=== PATIENT | male | born 1940 | race Caucasian/White ===

== ENCOUNTER 2017-06-02 14:25 | Emergency (ER) | payer MEDICARE, OTHER, SELFPAY ==
[2017-06-02 14:26] VITALS: BP 142/83; PULSE 65; RESP 16; TEMP 36.4; BMI 25.7
--- NOTE | 2017-06-02 15:11 | ED.RN ---
PT HAS RX FROM PCP FOR FLEXERIL 10MG AND IS TAKING ONE NOW FOR SPASMS.
--- NOTE | 2017-06-02 15:35 | ED.VISSUMM ---
- ER Visit Summary Date of Service: 06/02/17 Chief Complaint: Left lower back pain History of Present Illness: The patient is a 76 M no prior back surgery. Patient has had a prior AAA repair with endograft stent. He states that he is a [employer] is been working about 10 hours a day for last several weeks sitting up in a chair going over. Over the last several days he has developed left lower back pain at times radiates down his left leg. It is much worse with movement the left leg. He denies any weakness or numbness. He denies any fall or trauma. He denies any fever. He is on no blood thinners. He was seen at the [facility] urgent care today they put him on a muscle relaxant and discharged him. Denies any bowel or bladder incontinence. Physical Examination: Older male sitting upright in a hallway wheelchair. Vital signs are stable. He is afebrile. H EENT exam unremarkable neck nontender. Lungs clear to auscultation bilaterally. Heart regular rhythm no murmur. Abdomen soft nontender nondistended no giving or masses no pulsatile masses. He has absolutely no abdominal pain or complain of any abdominal pain. Extremities he is moving all 4. His increasing lower back pain on the left with movement of his left leg. Dorsi plantar flexion intact. No cauda equina. No saddle anesthesia. Upper extremities are neurovascular intact with 5 out of 5 motor strength. Clinically the patient has pain on palpation his left SI joint area. His thoracic and lumbar spine are nontender. There is no ecchymosis or bruising. No redness or warmth. Is a positive straight leg raise on the left. Dorsi and plantar flexion is intact in both lower extremities. Test Results: None Emergency Department Course and Treatment: Patient will be treated with I am morphine p.o. Zofran. Reassess. Clinically this does appear to be musculoskeletal. He is absolutely no abdominal pain or any abdominal tenderness do not think this is any do with his AAA. Repeat exam after IM morphine and Dilaudid he is feeling much better. He still has reproducible pain. His lower extremities remained neurovascularly intact there are no signs of cauda equina. He will be discharged to home on prednisone 40 mg a day for 1 week. [place] for pain. Ice to the area. Treatment Plan: Discharge to home with [place] for pain. Disposition: Discharged Impression: Acute left lower back pain secondary to acute sciatica This note was generated with [employer] dictation software. It may contain incorrect words, spelling, and punctuation that were not noted in review of the chart prior to signing ED Disposition - Plan for ED Patient: Chief Complaint: Back Referrals: Jared Cavazos MD [Primary Care Provider] -
[2017-06-02] MEDS: Ondansetron ODT 4 MG Tablet PO (15:43)
[2017-06-02] MEDS: morphine 10 MG/ML Syringe IM (15:43)
[2017-06-02] MEDS: HYDROmorphone 1 MG/ML Syringe IM (17:03)
--- NOTE | 2017-06-02 18:59 | ED.DEP ---
ED Disposition - Plan for ED Patient: Disposition: Home or Assisted Living Chief Complaint: Back Instructions: ED Sciatica Prescriptions: Hydrocodone Bitart/Apap 5-325 [[place] 5/325] 1 - 2 tab PO Q4H PRN PRN #30 tab PRN Reason: Pain Prednisone [Deltasone] 40 mg PO DAILY 7 Days tab Referrals: Jared Cavazos MD [Primary Care Provider] - 3-5 Days if not improving Additional Instructions: Ice to left back 5 times a day for 20-30 minutes each time. Prednisone 40 mg a day for the next 7 days that will decrease the inflammation. [place] for pain. 1-2 every 4-6 hours for pain as needed. Drink plenty of fluids and fruits, vegetables and fiber to prevent constipation. This should progressively improve over the next 3-5 days. If it is not getting better or getting worse follow-up your primary care physician or return to the ER if any bowel or bladder incontinence, unable to urinate or leg weakness.
--- NOTE | 2017-06-02 19:02 | DCINST.ED_ITS ---
ED Disposition - Plan for ED Patient: Disposition: Home or Assisted Living Chief Complaint: Back Instructions: ED Sciatica Prescriptions: Hydrocodone Bitart/Apap 5-325 [[place] 5/325] 1 - 2 tab PO Q4H PRN PRN #30 tab PRN Reason: Pain Prednisone [Deltasone] 40 mg PO DAILY 7 Days tab Referrals: Jared Cavazos MD [Primary Care Provider] - 3-5 Days if not improving Additional Instructions: Ice to left back 5 times a day for 20-30 minutes each time. Prednisone 40 mg a day for the next 7 days that will decrease the inflammation. [place] for pain. 1-2 every 4-6 hours for pain as needed. Drink plenty of fluids and fruits, vegetables and fiber to prevent constipation. This should progressively improve over the next 3-5 days. If it is not getting better or getting worse follow-up your primary care physician or return to the ER if any bowel or bladder incontinence, unable to urinate or leg weakness.
[2017-06-02] MEDS: predniSONE 20 MG Tablet 40 MG PO (19:15)
[2017-06-02 19:16] VITALS: BP 126/83; PULSE 93; RESP 16; O2SAT 95
== END 2017-06-02 19:22 | disposition home or self-care (01) ==
PROVIDERS: Emergency Provider Emergency Medicine; Family Provider Family Medicine; PCP Family Medicine
DX: M54.42 Lumbago with sciatica, left side (principal); I71.4 Abdominal aortic aneurysm, without rupture; Z95.828 Presence of other vascular implants and grafts; Z90.49 Acquired absence of other specified parts of digestive tract; Z79.82 Long term (current) use of aspirin; Z79.899 Other long term (current) drug therapy
CPT/HCPCS: 96372; 99283

== ENCOUNTER → 2017-08-28 09:44 | Outpatient (CLI) | payer MEDICARE, OTHER, SELFPAY ==
--- NOTE | 2017-08-28 09:56 | RAD_ITS ---
STUDY: X-RAY - LEFT SHOULDER REASON FOR EXAM: Male, 76 years old. Pain TECHNIQUE: 4 view(s) of the shoulder. COMPARISON: None. FINDINGS: Normal glenohumeral articulation. Normal acromioclavicular joint. Normal acromion. Normal humeral head and visualized proximal humerus. The soft tissue structures are unremarkable. Calcified granulomata are present at the left upper lobe of the lung. RAD/Shoulder min 2 Views IMPRESSION: Intact left shoulder Evidence of chronic granulomatous disease at the left upper lobe of the lung. Electronically Signed: Daniel Encarnacion MD at 10:41 EDT Tel , Service support ,
--- NOTE | 2017-08-28 09:56 | RAD_ITS ---
STUDY: X-RAY - RIGHT SHOULDER REASON FOR EXAM: Male, 76 years old. Pain TECHNIQUE: 4 view(s) of the shoulder. COMPARISON: None. FINDINGS: There are mild degenerative changes at the acromioclavicular joint. There is no fracture or dislocation. There is no osseous destruction. RAD/Shoulder min 2 Views IMPRESSION: Mild degenerative changes of the acromioclavicular joint Electronically Signed: Daniel Encarnacion MD at 10:39 EDT Tel , Service support ,
--- NOTE | 2017-08-28 09:56 | RAD_ITS ---
STUDY: X-RAY - PELVIS AND BILATERAL HIPS REASON FOR EXAM: Male, 76 years old. Pain TECHNIQUE: Radiological exam, hip, bilateral, with pelvis when performed; 2 views COMPARISON: None. FINDINGS: There is mild degenerative spurring at both hips. There is no fracture. There is no osseous distraction. There is no osteonecrosis. The joint spaces are well-maintained. The SI joints are intact. Surgical clips project at the groin, bilaterally. Arterial calcification. Aortoiliac endovascular stent graft. RAD/Hips B/L min 2 views w/ Pelvis IMPRESSION: Mild degenerative spurring at both hips Electronically Signed: Daniel Encarnacion MD at 10:38 EDT Tel , Service support ,
== END ==
PROVIDERS: Family Provider Family Medicine; PCP Family Medicine; Visit Provider Anesthesiology Pain Medicine
DX: M25.511 Pain in right shoulder (principal); M25.512 Pain in left shoulder; M25.551 Pain in right hip; M25.552 Pain in left hip; R10.30 Lower abdominal pain, unspecified; Z85.72 Personal history of non-Hodgkin lymphomas
CPT/HCPCS: 73030; 73521

== ENCOUNTER → 2017-09-09 10:44 | Outpatient (CLI) | payer MEDICARE, OTHER, SELFPAY ==
[2017-09-09 11:19] LABS: Absolute Lymphocyte Count 1.17 X10^3/ul (0.83-4.51); Absolute Neutrophil Count 5.3 X10^3/uL (2.0-7.7); Basophil# 0.02 X10^3/uL; Basophil% 0.3 % (0-1); Eosinophil# 0.14 X10^3/uL; Eosinophils% 1.8 % (0-5); Hematocrit 38.6 % (40-54); Lymphocyte # 1.17 X10^3/ul (4.0); Mean Corp Hgb Conc 33.7 g/gl (32-36); Mean Corpuscular Hgb 31.9 pg (27.0-32.0); Mean Corpuscular Volume 94.6 fL (80-94); Mean Platelet Vol. 9.9 fl (6.2-12.0); Monocyte# 1.13 X10^3/uL; Monocyte% 14.5 % (0-10); Neutrophil # 5.31 X10^3/uL (2.7-7.7); Neutrophil % 67.9 % (47-70); Platelet Count 191 K/mm3 (150-450); RBC Distribution Width CV 13.4 % (11.6-14.6); RBC Distribution Width SD 44.7 fl (35.1-43.9); Red Blood Count 4.08 M/mm3 (4.6-6.2); White Blood Count 7.8 K/mm3 (4.4-11.0)
[2017-09-09 11:20] LABS: POSITIVE COUNT NO; POSITIVE DIFFERENTIAL NO; POSITIVE MORPHOLOGY NO
[2017-09-09 11:42] LABS: ALB/GLOB Ratio 0.8 RATIO (0.9-2.4); AST(SGOT) 18 U/L (15-37); Alanine Aminotransfer ALT/SGPT 20 U/L (16-61); Albumin, Serum 3.4 g/dL (3.2-5.0); Alkaline Phosphatase 102 U/L (45-117); Anion Gap 5 (5-15); BUN 21 mg/dL (7-18); BUN/Creat Ratio 17.6 RATIO (10-20); Calcium,Total 8.9 mg/dL (8.5-10.1); Chloride 105 mmol/L (98-107); Creatinine, Serum 1.19 mg/dL (0.70-1.30); EST Glomerular Filtration Rate 63 mL/min (>60); Est Glom Filt Rate - Afr Amer 76 mL/min (>60); Glucose 71 mg/dL (74-106); LDH 147 U/L (87-241); Protein, Total 7.4 g/dL (6.4-8.2); Sodium Level 139 mmol/L (136-145)
[2017-09-11 03:07] LABS: Albumin 3.4 g/dL (2.9-4.4); Alpha-1-Globulins 0.3 g/dL (0.0-0.4); Alpha-2-Globulins 0.7 g/dL (0.4-1.0); Gamma Globulin 1.2 g/dL (0.4-1.8); Immunoglobulin A 139 mg/dL (61-437); Immunoglobulin G 606 mg/dL (700-1600); Immunoglobulin M 640 mg/dL (15-143); PROEL- TOTAL PROTEIN 6.6 g/dL (6.0-8.5)
[2017-09-11 09:24] LABS: Viscosity, Serum 1.7 rel.saline (1.6-1.9)
== END ==
PROVIDERS: Family Provider Family Medicine; PCP Family Medicine
DX: C88.0 Waldenstrom macroglobulinemia (principal)
CPT/HCPCS: 36415; 80053; 82784; 83615; 84165; 85025; 85810; 86334

== ENCOUNTER → 2017-09-25 09:28 | Outpatient (CLI) | payer MEDICARE, OTHER, SELFPAY ==
[2017-09-25 10:50] LABS: Hematocrit 40.6 % (40-54); Hemoglobin 13.9 g/dl (13.0-16.5); Mean Corp Hgb Conc 34.2 g/gl (32-36); Mean Corpuscular Hgb 32.4 pg (27.0-32.0); Mean Corpuscular Volume 94.6 fL (80-94); Mean Platelet Vol. 10.3 fl (6.2-12.0); Platelet Count 154 K/mm3 (150-450); RBC Distribution Width CV 13.8 % (11.6-14.6); RBC Distribution Width SD 45.9 fl (35.1-43.9); Red Blood Count 4.29 M/mm3 (4.6-6.2); Scan Indicated on CBC? Y/N NO; White Blood Count 7.1 K/mm3 (4.4-11.0)
[2017-09-25 11:05] LABS: BUN 23 mg/dL (7-18); Creatinine, Serum 1.15 mg/dL (0.70-1.30); Glucose 90 mg/dL (74-106)
[2017-09-25 11:06] LABS: Anion Gap 5 (5-15); Calcium,Total 8.7 mg/dL (8.5-10.1); Chloride 104 mmol/L (98-107); EST Glomerular Filtration Rate 66 mL/min (>60); Est Glom Filt Rate - Afr Amer 79 mL/min (>60); Sodium Level 140 mmol/L (136-145)
== END ==
PROVIDERS: Family Provider Family Medicine; PCP Family Medicine; Visit Provider Physician Assistant
DX: Z01.810 Encounter for preprocedural cardiovascular examination (principal); Z01.818 Encounter for other preprocedural examination
CPT/HCPCS: 36415; 80048; 85027; 93005

== ENCOUNTER → 2017-12-17 08:10 | Outpatient (CLI) | payer MEDICARE, OTHER, SELFPAY ==
[2017-12-17 09:26] LABS: Absolute Lymphocyte Count 0.95 X10^3/ul (0.83-4.51); Absolute Neutrophil Count 4.4 X10^3/uL (2.0-7.7); Basophil# 0.01 X10^3/uL; Basophil% 0.2 % (0-1); Eosinophil# 0.11 X10^3/uL; Eosinophils% 1.8 % (0-5); Hematocrit 37.6 % (40-54); Hemoglobin 12.7 g/dl (13.0-16.5); Lymphocyte # 0.95 X10^3/ul (4.0); Lymphocyte % 15.7 % (19-41); Mean Corp Hgb Conc 33.8 g/gl (32-36); Mean Corpuscular Hgb 31.9 pg (27.0-32.0); Mean Corpuscular Volume 94.5 fL (80-94); Mean Platelet Vol. 10.4 fl (6.2-12.0); Monocyte# 0.61 X10^3/uL; Neutrophil # 4.37 X10^3/uL (2.7-7.7); Platelet Count 185 K/mm3 (150-450); RBC Distribution Width CV 13.1 % (11.6-14.6); RBC Distribution Width SD 43.9 fl (35.1-43.9); Red Blood Count 3.98 M/mm3 (4.6-6.2); White Blood Count 6.1 K/mm3 (4.4-11.0)
[2017-12-17 09:28] LABS: POSITIVE COUNT NO; POSITIVE DIFFERENTIAL NO; POSITIVE MORPHOLOGY NO
[2017-12-17 09:51] LABS: ALB/GLOB Ratio 0.9 RATIO (0.9-2.4); AST(SGOT) 16 U/L (15-37); Alanine Aminotransfer ALT/SGPT 20 U/L (16-61); Albumin, Serum 3.2 g/dL (3.2-5.0); Alkaline Phosphatase 101 U/L (45-117); Anion Gap 8 (5-15); BUN 24 mg/dL (7-18); BUN/Creat Ratio 22.4 RATIO (10-20); Calcium,Total 8.5 mg/dL (8.5-10.1); Chloride 108 mmol/L (98-107); Creatinine, Serum 1.07 mg/dL (0.70-1.30); EST Glomerular Filtration Rate 71 mL/min (>60); Est Glom Filt Rate - Afr Amer 86 mL/min (>60); Globulin 3.5 g/dL (2.2-4.2); Glucose 95 mg/dL (74-106); LDH 194 U/L (87-241); Potassium 3.9 mmol/L (3.5-5.1); Protein, Total 6.7 g/dL (6.4-8.2); Sodium Level 143 mmol/L (136-145)
[2017-12-28 06:07] LABS: Albumin 3.4 g/dL (2.9-4.4); Alpha-1-Globulins 0.2 g/dL (0.0-0.4); Alpha-2-Globulins 0.6 g/dL (0.4-1.0); Immunoglobulin A 127 mg/dL (61-437); Immunoglobulin G 660 mg/dL (700-1600); Immunoglobulin M 582 mg/dL (15-143); PROEL- TOTAL PROTEIN 6.2 g/dL (6.0-8.5)
[2017-12-28 09:34] LABS: Viscosity, Serum 1.6 rel.saline (1.6-1.9)
== END ==
PROVIDERS: Family Provider Family Medicine; PCP Family Medicine
DX: C88.0 Waldenstrom macroglobulinemia (principal)
CPT/HCPCS: 36415; 80053; 82784; 83615; 84165; 85025; 85810; 86334

== ENCOUNTER → 2018-01-29 08:46 | Outpatient (CLI) | payer MEDICARE, OTHER, SELFPAY ==
--- NOTE | 2018-01-29 08:50 | MRI_ITS ---
STUDY: MRI LEFT SHOULDER REASON FOR EXAM: Male, 77 years old. Left shoulder pain. TECHNIQUE: Standardized fat and water weighted pulse sequences were obtained in all 3 orthogonal planes. COMPARISON: X-ray August 28, 2017 FINDINGS: Tendinosis of the supraspinatus with thickening and partial bursal surface fraying and tear, series 4 images through . There is infraspinatus tendinosis with tendon thickening, but without a demonstrated tendon tear. Normal subscapularis tendon. Normal teres minor tendon. Normal supraspinatus muscle. Normal infraspinatus muscle. Normal subscapularis muscle. Normal teres minor muscle. There is a small volume joint effusion of the glenohumeral joint. Normal humeral head and visualized proximal humerus. Normal biceps labral complex. Normal intracapsular long biceps tendon. Normal labrum. Normal capsulo- ligamentous complex. Normal rotator interval. 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 There is a Type II morphology (curved) acromion, with a neutral orientation. There is minimal fluid distention of the subacromial bursa, consistent with mild subacromial-subdeltoid bursitis. Normal visualized coracohumeral and coracoacromial ligaments. Normal quadrilateral space. Normal axillary space. Normal deltoid muscle. Normal trapezius muscle. MRI/Upper Ext Joint Only(Routine) IMPRESSION: Tendinosis with partial tear of the distal supraspinatus. No full-thickness rotator cuff tear. Acromioclavicular spurring with impingement. Subacromial subdeltoid bursitis. Electronically Signed: Carlos Jean MD at 12:14 EST , Service support ,
--- OUTSIDE RECORDS SUMMARY | 2018-05-04 08:58 | XMS RPT_ITS ---
:1940 Author Organization OHIP Support Name Relationship Address Phone RAMSES MONCADA Unavailable [address] + [place] [address] LONG COOK SAMSA Unavailable [address] + [place] [address] WELLS, JATINDER Unavailable Unavailable + [place] [address] ANTWAN, RAMSES Unavailable [address] + [place] [address] LONG COOK SAMSA Unavailable [address] + [place] [address] WELLS, JATINDER Unavailable Unavailable + [place] [address] ANTWAN, RAMSES Unavailable [address] + [place] [address] LONG COOK SAMSA Unavailable [address] + [place] [address] WELLS, JATINDER Unavailable . + UNKNOWN, U ANTWAN, RAMSES Unavailable [address] + [place] [address] LONG COOK SAMSA Unavailable [address] + [place] [address] WELLS, JATINDER Unavailable . + UNKNOWN, U ANTWAN, RAMSES Unavailable [address] + [place] [address] EDU CHRISTIANO Unavailable Unavailable Unavailable ANTWAN, RAMSES Unavailable [address] + [place] [address] LONG COOK SAMSA Unavailable [address] + [place] [address] WELLS, JATINDER Unavailable . + UNKNOWN, U ANTWAN, RAMSES Unavailable [address] + [place] [address] LONG COOK SAMSA Unavailable [address] + [place] [address] JATINDER SORENSEN Unavailable . + UNKNOWN, U ANTWAN, RAMSES Unavailable [address] + [place] [address] LONG COOK SAMSA Unavailable [address] + [place] [address] ANTWAN, RAMSES Unavailable [address] + [place] [address] LONG COOK SAMSA Unavailable [address] + [place] [address] ANTWAN, RAMSES Unavailable [address] + [place] [address] LONG COOK SAMSA Unavailable [address] + [place] [address] ANTWAN, RAMSES Unavailable [address] [phone] [place] [address] LONG COOK SAMSA Unavailable [address] + [place] [address] ANTWAN, RAMSES Unavailable [address] [phone] [place] [address] LONG COOK SAMSA Unavailable [address] + [place] [address] ANTWAN, RAMSES Unavailable [address] + [place] [address] EDU, CHRISTIANO Unavailable Unavailable Unavailable ANTWAN, RAMSES Unavailable [address] + [place] [address] EDU CHRISTIANO Unavailable Unavailable Unavailable Care Team Providers Name Role Phone Kaden Ortiz Attending Unavailable Jared Robertson Referring Unavailable ADA DAVIS Attending Unavailable Jared Robertson Primary Care Unavailable Chemo Juarez Attending Unavailable Jared Robertson Referring Unavailable Jared Robertson Primary Care Unavailable Jared Robertson Primary Care Unavailable Jared Rojas Attending Unavailable Jared Peñaloza Attending Unavailable Jared Peñaloza Referring Unavailable Jared Robertson Primary Care Unavailable ADA DAVIS Attending Unavailable Jared Robertson Primary Care Unavailable ADA DAVIS Referring Unavailable Chay Pink Attending Unavailable Jared Robertson Referring Unavailable Shadi Cesar Attending Unavailable Shadi Cesar Referring Unavailable Jared Robertson Primary Care Unavailable Jaxson Kenyon Attending Unavailable Shadi Cesar Referring Unavailable ADA DAVIS Attending Unavailable Marcelo, Jared Primary Care Unavailable ADA DAVIS Referring Unavailable Prebish, Karla MERCHANDISE PRESENTATION MANAGER-C Attending Unavailable Prebish, Karla MERCHANDISE PRESENTATION MANAGER-C Referring Unavailable Marcelo, Jared Primary Care Unavailable SUZETTE JIN Attending Unavailable SUZETTE JIN Referring Unavailable MARCELO, JARED A Primary Care Unavailable SZUETTE JIN Attending Unavailable SUZETTE JIN Referring Unavailable FAST, ARMIN A Primary Care Unavailable SUZETTE JIN Attending Unavailable FAST, ARMIN A Referring Unavailable FAST, ARMIN A Primary Care Unavailable MALIKA ROBERTSONREY A Attending Unavailable MARCELO, JARED A Referring Unavailable ALBA AQUINO ([facility]) Attending Unavailable MARCELO, JARED A Referring Unavailable MARCELO, JARED A Referring Unavailable JARED ROBERTSON A Attending Unavailable MARCELO JARED A Referring Unavailable HARRISON ROJAS Attending Unavailable Marcelo, Jared A Referring Unavailable Marcelo, Jared A Primary Care Unavailable HARRISON ROJAS Attending Unavailable Marcelo, Ajred A Referring Unavailable Marcelo, Jared A Primary Care Unavailable HARRISON ROJAS Attending Unavailable MARCELO JARED A Referring Unavailable PROBLEMS PROBLEMS DATE TYPE CONDITION / CODE ATTENDING STATUS SOURCE Active Disorder of arteries NA Active [facility] 8 and arterioles, Clinic Main unspecified / [facility] I77.9(ICD-10) Repository Active Other senior care [facility] 7 (current) drug therapy Clinic Main / Z79.899(ICD-10) [facility] Repository Active Gastro-esophageal NA [facility] 7 reflux disease without Clinic Main esophagitis / [place] K21.9(ICD-10) Repository Active 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, unspecified Clinic Main site / C83.00(ICD-10) [facility] Repository Active Disorder of prostate, NA [facility] 6 unspecified / Clinic Main N42.9(ICD-10) [facility] Rep[facility] Active Thrombocytopenia, NA Active [facility] 6 unspecified / Clinic Main D69.6(ICD-10) [facility] Repository Active Anemia, unspecified / NA Active [place] [address] D64.9(ICD-10) [facility] Main [facility] Repository Active Atherosclerotic heart NA Active [facility] 6 disease of shinnecock [facility] Main coronary artery [facility] without angina Repository pectoris / I25.10(ICD-10) Active Coronary NA Active [facility] 6 atherosclerosis due to [facility] Main lipid rich plaque / [place] I25.83(ICD-10) Repository Active Mixed hyperlipidemia / NA Active [facility] 6 E78.2(ICD-10) [facility] Main [facility] Repository Unknown Z01.810 - Encounter KostasJaxson dunn Active [facility] 8 for preprocedural [facility] examination / Repository Z01.810(ICD-10) Unknown 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 - [place]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 / [facility] C88.0(ICD-10) Hospital Repository Active Unknown / UNK(Unknown) HARRISON ROJAS Active [facility] 8 [facility] Repository Admitting Unknown / UNK(Unknown) HARRISON ROJAS Active [place] [address] diagnosis [facility] Repository Unknown M54.32 - [facility] side / [facility] M54.32(ICD-10) Hospital Repository Admitting GiovannitrSUZETTE Saavedra Active [place] [address] diagnosis macroglobulinemia [facility] ([facility]) / C88.0(ICD-10) [facility] Repository PROCEDURES PROCEDURES No Procedure Records FoundRESULTS RESULTS UPPER EXT JOINT Observed: 01/29/2018 Status: F Source: [place] ONLY(ROUTINE) 8:51 AM [facility] REPOSITORY [facility] Imaging Services [address] [place] [address] Upper Ext Joint Only(Routine) MR#: [id number] Acct: [id number] Name: CHRISTIANO SORENSEN Rep #: [id number] : 1940 M 77 From: Carlos Jean MD PCP: Jared Robertson MD Status: REG CLI Study: Upper Ext Joint Only(Routine) Date of Exam: 01/29/18 Exam# [id number] Ordering Dr: Karla Oneil MERCHANDISE PRESENTATION MANAGER-Jadon STUDY: MRI LEFT SHOULDER REASON FOR EXAM: Male, 77 years old. Left shoulder pain. TECHNIQUE: Standardized fat and water weighted pulse sequences were obtained in all 3 orthogonal planes. COMPARISON: X-ray August 28, 2017 FINDINGS: Tendinosis of the supraspinatus with thickening and partial bursal surface fraying and tear, series 4 images through . There is infraspinatus tendinosis with tendon thickening, but without a demonstrated tendon tear. Normal subscapularis tendon. Normal teres minor tendon. Normal supraspinatus muscle. Normal infraspinatus muscle. Normal subscapularis muscle. Normal teres minor muscle. There is a small volume joint effusion of the glenohumeral joint. Normal humeral head and visualized proximal humerus. Normal biceps labral complex. Normal intracapsular long biceps tendon. Normal labrum. Normal capsulo- ligamentous complex. Normal rotator interval. 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 There is a Type II morphology (curved) acromion, with a neutral orientation. There is minimal fluid distention of the subacromial bursa, consistent with mild subacromial-subdeltoid bursitis. Normal visualized coracohumeral and coracoacromial ligaments. Normal quadrilateral space. Normal axillary space. Normal deltoid muscle. Normal trapezius muscle. MRI/Upper Ext Joint Only(Routine) IMPRESSION: Tendinosis with partial tear of the distal supraspinatus. No full-thickness rotator cuff tear. Acromioclavicular spurring with impingement. Subacromial subdeltoid bursitis. Electronically Signed: Carlos Jean MD at 12:14 EST , Service support , CC: Jared Robertson MD; Karla ROSALES [facility] Fisheries Management Biologist: Signed CBC W/DIFF, AUTOMATED Collected: 12/17/2017 Status: F Source: [place] 8:30 AM [facility] REPOSITORY Order Comment: FOR CRITICALS CALL [phone] TYPE CODE TESTS RESULT OUT OF RANGE REFERENCE UNITS LAB L100.1000 4.4-11.0 K/mm3 Normal WBC 6.1 LAB L100.1200 4.6-6.2 M/mm3 Low RBC 3.98 LAB L100.1300 13.0-16.5 g/dl Low HGB 12.7 LAB L100.1400 40-54 % Low HCT 37.6 LAB L100.1500 80-94 fL High MCV 94.5 LAB L100.1600 27.0-32.0 pg Normal MCH 31.9 LAB L100.1700 32-36 g/gl Normal MCHC 33.8 LAB L100.1810 11.6-14.6 % Normal RDW CV 13.1 LAB L100.1820 35.1-43.9 fl Normal RDW SD 43.9 LAB L100.1900 150-450 K/mm3 Normal PLT 185 LAB L100.2000 6.2-12.0 fl Normal MPV 10.4 LAB L100.2100 47-70 % High NEUT% 72.0 LAB L100.2200 19-41 % Low LY% 15.7 LAB L100.2300 0-10 % Normal MONO% 10.0 LAB L100.2400 0-5 % Normal EO% 1.8 LAB L100.2500 0-1 % Normal BASO% 0.2 LAB L100.2550 0.0-0.9 % Normal IM GRAN % 0.300 Result Comment: IG% - Immature Granulocytes (promyelocytes, myelocytes and metamyelocytes) > 1% indicates that a LEFT SHIFT is Present. LAB L100.2620 2.0-7.7 X10 3/uL Normal Absolute Neut 4.4 LAB L100.2720 0.83-4.51 X10 3/ul Normal Absolute Lymph 0.95 Performed By: #### L100.0100 #### [facility] [place], [address] COMPREHENSIVE METABOLIC Collected: 12/17/2017 Status: F Source: [place] PROFIL 8:30 AM [facility] REPOSITORY Order Comment: FOR CRITICALS CALL [id number] Serial Specimen #1, #2 or #3? 1 TYPE CODE TESTS RESULT OUT OF RANGE REFERENCE UNITS LAB L501.0100 74-106 mg/dL Normal GLU 95 Result Comment: Slight Lipemia, Result may be falsely increased. Please note revised GLUCOSE reference range effective 2017. LAB L501.1000 7-18 mg/dL High BUN 24 Result Comment: Slight Lipemia, Result may be falsely increased. LAB L501.1100 0.70-1.30 mg/dL CREAT,SERUM Normal 1.07 Result Comment: Slight Lipemia, Result may be falsely increased. The validity of the calculated GFR AND GFRAA in patients over 70 years has not been determined. Clinical correlation is essential. LAB L501.1110 >60 mL/min Normal EST GFR 71 Result Comment: Non- GFR Calc LAB L501.1115 >60 mL/min Normal EST GFR - AA 86 Result Comment: GFR Calc LAB L501.1300 10-20 RATIO High BUN/CRE 22.4 LAB L501.1500 6.4-8.2 g/dL T Normal PROT 6.7 Result Comment: Slight Lipemia, Result may be falsely increased. LAB L501.1800 3.2-5.0 g/dL Normal ALB 3.2 LAB L501.1950 2.2-4.2 g/dL Normal GLOB 3.5 LAB L501.2000 0.9-2.4 RATIO Normal A/G 0.9 LAB L501.2200 8.5-10.1 mg/dL Normal CA 8.5 Result Comment: Slight Lipemia, Result may be falsely increased. LAB L501.4100 15-37 U/L Normal AST 16 Result Comment: Slight Lipemia, Result may be falsely increased. LAB L501.4305 45-117 U/L Normal ALK P 101 LAB L501.4405 16-61 U/L Normal ALT 20 Result Comment: Slight Lipemia, Result may be falsely increased. LAB L501.4600 0.20-1.00 mg/dL Normal T BILI 0.60 Result Comment: Slight Lipemia, Result may be falsely increased. LAB L501.5300 136-145 mmol/L Normal NA 143 LAB L501.5600 3.5-5.1 mmol/L Normal K 3.9 Result Comment: Slight Lipemia, Result may be falsely increased. LAB L501.5900 98-107 mmol/L High CL 108 LAB L501.6100 21.0-32.0 mmol/L Normal CO2 27.0 Result Comment: Slight Lipemia, Result may be falsely increased. LAB L501.6200 5-15 Normal GAP 8 Performed By: #### L500.4050, L504.2610 #### [facility] [address] [place], [address] LDH Collected: 12/17/2017 Status: F Source: [place] 8:30 AM [facility] REPOSITORY Order Comment: FOR CRITICALS CALL [phone] Serial Specimen #1, #2 or #3? 1 TYPE CODE TESTS RESULT OUT OF RANGE REFERENCE UNITS LAB L504.2610 87-241 U/L Normal LDH 194 Result Comment: Slight Lipemia, Result may be falsely increased. Performed By: #### L500.4050, L504.2610 #### [facility] [address] [place], [place], [address] YASIR + PROTEIN ELECT, Collected: 12/17/2017 Status: F Source: [place] SERUM 8:30 AM [facility] REPOSITORY Order Comment: Is Patient Fasting? N TYPE CODE TESTS RESULT OUT OF RANGE REFERENCE UNITS LAB L3100.3500 6.0-8.5 g/dL Normal PROTEIN,TOTAL 6.2 LAB L3200.6985 850-3814 mg/dL Low IMMUNO G 660 LAB L3200.1400 61-437 mg/dL Normal IMMUNO A 127 LAB L3200.1500 15-143 mg/dL High IMMUNOGL M 582 LAB L3200.1510 2.9-4.4 g/dL Normal ALBUMIN 3.4 LAB L3200.1520 0.0-0.4 g/dL Normal BVUYP-1-JRWR 0.2 LAB L3200.1530 0.4-1.0 g/dL Normal OTFLH-7-SPTB 0.6 LAB L3200.1540 0.7-1.3 g/dL Normal BETA GLOBULIN 0.9 LAB L3200.1550 0.4-1.8 g/dL Normal GAMMA GLOBULIN 1.0 LAB L3200.1560 Not Observed g/dL High M-SPIKE 0.6 LAB L3200.1570 2.2-3.9 g/dL Normal GLOBULIN, 2.8 TOTAL LAB L3200.1580 0.7-1.7 Normal A/G RATIO 1.3 LAB L3200.1590 . Normal YASIR RESULT,S Comment Result Comment: Immunofixation shows IgM monoclonal protein with kappa light chain specificity. LAB L3200.1594 . Normal NOTE: Comment Result Comment: Protein electrophoresis scan will follow via computer, mail, or mailroom supervisor delivery. Performed By: #### L3100.3425, L3410.1700 #### [facility] (refer to report for specific site) refer to report for address and phone number VISCOSITY, SERUM Collected: 12/17/2017 Status: F Source: [place] 8:30 AM [facility] REPOSITORY Order Comment: Is Patient Fasting? N TYPE CODE TESTS RESULT OUT OF RANGE REFERENCE UNITS LAB L3410.1700 1.6-1.9 rel.saline Normal 1.6 VISCOSITY,S4 861 Result Comment: Values above 2.7 may indicate paraproteinemia is present. This test was developed and its performance characteristics determined by [facility]. It has not been cleared or approved by the Food and Drug Administration. Performed at: [address] [id number] [place] Cutter: Juni Mac PhD, Phone: [phone] Performed at: [facility] [id number] [place] C[place]: Kennedi Vargas MD, Phone: [phone] Performed By: #### L3100.3425, L3410.1700 #### [facility] (refer to report for specific site) refer to report for address and phone number PROGRESS Observed: 11/18/2017 Status: COMPLETED Source: [place] 9:40 AM [facility] [place] REPOSITORY HNO ID: [id number] Author: Jared Robertson Service: (none) Author Type: Physician Type: Progress Notes Filed: 11/18/2017 9:36 PM Note Text: Medicare Yearly Visit Medical B eligibilty date 11/15/2005 Date of last exam na PAST MEDICAL HISTORY Diagnosis Date - AAA (abdominal aortic aneurysm) (HCC) - Abdominal pain, left upper quadrant - Allergic rhinitis, cause unspecified - Benign neoplasm of colon - Bronchitis, not specified as acute or chronic - Cardiac dysrhythmia, unspecified - Coronary atherosclerosis of unspecified type of vessel, shinnecock or graft - Degeneration of lumbar or lumbosacral intervertebral disc - Diaphragmatic hernia without mention of obstruction or gangrene - Enlargement of lymph nodes - Esophageal reflux - Hx of carotid stenosis - Impotence of organic origin - Irritable bowel syndrome - Lumbago - Other and unspecified hyperlipidemia - Other dyspnea and respiratory abnormality - Other malaise and fatigue - past medical history skin cancer forehead--unsure which kind - Psoriasis - Subclavian artery stenosis, right (HCC) 06/17/2017 US 06/16/2017 50-99% - Thrombocytopenia, unspecified (HCC) - Unspecified constipation PAST SURGICAL HISTORY Procedure Laterality Date - 2D ECHO (EXEP) 01/30/14 EF=60%, LVH, no valve abnormalities - COLONOSCOPY 09/21/2014 Dr. Bright, polyp, repeat 3 yrs - COLONOSCOPY W/BX 11/22/07 - ENDOSCOPY UPPER-EGD/M24 - LAP CHOLECYSTECT/CHOLANGIOGRAPHY 04-12-09 - PAST SURGICAL HISTORY OF 11/2014 AAA repair - PAST SURGICAL HISTORY OF 2015 both eyes cataract removal. - PAST SURGICAL HISTORY OF 10/13/2017 right shoulder surgery per [facility] - REPAIR UMBILICAL RENÉE,5+Y/O,REDUC 04-12-09 - STRESS TEST 02/27/2014 WNL Patient has no known allergies. Medications reviewed: Yes FAMILY HISTORY Problem Relation Age of Onset - Multiple Sclerosis Brother living - Colon Cancer Father 74 of metastatic brain CA - Diabetes Father - other (schiophrenia) Sister doing ok since e;ectroshock - Alzheimer's Disease Mother SOCIAL HISTORY: Social History Marital status: Single Spouse name: Years of education: Number of children: Social History Main Topics Smoking status: Former Smoker Packs/day: 1.00 Years: 8.00 Quit date: 02/15/1974 Smokeless tobacco: Never Used Comment: NO EXPOSURE TO 2ND HAND SMOKE Alcohol use: Yes Comment: occasionally Drug use: No Sexual activity: Yes Partners with: Female Christiano denies regular aerobic exercise. He watches his diet for sodium, low fat and low cholesterol most of the time. List of current specialists seen: Dr. Olga Dr, Dr Rojas [place] [facility] Live Planning discussed including patients advanced directive wishes: Yes I am willing to follow Christiano's advanced directives. Depression screen He in the past two weeks admits to having felt down due to the right shoulder pain Functional Ability/Safety Screen 1. Was the patient's timed Up and Go test unsteady or longer than 30 seconds? No 2. Does the patient need help with the phone, transportation, shopping,preparing meals, housework, laundry, medications or managing money? No 3. Does your home have rugs in the hallway(Y), lack of grab bars in the bathroom(Y), lack of handrails on the stairs or have poor lighting? No Hearing Evaluation: normal PHYSICAL EXAM BP 108/68 (BP Site: Right Arm, BP Position: Sitting, BP Cuff Size: Regular Adult) Pulse 76 Temp 36.6 ?C (97.9 ?F) (Tympanic) Resp 16 Ht 183 cm (6' 0.05) Wt 80.3 kg (177 lb) BMI 23.97 kg/m? Alert and oriented X 3: YES Body mass index is 23.97 kg/m?. See below ASSESSMENT/PLAN: 76 year old male The following prevention plan was discussed during the office visit and provided to the patient: See below Jared Robertson MD Chief Complaint Patient presents with: Physical: 6 month HPI Christiano Sorensen is a 76 year old male who presents here today for extensive exam. Patient with Hx of AAA s/p repair, subclavian artery stenosis and carotid artery disease recently seen Dr. Rojas for f/u and no concerns or changes. GERD, Hyperlipidemia, MLL as well as those reviewed and addressed below. Was seen by MERCHANDISE PRESENTATION MANAGER in the past few months for low back pain. Saw [facility] and was told he has disease but nothing at this time that was surgical. Was having right shoulder pain and had a MRI and felt to have a rotator cuff tear. Had surgery but once in no tears so joint space was cleaned up. Just got out of the sling and was just placed on gabapentin for pain and sleep and tramadol for pain. Now having left shoulder pain. 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 Past medical history, appointments, medications, allergies reviewed. Previous Medical History PAST MEDICAL HISTORY Diagnosis Date - AAA (abdominal aortic aneurysm) (HCC) - Abdominal pain, left upper quadrant - Allergic rhinitis, cause unspecified - Benign neoplasm of colon - Bronchitis, not specified as acute or chronic - Cardiac dysrhythmia, unspecified - Coronary atherosclerosis of unspecified type of vessel, shinnecock or graft - Degeneration of lumbar or lumbosacral intervertebral disc - Diaphragmatic hernia without mention of obstruction or gangrene - Enlargement of lymph nodes - Esophageal reflux - Hx of carotid stenosis - Impotence of organic origin - Irritable bowel syndrome - Lumbago - Other and unspecified hyperlipidemia - Other dyspnea and respiratory abnormality - Other malaise and fatigue - past medical history skin cancer forehead--unsure which kind - Psoriasis - Subclavian artery stenosis, right (HCC) 06/17/2017 US 06/16/2017 50-99% - Thrombocytopenia, unspecified (HCC) - Unspecified constipation Previous Surgical History PAST SURGICAL HISTORY Procedure Laterality Date - 2D ECHO (EXEP) 01/30/14 EF=60%, LVH, no valve abnormalities - COLONOSCOPY 09/21/2014 Dr. Bright, polyp, repeat 3 yrs - COLONOSCOPY W/BX 11/22/07 - ENDOSCOPY UPPER-EGD/M24 - LAP CHOLECYSTECT/CHOLANGIOGRAPHY 04-12-09 - PAST SURGICAL HISTORY OF 11/2014 AAA repair - PAST SURGICAL HISTORY OF 2015 both eyes cataract removal. - PAST SURGICAL HISTORY OF 10/13/2017 right shoulder surgery per [facility] - REPAIR UMBILICAL RENÉE,5+Y/O,REDUC 04-12-09 - STRESS TEST 02/27/2014 WNL Family History FAMILY HISTORY Problem Relation Age of Onset - Multiple Sclerosis Brother living - Colon Cancer Father 74 of metastatic brain CA - Diabetes Father - other (schiophrenia) Sister doing ok since e;ectroshock - Alzheimer's Disease Mother Patient Allergies ALLERGIES No Known Allergies Current Medications Current Outpatient Prescriptions on File Prior to Visit: metroNIDAZOLE 1 % gel Apply 1 application to affected area once daily. Location: face tamsulosin ER (FLOMAX) 0.4 mg cp24 Take 1 capsule by mouth once daily. gabapentin (NEURONTIN) 300 mg capsule Take 1 capsule by mouth twice daily as needed. cetirizine (ZYRTEC) 10 mg tablet Take 1 tablet by mouth once daily. MEDICATION, NON-DATABASE Takes med for digestive problems but pt doesn't remember name rosuvastatin (CRESTOR) 20 mg tablet Take 20 mg by mouth once daily. aspirin(ASPIR-81 81 MG TAB) One tabs every morning esomeprazole (NEXIUM) 20 mg capsule Take 1 capsule by mouth twice daily before meals. Per Gastro (Patient not taking: Reported on 11/18/2017 ) No current facility-administered medications on file prior to visit. Social History Social History Marital status: Single Spouse name: Years of education: Number of children: Social History Main Topics Smoking status: Former Smoker Packs/day: 1.00 Years: 8.00 Quit date: 02/15/1974 Smokeless tobacco: Never Used Comment: NO EXPOSURE TO 2ND HAND SMOKE Alcohol use: Yes Comment: occasionally Drug use: No Sexual activity: Yes Partners with: Female Review of Symptoms REVIEW OF SYSTEMS GENERAL: No malaise or fevers. No night sweats. Has loss 20 lbs in the last 4-5 months (potential side affect from the oxycodone he was on) Has stabilized in the past weak or two. HEENT: Negative for frequent or significant headaches, significant change in vision, significant vision problems, significant ear problems or hearing loss, nasal discharge, or nose bleeds, sore throat, difficulty swallowing, mouth lesions, hoarseness NECK: Negative for lumps, goiter, pain and significant neck swelling. occasional pain on the left side of neck RESPIRATORY: Negative for cough, hemoptysis, wheezing, COPD, dyspnea or shortness of breath CARDIOVASCULAR: Negative for chest pain, leg swelling, hypertension, CHF or palpitations GI: No vomiting, No heartburn or reflux symptoms as long as he takes his pepcid. Has breakthrough GERD on occasion. Diarrhea has been same and takes metamucil : No history of dysuria or blood. Has a slow stream and not taking the flomax daily. MUSCULOSKELETAL: see HPI SKIN: Negative for lesions, rash, and itching PSYCH: see medicare section. Not sleeping well HEMATOLOGY/LYMPHOLOGY: Negative for prolonged bleeding, bruising easily or swollen nodes ENDOCRINE: Negative for cold or heat intolerance, polyuria, polydipsia and goiter NEURO: No history of frequent headaches, syncope, paralysis, seizures. Has a tremor in the left hand with witting and has been slightly worse. EXAM: BP 108/68 (BP Site: Right Arm, BP Position: Sitting, BP Cuff Size: Regular Adult) Pulse 76 Temp 36.6 ?C (97.9 ?F) (Tympanic) Resp 16 Ht 183 cm (6' 0.05) Wt 80.3 kg (177 lb) BMI 23.97 kg/m? General Appearance: Well appearing, alert, in no acute distress, well-hydrated, well nourished.. Skin: Skin color, texture, turgor normal, no suspicious rashes or lesions. Head: Normocephalic, no masses, lesions, tenderness or abnormalities. Eyes: Anicteric sclera. Pupils are equally round and reactive to light. Extraocular movements are intact. . Ears: External ears normal, canals clear. Nose/Sinuses: Nares normal, septum midline, mucosa normal, no drainage or sinus tenderness. Oropharynx: Lips, mucosa, and tongue normal, teeth and gums normal, oropharynx normal. Neck: Supple, no adenopathy; thyroid symmetric, normal size, no bruits. Lungs: Lungs clear to auscultation. No wheezing, rhonchi, rales. Heart: RRR without murmur, gallop, or rubs. No ectopy. Abdomen: Normal abdominal exam, Abdomen soft, non-tender. Bowel sounds normal. No masses, organomegaly. Extremities: No deformities, edema, skin discoloration. Musculoskeletal: Muscular strength intact, No joint swelling, deformity Has decreased ROM in the left shoulder with pain on abduction and forward flexion Peripheral Pulses: Normal. Neurologic: Gait normal. Reflexes normal and symmetric. Sensation to light touch and crainal nerves 2-12 intact.. Genitalia: Normal, Penis normal. No urethral discharge. Scrotum normal to palpation. No hernia. Foreskin retractable. Rectal: Deferred exam per patient request. Health Maintenance List INFLUENZA(1) due on 10/16/2017 STATIN MED ADHERENCE due on 12/16/2017 ANNUAL PCP TEAM CHRONIC DISEASE VISIT due on 06/08/2018 LDL CHOLESTEROL due on 11/15/2018 COLORECTAL CANCER SCREENING,SEE MODIFIER due on 09/22/2019 DTAP,TDAP,TD(2 - Td) due on 10/31/2020 DIABETES SCREEN due on 11/15/2020 LIPID SCREEN due on 11/15/2022 ADULT PREVNAR-13 Completed PNEUMOVAX AGE 65 AND OVER WITH 5YR LOOKBACK Completed Data reviewed Component Latest Ref Rng AND Units 11/07/2016 11/26/2016 09/09/2017 11/15/2017 WBC 3.70 - 11.00 k/uL 7.8 8.12 RBC 4.20 - 6.00 m/uL 4.08 4.32 Hemoglobin 13.0 - 17.0 g/dL 13.8 Hematocrit 39.0 - 51.0 % 41.6 MCV 80.0 - 100.0 fL 94.6 96.3 MCH 26.0 - 34.0 pG 31.9 31.9 MCHC 30.5 - 36.0 g/dL 33.7 33.2 RDW-CV 11.5 - 15.0 % 13.2 Platelet Count 150 - 400 k/uL 231 MPV 9.0 - 12.7 fL 9.9 10.2 Neut% % 74.9 Abs Neut (ANC) 1.45 - 7.50 k/uL 6.07 Lymph% % 14.5 Abs Lymph 1.00 - 4.00 k/uL 1.18 Grimes% % 7.6 Abs Grimes <0.87 k/uL 0.62 Eosin% % 2.6 Abs Eosin <0.46 k/uL 0.21 Baso% % 0.4 Abs Baso <0.11 k/uL 0.03 Nucleated Reds 0 /100 WBC 0.0 Absolute nRBC <0.01 k/uL <0.01 Diff Type Auto Diff Protein, Total 6.3 - 8.0 g/dL 6.8 Albumin 3.9 - 4.9 g/dL 3.4 4.2 Calcium 8.5 - 10.2 mg/dL 9.7 Bilirubin, Total 0.2 - 1.3 mg/dL 0.8 Alkaline Phosphatase 38 - 113 U/L 92 AST 14 - 40 U/L 18 16 Glucose 74 - 99 mg/dL 71 (A) 109 (H) BUN 9 - 24 mg/dL 21 (A) 18 Creatinine 0.73 - 1.22 mg/dL 1.19 1.02 Sodium 136 - 144 mmol/L 139 Potassium 3.7 - 5.1 mmol/L 4.0 Chloride 97 - 105 mmol/L 105 100 CO2 22 - 30 mmol/L 29.0 28 Anion Gap 9 - 18 mmol/L 11 ALT 10 - 54 U/L 11 eGFR- >60 eGFR-All Other Races . >60 NA 136 - 145 mmol/L 139 K 3.5 - 5.1 mmol/L 4.0 GFR mL/MIN 63 GFR AFR AMER mL/MIN 76 Total Protein 6.4 - 8.2 gm/dL 7.4 Calcium 8.5 - 10.1 mg/dL 8.9 Bili Total 0.2 - 1 mg/dL 0.70 ALT (SGPT) 12 - 78 U/L 20 Alk Phos Total 45 - 117 U/L 102 HGB 14 - 16.5 g/dL 13.0 (A) HCT 39 - 55 % 38.6 (A) Platelet 140 - 440 K/uL 191 NEUT % 40 - 74 % 67.9 LYMPH % 20 - 30 % 15.0 (A) MONO % 2 - 8 % 14.5 (A) EOS % 1 - 3 % 1.8 BASO % 0 - 1.5 % 0.3 NEUT ABS 1.9 - 8 K/uL 5.3 LYMPH ABS 1.2 - 4 K/uL 1.17 (A) Color Yellow Yellow Clarity Clear Clear Glucose, Urine Negative mg/dL Negative Bilirubin, Urine Negative Negative Ketones, Urine Negative Negative Specific [place], Ur 1.005 - 1.030 1.018 Hemoglobin/Blood,Ur Negative Negative pH, Urine 4.5 - 8.0 5.0 Protein, Urine Negative mg/dL Negative Urobilinogen Normal Normal Nitrites Negative Negative Leukest Negative Negative Comments SEE COMMENT Urine Petey Comment SEE COMMENT WBC, Urine 0 - 5 /HPF 0-5 RBC, Urine 0 - 3 /HPF 0-3 Triglyceride <150 mg/dL 94 94 Cholesterol, Total <200 mg/dL 128 179 HDL Cholesterol >39 mg/dL 45 (L) 53 VLDL Cholesterol <30 mg/dL 19 19 LDL Cholesterol <100 mg/dL 64 107 (H) Fasting Time hrs 12 12 TC:HDL Ratio <5.10 2.84 3.38 LDL:HDL Ratio <2.54 1.42 2.02 Non HDL Cholesterol <130 mg/dL 83 (L) 126 PSA 0.00 - 2.59 ng/mL 0.31 0.62 Magnesium 1.7 - 2.3 mg/dL 2.0 2.1 A/P ASSESSMENT/PLAN: 1. Medicare annual wellness visit, subsequent - ICD9: V70.0, ICD10: Z00.00 (primary diagnosis) - Recommended regular aerobic exercise. - Follow up for annual exam in one year. - Patient will be getting flu vaccine in early Nov. Asked to let me know. 2. Mixed hyperlipidemia - ICD9: 272.2, ICD10: E78.2 - good control - Encouraged following a low fat, low cholesterol diet. - Discussed the benefits of regular aerobic exercise and weight loss. - Encouraged following a low carbohydrate, healthy oil intake diet. - Continue current therapy. 3. 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 - ICD9: 414.3, ICD10: I25.10, I25.83 - clinically stable no changes. 4. GERD without esophagitis - ICD9: 530.81, ICD10: K21.9 - Continue treatment with Pepcid 20 mg BID 5. Chronic bronchitis, unspecified chronic bronchitis type (HCC) - ICD9: 491.9, ICD10: J42 - Clinically stable no changes. 6. Abdominal aortic aneurysm (AAA) without rupture (HCC) - ICD9: 441.4, ICD10: I71.4 - Stable cont f/u with vascular 7. Bilateral carotid artery disease, unspecified type (HCC) - ICD9: 447.9, ICD10: I77.9 - As per #6 8. Subclavian artery stenosis, right (HCC) - ICD9: 447.1, ICD10: I77.1 - as per #6 9. Thrombocytopenia (HCC) - ICD9: 287.5, ICD10: D69.6 - Stable cont f/u with oncology 10. 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 Waldenstrom's macroglobulinemia (HCC) - ICD9: 273.3, ICD10: C88.0 - per #9 12. Irritable bowel syndrome without diarrhea - ICD9: 564.1, ICD10: K58.9 - No new issues. Cont metamucil 13. Primary insomnia - ICD9: 307.42, ICD10: F51.01 Will try - ZOLPIDEM 5 MG TABLET 14. Benign non-nodular prostatic hyperplasia without lower urinary tract symptoms - ICD9: 600.90, ICD10: N40.0 - Advised to take the flomax daily. - TAMSULOSIN 0.4 MG CAPSULE 15. Erectile dysfunction, unspecified erectile dysfunction type - ICD9: 607.84, ICD10: N52.9 - Cont cialis as needed. 16. Acute pain of both shoulders - ICD9: 719.41, ICD10: M25.511, M25.512 - Cont f/u with Ortho, Dr. Adame. Signed Prescriptions Disp Refills tamsulosin ER (FLOMAX) 0.4 mg cap 90 capsule 1 Sig: Take 1 capsule by mouth once daily. JEFF: No zolpidem (AMBIEN) 5 mg tablet 30 tablet 2 Sig: Take 1 tablet by mouth at bedtime as needed for up to 90 days. LISA Class: C-IV F/u 6 months routine check FLP, A1c BMP prior Jared Robertson MD CNOV Observed: 11/18/2017 Status: COMPLETED Source: [place] 8:20 AM [facility] REPOSITORY Office Visit (FAMPWS) CHRISTIANO SORENSEN ([id number]) 1940 M Date Time Provider Department 11/18/17 8:20 AM [facility] During your visit today, we recorded the following information about you: Temperature Pulse Respiration Blood pressure 97.9 degrees 76/minute 16/minute 108/68 Weight Height 80.3 kg 1.83 m Jared Robertson MD 11/18/2017 9:36 PM Signed Medicare Yearly Visit Medical B eligibilty date 11/15/2005 Date of last exam na PAST MEDICAL HISTORY Diagnosis Date - AAA (abdominal aortic aneurysm) (HCC) - Abdominal pain, left upper quadrant - Allergic rhinitis, cause unspecified - Benign neoplasm of colon - Bronchitis, not specified as acute or chronic - Cardiac dysrhythmia, unspecified - Coronary atherosclerosis of unspecified type of vessel, shinnecock or graft - Degeneration of lumbar or lumbosacral intervertebral disc - Diaphragmatic hernia without mention of obstruction or gangrene - Enlargement of lymph nodes - Esophageal reflux - Hx of carotid stenosis - Impotence of organic origin - Irritable bowel syndrome - Lumbago - Other and unspecified hyperlipidemia - Other dyspnea and respiratory abnormality - Other malaise and fatigue - past medical history skin cancer forehead--unsure which kind - Psoriasis - Subclavian artery stenosis, right (HCC) 06/17/2017 US 06/16/2017 50-99% - Thrombocytopenia, unspecified (HCC) - Unspecified constipation PAST SURGICAL HISTORY Procedure Laterality Date - 2D ECHO (EXEP) 01/30/14 EF=60%, LVH, no valve abnormalities - COLONOSCOPY 09/21/2014 Dr. Bright, polyp, repeat 3 yrs - COLONOSCOPY W/BX 11/22/07 - ENDOSCOPY UPPER-EGD/M24 - LAP CHOLECYSTECT/CHOLANGIOGRAPHY 04-12-09 - PAST SURGICAL HISTORY OF 11/2014 AAA repair - PAST SURGICAL HISTORY OF 2015 both eyes cataract removal. - PAST SURGICAL HISTORY OF 10/13/2017 right shoulder surgery per [facility] - REPAIR UMBILICAL RENÉE,5+Y/O,REDUC 04-12-09 - STRESS TEST 02/27/2014 WNL Patient has no known allergies. Medications reviewed: Yes FAMILY HISTORY Problem Relation Age of Onset - Multiple Sclerosis Brother living - Colon Cancer Father 74 of metastatic brain CA - Diabetes Father - other (schiophrenia) Sister doing ok since e;ectroshock - Alzheimer's Disease Mother SOCIAL HISTORY: Social History Marital status: Single Spouse name: Years of education: Number of children: Social History Main Topics Smoking status: Former Smoker Packs/day: 1.00 Years: 8.00 Quit date: 02/15/1974 Smokeless tobacco: Never Used Comment: NO EXPOSURE TO 2ND HAND SMOKE Alcohol use: Yes Comment: occasionally Drug use: No Sexual activity: Yes Partners with: Female Christiano denies regular aerobic exercise. He watches his diet for sodium, low fat and low cholesterol most of the time. List of current specialists seen: Dr. Olga Dr, Dr Bob, Ashish End of Live Planning discussed including patients advanced directive wishes: Yes I am willing to follow Christiano's advanced directives. Depression screen He in the past two weeks admits to having felt down due to the right shoulder pain Functional Ability/Safety Screen 1. Was the patient's timed Up and Go test unsteady or longer than 30 seconds? No 2. Does the patient need help with the phone, transportation, shopping,preparing meals, housework, laundry, medications or managing money? No 3. Does your home have rugs in the hallway(Y), lack of grab bars in the bathroom(Y), lack of handrails on the stairs or have poor lighting? No Hearing Evaluation: normal PHYSICAL EXAM BP 108/68 (BP Site: Right Arm, BP Position: Sitting, BP Cuff Size: Regular Adult) Pulse 76 Temp 36.6 ?C (97.9 ?F) (Tympanic) Resp 16 Ht 183 cm (6' 0.05) Wt 80.3 kg (177 lb) BMI 23.97 kg/m? Alert and oriented X 3: YES Body mass index is 23.97 kg/m?. See below ASSESSMENT/PLAN: 76 year old male The following prevention plan was discussed during the office visit and provided to the patient: See below Jared Robertson MD Chief Complaint Patient presents with: Physical: 6 month HPI Christiano Sorensen is a 76 year old male who presents here today for extensive exam. Patient with Hx of AAA s/p repair, subclavian artery stenosis and carotid artery disease recently seen Dr. Rojas for f/u and no concerns or changes. GERD, Hyperlipidemia, MLL as well as those reviewed and addressed below. Was seen by [facility] in the past few months for low back pain. Saw Maxine alvarado and was told he has disease but nothing at this time that was surgical. Was having right shoulder pain and had a MRI and felt to have a rotator cuff tear. Had surgery but once in no tears so joint space was cleaned up. Just got out of the sling and was just placed on gabapentin for pain and sleep and tramadol for pain. Now having left shoulder pain. 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 Past medical history, appointments, medications, allergies reviewed. Previous Medical History PAST MEDICAL HISTORY Diagnosis Date - AAA (abdominal aortic aneurysm) (HCC) - Abdominal pain, left upper quadrant - Allergic rhinitis, cause unspecified - Benign neoplasm of colon - Bronchitis, not specified as acute or chronic - Cardiac dysrhythmia, unspecified - Coronary atherosclerosis of unspecified type of vessel, shinnecock or graft - Degeneration of lumbar or lumbosacral intervertebral disc - Diaphragmatic hernia without mention of obstruction or gangrene - Enlargement of lymph nodes - Esophageal reflux - Hx of carotid stenosis - Impotence of organic origin - Irritable bowel syndrome - Lumbago - Other and unspecified hyperlipidemia - Other dyspnea and respiratory abnormality - Other malaise and fatigue - past medical history skin cancer forehead--unsure which kind - Psoriasis - Subclavian artery stenosis, right (HCC) 06/17/2017 US 06/16/2017 50-99% - Thrombocytopenia, unspecified (HCC) - Unspecified constipation Previous Surgical History PAST SURGICAL HISTORY Procedure Laterality Date - 2D ECHO (EXEP) 01/30/14 EF=60%, LVH, no valve abnormalities - COLONOSCOPY 09/21/2014 Dr. Bright, polyp, repeat 3 yrs - COLONOSCOPY W/BX 11/22/07 - ENDOSCOPY UPPER-EGD/M24 - LAP CHOLECYSTECT/CHOLANGIOGRAPHY 04-12-09 - PAST SURGICAL HISTORY OF 11/2014 AAA repair - PAST SURGICAL HISTORY OF 2015 both eyes cataract removal. - PAST SURGICAL HISTORY OF 10/13/2017 right shoulder surgery per [facility] - REPAIR UMBILICAL RENÉE,5+Y/O,REDUC 04-12-09 - STRESS TEST 02/27/2014 WNL Family History FAMILY HISTORY Problem Relation Age of Onset - Multiple Sclerosis Brother living - Colon Cancer Father 74 of metastatic brain CA - Diabetes Father - other (schiophrenia) Sister doing ok since e;ectroshock - Alzheimer's Disease Mother Patient Allergies ALLERGIES No Known Allergies Current Medications Current Outpatient Prescriptions on File Prior to Visit: metroNIDAZOLE 1 % gel Apply 1 application to affected area once daily. Location: face tamsulosin ER (FLOMAX) 0.4 mg cp24 Take 1 capsule by mouth once daily. gabapentin (NEURONTIN) 300 mg capsule Take 1 capsule by mouth twice daily as needed. cetirizine (ZYRTEC) 10 mg tablet Take 1 tablet by mouth once daily. MEDICATION, NON-DATABASE Takes med for digestive problems but pt doesn't remember name rosuvastatin (CRESTOR) 20 mg tablet Take 20 mg by mouth once daily. aspirin(ASPIR-81 81 MG TAB) One tabs every morning esomeprazole (NEXIUM) 20 mg capsule Take 1 capsule by mouth twice daily before meals. Per Gastro (Patient not taking: Reported on 11/18/2017 ) No current facility-administered medications on file prior to visit. Social History Social History Marital status: Single Spouse name: Years of education: Number of children: Social History Main Topics Smoking status: Former Smoker Packs/day: 1.00 Years: 8.00 Quit date: 02/15/1974 Smokeless tobacco: Never Used Comment: NO EXPOSURE TO 2ND HAND SMOKE Alcohol use: Yes Comment: occasionally Drug use: No Sexual activity: Yes Partners with: Female Review of Symptoms REVIEW OF SYSTEMS GENERAL: No malaise or fevers. No night sweats. Has loss 20 lbs in the last 4-5 months (potential side affect from the oxycodone he was on) Has stabilized in the past weak or two. HEENT: Negative for frequent or significant headaches, significant change in vision, significant vision problems, significant ear problems or hearing loss, nasal discharge, or nose bleeds, sore throat, difficulty swallowing, mouth lesions, hoarseness NECK: Negative for lumps, goiter, pain and significant neck swelling. occasional pain on the left side of neck RESPIRATORY: Negative for cough, hemoptysis, wheezing, COPD, dyspnea or shortness of breath CARDIOVASCULAR: Negative for chest pain, leg swelling, hypertension, CHF or palpitations GI: No vomiting, No heartburn or reflux symptoms as long as he takes his pepcid. Has breakthrough GERD on occasion. Diarrhea has been same and takes metamucil : No history of dysuria or blood. Has a slow stream and not taking the flomax daily. MUSCULOSKELETAL: see HPI SKIN: Negative for lesions, rash, and itching PSYCH: see medicare section. Not sleeping well HEMATOLOGY/LYMPHOLOGY: Negative for prolonged bleeding, bruising easily or swollen nodes ENDOCRINE: Negative for cold or heat intolerance, polyuria, polydipsia and goiter NEURO: No history of frequent headaches, syncope, paralysis, seizures. Has a tremor in the left hand with witting and has been slightly worse. EXAM: BP 108/68 (BP Site: Right Arm, BP Position: Sitting, BP Cuff Size: Regular Adult) Pulse 76 Temp 36.6 ?C (97.9 ?F) (Tympanic) Resp 16 Ht 183 cm (6' 0.05) Wt 80.3 kg (177 lb) BMI 23.97 kg/m? General Appearance: Well appearing, alert, in no acute distress, well-hydrated, well nourished.. Skin: Skin color, texture, turgor normal, no suspicious rashes or lesions. Head: Normocephalic, no masses, lesions, tenderness or abnormalities. Eyes: Anicteric sclera. Pupils are equally round and reactive to light. Extraocular movements are intact. . Ears: External ears normal, canals clear. Nose/Sinuses: Nares normal, septum midline, mucosa normal, no drainage or sinus tenderness. Oropharynx: Lips, mucosa, and tongue normal, teeth and gums normal, oropharynx normal. Neck: Supple, no adenopathy; thyroid symmetric, normal size, no bruits. Lungs: Lungs clear to auscultation. No wheezing, rhonchi, rales. Heart: RRR without murmur, gallop, or rubs. No ectopy. Abdomen: Normal abdominal exam, Abdomen soft, non-tender. Bowel sounds normal. No masses, organomegaly. Extremities: No deformities, edema, skin discoloration. Musculoskeletal: Muscular strength intact, No joint swelling, deformity Has decreased ROM in the left shoulder with pain on abduction and forward flexion Peripheral Pulses: Normal. Neurologic: Gait normal. Reflexes normal and symmetric. Sensation to light touch and crainal nerves 2-12 intact.. Genitalia: Normal, Penis normal. No urethral discharge. Scrotum normal to palpation. No hernia. Foreskin retractable. Rectal: Deferred exam per patient request. Health Maintenance List INFLUENZA(1) due on 10/16/2017 STATIN MED ADHERENCE due on 12/16/2017 ANNUAL PCP TEAM CHRONIC DISEASE VISIT due on 06/08/2018 LDL CHOLESTEROL due on 11/15/2018 COLORECTAL CANCER SCREENING,SEE MODIFIER due on 09/22/2019 DTAP,TDAP,TD(2 - Td) due on 10/31/2020 DIABETES SCREEN due on 11/15/2020 LIPID SCREEN due on 11/15/2022 ADULT PREVNAR-13 Completed PNEUMOVAX AGE 65 AND OVER WITH 5YR LOOKBACK Completed Data reviewed Component Latest Ref Rng AND Units 11/07/2016 11/26/2016 09/09/2017 11/15/2017 WBC 3.70 - 11.00 k/uL 7.8 8.12 RBC 4.20 - 6.00 m/uL 4.08 4.32 Hemoglobin 13.0 - 17.0 g/dL 13.8 Hematocrit 39.0 - 51.0 % 41.6 MCV 80.0 - 100.0 fL 94.6 96.3 MCH 26.0 - 34.0 pG 31.9 31.9 MCHC 30.5 - 36.0 g/dL 33.7 33.2 RDW-CV 11.5 - 15.0 % 13.2 Platelet Count 150 - 400 k/uL 231 MPV 9.0 - 12.7 fL 9.9 10.2 Neut% % 74.9 Abs Neut (ANC) 1.45 - 7.50 k/uL 6.07 Lymph% % 14.5 Abs Lymph 1.00 - 4.00 k/uL 1.18 Grimes% % 7.6 Abs [place] <0.87 k/uL 0.62 Eosin% % 2.6 Abs Eosin <0.46 k/uL 0.21 Baso% % 0.4 Abs Baso <0.11 k/uL 0.03 Nucleated Reds 0 /100 WBC 0.0 Absolute nRBC <0.01 k/uL <0.01 Diff Type Auto Diff Protein, Total 6.3 - 8.0 g/dL 6.8 Albumin 3.9 - 4.9 g/dL 3.4 4.2 Calcium 8.5 - 10.2 mg/dL 9.7 Bilirubin, Total 0.2 - 1.3 mg/dL 0.8 Alkaline Phosphatase 38 - 113 U/L 92 AST 14 - 40 U/L 18 16 Glucose 74 - 99 mg/dL 71 (A) 109 (H) BUN 9 - 24 mg/dL 21 (A) 18 Creatinine 0.73 - 1.22 mg/dL 1.19 1.02 Sodium 136 - 144 mmol/L 139 Potassium 3.7 - 5.1 mmol/L 4.0 Chloride 97 - 105 mmol/L 105 100 CO2 22 - 30 mmol/L 29.0 28 Anion Gap 9 - 18 mmol/L 11 ALT 10 - 54 U/L 11 eGFR- >60 eGFR-All Other Races . >60 NA 136 - 145 mmol/L 139 K 3.5 - 5.1 mmol/L 4.0 GFR mL/MIN 63 GFR AFR AMER mL/MIN 76 Total Protein 6.4 - 8.2 gm/dL 7.4 Calcium 8.5 - 10.1 mg/dL 8.9 Bili Total 0.2 - 1 mg/dL 0.70 ALT (SGPT) 12 - 78 U/L 20 Alk Phos Total 45 - 117 U/L 102 HGB 14 - 16.5 g/dL 13.0 (A) HCT 39 - 55 % 38.6 (A) Platelet 140 - 440 K/uL 191 NEUT % 40 - 74 % 67.9 LYMPH % 20 - 30 % 15.0 (A) MONO % 2 - 8 % 14.5 (A) EOS % 1 - 3 % 1.8 BASO % 0 - 1.5 % 0.3 NEUT ABS 1.9 - 8 K/uL 5.3 LYMPH ABS 1.2 - 4 K/uL 1.17 (A) Color Yellow Yellow Clarity Clear Clear Glucose, Urine Negative mg/dL Negative Bilirubin, Urine Negative Negative Ketones, Urine Negative Negative Specific [place], Ur 1.005 - 1.030 1.018 Hemoglobin/Blood,Ur Negative Negative pH, Urine 4.5 - 8.0 5.0 Protein, Urine Negative mg/dL Negative Urobilinogen Normal Normal Nitrites Negative Negative Leukest Negative Negative Comments SEE COMMENT Urine Petey Comment SEE COMMENT WBC, Urine 0 - 5 /HPF 0-5 RBC, Urine 0 - 3 /HPF 0-3 Triglyceride <150 mg/dL 94 94 Cholesterol, Total <200 mg/dL 128 179 HDL Cholesterol >39 mg/dL 45 (L) 53 VLDL Cholesterol <30 mg/dL 19 19 LDL Cholesterol <100 mg/dL 64 107 (H) Fasting Time hrs 12 12 TC:HDL Ratio <5.10 2.84 3.38 LDL:HDL Ratio <2.54 1.42 2.02 Non HDL Cholesterol <130 mg/dL 83 (L) 126 PSA 0.00 - 2.59 ng/mL 0.31 0.62 Magnesium 1.7 - 2.3 mg/dL 2.0 2.1 A/P ASSESSMENT/PLAN: 1. Medicare annual wellness visit, subsequent - ICD9: V70.0, ICD10: Z00.00 (primary diagnosis) - Recommended regular aerobic exercise. - Follow up for annual exam in one year. - Patient will be getting flu vaccine in early Dec. Asked to let me know. 2. Mixed hyperlipidemia - ICD9: 272.2, ICD10: E78.2 - good control - Encouraged following a low fat, low cholesterol diet. - Discussed the benefits of regular aerobic exercise and weight loss. - Encouraged following a low carbohydrate, healthy oil intake diet. - Continue current therapy. 3. 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 - ICD9: 414.3, ICD10: I25.10, I25.83 - clinically stable no changes. 4. GERD without esophagitis - ICD9: 530.81, ICD10: K21.9 - Continue treatment with Pepcid 20 mg BID 5. Chronic bronchitis, unspecified chronic bronchitis type (HCC) - ICD9: 491.9, ICD10: J42 - Clinically stable no changes. 6. Abdominal aortic aneurysm (AAA) without rupture (HCC) - ICD9: 441.4, ICD10: I71.4 - Stable cont f/u with vascular 7. Bilateral carotid artery disease, unspecified type (HCC) - ICD9: 447.9, ICD10: I77.9 - As per #6 8. Subclavian artery stenosis, right (HCC) - ICD9: 447.1, ICD10: I77.1 - as per #6 9. Thrombocytopenia (HCC) - ICD9: 287.5, ICD10: D69.6 - Stable cont f/u with oncology 10. 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 Waldenstrom's macroglobulinemia (HCC) - ICD9: 273.3, ICD10: C88.0 - per #9 12. Irritable bowel syndrome without diarrhea - ICD9: 564.1, ICD10: K58.9 - No new issues. Cont metamucil 13. Primary insomnia - ICD9: 307.42, ICD10: F51.01 Will try - ZOLPIDEM 5 MG TABLET 14. Benign non-nodular prostatic hyperplasia without lower urinary tract symptoms - ICD9: 600.90, ICD10: N40.0 - Advised to take the flomax daily. - TAMSULOSIN 0.4 MG CAPSULE 15. Erectile dysfunction, unspecified erectile dysfunction type - ICD9: 607.84, ICD10: N52.9 - Cont cialis as needed. 16. Acute pain of both shoulders - ICD9: 719.41, ICD10: M25.511, M25.512 - Cont f/u with OrthoDr. Adame. Signed Prescriptions Disp Refills tamsulosin ER (FLOMAX) 0.4 mg cap 90 capsule 1 Sig: Take 1 capsule by mouth once daily. JEFF: No zolpidem (AMBIEN) 5 mg tablet 30 tablet 2 Sig: Take 1 tablet by mouth at bedtime as needed for up to 90 days. LISA Class: C-IV F/u 6 months routine check FLP, A1c BMP prior MD Jared Lund MD 11/18/2017 10:32 AM Signed Please let me know when you get your flu vaccine. Please get fasting labs on or after 05/06/2018 prior to next visit. Referring Provider: JARED ROBERTSON [[id number]] Allergies As of Date: 11/18/2017 Noted Allergy Reaction ELAVIL (AMITRIPTYLINE HCL) 11/18/2017 14 - Other: See Comments Comments: Tired and depressed feeling Date Reviewed: 11/18/2017 Reviewed by: Jared Robertson - Fully Assessed Reason for Visit: Physical [83] Cmt: 6 month Primary Visit Diagnosis:Medicare annual wellness visit, subsequent [Z00.00] Other Visit Diagnoses:Mixed hyperlipidemia [E78.2] 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 [I25.10, I25.83] GERD without esophagitis [K21.9] Chronic bronchitis, unspecified chronic bronchitis type (HCC) [J42] Abdominal aortic aneurysm (AAA) without rupture (HCC) [I71.4] Bilateral carotid artery disease, unspecified type (HCC) [I77.9] Subclavian artery stenosis, right (HCC) [I77.1] Thrombocytopenia (HCC) [D69.6] Malignant lymphoplasmacytic lymphoma (HCC) [C83.00] Waldenstrom's macroglobulinemia (HCC) [C88.0] Irritable bowel syndrome without diarrhea [K58.9] Primary insomnia [F51.01] Benign non-nodular prostatic hyperplasia without lower urinary tract symptoms [N40.0] Erectile dysfunction, unspecified erectile dysfunction type [N52.9] Acute pain of both shoulders [M25.511, M25.512] Elevated fasting blood sugar [R73.01] Order(s):tamsulosin ER (FLOMAX) 0.4 mg capTake 1 capsule by mouth once daily.Disp: 90 capsuleRfl: 1 zolpidem (AMBIEN) 5 mg tabletTake 1 tablet by mouth at bedtime as needed for up to 90 days.Disp: 30 tabletRfl: 2 HGB A1C [[id number]] Order #: [id number] FUTURE LIPID PANEL, NONFASTING [SQLIPNF] Order #: [id number] FUTURE BASIC METABOLIC PNL [SQBMP] Order #: [id number] FUTURE Prescriptions as of 11/18/2017 Sig: FAMOTIDINE 40 MG TABLET TRAMADOL 50 MG TABLET TAMSULOSIN 0.4 MG CAPSULE Take 1 capsule by mouth once * METRONIDAZOLE 1 % TOPICAL GEL Apply 1 application to affect* GABAPENTIN 300 MG CAPSULE Take 1 capsule by mouth twice* CETIRIZINE 10 MG TABLET Take 1 tablet by mouth once d* MEDICATION, NON-DATABASE Takes med for digestive probl* ROSUVASTATIN 20 MG TABLET Take 20 mg by mouth once maxine* * ASPIR-81 81 MG TABLET,DELAYED* One tabs every morning ZOLPIDEM 5 MG TABLET Take 1 tablet by mouth at bed* Medication notes this encounter AMITRIPTYLINE 10 MG TABLET >> Jared Robertson MD 11/18/2017 10:03 AM tired and depressed feeling ESOMEPRAZOLE MAGNESIUM 20 MG CAPSULE,DELAYED RELEASE >> Jared Robertson MD 11/18/2017 10:01 AM changed to [email or web address] Problem List As Of Date 11/18/2017 Noted Resolved Chronic bronchitis (HCC) [J42] INVALID FOR* Priority: A AAA (abdominal aortic aneurysm) (HCC) [I71.4] INVALID FOR* Priority: A More... 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 Bilateral carotid artery disease (HCC) [I77.9] INVALID FOR* Priority: A More... Chronic low back pain without sciatica [M54.5, *INVALID FOR* Priority: M Allergic rhinitis due to pollen [J30.1] INVALID FOR* Priority: B Erectile dysfunction [N52.9] INVALID FOR* Priority: C IBS (irritable bowel syndrome) [K58.9] INVALID FOR* Priority: B Waldenstrom's macroglobulinemia (HCC) [C88.0] INVALID FOR* Priority: A Family history of dementia [Z81.8] INVALID FOR* Priority: F Primary insomnia [F51.01] INVALID FOR* Priority: B DDD (degenerative disc disease), lumbar [M51.36]INVALID FOR* Priority: M Psoriasis [L40.9] INVALID FOR* Priority: D History of colon polyps [Z86.010] INVALID FOR* Priority: C Mixed hyperlipidemia [E78.2] INVALID FOR* Priority: A 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 Well adult exam [Z00.00] INVALID FOR* Priority: E More... Chronic pain syndrome [G89.4] INVALID FOR* Priority: M More... Disorder of prostate [N42.9] INVALID FOR* Benign non-nodular prostatic hyperplasia withou*INVALID FOR* Priority: C Rosacea [L71.9] INVALID FOR* Priority: D Current use of proton pump inhibitor [Z79.899] INVALID FOR* Subclavian artery stenosis, right (HCC) [I77.1] INVALID FOR* Priority: A More... Elevated fasting blood sugar [R73.01] INVALID FOR* Priority: A Other instructions from your clinician: Please let me know when you get your flu vaccine. Please get fasting labs on or after 05/06/2018 prior to next visit. Prescriptions ordered this encounter Disp Refills Start End TAMSULOSIN 0.4 MG CAPSULE 90 c* 1 11/18/2017 Route: ORAL Sig: Take 1 capsule by mouth once daily. ZOLPIDEM 5 MG TABLET 30 t* 2 11/18/2017 02/16/2018 Class: Print RX Route: ORAL Sig: Take 1 tablet by mouth at bedtime as needed for up to 90 days. Medications Discontinued During This Encounter cyclobenzaprine (FLEXERIL) 10 mg tab* 9 ta* 0 06/02/2017 11/18/2017 Route: ORAL Sig: Take 1 tablet by mouth three times daily as needed for Muscle Spasm. Patient not taking: Reported on 11/18/2017 Disc: Course of therapy completed predniSONE (DELTASONE) 20 mg tablet 06/03/2017 11/18/2017 Class: Historical Med Route: ORAL Sig: Take 1 tablet by mouth twice daily. Disc: Course of therapy completed HYDROcodone-acetaminophen (NORCO) 5-* 0 06/03/2017 11/18/2017 Class: Historical Med Route: ORAL Sig: Take 1-2 tablets by mouth every 4 hours as needed. Disc: Course of therapy completed Tadalafil (CIALIS) 10 mg tablet 5 ta* 5 10/23/2015 11/18/2017 Route: ORAL Sig: Take 1 tablet by mouth as needed. Patient not taking: Reported on 11/18/2017 Disc: Discontinued by Patient esomeprazole (NEXIUM) 20 mg capsule 11/11/2016 11/18/2017 Class: Med Update Route: ORAL Sig: Take 1 capsule by mouth twice daily before meals. Per Gastro Patient not taking: Reported on 11/18/2017 Disc: Changing Therapy/Dosage Form amitriptyline (ELAVIL) 10 mg tablet 10/25/2017 11/18/2017 Class: Historical Med Sig: Disc: Adverse Reaction tamsulosin ER (FLOMAX) 0.4 mg cp24 90 c* 3 11/11/2016 11/18/2017 Route: ORAL Sig: Take 1 capsule by mouth once daily. Disc: Reason for discontinue is not on file. Disposition: Return in about 6 months (around 05/19/2018) for routine. Follow-up and Disposition History Recorded Encounter Status:Closed by JARED ROBERTSON on 11/18/17 URINALYSIS WITH Collected: 11/15/2017 Status: F Source: [facility] 8:10 AM [facility] REPOSITORY TYPE CODE TESTS RESULT OUT OF REFERENCE UNITS RANGE LAB UCOL Yellow Color Yellow LAB [facility] Clear Clarity Clear LAB UGLUC Negative mg/dL Glucose, Urine Negative LAB UBIL Negative Bilirubin, Urine Negative LAB UKET Negative Ketones, Urine Negative LAB USPG 1.005-1.030 Specific [place], Ur 1.018 LAB UHGB Negative Hemoglobin/Blood, Negative Ur LAB UPH 4.5-8.0 pH 5.0 LAB UPROT Negative mg/dL Protein, Urine Negative LAB UUROB Normal Urobilinogen Normal LAB UNITR Negative Nitrites Negative LAB ULKEST Negative Leukest Negative LAB UCOM Comments SEE COMMENT Result Comment: N/A LAB UMCOM Urine SEE Petey Comment COMMENT Result Comment: N/A LAB UWBC 0-5 /HPF WBC 0-5 LAB URBC 0-3 /HPF RBC 0-3 Performed By: #### UAWMIC #### [facility] [address] [place], [place] [address] COMP METABOLIC PANEL Collected: 11/15/2017 Status: F Source: [place] 8:09 AM [facility] REPOSITORY TYPE CODE TESTS RESULT OUT OF REFERENCE UNITS RANGE LAB TP 6.3-8.0 g/dL Protein, Total 6.8 LAB ALB 3.9-4.9 g/dL Albumin 4.2 LAB CA 8.5-10.2 mg/dL Calcium, Total 9.7 LAB TBIL 0.2-1.3 mg/dL Bilirubin, Total 0.8 LAB ALKP 38-113 U/L Alkaline Phosphatase 92 LAB AST 14-40 U/L AST 16 LAB GLU 74-99 mg/dL Glucose High 109 Result Comment: The [place] Diabetes Association (ADA) provides guidance for cutoff values for fasting glucose and random glucose. The ADA defines fasting as no caloric intake for at least 8 hours. Fas ting plasma glucose results between 100 to 125 mg/dL indicate increased risk for diabetes (prediabetes). Fasting plasma glucose results greater than or equal to 126 mg/dL meet the criteria for diagnosis of diabetes. In the absence of unequivocal hyperglycemia, results should be confirmed by repeat testing. In a patient with classic symptoms of hyperglycemia or hyperglycemic crisis, random plasma glucose results greater than or equal to 200 mg/dL meet the criteria for diagnosis of diabetes. Reference: Standards of Medical Care in Diabetes 2016, [place] Diabetes Association. Diabetes Care. 2016.39(Suppl 1). LAB BUN 9-24 mg/dL BUN 18 LAB CRET 0.73-1.22 mg/dL Creatinine 1.02 LAB NA 136-144 mmol/L Sodium 139 LAB K 3.7-5.1 mmol/L Potassium 4.0 LAB CL 97-105 mmol/L Chloride 100 LAB CO2 22-30 mmol/L CO2 28 LAB AGAP 9-18 mmol/L Anion Gap 11 LAB ALT 10-54 U/L ALT 11 LAB GFRAA eGFR- Amer. >60 LAB GFRNAA . eGFR-All Other Races >60 Result Comment: eGFR (Estimated GFR) Units of measure: mL/min/1.73 meters squared eGFR is derived from the reexpressed MDRD Study equation using the following parameters: serum creatinine, age, gender and race. The creatinine assay has been calibrated to be traceable to IDMS. An eGFR <60 mL/min/1.73m2 for >3 months is consistent with chronic kidney disease. Refer to KDOQI guidelines for clinical interpretation. In patients with unstable renal function, e.g. those with acute kidney injury, the eGFR may not accurately reflect actual GFR. Performed By: #### CMP, LIPB, MG1, PSA, CBCDIF #### [facility] [address] [place], [place] [address] LIPID PANEL, BASIC Collected: 11/15/2017 Status: F Source: [place] 8:09 AM [facility] REPOSITORY TYPE CODE TESTS RESULT OUT OF REFERENCE UNITS RANGE LAB CHOL <200 mg/dL Cholesterol 179 Result Comment: <200 mg/dL, Desirable 200-239 mg/dL, Borderline high >239 mg/dL, High LAB TRIGLY <150 mg/dL Triglyceride 94 Result Comment: <150 mg/dL, Normal 150-199 mg/dL, Borderline high 200-499 mg/dL, High >499 mg/dL, Very high LAB HDL >39 mg/dL HDL-Cholesterol 53 Result Comment: 40-59 mg/dL, Acceptable >59 mg/dL, High: Negative risk factor for coronary heart disease <40 mg/dL, Low: Positive risk factor for coronary heart disease LAB LDL <100 mg/dL LDL-Cholesterol High 107 Result Comment: <100 mg/dL, Optimal 100-129 mg/dL, Near optimal/above optimal 130-159 mg/dL, Borderline high 160-189 mg/dL, High >189 mg/dL, Very high Secondary prevention optimal LDL Cholesterol levels are recommended to be < 70 mg/dL LAB NONHDL <130 mg/dL Non HDL Cholesterol 126 Result Comment: <130 mg/dL, Optimal 130-159 mg/dL, Near optimal/above optimal 160-189 mg/dL, Borderline high 190-219 mg/dL, High >219 mg/dL, Very high Secondary prevention optimal non HDL Cholesterol levels are recommended to be < 100 mg/dL LAB FT hrs Fasting Time 12 LAB VLDL <30 mg/dL VLDL Cholesterol 19 LAB TCHDL <5.10 TC:HDL Ratio 3.38 LAB LDLHDL <2.54 LDL:HDL Ratio 2.02 Result Comment: Reference: 1. National Cholesterol Education Program ATP III Guideline At-A-Glance Quick Desk Reference: National Heart, Lung, and Blood Taylor. National Institutes of Health. 2001: NIH Publication No. 01-3305. 2. An International Atherosclerosis Society position paper: global recommendations for the management of dyslipidemia: executive summary, Atherosclerosis. 2014: 232(2):410-413. Performed By: #### CMP, LIPB, MG1, PSA, CBCDIF #### [facility] [address] [place], [place] [address] MAGNESIUM Collected: 11/15/2017 Status: F Source: [place] 8:09 AM [facility] REPOSITORY TYPE CODE TESTS RESULT OUT OF REFERENCE UNITS RANGE LAB MG 1.7-2.3 mg/dL Magnesium 2.1 Performed By: #### CMP, LIPB, MG1, PSA, CBCDIF #### [facility] [address] [place], [place] [address] PSA, DIAGNOSTIC Collected: 11/15/2017 Status: F Source: [place] 8:09 AM [facility] REPOSITORY TYPE CODE TESTS RESULT OUT OF REFERENCE UNITS RANGE LAB PSA 0.00-2.59 ng/mL PSA, Diagnostic 0.62 Result Comment: Total PSA test methodology used is the Electrochemiluminescence Immunoassay. Performed By: #### CMP, LIPB, MG1, PSA, CBCDIF #### [place] [id number] [place], [place] [address] CBC AND DIFFERENTIAL Collected: 11/15/2017 Status: F Source: [place] 8:09 AM [facility] REPOSITORY TYPE CODE TESTS RESULT OUT OF REFERENCE UNITS RANGE LAB WBC 3.70-11.00 k/uL WBC 8.12 LAB RBC 4.20-6.00 m/uL RBC 4.32 LAB HGB 13.0-17.0 g/dL Hemoglobin 13.8 LAB HCT 39.0-51.0 % Hematocrit 41.6 LAB MCV 80.0-100.0 fL MCV 96.3 LAB MCH 26.0-34.0 pG MCH 31.9 LAB MCHC 30.5-36.0 g/dL MCHC 33.2 LAB RDWCV 11.5-15.0 % RDW-CV 13.2 LAB PLTCT 150-400 k/uL Platelet Count 231 LAB MPV 9.0-12.7 fL MPV 10.2 LAB ANEUT % Neut% 74.9 LAB AANEUT 1.45-7.50 k/uL Abs Neut 6.07 LAB ALYMP % Lymph% 14.5 LAB AALYMP 1.00-4.00 k/uL Abs Lymph 1.18 LAB AMONO % Grimes% 7.6 LAB AAMONO <0.87 k/uL Abs Grimes 0.62 LAB AEOS % Eosin% 2.6 LAB AAEOS <0.46 k/uL Abs Eosin 0.21 LAB ABASO % Baso% 0.4 LAB AABASO <0.11 k/uL Abs Baso 0.03 LAB AUNRBC 0 /100 WBC NRBCs 0.0 LAB ABNRBC <0.01 k/uL Absolute nRBC <0.01 LAB DTYP DTYPE Auto Diff Performed By: #### CMP, LIPB, MG1, PSA, CBCDIF #### [facility] [place] [facility] [address] [place], [place] [address] 12 LEAD ELECTROCARDIOGRAM Observed: 09/27/2017 Status: F Source: [place] 1:45 PM [facility] REPOSITORY [facility] Cardiovascular Services [address] [place] [address] 12 Lead EKG 09/25/17 0949 MR#: [id number] Acct: [id number] Name: CHRISTIANO SORENSEN Rep #: [id number] : 1940 76 From: Jaxson Kenyon MD Attending Dr: Shadi Ballard Status: REG CLI Ordering Dr: Shadi Cesar PA-C Date: 09/25/17 Location: LAB Sex: M C Admitted: Test Reason : PREOP Blood Pressure : / mmHG Vent. Rate : 060 BPM Atrial Rate : 060 BPM P-R Int : 200 ms QRS Dur : 096 ms QT Int : 424 ms P-R-T Axes : 075 008 021 degrees QTc Int : 424 ms Normal sinus rhythm Normal ECG Confirmed by JAXSON KENYON MD ([id number]), editor producer GAYLE BAUER ([id number]) on 09/27/2017 1:45:29 PM Referred By: Shadi Cesar Confirmed By:JAXSON KENYON MD 09/27/17 1345 Date Jaxson Kenyon MD CC: Jared Robertson MD; Shadi STEPHENS Signed CBC-COMPLETE BLOOD CNT Collected: 09/25/2017 Status: F Source: [place] NO DIFF 9:34 AM [facility] REPOSITORY TYPE CODE TESTS RESULT OUT OF RANGE REFERENCE UNITS LAB L100.1000 4.4-11.0 K/mm3 Normal WBC 7.1 LAB L100.1200 4.6-6.2 M/mm3 Low RBC 4.29 LAB L100.1300 13.0-16.5 g/dl Normal HGB 13.9 LAB L100.1400 40-54 % Normal HCT 40.6 LAB L100.1500 80-94 fL High MCV 94.6 LAB L100.1600 27.0-32.0 pg High MCH 32.4 LAB L100.1700 32-36 g/gl Normal MCHC 34.2 LAB L100.1810 11.6-14.6 % Normal RDW CV 13.8 LAB L100.1820 35.1-43.9 fl High RDW SD 45.9 LAB L100.1900 150-450 K/mm3 Normal PLT 154 LAB L100.2000 6.2-12.0 fl Normal MPV 10.3 Performed By: #### L100.0500 #### [facility] [address] [place], [place], [address] BASIC METABOLIC Collected: 09/25/2017 Status: F Source: [place] PROFILE (BMP) 9:34 AM [facility] REPOSITORY TYPE CODE TESTS RESULT OUT OF RANGE REFERENCE UNITS LAB L501.0100 74-106 mg/dL Normal GLU 90 Result Comment: Slight Lipemia, Result may be falsely increased. Please note revised GLUCOSE reference range effective 2017. LAB L501.1000 7-18 mg/dL High BUN 23 Result Comment: Slight Lipemia, Result may be falsely increased. LAB L501.1100 0.70-1.30 mg/dL CREAT,SERUM Normal 1.15 Result Comment: Slight Lipemia, Result may be falsely increased. The validity of the calculated GFR AND GFRAA in patients over 70 years has not been determined. Clinical correlation is essential. LAB L501.1110 >60 mL/min Normal EST GFR 66 Result Comment: Non- GFR Calc LAB L501.1115 >60 mL/min Normal EST GFR - AA 79 Result Comment: GFR Calc LAB L501.1300 10-20 RATIO Normal BUN/CRE 20.0 LAB L501.2200 8.5-10.1 mg/dL CA Normal 8.7 Result Comment: Slight Lipemia, Result may be falsely increased. LAB L501.5300 136-145 mmol/L Normal NA 140 LAB L501.5600 3.5-5.1 mmol/L Normal K 4.0 Result Comment: Slight Lipemia, Result may be falsely increased. LAB L501.5900 98-107 mmol/L Normal CL 104 LAB L501.6100 21.0-32.0 mmol/L Normal CO2 31.0 Result Comment: Slight Lipemia, Result may be falsely increased. LAB L501.6200 5-15 Normal GAP 5 Performed By: #### L500.2500 #### [facility] [address] [place], [address] CBC WITH DIFF FABIEN Collected: 09/16/2017 Status: X Source: [facility] 1:39 PM [facility] REPOSITORY TYPE CODE TESTS RESULT OUT OF REFERENCE UNITS RANGE LAB CBCDFJ CBC WITH This DIFF FABIEN result has been cancelled. Performed By: #### CBCDFJ, QMPROP #### [facility] (DEFAULT) [address] [address] QUANT MONOCLONAL PROTEIN Collected: Status: X Source: [facility] IMMUNOFIXATION,SERUM 09/16/2017 1:39 PM [facility] REPOSITORY TYPE CODE TESTS RESULT OUT OF REFERENCE UNITS RANGE LAB QMPROP Quant Monoclonal This Protein result has Immunofixation,s been irving cancelled. Performed By: #### CBCDFJ, QMPROP #### [facility] (DEFAULT) [address] [address] CBC W/DIFF, AUTOMATED Collected: 09/09/2017 Status: F Source: [place] 10:51 AM [facility] REPOSITORY Order Comment: CALL CRITICALS RESULTS TO [phone] TYPE CODE TESTS RESULT OUT OF RANGE REFERENCE UNITS LAB L100.1000 4.4-11.0 K/mm3 Normal WBC 7.8 LAB L100.1200 4.6-6.2 M/mm3 Low RBC 4.08 LAB L100.1300 13.0-16.5 g/dl Normal HGB 13.0 LAB L100.1400 40-54 % Low HCT 38.6 LAB L100.1500 80-94 fL High MCV 94.6 LAB L100.1600 27.0-32.0 pg Normal MCH 31.9 LAB L100.1700 32-36 g/gl Normal MCHC 33.7 LAB L100.1810 11.6-14.6 % Normal RDW CV 13.4 LAB L100.1820 35.1-43.9 fl High RDW SD 44.7 LAB L100.1900 150-450 K/mm3 Normal PLT 191 LAB L100.2000 6.2-12.0 fl Normal MPV 9.9 LAB L100.2100 47-70 % Normal NEUT% 67.9 LAB L100.2200 19-41 % Low LY% 15.0 LAB L100.2300 0-10 % High MONO% 14.5 LAB L100.2400 0-5 % Normal EO% 1.8 LAB L100.2500 0-1 % Normal BASO% 0.3 LAB L100.2550 0.0-0.9 % Normal IM GRAN % 0.500 Result Comment: IG% - Immature Granulocytes (promyelocytes, myelocytes and metamyelocytes) > 1% indicates that a LEFT SHIFT is Present. LAB L100.2620 2.0-7.7 X10 3/uL Normal Absolute Neut 5.3 LAB L100.2720 0.83-4.51 X10 3/ul Normal Absolute Lymph 1.17 Performed By: #### L100.0100 #### [facility] [address] [place], [place], [address] COMPREHENSIVE METABOLIC Collected: 09/09/2017 Status: F Source: [facility] 10:51 AM [facility] REPOSITORY Order Comment: CALL CRITICALS RESULTS TO [phone] Serial Specimen #1, #2 or #3? 1 TYPE CODE TESTS RESULT OUT OF RANGE REFERENCE UNITS LAB L501.0100 74-106 mg/dL Low GLU 71 Result Comment: Slight Lipemia, Result may be falsely increased. Please note revised GLUCOSE reference range effective 2017. LAB L501.1000 7-18 mg/dL High BUN 21 Result Comment: Slight Lipemia, Result may be falsely increased. LAB L501.1100 0.70-1.30 mg/dL CREAT,SERUM Normal 1.19 Result Comment: Slight Lipemia, Result may be falsely increased. The validity of the calculated GFR AND GFRAA in patients over 70 years has not been determined. Clinical correlation is essential. LAB L501.1110 >60 mL/min Normal EST GFR 63 Result Comment: Non- GFR Calc LAB L501.1115 >60 mL/min Normal EST GFR - AA 76 Result Comment: GFR Calc LAB L501.1300 10-20 RATIO Normal BUN/CRE 17.6 LAB L501.1500 6.4-8.2 g/dL T Normal PROT 7.4 Result Comment: Slight Lipemia, Result may be falsely increased. LAB L501.1800 3.2-5.0 g/dL Normal ALB 3.4 LAB L501.1950 2.2-4.2 g/dL Normal GLOB 4.0 LAB L501.2000 0.9-2.4 RATIO Low A/G 0.8 LAB L501.2200 8.5-10.1 mg/dL Normal CA 8.9 Result Comment: Slight Lipemia, Result may be falsely increased. LAB L501.4100 15-37 U/L Normal AST 18 Result Comment: Slight Lipemia, Result may be falsely increased. LAB L501.4305 45-117 U/L Normal ALK P 102 LAB L501.4405 16-61 U/L Normal ALT 20 Result Comment: Slight Lipemia, Result may be falsely increased. LAB L501.4600 0.20-1.00 mg/dL Normal T BILI 0.70 Result Comment: Slight Lipemia, Result may be falsely increased. LAB L501.5300 136-145 mmol/L Normal NA 139 LAB L501.5600 3.5-5.1 mmol/L Normal K 4.0 Result Comment: Slight Lipemia, Result may be falsely increased. LAB L501.5900 98-107 mmol/L Normal CL 105 LAB L501.6100 21.0-32.0 mmol/L Normal CO2 29.0 Result Comment: Slight Lipemia, Result may be falsely increased. LAB L501.6200 5-15 Normal GAP 5 Performed By: #### L500.4050, L504.2610 #### [facility] [address] [place], [address] LDH Collected: 09/09/2017 Status: F Source: [place] 10:51 AM [facility] REPOSITORY Order Comment: CALL CRITICALS RESULTS TO [phone] Serial Specimen #1, #2 or #3? 1 TYPE CODE TESTS RESULT OUT OF RANGE REFERENCE UNITS LAB L504.2610 87-241 U/L Normal LDH 147 Result Comment: Slight Lipemia, Result may be falsely increased. Performed By: #### L500.4050, L504.2610 #### [facility] [address] [place], [address] YASIR + PROTEIN ELECT, Collected: 09/09/2017 Status: F Source: [place] 10:51 AM [facility] REPOSITORY Order Comment: CALL CRITICALS RESULTS TO [phone] Is Patient Fasting? Y TYPE CODE TESTS RESULT OUT OF RANGE REFERENCE UNITS LAB L3100.3500 6.0-8.5 g/dL Normal PROTEIN,TOTAL 6.6 LAB L3200.1587 490-5073 mg/dL Low IMMUNO G 606 LAB L3200.1400 61-437 mg/dL Normal IMMUNO A 139 LAB L3200.1500 15-143 mg/dL High IMMUNOGL M 640 LAB L3200.1510 2.9-4.4 g/dL Normal ALBUMIN 3.4 LAB L3200.1520 0.0-0.4 g/dL Normal XXRZX-2-RGZL 0.3 LAB L3200.1530 0.4-1.0 g/dL Normal RCAGC-1-HHZX 0.7 LAB L3200.1540 0.7-1.3 g/dL Normal BETA GLOBULIN 1.0 LAB L3200.1550 0.4-1.8 g/dL Normal GAMMA GLOBULIN 1.2 LAB L3200.1560 Not Observed g/dL High M-SPIKE 0.8 LAB L3200.1570 2.2-3.9 g/dL Normal GLOBULIN, 3.2 TOTAL LAB L3200.1580 0.7-1.7 Normal A/G RATIO 1.1 LAB L3200.1590 . Normal YASIR RESULT,S Comment Result Comment: Immunofixation shows IgM monoclonal protein with kappa light chain specificity. LAB L3200.1594 . Normal NOTE: Comment Result Comment: Protein electrophoresis scan will follow via computer, mail, or mailroom supervisor delivery. Performed By: #### L3100.3425, L3410.1700 #### [facility] (refer to report for specific site) refer to report for address and phone number VISCOSITY, SERUM Collected: 09/09/2017 Status: F Source: [place] 10:51 AM [facility] REPOSITORY Order Comment: CALL CRITICALS RESULTS TO [phone] Is Patient Fasting? Y TYPE CODE TESTS RESULT OUT OF RANGE REFERENCE UNITS LAB L3410.1700 1.6-1.9 rel.saline Normal 1.7 VISCOSITY,S4 861 Result Comment: Values above 2.7 may indicate paraproteinemia is present. This test was developed and its performance characteristics determined by [employer]. It has not been cleared or approved by the Food and Drug Administration. Performed at: [facility] [address] [id number] [employer]: Juni Mac PhD, Phone: [phone] Performed at: [facility] [address] [id number] [employer]: Donell Murry MD, Phone: [phone] Performed By: #### L3100.3425, L3410.1700 #### [facility] (refer to report for specific site) refer to report for address and phone number HIPS B/L MIN 2 Observed: 08/28/2017 Status: F Source: [place] VIEWS W/ PELVIS 9:57 AM [facility] REPOSITORY [facility] Imaging Services [address] [place] [address] Hips B/L min 2 views w/ Pelvis MR#: [id number] Acct: [id number] Name: CHRISTIANO SORENSEN Rep #: [id number] : 1940 M 76 From: Daniel Encarnacion MD PCP: Jared Robertson MD Status: REG CLI Study: Hips B/L min 2 views w/ Pelvis Date of Exam: 08/28/17 Exam# [id number] Ordering Dr: Jared Peñaloza MD STUDY: X-RAY - PELVIS AND BILATERAL HIPS REASON FOR EXAM: Male, 76 years old. Pain TECHNIQUE: Radiological exam, hip, bilateral, with pelvis when performed; 2 views COMPARISON: None. FINDINGS: There is mild degenerative spurring at both hips. There is no fracture. There is no osseous distraction. There is no osteonecrosis. The joint spaces are well-maintained. The SI joints are intact. Surgical clips project at the groin, bilaterally. Arterial calcification. Aortoiliac endovascular stent graft. RAD/Hips B/L min 2 views w/ Pelvis IMPRESSION: Mild degenerative spurring at both hips Electronically Signed: Daniel Encarnacion MD at 10:38 EDT Tel , Service support , CC: Jared Robertson MD; Jared Peñaloza [employer] Biologist: Signed SHOULDER MIN 2 VIEWS Observed: 08/28/2017 Status: F Source: [place] 9:57 AM [facility] REPOSITORY [facility] Imaging Services [address] [place] [id number] Shoulder min 2 Views MR#: [id number] Acct: [id number] Name: CHRISTIANO SORENSEN Rep #: [id number] : 1940 76 From: Daniel Encarnacion MD PCP: Jared Robertson MD Status: REG CLI Study: Shoulder min 2 Views Date of Exam: 08/28/17 Exam# [id number] Ordering Dr: Jared Peñaloza MD STUDY: X-RAY - RIGHT SHOULDER REASON FOR EXAM: Male, 76 years old. Pain TECHNIQUE: 4 view(s) of the shoulder. COMPARISON: None. FINDINGS: There are mild degenerative changes at the acromioclavicular joint. There is no fracture or dislocation. There is no osseous destruction. RAD/Shoulder min 2 Views IMPRESSION: Mild degenerative changes of the acromioclavicular joint Electronically Signed: Daniel Encarnacion MD at 10:39 EDT Tel , Service support , CC: Jared Robertson MD; Jared Peñaloza [employer]heries Management Biologist: Signed SHOULDER MIN 2 VIEWS Observed: 08/28/2017 Status: F Source: [place] 9:57 AM [facility] REPOSITORY [facility] Imaging Services [address] [place], [place] [address] [address] Shoulder min 2 Views MR#: [id number] Acct: [id number] Name: CHRISTIANO SORENSEN Rep #: [id number] : 1940 M 76 From: Daniel Encarnacion MD PCP: Jared Robertson MD Status: REG CLI Study: Shoulder min 2 Views Date of Exam: 08/28/17 Exam# [id number] Ordering Dr: Jared Peñaloza MD STUDY: X-RAY - LEFT SHOULDER REASON FOR EXAM: Male, 76 years old. Pain TECHNIQUE: 4 view(s) of the shoulder. COMPARISON: None. FINDINGS: Normal glenohumeral articulation. Normal acromioclavicular joint. Normal acromion. Normal humeral head and visualized proximal humerus. The soft tissue structures are unremarkable. Calcified granulomata are present at the left upper lobe of the lung. RAD/Shoulder min 2 Views IMPRESSION: Intact left shoulder Evidence of chronic granulomatous disease at the left upper lobe of the lung. Electronically Signed: Daniel Encarnacion MD at 10:41 EDT Tel , Service support , CC: Jared Robertson MD; Jared Peñaloza [employer] Management Biologist: Signed PROGRESS Observed: 07/31/2017 Status: COMPLETED Source: [place] 8:56 AM [facility] OTHER [facility] REPOSITORY O ID: [id number] Author: Harrison Borja Bob Service: (none) Author Type: Physician Type: Progress Notes Filed: 07/31/2017 9:02 AM Note Text: This patient is referred back today for an abnormal carotid duplex examination. The patient was under the impression that the reason he was referred his that his carotid arteries were significantly blocked in the 50-99% range. He has had no carotid symptomatology is had no TIA or strokelike symptomatology. He has been having some problems with issues with his back and this is been his most significant complaint recently. I have followed this patient in the past for his abdominal aortic aneurysm. The most recent check on that was last December and that was a good checkup with no evidence of any problems with his endovascular repair. I discuss with the patient any type of symptoms that he has and he states that he really has not been having any symptoms that would relate to stroke or TIA symptoms. Now I review his carotid duplex examination and the report I have states that he only has 20-39% bilateral internal carotid artery stenosis on the current study. It does however note that they are concerned about some potential turbulence in the left subclavian and there is noted a 50-99% stenosis on the right. I specifically asked the patient if he has any type of symptomatology in the arms. He states that sometimes his left arm does get a little more tired than his right but that he does not really notice that significantly. He also states that he occasionally gets some lightheadedness that does not really sound like any type of presyncope or severe vertigo that might be related to vertebrobasilar symptomatology. On examination today the patient does have strong bilateral radial artery pulses that are equal in nature. The hands are pink and warm and there is no evidence of decreased perfusion or any type of embolic events to the hands or fingers. The patient shows no evidence of any type of issues with the upper extremities other than those stated above. I going to a lengthy discussion of subclavian artery stenosis with the patient. I tell him that this is usually something that when even of the severe level is not symptomatic we do not tend to treat. At this point I discussed with him the signs and symptoms of upper extremity ischemia and as well vertebrobasilar symptomatology. I confirm that he really has had none of these symptoms. At this point I tell him that while we know there is probably a subclavian artery stenosis based on the most recent ultrasound that this is not looking to be something that needs to be treated at this time as he is asymptomatic. He discusses further imaging and I tell him that further imaging would not be indicated unless we're actually planning on doing some form of intervention because regardless of how severe the stenosis is we would probably treat only if symptomatic which she is not. I tell the patient we will follow-up on his aneurysm in December as we have planned and make plans to follow-up on his carotid/subclavian artery disease. He is on aspirin and a statin agent and at this point in time I think that is adequate therapy for both his aortic aneurysm and his upper extremity vascular disease. Patient seems satisfied with our follow-up plan and will see him in December in the [place] office.I spent 25 minutes in the visit, with more than 50% of the total [id number] time of the visit in counseling / coordination of care. CUBA Observed: 07/30/2017 Status: COMPLETED Source: [place] 10:30 AM [facility] OTHER [place] REPOSITORY Office Visit ([facility]) CHRISTIANO SORENSEN ([id number]) 1940 M Date Time Provider Department 07/30/17 10:30 AM HARRISON ROJAS During your visit today, we recorded the following information about you: Pulse Respiration Blood pressure Weight 68/minute 16/minute 118/66 85.3 kg Height 1.854 m Harrison Rojas MD 07/31/2017 9:02 AM Signed This patient is referred back today for an abnormal carotid duplex examination. The patient was under the impression that the reason he was referred his that his carotid arteries were significantly blocked in the 50- 99% range. He has had no carotid symptomatology is had no TIA or strokelike symptomatology. He has been having some problems with issues with his back and this is been his most significant complaint recently. I have followed this patient in the past for his abdominal aortic aneurysm. The most recent check on that was last December and that was a good checkup with no evidence of any problems with his endovascular repair. I discuss with the patient any type of symptoms that he has and he states that he really has not been having any symptoms that would relate to stroke or TIA symptoms. Now I review his carotid duplex examination and the report I have states that he only has 20-39% bilateral internal carotid artery stenosis on the current study. It does however note that they are concerned about some potential turbulence in the left subclavian and there is noted a 50-99% stenosis on the right. I specifically asked the patient if he has any type of symptomatology in the arms. He states that sometimes his left arm does get a little more tired than his right but that he does not really notice that significantly. He also states that he occasionally gets some lightheadedness that does not really sound like any type of presyncope or severe vertigo that might be related to vertebrobasilar symptomatology. On examination today the patient does have strong bilateral radial artery pulses that are equal in nature. The hands are pink and warm and there is no evidence of decreased perfusion or any type of embolic events to the hands or fingers. The patient shows no evidence of any type of issues with the upper extremities other than those stated above. I going to a lengthy discussion of subclavian artery stenosis with the patient. I tell him that this is usually something that when even of the severe level is not symptomatic we do not tend to treat. At this point I discussed with him the signs and symptoms of upper extremity ischemia and as well vertebrobasilar symptomatology. I confirm that he really has had none of these symptoms. At this point I tell him that while we know there is probably a subclavian artery stenosis based on the most recent ultrasound that this is not looking to be something that needs to be treated at this time as he is asymptomatic. He discusses further imaging and I tell him that further imaging would not be indicated unless we're actually planning on doing some form of intervention because regardless of how severe the stenosis is we would probably treat only if symptomatic which she is not. I tell the patient we will follow-up on his aneurysm in December as we have planned and make plans to follow-up on his carotid/subclavian artery disease. He is on aspirin and a statin agent and at this point in time I think that is adequate therapy for both his aortic aneurysm and his upper extremity vascular disease. Patient seems satisfied with our follow-up plan and will see him in December in the [place] office.I spent 25 minutes in the visit, with more than 50% of the total [id number] time of the visit in counseling / coordination of care. Referring Provider: JARED ROBERTSON [[id number]] Allergies As of Date: 07/30/2017 (No Known Allergies) Date Reviewed: 07/30/2017 Reviewed by: Adilia Gannon LPN - Fully Assessed Reason for Visit: Stenosis [1326] Cmt: Christiano is rfd back by Dr. Robertson for carotid AND Rt subclavian artery stenosis. Carotid us done 06/16/17 Aneurysm [496] Reason For Visit History Recorded Primary Visit Diagnosis:Subclavian artery stenosis, right (HCC) [I77.1] Other Visit Diagnosis:AAA (abdominal aortic aneurysm) without rupture ([facility]) [I71.4] Prescriptions as of 07/30/2017 Sig: HYDROCODONE 5 MG-ACETAMINOPHE* Take 1-2 tablets by mouth kimi* PREDNISONE 20 MG TABLET Take 1 tablet by mouth twice * CYCLOBENZAPRINE 10 MG TABLET Take 1 tablet by mouth three * METRONIDAZOLE 1 % TOPICAL GEL Apply 1 application to affect* TAMSULOSIN 0.4 MG CAPSULE Take 1 capsule by mouth once * TADALAFIL 10 MG TABLET Take 1 tablet by mouth as nee* GABAPENTIN 300 MG CAPSULE Take 1 capsule by mouth twice* CETIRIZINE 10 MG TABLET Take 1 tablet by mouth once d* MEDICATION, NON-DATABASE Takes med for digestive probl* ROSUVASTATIN 20 MG TABLET Take 20 mg by mouth once maxine* * ASPIR-81 81 MG TABLET,DELAYED* One tabs every morning ESOMEPRAZOLE MAGNESIUM 20 MG * Take 1 capsule by mouth twice* Problem List As Of Date 07/30/2017 Noted Resolved Chronic bronchitis (HCC) [J42] INVALID FOR* Priority: A AAA (abdominal aortic aneurysm) (HCC) [I71.4] INVALID FOR* Priority: A More... 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 Bilateral carotid artery disease (HCC) [I77.9] INVALID FOR* Priority: A More... Chronic low back pain without sciatica [M54.5, *INVALID FOR* Priority: M Allergic rhinitis due to pollen [J30.1] INVALID FOR* Priority: B Erectile dysfunction [N52.9] INVALID FOR* Priority: C IBS (irritable bowel syndrome) [K58.9] INVALID FOR* Priority: B Waldenstrom's macroglobulinemia (HCC) [C88.0] INVALID FOR* Priority: A Family history of dementia [Z81.8] INVALID FOR* Priority: F Primary insomnia [F51.01] INVALID FOR* Priority: B DDD (degenerative disc disease), lumbar [M51.36]INVALID FOR* Priority: M Psoriasis [L40.9] INVALID FOR* Priority: D History of colon polyps [Z86.010] INVALID FOR* Priority: C Mixed hyperlipidemia [E78.2] INVALID FOR* Priority: A 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 Well adult exam [Z00.00] INVALID FOR* Priority: E More... Chronic pain syndrome [G89.4] INVALID FOR* Priority: M More... Disorder of prostate [N42.9] INVALID FOR* Benign non-nodular prostatic hyperplasia withou*INVALID FOR* Priority: C Rosacea [L71.9] INVALID FOR* Priority: D Current use of proton pump inhibitor [Z79.899] INVALID FOR* Subclavian artery stenosis, right (HCC) [I77.1] INVALID FOR* Priority: A More... Letter Text Encounter Status:Closed by HARRISON ROJAS MD on 07/31/17 PROGRESS Observed: 06/08/2017 Status: COMPLETED Source: [place] 1:47 PM [facility] REPOSITORY HNO ID: [id number] Author: Alba Aquino Service: (none) Author Type: Nurse Practitioner Type: Progress Notes Filed: 06/08/2017 2:35 PM Note Text: 06/08/2017 Patient presents with: ER F/U: lower back pain x 2 weeks SUBJECTIVE: This is a 76 year old that is here today for follow up back pain. Pt was seen in [facility] 06/02/17 for left lower back pain. He had the pain for several days and it would occasionally radiate down his left leg. Made worse with movement of the left leg. Denied weakness or numbness. 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 He had been seen at the prior and given muscle relaxant. On exam, pain with movement of left leg, tenderness to left SI joint. He was treated with IM morphine and PO Zofran and it improved. He was discharged home with prednisone 40mg daily for 1 week and [place]. He states that the pain is improving. He is still on the prednisone and has a few [place] left. He has also tried ice, heat, OTC ibuprofen and icy hot patches. He is not sure what if anything is helping. He states that he is now able to walk and take stairs when before all he could do was lay flat to avoid the pain. Certain movements continue to make the pain worse. When it is at its worse, he describes it as a sharp pain 9/10 and at rest an ache 2/10. The sharp pains are getting to be less often. Pain is mostly the left lower back. Denies numbness or tingling, saddle anesthesia, loss of bowel or bladder. PAST MEDICAL HISTORY Diagnosis Date - AAA (abdominal aortic aneurysm) (HCC) - Abdominal pain, left upper quadrant - Allergic rhinitis, cause unspecified - Benign neoplasm of colon - Bronchitis, not specified as acute or chronic - Cardiac dysrhythmia, unspecified - Coronary atherosclerosis of unspecified type of vessel, shinnecock or graft - Degeneration of lumbar or lumbosacral intervertebral disc - Diaphragmatic hernia without mention of obstruction or gangrene - Enlargement of lymph nodes - Esophageal reflux - Impotence of organic origin - Irritable bowel syndrome - Lumbago - Other and unspecified hyperlipidemia - Other dyspnea and respiratory abnormality - Other malaise and fatigue - past medical history skin cancer forehead--unsure which kind - Psoriasis - Thrombocytopenia, unspecified (HCC) - Unspecified constipation ALLERGIES Review of patient's allergies indicates no known allergies. MEDICATIONS Current Outpatient Prescriptions: HYDROcodone-acetaminophen (NORCO) 5-325 mg per tablet Take 1-2 tablets by mouth every 4 hours as needed. predniSONE (DELTASONE) 20 mg tablet Take 1 tablet by mouth twice daily. cyclobenzaprine (FLEXERIL) 10 mg tablet Take 1 tablet by mouth three times daily as needed for Muscle Spasm. esomeprazole (NEXIUM) 20 mg capsule Take 1 capsule by mouth twice daily before meals. Per Gastro metroNIDAZOLE 1 % gel Apply 1 application to affected area once daily. Location: face tamsulosin ER (FLOMAX) 0.4 mg cp24 Take 1 capsule by mouth once daily. Tadalafil (CIALIS) 10 mg tablet Take 1 tablet by mouth as needed. gabapentin (NEURONTIN) 300 mg capsule Take 1 capsule by mouth twice daily as needed. cetirizine (ZYRTEC) 10 mg tablet Take 1 tablet by mouth once daily. MEDICATION, NON-DATABASE Takes med for digestive problems but pt doesn't remember name rosuvastatin (CRESTOR) 20 mg tablet Take 20 mg by mouth once daily. aspirin(ASPIR-81 81 MG TAB) One tabs every morning methylPREDNISolone (MEDROL, PRIYA,) 4 mg Dose-Pack Follow dosing instructions, take with food. No current facility-administered medications for this visit. Medications and allergies reviewed by this provider. SOCIAL HISTORY Social History Marital status: Single Spouse name: Years of education: Number of children: Social History Main Topics Smoking status: Former Smoker Packs/day: 1.00 Years: 8.00 Quit date: 02/15/1974 Smokeless status: Never Used Comment: NO EXPOSURE TO 2ND HAND SMOKE Alcohol use: Yes Comment: occasionally Drug use: No Sexual activity: Yes Partners with: Female REVIEW OF SYSTEMS see HPI OBJECTIVE: BP 118/64 (BP Site: Left Arm, BP Position: Sitting, BP Cuff Size: Regular Adult) Pulse 72 Temp 36.7 ?C (98.1 ?F) (Left Tympanic) Resp 16 Wt 89.4 kg (197 lb 1.9 oz) SpO2 98% BMI 26.37 kg/m2. Vital signs reviewed by this provider. PHYSICAL EXAMINATION: General appearance: Well appearing, alert, in no acute distress, well-hydrated, well nourished. Back: mild pain to palpation in the LS spine midline. Good flexion, no extension demonstrated due to pain, pain with left lateral bend, none with right lateral bend, no pain with rotation. Lungs: Lungs clear to auscultation. No wheezing, rhonchi, rales Heart: RRR without murmur, gallop, or rubs. No ectopy Extremities: No deformities, edema, skin discoloration, clubbing or cyanosis. Good capillary refill. , Pulses: 2+ ASSESSMENT/PLAN: 1. Acute midline low back pain without sciatica - ICD9: 724.2, ICD10: M54.5 - Ice for localized tenderness - Warm moist heat for 20 min three times a day - PT consult - continue on flexeril, prednisone, and norco as needed. After prednisone, ok to try NSAID if needed - CONSULT TO PHYSICAL THERAPY Alba Aquino APRN.CNP CNOV Observed: 06/08/2017 Status: COMPLETED Source: [place] 1:40 PM [facility] REPOSITORY [facility] CHRISTIANO SORENSEN ([id number]) 1940 M Date Time Provider Department 06/08/17 1:40 PM [facility] AQUINO [facility] During your visit today, we recorded the following information about you: Temperature Pulse Respiration Blood pressure 98.1 degrees 72/minute 16/minute 118/64 Weight 89.4 kg Alba Aquino APRN.CNP 06/08/2017 2:35 PM Signed 06/08/2017 Patient presents with: ER F/U: lower back pain x 2 weeks SUBJECTIVE: This is a 76 year old that is here today for follow up back pain. Pt was seen in [facility] 06/02/17 for left lower back pain. He had the pain for several days and it would occasionally radiate down his left leg. Made worse with movement of the left leg. Denied weakness or numbness. 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 He had been seen at the prior and given muscle relaxant. On exam, pain with movement of left leg, tenderness to left SI joint. He was treated with IM morphine and PO Zofran and it improved. He was discharged home with prednisone 40mg daily for 1 week and [place]. He states that the pain is improving. He is still on the prednisone and has a few [place] left. He has also tried ice, heat, OTC ibuprofen and icy hot patches. He is not sure what if anything is helping. He states that he is now able to walk and take stairs when before all he could do was lay flat to avoid the pain. Certain movements continue to make the pain worse. When it is at its worse, he describes it as a sharp pain 9/10 and at rest an ache 2/10. The sharp pains are getting to be less often. Pain is mostly the left lower back. Denies numbness or tingling, saddle anesthesia, loss of bowel or bladder. PAST MEDICAL HISTORY Diagnosis Date - AAA (abdominal aortic aneurysm) ([facility]) - Abdominal pain, left upper quadrant - Allergic rhinitis, cause unspecified - Benign neoplasm of colon - Bronchitis, not specified as acute or chronic - Cardiac dysrhythmia, unspecified - Coronary atherosclerosis of unspecified type of vessel, shinnecock or graft - Degeneration of lumbar or lumbosacral intervertebral disc - Diaphragmatic hernia without mention of obstruction or gangrene - Enlargement of lymph nodes - Esophageal reflux - Impotence of organic origin - Irritable bowel syndrome - Lumbago - Other and unspecified hyperlipidemia - Other dyspnea and respiratory abnormality - Other malaise and fatigue - past medical history skin cancer forehead--unsure which kind - Psoriasis - Thrombocytopenia, unspecified (HCC) - Unspecified constipation ALLERGIES Review of patient's allergies indicates no known allergies. MEDICATIONS Current Outpatient Prescriptions: HYDROcodone-acetaminophen (NORCO) 5-325 mg per tablet Take 1-2 tablets by mouth every 4 hours as needed. predniSONE (DELTASONE) 20 mg tablet Take 1 tablet by mouth twice daily. cyclobenzaprine (FLEXERIL) 10 mg tablet Take 1 tablet by mouth three times daily as needed for Muscle Spasm. esomeprazole (NEXIUM) 20 mg capsule Take 1 capsule by mouth twice daily before meals. Per Gastro metroNIDAZOLE 1 % gel Apply 1 application to affected area once daily. Location: face tamsulosin ER (FLOMAX) 0.4 mg cp24 Take 1 capsule by mouth once daily. Tadalafil (CIALIS) 10 mg tablet Take 1 tablet by mouth as needed. gabapentin (NEURONTIN) 300 mg capsule Take 1 capsule by mouth twice daily as needed. cetirizine (ZYRTEC) 10 mg tablet Take 1 tablet by mouth once daily. MEDICATION, NON-DATABASE Takes med for digestive problems but pt doesn't remember name rosuvastatin (CRESTOR) 20 mg tablet Take 20 mg by mouth once daily. aspirin(ASPIR-81 81 MG TAB) One tabs every morning methylPREDNISolone (MEDROL, PRIYA,) 4 mg Dose-Pack Follow dosing instructions, take with food. No current facility-administered medications for this visit. Medications and allergies reviewed by this provider. SOCIAL HISTORY Social History Marital status: Single Spouse name: Years of education: Number of children: Social History Main Topics Smoking status: Former Smoker Packs/day: 1.00 Years: 8.00 Quit date: 02/15/1974 Smokeless status: Never Used Comment: NO EXPOSURE TO 2ND HAND SMOKE Alcohol use: Yes Comment: occasionally Drug use: No Sexual activity: Yes Partners with: Female REVIEW OF SYSTEMS see HPI OBJECTIVE: BP 118/64 (BP Site: Left Arm, BP Position: Sitting, BP Cuff Size: Regular Adult) Pulse 72 Temp 36.7 ?C (98.1 ?F) (Left Tympanic) Resp 16 Wt 89.4 kg (197 lb 1.9 oz) SpO2 98% BMI 26.37 kg/m2. Vital signs reviewed by this provider. PHYSICAL EXAMINATION: General appearance: Well appearing, alert, in no acute distress, well-hydrated, well nourished. Back: mild pain to palpation in the LS spine midline. Good flexion, no extension demonstrated due to pain, pain with left lateral bend, none with right lateral bend, no pain with rotation. Lungs: Lungs clear to auscultation. No wheezing, rhonchi, rales Heart: RRR without murmur, gallop, or rubs. No ectopy Extremities: No deformities, edema, skin discoloration, clubbing or cyanosis. Good capillary refill. , Pulses: 2+ ASSESSMENT/PLAN: 1. Acute midline low back pain without sciatica - ICD9: 724.2, ICD10: M54.5 - Ice for localized tenderness - Warm moist heat for 20 min three times a day - PT consult - continue on flexeril, prednisone, and norco as needed. After prednisone, ok to try NSAID if needed - CONSULT TO PHYSICAL THERAPY Alba Aquino APRN.MAGNET MAKER Referring Provider: SELF [[id number]] Allergies As of Date: 06/08/2017 (No Known Allergies) Date Reviewed: 06/08/2017 Reviewed by: Sam Stallings Ma - Fully Assessed Reason for Visit: ER F/U [41] Cmt: lower back pain x 2 weeks Primary Visit Diagnosis:Acute midline low back pain without sciatica [M54.5] Order(s):CONSULT TO PHYSICAL THERAPY [9032] Order #: [id number]: 1 Prescriptions as of 06/08/2017 Sig: HYDROCODONE 5 MG-ACETAMINOPHE* Take 1-2 tablets by mouth kimi* PREDNISONE 20 MG TABLET Take 1 tablet by mouth twice * CYCLOBENZAPRINE 10 MG TABLET Take 1 tablet by mouth three * ESOMEPRAZOLE MAGNESIUM 20 MG * Take 1 capsule by mouth twice* METRONIDAZOLE 1 % TOPICAL GEL Apply 1 application to affect* TAMSULOSIN 0.4 MG CAPSULE Take 1 capsule by mouth once * TADALAFIL 10 MG TABLET Take 1 tablet by mouth as nee* GABAPENTIN 300 MG CAPSULE Take 1 capsule by mouth twice* CETIRIZINE 10 MG TABLET Take 1 tablet by mouth once d* MEDICATION, NON-DATABASE Takes med for digestive probl* ROSUVASTATIN 20 MG TABLET Take 20 mg by mouth once maxine* * ASPIR-81 81 MG TABLET,DELAYED* One tabs every morning Medication notes this encounter METHYLPREDNISOLONE 4 MG TABLETS IN A DOSE PACK >> Sam Stallings Ma 06/08/2017 1:33 PM >> SAM STALLINGS MA Jun 08, 2017 1:33 PM Therapy complete. Problem List As Of Date 06/08/2017 Noted Resolved Chronic bronchitis (HCC) [J42] INVALID FOR* Priority: A AAA (abdominal aortic aneurysm) (HCC) [I71.4] INVALID FOR* Priority: A More... 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 Bilateral carotid artery disease (HCC) [I77.9] INVALID FOR* Priority: A More... Chronic low back pain without sciatica [M54.5, *INVALID FOR* Priority: M Allergic rhinitis due to pollen [J30.1] INVALID FOR* Priority: B Erectile dysfunction [N52.9] INVALID FOR* Priority: C IBS (irritable bowel syndrome) [K58.9] INVALID FOR* Priority: B Waldenstrom's macroglobulinemia (HCC) [C88.0] INVALID FOR* Priority: A Family history of dementia [Z81.8] INVALID FOR* Priority: F Primary insomnia [F51.01] INVALID FOR* Priority: B DDD (degenerative disc disease), lumbar [M51.36]INVALID FOR* Priority: M Psoriasis [L40.9] INVALID FOR* Priority: D History of colon polyps [Z86.010] INVALID FOR* Priority: C Mixed hyperlipidemia [E78.2] INVALID FOR* Priority: A 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 Well adult exam [Z00.00] INVALID FOR* Priority: E More... Chronic pain syndrome [G89.4] INVALID FOR* Priority: M More... Disorder of prostate [N42.9] INVALID FOR* Benign non-nodular prostatic hyperplasia withou*INVALID FOR* Priority: C Rosacea [L71.9] INVALID FOR* Priority: D Current use of proton pump inhibitor [Z79.899] INVALID FOR* Medications Discontinued During This Encounter methylPREDNISolone (MEDROL, PRIYA,) 4 * 1 Pa* 0 06/02/2017 06/08/2017 Sig: Follow dosing instructions, take with food. Disc: Reason for discontinue is not on file. Disposition: Return if symptoms worsen or fail to improve. Follow-up and Disposition History Recorded Encounter Status:Closed by ALBA AQUINO on 06/08/17 EMERGENCY DEPARTMENT Observed: 06/03/2017 Status: F Source: [place] SUMMARY 12:14 AM [facility] REPOSITORY [facility] Medical Records Department [address] [place] [address] [place] [address] Emergency Department Summary 06/02/17 1535 MR#: [id number] Acct: [id number] Name: CHRISTIANO SORENSEN Rep #: [id number] : 1940 76 From: Jared Rojas MD PCP: Jared Robertson MD Status: DEP ER - ER Visit Summary Date of Service: 06/02/17 Chief Complaint: Left lower back pain History of Present Illness: The patient is a 76 M no prior back surgery. Patient has had a prior AAA repair with endograft stent. He states that he is a C[employer] is been working about 10 hours a day for last several weeks sitting up in a chair going over. Over the last several days he has developed left lower back pain at times radiates down his left leg. It is much worse with movement the left leg. He denies any weakness or numbness. He denies any fall or trauma. He denies any fever. He is on no blood thinners. He was seen at the [facility] urgent care today they put him on a muscle relaxant and discharged him. Denies any bowel or bladder incontinence. Physical Examination: Older male sitting upright in a hallway wheelchair. Vital signs are stable. He is afebrile. H EENT exam unremarkable neck nontender. Lungs clear to auscultation bilaterally. Heart regular rhythm no murmur. Abdomen soft nontender nondistended no giving or masses no pulsatile masses. He has absolutely no abdominal pain or complain of any abdominal pain. Extremities he is moving all 4. His increasing lower back pain on the left with movement of his left leg. Dorsi plantar flexion intact. No cauda equina. No saddle anesthesia. Upper extremities are neurovascular intact with 5 out of 5 motor strength. Clinically the patient has pain on palpation his left SI joint area. His thoracic and lumbar spine are nontender. There is no ecchymosis or bruising. No redness or warmth. Is a positive straight leg raise on the left. Dorsi and plantar flexion is intact in both lower extremities. Test Results: None Emergency Department Course and Treatment: Patient will be treated with I am morphine p.o. Zofran. Reassess. Clinically this does appear to be musculoskeletal. He is absolutely no abdominal pain or any abdominal tenderness do not think this is any do with his AAA. Repeat exam after IM morphine and Dilaudid he is feeling much better. He still has reproducible pain. His lower extremities remained neurovascularly intact there are no signs of cauda equina. He will be discharged to home on prednisone 40 mg a day for 1 week. Livingston for pain. Ice to the area. Treatment Plan: Discharge to home with Livingston for pain. Disposition: Discharged Impression: Acute left lower back pain secondary to acute sciatica This note was generated with [employer]wn[employer] dictation software. It may contain incorrect words, spelling, and punctuation that were not noted in review of the chart prior to signing ED Disposition - Plan for ED Patient: Chief Complaint: Back Referrals: Jared Robertson MD [Primary Care Provider] - What to do if you have Problems For any increased pain, shortness of breath, bleeding, nausea or vomiting, chest pain, or any unexpected problems, contact your Primary Care Provider. Call [facility] ([phone]) or report to the closest Emergency Room. Call 911 if necessary. 06/03/17 0014 <Electronically signed by Jared Rojas MD> Date Jared Rojas MD Cosigner Signature (If Indicated): Date CC: Jared Robertson MD DISCHARGE INSTRUCTION Observed: 06/03/2017 Status: F Source: [place] 12:14 AM [facility] REPOSITORY [facility] Medical Records Department [address] [place] [id number] Discharge Instruction 06/02/17 1859 MR#: [id number] Acct: [id number] Name: CHRISTIANO SORENSEN Rep #: [id number] : 1940 76 From: Jared Rojas MD PCP: Jared Robertson MD Status: DEP ER ED Disposition - Plan for ED Patient: Disposition: Home or Assisted Living Chief Complaint: Back Instructions: ED Sciatica Prescriptions: Hydrocodone Bitart/Apap 5-325 [Livingston 5/325] 1 - 2 tab PO Q4H PRN PRN #30 tab PRN Reason: Pain Prednisone [Deltasone] 40 mg PO DAILY 7 Days tab Referrals: Jared Robertson MD [Primary Care Provider] - 3-5 Days if not improving Additional Instructions: Ice to left back 5 times a day for 20-30 minutes each time. Prednisone 40 mg a day for the next 7 days that will decrease the inflammation. Livingston for pain. 1-2 every 4-6 hours for pain as needed. Drink plenty of fluids and fruits, vegetables and fiber to prevent constipation. This should progressively improve over the next 3-5 days. If it is not getting better or getting worse follow-up your primary care physician or return to the ER if any bowel or bladder incontinence, unable to urinate or leg weakness. What to do if you have Problems For any increased pain, shortness of breath, bleeding, nausea or vomiting, chest pain, or any unexpected problems, contact your Primary Care Provider. Call [facility] ([phone]) or report to the closest Emergency Room. Call 911 if necessary. 06/03/17 0014 <Electronically signed by Jared Rojas MD> Date Jared Rojas MD Cosigner Signature (If Indicated): Date CC: Jared Robertson MD PROGRESS Observed: 06/02/2017 Status: COMPLETED Source: [place] 1:31 PM [facility] [place] REPOSITORY [facility] ID: [id number] Author: Bina (Gasket Notcher) [facility] Service: (none) Author Type: Nurse Practitioner Type: Progress Notes Filed: 06/02/2017 2:08 PM Note Text: Subjective HPI Christiano Sorensen is a 76 year old male who presents with left lower back pain for the past 2 months, seems worse in the last week. He describes it as a shooting, stabbing type of pain and is worse when he tries to walk. He rates the pain an 8/10 when it is sharp. He took a percocet last night which helped him sleep. He did see a chiropractor for this pain but it did not help. He has had this type of back pain in the past and it was helped by a muscle relaxant. He does have a history of an abdominal aneurysm, he had this re-evaluated in June and it was stable and had decreased in size. He denies generalized back pain or abdominal pain. Review of Systems Constitutional: Negative. Negative for fever. Gastrointestinal: Negative. Negative for abdominal pain, diarrhea, nausea and vomiting. Genitourinary: Negative. Negative for dysuria, flank pain, frequency, hematuria and urgency. Musculoskeletal: Positive for back pain. BP 140/78 Pulse (!) 56 Temp 36 ?C (96.8 ?F) (Left Tympanic) Resp 14 Wt 88.9 kg (196 lb) BMI 26.22 kg/m2 PAST MEDICAL HISTORY Diagnosis Date - AAA (abdominal aortic aneurysm) (HCC) - Abdominal pain, left upper quadrant - Allergic rhinitis, cause unspecified - Benign neoplasm of colon - Bronchitis, not specified as acute or chronic - Cardiac dysrhythmia, unspecified - Coronary atherosclerosis of unspecified type of vessel, shinnecock or graft - Degeneration of lumbar or lumbosacral intervertebral disc - Diaphragmatic hernia without mention of obstruction or gangrene - Enlargement of lymph nodes - Esophageal reflux - Impotence of organic origin - Irritable bowel syndrome - Lumbago - Other and unspecified hyperlipidemia - Other dyspnea and respiratory abnormality - Other malaise and fatigue - past medical history skin cancer forehead--unsure which kind - Psoriasis - Thrombocytopenia, unspecified (HCC) - Unspecified constipation PAST SURGICAL HISTORY Procedure Laterality Date - 2D ECHO (EXEP) 01/30/14 EF=60%, LVH, no valve abnormalities - COLONOSCOPY 09/21/2014 Dr. Bright, polyp, repeat 3 yrs - COLONOSCOPY W/BX 11/22/07 - ENDOSCOPY UPPER-EGD/M24 - LAP CHOLECYSTECT/CHOLANGIOGRAPHY 04-12-09 - PAST SURGICAL HISTORY OF 11/2014 AAA repair - PAST SURGICAL HISTORY OF 2016 both eyes cataract removal. - REPAIR UMBILICAL RENÉE,5+Y/O,REDUC 04-12-09 - STRESS TEST 02/27/2014 WNL ALLERGIES Review of patient's allergies indicates no known allergies. MEDICATIONS esomeprazole (NEXIUM) 20 mg capsule Take 1 capsule by mouth twice daily before meals. Per Gastro metroNIDAZOLE 1 % gel Apply 1 application to affected area once daily. Location: face tamsulosin ER (FLOMAX) 0.4 mg cp24 Take 1 capsule by mouth once daily. Tadalafil (CIALIS) 10 mg tablet Take 1 tablet by mouth as needed. gabapentin (NEURONTIN) 300 mg capsule Take 1 capsule by mouth twice daily as needed. cetirizine (ZYRTEC) 10 mg tablet Take 1 tablet by mouth once daily. MEDICATION, NON-DATABASE Takes med for digestive problems but pt doesn't remember name rosuvastatin (CRESTOR) 20 mg tablet Take 20 mg by mouth once daily. aspirin(ASPIR-81 81 MG TAB) One tabs every morning FAMILY HISTORY Problem Relation Age of Onset - Multiple Sclerosis Brother living - Colon Cancer Father 74 of metastatic brain CA - schiophrenia [Other] [OTHER] Sister doing ok since e;ectroshock - Alzheimer's Disease Mother - Diabetes Father Social History Substance Use Topics - Smoking status: Former Smoker Packs/day: 1.00 Years: 8.00 Quit date: 02/15/1974 - Smokeless tobacco: Never Used Comment: NO EXPOSURE TO 2ND HAND SMOKE - Alcohol use Yes Comment: occasionally Objective Physical Exam Constitutional: He is well-developed, well-nourished, and in no distress. Musculoskeletal: Lumbar back: He exhibits decreased range of motion, tenderness and spasm. He exhibits no bony tenderness, no swelling and no deformity. Back: + left lumbar pain with straight leg raise Neurological: He is alert. He has normal sensation and normal strength. He displays no weakness. Gait (guarded gait) abnormal. Coordination normal. Reflex Scores: Patellar reflexes are 1+ on the right side and 1+ on the left side. Skin: Skin is warm and dry. No erythema. Nursing note and vitals reviewed. ASSESSMENT/PLAN: 1. Low back pain radiating to left lower extremity - ICD9: 724.2, ICD10: M54.5 Sciatica - Ice for localized tenderness - Medrol dose pack - Muscle relaxant- see orders - CYCLOBENZAPRINE 10 MG TABLET - METHYLPREDNISOLONE 4 MG TABLETS IN A DOSE PACK -Advised patient to seek care in ER if he develops abdominal pain or generalized back pain or nausea. He verbalized understanding. - Follow-up with your PCP in 3-5 days if symptoms have not improved or sooner if symptoms worsen - Discussed red flags and need for immediate medical evaluation if any occur. - Discussed supportive care treatment with fluids, rest and analgesia. - Discussed expected course of illness Bina Ireland APRN.CNP CNOV Observed: 06/02/2017 Status: COMPLETED Source: [place] 1:30 PM [facility] REPOSITORY Office Visit ([facility]) CHRISTIANO SORENSEN ([id number]) 1940 M Date Time Provider Department 06/02/17 1:30 PM BINA IRELAND ([place]) WS During your visit today, we recorded the following information about you: Temperature Pulse Respiration Blood pressure 96.8 degrees 56/minute 14/minute 140/78 Weight 88.9 kg Bina Ireland APRN.CNP 06/02/2017 2:08 PM Signed Subjective HPI Christiano Sorensen is a 76 year old male who presents with left lower back pain for the past 2 months, seems worse in the last week. He describes it as a shooting, stabbing type of pain and is worse when he tries to walk. He rates the pain an 8/10 when it is sharp. He took a percocet last night which helped him sleep. He did see a chiropractor for this pain but it did not help. He has had this type of back pain in the past and it was helped by a muscle relaxant. He does have a history of an abdominal aneurysm, he had this re-evaluated in June and it was stable and had decreased in size. He denies generalized back pain or abdominal pain. Review of Systems Constitutional: Negative. Negative for fever. Gastrointestinal: Negative. Negative for abdominal pain, diarrhea, nausea and vomiting. Genitourinary: Negative. Negative for dysuria, flank pain, frequency, hematuria and urgency. Musculoskeletal: Positive for back pain. BP 140/78 Pulse (!) 56 Temp 36 ?C (96.8 ?F) (Left Tympanic) Resp 14 Wt 88.9 kg (196 lb) BMI 26.22 kg/m2 PAST MEDICAL HISTORY Diagnosis Date - AAA (abdominal aortic aneurysm) (HCC) - Abdominal pain, left upper quadrant - Allergic rhinitis, cause unspecified - Benign neoplasm of colon - Bronchitis, not specified as acute or chronic - Cardiac dysrhythmia, unspecified - Coronary atherosclerosis of unspecified type of vessel, shinnecock or graft - Degeneration of lumbar or lumbosacral intervertebral disc - Diaphragmatic hernia without mention of obstruction or gangrene - Enlargement of lymph nodes - Esophageal reflux - Impotence of organic origin - Irritable bowel syndrome - Lumbago - Other and unspecified hyperlipidemia - Other dyspnea and respiratory abnormality - Other malaise and fatigue - past medical history skin cancer forehead--unsure which kind - Psoriasis - Thrombocytopenia, unspecified (HCC) - Unspecified constipation PAST SURGICAL HISTORY Procedure Laterality Date - 2D ECHO (EXEP) 01/30/14 EF=60%, LVH, no valve abnormalities - COLONOSCOPY 09/21/2014 Dr. Bright, polyp, repeat 3 yrs - COLONOSCOPY W/BX 11/22/07 - ENDOSCOPY UPPER-EGD/M24 - LAP CHOLECYSTECT/CHOLANGIOGRAPHY 04-12-09 - PAST SURGICAL HISTORY OF 11/2014 AAA repair - PAST SURGICAL HISTORY OF 2015 both eyes cataract removal. - REPAIR UMBILICAL RENÉE,5+Y/O,REDUC 04-12-09 - STRESS TEST 02/27/2014 WNL ALLERGIES Review of patient's allergies indicates no known allergies. MEDICATIONS esomeprazole (NEXIUM) 20 mg capsule Take 1 capsule by mouth twice daily before meals. Per Gastro metroNIDAZOLE 1 % gel Apply 1 application to affected area once daily. Location: face tamsulosin ER (FLOMAX) 0.4 mg cp24 Take 1 capsule by mouth once daily. Tadalafil (CIALIS) 10 mg tablet Take 1 tablet by mouth as needed. gabapentin (NEURONTIN) 300 mg capsule Take 1 capsule by mouth twice daily as needed. cetirizine (ZYRTEC) 10 mg tablet Take 1 tablet by mouth once daily. MEDICATION, NON-DATABASE Takes med for digestive problems but pt doesn't remember name rosuvastatin (CRESTOR) 20 mg tablet Take 20 mg by mouth once daily. aspirin(ASPIR-81 81 MG TAB) One tabs every morning FAMILY HISTORY Problem Relation Age of Onset - Multiple Sclerosis Brother living - Colon Cancer Father 74 of metastatic brain CA - schiophrenia [Other] [OTHER] Sister doing ok since e;ectroshock - Alzheimer's Disease Mother - Diabetes Father Social History Substance Use Topics - Smoking status: Former Smoker Packs/day: 1.00 Years: 8.00 Quit date: 02/15/1974 - Smokeless tobacco: Never Used Comment: NO EXPOSURE TO 2ND HAND SMOKE - Alcohol use Yes Comment: occasionally Objective Physical Exam Constitutional: He is well-developed, well-nourished, and in no distress. Musculoskeletal: Lumbar back: He exhibits decreased range of motion, tenderness and spasm. He exhibits no bony tenderness, no swelling and no deformity. Back: + left lumbar pain with straight leg raise Neurological: He is alert. He has normal sensation and normal strength. He displays no weakness. Gait (guarded gait) abnormal. Coordination normal. Reflex Scores: Patellar reflexes are 1+ on the right side and 1+ on the left side. Skin: Skin is warm and dry. No erythema. Nursing note and vitals reviewed. ASSESSMENT/PLAN: 1. Low back pain radiating to left lower extremity - ICD9: 724.2, ICD10: M54.5 Sciatica - Ice for localized tenderness - Medrol dose pack - Muscle relaxant- see orders - CYCLOBENZAPRINE 10 MG TABLET - METHYLPREDNISOLONE 4 MG TABLETS IN A DOSE PACK -Advised patient to seek care in ER if he develops abdominal pain or generalized back pain or nausea. He verbalized understanding. - Follow-up with your PCP in 3-5 days if symptoms have not improved or sooner if symptoms worsen - Discussed red flags and need for immediate medical evaluation if any occur. - Discussed supportive care treatment with fluids, rest and analgesia. - Discussed expected course of illness CHRISTINA Grover APRN.CNP 06/02/2017 1:46 PM Signed Take medications as prescribed. If not improving in 3-5 days, or you have worsening symptoms, see your primary care provider for recheck. EMERGENCY DEPARTMENT LOW BACK PAIN GENERAL INFORMATION: Low back pain is located in the small of the back. The pain may be related to sprained muscles or ligaments, to muscle spasms, or to herniation of a spinal disc. There are many possible causes of back pain, but the most common causes are gradual wear and tear, physical and emotional stress, and weak or tense muscles from lack of proper exercise. The pain can develop quickly or overnight and may be caused by unusual exertion such as moving furniture or heavy lifting. Low back pain can be severe, and sometimes you may be unable to move without pain. INSTRUCTIONS: 1. During the first 24 hours, apply ice packs to your back for 10-20 minutes 3 to 4 times a day. Put the ice in a plastic bag and place a towel between the bag of ice and your skin. After 24 hours, apply heat to your back with a heating pad set on low or a warm water bottle for 30 minutes every 3 to 4 hours. A gentle massage and warm showers may also be helpful. 2. Stay in bed for 1 to 2 days. Then begin normal activities as you can tolerate without causing pain. 3. Bend at the hips and knees; never bend from the waist only. Lift with your legs, not your back. 4. Sleep on a firm mattress or put a ? to 1 inch piece of plywood between the mattress and box springs. Do not use a waterbed because it does not support your back correctly. Sleep with a pillow under your knees or sleep on your side with your knees bent. 5. Wear low-heeled shoes. 6. If you are overweight, losing weight will help prevent another attack. 7. Begin a program of back exercises to prevent future episodes of pain. Walking, swimming, and bicycling are good exercise. Avoid exercises that put stress on the back, such as rowing and jogging. CONTACT YOUR DOCTOR OR RETURN TO THE ED IF: 1. You have shooting pains into your buttocks, groin, or legs. 2. You have difficulty urinating or lose control of bowel or bladder function. 3. You have numbness or weakness in your legs or feet. Referring Provider: SELF [[id number]] Allergies As of Date: 06/02/2017 (No Known Allergies) Date Reviewed: 06/02/2017 Reviewed by: Bina ([facility]) Beka - Fully Assessed Reason for Visit: Back Pain [12] Primary Visit Diagnosis:Low back pain radiating to left lower extremity [M54.5] Order(s):cyclobenzaprine (FLEXERIL) 10 mg tabletTake 1 tablet by mouth three times daily as needed for Muscle Spasm.Disp: 9 tabletRfl: 0 methylPREDNISolone (MEDROL, PRIYA,) 4 mg Dose-PackFollow dosing instructions, take with food.Disp: 1 PackageRfl: 0 Prescriptions as of 06/02/2017 Sig: CYCLOBENZAPRINE 10 MG TABLET Take 1 tablet by mouth three * METHYLPREDNISOLONE 4 MG TABLE* Follow dosing instructions, t* ESOMEPRAZOLE MAGNESIUM 20 MG * Take 1 capsule by mouth twice* METRONIDAZOLE 1 % TOPICAL GEL Apply 1 application to affect* TAMSULOSIN 0.4 MG CAPSULE Take 1 capsule by mouth once * TADALAFIL 10 MG TABLET Take 1 tablet by mouth as nee* GABAPENTIN 300 MG CAPSULE Take 1 capsule by mouth twice* CETIRIZINE 10 MG TABLET Take 1 tablet by mouth once d* MEDICATION, NON-DATABASE Takes med for digestive probl* ROSUVASTATIN 20 MG TABLET Take 20 mg by mouth once maxine* * ASPIR-81 81 MG TABLET,DELAYED* One tabs every morning Problem List As Of Date 06/02/2017 Noted Resolved Chronic bronchitis (HCC) [J42] INVALID FOR* Priority: A AAA (abdominal aortic aneurysm) (HCC) [I71.4] INVALID FOR* Priority: A More... 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 Bilateral carotid artery disease (HCC) [I77.9] INVALID FOR* Priority: A More... Chronic low back pain without sciatica [M54.5, *INVALID FOR* Priority: M Allergic rhinitis due to pollen [J30.1] INVALID FOR* Priority: B Erectile dysfunction [N52.9] INVALID FOR* Priority: C IBS (irritable bowel syndrome) [K58.9] INVALID FOR* Priority: B Waldenstrom's macroglobulinemia (HCC) [C88.0] INVALID FOR* Priority: A Family history of dementia [Z81.8] INVALID FOR* Priority: F Primary insomnia [F51.01] INVALID FOR* Priority: B DDD (degenerative disc disease), lumbar [M51.36]INVALID FOR* Priority: M Psoriasis [L40.9] INVALID FOR* Priority: D History of colon polyps [Z86.010] INVALID FOR* Priority: C Mixed hyperlipidemia [E78.2] INVALID FOR* Priority: A 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 Well adult exam [Z00.00] INVALID FOR* Priority: E More... Chronic pain syndrome [G89.4] INVALID FOR* Priority: M More... Disorder of prostate [N42.9] INVALID FOR* Benign non-nodular prostatic hyperplasia withou*INVALID FOR* Priority: C Rosacea [L71.9] INVALID FOR* Priority: D Current use of proton pump inhibitor [Z79.899] INVALID FOR* Other instructions from your clinician: Take medications as prescribed. If not improving in 3- 5 days, or you have worsening symptoms, see your primary care provider for recheck. EMERGENCY DEPARTMENT LOW BACK PAIN GENERAL INFORMATION: Low back pain is located in the small of the back. The pain may be related to sprained muscles or ligaments, to muscle spasms, or to herniation of a spinal disc. There are many possible causes of back pain, but the most common causes are gradual wear and tear, physical and emotional stress, and weak or tense muscles from lack of proper exercise. The pain can develop quickly or overnight and may be caused by unusual exertion such as moving furniture or heavy lifting. Low back pain can be severe, and sometimes you may be unable to move without pain. INSTRUCTIONS: 1. During the first 24 hours, apply ice packs to your back for 10-20 minutes 3 to 4 times a day. Put the ice in a plastic bag and place a towel between the bag of ice and your skin. After 24 hours, apply heat to your back with a heating pad set on low or a warm water bottle for 30 minutes every 3 to 4 hours. A gentle massage and warm showers may also be helpful. 2. Stay in bed for 1 to 2 days. Then begin normal activities as you can tolerate without causing pain. 3. Bend at the hips and knees; never bend from the waist only. Lift with your legs, not your back. 4. Sleep on a firm mattress or put a ? to 1 inch piece of plywood between the mattress and box springs. Do not use a waterbed because it does not support your back correctly. Sleep with a pillow under your knees or sleep on your side with your knees bent. 5. Wear low-heeled shoes. 6. If you are overweight, losing weight will help prevent another attack. 7. Begin a program of back exercises to prevent future episodes of pain. Walking, swimming, and bicycling are good exercise. Avoid exercises that put stress on the back, such as rowing and jogging. CONTACT YOUR DOCTOR OR RETURN TO THE ED IF: 1. You have shooting pains into your buttocks, groin, or legs. 2. You have difficulty urinating or lose control of bowel or bladder function. 3. You have numbness or weakness in your legs or feet. Prescriptions ordered this encounter Disp Refills Start End CYCLOBENZAPRINE 10 MG TABLET 9 ta* 0 06/02/2017 Route: ORAL Sig: Take 1 tablet by mouth three times daily as needed for Muscle Spasm. METHYLPREDNISOLONE 4 MG TABLETS IN A* 1 Pa* 0 06/02/2017 06/08/2017 Sig: Follow dosing instructions, take with food. Encounter Status:Closed by BINA IRELAND on 06/02/17 PROGRESS Observed: 05/12/2017 Status: COMPLETED Source: [place] 8:09 AM [facility] [place] REPOSITORY O ID: [id number] Author: Jared Robertson Service: (none) Author Type: Physician Type: Progress Notes Filed: 05/12/2017 9:49 AM Note Text: Chief Complaint Patient presents with: Recheck: 6 months HPI Christiano Sorensen is a 76 year old male who presents here today for Chronic Medical Conditions.. Patient with hx as reviewed and documented below. Last saw oncology at [facility] back in March. Was told he had a slight bump in what he thinks was his M protein and monitoring. Past medical history, appointments, medications, allergies reviewed. Previous Medical History PAST MEDICAL HISTORY Diagnosis Date - AAA (abdominal aortic aneurysm) (HCC) - Abdominal pain, left upper quadrant - Allergic rhinitis, cause unspecified - Benign neoplasm of colon - Bronchitis, not specified as acute or chronic - Cardiac dysrhythmia, unspecified - Coronary atherosclerosis of unspecified type of vessel, shinnecock or graft - Degeneration of lumbar or lumbosacral intervertebral disc - Diaphragmatic hernia without mention of obstruction or gangrene - Enlargement of lymph nodes - Esophageal reflux - Impotence of organic origin - Irritable bowel syndrome - Lumbago - Other and unspecified hyperlipidemia - Other dyspnea and respiratory abnormality - Other malaise and fatigue - past medical history skin cancer forehead--unsure which kind - Psoriasis - Thrombocytopenia, unspecified (HCC) - Unspecified constipation Previous Surgical History PAST SURGICAL HISTORY Procedure Laterality Date - 2D ECHO (EXEP) 01/30/14 EF=60%, LVH, no valve abnormalities - COLONOSCOPY 09/21/2014 Dr. Bright, polyp, repeat 3 yrs - COLONOSCOPY W/BX 11/22/07 - ENDOSCOPY UPPER-EGD/M24 - LAP CHOLECYSTECT/CHOLANGIOGRAPHY 04-12-09 - PAST SURGICAL HISTORY OF 11/2014 AAA repair - PAST SURGICAL HISTORY OF 2015 both eyes cataract removal. - REPAIR UMBILICAL RENÉE,5+Y/O,REDUC 04-12-09 - STRESS TEST 02/27/2014 WNL Family History FAMILY HISTORY Problem Relation Age of Onset - Multiple Sclerosis Brother living - Colon Cancer Father 74 of metastatic brain CA - schiophrenia [Other] [OTHER] Sister doing ok since e;ectroshock - Alzheimer's Disease Mother - Diabetes Father Patient Allergies ALLERGIES No Known Allergies Current Medications Current Outpatient Prescriptions on File Prior to Visit: esomeprazole (NEXIUM) 20 mg capsule Take 1 capsule by mouth twice daily before meals. Per Gastro metroNIDAZOLE 1 % gel Apply 1 application to affected area once daily. Location: face tamsulosin ER (FLOMAX) 0.4 mg cp24 Take 1 capsule by mouth once daily. Tadalafil (CIALIS) 10 mg tablet Take 1 tablet by mouth as needed. gabapentin (NEURONTIN) 300 mg capsule Take 1 capsule by mouth twice daily as needed. cetirizine (ZYRTEC) 10 mg tablet Take 1 tablet by mouth once daily. MEDICATION, NON-DATABASE Takes med for digestive problems but pt doesn't remember name rosuvastatin (CRESTOR) 20 mg tablet Take 20 mg by mouth once daily. aspirin(ASPIR-81 81 MG TAB) One tabs every morning No current facility-administered medications on file prior to visit. Social History Social History Marital status: Single Spouse name: Years of education: Number of children: Social History Main Topics Smoking status: Former Smoker Packs/day: 1.00 Years: 8.00 Quit date: 02/15/1974 Smokeless status: Never Used Comment: NO EXPOSURE TO 2ND HAND SMOKE Alcohol use: Yes Comment: occasionally Drug use: No Sexual activity: Yes Partners with: Female Review of Symptoms REVIEW OF SYSTEMS GENERAL: No weight loss, malaise or fevers or night sweats. HEENT: has had some post nasal drainage the past few weeks and irritated throat. Better with claritin. Not a issue in the last few days. NECK: Negative for lumps, goiter, pain and significant neck swelling RESPIRATORY: Negative for cough, hemoptysis, wheezing, COPD, dyspnea or shortness of breath CARDIOVASCULAR: Negative for chest pain, leg swelling, hypertension, CHF or changes in his typical palpitations. GI: No nausea, vomiting, or diarrhea and No heartburn or reflux symptoms NEURO: No history of headaches, syncope, paralysis, seizures or tremors EXAM: BP 122/64 (BP Site: Left Arm, BP Position: Sitting, BP Cuff Size: Large Adult) Pulse 80 Resp 16 Wt 88.9 kg (196 lb) BMI 26.22 kg/m2 General Appearance: Well appearing, alert, in no acute distress, well-hydrated, well nourished.. Neck: Supple, no adenopathy; thyroid symmetric, normal size, no bruits. Lungs: Lungs clear to auscultation. No wheezing, rhonchi, rales. Heart: RRR without murmur, gallop, or rubs. No ectopy. Abdomen: Normal abdominal exam, Abdomen soft, non-tender. Bowel sounds normal. No masses, organomegaly. Extremities: No deformities, edema. Musculoskeletal: Negative. Peripheral Pulses: Normal. Health Maintenance List COLORECTAL CANCER SCREENING,SEE MODIFIER due on 09/22/2019 DIABETES SCREEN due on 12/31/2019 TETANUS due on 10/31/2020 LIPID SCREEN due on 11/07/2021 PROSTATE CANCER SCREENING DISCUSSION Completed ADULT PREVNAR-13 Completed INFLUENZA Completed PNEUMOVAX AGE 65 AND OVER WITH 5YR LOOKBACK Completed Data reviewed Component Latest Ref Rng AND Units 11/07/2016 11/26/2016 Protein, Total 6.3 - 8.0 g/dL 6.8 Albumin 3.9 - 4.9 g/dL 3.9 Calcium 8.5 - 10.2 mg/dL 6.5 (L) Bilirubin, Total 0.2 - 1.3 mg/dL 1.2 Alkaline Phosphatase 36 - 108 U/L 77 AST 14 - 40 U/L 21 Glucose 74 - 99 mg/dL 90 BUN 9 - 24 mg/dL 22 Creatinine 0.73 - 1.22 mg/dL 1.13 Sodium 136 - 144 mmol/L 140 Potassium 3.7 - 5.1 mmol/L 4.1 Chloride 97 - 105 mmol/L 102 CO2 22 - 30 mmol/L 29 Anion Gap 9 - 18 mmol/L 9 ALT 10 - 54 U/L 17 eGFR- >60 eGFR-All Other Races . >60 Triglyceride 30 - 149 mg/dL 94 Cholesterol, Total 100 - 199 mg/dL 128 HDL Cholesterol >45 mg/dL 45 (L) VLDL Cholesterol 6 - 40 mg/dL 19 LDL Cholesterol 60 - 129 mg/dL 64 Fasting Time hrs 12 TC:HDL Ratio 1.00 - 5.00 2.84 LDL:HDL Ratio 0.50 - 3.55 1.42 Non HDL Cholesterol 90 - 159 mg/dL 83 (L) Magnesium 1.7 - 2.3 mg/dL 2.0 Component Latest Ref Rng AND Units 11/26/2016 Ionized Calcium 1.08 - 1.30 mmol/L 1.27 Normalized CAlcium 1.08 - 1.30 mmol/L 1.23 Calcium 8.5 - 10.2 mg/dL 9.1 A/P ASSESSMENT/PLAN: 1. Mixed hyperlipidemia - ICD9: 272.2, ICD10: E78.2 (primary diagnosis) - good control - Continue current dose of rosuvastatin (Crestor) 20 mg. - Encouraged following a low fat, low cholesterol diet. - Discussed the benefits of regular aerobic exercise and weight loss. - Encouraged following a low carbohydrate, healthy oil intake diet. 2. Bilateral carotid artery disease (HCC) - ICD9: 447.9, ICD10: I77.9 - Will check bilateral US 3. 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 - ICD9: 414.3, ICD10: I25.10, I25.83 - Clinically stable no changes. 4. Waldenstrom's macroglobulinemia (HCC) - ICD9: 273.3, ICD10: C88.0 - Will get copy of last [facility] oncology office note. 5. GERD without esophagitis - ICD9: 530.81, ICD10: K21.9 - Continue treatment with Nexium 20 mg QD 6. Anemia, unspecified type - ICD9: 285.9, ICD10: D64.9 - Cont with oncology 7. 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 Abdominal aortic aneurysm (AAA) without rupture (HCC) - ICD9: 441.4, ICD10: I71.4 - cont f/u with vascular. 10. Chronic bronchitis, unspecified chronic bronchitis type (HCC) - ICD9: 491.9, ICD10: J42 - clinically stable no changes 11. Other disorders of arteries, arterioles and capillaries in diseases classified elsewhere (HCC) - ICD9: 443.81, ICD10: I79.8 Check - US CAROTID ARTERIES DIO VAS LAB F/u 6 months WAE check CMP, FLP, UA, Mg, PSA and CBC prior. Time with patient face to face was 25 min Jared Robertson MD CNOV Observed: 05/12/2017 Status: COMPLETED Source: [place] 8:00 AM [facility] REPOSITORY Office Visit (FAMPWS) CHRISTIANO SORENSEN ([id number]) 1940 M Date Time Provider Department 05/12/17 8:00 AM [facility] During your visit today, we recorded the following information about you: Pulse Respiration Blood pressure Weight 80/minute 16/minute 122/64 88.9 kg Jared Robertson MD 05/12/2017 9:49 AM Signed Chief Complaint Patient presents with: Recheck: 6 months HPI Christiano Sorensen is a 76 year old male who presents here today for Chronic Medical Conditions.. Patient with hx as reviewed and documented below. Last saw oncology at [facility] back in March. Was told he had a slight bump in what he thinks was his M protein and monitoring. Past medical history, appointments, medications, allergies reviewed. Previous Medical History PAST MEDICAL HISTORY Diagnosis Date - AAA (abdominal aortic aneurysm) (HCC) - Abdominal pain, left upper quadrant - Allergic rhinitis, cause unspecified - Benign neoplasm of colon - Bronchitis, not specified as acute or chronic - Cardiac dysrhythmia, unspecified - Coronary atherosclerosis of unspecified type of vessel, shinnecock or graft - Degeneration of lumbar or lumbosacral intervertebral disc - Diaphragmatic hernia without mention of obstruction or gangrene - Enlargement of lymph nodes - Esophageal reflux - Impotence of organic origin - Irritable bowel syndrome - Lumbago - Other and unspecified hyperlipidemia - Other dyspnea and respiratory abnormality - Other malaise and fatigue - past medical history skin cancer forehead--unsure which kind - Psoriasis - Thrombocytopenia, unspecified (HCC) - Unspecified constipation Previous Surgical History PAST SURGICAL HISTORY Procedure Laterality Date - 2D ECHO (EXEP) 01/30/14 EF=60%, LVH, no valve abnormalities - COLONOSCOPY 09/21/2014 Dr. Bright, polyp, repeat 3 yrs - COLONOSCOPY W/BX 11/22/07 - ENDOSCOPY UPPER-EGD/M24 - LAP CHOLECYSTECT/CHOLANGIOGRAPHY 04-12-09 - PAST SURGICAL HISTORY OF 11/2014 AAA repair - PAST SURGICAL HISTORY OF 2015 both eyes cataract removal. - REPAIR UMBILICAL RENÉE,5+Y/O,REDUC 04-12-09 - STRESS TEST 02/27/2014 WNL Family History FAMILY HISTORY Problem Relation Age of Onset - Multiple Sclerosis Brother living - Colon Cancer Father 74 of metastatic brain CA - schiophrenia [Other] [OTHER] Sister doing ok since e;ectroshock - Alzheimer's Disease Mother - Diabetes Father Patient Allergies ALLERGIES No Known Allergies Current Medications Current Outpatient Prescriptions on File Prior to Visit: esomeprazole (NEXIUM) 20 mg capsule Take 1 capsule by mouth twice daily before meals. Per Gastro metroNIDAZOLE 1 % gel Apply 1 application to affected area once daily. Location: face tamsulosin ER (FLOMAX) 0.4 mg cp24 Take 1 capsule by mouth once daily. Tadalafil (CIALIS) 10 mg tablet Take 1 tablet by mouth as needed. gabapentin (NEURONTIN) 300 mg capsule Take 1 capsule by mouth twice daily as needed. cetirizine (ZYRTEC) 10 mg tablet Take 1 tablet by mouth once daily. MEDICATION, NON-DATABASE Takes med for digestive problems but pt doesn't remember name rosuvastatin (CRESTOR) 20 mg tablet Take 20 mg by mouth once daily. aspirin(ASPIR-81 81 MG TAB) One tabs every morning No current facility-administered medications on file prior to visit. Social History Social History Marital status: Single Spouse name: Years of education: Number of children: Social History Main Topics Smoking status: Former Smoker Packs/day: 1.00 Years: 8.00 Quit date: 02/15/1974 Smokeless status: Never Used Comment: NO EXPOSURE TO 2ND HAND SMOKE Alcohol use: Yes Comment: occasionally Drug use: No Sexual activity: Yes Partners with: Female Review of Symptoms REVIEW OF SYSTEMS GENERAL: No weight loss, malaise or fevers or night sweats. HEENT: has had some post nasal drainage the past few weeks and irritated throat. Better with claritin. Not a issue in the last few days. NECK: Negative for lumps, goiter, pain and significant neck swelling RESPIRATORY: Negative for cough, hemoptysis, wheezing, COPD, dyspnea or shortness of breath CARDIOVASCULAR: Negative for chest pain, leg swelling, hypertension, CHF or changes in his typical palpitations. GI: No nausea, vomiting, or diarrhea and No heartburn or reflux symptoms NEURO: No history of headaches, syncope, paralysis, seizures or tremors EXAM: BP 122/64 (BP Site: Left Arm, BP Position: Sitting, BP Cuff Size: Large Adult) Pulse 80 Resp 16 Wt 88.9 kg (196 lb) BMI 26.22 kg/m2 General Appearance: Well appearing, alert, in no acute distress, well-hydrated, well nourished.. Neck: Supple, no adenopathy; thyroid symmetric, normal size, no bruits. Lungs: Lungs clear to auscultation. No wheezing, rhonchi, rales. Heart: RRR without murmur, gallop, or rubs. No ectopy. Abdomen: Normal abdominal exam, Abdomen soft, non-tender. Bowel sounds normal. No masses, organomegaly. Extremities: No deformities, edema. Musculoskeletal: Negative. Peripheral Pulses: Normal. Health Maintenance List COLORECTAL CANCER SCREENING,SEE MODIFIER due on 09/22/2019 DIABETES SCREEN due on 12/31/2019 TETANUS due on 10/31/2020 LIPID SCREEN due on 11/07/2021 PROSTATE CANCER SCREENING DISCUSSION Completed ADULT PREVNAR-13 Completed INFLUENZA Completed PNEUMOVAX AGE 65 AND OVER WITH 5YR LOOKBACK Completed Data reviewed Component Latest Ref Rng ANDamp; Units 11/07/2016 11/26/2016 Protein, Total 6.3 - 8.0 g/dL 6.8 Albumin 3.9 - 4.9 g/dL 3.9 Calcium 8.5 - 10.2 mg/dL 6.5 (L) Bilirubin, Total 0.2 - 1.3 mg/dL 1.2 Alkaline Phosphatase 36 - 108 U/L 77 AST 14 - 40 U/L 21 Glucose 74 - 99 mg/dL 90 BUN 9 - 24 mg/dL 22 Creatinine 0.73 - 1.22 mg/dL 1.13 Sodium 136 - 144 mmol/L 140 Potassium 3.7 - 5.1 mmol/L 4.1 Chloride 97 - 105 mmol/L 102 CO2 22 - 30 mmol/L 29 Anion Gap 9 - 18 mmol/L 9 ALT 10 - 54 U/L 17 eGFR- ANDgt;60 eGFR-All Other Races . ANDgt;60 Triglyceride 30 - 149 mg/dL 94 Cholesterol, Total 100 - 199 mg/dL 128 HDL Cholesterol ANDgt;45 mg/dL 45 (L) VLDL Cholesterol 6 - 40 mg/dL 19 LDL Cholesterol 60 - 129 mg/dL 64 Fasting Time hrs 12 TC:HDL Ratio 1.00 - 5.00 2.84 LDL:HDL Ratio 0.50 - 3.55 1.42 Non HDL Cholesterol 90 - 159 mg/dL 83 (L) Magnesium 1.7 - 2.3 mg/dL 2.0 Component Latest Ref Rng ANDamp; Units 11/26/2016 Ionized Calcium 1.08 - 1.30 mmol/L 1.27 Normalized CAlcium 1.08 - 1.30 mmol/L 1.23 Calcium 8.5 - 10.2 mg/dL 9.1 A/P ASSESSMENT/PLAN: 1. Mixed hyperlipidemia - ICD9: 272.2, ICD10: E78.2 (primary diagnosis) - good control - Continue current dose of rosuvastatin (Crestor) 20 mg. - Encouraged following a low fat, low cholesterol diet. - Discussed the benefits of regular aerobic exercise and weight loss. - Encouraged following a low carbohydrate, healthy oil intake diet. 2. Bilateral carotid artery disease (HCC) - ICD9: 447.9, ICD10: I77.9 - Will check bilateral US 3. 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 - ICD9: 414.3, ICD10: I25.10, I25.83 - Clinically stable no changes. 4. Waldenstrom's macroglobulinemia (HCC) - ICD9: 273.3, ICD10: C88.0 - Will get copy of last [facility] oncology office note. 5. GERD without esophagitis - ICD9: 530.81, ICD10: K21.9 - Continue treatment with Nexium 20 mg QD 6. Anemia, unspecified type - ICD9: 285.9, ICD10: D64.9 - Cont with oncology 7. 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 Abdominal aortic aneurysm (AAA) without rupture (HCC) - ICD9: 441.4, ICD10: I71.4 - cont f/u with vascular. 10. Chronic bronchitis, unspecified chronic bronchitis type (HCC) - ICD9: 491.9, ICD10: J42 - clinically stable no changes 11. Other disorders of arteries, arterioles and capillaries in diseases classified elsewhere (HCC) - ICD9: 443.81, ICD10: I79.8 Check - US CAROTID ARTERIES DIO VAS LAB F/u 6 months WAE check CMP, FLP, UA, Mg, PSA and CBC prior. Time with patient face to face was 25 min MD Jared Lund MD 05/12/2017 8:31 AM Signed Please get fasting labs and urine on or after 11/05/2017 prior to next visit. Referring Provider: JARED ROBERTSON [[id number]] Allergies As of Date: 05/12/2017 (No Known Allergies) Date Reviewed: 05/12/2017 Reviewed by: Jared Robertson - Fully Assessed Reason for Visit: Recheck [92] Cmt: 6 months Primary Visit Diagnosis:Mixed hyperlipidemia [E78.2] Other Visit Diagnoses:Bilateral carotid artery disease (HCC) [I77.9] 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 [I25.10, I25.83] Waldenstrom's macroglobulinemia (HCC) [C88.0] GERD without esophagitis [K21.9] Anemia, unspecified type [D64.9] Thrombocytopenia (HCC) [D69.6] Malignant lymphoplasmacytic lymphoma (HCC) [C83.00] Abdominal aortic aneurysm (AAA) without rupture (HCC) [I71.4] Chronic bronchitis, unspecified chronic bronchitis type (HCC) [J42] Other disorders of arteries, arterioles and capillaries in diseases classified elsewhere (HCC) [I79.8] Current use of proton pump inhibitor [Z79.899] Disorder of prostate [N42.9] Order(s):US CAROTID ARTERIES DIO VAS LAB [[id number]] Order #: [id number] FUTURE COMP METABOLIC PANEL [SQCMP] Order #: [id number] FUTURE LIPID PANEL BASIC [SQLIPB] Order #: [id number] FUTURE PSA/PROSTSPECAG DIAG [SQPSA] Order #: [id number] FUTURE URINALYSIS WITH MICROSCOPIC [SQUAWMIC] Order #: [id number] FUTURE MAGNESIUM BLD [SQMG1] Order #: [id number] FUTURE CBC + DIFF [SQCBCDIF] Order #: [id number] FUTURE Prescriptions as of 05/12/2017 Sig: ESOMEPRAZOLE MAGNESIUM 20 MG * Take 1 capsule by mouth twice* METRONIDAZOLE 1 % TOPICAL GEL Apply 1 application to affect* TAMSULOSIN 0.4 MG CAPSULE Take 1 capsule by mouth once * TADALAFIL 10 MG TABLET Take 1 tablet by mouth as nee* GABAPENTIN 300 MG CAPSULE Take 1 capsule by mouth twice* CETIRIZINE 10 MG TABLET Take 1 tablet by mouth once d* MEDICATION, NON-DATABASE Takes med for digestive probl* ROSUVASTATIN 20 MG TABLET Take 20 mg by mouth once maxine* * ASPIR-81 81 MG TABLET,DELAYED* One tabs every morning Problem List As Of Date 05/12/2017 Noted Resolved Chronic bronchitis (HCC) [J42] INVALID FOR* Priority: A AAA (abdominal aortic aneurysm) (HCC) [I71.4] INVALID FOR* Priority: A More... 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 Bilateral carotid artery disease (HCC) [I77.9] INVALID FOR* Priority: A More... Chronic low back pain without sciatica [M54.5, *INVALID FOR* Priority: M Allergic rhinitis due to pollen [J30.1] INVALID FOR* Priority: B Erectile dysfunction [N52.9] INVALID FOR* Priority: C IBS (irritable bowel syndrome) [K58.9] INVALID FOR* Priority: B Waldenstrom's macroglobulinemia (HCC) [C88.0] INVALID FOR* Priority: A Family history of dementia [Z81.8] INVALID FOR* Priority: F Primary insomnia [F51.01] INVALID FOR* Priority: B DDD (degenerative disc disease), lumbar [M51.36]INVALID FOR* Priority: M Psoriasis [L40.9] INVALID FOR* Priority: D History of colon polyps [Z86.010] INVALID FOR* Priority: C Mixed hyperlipidemia [E78.2] INVALID FOR* Priority: A 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 Well adult exam [Z00.00] INVALID FOR* Priority: E More... Chronic pain syndrome [G89.4] INVALID FOR* Priority: M More... Disorder of prostate [N42.9] INVALID FOR* Benign non-nodular prostatic hyperplasia withou*INVALID FOR* Priority: C Rosacea [L71.9] INVALID FOR* Priority: D Current use of proton pump inhibitor [Z79.899] INVALID FOR* Other instructions from your clinician: Please get fasting labs and urine on or after 11/05/2017 prior to next visit. Disposition: Return in about 6 months (around 11/12/2017) for complete PE. Follow-up and Disposition History Recorded Encounter Status:Closed by JARED ROBERTSON on 05/12/17 CNCO Observed: 05/12/2017 Status: COMPLETED Source: [place] 12:00 AM [facility] REPOSITORY Letter Text . [facility] AUTHORIZATION FOR THE RELEASE OF MEDICAL INFORMATION FROM OTHER HEALTHCARE FACILITIES [facility] [address] [address] Name: Christiano Sorensen Date of : 1940 [address] [place] [address] (home) [phone] (work) Reason for Disclosure: Continuity of Care. Release Information From: Name of Provider/Facility: Street: City: State: Zip: Fax: Phone: Release Information To: Office Receiving: Jared Robertson MD PLEASE FAX TO: [phone] I hereby authorize to release the health information indicated below that is contained in my patient records to the Recipient named above. I understand and acknowledge that this may include treatment for physical and mental illness, alcohol/drug abuse and or HIV/AIDS test results or diagnosis. This authorization does not include permission to release outpatient Psychotherapy Notes* as defined below. The release of Psychotherapy Notes requires a separate authorization. REPORTS REQUESTED: This consent is subject to revocation at any time except to the extent the action has been taken thereon. This authorization and consent will in one year from the date of authorization written below. Your health care (or payment for care) will not be affected by whether or not you sign this authorization. Once your health care information is released, re-disclosure of your health care information by the Recipient my no longer be protected by law. Signature of Patient/Legal Guardian Printed Name Date Signed: ____/ / Relationship if not Patient If other than patient?s signature, a copy of the legal papers verifying authority (e.g. Power of Lead Embedded Software Engineer or Certificate) MUST accompany the authorization when presented. Exception: parent if signing for patient under age 18. *Psychotherapy Notes defined as notes that document private, joint, group or family counseling sessions that are from the rest of a patient?s medical record. CARDIOLOGY VISIT Observed: 05/11/2017 Status: F Source: [place] REPORT 5:01 PM [facility] REPOSITORY [facility] [address] [place] [address]. [address] [place] [address] OFFICE VISIT Date of Service: 05/11/17 MR#: [id number] Acct: [id number] Name: CHRISTIANO SORENSEN Rep #: [id number] : 1940 Provider: ROSMERY Juarez Age/Sex: 76/M Location: [facility] Status: Signed HPI HPI Details: CHRISTIANO SORENSEN, is a 76 M who presents to the office today for a cardiovascular outpatient follow-up. He has a history of abdominal aortic aneurysm status post repair, palpitations, PACs/supraventricular tachyarrhythmia, sinus bradycardia, and hyperlipidemia. Pt. denies chest, arm, jaw, or neck discomfort. 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 Outside of tax season, he walks 4 times a week. Pt. denies symptoms of CHF, lightheadedness, dizziness, near syncope, or syncopal episodes. Pt. denies edema or claudication issues. Pt. denies orthopnea, PND, fever, chills, blood in urine, blood in stool, myalgia, or unexplainable fatigue. Pt. continues to have palpitations that he notices at night and seem to last 1-2 minutes. This is unchanged for five years. This occurs a couple times a week. Intake Vital Signs05/11/17 Height 6 ft 05/11/17 Weight: 195 lb 05/11/17 Body Mass Index (BMI) 26.4 05/11/17 Blood Pressure 120/70 05/11/17 Blood Pressure Location Lt brachial Intake Visit Reasons: 1 Y FU Cable Strander Required: No Accompanied by: None Is patient in pain?: Yes (low back discomfort) Pain scale (1-10): 5 Allergies No Known Allergies Allergy (Verified 05/11/17 13:04) Medications Rosuvastatin Calcium [Crestor] 20 mg PO DAILY 02/08/13 [History Confirmed 05/10/17] Aspirin [Aspirin, Baby] 81 mg PO DAILY@0800 02/21/16 [History Confirmed 05/10/17] famotidine 40 mg tablet 40 mg PO BID tab 05/11/17 [History Confirmed 05/11/17] tadalafil 20 mg tablet 20 mg PO QDAY tab 05/11/17 [History Confirmed 05/11/17] tamsulosin 0.4 mg capsule 0.4 mg PO QDAY 05/11/17 [History Confirmed 05/11/17] Ejection fraction %: 60 to 64 PFSH Medical History Hyperlipidemia (Chronic) AAA (abdominal aortic aneurysm) without rupture (Chronic) Palpitations (Chronic) Sinus bradycardia (Chronic) Chest pain (Acute) Fatigue (Acute) Shortness of breath (Acute) Surgical History History of cholecystectomy (Resolved) aorto bi-common iliac stent graft (Resolved 11/2014) Family History Father Colon cancer Mother Alzheimers disease Brother Multiple sclerosis Social History Smoking Status: Former smoker how long ago did patient quit smokin alcohol intake: current alcohol intake frequency: a few times a week Alcohol type: wine, hard liquor substance use type: does not use caffeine: Yes Type: coffee what type of physical activity do you participate in: none seatbelt use: always do you feel safe at home: Yes ROS Const Const: Negative for fatigue, weakness, body ache, fever(s) or chills ENT ENT: Negative for dizziness Cardio Chest Pain: No Palpitations: Yes Edema: None Muscle aches with walking: None Resp Respiratory: Negative for SOB with activity, SOB at rest, SOB orthopnea\SOB lying down or paroxysmal nocturnal dyspnea GI GI: Negative nausea, black,tarry stools, bright, red blood in stools or vomiting blood/hematemesis : Negative for hematuria or frequent nighttime urination/ nocturia Musc Musc: Negative for muscle aches/ myalgia Neuro Neuro: Negative for weakness, dizziness, lightheadedness, near syncope, syncope or orthostatic symptoms Endo Endo: Negative for fatigue Cardiology Exam Const Appearance: cooperative, healthy appearing, comfortable and no acute distress Orientation: alert, awake and oriented x3 Head Head: normal to inspection Mouth: oral mucosae normal Neck Neck: no JVD and normal visual inspection Carotids: normal carotid upstroke Chest Chest inspection: normal inspection of the chest and normal respiratory effort Auscultation: Bilateral: Clear to Auscultation Cardio Rate: regular rate Rhythm: regular rhythm Heart sounds: S1 normal and S2 normal; negative rub or gallop GI GI: normal to inspection Neuro General: alert, awake, oriented x3 and CN's II-XI intact bilaterally Skin Skin: no rashes or lesions noted Extremities Pulses: Normal: Right Posterior Tibial Pulse, Left Posterior Tibial Pulse, Right Radial Pulse, Left Radial Pulse Lower Extremity Edema: None: Bilateral Psych Psychological: normal affect Supplemental Info CTA of chest in December 2014 showed normal thoracic aorta and no demonstrated aortic dissection. There were also noted to be calcification of coronary arteries. CT scan of abdomen and pelvis from February 2016 showed postsurgical abdominal aortic aneurysm repair with intraluminal stent maximum diameter measured 3.8 cm and previously was noted to be 4.82 cm Nuclear stress test from February 2014 was negative for stress- induced myocardial ischemia and previous myocardial injury/infarction. Ejection fraction reported at 63%. Echocardiogram from January 2014 showed an estimated ejection fraction of 60%, mild concentric LVH, apical false tendon noted, trivial mitral valve insufficiency, trivial bicuspid valve insufficiency, mild focal aortic valve thickening, trivial pulmonic valve insufficiency, and calcified aortic root. Heart catheterization from March 2009 showed left main that was normal, LAD that was normal, RCA with mild nonobstructive stenosis in a dominant vessel, and LCx is normal and the nondominant vessel. Event monitor from February 2014 showed sinus rhythm with intermittent first-degree AV block with rates from 55-78 bpm. No ectopic complexes were noted. Patient symptom of chest pain correlated with sinus rhythm. Assessment AND Plan 1. Palpitations R00.2 Plan CONNIE Cedillo Patient's event monitor from February 2014 showed sinus rhythm with intermittent first-degree AV block with rates from 55-78 bpm. No ectopic complexes were noted. Patient symptom of chest pain correlated with sinus rhythm. Patient's palpitations are unchanged. We will continue to monitor this. We will continue to keep loop recorder option available if needed. 2. AAA (abdominal aortic aneurysm) without rupture I71.4 Plan - CONNIE Cadena Patient has had a follow-up CT scan with Dr. Rojas for this. He has not received results which he assumes means that everything looked good. A copy of the CT scan results will be requested for continuity of care. Patient's blood pressure and heart rate are well-controlled. We will continue to monitor this. 3. Sinus bradycardia R00.1 CONNIE Herndon Patient's heart rate is well controlled. Patient is not on any rate limiting medications. We will continue to monitor this. 4. Pure hypercholesterolemia E78.00; E78.0 Plan CONNIE Cedillo Patient will continue with current cholesterol-lowering medication. Plan Detail Additional Comments - CONNIE Cadena Discussed the above patient with Dr. Kenyon in Dr. Ortiz's absence, he agrees with the plan of care. Thank you for allowing us to participate in the patients plan of care, if you have any questions please do not hesitate to call. This note was generated using a voice recognition system and there may be incorrect words, spelling or punctuation that were not noted when reviewing the office note prior to saving. Follow Up 12 Months (PFM) Coding Level of Care Code Off vis,est,level 3 Diagnoses Palpitations R00.2 AAA (abdominal aortic aneurysm) without rupture I71.4 Sinus bradycardia R00.1 Pure hypercholesterolemia E78.00; E78.0 Hyperlipidemia type: pure hypercholesterolemia Coding Level of Care Code Off vis,est,level 3 Diagnoses Palpitations R00.2 AAA (abdominal aortic aneurysm) without rupture I71.4 Sinus bradycardia R00.1 Pure hypercholesterolemia E78.00; E78.0 Hyperlipidemia type: pure hypercholesterolemia 05/11/17 1552 <Electronically signed by Chemo Montejo Ann MERCHANDISE PRESENTATION MANAGER-C> Date Chemo Montejo Ann MERCHANDISE PRESENTATION MANAGER-C 05/11/17 1701<Electronically signed by Jaxson Kenyon MD> Cosigner Signature: Date (if applicable) Jaxson Kenyon MD CC: Jared Robertson MD CBC WITH DIFF FABIEN Collected: 03/12/2017 Status: F Source: [facility] 11:11 AM [facility] REPOSITORY TYPE CODE TESTS RESULT OUT OF REFERENCE UNITS RANGE LAB WBC 4.23-9.07 K/uL WBC Count 6.33 LAB RBC 4.63-6.08 M/uL RBC Count 4.27 Low LAB HGB 13.7-17.5 g/dL Hemoglobin 13.8 LAB HCT 40.1-51.0 % Hematocrit 39.5 Low LAB MCV 79.0-92.2 fL Mean Cell 92.5 High Volume LAB MCH 25.7-32.2 pg Mean Cell 32.3 High Hgb LAB MCHC 32.3-36.5 g/dL Mean Cell 34.9 Hgb Conc LAB RDW 11.6-14.4 % RBC 12.7 Distribution LAB PLT 163-337 K/uL Platelet 152 Low Count LAB MPV 9.4-12.4 fL Mean 10.0 Platelet Volume LAB NRBC 0.0-0.2 /100 WBC NUCLEATED 0.0 RBC LAB DTYPE Electronic DIFFERENTIAL TYPE Differential LAB IGRE % IMMATURE 0.3 GRANS % LAB SEGS % NEUTROPHIL 62.7 SEGMENTED LAB LYM % LYMPHOCYTE 22.3 % LAB MON % MONOCYTE % 10.7 LAB EOS % EOSINOPHIL 3.5 % LAB BASO % BASOPHIL % 0.5 LAB IGABS 0.00-0.03 K/uL IMMATURE 0.02 GRANS ABSOLUTE LAB SBANS 1.78-5.38 K/uL SEGS + 3.97 Bands,Absolute LAB ALYM 1.32-3.57 K/uL Abs Lymph 1.41 LAB AMONO 0.30-0.82 K/uL Abs Grimes 0.68 LAB AEOS 0.04-0.54 K/uL Abs Eos 0.22 LAB ABASO 0.01-0.08 K/uL Abs Baso 0.03 Performed By: #### CBCDFJ #### [facility] [address] [place] [address] #### YSVIS #### Reference lab information reported with result #### QMPROP #### [facility] [address] [place] [address] [place] [address] [address] [place], [place] [address] METABOLIC PANEL - CHRI Collected: 03/12/2017 Status: F Source: [facility] 11:11 [facility] REPOSITORY TYPE CODE TESTS RESULT OUT OF REFERENCE UNITS RANGE LAB NA 133-143 mmol/L Sodium 138 LAB K 3.5-5.0 mmol/L Potassium 4.3 LAB CL 98-108 mmol/L Chloride 104 LAB BUN 7-22 mg/dL BUN High 28 LAB CREA 0.70-1.30 mg/dL Creatinine 1.17 LAB GLUC 70-99 mg/dL Glucose 95 LAB CA 8.6-10.5 mg/dL Calcium 9.5 LAB ALP 32-126 U/L Alkaline Phosphatase 82 LAB AST 14-40 U/L AST 18 LAB TP 6.4-8.3 g/dL Total Protein 6.8 LAB ALB 3.5-5.0 g/dL Albumin 4.1 LAB BILT <1.5 mg/dL Bilirubin Total 1.1 LAB CO2 22-30 mmol/L Carbon Dioxide 30 LAB GAP 7-17 mmol/L Anion Gap 8 LAB ALT 10-52 U/L ALT 14 LAB GFR >60 mL/min/1.7 3sqM Est GFR,non >60 LAB GFRA >60 mL/min/1.7 3sqM Est GFR, >60 LAB OSMC 278-305 mOsm/kg Osmolality (Calc) 295 Performed By: #### CBCDFJ #### [facility] [address] [place] [address] #### YSVIS #### Reference lab information reported with result #### QMPROP #### [facility] [address] [place] [address] [facility] [address] [place] [address] LD - CHRI Collected: 03/12/2017 Status: F Source: [facility] 11:11 AM [facility] REPOSITORY TYPE CODE TESTS RESULT OUT OF RANGE REFERENCE UNITS LAB LD 100-190 U/L LD Total 153 Performed By: #### CBCDFJ #### [facility] [address] [place] [address] #### YSVIS #### Reference lab information reported with result #### QMPROP #### [facility] [address] [place], [place] [id number] [facility] [address] [place] [address] VISCOSITY, SERUM Collected: 03/12/2017 Status: F Source: [facility] 11:11 AM [facility] REPOSITORY TYPE CODE TESTS RESULT OUT OF RANGE REFERENCE UNITS LAB SVIS 1.5-1.9 rel to H2O 1.6 *SERUM*VISCO SITY Result Comment: (NOTE) Units = Relative to Water Test Performed by [facility] [place], [facility], [address] [place] [address] Agustín Mejia M.D., Ph.D., Director of Laboratories , [facility] [id number] Test sent to [facility] Lab Performed By: #### CBCDFJ #### [facility] [address] [place] [address] #### YSVIS #### Reference lab information reported with result #### QMPROP #### [facility] [address] [place] [address] [facility] [address] [place] [address] QUANT MONOCLONAL PROTEIN Collected: Status: F Source: [facility] IMMUNOFIXATION,SERUM 03/12/2017 11:11 AM [facility] REPOSITORY TYPE CODE TESTS RESULT OUT OF REFERENCE UNITS RANGE LAB IGG 600-1560 mg/dL IgG 710 LAB IGA 90-410 mg/dL IgA 158 LAB IGM 30-360 mg/dL IgM 769 High LAB TPE 6.4-8.3 g/dL Total Protein 6.8 LAB ALBNC 3.5-5.0 g/dL ALBUMIN 4.0 LAB ALPH1C 0.2-0.4 g/dL ALPHA 1 0.3 LAB ALPH2C 0.5-1.0 g/dL ALPHA 2 0.6 LAB BETAC 0.5-1.1 g/dL BETA 0.8 LAB GAMC 0.6-1.5 g/dL Gamma 1.1 LAB ISPE SPE There is INTERPRETATION a zone of restriction in the gamma region with a normal remaining polyclonal immunoglobulins. This pattern suggests monoclonal or oligoclonal proteins that may occur in chronic inflammatory diseases (e.g., of liver), or may be idiopathic, or may represent a monoclonal gammopathy. Suggest: Result Comment: a) Quant Monoclonal Protein Immunofixation,serum which also includes the quantitative immunoglobulins. b) Quant Monoclonal Protein Immunofixation,24 hr urine LAB RB4 REVIEWED BY: Ketan Medina M.D. LAB MPRO 0 mg/dL *SERUM *MONOCLONAL 401.2 High *PROTEIN LAB SIMFX SERUM IMMUNOFIXATION IgM kappa monoclonal protein is present. LAB INTBI INTERPRETATION BY: Ketan Medina M.D. Performed By: #### CBCDFJ #### [facility] [address] [place] [address] #### YSVIS #### Reference lab information reported with result #### QMPROP #### [facility] [address] [place] [address] [address] [place] [address] ALLERGIES ALLERGIES DATE TYPE / CODE NAME / CODE REACTION SEVERITY SOURCE 05/11/2017 Drug No Known Unknown [facility] Allergy/416 Allergies/W97598 [facility] 952048(SNOM 0388(RXNORM) Repository ED CT) /[id number] NO KNOWN [facility] 6(SNOMED ALLERGIES Health [facility]) Repository Drug NO KNOWN [facility] Class/16177 ALLERGIES [facility] 1003(SNOMED Repository CT) ENCOUNTERS ENCOUNTERS ADMIT/DISCHARGE ACCOUNT NUMBER ADMITTING ENCOUNTER LOCATION SOURCE CLASS 01/29/2018 [id number] [facility] ding:MRI Repository 12/17/2017 [id number] [facility] ding:LAB.FUT Repository URE 11/18/2017/11/20/19 [id number] Ambulatory [address] Repository 11/15/2017/11/16/19 [id number] Ambulatory [address] Repository 09/25/2017 [id number] Ambulatory [facility] ding:LAB Repository 09/25/2017 [id number] Ambulatory BMSBuilding: Maxine [facility] Repository 09/16/2017 [id number] Ambulatory Building:CT5 [facility] Repository 09/14/2017 [id number] Ambulatory BMSBuilding: Mobile BMS.[facility] Repository 09/09/2017 [id number] Ambulatory [facility] ding:LAB.FUT Repository URE 08/28/2017 [id number] Ambulatory [facility] ding:MTRAD Repository 07/30/2017/07/31/19 [id number] Ambulatory [address] Repository 07/30/2017/07/31/19 [id number] Ambulatory [address] MEDICAL Repository CENTERBuildi ng:AGWM 07/02/2017 [id number] Ambulatory [facility] MEDICAL Repository CENTERBuildi ng:AGWM 06/16/2017 [id number] Ambulatory [facility] Repository 06/08/2017/06/10/19 [id number] Ambulatory [address] Repository 06/02/2017/06/03/19 [id number] Emergency [address] ding:ED Repository 06/02/2017/06/03/19 [id number] Ambulatory [address] Repository 05/12/2017/05/14/19 [id number] Ambulatory [address] Repository 05/11/2017/05/12/19 [id number] Ambulatory BMSBuilding: Mobile 18 BMS.[facility] Repository 04/26/2017 [id number] Ambulatory BMSBuilding: Maxine BMS.[facility] Repository 04/01/2017 [id number] Ambulatory [facility] ding:LAB.FUT Repository URE 03/18/2017 [id number] Ambulatory Building:CT5 [facility] Repository 03/12/2017 [id number] Ambulatory Building:CT5 [facility] Repository PAYERS PAYERS ENCOUNTER GUARANTOR PAYER SUBSCRIBER SOURCE 01/29/2018 CHRISTIANO ZHOU Primary CHRISTIANO WAHLB: Maxine ALAN Insurance:MEDICARE [id number] [facility] [place] PART A BPolicy Number: Hospital [id number]: (238) [id number] Repository [phone] () Date:2018-01-20 01/29/2018 Secondary CHRISTIANO SORENSENDOB: Maxine Insurance:AARPPolicy [id number] Community Number: [facility] [id number] Repository Date:3435-65-81MQ [address], [place] [address]YN: 01/29/2018 Tertiary NOT GIVENUNK [place] Insurance:SELF PAY Community INS[facility]ANCEPolicy Hospital Number: Effective Repository Date:2018-01-20 12/17/2017 CHRISTIANO ZHOU Primary CHRISTIANO SORENSENDOB: Mobile ALAN Insurance:MEDICARE [id number] [facility] [place] PART A BPolicy Number: Hospital [id number]: 330 [id number] Repository [phone] () Date:2017-12-16 12/17/2017 Secondary CHRISTIANO SORENSENDOB: Max[place] Insurance:AARPPolicy [id number] Community Number: [facility] [id number] Repository Date:0889-86-74ZF [address], [place] [address]DD: 12/17/2017 Tertiary NOT GIVENUNK [place] Insurance:SELF PAY Community [facility] Hospital Number: Effective Repository Date:2017-12-16 09/25/2017 CHRISTIANO CARRENO1 Primary CHRISTIANO SORENSENDOB: Mobile ALAN Insurance:MEDICARE [id number] [facility] [place] PART A BPolicy Number: Hospital [id number]: 330 [id number] Repository [phone] () Date:2017-09-25 09/25/2017 Secondary CHRISTIANO SORENSENDOB: Max[place] Insurance:AARPPolicy [id number] Community Number: [facility] [id number] Repository Date:8949-34-85NT [address], [place] [address]VS: 09/25/2017 Tertiary NOT GIVENUNK [place] Insurance:SELF PAY [facility]: Effective Repository Date:2017-09-25 09/25/2017 CHRISTIANO SORENSEN401 Primary CHRISTIANO Kinjal SORENSENDOB: [place] ALAN Insurance:MEDICARE [id number] [place] PART A BPolicy Number: [facility] 60876Wxp: 330 [id number] Repository [phone] () Date:2017-09-25 09/25/2017 Secondary CHRISTIANO W EDUDOB: [place] Insurance:AARPPolicy [id number] Community Number: [facility] [id number] Repository Date:2451-63-23FO [address], [place] [address]PL: 09/25/2017 Tertiary NOT GIVENUNK [place] Insurance:SELF PAY [facility] Number: Effective Repository Date:2017-09-25 09/16/2017 CHRISTIANO SORENSENDOB: Primary CHRISTIANO SORENSENDOB: [place] [id number] Insurance:MEDICARE A [id number] [facility] AND BPolicy Number: [place], [place] [id number] [facility] [address]Boh: (330) Date:4267-87-31Cfki 36[address]Spf: (330) Repository [phone] () Name:CARE [phone] () 09/16/2017 Secondary CHRISTIANO SORENSENDOB: [place] Insurance:AARPPolicy [id number] Effie Number: JACI Crum [facility] [id number] [facility] Date:Plan Name:[facility] 99383Pzl: (330) Repository CARE [phone] () 09/14/2017 CHRISTIANO Kinjal SORENSENPHJTE314 Primary CHRISTIANO W EDUDOB: [place] ALAN Insurance:MEDICARE [id number] [facility] PART A BPolicy Number: Hospital [id number]: 330 [id number] Repository [phone] () Date:2017-09-06 09/14/2017 Secondary CHRISTIANO SORENSENDOB: [place] Insurance:AARPPolicy [id number] Community Number: Hospital [id number] Repository Date:6035-34-74HA [facility] [address], [place] [address]TH: 09/14/2017 Tertiary NOT GIVENUNK [place] Insurance:SELF PAY [facility]: Effective Repository Date:2017-09-06 09/09/2017 CHRISTIANO CARRENO1 Primary CHRISTIANO WAHLB: [place] ALAN Insurance:MEDICARE [id number] [facility] PART A BPolicy Number: Hospital [address]Eaw: 330 [id number] Repository [phone] () Date:2017-09-08 09/09/2017 Secondary CHRISTIANO WAHLB: [place] Insurance:AARPPolicy [id number] Community Number: Hospital [id number] Repository Date:2805-73-58SP [address], [place] [address]NS: 09/09/2017 Tertiary NOT GIVENUNK [place] Insurance:SELF PAY Community [facility] Number: Effective Repository Date:2017-09-08 08/28/2017 CHRISTIANO CARRENO1 Primary CHRISTIANO WAHLB: [place] ALAN Insurance:MEDICARE [id number] [place] PART A BPolicy Number: Hospital [id number]: 330 [id number] Repository [phone] () Date:2017-08-28 08/28/2017 Secondary CHRISTIANO W EDUDOB: [place] Insurance:AARPPolicy [id number] Community Number: Hospital [id number] Repository Date:5841-07-48FE [facility] [place], [place] [address]BK: 08/28/2017 Tertiary NOT GIVENUNK [place] Insurance:SELF PAY Community [facility] Number: Effective Repository Date:2017-08-28 07/30/2017 CHRISTIANO W Primary CHRISTIANO W EDUDOB: [facility] WELLSDOB: Insurance:MEDICARE A [id number] Health System AND BPolicy Number: Repository [id number] [place] Date: [address]Cwi: () 07/30/2017 Secondary CHRISTIANO W WELLSDOB: [facility] Insurance:[facility] [id number] Health System SUPPLEMENTPolicy Repository Number: [id number] Date: 07/02/2017 CHRISTIANO W Primary CHRISTIANO W WELLSDOB: [facility] WELLSDOB: Insurance:MEDICARE A [id number] [facility] AND BPolicy Number: Repository [place] [id number] [place], [place] Date: [address]Oeg: () 07/02/2017 Secondary CHRISTIANO W EDUDOB: [facility] Insurance:[employer] [id number] Health System SUPPLEMENTPolicy Repository Number: [id number] Date: 06/02/2017 CHRISTIANO CARRENO1 Primary CHRISTIANO SORENSENDOB: [place] ALAN Insurance:MEDICARE [id number] [place] PART A BPolicy Number: Hospital [id number]: [id number] Repository [phone] Date:2017-06-02 0-2 (HP) 06/02/2017 Secondary CHRISTIANO W EDUDOB: [place] Insurance:AARPPolicy [id number] [facility] Number: Hospital [id number] Repository Date:2029-92-90TM [address]XKGKF, [place] [address]NV: 06/02/2017 Tertiary NOT GIVENUNK [place] Insurance:SELF PAY Community [facility] Hospital Number: Effective Repository Date:2017-06-02 05/11/2017 CHRISTIANO W [id number] Primary CHRISTIANO W EDUDOB: [place] ALAN Insurance:MEDICARE [id number] [place] PART A BPolicy Number: Hospital [address]Gkq: [id number] Repository [phone] Date:2017-03-20 0-2 (HP) 05/11/2017 Secondary CHRISTIANO Kinjal SORENSENDOB: [place] Insurance:AARPPolicy [id number] Community Number: Hospital [id number] Repository Date:7264-20-46LY [address]QJAZVF, [place] [address]VK: 05/11/2017 Tertiary NOT GIVENUNK [place] Insurance:SELF PAY Community [facility] Number: Effective Repository Date:2017-05-11 04/26/2017 Christiano Zhou Primary Christiano SorensenDOB: Maxine Alan Insurance:MEDICARE [id number] [place] PART A BPolicy Number: Hospital [address]Aso: 330 [id number] Repository [phone] () Date:2017-01-27 04/26/2017 Secondary Christiano SorensenDOB: [place] Insurance:AARPPolicy [id number] Community Number: Hospital [id number] Repository Date:2226-79-12OZ [address]UB, [place] [address]AE: 04/26/2017 Tertiary NOT GIVENUNK [place] Insurance:SELF PAY Community [facility] Hospital Number: Effective Repository Date:2017-01-27 04/01/2017 Christiano Sorensen401 Primary Christiano SorensenDOB: [place] Insurance:MEDICARE [id number] [place] PART A BPolicy Number: Hospital [address]Fgx: 330 [id number] Repository [id number] (HP) Date:2017-04-01 04/01/2017 Secondary Christiano EduDOB: Maxine Insurance:AARPPolicy [id number] Community Number: Hospital [id number] Repository Date:[id number] [facility] [place], [place] [address]SM: 04/01/2017 Tertiary NOT GIVENUNK Maxine Insurance:SELF PAY Community INSURANCEPolicy Hospital Number: Effective Repository Date:2017-04-01 03/18/2017 CHRISTIANO WELLSDOB: Primary CHRISTIANO WELLSDOB: [place] Insurance:MEDICARE A [id number] Effie ALAN AND BPolicy Number: [place], [place] [id number] [facility], [place] Center [address]Kxo: (330) Date:[id number] [id number]: (330) Repository [phone] () Name:CARE [phone] () 03/18/2017 Secondary CHRISTIANO WELLSDOB: [facility] Insurance:[facility] [id number] Effie Number: [facility] [id number] [place], [place] Center Date:Plan Name:MANAGED [id number]: (330) Repository CARE [phone] () 03/12/2017 CHRISTIANO WELLSDOB: Primary CHRISTIANO WELLSDOB: [facility] Insurance:MEDICARE A [id number] Effie ALAN AND BPolicy Number: [place], [place] [id number] [address]Wdz: (330) Date:[id number] [id number]: (330) Repository [phone] () Name:CARE [phone] () 03/12/2017 Secondary CHRISTIANO EDUDOB: [facility] Insurance:[facility] [id number] Effie Number: [facility] [id number] [place], [place] Center Date:Plan Name:MANAGED [id number]: (330) Repository CARE [id number] ()
== END ==
PROVIDERS: Family Provider Family Medicine; PCP Family Medicine; Referring Provider Nurse Practitioner Family; Visit Provider Nurse Practitioner Family
DX: M25.512 Pain in left shoulder (principal)
CPT/HCPCS: 73221

== ENCOUNTER → 2020-09-02 06:09 | Outpatient (CLI) | payer MEDICARE, OTHER, SELFPAY ==
[2020-08-16 14:31] VITALS: BMI 24.3
--- NOTE | 2020-09-02 09:08 | STRESSREP_ITS ---
Stress Test Report Date: 09-02-2020 Procedure: Exercise tolerance test/imaging study Indications: Palpitations; bradycardia; status post AAA repair Consent: Per the patient Procedure: The patient exercised on a Shane protocol for 8 minutes and 15 seconds completing Stage II and 2 minutes and 15 seconds of Stage III achieving a peak heart rate of 142 bpm (100% predicted maximal heart rate) with a peak blood pressure 160/70 mmHg and a peak MET capacity of 9 METs. The baseline ECG demonstrated sinus bradycardia. The peak exercise ECG demonstrated beat to beat nonspecific ST segment variability with approximately 0.5 to 1.[address] diffuse [address] segment depression with subsequent resolution to baseline in recovery. There was an isolated ventricular couplet during exercise. The functional capacity was considered good. There was no complaint of chest discomfort during exercise or recovery. The examination was discontinued secondary to dyspnea; fatigue. Impression: 1. Technically adequate (percent predicted maximal heart rate greater than 85%) exercise tolerance test 2. Peak exercise ECG with beat to beat nonspecific ST segment variability with approximately 0.5 to 1.[address] segment depression with subsequent resolution to baseline in recovery 3. There was an isolated ventricular couplet during exercise 4. Nuclear images pending Myocardial perfusion imaging study: Technique: The patient was injected with 11.3 mCi of technetium 99m Cardiolite and subsequently rest SPECT Cardiolite nuclear imaging was obtained in the horizontal long, vertical long, and short axis views. The patient exercised on a Shane protocol for 8 minutes and 15 seconds completing Stage II and 2 minutes and 15 seconds of Stage III achieving a peak heart rate of 142 bpm (100% predicted maximal heart rate) with a peak blood pressure 160/70 mmHg and a peak MET capacity of 9 METs. The patient was injected with 36.0 mCi of technetium 99m Cardiolite and subsequently stress SPECT Cardiolite nuclear imaging was obtained in the horizontal long, vertical long, and short axis views. A gated Cardiolite study at peak stress was obtained. Interpretation: Rest and stress SPECT Cardiolite nuclear imaging status post realignment, normalization, and attenuation correction, demonstrates the appearance of relative uniform tracer uptake and myocardial perfusion appearing within normal limits. There are no myocardial perfusion deficits noted on the resting or stress polar map images. There is end systolic thickening and brightening. The gated Cardiolite study demonstrates myocardial thickening and inward wall motion. The reported LVEF is 75%. Impression: 1. Rest and stress SPECT Cardiolite nuclear imaging demonstrate relative uniform tracer uptake and myocardial perfusion appearing within normal limits. 2. The gated Cardiolite study reports an LVEF of 75%. This note was generated with Web International Englishation software. It may contain incorrect words, spelling, and punctuation that were not noted in checking the note before signing.
== END ==
PROVIDERS: PCP Family Medicine; Referring Provider Internal Medicine Cardiovascular Disease; Visit Provider Internal Medicine Cardiovascular Disease
DX: R14.2 Eructation (principal); R00.1 Bradycardia, unspecified; R00.2 Palpitations; E78.5 Hyperlipidemia, unspecified; R07.9 Chest pain, unspecified; R06.02 Shortness of breath
CPT/HCPCS: 78452; 93017; A9500; A4216

== ENCOUNTER 2021-08-04 21:07 | Observation (INO) | payer MEDICARE, OTHER, SELFPAY ==
[2021-08-04 21:08] VITALS: BP 160/77; PULSE 56; RESP 16; TEMP 36.4; O2SAT 97; BMI 24.7
--- NOTE | 2021-08-04 21:20 | CT_ITS ---
STUDY: CT LUMBAR SPINE WITHOUT CONTRAST REASON FOR EXAM: Male, 80 years old. Pain RADIATION DOSAGE (If Supplied By Facility): CTDIvol = ( 14.02 ) mGy, DLP = ( 428.38 ) mGycm TECHNIQUE: The patient was scanned in a multi detector CT scanner. High resolution transaxial imaging was performed. Nonenhanced study performed. Sagittal and coronal images were reconstructed. Individualized dose optimization techniques were used for this CT. COMPARISON: Abdominal pelvic CT of 02/21/2016. FINDINGS: Normal lumbar lordosis. There is no substantial scoliosis. No acute fracture or spondylolisthesis. T11/12: Moderately severe degenerative narrowing. Large marginal osteophytes. T12/L1: Large bridging osteophytes. The disc space is partially fused. L1-2: Large bridging osteophytes. Disc space is preserved. L2-3: Disc space is preserved. Large marginal osteophytes. Interval development of a Schmorl''s node within the superior aspect of the L3 superior endplate. Mild-moderate broad-based annular bulging at this level. L3-4: Mild disc space narrowing with large marginal osteophytes. Interval development of Schmorl''s nodes within the endplates. Mild-moderate broad-based annular bulging. Asymmetric narrowing of the right neural foramen due to posterior lateral osteophytes. L4-5: Mild-moderate disc space narrowing with large marginal osteophytes. Mild broad-based annular bulging. Annular bulging and osteophytes mildly narrow the inferior neural foramina at this level. L5-S1: Moderately severe disc space narrowing with marginal osteophytes and vacuum disc phenomenon. Broad-based annular bulging and surrounding posterior osteophytes. Moderate narrowing of the inferior neural foramina bilaterally due to annular bulging and posterior-lateral osteophytes. Lumbar facet arthritis is present. No pars defects. SI joints are fused anteriorly. Aortobiiliac intraluminal stent again noted. No para-aortic adenopathy or stranding. Psoas muscles are symmetric. No paraspinal edema. Visualized kidneys show no renal calculi. Adrenal glands are unremarkable. 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 No compression fracture or spondylolisthesis. Aortobiiliac intraluminal stent again noted. Electronically Signed: Graeme Lara MD at 22:26 EDT ,
--- NOTE | 2021-08-04 21:30 | ED.VIS.BACK ---
HPI History of Present Illness Chief Complaint: Back Narrative Narrative: 80-year-old male presents via EMS with intractable back pain. He states he was lifting boxes Wednesday and Wednesday, 3 to 4 days ago. He took it easy on Wednesday, yesterday and went to work this morning. He complains of right-sided back pain near his hip that radiates towards the midline. It is worse with movement. He states at home it took him half an hour to take 10 steps because his pain was worse with walking and movement. He denies loss of bowel or bladder. He did put a Salonpas on his back, but is having more pain that is worse with walking. It is usually dull and achy but can become sharp and stabbing with movement of his right leg. He states he lowered himself to the kitchen floor because he was unable to get up because of the pain. He did not fall or hit his head. He had taken ibuprofen and Tylenol at home without relief of his symptoms. He presents because of the increasing low back pain. No loss of bowel or bladder, no radiation down his leg. No saddle anesthesia. [facility] Medical History AAA (abdominal aortic aneurysm) without rupture Basal cell carcinoma (BCC) in situ of skin Chest pain Fatigue Hyperlipidemia Lymphoma Palpitations Pure hypercholesterolemia Shortness of breath Sinus bradycardia Home Medications aspirin 81 mg chewable tablet 81 mg PO DAILY@0800 02/21/16 [History Last Taken Unknown] esomeprazole magnesium 40 mg capsule,delayed release 40 mg PO DAILY 06/02/17 [History Last Taken Unknown] lactulose 10 gram/15 mL oral solution 30 ml PO DAILY 07/25/18 [History Last Taken Unknown] albuterol sulfate 90 mcg/actuation aerosol inhaler (Ventolin HFA) 2 puff inhalation Q4H PRN shortness of breath 09/30/18 [History Last Taken Unknown] rosuvastatin 20 mg tablet 20 mg PO DAILY #90 tabs 06/18/20 [Rx Last Taken Unknown] Allergy/AdvReac Type Severity Reaction Status Date / Time No Known Allergies Allergy Verified 08/16/20 14:34 Family History Father Colon cancer Mother Alzheimers disease Brother Multiple sclerosis Surgical History aorto bi-common iliac stent graft (~11/2014) History of cholecystectomy Social History Smoking Status: Former smoker how long ago did patient quit smokin alcohol intake: current alcohol intake frequency: a few times a week Alcohol type: wine and hard liquor substance use type: does not use caffeine: Yes Type: coffee what type of physical activity do you participate in: none seatbelt use: always do you feel safe at home: Yes ROS ROS ED ROS Narrative Constitutional: No fever, no chills. HEENT: No sore throat. No neck pain. No loss of vision. No rhinorrhea. Cardiovascular: No chest pain. No palpitations. No pedal edema. Respiratory: No cough, no shortness of breath. Abdominal: No abdominal pain. No nausea. No vomiting. Genitourinary: No dysuria. No hematuria. Musculoskeletal: No myalgias. No arthralgias. Right paraspinal low back pain. Nonradiating, nonradicular. Neurologic: No headaches. No dizziness. No lightheadedness. Skin: No rash. No change in color. Psychiatric: No depression. No anxiety. EXAM Physical Exam Narrative Exam Narrative: Afebrile. Vital signs noted. HEENT: Normocephalic. Atraumatic. PERRL, EOMI. Neck soft and supple. No point tenderness or step off. Cardiovascular: Regular rate and rhythm. No murmurs, rubs, or gallops appreciated. Respiratory: No tachypnea. Lungs clear to auscultation bilaterally. Gastrointestinal: Abdomen soft, nontender, with normoactive bowel sounds. No rebound or guarding. Neurological: Awake. Alert. Nonfocal, nonlateralizing. Neurovascular intact bilateral lower extremities. EHL intact bilaterally. DTRs equal and symmetric. Skin: No rash. Normal color. No pallor. Musculoskeletal: No pedal edema. Range of motion of right leg limited secondary to pain. Palpable dorsalis pedis pulses bilaterally. Positive muscle spasms right paraspinal musculature. No vertebral point tenderness or bony step-off. No midline tenderness. Const Vital Signs: 08/04/21 21:08 Temperature 97.6 F L Temperature Source Oral Pulse Rate 56 L Respiratory Rate 16 Blood Pressure 160/77 H Blood Pressure Mean 104 Pulse Ox 97 Oxygen Delivery Method Room Air MDM MDM MDM Narrative Medical decision making narrative: I do feel that the patient is having more right paraspinal muscle strain in his lumbosacral area along with spasming. He is already taken an NSAID and Tylenol. He was administered morphine 4 mg intravenously and Valium 2.5 mg orally. I will obtain imaging of his low back. He does have past medical history of arthritis in his back so I will obtain a CT given his additional history of what he calls lymphoma which they are monitoring. CT of the lumbar spine shows no evidence of pathological fracture. There is multilevel degenerative disc disease with facet arthritis. After Valium and morphine, patient states that he was able to put his leg down and straighten it out, but when he went to move, he began having sharp pain. His significant other states that she is unable to take care of him at home. I will discuss the patient with the hospitalist for observation for intractable back pain and inability to ambulate. Patient discussed with Dr. Becerra. Disposition is assigned to observation. He is in stable condition. 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 No compression fracture or spondylolisthesis. Aortobiiliac intraluminal stent again noted. Electronically Signed: Graeme Lara MD at 22:26 EDT , Discharge Plan Dx/Rx/DC Orders Clinical Impression: Lumbosacral strain, Intractable low back pain, Unable to ambulate Disposition Disposition: Acute Care Hospital [facility]
[2021-08-04] MEDS: diazePAM 5 MG Tablet 2.5 MG PO (21:33)
[2021-08-04] MEDS: Morphine 4 MG/ML Syringe IV (21:34)
--- NOTE | 2021-08-04 23:10 | PCM.HP.STD ---
HPI - General General Date of Admission: 08/04/21 Date of Service: 08/04/21 Chief Complaint: Intractable back pain HPI Narrative ADARSH SORENSEN, is a 80 M who presents to the emergency room with chief complaint of severe back pain lower. The pain was 10/10 at home and he was unable to get up and walk on his own. Onset of symptoms began approximately a week ago when he was lifting several boxes and has progressively gotten worse to the point today it became most severe. He was transported by squad to the hospital CT of the lumbar spine was performed and showed moderate degenerative disc disease appropriate for patient's age. Patient was given morphine and responded accordingly. I was asked to admit the patient overnight for observation for intractable back pain. The patient denies any chest pain, shortness of breath, fever or chills and/or coughing. COUNTS INCLUDE 234 BEDS AT THE [facility] Medical History AAA (abdominal aortic aneurysm) without rupture Basal cell carcinoma (BCC) in situ of skin Chest pain Fatigue Hyperlipidemia Lymphoma Palpitations Pure hypercholesterolemia Shortness of breath Sinus bradycardia Home Medications aspirin 81 mg chewable tablet 81 mg PO DAILY@0800 02/21/16 [History Last Taken Unknown] esomeprazole magnesium 40 mg capsule,delayed release 40 mg PO DAILY 06/02/17 [History Last Taken Unknown] lactulose 10 gram/15 mL oral solution 30 ml PO DAILY 07/25/18 [History Last Taken Unknown] albuterol sulfate 90 mcg/actuation aerosol inhaler (Ventolin HFA) 2 puff inhalation Q4H PRN shortness of breath 09/30/18 [History Last Taken Unknown] rosuvastatin 20 mg tablet 20 mg PO DAILY #90 tabs 06/18/20 [Rx Last Taken Unknown] Allergy/AdvReac Type Severity Reaction Status Date / Time No Known Allergies Allergy Verified 08/16/20 14:34 Family History Father Colon cancer Mother Alzheimers disease Brother Multiple sclerosis Surgical History aorto bi-common iliac stent graft (~11/2014) History of cholecystectomy Social History Smoking Status: Former smoker how long ago did patient quit smokin alcohol intake: current alcohol intake frequency: a few times a week Alcohol type: wine and hard liquor substance use type: does not use caffeine: Yes Type: coffee what type of physical activity do you participate in: none seatbelt use: always do you feel safe at home: Yes ROS Constitutional Constitutional: Denies chills or fever(s) Eyes Eyes: Denies blurry vision ENT HEENT: Denies headache(s) Cardiovascular Cardiovascular: Denies chest pain Respiratory/Chest Respiratory/Chest: Denies cough Gastrointestinal Gastrointestinal: Denies abdominal pain Genitourinary Genitourinary: Denies dysuria Musculoskeletal Musculoskeletal: Reports back pain Integumentary Integumentary: Denies dry skin Neurologic Neurologic: Reports abnormal gait Psychiatric Psychiatric: Denies anxiety Vital Signs Vital Signs Vital Signs: 08/04/21 21:08 Temperature 97.6 F L Temperature Source Oral Pulse Rate 56 L Respiratory Rate 16 Blood Pressure 160/77 H Blood Pressure Mean 104 Pulse Ox 97 Oxygen Delivery Method Room Air Weight Weight: 188 lb 1.6 oz Body Mass Index (BMI) 24.7 Physical Exam Const oriented x3 General Appearance: cooperative HEENT normocephalic and head/scalp atraumatic Eyes PERRL Neck no lymphadenopathy Resp normal air movement and clear to auscultation bilaterally Cardio regular rate, S1 normal heart sound and S2 normal heart sound GI normal to inspection, nondistended, normoactive bowel sounds Extremity Extremity Narrative: lower lumbar tender negative straight leg raise bilat Skin General Skin Exam: no breakdown Neuro CN's II-XII intact bilaterally Psych thought process normal Appearance: appropriate Results Lab / Micro Data Attestation: I reviewed the patient's lab results. 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 No compression fracture or spondylolisthesis. Aortobiiliac intraluminal stent again noted. Electronically Signed: Graeme Lara MD at 22:26 EDT , Assessment & Plan Assessment/Plan (1) Intractable low back pain: (2) Unable to ambulate: PLAN: Plan 1 intractable low back pain?admit patient to general medical floor for observation?morphine 4 mg IV every 2 hours as needed pain, add cyclobenzaprine 10 mg p.o. 3 times daily as needed and prednisone 40 mg p.o. daily for total 5-day therapy 2. DVT prophylaxis?low molecular weight heparin Charges/Coding Visit Charges OBSV E&M: 13047 Initial observation care L2
[2021-08-04 23:55] VITALS: BP 150/64; PULSE 58; RESP 17; TEMP 36.9; O2SAT 99
[2021-08-05 00:02] VITALS: BMI 24.5
[2021-08-05] MEDS: cycloBENZAPRine HCl 10 MG Tablet PO ×2 (00:43→09:44)
[2021-08-05 00:50] VITALS: BP 142/73; PULSE 60; RESP 16; TEMP 36.6; O2SAT 98
[2021-08-05] MEDS: oxyCODONE 5 MG Tablet 10 MG PO ×2 (05:14→13:22)
[2021-08-05] MEDS: Ibuprofen 400 MG Tablet PO ×2 (05:14→13:22)
[2021-08-05 05:20] VITALS: BP 126/90; PULSE 50; RESP 18; TEMP 36.5; O2SAT 99
[2021-08-05] MEDS: Pantoprazole Sodium 40 MG Tablet PO (09:40)
[2021-08-05] MEDS: predniSONE 20 MG Tablet 40 MG PO (09:41)
[2021-08-05] MEDS: Aspirin 81 MG TAB.CHEW PO (09:41)
[2021-08-05 10:04] VITALS: BP 122/64; PULSE 50; RESP 18; TEMP 36.7; O2SAT 99
--- NOTE | 2021-08-05 11:00 | DCINST_ITS ---
Discharge Instructions Diet Discharge Diet: No restrictions Activity Discharge Activity: - (no lifting above 10 lbs for one week) Follow Up Care Test Results: Test results from this visit will be discussed in further detail at your follow- up appointment, if applicable. Discharge Plan Admission Admit Date/Time: 08/04/21 23:20 Primary Reason for Your Visit: sacro-iliac pain/inflammation Attending Provider: Kevin Chang Primary Care Provider: Jared Cavazos Consulting Providers: Kaden Becerra Instructions Additional Instructions / Restrictions: Ice or heat to right lower back area as needed for comfort, do not take Ibuprofen or Alleve while on Prednisone Discharge Orders/Prescriptions Prescriptions: New prednisone 20 mg Tablet 40 mg PO DAILY Qty: 13 0RF Rx Instructions: 40 mg daily for 3 days, then 30 mg daily for 3 days, then 20 mg daily for three days, then stop hydrocodone-acetaminophen 5-325 mg tablet 1 tab PO Q6H PRN (Reason: pain) 7 Days Qty: 30 0RF Rx Instructions: 1-2 tabs every 6 hours as needed for pain Continued aspirin 81 MG tablet,chewable 81 mg PO DAILY@0800 esomeprazole magnesium 40 MG capsule,delayed release(DR/EC) 40 mg PO DAILY Label Comments: albuterol sulfate [Ventolin HFA] 90 mcg/actuation HFA aerosol inhaler 2 puff INHALATION Q4H PRN (Reason: shortness of breath) rosuvastatin 20 mg tablet 20 mg PO DAILY Qty: 90 3RF Referrals / Follow Up: Jared Cavazos MD [Primary Care Provider] - Within 2 Weeks Disposition Disposition (needs filled in before D/C Order can be placed): Home, Self Care
--- NOTE | 2021-08-05 11:17 | DS.PCM_ITS ---
Providers Date of Admission: 08/04/21 Date of Discharge: 08/05/21 Primary Care Physician: Dr. Jared Cavazos MD Reason For Visit: INTRACTABLE LOW BACK PAIN Diagnosis Discharge Diagnosis (1) Intractable low back pain: Status: Acute Code(s): M54.59 - Other low back pain (2) Unable to ambulate: Status: Acute Code(s): R26.2 - Difficulty in walking, not elsewhere classified Plan: 1. Intractable low back pain due to lumbosacral strain #2 hyperlipidemia #3 GERD Medications at Discharge Home Medications aspirin 81 mg chewable tablet 81 mg PO DAILY@0800 HEART 02/21/16 esomeprazole magnesium 40 mg capsule,delayed release 40 mg PO DAILY GERD 06/02/17 albuterol sulfate 90 mcg/actuation aerosol inhaler (Ventolin HFA) 2 puff inhalation Q4H PRN shortness of breath 09/30/18 rosuvastatin 20 mg tablet 20 mg PO DAILY #90 tabs 06/18/20 hydrocodone-acetaminophen 5-325mg 5mg-325mg 1 tab PO Q6H PRN pain 7 days #30 tabs 08/05/21 prednisone 20 mg tablet 40 mg PO DAILY #13 tabs 08/05/21 Hospital Course Operations None Procedures None Summary of Care Provided Minutes Spent on Discharge: 30 Hospital Course: This 80-year-old white male was seen in the emergency room at [facility] with chief complaint of intractable low back pain. Patient denies any lower extremity weakness. Patient has been lifting boxes a few days prior. Patient was given IV morphine and Valium orally in the emergency room, this had minimal effect on his low back pain, patient had a CT of the lumbar spine which showed no evidence of pathological fracture but there was multilevel degenerative disc disease and arthritis present and the patient was not able to ambulate so [facility] Patient was seen by physical therapy, patient's ambulatory status improved during his hospitalization. On 08/05/2021, patient was seen and examined: On examination he appeared in good health and spirits. Vital signs as documented. Skin warm and dry and without overt rashes. Neck without JVD, neck was supple, trachea midline, thyroid was normal. Lungs clear bilaterally, normal air movement was noted. Heart exam notable for regular rhythm, normal sounds and absence of murmurs, rubs or gallops. Abdomen unremarkable and without evidence of organomegaly, masses, or abdominal aortic enlargement. Bowel sounds are present, abdomen is not distended. Extremities nonedematous, no cyanosis was noted, no clubbing was noted. Neuro: Cranial nerves II through XII are grossly intact, no focal motor deficits were noted, sensation to light touch and pinprick intact, motor exam 5/5 throughout. Psych: Patient is alert and oriented x3, he does not appear anxious or depressed, he does not appear agitated. Patient appears stable for discharge home on 08/05/2021. 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 No compression fracture or spondylolisthesis. Aortobiiliac intraluminal stent again noted. Electronically Signed: Graeme Lara MD at 22:26 EDT , D/C Instructions Discharge Diet: No restrictions Meaningful Use Info Meaningful Use Diagnoses (Choose all that apply): None applicable Discharge Plan Admission Admit Date/Time: 08/04/21 23:20 Primary Reason for Your Visit: sacro-iliac pain/inflammation Attending Provider: Kevin Chang Primary Care Provider: Jared Cavazos Consulting Providers: Kaden Becerra Instructions Additional Instructions / Restrictions: Ice or heat to right lower back area as needed for comfort, do not take Ibuprofen or Alleve while on Prednisone Discharge Orders/Prescriptions Prescriptions: New prednisone 20 mg Tablet 40 mg PO DAILY Qty: 13 0RF Rx Instructions: 40 mg daily for 3 days, then 30 mg daily for 3 days, then 20 mg daily for three days, then stop hydrocodone-acetaminophen 5-325 mg tablet 1 tab PO Q6H PRN (Reason: pain) 7 Days Qty: 30 0RF Rx Instructions: 1-2 tabs every 6 hours as needed for pain Continued aspirin 81 MG tablet,chewable 81 mg PO DAILY@0800 esomeprazole magnesium 40 MG capsule,delayed release(DR/EC) 40 mg PO DAILY Label Comments: albuterol sulfate [Ventolin HFA] 90 mcg/actuation HFA aerosol inhaler 2 puff INHALATION Q4H PRN (Reason: shortness of breath) rosuvastatin 20 mg tablet 20 mg PO DAILY Qty: 90 3RF Referrals / Follow Up: Jared Cavazos MD [Primary Care Provider] - Within 2 Weeks Disposition Disposition (needs filled in before D/C Order can be placed): Home, Self Care Charges/Coding Visit Charges OBSV E&M: 34118 Observation care discharge
--- NOTE | 2021-08-05 11:58 | CASEMGMT ---
CASH NAVA Assessment: Face to Face with pt for initial transition planning/care coordination assessment. CASH NAVA introduced self and role at [facility], pt voices understanding and consents to assessment. Pt is A/O x4 and answers all questions appropriately at this time. Pt sitting up in chair in no distress. Care providers, pharmacy, and demographics verified/updated. Admitting Dx: intractable low back pain PCP:Macy Specialists:[place], cardio; GI in [place] Preferred Pharmacy: [facility] Retail Insurance: [facility], AARP Prescription Benefit: yes LW/HPOA: Pt denies having a LW/DPOA and denies need for info regarding AD. LNOK: Lorna Serrato, sig other Living Arrangements: Pt lives in a two story house with 1 step to enter without a rail. Pt reports he is I in ADL's and denies concerns at home. He lives on the main level of the home. Transportation: Pt drives self and denies concerns with transportation. DME/HHC/SNF: Pt has no DME in the home, states he uses a makeshift walking stick if needed. Pt has grab bars in the bathroom and a walk in shower. Pt denies hx of HHC or SNF stays. Pt states no concerns with going home at time of dc. He denies needs for any AD. Pt reports he walks at [facility] often and he still works. He does not feel he would need any homegoing services such as HHC or outpt therapy. Pt states no further concerns/needs. CM to follow. Advised pt to ask CM if any further question/concerns/needs arise, voices understanding. Pt Goal: Home Plan: Home
[2021-08-05 13:00] VITALS: BP 128/73; PULSE 52; RESP 18; TEMP 36.6; O2SAT 96
== END 2021-08-05 13:55 | disposition home or self-care (01) ==
LOC: ED 22:39 → MS3 23:26
PROVIDERS: Admitting Provider Family Medicine; Emergency Provider Emergency Medicine; PCP Family Medicine; Visit Provider Internal Medicine
DX: M47.819 Spondylosis without myelopathy or radiculopathy, site unspecified (principal); R26.2 Difficulty in walking, not elsewhere classified; M51.36 Other intervertebral disc degeneration, lumbar region; E78.5 Hyperlipidemia, unspecified; Z87.891 Personal history of nicotine dependence; Z79.82 Long term (current) use of aspirin; Z79.899 Other long term (current) drug therapy; S39.012A Strain of muscle, fascia and tendon of lower back, initial encounter; X50.0XXA Overexertion from strenuous movement or load, initial encounter; Y93.89 Activity, other specified; Y99.9 Unspecified external cause status; Y92.9 Unspecified place or not applicable; K21.9 Gastro-esophageal reflux disease without esophagitis
CPT/HCPCS: 72131; 96374; 97162; 99218; 99285; G0378

== ENCOUNTER 2021-11-25 05:21 | Day surgery (SDC) | payer MEDICARE, OTHER, SELFPAY ==
[2021-11-25] VITALS (7 sets, daily range): BP systolic 107–140; BP diastolic 54–69; PULSE 59–64; RESP 14–18; TEMP 36.6–36.7; O2SAT 97–98; BMI 24.5
--- NOTE | 2021-11-25 | GASB_PTH ---
PATIENT: ADARSH SORENSEN LOC: EN U#:[id number] AGE/SX: 81/M ROOM: RE11/25/[address]: Dr. Danny Mathew DO : 1940 BED: DIS: 11/25/2021 SPEC #: [id number] RECD: 11/25/21 13:34 STATUS: KENDRICK ACOSTA #: [id number] DENNIS: 11/25/21 00:[address]: Danny Mathew DEPT: SURGICAL PATHOLOGY RECD BY: John Silva ENTERED: 11/25/21 13:35 SP TYPE: Gastric Bx BRITTNEY DR: Dr. Jared Cavazos MD Tissues: A - Gastric mucous membrane B - Esophageal mucous membrane C - Sigmoid colon biopsy Procedures: Special Stain Group II Surgery Specimen Level IV Alcian Blue/PAS (control) HEADER OPERATION: Colonoscopy, EGD with dilation (MAC) PRE-OP DIAGNOSIS: Intermittent diarrhea and dysphagia TISSUE SUBMITTED: A ? Gastric antrum biopsy, B ? Distal esophagus biopsy, C ? Sigmoid colon biopsy MICROSCOPIC DIAGNOSIS A. Gastric antrum, biopsy: Chronic gastritis. See comment. B. Distal esophagus, biopsy: Gastroesophageal junctional mucosa with mild chronic inflammation. Focal changes of reflux. No evidence of goblet cell metaplasia. See comment. C. Sigmoid colon, biopsy: No pathologic change. AM:jared 11/26/2021 COMMENT A. The results of immunohistochemistry for Helicobacter pylori will be reported separately ([id number]). B. Alcian blue/PAS stain with matched control supports the above diagnosis. MICROSCOPIC DESCRIPTION Slides are reviewed. GROSS DESCRIPTION A - Received in fixative is one container labeled with the patient's name and designated gastric antrum biopsy. The specimen consists of two irregular fragments of light valerio soft tissue that in aggregate measure 0.6 x 0.3 x 0.1 cm. The specimen is totally submitted in one cassette. B - Received in fixative is one container labeled with the patient's name and designated distal esophagus biopsy. The specimen consists of two irregular fragments of light valerio soft tissue that in aggregate measure 0.6 x 0.3 x 0.1 cm. The specimen is totally submitted in one cassette. C - Received in fixative is one container labeled with the patient's name and designated sigmoid colon biopsy. The specimen consists of multiple irregular fragments of light valerio soft tissue that in aggregate measure 1.5 x 0.5 x 0.1 cm. The specimen is totally submitted in one cassette. / SJ:rg 11/25/2021 TC:3 CPT: 82710 x3, 22797
[2021-11-25] MEDS: Lactated Ringers 1,000 ML 15 ML IV (06:01)
--- NOTE | 2021-11-25 06:30 | IMM_PTH ---
PATIENT: ADARSH SORENSEN LOC: EN U#:[id number] AGE/SX: 81/M ROOM: RE11/25/[address]: Dr. Danny Mathew DO : 1940 BED: DIS: 11/25/2021 SPEC #: [id number] RECD: 11/25/21 14:19 STATUS: KENDRICK RERaoul #: [id number] DENNIS: 11/25/21 06:[address]: Danny Mathew DEPT: IMMUNOHISTOCHEMISTRY RECD BY: Pebbles Arnold ENTERED: 11/25/21 14:20 SP TYPE: IMMUNO OTHR DR: Dr. Jared Cavazos MD Tissues: A - Stomach, NOS Procedures: H Pylori (initial) PHYSICIAN & INSTITUTION [place] [address] SPECIMEN INFORMATION: Tissue Source: A ? Gastric antrum Clinical Info: Intermittent diarrhea and dysphagia Specimen Number: [id number] CPT code: 61153 METHODOLOGY: Deparaffinized sections of prefer/formalin-fixed tissue or PAP/DQ stained slides are incubated with monoclonal/polyclonal antibodies/oligonucleotide probes. Localization is made via biotin free immunoperoxidase method. Appropriate controls are performed and reacted as expected. Results on target cell population are indicated in the following table: RESULTS: ANTIBODY / CLONE RESULT Block A H Pylori (polyclonal) negative These tests were developed and their performance characteristics determined by [facility]. They may not have been cleared or approved by the U.S. Food and Drug Administration. The FDA has determined that such clearance or approval is not necessary. The above immunohistochemical/dualISH markers are ordered and reviewed by the Pathologist. INTERPRETATION: A. Gastric antrum, biopsy: Negative for Helicobacter pylori organisms. AM:jared 11/26/2021
--- NOTE | 2021-11-25 06:35 | HP.PCM_ITS ---
History and Physical Date of Admission: 11/25/21 0 M who presents to the office today for Initial consult. Christiano established with this clinic 10.29.21 as a self-referral. Previously saw Dr. Blackwood (?) [facility] gastro[facility]. Reflux is a difficulty with nausea and feeling ?like it?s coming up my throat?. Occurs daily prior to breakfast. Notes that fried foods and dairy are triggers. Left sided abdominal pain with gaseous noises. Diarrhea/constipation is also a difficulty. Diarrhea has become more frequent typically occurring in the morning and will then have up to five days of no BM; this is exacerbated with changes of environment. Colonic stricture ?at the end of the colon?. Previous prepleater performed a cut to enlarge the opening about five years ago. FH colon cancer, father age 78. Remote history of EGD with hiatal hernia and ?gastric issues?. Colonoscopy approximately 3 years prior with polypectomy. ROS Const Constitutional: No anorexia, fatigue, fever(s), weight change or sleep problems Eyes Eyes: No change in vision ENT ENT: No abnormal hearing, difficulty swallowing, mouth lesions, tongue swelling or throat swelling Resp Respiratory: No cough or shortness of breath Cardio Cardiology: No chest pain at rest, chest pain with exertion, shortness of breath or dyspnea on exertion Gastro GI: No difficulty swallowing Genitourinary Male: No difficulty urinating or burning urination Musc Musculoskeletal: No joint pain, joint swelling, muscle weakness or decreased muscle mass Skin Skin: No hair loss in leg, yellowing of the eye, itchy eyes, rash, skin ulcer or skin swelling Neuro Neurology: No abnormal hearing, abnormal movements, confusion, unsteady gait/balance or memory loss Psych Psychiatric: No anxiety, No confusion and No memory loss Endo Endocrine: No fatigue or weight change Aller/Imm Allergy/Immunologic: No itchy eyes, throat swelling or tongue swelling Juma/Lymp Hematologic/Lymphatic: No easy bleeding, easy bruising or enlarged lymph nodes Exam Const General: cooperative and comfortable Nutritional Appearance: average body habitus and well nourished [facility] Head: normal to inspection Ears: hearing grossly normal bilaterally Nose: external nose normal Face and sinus: normal facial exam Mouth: oral mucosae normal Throat: posterior oropharynx normal Eyes General: appearance normal, both eyes and all related structures Neck Neck: normal visual inspection Chest Chest palpation & inspection: normal inspection of the chest and normal palpation of entire chest wall Resp Effort & Inspection: normal respiratory effort Auscultation: Bilateral: Clear to Auscultation Cardio Palpation: normal PMI Rate: regular rate Rhythm: regular rhythm GI Inspection: normal to inspection Auscultation: normal bowel sounds Percussion: normal to percussion Palpation: no hepatosplenomegaly Skin General: no rashes or lesions noted Neuro General: patient alert Extrem General: normal to inspection Psych Affect: normal affect Quality Reporting Tobacco Screening ([facility] 138) Smoking Status: Former smoker Assessment and Plan Assessment and Plan (1) Colonic stricture: ?Status:?Chronic ?Plan: He has a colonic stricture from unknown cause.? He will need to undergo colonoscopy for evaluation of his lower GI tract due to the fact that he is having more pencillike stools and intermittent diarrhea.? He was explained alternatives, risk, benefits including outstanding bleeding, infection, sepsis, perforation, need for emergent .? He will have an ASA of 3. 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 She will undergo stool testing of biochemical testing to see if he has a true disease or underlying bowel syndrome. (3) GERD (gastroesophageal reflux disease): ?Status:?Chronic ?Plan: We will evaluate his upper GI tract for Pisano's esophagus along with peptic ulcer disease.? He will continue current medicines that he is on along with recommendations in his diet.? He was okay with that plan. ? ? ? Medications: New sod sulf-pot chloride-mag sulf 1.479-0.188- 0.225 gram (Sutab)I Take 12 tabs two days prior to colonoscopy with 16ounces of water, then drink an additional 24 ounces of water. Take the second 12 tabs one day prior to colonoscopy in the same manner. 24 tabs 0RF ? ? I have re-examined the patient. There are no clinical changes since date of exam.
--- NOTE | 2021-11-25 07:17 | OP.EGD_ITS ---
Patient Name: Christiano Campbell Procedure Date: 11/25/2021 6:10 AM Date of : 1940 Age: 81 Procedure: Upper GI endoscopy Indications: Functional Dyspepsia, Dysphagia, Suspected esophageal reflux Providers: Danny Mathew DO Medicines: Monitored Anesthesia Care Patient Profile: This is an 81 year old male. Refer to note in patient chart for documentation of history and physical. Patient has symptoms of dysphagia with both liquids and solids and chronic heartburn. Complications: No immediate complications. Procedure: Pre-Anesthesia Assessment: - Prior to the procedure, a History and Physical was performed, and patient medications and allergies were reviewed. The risks and benefits of the procedure and the sedation options and risks were discussed with the patient. All questions were answered and informed consent was obtained. Patient identification and proposed procedure were verified by the physician in the pre-procedure area. Mental Status Examination: alert and oriented. Airway Examination: normal oropharyngeal airway and neck mobility. Respiratory Examination: clear to auscultation. CV Examination: normal. Prophylactic Antibiotics: The patient does not require prophylactic antibiotics. Prior Anticoagulants: The patient has taken no previous anticoagulant or antiplatelet agents. ASA Grade Assessment: II - A patient with mild systemic disease. After reviewing the risks and benefits, the patient was deemed in satisfactory condition to undergo the procedure. The anesthesia plan was to use monitored anesthesia care (MAC). Immediately prior to administration of medications, the patient was re-assessed for adequacy to receive sedatives. The heart rate, respiratory rate, oxygen saturations, blood pressure, adequacy of pulmonary ventilation, and response to care were monitored throughout the procedure. The physical status of the patient was re-assessed after the procedure. After obtaining informed consent, the endoscope was passed under direct vision. Throughout the procedure, the patient's blood pressure, pulse, and oxygen saturations were monitored continuously. The colonoscope was introduced through the mouth, and advanced to the second part of duodenum. The upper GI endoscopy was accomplished without difficulty. The patient tolerated the procedure well. Scope In: 6:41:22 AM Scope Out: 6:50:00 AM Total Procedure Duration Time 0 hours 8 minutes 38 seconds Findings: One benign-appearing, intrinsic stenosis was found 21 to 22 cm from the incisors. This stenosis was moderately severe and measured 3 cm (in length). The stenosis was traversed. A guidewire was placed and the scope was withdrawn. Dilation was performed with a Savary dilator with no resistance at 57 Fr. The dilation site was examined following endoscope reinsertion and showed complete resolution of luminal narrowing. Estimated blood loss was minimal. The Z-line was irregular and was found 40 cm from the incisors. Biopsies were taken with a cold forceps for histology. Verification of patient identification for the specimen was done. Estimated blood loss was minimal. A large hiatal hernia was present. Patchy mildly erythematous mucosa without bleeding was found in the gastric antrum. Biopsies were taken with a cold forceps for histology. Verification of patient identification for the specimen was done. Estimated blood loss was minimal. No gross lesions were noted in the second portion of the duodenum. Impression: - Benign-appearing esophageal stenosis. Dilated. - Z-line irregular, 40 cm from the incisors. Biopsied. - Large hiatal hernia. - Erythematous mucosa in the antrum. Biopsied. - No gross lesions in the second portion of the duodenum. Recommendation: - Discharge patient to home. - Resume previous diet. - Continue present medications. - Await pathology results. Procedure Code(s): --- Professional --- 93289, Esophagogastroduodenoscopy, flexible, transoral; with insertion of guide wire followed by passage of dilator(s) through esophagus over guide wire 62550, 59,51, Esophagogastroduodenoscopy, flexible, transoral; with biopsy, single or multiple CPT copyright 2017 [employer]. All rights reserved. The codes documented in this report are preliminary and upon share holder review may be revised to meet current compliance requirements. Danny Mathew DO 11/25/2021 7:16:44 AM This report has been signed electronically. Number of Addenda: 0 Note Initiated On: 11/25/2021 6:10 AM
--- NOTE | 2021-11-25 07:18 | OP.CCLET_ITS ---
11/25/2021 Jared Cavazos MD Re : Upper GI endoscopy procedure for Christiano Campbell Dear Dr. Cavazos This procedure was performed on Thursday, November 25, 2021. My impressions and recommendations are as follows: Impressions : - Benign-appearing esophageal stenosis. Dilated. - Z-line irregular, 40 cm from the incisors. Biopsied. - Large hiatal hernia. - Erythematous mucosa in the antrum. Biopsied. - No gross lesions in the second portion of the duodenum. Recommendations : - Discharge patient to home. - Resume previous diet. - Continue present medications. - Await pathology results. My findings are described in the full procedure note, which is enclosed. If I can be of further assistance, please feel free to contact me at . Sincerely, Danny Mathew, 11/25/2021 7:16:44 AM This report has been signed electronically.
--- NOTE | 2021-11-25 07:22 | OP.COLON_ITS ---
Patient Name: Christiano Campbell Procedure Date: 11/25/2021 6:50 AM Date of : 1940 Age: 81 Procedure: Colonoscopy Indications: Abdominal pain in the left lower quadrant, Periumbilical abdominal pain, Clinically significant diarrhea of unexplained origin Providers: Danny Mathew DO Medicines: Monitored Anesthesia Care Patient Profile: This is an 81 year old male. Refer to note in patient chart for documentation of history and physical. Patient has symptoms of dysphagia with both liquids and solids and chronic heartburn. Last Colonoscopy: several years ago. Complications: No immediate complications. Procedure: Pre-Anesthesia Assessment: - Prior to the procedure, a History and Physical was performed, and patient medications and allergies were reviewed. The risks and benefits of the procedure and the sedation options and risks were discussed with the patient. All questions were answered and informed consent was obtained. Patient identification and proposed procedure were verified by the physician in the pre-procedure area. Mental Status Examination: alert and oriented. Airway Examination: normal oropharyngeal airway and neck mobility. Respiratory Examination: clear to auscultation. CV Examination: normal. Prophylactic Antibiotics: The patient does not require prophylactic antibiotics. Prior Anticoagulants: The patient has taken no previous anticoagulant or antiplatelet agents. ASA Grade Assessment: II - A patient with mild systemic disease. After reviewing the risks and benefits, the patient was deemed in satisfactory condition to undergo the procedure. The anesthesia plan was to use monitored anesthesia care (MAC). Immediately prior to administration of medications, the patient was re-assessed for adequacy to receive sedatives. The heart rate, respiratory rate, oxygen saturations, blood pressure, adequacy of pulmonary ventilation, and response to care were monitored throughout the procedure. The physical status of the patient was re-assessed after the procedure. After I obtained informed consent, the scope was passed under direct vision. Throughout the procedure, the patient's blood pressure, pulse, and oxygen saturations were monitored continuously. The colonoscope was introduced through the anus and advanced to the terminal ileum. The colonoscopy was performed without difficulty. The patient tolerated the procedure well. The quality of the bowel preparation was poor. Scope In: 6:53:19 AM Scope Withdrawal Time 0 hours 10 minutes 49 seconds Scope Out: 7:08:39 AM Total Procedure Duration Time 0 hours 15 minutes 20 seconds Findings: The perianal exam findings include anal canal stenosis. The colon (entire examined portion) was significantly redundant. An area of mildly congested mucosa was found in the sigmoid colon. Biopsies were taken with a cold forceps for histology. Verification of patient identification for the specimen was done. Estimated blood loss was minimal. Semi-liquid stool was found in the rectum, in the sigmoid colon, in the transverse colon, at the hepatic flexure and in the cecum. The terminal ileum appeared normal. Impression: - Preparation of the colon was poor. - Anal canal stenosis found on perianal exam. - Redundant colon. - Congested mucosa in the sigmoid colon. Biopsied. - Stool in the rectum, in the sigmoid colon, in the transverse colon, at the hepatic flexure and in the cecum. - The examined portion of the ileum was normal. Recommendation: - Discharge patient to home. - Resume previous diet. - Continue present medications. - Await pathology results. - Repeat colonoscopy in 6 months because the bowel preparation was poor. Procedure Code(s): --- Professional --- 92724, Colonoscopy, flexible; with biopsy, single or multiple CPT copyright 2017 [employer]. All rights reserved. The codes documented in this report are preliminary and upon concrete inspector review may be revised to meet current compliance requirements. Danny Mathew DO 11/25/2021 7:21:32 AM This report has been signed electronically. Number of Addenda: 0 Note Initiated On: 11/25/2021 6:50 AM
--- NOTE | 2021-11-25 07:23 | OP.CCLET_ITS ---
11/25/2021 Jared Cavazos MD Re : Colonoscopy procedure for Christiano Campbell Dear Dr. Cavazos This procedure was performed on Thursday, November 25, 2021. My impressions and recommendations are as follows: Impressions : - Preparation of the colon was poor. - Anal canal stenosis found on perianal exam. - Redundant colon. - Congested mucosa in the sigmoid colon. Biopsied. - Stool in the rectum, in the sigmoid colon, in the transverse colon, at the hepatic flexure and in the cecum. - The examined portion of the ileum was normal. Recommendations : - Discharge patient to home. - Resume previous diet. - Continue present medications. - Await pathology results. - Repeat colonoscopy in 6 months because the bowel preparation was poor. My findings are described in the full procedure note, which is enclosed. If I can be of further assistance, please feel free to contact me at . Sincerely, Danny Mathew, 11/25/2021 7:21:32 AM This report has been signed electronically.
== END 2021-11-25 08:03 | disposition home or self-care (01) ==
LOC: EN 05:21 → AC 05:22
PROVIDERS: PCP Family Medicine; Referring Provider Family Medicine; Visit Provider Internal Medicine Gastroenterology
PROC: 0DJD8ZZ Inspection of Lower Intestinal Tract, Via Natural or Artificial Opening Endoscopic (ICD-10-PCS; CPT 45378; principal; 2021-11-25 06:25)
DX: K21.00 Gastro-esophageal reflux disease with esophagitis, without bleeding (principal); K22.2 Esophageal obstruction; K63.89 Other specified diseases of intestine; Q43.8 Other specified congenital malformations of intestine; K44.9 Diaphragmatic hernia without obstruction or gangrene; K29.50 Unspecified chronic gastritis without bleeding; K62.4 Stenosis of anus and rectum; N39.490 Overflow incontinence; Z87.891 Personal history of nicotine dependence; Z80.0 Family history of malignant neoplasm of digestive organs; M19.90 Unspecified osteoarthritis, unspecified site; E78.00 Pure hypercholesterolemia, unspecified; M10.9 Gout, unspecified; Z79.899 Other long term (current) drug therapy
CPT/HCPCS: 45380; 43239; 43248; 88305; 88313; 88342; J7120; C1769; J2405

== ENCOUNTER 2022-01-19 08:06 | Outpatient (CLI) | payer MEDICARE, OTHER, SELFPAY ==
--- NOTE | 2022-01-19 08:15 | RAD_ITS ---
STUDY: AIR CONTRAST UPPER GI SERIES and esophagram. REASON FOR EXAM: Male, 81 years old. K44.9 - Diaphragmatic hernia without obstruction or gangrene FLUOROSCOPY TIME (if supplied): (48 seconds) minutes/seconds. TECHNIQUE: SINGLE CONTRAST AND AIR CONTRAST FLUOROSCOPIC IMAGES. 22 images were obtained. COMPARISON: None. FINDINGS: The cervical esophagus demonstrates normal motility without aspiration. There is no stricture or extrinsic mass effect. No intraluminal polypoid mass is identified. The thoracic esophagus distends well without stricture or mucosal fold thickening. No mucosal ulcerations are identified. There is no extrinsic mass effect. There are no diverticula. Small sliding hiatal hernia with gastroesophageal reflux. The patient ingest a 12 mm tablet of barium without any difficulty. The stomach distends well without mucosal fold thickening or mucosal ulceration. There is no intraluminal mass. The duodenal bulb is freely distensible without deformity or ulceration. The duodenal sweep is normal in position and caliber. Endoluminal stent grafting of the infrarenal abdominal aorta is visualized. Elevation of the right hemidiaphragm. RAD/Upper GI w/BA Swallow IMPRESSION: Small sliding hiatal hernia with gastroesophageal reflux. Electronically Signed: Pacheco Brooks MD at 12:36 EST ,
== END 2022-01-19 23:59 | disposition home or self-care (01) ==
LOC: RAD 08:07
PROVIDERS: PCP Family Medicine; Referring Provider Surgery; Visit Provider Surgery
DX: K44.9 Diaphragmatic hernia without obstruction or gangrene (principal); K21.00 Gastro-esophageal reflux disease with esophagitis, without bleeding; R93.89 Abnormal findings on diagnostic imaging of other specified body structures
CPT/HCPCS: 74246

== ENCOUNTER 2022-01-22 12:18 | Day surgery (SDC) | payer MEDICARE, OTHER, SELFPAY ==
[2022-01-22 12:53] VITALS: BP 146/91; PULSE 74; RESP 18; TEMP 36.2
[2022-01-22] MEDS: Lidocaine Jelly 2% 20 ML Syringe (URO-JET) 1 APPLIC (12:55)
== END 2022-01-22 23:59 | disposition home or self-care (01) ==
LOC: EN 12:20
PROVIDERS: PCP Family Medicine; Referring Provider Family Medicine; Visit Provider Surgery
PROC: F00ZJWZ Instrumental Swallowing and Oral Function Assessment using Swallowing Equipment (ICD-10-PCS; CPT 43235; principal; 2022-01-22 12:25)
DX: K21.9 Gastro-esophageal reflux disease without esophagitis (principal)
CPT/HCPCS: 91010

== ENCOUNTER 2022-03-23 05:55 | Day surgery (SDC) | payer MEDICARE, OTHER, SELFPAY ==
[2022-03-11 08:30] LABS: Hematocrit 40.4 % (40-54); Hemoglobin 13.8 g/dL (13.0-16.5); Mean Corp Hgb Conc 34.2 g/dL (32-36); Mean Corpuscular Hgb 32.6 pg (27.0-32.0); Mean Corpuscular Volume 95.5 fL (80-94); Mean Platelet Vol. 10.1 fl (6.2-12.0); Platelet Count 151 K/mm3 (150-450); RBC Distribution Width CV 12.7 % (11.6-14.6); RBC Distribution Width SD 44.7 fl (35.1-43.9); Red Blood Count 4.23 M/mm3 (4.6-6.2); White Blood Count 4.5 K/mm3 (4.4-11.0)
[2022-03-11 08:58] LABS: Anion Gap 6 (5-15); BUN 24 mg/dL (7-18); BUN/Creat Ratio 18.3 RATIO (10-20); Chloride 105 mmol/L (98-107); Creatinine, Serum 1.31 mg/dL (0.70-1.30); EST Glomerular Filtration Rate 56 mL/min (>60); Est Glom Filt Rate - Afr Amer 68 mL/min (>60); Glucose 120 mg/dL (74-106); Potassium 3.7 mmol/L (3.5-5.1); Sodium Level 141 mmol/L (136-145)
[2022-03-23] VITALS (9 sets, daily range): BP systolic 122–157; BP diastolic 62–71; PULSE 56–75; RESP 14–18; TEMP 36.3–36.9; O2SAT 90–100; BMI 23.6
[2022-03-23] MEDS: Lactated Ringers 1,000 ML 15 ML IV ×2 (06:15→08:30)
--- NOTE | 2022-03-23 06:38 | HP.PCM_ITS ---
History and Physical Date of Admission: 03/23/22 Chief Complaint: discuss results and surgery/update H&P Is patient in pain?: No Allergies No Known Allergies Allergy (Verified 02/19/22 14:34) Medications aspirin 81 mg chewable tablet 81 mg PO DAILY@0800 HEART 02/21/16 [History Confirmed 01/15/22] rosuvastatin 20 mg tablet 20 mg PO DAILY #90 tabs 06/18/20 [Rx Confirmed 01/15/22] omeprazole 20 mg capsule,delayed release 40 mg PO DAILY GERD 01/15/22 [History] PFSH Medical History? AAA (abdominal aortic aneurysm) without rupture Anemia Arthritis Back pain Basal cell carcinoma (BCC) in situ of skin Blood disorder Cancer Cardiology follow-up encounter Chest pain Fatigue Former smoker Gout High cholesterol History of echocardiogram History of hiatal hernia History of IBS History of stress test Hyperlipidemia Intractable low back pain Leg cramps Lumbosacral strain Lymphoma Palpitations Pure hypercholesterolemia Shortness of breath Sinus bradycardia Unable to ambulate Wears glasses Surgical History? aorto bi-common iliac stent graft (~11/2014) History of AAA (abdominal aortic aneurysm) repair History of cardiac catheterization History of cholecystectomy History of colonoscopy (~11/2021) History of esophagogastroduodenoscopy (EGD) (~11/2021) Family History? Father Colon cancerMother?? Alzheimers diseaseBrother Multiple sclerosis Social History? Smoking Status:? Former smoker how long ago did patient quit smoking:? 1973 alcohol intake:? current alcohol intake frequency: a few times a week Alcohol type: wine and hard liquor substance use type:? does not use caffeine:? Yes Type: coffee what type of physical activity do you participate in:? none seatbelt use:? always do you feel safe at home:? Yes HPI HPI HPI: 81-year-old female with a very long-term history of hiatal hernia and reflux disease.? 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 I started him on sucralfate a gram twice daily at his most recent visit was January 15, 2022.? I had remotely assisted him with a laparoscopic cholecystectomy and discussed with him hernia repair at that setting as well.? He is too uncomfortable at night and cannot raise the head of his bed so he simply does not eat after 6 PM nightly.? I obtained a barium swallow on him on January 19, 2022 showing a small sliding out of hernia with reflux disease.? There is evidence of a previous endoluminal stent graft in the infrarenal abdominal aorta.? There is chronic elevation of the right hemidiaphragm.? He had esophageal manometry on January 22, 2022 10 swallows were analyzed there was felt to be normal swallow pressures and normal LES relaxation with good bolus food clearance.? A normal study.? The summary of his referral from Dr. Danny Mathew and CONNIE Perez is as follows Discussion today the patient continues to have reflux problems.? He claims that it affects the type of foods he eats he does not eat fried food.? Tight effects the time that he eats.? He specifically complains that if he lies supine that he will feel a water brash dysphagia for reflux all the way up to his mouth.? As noted below he is otherwise enjoying a very high quality of life 81-year-old gentleman is being referred by CONNIE Perez for surgical consultation regarding possible hiatal hernia repair.? A written copy of my surgical consult and recommendations will return to her. It is of note that August 2020 he had a cardiac stress test per Dr. Kaden Ortiz 1.? Rest and stress SPECT Cardiolite nuclear imaging demonstrate relative uniform tracer uptake and myocardial perfusion appearing within normal limits. 2.? The gated Cardiolite study reports an LVEF of 75%. I report the patient's colon prep was poor and he is rescheduled in the future to have a repeat attempt at colonoscopy as well as gastroenterology intervention regarding anal stenosis. Her synopsis is as follows ADARSH SORENSEN, is a 81 M who presents to the office today for discussion of EGD and colonoscopy findings.? Testing was indicated for chronic nausea, chronic acid reflux, hiatal hernia, alternating diarrhea and constipation.? On EGD he was found to have a large hiatal hernia, esophageal stenosis which Dr. Mathew dilated; negative H. pylori, negative Pisano's.? Dr. Mathew recommended he consider fundoplication for the large hiatal hernia.? On colonoscopy, he has anal stenosis, redundant colon, the prep was poor, no pathologic change on biopsy in the sigmoid colon.? Dr. Mathew recommends dilation of the anal stenosis.? Approximately 5 years ago his previous diesel mechanic helper performed an anal cut which helped with lower GI symptoms for about 6 months.? He also recommends repeating colonoscopy in 6 months because the bowel prep was poor.? Patient tried Sutab prep but still had difficulty with the amount of fluid required. He has chronic acid reflux and regurgitation, this often feels like nausea, no vomiting.? Swallowing is better since the endoscopy.? He can only eat very small meals, has to stop eating hours before he reclines, cannot tolerate fried foods.? He is interested in considering surgery for the large hiatal hernia.? Bowels never feel like they are fully evacuated, but he has frequent watery stools. Has tried stool softener but made constipation worse. Drinks prune juice every morning to help with BM. Too much fiber increases constipation. Lots of gas and belching, and some bloating. FH colon cancer, father age 78. 11/25/21 EGD and Colonoscopy Impression: ? - Benign-appearing esophageal stenosis. Dilated. ? - Z-line irregular, 40 cm from the incisors. ? Biopsied. ? - Large hiatal hernia. ? - Erythematous mucosa in the antrum. Biopsied. ? - No gross lesions in the second portion of the ? duodenum. Impression: ? - Preparation of the colon was poor. ? - Anal canal stenosis found on perianal exam. ? - Redundant colon. ? - Congested mucosa in the sigmoid colon. ? Biopsied. ? - Stool in the rectum, in the sigmoid colon, in ? the transverse colon, at the hepatic flexure ? and in the cecum. ? - The examined portion of the ileum was normal. MICROSCOPIC DIAGNOSIS A.? Gastric antrum, biopsy: ?Chronic gastritis. ?See comment. Negative H pylori B.? Distal esophagus, biopsy: ?Gastroesophageal junctional mucosa with mild chronic inflammation. ?Focal changes of reflux. ?No evidence of goblet cell metaplasia. ?See comment. C.? Sigmoid colon, biopsy: ?No pathologic change Referring Dr. Delgado Friend's upper endoscopy note of November 25, 2021 suggest that the patient had a intrinsic stenosis approximately 21 to 22 cm from the incisors moderately severe 3 cm in length.? Dilatation was performed with a savory dilator to 57 Sami.? There appeared to be complete resolution of the luminal narrowing.? The Z-line was irregular and found at 40 cm from the incisors.? Large hiatal hernia was present. January 19, 2022 STUDY:? AIR CONTRAST UPPER GI SERIES and esophagram. REASON FOR EXAM:? Male, 81 years old.? K44.9 - Diaphragmatic hernia without obstruction or gangrene FLUOROSCOPY TIME (if supplied): (48 seconds) minutes/seconds. TECHNIQUE:? SINGLE CONTRAST AND AIR CONTRAST FLUOROSCOPIC IMAGES.? 22 images were obtained. COMPARISON:? None. FINDINGS: The cervical esophagus demonstrates normal motility without aspiration. There is no stricture or extrinsic mass effect.? No intraluminal polypoid mass is identified. The thoracic esophagus distends well without stricture or mucosal fold thickening.? No mucosal ulcerations are identified.? There is no extrinsic mass effect.? There are no diverticula. Small sliding hiatal hernia with gastroesophageal reflux.? The patient ingest a 12 mm tablet of barium without any difficulty. The stomach distends well without mucosal fold thickening or mucosal ulceration.? There is no intraluminal mass.? The duodenal bulb is freely distensible without deformity or ulceration.? The duodenal sweep is normal in position and caliber. Endoluminal stent grafting of the infrarenal abdominal aorta is visualized. Elevation of the right hemidiaphragm. RAD/Upper GI w/BA Swallow IMPRESSION: Small sliding hiatal hernia with gastroesophageal reflux. ? Electronically Signed: Pacheco Brooks MD at 12:36 EST , ROS General General: No weight change, appetite, fatigue, colon cancer or breast cancer HEENT HEENT: Yes eye surgery; No difficulty swallowing, eye injury, swollen glands or hoarseness Endo Endocrine: No thyroid disease, diabetes mellitus, thyroid cancer, Hair loss, heat intolerance or cold intolerance Skin Skin: No rash or changing moles Breast Breast: No left breast lump, right breast lump, nipple discharge, breast pain, abnormal mammogram, abnormal US or breast enlargement Musc Musculoskeletal: Yes rheumatoid arthritis; No back problems, arthritis, gout or joint pain Cardio Cardiovascular: Yes heart stent; No murmur, pacemaker, heart disease, atrial fibrillation, high blood pressure, heart attack, palpitations, shortness of breat with exertion or chest pain Additional Details: Aortic stent Psych Psychiatric: No depression, anxiety or hearing voices Resp Respiratory: No shortness of breath, Yes sleep apnea, No cough, No COPD, No asthma, No emphysema and No wheezing Gastro Gastrointestinal: Yes nausea or vomiting and Yes blood in stool Juma Hematologic: No blood thinners, Yes blood disorders, No bleeding, No anemia and No blood clots Additional Details: lymphoma Exam Const General: cooperative, healthy appearing, comfortable and no acute distress [facility] Head: normal to inspection Eyes General: appearance normal, both eyes and all related structures Neck Neck: normal visual inspection Chest Chest palpation & inspection: normal inspection of the chest Resp Effort & Inspection: normal respiratory effort Auscultation: clear to auscultation bilaterally Cardio Rate: regular rate Rhythm: regular rhythm GI Palpation: soft and no hepatosplenomegaly Auscultation: normal bowel sounds Skin General: no rashes or lesions noted Neuro General: patient alert, patient awake and patient oriented x3 Extrem General: no calf tenderness Psych Appearance: grossly normal Assessment and Plan Assessment and Plan (1) Hiatal hernia with gastroesophageal reflux disease and esophagitis: ?Status:?Acute (2) GERD (gastroesophageal reflux disease): ?Status:?Chronic (3) AAA (abdominal aortic aneurysm) without rupture: ?Status:?Chronic ?Plan: The patient has had a stent graft repair of abdominal aortic aneurysm and by clinical report that is stable.? He has gastroesophageal reflux disease and a hiatal hernia with esophagitis.? I have described to him the technique of laparoscopic repair of his hiatal hernia with a surgical reflux procedure.? Although his manometry is completely normal I would propose for him a laparoscopic toupet procedure.? We have extensively discussed technique benefit risk complication alternatives.? No guarantees of success were offered.? Because of his extremely high quality lifestyle I do believe that he would be a candidate. He has had an opportunity to ask and have questions answered.? Patient states that he has not had any food gets stuck since his procedure with Dr. Mathew. The patient does believe that his reflux symptoms however have continued to escalate with feeling more heartburn and waterbrash. The patient h as chronic constipation. He states that he is currently constipated. He states he took some prune juice last night without effect. He has MiraLAX at home which worked for him for his colonoscopy but he has not taken any. He denies any chest pain or shortness of breath. The remainder of his presentation is unchanged. Copy: Dr. Jared Rich M.D., F.A.C.S I have examined the patient and the H&P has been reviewed. There are no clinical changes since date of exam.
--- NOTE | 2022-03-23 06:41 | DCINST_ITS ---
Discharge Instructions Procedure General Surgery Diet Discharge Diet: - (Dietary instructions as provided with information from the office.) Activity Discharge Activity: May Not Drive (for 3-5 days or while taking narcotic pain medicine.) May shower in (days): 1 Lifting Restrictions: 10 pounds Dressing / Incision Call your doctor if your incision/area has: Continuous Slow Oozing, Sudden Increased Bleeding, Increased Pain/ Swelling, Increased Redness and Foul Smelling Discharge Call your doctor if you observe: Fever of 101 or Higher Suture Line Care: Avoid Pulling/Pushing and Avoid Pinching/Bending Additional Dressing/Incision Instructions:: Change or remove dressing in 4 days. Leave steri-strips in place for 1 week. Follow Up Care Please Follow Up With: Sean Rich MD When: Call [phone] to make an appointment to be seen in about 10 days. Test Results: Test results from this visit will be discussed in further detail at your follow- up appointment, if applicable. Discharge Plan Admission Attending Provider: Sean Rich Primary Care Provider: Jared Cavazos Discharge Orders/Prescriptions Prescriptions: No Action omeprazole 20 mg capsule,delayed release(DR/EC) 40 mg PO DAILY aspirin 81 MG tablet,chewable 81 mg PO DAILY@0800 rosuvastatin 20 mg tablet 20 mg PO DAILY Qty: 90 3RF Other Ambulatory Orders: 12 Lead EKG (Routine) Timeframe: [id number] Location: None Selected Ordered By: Dr. Sean Rich Referrals / Follow Up: Jared Cavazos MD [Primary Care Provider] - Disposition Disposition (needs filled in before D/C Order can be placed): Home, Self Care
[2022-03-23] MEDS: Cefazolin 2 GM in 0.9% Normal Saline 100 ML IV (08:05)
[2022-03-23] MEDS: Bupivacaine 0.5% PF 10 ML VIAL (08:19)
[2022-03-23] MEDS: Lubricating Jelly 60 GM Tube 30 GM (08:59)
--- NOTE | 2022-03-23 10:44 | OP.PCM_ITS ---
Report of Operation Date of Procedure: 03/23/22 Pre-Operative Diagnosis: Intractable gastroesophageal reflux disease with esoph ageal stricture and a hiatal hernia Post-Operative Diagnosis: Same Surgery/Procedure Performed:: Laparoscopic toupet procedure Intraoperative esophagogastroduodenoscopy Description of Surgical Findings:: Timeout informed consent was obtained. 81-year-old gentleman was taken to the operating placed on table underwent general tracheal ovation esthesia Ancef 2 g were given intravenously he was placed in the low lithotomy position with careful buttock roll padding and support legs and arms were padded. The abdomen sterilely prepped draped Ioban draping was used as well 0.5% Marcaine was used as a local anesthetic. Throughout the procedure a total of 30 cc was used. Skin sites were. A size superior of the umbilicus slightly end of the right paramedial area 5 mm Visiport technology was used to gain access to the abdomen. Clean access was achieved. The abdomen was insufflated with CO2 to a pressure of 10 mmHg pressure. 10 mm trocar was inserted in the left epigastric. Midline area and then 2 more 5 mm trocars on the left subcostal area and additional 5 mm site was placed in the epigastric area a Babita blade was inserted and used to elevate the left lobe of the liver and secured. The epiphrenic ligament identified tissue overlying was transected with harmonic scalpel care was taken to observe the anterior vagus nerve which was protected the right kristine identified first tissue was carefully transected with the harmonic scalpel blunt dissection was used as well then I transected the short gastrics. There was some very slight oozing at the spleen which was treated with fibular with good results. The stomach was really quite densely adherent to the left upper quadrant to the splenic attachments and this dissection was very careful and tedious then completely mobilized the stomach was available to identify the left crura dissected the stomach off of this got into the mediastinum with some sharp and blunt dissection then looked back to the right side did some further dissection was able to get form the retroesophageal space keeping the posterior vagus nerve with the esophagus placed half inch [place] drain this I used to elevate the esophagus now within the mediastinum over the lower 4 to 6 cm was able to dissect circumferentially free and completely mobilized the distal e sophagus. The crura were completely identified the esophagus nicely mobilized I used pledgeted 0 Ethibond sutures and approximated the diaphragmatic hand hiatus. Placed a 45 Croatian bougie felt that I had good approximation. Then took the fundus of the stomach wrapped it around posteriorly I secured the posterior portion that wrap to the diaphragmatic repair then performed a toupet procedure using a 2-0 Ethibond suture securing the esophagus to the epiphrenic ligament to the wrap portion of the stomach and then in a running fashion approximated the stomach to the esophagus. That was over a length of about 2- 1/2 to 3 cm. I mirrored the process with the fundus and stomach on the left gauging tension posteriorly and again secured the fundus to the epiphrenic ligament to the esophagus. That was then run to the stomach and fundic wrap and esophagus for length of 3 cm. Having achieved that I felt that hemostasis was nicely intact. Irrigated fluid in the abdomen I then performed a esop hagogastroduodenoscopy. This demonstrated that the EG junction was closed but easily transgress simple inspected the duodenum retroflexed inspected the wrap which appeared to be nicely intact excess fluid nurse aspirated free it is of note that there was no intra-abdominal air leak during that process. I then inspected the wrap felt that it was intact took the 10 mm trocar close that incision with a 0 Vicryl grainee needle simple suture. I used the Marcaine and did a modified left subcostal nerve block under direct laparoscopic visualization. Then I am inclined to procedure allow the abdomen deflated CO2 through an antiviral valve. Trocars removed. Skin sites were closed with interrupted 4-0 Monocryl subdermal stitches. Steri-Strips Telfa OpSite dressings applied. Sponge and instrument and needle counts were reported to the surgeon to be correct. Specimens none. Drains none. Blood loss 10 cc. The patient was taken to the recovery room in satisfied condition without complication Surgeon: Sean Rich Type of Anesthesia: General Anesthesiologist: Cristela Smith
--- NOTE | 2022-03-23 10:59 | OP.EGD_ITS ---
Patient Name: Christiano Campbell Procedure Date: 03/23/2022 9:22 AM Date of : 1940 Age: 81 Procedure: Upper GI endoscopy Indications: Intraoperative evaluation of fundoplication formation during anatomic reconstruction foregut surgery Providers: Sean Rich MD Medicines: See the Anesthesia note for documentation of the administered medications Complications: No immediate complications. Procedure: Pre-Anesthesia Assessment: - Prior to the procedure, a History and Physical was performed, and patient medications and allergies were reviewed. The patient's tolerance of previous anesthesia was also reviewed. The risks and benefits of the procedure and the sedation options and risks were discussed with the patient. All questions were answered, and informed consent was obtained. Prior Anticoagulants: The patient has taken no previous anticoagulant or antiplatelet agents. ASA Grade Assessment: II - A patient with mild systemic disease. After reviewing the risks and benefits, the patient was deemed in satisfactory condition to undergo the procedure. After obtaining informed consent, the endoscope was passed under direct vision. Throughout the procedure, the patient's blood pressure, pulse, and oxygen saturations were monitored continuously. The Endoscope was introduced through the mouth, and advanced to the second part of duodenum. The gastroscope was introduced through the mouth, and advanced to the second part of duodenum. The upper GI endoscopy was accomplished without difficulty. The patient tolerated the procedure well. Scope In: 10:16:09 AM Scope Out: 10:20:13 AM Total Procedure Duration Time 0 hours 4 minutes 4 seconds Findings: The examined esophagus was normal. Evidence of a Toupet fundoplication was found in the gastric fundus. The wrap appeared intact. The examined duodenum was normal. Impression: - Normal esophagus. - A Toupet fundoplication was found. The wrap appears intact. - Normal examined duodenum. - No specimens collected. Recommendation: - Discharge patient to home. - Clear liquid diet. - Continue present medications. - Return to my office in 10 days. Procedure Code(s): --- Professional --- 08132, Esophagogastroduodenoscopy, flexible, transoral; diagnostic, including collection of specimen(s) by brushing or washing, when performed (separate procedure) Diagnosis Code(s): --- Professional --- Z98.890, Other specified postprocedural states CPT copyright 2017 [employer]. All rights reserved. The codes documented in this report are preliminary and upon county home demonstrator review may be revised to meet current compliance requirements. Sean Rich MD 03/23/2022 10:58:38 AM This report has been signed electronically. Number of Addenda: 0 Note Initiated On: 03/23/2022 9:22 AM
[2022-03-23] MEDS: Ketorolac 15 MG/ML Vial IV (11:37)
[2022-03-23] MEDS: Acetaminophen 325 MG Tablet 650 MG PO (14:34)
--- NOTE | 2022-03-23 15:44 | SUR.PHASEII ---
1516: Patient cleared and ready for discharge, awaiting script from [facility] Retail pharmacy.
== END 2022-03-23 15:46 | disposition home or self-care (01) ==
LOC: SDC 05:56 → AC 05:56 → ACINP 12:10
PROVIDERS: PCP Family Medicine; Referring Provider Surgery; Visit Provider Surgery
PROC: (CPT 43325; principal; 2022-03-23 07:40)
DX: K44.9 Diaphragmatic hernia without obstruction or gangrene (principal); I71.40 Abdominal aortic aneurysm, without rupture, unspecified; I73.9 Peripheral vascular disease, unspecified; K21.00 Gastro-esophageal reflux disease with esophagitis, without bleeding; Z95.828 Presence of other vascular implants and grafts; R14.0 Abdominal distension (gaseous); K59.09 Other constipation; Q43.8 Other specified congenital malformations of intestine; Z87.891 Personal history of nicotine dependence; Z80.0 Family history of malignant neoplasm of digestive organs; R11.0 Nausea; K22.2 Esophageal obstruction; Z98.890 Other specified postprocedural states; E78.00 Pure hypercholesterolemia, unspecified
CPT/HCPCS: 43235; 43281; 00790; 36415; 80048; 85027; 93005; J7120; J2405

== ENCOUNTER 2022-06-05 05:28 | Day surgery (SDC) | payer MEDICARE, OTHER, SELFPAY ==
[2022-06-05] VITALS (7 sets, daily range): BP systolic 95–127; BP diastolic 53–71; PULSE 51–75; RESP 14–18; TEMP 36.3–36.6; O2SAT 97–98; BMI 23.4
[2022-06-05] MEDS: Lactated Ringers 1,000 ML 15 ML IV (05:54)
--- NOTE | 2022-06-05 06:34 | HP.PCM_ITS ---
History and Physical Date of Admission: 06/05/22 81 M who presents to the office today for discussion of EGD and colonoscopy findings.? Testing was indicated for chronic nausea, chronic acid reflux, hiatal hernia, alternating diarrhea and constipation.? On EGD he was found to have a large hiatal hernia, esophageal stenosis which Dr. Mathew dilated; negative H. pylori, negative Pisano's.? Dr. Mathew recommended he consider fundoplication for the large hiatal hernia.? On colonoscopy, he has anal stenosis, redundant colon, the prep was poor, no pathologic change on biopsy in the sigmoid colon.? Dr. Mahtew recommends dilation of the anal stenosis.? Approximately 5 years ago his previous primary care provider performed an anal cut which helped with lower GI symptoms for about 6 months.? He also recommends repeating colonoscopy in 6 months because the bowel prep was poor.? Patient tried Sutab prep but still had difficulty with the amount of fluid required. He has chronic acid reflux and regurgitation, this often feels like nausea, no vomiting.? Swallowing is better since the endoscopy.? He can only eat very small meals, has to stop eating hours before he reclines, cannot tolerate fried foods.? He is interested in considering surgery for the large hiatal hernia.? Bowels never feel like they are fully evacuated, but he has frequent watery stools. Has tried stool softener but made constipation worse. Drinks prune juice every morning to help with BM. Too much fiber increases constipation. Lots of gas and belching, and some bloating. FH colon cancer, father age 78. 11/25/21 EGD and Colonoscopy Impression: ? - Benign-appearing esophageal stenosis. Dilated. ? - Z-line irregular, 40 cm from the incisors. ? Biopsied. ? - Large hiatal hernia. ? - Erythematous mucosa in the antrum. Biopsied. ? - No gross lesions in the second portion of the ? duodenum. Impression: ? - Preparation of the colon was poor. ? - Anal canal stenosis found on perianal exam. ? - Redundant colon. ? - Congested mucosa in the sigmoid colon. ? Biopsied. ? - Stool in the rectum, in the sigmoid colon, in ? the transverse colon, at the hepatic flexure ? and in the cecum. ? - The examined portion of the ileum was normal. MICROSCOPIC DIAGNOSIS A.? Gastric antrum, biopsy: ?Chronic gastritis. ?See comment. Negative H pylori B.? Distal esophagus, biopsy: ?Gastroesophageal junctional mucosa with mild chronic inflammation. ?Focal changes of reflux. ?No evidence of goblet cell metaplasia. ?See comment. C.? Sigmoid colon, biopsy: ?No pathologic change ROS Const Constitutional: No fatigue, fever(s), frequent falls, headache(s) or weight childress ge ENT ENT: No headache(s) or difficulty swallowing Cardio Cardiology: No leg pain with exertion Gastro GI: Positive for abdominal pain, bloating, change in bowel habits, constipation, diarrhea and heartburn; No difficulty swallowing, Vomiting blood/hematemesis, Blood in stool, nausea/dyspepsia or vomiting Musc Musculoskeletal: Positive for stiffness and Arthritis; No abnormal gait, joint pain, back pain, joint swelling, muscle cramps, muscle weakness, numbness, tingling, sciatica, leg pain at night or leg pain with exertion Skin Skin: Positive for lesions; No dry skin, itchy eyes or rash Neuro Neurology: No abnormal gait, dizziness, frequent falls, headache(s), numbness, tingling, tremor(s), Increased tone in limbs, paralysis or seizures Psych Psychiatric: No anxiety, No depression, No paranoia, No Behavioral Problems, No Compulsive Behavior, No hyperactivity, No inattentiveness, No obsessions/compulsions, No Temper Tantrums and No suicidal ideation Endo Endocrine: No fatigue or weight change Aller/Imm Allergy/Immunologic: No itchy eyes Juma/Lymp Hematologic/Lymphatic: Positive for easy bruising; No easy bleeding Exam Const General: cooperative and healthy appearing Nutritional Appearance: average body habitus Orientation: alert, awake and oriented x3 Other: Appears younger than his age Quality Reporting Tobacco Screening ([facility] 138) Smoking Status: Former smoker Assessment and Plan Assessment and Plan (1) Hiatal hernia with gastroesophageal reflux disease and esophagitis: ?Status:?Acute ?Plan: We discussed EGD and colonoscopy findings Continue omeprazole Refer to Gen Surg for eval for fundoplication for large hiatal hernia with significant daily symptoms that impact his QOL (2) Anal stenosis: ?Status:?Acute ?Plan: Schedule repeat colonoscopy and dilation of anal stenosis ? ? ? Orders: Orders Colonoscopy 03/27/22 K62.4 - Stenosis of anus and re ctum ? Referrals General Surgery ? K21.00 - Gastro-esophageal reflux disease with esophagitis, without bleeding, K44.9 - Diaphragmatic hernia without obstruction or gangrene ? Medications: New omeprazole 20 mg? PO DAILY PRN 90 caps 3RF GERD ? ? Discontinued sod sulf-pot chloride-mag sulf 1.479-0.188- 0.225 gram (Sutab) ?? Discontinued Reason:? Pt no longer taking ?Take 12 tabs two days prior to col onoscopy with 16ounces of water, then drink an additional 24 ounces of water. Take the second 12 tabs one day prior to colonoscopy in the same manner. 24 tabs 0RF ? ? hydrocodone-acetaminophen 5-325 mg ?? 1-2 tabs every 6 hours as needed for pain ?? Discontinued Reason:? Pt no longer taking 1 TAB? PO Q6H 7 days PRN 30 tabs 0RF pain S39.012A - Strain of muscle, fascia and tendon of lower back, initial encounter ? I have examined the patient and the H&P has been reviewed. There are no clinical changes since date of exam.
--- NOTE | 2022-06-05 07:09 | OP.COLON_ITS ---
Patient Name: Christiano Campbell Procedure Date: 06/05/2022 6:06 AM Date of : 1940 Age: 81 Procedure: Colonoscopy Indications: Hematochezia, Chronic diarrhea, Rectal pain Providers: Danny Mathew DO Referring MD: Danny Mathew DO Medicines: Monitored Anesthesia Care Patient Profile: This is an 81 year old male. Refer to note in patient chart for documentation of history and physical. Last Colonoscopy: 1 year ago. Complications: No immediate complications. Procedure: Pre-Anesthesia Assessment: - Prior to the procedure, a History and Physical was performed, and patient medications and allergies were reviewed. The patient is competent. The risks and benefits of the procedure and the sedation options and risks were discussed with the patient. All questions were answered and informed consent was obtained. Patient identification and proposed procedure were verified by the physician in the pre-procedure area. Mental Status Examination: alert and oriented. Airway Examination: normal oropharyngeal airway and neck mobility. Respiratory Examination: clear to auscultation. CV Examination: normal. Prophylactic Antibiotics: The patient does not require prophylactic antibiotics. Prior Anticoagulants: The patient has taken no previous anticoagulant or antiplatelet agents. ASA Grade Assessment: III - A patient with severe systemic disease. After reviewing the risks and benefits, the patient was deemed in satisfactory condition to undergo the procedure. The anesthesia plan was to use monitored anesthesia care (MAC). Immediately prior to administration of medications, the patient was re-assessed for adequacy to receive sedatives. The heart rate, respiratory rate, oxygen saturations, blood pressure, adequacy of pulmonary ventilation, and response to care were monitored throughout the procedure. The physical status of the patient was re-assessed after the procedure. After I obtained informed consent, the scope was passed under direct vision. Throughout the procedure, the patient's blood pressure, pulse, and oxygen saturations were monitored continuously. The colonoscope was introduced through the anus and advanced to the cecum, identified by appendiceal orifice and ileocecal valve. The colonoscopy was performed without difficulty. The patient tolerated the procedure well. The quality of the bowel preparation was adequate. Scope In: 6:39:41 AM Scope Withdrawal Time 0 hours 13 minutes 35 seconds Scope Out: 6:57:19 AM Total Procedure Duration Time 0 hours 17 minutes 38 seconds Findings: The digital rectal exam findings include anal stricture. Pertinent negatives include no anal lesion or abnormality was detected. The colon (entire examined portion) appeared normal. A benign-appearing, intrinsic severe stenosis measuring 2 cm (in length) x 4 mm (inner diameter) was found at the anus and was traversed. A guidewire was placed and the scope was withdrawn. Dilation was performed with a Savary dilator with no resistance at 51 Fr. The dilation site was examined following endoscope reinsertion and showed moderate improvement in luminal narrowing. Estimated blood loss was minimal. Impression: - Anal stricture found on digital rectal exam. - The entire examined colon is normal. - Stricture at the anus. Dilated. - No specimens collected. Recommendation: - Discharge patient to home. - Resume previous diet. - Continue present medications. - Repeat colonoscopy. Procedure Code(s): --- Professional --- 50879, Colonoscopy, flexible; diagnostic, including collection of specimen(s) by brushing or washing, when performed (separate procedure) 98922, Unlisted procedure, anus CPT copyright 2017 [employer]. All rights reserved. The codes documented in this report are preliminary and upon cuff turner review may be revised to meet current compliance requirements. Danny Mathew DO 06/05/2022 7:08:16 AM This report has been signed electronically. Number of Addenda: 0 Note Initiated On: 06/05/2022 6:06 AM
--- NOTE | 2022-06-05 07:09 | OP.CCLET_ITS ---
06/05/2022 Jared Cavazos MD Re : Colonoscopy procedure for Christiano Campbell Dear Dr. Cavazos This procedure was performed on Sunday, June 05, 2022. My impressions and recommendations are as follows: Impressions : - Anal stricture found on digital rectal exam. - The entire examined colon is normal. - Stricture at the anus. Dilated. - No specimens collected. Recommendations : - Discharge patient to home. - Resume previous diet. - Continue present medications. - Repeat colonoscopy. My findings are described in the full procedure note, which is enclosed. If I can be of further assistance, please feel free to contact me at . Sincerely, Danny Mathew, 06/05/2022 7:08:16 AM This report has been signed electronically.
== END 2022-06-05 07:52 | disposition home or self-care (01) ==
LOC: EN 05:28 → AC 05:30
PROVIDERS: PCP Family Medicine; Referring Provider Internal Medicine Gastroenterology; Visit Provider Internal Medicine Gastroenterology
PROC: 0DJD8ZZ Inspection of Lower Intestinal Tract, Via Natural or Artificial Opening Endoscopic (ICD-10-PCS; CPT 45378; principal; 2022-06-05 06:25)
DX: K52.9 Noninfective gastroenteritis and colitis, unspecified (principal); Z87.891 Personal history of nicotine dependence; K62.4 Stenosis of anus and rectum; K44.9 Diaphragmatic hernia without obstruction or gangrene; K21.00 Gastro-esophageal reflux disease with esophagitis, without bleeding
CPT/HCPCS: 45378; J7120; C1769; J2405

== ENCOUNTER 2022-08-31 11:47 | Observation (INO) | payer MEDICARE, OTHER, SELFPAY ==
[2022-08-31] VITALS (7 sets, daily range): BP systolic 126–158; BP diastolic 69–82; PULSE 48–58; RESP 14–18; TEMP 36.1–36.7; O2SAT 96–100; BMI 24.2; BMI 23.8
--- NOTE | 2022-08-31 12:08 | CT_ITS ---
INDICATION: Neuro deficit, acute, stroke suspected STUDY: CT BRAIN WITHOUT CONTRAST REASON FOR EXAM: Male, 81 years old. Neuro deficit, acute, stroke suspected RADIATION DOSAGE (If Supplied By Facility): CTDIvol = ( ) mGy, DLP = ( ) mGycm TECHNIQUE: Transaxial CT imaging of the brain was performed without administration of intravenous contrast material. COMPARISON: Noncontrast CT brain July 08, 2015 FINDINGS: Normal soft tissue structures. Normal calvarium. There are calcifications of the bilateral cavernous carotid artery segments. There is mild cerebral atrophy with widening of the extra-axial spaces and ventricular dilatation. There are areas of decreased attenuation within the white matter tracts of the supratentorial brain, consistent with microvascular disease changes. Normal basal ganglia and thalami. Normal brainstem. There is borderline cerebellar atrophy. There is no intracranial hemorrhage. There are no findings of an acute ischemic infarction. Normal visualized paranasal sinuses. CT/STROKE Brain/Head without Cont IMPRESSION: Chronic involutional changes of the brain, as noted. There are no acute findings. N.B. : The above Results were Read Back by Mikey Milton MD to Israel Rojas MD, and understanding confirmed on 08/31/2022 12:57:58 (ET). Electronically Signed: Mikey Milton MD at 12:59 EDT Reading Location ID and State: [id number] / Unknown , Service support ,
--- NOTE | 2022-08-31 12:09 | CT_ITS ---
INDICATION: Neuro deficit, acute, stroke suspected EXAMINATION: CT BRAIN WITH CONTRAST TECHNIQUE: Noncontrast axial images were obtained of the brain. Subsequently, routine carotid CT angiogram protocol was performed without and with IV contrast. In addition, images were obtained of the [place]. NASCET criteria using the distal ICAs for comparison were used for evaluation of stenoses. 3D reconstructions were reviewed. A radiation dose optimization technique was used for this scan. IV Contrast dosage and agent: 100 ML ISOVUE 370 COMPARISON: Noncontrast CT brain July 08, 2015 FINDINGS: --CT BRAIN: BRAIN PARENCHYMA: No intra- or extra-axial hemorrhage. No evidence of acute infarct. No intracranial mass or mass effect. There is stable mild, age-appropriate atrophy. There is preservation of the steele/white matter interface. Borderline cerebellar atrophy. CSF SPACES: Appropriate for age. No hydrocephalus. Basal cisterns are patent. CALVARIUM, SKULL BASE, PARANASAL SINUSES AND MASTOID AIR CELLS: Clear. No discrete lytic or blastic abnormalities. ASPECTS Score for Acute Strokes: 10 --CTA NECK: AORTIC ARCH AND BRANCHES: Normal anatomy, patent. RIGHT CCA: At its takeoff, and in the first few centimeters of the vessel, the right common carotid artery is notably tortuous with 2 sites of kinking producing 80+% narrowing at each site (series 605 image 127, series 606 image 115). It is uncertain if these are overtly flow limiting, however. No other occlusion, significant stenosis or dissection. RIGHT ICA: Mild, eccentric posteromedial calcific plaquing of the vessel takeoff without significant stenosis. No dissection. LEFT CCA: No occlusion, significant stenosis or dissection. LEFT ICA: Mild calcific plaquing at the vessel takeoff without significant stenosis. No dissection. RIGHT VERTEBRAL ARTERY: No occlusion, significant stenosis or dissection. LEFT VERTEBRAL ARTERY: No occlusion, significant stenosis or dissection. NECK: The soft tissues are unremarkable. There are multilevel. --CTA HEAD: --Anterior circulation: ICAs: Moderate atherosclerotic calcific plaquing in the cavernous segments. No significant stenosis at the intracranial/visualized segments. ACAs: No significant stenosis at the visualized segments. ACOM: Present. MCAs: No significant stenosis at the visualized segments. --Posterior circulation: PCOMs: Very small caliber, but patent on the right. 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 BASILAR ARTERY: No significant stenosis. VERTEBRAL ARTERIES: No significant stenosis at the intradural/visualized segments. No evidence of intracranial aneurysm or vascular malformation. CT/STROKE CTA Head AND Neck W/Con IMPRESSION: 1. Prominent kinking at the takeoff and first few centimeters of the right common carotid artery. This is of uncertain hemodynamic significance and highly unlikely to account for any acute symptoms. 2. Mild calcific atherosclerotic plaquing at the takeoffs of the bilateral internal carotid arteries without significant stenosis. 3. Additional atherosclerotic plaquing without significant stenosis noted in the cavernous segments of the bilateral internal carotid arteries. 4. No other occlusive lesion seen in the anterior circulation. 5. 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 The posterior circulation is otherwise widely patent. N.B. : The above Results were Read Back by Mikey Milton MD to Israel Rojas MD, and understanding confirmed on 08/31/2022 13:06:45 (ET). Electronically Signed: Mikey Milton MD at 13:13 EDT Reading Location ID and State: [id number] / Unknown , Service support ,
--- NOTE | 2022-08-31 12:10 | EDS_ITS ---
HPI History of Present Illness Chief Complaint: Dizziness Detail of Chief Complaint: Off balance and difficulty walking since Wednesday. Informant: patient Onset/Context/Timing Onset: Yesterday Context: - (Awoke with the symptoms. Was fine Wednesday night prior to going to bed.) Timing: Continuous Quality and Location: Positive for Difficulty with Ambulation; Negative for R ight Facial Droop, Left Facial Droop, Right Face Paresthesia, Left Face Parasthesia, Right Arm Parasthesia, Left Arm Parasthesia, Right Leg Parasthesia, Left Leg Parasthesia, Left Arm Weakness, Right Leg Weakness, Left Leg Weakness, Slurred Speech, Expressive Aphasia or Receptive Aphasia Onset: Wednesday after waking up. Current Severity: Mild Maximum Severity: Mild Associated Symptoms Associated Symptoms: Negative for Headache, Nausea, Vomiting or Chest Pain Narrative Narrative: 81 year old male history of anemia prior AAA repair, lymphoma and known carotid stenosis around 50% diagnosed several years ago. States he been feeling fine. On Wednesday he went to a graduation green party. When he woke up Wednesday he said he was feeling fine he went to get out of bed stumbled and fell. He said since that time he is having trouble walking. Says he is off balance. He denies any headache. He denies any room spinning or vertigo symptoms. No prior history of vertigo. No prior history of stroke or mini stroke. He denies any recent illness. Denies any trouble speaking, change in his vision or weakness to his upper or lower extremities. Prior similar symptoms: No Recent Illness/Hospitalization: No [facility] Medical History AAA (abdominal aortic aneurysm) without rupture Anemia Arthritis Back pain Basal cell carcinoma (BCC) in situ of skin Blood disorder Cancer Cardiology follow-up encounter Difficulty swallowing Fatigue Former smoker Gout High cholesterol History of echocardiogram History of hiatal hernia History of IBS History of stress test Hyperlipidemia Intractable low back pain Leg cramps Lumbosacral strain Lymphoma Palpitations Pure hypercholesterolemia Shortness of breath Sinus bradycardia Wears glasses Home Medications aspirin 81 mg chewable tablet 81 mg PO PRN PRN Headache 02/21/16 [History Last Taken 03/18/22] rosuvastatin 20 mg tablet 20 mg PO DAILY #90 tabs 06/18/20 [Rx Last Taken 03/20/22] omeprazole 20 mg capsule,delayed release 40 mg PO PRN PRN Indigestion 01/15/22 [History Last Taken 03/20/22] doxycycline hyclate 100 mg capsule 100 mg PO BID #14 caps 06/16/22 [Rx Last Taken Unknown] Allergy/AdvReac Type Severity Reaction Status Date / Time No Known Allergies Allergy Verified 08/31/22 11:48 Family History Father Colon cancer Mother Alzheimers disease Brother Multiple sclerosis Surgical History aorto bi-common iliac stent graft (~11/2014) History of AAA (abdominal aortic aneurysm) repair History of cardiac catheterization History of cholecystectomy History of colonoscopy (~11/2021) History of esophagogastroduodenoscopy (EGD) (~11/2021) Status post laparoscopic Luis fundoplication Social History Smoking Status: Former smoker how long ago did patient quit smokin alcohol intake: current alcohol intake frequency: a few times a week Alcohol type: wine and hard liquor substance use type: does not use caffeine: Yes Type: coffee what type of physical activity do you participate in: none seatbelt use: always do you feel safe at home: Yes ROS ROS ED ROS Narrative Denies recent illness. Review of Systems ROS Unobtainable: Denies due to encephalopathy Constitutional Constitutional ED: Denies chills or fever(s) Eyes Eyes: Denies blurry vision ENT ENT ED: Denies ear pain Cardiovascular Cardiovascular: Denies chest pain Respiratory/Chest Respiratory/Chest: Denies cough or dyspnea Gastrointestinal Gastrointestinal: Denies abdominal pain Genitourinary Genitourinary ED: Denies dysuria or hematuria Musculoskeletal Musculoskeletal: Denies arthralgias or back pain Integumentary Denies abscess Neurologic Neurologic: Denies headache(s), paresthesias or weakness Psychiatric Psychiatric: Denies anxiety Endocrine Endocrinology: Denies polydipsia Hematologic/Lymphatic Hematologic/Lymphatic: Denies easy bleeding or easy bruising Allergic/Immunologic Allergic/Immunologic ED: Denies mouth swelling or urticaria EXAM Physical Exam Narrative Exam Narrative: 81-year-old male no acute distress. Sitting upright in bed. Vital signs stable afebrile. He is bradycardic. However his blood pressure is 140/69. No one else present in the room. H EENT exam normal. Pupils round reactive light. Extra motions intact. Normal speech. No facial droop. Neck nontender. Lungs are clear. Heart regular rhythm. Rate in the 50s. Bradycardic. No murmur. Chest wall nontender. Back nontender. Abdomen soft nontender. No peritoneal signs. Moving all 4 extremities. 5 out of 5 call taker strength bilaterally. Dorsi plantarflexion intact. Neurologically he is awake and alert. Answering questions following commands. While sitting in bed he has no neurological findings. He is awake. He is alert. He is answering questions. He has normal speech. Extraocular motions are intact. No facial droop. Normal call taker strength both hands equal and symmetrical. Normal dorsi plantarflexion. Normal fingertip to nose. Normal [id number]. Negative Hallpike. Const Vital Signs: 08/31/22 11:48 08/31/22 11:57 08/31/22 12:12 Temperature 98.1 F Temperature Source Temporal Pulse Rate 55 L Respiratory Rate 14 Respiratory Effort Normal Non-Labored Respiratory Pattern Normal Blood Pressure 140/69 H Blood Pressure Mean 92 Pulse Ox 98 Oxygen Delivery Method Room Air Room Air 08/31/22 12:51 Temperature Temperature Source Pulse Rate 52 L Respiratory Rate 16 Respiratory Effort Respiratory Pattern Blood Pressure 138/82 H Blood Pressure Mean 100 Pulse Ox 97 Oxygen Delivery Method Room Air Positive well nourished and well developed; Negative for obese, cachectic, contractures or unkempt Constitutional Narrative: Ear exams are unremarkable. TMs are normal. No wax. Canals are normal. General Appearance ED: well developed and NAD; Negative for unkempt, cachectic o r contractures Nutritional Appearance: Negative for cachectic or obese HEENT Reports TM's clear and moist mucous membranes; Denies dry mucous membranes Negative for atraumatic or trauma Nose: Negative for other Tympanic Membrane ED: Yes TM's clear Mouth ED: No dry mucous membranes Mouth: No dry mucous membranes Eyes PERRL and EOMs intact bilaterally General Eye ED: Negative for pale conjunctiva or scleral icterus Neck no lymphadenopathy, supple and no JVD General: Negative for tenderness Thyroid: Negative for other Chest Wall inspection of chest normal and palpation of chest normal Chest: Negative for other Resp normal respiratory effort and clear to auscultation bilaterally Effort and Inspection: Negative for retractions Auscultation: Negative for rales, rhonchi or wheezes Cardio no murmurs Rate: bradycardia; Negative for regular rate Rhythm: regular rhythm GI normal to inspection, nondistended, normoactive bowel sounds, soft to palpation, non-tender, non-distended and no masses Inspection: Negative for abdominal distention Auscultation: normoactive bowel sounds Palpation: Negative for tender or guarding Bladder / Kidney Exam: No other Back/Spine no CVA tenderness General Back: Negative for CVA tenderness Cervical Spine: Negative for cervical spine tenderness Thoracic Spine / Upper Back: Negative for thoracic spinal tenderness Lumbar Spine / Lower Back: Negative for lumbar spinal tenderness Extremity normal to inspection General Extremety ED: Negative for deformity, edema or tenderness General Extremity: Negative for deformity or edema Neuro oriented x3, CN's II-XII intact bilaterally and no sensory deficits noted Sensorium / Orientation: alert, oriented to person, oriented to place and oriented to time; Negative for orientation impaired, confused, lethargic or stuporous Motor Exam: strength 5/5 throughout Psych mental status grossly normal Appearance: Negative for unkempt Attitude: No agitated Mood & Affect: Negative for depressed, anxious or tearful Attention / Concentration: Negative for other Skin no wounds General Skin Exam: Negative for jaundice Lesions: no lesions Rashes: no rashes Trauma: Negative for abrasion or laceration NIHSS NIHSS Initial: 1a Level of Consciousness: 0 1b LOC Questions (Score 2 if aphasic/stupor): 0 1c LOC Commands (Only score 1st attempt): 0 2 Best Gaze (If aphasic, use reflexive mvmts.): 0 3 Visual: 0 4 Facial Palsy: 0 5 Motor Arm Right (UN = amputation/fusion): 0 5 Motor Arm Left: 0 6 Motor Leg Right: 0 6 Motor Leg Left: 0 7 Limb ataxia (Only + if out of proportion): 0 8 Sensory (Aphasia/stupor=0 or 1, coma=2): 0 9 Best Language: 0 10 Dysarthria (mute, coma=2, intubated=UN): 0 11 Extinction and Inattention (only scored if +): 0 Total Score: 0 MDM MDM MDM Narrative Medical decision making narrative: 81-year-old male was fine on Saturday woke up on Wednesday and had difficulty walking with loss of balance. My concern is a possible stroke. His NIH Embeda is normal. 0. We have not attempted a walking yet. Be placed through the stroke protocol. I will get a CTA of his head neck. He does not meet criteria due to the timing for tPA. Repeat exam at 1:56 PM patient doing well. His exam is unchanged I did get him up to walk him and he also walked to the bathroom he definitely has an abnormal gait. He has to really concentrate on walking he walks slow and deliberately and times falls off to the left. He is able to ambulate however. I will speak to the hospitalist about admission and further testing for possible stroke. I suspect this patient will need an MRI. I discussed all this with the patient is comfortable with the plan. History & Record Review Discussion w/independent historian: Patient Additional record(s) reviewed:: Prior inpatient record, Prior outpatient record, Prior ED visit and Prior labs Lab Data Attestation: I reviewed the patient's lab results. Lab results narrative: CBC is unremarkable. White count of 5.6. H&H 14 and 41. Platelets of 150. PT/INR of 12 and 1. Electrolytes unremarkable gap of 3. Normal BUN and creatinine. Glucose 102. Troponin 5. CAT scan and CTA of the head neck showed chronic changes no acute process. No acute bleed or stroke. Discussed with the radiologist. Labs: Laboratory Results - last 24 hr 08/31/22 12:00 WBC 5.6 RBC 4.30 L Hgb 14.2 Hct 41.5 MCV 96.5 H MCH 33.0 H MCHC 34.2 RDW Std Deviation 44.3 H RDW Coeff of Alvarez 12.5 Plt Count 150 MPV 10.1 Immature Gran % (Auto) 0.500 Neut % (Auto) 65.0 Lymph % (Auto) 21.0 [place] % (Auto) 9.8 Eos % (Auto) 3.2 Baso % (Auto) 0.5 Absolute Neuts (auto) 3.7 Absolute Lymphs (auto) 1.18 Nucleated RBC % 0 PT 12.8 INR 1.0 APTT 29.2 Sodium 136 Potassium 3.9 Chloride 104 Carbon Dioxide 29.0 Anion Gap 3 L BUN 14 Creatinine 1.17 Estim Creat Clear Calc 54.35 Est GFR (MDRD) Af Amer 77 Est GFR (MDRD) Non-Af 64 BUN/Creatinine Ratio 12.0 Glucose 102 Calcium 9.1 Troponin I High Sens 5 Radiography Diagnostic Testing: Clinical Impression(s) from Imaging Studies Brain CT 08/31/22 12:08 IMPRESSION: Chronic involutional changes of the brain, as noted. There are no acute findings. N.B. : The above Results were Read Back by Mikey Milton MD to Israel Rojas MD, and understanding confirmed on 08/31/2022 12:57:58 (ET). Electronically Signed: Mikey Milton MD at 12:59 EDT Reading Location ID and State: [id number] / Unknown , Service support , ADDENDUM: 08/31/22 1306 IMPRESSION: Chronic involutional changes of the brain, as noted. There are no acute findings. N.B. : The above Results were Read Back by Mikey Milton MD to Israel Rojas MD, and understanding confirmed on 08/31/2022 12:57:58 (ET). Electronically Signed: Mikey Milton MD at 12:59 EDT Reading Location ID and State: [id number] / Unknown , Service support , Head/Neck CTA 08/31/22 12:09 IMPRESSION: 1. Prominent kinking at the takeoff and first few centimeters of the right common carotid artery. This is of uncertain hemodynamic significance and highly unlikely to account for any acute symptoms. 2. Mild calcific atherosclerotic plaquing at the takeoffs of the bilateral internal carotid arteries without significant stenosis. 3. Additional atherosclerotic plaquing without significant stenosis noted in the cavernous segments of the bilateral internal carotid arteries. 4. No other occlusive lesion seen in the anterior circulation. 5. 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 The posterior circulation is otherwise widely patent. N.B. : The above Results were Read Back by Mikey Milton MD to Israel Rojas MD, and understanding confirmed on 08/31/2022 13:06:45 (ET). Electronically Signed: Mikey Milton MD at 13:13 EDT Reading Location ID and State: [id number] / Unknown , Service support , ADDENDUM: 08/31/22 1319 IMPRESSION: 1. Prominent kinking at the takeoff and first few centimeters of the right common carotid artery. This is of uncertain hemodynamic significance and highly unlikely to account for any acute symptoms. 2. Mild calcific atherosclerotic plaquing at the takeoffs of the bilateral internal carotid arteries without significant stenosis. 3. Additional atherosclerotic plaquing without significant stenosis noted in the cavernous segments of the bilateral internal carotid arteries. 4. No other occlusive lesion seen in the anterior circulation. 5. 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 The posterior circulation is otherwise widely patent. N.B. : The above Results were Read Back by Mikey Milton MD to Israel Rojas MD, and understanding confirmed on 08/31/2022 13:06:45 (ET). Electronically Signed: Mikey Milton MD at 13:13 EDT Reading Location ID and State: [id number] / Unknown , Service support , Rhythm Strip Rhythm Strip: Sinus bradycardia Rate: 53 Ectopy: None EKG Initial EKG: Attestation: I personally reviewed and interpreted this EKG as follows: Interpretation: Sinus Rhythm and Sinus Bradycardia Comments: Sinus bradycardia rate of 53 no acute signs of CO, ischemia or dysrhythmia otherwise. Discharge Plan Triage Chief Complaint: Dizziness ED Provider: Israel Rojas Dx/Rx/DC Orders Clinical Impression: Ataxia, History of carotid stenosis Prescriptions: No Action omeprazole 20 mg capsule,delayed release(DR/EC) 40 mg PO PRN PRN (Reason: Indigestion) doxycycline hyclate 100 mg capsule 100 mg PO BID Qty: 14 0RF aspirin 81 MG tablet,chewable 81 mg PO PRN PRN (Reason: Headache) rosuvastatin 20 mg tablet 20 mg PO DAILY Qty: 90 3RF Primary Care Provider: Jared Cavazos Referrals: Jared Cavazos MD [Primary Care Provider] - Disposition Disposition: Acute Care Hospital [facility]
--- NOTE | 2022-08-31 12:19 | ED.RN ---
Per ED NIHSS discontinued
[2022-08-31 12:22] LABS: Absolute Lymphocyte Count 1.18 X10^3/uL (0.83-4.51); Absolute Neutrophil Count 3.7 X10^3/uL (2.0-7.7); Basophil# 0.03 X10^3/uL; Basophil% 0.5 % (0-1); Eosinophil# 0.18 X10^3/uL; Eosinophils% 3.2 % (0-5); Hematocrit 41.5 % (40-54); Hemoglobin 14.2 g/dL (13.0-16.5); Lymphocyte # 1.18 X10^3/ul (0.83-4.51); Mean Corp Hgb Conc 34.2 g/dL (32-36); Mean Corpuscular Volume 96.5 fL (80-94); Mean Platelet Vol. 10.1 fl (6.2-12.0); Monocyte# 0.55 X10^3/uL; Monocyte% 9.8 % (0-10); NRBC Flagged by Analyzer 0 % (0-5); Neutrophil # 3.66 X10^3/uL (2.7-7.7); Platelet Count 150 K/mm3 (150-450); RBC Distribution Width CV 12.5 % (11.6-14.6); RBC Distribution Width SD 44.3 fl (35.1-43.9); White Blood Count 5.6 K/mm3 (4.4-11.0)
[2022-08-31 12:28] LABS: Prothrombin Time (Protime)PT. 12.8 SECONDS (11.7-14.9)
[2022-08-31 12:29] LABS: Partial Thromboplast Time 29.2 Seconds (24.1-36.2)
[2022-08-31 12:42] LABS: Anion Gap 3 (5-15); BUN 14 mg/dL (7-18); Calcium,Total 9.1 mg/dL (8.5-10.1); Chloride 104 mmol/L (98-107); Creatinine, Serum 1.17 mg/dL (0.70-1.30); EST Glomerular Filtration Rate 64 mL/min (>60); Est Glom Filt Rate - Afr Amer 77 mL/min (>60); Estimated Creatinine Clearance 54.35 ml/min; Glucose 102 mg/dL (74-106); Potassium 3.9 mmol/L (3.5-5.1); Sodium Level 136 mmol/L (136-145); Troponin-I HS 5 pg/mL (3.0-78.0)
--- NOTE | 2022-08-31 14:43 | HP.PCM.HOS_ITS ---
HPI - General General Date of Admission: 08/31/22 Date of Service: 08/31/22 Chief Complaint: lightheadedness HPI Narrative ADARSH SORENSEN, is a 81 M who presents with feeling of lightheadedness. Symptoms began on the . He went to graduation constitution party on the and thought that he might be dehydrated so was drinking plenty of fluids. Throughout the day yesterday, patient had initially fallen forward because he was lightheaded but was wobbling when he would walk. Patient has never experienced anything like this before. He denies any sensation of the room spinning. He has never had anything like this before. Patient presented to the emergency room and underwent a work-up. CTA showed kinking takeoff of the right common carotid ar bryan. But no other acute process. [facility] Medical History AAA (abdominal aortic aneurysm) without rupture Anemia Arthritis Back pain Basal cell carcinoma (BCC) in situ of skin Blood disorder Cancer Cardiology follow-up encounter Difficulty swallowing Fatigue Former smoker Gout High cholesterol History of echocardiogram History of hiatal hernia History of IBS History of stress test Hyperlipidemia Intractable low back pain Leg cramps Lumbosacral strain Lymphoma Palpitations Pure hypercholesterolemia Shortness of breath Sinus bradycardia Wears glasses Home Medications aspirin 81 mg chewable tablet 81 mg PO DAILY HEART HEALTH 02/21/16 [History Last Taken 03/18/22] omeprazole 20 mg capsule,delayed release 40 mg PO DAILY ACID REFLUX 01/15/22 [History Last Taken 08/30/22] peg [id number] 1 %-0.2 %-0.2 % eye drops (Dry Eye Relief) 1 drp EACH EYE DAILY DRY EYE RELIEF 08/31/22 [History Last Taken 08/30/22] rosuvastatin 20 mg tablet 20 mg PO QHS CHOLESTEROL 08/31/22 [History Last Taken 08/29/22] Allergy/AdvReac Type Severity Reaction Status Date / Time No Known Allergies Allergy Verified 08/31/22 11:48 Family History Father Colon cancer Mother Alzheimers disease Brother Multiple sclerosis Surgical History aorto bi-common iliac stent graft (~11/2014) History of AAA (abdominal aortic aneurysm) repair History of cardiac catheterization History of cholecystectomy History of colonoscopy (~11/2021) History of esophagogastroduodenoscopy (EGD) (~11/2021) Status post laparoscopic Luis fundoplication Social History Smoking Status: Former smoker how long ago did patient quit smokin alcohol intake: current alcohol intake frequency: a few times a week Alcohol type: wine and hard liquor substance use type: does not use caffeine: Yes Type: coffee what type of physical activity do you participate in: none seatbelt use: always do you feel safe at home: Yes Vital Signs Vital Signs Vital Signs: 08/31/22 11:48 08/31/22 11:57 08/31/22 12:12 Temperature 36.7 C Temperature Source Temporal Pulse Rate 55 L Respiratory Rate 14 Respiratory Effort Normal Non-Labored Respiratory Pattern Normal Blood Pressure 140/69 H Blood Pressure Mean 92 Pulse Ox 98 Oxygen Delivery Method Room Air Room Air 08/31/22 12:51 08/31/22 14:20 Temperature 36.6 C Temperature Source Temporal Pulse Rate 52 L 58 L Respiratory Rate 16 17 Respiratory Effort Respiratory Pattern Blood Pressure 138/82 H 154/71 H Blood Pressure Mean 100 98 Pulse Ox 97 96 Oxygen Delivery Method Room Air Room Air Weight Weight: 80.9 kg Body Mass Index (BMI) 24.2 Physical Exam Const alert, oriented x3 and no apparent distress HEENT normocephalic and head/scalp atraumatic Eyes EOMs intact bilaterally Eyes Narrative: No nystagmus appreciated. Neck no lymphadenopathy Neck Narrative: No thyromegaly Resp normal respiratory effort, no retractions, no use of accessory muscles and clear to auscultation bilaterally Cardio regular rate, regular rhythm, S1 normal heart sound and S2 normal heart sound GI normal to inspection, nondistended, normoactive bowel sounds, soft to palpation, non-tender, non-distended and hepatosplenomegaly Extremity normal to inspection and full ROM Skin Skin Narrative: No rashes or sores Neuro oriented x3, CN's II-XII intact bilaterally, moves all extremities and no focal motor deficits Neuro Narrative: Lakeisha-Hallpike performed and is negative bilaterally. Sensorium / Orientation: awake and alert Coordination / Balance: [id number] test normal and [id number] test normal Speech: speech normal Psych affect normal Results Lab / Micro Data Attestation: I reviewed the patient's lab results. 08/31/22 12:00 08/31/22 12:00 Labs: Laboratory Results - last 24 hr 08/31/22 12:00: WBC 5.6, RBC 4.30 L, Hgb 14.2, Hct 41.5, MCV 96.5 H, MCH 33.0 H, MCHC 34.2, RDW Std Deviation 44.3 H, RDW Coeff of Alvarez 12.5, Plt Count 150, MPV 10.1, Immature Gran % (Auto) 0.500, Neut % (Auto) 65.0, Lymph % (Auto) 21.0, [place] % (Auto) 9.8, Eos % (Auto) 3.2, Baso % (Auto) 0.5, Absolute Neuts (auto) 3.7, Absolute Lymphs (auto) 1.18, Nucleated RBC % 0, PT 12.8, INR 1.0, APTT 29.2, Sodium 136, Potassium 3.9, Chloride 104, Carbon Dioxide 29.0, Anion Gap 3 L, BUN 14, Creatinine 1.17, Estim Creat Clear Calc 54.35, Est GFR (MDRD) Af Amer 77, Est GFR (MDRD) Non-Af 64, BUN/Creatinine Ratio 12.0, Glucose 102, Calcium 9.1, Troponin I High Sens 5 Rhythm Strip Rhythm Strip: Sinus bradycardia Rate: 53 Ectopy: None EKG Initial EKG: Attestation: I personally reviewed and interpreted this EKG as follows: EKG Rhythm Intrepretation: Sinus Bradycardia Radiology Impression Brain CT 08/31/22 12:08 IMPRESSION: Chronic involutional changes of the brain, as noted. There are no acute findings. N.B. : The above Results were Read Back by Mikey Milton MD to Israel Rojas MD, and understanding confirmed on 08/31/2022 12:57:58 (ET). Electronically Signed: Mikey Milton MD at 12:59 EDT Reading Location ID and State: [id number] / Unknown , Service support , ADDENDUM: 08/31/22 1306 IMPRESSION: Chronic involutional changes of the brain, as noted. There are no acute findings. N.B. : The above Results were Read Back by Mikey Milton MD to Israel Rojas MD, and understanding confirmed on 08/31/2022 12:57:58 (ET). Electronically Signed: Mikey Milton MD at 12:59 EDT Reading Location ID and State: [id number] / Unknown , Service support , Head/Neck CTA 08/31/22 12:09 IMPRESSION: 1. Prominent kinking at the takeoff and first few centimeters of the right common carotid artery. This is of uncertain hemodynamic significance and highly unlikely to account for any acute symptoms. 2. Mild calcific atherosclerotic plaquing at the takeoffs of the bilateral internal carotid arteries without significant stenosis. 3. Additional atherosclerotic plaquing without significant stenosis noted in the cavernous segments of the bilateral internal carotid arteries. 4. No other occlusive lesion seen in the anterior circulation. 5. 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 The posterior circulation is otherwise widely patent. N.B. : The above Results were Read Back by Mikey Milton MD to Israel Rojas MD, and understanding confirmed on 08/31/2022 13:06:45 (ET). Electronically Signed: Mikey Milton MD at 13:13 EDT Reading Location ID and State: [id number] / Unknown , Service support , ADDENDUM: 08/31/22 1319 IMPRESSION: 1. Prominent kinking at the takeoff and first few centimeters of the right common carotid artery. This is of uncertain hemodynamic significance and highly unlikely to account for any acute symptoms. 2. Mild calcific atherosclerotic plaquing at the takeoffs of the bilateral internal carotid arteries without significant stenosis. 3. Additional atherosclerotic plaquing without significant stenosis noted in the cavernous segments of the bilateral internal carotid arteries. 4. No other occlusive lesion seen in the anterior circulation. 5. 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 The posterior circulation is otherwise widely patent. N.B. : The above Results were Read Back by Mikey Milton MD to Israel Rojas MD, and understanding confirmed on 08/31/2022 13:06:45 (ET). Electronically Signed: Mikey Milton MD at 13:13 EDT Reading Location ID and State: [id number] / Unknown , Service support , Assessment & Plan Assessment/Plan (1) Ataxia: PLAN: Patient with unsteadiness when he walks. Evaluation for benign paroxysmal positional vertigo was negative with negative lateral gaze for nystagmus and a negative Lakeisha-Hallpike bilaterally. Orthostatic vitals have been ordered. Concern is for possible stroke. Patient undergo stroke work-up with an MRI of the brain, 2D echocardiogram, therapy evaluation. (2) History of carotid stenosis: PLAN: Noted kinking of the right common carotid on CTA. We will check duplex. PLAN: Plan Chronic condition * Abdominal aortic aneurysm * Anemia: Stable * Lymphoma: In remission. * Hyperlipidemia: Continue statin VTE prophylaxis: Low risk given current observation status. Charges/Coding Visit Charges Inpatient E&M: 59846 Init Hosp L3
--- NOTE | 2022-08-31 16:06 | CDU_ITS ---
Reason For Study: Right carotid kinking on CT Rt. Velocities/BP Lt. Velocities/BP Origin Right CCA 170.4/22.5 cm/s. Prox CCA 8.6/15.7 cm/sec. Prox CCA 112/13.3 cm/sec. Mid CCA 93.8/19.0 cm/sec. Mid CCA 98.6/16.3 cm/sec. Dist CCA 92.7/14.6 cm/sec. Dist CCA 64.2/10.2 cm/sec. Prox ICA 74.0/12.4 cm/sec. Prox ICA 58.6/11.3 cm/sec. Mid ICA 88.3/23.4 cm/sec. Mid ICA 67.4/17.9 cm/sec. Dist ICA 92.7/27.8 cm/sec. Dist ICA 101.4/25.6 cm/sec. Lt. ICA/CCA = 1.0. Rt. ICA/CCA = 1.0. Prox ECA 85.0/8.0 cm/sec. Prox ECA 77.7/6.5 cm/sec. Lt. Vert. 50.9/11.3 cm/sec. Rt. Vert. 42.1/11.3 cm/sec. Right Extracranial There is intimal thickening but no significant atherosclerotic plaque noted in the right common carotid artery. There is heterogeneous, irregular atherosclerotic plaque noted in the right internal carotid artery. There is intimal thickening but no significant atherosclerotic plaque noted in the right external carotid artery. Antegrade flow is noted in the right vertebral artery. Left Extracranial There is intimal thickening but no significant atherosclerotic plaque noted in the left common carotid artery. There is heterogeneous, irregular atherosclerotic plaque noted in the left internal carotid artery. There is intimal thickening but no significant atherosclerotic plaque noted in the left external carotid artery. Antegrade flow is noted in the left vertebral artery. Procedure Carotid Duplex 18632. This is a Carotid Duplex examination using B-mode, color flow and specral Doppler. The exam was diagnostic. Exam performed portable in patient room. VL/Carotid Duplex Ultrasound Interpretation Summary Mild (<50%) stenosis right extracranial internal carotid. Tortuous right common carotid artery. Mild (<50%) stenosis left extracranial internal carotid. Patent and antegrade vertebrals bilaterally. Ordering Physician: Audi Esqueda Performed By: Azar Mcbride RVT
--- NOTE | 2022-08-31 16:06 | ECHOCS_ITS ---
Reason For Study: TIA/CVA Procedure This was a 2D Doppler, Color Flow transthoracic echocardiogram. The study was technically difficult. Contrast injection was performed. Exam performed portable in patient room. Left Ventricle Normal size and thickness. The left ventricular ejection fraction is 65 %. Normal diastology for age. Right Ventricle Normal right ventricle. Atria The left and right atria are normal. Bubble contrast study is negative for PFO/ASD. Mitral Valve Trivial mitral valve insufficiency. Tricuspid Valve Normal tricuspid valve. Aortic Valve Normal aortic valve. Pulmonic Valve The pulmonic valve is not well visualized. Great Vessels Normal sized aortic root. Pericardium/Pleural No pericardial effusion. Medication Diluted definity 2ml given slow IV push to enhance endocardial definition. Performed a rapid injection of agitated mix of 9 cc saline and 1cc air to assess for atrial septal defect. MMode/2D Measurements & Calculations LVIDd: 4.5 cm IVSd: 0.79 cm Ao root diam: 3.3 cm LVIDs: 3.0 cm LVPWd: 0.99 cm LA dimension: 2.7 cm FS: 33.5 % LAV(MOD-bp): 43.0 ml LVAd ap4: 36.9 cm2 SV(MOD-sp4): 85.0 ml LAV(MOD-bp) Indexed: 21.3 ml/m2 LVLd ap4: 8.7 cm LAV(MOD-sp2): 45.0 ml EDV(MOD-sp4): 131.3 ml LAV(MOD-sp4): 34.0 ml EDV(sp4-el): 133.0 ml LVAs ap4: 19.9 cm2 LVLs ap4: 7.3 cm ESV(MOD-sp4): 46.3 ml ESV(sp4-el): 46.5 ml EF(MOD-sp4): 64.7 % EF(sp4-el): 65.0 % SV(sp4-el): 86.4 ml LA A4 area: 16.7 cm2 RA A4 area: 11.1 cm2 TAPSE: 1.4 cm Time Measurements MV dec time: 0.28 sec Doppler Measurements & Calculations MV E max pnueet: 73.7 cm/sec Lat Peak E' Puneet: 9.7 cm/sec Med Peak E' Puneet: 8.3 cm/sec MV A max pnueet: 95.7 cm/sec E/E' lat: 7.6 E/E' med: 8.9 MV E/A: 0.77 MV V2 max: 104.1 cm/sec MV P1/2t max upneet: 96.9 cm/sec Ao V2 max: 138.2 cm/sec MV max P.3 mmHg MV P1/2t: 101.4 msec Ao max P.7 mmHg MV V2 mean: 50.9 cm/sec Ao V2 mean: 89.7 cm/sec MV mean P.3 mmHg MV dec slope: 280.0 cm/sec2 Ao mean P.8 mmHg MV V2 VTI: 42.0 cm MVA(P1/2t): 2.2 cm2 Ao V2 VTI: 33.2 cm AV (velocity ratio): 0.80 LV V1 max: 104.5 cm/sec PA V2 max: 88.8 cm/sec TR max puneet: 183.5 cm/sec LV V1 max P.4 mmHg TR max P.5 mmHg LV V1 mean P.4 mmHg LV V1 mean: 71.6 cm/sec LV V1 VTI: 26.5 cm ECHO/Echo Complete W/ Contrast Interpretation Summary The left ventricular ejection fraction is 65 %. Ordering Physician: Audi Esqueda Performed By: Ke Plunkett RCS
[2022-08-31 16:12] LABS: Troponin-I HS 7 pg/mL (3.0-78.0)
[2022-08-31] MEDS: Atorvastatin Calcium 40 MG Tablet PO (22:17)
[2022-09-01 01:08] VITALS: BMI 24.2
[2022-09-01 02:00] VITALS: BP 148/80; PULSE 52; RESP 16; TEMP 36.1; O2SAT 97
[2022-09-01 06:00] VITALS: BP 137/81; PULSE 51; RESP 16; TEMP 36.1; O2SAT 94
[2022-09-01 07:14] LABS: Cholesterol 133 mg/dL (200); High Density Lipoprotein 55 mg/dL; Triglycerides 61 mg/dL; Very Low Density Lipoprotein 12 mg/dL (5-40)
--- NOTE | 2022-09-01 08:15 | PN.HOSP_ITS ---
Reason for Visit Reason for Visit: Diagnoses Ataxia, unspecified (08/31/22) Personal history of other diseases of the circulatory system (08/31/22) Subjective Subjective Still feels unsteady. Objective Data Objective Data Vital Signs: Vital Signs Temp Pulse Resp BP Pulse Ox O2 Del Method 36.1 C L 51 L 16 137/81 H 94 Room Air 09/01/22 06:00 09/01/22 06:00 09/01/22 06:00 09/01/22 06:00 09/01/22 06:00 09/01/22 06:00 Oxygen Delivery Method Room Air Weight: 79.9 kg Body Mass Index (BMI) 24.2 Intake & Output: Intake and Output for Last 24 Hours 08/30/22 08/31/22 09/01/22 23:59 23:59 23:59 Intake Total 1360 / 1360 Balance 1360 / 1360 Lab / Micro Data 08/31/22 12:00 08/31/22 12:00 Labs: Laboratory Results - last 24 hr 08/31/22 12:00: WBC 5.6, RBC 4.30 L, Hgb 14.2, Hct 41.5, MCV 96.5 H, MCH 33.0 H, MCHC 34.2, RDW Std Deviation 44.3 H, RDW Coeff of Alvarez 12.5, Plt Count 150, MPV 10.1, Immature Gran % (Auto) 0.500, Neut % (Auto) 65.0, Lymph % (Auto) 21.0, [place] % (Auto) 9.8, Eos % (Auto) 3.2, Baso % (Auto) 0.5, Absolute Neuts (auto) 3.7, Absolute Lymphs (auto) 1.18, Nucleated RBC % 0, PT 12.8, INR 1.0, APTT 29.2, Sodium 136, Potassium 3.9, Chloride 104, Carbon Dioxide 29.0, Anion Gap 3 L, BUN 14, Creatinine 1.17, Estim Creat Clear Calc 54.35, Est GFR (MDRD) Af Amer 77, Est GFR (MDRD) Non-Af 64, BUN/Creatinine Ratio 12.0, Glucose 102, Calcium 9 .1, Troponin I High Sens 5 08/31/22 15:24: Troponin I High Sens 7 09/01/22 06:19: Triglycerides 61, Cholesterol 133, LDL Cholesterol 66, VLDL Cholesterol 12, HDL Cholesterol 55 Radiography Diagnostic Testing: Radiology Impression Brain CT 08/31/22 12:08 IMPRESSION: Chronic involutional changes of the brain, as noted. There are no acute findings. N.B. : The above Results were Read Back by Mikey Milton MD to Israel Rojas MD, and understanding confirmed on 08/31/2022 12:57:58 (ET). Electronically Signed: Mikey Milton MD at 12:59 EDT Reading Location ID and State: [id number] / Unknown , Service support , ADDENDUM: 08/31/22 1306 IMPRESSION: Chronic involutional changes of the brain, as noted. There are no acute findings. N.B. : The above Results were Read Back by Mikey Milton MD to Israel Rojas MD, and understanding confirmed on 08/31/2022 12:57:58 (ET). Electronically Signed: Mikey Milton MD at 12:59 EDT Reading Location ID and State: [id number] / Unknown , Service support , Head/Neck CTA 08/31/22 12:09 IMPRESSION: 1. Prominent kinking at the takeoff and first few centimeters of the right common carotid artery. This is of uncertain hemodynamic significance and highly unlikely to account for any acute symptoms. 2. Mild calcific atherosclerotic plaquing at the takeoffs of the bilateral internal carotid arteries without significant stenosis. 3. Additional atherosclerotic plaquing without significant stenosis noted in the cavernous segments of the bilateral internal carotid arteries. 4. No other occlusive lesion seen in the anterior circulation. 5. 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 The posterior circulation is otherwise widely patent. N.B. : The above Results were Read Back by Mikey Milton MD to Israel Rojas MD, and understanding confirmed on 08/31/2022 13:06:45 (ET). Electronically Signed: Mikey Milton MD at 13:13 EDT Reading Location ID and State: [id number] / Unknown , Service support , ADDENDUM: 08/31/22 1319 IMPRESSION: 1. Prominent kinking at the takeoff and first few centimeters of the right common carotid artery. This is of uncertain hemodynamic significance and highly unlikely to account for any acute symptoms. 2. Mild calcific atherosclerotic plaquing at the takeoffs of the bilateral internal carotid arteries without significant stenosis. 3. Additional atherosclerotic plaquing without significant stenosis noted in the cavernous segments of the bilateral internal carotid arteries. 4. No other occlusive lesion seen in the anterior circulation. 5. 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 The posterior circulation is otherwise widely patent. N.B. : The above Results were Read Back by Mikey Milton MD to Israel Rojas MD, and understanding confirmed on 08/31/2022 13:06:45 (ET). Electronically Signed: Mikey Milton MD at 13:13 EDT Reading Location ID and State: [id number] / Unknown , Service support , Rhythm Strip Rhythm Strip: Sinus bradycardia Rate: 53 Ectopy: None Physical Exam Const alert and no apparent distress HEENT head/scalp atraumatic Eyes Eyes Narrative: no nystagmus Resp normal respiratory effort, no retractions, no use of accessory muscles and clear to auscultation bilaterally Cardio regular rate, regular rhythm, S1 normal heart sound and S2 normal heart sound GI normal to inspection, nondistended, normoactive bowel sounds, soft to palpation, non-tender and non-distended Extremity normal to inspection Assessment & Plan Assessment/Plan (1) Ataxia: PLAN: Patient with unsteadiness when he walks. Evaluation for benign paroxysmal positional vertigo was negative with negative lateral gaze for nystagmus and a negative Lakeisha-Hallpike bilaterally. Orthostatic vitals have been ordered. MRI brain negative for acute CVA. Echo shows an EF 65% (2) History of carotid stenosis: PLAN: Noted kinking of the right common carotid on CTA. We will check duplex. Carotid duplex shows less than 50% bilaterally with tortuous right common carotid artery. (3) Bradycardia: PLAN: HR in 40s-50s, which what he has at home. Sinus lenin. Pt states that he very active at baseline and work out 4-5 x week. PLAN: Plan Chronic condition * Abdominal aortic aneurysm * Anemia: Stable * Lymphoma: In remission. * Hyperlipidemia: Continue statin VTE prophylaxis: Low risk given current observation status. Charges/Coding Visit Charges Inpatient E&M: 20492 Subs Hosp L2
[2022-09-01 09:00] VITALS: BP 142/72; PULSE 56; RESP 16; TEMP 36.4; O2SAT 96
--- NOTE | 2022-09-01 09:00 | MRI_ITS ---
HISTORY: dizziness, unsteady gait. TECHNIQUE: Multiplanar and multisequence MR images of the brain were obtained without contrast. 285 images. COMPARISON: CT prior day. FINDINGS: BRAIN PARENCHYMA: Mild periventricular white matter changes. No abnormal focus of restricted diffusion. No acute intracranial hemorrhage identified. CSF SPACES: Mild generalized volume loss. No significant midline shift or other mass effect.No extra-axial fluid collection. VASCULAR SYSTEM: Major intracranial flow voids are maintained. Tortuous cavernous carotid arteries with diminutive appearance of the pituitary gland. PARANASAL SINUSES AND MASTOID AIR CELLS: No significant air fluid levels. ORBITS: Bilateral lens resections. MRI/Brain without Contrast IMPRESSION: No evidence for acute infarct. Mild chronic involutional and white matter changes. Electronically Signed: Shagufta Flro MD at 11:12 EDT ,
[2022-09-01 09:12] VITALS: O2SAT 96
[2022-09-01] MEDS: Aspirin 81 MG TAB.CHEW PO (12:14)
[2022-09-01] MEDS: Pantoprazole Sodium 40 MG Tablet PO (12:14)
--- NOTE | 2022-09-01 14:38 | DCINST_ITS ---
Discharge Instructions Diet Discharge Diet: No restrictions Dressing / Incision Call your doctor if you observe: - (worsening dizziness. ) Follow Up Care Test Results: Test results from this visit will be discussed in further detail at your follow- up appointment, if applicable. Discharge Plan Admission Admit Date/Time: 08/31/22 14:37 Primary Reason for Your Visit: dizziness. Attending Provider: Audi Esqueda Primary Care Provider: Jared Cavazos Instructions Additional Instructions / Restrictions: Your work up for unsteadiness was normal. MRI did not show any stroke nor mass. This may be due to vertigo, possibly inner ear. You can take meclizine (Antivert) as needed. Also, you can follow up with physical therapy for vestibular rehab. Discharge Orders/Prescriptions Prescriptions: New meclizine 12.5 mg tablet 12.5 mg PO TID PRN (Reason: dizziness) Qty: 20 0RF Continued omeprazole 20 mg capsule,delayed release(DR/EC) 40 mg PO DAILY aspirin 81 MG tablet,chewable 81 mg PO DAILY Patient Comments: PT STATES THAT THEY TAKE THIS ON AND OFF Dry Eye Relief 1-0.2-0.2 % drops 1 drp EACH EYE DAILY Patient Comments: PT USES AN OTC DRY EYE RELIEF EVERY DAY rosuvastatin 20 mg tablet 20 mg PO QHS Other Ambulatory Orders: Physical Therapy Evaluation (Routine) Location: None Selected Ordered By: Dr. Audi Esqueda Referrals / Follow Up: Jared Cavazos MD [Primary Care Provider] - Within 2 Weeks Disposition Disposition (needs filled in before D/C Order can be placed): Home, Self Care
--- NOTE | 2022-09-01 14:43 | DS.PCM_ITS ---
Providers Date of Admission: 08/31/22 Primary Care Physician: Dr. Jared Cavazos MD Reason For Visit: DIZZINESS Diagnosis Discharge Diagnosis (1) Ataxia: Status: Acute Code(s): R27.0 - Ataxia, unspecified Plan: Patient with unsteadiness when he walks. Evaluation for benign paroxysmal positional vertigo was negative with negative lateral gaze for nystagmus and a negative Palacios-Hallpike bilaterally. Orthostatic vitals have been ordered. MRI brain negative for acute CVA. Echo shows an EF 65% (2) History of carotid stenosis: Status: Acute Code(s): Z86.79 - Personal history of other diseases of the circulatory system Plan: Noted kinking of the right common carotid on CTA. We will check duplex. Carotid duplex shows less than 50% bilaterally with tortuous right common carotid artery. (3) Bradycardia: Status: Acute Code(s): R00.1 - Bradycardia, unspecified Plan: HR in 40s-50s, which what he has at home. Sinus lenin. Pt states that he very active at baseline and work out 4-5 x week. Plan Chronic condition * Abdominal aortic aneurysm * Anemia: Stable * Lymphoma: In remission. * Hyperlipidemia: Continue statin VTE prophylaxis: Low risk given current observation status. Medications at Discharge Home Medications aspirin 81 mg chewable tablet 81 mg PO DAILY HEART HEALTH 02/21/16 omeprazole 20 mg capsule,delayed release 40 mg PO DAILY ACID REFLUX 01/15/22 peg [id number] 1 %-0.2 %-0.2 % eye drops (Dry Eye Relief) 1 drp EACH EYE DAILY DRY EYE RELIEF 08/31/22 rosuvastatin 20 mg tablet 20 mg PO QHS CHOLESTEROL 08/31/22 meclizine 12.5 mg tablet 12.5 mg PO TID PRN dizziness #20 tabs 09/01/22 Hospital Course Operations None Procedures 2-D Echocardiogram Summary of Care Provided Minutes Spent on Discharge: 32 Hospital Course: Patient presents with unsteadiness. Patient underwent a work-up for stroke that was negative with a normal MRI. Echo was also negative. Patient had a CT angiogram of his neck that showed a concern of a kink in his right carotid. Duplex showed a tortuous right carotid artery. That is mostly did not affect regards to his dizziness. Patient feels better today but that got him up and walked him and he did feel a bit unsteady when he first walked but then was able to regain his poison gait. Unclear the etiology of this. This could be an inner ear vertigo though his Lakeisha-Hallpike was negative previously and had no lateral nystagmus. Recommended taking meclizine as needed and to follow-up with physical therapy for vestibular rehab. Weight / BMI Weight Weight: 79.9 kg Body Mass Index (BMI) 24.2 ABG / Lab / Microbiology Data 08/31/22 12:00 08/31/22 12:00 Laboratory: Laboratory Results - last 24 hr 08/31/22 15:24: Troponin I High Sens 7 09/01/22 06:19: Triglycerides 61, Cholesterol 133, LDL Cholesterol 66, VLDL Cholesterol 12, HDL Cholesterol 55 Radiography Diagnostic Testing: Radiology Impression Carotid Duplex 08/31/22 16:06 Interpretation Summary Mild (<50%) stenosis right extracranial internal carotid. Tortuous right common carotid artery. Mild (<50%) stenosis left extracranial internal carotid. Patent and antegrade vertebrals bilaterally. Ordering Physician: Audi Esqueda Performed By: Azar Mcbride RVT Echocardiogram 08/31/22 16:06 Interpretation Summary The left ventricular ejection fraction is 65 %. Ordering Physician: Audi Esqueda Performed By: Ke Plunkett RCS Brain MRI 09/01/22 09:00 IMPRESSION: No evidence for acute infarct. Mild chronic involutional and white matter changes. Electronically Signed: Shagufta Flor MD at 11:12 EDT , D/C Instructions Discharge Diet: No restrictions Call your doctor if you observe: - (worsening dizziness. ) Meaningful Use Info Meaningful Use Diagnoses (Choose all that apply): None applicable Discharge Plan Admission Admit Date/Time: 08/31/22 14:37 Primary Reason for Your Visit: dizziness. Attending Provider: Audi Esqueda Primary Care Provider: Jared Cavazos Instructions Additional Instructions / Restrictions: Your work up for unsteadiness was normal. MRI did not show any stroke nor mass. This may be due to vertigo, possibly inner ear. You can take meclizine (Antivert) as needed. Also, you can follow up with physical therapy for vest ibular rehab. Discharge Orders/Prescriptions Prescriptions: New meclizine 12.5 mg tablet 12.5 mg PO TID PRN (Reason: dizziness) Qty: 20 0RF Continued omeprazole 20 mg capsule,delayed release(DR/EC) 40 mg PO DAILY aspirin 81 MG tablet,chewable 81 mg PO DAILY Patient Comments: PT STATES THAT THEY TAKE THIS ON AND OFF Dry Eye Relief 1-0.2-0.2 % drops 1 drp EACH EYE DAILY Patient Comments: PT USES AN OTC DRY EYE RELIEF EVERY DAY rosuvastatin 20 mg tablet 20 mg PO QHS Other Ambulatory Orders: Physical Therapy Evaluation (Routine) Location: None Selected Ordered By: Dr. Audi Esqueda Referrals / Follow Up: Jared Cavazos MD [Primary Care Provider] - Within 2 Weeks Disposition Disposition (needs filled in before D/C Order can be placed): Home, Self Care Charges/Coding Visit Charges Inpatient E&M: 56791 Disch Hosp >30min
[2022-09-01 14:50] VITALS: BMI 24.2
[2022-09-01 14:56] VITALS: BP 102/66; PULSE 63; RESP 16; TEMP 36.6; O2SAT 100
--- NOTE | 2022-09-01 16:55 | PHA.DC_ITS ---
Pharmacy [facility] Pharmacy Service has performed discharge medication reconciliation and counseling for this patient. 1. MECLIZINE 12.5MG PO TID PRN DIZZINESS The patient's discharge medication list was reviewed for discrepancies and discrepancies were resolved. The patient was counseled on the following discharge medications and changes in medications for homegoing were reviewed. The Reason for Use, instructions for use, and potential side effects were reviewed for all new medications. The patient's questions regarding all of their medications were answered. The patient was able to verbally demonstrate an understanding of their discharge medications. Patient counseled by pharmacy specialistHeri. Medications at Discharge Home Medications aspirin 81 mg chewable tablet 81 mg PO DAILY HEART HEALTH 02/21/16 omeprazole 20 mg capsule,delayed release 40 mg PO DAILY ACID REFLUX 01/15/22 peg [id number] 1 %-0.2 %-0.2 % eye drops (Dry Eye Relief) 1 drp EACH EYE DAILY DRY EYE RELIEF 08/31/22 rosuvastatin 20 mg tablet 20 mg PO QHS CHOLESTEROL 08/31/22 meclizine 12.5 mg tablet 12.5 mg PO TID PRN dizziness #20 tabs 09/01/22
== END 2022-09-01 14:43 | disposition home or self-care (01) ==
LOC: ED 14:00 → PCU 14:14
PROVIDERS: Emergency Provider Emergency Medicine; PCP Family Medicine
DX: R42 Dizziness and giddiness (principal); C85.90 Non-Hodgkin lymphoma, unspecified, unspecified site; I77.1 Stricture of artery; Z87.891 Personal history of nicotine dependence; Q28.3 Other malformations of cerebral vessels; E78.00 Pure hypercholesterolemia, unspecified; Z79.82 Long term (current) use of aspirin; Z79.899 Other long term (current) drug therapy; R27.0 Ataxia, unspecified; R00.1 Bradycardia, unspecified; I34.0 Nonrheumatic mitral (valve) insufficiency; I65.23 Occlusion and stenosis of bilateral carotid arteries
CPT/HCPCS: 36415; 70450; 70496; 70498; 70551; 80048; 80061; 84484; 85025; 85610; 85730; 93005; 93306; 93880; 94762; 96360; 96361; 97162; 97166; 99221; 99285; J7040; Q9957; Q9967; A4216; C8929; G0378

== ENCOUNTER → 2023-03-12 | Outpatient (CLI) | payer MEDICARE, OTHER, SELFPAY ==
--- NOTE | 2023-03-12 07:53 | AAVD_ITS ---
Reason For Study: HX AO Endograft Aorta Measurements Aorta Doppler Measurements Proximal aorta measures1.86 x 1.80cm. in cross- Peak systolic flow velocities within the proximal sectional axis. aorta measure 108.6 cm/sec. Proximal aorta measures1.79cm. in longitudinal Rt Limb prox = PSV 97.7 cm/s axis. Lt Limb prox = PSV 124.9 cm/s Aortic Endograft noted at mid. Residual sac = 3.62cm x 3.45cm Rt Limb dist = PSV 90.4 cm/s Prox graft Lt Limb dist = PSV 63.2/ cm/s. Rt Limb = 1.24cm x 1.23cm in trans / 1.20cm in long Lt Limb = 1.22cm x 1.30cm in tans / 1.23cm in long Dist AO residual sac = 2.78cm x 2.59cm Dist Graft Rt Limb = 1.26cm x 1.22cm in trans / 1.25cm in long Lt Limb = 1.20cm x 1.22cm in tans / 1.22cm in long. Left Iliac Artery Left iliac artery measures 1.23 x 1.30 cm. in the cross-sectional axis. Left iliac artery measures 1.27 cm. in the longitudinal axis. Peak systolic velocity in the left iliac artery measures 51.0 cm/sec. Right Iliac Artery Right iliac artery measures 1.34 x 1.29 cm. in the cross-sectional axis. Right iliac artery measures 1.36 cm. in the longitudinal axis. Peak systolic velocity in the right iliac artery measures 76.5 cm/sec. Procedure Aorta IVC Iliac vasculature or bypass grafts [id number]. The exam was diagnostic. Exam performed in department. 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 Right iliac limb with normal velocities and no evidence of stenosis Left iliac limb with normal velocities and no evidence of stenosis No flow visualized in the aneurysm sac. Ordering Physician: Audi Tadeo Referring Physician: Audi Tadeo Performed By: Jaquan Mcmahon, RVT
--- OUTSIDE RECORDS SUMMARY | 2023-03-12 08:02 | XMS RPT_ITS | CCD ---
Author Name Unknown Address [address] [facility] [address] [place] [address] Organization [facility] Care Team Providers Care Preforming Machine Operator Name Role Phone HARRISON ROJAS Unavailable Unavailable Jared Robertson Unavailable Unavailable Jared Robertson Unavailable Unavailable HARRISON ROJAS Unavailable Unavailable Jared Robertson Unavailable Unavailable Jared Robertson Unavailable Unavailable HARRISON ROJAS Unavailable Unavailable Jared Robertson Unavailable Unavailable Jared Robertson MD Primary Care Provider Jared Robertson MD Primary Care Provider Kaden Ortiz F Unavailable Jared Robertson MD Primary Care Provider Kaden Ortiz Unavailable Jared Robertson MD Primary Care Provider Kaden Ortiz F Unavailable Jared Robertson MD Primary Care Provider Jared Robertson MD Primary Care Provider Kaden Ortiz F Unavailable Kaden Ortiz MD Unavailable [phone] Jared Robertson MD Primary Care Provider [phone] JARED ROBERTSON Primary Care Unavailable JARED ROBERTSON Referring Unavailable SUZETTE AGUILAR Attending Unavailable JARED ROBERTSON Primary Care Unavailable JARED ROBERTSON Referring Unavailable SUZETTE AGUILAR Attending Unavailable JARED ROBERTSON Referring Unavailable SUZETTE AGUILAR Attending Unavailable JARED ROBERTSON Primary Care Unavailable CARMELLA COPELAND Referring Unavailable MARCELO, JARED A Primary Care Unavailable GARCIA, TANISHA Referring Unavailable MARCELO, JARED A Primary Care Unavailable MARCELO, JARED A Primary Care Unavailable MARCELO, JARED A Attending Unavailable MIMI SOLIS Attending Unavailable CARMELLA COPELAND Referring Unavailable MARCELO, JARED A Primary Care Unavailable KORINA AGUILAR Attending Unavailable MARCELO, JARED A Primary Care Unavailable MARCELO, JARED A Primary Care Unavailable GARCIA, TANISHA Attending Unavailable MARCELO, JARED A Primary Care Unavailable GARCIA, TANISHA Referring Unavailable MARCELO, JARED A Primary Care Unavailable MARCELO, JARED A Primary Care Unavailable GARCIA, TANISHA Referring Unavailable LINO CERVANTES Attending Unavailable GARCIA, TANISHA Referring Unavailable LINO CERVANTES Attending Unavailable MARCELO, JARED A Primary Care Unavailable GARCIA, TANISHA Referring Unavailable LINO CERVANTES Attending Unavailable MARCELO, JARED A Primary Care Unavailable GARCIA, TANISHA Referring Unavailable LINO CERVANTES Attending Unavailable MARCELO, JARED A Primary Care Unavailable GARCIA, TANISHA Referring Unavailable LINO CERVANTES Attending Unavailable MARCELO, JARED A Primary Care Unavailable GARCIA, TANISHA Referring Unavailable LINO CERVANTES Attending Unavailable MARCELO, JARED A Primary Care Unavailable MARCELO, JARED A Primary Care Unavailable MARCELO, JARED A Referring Unavailable CARMELLA COPELAND Attending Unavailable MARCELO, JARED A Primary Care Unavailable MARCELO, JARED A Referring Unavailable Allergies Allergy Classification Reported Allergen(s) Allergy Type Date of Onset Reaction(s) Facility (4 sources) Not Able To Determine Propensity to adverse reactions 3 [facility] (20 sources) Amitriptyline; Translations: [AMITRIPTYLINE HCL] Drug Allergy 8 Other: See Comments [facility] Work Phone: Medications Current Medications Medication Drug Class(es) Dates Sig (Normalized) Sig (Original) benzonatate 100 mg oral capsule (2 sources) Non-narcotic Antitussive Start: 09-18-2021 End: 10-06-2021 take 1 capsule by mouth every eight hours as needed benzonatate (TESSALON PERLE) 100 mg capsule Take 1 capsule by mouth three times daily as needed for up to 10 days. 30 capsule 0 09/26/2021 10/06/2021 Active Completed/Discontinued Medications Medication Drug Class(es) Dates Sig (Normalized) Sig (Original) [id number] actuat albuterol 0.09 mg/actuat metered dose inhaler (20 sources) beta2-Adrenergic Agonist Start: 10-12-2020 End: 09-26-2021 take 2 puff(s) by inhalation every six hours as needed albuterol HFA (PROAIR HFA) 90 mcg/actuation inhaler Inhale 2 Puffs as instructed every 6 hours as needed. 1 Each 1 09/26/2021 Active Problems Active Problems Problem Classification Problem Date Documented Da te Episodic/Chronic Aortic; peripheral; and visceral artery aneurysms (20 sources) Abdominal aortic aneurysm; Translations: [Abdominal aortic aneurysm, without rupture] Onset: 9 06-07-2018 Chronic Chronic obstructive pulmonary disease and bronchiectasis (20 sources) Chronic bronchitis; Translations: [Unspecified chronic bronchitis] Onset: 6 11-11-2016 Chronic Coagulation and hemorrhagic disorders (20 sources) Platelet count below reference range; Translations: [Thrombocytopenia, unspecified] Onset: 6 10-07-2015 Chronic Coronary atherosclerosis and other heart disease (20 sources) Lipid-rich atherosclerosis of coronary artery; Translations: [Atherosclerotic heart disease of three affiliated coronary artery without angina pectoris] Onset: 6 06-07-2018 Chronic Deficiency and other anemia (20 sources) Anemia; Translations: [Anemia, unspecified] Onset: 6 10-07-2015 Episodic Disorders of lipid metabolism (20 sources) Mixed hyperlipidemia; Translations: [Mixed hyperlipidemia] Onset: 6 10-07-2015 Chronic Esophageal disorders (20 sources) Gastroesophageal reflux disease without esophagitis; Translations: [Gastro-esophageal reflux disease without esophagitis] Onset: 6 11-11-2016 Chronic Hyperplasia of prostate (20 sources) Benign prostatic hyperplasia; Translations: [Benign prostatic hyperplasia without lower urinary tract symptoms] Onset: 6 10-23-2015 Chronic Immunizations and screening for infectious disease (1 source) Needs influenza immunization; Translations: [Encounter for immunization] 01-09-2023 Episodic Miscellaneous mental health disorders (20 sources) Primary insomnia; Translations: [Primary insomnia] Onset: 6 10-07-2015 Chronic Neoplasms of unspecified nature or uncertain behavior (2 sources) Monoclonal gammopathy (clinical); Translations: [Monoclonal gammopathy] Onset: 3 10-05-2022 Chronic Non-Hodgkin`s lymphoma (20 sources) Waldenstrom macroglobulinemia; Translations: [Waldenstrom macroglobulinemia] Onset: 3 Chronic Occlusion or stenosis of precerebral arteries (20 sources) Bilateral stenosis of carotid arteries; Translations: [Occlusion and stenosis of bilateral carotid arteries] Onset: 6 12-19-2018 Chronic Other circulatory disease (20 sources) Stenosis of right subclavian artery; Translations: [Stricture of artery] Onset: 8 07-31-2017 Chronic Other circulatory disease (1 source) Stricture of artery; Translations: [Subclavian artery stenosis, right (HCC)] Onset: 3 Chronic Other gastrointestinal disorders (20 sources) Irritable bowel syndrome; Translations: [Irritable bowel syndrome without diarrhea] Onset: 6 08-09-2019 Chronic Other inflammatory condition of skin (20 sources) Psoriasis; Translations: [Psoriasis, unspecified] Onset: 6 10-07-2015 Chronic Other inflammatory condition of skin (20 sources) Rosacea; Translations: [Rosacea, unspecified] Onset: 7 11-11-2016 Chronic Other inflammatory condition of skin (1 source) Rosacea, unspecified; Translations: [Rosacea] Onset: 7 Chronic Other male genital disorders (20 sources) Male erectile dysfunction, unspecified; Translations: [Impotence of organic origin] Onset: 6 10-07-2015 Chronic Other nervous system disorders (20 sources) Chronic pain syndrome; Translations: [Chronic pain syndrome] Onset: 6 02-11-2021 Chronic Other nervous system disorders (11 sources) Unsteady when standing; Translations: [Unsteadiness on feet] Onset: 3 10-27-2022 Episodic Other nervous system disorders (1 source) Abnormal gait; Translations: [Unsteadiness on feet] 01-09-2023 Episodic Other nervous system disorders (2 sources) Unsteadiness on feet; Translations: [Unsteady gait] Onset: 3 Episodic Other nutritional; endocrine; and metabolic disorders (20 sources) Gilbert's syndrome; 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] Onset: 6 10-23-2015 Chronic Other upper respiratory disease (20 sources) Allergic rhinitis due to pollen; Translations: [Allergic rhinitis due to pollen] Onset: 6 10-07-2015 Chronic Residual codes; unclassified (1 source) Family history of cancer of colon; Translations: [Family history of malignant neoplasm of digestive organs] Episodic Spondylosis; intervertebral disc disorders; other back problems (20 sources) Degeneration of lumbar intervertebral disc; Translations: [Other intervertebral disc degeneration, lumbar region] Onset: 6 10-07-2015 Chronic Sprains and strains (2 sources) Lumbar sprain; Translations: [Sprain of ligaments of lumbar spine, subsequent encounter] Episodic Unclassified (1 source) Unknown / UNK(Unknown) Onset: 8 Unclassified (1 source) Abdominal aortic aneurysm (AAA) without rupture, unspecified part (HCC); Translations: [Abdominal aortic aneurysm (AAA) without rupture, unspecified part (HCC)] Onset: 3 Past or Other Problems Problem Classification Problem Date Documented Da te Episodic/Chronic Abdominal hernia (20 sources) Hiatal hernia; Translations: [Diaphragmatic hernia without obstruction or gangrene] Onset: 03-08-2020 03-08-2020 Episodic Abdominal pain (4 sources) Abdominal pain; Translations: [Unspecified abdominal pain] Onset: 06-13-2013 06-13-2013 Episodic Administrative/social admission (20 sources) Advance directive discussed with patient; Translations: [Other specified counseling] Onset: 04-06-2022 Episodic Cardiac dysrhythmias (20 sources) Palpitations; Translations: [Palpitations] Onset: 06-07-2018 06-07-2018 Episodic Conditions associated with dizziness or vertigo (2 sources) Lightheadedness; Translations: [Dizziness and giddiness] Onset: 10-27-2022 10-27-2022 Episodic Deficiency and other anemia (4 sources) Anemia, unspecified; Translations: [Anemia, unspecified] Onset: 10-08-2015 Episodic Diabetes mellitus without complication (20 sources) Hyperglycemia; Translations: [Impaired fasting glucose] Onset: 11-18-2017 11-18-2017 Episodic Malaise and fatigue (4 sources) Fatigue; Translations: [Other fatigue] Onset: 03-07-2013 03-07-2013 Episodic Nausea and vomiting (20 sources) Vomiting; Translations: [Vomiting, unspecified] Onset: 09-12-2020 09-12-2020 Episodic Other aftercare (20 sources) Patient encounter status; Translations: [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] Onset: 09-06-2020 09-06-2020 Episodic Other aftercare (1 source) Other senior care (current) drug therapy; Translations: [Medication management] Onset: 09-06-2020 Episodic Other and unspecified benign neoplasm (20 sources) History of polyp of colon; Translations: [Personal history of colonic polyps] Onset: 10-07-2015 08-09-2019 Episodic Other and unspecified benign neoplasm (20 sources) Adrenal adenoma; Translations: [Benign neoplasm of unspecified adrenal gland] Onset: 10-23-2015 02-11-2021 Episodic Other diseases of kidney and ureters (20 sources) Renal impairment; Translations: [Disorder of kidney and ureter, unspecified] Onset: 03-08-2020 03-08-2020 Episodic Other gastrointestinal disorders (20 sources) Burping; Translations: [Eructation] Onset: 09-12-2020 09-12-2020 Episodic Other infections; including parasitic (19 sources) Personal history of other infectious and parasitic diseases; Translations: [History of COVID-19] Onset: 09-09-2021 04-06-2022 Episodic Other male genital disorders (20 sources) Disorder of prostate; Translations: [Disorder of prostate, unspecified] Onset: 10-23-2015 10-23-2015 Episodic Other male genital disorders (1 source) Disorder of prostate, unspecified; Translations: [Disorder of prostate] Onset: 10-23-2015 Episodic Other nervous system disorders (20 sources) Impairment of balance; Translations: [Other abnormalities of gait and mobility] Onset: 04-01-2021 Episodic Residual codes; unclassified (20 sources) Family history of dementia; Translations: [Family history of other mental and behavioral disorders] Onset: 08-22-2016 08-22-2016 Episodic Spondylosis; intervertebral disc disorders; other back problems (20 sources) Chronic low back pain; Translations: [Chronic low back pain without sciatica, unspecified back pain laterality] Onset: 10-07-2015 Episodic Unclassified (1 source) Stenosis Onset: 07-30-2017 Unclassified (1 source) Onset: 08-01-2021 08-01-2021 Viral infection (7 sources) Disease caused by 2019-nCoV; Translations: [COVID-19] Onset: 09-09-2021 Episodic Results Test Name Value Interpretation Reference Range Facil ity Vital Signs Date Time Vital Sign Value Performing Clinician Facility 01-21-2023 11:36-0500 Body height 182.9 cm Suzette Aguilar MD Work Phone: [facility] 01-21-2023 11:36-0500 Body mass index (BMI) [Ratio] 24.02 kg/m2 Suzette Aguilar MD Work Phone: [facility] 01-21-2023 11:36-0500 Body temperature 97.3 [degF] Suzette Aguilar MD Work Phone: [facility] 01-21-2023 11:36-0500 Body weight 80.33 kg Suzette Aguilar MD Work Phone: [facility] 01-21-2023 11:36-0500 Diastolic blood pressure 70 mm[Hg] Suzette Aguilar MD Work Phone: [facility] 01-21-2023 11:36-0500 Heart rate 46 /min Suzette Aguilar MD Work Phone: [facility] 01-21-2023 11:36-0500 Respiratory rate 16 /min Suzette Aguilar MD Work Phone: [facility] 01-21-2023 11:36-0500 SaO2% (BldA) [Mass fraction] 98 % Suzette Aguilar MD Work Phone: [facility] 01-21-2023 11:36-0500 Systolic blood pressure 148 mm[Hg] Suzette Aguilar MD Work Phone: [facility] 01-09-2023 10:52-0500 Body weight 80.6 kg Carmella Copeland MD Work Phone: [facility] 01-09-2023 10:52-0500 Diastolic blood pressure 60 mm[Hg] Carmella Copeland MD Work Phone: [facility] 01-09-2023 10:52-0500 Heart rate 62 /min Carmella Copeland MD Work Phone: [facility] 01-09-2023 10:52-0500 Respiratory rate 16 /min Carmella Copeland MD Work Phone: [facility] 01-09-2023 10:52-0500 SaO2% (BldA) [Mass fraction] 97 % Carmella Copeland MD Work Phone: [facility] 01-09-2023 10:52-0500 Systolic blood pressure 120 mm[Hg] Carmella Copeland MD Work Phone: [facility] 10-27-2022 13:25-0400 Body temperature 97.39 [degF] Tanisha Garcia PA-C Work Phone: [facility] 10-27-2022 13:25-0400 Body weight 80.29 kg Tanisha Garcia PA-C Work Phone: [facility] 10-27-2022 13:25-0400 Diastolic blood pressure 66 mm[Hg] Tanisha Garcia PA-C Work Phone: [facility] 10-27-2022 13:25-0400 Heart rate 57 /min Tanisha Garcia PA-C Work Phone: [facility] 10-27-2022 13:25-0400 Respiratory rate 16 /min Tanisha Garcia PA-C Work Phone: [facility] 10-27-2022 13:25-0400 SaO2% (BldA) [Mass fraction] 98 % Tanisha Garcia PA-C Work Phone: [facility] 10-27-2022 13:25-0400 Systolic blood pressure 100 mm[Hg] Tanisha Garcia PA-C Work Phone: [facility] 10-05-2022 15:12-0400 Body weight 79.83 kg Korina Aguilar FINISH PRODUCTION MANAGER.FACILITY MAINTENANCE TECHNICIAN Work Phone: [facility] 10-05-2022 15:12-0400 Diastolic blood pressure 82 mm[Hg] Korina Aguilar FINISH PRODUCTION MANAGER.FACILITY MAINTENANCE TECHNICIAN Work Phone: [facility] 10-05-2022 15:12-0400 Heart rate 58 /min Korina Nicola FINISH PRODUCTION MANAGER.FACILITY MAINTENANCE TECHNICIAN Work Phone: [facility] 10-05-2022 15:12-0400 Respiratory rate 16 /min Korina Aguilar FINISH PRODUCTION MANAGER.FACILITY MAINTENANCE TECHNICIAN Work Phone: [facility] 10-05-2022 15:12-0400 Systolic blood pressure 134 mm[Hg] Korina Aguilar FINISH PRODUCTION MANAGER.FACILITY MAINTENANCE TECHNICIAN Work Phone: [facility] 08-31-2022 11:02-0400 Body temperature 97 [degF] Sabi Athy PA-C Work Phone: [facility] 08-31-2022 11:02-0400 Body weight 81.01 kg Sabi Athy PA-C Work Phone: [facility] 08-31-2022 11:02-0400 Diastolic blood pressure 80 mm[Hg] Sabi Athy PA-C Work Phone: [facility] 08-31-2022 11:02-0400 Heart rate 60 /min Sabi Athy PA-C Work Phone: [facility] 08-31-2022 11:02-0400 Respiratory rate 20 /min Sabi Athy PA-C Work Phone: [facility] 08-31-2022 11:02-0400 SaO2% (BldA) [Mass fraction] 100 % Sabi Athy PA-C Work Phone: [facility] 08-31-2022 11:02-0400 Systolic blood pressure 160 mm[Hg] Sabi To PA-C Work Phone: [facility] 04-06-2022 14:52-0500 Body height 181.6 cm Jared Robertson MD Work Phone: [facility] 04-06-2022 14:52-0500 Body weight 80.74 kg Jared Robertson MD Work Phone: [facility] 04-06-2022 14:52-0500 Diastolic blood pressure 74 mm[Hg] Jared Robertson MD Work Phone: [facility] 04-06-2022 14:52-0500 Heart rate 50 /min Jared Robertson MD Work Phone: [facility] 04-06-2022 14:52-0500 Respiratory rate 16 /min Jared Robertson MD Work Phone: [facility] 04-06-2022 14:52-0500 Systolic blood pressure 118 mm[Hg] Jared Robertson MD Work Phone: [facility] 01-30-2022 10:22-0500 Body height 185.4 cm Suzette Aguilar MD Work Phone: [facility] 01-30-2022 10:22-0500 Body mass index (BMI) [Ratio] 24.26 kg/m2 Suzette Aguilar MD Work Phone: [facility] 01-30-2022 10:22-0500 Body temperature 97.59 [degF] Suzette Aguilar MD Work Phone: [facility] 01-30-2022 10:22-0500 Body weight 83.42 kg Suzette Aguilar MD Work Phone: [facility] 01-30-2022 10:22-0500 Diastolic blood pressure 75 mm[Hg] Suzette Aguilar MD Work Phone: [facility] 01-30-2022 10:22-0500 Heart rate 60 /min Suzette Aguilar MD Work Phone: [facility] 01-30-2022 10:22-0500 Respiratory rate 18 /min Suzette Aguilar MD Work Phone: [facility] 01-30-2022 10:22-0500 SaO2% (BldA) [Mass fraction] 96 % Suzette Aguilar MD Work Phone: [facility] 01-30-2022 10:22-0500 Systolic blood pressure 144 mm[Hg] Suzette Aguilar MD Work Phone: [facility] 12-09-2021 08:17-0400 Body weight 83.46 kg Tata Porter DO Work Phone: [facility] 12-09-2021 08:17-0400 Diastolic blood pressure 65 mm[Hg] Tata Porter DO Work Phone: [facility] 12-09-2021 08:17-0400 Heart rate 52 /min Tata Porter DO Work Phone: [facility] 12-09-2021 08:17-0400 SaO2% (BldA) [Mass fraction] 99 % Tata Porter DO Work Phone: [facility] 12-09-2021 08:17-0400 Systolic blood pressure 111 mm[Hg] Tata Porter DO Work Phone: [facility] 09-26-2021 13:36-0400 Body temperature 98.4 [degF] Tanisha Garcia PA-C Work Phone: [facility] 09-26-2021 13:36-0400 Body weight 81.19 kg Tanisha Garcia PA-C Work Phone: [facility] 09-26-2021 13:36-0400 Diastolic blood pressure 60 mm[Hg] Tanisha Garcia PA-C Work Phone: [facility] 09-26-2021 13:36-0400 Heart rate 60 /min Tanisha Jose PA-C Work Phone: [facility] 09-26-2021 13:36-0400 Respiratory rate 18 /min Tanisha Garcia PA-C Work Phone: [facility] 09-26-2021 13:36-0400 Systolic blood pressure 100 mm[Hg] Tanishasakina Garcia PA-C Work Phone: [facility] 08-11-2021 14:41-0400 Body weight 82.56 kg NA Archer PA-C Work Phone: [facility] 08-11-2021 14:41-0400 Diastolic blood pressure 68 mm[Hg] NA Archer PA-C Work Phone: [facility] 08-11-2021 14:41-0400 Heart rate 65 /min NA Archer PA-C Work Phone: [facility] 08-11-2021 14:41-0400 Respiratory rate 16 /min NA Archer PA-C Work Phone: [facility] 08-11-2021 14:41-0400 SaO2% (BldA) [Mass fraction] 98 % NA Archer PA-C Work Phone: [facility] 08-11-2021 14:41-0400 Systolic blood pressure 126 mm[Hg] NA Archer PA-C Work Phone: [facility] 08-01-2021 09:15-0400 Body height 185.4 cm Victor Mi Retana PA-C Work Phone: [facility] 08-01-2021 09:15-0400 Body mass index (BMI) [Ratio] 24.39 kg/m2 Gai Retana PA-C Work Phone: [facility] 08-01-2021 09:15-0400 Body temperature 97.39 [degF] Esdras Retana PA-C Work Phone: [facility] 08-01-2021 09:15-0400 Body weight 83.87 kg Victor Mi Retana PA-C Work Phone: [facility] 08-01-2021 09:15-0400 Diastolic blood pressure 63 mm[Hg] Gai Retana PA-C Work Phone: [facility] 08-01-2021 09:15-0400 Heart rate 52 /min Gai Retana PA-C Work Phone: [facility] 08-01-2021 09:15-0400 Respiratory rate 16 /min Gai Retana PA-C Work Phone: [facility] 08-01-2021 09:15-0400 SaO2% (BldA) [Mass fraction] 97 % Gai Retana PA-C Work Phone: [facility] 08-01-2021 09:15-0400 Systolic blood pressure 136 mm[Hg] Gai Retana PA-C Work Phone: [facility] 09-12-2020 13:36-0400 Body mass index (BMI) [Ratio] 24.12 kg/m2 Suzette Aguilar MD Work Phone: [facility] 09-12-2020 13:36-0400 Body temperature 97.81 [degF] Suzette Aguilar MD Work Phone: [facility] 09-12-2020 13:36-0400 Body weight 82.92 kg Suzette Aguilar MD Work Phone: [facility] 09-12-2020 13:36-0400 Diastolic blood pressure 65 mm[Hg] Suzette Aguilar MD Work Phone: [facility] 09-12-2020 13:36-0400 Heart rate 50 /min Suzette Aguilar MD Work Phone: [facility] 09-12-2020 13:36-0400 Respiratory rate 14 /min Suzette Aguilar MD Work Phone: [facility] 09-12-2020 13:36-0400 SaO2% (BldA) [Mass fraction] 98 % Suzette Aguilar MD Work Phone: [facility] 09-12-2020 13:36-0400 Systolic blood pressure 143 mm[Hg] Suzette Aguilar MD Work Phone: [facility] Encounters Encounter Date Encounter Type Care Provider Facility Start: 02-16-2023 End: 02-16-2023 ambulatory MIMI SOLIS Facility:[facility] Start: 02-09-2023 End: 02-09-2023 ambulatory CARMELLA COPELAND Facility:[facility] Start: 01-21-2023 ambulatory JARED ROBERTSON [facility] ty:[facility] Start: 01-21-2023 End: 01-21-2023 Office outpatient visit 15 minutes Suzette Aguilar MD Work Phone: Division of Hematology & Oncology at [facility] Procedures Date Procedure Procedure Detail Performing Clinician Start: 01-21-2023 CBC AND ELECTRONIC DIFF Esdras Mays Retana PAC Work Phone: Start: 01-21-2023 Complete blood count with white cell differential, automated Esdras Mays Retana PAC Work Phone: Start: 01-21-2023 Comprehensive metabo lic panel Esdras Retana PAC Work Phone: Start: 01-21-2023 SPE SERUM TOTAL PROTEIN Esdras Retana PAC Work Phone: Start: 01-09-2023 INFLUENZA VACCINE, P RSV FREE, AGE 65+ YR, HIGH DOSE, QUADRIVALENT (FLUZONE HIGH-DOSE) Carmella Copeland MD Work Phone: Start: 01-30-2022 CBC AND ELECTRONIC DIFF Angela L Uscio FINISH PRODUCTION MANAGER-FACILITY MAINTENANCE TECHNICIAN Work Phone: Start: 01-30-2022 Complete blood count with white cell differential, automated Angela L Uscio FINISH PRODUCTION MANAGER-FACILITY MAINTENANCE TECHNICIAN Work Phone: Start: 01-30-2022 Comprehensive metabo lic panel Angela L Uscio FINISH PRODUCTION MANAGER-FACILITY MAINTENANCE TECHNICIAN Work Phone: Start: 01-30-2022 SPE SERUM TOTAL PROTEIN Angela L Uscio FINISH PRODUCTION MANAGER-FACILITY MAINTENANCE TECHNICIAN Work Phone: Start: 08-01-2021 CBC AND ELECTRONIC DIFF Angela L Uscio FINISH PRODUCTION MANAGER-FACILITY MAINTENANCE TECHNICIAN Work Phone: Start: 08-01-2021 Complete blood count with white cell differential, automated Angela L Uscio FINISH PRODUCTION MANAGER-FACILITY MAINTENANCE TECHNICIAN Work Phone: Start: 08-01-2021 Comprehensive metabo lic panel Angela L Uscio FINISH PRODUCTION MANAGER-FACILITY MAINTENANCE TECHNICIAN Work Phone: Start: 08-01-2021 SPE SERUM TOTAL PROTEIN Angela L Uscio FINISH PRODUCTION MANAGER-FACILITY MAINTENANCE TECHNICIAN Work Phone: Start: 09-12-2020 CBC AND ELECTRONIC DIFF Angela L Uscio FINISH PRODUCTION MANAGER-FACILITY MAINTENANCE TECHNICIAN Work Phone: Start: 09-12-2020 Complete blood count with white cell differential, automated Angela L Uscio FINISH PRODUCTION MANAGER-FACILITY MAINTENANCE TECHNICIAN Work Phone: Start: 09-12-2020 Comprehensive metabo lic panel Angela L Uscio FINISH PRODUCTION MANAGER-FACILITY MAINTENANCE TECHNICIAN Work Phone: Start: 09-12-2020 SPE SERUM TOTAL PROTEIN Angela L Uscio FINISH PRODUCTION MANAGER-FACILITY MAINTENANCE TECHNICIAN Work Phone: Start: 02-03-2013 Wilmer guerra MD Work Phone: Plan of Treatment Date Care Activity Detail Author Start: 10-27-2025 Diabetes Screening Diabetes Screening [facility] Start: 10-03-2025 DIABETES SCREEN DIABETES SCREEN [facility] Start: 10-03-2025 Diabetes Screening Diabetes Screening [facility] Start: 04-06-2025 DIABETES SCREEN DIABETES SCREEN [facility] Start: 09-23-2024 DIABETES SCREEN DIABETES SCREEN [facility] Start: 03-18-2024 DIABETES SCREEN DIABETES SCREEN [facility] Start: 10-04-2023 Hepatitis B surface antibody level LDL CHOLESTEROL [facility] Start: 07-29-2023 End: 01-22-2024 BETA 2 MICROGLOBULIN SERUM BETA 2 MICROGLOBULIN SERUM Lab Routine [place] macroglobulinemia Expected: 07/29/2023 (Approximate), Expires: 01/22/2024 [facility] Immunizations Immunization Date Immunization Notes Care Provider Tee pierre 01-09-2023 influenza (HD-IIV4) vaccine, age 65+ yr, high dose, quadrivalent, PF (FLUZONE HIGH-DOSE) Carmella Copeland MD Work Phone: [facility] 06-29-2022 zoster vaccine recombinant Sabi To PA-C Work Phone: [facility] 04-18-2022 zoster vaccine recombinant Jared Robertson MD Work Phone: [facility] 12-16-2021 influenza, high dose seasonal, preservative-free Jared Robertson MD Work Phone: [facility] 12-16-2021 influenza virus vacc ine, unspecified formulation Jared Robertson MD Work Phone: [facility] 03-29-2021 pneumococcal polysaccharide vaccine, 23 valent Raymundo Hsu PT Work Phone: [facility] 11-30-2020 influenza, high dose seasonal, preservative-free NA Gianni ORTEGA Work Phone: [facility] 11-30-2020 influenza, high-dose , quadrivalent vaccine (FLUZONE HIGH DOSE QUADRIVALENT) Raymundo Hsu PT Work Phone: [facility] 11-30-2020 influenza virus vacc ine, unspecified formulation Suzette Aguilar MD Work Phone: [facility] 12-17-2019 influenza, high dose seasonal, preservative-free Raymundo Hsu PT Work Phone: [facility] 11-25-2018 influenza, high dose seasonal, preservative-free Raymundo Hsu PT Work Phone: [facility] 01-22-2018 Seasonal trivalent influenza vaccine, adjuvanted, preservative free Raymundo Hsu PT Work Phone: [facility] 12-13-2016 influenza nasal, unspecified formulation NA Gianni STEPHENS-C Work Phone: [facility] 12-13-2016 influenza, high dose seasonal, preservative-free Raymundo Hsu PT Work Phone: [facility] 01-26-2016 influenza, injectabl e, quadrivalent, contains preservative Raymundo Hsu PT Work Phone: [facility] 10-23-2015 pneumococcal conjuga te vaccine, 13 valent Raymundo Hsu PT Work Phone: [facility] Work Phone: 11-23-2014 influenza, high dose seasonal, preservative-free Raymundo Hsu PT Work Phone: [facility] 11-23-2014 pneumococcal conjuga te vaccine, 13 valent Raymundo Hsu PT Work Phone: [facility] 11-30-2012 influenza nasal, unspecified formulation Raymundo Hsu PT Work Phone: [facility] 11-30-2012 influenza virus vacc ine, unspecified formulation Suzette Aguilar MD Work Phone: [facility] 04-20-2012 pneumococcal polysaccharide vaccine, 23 valent Raymundo Hsu PT Work Phone: [facility] 10-31-2010 tetanus toxoid, redu rodolfo diphtheria toxoid, and acellular pertussis vaccine, adsorbed Raymundo Hsu PT Work Phone: [facility] 02-13-2009 novel influenza-H1N1 -09, preservative-free, injectable NA Gianni PA-C Work Phone: [facility] 12-19-2005 influenza virus vacc ine, unspecified formulation Raymundo Hsu PT Work Phone: [facility] Work Phone: Payers Date Payer Category Payer Private Health Insurance [id number] 2010 Unknown [id number] 2010 Unknown AARP AARP xxxxxx [id number] 2010-Present [address] [place] [address] [id number] 2010 Unknown [id number] 2005 Medicare [id number] 2005 Medicare [id number] 2005 Medicare [id number] 1940 Unknown [id number] 1940 Unknown [id number] 1940 Unknown [id number] Medicare [id number] Social History Date Type Detail Facility Start: 08-26-2012 End: 09-26-2021 Tobacco smoking status [facility] Former smoker [facility] Start: 08-26-2012 Tobacco use and exposure Former user [facility] End: 02-15-1979 History of tobacco use User of smokeless tobacco [facility] Start: 07-16-2015 End: 01-09-2023 Alcohol intake Current drinker of alcohol (finding) [facility] Start: 07-16-2015 End: 07-09-2018 Alcohol intake [facility] Start: 08-26-2012 Alcohol Comment has several drinks/w [place] [facility] Start: 1940 Sex Assigned At Not on file [facility] Start: 08-01-2021 End: 12-09-2021 Exposure to SARS-CoV-2 (event) Not sure [facility] End: 02-15-1974 History of tobacco use Current smoker [facility] Start: 02-29-2020 End: 09-09-2021 History SDOH Alcohol Frequency 4 [facility] Start: 02-29-2020 End: 09-09-2021 History SDOH Alcohol Std Drinks 1 [facility] Start: 02-29-2020 End: 09-09-2021 History SDOH Social Connections Phone 5 [facility] Start: 02-29-2020 End: 09-09-2021 History SDOH Social Connections Get Together 2 [facility] Start: 02-29-2020 History SDOH Social Connections Evangel[employer] 98 [facility] Start: 02-29-2020 End: 09-09-2021 History SDOH Social Connections Meetings 3 [facility] Start: 02-29-2020 End: 09-09-2021 History SDOH Social Connections Living 8 [facility] Start: 02-28-2020 Education 19 [facility] Start: 03-15-2012 End: 09-26-2021 Tobacco Comment NO EXPOSURE TO 2ND HAND SMOKE [facility] Start: 09-09-2021 History SDOH Physica l Activity MPS 6 [facility] End: 02-15-1974 History of tobacco use Cigarette Smoker [facility] Start: 03-15-2012 End: 09-26-2021 Tobacco use and exposure Smokeless tobacco non-user [facility] Start: 09-16-2021 End: 09-26-2021 Exposure to SARS-CoV-2 (event) Yes [facility] Start: 01-20-2022 End: 01-30-2022 Exposure to SARS-CoV-2 (event) Unable to assess [facility] Start: 07-09-2018 End: 09-09-2021 Social connection and isolation panel [facility] Attends [employer] Not on file [facility] Are you now , , , , never or living with a partner? Living with partner [facility] How many standard dr inks containing alcohol do you have on a typical day? 1 or 2 [facility] How often do you hav e 6 or more drinks on 1 occasion? Never [facility] Do you feel stress - tense, restless, nervous, or anxious, or unable to sleep at night because your mind is troubled all the time - these days [OSQ] To some extent [facility] (I/We) worried wheth er (my/our) food would run out before (I/we) got money to buy more. Never true [facility] In the past 12 month s, was there a time when you were not able to pay the mortgage or rent on time? No [facility] Gender identity Identifies as ma le gender (finding) [facility] Clinical Notes 04-18-2020 to 02-16-2023 Ligia Barrett RN - 01/21/2023 12:15 PM Ricardo Aguilar MD - 01/21/2023 12:15 PM Idania Russell APRN-FACILITY MAINTENANCE TECHNICIAN - 01/21/2023 12:15 PM ESTPatient Lino Morillo, PT - 01/05/2023 4:06 PM EST Note Date & Type Note Facility 02-16-2023 Note HNO ID: [id number] Author: Mimi Solis PA-C Service: ? Author Type: Physician Clinical Product Manager Type: Progress Notes Filed: 02/16/2023 9:42 AM Note Text: Neurology Outpatient Clinic Date: February 16, 2023 Patient Name: Christiano Sorensen Referring physician: Carmella Copeland [address] [facility] [id number] Consult requested for unsteadiness by Dr. Copeland. Recommendations will be communicated via shared medical record or US mail. Primary physician: Jared Robertson [address] [place] [address] Reason for Evaluation: unsteadiness Subjective HPI Christiano Sorensen is a 82 year old left-handed male with history of MLL, anemia, IBS, [place] syndrome, insomnia, AAA, HLD who presents for evaluation of unsteadiness. Dr. Copeland is the referring physician. Dr. Jared Robertson MD is the PCP. Chart review: Saw PCP on 01/09/23 for unsteady gait. Pt c/o balance/unsteadiness issues. Problem started acutely in Sep, he was hospitalized for one night, had workup including MRI that was unremarkable. He has been doing PT for this since Nov. Echo was WNL, Carotid US was <50% b/l and MRI normal. He had been doing better until one week ago when he again had acute worsening. He was walking into things, difficulty walking a straight line, is being extra cautious with position changes. He has been drinking more fluids to make sure he is not dehydrated, BP is ok with readings around 130/69 on . He finished his PT last week, had a balance test done by therapist who stated his balance was above average. Then last Wednesday he woke up and felt like he was back to [facility]. Patient presents for evaluation of unsteadiness that began around . Patient reports that he began experiencing some unsteadiness specifically with position change and ambulation, went to the emergency department for concerns of stroke. Was admitted but no etiology for symptoms were found, was told it was likely inner ear. Was put in vestibular therapy with some mild improvement, but never full resolution. Stopped physical therapy and symptoms worsened. Symptoms occur daily, never fully resolved and acutely worsened with standing and ambulation. Notes that he had 1 fall initially when symptoms began which prompted his visit to the emergency department, but no other falls. Does report some stumbling due to the unsteadiness since that time. No syncope, no feeling that he could pass out, no room spinning dizziness. Describes it as more of an unsteadiness and mild lightheadedness. Does have history of lymphoma, follows with oncology in [place]. Patient presented to his primary care additionally and repeat MRI with contrast was obtained again normal. Notes that he was started on a new GI medication, unsure of the name Also notes about 6 months to a year ago he began experiencing pulsations in the right ear when he lays down at night also reports that when he lays on his right side his heart rate increases from 60 to 90 bpm and occasionally gets some pain down left his arm. This has been going on for months without any known etiology. Patient also reports some paresthesias to his toes which is more of a chronic issue. No history of chemotherapy, no history of diabetes mellitus, no diet restrictions, no heavy metal exposure, no heavy alcohol use, no family history of neuropathy. Does report his father had diabetes as well as colon cancer that metastasized to his brain. Mother had history of Alzheimer's. Also reporting some muscle twitching, described as ripples in his muscles. Primarily occur at the calves daily, but today reported this in his left hand at the base of the thumb. No generalized weakness, no falls, no difficulty going up and down stairs, also reports some change in his voice, reports is little bit more quiet. Also notes new onset tremor over the last few months or so in the right and left upper extremity, worse on the right. Notes this is causing his handwriting to be illegible, no micrographia. Does report some mild change in his sense of smell, this is decreased over the years, but no anosmia. No REM sleep disorders, no gait change, no hallucinations, no family history of Parkinson's, no constipation. Does report some issues with short-term memory, states that he will forget things that he wishes to hold, but no car accidents, no getting lost, leaving stove on. Denies any history of stroke, blood clots, DVTs, heart attack. Does not drink much water, did increase his water intake after seeing primary care but this did not seem to help his symptoms. Do you have to be up to have the dizziness or can you have the dizziness when seated or lying down? More when getting up and walking. Do you feel like things are moving in when you know they are actually still? No Do you have otalgia? Now and then but no connection. Do (more content not included)... [facility] 02-09-2023 Note HNO ID: [id number] Author: Karla Herrera RT(R) Service: ? Author Type: Technologist Type: Progress Notes Filed: 02/09/2023 2:21 PM Note Text: Radiology Service Progress Note DATE OF SERVICE: February 09, 2023 TIME: 2:20 PM PATIENT IDENTITY VERIFICATION COMPLETED USING TWO (2) STANDARD IDENTIFIERS: Name and Date of confirmed by patient verbally. FALL SCREENING: Has the patient had 2 falls in the last year or 1 fall with injury or currently using an Ambulatory Assistive Device (Walker, Cane, Wheelchair, Crutches, etc.)? No PATIENT GENDER DATA: Male PATIENT RELEVANT IMPLANT DATA REVIEWED: Yes ALLERGIES: Reviewed and unchanged CONTRAST ALLERGY: NO. EXAM: MRI - CONTRAST TYPE: GROUP II PERIPHERAL IV DATA: Ambulatory: A peripheral IV was started in the Right antecubital site with a Angio cath: 22 gauge. RADIOLOGY DEPARTMENT: MR; Exam(s) Completed: Head: Routine Brain SIGNATURE: RT Billy(R) PATIENT NAME: Christiano Sorensen DATE: February 09, 2023 TIME: 2:20 PM [facility] 01-21-2023 History of Present illness Narrative Discharge instructions given with verbal understanding voiced. Encouraged to call with any questions or concerns. I have personally seen and examined Mr. Sorensen and discussed with him the plan of care. I have reviewed all of the laboratory data and available test results and discussed the case in detail with the nurse practitioner, Angela Russell. I agree with the above documented history, physical examination findings and medical decision making. Mr. Sorensen is a 82 yo patient with a history of WM with a low level IgM diagnosed in 2012 who has never required therapy. He was a prior patient of Dr. Jackson who established care in our clinic in March 2016. 1) WM Mr. Sorensen presents today for 6 month follow up. He is doing well from our standpoint. No B symptoms. He has had some balance issues, worked up for acute stroke was negative, seemed to be intermittent, brain MRI planned for end of this month. No lymphadenopathy, no splenomegaly. Labs reviewed, minimal normocytic anemia, monoclonal protein pending. He has no evidence of progressive disease today by history, exam or labs - his IgM is overall stable as is his hemoglobin. He has no indication for treatment. We have previously discussed that there are several options for treatment when required and can include BTK inhibitor +/- CD20 antibody or BR in the frontline treatment setting. 2) Balance issues Do not seem to be related to his WM. Acute stroke evaluation negative. Concern for inner ear but having brain MRI at the end of the month. Asked him to call us when this is completed. He will return in 6 months with labs and exam. I have answered all of his questions. He knows to contact us sooner if he has questions, concerns or issues. -KJM History of Present Illness: Mr. Sorensen presents for 6 month follow up of his WM. Interval History 01/21/2023: Mr Sorensen presents today for his 6 month follow up evaluation. He is accompanied by his . He is overall feeling fair. He denies fevers, night sweats, chest pain or SOB. Denies nausea, vomiting, diarrhea, constipation or new lymphadenopathy. 07/23/2022 - Mr. Sorensen presents today for follow up and evaluation. He presents with his today. He had hiatal hernia repair and colon dilation earlier in the year. He reports he has occasional dry heaving episodes and following with GI. 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 She denies fever, night sweats, weight loss, new lymphadenopathy, SOB, CP, nausea, vomiting, diarrhea, constipation, numbness/tingling, swelling, rash. Disease History: Mr. Sorensen is a 82 y.o. 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 He has been monitored on surveillance and his counts have been stable with no lymphadenopathy. He was seen by Dr. Kaden Calderon, at the [facility] which I believe is associated with [facility], as part of his workup in conjunction with seeing Dr. Calderon. He had a bone marrow biopsy on 03/04/2012 which was remarkable for several circumscribed interstitial lymphoid aggregates composed of small, round lymphocytes that were noted in the clot section. Immuno stains showed that aggregates were composed of CD3-positive T-cells predominantly and with fewer admixed [id number] B cells. These aggregates accounted for less than 5% of the overall cellularity. Immuno stains for CD138 kappa and lambda cytoplasmic immunoglobulin were done and showed that the plasma cells represented less than 5% of overall cellularity and appeared polytypic. Flow cytometry of the marrow showed a low level B cell population (0.6% of total cells) with an otherwise unremarkable phenotype aside from an elevated kappa to lambda ratio (4.4) that was suggestive of monoclonality. Specifically, regarding the 6% of total events that have CD45 and side scatter properties of lymphocytes. The lymphocytes were composed of a mixture of T cells 74% with the CD4:CD8 ratio 1.4, NK cells 6%, and B cells 20%. The B cells displayed an abnormal immunophenotype and expressed CD19, CD20, CD45, CD79b, and FMC7 with monocytic kappa surface light chain immunoglobulin and kappa to lambda ratio 4.4. The B cells were negative for CD5 and CD10 and these B cells represented approximately 0.6% of the total cells as mentioned. His cytogenetics were normal. At the time of his bone marrow biopsy on 03/04/2012, his CBC was rather unremarkable with a white blood cell count of 5.7, hemoglobin 14.4, platelets of 184,000 with 66% neutrophils, 31% lymphocytes, 2% monocytes, and rare plasmacytoid lymphocytes at 1%. He also had a CT chest, abdomen, and pelvis as part of his workup, the report of which I do not have, which the patient reports was remarkable for a small adrenal nodule, a prostate nodule, as well as a thick bladder. He does not report any splenomegaly or adenopathy or any other remarkable findings. These findings did prompt further evaluation with a PSA. His PSA was reported to me as normal and the urologist per report was not concerned about his thickened bladder finding. After this aforementioned workup, it was concluded by Dr. 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 Of note in addition to a normal CBC on 03/04/2012, he had a normal beta 2, LDH, creatinines, calcium, and albumin. Review of Systems: A full ROS was performed and negative other than reported in interval history. 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 Bronchitis past Cancer (HCC) 2012 Chest pain Diverticulosis Diverticulosis Hemorrhoids 2012 Hyperlipidemia IBS (irritable bowel syndrome) Infectious mononucleosis 1960 Lymphoma (HCC) 2012 Measles 1850 Pneumonia Whooping cough 1850 Past Surgical History: Procedure Laterality Date COLONOSCOPY 2013 EGD W/ BX N/A 02/03/2013 Laterality: N/A; Surgeon: Jared Cline MD; Location: [facility] COLONOSCOPY FOR COLORECTAL CANCER SCREENING HIGH RISK INDIVIDUAL N/A 02/03/2013 Laterality: N/A; Surgeon: Jared Cline MD; Location: [facility] CHOLECYSTECTOMY LAPAROSCOPIC 2009 Current Outpatient Medications Medication Sig aspirin 81 MG Tab take 81 mg by mouth daily. Cetirizine HCl (ZYRTEC ALLERGY PO) as needed. LACTULOSE PO Take 30 mL by mouth daily. rosuvastatin 20 MG PO TABS take 20 mg by mouth daily. Allergies Allergen Reactions Not Able To Determine Deodorant - rash and itchiness. Can only tolerated hypo-allogenic deodorant Social History Socioeconomic History Marital status: Single Number of children: 2 Occupational History Occupation: 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 His current has been with him for 10+ years but his children are from a previous relationship Family History Problem Relation Age of Onset Other - Specify Father severe allergy to shellfish, colon cancer Diabetes Father Colorectal Cancer Father 72 Neurologic Disease Mother Alzheimers Neurologic Disease Brother MS Cancer- Other Paternal Grandfather testicular cancer BP 148/70 (BP Location: Right arm, BP Position: Sitting) Pulse (!) 46 Temp 97.3 F (36.3 C) (Oral) Resp 16 Ht 1.829 m (6') Wt 80.3 kg (177 lb 1.6 oz) SpO2 98% BMI 24.02 kg/m Smoking Status Former Physical Examination: ECOG Performance Status: Performance status: Karnofsky scale 100 (ECOG grade 0) No limitations GEN: AAOx3, NAD HEAD and NECK: normocephalic, atraumatic. Oral mucosa is not inflamed and without lesions. CHEST: CTAB, no wheezes/rhonchi/rales CARDIO: RRR, no rubs/gallops ABD: soft, non-tender, no hepatosplenomegaly, no mass NEURO: grossly normal MUSCULOSKELETAL: Normal range of motion. He exhibits no edema and no tenderness. SKIN: anicteric, no rash EXTREMITIES: no edema LYMPH: no cervical, supraclavicular, axillary, or inguinal LAD PSYCHIATRIC: Mood, memory, affect and judgment normal. Lymph Node examination is as follows: Location Right cm Left cm Anterior Cervical neg neg Posterior Cervical neg neg Supraclavicular neg neg Axillary neg neg Inguinal neg neg Femoral neg neg Lab Results Component Value Date WBC 4.95 01/21/2023 HGB 13.0 (L) 01/21/2023 HCT 37.7 (L) 01/21/2023 PLATELET 144 (L) 01/21/2023 MCV 94.0 01/21/2023 Lab Results Component Value Date SODIUM 137 01/21/2023 POTASSIUM 4.1 01/21/2023 CHLORIDE 105 01/21/2023 CO2 27 01/21/2023 BUN 23 01/21/2023 CREATSERUM 1.10 01/21/2023 Lab Results Component Value Date ALT 13 01/21/2023 AST 17 01/21/2023 ALKPHOS 65 01/21/2023 BILITOTAL 1.0 01/21/2023 IgM 829 (previous 734), monoclonal protein pending Assessment/Plan: Mr. Sorensen is a 78 yo patient with a history of WM with a low level IgM diagnosed in 2012 who has never required therapy. He was a prior patient of Dr. Jackson who established care in our clinic in March 2016. 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 Sorensen presents today for 6 month follow up. Overall continued to do well from Wal[place]strom standpoint. He has no evidence of progressive disease today by history, exam or labs. IgM and monoclonal protein pending. Will follow-up on monoclonal protein but he otherwise has no indication for treatment. We have previously discussed that there are several options for treatment when required. Will RTC in 6 months.. 01/21/2023: Mr Sorensen presents today for his follow up evaluation. He is 07/23/2022 - Mr. Sorensen presents today for follow up and evaluation. He did have recent hiatal hernia repair and colon dilation and has occasional dry heaving and following with GI. On exam no lymphadenopathy nor splenomegaly. Labs reviewed and he has normocytic anemia, monoclonal protein is pending. There are no indications for treatment at this time. HE will follow up ion 6 months for evaluation. He knows to contact us sooner if he has questions, concerns or issues. documented in this encounter [facility] 01-21-2023 Instructions Ligia Barrett RN - 01/21/2023 12:15 PM EST Primary Care Team Dr. Suzette Russell CNP- Certified Nurse Practitioner Esdras Barrett RN - Primary Nurse Karlene Tamez RN-Primary Nurse Sabrina Royal Patient Care Steam Tank Operator [phone] Contact Numbers: Clinic Phone & Appointment Changes: [phone] Clinic For Medication Refills: If possible please notify us the beginning of the week for any Narcotic refills you may need if not coming in that week for an appointment. We attempt to fill them as soon as they come in but Dr. Aguilar is only in the clinic on . Please call your pharmacy to verify when to fish bait picker. Allow one week for refills, please do not let your prescription run out. We will call them in to the pharmacy of your request, using the one listed in your chart if not specified differently. You will not be contacted about the refill except for any questions or concerns. Please call your pharmacy to verify when to fish bait picker. All Paperwork: Please allow up to 2 weeks for all disability, FMLA, etc to be filled out. Please specify what your request is as to what and where we should send completed paperwork. (This is to inform us if we should send the completed papers to you or directly to your employer). Ligia or Karlene will work with Dr Aguilar to fill out this paperwork, and will only call to inform you the paperwork is completed and sent if requested. [facility] MY Chart: Please only use MYchart for non urgent needs. When sending a message to the provider, please know that these messages will be received and answered by the primary nurse practitioner. The nurse practitioner will consult your physician when needed. . Please call us with any questions or concerns that you may have. Please call if temperature is greater than 100.4 orally. Results for orders placed or performed in visit on 01/21/23 LACTATE DEHYDROGENASE Result Value Ref Range LD Total 128 100 - 190 U/L COMPREHENSIVE METABOLIC PANEL Result Value Ref Range Sodium 137 135 - 145 mmol/L Potassium 4.1 3.5 - 5.0 mmol/L Chloride 105 98 - 108 mmol/L BUN 23 7 - 25 mg/dL Creatinine 1.10 0.70 - 1.30 mg/dL Glucose 89 70 - 99 mg/dL Bilirubin Total 1.0 <1.5 mg/dL Albumin 3.9 3.5 - 5.0 g/dL Total Protein 6.5 6.4 - 8.3 g/dL AST 17 10 - 39 U/L ALP 65 32 - 126 U/L Calcium 9.1 8.6 - 10.5 mg/dL CO2 27 21 - 31 mmol/L ALT 13 10 - 52 U/L Bun/Crea Ratio 21 Osmolality (Calculated) 290 278 - 305 mOsm/kg Anion Gap 9 7 - 17 mmol/L eGFR, CKD-EPI, Male 67 >=60 mL/min/1.73m2 CBC AND ELECTRONIC DIFF Result Value Ref Range WBC Count 4.95 3.73 - 10.10 K/uL RBC Count 4.01 (L) 4.38 - 5.83 M/uL Hemoglobin 13.0 (L) 13.4 - 16.8 g/dL Hematocrit 37.7 (L) 39.6 - 48.8 % Mean Cell Volume 94.0 79.0 - 94.5 fL Mean Cell Hgb 32.4 26.1 - 33.3 pg Mean Cell Hgb Conc 34.5 31.9 - 36.5 g/dL RBC Distribution 12.7 10.9 - 14.3 % Platelet Count 144 (L) 146 - 337 K/uL Mean Platelet Volume 9.8 8.7 - 12.3 fL DIFF STATUS Electronic Differential Segs + Bands Auto 62.1 % Immature Grans % 0.2 % Lymphocyte % Auto 22.8 % Monocyte % Auto 10.3 % Eosinophil % Auto 4.0 % Basophil % Auto 0.6 % Nucleated RBC 0.0 <=0.2 /100 WBC Segs + Bands,Absolute Auto 3.07 1.57 - 6.19 K/uL Immature Grans Absolute <0.04 <=0.07 K/uL Abs Lymph Auto 1.13 0.83 - 3.57 K/uL Abs [place] Auto 0.51 0.24 - 0.93 K/uL Abs Eos Auto 0.20 0.00 - 0.48 K/uL Abs Baso Auto <0.04 0.00 - 0.09 K/uL documented in this encounter [facility] 01-09-2023 Note HNO ID: [id number] Author: Carmella Copeland MD Service: ? Author Type: Physician Type: Progress Notes Filed: 01/09/2023 11:35 AM Note Text: Chief Complaint Patient presents with: Balance: Not improving, ongoing issue HPI Christiano Sorensen is a 82 year old male who presents here today for balance. Pt of Dr. Robertson. Pt c/o balance/unsteadiness issues. Problem started acutely in Sep, he was hospitalized for one night, had workup including MRI that was unremarkable. He has been doing PT for this since Nov. Echo was WNL, Carotid US was <50% b/l and MRI normal. He had been doing better until one week ago when he again had acute worsening. He was walking into things, difficulty walking a straight line, is being extra cautious with position changes. He has been drinking more fluids to make sure he is not dehydrated, BP is ok with readings around 130/69 on . He finished his PT last week, had a balance test done by therapist who stated his balance was above average. Then last Wednesday he woke up and felt like he was back to [facility]. He was given dicyclomine to take for a month by Dr. Mathew for IBS but he stopped taking it thinking that the medication was affecting his balance. Stopping this has not helped. He can hear pulsating in his right ear at night; notes increased heart rate laying on his side, returns to normal on his back. Denies dizziness, just has difficulty walking in straight line.. Past medical history, appointments, medications, allergies reviewed. 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 Bright Benign non-nodular prostatic hyperplasia without lower urinary tract symptoms 10/23/2015 Bilateral carotid artery stenosis 10/07/[address] Rojas, US: 11/01/14 less than 50% bilaterally, no change 10/2015, no change 06/16/2017: bilaterally 20-40% Cardiac dysrhythmia, unspecified Chronic bronchitis (HCC) 10/09/2005 Chronic low back pain without sciatica 10/07/2015 Chronic pain syndrome 10/23/2015 for lymphoma pain and diverticulsis pain. On Neurontin 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 10/07/2015 Current use of proton pump inhibitor 11/11/2016 DDD (degenerative disc disease), lumbar 10/07/2015 Degeneration of lumbar or lumbosacral intervertebral disc Diaphragmatic hernia without mention of obstruction or gangrene Elevated fasting blood sugar 11/18/2017 Enlargement of lymph nodes Erectile dysfunction 10/07/2015 Family history of dementia 10/07/2015 GERD without esophagitis 10/07/[address] 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 pt to go see Dr. Francisco 05/2018 Palpitations 06/07/2018 Chronic, typically at night laying on his left side. W/U with event monitor in past was normal per cardio. past medical history skin cancer forehead--unsure which kind Primary insomnia 10/07/2015 Psoriasis Rosacea 11/11/2016 Subclavian artery stenosis, right (HCC) 06/17/2017 US 06/16/2017 50-99% Thrombocytopenia (HCC) 10/07/2015 Waldenstrom's macroglobulinemia (HCC) 10/07/2015 Previous Surgical History PAST SURGICAL HISTORY Procedure Laterality Date 2D ECHO (EXEP) 01/30/2014 EF=60%, LVH, no valve abnormalities COLONOSCOPY 09/21/2014 Dr. Bright, polyp, repeat 3 yrs COLONOSCOPY 02/17/2018 repeat 3 yrs, Dr. Bright COLONOSCOPY W/BIOPSY SINGLE/MULTIPLE 11/22/2007 ENDOSCOPY UPPER-EGD/M24 LAP, REVISION SIMA FUNDOPLASTY 03/20/[address] Layla VORA SURG CHOLECYSTECTOMY W/CHOLANGIOGRAPHY 04/12/2009 PAST SURGICAL HISTORY OF 11/2014 AAA repair PAST SURGICAL HISTORY OF 2016 both eyes cataract removal. PAST SURGICAL HISTORY OF 10/13/2017 right shoulder surgery per [facility]PR UMBILICAL HRNA 5 YRS/> REDUCIBLE 04/12/2009 STRESS TEST 02/27/2014 WNL Family History FAMILY HISTORY Problem Relation Age of Onset Multiple Sclerosis Brother living Colon Cancer Father 74 of metastatic brain CA Diabetes Father other (schiophrenia) Sister doing ok since e;ectroshock Alzheimer's Disease Mother Patient Allergies ALLERGIES Allergen Reactions Elavil [Amitriptyli* Other: See Comments Tired and depressed feeling Current Medications Current Outpatient Medications on File Prior to Visit Medication Sig fluticasone (FLONASE) 50 mcg/actuation nasal sp (more content not included)... [facility] 01-09-2023 History of Present illness Narrative Chief Complaint Patient presents with: Balance: Not improving, ongoing issue HPI Christiano Sorensen is a 82 year old male who presents here today for balance. Pt of Dr. Robertson. Pt c/o balance/unsteadiness issues. Problem started acutely in Sep, he was hospitalized for one night, had workup including MRI that was unremarkable. He has been doing PT for this since Nov. Echo was WNL, Carotid US was <50% b/l and MRI normal. He had been doing better until one week ago when he again had acute worsening. He was walking into things, difficulty walking a straight line, is being extra cautious with position changes. He has been drinking more fluids to make sure he is not dehydrated, BP is ok with readings around 130/69 on . He finished his PT last week, had a balance test done by therapist who stated his balance was above average. Then last Wednesday he woke up and felt like he was back to [facility]. He was given dicyclomine to take for a month by Dr. Mathew for IBS but he stopped taking it thinking that the medication was affecting his balance. Stopping this has not helped. He can hear pulsating in his right ear at night; notes increased heart rate laying on his side, returns to normal on his back. Denies dizziness, just has difficulty walking in straight line.. Past medical history, appointments, medications, allergies reviewed. 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 Bright Benign non-nodular prostatic hyperplasia without lower urinary tract symptoms 10/23/2015 Bilateral carotid artery stenosis 10/07/[address] Rojas, US: 11/01/14 less than 50% bilaterally, no change 10/2015, no change 06/16/2017: bilaterally 20-40% Cardiac dysrhythmia, unspecified Chronic bronchitis (HCC) 10/09/2005 Chronic low back pain without sciatica 10/07/2015 Chronic pain syndrome 10/23/2015 for lymphoma pain and diverticulsis pain. On Neurontin 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 10/07/2015 Current use of proton pump inhibitor 11/11/2016 DDD (degenerative disc disease), lumbar 10/07/2015 Degeneration of lumbar or lumbosacral intervertebral disc Diaphragmatic hernia without mention of obstruction or gangrene Elevated fasting blood sugar 11/18/2017 Enlargement of lymph nodes Erectile dysfunction 10/07/2015 Family history of dementia 10/07/2015 GERD without esophagitis 10/07/[address] 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 pt to go see Dr. Francisco 05/2018 Palpitations 06/07/2018 Chronic, typically at night laying on his left side. W/U with event monitor in past was normal per cardio. past medical history skin cancer forehead--unsure which kind Primary insomnia 10/07/2015 Psoriasis Rosacea 11/11/2016 Subclavian artery stenosis, right (HCC) 06/17/2017 US 06/16/2017 50-99% Thrombocytopenia (HCC) 10/07/2015 Waldenstrom's macroglobulinemia (HCC) 10/07/2015 Previous Surgical History PAST SURGICAL HISTORY Procedure Laterality Date 2D ECHO (EXEP) 01/30/2014 EF=60%, LVH, no valve abnormalities COLONOSCOPY 09/21/2014 Dr. Bright, polyp, repeat 3 yrs COLONOSCOPY 02/17/2018 repeat 3 yrs, Dr. Bright COLONOSCOPY W/BIOPSY SINGLE/MULTIPLE 11/22/2007 ENDOSCOPY UPPER-EGD/M24 LAP, REVISION SIMA FUNDOPLASTY 03/20/[address] Rcih LAPS SURG CHOLECYSTECTOMY W/CHOLANGIOGRAPHY 04/12/2009 PAST SURGICAL HISTORY OF 11/2014 AAA repair PAST SURGICAL HISTORY OF 2015 both eyes cataract removal. PAST SURGICAL HISTORY OF 10/13/2017 right shoulder surgery per [facility] RPR UMBILICAL HRNA 5 YRS/> REDUCIBLE 04/12/2009 STRESS TEST 02/27/2014 WNL Family History FAMILY HISTORY Problem Relation Age of Onset Multiple Sclerosis Brother living Colon Cancer Father 74 of metastatic brain CA Diabetes Father other (schiophrenia) Sister doing ok since e;ectroshock Alzheimer's Disease Mother Patient Allergies ALLERGIES Allergen Reactions Elavil [Amitriptyli* Other: See Comments Tired and depressed feeling Current Medications Current Outpatient Medications on File Prior to Visit Medication Sig fluticasone (FLONASE) 50 mcg/actuation nasal spray Use 2 Sprays in each nostril once daily. Rinse mouth after use. rosuvastatin (CRESTOR) 20 mg tablet Take 1 tablet by mouth once daily. omeprazole (PRILOSEC) 10 mg capsule Take 1 capsule by mouth once daily. metroNIDAZOLE (METROGEL) 1 % Topical Gel Apply 1 application to affected area once daily. Location: face albuterol HFA (PROAIR HFA) 90 mcg/actuation inhaler Inhale 2 Puffs as instructed every 6 hours as needed. No current facility-administered medications on file prior to visit. Social History Social History Tobacco Use Smoking status: Former Packs/day: 1.00 Years: 8.00 Additional pack years: 0.00 Total pack years: 8.00 Types: Cigarettes Quit date: 02/15/1974 Years since quittin.9 Smokeless tobacco: Never Tobacco comments: NO EXPOSURE TO 2ND HAND SMOKE Vaping Use Vaping Use: Never used Substance Use Topics Alcohol use: Yes Comment: occasionally Drug use: No EXAM: BP 120/60 Pulse 62 Resp 16 Wt 80.6 kg (177 lb 11.2 oz) SpO2 97% BMI 24.44 kg/m General Appearance: Well appearing, alert, in no acute distress, well-hydrated, well nourished.. Neck: Supple, no adenopathy; thyroid symmetric, normal size, no bruits. Lungs: Lungs clear to auscultation. No wheezing, rhonchi, rales.. Heart: RRR without murmur, gallop, or rubs. No ectopy. Health Maintenance List RSV Vaccine(1 - 1-dose 60+ series) Never done Influenza Vaccine(1) due on 10/16/2022 Covid-19 Vaccine(4 - 2022-24 season) due on 10/16/2022 DTaP,Tdap,Td Vaccine(2 - Td or Tdap) due on 04/06/2023 LDL Cholesterol due on 10/04/2023 Diabetes Screening due on 10/27/2025 Advance Directive Discussion Completed Depression Assessment Completed Shingrix Vaccine Completed Pneumococcal Vaccine: 65+ Completed HPV Vaccine Aged Out Colorectal Cancer Screening Discontinued Data reviewed None ASSESSMENT/PLAN: 1. Need for influenza vaccination - ICD9: V04.81, ICD10: Z23 (primary diagnosis) - INFLUENZA VACCINE, PRSV FREE, AGE 65+ YR, HIGH DOSE, QUADRIVALENT (FLUZONE HIGH-DOSE) 2. Unsteady gait - ICD9: 781.2, ICD10: R26.81 With acute worsening will get repeat MRI, Neuro consult - MRI BRAIN WO/W IVCON - IV CONTRAST (RADIOLOGY PROCEDURE) - CONSULT TO NEUROLOGY Follow up prn I agree with the Chief Complaint, ROS, and Past Histories independently gathered by the clinical client support associate and the remaining scribed note accurately describes my personal service to the patient. Medical Decision Making: Problems: Moderate: Acute illness with systemic symptoms Data: Unique source(s) for external note(s) reviewed: 1 Unique test(s) ordered: 2 Medical Decision Making Level: 4 - Moderate Carmella Copeland MD The documentation for this note was completed by Billie Torres Ma acting as scribe for Carmella Copeland MD. January 09, 2023 10:54 AM. Billie Torres Ma documented in this encounter [facility] 01-08-2023 Miscellaneous Notes Noted. Spoke with pt. No openings today. Pt does not want to go to ER. Advises that he was at [facility] ER 2-3 months ago and they did MRI and checked his carotid arteries and everything was normal. Pt advises he had been doing better and had PT on Th and then on Sat he relapsed with sx as described below. Pt states sx weren't/aren't as bad as when he went to ER. Advises he was told to drink more d/t could be from dehydration. States he will drink more fluids. States bp has been ok. Yesterday it was 130/69. Did speak with Dr Copeland's office and was able to schedule pt with Dr Copeland tomorrow, 01/09, at 11 am. Pt agreeable to appointment. Pt aware that if sx change, become worse or anything else out of the ordinary to go to ER. Meg Rosa LPN Received message from PHYSICAL THERAPY that patient c/o of sudden change in his unsteadiness. Walking into things, having a hard time walking in a straight line, and even was extra cautious to take his time when changing positions. Patient needs seen VIELKA or directed to ER. documented in this encounter [facility] 01-05-2023 Note HNO ID: [id number] Author: Lino Cervantes PT Service: ? Author Type: Physical Therapist Type: Progress Notes Filed: 01/06/2023 2:46 PM Note Text: Episode Visit Count: 6 Therapist That Will Accept/Oversee The Plan Of Care: Lino Cervantes PT. Start of Care Date: 11/16/22 Onset Date: 09/15/22 Plan of Care Certification Date: 12/31/22 Next Certification Due Date: 02/04/23 Patient Identified by Name and Date of : Yes REHABILITATION AND SPORTS THERAPY PHYSICAL THERAPY DISCONTINUANCE OF CARE PLAN OF CARE UPDATE: Assessment: Christiano Sorensen is discontinued from Physical Therapy services due to goal achievement., maximal benefit., and sudden change in physical function . Patient was seen for 6 visits from Start of Care Date: 11/16/22 to 01/05/2023 and treatment included: Therapeutic exercise, Neuromuscular re-education, and Self-intermediate management. Sudden change in the patients physical function over the past 5 days suggest that not appropriate for PHYSICAL THERAPY at this time and doubtful therapy will lead to change in condition in the future. Patient educated and advised to return to referring physician for second opinion about overall chief complaint and deficits in physical function. Goals for Episode of Care: UPDATED on 12/31/22. Goals for Episode of Care: created on 11/16/22 through 01/05/23 Patient will report no falls. -Progressing. [place] in home exercise program. -MET Normal gait/stair navigation and reduction of gait deviations. -Progressing Reciprocal stair negotiation. -Progressing Improve tandem balancing to 10 seconds and SL static balance to >5 sec bilaterally. -MET for tandem, progressing for SL stance. Improve score on 30 Second Chair Stand to 14 repetitions with INCREASED CONTROL to reflect decreased fall risk. -MET Improve score on 5xSTS to <12 seconds with INCREASED CONTROL to reflect decreased fall risk. -MET Improve performance on Dynamic Gait Index to >22 to reflect decreased fall Risk. -MET. Patient Goals: Improve balance and unsteadiness. SUBJECTIVE: Pt. reports on Wednesday he woke up and was stumbling around and overall off balance; reports he hasn't stabilized since then and was even bouncing off the rawls at work this afternoon. No falls overall. Patient states he has a hard time walking in a straight line, and even was extra cautious to take his time when changing positions. Pain: Pain Pain Level: 0 Post Treatment Pain Post Treatment Pain Level: 0 PROMIS Scales Higher is Better 12/31/2022 12/10/2022 12/03/2022 Phys Func - Score 38 (moderate dysfunction) - 41 (mild dysfunction) Phys Func - Percentile 12 % - 18 % Self-Eff Symptom - Score - 42 (Average) - Self-Eff Symptom - Percentile - 21 % - T-scores: mean of general population = 50. 5 points is clinically meaningfully difference Percentiles provide an indication of how the patient's score ranks in relation to the general population. Higher percentile rankings indicate better function/quality of life. 50th percentile is the average of the general population and indicates half of respondents had a worse score. OBJECTIVE MEASURES WITH LEVEL OF FUNCTION: Patient denies double vision, dizziness, dysarthria, dysphagia, drop attacks, nausea, and numbness. Gaze-Evoked Nystagmus assessment - Negative Smooth Pursuit Assessment - Negative Saccades Assessment - Negative TREATMENT: Therapeutic Exercise: 1: Sci-Fit: 6 Minutes, Level 3.0 (direct 1:1 contact AND subjective taken.) 2: *Hip ABD: 1x10, 5 holds, BTB. 3: *Hip ADD: 1x10, 5 hold. 4: *Seated LAQ: 1x10. 5: *Seated Hip Alt. Marches: 1x10, BTB. 6: *Discussed overall HEP for continued gross strengthening and active lifestyle - handout provided. Discussed safety during completion of exercises by not completing if any lightheadness/dizziness or other fall risk symptoms and always completing by a counter top. 7: *Objective Measures Collected this date* Skilled Intervention: Patient was educated in proper exercise technique and purpose for exercises. Reviewed and educated patient on additions/changes for home exercise program as above (*). Skilled judgment was used in selection of appropriate interventions. Provided written instruction for home exercise program to facilitate proper performance and compliance. Correct performance of therapeutic exercises was facilitated with verbal, visual, and tactile cuing. Self-Group Home Management: 1: *Discussed patients sudden change in condition in the past 5 days with him; discussed how decreased physical function in that acute amount of time despite continuing active lifestyle suggests something else going on and how symptoms do not seem as MSK or vestibular in nature and thus warrant being seen by referring provider for possible cardiac vs. neurologic workup. Discussed how PT will not be able to overall help with this change in condition and it se (more content not included)... [facility] 01-05-2023 History of Present illness Narrative Program_ID:[id number] Access Code: [email or web address] URL: [email or web address] Date: 01-05-2023 Prepared By: Lino Cervantes Program Notes Exercises - Supine Bridge - 1-2 x daily - 5 x weekly - 2 - 10 - Supine Active Straight Leg Raise - 1-2 x daily - 5 x weekly - 2 - 10 - Standing Hip Extension with Counter Support - 1-2 x daily - 5 x weekly - 2 - 10 - Standing Hip Abduction with Counter Support - 1-2 x daily - 5 x weekly - 2 - 10 - Standing Hip Flexion with Counter Support - 1-2 x daily - 5 x weekly - 2 - 10 - Mini Squat with Counter Support - 1-2 x daily - 5 x weekly - 2 - 10 - Heel Raises with Counter Support - 1-2 x daily - 5 x weekly - 2 - 10-20 - Standing March with Counter Support - 1-2 x daily - 5 x weekly - 2 - 10-20 - Seated Long Arc Quad - 2 x daily - 7 x weekly - 2-3 - 10 - Seated Hip Abduction with Resistance - 1-2 x daily - 5 x weekly - 2 - 10 - Seated Isometric Hip Adduction with Pelvic Floor Contraction - 1-2 x daily - 5 x weekly - 2 - 10 Episode Visit Count: 6 Therapist That Will Accept/Oversee The Plan Of Care: Lino Cervantes PT. Start of Care Date: 11/16/22 Onset Date: 09/15/22 Plan of Care Certification Date: 12/31/22 Next Certification Due Date: 02/04/23 Patient Identified by Name and Date of : Yes REHABILITATION AND SPORTS THERAPY PHYSICAL THERAPY DISCONTINUANCE OF CARE PLAN OF CARE UPDATE: Assessment: Christiano Sorensen is discontinued from Physical Therapy services due to goal achievement., maximal benefit., and sudden change in physical function . Patient was seen for 6 visits from Start of Care Date: 11/16/22 to 01/05/2023 and treatment included: Therapeutic exercise, Neuromuscular re-education, and Self-intermediate management. Sudden change in the patients physical function over the past 5 days suggest that not appropriate for PHYSICAL THERAPY at this time and doubtful therapy will lead to change in condition in the future. Patient educated and advised to return to referring physician for second opinion about overall chief complaint and deficits in physical function. Goals for Episode of Care: UPDATED on 12/31/22. Goals for Episode of Care: created on 11/16/22 through 01/05/23 Patient will report no falls. -Progressing. [place] in home exercise program. -MET Normal gait/stair navigation and reduction of gait deviations. -Progressing Reciprocal stair negotiation. -Progressing Improve tandem balancing to 10 seconds and SL static balance to >5 sec bilaterally. -MET for tandem, progressing for SL stance. Improve score on 30 Second Chair Stand to 14 repetitions with INCREASED CONTROL to reflect decreased fall risk. -MET Improve score on 5xSTS to <12 seconds with INCREASED CONTROL to reflect decreased fall risk. -MET Improve performance on Dynamic Gait Index to >22 to reflect decreased fall Risk. -MET. Patient Goals: Improve balance and unsteadiness. SUBJECTIVE: Pt. reports on Wednesday he woke up and was stumbling around and overall off balance; reports he hasn't stabilized since then and was even bouncing off the rawls at work this afternoon. No falls overall. Patient states he has a hard time walking in a straight line, and even was extra cautious to take his time when changing positions. Pain: Pain Pain Level: 0 Post Treatment Pain Post Treatment Pain Level: 0 PROMIS Scales Higher is Better 12/31/2022 12/10/2022 12/03/2022 Phys Func - Score 38 (moderate dysfunction) - 41 (mild dysfunction) Phys Func - Percentile 12 % - 18 % Self-Eff Symptom - Score - 42 (Average) - Self-Eff Symptom - Percentile - 21 % - T-scores: mean of general population = 50. 5 points is clinically meaningfully difference Percentiles provide an indication of how the patient's score ranks in relation to the general population. Higher percentile rankings indicate better function/quality of life. 50th percentile is the average of the general population and indicates half of respondents had a worse score. OBJECTIVE MEASURES WITH LEVEL OF FUNCTION: Patient denies double vision, dizziness, dysarthria, dysphagia, drop attacks, nausea, and numbness. Gaze-Evoked Nystagmus assessment - Negative Smooth Pursuit Assessment - Negative Saccades Assessment - Negative TREATMENT: Therapeutic Exercise: 1: Sci-Fit: 6 Minutes, Level 3.0 (direct 1:1 contact & subjective taken.) 2: *Hip ABD: 1x10, 5 holds, BTB. 3: *Hip ADD: 1x10, 5 hold. 4: *Seated LAQ: 1x10. 5: *Seated Hip Alt. Marches: 1x10, BTB. 6: *Discussed overall HEP for continued gross strengthening and active lifestyle - handout provided. Discussed safety during completion of exercises by not completing if any lightheadness/dizziness or other fall risk symptoms and always completing by a counter top. 7: *Objective Measures Collected this date* Skilled Intervention: Patient was educated in proper exercise technique and purpose for exercises. Reviewed and educated patient on additions/changes for home exercise program as above (*). Skilled judgment was used in selection of appropriate interventions. Provided written instruction for home exercise program to facilitate proper performance and compliance. Correct performance of therapeutic exercises was facilitated with verbal, visual, and tactile cuing. Self-Group Home Management: 1: *Discussed patients sudden change in condition in the past 5 days with him; discussed how decreased physical function in that acute amount of time despite continuing active lifestyle suggests something else going on and how symptoms do not seem as MSK or vestibular in nature and thus warrant being seen by referring provider for possible cardiac vs. neurologic workup. Discussed how PT will not be able to overall help with this change in condition and it seems in the therapists professional judgement outside of the PT scope. Advised patient to reach out to referring provider. Patient in agreeance of everything stated about as well as discharge from PT this date. Skilled Intervention: Skilled judgment in the selection of proper modification for activity of daily living/home management based on clinical presentation, deficits, and needs. Reviewed patient specific diagnosis in relation to activities of daily living/home management. Activity progression based on professional judgement. Patient education as noted. Billing Therapeutic Exercise Treatment Minutes: 25 Self-Care/Home Management Treatment Minutes: 15 Skilled Treatment Time Minutes (timed and untimed codes): 40 Total Session Time (minutes): 40 Session Start Time : 1530 Session Stop Time : 1610 Lino Cervantes PT documented in this encounter [facility] 12-31-2022 Note HNO ID: [id number] Author: Lino Cervantes PT Service: ? Author Type: Physical Therapist Type: Progress Notes Filed: 12/31/2022 5:22 PM Note Text: Episode Visit Count: 5 Therapist That Will Accept/Oversee The Plan Of Care: Lino Cervantes PT. Start of Care Date: 11/16/22 Onset Date: 09/15/22 Plan of Care Certification Date: 12/31/22 Next Certification Due Date: 02/04/23 Patient Identified by Name and Date of : Yes REHABILITATION AND SPORTS THERAPY PHYSICAL THERAPY PROGRESS REPORT PLAN OF CARE UPDATE: Assessment: Christiano Sorensen demonstrates moderate improvement in overall balance. He has progressed toward goals. Patient continues to present with impairments in balance, gait, stair navigation, independence in exercise, overall function, and functional performance testing indicates risk for falls that interfere with stair negotiation, rising from a chair, walking in the community . Current prognosis is Excellent due to: current objective clinical presentation, good overall health status, positive past response to therapy, within-session changes .He will benefit from continued skilled therapy services to meet the updated goals for this plan of care as noted below. Goals for Episode of Care: created on 12/31/22. Goals for Episode of Care: created on 11/16/22 through 01/05/23 Patient will report no falls. -Progressing. [place] in home exercise program. -MET Normal gait/stair navigation and reduction of gait deviations. -Progressing Reciprocal stair negotiation. -Progressing Improve tandem balancing to 10 seconds and SL static balance to >5 sec bilaterally. -MET for tandem, progressing for SL stance. Improve score on 30 Second Chair Stand to 14 repetitions with INCREASED CONTROL to reflect decreased fall risk. -MET Improve score on 5xSTS to <12 seconds with INCREASED CONTROL to reflect decreased fall risk. -MET Improve performance on Dynamic Gait Index to >22 to reflect decreased fall Risk. -MET. Patient Goals: Improve balance and unsteadiness. Planned Interventions, Frequency, and Duration: 1 visit (1 Visit Next Week for HEP Intervention Progression for Home Maintenance of Overall Function), 1 week Total Number of Visits Planned: 1 Patient to be seen for Therapeutic exercise (98699), Manual therapy (01694), Neuromuscular re-education (74297), Therapeutic activities (49649), Self-intermediate management (12596), Gait Training (14040), Patient/Family/Caregiver Education, Body Mechanics Training, Functional training, General Conditioning PLAN FOR NEXT VISIT: Discharge for home maintenance with higher-level strengthening exercises due to goal achievement. SUBJECTIVE: Pt. reports about the same consistent unsteady episodes; states 3-5 episodes a day. Anytime he gets up at night to walk or walks down the ayala at the office. Notes soreness with exercises still. Went to [facility] Wednesday and had trouble navigating stairs ivone. descending. Functional Limitations: stair negotiation, rising from a chair, walking in the community Pain: Pain Pain Level: 0 Post Treatment Pain Post Treatment Pain Level: 0 PROMIS Scales Higher is Better 12/31/2022 12/10/2022 12/03/2022 Phys Func - Score 38 (moderate dysfunction) - 41 (mild dysfunction) Phys Func - Percentile 12 % - 18 % Self-Eff Symptom - Score - 42 (Average) - Self-Eff Symptom - Percentile - 21 % - T-scores: mean of general population = 50. 5 points is clinically meaningfully difference Percentiles provide an indication of how the patient's score ranks in relation to the general population. Higher percentile rankings indicate better function/quality of life. 50th percentile is the average of the general population and indicates half of respondents had a worse score. OBJECTIVE MEASURES WITH LEVEL OF FUNCTION: LE Strength R LE Strength: Grossly 5/5, no asymmetrical weakness detected. L LE Strength: Grossly 5/5, no asymmetrical weakness detected. Gait Weight Bearing Status: FWB Gait: Independent Gait Device: None Functional Performance Test Results Assistive Device: None 30 Second Chair Stand Test: 14 reps 5 Times Sit to Stand Test : 10.64 sec Timed Up and Go (sec): 7.23 sec 4 Stage Balance Test Narrow base of support (sec): 60 sec (60 w/ eyes closed.) Semi-tandem base of support (sec): 60 sec Tandem base of support (sec): 15.5 sec Single leg stance - right (sec): 2.2 sec Single leg stance - left (sec): 7.4 sec Dynamic Gait Index Gait level surface : 3 - Normal- walks 20' no assist device, good speed, no imbalance, normal gait pattern Change in gait speed: 3 - Normal- able to smoothly change walking speed without loss of balance or gait deivations. Shows significant difference in walking speeds Gait and horizontal head turns: 2 - Mild impairment- performs R/L head turns smoothly with slight change in gait velocity, minor disruption to smooth gait path or us (more content not included)... [facility] 12-31-2022 History of Present illness Narrative Episode Visit Count: 5 Therapist That Will Accept/Oversee The Plan Of Care: Lino Cervantes PT. Start of Care Date: 11/16/22 Onset Date: 09/15/22 Plan of Care Certification Date: 12/31/22 Next Certification Due Date: 02/04/23 Patient Identified by Name and Date of : Yes REHABILITATION AND SPORTS THERAPY PHYSICAL THERAPY PROGRESS REPORT PLAN OF CARE UPDATE: Assessment: Christiano Sorensen demonstrates moderate improvement in overall balance. He has progressed toward goals. Patient continues to present with impairments in balance, gait, stair navigation, independence in exercise, overall function, and functional performance testing indicates risk for falls that interfere with stair negotiation, rising from a chair, walking in the community . Current prognosis is Excellent due to: current objective clinical presentation, good overall health status, positive past response to therapy, within-session changes .He will benefit from continued skilled therapy services to meet the updated goals for this plan of care as noted below. Goals for Episode of Care: created on 12/31/22. Goals for Episode of Care: created on 11/16/22 through 01/05/23 Patient will report no falls. -Progressing. [place] in home exercise program. -MET Normal gait/stair navigation and reduction of gait deviations. -Progressing Reciprocal stair negotiation. -Progressing Improve tandem balancing to 10 seconds and SL static balance to >5 sec bilaterally. -MET for tandem, progressing for SL stance. Improve score on 30 Second Chair Stand to 14 repetitions with INCREASED CONTROL to reflect decreased fall risk. -MET Improve score on 5xSTS to <12 seconds with INCREASED CONTROL to reflect decreased fall risk. -MET Improve performance on Dynamic Gait Index to >22 to reflect decreased fall Risk. -MET. Patient Goals: Improve balance and unsteadiness. Planned Interventions, Frequency, and Duration: 1 visit (1 Visit Next Week for HEP Intervention Progression for Home Maintenance of Overall Function), 1 week Total Number of Visits Planned: 1 Patient to be seen for Therapeutic exercise (85600), Manual therapy (91419), Neuromuscular re-education (32072), Therapeutic activities (50359), Self-intermediate management (14534), Gait Training (17424), Patient/Family/Caregiver Education, Body Mechanics Training, Functional training, General Conditioning PLAN FOR NEXT VISIT: Discharge for home maintenance with higher-level strengthening exercises due to goal achievement. SUBJECTIVE: Pt. reports about the same consistent unsteady episodes; states 3-5 episodes a day. Anytime he gets up at night to walk or walks down the ay[place] at the office. Notes soreness with exercises still. Went to [facility] Wednesday and had trouble navigating stairs ivone. descending. Functional Limitations: stair negotiation, rising from a chair, walking in the community Pain: Pain Pain Level: 0 Post Treatment Pain Post Treatment Pain Level: 0 PROMIS Scales Higher is Better 12/31/2022 12/10/2022 12/03/2022 Phys Func - Score 38 (moderate dysfunction) - 41 (mild dysfunction) Phys Func - Percentile 12 % - 18 % Self-Eff Symptom - Score - 42 (Average) - Self-Eff Symptom - Percentile - 21 % - T-scores: mean of general population = 50. 5 points is clinically meaningfully difference Percentiles provide an indication of how the patient's score ranks in relation to the general population. Higher percentile rankings indicate better function/quality of life. 50th percentile is the average of the general population and indicates half of respondents had a worse score. OBJECTIVE MEASURES WITH LEVEL OF FUNCTION: LE Strength R LE Strength: Grossly 5/5, no asymmetrical weakness detected. L LE Strength: Grossly 5/5, no asymmetrical weakness detected. Gait Weight Bearing Status: FWB Gait: Independent Gait Device: None Functional Performance Test Results Assistive Device: None 30 Second Chair Stand Test: 14 reps 5 Times Sit to Stand Test : 10.64 sec Timed Up and Go (sec): 7.23 sec 4 Stage Balance Test Narrow base of support (sec): 60 sec (60 w/ eyes closed.) Semi-tandem base of support (sec): 60 sec Tandem base of support (sec): 15.5 sec Single leg stance - right (sec): 2.2 sec Single leg stance - left (sec): 7.4 sec Dynamic Gait Index Gait level surface : 3 - Normal- walks 20' no assist device, good speed, no imbalance, normal gait pattern Change in gait speed: 3 - Normal- able to smoothly change walking speed without loss of balance or gait deivations. Shows significant difference in walking speeds Gait and horizontal head turns: 2 - Mild impairment- performs R/L head turns smoothly with slight change in gait velocity, minor disruption to smooth gait path or uses assistive device Gait and vertical head turns: 2 - Mild impairment- performs up/ down head turns smoothly with slight change in gait velocity, minor disruption to smooth gait path or uses assistive device Gait and pivot: 3 - Normal- pivot turn safely within 3 sec, stops quickly, no loss of balance Step over obstacle: 3 - Normal- is able to step over box without changing speed, no evidence of imbalance Step around obstacle: 3 - Normal- able to walk around cones safely without changing gait speed, no evidence of imbalance Steps: 3 - Normal- alternating feet, no rail Dynamic Gait Index Total: 22 TREATMENT: Therapeutic Exercise: 1: Sci-Fit: 6 Minutes, Level 3.0 (direct 1:1 contact & subjective taken.) 2: Xkl-[id number]: 2x10 without use of hands. 3: *Progress check and objective measures collected. 4: *Discussed current POC, overall objective findings and compared outcome measure scores collected this date vs. previous eval scores and overall normative values. Discussed his decrease in overall fall risk vs. previous findings. Discussed taking his time while changing positions for increased steadiness. 5: *Continued to advise patient in importance of completion of HEP and active lifestyle. Skilled Intervention: Patient was educated in proper exercise technique and purpose for exercises. Skilled judgment was used in selection of appropriate interventions. Correct performance of therapeutic exercises was facilitated with verbal, visual, and tactile cuing. Patient education as noted. Billing Therapeutic Exercise Treatment Minutes: 40 Skilled Treatment Time Minutes (timed and untimed codes): 40 Total Session Time (minutes): 40 Session Start Time : 1615 Session Stop Time : 1655 Lino Cervantes PT documented in this encounter [facility] 12-15-2022 Note HNO ID: [id number] Author: Lino Cervantes PT Service: ? Author Type: Physical Therapist Type: Progress Notes Filed: 12/15/2022 4:13 PM Note Text: Episode Visit Count: 4 Therapist That Will Accept/Oversee The Plan Of Care: Lino Cervantes PT. Start of Care Date: 11/16/22 Onset Date: 09/15/22 Plan of Care Certification Date: 11/17/22 Next Certification Due Date: 12/22/22 Patient Identified by Name and Date of : Yes REHABILITATION AND SPORTS THERAPY PHYSICAL THERAPY TREATMENT NOTE ASSESSMENT: Christiano Sorensen tolerated the session with fatigue and expected muscle soreness. He demonstrated challenged with airex interventions due to balance deficits. The patient will continue to benefit from ongoing skilled physical therapy to progress toward set goals. PLAN FOR NEXT VISIT: Continuation of balance intervention progressions; B LE conditioning AND strengthening as able. SUBJECTIVE: Pt. reports less unsteady episodes; reports more unsteady episodes when he is tired. Notes appropriate muscle soreness following last session. Pain: Pain Pain Level: 0 Post Treatment Pain Post Treatment Pain Level: 0 OBJECTIVE MEASURES WITH LEVEL OF FUNCTION: SBA AND CGA throughout. Patient with a couple LOB while on airex requiring PT assist to regain control. TREATMENT: Therapeutic Exercise: 1: Sci-Fit: 6 Minutes, Level 2.0 (direct 1:1 contact AND subjective taken.) 2: Dbl Leg Press: 2x12, 64#. 3: [id number]: 2x10 without use of hands. Skilled Intervention: Patient was educated in proper exercise technique and purpose for exercises. Skilled judgment was used in selection of appropriate interventions. Correct performance of therapeutic exercises was facilitated with verbal and visual cuing. Neuromuscular Re-Education: 1: Plyo Bounce Back Tosses: 3x40 , Feet Together on Airex. 2: Plyo Bounce Back Tosses: 3x25 , Feet Semi-Tandem on Airex. 3: Airex Step-Ups: 2x10 ea. leg. 4: Airex Alt. Marchinx10 ea. leg. 5: Airex Staic Standing Neutral DALE w/ pertubations: 3x30 . Skilled Intervention: Skilled judgment used to assess appropriate program for balance and coordination activity. Ensured patient safety with use of gait belt and SBA/CGA. Billing Therapeutic Exercise Treatment Minutes: 13 Neuromuscular Re-Education Treatment Minutes: 26 Skilled Treatment Time Minutes (timed and untimed codes): 39 Total Session Time (minutes): 39 Session Start Time : 1529 Session Stop Time : 1608 Lino Cervantes PT [facility] 12-10-2022 Note HNO ID: [id number] Author: Lino Cervantes PT Service: ? Author Type: Physical Therapist Type: Progress Notes Filed: 12/10/2022 5:00 PM Note Text: Episode Visit Count: 3 Therapist That Will Accept/Oversee The Plan Of Care: Lino Cervantes PT. Start of Care Date: 11/16/22 Onset Date: 09/15/22 Plan of Care Certification Date: 11/17/22 Next Certification Due Date: 12/22/22 Patient Identified by Name and Date of : Yes REHABILITATION AND SPORTS THERAPY PHYSICAL THERAPY TREATMENT NOTE ASSESSMENT: Christiano Sorensen tolerated the session with fatigue, expected muscle soreness, and no issues. He demonstrated difficulty and increase in challenge with lateral walking on airex balance beam and forward airex pad step-ups. The patient will continue to benefit from ongoing skilled physical therapy to progress toward set goals. PLAN FOR NEXT VISIT: Progressions of balance; work on [id number] then proceeding to walk and navigate objects. SUBJECTIVE: Patient reports last session was a good workout, had about 1-2 days of soreness; states non-compliance with HEP this past week. States a couple unsteady episodes during walking following getting out of a chair, but not as bad as it was . Pain: Pain Pain Level: 0 Post Treatment Pain Post Treatment Pain Level: 0 OBJECTIVE MEASURES WITH LEVEL OF FUNCTION: Single LOB during left lower extremity forward step-ups requiring therapist to assist with regaining COG and stability. SBA and CGA throughout session. TREATMENT: Therapeutic Exercise: 1: Sci-Fit: 5 Minutes, Level 2.0 (Direct 1:1 contact and subjective taken.) 2: Lateral Steps ups: 1x15 ea leg, blue box. 3: Fwd Steps ups: 2x12 ea. leg, blue+green box. 4: Lsw-mx-[id number]: 2x10 without use of hands. 5: [place] Carry: 10#db each hand: 1x200 feet 6: *Education on the importance of HEP compliance. Skilled Intervention: Patient was educated in proper exercise technique and purpose for exercises. Skilled judgment was used in selection of appropriate interventions. Correct performance of therapeutic exercises was facilitated with verbal, visual, and tactile cuing. Neuromuscular Re-Education: 1: Plyo Bounce Back Tosses: 2x30 , Feet Apart on Airex. 2: Plyo Bounce Back Tosses: 2x30 , Feet Together on Airex. 3: Airex Step-Ups: 2x10 ea. leg. 4: Airex Balance Beam Lateral Walkin Laps of [address] Skilled Intervention: Skilled judgment used to assess appropriate program for balance and coordination activity. Ensured patient safety with use of gait belt and stand-by assistance guarding. Billing Therapeutic Exercise Treatment Minutes: 24 Neuromuscular Re-Education Treatment Minutes: 16 Skilled Treatment Time Minutes (timed and untimed codes): 40 Total Session Time (minutes): 40 Session Start Time : 1615 Session Stop Time : 1655 Lino Cervantes PT [facility] 12-10-2022 History of Present illness Narrative Episode Visit Count: 3 Therapist That Will Accept/Oversee The Plan Of Care: Lino Cervantes PT. Start of Care Date: 11/16/22 Onset Date: 09/15/22 Plan of Care Certification Date: 11/17/22 Next Certification Due Date: 12/22/22 Patient Identified by Name and Date of : Yes REHABILITATION AND SPORTS THERAPY PHYSICAL THERAPY TREATMENT NOTE ASSESSMENT: Christiano Sorensen tolerated the session with fatigue, expected muscle soreness, and no issues. He demonstrated difficulty and increase in challenge with lateral walking on airex balance beam and forward airex pad step-ups. The patient will continue to benefit from ongoing skilled physical therapy to progress toward set goals. PLAN FOR NEXT VISIT: Progressions of balance; work on [id number]-ui-[id number] then proceeding to walk and navigate objects. SUBJECTIVE: Patient reports last session was a good workout, had about 1-2 days of soreness; states non-compliance with HEP this past week. States a couple unsteady episodes during walking following getting out of a chair, but not as bad as it was . Pain: Pain Pain Level: 0 Post Treatment Pain Post Treatment Pain Level: 0 OBJECTIVE MEASURES WITH LEVEL OF FUNCTION: Single LOB during left lower extremity forward step-ups requiring therapist to assist with regaining COG and stability. SBA and CGA throughout session. TREATMENT: Therapeutic Exercise: 1: Sci-Fit: 5 Minutes, Level 2.0 (Direct 1:1 contact and subjective taken.) 2: Lateral Steps ups: 1x15 ea leg, blue box. 3: Fwd Steps ups: 2x12 ea. leg, blue+green box. 4: [id number]: 2x10 without use of hands. 5: [place] Carry: 10#db each hand: 1x200 feet 6: *Education on the importance of HEP compliance. Skilled Intervention: Patient was educated in proper exercise technique and purpose for exercises. Skilled judgment was used in selection of appropriate interventions. Correct performance of therapeutic exercises was facilitated with verbal, visual, and tactile cuing. Neuromuscular Re-Education: 1: Plyo Bounce Back Tosses: 2x30 , Feet Apart on Airex. 2: Plyo Bounce Back Tosses: 2x30 , Feet Together on Airex. 3: Airex Step-Ups: 2x10 ea. leg. 4: Airex Balance Beam Lateral Walkin Laps of [address] Skilled Intervention: Skilled judgment used to assess appropriate program for balance and coordination activity. Ensured patient safety with use of gait belt and stand-by assistance guarding. Billing Therapeutic Exercise Treatment Minutes: 24 Neuromuscular Re-Education Treatment Minutes: 16 Skilled Treatment Time Minutes (timed and untimed codes): 40 Total Session Time (minutes): 40 Session Start Time : 5 Session Stop Time : 1654 Lino Cervantes PT documented in this encounter [facility] 12-03-2022 Note HNO ID: [id number] Author: Lino Cervantes PT Service: ? Author Type: Physical Therapist Type: Progress Notes Filed: 12/03/2022 6:47 PM Note Text: Episode Visit Count: 2 Therapist That Will Accept/Oversee The Plan Of Care: Lino Cervantes PT. Start of Care Date: 11/16/22 Onset Date: 09/15/22 Plan of Care Certification Date: 11/17/22 Next Certification Due Date: 12/22/22 Patient Identified by Name and Date of : Yes REHABILITATION AND SPORTS THERAPY PHYSICAL THERAPY TREATMENT NOTE ASSESSMENT: Christiano Sorensen tolerated the session with fatigue, expected muscle soreness, and no issues. He demonstrated improvements in tandem balancing. The patient will continue to benefit from ongoing skilled physical therapy to progress toward set goals. PLAN FOR NEXT VISIT: Static AND dynamic balance; uneven surface navigation; general progressions in LE strengthening. SUBJECTIVE: Patient reports pretty sore following HEP completion of 1x a day the first week following eval; patient now reports the this week he has been better states awkward/unsteady/stumble at times, but I feel like I am getting back to normal recently , less soreness with the HEP this week. Pain: Pain Pain Level: 0 Post Treatment Pain Post Treatment Pain Level: 0 OBJECTIVE MEASURES WITH LEVEL OF FUNCTION: Patient with increased difficulty with R Leg forward and lateral step-ups compared to the L, based on overall ease and stability. TREATMENT: Therapeutic Exercise: 1: Sci-Fit: 5 Minutes, Level 2.0 (Direct 1:1 contact and subjective taken.) 2: Lateral Steps ups: 2x10 ea leg, blue box. 3: Fwd Steps ups: 2x10 ea. leg, blue+green box. 4: Woh-lj-dmtcll: 2x10 without use of hands. 5: *Education on proper form to stand up with ease, without relying so much on UE support. Skilled Intervention: Patient was educated in proper exercise technique and purpose for exercises. Skilled judgment was used in selection of appropriate interventions. Correct performance of therapeutic exercises was facilitated with verbal, visual, and tactile cuing. Neuromuscular Re-Education: 1: Feet Together, EC, Ground: 4x30 2: Tandem Stance, EO, Ground: 4x20 . 3: Feet Together, EO, Airex: 4x30 Skilled Intervention: Skilled judgment used to assess appropriate program for balance and coordination activity. Ensured patient safety with use of gait belt and SBA. Billing Therapeutic Exercise Treatment Minutes: 25 Neuromuscular Re-Education Treatment Minutes: 15 Skilled Treatment Time Minutes (timed and untimed codes): 40 Total Session Time (minutes): 40 Session Start Time : 1800 Session Stop Time : 1840 Lino Cervantes PT [facility] 12-03-2022 History of Present illness Narrative Episode Visit Count: 2 Therapist That Will Accept/Oversee The Plan Of Care: Lino Cervantes PT. Start of Care Date: 11/16/22 Onset Date: 09/15/22 Plan of Care Certification Date: 11/17/22 Next Certification Due Date: 12/22/22 Patient Identified by Name and Date of : Yes REHABILITATION AND SPORTS THERAPY PHYSICAL THERAPY TREATMENT NOTE ASSESSMENT: Christiano Sorensen tolerated the session with fatigue, expected muscle soreness, and no issues. He demonstrated improvements in tandem balancing. The patient will continue to benefit from ongoing skilled physical therapy to progress toward set goals. PLAN FOR NEXT VISIT: Static & dynamic balance; uneven surface navigation; general progressions in LE strengthening. SUBJECTIVE: Patient reports pretty sore following HEP completion of 1x a day the first week following eval; patient now reports the this week he has been better states awkward/unsteady/stumble at times, but I feel like I am getting back to normal recently , less soreness with the HEP this week. Pain: Pain Pain Level: 0 Post Treatment Pain Post Treatment Pain Level: 0 OBJECTIVE MEASURES WITH LEVEL OF FUNCTION: Patient with increased difficulty with R Leg forward and lateral step-ups compared to the L, based on overall ease and stability. TREATMENT: Therapeutic Exercise: 1: Sci-Fit: 5 Minutes, Level 2.0 (Direct 1:1 contact and subjective taken.) 2: Lateral Steps ups: 2x10 ea leg, blue box. 3: Fwd Steps ups: 2x10 ea. leg, blue+green box. 4: Yot-fc-rllxfm: 2x10 without use of hands. 5: *Education on proper form to stand up with ease, without relying so much on UE support. Skilled Intervention: Patient was educated in proper exercise technique and purpose for exercises. Skilled judgment was used in selection of appropriate interventions. Correct performance of therapeutic exercises was facilitated with verbal, visual, and tactile cuing. Neuromuscular Re-Education: 1: Feet Together, EC, Ground: 4x30 2: Tandem Stance, EO, Ground: 4x20 . 3: Feet Together, EO, Airex: 4x30 Skilled Intervention: Skilled judgment used to assess appropriate program for balance and coordination activity. Ensured patient safety with use of gait belt and SBA. Billing Therapeutic Exercise Treatment Minutes: 25 Neuromuscular Re-Education Treatment Minutes: 15 Skilled Treatment Time Minutes (timed and untimed codes): 40 Total Session Time (minutes): 40 Session Start Time : 1800 Session Stop Time : 1840 Lino Cervantes PT documented in this encounter [facility] 11-16-2022 Note HNO ID: [id number] Author: Lino Cervantes PT Service: ? Author Type: Physical Therapist Type: Progress Notes Filed: 11/17/2022 7:58 AM Note Text: Episode Visit Count: 1 Therapist That Will Accept/Oversee The Plan Of Care: Lino Cervantes PT. Start of Care Date: 11/16/22 Onset Date: 09/15/22 Plan of Care Certification Date: 11/17/22 Next Certification Due Date: 12/22/22 Patient Identified by Name and Date of : Yes REHABILITATION AND SPORTS THERAPY PHYSICAL THERAPY EVALUATION PLAN OF CARE: Assessment: Christiano Sorensen presents with chief complaint of unsteadiness, balance deficits and past stumbling gait that interferes with stair negotiation, rising from a chair, walking in the community Unsteadiness first thing after getting out of bed, uneven surfaces.. He presents with impairments in balance, gait, stair navigation, independence in exercise, overall function, and functional performance testing indicates active at risk for falls. Patient did not complete the PROMIS? (Patient Reported Outcome Measures Information System). Prognosis for therapy is Excellent due to: current objective clinical presentation, positive past response to therapy, good support system/ coping skills . He will benefit from skilled therapy services to meet the goals established for this plan of care as noted below. Assessment Fall Risk : Active at risk Goals for Episode of Care: created on 11/16/22 through 12/29/22 Patient will report no falls. [place] in home exercise program. Normal gait/stair navigation and reduction of gait deviations. Reciprocal stair negotiation. Improve tandem balancing to 10 seconds and SL static balance to >5 sec bilaterally. Improve score on 30 Second Chair Stand to 14 repetitions with INCREASED CONTROL to reflect decreased fall risk. Improve score on 5xSTS to <12 seconds with INCREASED CONTROL to reflect decreased fall risk. Improve performance on Dynamic Gait Index to >22 to reflect decreased fall risk. Patient Goals: Improve balance and unsteadiness. Planned Interventions, Frequency, and Duration: Current Frequency: 1x/week Duration: 6 weeks Total Number of Visits Planned: 6 Planned Treatment Interventions: Therapeutic exercise (15988), Manual therapy (28981), Neuromuscular re-education (30285), Therapeutic activities (30153), Self-intermediate management (97773), Gait Training (34537), Patient/Family/Caregiver Education, Body Mechanics Training, Functional training, General Conditioning PLAN FOR NEXT VISIT: Address static and dynamic balance; stairs and uneven surface navigation; transitional movements into walking or step-ups. Patient demonstrates good understanding of plan of care and treatment. The above goals and plan of care were discussed and agreed upon by patient/family. SUBJECTIVE: Patient reports visit to ED back in September due to dizziness/fear of stroke. States he got out of bed, stumbled forward and walked down hallway banging against the rawls. Workup in hospital was negative. Reports had another bout of the unsteadiness about ~5 weeks ago and seeing Tanisha Garcia PA-C following. States lightheadness from time to time, however denies dizziness such as the room spinning or rocking on a boat. Patient states he is fine walking in a straight line once he gets going, however states balance issues/unsteadiness with uneven surfaces, rising from a chair and stair navigation. Notes he is very unsteady once he first gets up and needs to hold onto the bed post. Denies use of cane AND walker. Patient Goals: Improve balance and unsteadiness. Functional Limitations: stair negotiation, rising from a chair, walking in the community Functional Limitation Comments: Unsteadiness first thing after getting out of bed, uneven surfaces. 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 Recreation / Current Exercise: Walks 4x a week about a 1.5 miles. Home Environment Patient Lives With: Other: See Comment Comments: Partner Assistance Available: PRN Home Type: Multi-Level with First Floor Set-Up Entry To Home: Stairs, No Stairs Number Of Stairs Into Home: 2 Laundry: Partner Completes. Intake Information: Prescription present Falls Interview: No positive findings with falls interview Falls History # of falls in past year: 0 # of falls resulting in an injury in past year: 0 Pain: Pain Pain Level: 0 Post Treatment Pain Post Treatment Pain Level: 0 PROMIS Scales T-scores: mean of general population = 50. 5 points is clinically meaningfully difference Percentiles provide an indication of how the patient's score ranks i (more content not included)... [facility] 10-29-2022 Miscellaneous Notes Pt notified of results via statusboom. Billie Torres Ma Left message for pt to contact office. Meg Rosa LPN ----- Message from Tanisha Gacria PA-C sent at 10/28/2022 10:52 AM EDT ----- Let pt know that his labs were normal. Continue as we discussed and try the Flonase. documented in this encounter [facility] 10-27-2022 Note HNO ID: [id number] Author: Tanisha Garcia PA-C Service: ? Author Type: Physician Clinical Product Manager Type: Progress Notes Filed: 10/27/2022 2:25 PM Note Text: Chief Complaint Patient presents with: balance issues HPI Christiano Sorensen is a 81 year old male who presents here today for Above Complaints.. Patient was seen in hospital in early september due to dizziness. Workup in hospital was negative. He was given a order to schedule with Physical Therapy but patient started feeling better so never went back. Echo was wnl. Carotid US was <50% b/l and MRI normal. Patient states that he has been good until this week. Reports lightheadness more that dizziness. He feels the symptoms even when sitting in the chair. It worsens when he walks. Last 3 Encounter BP Readings: Date: BP: 10/27/2022 100/66 10/05/2022 134/82 08/31/2022 160/80 Last 3 Encounter Pulse Readings: Date: Pulse: 10/27/2022 57 10/05/2022 58 08/31/2022 60 Past medical history, appointments, medications, allergies reviewed. 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 Bright Benign non-nodular prostatic hyperplasia without lower urinary tract symptoms 10/23/2015 Bilateral carotid artery stenosis 10/07/[address] Rojas, US: 11/01/14 less than 50% bilaterally, no change 10/2015, no change 06/16/2017: bilaterally 20-40% Cardiac dysrhythmia, unspecified Chronic bronchitis (HCC) 10/09/2005 Chronic low back pain without sciatica 10/07/2015 Chronic pain syndrome 10/23/2015 for lymphoma pain and diverticulsis pain. On Neurontin 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 10/07/2015 Current use of proton pump inhibitor 11/11/2016 DDD (degenerative disc disease), lumbar 10/07/2015 Degeneration of lumbar or lumbosacral intervertebral disc Diaphragmatic hernia without mention of obstruction or gangrene Elevated fasting blood sugar 11/18/2017 Enlargement of lymph nodes Erectile dysfunction 10/07/2015 Family history of dementia 10/07/2015 GERD without esophagitis 10/07/[address] 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 pt to go see Dr. Francisco 05/2018 Palpitations 06/07/2018 Chronic, typically at night laying on his left side. W/U with event monitor in past was normal per cardio. past medical history skin cancer forehead--unsure which kind Primary insomnia 10/07/2015 Psoriasis Rosacea 11/11/2016 Subclavian artery stenosis, right (HCC) 06/17/2017 US 06/16/2017 50-99% Thrombocytopenia (HCC) 10/07/2015 Waldenstrom's macroglobulinemia (HCC) 10/07/2015 Previous Surgical History PAST SURGICAL HISTORY Procedure Laterality Date 2D ECHO (EXEP) 01/30/2014 EF=60%, LVH, no valve abnormalities COLONOSCOPY 09/21/2014 Dr. Bright, polyp, repeat 3 yrs COLONOSCOPY 02/17/2018 repeat 3 yrs, Dr. Bright COLONOSCOPY W/BIOPSY SINGLE/MULTIPLE 11/22/2007 ENDOSCOPY UPPER-EGD/M24 LAP, REVISION SIMA FUNDOPLASTY 03/20/[address] Layla VORA SURG CHOLECYSTECTOMY W/CHOLANGIOGRAPHY 04/12/2009 PAST SURGICAL HISTORY OF 11/2014 AAA repair PAST SURGICAL HISTORY OF 2015 both eyes cataract removal. PAST SURGICAL HISTORY OF 10/13/2017 right shoulder surgery per [facility] UMBILICAL HRNA 5 YRS/> REDUCIBLE 04/12/2009 STRESS TEST 02/27/2014 WNL Family History FAMILY HISTORY Problem Relation Age of Onset Multiple Sclerosis Brother living Colon Cancer Father 74 of metastatic brain CA Diabetes Father other (schiophrenia) Sister doing ok since e;ectroshock Alzheimer's Disease Mother Patient Allergies ALLERGIES Allergen Reactions Elavil [Amitriptyli* Other: See Comments Tired and depressed feeling Current Medications Current Outpatient Medications on File Prior to Visit Medication Sig rosuvastatin (CRESTOR) 20 mg tablet Take 1 tablet by mouth once daily. omeprazole (PRILOSEC) 10 mg capsule Take 1 capsule by mouth once daily. metroNIDAZOLE (METROGEL) 1 % Topical Gel Apply 1 application to affected area once daily. Location: face albuterol HFA (PROAIR HFA) 90 mcg/actuation inhaler Inhale 2 Puffs as instructed every 6 hours as needed. lactulose (DUPHALAC, CONSTULOSE) 10 g/15 mL soln Take 30 mL by mouth once daily. Per Cardio Dr. Ortiz (Patient not taking: Reported on 09/18/2021 ) MEDICATION, NON-DATABASE T (more content not included)... [facility] 10-27-2022 Miscellaneous Notes Pt notified of Tanisha's message. Meg Rosa LPN Let patient know I'm going to send in a nasal spray for him to try over the next couple weeks as well. Tanisha Garcia PA-C documented in this encounter [facility] 10-27-2022 History of Present illness Narrative Chief Complaint Patient presents with: balance issues HPI Christiano Sorensen is a 81 year old male who presents here today for Above Complaints.. Patient was seen in hospital in early september due to dizziness. Workup in hospital was negative. He was given a order to schedule with Physical Therapy but patient started feeling better so never went back. Echo was wnl. Carotid US was <50% b/l and MRI normal. Patient states that he has been good until this week. Reports lightheadness more that dizziness. He feels the symptoms even when sitting in the chair. It worsens when he walks. Last 3 Encounter BP Readings: Date: BP: 10/27/2022 100/66 10/05/2022 134/82 08/31/2022 160/80 Last 3 Encounter Pulse Readings: Date: Pulse: 10/27/2022 57 10/05/2022 58 08/31/2022 60 Past medical history, appointments, medications, allergies reviewed. 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 Bright Benign non-nodular prostatic hyperplasia without lower urinary tract symptoms 10/23/2015 Bilateral carotid artery stenosis 10/07/[address] Rojas, : 11/01/14 less than 50% bilaterally, no change 10/2015, no change 06/16/2017: bilaterally 20-40% Cardiac dysrhythmia, unspecified Chronic bronchitis (HCC) 10/09/2005 Chronic low back pain without sciatica 10/07/2015 Chronic pain syndrome 10/23/2015 for lymphoma pain and diverticulsis pain. On Neurontin 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 10/07/2015 Current use of proton pump inhibitor 11/11/2016 DDD (degenerative disc disease), lumbar 10/07/2015 Degeneration of lumbar or lumbosacral intervertebral disc Diaphragmatic hernia without mention of obstruction or gangrene Elevated fasting blood sugar 11/18/2017 Enlargement of lymph nodes Erectile dysfunction 10/07/2015 Family history of dementia 10/07/2015 GERD without esophagitis 10/07/[address] 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 pt to go see Dr. Francisco 05/2018 Palpitations 06/07/2018 Chronic, typically at night laying on his left side. W/U with event monitor in past was normal per cardio. past medical history skin cancer forehead--unsure which kind Primary insomnia 10/07/2015 Psoriasis Rosacea 11/11/2016 Subclavian artery stenosis, right (HCC) 06/17/2017 US 06/16/2017 50-99% Thrombocytopenia (HCC) 10/07/2015 Waldenstrom's macroglobulinemia (HCC) 10/07/2015 Previous Surgical History PAST SURGICAL HISTORY Procedure Laterality Date 2D ECHO (EXEP) 01/30/2014 EF=60%, LVH, no valve abnormalities COLONOSCOPY 09/21/2014 Dr. Bright, polyp, repeat 3 yrs COLONOSCOPY 02/17/2018 repeat 3 yrs, Dr. Bright COLONOSCOPY W/BIOPSY SINGLE/MULTIPLE 11/22/2007 ENDOSCOPY UPPER-EGD/M24 LAP, REVISION SIMA FUNDOPLASTY 03/20/[address] Layla VORA SURG CHOLECYSTECTOMY W/CHOLANGIOGRAPHY 04/12/2009 PAST SURGICAL HISTORY OF 11/2014 AAA repair PAST SURGICAL HISTORY OF 2015 both eyes cataract removal. PAST SURGICAL HISTORY OF 10/13/2017 right shoulder surgery per [facility] UMBILICAL HRNA 5 YRS/> REDUCIBLE 04/12/2009 STRESS TEST 02/27/2014 WNL Family History FAMILY HISTORY Problem Relation Age of Onset Multiple Sclerosis Brother living Colon Cancer Father 74 of metastatic brain CA Diabetes Father other (schiophrenia) Sister doing ok since e;ectroshock Alzheimer's Disease Mother Patient Allergies ALLERGIES Allergen Reactions Elavil [Amitriptyli* Other: See Comments Tired and depressed feeling Current Medications Current Outpatient Medications on File Prior to Visit Medication Sig rosuvastatin (CRESTOR) 20 mg tablet Take 1 tablet by mouth once daily. omeprazole (PRILOSEC) 10 mg capsule Take 1 capsule by mouth once daily. metroNIDAZOLE (METROGEL) 1 % Topical Gel Apply 1 application to affected area once daily. Location: face albuterol HFA (PROAIR HFA) 90 mcg/actuation inhaler Inhale 2 Puffs as instructed every 6 hours as needed. lactulose (DUPHALAC, CONSTULOSE) 10 g/15 mL soln Take 30 mL by mouth once daily. Per Cardio Dr. Ortiz (Patient not taking: Reported on 09/18/2021 ) MEDICATION, NON-DATABASE Takes med for digestive problems but pt doesn't remember name (Patient not taking: Reported on 06/13/2020 ) aspirin(ASPIR-81 81 MG TAB) One tabs every morning (Patient not taking: Reported on 04/06/2022) No current facility-administered medications on file prior to visit. Social History Social History Tobacco Use Smoking status: Former Packs/day: 1.00 Years: 8.00 Additional pack years: 0.00 Total pack years: 8.00 Types: Cigarettes Quit date: 02/15/1974 Years since quittin.7 Smokeless tobacco: Never Tobacco comments: NO EXPOSURE TO 2ND HAND SMOKE Vaping Use Vaping Use: Never used Substance Use Topics Alcohol use: Yes Comment: occasionally Drug use: No Review of Symptoms REVIEW OF SYSTEMS See hpi EXAM: BP 100/66 (BP Site: Left Arm, BP Position: Sitting, BP Cuff Size: Regular Adult) Pulse (!) 57 Temp 36.3 C (97.4 F) Resp 16 Wt 80.3 kg (177 lb) SpO2 98% BMI 24.34 kg/m General Appearance: Well appearing, alert, in no acute distress, well-hydrated, well nourished.. Ears: Canals clear. B/l TMs pearly montes Eyes: PERRLA Neck: Supple, no adenopathy; thyroid symmetric, normal size, no bruits. Lungs: Lungs clear to auscultation. No wheezing, rhonchi, rales.. Heart: RRR without murmur, gallop, or rubs. No ectopy. Extremities: No deformities, edema, skin discoloration, clubbing or cyanosis. Good capillary refill. . Peripheral Pulses: Normal. Neurologic: neg julián halltacoske. . Health Maintenance List Influenza Vaccine(1) due on 10/16/2022 DTaP,Tdap,Td Vaccine(2 - Td or Tdap) due on 04/06/2023 Covid-19 Vaccine(4 - Pfizer risk series) due on 04/06/2023 LDL Cholesterol due on 10/04/2023 Diabetes Screening due on 10/03/2025 Advance Directive Discussion Completed Depression Assessment Completed Shingrix Vaccine Completed Pneumococcal Vaccine: 65+ Completed HPV Vaccine Aged Out Colorectal Cancer Screening Discontinued Data reviewed Orthostatic: Supine: 121/69 P 56 Standing (1min) 126/73 P66 Standing (3min) 124/63 P60 ASSESSMENT/PLAN: 1. Lightheadedness - ICD9: 780.4, ICD10: R42 (primary diagnosis) Unclear etiology. Bp was initially low at beginning of visit but during orthos was back in 120s/60-70s. Pulse is stable in the 50-60 range. Will check labs. Patient to push fluids. Will have patient set up Physical Therapy but uncertain if symptoms are vestibular in nature. - CBC + DIFF - COMP METABOLIC PANEL 2. Unsteadiness - ICD9: 781.2, ICD10: R26.81 As above. - CONSULT TO PHYSICAL THERAPY Tanisha Garcia PA-C documented in this encounter [facility] 10-27-2022 Miscellaneous Notes Pt scheduled today with Tanisha Garcia to discuss PT order. Patient will need office visit for documentation purposes for insurance coverage. Patient calling he had balance problem back in August and had been in [facility] overnight and was going to PT at [facility] few times. Patient said he felt good and stopped the PT. Patient said he is having the balance problem again and is calling for a Physical Therapy order. He is willing to go to specialty center for PT. Pending order needs diagnosis. Please advise documented in this encounter [facility] 10-05-2022 Note HNO ID: [id number] Author: Korina Aguilar APRN.FACILITY MAINTENANCE TECHNICIAN Service: ? Author Type: Nurse Practitioner Type: Progress Notes Filed: 10/05/2022 3:37 PM Note Text: Chief Complaint No chief complaint on file. HPI Christiano Sorensen is a 81 year old male who presents here today for Above Complaints.. Patient presents for routine follow up. PMH AAA, anemia, Funez's esophagus, BPH, CAD, GERD, HLP, thrombocytopenia. Patient reports continues to have dry heaves and abd discomfort following partial wrap for hiatal hernia. Patient also reports hospitalization in August for ataxia and was diagnosed with inner ear dysfunction. Past medical history, appointments, medications, allergies reviewed. 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 Bright Benign non-nodular prostatic hyperplasia without lower urinary tract symptoms 10/23/2015 Bilateral carotid artery stenosis 10/07/[address] Rojas, : 11/01/14 less than 50% bilaterally, no change 10/2015, no change 06/16/2017: bilaterally 20-40% Cardiac dysrhythmia, unspecified Chronic bronchitis (HCC) 10/09/2005 Chronic low back pain without sciatica 10/07/2015 Chronic pain syndrome 10/23/2015 for lymphoma pain and diverticulsis pain. On Neurontin 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 10/07/2015 Current use of proton pump inhibitor 11/11/2016 DDD (degenerative disc disease), lumbar 10/07/2015 Degeneration of lumbar or lumbosacral intervertebral disc Diaphragmatic hernia without mention of obstruction or gangrene Elevated fasting blood sugar 11/18/2017 Enlargement of lymph nodes Erectile dysfunction 10/07/2015 Family history of dementia 10/07/2015 GERD without esophagitis 10/07/[address] 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 pt to go see Dr. Francisco 05/2018 Palpitations 06/07/2018 Chronic, typically at night laying on his left side. W/U with event monitor in past was normal per cardio. past medical history skin cancer forehead--unsure which kind Primary insomnia 10/07/2015 Psoriasis Rosacea 11/11/2016 Subclavian artery stenosis, right (HCC) 06/17/2017 US 06/16/2017 50-99% Thrombocytopenia (HCC) 10/07/2015 Waldenstrom's macroglobulinemia (HCC) 10/07/2015 Previous Surgical History PAST SURGICAL HISTORY Procedure Laterality Date 2D ECHO (EXEP) 01/30/2014 EF=60%, LVH, no valve abnormalities COLONOSCOPY 09/21/2014 Dr. Bright, polyp, repeat 3 yrs COLONOSCOPY 02/17/2018 repeat 3 yrs, Dr. Bright COLONOSCOPY W/BIOPSY SINGLE/MULTIPLE 11/22/2007 ENDOSCOPY UPPER-EGD/M24 LAP, REVISION SIMA FUNDOPLASTY 03/20/[address] Layla VORA SURG CHOLECYSTECTOMY W/CHOLANGIOGRAPHY 04/12/2009 PAST SURGICAL HISTORY OF 11/2014 AAA repair PAST SURGICAL HISTORY OF 2015 both eyes cataract removal. PAST SURGICAL HISTORY OF 10/13/2017 right shoulder surgery per [facility] UMBILICAL [facility] 5 YRS/> REDUCIBLE 04/12/2009 STRESS TEST 02/27/2014 WNL Family History FAMILY HISTORY Problem Relation Age of Onset Multiple Sclerosis Brother living Colon Cancer Father 74 of metastatic brain CA Diabetes Father other (schiophrenia) Sister doing ok since e;ectroshock Alzheimer's Disease Mother Patient Allergies ALLERGIES Allergen Reactions Elavil [Amitriptyli* Other: See Comments Tired and depressed feeling Current Medications Current Outpatient Medications on File Prior to Visit Medication Sig metroNIDAZOLE (METROGEL) 1 % Topical Gel Apply 1 application to affected area once daily. Location: face rosuvastatin (CRESTOR) 20 mg tablet Take 1 tablet by mouth once daily. omeprazole (PRILOSEC) 10 mg capsule Take 10 mg by mouth once daily. albuterol HFA (PROAIR HFA) 90 mcg/actuation inhaler Inhale 2 Puffs as instructed every 6 hours as needed. lactulose (DUPHALAC, CONSTULOSE) 10 g/15 mL soln Take 30 mL by mouth once daily. Per Cardio Dr. Ortiz (Patient not taking: Reported on 09/18/2021 ) MEDICATION, NON-DATABASE Takes med for digestive problems but pt doesn't remember name (Patient not taking: Reported on 06/13/2020 ) aspirin(ASPIR-81 81 MG TAB) One tabs every morning (Patient not taking: Reported on 04/06/2022) No current facility-administered medications on file prior to visit. Social History Social History Tobacco Use Smokin (more content not included)... [facility] 10-05-2022 History of Present illness Narrative Chief Complaint No chief complaint on file. HPI Christiano Sorensen is a 81 year old male who presents here today for Above Complaints.. Patient presents for routine follow up. PMH AAA, anemia, Funez's esophagus, BPH, CAD, GERD, HLP, thrombocytopenia. Patient reports continues to have dry heaves and abd discomfort following partial wrap for hiatal hernia. Patient also reports hospitalization in August for ataxia and was diagnosed with inner ear dysfunction. Past medical history, appointments, medications, allergies reviewed. 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 Bright Benign non-nodular prostatic hyperplasia without lower urinary tract symptoms 10/23/2015 Bilateral carotid artery stenosis 10/07/[address] Rojas, US: 11/01/14 less than 50% bilaterally, no change 10/2015, no change 06/16/2017: bilaterally 20-40% Cardiac dysrhythmia, unspecified Chronic bronchitis (HCC) 10/09/2005 Chronic low back pain without sciatica 10/07/2015 Chronic pain syndrome 10/23/2015 for lymphoma pain and diverticulsis pain. On Neurontin 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 10/07/2015 Current use of proton pump inhibitor 11/11/2016 DDD (degenerative disc disease), lumbar 10/07/2015 Degeneration of lumbar or lumbosacral intervertebral disc Diaphragmatic hernia without mention of obstruction or gangrene Elevated fasting blood sugar 11/18/2017 Enlargement of lymph nodes Erectile dysfunction 10/07/2015 Family history of dementia 10/07/2015 GERD without esophagitis 10/07/[address] 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 pt to go see Dr. Francisco 05/2018 Palpitations 06/07/2018 Chronic, typically at night laying on his left side. W/U with event monitor in past was normal per cardio. past medical history skin cancer forehead--unsure which kind Primary insomnia 10/07/2015 Psoriasis Rosacea 11/11/2016 Subclavian artery stenosis, right (HCC) 06/17/2017 US 06/16/2017 50-99% Thrombocytopenia (HCC) 10/07/2015 Waldenstrom's macroglobulinemia (HCC) 10/07/2015 Previous Surgical History PAST SURGICAL HISTORY Procedure Laterality Date 2D ECHO (EXEP) 01/30/2014 EF=60%, LVH, no valve abnormalities COLONOSCOPY 09/21/2014 Dr. Bright, polyp, repeat 3 yrs COLONOSCOPY 02/17/2018 repeat 3 yrs, Dr. Bright COLONOSCOPY W/BIOPSY SINGLE/MULTIPLE 11/22/2007 ENDOSCOPY UPPER-EGD/M24 LAP, REVISION SIMA FUNDOPLASTY 03/20/[address] Layla VORA SURG CHOLECYSTECTOMY W/CHOLANGIOGRAPHY 04/12/2009 PAST SURGICAL HISTORY OF 11/2014 AAA repair PAST SURGICAL HISTORY OF 2015 both eyes cataract removal. PAST SURGICAL HISTORY OF 10/13/2017 right shoulder surgery per [facility] UMBILICAL [facility] 5 YRS/> REDUCIBLE 04/12/2009 STRESS TEST 02/27/2014 WNL Family History FAMILY HISTORY Problem Relation Age of Onset Multiple Sclerosis Brother living Colon Cancer Father 74 of metastatic brain CA Diabetes Father other (schiophrenia) Sister doing ok since e;carrollroshock Alzheimer's Disease Mother Patient Allergies ALLERGIES Allergen Reactions Elavil [Amitriptyli* Other: See Comments Tired and depressed feeling Current Medications Current Outpatient Medications on File Prior to Visit Medication Sig metroNIDAZOLE (METROGEL) 1 % Topical Gel Apply 1 application to affected area once daily. Location: face rosuvastatin (CRESTOR) 20 mg tablet Take 1 tablet by mouth once daily. omeprazole (PRILOSEC) 10 mg capsule Take 10 mg by mouth once daily. albuterol HFA (PROAIR HFA) 90 mcg/actuation inhaler Inhale 2 Puffs as instructed every 6 hours as needed. lactulose (DUPHALAC, CONSTULOSE) 10 g/15 mL soln Take 30 mL by mouth once daily. Per Cardio Dr. Ortiz (Patient not taking: Reported on 09/18/2021 ) MEDICATION, NON-DATABASE Takes med for digestive problems but pt doesn't remember name (Patient not taking: Reported on 06/13/2020 ) aspirin(ASPIR-81 81 MG TAB) One tabs every morning (Patient not taking: Reported on 04/06/2022) No current facility-administered medications on file prior to visit. Social History Social History Tobacco Use Smoking status: Former Packs/day: 1.00 Years: 8.00 Additional pack years: 0.00 Total pack years: 8.00 Types: Cigarettes Quit date: 02/15/1974 Years since quittin.6 Smokeless tobacco: Never Tobacco comments: NO EXPOSURE TO 2ND HAND SMOKE Vaping Use Vaping Use: Never used Substance Use Topics Alcohol use: Yes Comment: occasionally Drug use: No Review of Symptoms REVIEW OF SYSTEMS SEE HPI EXAM: Pulse (!) 58 Resp 16 Wt 79.8 kg (176 lb) BMI 24.20 kg/m Neck: Supple, no adenopathy; thyroid symmetric, normal size, no bruits. Lungs: Lungs clear to auscultation. No wheezing, rhonchi, rales.. Heart: RRR without murmur, gallop, or rubs. No ectopy. Extremities: No deformities, edema, skin discoloration, clubbing or cyanosis. Good capillary refill. . Peripheral Pulses: Normal. Neurologic: Gait normal. Reflexes normal and symmetric. Sensation grossly intact.. Health Maintenance List DTAP,TDAP,TD(2 - Td or Tdap) due on 04/06/2023 COVID-19 VACCINE(4 - Pfizer risk series) due on 04/06/2023 INFLUENZA(1) due on 10/16/2022 LDL CHOLESTEROL due on 10/04/2023 DIABETES SCREEN due on 10/03/2025 ADVANCE DIRECTIVE DISCUSSION Completed DEPRESSION ASSESSMENT Completed SHINGRIX VACCINE Completed PNEUMOCOCCAL: 65+ Completed HPV VACCINE Aged Out COLORECTAL CANCER SCREENING Discontinued Data reviewed Component Latest Ref Rng & Units 10/03/2022 Glucose 74 - 99 mg/dL 91 BUN 9 - 24 mg/dL 23 Creatinine 0.73 - 1.22 mg/dL 1.26 (H) Sodium 136 - 144 mmol/L 139 Potassium 3.7 - 5.1 mmol/L 4.4 Chloride 97 - 105 mmol/L 103 CO2 22 - 30 mmol/L 30 Anion Gap 9 - 18 mmol/L 6 (L) Calcium 8.5 - 10.2 mg/dL 9.5 eGFR >=60 mL/min/1.73m 57 (L) Total Cholesterol, Nonfasting <200 mg/dL 169 Triglycerides, Nonfasting <150 mg/dL 78 HDL Cholesterol, Nonfasting >39 mg/dL 56 LDL Cholesterol, Nonfasting <100 mg/dL 97 Non HDL Cholesterol, Nonfasting <130 mg/dL 113 VLDL Cholesterol, Nonfasting <30 mg/dL 16 Total Chol/HDL Ratio, Nonfasting <5.10 mg/dL 3.02 LDL/HDL Ratio, Nonfasting <2.54 mg/dL 1.73 Hemoglobin A1C 4.3 - 5.6 % 4.9 Estimated Average Glucose mg/dL 94 ASSESSMENT/PLAN: 1. Rosacea - ICD9: 695.3, ICD10: L71.9 (primary diagnosis) - METRONIDAZOLE 1 % TOPICAL GEL 2. Monoclonal gammopathy - ICD9: 273.1, ICD10: D47.2 -Stable 3. Anemia - ICD9: 285.9, ICD10: D64.9 -Stable, follows with hematology 4. Waldenstrom macroglobulinemia (HCC) - ICD9: 273.3, ICD10: C88.0 -Stable, follows with hematology 5. Mixed hyperlipidemia - ICD9: 272.2, ICD10: E78.2 - Controlled - Continue current medications - Counseled on healthy diet and regular exercise - ROSUVASTATIN 20 MG TABLET 6. GERD without esophagitis - ICD9: 530.81, ICD10: K21.9 - Discussed lifestyle modifications including losing weight, limiting caffeine, no meals three hours before sleep, and head of bed elevation - OMEPRAZOLE 10 MG CAPSULE,DELAYED RELEASE 7. 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 Bilateral carotid artery stenosis - ICD9: 433.10, 433.30, ICD10: I65.23 -Stable recent imaging at hospital 9. 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 - ICD9: 414.3, ICD10: I25.10, I25.83 -Stable 10. Thrombocytopenia (HCC) - ICD9: 287.5, ICD10: D69.6 -Improved 11. Abdominal aortic aneurysm (AAA) without rupture, unspecified part (HCC) - ICD9: 441.4, ICD10: I71.40 -Stable 12. Chronic bronchitis, unspecified chronic bronchitis type (HCC) - ICD9: 491.9, ICD10: J42 -Stable 13. Hiatal hernia - ICD9: 553.3, ICD10: K44.9 -Encouraged patient to follow up with Dr. Rich as he continues to have symptoms. 14. Benign non-nodular prostatic hyperplasia without lower urinary tract symptoms - ICD9: 600.90, ICD10: N40.0 -Stable 15. DDD (degenerative disc disease), lumbar - ICD9: 722.52, ICD10: M51.36 Chronic low back pain -Stable -Walks 3-4 times a week Korina Aguilar APRN.FACILITY MAINTENANCE TECHNICIAN documented in this encounter [facility] 09-02-2022 Note HNO ID: [id number] Author: Elsa Stauffer LPN Service: ? Author Type: ? Type: Progress Notes Filed: 09/02/2022 9:30 AM Note Text: Scan on 09/01/2022 1:40 PM by Provider, External, JORDAN: CT Scan [facility] 09-02-2022 History of Present illness Narrative Scan on 09/01/2022 1:40 PM by ProviderTangela PA-C: CT Scan documented in this encounter [facility] 08-31-2022 Note HNO ID: [id number] Author: Elsa Stauffer LPN Service: ? Author Type: ? Type: Progress Notes Filed: 08/31/2022 3:23 PM Note Text: Scan on 08/31/2022 1:20 PM by ProviderTangela PA-C: CT Scan Scan on 08/31/2022 1:25 PM by Tangela Erazo PA-C: CT Scan Scan on 08/31/2022 1:36 PM by Tangela Erazo PA-C: CT Scan Scan on 08/31/2022 2:12 PM by Tangela Erazo PA-C: Consultation - Emergency Medicine [facility] 08-31-2022 History of Present illness Narrative Scan on 08/31/2022 1:20 PM by Tangela Erazo PA-C: CT Scan Scan on 08/31/2022 1:25 PM by Tangela Erazo PA-C: CT Scan Scan on 08/31/2022 1:36 PM by Tangela Erazo PA-C: CT Scan Scan on 08/31/2022 2:12 PM by Tangela Erazo PA-C: Consultation - Emergency Medicine documented in this encounter [facility] 08-31-2022 Note HNO ID: [id number] Author: Sabi To PA-C Service: ? Author Type: Physician Clinical Product Manager Type: Progress Notes Filed: 08/31/2022 11:16 AM Note Text: This note was created using Swippriter. Subjective Christiano Sorensen is a 81 year old male. HPI Presents with a chief complaint of dizziness and feeling like he is leaning to the left. This has been off and on over the past day. Denies any ear pain but wanted his ears checked to make sure he did not have an ear infection. No URI symptoms recently. Patient denies history of balance issues previously however he has a diagnosis of balance problem on his chart. Denies weakness numbness or tingling. No blurred or double vision. No chest pain or shortness of breath. Review of Systems Constitutional: Negative. HENT: Negative. Respiratory: Negative. Cardiovascular: Negative. Gastrointestinal: Negative. Genitourinary: Negative. Musculoskeletal: Negative. Neurological: Positive for dizziness. Off balance, leaning to the left All other systems reviewed and are negative. 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 Bright Benign non-nodular prostatic hyperplasia without lower urinary tract symptoms 10/23/2015 Bilateral carotid artery stenosis 10/07/[address] Rojas, : 11/01/14 less than 50% bilaterally, no change 10/2015, no change 06/16/2017: bilaterally 20-40% Cardiac dysrhythmia, unspecified Chronic bronchitis (HCC) 10/09/2005 Chronic low back pain without sciatica 10/07/2015 Chronic pain syndrome 10/23/2015 for lymphoma pain and diverticulsis pain. On Neurontin 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 10/07/2015 Current use of proton pump inhibitor 11/11/2016 DDD (degenerative disc disease), lumbar 10/07/2015 Degeneration of lumbar or lumbosacral intervertebral disc Diaphragmatic hernia without mention of obstruction or gangrene Elevated fasting blood sugar 11/18/2017 Enlargement of lymph nodes Erectile dysfunction 10/07/2015 Family history of dementia 10/07/2015 GERD without esophagitis 10/07/[address] 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 pt to go see Dr. Francisco 05/2018 Palpitations 06/07/2018 Chronic, typically at night laying on his left side. W/U with event monitor in past was normal per cardio. past medical history skin cancer forehead--unsure which kind Primary insomnia 10/07/2015 Psoriasis Rosacea 11/11/2016 Subclavian artery stenosis, right (HCC) 06/17/2017 US 06/16/2017 50-99% Thrombocytopenia (HCC) 10/07/2015 Waldenstrom's macroglobulinemia (HCC) 10/07/2015 Current Outpatient Medications Medication Sig Dispense Refill metroNIDAZOLE (METROGEL) 1 % Topical Gel Apply 1 application to affected area once daily. Location: face 60 g 1 rosuvastatin (CRESTOR) 20 mg tablet Take 1 tablet by mouth once daily. 90 tablet 1 omeprazole (PRILOSEC) 10 mg capsule Take 10 mg by mouth once daily. albuterol HFA (PROAIR HFA) 90 mcg/actuation inhaler Inhale 2 Puffs as instructed every 6 hours as needed. 1 Each 1 lactulose (DUPHALAC, CONSTULOSE) 10 g/15 mL soln Take 30 mL by mouth once daily. Per Cardio Dr. Ortiz (Patient not taking: Reported on 09/18/2021 ) MEDICATION, NON-DATABASE Takes med for digestive problems but pt doesn't remember name (Patient not taking: Reported on 06/13/2020 ) aspirin(ASPIR-81 81 MG TAB) One tabs every morning (Patient not taking: Reported on 04/06/2022) 0 No current facility-administered medications for this visit. PAST SURGICAL HISTORY Procedure Laterality Date 2D ECHO (EXEP) 01/30/2014 EF=60%, LVH, no valve abnormalities COLONOSCOPY 09/21/2014 Dr. Bright, polyp, repeat 3 yrs COLONOSCOPY 02/17/2018 repeat 3 yrs, Dr. Bright COLONOSCOPY W/BIOPSY SINGLE/MULTIPLE 11/22/2007 ENDOSCOPY UPPER-EGD/M24 LAP, REVISION SIMA FUNDOPLASTY 03/20/[address] Layla VORA SURG CHOLECYSTECTOMY W/CHOLANGIOGRAPHY 04/12/2009 PAST SURGICAL HISTORY OF 11/2014 AAA repair PAST SURGICAL HISTORY OF 2015 both eyes cataract removal. PAST SURGICAL HISTORY OF 10/13/2017 right shoulder surgery per [facility] UMBILICAL [facility] 5 YRS/> REDUCIBLE 04/12/2009 STRESS TEST 02/27/2014 WNL FAMILY HISTORY Problem Relation Age of Onset Multiple Sclerosis Brother living Colon Cancer Father 74 of metastatic brain CA Diabet (more content not included)... [facility] 08-31-2022 History of Present illness Narrative This note was created using Swippriter. Subjective Christiano Sorensen is a 81 year old male. HPI Presents with a chief complaint of dizziness and feeling like he is leaning to the left. This has been off and on over the past day. Denies any ear pain but wanted his ears checked to make sure he did not have an ear infection. No URI symptoms recently. Patient denies history of balance issues previously however he has a diagnosis of balance problem on his chart. Denies weakness numbness or tingling. No blurred or double vision. No chest pain or shortness of breath. Review of Systems Constitutional: Negative. HENT: Negative. Respiratory: Negative. Cardiovascular: Negative. Gastrointestinal: Negative. Genitourinary: Negative. Musculoskeletal: Negative. Neurological: Positive for dizziness. Off balance, leaning to the left All other systems reviewed and are negative. 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 Bright Benign non-nodular prostatic hyperplasia without lower urinary tract symptoms 10/23/2015 Bilateral carotid artery stenosis 10/07/[address] Rojas, : 11/01/14 less than 50% bilaterally, no change 10/2015, no change 06/16/2017: bilaterally 20-40% Cardiac dysrhythmia, unspecified Chronic bronchitis (HCC) 10/09/2005 Chronic low back pain without sciatica 10/07/2015 Chronic pain syndrome 10/23/2015 for lymphoma pain and diverticulsis pain. On Neurontin 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 10/07/2015 Current use of proton pump inhibitor 11/11/2016 DDD (degenerative disc disease), lumbar 10/07/2015 Degeneration of lumbar or lumbosacral intervertebral disc Diaphragmatic hernia without mention of obstruction or gangrene Elevated fasting blood sugar 11/18/2017 Enlargement of lymph nodes Erectile dysfunction 10/07/2015 Family history of dementia 10/07/2015 GERD without esophagitis 10/07/[address] 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 pt to go see Dr. Francisco 05/2018 Palpitations 06/07/2018 Chronic, typically at night laying on his left side. W/U with event monitor in past was normal per cardio. past medical history skin cancer forehead--unsure which kind Primary insomnia 10/07/2015 Psoriasis Rosacea 11/11/2016 Subclavian artery stenosis, right (HCC) 06/17/2017 US 06/16/2017 50-99% Thrombocytopenia (HCC) 10/07/2015 Waldenstrom's macroglobulinemia (HCC) 10/07/2015 Current Outpatient Medications Medication Sig Dispense Refill metroNIDAZOLE (METROGEL) 1 % Topical Gel Apply 1 application to affected area once daily. Location: face 60 g 1 rosuvastatin (CRESTOR) 20 mg tablet Take 1 tablet by mouth once daily. 90 tablet 1 omeprazole (PRILOSEC) 10 mg capsule Take 10 mg by mouth once daily. albuterol HFA (PROAIR HFA) 90 mcg/actuation inhaler Inhale 2 Puffs as instructed every 6 hours as needed. 1 Each 1 lactulose (DUPHALAC, CONSTULOSE) 10 g/15 mL soln Take 30 mL by mouth once daily. Per Cardio Dr. Ortiz (Patient not taking: Reported on 09/18/2021 ) MEDICATION, NON-DATABASE Takes med for digestive problems but pt doesn't remember name (Patient not taking: Reported on 06/13/2020 ) aspirin(ASPIR-81 81 MG TAB) One tabs every morning (Patient not taking: Reported on 04/06/2022) 0 No current facility-administered medications for this visit. PAST SURGICAL HISTORY Procedure Laterality Date 2D ECHO (EXEP) 01/30/2014 EF=60%, LVH, no valve abnormalities COLONOSCOPY 09/21/2014 Dr. Bright, polyp, repeat 3 yrs COLONOSCOPY 02/17/2018 repeat 3 yrs, Dr. Bright COLONOSCOPY W/BIOPSY SINGLE/MULTIPLE 11/22/2007 ENDOSCOPY UPPER-EGD/M24 LAP, REVISION SIMA FUNDOPLASTY 03/20/[address] Layla VORA SURG CHOLECYSTECTOMY W/CHOLANGIOGRAPHY 04/12/2009 PAST SURGICAL HISTORY OF 11/2014 AAA repair PAST SURGICAL HISTORY OF 2015 both eyes cataract removal. PAST SURGICAL HISTORY OF 10/13/2017 right shoulder surgery per [facility] UMBILICAL HRNA 5 YRS/> REDUCIBLE 04/12/2009 STRESS TEST 02/27/2014 WNL FAMILY HISTORY Problem Relation Age of Onset Multiple Sclerosis Brother living Colon Cancer Father 74 of metastatic brain CA Diabetes Father other (schiophrenia) Sister doing ok since e;ectroshock Alzheimer's Disease Mother Social History Tobacco Use Smoking status: Former Packs/day: 1.00 Years: 8.00 Total pack years: 8.00 Types: Cigarettes Quit date: 02/15/1974 Years since quittin.5 Smokeless tobacco: Never Tobacco comments: NO EXPOSURE TO 2ND HAND SMOKE Vaping Use Vaping Use: Never used Substance Use Topics Alcohol use: Yes Comment: occasionally Drug use: No Objective BP 160/80 Pulse 60 Temp 36.1 C (97 F) Resp 20 Wt 81 kg (178 lb 9.6 oz) SpO2 100% BMI 24.56 kg/m Physical Exam Vitals reviewed. Constitutional: Appearance: Normal appearance. HENT: Head: Normocephalic and atraumatic. Right Ear: Tympanic membrane, ear canal and external ear normal. Left Ear: Tympanic membrane, ear canal and external ear normal. Eyes: Extraocular Movements: Extraocular movements intact. Pupils: Pupils are equal, round, and reactive to light. Cardiovascular: Rate and Rhythm: Normal rate and regular rhythm. Heart sounds: Normal heart sounds. Pulmonary: Effort: Pulmonary effort is normal. Breath sounds: Normal breath sounds. Skin: General: Skin is warm and dry. Neurological: General: No focal deficit present. Mental Status: He is alert and oriented to person, place, and time. Cranial Nerves: No cranial nerve deficit. Assessment and Plan ASSESSMENT/PLAN: 1. Balance problem - ICD9: 781.99, ICD10: R26.89 Discussed normal ear exam here, recommended further evaluation at [facility] [facility]. Patient will go by private vehicle, declined squad. Sabi To PA-C documented in this encounter [facility] 06-18-2022 Note HNO ID: [id number] Author: Eliza Beckett MA Service: ? Author Type: Market Development Trainer Type: Progress Notes Filed: 06/21/2022 5:23 PM Note Text: Scan on 06/16/2022 4:32 PM by External Provider, JOELC: Consultation - GI Eliza Beckett MA [facility] 06-18-2022 History of Present illness Narrative Scan on 06/16/2022 4:32 PM by External Provider, JORDAN: Consultation - GI Eliza Beckett MA documented in this encounter [facility] 06-08-2022 Note HNO ID: [id number] Author: Eliza Beckett MA Service: ? Author Type: Market Development Trainer Type: Progress Notes Filed: 06/08/2022 1:56 PM Note Text: Scan on 06/05/2022 6:39 AM by External Provider: Consultation - GI Scan on 06/05/2022 7:13 AM by External Provider: Colonoscopy Scan on 06/05/2022 7:14 AM by External Provider: Colonoscopy Eliza Beckett MA [facility] 06-08-2022 History of Present illness Narrative Scan on 06/05/2022 6:39 AM by External Provider: Consultation - GI Scan on 06/05/2022 7:13 AM by External Provider: Colonoscopy Scan on 06/05/2022 7:14 AM by External Provider: Colonoscopy Eliza Beckett MA documented in this encounter [facility] 04-13-2022 Note HNO ID: [id number] Author: Eliza Beckett MA Service: ? Author Type: Market Development Trainer Type: Progress Notes Filed: 04/13/2022 8:37 PM Note Text: Scan on 04/09/2022 3:45 PM by External Provider: Consultation - General Surgery Eliza Beckett MA [facility] 04-13-2022 History of Present illness Narrative Scan on 04/09/2022 3:45 PM by External Provider: Consultation - General Surgery Eliza Beckett MA documented in this encounter [facility] 04-07-2022 Miscellaneous Notes Patient returned call and went over results, notes from Tanisha STEPHENS with understanding. Left message to call office on pt's cell phone. Attempted to call pt's cell phone & it was a fast busy. 04/07/2022 8:44 AM. Ailyn Roque LPN Let patient know that the rest of his labs are all normal. Tanisha Garcia PA-C documented in this encounter [facility] 04-06-2022 Note HNO ID: [id number] Author: Jared Robertson MD Service: ? Author Type: Physician Type: Progress Notes Filed: 04/06/2022 7:26 PM Note Text: Medicare Yearly Visit Medical B eligibilty date 11/15/2005 Date of last exam 03/29/2021 PAST MEDICAL HISTORY PAST MEDICAL HISTORY Diagnosis Date AAA (abdominal aortic aneurysm) (HCC) Abdominal pain, left upper quadrant Allergic rhinitis, cause unspecified Benign neoplasm of colon Bronchitis, not specified as acute or chronic Cardiac dysrhythmia, unspecified Coronary atherosclerosis of unspecified type of vessel, three affiliated or graft Degeneration of lumbar or lumbosacral intervertebral disc Diaphragmatic hernia without mention of obstruction or gangrene Enlargement of lymph nodes Esophageal reflux Hx of carotid stenosis Impotence of organic origin Irritable bowel syndrome Lumbago Other and unspecified hyperlipidemia Other dyspnea and respiratory abnormality Other malaise and fatigue past medical history skin cancer forehead--unsure which kind Psoriasis Subclavian artery stenosis, right (HCC) 06/17/2017 US 06/16/2017 50-99% Thrombocytopenia, unspecified (HCC) Unspecified constipation PAST SURGICAL HISTORY PAST SURGICAL HISTORY Procedure Laterality Date 2D ECHO (EXEP) 01/30/14 EF=60%, LVH, no valve abnormalities COLONOSCOPY 09/21/2014 Dr. Bright, polyp, repeat 3 yrs COLONOSCOPY W/BX 11/22/07 ENDOSCOPY UPPER-EGD/M24 LAP CHOLECYSTECT/CHOLANGIOGRAPHY 04-12-09 PAST SURGICAL HISTORY OF 11/2014 AAA repair PAST SURGICAL HISTORY OF 2015 both eyes cataract removal. PAST SURGICAL HISTORY OF 10/13/2017 right shoulder surgery per [facility] REPAIR UMBILICAL RENÉE,5+Y/O,REDUC 04-12-09 STRESS TEST 02/27/2014 WNL Patient has no known allergies. Medications reviewed: Yes FAMILY HISTORY FAMILY HISTORY Problem Relation Age of Onset Multiple Sclerosis Brother living Colon Cancer Father 74 of metastatic brain CA Diabetes Father other (schiophrenia) Sister doing ok since e;ectroshock Alzheimer's Disease Mother SOCIAL HISTORY: SOCIAL HISTORY Social History Marital status: Single Spouse name: Years of education: Number of children: Social History Main Topics Smoking status: Former Smoker Packs/day: 1.00 Years: 8.00 Quit date: 02/15/1974 Smokeless tobacco: Never Used Comment: NO EXPOSURE TO 2ND HAND SMOKE Alcohol use: Yes Comment: occasionally Drug use: No Sexual activity: Yes Partners with: Female Christiano walks 4-5 times a week for 1-2 miles. He watches his diet for sodium, low fat and low cholesterol most of the time. List of current specialists seen: Dr. Aguilar ([facility]), Torito Carbone (Vascular) Ashish Carbone (ortho) Dr. Bright (gastro) Dr. Ortiz (cardio) End of Live Planning discussed including patients advanced directive wishes: Yes I am willing to follow Christiano's advanced directives. Depression screen He in the past two weeks has not felt down or depressed. Functional Ability/Safety Screen 1. Was the patient's timed Up and Go test unsteady or longer than 30 seconds? No 2. Does the patient need help with the phone, transportation, shopping,preparing meals, housework, laundry, medications or managing money? No 3. Does your home have rugs in the hallway, lack of grab bars in the bathroom, lack of handrails on the stairs or have poor lighting? No Hearing Evaluation: normal PHYSICAL EXAM BP 118/74 (BP Site: Right Arm, BP Position: Sitting, BP Cuff Size: Regular Adult) Pulse (!) 50 Resp 16 Ht 181.6 cm (5' 11.5 ) Wt 80.7 kg (178 lb) BMI 24.48 kg/m? Alert and oriented X 3: YES Body mass index is 24.48 kg/m?. See below ASSESSMENT/PLAN: 81 year old male The following prevention plan was discussed during the office visit and provided to the patient: See below Jared Robertson MD Chief Complaint Patient presents with: Medicare Wellness Exam HPI Christiano Sorensen is a 81 year old male who presents here today for Medicare Annual Visit. Patient with Hx of AAA, Carotid artery disease, CAD, GERD, funez's, elevated fasting blood sugar, Hyperlipidemia, Waldenstrom's macroglobulinemia, Anemia, thrombocytopenia, allergic Rhinitis, insomnia, chronic bronchitis, IBS, BPH as well as those reviewed and addressed below and in ROS. Patient has been doing ok. Had a partial wrap of his esophagus for hiatal hernia. Still recovering from this. Past medical history, appointments, medications, allergies reviewed. 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 Bright Benign non-nodular prostatic hyperplasia without lower urinary tract symptoms 10/23/2015 Bilateral carotid artery stenosis 10/07/[address] Rojas, : 11/01/14 less than (more content not included)... [facility] 04-06-2022 Instructions Jared Robertson MD - 04/06/2022 3:31 PM EST Consider getting the shingrix vaccine for the prevention of shingles from a local pharmacy documented in this encounter [facility] 04-06-2022 History of Present illness Narrative Medicare Yearly Visit Medical B eligibilty date 11/15/2005 Date of last exam 03/29/2021 PAST MEDICAL HISTORY PAST MEDICAL HISTORY Diagnosis Date AAA (abdominal aortic aneurysm) (HCC) Abdominal pain, left upper quadrant Allergic rhinitis, cause unspecified Benign neoplasm of colon Bronchitis, not specified as acute or chronic Cardiac dysrhythmia, unspecified Coronary atherosclerosis of unspecified type of vessel, three affiliated or graft Degeneration of lumbar or lumbosacral intervertebral disc Diaphragmatic hernia without mention of obstruction or gangrene Enlargement of lymph nodes Esophageal reflux Hx of carotid stenosis Impotence of organic origin Irritable bowel syndrome Lumbago Other and unspecified hyperlipidemia Other dyspnea and respiratory abnormality Other malaise and fatigue past medical history skin cancer forehead--unsure which kind Psoriasis Subclavian artery stenosis, right (HCC) 06/17/2017 US 06/16/2017 50-99% Thrombocytopenia, unspecified (HCC) Unspecified constipation PAST SURGICAL HISTORY PAST SURGICAL HISTORY Procedure Laterality Date 2D ECHO (EXEP) 01/30/14 EF=60%, LVH, no valve abnormalities COLONOSCOPY 09/21/2014 Dr. Bright, polyp, repeat 3 yrs COLONOSCOPY W/BX 11/22/07 ENDOSCOPY UPPER-EGD/M24 LAP CHOLECYSTECT/CHOLANGIOGRAPHY 04-12-09 PAST SURGICAL HISTORY OF 11/2014 AAA repair PAST SURGICAL HISTORY OF 2015 both eyes cataract removal. PAST SURGICAL HISTORY OF 10/13/2017 right shoulder surgery per [facility] REPAIR UMBILICAL RENÉE,5+Y/O,REDUC 04-12-09 STRESS TEST 02/27/2014 WNL Patient has no known allergies. Medications reviewed: Yes FAMILY HISTORY FAMILY HISTORY Problem Relation Age of Onset Multiple Sclerosis Brother living Colon Cancer Father 74 of metastatic brain CA Diabetes Father other (schiophrenia) Sister doing ok since e;ectroshock Alzheimer's Disease Mother SOCIAL HISTORY: SOCIAL HISTORY Social History Marital status: Single Spouse name: Years of education: Number of children: Social History Main Topics Smoking status: Former Smoker Packs/day: 1.00 Years: 8.00 Quit date: 02/15/1974 Smokeless tobacco: Never Used Comment: NO EXPOSURE TO 2ND HAND SMOKE Alcohol use: Yes Comment: occasionally Drug use: No Sexual activity: Yes Partners with: Female Christiano walks 4-5 times a week for 1-2 miles. He watches his diet for sodium, low fat and low cholesterol most of the time. List of current specialists seen: Dr. Aguilar ([facility]), Torito Carbone (Vascular) Ashish Carbone (ortho) Dr. Bright (gastro) Dr. Ortiz (cardio) End of Live Planning discussed including patients advanced directive wishes: Yes I am willing to follow Christiano's advanced directives. Depression screen He in the past two weeks has not felt down or depressed. Functional Ability/Safety Screen 1. Was the patient's timed Up and Go test unsteady or longer than 30 seconds? No 2. Does the patient need help with the phone, transportation, shopping,preparing meals, housework, laundry, medications or managing money? No 3. Does your home have rugs in the hallway, lack of grab bars in the bathroom, lack of handrails on the stairs or have poor lighting? No Hearing Evaluation: normal PHYSICAL EXAM BP 118/74 (BP Site: Right Arm, BP Position: Sitting, BP Cuff Size: Regular Adult) Pulse (!) 50 Resp 16 Ht 181.6 cm (5' 11.5 ) Wt 80.7 kg (178 lb) BMI 24.48 kg/m Alert and oriented X 3: YES Body mass index is 24.48 kg/m . See below ASSESSMENT/PLAN: 81 year old male The following prevention plan was discussed during the office visit and provided to the patient: See below Jared Robertson MD Chief Complaint Patient presents with: Medicare Wellness Exam HPI Christiano Sorensen is a 81 year old male who presents here today for Medicare Annual Visit. Patient with Hx of AAA, Carotid artery disease, CAD, GERD, funez's, elevated fasting blood sugar, Hyperlipidemia, Waldenstrom's macroglobulinemia, Anemia, thrombocytopenia, allergic Rhinitis, insomnia, chronic bronchitis, IBS, BPH as well as those reviewed and addressed below and in ROS. Patient has been doing ok. Had a partial wrap of his esophagus for hiatal hernia. Still recovering from this. Past medical history, appointments, medications, allergies reviewed. 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 Bright Benign non-nodular prostatic hyperplasia without lower urinary tract symptoms 10/23/2015 Bilateral carotid artery stenosis 10/07/[address] Rojas, US: 11/01/14 less than 50% bilaterally, no change 10/2015, no change 06/16/2017: bilaterally 20-40% Cardiac dysrhythmia, unspecified Chronic bronchitis (HCC) 10/09/2005 Chronic low back pain without sciatica 10/07/2015 Chronic pain syndrome 10/23/2015 for lymphoma pain and diverticulsis pain. On Neurontin 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 10/07/2015 Current use of proton pump inhibitor 11/11/2016 DDD (degenerative disc disease), lumbar 10/07/2015 Degeneration of lumbar or lumbosacral intervertebral disc Diaphragmatic hernia without mention of obstruction or gangrene Elevated fasting blood sugar 11/18/2017 Enlargement of lymph nodes Erectile dysfunction 10/07/2015 Family history of dementia 10/07/2015 GERD without esophagitis 10/07/[address] 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 pt to go see Dr. Francisco 05/2018 Palpitations 06/07/2018 Chronic, typically at night laying on his left side. W/U with event monitor in past was normal per cardio. past medical history skin cancer forehead--unsure which kind Primary insomnia 10/07/2015 Psoriasis Rosacea 11/11/2016 Subclavian artery stenosis, right (HCC) 06/17/2017 US 06/16/2017 50-99% Thrombocytopenia (HCC) 10/07/2015 Waldenstrom's macroglobulinemia (HCC) 10/07/2015 Previous Surgical History PAST SURGICAL HISTORY Procedure Laterality Date 2D ECHO (EXEP) 01/30/14 EF=60%, LVH, no valve abnormalities COLONOSCOPY 09/21/2014 Dr. Bright, polyp, repeat 3 yrs COLONOSCOPY 02/17/2018 repeat 3 yrs, Dr. Bright COLONOSCOPY W/BIOPSY SINGLE/MULTIPLE 11/22/07 ENDOSCOPY UPPER-EGD/M24 LAPS SURG CHOLECYSTECTOMY W/CHOLANGIOGRAPHY 04-12-09 PAST SURGICAL HISTORY OF 11/2014 AAA repair PAST SURGICAL HISTORY OF 2015 both eyes cataract removal. PAST SURGICAL HISTORY OF 10/13/2017 right shoulder surgery per [facility] RPR UMBILICAL HRNA 5 YRS/> REDUCIBLE 04-12-09 STRESS TEST 02/27/2014 WNL Family History FAMILY HISTORY Problem Relation Age of Onset Multiple Sclerosis Brother living Colon Cancer Father 74 of metastatic brain CA Diabetes Father other (schiophrenia) Sister doing ok since e;ectroshock Alzheimer's Disease Mother Patient Allergies ALLERGIES Allergen Reactions Elavil [Amitriptyli* Other: See Comments Tired and depressed feeling Current Medications Current Outpatient Medications on File Prior to Visit Medication Sig rosuvastatin (CRESTOR) 20 mg tablet Take 1 tablet by mouth once daily. omeprazole (PRILOSEC) 10 mg capsule Take 10 mg by mouth once daily. albuterol HFA (PROAIR HFA) 90 mcg/actuation inhaler Inhale 2 Puffs as instructed every 6 hours as needed. esomeprazole (NEXIUM) 40 mg capsule Take 1 capsule by mouth twice daily before meals. Per Gastro, Dr. Bright (Patient not taking: Reported on 12/09/2021) lactulose (DUPHALAC, CONSTULOSE) 10 g/15 mL soln Take 30 mL by mouth once daily. Per Cardio Dr. Ortiz (Patient not taking: Reported on 09/18/2021 ) MEDICATION, NON-DATABASE Takes med for digestive problems but pt doesn't remember name (Patient not taking: Reported on 06/13/2020 ) aspirin(ASPIR-81 81 MG TAB) One tabs every morning (Patient not taking: Reported on 04/06/2022) No current facility-administered medications on file prior to visit. Social History Social History Tobacco Use Smoking status: Former Packs/day: 1.00 Years: 8.00 Pack years: 8.00 Types: Cigarettes Quit date: 02/15/1974 Years since quittin.1 Smokeless tobacco: Never Tobacco comments: NO EXPOSURE TO 2ND HAND SMOKE Vaping Use Vaping Use: Never used Substance Use Topics Alcohol use: Yes Comment: occasionally Drug use: No Review of Symptoms REVIEW OF SYSTEMS GENERAL: No weight loss, malaise or fevers HEENT: Negative for frequent or significant headaches, No changes in hearing or vision, no nose bleeds or other nasal problems NECK: Negative for lumps, goiter, pain and significant neck swelling RESPIRATORY: Negative for cough, hemoptysis, wheezing, COPD, dyspnea or shortness of breath CARDIOVASCULAR: Negative for chest pain, leg swelling, hypertension, CHF or palpitations GI: No nausea, vomiting, or increased diarrhea. Denies any GERD. No blood : No history of dysuria, blood. Nocturia may be 1-3 times a night MUSCULOSKELETAL: Negative for new or changes in his typical joint pain or swelling, back pain or muscle pain SKIN: Negative for lesions, rash, and itching PSYCH: Negative for sleep disturbance, mood disorder and recent psychosocial stressors HEMATOLOGY/LYMPHOLOGY: Negative for prolonged bleeding, bruising easily or swollen nodes ENDOCRINE: Negative for cold or heat intolerance, polyuria, polydipsia and goiter NEURO: No history of headaches, syncope, paralysis, seizures or tremors EXAM: BP 118/74 (BP Site: Right Arm, BP Position: Sitting, BP Cuff Size: Regular Adult) Pulse (!) 50 Resp 16 Ht 181.6 cm (5' 11.5 ) Wt 80.7 kg (178 lb) BMI 24.48 kg/m Last 5 Encounter Wt Readings: Date: Wt: 04/06/2022 80.7 kg (178 lb) 12/09/2021 83.5 kg (184 lb) 09/26/2021 81.2 kg (179 lb) 09/18/2021 81.7 kg (180 lb 3.2 oz) 08/11/2021 82.6 kg (182 lb) General Appearance: Well appearing, alert, in no acute distress, well-hydrated, well nourished.. Skin: Skin color, texture, turgor normal, no suspicious rashes or lesions. Head: Normocephalic, no masses, lesions, tenderness or abnormalities. Eyes: Anicteric sclera. Pupils are equally round and reactive to light. Extraocular movements are intact. . Ears: External ears, TM's normal, canals clear. Neck: Supple, no adenopathy; thyroid symmetric, normal size, no bruits. Lungs: Lungs clear to auscultation. No wheezing, rhonchi, rales.. Heart: RRR without murmur, gallop, or rubs. No ectopy. Abdomen: Normal abdominal exam, Abdomen soft, non-tender. Bowel sounds normal. No masses, organomegaly. Extremities: No deformities, edema, skin discoloration, Good capillary refill. . Musculoskeletal: Muscular strength intact, No joint swelling, deformity, or tenderness. Peripheral Pulses: Normal. Neurologic: Gait normal. Reflexes normal and symmetric. Sensation to light touch and crainal nerves 2-12 intact.. Genitalia: Normal, Penis normal. No urethral discharge. Scrotum normal to palpation. No hernia.. Health Maintenance List SHINGRIX VACCINE(1 of 2) Never done DTAP,TDAP,TD(2 - Td or Tdap) due on 10/31/2020 COVID-19 VACCINE(4 - Booster for Pfizer series) due on 01/05/2021 INFLUENZA(1) due on 10/16/2021 ADVANCE DIRECTIVE DISCUSSION Never done DEPRESSION ASSESSMENT Never done LDL CHOLESTEROL due on 09/23/2022 DIABETES SCREEN due on 09/23/2024 PNEUMOCOCCAL: 65+ Completed Data reviewed Component Latest Ref Rng & Units 04/06/2022 WBC 3.70 - 11.00 k/uL 5.27 RBC 4.20 - 6.00 m/uL 4.10 (L) Hemoglobin 13.0 - 17.0 g/dL 13.1 Hematocrit 39.0 - 51.0 % 38.4 (L) MCV 80.0 - 100.0 fL 93.7 MCH 26.0 - 34.0 pg 32.0 MCHC 30.5 - 36.0 g/dL 34.1 RDW-CV 11.5 - 15.0 % 12.7 Platelet Count 150 - 400 k/uL 187 MPV 9.0 - 12.7 fL 10.4 Neut% % 64.3 Abs Neut (ANC) 1.45 - 7.50 k/uL 3.39 Lymph% % 22.0 Abs Lymph 1.00 - 4.00 k/uL 1.16 [place]% % 8.5 Abs [place] <0.87 k/uL 0.45 Eosin% % 4.2 Abs Eosin <0.46 k/uL 0.22 Baso% % 0.8 Abs Baso <0.11 k/uL 0.04 Immature Gran % % 0.2 IMMATURE GRANS (ABS) <0.10 k/uL <0.03 NRBC /100 WBC 0.0 Absolute nRBC <0.01 k/uL <0.01 DTYPE Auto Color Yellow Yellow Clarity Clear Clear Glucose, Urine Trace, Negative Negative Bilirubin, Urine Negative Negative Ketones, Urine Trace, Negative Negative Specific [place], Ur 1.005 - 1.030 1.019 Hemoglobin/Blood,Ur Negative, Trace Negative pH, Urine 5.0 - 8.0 6.0 Protein, Urine Trace, Negative Negative Urobilinogen Negative Negative Nitrites Negative Negative Leukest Negative, 25 [place]/uL Negative WBC, Urine 0-5 /HPF 0-5 /HPF RBC, Urine 0-3 /HPF 0-3 /HPF Epithelial Cells /HPF Few A/P ASSESSMENT/PLAN: 1. Medicare annual wellness visit, subsequent - ICD9: V70.0, ICD10: Z00.00 (primary diagnosis) - Counseled on healthy diet and regular exercise - Follow up for annual exam in one year 2. Mixed hyperlipidemia - ICD9: 272.2, ICD10: E78.2 - to be determined upon return of lab results - Continue current medication. - Encouraged following a low fat, low cholesterol diet. - Discussed the benefits of regular aerobic exercise and weight loss. - Encouraged following a low carbohydrate, healthy oil intake diet. 3. Chronic bronchitis, unspecified chronic bronchitis type (HCC) - ICD9: 491.9, ICD10: J42 - clinically stable 4. Elevated fasting blood sugar - ICD9: 790.21, ICD10: R73.01 - await labs. 5. 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 - ICD9: 414.3, ICD10: I25.10, I25.83 - clinically doing well no changes. Cont f/u with cardio 6. GERD without esophagitis - ICD9: 530.81, ICD10: K21.9 - not needing Tx since procedure (partial wrap) 7. Abdominal aortic aneurysm (AAA) without rupture, unspecified part (HCC) - ICD9: 441.4, ICD10: I71.40 - cont management per vascular 8. Bilateral carotid artery stenosis - ICD9: 433.10, 433.30, ICD10: I65.23 - as per #7 9. Subclavian artery stenosis, right (HCC) - ICD9: 447.1, ICD10: I77.1 - as per #7 10. 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 Waldenstrom's macroglobulinemia (HCC) - ICD9: 273.3, ICD10: C88.0 - as per #10 12. Thrombocytopenia (HCC) - ICD9: 287.5, ICD10: D69.6 - as per #10 13. Anemia, unspecified type - ICD9: 285.9, ICD10: D64.9 - as per #10 14. Primary insomnia - ICD9: 307.42, ICD10: F51.01 - stable 15. Erectile dysfunction, unspecified erectile dysfunction type - ICD9: 607.84, ICD10: N52.9 - stable 16. Benign non-nodular prostatic hyperplasia without lower urinary tract symptoms - ICD9: 600.90, ICD10: N40.0 - stable 17. Advance directive discussed with patient - ICD9: V65.49, ICD10: Z71.89 - patient declined packets. F/u 6 months routine check BMP, Lipid, A1c prior I spent a total of 40 minutes on the date of the service which included preparing to see the patient, [id number] patient care, completing clinical documentation, performing a medically appropriate examination, counseling and educating the patient/family/caregiver and ordering medications, tests, or procedures. Jared Robertson MD documented in this encounter [facility] 03-25-2022 Note HNO ID: [id number] Author: Eliza Beckett MA Service: ? Author Type: Market Development Trainer Type: Progress Notes Filed: 03/25/2022 12:11 PM Note Text: Scan on 03/23/2022 11:58 AM by External Provider: EGD Scan on 03/23/2022 1:20 PM by External Provider: KAPIL [facility] 03-25-2022 History of Present illness Narrative Scan on 03/23/2022 11:58 AM by External Provider: EGD Scan on 03/23/2022 1:20 PM by External Provider: GI documented in this encounter [facility] 01-30-2022 History of Present illness Narrative History of Present Illness: Mr. Sorensen presents for 6 month follow up of his WM. Interval History 01/30/2022 Mr. Sorensen presents today for follow up and evaluation. He denies fever, night sweats, weight loss, new lymphadenopathy, SOB, CP, nausea, vomiting, diarrhea, constipation, numbness/tingling, swelling, rash. 08/01/2021 - Mr. Tello presents today for follow up and evaluation. He presents with his today. Reports fatigue, occasional muscle/joint aches and occasional balance issues. Feels burning on occasion of lips and thighs. He has had dry eyes and has recently followed up with eye provider. 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 He denies fever, night sweats, weight loss, new lymphadenopathy, SOB, CP, nausea, vomiting, diarrhea, constipation, numbness/tingling, swelling, rash. Disease History: Mr. Sorensen is a 81 y.o. 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 He has been monitored on surveillance and his counts have been stable with no lymphadenopathy. He was seen by Dr. Kaden Calderon, at the [facility] which I believe is associated with [facility], as part of his workup in conjunction with seeing Dr. Calderon. He had a bone marrow biopsy on 03/04/2012 which was remarkable for several circumscribed interstitial lymphoid aggregates composed of small, round lymphocytes that were noted in the clot section. Immuno stains showed that aggregates were composed of CD3-positive T-cells predominantly and with fewer admixed [id number] B cells. These aggregates accounted for less than 5% of the overall cellularity. Immuno stains for CD138 kappa and lambda cytoplasmic immunoglobulin were done and showed that the plasma cells represented less than 5% of overall cellularity and appeared polytypic. Flow cytometry of the marrow showed a low level B cell population (0.6% of total cells) with an otherwise unremarkable phenotype aside from an elevated kappa to lambda ratio (4.4) that was suggestive of monoclonality. Specifically, regarding the 6% of total events that have CD45 and side scatter properties of lymphocytes. The lymphocytes were composed of a mixture of T cells 74% with the CD4:CD8 ratio 1.4, NK cells 6%, and B cells 20%. The B cells displayed an abnormal immunophenotype and expressed CD19, CD20, CD45, CD79b, and FMC7 with monocytic kappa surface light chain immunoglobulin and kappa to lambda ratio 4.4. The B cells were negative for CD5 and CD10 and these B cells represented approximately 0.6% of the total cells as mentioned. His cytogenetics were normal. At the time of his bone marrow biopsy on 03/04/2012, his CBC was rather unremarkable with a white blood cell count of 5.7, hemoglobin 14.4, platelets of 184,000 with 66% neutrophils, 31% lymphocytes, 2% monocytes, and rare plasmacytoid lymphocytes at 1%. He also had a CT chest, abdomen, and pelvis as part of his workup, the report of which I do not have, which the patient reports was remarkable for a small adrenal nodule, a prostate nodule, as well as a thick bladder. He does not report any splenomegaly or adenopathy or any other remarkable findings. These findings did prompt further evaluation with a PSA. His PSA was reported to me as normal and the urologist per report was not concerned about his thickened bladder finding. After this aforementioned workup, it was concluded by Dr. 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 Of note in addition to a normal CBC on 03/04/2012, he had a normal beta 2, LDH, creatinines, calcium, and albumin. Review of Systems: A full ROS was performed and negative other than reported in interval history. 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 Bronchitis past Cancer (HCC) 2012 Chest pain Diverticulosis Diverticulosis Hemorrhoids 2012 Hyperlipidemia IBS (irritable bowel syndrome) Infectious mononucleosis 1960 Lymphoma (HCC) 2012 Measles 1850 Pneumonia Whooping cough 0 Past Surgical History: Procedure Laterality Date COLONOSCOPY 2013 EGD W/ BX N/A 02/03/2013 Laterality: N/A; Surgeon: Jared Cline MD; Location: [facility] ENDOSCOPY COLONOSCOPY FOR COLORECTAL CANCER SCREENING HIGH RISK INDIVIDUAL N/A 02/03/2013 Laterality: N/A; Surgeon: Jared Cline MD; Location: [facility] ENDOSCOPY CHOLECYSTECTOMY LAPAROSCOPIC 2010 Current Outpatient Medications Medication Sig aspirin 81 MG Tab take 81 mg by mouth daily. Cetirizine HCl (ZYRTEC ALLERGY PO) as needed. LACTULOSE PO Take 30 mL by mouth daily. rosuvastatin 20 MG PO TABS take 20 mg by mouth daily. Allergies Allergen Reactions Not Able To Determine Deodorant - rash and itchiness. 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 His current has been with him for 10+ years but his children are from a previous relationship Family History Problem Relation Age of Onset Other - Specify Father severe allergy to shellfish, colon cancer Diabetes Father Colorectal Cancer Father 72 Neurologic Disease Mother Alzheimers Neurologic Disease Brother MS Cancer- Other Paternal Grandfather testicular cancer BP 144/75 (BP Position: Sitting) Pulse 60 Temp 97.6 F (36.4 C) (Oral) Resp 18 Ht 1.854 m (6' 1 ) Wt 83.4 kg (183 lb 14.4 oz) SpO2 96% BMI 24.26 kg/m Smoking Status Former Physical Examination: General: Alert and oriented, no acute distress. HEENT: PERRL, EOMI. Conjunctiva non-injected. Heart: Regular rate and rhythm, no murmurs. Lungs: Clear to auscultation with no rhonci or wheezes. Abdomen: Soft, non-tender, non-distended. No splenomegaly. Musculoskeletal: Normal strength and range of motion. Neurologic: CN intact with no focal neurologic deficits. Skin: No rashes or lesions noted. Extremities: Normal with no edema. Lymph: I do not palpate any cervical, supraclavicular, axillary or inguinal adenopathy. Body mass index is 24.26 kg/m . ECOG Performance Status: 0 Lab Results Component Value Date WBC 5.63 01/30/2022 HGB 14.0 01/30/2022 HCT 40.3 01/30/2022 PLATELET 162 01/30/2022 MCV 94.4 01/30/2022 Lab Results Component Value Date SODIUM 137 01/30/2022 POTASSIUM 4.2 01/30/2022 CHLORIDE 105 01/30/2022 CO2 28 01/30/2022 BUN 21 01/30/2022 CREATSERUM 1.17 01/30/2022 Lab Results Component Value Date ALT 16 01/30/2022 AST 18 01/30/2022 ALKPHOS 79 01/30/2022 BILITOTAL 1.2 01/30/2022 IgM 829 (previous 734), monoclonal protein pending Assessment/Plan: Mr. Sorensen is a 78 yo patient with a history of WM with a low level IgM diagnosed in 2012 who has never required therapy. He was a prior patient of Dr. Jackson who established care in our clinic in March 2016. 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 Sorensen presents today for 6 month follow up. Overall continued to do well from [place]strom standpoint. He has no evidence of progressive disease today by history, exam or labs. IgM and monoclonal protein pending. Will follow-up on monoclonal protein but he otherwise has no indication for treatment. We have previously discussed that there are several options for treatment when required. Will RTC in 6 months. 08/01/2021 - Mr. Sorensen presents today for follow up and evaluation. He has reported fatigue, muscle/joint aches and occasional balance issues. On exam no lymphadenopathy nor splenomegaly. Labs reviewed note minimal macrocytic without anemia and WBC and Platelets normal and CMP and LDH normal. SPEP is still pending. Will follow up after remainder labs result. There is no evidence of disease progression by labs, history or exam. Plan for patient to follow up in 6 months. No indications for treatment at this time. He knows to contact us sooner if he has questions, concerns or issues. Discharge instructions given with verbal understanding voiced. Encouraged to call with any questions or concerns. I have personally seen and examined Mr. Sorensen and discussed with him the plan of care. I have reviewed all of the laboratory data and available test results and discussed the case in detail with the physician data control assistant, Esdras Retana. I agree with the above documented history, physical examination findings and medical decision making. Mr. Sorensen is a 81 yo patient with a history of WM with a low level IgM diagnosed in 2012 who has never required therapy. He was a prior patient of Dr. Jackson who established care in our clinic in March 2016. 1) WM Mr. Sorensen presents today for 6 month follow up. He is doing well from our standpoint. No B symptoms. Appetite stable. He does have a hiatal hernia and recently underwent testing for this to decide if he will require surgical intervention. Labs reviewed, monoclonal protein pending but total IgM with minimal elevation and CBC stable with hgb 14.0. He has no evidence of progressive disease today by history, exam or labs - his IgM is overall stable as is his hemoglobin. He has no indication for treatment. We have previously discussed that there are several options for treatment when required and can include single agent rituximab, BTK inhibitor with ibrutinib zanubrutinib - the phase III data with this, BR and P-ilketwl-tos with acalabrutinib and obinutuzumab, venetoclax, also being studied. He will return in 6 months with labs and exam. Okay for surgical intervention on his hiatal hernia if required. I have answered all of his questions. He knows to contact us sooner if he has questions, concerns or issues. -KJM documented in this encounter [facility] 01-30-2022 Instructions Ligia Barrett RN - 01/30/2022 11:00 AM EST Primary Care Team Dr. Suzette Russell CNP- Certified Nurse Practitioner Esdras Barrett RN - Primary Nurse Karlene Tamez RN-Primary Nurse Israel Diaz RN - Patient Care Steam Tank Operator [phone] Contact Numbers: Clinic Phone & Appointment Changes: [phone] Clinic For Medication Refills: If possible please notify us the beginning of the week for any Narcotic refills you may need if not coming in that week for an appointment. We attempt to fill them as soon as they come in but Dr. Aguilar is only in the clinic on . Please call your pharmacy to verify when to fish bait picker. Allow one week for refills, please do not let your prescription run out. We will call them in to the pharmacy of your request, using the one listed in your chart if not specified differently. You will not be contacted about the refill except for any questions or concerns. Please call your pharmacy to verify when to fish bait picker. All Paperwork: Please allow up to 2 weeks for all disability, FMLA, etc to be filled out. Please specify what your request is as to what and where we should send completed paperwork. (This is to inform us if we should send the completed papers to you or directly to your employer). Ligia or Karlene will work with Dr Aguilar to fill out this paperwork, and will only call to inform you the paperwork is completed and sent if requested. [facility] MY Chart: When sending a message to the provider, please know that these messages will be received and answered by the primary nurse practitioner. The nurse practitioner will consult your physician when needed. The medical information you will have access to within the My Chart program is only selected portions of your entire chart, such as basic laboratory results, summary medical history, visit history, and selected billing information. It will also allow you to communicate with your health care provider through email. Please understand we do not place all results from labs, tests and procedures. To provide you with the best quality care available we need to be able to discuss these results with you personally. If you are unable to obtain the results of a test that you can't find within the My Chart please feel free to call us and we will get back to you with that information. Please call us with any questions or concerns that you may have. Please call if temperature is greater than 100.4 orally. Results for orders placed or performed in visit on 01/30/22 COMPREHENSIVE METABOLIC PANEL Result Value Ref Range Sodium 137 135 - 145 mmol/L Potassium 4.2 3.5 - 5.0 mmol/L Chloride 105 98 - 108 mmol/L BUN 21 7 - 25 mg/dL Creatinine 1.17 0.70 - 1.30 mg/dL Glucose 93 70 - 99 mg/dL Bilirubin Total 1.2 <1.5 mg/dL Albumin 4.2 3.5 - 5.0 g/dL Total Protein 7.1 6.4 - 8.3 g/dL AST 18 10 - 39 U/L ALP 79 32 - 126 U/L Calcium 9.4 8.6 - 10.5 mg/dL CO2 28 21 - 31 mmol/L ALT 16 10 - 52 U/L Bun/Crea Ratio 18 Osmolality (Calculated) 290 278 - 305 mOsm/kg Anion Gap 8 7 - 17 mmol/L eGFR, CKD-EPI, Male 63 >=60 mL/min/1.73m2 LACTATE DEHYDROGENASE Result Value Ref Range LD Total 139 100 - 190 U/L CBC AND ELECTRONIC DIFF Result Value Ref Range WBC Count 5.63 3.73 - 10.10 K/uL RBC Count 4.27 (L) 4.38 - 5.83 M/uL Hemoglobin 14.0 13.4 - 16.8 g/dL Hematocrit 40.3 39.6 - 48.8 % Mean Cell Volume 94.4 79.0 - 94.5 fL Mean Cell Hgb 32.8 26.1 - 33.3 pg Mean Cell Hgb Conc 34.7 31.9 - 36.5 g/dL RBC Distribution 12.9 10.9 - 14.3 % Platelet Count 162 146 - 337 K/uL Mean Platelet Volume 9.8 8.7 - 12.3 fL DIFF STATUS Electronic Differential Segs + Bands Auto 69.2 % Immature Grans % 0.2 % Lymphocyte % Auto 19.7 % Monocyte % Auto 8.3 % Eosinophil % Auto 2.1 % Basophil % Auto 0.5 % Nucleated RBC 0.0 <=0.2 /100 WBC Segs + Bands,Absolute Auto 3.89 1.57 - 6.19 K/uL Immature Grans Absolute <0.04 <=0.07 K/uL Abs Lymph Auto 1.11 0.83 - 3.57 K/uL Abs [place] Auto 0.47 0.24 - 0.93 K/uL Abs Eos Auto 0.12 0.00 - 0.48 K/uL Abs Baso Auto <0.04 0.00 - 0.09 K/uL SPE SERUM TOTAL PROTEIN Result Value Ref Range Total Protein 6.9 6.4 - 8.3 g/dL documented in this encounter [facility] 12-09-2021 History of Present illness Narrative Images from the original note were not included. [facility] DEPARTMENT OF VASCULAR SURGERY OUTPATIENT VISIT DATE December 09, 2021 OUTPATIENT VISIT TYPE CONSULTATION SERVICE DATE: 12/09/2021 SERVICE TIME: 8:12 AM PRIMARY CARE PHYSICIAN: Jared Robertson MD REFERRING PROVIDER: Jared Robertson [facility] [id number] Consult requested for an opinion regarding the evaluation and treatment of the above. My final impression and recommendations will be communicated back to the requesting physician by way of the shared medical record or letter via [place] mail. CHIEF COMPLAINT: AAA HISTORY OF PRESENT ILLNESS: Vascular consultation at the request of Dr. Jared Robertson. A copy of this consultation note will be provided to the requesting physician by way of shared Medical record or letter to requesting physician via [place] mail. Mr. Sorensen is a 81 year old male who is seen today for AAA and carotid artery stenosis. He had undergone EVAR with Dr. Rojas years prior for asymptomatic aneurysm. He was also followed for asymptomatic carotid artery stenosis. He denies focal neurologic symptoms. He would like to establish care in [place] as Dr. Rojas retired. Denies abdominal pain or claudication. 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 Bright Benign non-nodular prostatic hyperplasia without lower urinary tract symptoms 10/23/2015 Bilateral carotid artery stenosis 10/07/[address] Rojas, : 11/01/14 less than 50% bilaterally, no change 10/2015, no change 06/16/2017: bilaterally 20-40% Cardiac dysrhythmia, unspecified Chronic bronchitis (HCC) 10/09/2005 Chronic low back pain without sciatica 10/07/2015 Chronic pain syndrome 10/23/2015 for lymphoma pain and diverticulsis pain. On Neurontin 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 10/07/2015 Current use of proton pump inhibitor 11/11/2016 DDD (degenerative disc disease), lumbar 10/07/2015 Degeneration of lumbar or lumbosacral intervertebral disc Diaphragmatic hernia without mention of obstruction or gangrene Elevated fasting blood sugar 11/18/2017 Enlargement of lymph nodes Erectile dysfunction 10/07/2015 Family history of dementia 10/07/2015 GERD without esophagitis 10/07/[address] 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 pt to go see Dr. Francisco 05/2018 Palpitations 06/07/2018 Chronic, typically at night laying on his left side. W/U with event monitor in past was normal per cardio. past medical history skin cancer forehead--unsure which kind Primary insomnia 10/07/2015 Psoriasis Rosacea 11/11/2016 Subclavian artery stenosis, right (HCC) 06/17/2017 US 06/16/2017 50-99% Thrombocytopenia (HCC) 10/07/2015 Waldenstrom's macroglobulinemia (HCC) 10/07/2015 PAST SURGICAL HISTORY Procedure Laterality Date 2D ECHO (EXEP) 01/30/14 EF=60%, LVH, no valve abnormalities COLONOSCOPY 09/21/2014 Dr. Bright, polyp, repeat 3 yrs COLONOSCOPY 02/17/2018 repeat 3 yrs, Dr. Bright COLONOSCOPY W/BIOPSY SINGLE/MULTIPLE 11/22/07 ENDOSCOPY UPPER-EGD/M24 LAPS SURG CHOLECYSTECTOMY W/CHOLANGIOGRAPHY 04-12-09 PAST SURGICAL HISTORY OF 11/2014 AAA repair PAST SURGICAL HISTORY OF 2015 both eyes cataract removal. PAST SURGICAL HISTORY OF 10/13/2017 right shoulder surgery per [facility] UMBILICAL HRNA 5 YRS/> REDUCIBLE 04-12-09 STRESS TEST 02/27/2014 WNL SOCIAL HISTORY: Social History Tobacco Use Smoking status: Former Packs/day: 1.00 Years: 8.00 Pack years: 8.00 Types: Cigarettes Quit date: 02/15/1974 Years since quittin.8 Smokeless tobacco: Never Tobacco comments: NO EXPOSURE TO 2ND HAND SMOKE Vaping Use Vaping Use: Never used Substance Use Topics Alcohol use: Yes Comment: occasionally Drug use: No FAMILY HISTORY Problem Relation Age of Onset Multiple Sclerosis Brother living Colon Cancer Father 74 of metastatic brain CA Diabetes Father other (schiophrenia) Sister doing ok since e;ectroshock Alzheimer's Disease Mother MEDICATIONS: albuterol HFA (PROAIR HFA) 90 mcg/actuation inhaler Inhale 2 Puffs as instructed every 6 hours as needed. metroNIDAZOLE 1 % gel Apply 1 application to affected area once daily. Location: face clobetasol (TEMOVATE) 0.05 % ointment Apply to affected area twice daily. esomeprazole (NEXIUM) 40 mg capsule Take 1 capsule by mouth twice daily before meals. Per Gastro, Dr. Bright (Patient taking differently: Take 40 mg by mouth once daily. Per Gastro, Dr. Bright ) lactulose (DUPHALAC, CONSTULOSE) 10 g/15 mL soln Take 30 mL by mouth once daily. Per Cardio Dr. Ortiz (Patient not taking: Reported on 09/18/2021 ) MEDICATION, NON-DATABASE Takes med for digestive problems but pt doesn't remember name (Patient not taking: Reported on 06/13/2020 ) rosuvastatin (CRESTOR) 20 mg tablet Take 20 mg by mouth once daily. aspirin(ASPIR-81 81 MG TAB) One tabs every morning ALLERGIES: ALLERGIES Allergen Reactions Elavil [Amitriptyli* Other: See Comments Tired and depressed feeling REVIEW of SYSTEM: Constitutional: No weight loss, malaise or fevers. HEENT: Negative for frequent or significant headaches Respiratory: Negative for cough, wheezing, or shortness of breath Cardiovascular: Negative for chest pain, leg swelling or palpitations Gatrointestinal: Negative for abdominal discomfort, blood in stools or black stools or change in bowel habits Musculoskeletal: Negative for joint pain or swelling, back pain or muscle pain Endocrine: Negative for cold or heat intolerance, polyuria, polydipsia and goiter Hematology/Lymphatic: Negative for prolonged bleeding, bruising easily or swollen nodes Neurologic: No history or headaches, syncope, paralysis, seizures or tremors Integumentary: Negative for lesions, rash, and itching. PHYSICAL EXAM: VITALS: There were no vitals taken for this visit. General: Alert and oriented, No acute distress Integumentary: Normal color, no rash, no lesions. HEENT: EOM, pupils equal, round and reactive., No carotid bruits Cardiovascular: Pulse regular. Lungs: No chest deformities or chest wall tenderness. Abdomen: Soft, non-tender, no rigidity. Extremities: No deformity, no edema or tenderness, no joint swelling or clubbing. Neurological: Normal cognition and motor skills. Vascular: Posterior Tibial Right: Normal - Left: Normal Diagnostic tests reviewed for today's visit: Most recent labs Most recent imaging IMPRESSION: Mr. Sorensen is a 81 year old male with symptomatic varicose veins . PLAN and RECOMMENDATIONS: Will get updated Aortic Duplex and Carotid Duplex Continue current medication Will call with results and schedule follow up pending results SIGNATURE: Tata Porter DO PATIENT NAME: Christiano Sorensen DATE: December 09, 2021 TIME: 8:12 AM documented in this encounter [facility] 09-26-2021 History of Present illness Narrative Chief Complaint No chief complaint on file. HPI Christiano Sorensen is a 80 year old male who presents here today for Chronic Medical Conditions.. Patient with hx of CAD, hyperlipidemia, AAA, GERD, ckd, lymphoma, rosacea, and those as below. Patient recently dx with COVID and then took paxlovid which did seem to help. However he started getting additional symptoms and tested positive for rebound covid on 09/18/2021 Otherwise doing well. Past medical history, appointments, medications, allergies reviewed. 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 Bright Benign non-nodular prostatic hyperplasia without lower urinary tract symptoms 10/23/2015 Bilateral carotid artery stenosis 10/07/[address] Rojas, [place]: 11/01/14 less than 50% bilaterally, no change 10/2015, no change 06/16/2017: bilaterally 20-40% Cardiac dysrhythmia, unspecified Chronic bronchitis (HCC) 10/09/2005 Chronic low back pain without sciatica 10/07/2015 Chronic pain syndrome 10/23/2015 for lymphoma pain and diverticulsis pain. On Neurontin 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 10/07/2015 Current use of proton pump inhibitor 11/11/2016 DDD (degenerative disc disease), lumbar 10/07/2015 Degeneration of lumbar or lumbosacral intervertebral disc Diaphragmatic hernia without mention of obstruction or gangrene Elevated fasting blood sugar 11/18/2017 Enlargement of lymph nodes Erectile dysfunction 10/07/2015 Family history of dementia 10/07/2015 GERD without esophagitis 10/07/[address] 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 pt to go see Dr. Francisco 05/2018 Palpitations 06/07/2018 Chronic, typically at night laying on his left side. W/U with event monitor in past was normal per cardio. past medical history skin cancer forehead--unsure which kind Primary insomnia 10/07/2015 Psoriasis Rosacea 11/11/2016 Subclavian artery stenosis, right (HCC) 06/17/2017 US 06/16/2017 50-99% Thrombocytopenia (HCC) 10/07/2015 Waldenstrom's macroglobulinemia (HCC) 10/07/2015 Previous Surgical History PAST SURGICAL HISTORY Procedure Laterality Date 2D ECHO (EXEP) 01/30/14 EF=60%, LVH, no valve abnormalities COLONOSCOPY 09/21/2014 Dr. Bright, polyp, repeat 3 yrs COLONOSCOPY 02/17/2018 repeat 3 yrs, Dr. Bright COLONOSCOPY W/BIOPSY SINGLE/MULTIPLE 11/22/07 ENDOSCOPY UPPER-EGD/M24 LAPS SURG CHOLECYSTECTOMY W/CHOLANGIOGRAPHY 04-12-09 PAST SURGICAL HISTORY OF 11/2014 AAA repair PAST SURGICAL HISTORY OF 2016 both eyes cataract removal. PAST SURGICAL HISTORY OF 10/13/2017 right shoulder surgery per [facility] UMBILICAL HRNA 5 YRS/> REDUCIBLE 04-12-09 STRESS TEST 02/27/2014 WNL Family History FAMILY HISTORY Problem Relation Age of Onset Multiple Sclerosis Brother living Colon Cancer Father 74 of metastatic brain CA Diabetes Father other (schiophrenia) Sister doing ok since e;ectroshock Alzheimer's Disease Mother Patient Allergies ALLERGIES Allergen Reactions Elavil [Amitriptyli* Other: See Comments Tired and depressed feeling Current Medications Current Outpatient Medications on File Prior to Visit Medication Sig benzonatate (TESSALON PERLE) 100 mg capsule Take 1 capsule by mouth three times daily as needed for up to 10 days. metroNIDAZOLE 1 % gel Apply 1 application to affected area once daily. Location: face clobetasol (TEMOVATE) 0.05 % ointment Apply to affected area twice daily. albuterol HFA (PROAIR HFA) 90 mcg/actuation inhaler Inhale 2 Puffs as instructed every 6 hours as needed. rosuvastatin (CRESTOR) 20 mg tablet Take 20 mg by mouth once daily. aspirin(ASPIR-81 81 MG TAB) One tabs every morning esomeprazole (NEXIUM) 40 mg capsule Take 1 capsule by mouth twice daily before meals. Per GastroDr. Bright (Patient taking differently: Take 40 mg by mouth once daily. Per Gastro, Dr. Bright ) lactulose (DUPHALAC, CONSTULOSE) 10 g/15 mL soln Take 30 mL by mouth once daily. Per Cardio Dr. Ortiz (Patient not taking: Reported on 09/18/2021 ) MEDICATION, NON-DATABASE Takes med for digestive problems but pt doesn't remember name (Patient not taking: Reported on 06/13/2020 ) No current facility-administered medications on file prior to visit. Social History Social History Tobacco Use Smoking status: Former Packs/day: 1.00 Years: 8.00 Pack years: 8.00 Types: Cigarettes Quit date: 02/15/1974 Years since quittin.6 Smokeless tobacco: Never Tobacco comments: NO EXPOSURE TO 2ND HAND SMOKE Vaping Use Vaping Use: Never used Substance Use Topics Alcohol use: Yes Comment: occasionally Drug use: No Review of Symptoms REVIEW OF SYSTEMS GENERAL: No weight loss, malaise or fevers NECK: Negative for lumps, goiter, pain and significant neck swelling RESPIRATORY: Negative for cough, hemoptysis, wheezing, COPD, dyspnea or shortness of breath CARDIOVASCULAR: Negative for chest pain, leg swelling, hypertension, CHF or palpitations NEURO: No history of headaches, syncope, paralysis, seizures or tremors EXAM: BP 100/60 (BP Site: Left Arm, BP Position: Sitting, BP Cuff Size: Regular Adult) Pulse 60 Temp 36.9 C (98.4 F) Resp 18 Wt 81.2 kg (179 lb) BMI 24.38 kg/m General Appearance: Well appearing, alert, in no acute distress, well-hydrated, well nourished.. Neck: Supple, no adenopathy; thyroid symmetric, normal size, no bruits. Lungs: Lungs clear to auscultation. No wheezing, rhonchi, rales.. Heart: RRR without murmur, gallop, or rubs. No ectopy. Extremities: No deformities, edema, skin discoloration, clubbing or cyanosis. Good capillary refill. . Peripheral Pulses: Normal. Health Maintenance List COVID-19 VACCINE(4 - Booster for Pfizer series) due on 02/02/2021 ADVANCE DIRECTIVE DISCUSSION due on 02/14/2022 DTAP,TDAP,TD(2 - Td or Tdap) due on 03/29/2022 SHINGRIX VACCINE(1 of 2) due on 03/29/2022 INFLUENZA(1) due on 10/16/2021 ANNUAL PCP TEAM CHRONIC DISEASE VISIT due on 09/18/2022 LDL CHOLESTEROL due on 09/23/2022 DIABETES SCREEN due on 09/23/2024 PNEUMOCOCCAL: 65+ Completed DEPRESSION SCREENING Discontinued Data reviewed Component Latest Ref Rng & Units 09/23/2021 Glucose 74 - 99 mg/dL 99 BUN 9 - 24 mg/dL 19 Creatinine 0.73 - 1.22 mg/dL 1.08 Sodium 136 - 144 mmol/L 139 Potassium 3.7 - 5.1 mmol/L 4.2 Chloride 97 - 105 mmol/L 103 CO2 22 - 30 mmol/L 26 Anion Gap 9 - 18 mmol/L 10 Calcium 8.5 - 10.2 mg/dL 9.4 eGFR >=60 mL/min/1.73m 69 Total Cholesterol, Nonfasting <200 mg/dL 171 Triglycerides, Nonfasting <150 mg/dL 116 HDL Cholesterol, Nonfasting >39 mg/dL 45 LDL Cholesterol, Nonfasting <100 mg/dL 103 (H) Non HDL Cholesterol, Nonfasting <130 mg/dL 126 VLDL Cholesterol, Nonfasting <30 mg/dL 23 Total Chol/HDL Ratio, Nonfasting <5.10 mg/dL 3.80 LDL/HDL Ratio, Nonfasting <2.54 mg/dL 2.29 Hemoglobin A1C 4.3 - 5.6 % 5.0 Estimated Average Glucose mg/dL 97 ASSESSMENT/PLAN: 1. Abdominal aortic aneurysm (AAA) without rupture (HCC) - ICD9: 441.4, ICD10: I71.4 (primary diagnosis) Will set up with vascular again - CONSULT TO VASCULAR MEDICINE - LIPID PANEL, NONFASTING - COMP METABOLIC PANEL - CONSULT TO VASCULAR SURGERY 2. 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 - ICD9: 414.3, ICD10: I25.10, I25.83 Patient to return to cardio - LIPID PANEL, NONFASTING 3. Subclavian artery stenosis, right (HCC) - ICD9: 447.1, ICD10: I77.1 As abvoe - CONSULT TO VASCULAR MEDICINE - CONSULT TO VASCULAR SURGERY 4. GERD without esophagitis - ICD9: 530.81, ICD10: K21.9 Cont with gastro 5. Renal insufficiency - ICD9: 593.9, ICD10: N28.9 stable 6. Elevated fasting blood sugar - ICD9: 790.21, ICD10: R73.01 - URINALYSIS, WITH MICROSCOPIC - HGB A1C 7. Bilateral carotid artery stenosis - ICD9: 433.10, 433.30, ICD10: I65.23 - CONSULT TO VASCULAR MEDICINE - CONSULT TO VASCULAR SURGERY 8. Thrombocytopenia (HCC) - ICD9: 287.5, ICD10: D69.6 s - CBC + DIFF 9. Disorder of prostate - ICD9: 602.9, ICD10: N42.9 - PSA/PROSTSPECAG DIAG 10. 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 Mixed hyperlipidemia - ICD9: 272.2, ICD10: E78.2 - suboptimal control - Continue current medication. - Encouraged following a low fat, low cholesterol diet. - Continue current therapy. - LIPID PANEL, NONFASTING 12. Medication management - ICD9: V58.69, ICD10: Z79.899 - MAGNESIUM BLD Tanisha Garcia PA-C documented in this encounter [facility] 09-18-2021 Miscellaneous Notes Agree Protocol recommends see pcp in 24 hours. Same day appt scheduled. Reason for Disposition [1] Continuous (nonstop) coughing interferes with work or school AND [2] no improvement using cough treatment per protocol Answer Assessment - Initial Assessment Questions 1. ONSET: 09-08-21. Covid positive on 09-08-21. Took paxlovid after VV 09-09. Completed on 09-13-21. Productive cough has not gone away- constant-keeps him awake. Covid test negative yesterday, and negative after taking paxlovid. 2. SEVERITY Constant. Causes sore throat. 3. SPUTUM: Clear mostly, sometimes yellow. 4. HEMOPTYSIS: No blood 5. DIFFICULTY BREATHING: No SOB. No wheeze. 6. FEVER: No 7. CARDIAC HISTORY: Aortic aneurysm with stent successful- 7 years ago. Taking crestor. 8. LUNG HISTORY: No asthma. Never had blood clot. 9. PE RISK FACTORS No blood clots. 1 week at [facility] end of August. 10. OTHER SYMPTOMS: Runny nose sometimes, sinus drainage, sore throat. 11. : N/A 12. TRAVEL: Spent a week at [facility] end of August. Protocols used: COUGH - [id number] documented in this encounter [facility] 09-09-2021 Juana Martínez APRN.FACILITY MAINTENANCE TECHNICIAN - 09/09/2021 11:28 AM EDT FACT SHEET FOR PATIENTS, PARENTS, AND CAREGIVERS EMERGENCY USE AUTHORIZATION (EUA) OF PAXLOVID FOR CORONAVIRUS DISEASE 2019 (COVID-19) You are being given this Fact Sheet because your healthcare provider believes it is necessary to provide you with PAXLOVID for the treatment of zbuu-gv-xxexenlc coronavirus disease (COVID-19) caused by the SARS-CoV-2 virus. This Fact Sheet contains information to help you understand the risks and benefits of taking the PAXLOVID you have received or may receive. The U.S. Food and Drug Administration (FDA) has issued an Emergency Use Authorization (EUA) to make PAXLOVID available during the COVID-19 pandemic (for more details about an EUA please see What is an Emergency Use Authorization? at the end of this document). PAXLOVID is not an FDA-approved medicine in the [place]. Read this Fact Sheet for information about PAXLOVID. Talk to your healthcare provider about your options or if you have any questions. It is your choice to take PAXLOVID. What is COVID-19? COVID-19 is caused by a virus called a coronavirus. You can get COVID-19 through close contact with another person who has the virus. COVID-19 illnesses have ranged from very czgi-bu-pppehf, including illness resulting in . While information so far suggests that most COVID-19 illness is mild, serious illness can happen and may cause some of your other medical conditions to become worse. Older people and people of all ages with severe, long lasting (chronic) medical conditions like heart disease, lung disease, and diabetes, for example seem to be at higher risk of being hospitalized for COVID-19. What is PAXLOVID? PAXLOVID is an investigational medicine used to treat truw-rl-sdetkbje COVID-19 in adults and children [12 years of age and older weighing at least 88 pounds (40 kg)] with positive results of direct SARS-CoV-2 viral testing, and who are at high risk for progression to severe COVID-19, including hospitalization or . PAXLOVID is investigational because it is still being studied. There is limited information about the safety and effectiveness of using PAXLOVID to treat people with esao-nt-rcgwqcbu COVID-19. The FDA has authorized the emergency use of PAXLOVID for the treatment of badr-sj-jfsldmwn COVID-19 in adults and children [12 years of age and older weighing at least 88 pounds (40 kg)] with a positive test for the virus that causes COVID-19, and who are at high risk for progression to severe COVID-19, including hospitalization or , under an EUA. 1 Revised: 02 May 2021 What should I tell my healthcare provider before I take PAXLOVID? Tell your healthcare provider if you: Have any allergies Have liver or kidney disease Are or plan to become Are a child Have any serious illnesses Tell your healthcare provider about all the medicines you take, including prescription and chpf-vdr-znbkkfl medicines, vitamins, and herbal supplements. Some medicines may interact with PAXLOVID and may cause serious side effects. Keep a list of your medicines to show your healthcare provider and pharmacist when you get a new medicine. You can ask your healthcare provider or pharmacist for a list of medicines that interact with PAXLOVID. Do not start taking a new medicine without telling your healthcare provider. Your healthcare provider can tell you if it is safe to take PAXLOVID with other medicines. Tell your healthcare provider if you are taking combined hormonal contraceptive. PAXLOVID may affect how your control pills work. Females who are able to become should use another effective alternative form of contraception or an additional barrier method of contraception. Talk to your healthcare provider if you have any questions about contraceptive methods that might be right for you. How do I take PAXLOVID? PAXLOVID consists of 2 medicines: nirmatrelvir and ritonavir. Take 2 pink tablets of nirmatrelvir with 1 white tablet of ritonavir by mouth 2 times each day (in the morning and in the evening) for 5 days. For each dose, take all 3 tablets at the same time. If you have kidney disease, talk to your healthcare provider. You may need a different dose. Swallow the tablets whole. Do not chew, break, or crush the tablets. Take PAXLOVID with or without food. Do not stop taking PAXLOVID without talking to your healthcare provider, even if you feel better. If you miss a dose of PAXLOVID within 8 hours of the time it is usually taken, take it as soon as you remember. If you miss a dose by more than 8 hours, skip the missed dose and take the next dose at your regular time. Do not take 2 doses of PAXLOVID at the same time. If you take too much PAXLOVID, call your healthcare provider or go to the nearest hospital emergency room right away. If you are taking a ritonavir-or cobicistat-containing medicine to treat hepatitis C or Human Immunodeficiency Virus (HIV), you should continue to take your medicine as prescribed by your healthcare provider. Talk to your healthcare provider if you do not feel better or if you feel worse after 5 days. Who should generally not take PAXLOVID? Do not take PAXLOVID if: You are allergic to nirmatrelvir, ritonavir, or any of the ingredients in PAXLOVID You are taking any of the following medicines: Alfuzosin Pethidine, propoxyphene Ranolazine Amiodarone, dronedarone, flecainide, propafenone, quinidine Colchicine Lurasidone, pimozide, clozapine Dihydroergotamine, ergotamine, methylergonovine Lovastatin, simvastatin Sildenafil (Revatio ) for pulmonary arterial hypertension (PAH) Triazolam, oral midazolam Apalutamide Carbamazepine, phenobarbital, phenytoin Rifampin Rema s Wort (hypericum perforatum) Taking PAXLOVID with these medicines may cause serious or life-threatening side effects or affect how PAXLOVID works. These are not the only medicines that may cause serious side effects if taken with PAXLOVID. PAXLOVID may increase or decrease the levels of multiple other medicines. It is very important to tell your healthcare provider about all of the medicines you are taking because additional laboratory tests or changes in the dose of your other medicines may be necessary while you are taking PAXLOVID. Your healthcare provider may also tell you about specific symptoms to watch out for that may indicate that you need to stop or decrease the dose of some of your other medicines. What are the important possible side effects of PAXLOVID? Possible side effects of PAXLOVID are: Allergic Reactions. Allergic reactions can happen in people taking PAXLOVID, even after only 1 dose. Stop taking PAXLOVID and call your healthcare provider right away if you get any of the following symptoms of an allergic reaction: hives trouble swallowing or breathing swelling of the mouth, lips, or face throat tightness hoarseness skin rash Liver Problems. Tell your healthcare provider right away if you have any of these signs and symptoms of liver problems: loss of appetite, yellowing of your skin and the whites of eyes (jaundice), dark-colored urine, pale colored stools and itchy skin, stomach area (abdominal) pain. Resistance to HIV Medicines. If you have untreated HIV infection, PAXLOVID may lead to some HIV medicines not working as well in the future. Other possible side effects include: altered sense of taste diarrhea high blood pressure muscle aches These are not all the possible side effects of PAXLOVID. Not many people have taken PAXLOVID. Serious and unexpected side effects may happen. PAXLOVID is still being studied, so it is possible that all of the risks are not known at this time. What other treatment choices are there? Veklury (remdesivir) is FDA-approved for the treatment of fyts-bl-kczqjxma COVID-19 in certain adults and children. Talk with your doctor to see if Veklury is appropriate for you. Like PAXLOVID, FDA may also allow for the emergency use of other medicines to treat people with COVID-19. Go to https://www.fda.gov/emergency-pre paredness-andresponse/mcm-legal-r flhotjgsw-dsj-wmgwhu-framework/em apwxowl-lae-rnzbifstjylbj for information on the emergency use of other medicines that are authorized by FDA to treat people with COVID-19. Your healthcare provider may talk with you about clinical trials for which you may be eligible. It is your choice to be treated or not to be treated with PAXLOVID. Should you decide not to receive it or for your child not to receive it, it will not change your standard medical care. What if I am or ? There is classroom technology coach treating women or mothers with PAXLOVID. For a mother and unborn baby, the benefit of taking PAXLOVID may be greater than the risk from the treatment. If you are , discuss your options and specific situation with your healthcare provider. It is recommended that you use effective barrier contraception or do not have sexual activity while taking PAXLOVID. If you are , discuss your options and specific situation with your healthcare provider. How do I report side effects with PAXLOVID? Contact your healthcare provider if you have any side effects that bother you or do not go away. Report side effects to FDA MedWatch at www.fda.gov/medwatch or call 9-178-BCP0483 or you can report side effects to [employer]. at the contact information provided below. Website Fax number Telephone number [email or web address] How should I store PAXLOVID? Store PAXLOVID tablets at room temperature, between 68?F to 77?F (20?C to 25?C). How can I learn more about COVID-19? Ask your healthcare provider. Visit https://www.cdc.gov/COVID19. Contact your local or state public health department. What is an Emergency Use Authorization (EUA)? The [place] FDA has made PAXLOVID available under an emergency access mechanism called an Emergency Use Authorization (EUA). The EUA is supported by a Block Mechanic of Health and Human Service (HHS) declaration that circumstances exist to justify the emergency use of drugs and biological products during the COVID-19 pandemic. PAXLOVID for the treatment of rweu-xb-qdjnfiip COVID-19 in adults and children [12 years of age and older weighing at least 88 pounds (40 kg)] with positive results of direct SARS-CoV-2 viral testing, and who are at high risk for progression to severe COVID-19, including hospitalization or , has not undergone the same type of review as an FDA-approved product. In issuing an EUA under the COVID-19 public health emergency, the FDA has determined, among other things, that based on the total amount of scientific evidence available including data from adequate and well-controlled clinical trials, if available, it is reasonable to believe that the product may be effective for diagnosing, treating, or preventing COVID-19, or a serious or life-threatening disease or condition caused by COVID-19; that the known and potential benefits of the product, when used to diagnose, treat, or prevent such disease or condition, outweigh the known and potential risks of such product; and that there are no adequate, approved, and available alternatives. All of these criteria must be met to allow for the product to be used in the treatment of patients during the COVID-19 pandemic. The EUA for PAXLOVID is in effect for the duration of the COVID-19 declaration justifying emergency use of this product, unless terminated or revoked (after which the products may no longer be used under the EUA). Additional Information For general questions, visit the website or call the telephone number provided below. Website Telephone number [email or web address] (4-781-I43-CPQS) You can also go to [email or web address] or call for more information. Pfizer Distributed by [employer] [place] [address] [id number] Revised: 02 May 2021 documented in this encounter [facility] 09-09-2021 History of Present illness Narrative Telemedicine Visit - Distance Health Virtual Visit Note Patient seen on [employer] video visit platform. Location of patient: [place] Jared Robertson MD History of Present Illness Christiano Sorensen is a 80 year old year old male who presents for COVID test result. Tested positive on a home rapid antigen test this morning. He has symptoms that include: nasal congestion, sore throat, fatigue started yesterday. Got worse over the night, started with cough. It is intermittent, non-productive. No fever. He is interested in oral paxlovid. He is elderly, has a history of lymphoma. He is not getting treated. 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 Bright Benign non-nodular prostatic hyperplasia without lower urinary tract symptoms 10/23/2015 Bilateral carotid artery stenosis 10/07/[address] Rojas, : 11/01/14 less than 50% bilaterally, no change 10/2015, no change 06/16/2017: bilaterally 20-40% Cardiac dysrhythmia, unspecified Chronic bronchitis (HCC) 10/09/2005 Chronic low back pain without sciatica 10/07/2015 Chronic pain syndrome 10/23/2015 for lymphoma pain and diverticulsis pain. On Neurontin 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 10/07/2015 Current use of proton pump inhibitor 11/11/2016 DDD (degenerative disc disease), lumbar 10/07/2015 Degeneration of lumbar or lumbosacral intervertebral disc Diaphragmatic hernia without mention of obstruction or gangrene Elevated fasting blood sugar 11/18/2017 Enlargement of lymph nodes Erectile dysfunction 10/07/2015 Family history of dementia 10/07/2015 GERD without esophagitis 10/07/[address] 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 pt to go see Dr. Francisco 05/2018 Palpitations 06/07/2018 Chronic, typically at night laying on his left side. W/U with event monitor in past was normal per cardio. past medical history skin cancer forehead--unsure which kind Primary insomnia 10/07/2015 Psoriasis Rosacea 11/11/2016 Subclavian artery stenosis, right (HCC) 06/17/2017 US 06/16/2017 50-99% Thrombocytopenia (HCC) 10/07/2015 Waldenstrom's macroglobulinemia (HCC) 10/07/2015 PAST SURGICAL HISTORY Procedure Laterality Date 2D ECHO (EXEP) 01/30/14 EF=60%, LVH, no valve abnormalities COLONOSCOPY 09/21/2014 Dr. Bright, polyp, repeat 3 yrs COLONOSCOPY 02/17/2018 repeat 3 yrs, Dr. Bright COLONOSCOPY W/BIOPSY SINGLE/MULTIPLE 11/22/07 ENDOSCOPY UPPER-EGD/M24 LAPS SURG CHOLECYSTECTOMY W/CHOLANGIOGRAPHY 04-12-09 PAST SURGICAL HISTORY OF 11/2014 AAA repair PAST SURGICAL HISTORY OF 2015 both eyes cataract removal. PAST SURGICAL HISTORY OF 10/13/2017 right shoulder surgery per [facility] UMBILICAL HRNA 5 YRS/> REDUCIBLE 2--10 STRESS TEST 02/27/2014 WNL FAMILY HISTORY Problem Relation Age of Onset Multiple Sclerosis Brother living Colon Cancer Father 74 of metastatic brain CA Diabetes Father other (schiophrenia) Sister doing ok since e;ectroshock Alzheimer's Disease Mother Social History Tobacco Use Smoking status: Former Smoker Packs/day: 1.00 Years: 8.00 Pack years: 8.00 Quit date: 02/15/1974 Years since quittin.5 Smokeless tobacco: Never Used Tobacco comment: NO EXPOSURE TO 2ND HAND SMOKE Vaping Use Vaping Use: Never used Substance Use Topics Alcohol use: Yes Comment: occasionally Drug use: No Current Outpatient Medications Medication Sig metroNIDAZOLE 1 % gel Apply 1 application to affected area once daily. Location: face clobetasol (TEMOVATE) 0.05 % ointment Apply to affected area twice daily. colchicine 0.6 mg tablet Take one tab by mouth 3 times a day till pain stops or script finished. albuterol HFA (PROAIR HFA) 90 mcg/actuation inhaler Inhale 2 Puffs as instructed every 6 hours as needed. esomeprazole (NEXIUM) 40 mg capsule Take 1 capsule by mouth twice daily before meals. Per Gastro, Dr. Bright famotidine (PEPCID) 40 mg tablet Take 40 mg by mouth daily at bedtime. Per gastro (Patient not taking: Reported on 10/28/2020 ) lactulose (DUPHALAC, CONSTULOSE) 10 g/15 mL soln Take 30 mL by mouth once daily. Per Cardio Dr. Ortiz albuterol HFA (VENTOLIN HFA) 90 mcg/actuation inhaler Inhale 2 Puffs as instructed every 4 hours as needed for Wheezing/Shortness of Breath. MEDICATION, NON-DATABASE Takes med for digestive problems but pt doesn't remember name (Patient not taking: Reported on 06/13/2020 ) rosuvastatin (CRESTOR) 20 mg tablet Take 20 mg by mouth once daily. aspirin(ASPIR-81 81 MG TAB) One tabs every morning No current facility-administered medications for this visit. ALLERGIES Allergen Reactions Elavil [Amitriptyli* Other: See Comments Tired and depressed feeling Video Exam (Examination performed via Video enabled technology) General appearance: Alert, oriented, pleasant, in NAD :Yes Ill appearing :No Lethargic appearing :No Respiratory distress :No ASSESSMENT/PLAN: 1. COVID - ICD9: 079.89, ICD10: U07.1 - Positive home test. Patient is high risk. Discussed options of watch and waiting, oral antivirals or MAB. Patient chose oral antivirals. GFR has been close to or greater than 60 for the most part. - NIRMATRELVIR 300 MG (150 MG X2)-RITONAVIR 100 MG TABLET,DOSE PACK(EUA) PLAN: - Red flags discussed for need for in person care - All questions answered Tunde Martínez APRN.CNP If you let us know who your primary care provider is, we will send them a notification of today's visit through our electronic medical records system. Since not all providers have access to our notifications, we strongly encourage you to share the following record of today's visit with your primary care provider at your next visit. This will help in providing you the best care. If you do not have an established Primary Care physician and would like to continue care with a [facility] Virtual Primary Care physician, please ask your provider to place a Establish Primary Care order. Use AWID to manage your care, wherever you are, 07/09, on your mobile device or computer. AWID connects you to [employer] so you can access all your health information in one place and also schedule and request virtual appointments with primary care providers. Nirmatrelvir/Ritonavir (Paxlovid) Eligibility and Patient Discussion [facility] Formulary Restriction Criteria: Adult outpatients 18 years and older with ALL of the following: [x] Patient has positive SARS-COV-2 viral test (PCR or antigen test) during current illness [x] Patient has symptoms for 5 days or less [x] Not requiring hospitalization at any time for management of COVID-19 [x] Not requiring supplemental oxygen or a change in baseline supplemental oxygen[x] Not utilized for pre-exposure or post-exposure prophylaxis for prevention of COVID-19 [x] Patient does not have severe renal impairment (eGFR < 30 mL/min) or severe hepatic impairment (Child-Baron Class C) [x] Meeting at least one of the criteria for high risk of progression to severe COVID-19: [x] Age over 65 years [x] Cancer [] Chronic kidney disease [] Chronic liver disease [] Chronic lung diseases, including cystic fibrosis [] Dementia or other neurological conditions [] Diabetes (type 1 or type 2) [] Disabilities, including Down syndrome and neurodevelopmental disorders [] Heart conditions [] HIV infection [] Immunocompromised state [] Mental health conditions [] Medical related technological dependence (tracheostomy, gastrostomy, or positive pressure ventilation (not related to COVID) [] Overweight and obesity (BMI greater or equal to 25 for adults) [] Physical inactivity [] [] Sickle cell disease or thalassemia [] Smoking, current or former [] Solid organ or blood stem cell transplant [] Stroke or cerebrovascular disease [] Substance use disorders [] Tuberculosis [] People from racial and ethnic minority groups Criteria above are met: Yes Date of Positive Test: 09/09/2021 Date of Symptom Onset: 09/08/2021 Patient received COVID vaccine: Yes Drug-Drug interactions reviewed: Yes. Drug interactions were identified and the following actions were taken Crestor will be stopped for the next 5 days. I have discussed the use of the investigational therapeutic, nirmatrelvir/ritonavir, for the treatment of mild to moderate COVID-19 and its use under Emergency Use Authorization with the patient. The patient was informed that nirmatrelvir/ritonavir is not an FDA approved drug and that it is authorized for use under this Emergency Use Authorization. The patient was also informed of the significant known benefits and potential risks of nirmatrelvir/ritonavir, and the extent to which such potential risks and benefits are unknown. The patient was informed that there is mandatory reporting of all medication errors and serious adverse events potentially related to nirmatrelvir/ritonavir treatment within 7 calendar days from the onset of the event and that events up to 28 days after completion of therapy need to be reported. The discussion included alternatives to receiving nirmatrelvir/ritonavir, including clinical trials, and potential the risks and benefits of those alternatives. The patient was provided electronically with the Fact Sheet for Patients, Parents and Caregivers . The patient was also instructed that in addition to the treatment with nirmatrelvir/ritonavir, he/she should continue to self-isolate and use infection control measures (e.g., wear mask, isolate, social distance, avoid sharing personal items, clean and disinfect high touch surfaces, and frequent handwashing) according to CDC guidelines. The patient stated understanding and gave verbal consent to proceeding with nirmatrelvir/ritonavir treatment. Tunde Martínez APRN.CNP September 09, 2021 11:29 AM documented in this encounter [facility] 08-26-2021 Miscellaneous Notes Pt is seeing Dr. Mathew at [facility]. Thank you, Mayra Prado Please call pt to schedule Gastro consult. Billie Torres Ma Called and left a voicemail for the Patient to call back and ask for a nurse to receive the providers message. Tegan Lim RN Consult placed. Patient has family HX of colon cancer, father from colon cancer. Patient is due for a colonoscopy advised to have one every 3 years d/t fam. HX & last procedure polyps were removed. (Results from last colonoscopy scanned into Epic 02/25/[address] Bright) Denies any new GI SX-just ongoing diarrhea. Patient would like to get established with gastro locally. Shannan Stallings MA We need more triage info. I have no idea why patient has made an appt with Dr. Mathew to be able to know what to order as reason for the consult. Requesting referral & pt info to be sent to Dr Mathew. Pt scheduled already for 10/29/21 but is on a wait list. Please fax to [phone]. Ailyn Roque LPN documented in this encounter [facility] 08-22-2021 History of Present illness Narrative Episode Visit Count: 11 Therapist That Will Oversee The Plan Of Care: Raymundo Hsu Start of Care Date: 04/01/21 Onset Date: 04/01/20 Plan of Care Certification Date: 08/22/21 Next Certification Due Date: 09/26/21 Patient Identified by Name and Date of : Yes REHABILITATION AND SPORTS THERAPY PHYSICAL THERAPY PROGRESS REPORT PLAN OF CARE UPDATE: Assessment: Christiano Sorensen demonstrates difficulty with active lumbar ROM and difficulty sleeping and improvements in level of independence with the HEP and better understanding of impairments and some improvement in LE functional strength. He hasprogressed toward goals. Patient continues to present with impairments in ADL's, independence in exercise, joint mobility, strength and tissue tenderness that interfere with bending;bed mobility . Current prognosis is Excellent due to: current objective clinical presentation;positive past response to therapy . Pt will benefit from continue core strengthening and mobility of the lumbar facets. He will benefit from continued skilled therapy services to meet the updated goals for this plan of care as noted below. Overall pt progress has been slowed due to recent flare-up of LBP from swinging a golf club. However, Pt is returning to baseline symptoms and improving. Goals updated 08/22/2021 Goals for Episode of Care: created on 04/01/21 through 05/27/21 Independent in home exercises. - Met so far Pt will improve lumbar ROM to minimal limitation or better in 8 weeks or less to decrease lower back pain - Not met, will continue Patient will report no falls. - Met so far Improve score on 30 Second Chair Stand to 10 repetitions to reflect decreased fall risk. - MET Improve performance on 4 Stage Balance Test to 15 seconds to partial tandem stance to reflect decreased fall risk. - MET Pt will report no longer having radicular symptoms/numbness for 1 full week to improve QOL - Progressing, will continue Pt will be able to perform tandem walking with 1 LOB for 15 feet Not measures this visit due to back pain Patient Goals: Pt wants to improve balance Planned Interventions, Frequency, and Duration: 1x/week, 4 weeks Total Number of Visits Planned: 4 Patient to be seen for Therapeutic exercise (07212);Manual therapy (30584);Self-intermediate management (41387);Patient/Family/Caregiver Education;Neuromuscular re-education (92012) PLAN FOR NEXT VISIT: Progress core strengthening Classification Low Back Pain Subgroup Classification: Spinal mobilization subgroup: recommended visits 6. Spinal Mobilization Subgroup Classification based on: ROM loss;facet like pain;endrange pain;paraspinal pain SUBJECTIVE: Patient Reason for Visit: Pt states he is feeling ok. Has an TENS unit which is helpful. Pt is hoping to continue on with the PT to assist his back. Functional Limitations: bending;bed mobility Pain: Pain Pain Location: Low Back/Lumbar Spine - Left;Low Back/Lumbar Spine - Right PROMIS Scales Higher is Better 11/11/2016 02/28/2020 02/28/2020 GH Physical - Score - - 42.3 GH Physical - Percentile 15 % 22 % 22 % GH Mental - Score - - 45.8 GH Mental - Percentile 13 % 34 % 34 % T-scores: mean of general population = 50. 5 points is clinically meaningfully difference Percentiles provide an indication of how the patient's score ranks in relation to the general population. Higher percentile rankings indicate better function/quality of life. 50th percentile is the average of the general population and indicates half of respondents had a worse score. T-scores: mean of general population = 50. 5 points is clinically meaningfully difference Percentiles provide an indication of how the patient's score ranks in relation to the general population. Higher percentile rankings indicate better function/quality of life. 50th percentile is the average of the general population and indicates half of respondents had a worse score. OBJECTIVE MEASURES WITH LEVEL OF FUNCTION: Lumbar Spine AROM Lumbar Flexion: Moderate limitation;Increased pain Lumbar Extension: Moderate limitation;Increased pain Lumbar R Side-Bend: Moderate limitation;Increased pain Lumbar L Side-Bend: Moderate limitation Lumbar R Rotation: Moderate limitation Lumbar L Rotation: Moderate limitataion LE AROM Tested?: Yes LE AROM R LE AROM: WFL L LE AROM: WFL LE Strength R LE Strength: Grossly 5/5 L LE Strength: Grossly 5/5 Gait Gait Distance (feet): 50 Gait Device: None Gait Deviations: General Deviations General Deviations/Observations: Flexed trunk posture TREATMENT: Therapeutic Exercise: 1: All objective measures atken this session 2: Seated TA with press 4# 2 x 10 3: PPT on wall x 30 4: Standing horizontal abd GTB x 15 (6/10 pain) 5: Seated horizontal abd GTB x 15 (No pain with this) Skilled Intervention: Patient was educated in proper exercise technique and purpose for exercises. Correct performance of therapeutic exercises was facilitated with verbal and visual cuing. Billing Therapeutic Exercise Treatment Minutes: 30 Total Treatment Time Minutes (timed/untimed): 30 Raymundo Hsu PT documented in this encounter [facility] 08-15-2021 History of Present illness Narrative Episode Visit Count: 10 Therapist That Will Oversee The Plan Of Care: Raymundo Hsu Start of Care Date: 04/01/21 Onset Date: 04/01/20 Plan of Care Certification Date: 07/17/21 Next Certification Due Date: 08/28/21 Patient Identified by Name and Date of : Yes REHABILITATION AND SPORTS THERAPY PHYSICAL THERAPY TREATMENT NOTE ASSESSMENT: Chirstiano Sorensen tolerated the session with fair tolerance as there is still a bit of pain with transitioning to different positions. He demonstrated improvements in ability to perform PPT in standing. The patient will continue to benefit from ongoing skilled physical therapy to progress toward set goals. PLAN FOR NEXT VISIT: POC update SUBJECTIVE: Patient Reason for Visit: Pt is still in quite a bit of pain. Did see Bimal STEPHENS recently and revieved some stretches which have been helpful. Pt looking to find a comfortable sleeping position and continue with exercises. Pain: Pain Pain Level: (Not rated) Pain Location: Low Back/Lumbar Spine - Left;Low Back/Lumbar Spine - Right OBJECTIVE MEASURES WITH LEVEL OF FUNCTION: Some quick stabbing pain observed with transfers TREATMENT: Therapeutic Exercise: 1: Basking Seal 5 x 30 sec various degrees of hip flexion 2: Standing PPT at wall 2 x 10 (Pt has difficulty at first performing this but with verbal cues pt is successful in performing this therapeutic exercise) Skilled Intervention: Patient was educated in proper exercise technique and purpose for exercises. Correct performance of therapeutic exercises was facilitated with verbal and visual cuing. Self-Group Home Management: 1: Spent ample time discussing sleeping psoitions with use of pillows that open the R lumbar facets in supine, prone, and side-lying positions to allow better quality sleep. Discussed trying to sleep in a recliner for now until the pain further subsides. Skilled Intervention: Skilled judgment in the selection of proper modification for activity of daily living/home management based on clinical presentation, deficits, and needs. Billing Therapeutic Exercise Treatment Minutes: 10 Self-Care/Home Management Treatment Minutes: 15 Total Treatment Time Minutes (timed/untimed): 25 Raymundo Hsu PT documented in this encounter [facility] 08-14-2021 Miscellaneous Notes Faxing information to Dr. Naranjo, patient aware to call and schedule Lillian Reardon Ma Already sees Dr. Naranjo. Telephone on 08/13/21 CONSULT TO PAIN MGT ThanksBimal PA-C Patient calls to let provider know that his back pain isn't getting any better since visit on 08/11. Patient is requesting a referral to pain management (Dr. Peñaloza). Order pended. Diagnosis needed. Raysa Dai RN documented in this encounter [facility] 08-11-2021 Instructions Davon Archer PA-C - 08/11/2021 3:10 PM EDT Try to avoid activities which increase pain. Position for comfort with pillows under or between legs to decrease stress on low back and hip when in bed. Sleeping conditions are very important to back health. You need to sleep on a surface that supports your hips in a neutral position. Sagging in the hip or shoulder areas will contribute to muscle irritation. Using a low footstool when sitting upright may also reduce low back pain. Try to arrange seating to allow support in the area where your back curves, especially while watching TV or playing video games. Sitting or standing with a hunched posture will cause or aggravate muscle pain in the neck and low back. Ice or moist heat or both may help with pain and stiffness. Apply for 10-15min as needed. See attached exercises. documented in this encounter [facility] 08-11-2021 History of Present illness Narrative 80 year old male with hx stable Waldenstrom's macroglobulinemia since age 18, DDD, chronic back pain, AAA repair c/o right flank/ lumbar pain Chronic back issues, in PT with Raymundo Hsu. Has been to chiropractors in the past. Rates pain 6-9/10 10 days ago aggravated probably from lifting boxes he thinks. Has some issues with balance and may have wrenched the back. Got significantly worse. Couldn't take a step or move without sharp pain. Called ambulance: picked him up off the floor. Evaluated Was released with prednisone and [place]. Can take a step without sharp pain. Went to [facility] Dr. Vazquez: told him not a candidate for surgery. Was sent Dr. Israel Naranjo whom he continues to see. 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 Bright Benign non-nodular prostatic hyperplasia without lower urinary tract symptoms 10/23/2015 Bilateral carotid artery stenosis 10/07/[address] Rojas, : 11/01/14 less than 50% bilaterally, no change 10/2015, no change 06/16/2017: bilaterally 20-40% Cardiac dysrhythmia, unspecified Chronic bronchitis (HCC) 10/09/2005 Chronic low back pain without sciatica 10/07/2015 Chronic pain syndrome 10/23/2015 for lymphoma pain and diverticulsis pain. On Neurontin 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 10/07/2015 Current use of proton pump inhibitor 11/11/2016 DDD (degenerative disc disease), lumbar 10/07/2015 Degeneration of lumbar or lumbosacral intervertebral disc Diaphragmatic hernia without mention of obstruction or gangrene Elevated fasting blood sugar 11/18/2017 Enlargement of lymph nodes Erectile dysfunction 10/07/2015 Family history of dementia 10/07/2015 GERD without esophagitis 10/07/[address] 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 pt to go see Dr. Francisco 05/2018 Palpitations 06/07/2018 Chronic, typically at night laying on his left side. W/U with event monitor in past was normal per cardio. past medical history skin cancer forehead--unsure which kind Primary insomnia 10/07/2015 Psoriasis Rosacea 11/11/2016 Subclavian artery stenosis, right (HCC) 06/17/2017 US 06/16/2017 50-99% Thrombocytopenia (HCC) 10/07/2015 Waldenstrom's macroglobulinemia (HCC) 10/07/2015 PAST SURGICAL HISTORY Procedure Laterality Date 2D ECHO (EXEP) 01/30/14 EF=60%, LVH, no valve abnormalities COLONOSCOPY 09/21/2014 Dr. Bright, polyp, repeat 3 yrs COLONOSCOPY 02/17/2018 repeat 3 yrs, Dr. Bright COLONOSCOPY W/BIOPSY SINGLE/MULTIPLE 11/22/07 ENDOSCOPY UPPER-EGD/M24 LAPS SURG CHOLECYSTECTOMY W/CHOLANGIOGRAPHY 04-12-09 PAST SURGICAL HISTORY OF 11/2014 AAA repair PAST SURGICAL HISTORY OF 2015 both eyes cataract removal. PAST SURGICAL HISTORY OF 10/13/2017 right shoulder surgery per [facility] UMBILICAL HRNA 5 YRS/> REDUCIBLE 04-12-09 STRESS TEST 02/27/2014 WNL Social History Tobacco Use Smoking status: Former Smoker Packs/day: 1.00 Years: 8.00 Pack years: 8.00 Quit date: 02/15/1974 Years since quittin.5 Smokeless tobacco: Never Used Tobacco comment: NO EXPOSURE TO 2ND HAND SMOKE Vaping Use Vaping Use: Never used Substance Use Topics Alcohol use: Yes Comment: occasionally Drug use: No ACTIVE PROBLEM LIST Chronic Bronchitis (Hcc) Aaa (Abdominal Aortic Aneurysm) (Hcc) Malignant lymphoplasmacytic lymphoma (HCC) Bilateral Carotid Artery Stenosis Chronic Low Back Pain Without Sciatica Allergic Rhinitis Due to Pollen Erectile Dysfunction Ibs (Irritable Bowel Syndrome) Waldenstrom's Macroglobulinemia (Hcc) Family History of Dementia Primary Insomnia Ddd (Degenerative Disc Disease), Lumbar Psoriasis History of Colon Polyps Mixed Hyperlipidemia Coronary Atherosclerosis Due to Lipid Rich Plaque Gerd Without Esophagitis Anemia Thrombocytopenia (Hcc) Gilbert's Syndrome Adrenal Adenoma Chronic Pain Syndrome Disorder of prostate Benign Non-Nodular Prostatic Hyperplasia Without Lower Urinary Tract Symptoms Rosacea Subclavian Artery Stenosis, Right (Hcc) Elevated Fasting Blood Sugar Palpitations Medicare Annual Wellness Visit, Subsequent Funez's Esophagus Without Dysplasia Hiatal Hernia Renal Insufficiency Medication Management Non-Intractable Vomiting Belching Balance Problem Current Outpatient Medications Medication Sig Dispense Refill esomeprazole (NEXIUM) 40 mg capsule Take 1 capsule by mouth twice daily before meals. Per Gastro, Dr. Bright 60 capsule 5 albuterol HFA (VENTOLIN HFA) 90 mcg/actuation inhaler Inhale 2 Puffs as instructed every 4 hours as needed for Wheezing/Shortness of Breath. 1 Inhaler 0 rosuvastatin (CRESTOR) 20 mg tablet Take 20 mg by mouth once daily. aspirin(ASPIR-81 81 MG TAB) One tabs every morning 0 metroNIDAZOLE 1 % gel Apply 1 application to affected area once daily. Location: face 60 g 1 clobetasol (TEMOVATE) 0.05 % ointment Apply to affected area twice daily. 45 g 0 colchicine 0.6 mg tablet Take one tab by mouth 3 times a day till pain stops or script finished. 10 tablet 1 albuterol HFA (PROAIR HFA) 90 mcg/actuation inhaler Inhale 2 Puffs as instructed every 6 hours as needed. 1 Each 0 famotidine (PEPCID) 40 mg tablet Take 40 mg by mouth daily at bedtime. Per gastro (Patient not taking: Reported on 10/28/2020 ) lactulose (DUPHALAC, CONSTULOSE) 10 g/15 mL soln Take 30 mL by mouth once daily. Per Cardio Dr. Ortiz MEDICATION, NON-DATABASE Takes med for digestive problems but pt doesn't remember name (Patient not taking: Reported on 06/13/2020 ) No current facility-administered medications for this visit. COVID-19 VACCINE(4 - Booster for Pfizer series) due on 02/09/2021 EXAM: BP 126/68 Pulse 65 Resp 16 Wt 82.6 kg (182 lb) SpO2 98% BMI 24.79 kg/m Pleasant very healthy appearing elderly man in no acute distress. Alert and oriented all spheres. Normal affect and cognition. Speech normal. No deficits to learning or comprehension. Skin warm, dry, pink to lips and nailbeds. Normal turgor. Respirations regular and unlabored. HEENT: NCAT. No scleral icterus or conjunctival injection. TM's clear. Nose and oropharynx free from injection or lesion. Oral membranes moist and pink. No cervical lymph nodes. Thyroid non-tender, no masses, or enlargement. Carotids pulses 2+/4+ without bruits. No JVD with HOB at 30 degrees. Chest is normal shape. Lungs are clear to all [place] with good air exchange through out. HRRR without murmur or gallop. No lifts, heaves, or rubs. Back midline is non-tender.Mild kyphosis Tender over muscles right flank, paralumbar.and psoas Extrem: no clubbing or cyanosis. Edema: 0- 1/4+ distal . Extremities are warm and pink with prompt capillary refill. Able to flex forward to mid calf: normal innominate function. No sag sign. SLR bilaterally to 75-80 with hamstring tightness. Mild pain and restriction bilateral hips with internal rotation. DTR's 0-1 knee jerk and Achilles bilaterally. OMT with permission: Myofascial release to tender trigger points in the right flank and paralumbar muscles, piriformis stretching and crossed hamstring stretch successful in improving pain. Patient is able to stand up from the table, bend forward with minimal discomfort. ASSESSMENT/PLAN: 1. Lumbar sprain, subsequent encounter - ICD9: V58.89, 847.2, ICD10: S33.5XXD (primary diagnosis) 2. Chronic low back pain without sciatica, unspecified back pain laterality - ICD9: 724.2, 338.29, ICD10: M54.50, G89.29 3. DDD (degenerative disc disease), lumbar - ICD9: 722.52, ICD10: M51.36 Patient is improving with physical therapy. Also tolerated and improved significantly today with OMT: Suspect patient has underlying factors with arthritis that put him at risk as well as his other chronic conditions above. Patient is not really interested in pain medications. Provided handout on piriformis and sacroiliac stretching, the [facility] PDF handout on lumbar rehab. Patient is following physical therapy. We discussed options for treatment and he will let me know if he needs anything further. Declined pain medication. Davon Archer PA-C documented in this encounter [facility] 08-08-2021 History of Present illness Narrative Episode Visit Count: 9 Therapist That Will Oversee The Plan Of Care: Raymundo Hsu Start of Care Date: 04/01/21 Onset Date: 04/01/20 Plan of Care Certification Date: 07/17/21 Next Certification Due Date: 08/28/21 Patient Identified by Name and Date of : Yes REHABILITATION AND SPORTS THERAPY PHYSICAL THERAPY TREATMENT NOTE ASSESSMENT: Christiano Sorensen tolerated the session with decreased symptoms. He demonstrated good tolerance towards manual therapy techniques. The patient will continue to benefit from ongoing skilled physical therapy to progress toward set goals. PLAN FOR NEXT VISIT: Manual techniques for opening the R lumbar facet joints SUBJECTIVE: Patient Reason for Visit: Went to the emergency room on Wednesday. Severe pain in the back and stayed overnight. They said it was SI pain. Pain: Pain Pain Level: (Not rated) Pain Location: Low Back/Lumbar Spine - Left;Low Back/Lumbar Spine - Right Post Treatment Pain Post Treatment Pain Level: Better OBJECTIVE MEASURES WITH LEVEL OF FUNCTION: TREATMENT: Manual Therapy: 1: Discussed baskign seal positioning at home with 30 sec holds 2: Firm pinpoint pressure into large TP in R Lumbar paraspinals near L5 3: STM via bowstringing along lumbar and thoracic paraspinals on the R 4: Manual stretching along R paraspinals holding 10 sec each 5: RLE traction at ankle with IR of hip and 30 deg flexion x 5 min 6: Inferior glide at R iliac crest x 20 Skilled Intervention: Manual skills to improve joint mobility, ROM, and decrease pain. Utilized anatomy knowledge of the therapist, and assessment of patient's response to intervention. Billing Manual TherapyTreatment Minutes: 32 Total Treatment Time Minutes (timed/untimed): 32 Raymundo Hsu PT documented in this encounter [facility] 08-01-2021 Instructions Esdras Retana PA-C - 08/01/2021 10:27 AM EDT Primary Care Team Dr. Suzette Russell CNP- Certified Nurse Practitioner Esdras Retana PA-C Physicians Clinical Product Manager Ligia Barrett RN - Primary Nurse Karlene Tamez RN-Primary Nurse Israel SORTO RN [facility]- Patient Care Steam Tank Operator [phone] Contact Numbers: Clinic Phone & Appointment Changes: [phone] Clinic For Medication Refills: If possible please notify us the beginning of the week for any Narcotic refills you may need if not coming in that week for an appointment. We attempt to fill them as soon as they come in but Dr. Aguilar is only in the clinic on . Please call your pharmacy to verify when to fish bait picker. Allow one week for refills, please do not let your prescription run out. We will call them in to the pharmacy of your request, using the one listed in your chart if not specified differently. You will not be contacted about the refill except for any questions or concerns. Please call your pharmacy to verify when to fish bait picker. All Paperwork: Please allow up to 2 weeks for all disability, FMLA, etc to be filled out. Please specify what your request is as to what and where we should send completed paperwork. (This is to inform us if we should send the completed papers to you or directly to your employer). Ligia, the primary nurse is the one who will normally fill this paperwork out for you, and will only call to inform you the paperwork is completed and sent if requested. [facility] MY Chart: The medical information you will have access to within the My Chart program is only selected portions of your entire chart, such as basic laboratory results, summary medical history, visit history, and selected billing information. It will also allow you to communicate with your health care provider through email. Please understand we do not place all results from labs, tests and procedures. To provide you with the best quality care available we need to be able to discuss these results with you personally. If you are unable to obtain the results of a test that you can't find within the My Chart please feel free to call us and we will get back to you with that information. [employer] messages: When sending a message to the provider, please know that these messages will be received and answered by the primary nurse practitioner. The nurse practitioner will consult your physician when needed. Please call us with any questions or concerns that you may have. Please call if temperature is greater than 100.4 orally. Results for orders placed or performed in visit on 08/01/21 LACTATE DEHYDROGENASE Result Value Ref Range LD Total 130 100 - 190 U/L COMPREHENSIVE METABOLIC PANEL Result Value Ref Range Sodium 137 135 - 145 mmol/L Potassium 4.2 3.5 - 5.0 mmol/L Chloride 106 98 - 108 mmol/L BUN 21 7 - 25 mg/dL Creatinine 1.13 0.70 - 1.30 mg/dL Glucose 87 70 - 99 mg/dL Bilirubin Total 1.0 <1.5 mg/dL Albumin 4.0 3.5 - 5.0 g/dL Total Protein 6.7 6.4 - 8.3 g/dL AST 17 10 - 39 U/L ALP 75 32 - 126 U/L Calcium 8.9 8.6 - 10.5 mg/dL CO2 27 21 - 31 mmol/L ALT 12 10 - 52 U/L Bun/Crea Ratio 19 Osmolality (Calculated) 290 278 - 305 mOsm/kg Anion Gap 8 7 - 17 mmol/L eGFR, CKD-EPI, Male 66 >=60 mL/min/1.73m2 SPE SERUM TOTAL PROTEIN Result Value Ref Range Total Protein 6.4 6.4 - 8.3 g/dL CBC AND ELECTRONIC DIFF Result Value Ref Range WBC Count 5.61 3.73 - 10.10 K/uL RBC Count 4.00 (L) 4.38 - 5.83 M/uL Hemoglobin 13.5 13.4 - 16.8 g/dL Hematocrit 38.7 (L) 39.6 - 48.8 % Mean Cell Volume 96.8 (H) 79.0 - 94.5 fL Mean Cell Hgb 33.8 (H) 26.1 - 33.3 pg Mean Cell Hgb Conc 34.9 31.9 - 36.5 g/dL RBC Distribution 12.6 10.9 - 14.3 % Platelet Count 146 146 - 337 K/uL Mean Platelet Volume 9.9 8.7 - 12.3 fL DIFF STATUS Electronic Differential Segs + Bands Auto 67.9 % Immature Grans % 0.2 % Lymphocyte % Auto 18.9 % Monocyte % Auto 10.0 % Eosinophil % Auto 2.5 % Basophil % Auto 0.5 % Nucleated RBC 0.0 <=0.2 /100 WBC Segs + Bands,Absolute Auto 3.81 1.57 - 6.19 K/uL Immature Grans Absolute <0.04 <=0.08 K/uL Abs Lymph Auto 1.06 0.83 - 3.57 K/uL Abs [place] Auto 0.56 0.24 - 0.93 K/uL Abs Eos Auto 0.14 0.00 - 0.48 K/uL Abs Baso Auto <0.04 0.00 - 0.09 K/uL documented in this encounter [facility] 08-01-2021 History of Present illness Narrative History of Present Illness: Mr. Sorensen presents for 6 month follow up of his WM. Interval History 08/01/2021 - Mr. Tello presents today for follow up and evaluation. He presents with his today. Reports fatigue, occasional muscle/joint aches and occasional balance issues. Feels burning on occasion of lips and thighs. He has had dry eyes and has recently followed up with eye provider. 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 He denies fever, night sweats, weight loss, new lymphadenopathy, SOB, CP, nausea, vomiting, diarrhea, constipation, numbness/tingling, swelling, rash. Disease History: Mr. Sorensen is a 80 y.o. 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 He has been monitored on surveillance and his counts have been stable with no lymphadenopathy. He was seen by Dr. Kaden Calderon, at the [facility] which I believe is associated with [facility], as part of his workup in conjunction with seeing Dr. Calderon. He had a bone marrow biopsy on 03/04/2012 which was remarkable for several circumscribed interstitial lymphoid aggregates composed of small, round lymphocytes that were noted in the clot section. Immuno stains showed that aggregates were composed of CD3-positive T-cells predominantly and with fewer admixed [id number] B cells. These aggregates accounted for less than 5% of the overall cellularity. Immuno stains for CD138 kappa and lambda cytoplasmic immunoglobulin were done and showed that the plasma cells represented less than 5% of overall cellularity and appeared polytypic. Flow cytometry of the marrow showed a low level B cell population (0.6% of total cells) with an otherwise unremarkable phenotype aside from an elevated kappa to lambda ratio (4.4) that was suggestive of monoclonality. Specifically, regarding the 6% of total events that have CD45 and side scatter properties of lymphocytes. The lymphocytes were composed of a mixture of T cells 74% with the CD4:CD8 ratio 1.4, NK cells 6%, and B cells 20%. The B cells displayed an abnormal immunophenotype and expressed CD19, CD20, CD45, CD79b, and FMC7 with monocytic kappa surface light chain immunoglobulin and kappa to lambda ratio 4.4. The B cells were negative for CD5 and CD10 and these B cells represented approximately 0.6% of the total cells as mentioned. His cytogenetics were normal. At the time of his bone marrow biopsy on 03/04/2012, his CBC was rather unremarkable with a white blood cell count of 5.7, hemoglobin 14.4, platelets of 184,000 with 66% neutrophils, 31% lymphocytes, 2% monocytes, and rare plasmacytoid lymphocytes at 1%. He also had a CT chest, abdomen, and pelvis as part of his workup, the report of which I do not have, which the patient reports was remarkable for a small adrenal nodule, a prostate nodule, as well as a thick bladder. He does not report any splenomegaly or adenopathy or any other remarkable findings. These findings did prompt further evaluation with a PSA. His PSA was reported to me as normal and the urologist per report was not concerned about his thickened bladder finding. After this aforementioned workup, it was concluded by Dr. 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 Of note in addition to a normal CBC on 03/04/2012, he had a normal beta 2, LDH, creatinines, calcium, and albumin. Review of Systems: A full ROS was performed and negative other than reported in interval history. 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 Bronchitis past Cancer (HCC) 2012 Chest pain Diverticulosis Diverticulosis Hemorrhoids 2012 Hyperlipidemia IBS (irritable bowel syndrome) Infectious mononucleosis 1960 Lymphoma (HCC) 2012 Measles 0 Pneumonia Whooping cough 1849 Past Surgical History: Procedure Laterality Date COLONOSCOPY 2013 EGD W/ BX N/A 02/03/2013 Laterality: N/A; Surgeon: Jared Cline MD; Location: [facility] ENDOSCOPY COLONOSCOPY FOR COLORECTAL CANCER SCREENING HIGH RISK INDIVIDUAL N/A 02/03/2013 Laterality: N/A; Surgeon: Jared Cline MD; Location: [facility] ENDOSCOPY CHOLECYSTECTOMY LAPAROSCOPIC 2009 Current Outpatient Medications Medication Sig aspirin 81 MG Tab take 81 mg by mouth daily. Cetirizine HCl (ZYRTEC ALLERGY PO) as needed. LACTULOSE PO Take 30 mL by mouth daily. rosuvastatin 20 MG PO TABS take 20 mg by mouth daily. Allergies Allergen Reactions Not Able To Determine Deodorant - rash and itchiness. Can only tolerated hypo-allogenic deodorant Social History Socioeconomic History Marital status: Single Number of children: 2 Occupational History Occupation: 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 His current has been with him for 10+ years but his children are from a previous relationship Family History Problem Relation Age of Onset Other - Specify Father severe allergy to shellfish, colon cancer Diabetes Father Colorectal Cancer Father 72 Neurologic Disease Mother Alzheimers Neurologic Disease Brother MS Cancer- Other Paternal Grandfather testicular cancer BP 136/63 (BP Position: Sitting) Pulse 52 Temp 97.4 F (36.3 C) (Oral) Resp 16 Ht 1.854 m (6' 1 ) Wt 83.9 kg (184 lb 14.4 oz) SpO2 97% BMI 24.39 kg/m Smoking Status Former Smoker Physical Examination: General: Alert and oriented, no acute distress. HEENT: PERRL, EOMI. Conjunctiva non-injected. Heart: Regular rate and rhythm, no murmurs. Lungs: Clear to auscultation with no rhonci or wheezes. Abdomen: Soft, non-tender, non-distended. No splenomegaly. Musculoskeletal: Normal strength and range of motion. Neurologic: CN intact with no focal neurologic deficits. Skin: No rashes or lesions noted. Extremities: Normal with no edema. Lymph: I do not palpate any cervical, supraclavicular, axillary or inguinal adenopathy. Body mass index is 24.39 kg/m . ECOG Performance Status: 0 Lab Results Component Value Date WBC 5.61 08/01/2021 HGB 13.5 08/01/2021 HCT 38.7 (L) 08/01/2021 PLATELET 146 08/01/2021 MCV 96.8 (H) 08/01/2021 Lab Results Component Value Date SODIUM 138 03/13/2021 POTASSIUM 4.2 03/13/2021 CHLORIDE 105 03/13/2021 CO2 28 03/13/2021 BUN 22 03/13/2021 CREATSERUM 1.18 03/13/2021 Lab Results Component Value Date ALT 13 03/13/2021 AST 18 03/13/2021 ALKPHOS 91 03/13/2021 BILITOTAL 0.8 03/13/2021 IgM 829 (previous 734), monoclonal protein pending Assessment/Plan: Mr. Sorensen is a 78 yo patient with a history of WM with a low level IgM diagnosed in 2012 who has never required therapy. He was a prior patient of Dr. Jackson who established care in our clinic in March 2016. 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 Sorensen presents today for 6 month follow up. Overall continued to do well from [place] standpoint. He has no evidence of progressive disease today by history, exam or labs. IgM and monoclonal protein pending. Will follow-up on monoclonal protein but he otherwise has no indication for treatment. We have previously discussed that there are several options for treatment when required. Will RTC in 6 months. 08/01/2021 - Mr. Sorensen presents today for follow up and evaluation. He has reported fatigue, muscle/joint aches and occasional balance issues. On exam no lymphadenopathy nor splenomegaly. Labs reviewed note minimal macrocytic without anemia and WBC and Platelets normal and CMP and LDH normal. SPEP is still pending. Will follow up after remainder labs result. There is no evidence of disease progression by labs, history or exam. Plan for patient to follow up in 6 months. No indications for treatment at this time. He knows to contact us sooner if he has questions, concerns or issues. documented in this encounter [facility] 07-17-2021 History of Present illness Narrative Episode Visit Count: 7 Therapist That Will Oversee The Plan Of Care: Raymundo Hsu Start of Care Date: 04/01/21 Onset Date: 04/01/20 Plan of Care Certification Date: 07/17/21 Next Certification Due Date: 08/28/21 Patient Identified by Name and Date of : Yes REHABILITATION AND SPORTS THERAPY PHYSICAL THERAPY PROGRESS REPORT PLAN OF CARE UPDATE: Assessment: Christiano Sorensen demonstrates difficulty with pain of the R lumbar paraspinals and rising from a chair and improvements in level of independence with the HEP and overall back pain. He hasprogressed toward goals. Patient continues to present with impairments in ADL's, independence in exercise, range of motion and strength that interfere with bending;sitting;standing . Current prognosis is Excellent due to: current objective clinical presentation;positive past response to therapy . Pt demonstrating increased pain with closing of the R lumbar facet joints. He will benefit from continued skilled therapy services to meet the updated goals for this plan of care as noted below. Goals updated 07/17/2021 Goals for Episode of Care: created on 04/01/21 through 05/27/21 Independent in home exercises. - Met so far Pt will improve lumbar ROM to minimal limitation or better in 8 weeks or less to decrease lower back pain - Not met, will continue Patient will report no falls. - Met so far Improve score on 30 Second Chair Stand to 10 repetitions to reflect decreased fall risk. - MET Improve performance on 4 Stage Balance Test to 15 seconds to partial tandem stance to reflect decreased fall risk. - MET Pt will report no longer having radicular symptoms/numbness for 1 full week to improve QOL Not met, will continue Pt will be able to perform tandem walking with 1 LOB for 15 feet Not measures this visit due to back pain Patient Goals: Pt wants to improve balance Planned Interventions, Frequency, and Duration: 1x/week, 4 weeks Total Number of Visits Planned: 4 Patient to be seen for Therapeutic exercise (19323);Manual therapy (44607);Self-intermediate management (88527);Patient/Family/Caregiver Education;Neuromuscular re-education (22661) PLAN FOR NEXT VISIT: Balance training. Opening of R L-spine facets Classification Low Back Pain Subgroup Classification: Spinal mobilization subgroup: recommended visits 6. Spinal Mobilization Subgroup Classification based on: ROM loss;facet like pain;endrange pain;paraspinal pain SUBJECTIVE: Patient Reason for Visit: Pt states he lifted some boxes and this created some back pain. Functional Limitations: bending;sitting;standing Pain: Pain Pain Level: 0 Pain Location: Low Back/Lumbar Spine - Left;Low Back/Lumbar Spine - Right Post Treatment Pain Post Treatment Pain Location: Low Back/Lumbar Spine - Left;Low Back/Lumbar Spine - Right PROMIS Scales Higher is Better 11/11/2016 02/28/2020 02/28/2020 GH Physical - Score - - 42.3 GH Physical - Percentile 15 % 22 % 22 % GH Mental - Score - - 45.8 GH Mental - Percentile 13 % 34 % 34 % T-scores: mean of general population = 50. 5 points is clinically meaningfully difference Percentiles provide an indication of how the patient's score ranks in relation to the general population. Higher percentile rankings indicate better function/quality of life. 50th percentile is the average of the general population and indicates half of respondents had a worse score. T-scores: mean of general population = 50. 5 points is clinically meaningfully difference Percentiles provide an indication of how the patient's score ranks in relation to the general population. Higher percentile rankings indicate better function/quality of life. 50th percentile is the average of the general population and indicates half of respondents had a worse score. OBJECTIVE MEASURES WITH LEVEL OF FUNCTION: Lumbar Spine AROM Lumbar Flexion: Minimal limitation Lumbar Extension: Moderate limitation Lumbar R Side-Bend: Moderate limitation;Increased pain Lumbar L Side-Bend: Moderate limitation Lumbar R Rotation: Moderate limitation Lumbar L Rotation: Moderate limitataion LE AROM R LE AROM: WNL L LE AROM: WNL LE Strength R LE Strength: Grossly 5/5 L LE Strength: Grossly 5/5 R Hip Flexion (L2): 4+/5 L Hip Flexion (L2): 4+/5 Gait Gait Distance (feet): 50 Gait Device: None General Deviations/Observations: Flexed trunk posture TREATMENT: Therapeutic Exercise: 1: all objective measures taken this session 2: SKTC x 15 reps 3: Lumbar flexion foward with ball rollouts x 10 (pain with first 3 reps) Skilled Intervention: Patient was educated in proper exercise technique and purpose for exercises. Provided written instruction for home exercise program to facilitate proper performance and compliance. Correct performance of therapeutic exercises was facilitated with verbal cuing. Manual Therapy: 1: Self massage using ball vs wall technique on R lumbar paraspinals x 10 min Skilled Intervention: Manual skills to improve joint mobility, ROM, and decrease pain. Utilized anatomy knowledge of the therapist, and assessment of patient's response to intervention. Billing Therapeutic Exercise Treatment Minutes: 22 Manual TherapyTreatment Minutes: 10 Total Treatment Time Minutes (timed/untimed): 32 Raymundo Hsu PT documented in this encounter [facility] 06-05-2021 History of Present illness Narrative Episode Visit Count: 6 Therapist That Will Oversee The Plan Of Care: Raymundo Hsu Start of Care Date: 04/01/21 Onset Date: 04/01/20 Plan of Care Certification Date: 06/05/21 Next Certification Due Date: 07/17/21 Patient Identified by Name and Date of : Yes REHABILITATION AND SPORTS THERAPY PHYSICAL THERAPY PROGRESS REPORT PLAN OF CARE UPDATE: Assessment: Christiano Sorensen demonstrates significant improvement in DL/SL/tandem stance balance, decreased frequency of LE numbness, and improved 30 sec STS score . He has met 4 goals and progressed toward goals. Patient continues to present with impairments in ADL's, balance and core stability that interfere with rising from a chair . Current prognosis is Excellent due to: current objective clinical presentation;positive past response to therapy . He will benefit from continued skilled therapy services to meet the updated goals for this plan of care as noted below. Goals updated 05/02/2021 Goals for Episode of Care: created on 04/01/21 through 05/27/21 Independent in home exercises. - Met so far Pt will improve lumbar ROM to minimal limitation or better in 8 weeks or less to decrease lower back pain - Not met, will continue Patient will report no falls. - Met so far Improve score on 30 Second Chair Stand to 10 repetitions to reflect decreased fall risk. - MET Improve performance on 4 Stage Balance Test to 15 seconds to partial tandem stance to reflect decreased fall risk. - MET Pt will report no longer having radicular symptoms/numbness for 1 full week to improve QOL Not met, will continue Pt will be able to perform tandem walking with 1 LOB for 15 feet (NEW) Patient Goals: Pt wants to improve balance Planned Interventions, Frequency, and Duration: 1x/week, 4 weeks Total Number of Visits Planned: 4 Patient to be seen for Therapeutic exercise (85185);Manual therapy (48861);Self-intermediate management (08031);Patient/Family/Caregiver Education;Neuromuscular re-education (72407) PLAN FOR NEXT VISIT: Add in paloff for core strengthening. SUBJECTIVE: Patient Reason for Visit: Pt reports that he had numbness last week when he went to get up from a chair. Pt states that the getting up from bed at night and getting out of the chair the first few steps are shaky. Pt states he feels 40% improved overall. Functional Limitations: rising from a chair Pain: Pain Pain Level: 0 Pain Location: Low Back/Lumbar Spine - Left;Low Back/Lumbar Spine - Right Post Treatment Pain Post Treatment Pain Location: Low Back/Lumbar Spine - Left;Low Back/Lumbar Spine - Right PROMIS Scales Higher is Better 11/11/2016 02/28/2020 02/28/2020 GH Physical - Score - - 42.3 GH Physical - Percentile 15 % 22 % 22 % GH Mental - Score - - 45.8 GH Mental - Percentile 13 % 34 % 34 % T-scores: mean of general population = 50. 5 points is clinically meaningfully difference Percentiles provide an indication of how the patient's score ranks in relation to the general population. Higher percentile rankings indicate better function/quality of life. 50th percentile is the average of the general population and indicates half of respondents had a worse score. T-scores: mean of general population = 50. 5 points is clinically meaningfully difference Percentiles provide an indication of how the patient's score ranks in relation to the general population. Higher percentile rankings indicate better function/quality of life. 50th percentile is the average of the general population and indicates half of respondents had a worse score. OBJECTIVE MEASURES WITH LEVEL OF FUNCTION: Lumbar Spine AROM LE AROM Tested?: Yes LE PROM Tested?: Yes LE AROM R LE AROM: WNL L LE AROM: WNL LE Strength R LE Strength: Grossly 5/5 L LE Strength: Grossly 5/5 R Hip Flexion (L2): 4+/5 L Hip Flexion (L2): 4+/5 Functional Performance Test Results 30 Second Chair Stand Test: 11 reps 4 Stage Balance Test Narrow base of support (sec): 30 sec Semi-tandem base of support (sec): 15 sec Tandem base of support (sec): 15 sec Single leg stance - right (sec): 15 sec Single leg stance - left (sec): 6 sec Rising from a chair brings on numbness into bilateral Hamstring region TREATMENT: Therapeutic Exercise: 1: All objective measures taken this session 2: STS x 10 reps 3: STS holding 4# MB x 10 reps Skilled Intervention: Patient was educated in proper exercise technique and purpose for exercises. Provided written instruction for home exercise program to facilitate proper performance and compliance. Correct performance of therapeutic exercises was facilitated with verbal and visual cuing. Neuromuscular Re-Education: 1: Standing marches x 30 2: Standing NBOS 2 x 30 sec 3: Tilt board DF/PF x 30 reps no UE support Skilled Intervention: Skilled judgment used to assess appropriate program for balance and coordination activity. Insured patient safety with use of gait belt and constant CGA Billing Therapeutic Exercise Treatment Minutes: 30 Neuromuscular Re-Education Treatment Minutes: 13 Total Treatment Time Minutes (timed/untimed): 43 Raymundo Hsu PT documented in this encounter [facility] 05-23-2021 History of Present illness Narrative Episode Visit Count: 5 Therapist That Will Oversee The Plan Of Care: Raymundo Hsu Start of Care Date: 04/01/21 Onset Date: 04/01/20 Plan of Care Certification Date: 05/02/21 Next Certification Due Date: 06/06/21 Patient Identified by Name and Date of : Yes REHABILITATION AND SPORTS THERAPY PHYSICAL THERAPY TREATMENT NOTE ASSESSMENT: Christiano Sorensen tolerated the session with no issues. He demonstrated difficulty with some LOB corrected by this PT during balance training. The patient will continue to benefit from ongoing skilled physical therapy to progress toward set goals. PLAN FOR NEXT VISIT: POC update SUBJECTIVE: Patient Reason for Visit: Pt states the legs have not bothered him for 2 weeks. Pt states his balance is not much better. Pain: Pain Pain Level: 0 Pain Location: Low Back/Lumbar Spine - Left;Low Back/Lumbar Spine - Right Post Treatment Pain Post Treatment Pain Location: Low Back/Lumbar Spine - Left;Low Back/Lumbar Spine - Right OBJECTIVE MEASURES WITH LEVEL OF FUNCTION: Audible popping hear in pt's low back during balance training. Pt reports no pain with this TREATMENT: Therapeutic Exercise: 1: Seated row VTB 2 x 15 reps 2: Seated paloff VTB variable pulls 4 x 30 sec 3: Seated trunk iso with flexion force by VTB and this PT x 20 reps Skilled Intervention: Patient was educated in proper exercise technique and purpose for exercises. Correct performance of therapeutic exercises was facilitated with verbal and visual cuing. Neuromuscular Re-Education: 1: Standing marches x 30 2: Standing 90 degree turns on command L and R 2 x 30 seconds 3: Standing NBOS on Air-ex pad 3 x 30 seconds eyes open 4: Standing tandem stance 4 x 30 sec Skilled Intervention: Skilled judgment used to assess appropriate program for balance and coordination activity. Insured patient safety with use of gait belt and CGA Billing Therapeutic Exercise Treatment Minutes: 13 Neuromuscular Re-Education Treatment Minutes: 25 Total Treatment Time Minutes (timed and untimed codes) : 38 Raymundo Hsu PT documented in this encounter [facility] 09-12-2020 History of Present illness Narrative I have personally seen and examined Mr. Sorensen and discussed with him the plan of care. I have reviewed all of the laboratory data and available test results and discussed the case in detail with the fellow physician, Dr. Lantigua. I agree with the above documented history, physical examination findings and medical decision making. Mr. Sorensen is a 79 yo patient with a history of WM with a low level IgM diagnosed in 2012 who has never required therapy. He was a prior patient of Dr. Jackson who established care in our clinic in March 2016. 1) WM Mr. Sorensen presents today for 6 month follow up. He is doing well from our standpoint. He has no evidence of progressive disease today by history, exam or labs - his IgM is overall stable as is his hemoglobin. He has no indication for treatment. We have previously discussed that there are several options for treatment when required and can include single agent rituximab, BTK inhibitor with ibrutinib zanubrutinib - the phase III data with this, BR and [id number] with acalabrutinib and obinutuzumab, venetoclax, also being studied. 2) GI symptoms Unclear of etiology but no splenomegaly or association that I can see to his WM. No neuro symptoms. He is followed by both his PCP and GI. Did say we could repeat a CT abdomen if this worsened or became more persistent, did have a CTA with a stress test in May and this noted no lymphadenopathy or splenomegaly. He has had an EGD. He will return in 6 months with labs and exam. I have answered all of his questions. He knows to contact us sooner if he has questions, concerns or issues. -KJM History of Present Illness: Mr. Sorensen presents for 6 month follow up of his WM. Interval History Mr. Sorensen presents for follow up visit. Has been doing okay since his last visit. Has continued to have significant stomach related issues. Has been regurtating and burping during meals. Has not seen GI for a while. Taking a PPI. Has been having some headaches in the last 6 months or so. Denies any visual changes. Had a stress test last week which was normal. Energy level is stable. He denies fever, night sweats, weight loss, new lymphadenopathy, SOB, CP, vomiting, constipation, numbness/tingling, swelling, bleeding, bruising, and rash. Disease History: Mr. Sorensen is a 79 y.o. 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 He has been monitored on surveillance and his counts have been stable with no lymphadenopathy. He was seen by Dr. Kaden Calderon, at the [facility] which I believe is associated with [facility], as part of his workup in conjunction with seeing Dr. Calderon. He had a bone marrow biopsy on 03/04/2012 which was remarkable for several circumscribed interstitial lymphoid aggregates composed of small, round lymphocytes that were noted in the clot section. Immuno stains showed that aggregates were composed of CD3-positive T-cells predominantly and with fewer admixed [id number] B cells. These aggregates accounted for less than 5% of the overall cellularity. Immuno stains for CD138 kappa and lambda cytoplasmic immunoglobulin were done and showed that the plasma cells represented less than 5% of overall cellularity and appeared polytypic. Flow cytometry of the marrow showed a low level B cell population (0.6% of total cells) with an otherwise unremarkable phenotype aside from an elevated kappa to lambda ratio (4.4) that was suggestive of monoclonality. Specifically, regarding the 6% of total events that have CD45 and side scatter properties of lymphocytes. The lymphocytes were composed of a mixture of T cells 74% with the CD4:CD8 ratio 1.4, NK cells 6%, and B cells 20%. The B cells displayed an abnormal immunophenotype and expressed CD19, CD20, CD45, CD79b, and FMC7 with monocytic kappa surface light chain immunoglobulin and kappa to lambda ratio 4.4. The B cells were negative for CD5 and CD10 and these B cells represented approximately 0.6% of the total cells as mentioned. His cytogenetics were normal. At the time of his bone marrow biopsy on 03/04/2012, his CBC was rather unremarkable with a white blood cell count of 5.7, hemoglobin 14.4, platelets of 184,000 with 66% neutrophils, 31% lymphocytes, 2% monocytes, and rare plasmacytoid lymphocytes at 1%. He also had a CT chest, abdomen, and pelvis as part of his workup, the report of which I do not have, which the patient reports was remarkable for a small adrenal nodule, a prostate nodule, as well as a thick bladder. He does not report any splenomegaly or adenopathy or any other remarkable findings. These findings did prompt further evaluation with a PSA. His PSA was reported to me as normal and the urologist per report was not concerned about his thickened bladder finding. After this aforementioned workup, it was concluded by Dr. 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 Of note in addition to a normal CBC on 03/04/2012, he had a normal beta 2, LDH, creatinines, calcium, and albumin. Review of Systems: A full ROS was performed and negative other than reported in interval history. 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 Bronchitis past Cancer (HCC) 2012 Chest pain Diverticulosis Diverticulosis Hemorrhoids 2012 Hyperlipidemia IBS (irritable bowel syndrome) Infectious mononucleosis 1960 Lymphoma (HCC) 2012 Measles 185 Pneumonia Whooping cough 1849 Past Surgical History: Procedure Laterality Date COLONOSCOPY 2013 EGD W/ BX N/A 02/03/2013 Laterality: N/A; Surgeon: Jared Cline MD; Location: [facility] ENDOSCOPY COLONOSCOPY FOR COLORECTAL CANCER SCREENING HIGH RISK INDIVIDUAL N/A 02/03/2013 Laterality: N/A; Surgeon: Jared Cline MD; Location: [facility] ENDOSCOPY CHOLECYSTECTOMY LAPAROSCOPIC 2009 Current Outpatient Medications Medication Sig aspirin 81 MG Tab take 81 mg by mouth daily. Cetirizine HCl (ZYRTEC ALLERGY PO) as needed. esomeprazole [address] take 20 mg by mouth 2 times daily.. LACTULOSE PO Take 30 mL by mouth daily. rosuvastatin 20 MG PO TABS take 20 mg by mouth daily. tadalafil 10 MG Tab take 10 mg by mouth as needed. zolpidem 5 MG Tab tablet Take 5 mg by mouth At bedtime as needed. Allergies Allergen Reactions Not Able To Determine Deodorant - rash and itchiness. Can only tolerated hypo-allogenic deodorant Social History Socioeconomic History Marital status: Single Spouse name: Not on file Number of children: 2 Years of education: Not on file Highest education level: Not on file Occupational History Occupation: 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 His current has been with him for 10+ years but his children are from a previous relationship Social Determinants of Health Financial Resource Strain: Difficulty of Paying Living Expenses: Food Insecurity: Worried About Running Out of Food in the Last Year: Ran Out of Food in the Last Year: Transportation Needs: Lack of Transportation (Medical): Lack of Transportation (Non-Medical): Physical Activity: Days of Exercise per Week: Minutes of Exercise per Session: Stress: Feeling of Stress : Social Connections: Frequency of Communication with Friends and Family: Frequency of Social Gatherings with Friends and Family: Attends Yarsani Services: Active Member of Clubs or Organizations: Attends Club or Organization Meetings: Marital Status: Intimate Partner Violence: Fear of Current or Ex-Partner: Emotionally Abused: Physically Abused: Sexually Abused: Family History Problem Relation Age of Onset Other - Specify Father severe allergy to shellfish, colon cancer Diabetes Father Colorectal Cancer Father 72 Neurologic Disease Mother Alzheimers Neurologic Disease Brother MS Cancer- Other Paternal Grandfather testicular cancer BP 143/65 (BP Position: Sitting) Pulse 50 Temp 97.8 F (36.6 C) (Oral) Resp 14 Wt 82.9 kg (182 lb 12.8 oz) SpO2 98% BMI 24.12 kg/m Smoking Status Former Smoker Physical Examination: General: Alert and oriented, no acute distress. HEENT: PERRL, EOMI. Conjunctiva non-injected. Heart: Regular rate and rhythm, no murmurs. Lungs: Clear to auscultation with no rhonci or wheezes. Abdomen: Soft, non-tender, non-distended. No splenomegaly. Musculoskeletal: Normal strength and range of motion. Neurologic: CN intact with no focal neurologic deficits. Skin: No rashes or lesions noted. Extremities: Normal with no edema. Lymph: I do not palpate any cervical, supraclavicular, axillary or inguinal adenopathy. Body mass index is 24.12 kg/m . ECOG Performance Status: 0 Lab Results Component Value Date WBC 5.53 09/12/2020 HGB 13.0 (L) 09/12/2020 HCT 38.3 (L) 09/12/2020 PLATELET 160 09/12/2020 MCV 94.3 09/12/2020 Lab Results Component Value Date SODIUM 137 09/12/2020 POTASSIUM 4.2 09/12/2020 CHLORIDE 105 09/12/2020 CO2 27 09/12/2020 BUN 23 (H) 09/12/2020 CREATSERUM 1.06 09/12/2020 Lab Results Component Value Date ALT 15 09/12/2020 AST 19 09/12/2020 ALKPHOS 78 09/12/2020 BILITOTAL 0.9 09/12/2020 IgM 829 (previous 734), monoclonal protein pending Assessment/Plan: Mr. Sorensen is a 78 yo patient with a history of WM with a low level IgM diagnosed in 2012 who has never required therapy. He was a prior patient of Dr. Jackson who established care in our clinic in March 2016. 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 Sorensen presents today for 6 month follow up. Overall continued to do well from Waldenstrom standpoint. He has no evidence of progressive disease today by history, exam or labs. IgM and monoclonal protein pending. Will follow-up on monoclonal protein but he otherwise has no indication for treatment. We have previously discussed that there are several options for treatment when required. Will RTC in 6 months. GI symptoms: Suspect may be related to hiatal hernia and Funez's esophagus. He has had an EGD which was stable from prior. Has not seen GI in a while, encouraged to schedule follow-up. I have answered all of his questions. He knows to contact us sooner if he has questions, concerns or issues. Patient seen and discussed with Dr. Aguilar, attending physician. Katt Lantigua MD Hematology/Oncology Fellow documented in this encounter [facility] 09-12-2020 Instructions Karlene Tamez RN - 09/12/2020 2:15 PM EDT Primary Care Team Dr. Suzette Russell CNP- Certified Nurse Practitioner Esdras Retana PA-C Physicians Assistant Ligia Barrett RN - Primary Nurse Karlene Tamez RN-Primary Nurse Israel SORTO RN [facility]- Patient Care Steam Tank Operator [phone] Contact Numbers: Clinic Phone & Appointment Changes: [phone] Clinic For Medication Refills: If possible please notify us the beginning of the week for any Narcotic refills you may need if not coming in that week for an appointment. We attempt to fill them as soon as they come in but Dr. Aguilar is only in the clinic on . Please call your pharmacy to verify when to fish bait picker. Allow one week for refills, please do not let your prescription run out. We will call them in to the pharmacy of your request, using the one listed in your chart if not specified differently. You will not be contacted about the refill except for any questions or concerns. Please call your pharmacy to verify when to fish bait picker. All Paperwork: Please allow up to 2 weeks for all disability, FMLA, etc to be filled out. Please specify what your request is as to what and where we should send completed paperwork. (This is to inform us if we should send the completed papers to you or directly to your employer). Ligia, the primary nurse is the one who will normally fill this paperwork out for you, and will only call to inform you the paperwork is completed and sent if requested. [facility] MY Chart: The medical information you will have access to within the My Chart program is only selected portions of your entire chart, such as basic laboratory results, summary medical history, visit history, and selected billing information. It will also allow you to communicate with your health care provider through email. Please understand we do not place all results from labs, tests and procedures. To provide you with the best quality care available we need to be able to discuss these results with you personally. If you are unable to obtain the results of a test that you can't find within the My Chart please feel free to call us and we will get back to you with that information. [employer] messages: When sending a message to the provider, please know that these messages will be received and answered by the primary nurse practitioner. The nurse practitioner will consult your physician when needed. Please call us with any questions or concerns that you may have. Please call if temperature is greater than 100.4 orally. Results for orders placed or performed in visit on 09/12/20 LACTATE DEHYDROGENASE Result Value Ref Range LD Total 142 100 - 190 U/L COMPREHENSIVE METABOLIC PANEL Result Value Ref Range Sodium 137 133 - 143 mmol/L Potassium 4.2 3.5 - 5.0 mmol/L Chloride 105 98 - 108 mmol/L BUN 23 (H) 7 - 22 mg/dL Creatinine 1.06 0.70 - 1.30 mg/dL Glucose 88 70 - 99 mg/dL Bilirubin Total 0.9 <1.5 mg/dL Albumin 3.8 3.5 - 5.0 g/dL Total Protein 6.7 6.4 - 8.3 g/dL AST 19 14 - 40 U/L ALP 78 32 - 126 U/L Calcium 8.9 8.6 - 10.5 mg/dL Bun/Crea Ratio 22 CO2 27 22 - 30 mmol/L ALT 15 10 - 52 U/L EST GFR,Non >=60 >=60 mL/min/1.73sqM EST GFR, >=60 >=60 mL/min/1.73sqM Osmolality (Calculated) 290 278 - 305 mOsm/kg Anion Gap 9 7 - 17 mmol/L CBC AND ELECTRONIC DIFF Result Value Ref Range WBC Count 5.53 3.73 - 10.10 K/uL RBC Count 4.06 (L) 4.38 - 5.83 M/uL Hemoglobin 13.0 (L) 13.4 - 16.8 g/dL Hematocrit 38.3 (L) 39.6 - 48.8 % Mean Cell Volume 94.3 79.0 - 94.5 fL Mean Cell Hgb 32.0 26.1 - 33.3 pg Mean Cell Hgb Conc 33.9 31.9 - 36.5 g/dL RBC Distribution 13.0 10.9 - 14.3 % Platelet Count 160 146 - 337 K/uL Mean Platelet Volume 10.2 8.7 - 12.3 fL DIFF STATUS Electronic Differential Segs + Bands Auto 66.6 % Immature Grans % 0.2 % Lymphocyte % Auto 19.2 % Monocyte % Auto 11.0 % Eosinophil % Auto 2.5 % Basophil % Auto 0.5 % Nucleated RBC 0.0 <=0.2 /100 WBC Segs + Bands,Absolute Auto 3.68 1.57 - 6.19 K/uL Immature Grans Absolute <0.04 <=0.08 K/uL Abs Lymph Auto 1.06 0.83 - 3.57 K/uL Abs [place] Auto 0.61 0.24 - 0.93 K/uL Abs Eos Auto 0.14 0.00 - 0.48 K/uL Abs Baso Auto <0.04 0.00 - 0.09 K/uL documented in this encounter [facility] 06-13-2020 Note HNO ID: [id number] Author: Harrison Rojas MD Service: ? Author Type: Physician Type: Progress Notes Filed: 06/13/2020 9:43 AM Note Text: Patient seen today in assessment evaluation of his carotid artery disease and subclavian artery stenosis and his follow-up for his abdominal aortic aneurysm repair which was done about 6 years ago. Patient is doing very well and with the exception of some complaints of the little tired from aging he is otherwise doing quite reasonably. He has no new voiced complaints at this time. He has no signs or symptoms of TIA or stroke. He has no unilateral arm weakness or numbness or tiredness. He has no dizziness or lightheadedness. He has no abdominal pain or back pain associated with his aneurysm. His ultrasound today shows a mild bilateral carotid stenosis of less than 50% and still does give evidence of the subclavian artery stenosis that we know about. Again this is asymptomatic. His CT scan shows no evidence of endoleak and shows continued regression of his aneurysm sac. I tell him at this point in time that we can therefore go ahead and plan on doing ultrasounds for follow-up of his aorta. Patient is very satisfied with this and is going to go ahead and follow-up with me in 1 year after aortic ultrasound has been performed. We will also get carotid ultrasound at that time to keep track of his carotid stenosis.Patient is on appropriate antiplatelet and statin therapy. No palpable popliteal aneurysms are noted today. Palpable dorsal pedal pulses are noted today. Patient is doing well otherwise at this point time and will follow up yearly. The patient is currently taking a statin: Yes The patient is currently taking aspirin: Yes This note was generated with [employer] dictation software. It may contain incorrect words, spelling, and punctuation and that were not noted in review of the chart prior to signing. I spent 15 minutes in the visit, with more than 50% of the total [id number] time of the visit in counseling / coordination of care. [facility] 04-18-2020 Note HNO ID: [id number] Author: Martha (Tree Inspector Albert) ALBERT Cain Service: ? Author Type: Nurse Practitioner Type: Progress Notes Filed: 04/18/2020 12:43 PM Note Text: Order placed for annual carotid US. Martha Cain APRN.ALBERT [facility] Balance problem- Primary Other symptoms involving nervous and musculoskeletal systems Chronic low back pain without sciatica, unspecified back pain laterality [facility] Diagnosis Balance problem- Primary Other symptoms involving nervous and musculoskeletal systems Chronic low back pain without sciatica, unspecified back pain laterality [facility] Diagnosis Balance problem- Primary Other symptoms involving nervous and musculoskeletal systems Chronic low back pain without sciatica, unspecified back pain laterality documented in this encounter [facility] note* Diagnosis Waldenstrom macroglobulinemia Macroglobulinemia [facility] Diagnosis Lumbar sprain, subsequent encounter- Primary Chronic low back pain without sciatica, unspecified back pain laterality DDD (degenerative disc disease), lumbar Degeneration of lumbar or lumbosacral intervertebral disc [facility] Diagnosis Lumbar sprain, subsequent encounter- Primary Chronic low back pain without sciatica, unspecified back pain laterality DDD (degenerative disc disease), lumbar Degeneration of lumbar or lumbosacral intervertebral disc [facility] Diagnosis Balance problem- Primary Other symptoms involving nervous and musculoskeletal systems Chronic low back pain without sciatica, unspecified back pain laterality [facility] Diagnosis Screening for colon cancer- Primary Special screening for malignant neoplasms, colon Family hx of colon cancer Family history of malignant neoplasm of gastrointestinal tract 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 [facility] Diagnosis COVID- Primary [facility] Diagnosis Abdominal aortic aneurysm (AAA) without rupture (HCC)- Primary 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 Subclavian artery stenosis, right (HCC) Atherosclerosis of other specified arteries GERD without esophagitis Esophageal reflux Renal insufficiency Unspecified disorder of kidney and ureter Elevated fasting blood sugar Impaired fasting glucose Bilateral carotid artery stenosis Occlusion and stenosis of carotid artery without mention of cerebral infarction Thrombocytopenia (HCC) Thrombocytopenia, unspecified Disorder of prostate Unspecified disorder of prostate 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 Mixed hyperlipidemia Medication management Encounter for long-term (current) use of other medications [facility] Diagnosis Infrarenal abdominal aortic aneurysm (AAA) without rupture- Primary Abdominal aortic aneurysm (AAA) without rupture Subclavian artery stenosis, right (HCC) Atherosclerosis of other specified arteries Bilateral carotid artery stenosis Occlusion and stenosis of carotid artery without mention of cerebral infarction [facility] Diagnosis Waldenstrom macroglobulinemia [facility]roglobulinemia [facility] Medicare annual wellness visit, subsequent- Primary Routine general medical examination at a health care facility Mixed hyperlipidemia Chronic bronchitis, unspecified chronic bronchitis type (HCC) Elevated fasting blood sugar Impaired fasting glucose 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 GERD without esophagitis Esophageal reflux Abdominal aortic aneurysm (AAA) without rupture, unspecified part (HCC) Bilateral carotid artery stenosis Occlusion and stenosis of carotid artery without mention of cerebral infarction Subclavian artery stenosis, right (HCC) Atherosclerosis of other specified arteries 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, unspecified extranodal and solid organ sites Waldenstrom's macroglobulinemia (HCC) Macroglobulinemia Thrombocytopenia (HCC) Thrombocytopenia, unspecified Anemia, unspecified type Primary insomnia Persistent disorder of initiating or maintaining sleep Erectile dysfunction, unspecified erectile dysfunction type Benign non-nodular prostatic hyperplasia without lower urinary tract symptoms Advance directive discussed with patient Other specified counseling [facility] Diagnosis Balance problem- Primary Other symptoms involving nervous and musculoskeletal systems [facility] Diagnosis Rosacea- Primary Monoclonal gammopathy Monoclonal paraproteinemia Anemia, unspecified type Waldenstrom macroglobulinemia (HCC) Macroglobulinemia Mixed hyperlipidemia GERD without esophagitis Esophageal reflux 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, unspecified extranodal and solid organ sites Bilateral carotid artery stenosis Occlusion and stenosis of carotid artery without mention of cerebral infarction 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 Thrombocytopenia (HCC) Thrombocytopenia, unspecified Abdominal aortic aneurysm (AAA) without rupture, unspecified part (HCC) Chronic bronchitis, unspecified chronic bronchitis type (HCC) Hiatal hernia Diaphragmatic hernia without mention of obstruction or gangrene Benign non-nodular prostatic hyperplasia without lower urinary tract symptoms DDD (degenerative disc disease), lumbar Degeneration of lumbar or lumbosacral intervertebral disc [facility] Diagnosis Lightheadedness- Primary Dizziness and giddiness Unsteadiness Abnormality of gait documented in this encounter [facility] [place] note* Diagnosis Unsteadiness- Primary Abnormality of gait [facility] Diagnosis Unsteadiness- Primary Abnormality of gait documented in this encounter [facility] [place] note* Diagnosis Unsteadiness- Primary Abnormality of gait documented in this encounter [facility] [place] note* Diagnosis Unsteady gait- Primary Abnormality of gait Need for influenza vaccination Need for prophylactic vaccination and inoculation against influenza documented in [facility]* Diagnosis Anemia, unspecified type- Primary Waldenstrom macroglobulinemia Macroglobulinemia [facility] Outpatient Procedure (Routine) - Authorized Specialty Diagnoses / Procedures Referred By Contac t Referred To Contact [facility] [place] Diagnoses Abdominal aortic aneurysm (AAA) without rupture Procedures US ABD AORTA COMPLETE VAS LAB DUP-SCAN AORTA IVC ILIAC VASCL/BPGS COMPLETE Tata Porter DO [address] [place] [address] [facility] [address] [address] Referral ID Status Reason Start Date Expiration Date Visits Requested Visits Authorized [id number] Authorized Auto-Generat ed Referral 2 12/09/2022 1 1 * Outpatient Procedure (Routine) - Authorized Specialty Diagnoses / Procedures Referred By Contac t Referred To [facility] [place] Diagnoses Subclavian artery stenosis, right (HCC) Bilateral carotid artery stenosis Procedures US CAROTID ARTERIES DIO VAS LAB DUPLEX SCAN EXTRACRANIAL ART COMPL BI STUDY Tata Porter DO [address] [place] [address] [facility] [address] [address] Referral ID Status Reason Start Date Expiration Date Visits Requested Visits Authorized [id number] Authorized Auto-Generat ed Referral 12/09/2022 1 1 [facility] Summary Purpose Family History No Family History Records FoundNo Family History Records FoundNo Family History Records FoundNo Family History Records FoundNo Family History Records Found Advance Directives No Advanced Directives Records FoundDocuments on File Type Date Recorded Patient Compressor Station Operator Expl anation Advance Directive(s) Documents on File Type Date Recorded Patient Compressor Station Operator Expl anation Advance Directive(s) Reason for Referral Specialty Diagnoses / Procedures Referred By Contac t Referred To Contact Diagnoses Lumbar sprain, subsequent encounter Chronic low back pain without sciatica, unspecified back pain laterality DDD (degenerative disc disease), lumbar Procedures CONSULT TO PAIN MGT OFFICE/OUTPATIENT [facility] 60-74 MINUTES Davon Archer PA-C [address] [place] [address] Referral ID Status Reason Start Date Expiration Date Visits Requested Visits Authorized [id number] Authorized PCP Requested Referral 08/14/2021 08/13/2022 1 1 Specialty Diagnoses / Procedures Referred By Contac t Referred To Contact Gastroenterology Diagnoses Screening for colon cancer Family hx of colon cancer 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 Procedures CONSULT TO GASTROENTEROLOGY OFFICE/OUTPATIENT [facility] 60-74 MINUTES Tanisha Garcia PA-C [address] [place] [address] Referral ID Status Reason Start Date Expiration Date Visits Requested Visits Authorized [id number] Authorized PCP Requested Referral 08/21/2021 08/21/2022 1 1 Specialty Diagnoses / Procedures Referred By Contac t Referred To Contact Vascular Surgery Diagnoses Abdominal aortic aneurysm (AAA) without rupture (HCC) Subclavian artery stenosis, right (HCC) Bilateral carotid artery stenosis Procedures CONSULT TO VASCULAR SURGERY OFFICE/OUTPATIENT [facility] 60-74 MINUTES Tanisha Garcia PA-C [address] [place] [address] Referral ID Status Reason Start Date Expiration Date Visits Requested Visits Authorized [id number] Authorized PCP Requested Referral 09/26/2021 09/26/2022 1 1 Specialty Diagnoses / Procedures Referred By Contac t Referred To Contact Vascular Medicine Diagnoses Abdominal aortic aneurysm (AAA) without rupture (HCC) Subclavian artery stenosis, right (HCC) Bilateral carotid artery stenosis Procedures CONSULT TO VASCULAR MEDICINE OFFICE/OUTPATIENT [facility] 60-74 MINUTES Tanisha Garcia PA-C [address] [place] [address] Referral ID Status Reason Start Date Expiration Date Visits Requested Visits Authorized [id number] Authorized PCP Requested Referral 09/26/2021 09/26/2022 1 1 Specialty Diagnoses / Procedures Referred By Contac t Referred To Contact [facility] Diagnoses Unsteadiness Procedures CONSULT TO PHYSICAL THERAPY PHYSICAL THERAPY EVALUATION [facility] COMPLEX 45 MINS Tanisha Garcia PA-C [address] [place] [address] [facility] [address] [place] [address] Referral ID Status Reason Start Date Expiration Date Visits Requested Visits Authorized [id number] Authorized PCP Requested Referral Auto-Generate d Referral 10/27/2022 10/27/2023 99 99 Specialty Diagnoses / Procedures Referred By Contac t Referred To Contact Neurology Diagnoses Unsteady gait Procedures CONSULT TO NEUROLOGY OFFICE/OUTPATIENT [facility] 60-74 MINUTES Carmella Copeland MD [address] [place] [address] Referral ID Status Reason Start Date Expiration Date Visits Requested Visits Authorized [id number] Authorized PCP Requested Referral 3 01/09/2024 1 1 Specialty Diagnoses / Procedures Referred By Contac t Referred To Contact [facility] IMAGING Diagnoses Unsteady gait Procedures MRI BRAIN WO/W IVCON MRI BRAIN BRAIN STEM W/O W/CONTRAST MATERIAL Carmella Copeland MD [address] [place] [address] [place] [address] Referral ID Status Reason Start Date Expiration Date Visits Requested Visits Authorized [id number] Authorized Auto-Generat ed Referral 3 02/08/2024 1 1 Health Concerns Infection Onset Date Last Indicated Resolved Time COVID-19 Confirmed 09/18/2021 09/18/2021 Infection Onset Date Last Indicated Resolved Time COVID-19 Confirmed 09/18/2021 09/18/2021 8:51 PM EDT Additional Source Comments (unrecognized sect ion and content) No Status Records FoundNo Status Records FoundNo Status Records FoundNo Status Records FoundNo Status Records Found INFORMATION SOURCE (unrecogn ized section and content) DATE CREATED AUTHOR AUTHOR'S ORGANIZ ATION 07/09/2018 [facility] DATE CREATED AUTHOR AUTHOR'S ORGANIZ ATION 06/15/2020 [facility] DATE CREATED AUTHOR AUTHOR'S ORGANIZ ATION 01/27/2023 [facility] DATE CREATED AUTHOR AUTHOR'S ORGANIZ ATION 02/20/2023 [facility] Reason for Visit (unrecogniz ed section and content) Specialty Diagnoses / Procedures Referred By Contac t Referred To Contact [facility] Diagnoses Unsteadiness Procedures CONSULT TO PHYSICAL THERAPY PHYSICAL THERAPY EVALUATION [facility] 45 MINS Tanisha Garcia PA-C [address] [place] [address] [facility] [address] [address] Referral ID Status Reason Start Date Expiration Date Visits Requested Visits Authorized [id number] Authorized PCP Requested Referral Auto-Generate d Referral 10/27/2022 10/27/2023 99 99 Reason Comments Physical Therapy Reason Comments PT Progress Note Specialty Diagnoses / Procedures Referred By Contac t Referred To Contact [facility] Diagnoses Chronic low back pain without sciatica, unspecified back pain laterality Balance problem Procedures CONSULT TO PHYSICAL THERAPY PHYSICAL THERAPY EVALUATION [facility] 45 MINS Jared Robertson MD [address] [place] [address] [facility] [address] [address] Referral ID Status Reason Start Date Expiration Date Visits Requested Visits Authorized [id number] Authorized PCP Requested Referral Auto-Generate d Referral 03/29/2021 03/29/2022 99 99 Reason Comments Follow-up Reason Comments Hospital Follow Up [facility] 08/04/21-08/05/21 Intractable low back pain Reason Comments Referral Request Reason Comments Referral Request Orders Appointment Reason Comments Covid Test Result Specialty Diagnoses / Procedures Referred By Mike elliott Referred To Contact Vascular Surgery Diagnoses Abdominal aortic aneurysm (AAA) without rupture Subclavian artery stenosis, right (HCC) Bilateral carotid artery stenosis Procedures CONSULT TO VASCULAR SURGERY OFFICE/OUTPATIENT [facility] 60-74 MINUTES Tanisha Garcia PA-C [address] [place] [address] Referral ID Status Reason Start Date Expiration Date V isits Requested Visits Authorized [id number] Closed PCP Requested Referral 09/26/2021 09/26/2022 1 1 Reason Comments Opened In Error Reason Comments Cough Reason Comments Results EGD Reason Comments Medicare Wellness Exam Reason Comments Results Reason Comments Consult General Surgery Reason Comments Consult Reason Comments Consult GI Reason Comments Dizziness Off balance, possibl e ear infection x 1 day Reason Comments Outside Imaging Reason Comments Orders Reason Comments balance issues Reason Comments Patient Update Reason Onset Date Comments Balance Not improving, o ngoing issue Immunizations 01/09/2023 Flu vaccination Care Teams (unrecognized sec tion and content) Preforming Machine Operator Relationship Specialty Start Date End Date Jared Robertson MD [address] [place], [place] [id number] PCP - General Family Practice 07/08/15 Kaden Ortiz [address] [address] Cardiology 07/30/17 Preforming Machine Operator Relationship Specialty Start Date End Date Jared Robertson MD [address] [place], [place] [id number] [phone] PCP - General Family Practice 07/08/15 Kaden Ortiz [address] [address] Cardiology 07/30/17 Preforming Machine Operator Relationship Specialty Start Date End Date Jared Robertson MD [address] [place] [address] PCP - General Family Practice 07/08/15 Kaden Ortiz [address] [place] [address] Cardiology 07/30/17 Preforming Machine Operator Relationship Specialty Start Date End Date Jared Robertson MD [address] [facility] [place] [address] PCP - General Family Medicine 09/16/17 Preforming Machine Operator Relationship Specialty Start Date End Date Jared Robertson MD [address] [facility] [place] [address] PCP - General Family Practice 07/08/15 Kaden Ortiz [address] [place] [address] Cardiology 07/30/17 Preforming Machine Operator Relationship Specialty Start Date End Date Jared Robertson MD [address] [facility] [place] [address] PCP - General Family Practice 07/08/15 Kaden Ortiz [address] [place] [address] Cardiology 07/30/17 Preforming Machine Operator Relationship Specialty Start Date End Date Jared Robertson MD [address] [facility] [place] [address] PCP - General Family Practice 07/08/15 Kaden Ortiz [address] [place] [address] Cardiology 07/30/17 Preforming Machine Operator Relationship Specialty Start Date End Date Jared Robertson MD [address] [place] [address] PCP - General Family Practice 07/08/15 Kaden Ortiz [address] [place] [address] Cardiology 07/30/17 Preforming Machine Operator Relationship Specialty Start Date End Date Jared Robertson MD [address] [facility] [address] PCP - General Family Practice 07/08/15 Kaden Ortiz [address] [place] [address] Cardiology 07/30/17 Preforming Machine Operator Relationship Specialty Start Date End Date Jared Robertson MD [address] [facility] [place] [address] PCP - General Family Practice 07/08/15 Kaden Ortiz [address] [place] [address] Cardiology 07/30/17 Preforming Machine Operator Relationship Specialty Start Date End Date Jared Robertson MD [address] [facility] [place] [address] PCP - General Family Medicine 07/08/15 [address]aden Ortiz [address] [place] [address] Cardiology 07/30/17 Preforming Machine Operator Relationship Specialty Start Date End Date Jared Robertson MD [address] [facility] [place] [address] PCP - General Family Medicine 07/08/15 Kaden Ortiz [address] [place] [address] Cardiology 07/30/17 Preforming Machine Operator Relationship Specialty Start Date End Date Jared Robertson MD [address] [place] [address] PCP - General Family Medicine 07/08/15 Kaden Ortiz [address] [place] [address] Cardiology 07/30/17 Preforming Machine Operator Relationship Specialty Start Date End Date Jared Robertson MD [address] [facility] [address] PCP - General Family Medicine 09/16/17 Preforming Machine Operator Relationship Specialty Start Date End Date Jared Robertson MD [address] [place] [address] PCP - General Family Medicine 07/08/15 [address]aden Ortiz [address] [place] [address] Cardiology 07/30/17 Preforming Machine Operator Relationship Specialty Start Date End Date Jared Robertson MD [address] [place] [address] PCP - General Family Medicine 07/08/15 Kaden Ortiz [address] [place] [address] Cardiology 07/30/17 Preforming Machine Operator Relationship Specialty Start Date End Date Jared Robertson MD [address] [place] [address] PCP - General Family Medicine 07/08/15 Kaden Ortiz [address] [place] [address] Cardiology 07/30/17 Preforming Machine Operator Relationship Specialty Start Date End Date Jared Robertson MD [address] [facility] [place] [address] PCP - General Family Medicine 07/08/15 [facility] Ortiz [address] [facility] [address] [address] Cardiology 07/30/17 Preforming Machine Operator Relationship Specialty Start Date End Date Jared Robertson MD [address] [place] [address] PCP - General Family Medicine 07/08/15 Kaden Ortiz [address] [address] Cardiology 07/30/17 Preforming Machine Operator Relationship Specialty Start Date End Date Jared Robertson MD [address] [place] [address] PCP - General Family Medicine 07/08/15 Kaden Ortiz [address] [address] Cardiology 07/30/17 Preforming Machine Operator Relationship Specialty Start Date End Date Jared Robertson MD [address] [place] [address] PCP - General Family Medicine 07/08/15 Kaden Ortiz [address] [address] Cardiology 07/30/17 Preforming Machine Operator Relationship Specialty Start Date End Date Jared Robertson MD [address] [place] [address] PCP - General Family Medicine 07/08/15 Kaden Ortiz [address] [place] [address] Cardiology 07/30/17 Preforming Machine Operator Relationship Specialty Start Date End Date Jared Robertson MD [address] [place] [address] PCP - General Family Medicine 07/08/15 Kaden Ortiz [address] [place] [address] Cardiology 07/30/17 Preforming Machine Operator Relationship Specialty Start Date End Date Jared Robertson MD [address] [place] [address] PCP - General Family Medicine 07/08/15 Kaden Ortiz [address] [address] Cardiology 07/30/17 Preforming Machine Operator Relationship Specialty Start Date End Date Jared Robertson MD [address] [place] [address] PCP - General Family Medicine 07/08/15 Kaden Ortiz MD [address] [address] Cardiology 07/30/17 Preforming Machine Operator Relationship Specialty Start Date End Date Jared Robertson MD [address] [place] [address] PCP - General Family Medicine 07/08/15 Kaden Ortiz MD [address] [address] Cardiology 07/30/17 Preforming Machine Operator Relationship Specialty Start Date End Date Jared Robertson MD [address] [place], [place] [address] PCP - General Family Medicine 07/08/15 Kaden Ortiz MD [address] [address] Cardiology 07/30/17 Preforming Machine Operator Relationship Specialty Start Date End Date Jared Robertson MD [address] [place] [address] PCP - General Family Medicine 09/16/17 Source Comments (unrecognize d section and content) In the event this informatio n is protected by the Federal Confidentiality of Alcohol and Drug Abuse Patient Records regulations: The Federal rules restrict any use of the information to criminally investigate or prosecute any alcohol or drug abuse patient.[facility] Healthcare[facility] the event this information is protected by the Federal Confidentiality of Alcohol and Drug Abuse Patient Records regulations: The Federal rules restrict any use of the information to criminally investigate or prosecute any alcohol or drug abuse patient.[facility] HealthcareIn the event this information is protected by the Federal Confidentiality of Alcohol and Drug Abuse Patient Records regulations: The Federal rules restrict any use of the information to criminally investigate or prosecute any alcohol or drug abuse patient.[facility] HealthcareIn the event this information is protected by the Federal Confidentiality of Alcohol and Drug Abuse Patient Records regulations: The Federal rules restrict any use of the information to criminally investigate or prosecute any alcohol or drug abuse patient.[facility] HealthcareIn the event this information is protected by the Federal Confidentiality of Alcohol and Drug Abuse Patient Records regulations: The Federal rules restrict any use of the information to criminally investigate or prosecute any alcohol or drug abuse patient.[facility] HealthcareIn the event this information is protected by the Federal Confidentiality of Alcohol and Drug Abuse Patient Records regulations: The Federal rules restrict any use of the information to criminally investigate or prosecute any alcohol or drug abuse patient.[facility] HealthcareIn the event this information is protected by the Federal Confidentiality of Alcohol and Drug Abuse Patient Records regulations: The Federal rules restrict any use of the information to criminally investigate or prosecute any alcohol or drug abuse patient.[facility] HealthcareIn the event this information is protected by the Federal Confidentiality of Alcohol and Drug Abuse Patient Records regulations: The Federal rules restrict any use of the information to criminally investigate or prosecute any alcohol or drug abuse patient.[facility] HealthcareIn the event this information is protected by the Federal Confidentiality of Alcohol and Drug Abuse Patient Records regulations: The Federal rules restrict any use of the information to criminally investigate or prosecute any alcohol or drug abuse patient.[facility] HealthcareIn the event this information is protected by the Federal Confidentiality of Alcohol and Drug Abuse Patient Records regulations: The Federal rules restrict any use of the information to criminally investigate or prosecute any alcohol or drug abuse patient.[facility] HealthcareIn the event this information is protected by the Federal Confidentiality of Alcohol and Drug Abuse Patient Records regulations: The Federal rules restrict any use of the information to criminally investigate or prosecute any alcohol or drug abuse patient.[facility] HealthcareIn the event this information is protected by the Federal Confidentiality of Alcohol and Drug Abuse Patient Records regulations: The Federal rules restrict any use of the information to criminally investigate or prosecute any alcohol or drug abuse patient.[facility] HealthcareIn the event this information is protected by the Federal Confidentiality of Alcohol and Drug Abuse Patient Records regulations: The Federal rules restrict any use of the information to criminally investigate or prosecute any alcohol or drug abuse patient.[facility] HealthcareIn the event this information is protected by the Federal Confidentiality of Alcohol and Drug Abuse Patient Records regulations: The Federal rules restrict any use of the information to criminally investigate or prosecute any alcohol or drug abuse patient.[facility] HealthcareIn the event this information is protected by the Federal Confidentiality of Alcohol and Drug Abuse Patient Records regulations: The Federal rules restrict any use of the information to criminally investigate or prosecute any alcohol or drug abuse patient.[facility] HealthcareIn the event this information is protected by the Federal Confidentiality of Alcohol and Drug Abuse Patient Records regulations: The Federal rules restrict any use of the information to criminally investigate or prosecute any alcohol or drug abuse patient.[facility] HealthcareIn the event this information is protected by the Federal Confidentiality of Alcohol and Drug Abuse Patient Records regulations: The Federal rules restrict any use of the information to criminally investigate or prosecute any alcohol or drug abuse patient.[facility] HealthcareIn the event this information is protected by the Federal Confidentiality of Alcohol and Drug Abuse Patient Records regulations: The Federal rules restrict any use of the information to criminally investigate or prosecute any alcohol or drug abuse patient.[facility] HealthcareIn the event this information is protected by the Federal Confidentiality of Alcohol and Drug Abuse Patient Records regulations: The Federal rules restrict any use of the information to criminally investigate or prosecute any alcohol or drug abuse patient.[facility] HealthcareIn the event this information is protected by the Federal Confidentiality of Alcohol and Drug Abuse Patient Records regulations: The Federal rules restrict any use of the information to criminally investigate or prosecute any alcohol or drug abuse patient.[facility] HealthcareIn the event this information is protected by the Federal Confidentiality of Alcohol and Drug Abuse Patient Records regulations: The Federal rules restrict any use of the information to criminally investigate or prosecute any alcohol or drug abuse patient.[facility] HealthcareIn the event this information is protected by the Federal Confidentiality of Alcohol and Drug Abuse Patient Records regulations: The Federal rules restrict any use of the information to criminally investigate or prosecute any alcohol or drug abuse patient.[facility] HealthcareIn the event this information is protected by the Federal Confidentiality of Alcohol and Drug Abuse Patient Records regulations: The Federal rules restrict any use of the information to criminally investigate or prosecute any alcohol or drug abuse patient.[facility] HealthcareIn the event this information is protected by the Federal Confidentiality of Alcohol and Drug Abuse Patient Records regulations: The Federal rules restrict any use of the information to criminally investigate or prosecute any alcohol or drug abuse patient.[facility] HealthcareIn the event this information is protected by the Federal Confidentiality of Alcohol and Drug Abuse Patient Records regulations: The Federal rules restrict any use of the information to criminally investigate or prosecute any alcohol or drug abuse patient.[facility] HealthcareIn the event this information is protected by the Federal Confidentiality of Alcohol and Drug Abuse Patient Records regulations: The Federal rules restrict any use of the information to criminally investigate or prosecute any alcohol or drug abuse patient.[facility] HealthcareIn the event this information is protected by the Federal Confidentiality of Alcohol and Drug Abuse Patient Records regulations: The Federal rules restrict any use of the information to criminally investigate or prosecute any alcohol or drug abuse patient.[facility] HealthcareIn the event this information is protected by the Federal Confidentiality of Alcohol and Drug Abuse Patient Records regulations: The Federal rules restrict any use of the information to criminally investigate or prosecute any alcohol or drug abuse patient.[facility] HealthcareIn the event this information is protected by the Federal Confidentiality of Alcohol and Drug Abuse Patient Records regulations: The Federal rules restrict any use of the information to criminally investigate or prosecute any alcohol or drug abuse patient.[facility] HealthcareIn the event this information is protected by the Federal Confidentiality of Alcohol and Drug Abuse Patient Records regulations: The Federal rules restrict any use of the information to criminally investigate or prosecute any alcohol or drug abuse patient.[facility] HealthcareIn the event this information is protected by the Federal Confidentiality of Alcohol and Drug Abuse Patient Records regulations: The Federal rules restrict any use of the information to criminally investigate or prosecute any alcohol or drug abuse patient.[facility] HealthcareIn the event this information is protected by the Federal Confidentiality of Alcohol and Drug Abuse Patient Records regulations: The Federal rules restrict any use of the information to criminally investigate or prosecute any alcohol or drug abuse patient.[facility] HealthcareIn the event this information is protected by the Federal Confidentiality of Alcohol and Drug Abuse Patient Records regulations: The Federal rules restrict any use of the information to criminally investigate or prosecute any alcohol or drug abuse patient.[facility] HealthcareIn the event this information is protected by the Federal Confidentiality of Alcohol and Drug Abuse Patient Records regulations: The Federal rules restrict any use of the information to criminally investigate or prosecute any alcohol or drug abuse patient.[facility] FOR RECORDS PERTAINING TO PATIENTS WHO ARE OR HAVE BEEN ENROLLED IN A CHEMICAL DEPENDENCY/SUBSTANCEABUSE PROGRAM, SOME INFORMATION MAY BE OMITTED. This clinical summary was aggregated from multiple sources. Caution should be exercised in using it in the provision of clinical care. This summary normalizes information from multiple sources, and as a consequence, information in this document may materially change the coding, format and clinical context of patient data. In addition, data may be omitted in some cases. CLINICAL DECISIONS SHOULD BE BASED ON THE PRIMARY CLINICAL RECORDS. [facility] [employer] [facility]. provides no warranty or guarantee of the accuracy or completeness of information in this document.
== END | disposition home or self-care (01) ==
PROVIDERS: PCP Family Medicine; Referring Provider Surgery Trauma Surgery; Visit Provider Surgery Trauma Surgery
DX: Z48.812 Encounter for surgical aftercare following surgery on the circulatory system (principal)
CPT/HCPCS: 93978

== ENCOUNTER 2023-06-17 05:52 | Day surgery (SDC) | payer MEDICARE, OTHER, SELFPAY ==
[2023-06-17] VITALS (7 sets, daily range): BP systolic 84–114; BP diastolic 52–71; PULSE 44–65; RESP 16; TEMP 36.1–36.4; O2SAT 97–98; BMI 24.3
[2023-06-17] MEDS: Lactated Ringers 1,000 ML 15 ML IV (06:36)
--- NOTE | 2023-06-17 07:00 | EGD_PTH ---
PATIENT: ADARSH SORENSEN LOC: EN U#:[id number] AGE/SX: 82/M ROOM: RE06/17/[address]: Dr. Danny Mathew DO : 1940 BED: DIS: 06/17/2023 SPEC #: [id number] RECD: 06/17/23 10:09 STATUS: KENDRICK ACOSTA #: [id number] DENNIS: 06/17/23 07:[address]: Danny Mathew DEPT: SURGICAL PATHOLOGY RECD BY: Isi Perrin ENTERED: 06/17/23 11:43 SP TYPE: EGD BIOPSY BRITTNEY DR: Dr. Jared Cavazos MD Tissues: A - Esophagus, NOS B - Cecum, NOS Procedures: Special Stain Group II Surgery Specimen Level IV Alcian Blue/PAS (control) HEADER OPERATION: Colonoscopy with Botox injection, biopsy, EGD PRE-OP DIAGNOSIS: Constipation, diarrhea, flatulence, anal stenosis TISSUE SUBMITTED: A- Distal esophagus biopsy, B- Cecal polyp MICROSCOPIC DIAGNOSIS A. 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 No evidence of goblet cell metaplasia. See comment. B. Cecal polyp, biopsy: Polypoid fragments of benign colonic mucosa. See comment. /mr 06/18/23 COMMENT A. Alcian blue/PAS stain with matched control supports the above diagnosis. B. Neither hyperplastic nor adenomatous change is identified. Clinical correlation is suggested. MICROSCOPIC DESCRIPTION Slides are reviewed. GROSS DESCRIPTION A. Received in fixative is one container labeled with the patient's name and designated Distal esophagus biopsy. The specimen consists of two irregular fragments of light valerio soft tissue that in aggregate measure 0.8 x 0.5 x 0.1 cm. The specimen is totally submitted in one cassette. B. Received in fixative is one container labeled with the patient's name and designated Cecal cap. The specimen consists of one irregular fragment of light valerio soft tissue that measures 0.5 x 0.3 x 0.1 cm. The specimen is totally submitted in one cassette. AM/mr 06/17/2023 TC:3 CPT:65054v8,28786
--- NOTE | 2023-06-17 07:13 | HP.PCM_ITS ---
History and Physical Date of Admission: 06/17/23 ADARSH SORENSEN, is a 82 M who presents to the office today for follow up. *BGI established 9.14.22 with daily reflux starting just prior to breakfast with noted food triggers. Left sided abdominal pain/discomfort with gaseous noises. Constipation (no BM for 5 days) alternating with loose stools typically in morning, exacerbated by changes of environment. Reports colonic stricture; previously established with [facility] who cut the area approximately 5 years prior. EGD and colonoscopy 11.25.21 EGD moderate intrinsic stenosis, Savary 57F; irregular Zline; large hiatal hernia; gastritis. No path changes. H.Pylori neg Colonoscopy poor prep; anal canal stenosis; entire colon redundant; congested mucosa. No path changes OV 11 Noted improvement of swallowing. Referred to [facility] for fundoplication evaluation. Repeat colonoscopy [facility] established .03.08 recommending additional testing prior to scheduling/recommending fundoplication surgery. After further testing it was determined he is a good candidate for fundoplication surgery. Esophageal manometry 12.03.08 WNL Upper GI Swallow .07.06 elevation of right hemidiaphragm; abdominal aorta stent grafting visualized. Laparoscopic toupet fundoplication with intraop EGD 2.08.07 without complication GI outpatient workup: Colonoscopy 4.. anal stricture/intrinsic severe stenosis, Savary 51F. No specimens OV 5.2.23 Start Metamucil for constipation. Doxycycline for ongoing flatulence. OV 10.4.23 loose stools alternating with several days of no BM and nausea with dry heaving have been an ongoing for a while. Did not start Metamucil as historically it caused constipation. Does not recall taking doxycycline, if he did it was not memorable. OV 4.17.24 pt reports that he is experiencing similar symptoms as he had at his previous visit. Pt reports that he is having constant left sided pain that feels like an ache. States that eating sometimes worsen the pain. Pt states that he has a bowel movement every 1 - 2 days, and that is has been diarrhea for a few weeks now. Pt states that he has some trouble swallowing rough or dry food and feels that his esophagus has narrowed since his hiatal hernia surgery. ROS Const Constitutional: Positive for fatigue ENT ENT: No difficulty swallowing Gastro GI: Positive for abdominal pain, bloating, change in bowel habits, constipation, diarrhea, heartburn, excessive flatus and nausea/dyspepsia; No belching, change in stool character, coffee ground emesis, cramping, difficulty swallowing, feeling full early, incontinent of stools, Vomiting blood/hematemesis, Blood in stool, loose stools, Black,tarry stools, pain with swallowing, vomiting or other Musc Musculoskeletal: Positive for back pain, muscle cramps, numbness, stiffness, tingling, Arthritis, sciatica and leg pain at night; No joint pain Skin Skin: No yellowing of the eye or itchy eyes Neuro Neurology: Positive for numbness, tingling and Increased tone in limbs Psych Psychiatric: No anxiety and No depression Endo Endocrine: Positive for fatigue Aller/Imm Allergy/Immunologic: No itchy eyes Juma/Lymp Hematologic/Lymphatic: Positive for easy bruising; No easy bleeding Exam Const General: cooperative, healthy appearing and comfortable Nutritional Appearance: average body habitus Orientation: alert, awake and oriented x3 Quality Reporting Tobacco Screening ([facility] 138) Smoking Status: Unknown if ever smoked Assessment and Plan Assessment and Plan (1) Alternating constipation and diarrhea: Status: Chronic Plan: Try Citrucel instead of Metamucil to bulk up the soft stools (2) Flatulence/gas pain/belching: Status: Chronic Plan: Treat with doxycycline 100mg x 30 days (3) Anal stenosis: Status: Chronic Plan: Patient is going to the bathroom a lot better. I think he needs Botox at this time and/ or another dilation. I have examined the patient and the H&P has been reviewed. There are no clinical changes since date of exam.
[2023-06-17] MEDS: 0.9% Normal Saline (Pres. free 10 ML Vial (07:57)
[2023-06-17] MEDS: 0.9% Saline Lock 10 ML Syringe IV (07:57)
[2023-06-17] MEDS: Botulinum Toxin A 100 Units Vial IJ (07:57)
--- NOTE | 2023-06-17 08:26 | OP.CCLET_ITS ---
06/17/2023 Jared Cavazos MD Re : Upper GI endoscopy procedure for Christiano Campbell Dear Dr. Cavazos This procedure was performed on June. My impressions and recommendations are as follows: Impressions : - Z-line irregular, 40 cm from the incisors. Biopsied. - Small hiatal hernia. - No gross lesions in the entire stomach. - No gross lesions in the duodenal bulb. Recommendations : - Discharge patient to home. - Resume previous diet. - Continue present medications. - Await pathology results. My findings are described in the full procedure note, which is enclosed. If I can be of further assistance, please feel free to contact me at . Sincerely, Danny Mathew, 06/17/2023 8:25:53 AM This report has been signed electronically.
--- NOTE | 2023-06-17 08:26 | OP.EGD_ITS ---
Patient Name: Christiano Campbell Procedure Date: 06/17/2023 7:16 AM Date of : 1940 Age: 82 Procedure: Upper GI endoscopy Indications: Heartburn Providers: Danny Mathew DO Referring MD: Jared Cavazos MD Medicines: Monitored Anesthesia Care Patient Profile: This is an 82 year old male. Refer to note in patient chart for documentation of history and physical. Patient has symptoms of chronic heartburn. Complications: No immediate complications. Procedure: Pre-Anesthesia Assessment: - Prior to the procedure, a History and Physical was performed, and patient medications and allergies were reviewed. The risks and benefits of the procedure and the sedation options and risks were discussed with the patient. All questions were answered and informed consent was obtained. Patient identification and proposed procedure were verified by the physician. Mental Status Examination: normal. Respiratory Examination: clear to auscultation. CV Examination: normal. Prophylactic Antibiotics: The patient does not require prophylactic antibiotics. Prior Anticoagulants: The patient has taken no anticoagulant or antiplatelet agents. ASA Grade Assessment: III - A patient with severe systemic disease. After reviewing the risks and benefits, the patient was deemed in satisfactory condition to undergo the procedure. The anesthesia plan was to use monitored anesthesia care (MAC). Immediately prior to administration of medications, the patient was re-assessed for adequacy to receive sedatives. The heart rate, respiratory rate, oxygen saturations, blood pressure, adequacy of pulmonary ventilation, and response to care were monitored throughout the procedure. The physical status of the patient was re-assessed after the procedure. After obtaining informed consent, the endoscope was passed under direct vision. Throughout the procedure, the patient's blood pressure, pulse, and oxygen saturations were monitored continuously. The Colonoscope was introduced through the mouth, and advanced to the second part of duodenum. The upper GI endoscopy was accomplished without difficulty. The patient tolerated the procedure well. Scope In: 7:52:53 AM Scope Out: 7:55:17 AM Total Procedure Duration Time 0 hours 2 minutes 24 seconds Findings: The Z-line was irregular and was found 40 cm from the incisors. Biopsies were taken with a cold forceps for histology. Verification of patient identification for the specimen was done. Estimated blood loss was minimal. A small hiatal hernia was present. No gross lesions were noted in the entire examined stomach. No gross lesions were noted in the duodenal bulb. Impression: - Z-line irregular, 40 cm from the incisors. Biopsied. - Small hiatal hernia. - No gross lesions in the entire stomach. - No gross lesions in the duodenal bulb. Recommendation: - Discharge patient to home. - Resume previous diet. - Continue present medications. - Await pathology results. Procedure Code(s): --- Professional --- 40099, Esophagogastroduodenoscopy, flexible, transoral; with biopsy, single or multiple CPT copyright 2021 [employer]. All rights reserved. The codes documented in this report are preliminary and upon sulfate drier machine operator review may be revised to meet current compliance requirements. Danny Mathew DO 06/17/2023 8:25:53 AM This report has been signed electronically. Number of Addenda: 0 Note Initiated On: 06/17/2023 7:16 AM
--- NOTE | 2023-06-17 08:30 | OP.CCLET_ITS ---
06/17/2023 Jared Cavazos MD Re : Colonoscopy procedure for Christiano Campbell Dear Dr. Cavazos This procedure was performed on June. My impressions and recommendations are as follows: Impressions : - Anal fissure found on perianal exam. - Non-bleeding internal hemorrhoids. Banded. - Anal fissure. Injected with botulinum toxin. - Stricture at the anus. Dilated. - Congested mucosa in the cecum. Biopsied. - The examination was otherwise normal on direct and retroflexion views. - Diverticulosis in the recto-sigmoid colon. Recommendations : - Discharge patient to home. - Resume previous diet. - Continue present medications. - Await pathology results. - Repeat colonoscopy. My findings are described in the full procedure note, which is enclosed. If I can be of further assistance, please feel free to contact me at . Sincerely, Danny Mathew, 06/17/2023 8:30:12 AM This report has been signed electronically.
--- NOTE | 2023-06-17 08:30 | OP.COLON_ITS ---
Patient Name: Christiano Campbell Procedure Date: 06/17/2023 7:55 AM Date of : 1940 Age: 82 Procedure: Colonoscopy Indications: Screening for colorectal malignant neoplasm Providers: Danny Mathew DO Referring MD: Jared Cavazos MD Medicines: Monitored Anesthesia Care Patient Profile: This is an 82 year old male. Refer to note in patient chart for documentation of history and physical. Patient has symptoms of chronic heartburn. Last Colonoscopy: date unknown. Unable to locate last colonoscopy report. Complications: No immediate complications. Procedure: Pre-Anesthesia Assessment: - Prior to the procedure, a History and Physical was performed, and patient medications and allergies were reviewed. The risks and benefits of the procedure and the sedation options and risks were discussed with the patient. All questions were answered and informed consent was obtained. Patient identification and proposed procedure were verified by the physician. Mental Status Examination: normal. Respiratory Examination: clear to auscultation. CV Examination: normal. Prophylactic Antibiotics: The patient does not require prophylactic antibiotics. Prior Anticoagulants: The patient has taken no anticoagulant or antiplatelet agents. ASA Grade Assessment: III - A patient with severe systemic disease. After reviewing the risks and benefits, the patient was deemed in satisfactory condition to undergo the procedure. The anesthesia plan was to use monitored anesthesia care (MAC). Immediately prior to administration of medications, the patient was re-assessed for adequacy to receive sedatives. The heart rate, respiratory rate, oxygen saturations, blood pressure, adequacy of pulmonary ventilation, and response to care were monitored throughout the procedure. The physical status of the patient was re-assessed after the procedure. After I obtained informed consent, the scope was passed under direct vision. Throughout the procedure, the patient's blood pressure, pulse, and oxygen saturations were monitored continuously. The adult colonoscope was introduced through the anus and advanced to the cecum, identified by appendiceal orifice and ileocecal valve. The colonoscopy was performed without difficulty. The patient tolerated the procedure well. The quality of the bowel preparation was adequate. The ileocecal valve, appendiceal orifice, and rectum were photographed. Scope In: 7:57:26 AM Scope Withdrawal Time 0 hours 18 minutes 30 seconds Scope Out: 8:19:19 AM Total Procedure Duration Time 0 hours 21 minutes 53 seconds Findings: An anal fissure was found on perianal exam. Non-bleeding internal hemorrhoids were found during retroflexion. The hemorrhoids were moderate and Grade II (internal hemorrhoids that prolapse but reduce spontaneously). The endoscope was withdrawn. A hemorrhoid was isolated with anoscopy. The ShortShot ligator was positioned over the hemorrhoid at the left lateral position. Suction was applied and one rubber band was placed over the hemorrhoid. This was checked to make certain that the muscularis was free of the band. Post-banding digital rectal exam showed band in good position. There were no complications. A 5 mm anal fissure was found in the anal canal. The internal anal sphincter was successfully injected with 100 units botulinum toxin. A benign-appearing, intrinsic moderate stenosis was found at the anus and was traversed. A guidewire was placed and the scope was withdrawn. Dilation was performed with a Savary dilator with no resistance at 51 Fr. The dilation site was examined and showed moderate improvement in luminal narrowing. An area of mildly congested mucosa was found in the cecum. Biopsies were taken with a cold forceps for histology. Verification of patient identification for the specimen was done. Estimated blood loss was minimal. The exam was otherwise without abnormality on direct and retroflexion views. Two small-mouthed diverticula were found in the recto-sigmoid colon. Impression: - Anal fissure found on perianal exam. - Non-bleeding internal hemorrhoids. Banded. - Anal fissure. Injected with botulinum toxin. - Stricture at the anus. Dilated. - Congested mucosa in the cecum. Biopsied. - The examination was otherwise normal on direct and retroflexion views. - Diverticulosis in the recto-sigmoid colon. Recommendation: - Discharge patient to home. - Resume previous diet. - Continue present medications. - Await pathology results. - Repeat colonoscopy. Procedure Code(s): --- Professional --- 84436, Chemodenervation of internal anal sphincter 13074, Colonoscopy, flexible; with biopsy, single or multiple 77651, Hemorrhoidectomy, internal, by rubber band ligation(s) 11597, Unlisted procedure, anus CPT copyright 2021 [employer]. All rights reserved. The codes documented in this report are preliminary and upon manager safe review may be revised to meet current compliance requirements. Danny Mathew DO 06/17/2023 8:30:12 AM This report has been signed electronically. Number of Addenda: 0 Note Initiated On: 06/17/2023 7:55 AM
== END 2023-06-17 09:17 | disposition home or self-care (01) ==
LOC: EN 05:52 → AC 05:53
PROVIDERS: PCP Family Medicine; Referring Provider Family Medicine; Visit Provider Internal Medicine Gastroenterology
PROC: 0DJD8ZZ Inspection of Lower Intestinal Tract, Via Natural or Artificial Opening Endoscopic (ICD-10-PCS; CPT 45378; principal; 2023-06-17 06:55)
DX: R19.7 Diarrhea, unspecified (principal); K64.1 Second degree hemorrhoids; K60.2 Anal fissure, unspecified; K57.90 Diverticulosis of intestine, part unspecified, without perforation or abscess without bleeding; K63.89 Other specified diseases of intestine; K59.00 Constipation, unspecified; R14.1 Gas pain; R14.3 Flatulence; R14.2 Eructation; K62.4 Stenosis of anus and rectum; K22.89 Other specified disease of esophagus; K29.50 Unspecified chronic gastritis without bleeding
CPT/HCPCS: 46221; 43239; 45386; 46505; 45380; 88305; 88313; J7120; A4216; J0585; J3490

== ENCOUNTER 2023-06-20 16:42 | Emergency (ER) | payer MEDICARE, OTHER, SELFPAY ==
[2023-06-20 16:42] VITALS: BP 131/72; PULSE 61; RESP 18; TEMP 36.1; O2SAT 98; BMI 24.8
--- NOTE | 2023-06-20 16:46 | EDS_ITS ---
HPI History of Present Illness HPI Narrative: Patient presents with redness and swelling to his left great toe that has been getting worse over the past 2 to 3 days. Patient states that it has gradually gotten worse. Patient denies any fevers or chills. Patient denies any trauma or injury. Patient describes his pain as sharp. Patient states it is worse with ambulation and better with rest. Patient admits to some tingling in his left great toe. Patient denies any weakness. Chief Complaint: Lower Extremity Injury Informant: patient Onset/Context/Timing Onset: Days (2-3) Context: Gradual Onset Timing: Continuous Quality of Pain: Sharp Location: Left great toe Worsened by: Ambulation Relieved by: Rest Associated Symptoms Associated Symptoms: Positive for Parasthesia; Negative for Weakness or Loss of Funtion PFSH [facility] Medical History AAA (abdominal aortic aneurysm) without rupture Anemia Arthritis Back pain Basal cell carcinoma (BCC) in situ of skin Blood disorder Cancer Cardiology follow-up encounter Difficulty swallowing Fatigue Former smoker Gout High cholesterol History of echocardiogram History of hiatal hernia History of IBS History of stress test Hyperlipidemia Intractable low back pain Leg cramps Lumbosacral strain Lymphoma Neuropathy associated with anti-MAG antibody Palpitations Pure hypercholesterolemia Shortness of breath Sinus bradycardia Wears glasses Home Medications omeprazole 20 mg capsule,delayed release 40 mg PO DAILY PRN ACID REFLUX 01/15/22 [History Last Taken 08/30/22] rosuvastatin 20 mg tablet 20 mg PO QHS CHOLESTEROL 08/31/22 [History Last Taken 08/29/22] doxycycline hyclate 100 mg capsule 100 mg PO BID #60 caps 06/02/23 [Rx Last Taken Unknown] cephalexin 500 mg capsule 500 mg PO Q6 #40 CAPSULES 06/20/23 [Rx Last Taken Unknown] Allergy/AdvReac Type Severity Reaction Status Date / Time No Known Allergies Allergy Verified 06/20/23 16:44 Family History Father Colon cancer Mother Alzheimers disease Brother Multiple sclerosis Surgical History aorto bi-common iliac stent graft (~11/2014) History of AAA (abdominal aortic aneurysm) repair History of cardiac catheterization History of cholecystectomy History of colonoscopy (~11/2021) History of esophagogastroduodenoscopy (EGD) (~11/2021) Status post laparoscopic Luis fundoplication Social History Smoking Status: Former smoker how long ago did patient quit smokin alcohol intake: current alcohol intake frequency: a few times a week Alcohol type: wine and hard liquor substance use type: does not use caffeine: Yes Type: coffee what type of physical activity do you participate in: none seatbelt use: always do you feel safe at home: Yes ROS ROS ED Constitutional Constitutional ED: Denies chills or fever(s) Eyes Eyes: Denies blurry vision or change in vision ENT ENT ED: Denies rhinorrhea or sore throat Cardiovascular Cardiovascular: Denies chest pain or palpitations Respiratory/Chest Respiratory/Chest: Denies cough or dyspnea Gastrointestinal Gastrointestinal: Denies nausea or vomiting Genitourinary Genitourinary ED: Denies dysuria or hematuria Musculoskeletal Musculoskeletal: Denies back pain or neck pain Integumentary Denies abscess or rash Neurologic Neurologic: Denies headache(s) or weakness Allergic/Immunologic Allergic/Immunologic ED: Denies mouth swelling or urticaria EXAM Physical Exam Const Vital Signs: 06/20/23 16:42 Temperature 97 F L Temperature Source Temporal Pulse Rate 61 Respiratory Rate 18 Blood Pressure 131/72 H Blood Pressure Mean 91 Pulse Ox 98 Oxygen Delivery Method Room Air Positive well nourished and well developed General Appearance ED: well developed and NAD HEENT Reports moist mucous membranes Neck full ROM and supple Extremity Extremity Narrative: There is tenderness and mild erythema over the dorsal aspect of the distal phalanx of the left great toe. There is no fluctuance. There is no evidence of any abscess. There is no deformity noted. Range of motion was slightly limited in all motions of the IP joint of the left great toe secondary to pain. Sensation was intact to light touch in all digits. Capillary refills less than 2 seconds in all digits. Pedal pulses are equal bilaterally. Neuro oriented x3, CN's II-XII intact bilaterally, moves all extremities and no sensory deficits noted Sensorium / Orientation: alert Motor Exam: strength 5/5 throughout MDM MDM MDM Narrative Medical decision making narrative: Patient was advised that this appears to be a cellulitis of his left great toe. Patient was given a prescription for Keflex. Patient was given his first dose here. Patient was instructed to keep his leg elevated. Patient was instructed to follow-up with his primary care physician in 5 to 7 days. Patient understood and was agreeable with the plan. All questions were answered. Discharge Plan Triage Chief Complaint: Lower Extremity Injury ED Provider: Audi Camp Dx/Rx/DC Orders Clinical Impression: Cellulitis of great toe of left foot Instructions: ED Cellulitis Prescriptions: New cephalexin [cephalexin] 500 mg capsule 500 mg PO Q6 Qty: 40 0RF No Action omeprazole 20 mg capsule,delayed release(DR/EC) 40 mg PO DAILY PRN (Reason: ACID REFLUX) doxycycline hyclate 100 mg capsule 100 mg PO BID Qty: 60 1RF rosuvastatin 20 mg tablet 20 mg PO QHS Primary Care Provider: Jared Cavazos Referrals: Jared Cavazos MD [Primary Care Provider] - 5-7 Days Disposition Disposition: Home, Self Care
[2023-06-20] MEDS: Cephalexin 500 MG Capsule PO (17:21)
[2023-06-20 17:22] VITALS: BP 127/63; PULSE 72; RESP 15; TEMP 36.6; O2SAT 100
== END 2023-06-20 17:23 | disposition home or self-care (01) ==
PROVIDERS: Emergency Provider Emergency Medicine; PCP Family Medicine; Visit Provider Emergency Medicine
DX: L03.116 Cellulitis of left lower limb (principal); Z87.891 Personal history of nicotine dependence; Z85.828 Personal history of other malignant neoplasm of skin; E78.00 Pure hypercholesterolemia, unspecified; Z79.899 Other long term (current) drug therapy; Z90.49 Acquired absence of other specified parts of digestive tract
CPT/HCPCS: 99282

== ENCOUNTER 2023-10-17 08:16 | Emergency (ER) | payer MEDICARE, OTHER, SELFPAY ==
[2023-10-17 08:17] VITALS: BP 116/77; PULSE 62; RESP 16; TEMP 35.9; O2SAT 97; BMI 23.1
--- NOTE | 2023-10-17 08:24 | EX.ED.DYSGE1 ---
HPI History of Present Illness Chief Complaint: Constipation Informant: patient Onset/Context/Timing Onset: Month(s) (1) Context: Gradual Onset Timing: Continuous Quality: Sharp Location: Upper abdomen Worsened by: Nothing Relieved by: Nothing Narrative Narrative: Patient presents with constipation that has been constant for the past month. Patient states he has only had about 3-4 bowel movements in the last month. Patient states his last bowel movement was 1 week ago. Patient states he tried an enema at home with no improvement. Patient states he contacted Dr. Mathew's office and the nurse there told him to come to the emergency department. Patient admits to some occasional sharp pains over his upper abdomen. Patient states he is passing flatus. Patient states nothing makes his symptoms better nothing makes them worse. PFSH [facility] Medical History AAA (abdominal aortic aneurysm) without rupture Anemia Arthritis Back pain Basal cell carcinoma (BCC) in situ of skin Blood disorder Cancer Cardiology follow-up encounter Difficulty swallowing Fatigue Former smoker Gout High cholesterol History of echocardiogram History of hiatal hernia History of IBS History of stress test Hyperlipidemia Intractable low back pain Leg cramps Lumbosacral strain Lymphoma Neuropathy associated with anti-MAG antibody Palpitations Pure hypercholesterolemia Shortness of breath Sinus bradycardia Wears glasses Home Medications ?Medication ?Instructions ?Recorded ?Last Taken ?Type omeprazole 20 mg capsule,delayed 40 mg PO DAILY PRN ACID REFLUX 01/15/22 08/30/22 History release rosuvastatin 20 mg tablet 20 mg PO QHS CHOLESTEROL 08/31/22 08/29/22 History doxycycline hyclate 100 mg capsule 100 mg PO BID #60 caps 06/02/23 Unknown Rx cephalexin 500 mg capsule 500 mg PO Q6 #40 CAPSULES 06/20/23 Unknown Rx Allergy/AdvReac Type Severity Reaction Status Date / Time No Known Allergies Allergy Verified 10/17/23 08:30 Family History Father Colon cancer Mother Alzheimers disease Brother Multiple sclerosis Surgical History aorto bi-common iliac stent graft (~11/2014) History of AAA (abdominal aortic aneurysm) repair History of cardiac catheterization History of cholecystectomy History of colonoscopy (~11/2021) History of esophagogastroduodenoscopy (EGD) (~11/2021) Status post laparoscopic Luis fundoplication Social History Smoking Status: Former smoker how long ago did patient quit smokin alcohol intake: current alcohol intake frequency: a few times a week Alcohol type: wine and hard liquor substance use type: does not use caffeine: Yes Type: coffee what type of physical activity do you participate in: none seatbelt use: always do you feel safe at home: Yes EXAM Physical Exam Const Vital Signs: 10/17/23 08:17 10/17/23 10:16 10/17/23 12:00 Temperature 96.6 F L Temperature Source Temporal Pulse Rate 62 71 82 Respiratory Rate 16 14 16 Blood Pressure 116/77 112/81 H 115/83 H Blood Pressure Mean 90 91 93 Pulse Ox 97 98 98 Oxygen Delivery Method Room Air Room Air Room Air MDM MDM MDM Narrative Medical decision making narrative: Differential diagnosis includes bowel obstruction, constipation, electrolyte abnormality, dehydration, and urinary tract infection. CT scan of the abdomen pelvis will be obtained to assess for bowel obstruction and constipation. CBC will be obtained to assess for leukocytosis and anemia. Comprehensive metabolic profile will be obtained to assess for hepatic function, renal function, and electrolyte abnormality. Urinalysis will be obtained to assess for urinary tract infection and hematuria. Lab Data Attestation: I reviewed the patient's lab results. Lab results narrative: CBC was reviewed. White blood cell count was slightly low at 4.2. There is a mild anemia with a hemoglobin of 12.9 and hematocrit 37.1. Comprehensive metabolic profile was reviewed and was within normal limits. Urinalysis was reviewed. There is no evidence of urinary tract infection or hematuria. Labs: Laboratory Results - last 24 hr 10/17/23 10/17/23 09:15 10:20 WBC 4.2 L RBC 4.05 L Hgb 12.9 L Hct 37.1 L MCV 91.6 MCH 31.9 MCHC 34.8 RDW Std Deviation 43.8 RDW Coeff of Alvarez 12.9 Plt Count 145 L MPV 10.4 Immature Gran % (Auto) 0.200 Neut % (Auto) 72.7 H Lymph % (Auto) 12.7 L Burleson % (Auto) 10.3 H Eos % (Auto) 3.4 Baso % (Auto) 0.7 Absolute Neuts (auto) 3.0 Absolute Lymphs (auto) 0.53 L Nucleated RBC % 0 Sodium 139 Potassium 4.0 Chloride 107 Carbon Dioxide 28.0 Anion Gap 4 L BUN 19 H Creatinine 1.07 Estim Creat Clear Calc 56.69 Est GFR (MDRD) Af Amer 85 Est GFR (MDRD) Non-Af 70 BUN/Creatinine Ratio 17.8 Glucose 99 Calcium 8.9 Total Bilirubin 1.20 H AST 16 ALT 17 Alkaline Phosphatase 90 Total Protein 6.4 Albumin 3.3 Globulin 3.1 Albumin/Globulin Ratio 1.1 Urine Color Yellow Urine Clarity Clear Urine pH 6.5 Ur Specific Spencer 1.015 Urine Protein Negative Urine Glucose (UA) Normal Urine Ketones Negative Urine Occult Blood Negative Urine Nitrite Negative Urine Bilirubin Negative Urine Urobilinogen 4 H Ur Leukocyte Esterase Negative Urine RBC 0 SEEN Urine WBC 0 SEEN Ur Squamous Epith Cells 0 SEEN Urine Bacteria 0 SEEN Urine Mucus 0 SEEN Radiography Diagnostic Testing: Clinical Impression(s) from Imaging Studies Abdomen/Pelvis CT 10/17/23 09:00 IMPRESSION: 1. Moderate to large amount of colorectal stool without evidence of bowel obstruction. 2. Status post aortobiiliac stent grafting. Atherosclerosis. No significant aneurysm. 3. Multiple low-attenuation foci within the spleen are nonspecific, too small to further characterize, although stable over the course of multiple years. No splenomegaly. ACR White Paper guidelines (Helnadege, et al. JACR 2013; 10(11):833-9) suggest no follow-up is necessary. 4. Prostatomegaly. Electronically Signed: Flavio Mendez DO at 10:46 EDT , CT scan of the abdomen pelvis was obtained. There is a moderate to large amount of stool throughout the colon. There is no evidence of bowel obstruction noted. There is no other acute process noted. This was interpreted by the radiologist and was also independently reviewed by myself. Treatment and Re-Evaluation :: Patient was given a soapsuds enema here. Patient had some improvement with this. Patient was instructed to use [id number] MiraLAX to help with his constipation. Patient was instructed to follow-up with his primary care physician in 3 to 5 days. Patient was instructed to return if worse in any way. Patient understood and was agreeable with the plan. All questions were answered. Discharge Plan Triage Chief Complaint: Constipation ED Provider: Audi Camp Dx/Rx/DC Orders Clinical Impression: Constipation, Abdominal pain Instructions: ED Constipation (Adult) Prescriptions: No Action omeprazole 20 mg capsule,delayed release(DR/EC) 40 mg PO DAILY PRN (Reason: ACID REFLUX) doxycycline hyclate 100 mg capsule 100 mg PO BID Qty: 60 1RF rosuvastatin 20 mg tablet 20 mg PO QHS cephalexin [cephalexin] 500 mg capsule 500 mg PO Q6 Qty: 40 0RF Primary Care Provider: Jared Cavazos Referrals: Jared Cavazos MD [Primary Care Provider] - 3-5 Days Print Language: Slovak Disposition Disposition: Home, Self Care
--- NOTE | 2023-10-17 09:00 | CT_ITS ---
EXAM: CT ABDOMEN AND PELVIS WITH INTRAVENOUS CONTRAST CLINICAL INDICATION: Abdominal pain TECHNIQUE: Helically acquired images were obtained of the abdomen and pelvis with intravenous contrast. This CT exam was performed using one or more of the following dose reduction techniques: automated exposure control, adjustment of the mA and/or kV according to patient size, and/or use of iterative reconstruction technique. CONTRAST: IV 100mL [id number] COMPARISON: CT abdomen and pelvis, 10/25/2014 and CTA abdomen and pelvis, 03/06/2015. FINDINGS: LOWER THORAX: Coronary artery calcifications and/or stents. Lung bases are clear. No cardiomegaly. No significant pericardial effusion. ABDOMEN: LIVER: No significant abnormality. Homogeneous. No focal mass. GALLBLADDER AND BILE DUCTS: Status post cholecystectomy. No intra- or extrahepatic biliary ductal dilation. PANCREAS: No significant abnormality. No focal cystic or solid mass. SPLEEN: Multiple low-attenuation foci within the spleen are nonspecific, too small to further characterize, although stable over the course of multiple years. No splenomegaly. ADRENALS: No significant abnormality. No nodules. KIDNEYS AND URETERS: Right lower pole renal cyst is present for which no follow-up is indicated. No hydronephrosis. STOMACH AND BOWEL: Moderate to large amount of colorectal stool without evidence of bowel obstruction. No focal inflammatory change. PELVIS: APPENDIX: A normal appendix is identified in the right lower quadrant. BLADDER: No significant abnormality. REPRODUCTIVE: Prostatomegaly. ABDOMEN and PELVIS: INTRAPERITONEAL SPACE: No significant abnormality. No ascites or other fluid collection. No free air. BONES/JOINTS: Degenerative changes of the axial and appendicular skeleton. No suspicious lytic or blastic abnormality. SOFT TISSUES: Bilateral fat-containing inguinal hernias. VASCULATURE: Status post aortobiiliac stent grafting. Atherosclerosis. No significant aneurysm. LYMPH NODES: No significant abnormality. No enlarged lymph nodes. CT/Abdomen/Pelvis W IV Cont ONLY IMPRESSION: 1. Moderate to large amount of colorectal stool without evidence of bowel obstruction. 2. Status post aortobiiliac stent grafting. Atherosclerosis. No significant aneurysm. 3. Multiple low-attenuation foci within the spleen are nonspecific, too small to further characterize, although stable over the course of multiple years. No splenomegaly. ACR White Paper guidelines (Ang, et al. JACR 2013; 10(11):833-9) suggest no follow-up is necessary. 4. Prostatomegaly. Electronically Signed: Flavio Mendez DO at 10:46 EDT ,
[2023-10-17 09:25] LABS: Absolute Lymphocyte Count 0.53 X10^3/uL (0.83-4.51); Basophil# 0.03 X10^3/uL; Basophil% 0.7 % (0-1); Eosinophil# 0.14 X10^3/uL; Eosinophils% 3.4 % (0-5); Hematocrit 37.1 % (40-54); Hemoglobin 12.9 g/dL (13.0-16.5); Lymphocyte # 0.53 X10^3/ul (0.83-4.51); Lymphocyte % 12.7 % (19-41); Mean Corp Hgb Conc 34.8 g/dL (32-36); Mean Corpuscular Hgb 31.9 pg (27.0-32.0); Mean Corpuscular Volume 91.6 fL (80-94); Mean Platelet Vol. 10.4 fl (6.2-12.0); Monocyte# 0.43 X10^3/uL; Monocyte% 10.3 % (0-10); NRBC Flagged by Analyzer 0 % (0-5); Neutrophil # 3.02 X10^3/uL (2.7-7.7); Neutrophil % 72.7 % (47-70); POSITIVE DIFFERENTIAL YES; Platelet Count 145 K/mm3 (150-450); RBC Distribution Width CV 12.9 % (11.6-14.6); RBC Distribution Width SD 43.8 fl (35.1-43.9); Red Blood Count 4.05 M/mm3 (4.6-6.2); White Blood Count 4.2 K/mm3 (4.4-11.0)
[2023-10-17] MEDS: 0.9% Normal Saline (1000mL) 1,000 ML 1000 ML IV (09:44)
[2023-10-17 09:48] LABS: ALB/GLOB Ratio 1.1 RATIO (0.9-2.4); AST(SGOT) 16 U/L (15-37); Alanine Aminotransfer ALT/SGPT 17 U/L (16-61); Albumin, Serum 3.3 g/dL (3.2-5.0); Alkaline Phosphatase 90 U/L (45-117); Anion Gap 4 (5-15); BUN 19 mg/dL (7-18); BUN/Creat Ratio 17.8 RATIO (10-20); Calcium,Total 8.9 mg/dL (8.5-10.1); Chloride 107 mmol/L (98-107); Creatinine, Serum 1.07 mg/dL (0.70-1.30); EST Glomerular Filtration Rate 70 mL/min (>60); Est Glom Filt Rate - Afr Amer 85 mL/min (>60); Estimated Creatinine Clearance 56.69 ml/min; Globulin 3.1 g/dL (2.2-4.2); Glucose 99 mg/dL (74-106); Protein, Total 6.4 g/dL (6.4-8.2); Sodium Level 139 mmol/L (136-145)
[2023-10-17 10:16] VITALS: BP 112/81; PULSE 71; RESP 14; O2SAT 98
[2023-10-17 10:27] LABS: Bacteria 0 SEEN /hpf (None Seen); Mucous, Urine 0 SEEN /hpf (<or=2+); Red Blood Cells-Urine 0 SEEN /hpf (0-5); Squamous Epithelial Cells - UA 0 SEEN /hpf (0-5); White Blood Cells 0 SEEN /hpf (0-5)
[2023-10-17 10:28] LABS: Color, Urine Yellow (Yellow); Glucose, Dipstick Normal (Normal); Ketone-Dipstick Negative (Negative); Leukocyte Esterase-Dipstick Negative /ul (Negative); Nitrite-Dipstick Negative (Negative); Occult Blood-Urine Negative /ul (Negative); Protein-Dipstick Negative (Negative); Specific Gravity, Urine 1.015 (1.002-1.030); Urine Bilirubin Dipstick Negative (Negative); Urine Clarity Clear (Clear); Urine Urobilinogen 4 mg/dl (Normal); Urine pH 6.5 (5.0 - 8.0)
[2023-10-17 12:00] VITALS: BP 115/83; PULSE 82; RESP 16; O2SAT 98
[2023-10-17 14:00] VITALS: BP 128/78; PULSE 64; RESP 16; O2SAT 98
== END 2023-10-17 14:36 | disposition home or self-care (01) ==
PROVIDERS: Emergency Provider Emergency Medicine; PCP Family Medicine; Visit Provider Emergency Medicine
DX: K59.00 Constipation, unspecified (principal); E78.00 Pure hypercholesterolemia, unspecified; Z87.891 Personal history of nicotine dependence; R10.10 Upper abdominal pain, unspecified; Z85.828 Personal history of other malignant neoplasm of skin; Z79.899 Other long term (current) drug therapy; Z90.49 Acquired absence of other specified parts of digestive tract
CPT/HCPCS: 74177; 80053; 81001; 85025; 99285; J7030; Q9967; A4216

== ENCOUNTER → 2024-03-22 | Outpatient (CLI) | payer MEDICARE, OTHER, SELFPAY ==
--- NOTE | 2024-03-22 07:49 | ART_ITS ---
Reason For Study: S/P EVAR Procedure A bilateral lower extremity continuous wave Doppler with analog waveform analysis and ankle brachial indexes. Left Segmental Pressures Left brachial= 114mmHg. Left posterior tibial artery = 136mmHg. Left dorsalis pedis artery = 135mmHg. Left digit = 124 mmHg. The left dorsalis pedis waveforms are triphasic. The left posterior tibial artery waveforms are triphasic. Right Segmental Pressures Right brachial= 125mmHg. Right posterior tibial artery = 114mmHg. Right dorsalis pedis artery = 148mmHg. Right digit = 112 mmHg. The right dorsalis pedis waveforms are triphasic. The right posterior tibial artery waveforms are triphasic. Indices The right ankle brachial index by the dorsalis pedis is 1.18. The right ankle brachial index by the posterior tibial artery is 0.91. The right digital-brachial index is 0.90. The left ankle brachial index by the dorsalis pedis is 1.08. The left ankle brachial index by the posterior tibial artery is 1.09. The left digital-brachial index is 0.99. VL/Ankle Brachial Index Interpretation Summary Right CHARLES 1.18, normal. TBI and Doppler/PVR waveforms of the right ankle normal at rest. Left CHARLES 1.09, normal. TBI and Doppler/PVR waveforms of the left ankle normal a t rest. Ordering Physician: Kristina Giordano Referring Physician: Jared Cavazos MD Performed By: Collette Alston RVT and Student
--- NOTE | 2024-03-22 07:49 | CDU_ITS ---
Reason For Study: Stenosis Rt. Velocities/BP Lt. Velocities/BP Prox CCA 108.8/5.0 cm/sec. Prox CCA 99.8/4.1 cm/sec. Mid CCA 112.0/11.5 cm/sec. Mid CCA 99.8/15.1 cm/sec. Dist CCA 75.1/12.4 cm/sec. Dist CCA 94.9/15.1 cm/sec. Prox ICA 67.4/11.6 cm/sec. Prox ICA 86.4/9.7 cm/sec. Mid ICA 85.1/17.6 cm/sec. Mid ICA 75.1/15.7 cm/sec. Dist ICA 86.3/26.2 cm/sec. Dist ICA 86.3/21.2 cm/sec. Rt. ICA/CCA = 0.7. Lt. ICA/CCA = 0.9. Prox ECA 119.3/2.4 cm/sec. Prox ECA 108.3/2.4 cm/sec. Rt. Vert. 44.8/14.2 cm/sec. Lt. Vert. 76.5/12.6 cm/sec. Right Extracranial There is heterogeneous, irregular atherosclerotic plaque noted in the right common carotid artery. There is heterogeneous, irregular atherosclerotic plaque noted in the right internal carotid artery. There is homogeneous, smooth atherosclerotic plaque noted in the right external carotid artery. Antegrade flow is noted in the right vertebral artery. Left Extracranial There is heterogeneous, irregular atherosclerotic plaque noted in the left common carotid artery. There is heterogeneous, irregular atherosclerotic plaque noted in the left internal carotid artery. There is heterogeneous, irregular atherosclerotic plaque noted in the left external carotid artery. Antegrade flow is noted in the left vertebral artery. Procedure Carotid Duplex 15404. This is a Carotid Duplex examination using B-mode, color flow and specral Doppler. Exam performed in department. VL/Carotid Duplex Ultrasound Interpretation Summary Mild (<50%) stenosis right extracranial internal carotid. Mild (<50%) stenosis left extracranial internal carotid. Patent and antegrade vertebrals bilaterally. Ordering Physician: Kristina Giordano Referring Physician: Kristina Giordano Performed By: Collette Alston RVT and Student
== END | disposition home or self-care (01) ==
LOC: CVS 07:46
PROVIDERS: PCP Family Medicine; Referring Provider Physician Assistant; Visit Provider Physician Assistant
DX: I65.21 Occlusion and stenosis of right carotid artery (principal); Z48.812 Encounter for surgical aftercare following surgery on the circulatory system; I73.9 Peripheral vascular disease, unspecified
CPT/HCPCS: 93880; 93922

== ENCOUNTER 2025-01-20 05:19 | Emergency (ER) | payer MEDICARE, OTHER, SELFPAY ==
[2025-01-20 05:21] VITALS: BP 148/79; PULSE 61; RESP 16; TEMP 36.7; O2SAT 98; BMI 23.8
--- NOTE | 2025-01-20 05:38 | CT_ITS ---
PROCEDURE: SPINE CERVICAL WITHOUT CONTRAS 01/20/2025 REASON FOR EXAM: FALL TECHNIQUE: Procedure Code: CTSPC Modality: CT Procedure: SPINE CERVICAL WITHOUT CONTRAS Coronal and Sagittal reconstruction series were provided. One or more dose reduction techniques were used (e.g., Automated exposure control, adjustment of the mA and/or kV according to patient size, use of iterative reconstruction technique. RADIATION DOSE SUMMARY: CTDlvol: 44.9 mGy DLP: 1148.15 mGycm COMPARISON: None FINDINGS: Reduces cervical curve suggesting muscle spasm. No definite compression fracture. No vertebral instability. Multilevel endplates osteophytes are noted. Mild C4-5, C5-6 and C6-7 facet arthropathy. No obvious soft tissue lesions. C3-4, C4-5, C5-6 and C6-7 mild posterior disc bulge/osteophyte complex with mild bilateral neural compromise. CT/Spine Cervical without Contras IMPRESSION: Reduces cervical curve suggesting muscle spasm. No definite acute findings. Multilevel disc lesions. MRI correlation on routine basis would be helpful as clinically warranted [facility]
--- NOTE | 2025-01-20 05:38 | CT_ITS ---
PROCEDURE: BRAIN/HEAD WITHOUT CONTRAST 01/20/2025 REASON FOR EXAM: FALL HEAD INJURY TECHNIQUE: Procedure Code: CTBR Modality: CT Procedure: BRAIN/HEAD WITHOUT CONTRAST Coronal and Sagittal reconstruction series were provided. One or more dose reduction techniques were used (e.g., Automated exposure control, adjustment of the mA and/or kV according to patient size, use of iterative reconstruction technique. RADIATION DOSE SUMMARY: CTDlvol: 44 mGy DLP: 1450 mGycm COMPARISON: 09/01/2022 FINDINGS: Normal size of the ventricles and extra-axial spaces for the patient's age. Normal white matter tracts of the supratentorial brain. Normal basal ganglia and thalami. Normal brainstem. Normal cerebellum. There is no demonstrated extra-axial, intraparenchymal, or intraventricular hemorrhage. There are no findings of an acute ischemic infarction. Normal calvarium. There is no demonstrated fracture. Normal soft tissue structures. Normal visualized paranasal sinuses. CT/Brain/Head without Contrast IMPRESSION: No acute intracranial abnormalities. Reading Location: [id number]
--- OUTSIDE RECORDS SUMMARY | 2025-01-20 05:40 | XMS RPT_ITS | CCD ---
Author Organization [facility] Care Team Providers 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 Name Role Phone GARCIA ROJAS Unavailable Unavailable Jared Robertson Unavailable Unavailable Jared Robertson Unavailable Unavailable GARCIA ROJAS Unavailable Unavailable Jared Robertson Unavailable Unavailable Jared Robertson Unavailable Unavailable GARCIA ROJAS Unavailable Unavailable Jared Robertson Unavailable Unavailable Jared Robertson MD Primary Care Provider Jared Robertson MD Primary Care Provider Kaden Ortiz Unavailable Dr. Jared Robertson Primary Care Provider MD Delaney Ostrander Emergency Provider Dr. Kaden Becerra Admit Provider Dr. Kaden Becerra Attending Provider Dr. Kaden Becerra Other Provider Jared Robertson MD Primary Care Provider Kaden Ortiz Unavailable Dr. Kevin Chang Attending Provider Dr. Kevin Chang Other Provider Dr. Jared Robertson Referring Provider FriendDr. Delgado Attending Provider [phone] Dr. Danny Mathew Other Provider [phone] Jared Robertson MD Primary Care Provider Kaden Ortiz Unavailable Dr. Jared Robertson Primary Care Provider Dr. Jared Robertson Referring Provider FriendDr. Delgado Attending Provider [phone] Friend, Dr. Delgado Other Provider [phone] Chana BOTELLO, OCCUPATIONAL PHYSICIAN-C Perla Mays Attending Provider [phone] [place]al[place], Dr. Maxwell Anderson Attending Provider Blake BOTELLO, OCCUPATIONAL PHYSICIAN-C Yue Referring Provider [phone] Jared Robertson MD Primary Care Provider Dr. Jared Robertson Primary Care Provider Dr. Jared Robertson Referring Provider Dr. Danny Mathew Attending Provider [phone] Dr. Inder Bolaños Attending Provider [phone] [place], Dr. Maxwell Anderson Referring Provider [place], Dr. Maxwell Anderson Other Provider Jared Robertson MD Primary Care Provider Kaden Ortiz F [facility] Dr. Jared Robertson Primary Care Provider Dr. Jared Robertson Referring Provider Dr. Jared Robertson Primary Care Provider Dr. Jared Robertson Referring Provider [place], Dr. Maxwell Anderson Attending Provider Dr. Inder Bolaños Attending Provider [place], Dr. Maxwell Anderson Referring Provider [place], Dr. Maxwell Anderson Other Provider JORDAN Pacheco Attending Provider Dr. Danny Mathew Attending Provider [phone] Dr. Danny Mathew Referring Provider [phone] Dr. Danny Mathew Other Provider [phone] Dr. Jared Robertson Primary Care Provider Dr. Jared Robertson Referring Provider Dr. Maxwell Rich Attending Provider [phone] Chana BOTELLO, OCCUPATIONAL PHYSICIAN-C Perla Mays Attending Provider Dr. Malika Rojas Emergency Provider Dr. Audi Esqueda Admit Provider Dr. Audi Esqueda Attending Provider Dr. Audi Esqueda Other Provider Dr. Audi Tadeo Attending Provider Dr. Inder Bolaños Attending Provider Angel BECKER, Kaden Dominguez Unavailable Jared Robertson MD Primary Care Provider Dr. Jared Robertson Primary Care Provider Dr. Jared Robertson Referring Provider Dr. Danny Mathew Attending Provider [phone] Dr. Audi Tadeo Attending Provider [phone] Jared Robertson Primary Care Provider Dr. Jared Robertson Referring Provider Dr. Audi Tadeo Attending Provider [phone] Audi Tadeo Referring Provider [phone] Danny Mathew Attending Provider [phone] Dr. Danny Mathew Other Provider [phone] Jared Robertson MD Primary Care Provider Jared Robertson MD Primary Care Provider Nicola GRADY.CORWIN, Korina Unavailable Tanisha Garcia PA-C Unavailable SUZETTE AGUILAR Attending Unavailable JARED ROBERTSON Referring Unavailable JARED ROBERTSON Primary Care Unavailable JARED ROBERTSON Primary Care Unavailable SUZETTE AGUILAR Attending Unavailable MACY, JARED A Referring Unavailable Audi Camp Attending Unavailable Macy, Jared Primary Care Unavailable Macy, Jared Primary Care Unavailable SchwAudi villa Attending Unavailable Giordano, Kristina Attending Unavailable Macy, Jared Referring Unavailable Macy, Jared Primary Care Unavailable Giordano, Kristina Referring Unavailable Macy, Jared Primary Care Unavailable Audi Tadeo Attending Unavailable Friend, Danny Consulting Unavailable Friend, Danny Attending Unavailable Macy, Jared Primary Care Unavailable Macy, Jared Referring Unavailable Friend, Danny Attending Unavailable Macy, Jared Primary Care Unavailable Macy, Jared Referring Unavailable Friend, Danny Attending Unavailable Macy, Jared Primary Care Unavailable Macy, Jared Referring Unavailable Giordano, Kristina Attending Unavailable Giordano, Kristina Referring Unavailable Macy, Jared Primary Care Unavailable MACY, JARED A Primary Care Unavailable MACY, JARED A Referring Unavailable MACY, JARED A Primary Care Unavailable MACY, JARED A Referring Unavailable MACY, JARED A Primary Care Unavailable MACY, JARED A Primary Care Unavailable MACY, JARED A Referring Unavailable MACY, JARED A Primary Care Unavailable MACY, JARED A Referring Unavailable Nicola GRADY.CORWIN, Korina Unavailable Tanisha Garcia PA-C Unavailable [phone] KATHERINE HERNÁNDEZ Attending Unavailable MACY, JARED A Referring Unavailable MACY, JARED A Primary Care Unavailable MAXWELL WHARTON Referring Unavailable MACY, JARED A Primary Care Unavailable MACY, JARED A Primary Care Unavailable SELF Referring Unavailable MACY, JARED A Attending Unavailable MACY, JARED A Primary Care Unavailable SOFIA BOYCE Attending Unavailable SOFIA BOYCE Referring Unavailable MACY, JARED A Primary Care Unavailable SELF Referring Unavailable MACY, JARED A Attending Unavailable MACY, JARED A Primary Care Unavailable MACY, JARED A Referring Unavailable MACY, JARED A Primary Care Unavailable MACY, JARED A Referring Unavailable MACY, JARED A Primary Care Unavailable MACY, JARED A Referring Unavailable MACY, JARED A Primary Care Unavailable MACY, JARED A Referring Unavailable MACY, JARED A Primary Care Unavailable SOFIA BOYCE Attending Unavailable MACY, JARED A Primary Care Unavailable MACY, JARED A Referring Unavailable MACY, JARED A Primary Care Unavailable JARED ROBERTSON A Primary Care Unavailable JARED ROBERTSON Attending Unavailable JARED ROBERTSON A Primary Care Unavailable MALIKA ROBERTSONREY A Referring Unavailable MAXWELL WHARTON Referring Unavailable MALIKA ROBERTSONREY A Primary Care Unavailable JARED ROBERTSON A Attending Unavailable MALIKA ROBERTSONREY A Primary Care Unavailable MACYMALIKA DAVISREY A Referring Unavailable MACY JARED A Primary Care Unavailable SOFIA BOYCE Attending Unavailable JARED ROBERTSON A Primary Care Unavailable JARED ROBERTSON A Primary Care Unavailable MAXWELL WHARTON Attending Unavailable MALIKA ROBERTSONREY A Primary Care Unavailable JARED ROBERTSON A Referring Unavailable MAXWELL WHARTON Referring Unavailable MALIKA ROBERTSONREY A Primary Care Unavailable Allergies Allergy Classification Reported Allergen(s) Allergy Type Date of Onset Reaction(s) Facility Amitriptyline (1 source) Amitriptyline Drug Allergy 8 Other: See Comments [facility] Work Phone: (6 sources) Not Able To Determine Propensity to adverse reactions 3 [facility] (20 sources) Amitriptyline; Translations: [AMITRIPTYLINE HCL] Drug Allergy 8 Other: See Comments [facility] Work Phone: Medications Current Medications Medication Drug Class(es) Dates Sig (Normalized) Sig (Original) [id number] 200 actuat albuterol 0.09 mg/actuat metered dose inhaler (20 sources) beta2-Adrenergic Agonist Start: 10-12-2020 End: 09-26-2021 take 2 puff(s) by inhalation every six hours as needed albuterol HFA (PROAIR HFA) 90 mcg/actuation inhaler Inhale 2 Puffs as instructed every 6 hours as needed. 1 Each 1 09/26/2021 Active Start: 09-30-2018 End: 01-15-2022 take 1 puff(s) by inhalation every four hours Albuterol Sulfate (Ventolin Hfa) 90 mcg/actuation HFA aerosol inhaler Discontinued 2 PUFF INHALATION Q4H September 30, 2018 12:00am January 15, 2022 3:33pm Start: 04-22-2018 End: 09-09-2021 take 2 puff(s) by inhalation every four hours as needed for wheezing albuterol HFA (VENTOLIN HFA) 90 mcg/actuation inhaler Inhale 2 Puffs as instructed every 4 hours as needed for Wheezing/Shortness of Breath. 1 Inhaler 04/22/2018 09/09/2021 Discontinued (Course of therapy completed) Comment on above: Inhale 2 Puffs as in structed every 4 hours as needed for Wheezing/Shortness of Breath. Inhale 2 Puffs as in structed every 6 hours as needed. 10 ml aminophylline 25 mg/ml injection (3 sources) Start: End: aminophylline 50-250 mg injection amoxicillin 500 mg / clavulanate 125 mg oral tablet (20 sources) Penicillin-class Antibacterial Start: End: take 1 tablet by mouth every twelve hours amoxicillin-clavulan ate potassium (AUGMENTIN) 500-125 mg per tablet Indications: Pain in left foot Take 1 tablet by mouth every 12 hours for 7 days. 14 tablet 04/12/2024 04/19/2024 Active Start: 06-24-2023 End: 08-13-2023 amoxicillin-clavulanate pota ssium (AUGMENTIN) 875-125 mg per tablet Indications: Cellulitis and abscess of toe of left foot Take 1 tablet by mouth two times a day for 7 days. FOR 7 DAYS. 14 tablet 08/06/2023 08/13/2023 benzonatate 100 mg oral capsule (2 sources) Non-narcotic Antitussive Start: 09-18-2021 End: 10-06-2021 take 1 capsule by mouth every eight hours as needed benzonatate (TESSALON PERLE) 100 mg capsule Take 1 capsule by mouth three times daily as needed for up to 10 days. 30 capsule 0 09/26/2021 10/06/2021 Active Comment on above: Take 1 capsule by [facility] three times daily as needed for up to 10 days. Cetirizine (6 sources) Histamine-1 Receptor Antagonist Cetirizine HCl (ZYRTEC ALLERGY PO) as needed. Active Cetirizine HCl ( ZYRTEC ALLERGY PO) as needed. 0 Active clobetasol propionate 0.0005 mg/mg topical ointment (15 sources) Corticosteroid Start: 03-29-2021 End: 03-29-2022 clobetasol (TEMOVATE) 0.05 % ointment Apply to affected area twice daily. 45 g 0 03/29/2021 03/29/2022 Active Comment on above: Apply to affected ar ea twice daily. doxycycline hyclate 100 mg oral capsule (20 sources) Tetracycline-class Drug Start: 06-02-2023 take 100 mg by mouth twice daily Doxycycline Hyclate Active 100 MG PO TWICE A DAY 60 June 02, 2023 12:00am Start: 11-27-2022 End: 03-01-2023 take 100 mg by mouth twice daily Doxycycline Hyclate Discontinued 100 MG PO TWICE A DAY 60 December 02, 2022 10:49am March 01, 2023 2:37pm Start: 06-16-2022 End: 08-31-2022 take 100 mg by mouth twice daily Doxycycline Hyclate Discontinued 100 MG PO TWICE A DAY June 16, 2022 12:00am August 31, 2022 2:07pm End: 02-23-2024 take 1 tablet by mouth twice daily Doxycycline Hyclate 100 mg EC tablet Take 100 mg by mouth two times a day. 02/23/2024 Discontinued (Course of therapy completed) enteric contrast (will be provided with radiology test) (1 source) Start: 09-12-2024 End: 09-13-2024 enteric contrast (will be pr ovided with radiology test) Indications: LUQ pain For CT ABD W IVCON order Administer, As Directed One Time Only, via Oral, Rectal, both Oral and Rectal, Enteric Tube, Stoma or Indwelling Catheter, Enteric Contrast as designated per enteric contrast guidelines 1 each 09/12/2024 09/13/2024 Active iv contrast (will be provide d with radiology test) (3 sources) Start: 09-12-2024 End: 09-13-2024 iv contrast (will be provide d with radiology test) Indications: LUQ pain CT ABD W -Inject, intravenously, once for 1 dose.No IV access, insert saline lock prior to the beginning of sedation, infusion, injection of imaging exam. Discontinue saline lock post exam. If Pt. has a central line or IVAD, may access for administration according to line specific nursing protocol. Once exam is complete flush line and de-access according to line specific nursing protocol in the CT contrast administration guidelines link. 1 each 09/12/2024 09/13/2024 Active Start: 01-12-2024 End: 01-13-2024 inject 1 dose intravenously once iv contrast (will be provided with radiology test) Indications: Right inguinal pain , Abdominal aortic aneurysm (AAA) without rupture, unspecified part (HCC) CTA ABD/PEL LE - No IV access, insert saline lock prior to the sedation, infusion, injection for imaging exam. Discontinue saline lock post exam. If Pt. has a central line or IVAD, may access for administration according to line specific nursing protocol. Once exam is complete flush line and de-access according to line specific nursing protocol in the CT contrast administration guidelines link. 1 Each 01/12/2024 01/13/2024 Active Start: 01-09-2023 End: 01-10-2023 inject 1 dose intravenously once iv contrast (will be provided with radiology test) Indications: Unsteady gait MRI Brain Inject, intravenously, once for 1 dose.No IV access, insert saline lock prior to beginning of sedation, infusion, injection of imaging exam.Discontinue saline lock post exam. If Pt. has a central line or IVAD, may access for administration according to line specific nursing protocol.Once exam is complete flush line and de-access according to line specific nursing protocol in the MR contrast administration guidelines link 1 Each 0 01/09/2023 01/10/2023 Active Comment on above: MRI Brain Inject, in travenously, once for 1 dose.No IV access, insert saline lock prior to beginning of sedation, infusion, injection of imaging exam.Discontinue saline lock post exam. If Pt. has a central line or IVAD, may access for administration according to line specific nursing protocol.Once exam is complete flush line and de-access according to line specific nursing protocol in the MR contrast administration guidelines link lactulose 667 mg/ml oral solution (20 sources) Osmotic Laxative Start: 01-12-2024 lactulose 10 gram/15 mL solution Take 30 ml twice a day. 3785 mL 5 01/12/2024 Active Start: 10-21-2023 End: 01-12-2024 lactulose 10 gram/15 mL solu tion Take 1-2 table spoons a day for constipation 946 mL 5 10/21/2023 01/12/2024 Discontinued Start: 08-02-2018 End: 10-27-2022 take 30 mL by mouth once lactulose (DUPHALAC, CONSTUL OSE) 10 g/15 mL soln Take 30 mL by mouth once daily. Per Cardio Dr. Ortiz 08/02/2018 10/27/2022 Discontinued Start: 07-25-2018 take 1 mL by mouth once daily Lactulose Active 30 ML PO DAILY July 25, 2018 12:00am take 30 mL by mouth once daily L ACTULOSE PO Take 30 mL by mouth daily. Active take 30 mL by mouth once daily L ACTULOSE PO Take 30 mL by mouth daily. 0 Active Comment on above: Take 30 mL by mouth once daily. Per Cardio Dr. Ortiz 5 ml metoprolol tartrate 1 mg/ml injection (3 sources) beta-Adrenergic Nicole Start: 04-14-19 End: 04-21-19 metoprolol 2.5-5 mg injection (LOPRESSOR) nirmatrelvir tablet 150 mg and ritonavir tablet 100 mg in a dose pack (PAXLOVID) (1 source) Start: 09-10-19 End: 09-15-19 nirmatrelvir tablet 150 mg and ritonavir tablet 100 mg in a dose pack (PAXLOVID) Indications: COVID Administer TWO pink nirmatrelvir 150 mg tablets and ONE white ritonavir 100 mg tablet for a total of three tablets twice daily. 30 tablet 0 09/09/2021 09/14/2021 Active Comment on above: Administer TWO pink nirmatrelvir 150 mg tablets and ONE white ritonavir 100 mg tablet for a total of three tablets twice daily. omeprazole 40 mg delayed release oral capsule (20 sources) Proton Pump Inhibitor Start: 01-12-20 take 1 capsule by mouth once daily omeprazole (PRILOSEC) 40 mg capsule Indications: GERD without esophagitis Take 1 capsule by mouth once daily. 90 capsule 1 01/12/2024 Active Start: 10-05-2022 End: 01-12-2024 take 1 capsule by mouth once daily omeprazole (PRILOSEC) 10 mg capsule Indications: GERD without esophagitis Take 1 capsule by mouth once daily. 90 capsule 1 10/05/2022 01/12/2024 Discontinued Start: 01-15-2022 take 40 mg by mouth once daily Omeprazole Active 40 MG PO DAILY January 15, 2022 3:33pm Start: 11-24-2021 End: 01-15-2022 take 20 mg by mouth once daily Omeprazole Discontinued 20 MG PO DAILY December 25, 2021 9:54am January 15, 2022 3:34pm Comment on above: Take 10 mg by mouth once daily. Take 1 capsule by [facility] once daily. ondansetron 4 mg disintegrating oral tablet (7 sources) Serotonin-3 Receptor Antagonist Start: 09-28-19 End: 10-28-19 take 1 tablet by mouth every twelve hours as needed ondansetron orally disintegrating (ZOFRAN ODT) 4 mg disintegrating tablet Take 1 tablet by mouth every 12 hours as needed for nausea/vomiting. 30 tablet 1 09/28/2023 10/28/2023 Active perflutren lipid microspheres 1.3 mL in NaCl (PF) 0.9% 10 mL injection (DEFINITY) (3 sources) Start: 04-14-19 End: 04-21-19 perflutren lipid microspheres 1.3 mL in NaCl (PF) 0.9% 10 mL injection (DEFINITY) predniSONE 20 mg oral tablet (13 sources) Start: 08-06-19 Prednisone Active 40 MG PO DAILY August 05, 2021 12:00am 40 mg daily for 3 days, then 30 mg daily for 3 days, then 20 mg daily for three days, then stop Start: 06-02-2017 End: 07-25-2018 take 40 mg by mouth once daily at mealtime Prednisone Discontinued 40 MG PO DAILY June 02, 2017 12:00am July 25, 2018 3:58pm With food regadenoson 0.4 mg injection (LEXISCAN) (3 sources) Start: 04-14-2023 End: 04-21-2023 regadenoson 0.4 mg injection (LEXISCAN) rituximab/hyaluronidase,leydi n (RITUXAN HYCELA SUBCUTANEOUS) (20 sources) rituximab/hyalur onidase,human (RITUXAN HYCELA SUBCUTANEOUS) Inject subcutaneously. Active rituximab/hyalur onidase,human (RITUXAN HYCELA SUBCUTANEOUS) Inject subcutaneously. 0 Active rosuvastatin calcium 20 mg oral tablet (20 sources) HMG-CoA Reductase Inhibitor Start: 02-08-2013 End: 01-12-2024 take 1 tablet by mouth once daily rosuvastatin (CRESTOR) 20 mg tablet Indications: Mixed hyperlipidemia Take 1 tablet by mouth once daily. 90 tablet 1 01/12/2024 Active Comment on above: Take 20 mg by mouth once daily. Take 1 tablet by gali th once daily. 125 ml sodium chloride 9 mg/ml prefilled syringe (3 sources) Start: 04-14-2023 End: 04-21-2023 sodium chloride 0.9 % (flush) 10 mL (BD POSIFLUSH) Completed/Discontinued Medications Medication Drug Class(es) Dates Sig (Normalized) Sig (Original) acetaminophen 325 mg oral tablet (3 sources) Start: 08-22-2024 End: 08-22-2024 take 1 dose by mouth once, then take 4000 mg by mouth once daily 650 mg, ORAL, ONCE, 1 dose, On Wed08/22/24 at 0800, No more than 4000 mg of acetaminophen should be given per day (FROM ALL SOURCES) Start: 03-07-2024 End: 03-07-2024 take 1 dose by mouth once, then take 4000 mg by mouth once daily 650 mg, ORAL, ONCE, 1 dose, On Wed03/07/24 at 0800, No more than 4000 mg of acetaminophen should be given per day (FROM ALL SOURCES) Start: 09-21-2023 End: 09-21-2023 acetaminophen 650 mg tab(s) (TYLENOL) acetaminophen 325 mg / HYDROcodone bitartrate 5 mg oral tablet (20 sources) Opioid Agonist Start: 03-23-2022 End: 04-02-2022 take 1 tablet by mouth every six hours as needed Hydrocodone-Acetaminophen Discontinued 1 TABLET PO EVERY 6 HOURS NEEDED 6 2 March 23, 2022 April 02, 2022 3:02pm Start: 08-05-2021 End: 12-25-2021 take 1-2 tablets by mouth every six hours as needed for pain Hydrocodone-Acetaminophen Discontinued 1 TABLET PO EVERY 6 HOURS 30 7 August 05, 2021 December 25, 2021 9:55am 1-2 tabs every 6 hours as needed for pain Start: 06-02-2017 End: 07-25-2018 take 1 tablet by mouth every four hours as needed Hydrocodone-Acetaminophen Discontinued 1 - 2 TABLET PO EVERY 4 HOURS NEEDED June 02, 2017 12:00am July 25, 2018 3:58pm amoxicillin/potassium clav (AUGMENTIN ORAL) (17 sources) End: 01-12-2024 amoxicillin/potassium clav (AUGMENTIN ORAL) Take by mouth. 01/12/2024 Discontinued (Course of therapy completed) amoxicillin/pota ssium clav (AUGMENTIN ORAL) Take by mouth. Active amoxicillin/pota ssium clav (AUGMENTIN ORAL) Take by mouth. 0 Active aspirin 81 mg chewable tablet (20 sources) Platelet Aggregation Inhibitor, Nonsteroidal Anti-inflammatory Drug Start: 02-21-2016 End: 06-15-2023 take 81 mg by mouth once daily Aspirin Discontinued 81 MG PO DAILY February 21, 2016 1:00am June 15, 2023 12:43pm Start: 02-08-2013 End: 02-10-2013 take 81 mg by mouth once daily Aspirin Discontinued 81 MG PO DAILY@0800 February 08, 2013 1:00am February 10, 2013 9:11am Start: 04-22-2009 End: 07-09-2023 aspirin(ASPIR-81 81 MG TAB) One tabs every morning 0 04/22/2009 10/27/2022 Discontinued take 1 tablet by gali th once daily aspirin 81 MG Tab take 81 mg by mouth daily. Active Comment on above: One tabs every morni ng Take 81 mg by mouth once daily. azithromycin 250 mg oral tablet (4 sources) Macrolide Antimicrobial Start: 02-22-19 End: 03-22-19 azithromycin (ZITHROMAX Z-CARIDAD) 250 mg tablet 2 tablets by mouth first day then 1 tablet the next 4 days 6 tablet 02/23/2024 03/22/2024 Discontinued (Course of therapy completed) cephalexin 500 mg oral capsule (11 sources) Cephalosporin Antibacterial Start: 06-20-19 End: 07-09-19 take 1 capsule by mouth four times daily cephALEXin (KEFLEX) 500 mg capsule Take 500 mg by mouth four times daily. 06/20/2023 06/24/2023 Discontinued (Changing Therapy/Dosage Form) Start: 06-20-2023 take 500 mg by mouth every six hours Cephalexin Active 500 MG PO EVERY 6 HOURS June 20, 2023 12:00am colchicine 0.6 mg oral tablet (11 sources) Start: 02-19-2021 End: 09-09-2021 take 1 tablet by mouth three times daily colchicine 0.6 mg tablet Indications: Toe pain, left Take one tab by mouth 3 times a day till pain stops or script finished. 10 tablet 1 02/19/2021 09/09/2021 Discontinued (Course of therapy completed) Comment on above: Take one tab by mout h 3 times a day till pain stops or script finished. diphenhydrAMINE (3 sources) Histamine-1 Receptor Antagonist Start: 08-22-2024 End: 08-22-2024 50 mg, INTRAVENOUS, ONCE, 1 dose, On Wed08/22/24 at 0800 Start: 03-07-2024 End: 03-07-2024 50 mg, INTRAVENOUS, ONCE, 1 dose, On Wed03/07/24 at 0800 Start: 09-21-2023 End: 09-21-2023 diphenhydrAMINE 50 mg inject ion (BENADRYL) esomeprazole 40 mg delayed release oral capsule (20 sources) Proton Pump Inhibitor Start: 09-06-2020 End: 04-06-2022 take 1 capsule by mouth twice daily before mealtime esomeprazole (NEXIUM) 40 mg capsule Take 1 capsule by mouth twice daily before meals. Per GastroDr. Bright 60 capsule 5 09/06/2020 04/06/2022 Discontinued (Discontinued by another Health Care Provider) Start: 06-02-2017 take 40 mg by mouth once daily Esomeprazole Magnesium Active 40 MG PO DAILY June 02, 2017 12:00am Start: 02-08-2013 End: 05-11-2017 take 40 mg by mouth once daily Esomeprazole Magnesium Discontinued 40 MG PO DAILY February 08, 2013 1:00am May 11, 2017 1:26pm esomeprazole 40 MG Cap Indications: Waldenstrom macroglobulinemia take 20 mg by mouth 2 times daily.. 0 Active Comment on above: Take 1 capsule by mo uth twice daily before meals. Per GastroDr. Bright famotidine 40 mg oral tablet (20 sources) Histamine-2 Receptor Antagonist Start: 0 End: 2 take 1 tablet by mouth once daily at bedtime famotidine (PEPCID) 40 mg tablet Take 40 mg by mouth daily at bedtime. Per gastro 01/04/2020 09/09/2021 Discontinued (Course of therapy completed) Start: 05-11-2017 End: 07-31-2019 take 1 tablet by mouth once daily Famotidine (Pepcid) 40 mg tablet Discontinued 40 MG PO DAILY July 25, 2018 3:58pm July 31, 2019 1:33pm Comment on above: Take 40 mg by mouth daily at bedtime. Per gastro fluticasone propionate 0.05 mg/actuat metered dose nasal spray (20 sources) Corticosteroid Start: 10-28-19 End: 07-09-19 take 2 spray(s) by mouth once daily fluticasone (FLONASE) 50 mcg/actuation nasal spray Use 2 Sprays in each nostril once daily. Rinse mouth after use. 1 Each 10/27/2022 07/09/2023 Discontinued (Discontinued by Patient) Comment on above: Use 2 Sprays in each nostril once daily. Rinse mouth after use. glycerin 2 mg/ml / hypromellose 2 mg/ml / polyethylene glycol 400 10 mg/ml ophthalmic solution (5 sources) Non-Standardized Chemical Allergen Start: 09-01-19 End: 06-15-19 Peg [id number] cerin (Dry Eye Relief) 1-0.2-0.2 % drops Discontinued 1 DRP EACH EYE DAILY August 31, 2022 12:00am June 15, 2023 3:27pm meclizine hydrochloride 12.5 mg oral tablet (4 sources) Antiemetic Start: 09-02-19 End: 03-01-19 take 12.5 mg by mouth three times daily Meclizine Discontinued 12.5 MG PO THREE TIMES A DAY September 01, 2022 12:00am March 01, 2023 2:38pm MEDICATION, NON-DATABASE (20 sources) End: 10-28-19 MEDICATION, NON-DATABASE Takes med for digestive problems but pt doesn't remember name 10/27/2022 Discontinued End: 10-27-2022 MEDICATION, NON-DATABASE Cole es med for digestive problems but pt doesn't remember name 0 10/27/2022 Discontinued MEDICATION, NON- DATABASE Takes med for digestive problems but pt doesn't remember name 0 Active Comment on above: Takes med for digest viviana problems but pt doesn't remember name methylPREDNISolone 125 mg injection (7 sources) Corticosteroid Start: 08-22-2024 End: 08-22-2024 100 mg, INTRAVENOUS, ONCE, 1 dose, On Wed08/22/24 at 0800 Start: 04-12-2024 End: 04-18-2024 methylPREDNISolone (MEDROL, CARIDAD,) 4 mg Dose-Pack Take as directed 21 tablet 04/12/2024 04/18/2024 Active Start: 03-07-2024 End: 03-07-2024 100 mg, INTRAVENOUS, ONCE, 1 dose, On Wed03/07/24 at 0800 Start: 09-21-2023 End: 09-21-2023 methylPREDNISolone sod succi yonathan(PF) 100 mg injection (SOLU-Medrol) Start: 08-06-2023 End: 08-12-2023 methylPREDNISolone (MEDROL, CARIDAD,) 4 mg Dose-Pack Indications: Cellulitis and abscess of toe of left foot Take as directed 21 tablet 08/06/2023 08/12/2023 Start: 08-06-2023 End: 08-12-2023 methylPREDNISolone (MEDROL, CARIDAD,) 4 mg Dose-Pack Indications: Cellulitis and abscess of toe of left foot Take as directed 21 tablet 0 08/06/2023 08/12/2023 Active metroNIDAZOLE 0.01 mg/mg topical gel (20 sources) Nitroimidazole Antimicrobial Start: 04-06-2022 End: 10-05-2023 metroNIDAZOLE (METROGEL) 1 % Topical Gel Indications: Rosacea Apply 1 application to affected area once daily. Location: face 60 g 1 10/05/2022 10/05/2023 Start: 03-29-2021 End: 03-29-2022 metroNIDAZOLE 1 % gel Apply 1 application to affected area once daily. Location: face 60 g 1 03/29/2021 03/29/2022 Active Start: 09-06-2020 End: 01-04-2021 metroNIDAZOLE 1 % gel Apply 1 application to affected area once daily. Location: face 60 g 1 09/06/2020 01/04/2021 Comment on above: Apply 1 application to affected area once daily. Location: face primidone 50 mg oral tablet (8 sources) Anti-epileptic Agent Start: End: 5 primidone (MYSOLINE) 50 mg tablet Take 1/2 a tab QHS for a week then go to taking one before bed. 90 tablet 1 08/30/2024 10/19/2024 Discontinued (Course of therapy completed) rifAXIMin 550 mg oral tablet (3 sources) Rifamycin Antibacterial Start: 3 End: 4 take 1 tablet by mouth three times daily Rifaximin (Xifaxan) 550 mg tablet Discontinued 550 MG PO THREE TIMES A DAY November 18, 2022 12:00am March 01, 2023 2:38pm riTUXimab-pvvr 1,000 mg in NaCl 0.9% 640 mL (RUXIENCE) (2 sources) Start: 5 End: 5 1,000 mg, INTRAVENOUS, ONCE, 1 dose, On Wed03/07/24 at 0800, Infuse at rate of 50mg/hr. If no hypotension, increase rate every 30 minutes by 50mg/hr to a maximum rate of 400mg/hr. exp 89903/08/24 (room temp) Refrigerate. Start: 09-21-2023 End: 09-21-2023 riTUXimab-pvvr 1,000 mg in N aCl 0.9% 640 mL (RUXIENCE) riTUXimab-pvvr 500 mg in NaC l 0.9% 325 mL (RUXIENCE) (1 source) Start: 08-22-2024 End: 08-22-2024 500 mg, INTRAVENOUS, ONCE, 1 dose, On Wed08/22/24 at 0800, Infuse at rate of 50mg/hr. If no hypotension, increase rate every 30 minutes by 50mg/hr to a maximum rate of 400mg/hr. exp 79908/23/24 (room temp) Refrigerate Sod Sulf-Pot Chloride-Mag Antunez lf (20 sources) Start: 10-30-2021 End: 12-25-2021 Sod Sulf-Pot Chloride-Mag Antunez lf (Sutab) 1.479-0.188- 0.225 gram tablet Discontinued 0 PO per package directions October 30, 2021 9:37am December 25, 2021 9:55am Take 12 tabs two days prior to colonoscopy with 16ounces of water, then drink an additional 24 ounces of water. Take the second 12 tabs one day prior to colonoscopy in the same manner. Start: 10-30-2021 End: 12-25-2021 Sod Sulf-Pot Chloride-Mag Antunez lf (Sutab) 1.479-0.188- 0.225 gram tablet Discontinued 0 PO per package directions October 30, 2021 8:37am December 25, 2021 8:55am Take 12 tabs two days prior to colonoscopy with 16ounces of water, then drink an additional 24 ounces of water. Take the second 12 tabs one day prior to colonoscopy in the same manner. Start: 10-30-2021 Sod Sulf-Pot C hloride-Mag Sulf (Sutab) 1.479-0.188- 0.225 gram tablet Active 0 PO per package directions October 30, 2021 9:37am Take 12 tabs two days prior to colonoscopy with 16ounces of water, then drink an additional 24 ounces of water. Take the second 12 tabs one day prior to colonoscopy in the same manner. Start: 10-29-2021 End: 10-30-2021 Sod Sulf-Pot Chloride-Mag Antunez lf (Sutab) 1.479-0.188- 0.225 gram tablet Discontinued 0 PO per package directions October 28, 2021 11:00pm October 30, 2021 8:37am Take 12 tabs two days prior to colonoscopy with 16ounces of water, then drink an additional 24 ounces of water. Take the second 12 tabs one day prior to colonoscopy in the same manner. Start: 10-29-2021 End: 10-30-2021 Sod Sulf-Pot Chloride-Mag Antunez lf (Sutab) 1.479-0.188- 0.225 gram tablet Discontinued 0 PO per package directions October 29, 2021 12:00am October 30, 2021 9:37am Take 12 tabs two days prior to colonoscopy with 16ounces of water, then drink an additional 24 ounces of water. Take the second 12 tabs one day prior to colonoscopy in the same manner. sucralfate 1000 mg oral tablet (20 sources) Aluminum Complex Start: 01-15-2022 End: 02-19-2022 take 1 tablet by mouth twice daily Sucralfate (Carafate) 1 gram tablet Discontinued 1 GM PO TWICE A DAY 60 January 20, 2022 10:28am February 19, 2022 3:35pm tadalafil 20 mg oral tablet (11 sources) Phosphodiesterase 5 Inhibitor Start: 03-22-2024 End: 08-30-2024 take 1 tablet by mouth once daily as needed Tadalafil (CIALIS) 20 mg tablet Take 1 tablet by mouth once daily as needed. Take 1-2 hours before sexual activity. 5 tablet 1 03/22/2024 08/30/2024 Discontinued (Discontinued by Patient) End: 09-12-2020 tadalafil 10 MG Tab Indicati ons: Waldenstrom macroglobulinemia take 10 mg by mouth as needed. 0 09/12/2020 Discontinued tamsulosin hydrochloride 0.4 mg oral capsule (12 sources) alpha-Adrenergic Nicole Start: 05-11-2017 End: 08-16-2020 take 1 capsule by mouth once daily Tamsulosin (Flomax) 0.4 mg capsule,extended release 24hr Discontinued 0.4 MG PO daily May 11, 2017 12:00am August 16, 2020 2:35pm traMADol hydrochloride 50 mg oral tablet (5 sources) Opioid Agonist Start: 06-24-2023 End: 07-01-2023 take 1 tablet by mouth every eight hours as needed for pain traMADol (ULTRAM) 50 mg tablet Indications: Pain of left great toe , Cellulitis of skin Take 1 tablet by mouth every 8 hours as needed for pain (left great toe pain) for up to 7 days. 21 tablet 0 06/24/2023 07/01/2023 traZODone hydrochloride 50 mg oral tablet (19 sources) Serotonin Reuptake Inhibitor Start: 03-22-2024 End: 10-19-2024 traZODone (DESYREL) 50 mg tablet Take 1 table by mouth 30 min prior to bed. 90 tablet 1 08/30/2024 10/19/2024 Discontinued (Course of therapy completed) zolpidem tartrate 5 mg oral tablet (13 sources) gamma-Aminobutyric Acid-ergic Agonist Start: 09-30-2018 End: 09-12-2020 take 1 tablet by mouth at bedtime Zolpidem (Ambien) 5 mg tablet Discontinued 5 MG PO AT BEDTIME September 30, 2018 12:00am July 31, 2019 1:33pm Problems Active Problems Problem Classification Problem Date Documented Da te Episodic/Chronic Abdominal pain (20 sources) Abdominal pain; Translations: [Unspecified abdominal pain] Onset: 4 06-13-2013 Episodic Acute posthemorrhagic anemia (12 sources) Acute posthemorrhagic anemia; Translations: [Acute posthemorrhagic anemia] 07-08-2015 Episodic Administrative/social admission (20 sources) Advance directive discussed with patient; Translations: [Other specified counseling] Onset: 3 Episodic Anal and rectal conditions (15 sources) Stenosis of rectum and anus; Translations: [Stenosis of anus and rectum] Episodic Aortic; peripheral; and visceral artery aneurysms (20 sources) Abdominal aortic aneurysm; Translations: [Abdominal aortic aneurysm, without rupture] Onset: 9 06-07-2018 Chronic Chronic obstructive pulmonary disease and bronchiectasis (20 sources) Chronic bronchitis; Translations: [Unspecified chronic bronchitis] Onset: 6 11-11-2016 Chronic Chronic obstructive pulmonary disease and bronchiectasis (1 source) Bronchitis; Translations: [Bronchitis, not specified as acute or chronic] 02-23-2024 Episodic Coagulation and hemorrhagic disorders (20 sources) Platelet count below reference range; Translations: [Thrombocytopenia, unspecified] Onset: 6 10-07-2015 Chronic Complications of surgical procedures or medical care (12 sources) Postoperative hemorrhage; Translations: [Post-polypectomy bleeding] 07-08-2015 Episodic Conditions associated with dizziness or vertigo (1 source) Lightheadedness; Translations: [Dizziness and giddiness] 10-27-2022 Episodic Conduction disorders (20 sources) First degree atrioventricular block; Translations: [Atrioventricular block, first degree] Onset: 4 04-14-2023 Chronic Coronary atherosclerosis and other heart disease (20 sources) Lipid-rich atherosclerosis of coronary artery; Translations: [Atherosclerotic heart disease of [place] coronary artery without angina pectoris] Onset: 6 06-07-2018 Chronic Disorders of lipid metabolism (20 sources) Mixed hyperlipidemia; Translations: [Mixed hyperlipidemia] Onset: 6 10-07-2015 Chronic Esophageal disorders (20 sources) Gastroesophageal reflux disease without esophagitis; Translations: [Gastro-esophageal reflux disease without esophagitis] Onset: 6 11-11-2016 Chronic Fluid and electrolyte disorders (1 source) Hypokalemia; Translations: [Hypokalemia] 04-14-2023 Episodic Genitourinary symptoms and ill-defined conditions (1 source) Microscopic hematuria; Translations: [Other microscopic hematuria] 04-14-2023 Episodic Headache; including migraine (1 source) Temporal headache; Translations: [Temporal headache] 03-22-2024 Episodic Headache; including migraine (1 source) Headache; including migraine; Translations: [Temporal headache] Onset: 5 Hyperplasia of prostate (20 sources) Benign prostatic hyperplasia; Translations: [Benign prostatic hyperplasia without lower urinary tract symptoms] Onset: 6 10-23-2015 Chronic Immunizations and screening for infectious disease (1 source) Needs influenza immunization; Translations: [Encounter for immunization] 01-09-2023 Episodic Infective arthritis and osteomyelitis (except that caused by tuberculosis or sexually transmitted disease) (8 sources) Acute osteomyelitis of left foot; Translations: [Acute hematogenous osteomyelitis, left ankle and foot] 07-07-2023 Chronic Intestinal obstruction without hernia (12 sources) Stricture of colon; Translations: [Other intestinal obstruction unspecified as to partial versus complete obstruction] Episodic Miscellaneous mental health disorders (20 sources) Primary insomnia; Translations: [Primary insomnia] Onset: 6 10-07-2015 Chronic Neoplasms of unspecified nature or uncertain behavior (20 sources) Monoclonal gammopathy (clinical); Translations: [Monoclonal gammopathy] Onset: 5 10-05-2022 Chronic Neoplasms of unspecified nature or uncertain behavior (1 source) Neoplastic disease; Translations: [Neoplasm of unspecified behavior of other specified sites] 06-29-2023 Episodic Non-Hodgkin`s lymphoma (20 sources) Waldenstrom macroglobulinemia; Translations: [Waldenstrom macroglobulinemia] Onset: 3 Chronic Occlusion or stenosis of precerebral arteries (20 sources) Bilateral stenosis of carotid arteries; Translations: [Occlusion and stenosis of bilateral carotid arteries] Onset: 6 12-19-2018 Chronic Open wounds of extremities (2 sources) Open wound of toe; Translations: [Unspecified open wound of unspecified toe(s) without damage to nail, initial encounter] 08-24-2023 Episodic Other aftercare (2 sources) Immunodeficiency secondary to chemotherapy ; 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)] 11-23-2023 Episodic Other circulatory disease (20 sources) Stenosis of right subclavian artery; Translations: [Stricture of artery] Onset: 8 07-31-2017 Chronic Other circulatory disease (2 sources) Stricture of artery; Translations: [Subclavian artery stenosis, right] Onset: 4 Chronic Other circulatory disease (2 sources) H/O: cardiovascular disease; Translations: [Personal history of other diseases of the circulatory system] 08-31-2022 Episodic Other circulatory disease (2 sources) Personal history of other diseases of the circulatory system; Translations: [Personal history of other diseases of circulatory system] 08-31-2022 Episodic Other connective tissue disease (2 sources) Pain in hallux; Translations: [Pain in left toe(s)] 06-24-2023 Episodic Other connective tissue disease (1 source) Pain of toe of left foot; Translations: [Pain in left toe(s)] 02-19-2021 Episodic Other connective tissue disease (3 sources) Pain in left foot; Translations: [Pain in left foot] 04-12-2024 Episodic Other connective tissue disease (1 source) Pain in left foot; Translations: [Pain in left foot] Onset: 5 Episodic Other diseases of veins and lymphatics (1 source) Venous stasis; Translations: [Other specified disorders of veins] 06-28-2023 Episodic Other ear and sense organ disorders (1 source) Tinnitus; Translations: [Other specified disorders of right ear] 04-14-2023 Episodic Other gastrointestinal disorders (20 sources) Irritable bowel syndrome; Translations: [Irritable bowel syndrome without diarrhea] Onset: 6 08-09-2019 Chronic Other gastrointestinal disorders (1 source) Irritable bowel syndrome characterized by constipation; Translations: [Irritable bowel syndrome with constipation] 01-12-2024 Chronic Other gastrointestinal disorders (1 source) Irritable bowel syndrome with constipation; Translations: [Irritable bowel syndrome with constipation] Onset: 4 Chronic Other gastrointestinal disorders (10 sources) Altered bowel function; Translations: [Other specified symptoms and signs involving the digestive system and abdomen] 10-29-2021 Episodic Other gastrointestinal disorders (7 sources) Other specified symptoms and signs involving the digestive system and abdomen; Translations: [Other symptoms involving digestive system] Episodic Other gastrointestinal disorders (5 sources) Constipation alternates with diarrhea; Translations: [Other specified symptoms and signs involving the digestive system and abdomen] 06-16-2022 Episodic Other gastrointestinal disorders (2 sources) Bloating symptom; Translations: [Abdominal distension (gaseous)] 06-16-2022 Episodic Other gastrointestinal disorders (5 sources) Abdominal distension (gaseous); Translations: [Flatulence, eructation, and gas pain] 06-16-2022 Episodic Other gastrointestinal disorders (3 sources) Abdominal bloating; Translations: [Abdominal distension (gaseous)] 11-18-2022 Episodic Other gastrointestinal disorders (1 source) Constipation; Translations: [Constipation, unspecified] 10-06-2023 Episodic Other gastrointestinal disorders (1 source) Acute constipation; Translations: [Constipation, unspecified] 10-07-2023 Episodic Other gastrointestinal disorders (2 sources) Diarrhea, unspecified; Translations: [Diarrhea, unspecified] Onset: Episodic Other gastrointestinal disorders (2 sources) Diarrhea; Translations: [Diarrhea, unspecified] 08-30-2024 Episodic Other hereditary and degenerative nervous system conditions (9 sources) Essential tremor; Translations: [Essential tremor] Onset: 5 08-30-2024 Chronic Other hereditary and degenerative nervous system conditions (1 source) Essential tremor; Translations: [Essential tremor] Onset: 5 Chronic Other inflammatory condition of skin (20 sources) Psoriasis; Translations: [Psoriasis, unspecified] Onset: 6 10-07-2015 Chronic Other inflammatory condition of skin (20 sources) Rosacea; Translations: [Rosacea, unspecified] Onset: 7 11-11-2016 Chronic Other lower respiratory disease (1 source) Cough; Translations: [Acute cough] 09-18-2021 Episodic Other lower respiratory disease (1 source) Cough; Translations: [Cough] 10-12-2020 Episodic Other male genital disorders (20 sources) Male erectile dysfunction, unspecified; Translations: [Impotence of organic origin] Onset: 6 10-07-2015 Chronic Other nervous system disorders (20 sources) Chronic pain syndrome; Translations: [Chronic pain syndrome] Onset: 6 02-11-2021 Chronic Other nervous system disorders (2 sources) Unable to walk; Translations: [Difficulty in walking, not elsewhere classified] Chronic Other nervous system disorders (2 sources) Difficulty in walking, not elsewhere classified; Translations: [Difficulty in walking] Chronic Other nervous system disorders (20 sources) Neuropathy; Translations: [Polyneuropathy, unspecified] Onset: 4 03-19-2023 Chronic Other nervous system disorders (1 source) Polyneuropathy; Translations: [Polyneuropathy, unspecified] 03-19-2023 Chronic Other nervous system disorders (5 sources) Chronic inflammatory demyelinating polyradiculoneuropathy ; Translations: [Chronic inflammatory demyelinating polyneuritis] 05-26-2023 Chronic Other nervous system disorders (1 source) Disorder of the peripheral nervous system; Translations: [Hereditary and idiopathic neuropathy, unspecified] 03-19-2023 Chronic Other nervous system disorders (1 source) Other specified polyneuropathies; 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] Onset: 4 Chronic Other nervous system disorders (1 source) Polyneuropathy in diseases classified elsewhere; Translations: [Neuropathy with IgM monoclonal gammopathy (HCC)] Onset: 5 Chronic Other nervous system disorders (1 source) Chronic inflammatory demyelinating polyneuritis; Translations: [Chronic inflammatory demyelinating polyneuropathy (HCC)] Onset: 5 Chronic Other nervous system disorders (5 sources) Ataxia; Translations: [Ataxia, unspecified] 08-31-2022 Episodic Other nervous system disorders (2 sources) Ataxia, unspecified; Translations: [Lack of coordination] 08-31-2022 Episodic Other nervous system disorders (3 sources) Abnormal gait; Translations: [Unsteadiness on feet] 01-09-2023 Episodic Other nutritional; endocrine; and metabolic disorders (20 sources) Gilbert's syndrome; 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] Onset: 6 10-23-2015 Chronic Other screening for suspected conditions (not mental disorders or infectious disease) (20 sources) Electrocardiogram abnormal; Translations: [Abnormal electrocardiogram [ECG] [EKG]] 05-10-2017 Episodic Other skin disorders (2 sources) Ingrowing nail of toe of left foot; Translations: [Ingrowing nail] 07-09-2023 Episodic Other skin disorders (2 sources) Dystrophia unguium; Translations: [Nail dystrophy] 11-16-2023 Episodic Other upper respiratory disease (20 sources) Allergic rhinitis due to pollen; Translations: [Allergic rhinitis due to pollen] Onset: 6 10-07-2015 Chronic Other upper respiratory disease (3 sources) Hoarse; Translations: [Dysphonia] 08-30-2024 Episodic Other upper respiratory disease (1 source) Voice finding; Translations: [Unspecified voice and resonance disorder] 10-20-2024 Episodic Other upper respiratory disease (2 sources) Dysphonia; Translations: [Hoarse voice quality] Onset: 5 Episodic Other upper respiratory infections (1 source) Viral upper respiratory tract infection; Translations: [Acute upper respiratory infection, unspecified] 02-20-2024 Episodic Residual codes; unclassified (1 source) Family history of cancer of colon; Translations: [Family history of malignant neoplasm of digestive organs] Episodic Residual codes; unclassified (2 sources) History of cardiovascular surgery; Translations: [Other specified postprocedural states] 03-19-2023 Episodic Screening and history of mental health and substance abuse codes (2 sources) Encounter for screening examination for other mental health and behavioral disorders; Translations: [Encounter for screening for depression] Onset: 5 Episodic Spondylosis; intervertebral disc disorders; other back problems (20 sources) Degeneration of lumbar intervertebral disc; Translations: [Other intervertebral disc degeneration, lumbar region] Onset: 6 10-07-2015 Chronic Sprains and strains (6 sources) Lumbosacral strain; Translations: [Strain of muscle, fascia and tendon of lower back, initial encounter] Episodic Unclassified (1 source) Unknown / UNK(Unknown) Onset: 8 Unclassified (1 source) 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; Translations: [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] Onset: 3 Unclassified (2 sources) Abdominal aortic aneurysm (AAA) without rupture, unspecified part (HCC); Translations: [Abdominal aortic aneurysm (AAA) without rupture, unspecified part (HCC)] Onset: 4 Unclassified (1 source) Abdominal aortic aneurysm (AAA) without rupture, unspecified part; Translations: [Abdominal aortic aneurysm (AAA) without rupture, unspecified part] Onset: 5 Unclassified (1 source) 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); 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)] Onset: 5 Unclassified (1 source) 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); 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)] Onset: 5 Past or Other Problems Problem Classification Problem Date Documented Da te Episodic/Chronic Abdominal hernia (20 sources) Hiatal hernia; Translations: [Diaphragmatic hernia without obstruction or gangrene] Onset: 1 03-08-2020 Episodic Cardiac dysrhythmias (20 sources) Palpitations; Translations: [Palpitations] Onset: 9 06-07-2018 Episodic Deficiency and other anemia (20 sources) Anemia; Translations: [Anemia, unspecified] Onset: 6 10-07-2015 Episodic Deficiency and other anemia (1 source) Anemia, unspecified; Translations: [Anemia, unspecified type] Onset: 6 Episodic Diabetes mellitus without complication (20 sources) Hyperglycemia; Translations: [Impaired fasting glucose] Onset: 8 11-18-2017 Episodic E Codes: Adverse effects of medical drugs (1 source) Adverse effect of antineoplastic and immunosuppressive drugs, initial encounter; 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)] Onset: 5 Episodic Malaise and fatigue (6 sources) Fatigue; Translations: [Other fatigue] Onset: 4 03-07-2013 Episodic Mood disorders (1 source) Mood disorders Onset: 5 03-17-2024 Nausea and vomiting (20 sources) Vomiting; Translations: [Vomiting, unspecified] Onset: 1 09-12-2020 Episodic Nonspecific chest pain (6 sources) Atypical chest pain; Translations: [Other chest pain] Onset: 4 01-12-2024 Episodic Other aftercare (20 sources) Patient encounter status; Translations: [Other fpc (current) drug therapy] Onset: 1 09-06-2020 Episodic Other aftercare (1 source) Other long term care administrator (current) drug therapy; Translations: [Medication management] Onset: 1 Episodic Other and unspecified benign neoplasm (20 sources) History of polyp of colon; Translations: [Personal history of colonic polyps] Onset: 6 08-09-2019 Episodic Other and unspecified benign neoplasm (20 sources) Adrenal adenoma; Translations: [Benign neoplasm of unspecified adrenal gland] Onset: 6 02-11-2021 Episodic Other diseases of kidney and ureters (20 sources) Renal impairment; Translations: [Disorder of kidney and ureter, unspecified] Onset: 1 03-08-2020 Episodic Other gastrointestinal disorders (20 sources) Burping; Translations: [Eructation] Onset: 1 09-12-2020 Episodic Other gastrointestinal disorders (1 source) Constipation, unspecified; Translations: [Constipation, unspecified] Onset: 4 Episodic Other infections; including parasitic (20 sources) Personal history of other infectious and parasitic diseases; Translations: [History of COVID-19] Onset: 2 04-06-2022 Episodic Other male genital disorders (20 sources) Disorder of prostate; Translations: [Disorder of prostate, unspecified] Onset: 6 10-23-2015 Episodic Other nervous system disorders (20 sources) Impairment of balance; Translations: [Other abnormalities of gait and mobility] Onset: 2 Episodic Other nervous system disorders (20 sources) Unsteady when standing; Translations: [Unsteadiness on feet] Onset: 3 10-27-2022 Episodic Residual codes; unclassified (20 sources) Family history of dementia; Translations: [Family history of other mental and behavioral disorders] Onset: 6 10-07-2015 Episodic Skin and subcutaneous tissue infections (11 sources) Cellulitis of toe; Translations: [Cellulitis of left toe] Onset: 4 06-20-2023 Episodic Spondylosis; intervertebral disc disorders; other back problems (20 sources) Chronic low back pain; Translations: [Chronic low back pain without sciatica, unspecified back pain laterality] Onset: 6 Episodic Unclassified (1 source) Stenosis Onset: 8 Unclassified (1 source) Onset: 2 08-01-2021 Unclassified (1 source) 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; Translations: [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] Onset: 5 Viral infection (7 sources) Disease caused by 2019-nCoV; Translations: [COVID-19] Onset: 2 Episodic Results Test Name Value Interpretation Reference Range Facility CNOVon 10-19-2024 CNOV Office Visit (OTFGFL ) ADARSH SORENSEN ([id number]) 1940 M Date Time Provider Department 10/19/24 10:30 AM [facility] During your visit today, we recorded the following information about you: Pulse Respiration Blood pressure Weight 60/minute 16/minute 133/78 75.8 kg Height 1.816 m Katherine Hernández DO 10/20/2024 1:56 PM Signed HPI: Adarsh Sorensen is a 83 year old male who presents to the office regarding his voice. 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 [...] 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 10/07/2015 DDD (degenerative disc disease), lumbar 10/07/2015 Degeneration of lumbar or lumbosacral intervertebral disc Diaphragmatic hernia without mention of obstruction or gangrene Elevated fasting blood sugar 11/18/2017 Enlargement of lymph nodes Erectile dysfunction 10/07/2015 Family history of dementia 10/07/2015 First degree AV block 01/12/2024 GERD without esophagitis 10/07/[address] 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 pt to go see Dr. 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 W/U with event monitor in past was normal per cardio. past medical history skin cancer forehead--unsure which kind Primary insomnia 10/07/2015 Psoriasis Rosacea 11/11/2016 Skin cancer screening 07/09/2023 Seeing [facility] Subclavian artery stenosis, right 06/17/2017 US 06/16/2017 50-99% Thrombocytopenia 10/07/2015 Waldenstrom's macroglobulinemia (HCC) 10/07/2015 Current Outpatient Medications Medication Sig Dispense Refill rosuvastatin (CRESTOR) 20 mg tablet Take 1 tablet by mouth once daily. 90 tablet 1 omeprazole (PRILOSEC) 40 mg capsule Take 1 capsule by mouth once daily. 90 capsule 1 lactulose 10 gram/15 mL solution Take 30 ml twice a day. 3785 mL 5 aspirin 81 mg chewable tablet Take 81 mg by mouth once daily. rituximab/hyaluronidase,leydi n (RITUXAN HYCELA SUBCUTANEOUS) Inject subcutaneously. albuterol HFA (PROAIR HFA) 90 mcg/actuation inhaler Inhale 2 Puffs as instructed every 6 hours as needed. 1 Each 1 No current facility-administered medications for this visit. ALLERGIES Allergen Reactions Elavil [Amitriptyli* Other: See Comments Tired and depressed feeling PAST SURGICAL HISTORY Procedure Laterality Date 2D ECHO (EXEP) 01/30/2014 EF=60%, LVH, no valve abnormalities COLONOSCOPY 09/21/2014 Dr. Bright, polyp, repeat 3 yrs COLONOSCOPY 02/17/2018 repeat 3 yrs, Dr. Bright COLONOSCOPY W/BIOPSY SINGLE/MULTIPLE 11/22/2007 ENDOSCOPY UPPER-EGD/M24 LAP, REVISION MIKA FUNDOPLASTY 03/20/[address] Layla [facility]ERSONS SURG CHOLECYSTECTOMY W/CHOLANGIOGRAPHY 04/12/2009 PAST SURGICAL HISTORY OF 11/2014 AAA repair PAST SURGICAL HISTORY OF 2015 both eyes cataract removal. PAST SURGICAL HISTORY OF 10/13/2017 right shoulder surgery per [place] [facility] UMBILICAL HRNA 5 YRS/> REDUCIBLE 04/12/2009 STRESS TEST 02/27/2014 WNL SOCIAL HISTORY[1] FAMILY HISTORY Problem Relation Age of Onset Multiple Sclerosis Brother living Colon Cancer Father 74 of metastatic brain CA Diabetes Father other (schiophrenia) Sister doing ok since e;ectroshock Alzheimer's Disease Mother Physical Exam BP 133/78 Pulse 60 Resp 16 Ht 181.6 cm (5' 11.5) Wt 75.8 kg (167 lb) BM (more content not included)... Normal [facility] CT ABDOMEN W IVCONon -31-[address]BDOMEN W IVCON * * *Final Report* * * DATE OF EXAM: Sep 14 2024 10:37AM [facility] 0533 - CT ABDOMEN W IVCON / PROCEDURE REASON: LUQ pain * * * * Physician Interpretation * * * * EXAMINATION: CT ABDOMEN WITH IV CONTRAST CLINICAL HISTORY: Left upper quadrant pain. TECHNIQUE: CT of the abdomen was performed using standard technique, scanning from just above the dome of the diaphragm to the iliac crest. MQ: CTAbdW_4 Contrast: IV: 100 ml of Omnipaque 350 Oral: 10 ml of Omni 350 10-25ml diluted with water CT Radiation dose: Integrated Dose-length product (DLP) for this visit = 305 mGy*cm. CT Dose Reduction Employed: Automated exposure control(AEC) and iterative recon COMPARISON: 01/21/2024 RESULT: Liver: The liver is of low density, when compared to the spleen, suggesting fatty infiltration of the liver. There is no obvious focal discrete hepatic mass. Biliary: The patient is status post cholecystectomy. There is biliary dilation, related to the cholecystectomy. Spleen: There are multiple subcentimeter lesions seen within the spleen which are too small to characterize. Calcified granuloma is also seen within the spleen. No splenomegaly. Pancreas: There is no obvious focal discrete pancreatic mass or ductal dilation. Adrenals:No mass. Kidneys: Mild nonspecific bilateral perinephric fat stranding. GI tract: Nonspecific wall thickening of the stomach likely relates to nondistention. Moderate stool burden. There are no dilated loops of bowel to suggest obstruction. Lymph nodes: Prominent, less than 1 cm abdominal lymph nodes are likely reactive. Mesentery/Peritoneum: No abdominal ascites. Retroperitoneum: No mass. Vasculature: There is an endovascular stent graft within the abdominal aorta. Bones/Soft Tissues: There is multilevel degenerative change seen within the lumbar spine. No destructive bone lesion. Lower thorax: There is dependent atelectasis. IMPRESSION: No acute abdominal or pelvic process is identified. The liver is of low density, when compared to the spleen, suggesting fatty infiltration of liver. Multiple subcentimeter splenic lesions are too small to characterize. Senior Controls Technician: KRISTINA Transcribe Date/Time: Sep 14 2024 3:52P Dictated by : AMNUELA CARBAJAL MD This examination was interpreted and the report reviewed and electronically signed by: MANUELA CARBAJAL MD on Sep 14 2024 9:27PM EST [id number] Normal [facility] CT Abdomen W contrast Krista 0 09-14-2024 IMPRESSION: No acute abdominal or pelvic process is identified. The liver is of low density, when compared to the spleen, suggesting fatty infiltration of liver. Multiple subcentimeter splenic lesions are too small to characterize. Senior Controls Technician: KRISTINA Transcribe Date/Time: Sep 14 2024 3:52P Dictated by : MANUELA CARBAJAL MD This examination was interpreted and the report reviewed and electronically signed by: MANUELA CARBAJAL MD on Sep 14 2024 9:27PM [facility] DIVISION OF RADIOLOGY * * *Final Report* * * DATE OF EXAM: Sep 14 2024 10:37AM [facility] - CT ABDOMEN W IVCON / PROCEDURE REASON: LUQ pain * * * * Physician Interpretation * * * * EXAMINATION: CT ABDOMEN WITH IV CONTRAST CLINICAL HISTORY: Left upper quadrant pain. TECHNIQUE: CT of the abdomen was performed using standard technique, scanning from just above the dome of the diaphragm to the iliac crest. MQ: CTAbdW_4 Contrast: IV: 100 ml of Omnipaque 350 Oral: 10 ml of Omni 350 10-25ml diluted with water CT Radiation dose: Integrated Dose-length product (DLP) for this visit = 305 mGy*cm. CT Dose Reduction Employed: Automated exposure control(AEC) and iterative recon COMPARISON: 01/21/2024 RESULT: Liver: The liver is of low density, when compared to the spleen, suggesting fatty infiltration of the liver. There is no obvious focal discrete hepatic mass. Biliary: The patient is status post cholecystectomy. There is biliary dilation, related to the cholecystectomy. Spleen: There are multiple subcentimeter lesions seen within the spleen which are too small to characterize. Calcified granuloma is also seen within the spleen. No splenomegaly. Pancreas: There is no obvious focal discrete pancreatic mass or ductal dilation. Adrenals:No mass. Kidneys: Mild nonspecific bilateral perinephric fat stranding. GI tract: Nonspecific wall thickening of the stomach likely relates to nondistention. Moderate stool burden. There are no dilated loops of bowel to suggest obstruction. Lymph nodes: Prominent, less than 1 cm abdominal lymph nodes are likely reactive. Mesentery/Peritoneum: No abdominal ascites. Retroperitoneum: No mass. Vasculature: There is an endovascular stent graft within the abdominal aorta. Bones/Soft Tissues: There is multilevel degenerative change seen within the lumbar spine. No destructive bone lesion. Lower thorax: There is dependent atelectasis. DIVISION OF RADIOLOGY Provider, Megan Camila Gray - 09/14/2024 * * *Final Report* * * DATE OF EXAM: Sep 14 2024 10:37AM [facility] 0533 - CT ABDOMEN W IVCON / PROCEDURE REASON: LUQ pain * * * * Physician Interpretation * * * * EXAMINATION: CT ABDOMEN WITH IV CONTRAST CLINICAL HISTORY: Left upper quadrant pain. TECHNIQUE: CT of the abdomen was performed using standard technique, scanning from just above the dome of the diaphragm to the iliac crest. MQ: CTAbdW_4 Contrast: IV: 100 ml of Omnipaque 350 Oral: 10 ml of Omni 350 10-25ml diluted with water CT Radiation dose: Integrated Dose-length product (DLP) for this visit = 305 mGy*cm. CT Dose Reduction Employed: Automated exposure control(AEC) and iterative recon COMPARISON: 01/21/2024 RESULT: Liver: The liver is of low density, when compared to the spleen, suggesting fatty infiltration of the liver. There is no obvious focal discrete hepatic mass. Biliary: The patient is status post cholecystectomy. There is biliary dilation, related to the cholecystectomy. Spleen: There are multiple subcentimeter lesions seen within the spleen which are too small to characterize. Calcified granuloma is also seen within the spleen. No splenomegaly. Pancreas: There is no obvious focal discrete pancreatic mass or ductal dilation. Adrenals:No mass. Kidneys: Mild nonspecific bilateral perinephric fat stranding. GI tract: Nonspecific wall thickening of the stomach likely relates to nondistention. Moderate stool burden. There are no dilated loops of bowel to suggest obstruction. Lymph nodes: Prominent, less than 1 cm abdominal lymph nodes are likely reactive. Mesentery/Peritoneum: No abdominal ascites. Retroperitoneum: No mass. Vasculature: There is an endovascular stent graft within the abdominal aorta. Bones/Soft Tissues: There is multilevel degenerative change seen within the lumbar spine. No destructive bone lesion. Lower thorax: There is dependent atelectasis. IMPRESSION IMPRESSION: No acute abdominal or pelvic process is identified. The liver is of low density, when compared to the spleen, suggesting fatty infiltration of liver. Multiple subcentimeter splenic lesions are too small to characterize. Senior Controls Technician: PSCB Transcribe Date/Time: Sep 14 2024 3:52P Dictated by : MANUELA CARBAJAL MD This examination was interpreted and the report reviewed and electronically signed by: MANUELA CARBAJAL MD on Sep 14 2024 9:27PM EST [facility] Radiology Study observation (narrative) [facility] CT Abdomen W contrast IVOrde red By: Ccf Provider on 09-14-2024 [facility] Creatinine and Glomerular fi ltration rate.predicted panel (S/P/Bld)on 09-14-2024 Creatinine [Mass/Vol] 1.15 mg/dL Normal 0.73-1.22 [facility] Comment on above: Order Comment: Speci men Type: BLOOD SPECIMENOrdering Facility: [facility] Address: [address] [place] [address] Performed By: #### 4 5066-8 ####[facility] [id number] [place] [address] [place] eGFRcr SerPlBld CKD-EPI 2020 63 mL/min/1.73m??? Normal >=60 [facility] Comment on above: Order Comment: Speci men Type: BLOOD SPECIMENOrdering Facility: [facility] Address: [address] [place] [address] Result Comment: Christelle mated Glomerular Filtration Rate (eGFR) is calculated using the 2020 CKD-EPI creatinine equation. This equation utilizes serum creatinine, sex, and age as parameters. The creatinine assay has traceable calibration to isotope dilution-mass spectrometry. Refer to KDIGO guidelines for clinical interpretation. In patients with unstable renal function, e.g. those with acute kidney injury, the eGFR may not accurately reflect actual GFR. Performed By: #### 4 5066-8 ####[facility] [id number] [place] [address] [place] US ABDOMEN COMPLETEon 2024 US ABDOMEN COMPLETE * * *Final Report* * * DATE OF EXAM: Sep 07 2024 10:23AM [facility] 1040 - US ABDOMEN COMPLETE / PROCEDURE REASON: LUQ pain * * * * Physician Interpretation * * * * EXAMINATION: COMPLETE ABDOMINAL ULTRASOUND CLINICAL HISTORY: Left upper quadrant pain TECHNIQUE: Sonography of the abdomen was performed. Images were obtained and stored in a permanent archive. MQ: UAbC_2 COMPARISON: CTA 02/10/2024 RESULT: Pancreas: Normal sonographic appearance. Portions obscured: Portions of the head, distal body and tail are suboptimally seen due to overlying bowel gas Lesions: None Liver: Portions of the right and left lobe are suboptimally seen due to overlying bowel gas Echotexture: Normal, homogeneous. Echogenicity: Normal Surface contour: Smooth Lesions: None. Biliary: No intrahepatic biliary duct dilation. CBD: 0.4 cm at the hilum. Gallbladder: Cholecystectomy Spleen: Length: 10.8 cm Lesions: None Right Kidney: -Renal length: 9.7 cm -Parenchyma: Normal parenchymal echogenicity. Normal parenchymal thickness. -Collecting system: No hydronephrosis. -Calculus: No echogenic, shadowing calculus. -Lesion: None. Left Kidney: -Renal length: 10.8 cm -Parenchyma: Normal parenchymal echogenicity. Normal parenchymal thickness. -Collecting system: No hydronephrosis. -Calculus: No echogenic, shadowing calculus. -Lesion: None. Bladder: Normal. IVC: Imaged segment is patent. Abdominal Aorta: Imaged segment is patent. Maximum Diameter: 2.7 cm. The distal abdominal aorta is ectatic Ascites: None. IMPRESSION: Examination is somewhat suboptimal due to overlying bowel gas Ectasia of the distal abdominal aorta. Otherwise normal abdominal ultrasound Senior Controls Technician: PSCB Transcribe Date/Time: Sep 08 2024 7:59A Dictated by : BASSEM FONG MD This examination was interpreted and the report reviewed and electronically signed by: BASSEM FONG MD on Sep 08 2024 8:02AM EST [id number] Normal [facility] CNOVon 08-30-2024 CNOV Office Visit (FAMPWS ) ADARSH SORENSEN ([id number]) 1940 M Date Time Provider Department 08/30/24 1:00 PM JARED ROBERTSONPWS During your visit today, we recorded the following information about you: Pulse Respiration Blood pressure Weight 60/minute 16/minute 120/64 78.3 kg Height 1.81 m Jared Robertson MD 08/30/2024 9:36 PM Addendum Adarsh Sorensen is a 83 year old male here for a Medicare wellness visit. Medicare Health Risk Assessment General Health Fair Exercise: Minutes/Day 30 min Exercise: Days/Week 5 days Alcohol: Daily Use 2-3 times a week Alcohol: Drinks/Day 1 or 2 Alcohol: 6 or more drinks Never Feel off balance Yes (due to neuropathy) Concerns: Teeth/Dentures No Concerns: Sexual function No Troubled by feelings None of the above Frequency: Eating healthy diet Nearly every day ADLs requiring help None of the above Safety precautions in home/vehicle No (no grab bars in bathroom. Does have rugs in home.) Smoke, vape, chews tobacco No Difficulty hearing No Difficulty seeing No Current Providers Specialists: I have reviewed specialist-related care of the patient in the medical record. Medical/Family history review Reviewed and updated problem list, medical/surgical/family/soci al history, medications, and allergies. Opioid use review Opioid Medications (last 90 days) No data to display Anxiety/Depression screening PHQ-2 Score: 1 (Lower risk for depression) LUCRECIA-2 Score: 2 (Lower risk for anxiety) Recommendation: no further intervention at this time. Pt does worry about his daughter. Cognitive screening Mini Cog Score: 4 Cognitive screening reviewed and No further action needed (score 3-5). Mini-Cog Patient asked to remember the following three words: Banana, [place] and Chair Visuospatial/Executive Functioning: Clock drawin/2 (Normal clock with all number in correct sequence and position, hands are correct = 2 points, inability or refusal to draw a clock = 0) Three word recall: 2/3 Total score: 4/5 (Total score = word recall score + clock draw score) Functional Observation Was the patient's Timed Up AND Go test unsteady or >= 12 seconds? No Advance Care Planning Surrogate decision maker and/or advance care plan documented Measurements BP 120/64 (BP Site: Left Arm, BP Position: Sitting, BP Cuff Size: Regular Adult) Pulse 60 Resp 16 Ht 181 cm (5' 11.25) Wt 78.3 kg (172 lb 9.6 oz) BMI 23.90 kg/m? Vision Screening: Follows with optometry/ophthalmology Assessment/Plan Medicare annual wellness visit, subsequent (Z00.00) - Counseled on healthy diet and regular exercise - Fall avoidance information provided - Personalized prevention plan provided See below. Chief Complaint Patient presents with: Medicare Wellness Exam HPI Adarsh Sorensen is a 83 year old male who presents here today for a medicare wellness and a routine follow up. Patient with Hx of AAA, Carotid artery disease, CAD, GERD, funez's, elevated fasting blood sugar, Hyperlipidemia, Waldenstrom's macroglobulinemia, Anemia, thrombocytopenia, allergic Rhinitis, insomnia, chronic bronchitis, IBS, BPH as well as those reviewed and addressed below and in ROS. Adarsh reports a persistent burning sensation in the stomach since March, which he describes as severe heartburn. This sensation is present throughout the day and occasionally wakes him at night. He has tried omeprazole and [id number]-tnoxsla Nexium, both of which provided temporary relief but are no longer effective. He denies current use of any heartburn medications. He also reports a hoarse voice, which he attributes to acid reflux, and occasional sore throats. He denies experiencing a sour or acid taste in the morning, but notes dry mouth. He denies any lumps or swelling in the neck, and denies wheezing or dyspnea. He has not needed to use his rescue inhaler and denies hemoptysis or colored mucus production. Adarsh also reports irregular bowel movements, with periods of constipation followed by episodes of watery diarrhea. He has been trying to increase his fiber intake by eating broccoli and green beans, but this has not made a difference. He denies melena or hematochezia. He reports some nausea, but not frequent, and denies emesis. He has lost 5 pounds since March. Adarsh also reports tremors in his legs and hands, which are getting worse. He describes these as muscle twitches in the legs. In the hands they are more noticeable when he is writing. He denies any changes in his tolerance to heat or cold, and denies any recent increase in thirst. He denies syncope, seizures, or tremors. He also reports occasional palpitations, with his heart rate varying from 40 to 80 bpm, but denies seeing a quality analyst/technical writer. Adarsh also reports difficulty sleeping, taking a full tablet of trazodone at night, which helps him (more content not included)... Normal [facility] CBC W Auto Differential pane l (Bld)on 08-16-2024 Basophils (Bld) [#/Vol] 10*3/uL Normal <0.11 [facility] Comment on above: Order Comment: Speci men Type: BLOOD SPECIMEN Ordering Facility: [facility] Address: [address] [place] [address] Performed By: #### 1 9123-9, #### [facility] CLIA [id number] [address] [place] [address] [place] Basophils/100 WBC (Bld) 0.4 % Normal [facility] Comment on above: Order Comment: Speci men Type: BLOOD SPECIMEN Ordering Facility: [facility] Address: [address] [place] [address] Performed By: #### 1 9123-9, #### [facility] CLIA [id number] [address] [place] [address] [place] Differential cell count method Nom (Bld) Auto Normal [facility] Comment on above: Order Comment: Speci men Type: BLOOD SPECIMEN Ordering Facility: [facility] Address: [address] [place] [address] Performed By: #### 1 239, #### [facility] CLIA [id number] [address] [place] [address] [place] Eosinophils (Bld) [#/Vol] 0.13 10*3/uL Normal <0.46 [facility] Comment on above: Order Comment: Speci men Type: BLOOD SPECIMEN Ordering Facility: [facility] Address: [address] [place] [address] Performed By: #### 1 9123-9, #### [facility] CLIA [id number] [address] [place] [address] [place] Eosinophils/100 WBC (Bld) 2.5 % Normal [facility] Comment on above: Order Comment: Speci men Type: BLOOD SPECIMEN Ordering Facility: [facility] Address: [address] [place], [place] [id number] Performed By: #### 1 9123-9, 63744-6 #### [facility] CLIA [id number] [address] [place] [address] [place] Erythrocyte distribution width (RBC) [Ratio] 12.7 % Normal 11.5-15.0 [facility] Comment on above: Order Comment: Speci men Type: BLOOD SPECIMEN Ordering Facility: [facility] Address: [address] [place] [address] Performed By: #### 1 9123-9, 33807-1 #### [facility] CLIA [id number] [address] [place] [address] [place] Hematocrit (Bld) [Volume fraction] 39.9 % Normal 39.0-51.0 [facility] Comment on above: Order Comment: Speci men Type: BLOOD SPECIMEN Ordering Facility: [facility] Address: [address] [place] [address] Performed By: #### 1 9123-9, 81732-0 #### [facility] CLIA [id number] [address] [place] [address] [place] Hemoglobin (Bld) [Mass/Vol] 14.1 g/dL Normal 13.0-17.0 [facility] Comment on above: Order Comment: Speci men Type: BLOOD SPECIMEN Ordering Facility: [facility] Address: [address] [place] [address] Performed By: #### 1 9123-9, 07564-9 #### [facility] CLIA [id number] [address] [place] [address] [place] Immature granulocytes (Bld) [#/Vol] 10*3/uL Normal <0.10 [facility] Comment on above: Order Comment: Speci men Type: BLOOD SPECIMEN Ordering Facility: [facility] Address: [address] [place] [address] Performed By: #### 1 9123-9, 28200-8 #### [facility] CLIA [id number] [address] [place] [address] [place] Immature granulocytes/100 WBC (Bld) 0.2 % Normal [facility] Comment on above: Order Comment: Speci men Type: BLOOD SPECIMEN Ordering Facility: [facility] Address: [address] [place] [address] Performed By: #### 1 23-9, 22058-1 #### [facility] CLIA [id number] [address] [place] [address] [place] Lymphocytes (Bld) [#/Vol] 0.75 10*3/uL Low 1.00-4.00 [facility] Comment on above: Order Comment: Speci men Type: BLOOD SPECIMEN Ordering Facility: [facility] Address: [address] [place] [address] Performed By: #### 1 9123-9, #### [facility] CLIA [id number] [address] [place] [address] [place] Lymphocytes/100 WBC (Bld) 14.3 % Normal [facility] Comment on above: Order Comment: Speci men Type: BLOOD SPECIMEN Ordering Facility: [facility] Address: [address] [place] [address] Performed By: #### 1 9123-9, #### [facility] CLIA [id number] [address] [place] [address] [place] MCH (RBC) [Entitic mass] 32.7 pg Normal 26.0-34.0 [facility] Comment on above: Order Comment: Speci men Type: BLOOD SPECIMEN Ordering Facility: [facility] Address: [address] [place] [address] Performed By: #### 1 9123-9, 01706-1 #### [facility] CLIA [id number] [address] [place] [address] [place] MCHC (RBC) [Mass/Vol] 35.3 g/dL Normal 30.5-36.0 [facility] Comment on above: Order Comment: Speci men Type: BLOOD SPECIMEN Ordering Facility: [facility] Address: [address] [place] [address] Performed By: #### 1 9123-9, 94176-5 #### [facility] CLIA [id number] [address] [place] [address] [place] MCV (RBC) [Entitic vol] 92.6 fL Normal 80.0-100.0 [facility] Comment on above: Order Comment: Speci men Type: BLOOD SPECIMEN Ordering Facility: [facility] Address: [address] [place] [address] Performed By: #### 1 9123-9, 22562-0 #### [facility] CLIA [id number] [address] [place] [address] [place] Monocytes (Bld) [#/Vol] 0.59 10*3/uL Normal <0.87 [facility] Comment on above: Order Comment: Speci men Type: BLOOD SPECIMEN Ordering Facility: [facility] Address: [address] [place] [address] Performed By: #### 1 9123-9, 24062-5 #### [facility] CLIA [id number] [address] [place] [address] [place] Monocytes/100 WBC (Bld) 11.3 % Normal [facility] Comment on above: Order Comment: Speci men Type: BLOOD SPECIMEN Ordering Facility: [facility] Address: [address] [place] [address] Performed By: #### 1 9123-9, 23881-2 #### [facility] CLIA [id number] [address] [place] [address] [place] Neutrophils (Bld) [#/Vol] 3.73 10*3/uL Normal 1.45-7.50 [facility] Comment on above: Order Comment: Speci men Type: BLOOD SPECIMEN Ordering Facility: [facility] Address: [address] [place] [address] Performed By: #### 1 9123-9, 29962-4 #### [facility] CLIA [id number] [address] [place] [address] [place] Neutrophils/100 WBC (Bld) 71.3 % Normal [facility] Comment on above: Order Comment: Speci men Type: BLOOD SPECIMEN Ordering Facility: [facility] Address: [address] [place] [address] Performed By: #### 1 9123-9, 17036-7 #### [facility] CLIA [id number] [address] [place] [address] [place] Nucleated RBC (Bld) [#/Vol] 10*3/uL Normal <0.01 [facility] Comment on above: Order Comment: Speci men Type: BLOOD SPECIMEN Ordering Facility: [facility] Address: [address] [place] [address] Performed By: #### 1 9123-9, 09963-2 #### [facility] CLIA [id number] [address] [place] [address] [place] Nucleated RBC/100 WBC (Bld) [Ratio] 0.0 /100 WBC Normal [facility] Comment on above: Order Comment: Speci men Type: BLOOD SPECIMEN Ordering Facility: [facility] Address: [address] [place] [address] Performed By: #### 1 9123-9, 81966-9 #### [facility] CLIA [id number] [address] [place] [address] [place] Platelet mean volume (Bld) [Entitic vol] 10.1 fL Normal 9.0-12.7 [facility] Comment on above: Order Comment: Speci men Type: BLOOD SPECIMEN Ordering Facility: [facility] Address: [address] [place] [address] Performed By: #### 1 9123-9, 59985-9 #### [facility] CLIA [id number] [address] [place] [address] [place] Platelets (Bld) [#/Vol] 151 10*3/uL Normal 150-400 [facility] Comment on above: Order Comment: Speci men Type: BLOOD SPECIMEN Ordering Facility: [facility] Address: [address] [place], [place] [address] Performed By: #### 1 9123-9, 80316-8 #### [facility] CLIA [id number] [address] [place] [address] [place] RBC (Bld) [#/Vol] 4.31 10*6/uL Normal 4.20-6.00 [facility] Comment on above: Order Comment: Speci men Type: BLOOD SPECIMEN Ordering Facility: [facility] Address: [address] [place], [place] [address] Performed By: #### 1 9123-9, 74719-4 #### [facility] CLIA [id number] [address] [place] [address] [place] WBC (Bld) [#/Vol] 5.23 10*3/uL Normal 3.70-11.00 [facility] Comment on above: Order Comment: Speci men Type: BLOOD SPECIMEN Ordering Facility: [facility] Address: [address] [place], [place] [address] Performed By: #### 1 9123-9, 79674-4 #### [facility] CLIA [id number] [address] [place] [address] [place] Comprehensive metabolic 2000 panelon 08-16-2024 Albumin [Mass/Vol] 4.3 g/dL Normal 3.9-4.9 [facility] Comment on above: Order Comment: Speci men Type: BLOOD SPECIMEN Ordering Facility: [facility] Address: [facility] [place] [address] Performed By: #### 1 9123-9, 46765-2 #### [facility] CLIA [id number] [address] [place] [address] [place] ALP [Catalytic activity/Vol] 90 U/L Normal 38-113 [facility] Comment on above: Order Comment: Speci men Type: BLOOD SPECIMEN Ordering Facility: [facility] Address: [address] [place] [address] Performed By: #### 1 23-9, 28711-1 #### [facility] CLIA [id number] [address] [place] [address] [place] ALT [Catalytic activity/Vol] 12 U/L Normal 10-54 [facility] Comment on above: Order Comment: Speci men Type: BLOOD SPECIMEN Ordering Facility: [facility] Address: [address] [place] [address] Performed By: #### 1 9123-9, 25155-9 #### [facility] CLIA [id number] [address] [place] [address] [place] Anion gap [Moles/Vol] 10 mmol/L Normal 8-15 [facility] Comment on above: Order Comment: Speci men Type: BLOOD SPECIMEN Ordering Facility: [facility] Address: [address] [place] [address] Performed By: #### 1 23-9, 37461-6 #### [facility] CLIA [id number] [address] [place] [address] [place] AST [Catalytic activity/Vol] 18 U/L Normal 14-40 [facility] Comment on above: Order Comment: Speci men Type: BLOOD SPECIMEN Ordering Facility: [facility] Address: [address] [place] [address] Performed By: #### 1 23-9, 66256-1 #### [facility] CLIA [id number] [address] [place] [address] [place] Bilirubin [Mass/Vol] 0.9 mg/dL Normal 0.2-1.3 [facility] Comment on above: Order Comment: Speci men Type: BLOOD SPECIMEN Ordering Facility: [facility] Address: [address] [place] [address] Performed By: #### 1 23-9, #### [facility] CLIA [id number] [address] [place] [address] [place] Calcium [Mass/Vol] 9.4 mg/dL Normal 8.5-10.2 [facility] Comment on above: Order Comment: Speci men Type: BLOOD SPECIMEN Ordering Facility: [facility] Address: [address] [place] [address] Performed By: #### 1 239, #### [facility] CLIA [id number] [address] [place] [address] [place] Chloride [Moles/Vol] 102 mmol/L Normal 98-107 [facility] Comment on above: Order Comment: Speci men Type: BLOOD SPECIMEN Ordering Facility: [facility] Address: [address] [place] [address] Performed By: #### 1 9123-9, 32612-8 #### [facility] CLIA [id number] [address] [place] [address] [place] CO2 [Moles/Vol] 26 mmol/L Normal 22-30 [facility] Comment on above: Order Comment: Speci men Type: BLOOD SPECIMEN Ordering Facility: [facility] Address: [address] [place] [address] Performed By: #### 1 9123-9, 86462-2 #### [facility] CLIA [id number] [address] [place] [address] [place] Creatinine [Mass/Vol] 1.18 mg/dL Normal 0.73-1.22 [facility] Comment on above: Order Comment: Kory espinosa Type: BLOOD SPECIMEN Ordering Facility: [facility] Address: [address] [place] [address] Performed By: #### 1 9123-9, 26452-2 #### [facility] CLIA [id number] [address] [place] [address] [place] Creatinine and Glomerular filtration rate.predicted panel (S/P/Bld) 61 mL/min/1.73m??? Normal >=60 [facility] Comment on above: Order Comment: Kory espinosa Type: BLOOD SPECIMEN Ordering Facility: [facility] Address: [address] [place] [address] Result Comment: Christelle mated Glomerular Filtration Rate (eGFR) is calculated using the 2020 CKD-EPI creatinine equation. This equation utilizes serum creatinine, sex, and age as parameters. The creatinine assay has traceable calibration to isotope dilution-mass spectrometry. Refer to KDIGO guidelines for clinical interpretation. In patients with unstable renal function, e.g. those with acute kidney injury, the eGFR may not accurately reflect actual GFR. Performed By: #### 1 9123-9, 03007-8 #### [facility] CLIA [id number] [address] [place] [address] [place] Glucose [Mass/Vol] 73 mg/dL Low 74-99 [facility] Comment on above: Order Comment: Kory espinosa Type: BLOOD SPECIMEN Ordering Facility: [facility] Address: [address] [place] [address] Result Comment: The [place] Diabetes Association (ADA) provides guidance for cutoff values for fasting glucose and random glucose. The ADA defines fasting as no caloric intake for at least 8 hours. Fasting plasma glucose results between 100 to 125 [...] Standards of Medical Care in Diabetes 2016, [place] Diabetes Association. Diabetes Care. 2016.39(Suppl 1). Performed By: #### 1 9123-9, #### [facility] CLIA [id number] [address] [place] [address] [place] Potassium [Moles/Vol] 4.5 mmol/L Normal 3.7-5.1 [facility] Comment on above: Order Comment: Speci men Type: BLOOD SPECIMEN Ordering Facility: [facility] Address: [address] [place] [id number] Performed By: #### 1 9123-9, #### [facility] CLIA [id number] [address] [place] [address] [place] Protein [Mass/Vol] 6.4 g/dL Normal 6.3-8.0 [facility] Comment on above: Order Comment: Speci men Type: BLOOD SPECIMEN Ordering Facility: [facility] Address: [address] [place] [id number] Performed By: #### 1 9123-9, #### [facility] CLIA [id number] [address] [place] [address] [place] Sodium [Moles/Vol] 138 mmol/L Normal 136-144 [facility] Comment on above: Order Comment: Speci men Type: BLOOD SPECIMEN Ordering Facility: [facility] Address: [address] [place] [address] Performed By: #### 1 9123-9, #### [facility] CLIA [id number] [address] [place] [address] [place] Urea nitrogen [Mass/Vol] 18 mg/dL Normal 9-24 [facility] Comment on above: Order Comment: Speci men Type: BLOOD SPECIMEN Ordering Facility: [facility] Address: [address] [id number] Performed By: #### 1 9123-9, 05132-4 #### [facility] [id number] [address] [place] [address] [place] HbA1c (Bld)on 08-16-2024 Average glucose Estimated from glycated hemoglobin (Bld) [Mass/Vol] 88 mg/dL Normal [facility] Comment on above: Order Comment: Kory espinosa Type: BLOOD SPECIMENOrdering Facility: [facility] Address: [address] [place] [address] Result Comment: eAG: (Estimated average glucose) is a calculated value from HgbA1c and is site safety representative of the average blood glucose level in the last 2-3 month period. Performed By: #### 5 5454-3 ####[facility] LABIA [id number] [address] STATES OF [facility] HbA1c (Bld) [Mass fraction] 4.7 % Normal 4.3-5.6 [facility] Comment on above: Order Comment: Kory espinosa Type: BLOOD SPECIMENOrdering Facility: [facility] Address: [address] [place] [address] Result Comment: Amer [place] Diabetes Association guidelines indicate that patients with HgbA1c in the range 5.7-6.4% are at increased risk for development of diabetes, and intervention by lifestyle modification may be beneficial. HgbA1c greater or equal to 6.5% is considered diagnostic of diabetes. Performed By: #### 5 5454-3 ####[facility] LABCLIA [id number] [place] [id number] [facility] OF [place] LIPID PANEL, NONFASTINGon Cholesterol [Mass/Vol] 160 mg/dL Normal <200 [facility] Comment on above: Order Comment: Kory espinosa Type: BLOOD SPECIMENOrdering Facility: [facility] Address: [address] [place] [address] Result Comment: <200 mg/dL, Desirable 200-239 mg/dL, Borderline high >239 mg/dL, High Performed By: #### L IP, 2131-10, 3 ####[facility] LABCLIA [id number] [place] [address] [place] HDL CHOLESTEROL, NF 56 mg/dL Normal >39 [facility] Comment on above: Order Comment: Speci men Type: BLOOD SPECIMENOrdering Facility: [facility] Address: [address] [place] [address] Result Comment: 40-5 9 mg/dL, Acceptable >59 mg/dL, High: Negative risk factor for coronary heart disease <40 mg/dL, Low: Positive risk factor for coronary heart disease Performed By: #### L IPOLGA, 2131-10, 3015-04 ####[facility] LABCLIA [id number] [address] OF [facility] LDL CHOLESTEROL CALCULATED, NF 84 mg/dL Normal <100 [facility] Comment on above: Order Comment: Briandai francisca Type: BLOOD SPECIMENOrdering Facility: [facility] Address: [address] [place] [address] Result Comment: <100 mg/dL, Optimal 100-129 mg/dL, Near optimal/above optimal 130-159 mg/dL, Borderline high 160-189 mg/dL, High >189 mg/dL, Very high Secondary prevention optimal LDL Cholesterol levels are recommended to be <70 mg/dL LDL cholesterol is calculated using the Mendoza-NIH equation. Performed By: #### L IPOLGA, 2131-10, 3015-04 ####[facility] LABCLIA [id number] [address] [place] LDL/HDL RATIO, NF 1.50 mg/dL Normal <2.54 [facility] Comment on above: Order Comment: Kory men Type: BLOOD SPECIMENOrdering Facility: [facility] Address: [address] [place] [address] Result Comment: Refe rence: 1. National Cholesterol Education Program ATP III Guideline At-A-Glance Quick Desk Reference: National Heart, Lung, and Blood [place]. National Institutes of Health. 2001: NIH Publication No. 01-3305. 2. An International Atherosclerosis Society position paper: global recommendations for the management of dyslipidemia: executive summary, Atherosclerosis. 2014: 232(2):410-413. Performed By: #### L LETA, 2131-10, 3015-04 ####[facility] LABCLIA [id number] [place] [id number] [place] NON HDL CHOL, NF 104 mg/dL Normal <130 [facility] Comment on above: Order Comment: Speci men Type: BLOOD SPECIMENOrdering Facility: [facility] Address: [address] [place] [address] Result Comment: <130 mg/dL, Optimal 130-159 mg/dL, Near optimal/above optimal 160-189 mg/dL, Borderline high 190-219 mg/dL, High >219 mg/dL, Very high Secondary prevention optimal non HDL Cholesterol levels are recommended to be <100 mg/dL Performed By: #### L LETA, 2131-10, 3015-04 ####[facility] LABCLIA [id number] [address] STATES OF [place] T CHOL/HDL RATIO NF 2.86 mg/dL Normal <5.10 [facility] Comment on above: Order Comment: Kory espinosa Type: BLOOD SPECIMENOrdering Facility: [facility] Address: [address] [place] [address] Performed By: #### L LETA, 2131-10, 3015-04 ####[facility] LABCLIA [id number] [address] STATES OF [place] TRIGLYCERIDES, NF 110 mg/dL Normal <150 [facility] Comment on above: Order Comment: Kory men Type: BLOOD SPECIMENOrdering Facility: [facility] Address: [address] [place] [address] Result Comment: <150 mg/dL, Normal 150-199 mg/dL, Borderline high 200-499 mg/dL, High >499 mg/dL, Very high Performed By: #### L LETA, 2131-10, 3016-3 ####[facility] LABCLIA [id number] [address] [address] [place] VLDL CHOLESTEROL, NF 17 mg/dL Normal <30 [facility] Comment on above: Order Comment: Speci men Type: BLOOD SPECIMENOrdering Facility: [facility] Address: [address] [place] [address] Performed By: #### L IPOLGA, 2131-10, 3 ####[facility] LABCLIA [id number] [address] [address] [place] Magnesium SerPl-mCncon 08-16 Magnesium [Mass/Vol] 2.2 mg/dL Normal 1.7-2.3 [facility] Comment on above: Order Comment: Speci men Type: BLOOD SPECIMEN Ordering Facility: [facility] Address: [address] [place] [address] Performed By: #### 1 9123-9, 45191-5 #### [facility] CLIA [id number] [address] [place] [address] [place] TSH SerPl-aCncon 08-16-2024 TSH Qn 3.230 m[IU]/L Normal 0.270-4.200 [facility] Comment on above: Order Comment: Speci men Type: BLOOD SPECIMENOrdering Facility: [facility] Address: [address] [place] [address] Performed By: #### L IPOLGA, 2131-10, 3 ####[facility] LABIA [id number] [place] [id number] [place] Urinalysis complete panel (U )on 08-16-2024 Bacteria LM.HPF (Urine sed) [#/Area] Negative Normal Negative [facility] Comment on above: Order Comment: Speci men Type: URINE SPECIMENOrdering Facility: [facility] Address: [address] [place] [address] Performed By: #### 2 4356-8 ####[facility] LABCLIA [id number] [address] [place] [address] [place] Bilirubin Ql (U) Negative Normal Negative [facility] Comment on above: Order Comment: Speci men Type: URINE SPECIMENOrdering Facility: [facility] Address: [address] [place] [address] Performed By: #### 2 4356-8 ####[facility] LABCLIA [id number] [address] [place] [address] [place] Clarity (Unsp spec) Clear Normal Clear [facility] Comment on above: Order Comment: Speci men Type: URINE SPECIMENOrdering Facility: [facility] Address: [address] [place] [address] Performed By: #### 2 4356-8 ####[facility] LABCLIA [id number] [place] [id number] [place] [facility] Color (U) Yellow Normal Yellow [facility] Comment on above: Order Comment: Speci men Type: URINE SPECIMENOrdering Facility: [facility] Address: [address] [place] [address] Performed By: #### 2 4356-8 ####[facility] LABCLIA [id number] [address] [place] [address] [place] Epithelial cells LM.HPF (Urine sed) [#/Area] None Seen Normal [facility] Comment on above: Order Comment: Speci men Type: URINE SPECIMENOrdering Facility: [facility] Address: [address] [place] [address] Performed By: #### 2 4356-8 ####[facility] LABCLIA [id number] [address], [facility] [place] Glucose Test strip (U) [Mass/Vol] Negative Normal Negative [facility] Comment on above: Order Comment: Speci men Type: URINE SPECIMENOrdering Facility: [facility] Address: [address] [place] [address] Performed By: #### 2 4356-8 ####[facility] LABCLIA [id number] [address], [place] [address] [place] Hemoglobin Ql (U) Negative Normal Negative [facility] Comment on above: Order Comment: Speci men Type: URINE SPECIMENOrdering Facility: [facility] Address: [address] [place] [address] Performed By: #### 2 4356-8 ####[facility] LABCLIA [id number] [address], [place] [address] [place] Hyaline casts (Urine sed) [#/Area] 0 /[LPF] Normal 0 /LPF [facility] Comment on above: Order Comment: Speci men Type: URINE SPECIMENOrdering Facility: [facility] Address: [address] [place] [address] Performed By: #### 2 4356-8 ####[facility] LABCLIA [id number] [place] [address] [place] Ketones Ql (U) Negative Normal Negative [facility] Comment on above: Order Comment: Speci men Type: URINE SPECIMENOrdering Facility: [facility] Address: [address] [place] [address] Performed By: #### 2 4356-8 ####[facility] LABCLIA [id number] [place] [address] [place] Leukocyte esterase Test strip Ql (U) Negative Normal Negative [facility] Comment on above: Order Comment: Speci men Type: URINE SPECIMENOrdering Facility: [facility] Address: [address] [place] [address] Performed By: #### 2 4356-8 ####[facility] LABCLIA [id number] [address], [facility]95 [place] Nitrite Ql (U) Negative Normal Negative [facility] Comment on above: Order Comment: Speci men Type: URINE SPECIMENOrdering Facility: [facility] Address: [address] [place] [address] Performed By: #### 2 4356-8 ####[facility] LABIA [id number] [place] [address] [place] pH (U) 5.5 [pH] Normal <8.5 [facility] Comment on above: Order Comment: Speci men Type: URINE SPECIMENOrdering Facility: [facility] Address: [address] [place] [address] Performed By: #### 2 4356-8 ####[facility] LABIA [id number] [place] [address] [place] Protein (U) [Mass/Vol] Negative Normal Negative [facility] Comment on above: Order Comment: Speci men Type: URINE SPECIMENOrdering Facility: [facility] Address: [address] [place] [address] Performed By: #### 2 4356-8 ####[facility] LABIA [id number] [place] [address] [place] RBC LM.HPF (Urine sed) [#/Area] 0-2 /HPF Normal 0-2 /HPF [facility] Comment on above: Order Comment: Speci men Type: URINE SPECIMENOrdering Facility: [facility] Address: [address] [place] [address] Performed By: #### 2 4356-8 ####[facility] LABIA [id number] [place] [id number] [place] Specific gravity (U) [Rel density] 1.017 Normal 1.005-1.030 [facility] Comment on above: Order Comment: Speci men Type: URINE SPECIMENOrdering Facility: [facility] Address: [address] [place] [address] Performed By: #### 2 4356-8 ####[facility] LABCLIA [id number] [place] [address] [place] Urobilinogen Ql (U) 1.0 EU/dL Normal 0.2-1.0 EU/dL [facility] Comment on above: Order Comment: Speci men Type: URINE SPECIMENOrdering Facility: [facility] Address: [address] [place] [address] Performed By: #### 2 4356-8 ####[facility] LABCLIA [id number] [place] [address] [place] WBC LM.HPF (Urine sed) [#/Area] 0-5 /HPF Normal 0-5 /HPF [facility] Comment on above: Order Comment: Speci men Type: URINE SPECIMENOrdering Facility: [facility] Address: [address] [place] [address] Performed By: #### 2 4356-8 ####[facility] LABCLIA [id number] [place] [address] [place] Vit B12 SerPl-ncon 025 Cobalamin (Vitamin B12) [Mass/Vol] 363 pg/mL Normal 232-1245 [facility] Comment on above: Order Comment: Speci men Type: BLOOD SPECIMENOrdering Facility: [facility] Address: [address] [place] [address] Performed By: #### L IPNF, 2132-9, 3016-3 ####[facility] LABCLIA [id number] [place] [address] [place] CD19 ABSOLUTE COUNTon 2024 CD3-CD19+ cells (Bld) [#/Vol] 1 cells/uL Low 75-660 [facility] Comment on above: Order Comment: Speci men Type: BLOOD SPECIMENOrdering Facility: [facility] Address: [address] [place] [address] Performed By: #### A BS19 ####[facility] LABCLIA [id number] [place] [address] [place] CD3-CD19+ cells/100 cells (Bld) 1 % Low 5-22 [facility] Comment on above: Order Comment: Kory espinosa Type: BLOOD SPECIMENOrdering Facility: [facility] Address: [address] [place] [address] Performed By: #### A BS19 ####[facility] LABCLIA [id number] [place] [address] [place] Lymphocytes/100 WBC FC (Bld) Normal [facility] Comment on above: Order Comment: Kory espinosa Type: BLOOD SPECIMENOrdering Facility: [facility] Address: [address] [place] [address] Performed By: #### A BS19 ####[facility] LABCLIA [id number] [place] [address] [place] IgG SerPl-mCncon 07-18-2024 IgG [Mass/Vol] 533 mg/dL Low 700-1600 [facility] Comment on above: Order Comment: Kory espinosa Type: BLOOD SPECIMENOrdering Facility: [facility] Address: [address] [place] [address] Performed By: #### 2 465-3 ####[facility] LABIA [id number] [place] [address] [place] MAG ANTIBODY,IGM ELISAon MAG ANTIBODY, IGM FARIDA >24885 High 0-999 [facility] Comment on above: Order Comment: Briandabrittani espinosa Type: BLOOD SPECIMENOrdering Facility: [facility] Address: [address] [place] [address] Result Comment: INTE RPRETIVE INFORMATION: MAG Antibody, IgM FARIDA An elevated IgM antibody concentration greater than 999 TU against myelin-associated glycoprotein (MAG) suggests active demyelination in peripheral neuropathy. A normal concentration (less than 999 TU) generally rules out an anti-MAG antibody-associated peripheral neuropathy. TU=Titer Units This test was developed and its performance characteristics determined by [facility]. It has not been cleared or approved by the US Food and Drug Administration. This test was performed in a CLIA certified laboratory and is intended for clinical purposes. Performed By: [facility] [address] [place] [address] Websphere Developer: Marcell Matthews MD, PhD CLIA Number: [id number] Performed By: #### M AGIGM ####[facility] LABORATORIESCLIA [id number] [place] [address] CNOVon 07-17-2024 CNOV Office Visit (NENMMN ) ADARSH SORENSEN ([id number]) 1940 M Date Time Provider Department 07/17/24 11:[address] [facility] During your visit today, we recorded the following information about you: Pulse Blood pressure Weight Height 46/minute 136/79 80.7 kg 1.829 m Maxwell Wharton DO 07/17/2024 12:36 PM Signed Follow-Up/Established Patient Visit - [facility] SERVICE DATE: July 17, 2024 SERVICE TIME: 11:00am Reason for Return Visit: This is Mr. 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 This patient was last seen on here on 08/23/23. ASSESSMENT / PLAN: This is Adarsh Sorensen, a 83 year old male with: 1. Anti-MAG demyelinating polyneuropathy 2. Mild folate deficiency 3. 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 Essential tremor L hand 5. Degenerative lumbar spine disease -Riuximab 1000mg q6mo - discussed if numbers still doing well to decrease to 500mg q6mo. -Recheck MAG, CD19, IgG levels -Discussed treatment options for ET - he doesn't feel need for trial of propranolol at this time -Monitor lumbar spine symptoms -RTC in 6 months -When available, results of the above investigations and possible further recommendations will be communicated to the patient via telephone/MyChart. Patient to call office if not contacted after expected testing turnaround time. 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 He developed unsteadiness when walking and had a fall. 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 04/06/23: Rituxan 1000mg dose 1 04/21/23: Rituxan 1000mg dose 2 09/21/23: Rituxan 1000mg dose 3 03/07/24: Rituxan 1000mg dose 4 Interval HPI: Getting a lot of tingling in the L > > R foot. Minimal pain. Also some very rare tingling/pain in the back of both thighs. Balance perhaps minimally worse but walking overall has been doing well. Bad heart burn since March. Waiting to follow-up with GI. Tolerating Rituxan well. No worsening infections he notes. Previous Data: Lab Results Component Value Date Hemoglobin A1C 4.8 01/08/2024 Vitamin B12 399 04/03/2023 MPA Result M protein is present. (A) 03/20/2023 MPA Georgiana/Lambda Ratio 3.44 (H) 02/25/2012 Interpretation (MPA) 03/20/2023 Atypical restricted bands are present in the IgM and kappa regions. Consistent with IgM kappa monoclonal gammopathy. Staff Review ([facility]) Reviewed by Dr. Jaren Hagan MD 03/20/2023 K/L Ratio, Serum 7.14 (H) 03/20/2023 Sed Rate, Westergren 26 (H) 07/02/2023 CRP <0.3 04/03/2024 Angiotensin Converting Enzyme 24 03/20/2023 CK 60 11/26/2001 TSH 3.770 05/12/2023 Asialo-GM1 Antibodies, IgG/IgM 7 03/20/2023 GM1 Antibodies, IgG/IgM 8 03/20/2023 GM2 Antibodies 8 03/20/2023 GD1a Antibodies, IgG/IgM 37 03/20/2023 GD1b Antibodies, IgG/IgM 20 03/20/2023 GQ1b Antibodies, IgG/IgM 19 03/20/2023 Lab Results Component Value Date Hepatitis B Core Ab, Total Negative 09/21/2023 Hep C Antibody IA Negative 09/21/2023 Hep B Surface Ab, Qual Negative 09/21/202303/2023 VEGF: 35 MAG Ab IgM, FARIDA: >70,000(H) Contactin, Neurofascin: Negative 06/2023 MAG Ab IgM, FARIDA: >70,000 11/2023 MAG Ab IgM: > 70,000 EMG/NCS (03/19/23): -Absent sensory responses in the upper and lower limbs, sparing the superficial radial response. -Low amplitude motor responses in the lower limb, with notably prolonged distal latencies, slowed conduction velocities, evidence of conduction block (52% at the peroneal recording EDB, 36% at the tibial recording AH) with temporal dispersion. -The median motor response is prolonged, but normal in amplitude. The ulnar motor response (recording ADM) is low amplitude and minimally prolonged. -F responses are markedly prolonged in the upper and lower limb. -Absent H reflex which may be normal given the patient's age. -Chronic motor axon loss with a distal predominance in the upper and lower limb, with sparse active denervation in medial gastrocnemius and the paraspinals. 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 Normal [facility] CNOVon 04-12-2024 CNOV Office Visit (PODIMM ) ADARSH [id number]) 1940 M Date Time Provider Department 04/12/24 3:00 PM SOFIA BOYCE During your visit today, we recorded the following information about you: Sakina Wise, RN 04/15/2024 6:10 AM Signed AMB ROOMING INTAKE FLOWSHEET DATA Pain Pain Level: 8 (5-8/10) Pain Location: Foot-Left Description: Sharp Duration Amount of Time: 5 Duration Units: Days Frequency: Continuous Intervention/Comfort measure: Relaxation, Reposition Patient presents with: Left Foot - Established Patient, Pain Patient presents for left lateral foot pain, redness, and swelling. States that it began earlier this week a day after wearing a different pair of shoes that were not very supportive. States that he has tried Tylenol and soaked it in epsom salt. FOUZIA 12/27/23 Sofia Boyce 04/15/2024 6:10 AM Signed FOLLOW UP PODIATRIC OFFICE VISIT Chief Complaint: This 83 year old who presents for evaluation of left foot. Patient states that for the past week, he has noticed his left foot become red and swollen. He states that he wore a cheap boot and since then, he developed pain, redness and swelling He has difficult time walking He is scheduled to go on a cruise tomorrow PAIN EVALUATION 04/12/2024 1508 Pain Level: 8 5-8/10 Pain Location: Foot-Left Description: Sharp Duration Amount of Time: 5 Duration Units: Days Frequency: Continuous Intervention/Comfort measure: Relaxation;Reposition Hemoglobin A1C Date Value Ref Range Status 01/08/2024 4.8 4.3 - 5.6 % Final Comment: [place] [employer] guidelines indicate that patients with HgbA1c in the range 5.7-6.4% are at increased risk for development of diabetes, and intervention by lifestyle modification may be beneficial. HgbA1c greater or equal to 6.5% is considered diagnostic of diabetes. 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 [...] 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 10/07/2015 DDD (degenerative disc disease), lumbar 10/07/2015 Degeneration of lumbar or lumbosacral intervertebral disc Diaphragmatic hernia without mention of obstruction or gangrene Elevated fasting blood sugar 11/18/2017 Enlargement of lymph nodes Erectile dysfunction 10/07/2015 Family history of dementia 10/07/2015 First degree AV block 01/12/2024 GERD without esophagitis 10/07/[address] 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 pt to go see Dr. 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 W/U with event monitor in past was normal per cardio. past medical history skin cancer forehead--unsure which kind Primary insomnia 10/07/2015 Psoriasis Rosacea 11/11/2016 Skin cancer screening 07/09/2023 Seeing [facility] Subclavian artery stenosis, right (HCC) 06/17/2017 [place] 06/16/2017 50-99% Thrombocytopenia (HCC) 10/07/2015 Waldenstrom's macroglobulinemia 10/07/2015 Current Outpatient Medications Medication Sig Tadalafil (CIALIS) 20 mg tablet Take 1 tablet by mouth once daily as needed. Take 1-2 hours before sexual activity. rosuvastatin (CRESTOR) 20 mg tablet Take 1 tablet by mouth once daily. lactulose 10 gram/15 mL solution Take 30 ml twice a day. (Patient taking differently: Take 30 ml twice a day. As needed) aspirin 81 mg chewable tablet Take 81 mg by mouth once daily. rituximab/hyaluronidase,leydi n (RITUXAN HYCELA SUBCUTANEOUS) Inject subcutaneously. albuterol HFA (more content not included)... Normal [facility] XR FOOT 3V AP/LAT/OBL LTon 0 04-12-2024 XR FOOT 3V AP/LAT/OBL LT * * *Final Report* * * DATE OF EXAM: Apr 12 2024 4:06PM [place] 5336 - XR FOOT 3V AP/LAT/OBL LT / PROCEDURE REASON: M79.672-Pain in left foot * * * * Physician Interpretation * * * * EXAMINATION / TECHNIQUE: XR FOOT 3V AP/LAT/OBL LT HISTORY: Pt states he is having pain on the lateral side of his left foot, by the 5th metatarsal. Denies any injury to his left foot Pain in left foot COMPARISON: 10/07/2023. RESULT: See impression IMPRESSION: Remote fifth metatarsal base fracture. No acute fracture or dislocation. Mild scattered interphalangeal joint osteoarthritis. No osseous erosion. Senior Controls Technician: [facility] Transcribe Date/Time: Apr 17 2024 9:39P Dictated by : MARCELL WHITTAKER MD This examination was interpreted and the report reviewed and electronically signed by: MARCELL WHITTAKER MD on Apr 17 2024 9:40PM EST [id number] [facility] CRP SerPl-mCncon 04-03-2024 CRP [Mass/Vol] mg/L Normal <0.9 [facility] Comment on above: Order Comment: Speci men Type: BLOOD SPECIMEN Ordering Facility: [facility] Address: [address] [place] [address] Performed By: #### 1 9123-9, 81382-8 #### [facility] MAXINE GUERRERO [id number] [address] [place] [address] [place] Ankle Brachial Indexon 03-22 Ankle Brachial Index [facility] [place] [address] Ankle Brachial Index 03/22/24 0804 MR#: [id number] Acct: [id number] Name: ADARSH SORENSEN Rep #: [id number] : 1940 83 From: Audi Tadeo MD Attending Dr: KAT Huizar Status: REG CLI Ordering Dr: Kristina Giordano Date: 03/22/24 Location: [facility] Sex: M C Admitted: Reason For Study: S/P EVAR Procedure A bilateral lower extremity continuous wave Doppler with analog waveform analysis and ankle brachial indexes. Left Segmental Pressures Left brachial= 114mmHg. Left posterior tibial artery = 136mmHg. Left dorsalis pedis artery = 135mmHg. Left digit = 124 mmHg. The left dorsalis pedis waveforms are triphasic. The left posterior tibial artery waveforms are triphasic. Right Segmental Pressures Right brachial= 125mmHg. Right posterior tibial artery = 114mmHg. Right dorsalis pedis artery = 148mmHg. Right digit = 112 mmHg. The right dorsalis pedis waveforms are triphasic. The right posterior tibial artery waveforms are triphasic. Indices The right ankle brachial index by the dorsalis pedis is 1.18. The right ankle brachial index by the posterior tibial artery is 0.91. The right digital-brachial index is 0.90. The left ankle brachial index by the dorsalis pedis is 1.08. The left ankle brachial index by the posterior tibial artery is 1.09. The left digital-brachial index is 0.99. VL/Ankle Brachial Index Interpretation Summary Right CHARLES 1.18, normal. TBI and Doppler/PVR waveforms of the right ankle normal at rest. Left CHARLES 1.09, normal. TBI and Doppler/PVR waveforms of the left ankle normal at rest. Ordering Physician: Kristina Giordano Referring Physician: Jared Robertson MD Performed By: Collette Alston RVT and Student 03/23/241654 Date Audi Tadeo MD CC: KAT Huizar; Dr. Jared Robertson MD Date Dictated: 03/22/24803 Date Transcribed: 03/23/241654 Senior Controls Technician: [facility]igned [facility] (FAMPWS ) ADARSH SORENSEN ([id number]) 1940 M Date Time Provider Department 03/22/24 6:40 PM [facility] During your visit today, we recorded the following information about you: Pulse Blood pressure Weight Height 55/minute 122/58 80.3 kg 1.829 m Jared Robertson MD 03/22/2024 7:53 PM Signed Chief Complaint Patient presents with: 6 Month Exam HPI Adarsh Sorensen is a 83 year old male who presents here today for Above Complaints. and Chronic Medical Conditions.. Patient with Hx of AAA, Carotid artery disease, CAD, GERD, funez's, elevated fasting blood sugar, Hyperlipidemia, Waldenstrom's macroglobulinemia, Anemia, thrombocytopenia, allergic Rhinitis, insomnia, chronic bronchitis, IBS, BPH as well as those reviewed and addressed below and in ROS. Patient has been doing well and feeling much better. Has a mild lingering cough that is improving. He plans to see Dr. Bright in June for his persistent diarrhea. He has not been sleeping well. Falls asleep ok but then wakes up and can't fall back asleep. Has been getting some twinges of pain in the left temporal area off and on. No pain with chewing. It is tax season and he has had some stress. He was at the [facility] last week for his oncology appt and his BP was 160/low 80's. On repeat it was about the same. Is going on a cruise in the near future. Past medical history, appointments, medications, allergies reviewed. 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 [...] 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 10/07/2015 DDD (degenerative disc disease), lumbar 10/07/2015 Degeneration of lumbar or lumbosacral intervertebral disc Diaphragmatic hernia without mention of obstruction or gangrene Elevated fasting blood sugar 11/18/2017 Enlargement of lymph nodes Erectile dysfunction 10/07/2015 Family history of dementia 10/07/2015 First degree AV block 01/12/2024 GERD without esophagitis 10/07/[address] 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 pt to go see Dr. 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 W/U with event monitor in past was normal per cardio. past medical history skin cancer forehead--unsure which kind Primary insomnia 10/07/2015 Psoriasis Rosacea 11/11/2016 Skin cancer screening 07/09/2023 Seeing [facility] Subclavian artery stenosis, right (HCC) 06/17/2017 [place] 06/16/2017 50-99% Thrombocytopenia (HCC) 10/07/2015 Waldenstrom's macroglobulinemia 10/07/2015 Previous Surgical History PAST SURGICAL HISTORY Procedure Laterality Date 2D ECHO (EXEP) 01/30/2014 EF=60%, LVH, no valve abnormalities COLONOSCOPY 09/21/2014 Dr. Bright, polyp, repeat 3 yrs COLONOSCOPY 02/17/2018 repeat 3 yrs, Dr. Bright COLONOSCOPY W/BIOPSY SINGLE/MULTIPLE 11/22/2007 ENDOSCOPY UPPER-EGD/M24 LAP, REVISION MIKA FUNDOPLASTY 03/20/[address] Layla VORA SURG [...] e;ectroshock Alzheimer's Disease Mother Patient Allergies ALLERGIES Luis (more content not included)... Normal [facility] Carotid Duplex Ultrasoundon 03-22-2024 Carotid Duplex Ultrasound [facility] Cardiovascular Services [address] [place] [address] Carotid Duplex Ultrasound 03/22/24 0815 MR#: [id number] Acct: [id number] Name: ADARSH SORENSEN Rep #: [id number] : 1940 83 From: Audi Tadeo MD Attending Dr: KAT Huizar Status: REG CLI Ordering Dr: Kristina Giordano Date: 03/22/24 Location: [facility] Sex: M C Admitted: Reason For Study: Stenosis Rt. Velocities/BP Lt. Velocities/BP Prox CCA 108.8/5.0 cm/sec. Prox CCA 99.8/4.1 cm/sec. Mid CCA 112.0/11.5 cm/sec. Mid CCA 99.8/15.1 cm/sec. Dist CCA 75.1/12.4 cm/sec. Dist CCA 94.9/15.1 cm/sec. Prox ICA 67.4/11.6 cm/sec. Prox ICA 86.4/9.7 cm/sec. Mid ICA 85.1/17.6 cm/sec. Mid ICA 75.1/15.7 cm/sec. Dist ICA 86.3/26.2 cm/sec. Dist ICA 86.3/21.2 cm/sec. Rt. ICA/CCA = 0.7. Lt. ICA/CCA = 0.9. Prox ECA 119.3/2.4 cm/sec. Prox ECA 108.3/2.4 cm/sec. Rt. Vert. 44.8/14.2 cm/sec. Lt. Vert. 76.5/12.6 cm/sec. Right Extracranial There is heterogeneous, irregular atherosclerotic plaque noted in the right common carotid artery. There is heterogeneous, irregular atherosclerotic plaque noted in the right internal carotid artery. There is homogeneous, smooth atherosclerotic plaque noted in the right external carotid artery. Antegrade flow is noted in the right vertebral artery. Left Extracranial There is heterogeneous, irregular atherosclerotic plaque noted in the left common carotid artery. There is heterogeneous, irregular atherosclerotic plaque noted in the left internal carotid artery. There is heterogeneous, irregular atherosclerotic plaque noted in the left external carotid artery. Antegrade flow is noted in the left vertebral artery. Procedure Carotid Duplex 57227. This is a Carotid Duplex examination using B-mode, color flow and specral Doppler. Exam performed in department. VL/Carotid Duplex Ultrasound Interpretation Summary Mild (<50%) stenosis right extracranial internal carotid. Mild (<50%) stenosis left extracranial internal carotid. Patent and antegrade vertebrals bilaterally. Ordering Physician: Kristina Giordano Referring Physician: Kristina Giordano Performed By: Collette Alston RVT and Student 03/23/241655 Date Audi Tadeo MD CC: KAT Huizar; Dr. Jared Robertson MD Date Dictated: 03/22/24814 Date Transcribed: 03/23/241655 Senior Controls Technician: Signed Normal [facility] BETA 2 MICROGLOBULIN SERUMon 03-17-2024 Beta 2 Microglobulin 2.37 mg/L High 0.80-2.34 [facility] Comment on above: Order Comment: Zak cks Performed By: #### B 2M #### [facility] (DEFAULT) [address] [place] [address] CBC AND ELECTRONIC DIFFon Basophils (Bld) [#/Vol] K/uL 0.00 - 0.09 K/uL [facility] Basophils/100 WBC (Bld) 0.4 % [facility] Differential cell count method Nom (Bld) Electronic Differential [facility] Eosinophils (Bld) [#/Vol] 0.08 10*3/uL 0.00 - 0.48 K/uL [facility] Eosinophils/100 WBC (Bld) 1.6 % [facility] Erythrocyte distribution width (RBC) [Ratio] 12.9 % 10.9 - 14.3 % [facility] Comment on above: This is an appended report. These results have been appended to a previously preliminary verified report. Hematocrit (Bld) [Volume fraction] 40.9 % 39.6 - 48.8 % [facility] Comment on above: This is an appended report. These results have been appended to a previously preliminary verified report. Hemoglobin (Bld) [Mass/Vol] 14.2 g/dL 13.4 - 16.8 g/dL [facility] Comment on above: This is an appended report. These results have been appended to a previously preliminary verified report. Immature granulocytes (Bld) [#/Vol] K/uL NINF - 0.07 K/uL [facility] Immature granulocytes/100 WBC (Bld) 0.4 % [facility] Interpretation and review of laboratory results Abnormal [facility] Lymphocytes (Bld) [#/Vol] 0.81 10*3/uL Low 0.83 - 3.57 K/uL [facility] Lymphocytes/100 WBC (Bld) 15.9 % [facility] MCH (RBC) [Entitic mass] 32.1 pg 26.1 - 33.3 pg [facility] Comment on above: This is an appended report. These results have been appended to a previously preliminary verified report. MCHC (RBC) [Mass/Vol] 34.7 g/dL 31.9 - 36.5 g/dL [facility] Comment on above: This is an appended report. These results have been appended to a previously preliminary verified report. MCV (RBC) [Entitic vol] 92.5 fL 79.0 - 94.5 fL [facility] Comment on above: This is an appended report. These results have been appended to a previously preliminary verified report. Monocytes (Bld) [#/Vol] 0.58 10*3/uL 0.24 - 0.93 K/uL [facility] Monocytes/100 WBC (Bld) 11.4 % [facility] Neutrophils (Bld) [#/Vol] 3.59 10*3/uL 1.57 - 6.19 K/uL [facility] Nucleated RBC/100 WBC (Bld) [Ratio] 0.0 % [facility] Platelet mean volume (Bld) [Entitic vol] [facility] Comment on above: Not measured Platelets (Bld) [#/Vol] 130 10*3/uL Low 146 - 337 K/uL [facility] Comment on above: This is an appended report. These results have been appended to a previously preliminary verified report. RBC (Bld) [#/Vol] 4.42 10*6/uL [facility] Comment on above: This is an appended report. These results have been appended to a previously preliminary verified report. Segmented neutrophils/100 WBC (Bld) 70.3 % [facility] WBC (Bld) [#/Vol] 5.10 10*3/uL 3.73 - 10.10 K/uL [facility] Comment on above: This is an appended report. These results have been appended to a previously preliminary verified report. [facility] Abs Baso Auto < Normal 0.00-0.09 [facility] Comment on above: Order Comment: Maddo cks Performed By: #### Y SVIS #### [facility] (DEFAULT) [address] [address] Basophils/100 WBC (Bld) 0.4 % Normal [facility] Comment on above: Order Comment: Maddo cks Performed By: #### Y SVIS #### [facility] (DEFAULT) [address] [address] DIFF STATUS Electronic Differential Normal [facility] Comment on above: Order Comment: Maddo cks Performed By: #### Y SVIS #### [facility] (DEFAULT) [address] [place] [address] Eosinophils (Bld) [#/Vol] 0.08 10*3/uL Normal 0.00-0.48 [facility] Comment on above: Order Comment: Maddo cks Performed By: #### Y SVIS #### [facility] (DEFAULT) [address] [address] Eosinophils/100 WBC (Bld) 1.6 % Normal [facility] Comment on above: Order Comment: Maddo cks Performed By: #### Y SVIS #### [facility] (DEFAULT) [address] [address] Hematocrit (Bld) [Volume fraction] 40.9 % Normal 39.6-48.8 [facility] Comment on above: Order Comment: Maddo cks Result Comment: This is an appended report. These results have been appended to a previously preliminary verified report. Performed By: #### Y SVIS #### [facility] (DEFAULT) [address] [address] Hemoglobin (Bld) [Mass/Vol] 14.2 g/dL Normal 13.4-16.8 [facility] Comment on above: Order Comment: Maddo cks Result Comment: This is an appended report. These results have been appended to a previously preliminary verified report. Performed By: #### Y SVIS #### [facility] (DEFAULT) [address] [address] Immature Grans % 0.4 % Normal [facility] Comment on above: Order Comment: Maddo cks Performed By: #### Y SVIS #### [facility] (DEFAULT) [address] [address] Immature Grans Absolute < Normal <=0.07 [facility] Comment on above: Order Comment: Maddo cks Performed By: #### Y SVIS #### [facility] (DEFAULT) [address] [address] Lymphocytes (Bld) [#/Vol] 0.81 10*3/uL Low 0.83-3.57 [facility] Comment on above: Order Comment: Maddo cks Performed By: #### Y SVIS #### [facility] (DEFAULT) [address] [address] Lymphocytes/100 WBC (Bld) 15.9 % Normal [facility] Comment on above: Order Comment: Maddo cks Performed By: #### Y SVIS #### [facility] (DEFAULT) [address] [address] MCV (RBC) [Entitic vol] 92.5 fL Normal 79.0-94.5 [facility] Comment on above: Order Comment: Maddo cks Result Comment: This is an appended report. These results have been appended to a previously preliminary verified report. Performed By: #### Y SVIS #### [facility] (DEFAULT) [address] [address] Mean Cell Hgb 32.1 pg Normal 26.1-33.3 [facility] Comment on above: Order Comment: Maddo cks Result Comment: This is an appended report. These results have been appended to a previously preliminary verified report. Performed By: #### Y SVIS #### [facility] (DEFAULT) [address] [address] Mean Cell Hgb Conc 34.7 g/dL Normal 31.9-36.5 [facility] Comment on above: Order Comment: Maddo cks Result Comment: This is an appended report. These results have been appended to a previously preliminary verified report. Performed By: #### Y SVIS #### [facility] (DEFAULT) [address] [address] Mean Platelet Volume Normal [facility] Comment on above: Order Comment: Maddo cks Result Comment: Not measured Performed By: #### Y SVIS #### [facility] (DEFAULT) [address] [address] Monocytes (Bld) [#/Vol] 0.58 10*3/uL Normal 0.24-0.93 [facility] Comment on above: Order Comment: Maddo cks Performed By: #### Y SVIS #### [facility] (DEFAULT) [address] [address] Monocytes/100 WBC (Bld) 11.4 % Normal [facility] Comment on above: Order Comment: Maddo cks Performed By: #### Y SVIS #### [facility] (DEFAULT) [address] [address] Nucleated RBC 0.0 /100 WBC Normal <=0.2 [facility] Comment on above: Order Comment: Maddo cks Performed By: #### Y SVIS #### [facility] (DEFAULT) [address] [address] Platelets (Bld) [#/Vol] 130 10*3/uL Low 146-337 [facility] Comment on above: Order Comment: Maddo cks Result Comment: This is an appended report. These results have been appended to a previously preliminary verified report. Performed By: #### Y SVIS #### [facility] (DEFAULT) [address] [address] RBC (Bld) [#/Vol] 4.42 10*6/uL Normal 4.38-5.83 [facility] Comment on above: Order Comment: Maddo cks Result Comment: This is an appended report. These results have been appended to a previously preliminary verified report. Performed By: #### Y SVIS #### [facility] (DEFAULT) [address] [address] RBC Distribution 12.9 % Normal 10.9-14.3 [facility] Comment on above: Order Comment: Maddo cks Result Comment: This is an appended report. These results have been appended to a previously preliminary verified report. Performed By: #### Y SVIS #### [facility] (DEFAULT) [address] [address] Segs + Bands Auto 70.3 % Normal [facility] Comment on above: Order Comment: Maddo cks Performed By: #### Y SVIS #### [facility] (DEFAULT) [address] [address] Segs + Bands,Absolute Auto 3.59 K/uL Normal 1.57-6.19 [facility] Comment on above: Order Comment: Maddo cks Performed By: #### Y SVIS #### [facility] (DEFAULT) [address] [place] [address] WBC (Bld) [#/Vol] 5.10 10*3/uL Normal 3.73-10.10 [facility] Comment on above: Order Comment: Zak cks Result Comment: This is an appended report. These results have been appended to a previously preliminary verified report. Performed By: #### Y SVIS #### [facility] (DEFAULT) [address] [place] [address] [facility] 03-17-2024 Albumin [Mass/Vol] 4.2 g/dL 3.5 - 5.0 g/dL [facility] ALP [Catalytic activity/Vol] 84 U/L 32 - 126 U/L [facility] ALT [Catalytic activity/Vol] 19 U/L 10 - 52 U/L [facility] Anion gap [Moles/Vol] 8 mmol/L 7 - 17 mmol/L [facility] AST [Catalytic activity/Vol] 21 U/L 10 - 39 U/L [facility] Bilirubin [Mass/Vol] 1.2 mg/dL NINF - 1.5 mg/dL [facility] Calcium [Mass/Vol] 9.1 mg/dL 8.6 - 10. 5 mg/dL [facility] Chloride [Moles/Vol] 107 mmol/L 98 - 10 8 mmol/L [facility] CO2 [Moles/Vol] 29 mmol/L 21 - 31 mmol/L [facility] Creatinine [Mass/Vol] 1.07 mg/dL 0.70 - 1.30 mg/dL [facility] eGFR, CKD-EPI, Male 69 - PINF [facility] Comment on above: Reported eGFR is bas ed on the CKD-EPI 2020 equation using creatinine, age, and sex. Glucose [Mass/Vol] 83 mg/dL 70 - 99 mg/dL [facility] Interpretation and review of laboratory results Abnormal [facility] Osmolality Calc [Osmolality] 297 [facility] Potassium [Moles/Vol] 4.3 mmol/L 3.5 - 5.0 mmol/L [facility] Protein [Mass/Vol] 6.9 g/dL 6.4 - 8.3 g/dL [facility] Sodium [Moles/Vol] 140 mmol/L 135 - 145 mmol/L [facility] Urea nitrogen [Mass/Vol] 26 mg/dL High 7 - 25 mg/dL [facility] Urea nitrogen/Creatinine [Mass ratio] 24 mg/mg [facility] Albumin [Mass/Vol] 4.2 g/dL Normal 3.5-5.0 [facility] Comment on above: Order Comment: Maddo cks Performed By: #### L DO, CMPN #### [facility] (DEFAULT) [address] [place] [address] ALP [Catalytic activity/Vol] 84 U/L Normal 32-126 [facility] Comment on above: Order Comment: Maddo cks Performed By: #### L DO, CMPN #### [facility] (DEFAULT) [address] [place] [address] ALT [Catalytic activity/Vol] 19 U/L Normal 10-52 [facility] Comment on above: Order Comment: Maddo cks Performed By: #### L DO, CMPN #### [facility] (DEFAULT) [address] [place] [address] Anion gap [Moles/Vol] 8 mmol/L Normal 7-17 [facility] Comment on above: Order Comment: Maddo cks Performed By: #### L DO, CMPN #### [facility] (DEFAULT) [address] [place] [address] AST [Catalytic activity/Vol] 21 U/L Normal 10-39 [facility] Comment on above: Order Comment: Maddo cks Performed By: #### L DO, CMPN #### [facility] (DEFAULT) [address] [place] [address] Bilirubin [Mass/Vol] 1.2 mg/dL Normal <1.5 [facility] Comment on above: Order Comment: Maddo cks Performed By: #### L DO, CMPN #### [facility] (DEFAULT) [address] [place] [address] Calcium [Mass/Vol] 9.1 mg/dL Normal 8.6-10.5 [facility] Comment on above: Order Comment: Maddo cks Performed By: #### L DO, CMPN #### [facility] (DEFAULT) [address] [place] [address] Chloride [Moles/Vol] 107 mmol/L Normal 98-108 [facility] Comment on above: Order Comment: Maddo cks Performed By: #### L DO, CMPN #### [facility] (DEFAULT) [address] [place] [address] CO2 [Moles/Vol] 29 mmol/L Normal 21-31 [facility] Comment on above: Order Comment: Maddo cks Performed By: #### L DO, CMPN #### [facility] (DEFAULT) [address] [place] [address] Creatinine [Mass/Vol] 1.07 mg/dL Normal 0.70-1.30 [facility] Comment on above: Order Comment: Maddo cks Performed By: #### L DO, CMPN #### [facility] (DEFAULT) [address] [place] [address] GFR/1.73 sq M.predicted among non-blacks MDRD (S/P/Bld) [Vol rate/Area] 69 mL/min/{1.73_m2} Normal >=60 [facility] Comment on above: Order Comment: Maddo cks Result Comment: Repo rted eGFR is based on the CKD-EPI 2020 equation using creatinine, age, and sex. Performed By: #### L DO, CMPN #### [facility] (DEFAULT) [address] [place] [address] Glucose [Mass/Vol] 83 mg/dL Normal 70-99 [facility] Comment on above: Order Comment: Maddo cks Performed By: #### L DO, CMPN #### [facility] (DEFAULT) [address] [place] [address] Osmolality [Osmolality] 297 mosm/kg Normal 278-305 [facility] Comment on above: Order Comment: Maddo cks Performed By: #### L DO, CMPN #### [facility] (DEFAULT) [address] [place] [address] Potassium [Moles/Vol] 4.3 mmol/L Normal 3.5-5.0 [facility] Comment on above: Order Comment: Maddo cks Performed By: #### L DO, CMPN #### [facility] (DEFAULT) [address] [place] [address] Protein [Mass/Vol] 6.9 g/dL Normal 6.4-8.3 [facility] Comment on above: Order Comment: Maddo cks Performed By: #### L DO, CMPN #### [facility] (DEFAULT) [address] [place] [address] Sodium [Moles/Vol] 140 mmol/L Normal 135-145 [facility] Comment on above: Order Comment: Maddo cks Performed By: #### L DO, CMPN #### [facility] (DEFAULT) [address] [place] [address] Urea nitrogen [Mass/Vol] 26 mg/dL High 7-25 [facility] Comment on above: Order Comment: Maddo cks Performed By: #### L DO, CMPN #### [facility] (DEFAULT) [address] [place] [address] Urea nitrogen/Creatinine [Mass ratio] 24 mg/mg Normal [facility] Comment on above: Order Comment: Maddo cks Performed By: #### L DO, CMPN #### [facility] (DEFAULT) [address] [place] [address] IMMUNOFIXATION SERUMon 03-17 Monoclonal 1 252.0 mg/dL High <=0.0 [facility] Comment on above: Order Comment: Maddo cks Performed By: #### P SE, PSD, SIMFXB #### [facility] (DEFAULT) [address] [place] [address] REVIEWED BY: Huy Paredes MD Normal [facility] Comment on above: Order Comment: Maddo cks Performed By: #### P SE, PSD, SIMFXB #### [facility] (DEFAULT) [address] [place] [address] Serum Immunofixation IgM kappa monoclona l protein is present. Normal [facility] Comment on above: Order Comment: Maddo cks Performed By: #### P SE, PSD, SIMFXB #### [facility] (DEFAULT) [address] [place] [address] IMMUNOGLOBULINS IGG IGA IGMo n 03-17-2024 IgA [Mass/Vol] 106 mg/dL 90 - 410 mg/dL [facility] IgG [Mass/Vol] 541 mg/dL Low 600 - 1560 mg/dL [facility] IgM [Mass/Vol] 452 mg/dL High 30 - 360 mg/dL [facility] IgA [Mass/Vol] 106 mg/dL Normal 90-410 [facility] Comment on above: Order Comment: Maddo cks Performed By: #### Y SVIS #### [facility] (DEFAULT) [address] [place] [address] IgG [Mass/Vol] 541 mg/dL Low 600-1560 [facility] Comment on above: Order Comment: Maddo cks Performed By: #### Y SVIS #### [facility] (DEFAULT) [address] [place] [address] IgM [Mass/Vol] 452 mg/dL High 30-360 [facility] Comment on above: Order Comment: Maddo cks Performed By: #### Y SVIS #### [facility] (DEFAULT) [address] [place] [address] LACTATE DEHYDROGENASEon 02-17 Interpretation and review of laboratory results Normal [facility] LDH Lactate to pyruvate reaction [Catalytic activity/Vol] 139 U/L 100 - 190 U/L [facility] LD Total 139 U/L Normal 100-190 [facility] Comment on above: Order Comment: Maddo cks Performed By: #### L DO, CMPN #### [facility] (DEFAULT) [address] [place] [address] No Panel Informationon 03-17 Interpretation and review of laboratory results Abnormal [facility] PROTEIN ELECTROPHORESISon Albumin [Mass/Vol] 3.9 g/dL Normal 3.5-5.0 [facility] Comment on above: Order Comment: Maddo cks Performed By: #### P SE, PSD, SIMFXB #### [facility] (DEFAULT) [address] [place] [address] Alpha 1 0.4 g/dL Normal 0.2-0.4 [facility] Comment on above: Order Comment: Maddo cks Performed By: #### P SE, PSD, SIMFXB #### [facility] (DEFAULT) [address] [place] [address] Alpha 2 0.6 g/dL Normal 0.5-1.0 [facility] Comment on above: Order Comment: Maddo cks Performed By: #### P SE, PSD, SIMFXB #### [facility] (DEFAULT) [address] [place] [address] Beta 0.7 g/dL Normal 0.5-1.1 [facility] Comment on above: Order Comment: Maddo cks Performed By: #### P SE, PSD, SIMFXB #### [facility] (DEFAULT) [address] [place] [address] Gamma 0.8 g/dL Normal 0.6-1.5 [facility] Comment on above: Order Comment: Maddo cks Performed By: #### P SE, PSD, SIMFXB #### [facility] (DEFAULT) [address] [place] [address] Interpretation By: Huy Paredes MD Normal [facility] Comment on above: Order Comment: Maddo cks Performed By: #### P SE, PSD, SIMFXB #### [facility] (DEFAULT) [address] [place] [address] Spe Interpretation Normal [facility] Comment on above: Order Comment: Maddo cks Result Comment: Ther e is a zone of restriction in the gamma region with a normal remaining polyclonal immunoglobulins. ?This pattern suggests monoclonal or oligoclonal proteins that may occur in chronic inflammatory diseases (e.g., of liver), or may be idiopathic, or may represent a monoclonal gammopathy. Performed By: #### P SE, PSD, SIMFXB #### [facility] (DEFAULT) [address] [place] [address] SPE SERUM TOTAL PROTEINon Protein [Mass/Vol] 6.3 g/dL Low 6.4 - 8.3 g/dL [facility] Protein [Mass/Vol] 6.3 g/dL Low 6.4-8.3 [facility] Comment on above: Order Comment: Maddo cks Performed By: #### P SE, PSD, SIMFXB #### [facility] (DEFAULT) [address] [place] [address] VISCOSITY, SERUMon 5 Viscosity, Serum 1.1 cpoise Normal <=1.5 [facility] Comment on above: Order Comment: Maddo cks Result Comment: ADDITIONAL INFORMATION This test has been modified from the obstetric assistant's instructions. Its performance characteristics were determined by [facility] in a manner consistent with CLIA requirements. This test has not been cleared or approved by the U.S. Food and Drug Administration. Test Performed by: [facility] [address] [place] [address] [employer]ifter [employer] Miller: Irasema Quach Ph.D.; CLIA# [id number] Performed By: #### Y SVIS #### [facility] ([facility]) [address] [place] [address] CNPZainab 02-25-2024 CNPN Telephone (FAMPWS) ADARSH SORENSEN ([id number]) 1940 M Date Time Provider Department 02/25/24 [facility] During your visit today, we recorded the following information about you: Leah Storey RN 02/25/2024 1:43 PM Signed Swati from Dr. Bright's office calls and states that office had received referral. Patient has been seeing Dr. Mathew and Dr. Bright advises that patient continue to be seen by Dr. Mathew for testing. CASH Krishnan Jeffrey A, MD 02/25/2024 4:34 PM Signed Please reach out to patient and let him know I need some help remembering why we referred him to Dr. Bright instead of going back to see Dr. Mathew ( I though it was do to difficulty getting in and having messages returned) Also I don't remember if Adarsh saw Dr. Bright in the past and if so did he change to Dr. Mathew just because he was closer? Sakina Lim, CASH 02/26/2024 8:47 AM Signed Pt called and is notified of providers message. Pt states he had been seeing Dr Bright for reflux and stomach issues. He states their office wasn't as responsive and he was getting good communication. He states he never got a call back after his colonoscopy, and they never called him back to schedule a follow up. Pt states he switched to Dr Mathew because he had a conversation with Dr Bright about having hiatal hernia surgery and he referred him because he said he was good, and he was closer. He states he has the same issue he did with Dr Mathew as he did with Dr Bright, they are not good at getting back to him and getting appointments set up. CASH Rascon Jeffrey A, MD 02/26/2024 2:31 PM Signed Let patient know Vincenzo Robledo's office contacted us and said that Dr Bright advised he stay with Dr. Mathew. Another option would be to see [facility] in [place]? Eliza Beckett MA 02/28/2024 8:47 AM Signed Left message for patient to contact office. SAMEER Slater Sherrie, RN 02/28/2024 9:06 AM Signed Patient returned call and given message below. Pt states it his current understanding that he has an appt with Dr. Bright on 03/10/24, as someone contacted him this past Wednesday and made an appointment for him. He is going to call their office today to clarify. CASH Garner Jeffrey A, MD 02/28/2024 2:21 PM Signed Noted. Will await f/u input. Allergies As of Date: 02/25/2024 Noted Allergy Reaction ELAVIL (AMITRIPTYLINE HCL) 11/18/2017 14 - Other: See Comments Comments: Tired and depressed feeling Date Reviewed: 02/23/2024 Reviewed by: Jared Robertson MD - Fully Assessed Reason for Visit: Orders [681] Prescriptions as of 02/28/2024 - azithromycin (ZITHROMAX Z-CARIDAD) 250 mg tablet 2 tablets by mouth first day then 1 tablet the next 4 days - rosuvastatin (CRESTOR) 20 mg tablet Take 1 tablet by mouth once daily. - omeprazole (PRILOSEC) 40 mg capsule Take 1 capsule by mouth once daily. - lactulose 10 gram/15 mL solution Take 30 ml twice a day. - aspirin 81 mg chewable tablet Take 81 mg by mouth once daily. - rituximab/hyaluronidase,leydi n (RITUXAN HYCELA SUBCUTANEOUS) Inject subcutaneously. - albuterol HFA (PROAIR HFA) 90 mcg/actuation inhaler Inhale 2 Puffs as instructed every 6 hours as needed. Meds Comments as of 04/22/2018: Holding ASA as instructed. 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 Bilateral carotid artery stenosis [I65.23] 10/07/2015 Chronic low back pain without sciatica [M54.50,*10/07/2015 Allergic rhinitis due to pollen [J30.1] 10/07/2015 Erectile dysfunction [N52.9] 10/07/2015 Irritable bowel syndrome with both constipation*10/07/2015 Waldenstrom's macroglobulinemia (HCC) [C88.00] 10/07/2015 Family history of dementia [Z81.8] 10/07/2015 Primary insomnia [F51.01] 10/07/2015 DDD (degenerative disc disease), lumbar [M51.36*10/07/2015 Psoriasis [L40.9] 10/07/2015 History of colon polyps [Z86.0100] 10/07/2015 Mixed hyperlipidemia [E78.2] 10/07/2015 GERD without esophagitis [K21.9] 10/07/2015 Anemia [D64.9] 10/07/2015 Thrombocytopenia (HCC) [D69.6] 10/07/2015 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.4] 10/23/2015 Adrenal adenoma [D35.00] 10/23/2015 Chronic pain syndrome [G89.4] 10/23/2015 Disorder of prostate [N42.9] 10/23/2015 Benign non-nodular prostatic hyperplasia withou*10/23/2015 Rosacea [L71.9] 11/11/2016 Subclavian artery stenosis, right (HCC) [I77.1] 06/17/2017 Elevated fasting blood sugar [R73.01] 11/18/2017 Palpitations [R00.2] 06/07/2018 Medicare annual wellness visit, subsequent [Z00*11/25/2018 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 Normal [facility] CNOVon 02-23-2024 CNOV Office Visit (FAMPWS ) ADARSH SORENSEN ([id number]) 1940 M Date Time Provider Department 02/23/24 2:40 PM [facility] During your visit today, we recorded the following information about you: Pulse Respiration Blood pressure Weight 58/minute 18/minute 118/82 78 kg Jared Robertson MD 02/23/2024 7:06 PM Signed Chief Complaint Patient presents with: Cough HPI Adarsh Sorensen is a 83 year old male who presents here today for follow up on Started with sore throat which has cleared up; cough/congestion/fatigue/ wheezing. No fever; No N/V/D. Was seen in told it was viral on 02/20/2024. No swab completed. Patient indicated that Dr. Blackwood never contacted them. Patient indicated that he also had stress test completed. Patient also saw Dr. Tadeo and they were to schedule US but has not heard from there office. Patient with Hx of AAA, Carotid artery disease, CAD, GERD, funez's, elevated fasting blood sugar, Hyperlipidemia, Waldenstrom's macroglobulinemia, Anemia, thrombocytopenia, allergic Rhinitis, insomnia, chronic bronchitis, IBS, BPH as well as those reviewed and addressed below and in ROS. Patient saw Neurology last visit 11/2023 [facility] with c/o fever, cough and sore throat. [place] to be viral. Patient still very congested. Has clear rhinorrhea. Cough is productive but not sure of color. No sore throat. No shortness of breath but wheezing. Slightly better today. No fevers, nausea or vomiting. Past medical history, appointments, medications, allergies reviewed. 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 [...] 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 10/07/2015 DDD (degenerative disc disease), lumbar 10/07/2015 Degeneration of lumbar or lumbosacral intervertebral disc Diaphragmatic hernia without mention of obstruction or gangrene Elevated fasting blood sugar 11/18/2017 Enlargement of lymph nodes Erectile dysfunction 10/07/2015 Family history of dementia 10/07/2015 First degree AV block 01/12/2024 GERD without esophagitis 10/07/[address] 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 pt to go see Dr. 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 W/U with event monitor in past was normal per cardio. past medical history skin cancer forehead--unsure which kind Primary insomnia 10/07/2015 Psoriasis Rosacea 11/11/2016 Skin cancer screening 07/09/2023 Seeing [facility] Subclavian artery stenosis, right (HCC) 06/17/2017 US 06/16/2017 50-99% Thrombocytopenia (HCC) 10/07/2015 Waldenstrom's macroglobulinemia 10/07/2015 Previous Surgical History PAST SURGICAL HISTORY Procedure Laterality Date 2D ECHO (EXEP) 01/30/2014 EF=60%, LVH, no valve abnormalities COLONOSCOPY 09/21/2014 Dr. Bright, polyp, repeat 3 yrs COLONOSCOPY 02/17/2018 repeat 3 yrs, Dr. Bright COLONOSCOPY W/BIOPSY SINGLE/MULTIPLE 11/22/2007 ENDOSCOPY UPPER-EGD/M24 LAP, REVISION MIKA FUNDOPLASTY 03/20/[address] Layla VORA SURG [...] Father 74 of metastatic brain CA Diabetes (more content not included)... Normal [facility] MR/BMS.BVSon 02-22-2024 MR/BMS.BVS [facility] Vascular Surgery [address] [place] [address] OFFICE VISIT Date of Service: 02/22/24 MR#: [id number] Acct: [id number] Name: ADASRH SORENSEN Rep #: [id number] 3 : 1940 Provider: KAT Huizar Age/Sex: 83/M Location: BMS.BVS Status: Signed Intake Vital Signs 10/17/23 08:17 02/22/24 14:50 Height 5 ft 11 in Weight: 172 lb BP 143/83 H Blood Pressure Location Lt brachial Position Sitting Respiration 16 Pulse 69 Pulse Source Monitor Temp 98 F Temp Source Temporal Pulse Oximetry (%) 98 Oxygen Delivery Method room air Intake Visit Reasons: AAA, B/L Carotid Artery Stenosis Chief Complaint: establish care Is patient in pain?: No Allergies No Known Allergies Allergy (Verified 02/22/24 14:52) Medications ???Medication ???Instructions ???Recorded ???Confirmed ???Type omeprazole 20 mg capsule,delayed 40 mg PO DAILY PRN ACID REFLUX 01/15/22 02/22/24 History release rosuvastatin 20 mg tablet 20 mg PO QHS CHOLESTEROL 08/31/22 02/22/24 History Have you fallen in the past year?: No PFSH Medical History Neuropathy associated with anti-MAG antibody Difficulty swallowing Wears glasses Cancer Gout Arthritis Blood disorder High cholesterol Back pain History of IBS History of hiatal hernia Leg cramps Cardiology follow-up encounter History of echocardiogram History of stress test Anemia Former smoker Intractable low back pain Lumbosacral strain Lymphoma Basal cell carcinoma (BCC) in situ of skin Pure hypercholesterolemia Shortness of breath Fatigue Hyperlipidemia AAA (abdominal aortic aneurysm) without rupture Palpitations Sinus bradycardia Surgical History Status post laparoscopic Mika fundoplication History of esophagogastroduodenoscopy (EGD) ( 11/2021) History of colonoscopy ( 11/2021) History of cardiac catheterization History of AAA (abdominal aortic aneurysm) repair History of cholecystectomy aorto bi-common iliac stent graft ( 11/2014) Family History Father Colon cancer Mother Alzheimers disease Brother Multiple sclerosis Social History Smoking Status: Former smoker how long ago did patient quit smokin alcohol intake: current alcohol intake frequency: a few times a week Alcohol type: wine and hard liquor substance use type: does not use caffeine: Yes Type: coffee what type of physical activity do you participate in: none seatbelt use: always do you feel safe at home: Yes HPI HPI HPI: ADARSH SORENSEN, is a 83 M who presents to the office today for follow-up of AAA s/p EVAR (2014) and carotid artery stenosis. He is referred by his PCP Dr. Robertson due to new pulsatile discomfort in the R groin. Dr. Robertson did order CTA Abd/Pelvis which he completed at [facility]. We have received the report but not yet received images to review. The report states stable appearance of aortoiliac stent graft without evidence of endoleak or recurrent aneurysm; the [place] sac is collapsed completely around the graft; there are multiple degrees of atherosclerotic disease including through what appears to be a previously stented R SFA. No other aneurysmal disease or other complication such as fistula was identified which would explain his R groin pulsatile discomfort. He notes that for a couple months he was experiencing a pulsatile sensation in his R groin. This was nonpalpable and there was no associated focal edema. There was no identifiable provoking or alleviating factors. This has stopped spontaneously and he has not had a recurrence of this sensation now for 3 weeks. He otherwise denies any claudication through his lower extremities. He does have nocturnal cramps bilaterally. We discussed the above CTA results. Patient states he is not aware of any R SFA stent. He states he had no vascular procedures other than his EVAR. He was previously seen by Dr. Tadeo in 02/2023 for incidentally identified R common carotid stenosis which was determined to be 80% but from acute angulation rather than atherosclerosis based on 08/2022 CTA. His last carotid duplex was 08/31/22 showing <50% stenosis bilateral ICAs. He does not have any history of known CVA/TIA. He has not been taking ASA 81mg daily. He was not specifically instructed to stop it, but heard that it may not be good to take all the time and additionally he does have a generally upset stomach so thought it may be best to stop. His stomach symptoms did not necessarily improve with discontinuation. ROS General General: No weight change, appetite, fatigue, colon cance (more content not included)... [facility] ([facility] ) ADARSH SORENSEN ([id number]) 1940 M Date Time Provider Department 02/20/24 10:30 AM KORINA AGUILAR [facility] During your visit today, we recorded the following information about you: Temperature Pulse Respiration Blood pressure 99.1 degrees 84/minute 16/minute 120/62 Weight 79.5 kg Korina Aguilar APRN.MATTRESS FINISHER 02/20/2024 10:49 AM Signed This note was created using NoteWriter. Subjective Adarsh Sorensen is a 83 year old male. Reports 3 day history of fever, cough and sore throat. Reports Tmax 98.5. Denies n/v/d, sob. Reports post nasal drainage. Objective BP 120/62 Pulse 84 Temp 37.3 ?C (99.1 ?F) Resp 16 Wt 79.5 kg (175 lb 4.3 oz) SpO2 96% BMI 23.77 kg/m? Physical Exam PHYSICAL EXAMINATION: General appearance: Well appearing, alert, in no acute distress, well-hydrated, well nourished. Nose/Sinuses: Positive findings: mucosa erythematous and swollen, purulent rhinorrhea Oropharynx: Lips, mucosa, and tongue normal, teeth and gums normal, oropharynx normal. Lungs: Lungs clear to auscultation. No wheezing, rhonchi, rales. Cough Heart: RRR without murmur, gallop, or rubs. No ectopy Assessment and Plan ASSESSMENT/PLAN: 1. Viral URI with cough - ICD9: 465.9, ICD10: J06.9 - Discussed viral etiology and rationale for treatment. - Symptomatic treatment with prn analgesia - Supportive care with fluids and rest - The patient may also use OTC decongestants prn, OTC cough and cold meds as needed, and nasal saline gtts and suction prn. - Follow up in 3-5 days if symptoms persist or sooner if worsening of symptoms Korina Aguilar APRN.MATTRESS FINISHER Allergies As of Date: 02/20/2024 Noted Allergy Reaction ELAVIL (AMITRIPTYLINE HCL) 11/18/2017 14 - Other: See Comments Comments: Tired and depressed feeling Date Reviewed: 02/20/2024 Reviewed by: Alba Kapoor MA - Fully Assessed Reason for Visit: Nasal Congestion [235] Cmt: drainage, cough, fever x 3 days Primary Visit Diagnosis:Viral URI with cough [J06.9] Prescriptions as of 02/20/2024 - rosuvastatin (CRESTOR) 20 mg tablet Take 1 tablet by mouth once daily. - omeprazole (PRILOSEC) 40 mg capsule Take 1 capsule by mouth once daily. - lactulose 10 gram/15 mL solution Take 30 ml twice a day. - aspirin 81 mg chewable tablet Take 81 mg by mouth once daily. - rituximab/hyaluronidase,leydi n (RITUXAN HYCELA SUBCUTANEOUS) Inject subcutaneously. - Doxycycline Hyclate 100 mg EC tablet Take 100 mg by mouth two times a day. - albuterol HFA (PROAIR HFA) 90 mcg/actuation inhaler Inhale 2 Puffs as instructed every 6 hours as needed. Meds Comments as of 04/22/2018: Holding ASA as instructed. 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 Bilateral carotid artery stenosis [I65.23] 10/07/2015 Chronic low back pain without sciatica [M54.50,*10/07/2015 Allergic rhinitis due to pollen [J30.1] 10/07/2015 Erectile dysfunction [N52.9] 10/07/2015 Irritable bowel syndrome with both constipation*10/07/2015 Waldenstrom's macroglobulinemia (HCC) [C88.00] 10/07/2015 Family history of dementia [Z81.8] 10/07/2015 Primary insomnia [F51.01] 10/07/2015 DDD (degenerative disc disease), lumbar [M51.36*10/07/2015 Psoriasis [L40.9] 10/07/2015 History of colon polyps [Z86.0100] 10/07/2015 Mixed hyperlipidemia [E78.2] 10/07/2015 GERD without esophagitis [K21.9] 10/07/2015 Anemia [D64.9] 10/07/2015 Thrombocytopenia (HCC) [D69.6] 10/07/2015 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2] 09/12/2020 Balance problem [R26.89] 04/01/2021 History of COVID-19 [Z86.16] 09/09/2021 Advance directive discussed with patient [Z71.8*04/06/2022 Unsteadiness [R26.81] 11/17/2022 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 HISTORY: Known abdominal aortic aneurysm, status post endovascular repair. Patient complains of throbbing pain. TECHNIQUE: High-resolution contrast-enhanced helical CT of the abdomen, pelvis and both lower extremities was performed, timed to the arterial phase. 3D maximum intensity projection images were created, reviewed and archived. Total of 120 ml of Omnipaque 350 was injected IV during the examination. The study was performed without oral contrast. The patient tolerated the injection without complications. No special maneuvers were performed Dose-Length Product (DLP): 753 mGy*cm. CT Dose Reduction Employed: Automated exposure control(AEC) and iterative recon RESULT: COMPARISON: CT angiogram of the abdomen and pelvis dated 05/31/2020. INSURANCE LICENSING SUPERVISOR: Review of remedial teacher images demonstrate no additional findings. ABDOMEN: Again noted is an intact aortobiiliac stent graft, which is widely patent with only minimal peripheral plaque in the bilateral common iliac artery limbs. The [place] aneurysm sac is collapsed around the graft without evidence of endoleak. Celiac artery demonstrates no significant focal stenosis. Superior mesenteric artery demonstrates no significant focal stenosis. Inferior mesenteric artery demonstrates no significant focal stenosis. There is a single right renal artery. Right renal artery demonstrates no significant focal stenosis. There is a single renal vein which is patent. There is a single left renal artery. Left renal artery demonstrates no significant focal stenosis. There is a single renal vein which is patent. RIGHT LEG: Right common iliac artery contains a patent limb of the stent graft. Right external iliac artery demonstrates diffuse atherosclerotic change without significant focal stenosis. Right internal iliac artery demonstrates diffuse atherosclerotic change without significant focal stenosis. Right common femoral artery demonstrates diffuse atherosclerotic change without significant focal stenosis. Right profunda femoris artery is widely patent with no significant stenosis. Right superficial femoral artery contains multiple stents with areas of mild to moderate in-stent stenosis proximally and moderate to severe distal in-stent stenosis with multiple collaterals. Right popliteal artery demonstrates diffuse atherosclerotic change without significant focal stenosis. Right anterior tibial artery demonstrates diffuse atherosclerotic change without significant focal stenosis. Dorsalis pedis is seen and normal in appearance. Right tibioperoneal trunk demonstrates diffuse atherosclerotic change without significant focal stenosis. Right posterior tibial artery demonstrates focal moderate (40-60 %) stenosis. Posterior tibial artery is normal in caliber and seen to the foot. Right peroneal artery demonstrates diffuse atherosclerotic change without significant focal stenosis. LEFT LEG: Left common iliac artery contains a patent stent graft. Left external iliac artery demonstrates diffuse atherosclerotic change without significant focal stenosis. Left internal iliac artery demonstrates diffuse atherosclerotic change without significant focal stenosis. Left common femoral artery demonstrates diffuse atherosclerotic change without significant focal stenosis. Left profunda femoris artery demonstrates diffuse atherosclerotic change without significant focal stenosis. Left superficial femoral artery demonstrates diffuse atherosclerotic change without significant focal stenosis. Left popliteal artery demonstrates diffuse atherosclerotic change without significant focal stenosis. Left anterior tibial artery demonstrates focal moderate (40-60 %) stenosis. Dorsalis pedis is seen and normal in appearance. Left tibioperoneal trunk demonstrates focal moderate (40-60 %) stenosis. Left posterior tibial artery demonstrates diffuse atherosclerotic change without significant focal stenosis. Posterior tibial artery is normal in caliber and seen to the foot. Left peroneal artery is widely patent with no significant stenosis. NONVASCULAR FINDINGS: Lower thorax: Bibasilar atelectasis without acute abnormality. Liver: Unremarkable Biliary: No bile duct dilation. The gallbladder is not identified. Correlate with history of cholecystectomy. Spleen: No mass. No splenomegaly. Pancreas: No mass or duct dilation. Adrenals: No mass. Kidneys: Mild, diffuse, bilateral renal parenchymal thinning GI tract: No dilation or wall thickening. Lymph nodes: No abdominal or pelvic lymphadenopathy. Mesentery/Peritoneum: No ascites or mass. Pelvis: No mass, ascites or fluid collection. Bones/ (more content not included)... Normal [facility] CTA Abdominal, Pelvis and Lo wer extremity vessels W contrast Krista 02-10-2024 IMPRESSION: Stable appearance of aortoiliac stent graft without evidence of endoleak or recurrent aneurysm. The [place] aneurysm sac is collapsed completely around the graft. There are multiple degrees of atherosclerotic disease including through what appears to be a previously stented RIGHT superficial femoral artery as detailed above. Three-vessel runoff to both feet. No acute abnormality. Senior Controls Technician: [facility] Transcribe Date/Time: Feb 10 2024 6:54P Dictated by : ELI YIP MD This examination was interpreted and the report reviewed and electronically signed by: ELI YIP MD on Feb 10 2024 7:13PM [facility] * * *Final Report* * * DATE OF EXAM: Feb 10 2024 3:34PM [facility] 0122 - CTA ABD/PEL/LOWER EXT W IVCON / PROCEDURE REASON: multiple diagnoses * * * * Physician Interpretation * * * * Exam: CT angiogram of the abdomen, pelvis and lower extremities. HISTORY: Known abdominal aortic aneurysm, status post endovascular repair. Patient complains of throbbing pain. TECHNIQUE: High-resolution contrast-enhanced helical CT of the abdomen, pelvis and both lower extremities was performed, timed to the arterial phase. 3D maximum intensity projection images were created, reviewed and archived. Total of 120 ml of Omnipaque 350 was injected IV during the examination. The study was performed without oral contrast. The patient tolerated the injection without complications. No special maneuvers were performed Dose-Length Product (DLP): 753 mGy*cm. CT Dose Reduction Employed: Automated exposure control(AEC) and iterative recon RESULT: COMPARISON: CT angiogram of the abdomen and pelvis dated 05/31/2020. INSURANCE LICENSING SUPERVISOR: Review of remedial teacher images demonstrate no additional findings. ABDOMEN: Again noted is an intact aortobiiliac stent graft, which is widely patent with only minimal peripheral plaque in the bilateral common iliac artery limbs. The [place] aneurysm sac is collapsed around the graft without evidence of endoleak. Celiac artery demonstrates no significant focal stenosis. Superior mesenteric artery demonstrates no significant focal stenosis. Inferior mesenteric artery demonstrates no significant focal stenosis. There is a single right renal artery. Right renal artery demonstrates no significant focal stenosis. There is a single renal vein which is patent. There is a single left renal artery. Left renal artery demonstrates no significant focal stenosis. There is a single renal vein which is patent. RIGHT LEG: Right common iliac artery contains a patent limb of the stent graft. Right external iliac artery demonstrates diffuse atherosclerotic change without significant focal stenosis. Right internal iliac artery demonstrates diffuse atherosclerotic change without significant focal stenosis. Right common femoral artery demonstrates diffuse atherosclerotic change without significant focal stenosis. Right profunda femoris artery is widely patent with no significant stenosis. Right superficial femoral artery contains multiple stents with areas of mild to moderate in-stent stenosis proximally and moderate to severe distal in-stent stenosis with multiple collaterals. Right popliteal artery demonstrates diffuse atherosclerotic change without significant focal stenosis. Right anterior tibial artery demonstrates diffuse atherosclerotic change without significant focal stenosis. Dorsalis pedis is seen and normal in appearance. Right tibioperoneal trunk demonstrates diffuse atherosclerotic change without significant focal stenosis. Right posterior tibial artery demonstrates focal moderate (40-60 %) stenosis. Posterior tibial artery is normal in caliber and seen to the foot. Right peroneal artery demonstrates diffuse atherosclerotic change without significant focal stenosis. LEFT LEG: Left common iliac artery contains a patent stent graft. Left external iliac artery demonstrates diffuse atherosclerotic change without significant focal stenosis. Left internal iliac artery demonstrates diffuse atherosclerotic change without significant focal stenosis. Left common femoral artery demonstrates diffuse atherosclerotic change without significant focal stenosis. Left profunda femoris artery demonstrates diffuse atherosclerotic change without significant focal stenosis. Left superficial femoral artery demonstrates diffuse atherosclerotic change without significant focal stenosis. Left popliteal artery demonstrates diffuse atherosclerotic change without significant focal stenosis. Left anterior tibial artery demonstrates focal moderate (40-60 %) stenosis. Dorsalis pedis is seen and normal in appearance. Left tibioperoneal trunk demonstrates focal moderate (40-60 %) stenosis. Left posterior tibial artery demonstrates diffuse atherosclerotic change without significant focal stenosis. Posterior tibial artery is normal in caliber and seen to the foot. Left peroneal artery is widely patent with no significant stenosis. NONVASCULAR FINDINGS: Lower thorax: Bibasilar atelectasis without acute abnormality. Liver: Unremarkable Biliary: No bile duct dilation. The gallbladder is not identified. Correlate with history of cholecystectomy. Spleen: No mass. No splenomegaly. Pancreas: No mass or duct dilation. Adrenals: No mass. Kidneys: Mild, diffuse, bilateral renal parenchymal thinning GI tract: No dilation or wall thickening. Lymph nodes: No abdominal or pelvic lymphadenopathy. (more content not included)... [place] [facility] Provider, [facility] - 02/10/2024 * * *Final Report* * * DATE OF EXAM: Feb 10 2024 3:34PM [facility] [place] 0122 - CTA ABD/PEL/LOWER EXT W IVCON / PROCEDURE REASON: multiple diagnoses * * * * Physician Interpretation * * * * Exam: CT angiogram of the abdomen, pelvis and lower extremities. HISTORY: Known abdominal aortic aneurysm, status post endovascular repair. Patient complains of throbbing pain. TECHNIQUE: High-resolution contrast-enhanced helical CT of the abdomen, pelvis and both lower extremities was performed, timed to the arterial phase. 3D maximum intensity projection images were created, reviewed and archived. Total of 120 ml of Omnipaque 350 was injected IV during the examination. The study was performed without oral contrast. The patient tolerated the injection without complications. No special maneuvers were performed Dose-Length Product (DLP): 753 mGy*cm. CT Dose Reduction Employed: Automated exposure control(AEC) and iterative recon RESULT: COMPARISON: CT angiogram of the abdomen and pelvis dated 05/31/2020. INSURANCE LICENSING SUPERVISOR: Review of remedial teacher images demonstrate no additional findings. ABDOMEN: Again noted is an intact aortobiiliac stent graft, which is widely patent with only minimal peripheral plaque in the bilateral common iliac artery limbs. The [place] aneurysm sac is collapsed around the graft without evidence of endoleak. Celiac artery demonstrates no significant focal stenosis. Superior mesenteric artery demonstrates no significant focal stenosis. Inferior mesenteric artery demonstrates no significant focal stenosis. There is a single right renal artery. Right renal artery demonstrates no significant focal stenosis. There is a single renal vein which is patent. There is a single left renal artery. Left renal artery demonstrates no significant focal stenosis. There is a single renal vein which is patent. RIGHT LEG: Right common iliac artery contains a patent limb of the stent graft. Right external iliac artery demonstrates diffuse atherosclerotic change without significant focal stenosis. Right internal iliac artery demonstrates diffuse atherosclerotic change without significant focal stenosis. Right common femoral artery demonstrates diffuse atherosclerotic change without significant focal stenosis. Right profunda femoris artery is widely patent with no significant stenosis. Right superficial femoral artery contains multiple stents with areas of mild to moderate in-stent stenosis proximally and moderate to severe distal in-stent stenosis with multiple collaterals. Right popliteal artery demonstrates diffuse atherosclerotic change without significant focal stenosis. Right anterior tibial artery demonstrates diffuse atherosclerotic change without significant focal stenosis. Dorsalis pedis is seen and normal in appearance. Right tibioperoneal trunk demonstrates diffuse atherosclerotic change without significant focal stenosis. Right posterior tibial artery demonstrates focal moderate (40-60 %) stenosis. Posterior tibial artery is normal in caliber and seen to the foot. Right peroneal artery demonstrates diffuse atherosclerotic change without significant focal stenosis. LEFT LEG: Left common iliac artery contains a patent stent graft. Left external iliac artery demonstrates diffuse atherosclerotic change without significant focal stenosis. Left internal iliac artery demonstrates diffuse atherosclerotic change without significant focal stenosis. Left common femoral artery demonstrates diffuse atherosclerotic change without significant focal stenosis. Left profunda femoris artery demonstrates diffuse atherosclerotic change without significant focal stenosis. Left superficial femoral artery demonstrates diffuse atherosclerotic change without significant focal stenosis. Left popliteal artery demonstrates diffuse atherosclerotic change without significant focal stenosis. Left anterior tibial artery demonstrates focal moderate (40-60 %) stenosis. Dorsalis pedis is seen and normal in appearance. Left tibioperoneal trunk demonstrates focal moderate (40-60 %) stenosis. Left posterior tibial artery demonstrates diffuse atherosclerotic change without significant focal stenosis. Posterior tibial artery is normal in caliber and seen to the foot. Left peroneal artery is widely patent with no significant stenosis. NONVASCULAR FINDINGS: Lower thorax: Bibasilar atelectasis without acute abnormality. Liver: Unremarkable Biliary: No bile duct dilation. The gallbladder is not identified. Correlate with history of cholecystectomy. Spleen: No mass. No splenomegaly. Pancreas: No mass or duct dilation. Adrenals: No mass. Kidneys: Mild, diffuse, bilateral renal parenchymal thinning GI tract: No dilation or wall thickening. Lymph nodes (more content not included)... [facility] Radiology Study observation (narrative) [facility] CTA Abdominal, Pelvis and Lo wer extremity vessels W contrast IVOrdered By: [facility] Provider on 02-10-2024 [facility] NM CARDIAC PERF STRESS/EXERC ISEon 02-10-2024 [place] CARDIAC PERF STRESS/EXERCISE * * *Final Report* * * DATE OF EXAM: Feb 10 2024 2:59PM [facility] 0004 - [place] CARDIAC PERF STRESS/EXERCISE / PROCEDURE REASON: multiple diagnoses * * * * Physician Interpretation * * * * Stress Wax Pattern Repairer Report: [facility] Date of service: 02/10/2024 1:04:43 PM Supervising physician: Nunu Baker MD PATIENT: Name: MR. ADARSH SORENSEN Age: 83 years Gender: M The supervising physician was in the department and immediately available. * * * Final * * * PATIENT: Name: MR. ADARSH SORENSEN Age: 83 years Gender: M CONCLUSIONS: 1. SPECT Perfusion Study: Normal. 2. There is no scintigraphic evidence for inducible ischemia. 3. No evidence of scarred myocardium. 4. Left ventricle is normal in size. The left ventricle systolic function is hyperdynamic. 5. Right ventricle is normal in size. The right ventricle systolic function is normal. 6. This is a low risk scan. Gated Stress IR:3D LVEF % 80 Prior Study Comparison No prior nuclear cardiology exam available for comparison. Nuclear Med Report:1-Day Gated SPECT Myocardial Perfusion with Exercise Stress: Myocardial perfusion imaging was performed at rest 30 to 60 minutes following the IV injection of the radiotracer. One minute prior to peak exercise, the patient was injected IV with the radiotracer. Gated post stress tomographic imaging was performed 10 to 20 minutes later. See administered radiotracer and doses below. [facility] Date of service: 02/10/2024 1:04:43 PM Ordering Physician: JARED ROBERTSON. Requesting Physician: Indication: CP Interpreting physician: Cat Lange MD Height: 182.88 cm BSA: 2.00 m? Weight: 78.93 kg BMI: 23.6 kg/m? CT Dose Reduction Employed: No. Exam Type: Rest Stress Radiopharm: Tc-99m Tetrofosmin Tc-99m Tetrofosmin Dosage(mCi): 13.6 35.4 Atten Correction: not performed not performed Stress Agent: Treadmill Resting Blood Press: 144/80 mmHg Image Quality The overall study imaging quality was deemed to be excellent. FINDINGS: Left Ventricle Wall Motion: 1 - All segments are normal. Stress IR:3D - Rest IR:3D - Gated Stress IR:3D - Reversibility - 1 Stress IR:3D Gated Stress IR:3D LVEF: 80 % ED Volume: 75 ml ES Volume: 15 ml TID: 0.95 Perfusion Findings Stress IR:3D - Summed Score=0 All segments demonstrate normal perfusion. Rest IR:3D - Summed Score=0 All segments demonstrate normal perfusion. Stress IR:3D Rest IR:3D Summed Score=0 Summed Score=0 LEFT VENTRICLE The left ventricle is normal in size. Left ventricular systolic function is hyperdynamic. Right Ventricle The right ventricle is normal in size. Right ventricle systolic function is normal. Stress Test Findings: There is no scintigraphic evidence for inducible ischemia. There is no evidence of scarring. * * * Final * * * Stress ECG Report: [facility] Date of service: 02/10/2024 1:04:43 PM Ordering physician: JARED ROBERTSON applications specialist: Rosemarie Iglesias Seo Consultant: Mimi Orellana Interpreting physician: Nunu Baker MD Patient name: MR. ADARSH SORENSEN Age: 83 years Gender: M Height: 182.88 cm BSA: 2.00 m? Weight: 78.93 kg BMI: 23.6 kg/m? Indication: Chest pressure / Chest tightness Stress ECG Conclusion: Conclusion: Normal Stress ECG Summary: The patient's resting heart rate was 45 bpm and blood pressure was 144/80 mmHg. The patient exercised according to the Modified Shane protocol. The estimated end-exercise MET level achieved using the FRIEND equation * * * was 6.8, which is within the 25th to 50th percentile for age and sex. The estimated end-exercise MET level achieved using the previous ACSM equation was 8.1. The test was terminated due to end of protocol and the total exercise time was 10 minutes and 0 seconds. Other symptoms during the test included SOB and leg fatigue. The maximum heart rate was 129 bpm, which is 94% of the predicted heart rate for age. Peak blood pressure was 186/72 mmHg. The double product achieved [place] [address]. Medications: Last Used ASPIRIN CRESTOR PRILOSEC ALBUTEROL INHALER Resting ECG: Sinus Bradycardia Symptoms at rest: No symptoms Exercise Protocol: Modified Shane Stress Exercise Table: +-----+ +--------+ +---+---+---+----+ ----+ Stage Speed (MPH) Grade(%) Time (min) HR SYS PEPE RPE METS +-----+ +--------+ +---+---+---+----+ ----+ 1 1.7 5.0 3.0 76 170 76 13.0 3.7 +-----+ +--------+ +---+---+---+----+ ----+ 2 1.7 10.0 6.0 93 178 74 13.0 4.2 (more content not included)... Normal [facility] Heart Perfusion W multipl e states of exerciseon 02-10-2024 * * *Final Report* * * DATE OF EXAM: Feb 10 2024 2:59PM [facility] 0004 - [place] CARDIAC PERF STRESS/EXERCISE / PROCEDURE REASON: multiple diagnoses * * * * Physician Interpretation * * * * Stress Wax Pattern Repairer Report: [facility] Date of service: 02/10/2024 1:04:43 PM Supervising physician: Nunu Baker MD PATIENT: Name: MR. ADARSH SORENSEN Age: 83 years Gender: M The supervising physician was in the department and immediately available. * * * Final * * * PATIENT: Name: MR. ADARSH SORENSEN Age: 83 years Gender: M CONCLUSIONS: 1. SPECT Perfusion Study: Normal. 2. There is no scintigraphic evidence for inducible ischemia. 3. No evidence of scarred myocardium. 4. Left ventricle is normal in size. The left ventricle systolic function is hyperdynamic. 5. Right ventricle is normal in size. The right ventricle systolic function is normal. 6. This is a low risk scan. Gated Stress IR:3D LVEF % 80 Prior Study Comparison No prior nuclear cardiology exam available for comparison. Nuclear Med Report:1-Day Gated SPECT Myocardial Perfusion with Exercise Stress: Myocardial perfusion imaging was performed at rest 30 to 60 minutes following the IV injection of the radiotracer. One minute prior to peak exercise, the patient was injected IV with the radiotracer. Gated post stress tomographic imaging was performed 10 to 20 minutes later. See administered radiotracer and doses below. [facility] Date of service: 02/10/2024 1:04:43 PM Ordering Physician: JARED ROBERTSON. Requesting Physician: Indication: CP Interpreting physician: Cat Lange MD Height: 182.88 cm BSA: 2.00 m Weight: 78.93 kg BMI: 23.6 kg/m CT Dose Reduction Employed: No. Exam Type: Rest Stress Radiopharm: Tc-99m Tetrofosmin Tc-99m Tetrofosmin Dosage(mCi): 13.6 35.4 Atten Correction: not performed not performed Stress Agent: Treadmill Resting Blood Press: 144/80 mmHg Image Quality The overall study imaging quality was deemed to be excellent. FINDINGS: Left Ventricle Wall Motion: 1 - All segments are normal. Stress IR:3D - Rest IR:3D - Gated Stress IR:3D - Reversibility - 1 Stress IR:3D Gated Stress IR:3D LVEF: 80 % ED Volume: 75 ml ES Volume: 15 ml TID: 0.95 Perfusion Findings Stress IR:3D - Summed Score=0 All segments demonstrate normal perfusion. Rest IR:3D - Summed Score=0 All segments demonstrate normal perfusion. Stress IR:3D Rest IR:3D Summed Score=0 Summed Score=0 LEFT VENTRICLE The left ventricle is normal in size. Left ventricular systolic function is hyperdynamic. Right Ventricle The right ventricle is normal in size. Right ventricle systolic function is normal. Stress Test Findings: There is no scintigraphic evidence for inducible ischemia. There is no evidence of scarring. * * * Final * * * Stress ECG Report: [facility] Date of service: 02/10/2024 1:04:43 PM Ordering physician: JARED ROBERTSON applications specialist: Rosemarie Iglesias Seo Consultant: Mimi Orellana Interpreting physician: Nunu Baker MD Patient name: MR. ADARSH SORENSEN Age: 83 years Gender: M Height: 182.88 cm BSA: 2.00 m Weight: 78.93 kg BMI: 23.6 kg/m Indication: Chest pressure / Chest tightness Stress ECG Conclusion: Conclusion: Normal Stress ECG Summary: The patient's resting heart rate was 45 bpm and blood pressure was 144/80 mmHg. The patient exercised according to the Modified Shane protocol. The estimated end-exercise MET level achieved using the FRIEND equation * * * was 6.8, which is within the 25th to 50th percentile for age and sex. The estimated end-exercise MET level achieved using the previous ACSM equation was 8.1. The test was terminated due to end of protocol and the total exercise time was 10 minutes and 0 seconds. Other symptoms during the test included SOB and leg fatigue. The maximum heart rate was 129 bpm, which is 94% of the predicted heart rate for age. Peak blood pressure was 186/72 mmHg. The double product achieved was [address]. Medications: Last Used ASPIRIN CRESTOR PRILOSEC ALBUTEROL INHALER Resting ECG: Sinus Bradycardia Symptoms at rest: No symptoms Exercise Protocol: Modified Shane Stress Exercise Table: +----- (more content not included)... [place] [facility] Provider, [facility] - 02/10/2024 * * *Final Report* * * DATE OF EXAM: Feb 10 2024 2:59PM [facility] 0004 - NM CARDIAC PERF STRESS/EXERCISE / PROCEDURE REASON: multiple diagnoses * * * * Physician Interpretation * * * * Stress Wax Pattern Repairer Report: [facility] Date of service: 02/10/2024 1:04:43 PM Supervising physician: Nunu Baker MD PATIENT: Name: MR. ADARSH SORENSEN Age: 83 years Gender: M The supervising physician was in the department and immediately available. * * * Final * * * PATIENT: Name: MR. ADARSH SORENSEN Age: 83 years Gender: M CONCLUSIONS: 1. SPECT Perfusion Study: Normal. 2. There is no scintigraphic evidence for inducible ischemia. 3. No evidence of scarred myocardium. 4. Left ventricle is normal in size. The left ventricle systolic function is hyperdynamic. 5. Right ventricle is normal in size. The right ventricle systolic function is normal. 6. This is a low risk scan. Gated Stress IR:3D LVEF % 80 Prior Study Comparison No prior nuclear cardiology exam available for comparison. Nuclear Med Report:1-Day Gated SPECT Myocardial Perfusion with Exercise Stress: Myocardial perfusion imaging was performed at rest 30 to 60 minutes following the IV injection of the radiotracer. One minute prior to peak exercise, the patient was injected IV with the radiotracer. Gated post stress tomographic imaging was performed 10 to 20 minutes later. See administered radiotracer and doses below. [facility] Date of service: 02/10/2024 1:04:43 PM Ordering Physician: JARED ROBERTSON. Requesting Physician: Indication: CP Interpreting physician: Cat Lange MD Height: 182.88 cm BSA: 2.00 m Weight: 78.93 kg BMI: 23.6 kg/m CT Dose Reduction Employed: No. Exam Type: Rest Stress Radiopharm: Tc-99m Tetrofosmin Tc-99m Tetrofosmin Dosage(mCi): 13.6 35.4 Atten Correction: not performed not performed Stress Agent: Treadmill Resting Blood Press: 144/80 mmHg Image Quality The overall study imaging quality was deemed to be excellent. FINDINGS: Left Ventricle Wall Motion: 1 - All segments are normal. Stress IR:3D - Rest IR:3D - Gated Stress IR:3D - Reversibility - 1 Stress IR:3D Gated Stress IR:3D LVEF: 80 % ED Volume: 75 ml ES Volume: 15 ml TID: 0.95 Perfusion Findings Stress IR:3D - Summed Score=0 All segments demonstrate normal perfusion. Rest IR:3D - Summed Score=0 All segments demonstrate normal perfusion. Stress IR:3D Rest IR:3D Summed Score=0 Summed Score=0 LEFT VENTRICLE The left ventricle is normal in size. Left ventricular systolic function is hyperdynamic. Right Ventricle The right ventricle is normal in size. Right ventricle systolic function is normal. Stress Test Findings: There is no scintigraphic evidence for inducible ischemia. There is no evidence of scarring. * * * Final * * * Stress ECG Report: [facility] Date of service: 02/10/2024 1:04:43 PM Ordering physician: JARED ROBERTSON applications specialist: Rosemarie Iglesias Seo Consultant: Mimi Orellana Interpreting physician: Nunu Baker MD Patient name: MR. ADARSH SORENSEN Age: 83 years Gender: M Height: 182.88 cm BSA: 2.00 m Weight: 78.93 kg BMI: 23.6 kg/m Indication: Chest pressure / Chest tightness Stress ECG Conclusion: Conclusion: Normal Stress ECG Summary: The patient's resting heart rate was 45 bpm and blood pressure was 144/80 mmHg. The patient exercised according to the Modified Shane protocol. The estimated end-exercise MET level achieved using the FRIEND equation * * * was 6.8, which is within the 25th to 50th percentile for age and sex. The estimated end-exercise MET level achieved using the previous ACSM equation was 8.1. The test was terminated due to end of protocol and the total exercise time was 10 minutes and 0 seconds. Other symptoms during the test included SOB and leg fatigue. The maximum heart rate was 129 bpm, which is 94% of the predicted heart rate for age. Peak blood pressure was 186/72 mmHg. The double product achieved was [address]79. Medications: Last Used ASPIRIN CRESTOR PRILOSEC ALBUTEROL INHALER Resting ECG: Sinus Bradycardia Symptoms at rest: No symptoms Exercise Protocol: Modified Shane Stress Exercise Table: +-----+ +--------+ +---+---+---+----+ ----+ Stage Speed (MPH) Grade(%) Time (min) HR SYS PEPE RPE METS +-----+ +--------+ +---+---+---+ (more content not included)... [facility] Radiology Study observation (narrative) [facility] NM Heart Perfusion W multipl e states of exerciseOrdered By: [facility] Provider on 02-10-2024 [facility] NURSING PROGon 02-10-2024 NURSING PROG HNO ID: [id number] Author: GLADYS PERSAUD RN Service: Radiology Author Type: Registered Nurse Type: Nursing Progress Note Filed: 02/10/2024 15:13 Note Text: Radiology Service Progress Note DATE OF SERVICE: February 10, 2024 TIME: 3:13 PM PATIENT IDENTITY VERIFICATION COMPLETED USING TWO (2) STANDARD IDENTIFIERS: Name and Date of confirmed by patient verbally and Name and Date of confirmed by identification band. FALL SCREENING: Has the patient had 2 falls in the last year or 1 fall with injury or currently using an Ambulatory Assistive Device (Walker, Cane, Wheelchair, Crutches, etc.)? No PATIENT GENDER DATA: Male ALLERGIES: Reviewed and unchanged CONTRAST ALLERGY: No EXAM: CT -CONTRAST INDUCED NEPHROPATHY RISK FACTORS: Patient age > 60 years CREATININE: Creatinine Date Value Ref Range Status 01/08/2024 1.15 0.73 - 1.22 mg/dL Final 04/03/2023 1.21 0.73 - 1.22 mg/dL Final 10/27/2022 1.20 0.73 - 1.22 mg/dL Final Estimated Glomerular Filtration Rate Date Value Ref Range Status 01/08/2024 63 >=60 mL/min/1.73m? Final Comment: Estimated Glomerular Filtration Rate (eGFR) is calculated using the 2020 CKD-EPI creatinine equation. This equation utilizes serum creatinine, sex, and age as parameters. The creatinine assay has traceable calibration to isotope dilution-mass spectrometry. Refer to KDIGO guidelines for clinical interpretation. In patients with unstable renal function, e.g. those with acute kidney injury, the eGFR may not accurately reflect actual GFR. eGFR- Date Value Ref Range Status 03/18/2021 >60 Final P.O.C.T. RESULTS: POC done: Yes, See Lab Tab February 10, 2024 TREATMENT: N/A IV SITE: Ambulatory: A peripheral IV was started in the Left antecubital site with a Angio cath: 20 gauge. IV SITE APPEARANCE: Clean,Dry and Intact SIGNATURE: Gladys Persaud RN PATIENT NAME: Adarsh Sorensen DATE: February 10, 2024 TIME: 3:13 PM [facility] 02-08-2024 [facility] Telephone ([facility]) ADARSH SORENSEN ([id number]) 1940 M Date Time Provider Department 02/08/24 MIMI ORELLANA During your visit today, we recorded the following information about you: Mimi Orellana RN 02/08/2024 12:43 PM Signed Left message regarding reminder and instructions for stress test . This included where to check in, length of test and no caffeine for 12 hours prior to test, Allergies As of Date: 02/08/2024 Noted Allergy Reaction ELAVIL (AMITRIPTYLINE HCL) 11/18/2017 14 - Other: See Comments Comments: Tired and depressed feeling Date Reviewed: 01/13/2024 Reviewed by: Jared Robertson MD - Fully Assessed Reason for Visit: Reminder Call [1985] Prescriptions as of 02/08/2024 - rosuvastatin (CRESTOR) 20 mg tablet Take 1 tablet by mouth once daily. - omeprazole (PRILOSEC) 40 mg capsule Take 1 capsule by mouth once daily. - lactulose 10 gram/15 mL solution Take 30 ml twice a day. - aspirin 81 mg chewable tablet Take 81 mg by mouth once daily. - rituximab/hyaluronidase,leydi n (RITUXAN HYCELA SUBCUTANEOUS) Inject subcutaneously. - Doxycycline Hyclate 100 mg EC tablet Take 100 mg by mouth two times a day. - albuterol HFA (PROAIR HFA) 90 mcg/actuation inhaler Inhale 2 Puffs as instructed every 6 hours as needed. Meds Comments as of 04/22/2018: Holding ASA as instructed. 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 Bilateral carotid artery stenosis [I65.23] 10/07/2015 Chronic low back pain without sciatica [M54.50,*10/07/2015 Allergic rhinitis due to pollen [J30.1] 10/07/2015 Erectile dysfunction [N52.9] 10/07/2015 Irritable bowel syndrome with both constipation*10/07/2015 Waldenstrom's macroglobulinemia (HCC) [C88.00] 10/07/2015 Family history of dementia [Z81.8] 10/07/2015 Primary insomnia [F51.01] 10/07/2015 DDD (degenerative disc disease), lumbar [M51.36*10/07/2015 Psoriasis [L40.9] 10/07/2015 History of colon polyps [Z86.0100] 10/07/2015 Mixed hyperlipidemia [E78.2] 10/07/2015 GERD without esophagitis [K21.9] 10/07/2015 Anemia [D64.9] 10/07/2015 Thrombocytopenia (HCC) [D69.6] 10/07/2015 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2] 09/12/2020 Balance problem [R26.89] 04/01/2021 History of COVID-19 [Z86.16] 09/09/2021 Advance directive discussed with patient [Z71.8*04/06/2022 Unsteadiness [R26.81] 11/17/2022 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 Skin cancer screening [Z12.83] 07/09/2023 Coronary atherosclerosis due to lipid rich plaq*10/07/2015 First degree AV block [I44.0] 01/12/2024 Encounter Status:Closed by WAIMIMI MELO on 02/08/24 [facility] 01-19-2024 [facility] Telephone (FAMPWS) ADARSH SORENSEN ([id number]) 1940 M Date Time Provider Department 01/19/24 [facility] During your visit today, we recorded the following information about you: Enrique Jorge RN 01/19/2024 3:11 PM Signed Patient calls to report that he was not able to get his stress test done today as he drank a cup of coffee this morning. Patient needs a new order to reschedule. Pended with previous information and diagnosis. CASH Joyner Jeffrey A, MD 01/19/2024 5:09 PM Signed Let patient know new stress test order placed. Eliza Beckett MA 01/19/2024 5:26 PM Signed Left detailed message for patient. Please assist to schedule Stress test. SAMEER Slater Michelle 01/20/2024 8:51 AM Signed 1st attempt LVM to schedule stress test Enrique Jorge RN 01/21/2024 8:38 AM Signed Scheduled 02/10/2024. Enrique Jorge RN Allergies As of Date: 01/19/2024 Noted Allergy Reaction ELAVIL (AMITRIPTYLINE HCL) 11/18/2017 14 - Other: See Comments Comments: Tired and depressed feeling Date Reviewed: 01/13/2024 Reviewed by: Jared Robertson MD - Fully Assessed Reason for Visit: Orders [681] Primary Visit Diagnosis:Atypical chest pain [R07.89] Other Visit Diagnosis: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 [I25.83] Order(s):NM CARDIAC PERF STRESS/EXERCISE [[id number]] Order #: [id number] FUTURE Prescriptions as of 01/21/2024 - rosuvastatin (CRESTOR) 20 mg tablet Take 1 tablet by mouth once daily. - omeprazole (PRILOSEC) 40 mg capsule Take 1 capsule by mouth once daily. - lactulose 10 gram/15 mL solution Take 30 ml twice a day. - aspirin 81 mg chewable tablet Take 81 mg by mouth once daily. - rituximab/hyaluronidase,leydi n (RITUXAN HYCELA SUBCUTANEOUS) Inject subcutaneously. - Doxycycline Hyclate 100 mg EC tablet Take 100 mg by mouth two times a day. - albuterol HFA (PROAIR HFA) 90 mcg/actuation inhaler Inhale 2 Puffs as instructed every 6 hours as needed. Meds Comments as of 04/22/2018: Holding ASA as instructed. 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 Bilateral carotid artery stenosis [I65.23] 10/07/2015 Chronic low back pain without sciatica [M54.50,*10/07/2015 Allergic rhinitis due to pollen [J30.1] 10/07/2015 Erectile dysfunction [N52.9] 10/07/2015 Irritable bowel syndrome with both constipation*10/07/2015 Waldenstrom's macroglobulinemia (HCC) [C88.00] 10/07/2015 Family history of dementia [Z81.8] 10/07/2015 Primary insomnia [F51.01] 10/07/2015 DDD (degenerative disc disease), lumbar [M51.36*10/07/2015 Psoriasis [L40.9] 10/07/2015 History of colon polyps [Z86.0100] 10/07/2015 Mixed hyperlipidemia [E78.2] 10/07/2015 GERD without esophagitis [K21.9] 10/07/2015 Anemia [D64.9] 10/07/2015 Thrombocytopenia (HCC) [D69.6] 10/07/2015 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2] 09/12/2020 Balance problem [R26.89] 04/01/2021 History of COVID-19 [Z86.16] 09/09/2021 Advance directive discussed with patient [Z71.8*04/06/2022 Unsteadiness [R26.81] 11/17/2022 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 This included where to check in, length of test and no caffeine for 12 hours prior to test. Allergies As of Date: 01/18/2024 Noted Allergy Reaction ELAVIL (AMITRIPTYLINE HCL) 11/18/2017 14 - Other: See Comments Comments: Tired and depressed feeling Date Reviewed: 01/13/2024 Reviewed by: Jared Robertson MD - Fully Assessed Reason for Visit: Reminder Call [[id number]] Prescriptions as of 01/18/2024 - rosuvastatin (CRESTOR) 20 mg tablet Take 1 tablet by mouth once daily. - omeprazole (PRILOSEC) 40 mg capsule Take 1 capsule by mouth once daily. - lactulose 10 gram/15 mL solution Take 30 ml twice a day. - aspirin 81 mg chewable tablet Take 81 mg by mouth once daily. - rituximab/hyaluronidase,leydi n (RITUXAN HYCELA SUBCUTANEOUS) Inject subcutaneously. - Doxycycline Hyclate 100 mg EC tablet Take 100 mg by mouth two times a day. - albuterol HFA (PROAIR HFA) 90 mcg/actuation inhaler Inhale 2 Puffs as instructed every 6 hours as needed. Meds Comments as of 04/22/2018: Holding ASA as instructed. 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 Bilateral carotid artery stenosis [I65.23] 10/07/2015 Chronic low back pain without sciatica [M54.50,*10/07/2015 Allergic rhinitis due to pollen [J30.1] 10/07/2015 Erectile dysfunction [N52.9] 10/07/2015 Irritable bowel syndrome with both constipation*10/07/2015 Waldenstrom's macroglobulinemia (HCC) [C88.00] 10/07/2015 Family history of dementia [Z81.8] 10/07/2015 Primary insomnia [F51.01] 10/07/2015 DDD (degenerative disc disease), lumbar [M51.36*10/07/2015 Psoriasis [L40.9] 10/07/2015 History of colon polyps [Z86.0100] 10/07/2015 Mixed hyperlipidemia [E78.2] 10/07/2015 GERD without esophagitis [K21.9] 10/07/2015 Anemia [D64.9] 10/07/2015 Thrombocytopenia (HCC) [D69.6] 10/07/2015 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2] 09/12/2020 Balance problem [R26.89] 04/01/2021 History of COVID-19 [Z86.16] 09/09/2021 Advance directive discussed with patient [Z71.8*04/06/2022 Unsteadiness [R26.81] 11/17/2022 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 Skin cancer screening [Z12.83] 07/09/2023 Coronary atherosclerosis due to lipid rich plaq*10/07/2015 First degree AV block [I44.0] 01/12/2024 Encounter Status:Closed by MIMI ORELLANA on 01/18/24 Normal [facility] Amylase SerPl-cCncon -29-2 024 Amylase [Catalytic activity/Vol] 67 U/L Normal 30-104 [facility] Comment on above: Order Comment: Speci men Type: BLOOD SPECIMENOrdering Facility: [facility] Address: [address] [place] [address] Performed By: #### 2 4325-3, 1797-09, 3 ####[facility] LABCLIA [id number] [place] [address] [place] H. pylori IgG IA Qlon 2023 H. PYLORI IGG, QUAL Negative Normal Negative [facility] Comment on above: Order Comment: Speci men Type: BLOOD SPECIMEN Ordering Facility: [facility] Address: [address] [place] [address] Result Comment: Francisco ot exclude H. pylori infection if the specimen collected 3-4 weeks after onset of symptoms. Performed By: #### 1 7859-0 #### [facility] CLIA [id number] [address] [place] [address] [place] Hepatic function 2000 panelo n 01-14-2024 Albumin [Mass/Vol] 4.1 g/dL Normal 3.9-4.9 [facility] Comment on above: Order Comment: Speci men Type: BLOOD SPECIMENOrdering Facility: [facility] Address: [address] [place] [address] Performed By: #### 2 4325-3, 1797-09, 3 ####[facility] LABCLIA [id number] [place] [address] [place] ALP [Catalytic activity/Vol] 93 U/L Normal 38-113 [facility] Comment on above: Order Comment: Speci men Type: BLOOD SPECIMENOrdering Facility: [facility] Address: [address] [place] [address] Performed By: #### 2 4325-3, 1797-09, 3 ####[facility] LABCLIA [id number] [place] [id number] [place] ALT [Catalytic activity/Vol] 15 U/L Normal 10-54 [facility] Comment on above: Order Comment: Speci men Type: BLOOD SPECIMENOrdering Facility: [facility] Address: [address] [place] [address] Performed By: #### 2 4325-3, 1797-09, 3 ####[facility] LABCLIA [id number] [address] [address] [place] AST [Catalytic activity/Vol] 22 U/L Normal 14-40 [facility] Comment on above: Order Comment: Speci men Type: BLOOD SPECIMENOrdering Facility: [facility] Address: [address] [place] [address] Performed By: #### 2 4325-3, 1797-09, 3 ####[facility] LABCLIA [id number] [place] [address] [place] Bilirubin [Mass/Vol] 0.9 mg/dL Normal 0.2-1.3 [facility] Comment on above: Order Comment: Speci men Type: BLOOD SPECIMENOrdering Facility: [facility] Address: [address] [place] [address] Performed By: #### 2 4325-3, 1797-09, 3 ####[facility] LABCLIA [id number] [place] [address] [place] Bilirubin.conjugated [Mass/Vol] 0.2 mg/dL High <0.2 [facility] Comment on above: Order Comment: Speci men Type: BLOOD SPECIMENOrdering Facility: [facility] Address: [address] [place], [place] [address] Performed By: #### 2 4325-3, 1797-09, 3 ####[facility] LABCLIA [id number] [place] [id number] [place] Protein [Mass/Vol] 6.6 g/dL Normal 6.3-8.0 [facility] Comment on above: Order Comment: Speci men Type: BLOOD SPECIMENOrdering Facility: [facility] Address: [address] [place] [address] Performed By: #### 2 4325-3, 1798, 3 ####[facility] LABCLIA [id number] [place] [id number] [place] Lipase SerPl-cCncon 01-14-20 24 Lipase [Catalytic activity/Vol] 37 U/L Normal 16-61 [facility] Comment on above: Order Comment: Speci men Type: BLOOD SPECIMENOrdering Facility: [facility] Address: [address] [place] [address] Performed By: #### 2 4325-3, 1798, 3 ####[facility] LABCLIA [id number] [place] [address] [place] CNOVon 01-12-2024 CNOV Office Visit (FAMPWS ) ADARSH SORENSEN ([id number]) 1940 M Date Time Provider Department 01/12/24 3:20 PM [facility] During your visit today, we recorded the following information about you: Pulse Respiration Blood pressure Weight 64/minute 16/minute 122/68 78.9 kg Jared Robertson MD 01/13/2024 1:07 PM Signed Chief Complaint Patient presents with: F/U 6 months HPI Adarsh Layton [place] is a 83 year old male who presents here today for stomach issues/irregular bowels/ - constant - worse after eating. Patient with Hx of hyperlipidemia, elevated blood sugar, GERD, IBS and CAD. Had a mika in the past. Every time he eats his stomach is upset. Not getting any pain. Still has the issue with constipation and the lactulose at 15-30 ml has not helped. He does not have gal bladder. chest discomfort - at night time only - aching left chest without radiation. No shortness of breath, or diaphoresis. Does have nausea but may not be related to the chest pain over the past 6 months. We ordered a stress test and was never completed back in 03/2023 due to chest pin symptoms patient is currently asymptomatic. Pulsating groin pain right side - 6 months - comes and goes. Nothing he does makes it worse. Has not noted any bulge and has not had any hernias. Does have a AAA and concerned he may have one in the groin on the right since the pain is throbbing when he has it. Past medical history, appointments, medications, allergies reviewed. 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 [...] 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 10/07/2015 DDD (degenerative disc disease), lumbar 10/07/2015 Degeneration of lumbar or lumbosacral intervertebral disc Diaphragmatic hernia without mention of obstruction or gangrene Elevated fasting blood sugar 11/18/2017 Enlargement of lymph nodes Erectile dysfunction 10/07/2015 Family history of dementia 10/07/2015 GERD without esophagitis 10/07/[address] 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 pt to go see Dr. 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 W/U with event monitor in past was normal per cardio. past medical history skin cancer forehead--unsure which kind Primary insomnia 10/07/2015 Psoriasis Rosacea 11/11/2016 Skin cancer screening 07/09/2023 Seeing [facility] Subclavian artery stenosis, right (HCC) 06/17/2017 US 06/16/2017 50-99% Thrombocytopenia (HCC) 10/07/2015 Waldenstrom's macroglobulinemia 10/07/2015 Previous Surgical History PAST SURGICAL HISTORY Procedure Laterality Date 2D ECHO (EXEP) 01/30/2014 EF=60%, LVH, no valve abnormalities COLONOSCOPY 09/21/2014 Dr. Bright, polyp, repeat 3 yrs COLONOSCOPY 02/17/2018 repeat 3 yrs, Dr. Bright COLONOSCOPY W/BIOPSY SINGLE/MULTIPLE 11/22/2007 ENDOSCOPY UPPER-EGD/M24 LAP, REVISION MIKA FUNDOPLASTY 03/20/[address] Layla VORA SURG CHOLECYSTECTOMY W/CHOLANGIOGRAPHY 04/12/2009 PAST SURGICAL HISTORY OF 11/2014 AAA repair PAST SURGICAL HISTORY OF 2015 both eyes cataract removal. PAST SURGICAL HISTORY OF 10/13/2017 right shoulder surgery per [place] [facility] UMBILICAL HRNA 5 YRS/> REDUCIBLE 04/12/2009 STRESS TEST 02/27/2014 WNL Family History FAMILY HISTORY Problem Relation Age of Onset Multiple Sclerosis Brother living Colon Cancer Father 74 of metastatic brain CA Diabetes Father other (schiophrenia) Sister doing ok since e;ectroshock Alzheimer's Disease Mother Patient Allergies ALLERGI (more content not included)... Normal [facility] [id number] 01-12-2024 ECG01 Ventricular Rate : 5 0 BPM Atrial Rate : 50 BPM P-R Interval : 236 ms QRS Duration : 100 ms Q-T Interval : 444 ms QTC Calculation(Bazett) : 404 ms Calculated P [place] : 60 degrees Calculated R [place] : 33 degrees Calculated T [place] : 41 degrees SINUS BRADYCARDIA WITH 1ST DEGREE AV BLOCK OTHERWISE NORMAL ECG Confirmed by MD ARRIAGA QARAB ([id number]) on 07/05/2024 11:53:09 AM NAME : ADARSH SORENSEN PID : [id number] : 1940 Gender : Male Race : ORD : Procedure Date : Jan 12 2024 16:08:17 Edit Date : Jul 05 2024 11:53:14 Diagnosis: SINUS BRADYCARDIA WITH 1ST DEGREE AV BLOCK OTHERWISE NORMAL ECG Confirmed by MD ARRIAGA QARAB ([id number]) on 07/05/2024 11:53:09 AM Test Reason : Location : 185 : [facility] Overread By : MD ARRIAGA QARAB Edited By : MD ARRIAGA QARAB Referred By : JARED ROBERTSON MD Acquired by : Mc SLATER [facility] Basic metabolic 2000 panelon 01-08-2024 Anion gap [Moles/Vol] 10 mmol/L Normal 8-15 [facility] Comment on above: Order Comment: Speci men Type: BLOOD SPECIMENOrdering Facility: [facility] Address: [address] [place] [address] Performed By: #### L IPNF, 29178-0 ####[facility] LABIA [id number] [place] [address] [place] Calcium [Mass/Vol] 9.2 mg/dL Normal 8.5-10.2 [facility] Comment on above: Order Comment: Speci men Type: BLOOD SPECIMENOrdering Facility: [facility] Address: [address] [place] [address] Performed By: #### L IPNF, 58368-4 ####[facility] LABCLIA [id number] [place] [address] [place] Chloride [Moles/Vol] 105 mmol/L Normal 98-107 [facility] Comment on above: Order Comment: Speci men Type: BLOOD SPECIMENOrdering Facility: [facility] Address: [address] [place] [address] Performed By: #### L IPNF, 57821-7 ####[facility] LABCLIA [id number] [place] [address] [place] CO2 [Moles/Vol] 27 mmol/L Normal 22-30 [facility] Comment on above: Order Comment: Speci men Type: BLOOD SPECIMENOrdering Facility: [facility] Address: [address] [place] [address] Performed By: #### L LETA, 74182-9 ####[facility] LABCLIA [id number] [place] [address] [place] Creatinine [Mass/Vol] 1.15 mg/dL Normal 0.73-1.22 [facility] Comment on above: Order Comment: Speci men Type: BLOOD SPECIMENOrdering Facility: [facility] Address: [address] [place] [address] Performed By: #### L LETA, 98750-6 ####[facility] LABCLIA [id number] [place] [address] [place] Creatinine and Glomerular filtration rate.predicted panel (S/P/Bld) 63 mL/min/1.73m??? Normal >=60 [facility] Comment on above: Order Comment: Speci men Type: BLOOD SPECIMENOrdering Facility: [facility] Address: [address] [place] [address] Result Comment: Christelle mated Glomerular Filtration Rate (eGFR) is calculated using the 2020 CKD-EPI creatinine equation. This equation utilizes serum creatinine, sex, and age as parameters. The creatinine assay has traceable calibration to isotope dilution-mass spectrometry. Refer to KDIGO guidelines for clinical interpretation. In patients with unstable renal function, e.g. those with acute kidney injury, the eGFR may not accurately reflect actual GFR. Performed By: #### L LETA, 42954-7 ####[facility] LABCLIA [id number] [place] [id number] [place] Glucose [Mass/Vol] 105 mg/dL High 74-99 [facility] Comment on above: Order Comment: Speci men Type: BLOOD SPECIMENOrdering Facility: [facility] Address: [address] [place] [address] Result Comment: The [place] Diabetes Association (ADA) provides guidance for cutoff values for fasting glucose and random glucose. The ADA defines fasting as no caloric intake for at least 8 hours. Fasting plasma glucose results between 100 to 125 [...] Standards of Medical Care in Diabetes 2016, [place] Diabetes Association. Diabetes Care. 2016.39(Suppl 1). Performed By: #### L LETA, 70905-3 ####[facility] LABCLIA [id number] [place] [address] [place] Potassium [Moles/Vol] 4.4 mmol/L Normal 3.7-5.1 [facility] Comment on above: Order Comment: Speci men Type: BLOOD SPECIMENOrdering Facility: [facility] Address: [address] [place] [address] Performed By: #### L IPNF, 26599-6 ####[facility] LABCLIA [id number] [place] [address] [place] Sodium [Moles/Vol] 142 mmol/L Normal 136-144 [facility] Comment on above: Order Comment: Speci men Type: BLOOD SPECIMENOrdering Facility: [facility] Address: [address] [place] [address] Performed By: #### L IPNF, 93666-8 ####[facility] LABCLIA [id number] [place] [address] [place] Urea nitrogen [Mass/Vol] 21 mg/dL Normal 9-24 [facility] Comment on above: Order Comment: Speci men Type: BLOOD SPECIMENOrdering Facility: [facility] Address: [address] [place] [address] Performed By: #### L IPNF, 90485-3 ####[facility] LABIA [id number] [place] [address] [place] HbA1c (Bld)on 01-08-2024 Average glucose Estimated from glycated hemoglobin (Bld) [Mass/Vol] 91 mg/dL Normal [facility] Comment on above: Order Comment: Speci men Type: BLOOD SPECIMENOrdering Facility: [facility] [facility] Address: [address] [place] [address] Result Comment: eAG: (Estimated average glucose) is a calculated value from HgbA1c and is site safety representative of the average blood glucose level in the last 2-3 month period. Performed By: #### 5 5454-3 ####[facility] [id number] [place] [address] [place] HbA1c (Bld) [Mass fraction] 4.8 % Normal 4.3-5.6 [facility] Comment on above: Order Comment: Briandai men Type: BLOOD SPECIMENOrdering Facility: [facility] Address: [address] [place] [address] Result Comment: [place] Diabetes Association guidelines indicate that patients with HgbA1c in the range 5.7-6.4% are at increased risk for development of diabetes, and intervention by lifestyle modification may be beneficial. HgbA1c greater or equal to 6.5% is considered diagnostic of diabetes. Performed By: #### 5 5454-3 ####[facility] LAB[facility] [id number] [place] [address] [place] LIPID PANEL, NONFASTINGon Cholesterol [Mass/Vol] 164 mg/dL Normal <200 [facility] Comment on above: Order Comment: Briandai men Type: BLOOD SPECIMENOrdering Facility: [facility] Address: [address] [place] [address] Result Comment: <200 mg/dL, Desirable 200-239 mg/dL, Borderline high >239 mg/dL, High Performed By: #### L IPNF, 04642-4 ####[facility] [id number] [address] OF [facility] HDL CHOLESTEROL, NF 60 mg/dL Normal >39 [facility] Comment on above: Order Comment: Kory francisca Type: BLOOD SPECIMENOrdering Facility: [facility] Address: [address] [place] [address] Result Comment: 40-5 9 mg/dL, Acceptable >59 mg/dL, High: Negative risk factor for coronary heart disease <40 mg/dL, Low: Positive risk factor for coronary heart disease Performed By: #### L IPNF, 44008-3 ####[facility] [id number] [address] LDL CHOLESTEROL, NF 89 mg/dL Normal <100 [facility] Comment on above: Order Comment: Kory [facility] Type: BLOOD SPECIMENOrdering Facility: [facility] Address: [address] [place] [address] Result Comment: <100 mg/dL, Optimal 100-129 mg/dL, Near optimal/above optimal 130-159 mg/dL, Borderline high 160-189 mg/dL, High >189 mg/dL, Very high Secondary prevention optimal LDL Cholesterol levels are recommended to be < 70 mg/dL Performed By: #### L IPNF, 95506-5 ####[facility]CL[facility] [id number] [address] OF [facility] LDL/HDL RATIO, NF 1.48 mg/dL Normal <2.54 [facility] Comment on above: Order Comment: Briandabrittani espinosa Type: BLOOD SPECIMENOrdering Facility: [facility] Address: [address] [place] [address] Result Comment: Pk stiles: 1. National Cholesterol Education Program ATP III Guideline At-A-Glance Quick Desk Reference: National Heart, Lung, and Blood [place]. National Institutes of Health. 2001: NIH Publication No. 01-3305. 2. An International Atherosclerosis Society position paper: global recommendations for the management of dyslipidemia: executive summary, Atherosclerosis. 2014: 232(2):410-413. Performed By: #### L IPNF, 25691-9 ####[facility] [id number] [address] STATES OF [facility] NON HDL CHOL, NF 104 mg/dL Normal <130 [facility] Comment on above: Order Comment: Kory men Type: BLOOD SPECIMENOrdering Facility: [facility] Address: [address] [place] [address] Result Comment: <130 mg/dL, Optimal 130-159 mg/dL, Near optimal/above optimal 160-189 mg/dL, Borderline high 190-219 mg/dL, High >219 mg/dL, Very high Secondary prevention optimal non HDL Cholesterol levels are recommended to be <100 mg/dL Performed By: #### L IPOLGA, 18086-7 ####[facility] [id number] [address] T CHOL/HDL RATIO NF 2.73 mg/dL Normal <5.10 [facility] Comment on above: Order Comment: Kory espinosa Type: BLOOD SPECIMENOrdering Facility: [facility] Address: [address] [place] [address] Performed By: #### L IPOLGA, 68593-5 ####[facility]CLIA [id number] [address] OF [facility] TRIGLYCERIDES, NF 74 mg/dL Normal <150 [facility] Comment on above: Order Comment: Kory espinosa Type: BLOOD SPECIMENOrdering Facility: [facility] Address: [address] [place] [address] Result Comment: <150 mg/dL, Normal 150-199 mg/dL, Borderline high 200-499 mg/dL, High >499 mg/dL, Very high Performed By: #### L IPNF, 17364-3 ####[facility] LABCLIA [id number] [address] [place] VLDL CHOLESTEROL, NF 15 mg/dL Normal <30 [facility] Comment on above: Order Comment: Speci men Type: BLOOD SPECIMENOrdering Facility: [facility] Address: [address] [place] [address] Performed By: #### L IPNF, 08306-5 ####[facility] LABCLIA [id number] [id number] OF [facility] CNOVon 12-27-2023 CNOV Office Visit (PODIWS ) ADARSH SORENSEN ([id number]) 1940 M Date Time Provider Department 12/27/23 4:00 PM SOFIA BOYCE PODIWS During your visit today, we recorded the following information about you: Marsha Kennedy LPN 12/27/2023 11:09 PM Signed AMB ROOMING INTAKE FLOWSHEET DATA Patient presents with: Left Great Toe - Established Patient, Follow Up, Ingrown Toenail YANI Leong Matthew 12/27/2023 4:14 PM Signed Your wound is essentially healed Can monitor No longer require soaking If you have any issues, please give me a call Sofia Boyce 12/27/2023 11:09 PM Signed FOLLOW UP PODIATRIC OFFICE VISIT Chief Complaint: This 83 year old who presents for follow up:left hallux toenail matrixectomy Patient presents to clinic for follow-up left hallux toenail matrixectomy Patient is doing very well Denies any redness, drainage or pain. Very happy with outcome from procedure. PAIN EVALUATION No data found in the last 1 encounters. Hemoglobin A1C Date Value Ref Range Status 04/03/2023 4.9 4.3 - 5.6 % Final Comment: [place] Diabetes Association guidelines indicate that patients with HgbA1c in the range 5.7-6.4% are at increased risk for development of diabetes, and intervention by lifestyle modification may be beneficial. HgbA1c greater or equal to 6.5% is considered diagnostic of diabetes. 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 [...] 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 10/07/2015 DDD (degenerative disc disease), lumbar 10/07/2015 Degeneration of lumbar or lumbosacral intervertebral disc Diaphragmatic hernia without mention of obstruction or gangrene Elevated fasting blood sugar 11/18/2017 Enlargement of lymph nodes Erectile dysfunction 10/07/2015 Family history of dementia 10/07/2015 GERD without esophagitis 10/07/[address] 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 pt to go see Dr. 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 W/U with event monitor in past was normal per cardio. past medical history skin cancer forehead--unsure which kind Primary insomnia 10/07/2015 Psoriasis Rosacea 11/11/2016 Skin cancer screening 07/09/2023 Seeing [facility] Subclavian artery stenosis, right (HCC) 06/17/2017 US 06/16/2017 50-99% Thrombocytopenia (HCC) 10/07/2015 Waldenstrom's macroglobulinemia 10/07/2015 Current Outpatient Medications Medication Sig aspirin 81 mg chewable tablet Take 81 mg by mouth once daily. lactulose 10 gram/15 mL solution Take 1-2 table spoons a day for constipation amoxicillin/potassium clav (AUGMENTIN ORAL) Take by mouth. (Patient not taking: Reported on 10/21/2023) rituximab/hyaluronidase,leydi n (RITUXAN HYCELA SUBCUTANEOUS) Inject subcutaneously. Doxycycline Hyclate 100 mg EC tablet Take 100 mg by mouth two times a day. (Patient not taking: Reported on 10/21/2023) rosuvastatin (CRESTOR) 20 mg tablet Take 1 tablet by mouth once daily. omeprazole (PRILOSEC) 10 mg capsule Take 1 capsule by mouth once daily. (Patient taking differently: Take 10 mg by mouth as needed.) albuterol HFA (PROAIR HFA) 90 mcg/actuation inhaler Inhale 2 Puffs as instructed every 6 hours as needed. No current facility-administered medications for this visit. ALLERGIES Allergen Reactions Elavil [Amitriptyli* Other: See Comments Tired and depressed feeling PAST SURGICAL HISTORY Procedure Laterality Date 2D ECHO (EXEP) 01/30/2014 EF=60%, LVH, no valve abnormalities COLONOSCO (more content not included)... Normal [facility] CNOVon 12-09-2023 CNOV Office Visit (PODIWS ) ADARSH SORENSEN ([id number]) 1940 M Date Time Provider Department 12/09/23 1:00 PM TESTSOFIA DE LA TORRE During your visit today, we recorded the following information about you: Sakina Wise RN 12/10/2023 11:33 AM Signed AMB ROOMING INTAKE FLOWSHEET DATA Pain Pain Level: 7 Pain Location: Toe Description: Sharp Frequency: Intermittent Patient presents with: Left Great Toe - Established Patient, Follow Up, Ingrown Toenail Patient presents for follow up left toenail pain. States that he would like a permanent removal of the nail. FOUZIA 11/16/23 Sofia Boyce 12/10/2023 11:33 AM Signed FOLLOW UP PODIATRIC OFFICE VISIT Chief Complaint: This 83 year old who presents for follow up:left hallux nail thickening Patient presents to clinic for follow-up left hallux nail thickening Complains of thick nail that at one time, led to severe infection He would like to proceed with permanent nail removal today. He has no other complaints. PAIN EVALUATION 12/09/2023 1308 Pain Level: 7 Pain Location: Toe Description: Sharp Frequency: Intermittent Hemoglobin A1C Date Value Ref Range Status 04/03/2023 4.9 4.3 - 5.6 % Final Comment: [place] Diabetes Association guidelines indicate that patients with HgbA1c in the range 5.7-6.4% are at increased risk for development of diabetes, and intervention by lifestyle modification may be beneficial. HgbA1c greater or equal to 6.5% is considered diagnostic of diabetes. 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 [...] 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 10/07/2015 DDD (degenerative disc disease), lumbar 10/07/2015 Degeneration of lumbar or lumbosacral intervertebral disc Diaphragmatic hernia without mention of obstruction or gangrene Elevated fasting blood sugar 11/18/2017 Enlargement of lymph nodes Erectile dysfunction 10/07/2015 Family history of dementia 10/07/2015 GERD without esophagitis 10/07/[address] 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 pt to go see Dr. 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 W/U with event monitor in past was normal per cardio. past medical history skin cancer forehead--unsure which kind Primary insomnia 10/07/2015 Psoriasis Rosacea 11/11/2016 Skin cancer screening 07/09/2023 Seeing [facility] Subclavian artery stenosis, right (HCC) 06/17/2017 US 06/16/2017 50-99% Thrombocytopenia (HCC) 10/07/2015 Waldenstrom's macroglobulinemia 10/07/2015 Current Outpatient Medications Medication Sig aspirin 81 mg chewable tablet Take 81 mg by mouth once daily. lactulose 10 gram/15 mL solution Take 1-2 table spoons a day for constipation rituximab/hyaluronidase,leydi n (RITUXAN HYCELA SUBCUTANEOUS) Inject subcutaneously. rosuvastatin (CRESTOR) 20 mg tablet Take 1 tablet by mouth once daily. omeprazole (PRILOSEC) 10 mg capsule Take 1 capsule by mouth once daily. (Patient taking differently: Take 10 mg by mouth as needed.) albuterol HFA (PROAIR HFA) 90 mcg/actuation inhaler Inhale 2 Puffs as instructed every 6 hours as needed. amoxicillin/potassium clav (AUGMENTIN ORAL) Take by mouth. (Patient not taking: Reported on 10/21/2023) Doxycycline Hyclate 100 mg EC tablet Take 100 mg by mouth two times a day. (Patient not taking: Reported on 10/21/2023) No current facility-administered medications for this visit. ALLERGIES Allergen Reactions Elavil [Amitriptyli* Other: See Comments Tired and depressed feeling (more content not included)... Normal [facility] Abdomen/Pelvis W IV Cont ONL Yon 10-17-2023 Abdomen/Pelvis W IV Cont ONLY [facility] Services [address] [place], [place] [id number] Abdomen/Pelvis W IV Cont ONLY MR#: [id number] Acct: [id number] Name: ADARSH SORENSEN Rep #: [id number] : 1940 M 82 From: Flavio nino DO PCP: Dr. Jared Robertson MD Status: [facility] ER Study: Abdomen/Pelvis W IV Cont ONLY Date of Exam: Exam# [id number] Ordering Dr: Audi Camp DO :[id number] EXAM: CT ABDOMEN AND PELVIS WITH INTRAVENOUS CONTRAST CLINICAL INDICATION: Abdominal pain TECHNIQUE: Helically acquired images were obtained of the abdomen and pelvis with intravenous contrast. This CT exam was performed using one or more of the following dose reduction techniques: automated exposure control, adjustment of the mA and/or kV according to patient size, and/or use of iterative reconstruction technique. CONTRAST: IV 100mL Isovue-370 COMPARISON: CT abdomen and pelvis, 10/25/2014 and CTA abdomen and pelvis, 03/06/2015. FINDINGS: LOWER THORAX: Coronary artery calcifications and/or stents. Lung bases are clear. No cardiomegaly. No significant pericardial effusion. ABDOMEN: LIVER: No significant abnormality. Homogeneous. No focal mass. GALLBLADDER AND BILE DUCTS: Status post cholecystectomy. No intra- or extrahepatic biliary ductal dilation. PANCREAS: No significant abnormality. No focal cystic or solid mass. SPLEEN: Multiple low-attenuation foci within the spleen are nonspecific, too small to further characterize, although stable over the course of multiple years. No splenomegaly. ADRENALS: No significant abnormality. No nodules. KIDNEYS AND URETERS: Right lower pole renal cyst is present for which no follow-up is indicated. No hydronephrosis. STOMACH AND BOWEL: Moderate to large amount of colorectal stool without evidence of bowel obstruction. No focal inflammatory change. PELVIS: APPENDIX: A normal appendix is identified in the right lower quadrant. BLADDER: No significant abnormality. REPRODUCTIVE: Prostatomegaly. ABDOMEN and PELVIS: INTRAPERITONEAL SPACE: No significant abnormality. No ascites or other fluid collection. No free air. BONES/JOINTS: Degenerative changes of the axial and appendicular skeleton. No suspicious lytic or blastic abnormality. SOFT TISSUES: Bilateral fat-containing inguinal hernias. VASCULATURE: Status post aortobiiliac stent grafting. Atherosclerosis. No significant aneurysm. LYMPH NODES: No significant abnormality. No enlarged lymph nodes. CT/Abdomen/Pelvis W IV Cont ONLY IMPRESSION: 1. Moderate to large amount of colorectal stool without evidence of bowel obstruction. 2. Status post aortobiiliac stent grafting. Atherosclerosis. No significant aneurysm. 3. Multiple low-attenuation foci within the spleen are nonspecific, too small to further characterize, although stable over the course of multiple years. No splenomegaly. ACR White Paper guidelines (Heller, et al. JACR 2013; 10(11):833-9) suggest no follow-up is necessary. 4. Prostatomegaly. Electronically Signed: Flavio Mendez DO at 10:46 EDT , CC: Dr. Audi Camp DO; Dr. Jared Robertson MD Senior Controls Technician: Signed Normal [facility] CBC W/Diff, Automatedon 09-0 Absolute Lymph 0.53 X10 3/uL Low 0.83-4.51 [facility] Comment on above: Performed By: #### L 100.0100, L500.4050 ####[facility] [address] [place], [place], [id number] Absolute Neut 3.0 X10 3/uL Normal 2.0-7.7 [facility] Comment on above: Performed By: #### L 100.0100, L500.4050 ####[facility] [address] [place], [address] Basophils/100 WBC (Bld) 0.7 % Normal 0-1 [facility] Comment on above: Performed By: #### L 100.0100, L500.4050 ####[facility] [address] [place], [address] Eosinophils/100 WBC (Bld) 3.4 % Normal 0-5 [facility] Comment on above: Performed By: #### L 100.0100, L500.4050 ####[facility] [address] [place], [address] Erythrocyte distribution width (RBC) [Ratio] 12.9 % Normal 11.6-14.6 [facility] Comment on above: Performed By: #### L 100.0100, L500.4050 ####[facility] [address] [place], [address] Hematocrit (Bld) [Volume fraction] 37.1 % Low 40-54 [facility] Comment on above: Performed By: #### L 100.0100, L500.4050 ####[facility] [address] [place], [address] Hemoglobin (Bld) [Mass/Vol] 12.9 g/dL Low 13.0-16.5 [facility] Comment on above: Performed By: #### L 100.0100, L500.4050 ####[facility] [address] [place], [address] IG% 0.200 Normal 0.0-0.9 [facility] Comment on above: Result Comment: IG% - Immature Granulocytes (promyelocytes, myelocytes and metamyelocytes) > 1% indicates that a LEFT SHIFT is Present. Performed By: #### L 100.0100, L500.4050 ####[facility] [address] [place], [address] Lymphocytes/100 WBC (Bld) 12.7 % Low 19-41 [facility] Comment on above: Performed By: #### L 100.0100, L500.4050 ####[facility] [address] [place], [address] MCH (RBC) [Entitic mass] 31.9 pg Normal 27.0-32.0 [facility] Comment on above: Performed By: #### L 100.0100, L500.4050 ####[facility] [address] [place], [address] MCHC (RBC) [Mass/Vol] 34.8 g/dL Normal 32-36 [facility] Comment on above: Performed By: #### L 100.0100, L500.4050 ####[facility] [address] [place], [address] MCV (RBC) [Entitic vol] 91.6 fL Normal 80-94 [facility] Comment on above: Performed By: #### L 100.0100, L500.4050 ####[facility] [address] [place], [address] Monocytes/100 WBC (Bld) 10.3 % High 0-10 [facility] Comment on above: Performed By: #### L 100.0100, L500.4050 ####[facility] [address] [place], [address] Neutrophils/100 WBC (Bld) 72.7 % High 47-70 [facility] Comment on above: Performed By: #### L 100.0100, L500.4050 ####[facility] [address] [place], [address] Nucleated RBC (Bld) [#/Vol] 0 10*3/uL Normal 0-5 [facility] Comment on above: Performed By: #### L 100.0100, L500.4050 ####[facility] [address] [place], [address] Platelet mean volume (Bld) [Entitic vol] 10.4 fL Normal 6.2-12.0 [facility] Comment on above: Performed By: #### L 100.0100, L500.4050 ####[facility] [address] [place], [address] Platelets (Bld) [#/Vol] 145 10*3/uL Low 150-450 [facility] Comment on above: Performed By: #### L 100.0100, L500.4050 ####[facility] [address] [place], [address] RBC (Bld) [#/Vol] 4.05 10*6/uL Low 4.6-6.2 [facility] Comment on above: Performed By: #### L 100.0100, L500.4050 ####[facility] [address] [place], [address] RDW SD 43.8 fl Normal 35.1-43.9 [facility] Comment on above: Performed By: #### L 100.0100, L500.4050 ####[facility] [address] [place], [address] WBC (Bld) [#/Vol] 4.2 10*3/uL Low 4.4-11.0 [facility] Comment on above: Performed By: #### L 100.0100, L500.4050 ####[facility] [address] [place], [address] Comprehensive Metabolic Prof ilon 10-17-2023 Albumin [Mass/Vol] 3.3 g/dL Normal 3.2-5.0 [facility] Comment on above: Performed By: #### L 100.0100, L500.4050 ####[facility] [address] [place], [address] Albumin/Globulin [Mass ratio] 1.1 {ratio} Normal 0.9-2.4 [facility] Comment on above: Performed By: #### L 100.0100, L500.4050 ####[facility] [address] [place], [address] ALK P 90 U/L Normal 45-117 [facility] Comment on above: Performed By: #### L 100.0100, L500.4050 ####[facility] [address] [place], [address] ALT [Catalytic activity/Vol] 17 U/L Normal 16-61 [facility] Comment on above: Result Comment: Slig ht Lipemia, Result may be falsely increased. Performed By: #### L 100.0100, L500.4050 ####[facility] [address] [place], [address] AST [Catalytic activity/Vol] 16 U/L Normal 15-37 [facility] Comment on above: Result Comment: Slig ht Lipemia, Result may be falsely increased. Performed By: #### L 100.0100, L500.4050 ####[facility] [address] [place], [address] Bilirubin [Mass/Vol] 1.20 mg/dL High 0.20-1.00 [facility] Comment on above: Result Comment: Slig ht Lipemia, Result may be falsely increased. For patients on eltrombopag therapy, use of Dimension [place] TBIL is not recommended. Performed By: #### L 100.0100, L500.4050 ####[facility] [address] [place], [address] BUN/CRE 17.8 RATIO Normal 10-20 [facility] Comment on above: Performed By: #### L 100.0100, L500.4050 ####[facility] [address] [place], [address] CA,Total 8.9 mg/dL Normal 8.5-10.1 [facility] Comment on above: Result Comment: Slig ht Lipemia, Result may be falsely increased. Performed By: #### L 100.0100, L500.4050 ####[facility] [id number] [place], [address] Chloride [Moles/Vol] 107 mmol/L Normal 98-107 [facility] Comment on above: Performed By: #### L 100.0100, L500.4050 ####[facility] [address] [place], [address] CO2 [Moles/Vol] 28.0 mmol/L Normal 21.0-32.0 [facility] Comment on above: Result Comment: Slig ht Lipemia, Result may be falsely increased. Performed By: #### L 100.0100, L500.4050 ####[facility] [address] [place], [address] Creatinine [Mass/Vol] 1.07 mg/dL Normal 0.70-1.30 [facility] Comment on above: Result Comment: Slig ht Lipemia, Result may be falsely increased. The validity of the calculated GFR GFRAA in patients over 70 years has not been determined. Clinical correlation is essential. Performed By: #### L 100.0100, L500.4050 ####[facility] [address] [place], [address] ECRCL 56.69 ml/min Normal [facility] Comment on above: Performed By: #### L 100.0100, L500.4050 ####[facility] [address] [place], [address] EST GFR - AA 85 mL/min Normal >60 [facility] Comment on above: Result Comment: Afri can Thai GFR Calc Performed By: #### L 100.0100, L500.4050 ####[facility] [address] [place], [address] GAP 4 Low 5-15 [facility] Comment on above: Performed By: #### L 100.0100, L500.4050 ####[facility] [address] [place], [address] GFR/1.73 sq M.predicted among non-blacks MDRD (S/P/Bld) [Vol rate/Area] 70 mL/min/{1.73_m2} Normal >60 [facility] Comment on above: Result Comment: Non- GFR Calc Performed By: #### L 100.0100, L500.4050 ####[facility] [address] [place], [address] Globulin (S) [Mass/Vol] 3.1 g/dL Normal 2.2-4.2 [facility] Comment on above: Performed By: #### L 100.0100, L500.4050 ####[facility] [address] [place], [address] Glucose [Mass/Vol] 99 mg/dL Normal 74-106 [facility] Comment on above: Result Comment: Slig ht Lipemia, Result may be falsely increased. Performed By: #### L 100.0100, L500.4050 ####[facility] [address] [place], [address] Potassium [Moles/Vol] 4.0 mmol/L Normal 3.5-5.1 [facility] Comment on above: Result Comment: Slig ht Lipemia, Result may be falsely increased. Performed By: #### L 100.0100, L500.4050 ####[facility] [address] [place], [address] Sodium [Moles/Vol] 139 mmol/L Normal 136-145 [facility] Comment on above: Performed By: #### L 100.0100, L500.4050 ####[facility] [address] [place], [address] T PROT 6.4 g/dL Normal 6.4-8.2 [facility] Comment on above: Result Comment: Slig ht Lipemia, Result may be falsely increased. Performed By: #### L 100.0100, L500.4050 ####[facility] [address] [place], [address] Urea nitrogen [Mass/Vol] 19 mg/dL High 7-18 [facility] Comment on above: Result Comment: Slig ht Lipemia, Result may be falsely increased. Performed By: #### L 100.0100, L500.4050 ####[facility] [address] [place], [address] Emergency Department Summary on 10-17-2023 Emergency Department Summary [facility] Medical Records Department [address] [place] [address] Emergency Department Summary 10/17/23 MR#: [id number] Acct: [id number] Name: ADARSH SORENSEN Rep #: [id number] : 1940 82 From: [place] DO PCP: Dr. Jared Robertson MD Status:DEP ER Location: ED HPI History of Present Illness Chief Complaint: Constipation Informant: patient Onset/Context/Timing Onset: Month(s) (1) Context: Gradual Onset Timing: Continuous Quality: Sharp Location: Upper abdomen Worsened by: Nothing Relieved by: Nothing Narrative Narrative: Patient presents with constipation that has been constant for the past month. Patient states he has only had about 3-4 bowel movements in the last month. Patient states his last bowel movement was 1 week ago. Patient states he tried an enema at home with no improvement. Patient states he contacted Dr. Mathew's office and the nurse there told him to come to the emergency department. Patient admits to some occasional sharp pains over his upper abdomen. Patient states he is passing flatus. Patient states nothing makes his symptoms better nothing makes them worse. [facility] Medical History AAA (abdominal aortic aneurysm) without rupture Anemia Arthritis Back pain Basal cell carcinoma (BCC) in situ of skin Blood disorder Cancer Cardiology follow-up encounter Difficulty swallowing Fatigue Former smoker Gout High cholesterol History of echocardiogram History of hiatal hernia History of IBS History of stress test Hyperlipidemia Intractable low back pain Leg cramps Lumbosacral strain Lymphoma Neuropathy associated with anti-MAG antibody Palpitations Pure hypercholesterolemia Shortness of breath Sinus bradycardia Wears glasses Home Medications ???Medication ???Instructions ???Recorded ???Last Taken ???Type omeprazole 20 mg capsule,delayed 40 mg PO DAILY PRN ACID REFLUX 01/15/22 08/30/22 History release rosuvastatin 20 mg tablet 20 mg PO QHS CHOLESTEROL 08/31/22 08/29/22 History doxycycline hyclate 100 mg capsule 100 mg PO BID #60 caps 06/02/23 Unknown Rx cephalexin 500 mg capsule 500 mg PO Q6 #40 CAPSULES 06/20/23 Unknown Rx Allergy/AdvReac Type Severity Reaction Status Date / Time No Known Allergies Allergy Verified 10/17/23 08:30 Family History Father Colon cancer Mother Alzheimers disease Brother Multiple sclerosis Surgical History aorto bi-common iliac stent graft ( 11/2014) History of AAA (abdominal aortic aneurysm) repair History of cardiac catheterization History of cholecystectomy History of colonoscopy ( 11/2021) History of esophagogastroduodenoscopy (EGD) ( 11/2021) Status post laparoscopic Mika fundoplication Social History Smoking Status: Former smoker how long ago did patient quit smokin alcohol intake: current alcohol intake frequency: a few times a week Alcohol type: wine and hard liquor substance use type: does not use caffeine: Yes Type: coffee what type of physical activity do you participate in: none seatbelt use: always do you feel safe at home: Yes EXAM Physical Exam Const Vital Signs: 10/17/23 08:17 09/01/24 10:16 10/17/23 12:00 Temperature 96.6 F L Temperature Source Temporal Pulse Rate 62 71 82 Respiratory Rate 16 14 16 Blood Pressure 116/77 112/81 H 115/83 H Blood Pressure Mean 90 91 93 Pulse Ox 97 98 98 Oxygen Delivery Method Room Air Room Air Room Air MDM MDM MDM Narrative Medical decision making narrative: Differential diagnosis includes bowel obstruction, constipation, electrolyte abnormality, dehydration, and urinary tract infection. CT scan of the abdomen pelvis will be obtained to assess for bowel obstruction and constipation. CBC will be obtained to assess for leukocytosis and anemia. Comprehensive metabolic profile will be obtained to assess for hepatic function, renal function, and electrolyte abnormality. Urinalysis will be obtained to assess for urinary tract infection and hematuria. Lab Data Attestation: I reviewed the patient's lab results. Lab results narrative: CBC was reviewed. White blood cell count was slightly low at 4.2. There is a mild anemia with a hemoglobin of 12.9 and hematocrit 37.1. Comprehensive metabolic profile was reviewed and was within normal limits. Urinalysis was reviewed. There is no evidence of urinary tract infection or hematuria. Labs: Laboratory Results - last 24 hr 10/17/23 10/17/23 09:15 10:20 WBC 4.2 L RBC 4.05 L Hgb 12.9 L Hct 37.1 L MCV 91.6 MCH 31.9 MCHC 34.8 (more content not included)... Normal [facility] Urinalysis, Completeon 10-16 BACTERIA 0 SEEN Normal None Seen [facility] Comment on above: Order Comment: CLEAN CATCH Performed By: #### L 400.0001 #### [facility] [address] [place], [address] EPI,SQUAMOUS 0 SEEN Normal 0-5 [facility] Comment on above: Order Comment: CLEAN CATCH Performed By: #### L 400.0001 #### [facility] [address] [place], [address] Mucus Ql (Urine sed) 0 SEEN Normal [facility] Comment on above: Order Comment: CLEAN CATCH Performed By: #### L 400.0001 #### [facility] [address] [place], [address] RBC 0 SEEN Normal 0-5 [facility] Comment on above: Order Comment: CLEAN CATCH Performed By: #### L 400.0001 #### [facility] [address] [place], [address] WBC 0 SEEN Normal 0-5 [facility] Comment on above: Order Comment: CLEAN CATCH Performed By: #### L 400.0001 #### [facility] [address] [place], [address] IMMUNOGLOBULIN Garrett IgG [Mass/Vol] 548 mg/dL Low 700 - 1600 mg/dL [facility] IgG [Mass/Vol]on 09-21-2023 Interpretation and review of laboratory results Abnormal [facility] MR Foot - left WO contraston 08-07-2023 IMPRESSION: GREAT TOE CELLULITIS WITH BONE MARROW EDEMA IN BOTH THE DISTAL AND PROXIMAL TO THE GREAT TOE. GIVEN THE HISTORY, FINDINGS LIKELY REPRESENT OSTEOMYELITIS. NO FLUID COLLECTIONS SEEN. 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 Swelling of left hallux ipj Technique: Routine MRI of the forefoot ; Comparison: None Result: BONE MARROW: Ill-defined bone marrow edema involving the entire distal phalanx of the great toe and most of the proximal phalanx of the great toe. There is no significant joint effusion. No cortical erosion identified. There is mildly decreased T1 signal in both of these phalanges as well. Mild bone marrow edema is also present in the medial subsesamoid joint. Trace bone marrow edema on both sides of the first tarsometatarsal joint. Nonunited fracture of the fifth metatarsal styloid. CARTILAGE: No discrete articular cartilage abnormalities seen. TENDONS: The flexor and extensor tendons are intact and normal appearing. PLANTAR PLATES: The plantar plates are intact appearing. JOINT FLUID: No significant joint effusion seen. INTERMETATARSAL SPACES: No evidence of Salazar's neuroma. LISFRANC LIGAMENT: Intact PLANTAR APONEUROSIS: The visualized portions of the plantar aponeurosis in within normal limits. MUSCLES: Mild ill-defined edema in the intermetatarsal musculature plantar musculature predominantly medially. No fluid collections. OTHER: Subcutaneous edema in the great toe and dorsum of the forefoot. 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 Swelling of left hallux ipj Technique: Routine MRI of the forefoot ; Comparison: None Result: BONE MARROW: Ill-defined bone marrow edema involving the entire distal phalanx of the great toe and most of the proximal phalanx of the great toe. There is no significant joint effusion. No cortical erosion identified. There is mildly decreased T1 signal in both of these phalanges as well. Mild bone marrow edema is also present in the medial subsesamoid joint. Trace bone marrow edema on both sides of the first tarsometatarsal joint. Nonunited fracture of the fifth metatarsal styloid. CARTILAGE: No discrete articular cartilage abnormalities seen. TENDONS: The flexor and extensor tendons are intact and normal appearing. PLANTAR PLATES: The plantar plates are intact appearing. JOINT FLUID: No significant joint effusion seen. INTERMETATARSAL SPACES: No evidence of Salazar's neuroma. LISFRANC LIGAMENT: Intact PLANTAR APONEUROSIS: The visualized portions of the plantar aponeurosis in within normal limits. MUSCLES: Mild ill-defined edema in the intermetatarsal musculature plantar musculature predominantly medially. No fluid collections. OTHER: Subcutaneous edema in the great toe and dorsum of the forefoot. IMPRESSION IMPRESSION: GREAT TOE CELLULITIS WITH BONE MARROW EDEMA IN BOTH THE DISTAL AND PROXIMAL TO THE GREAT TOE. GIVEN THE HISTORY, FINDINGS LIKELY REPRESENT OSTEOMYELITIS. NO FLUID COLLECTIONS SEEN. Senior Controls Technician: [facility] Transcribe Date/Time: Aug 07 2023 2:35P Dictated by : NOEMY BAEZ MD This examination was interpreted and the report reviewed and electronically signed by: NOEMY BAEZ MD on Aug 07 2023 2:39PM EST [facility] Radiology Study observation (narrative) [facility] MR Foot - left WO contrastOr dered By: Ccf Provider on 08-07-2023 [facility] XR Toes - left 3 Viewson IMPRESSION: Findings as described above. Senior Controls Technician: [facility] Transcribe Date/Time: Aug 06 2023 4:32P Dictated by : ALEXUS MORSE MD This examination was interpreted and the report reviewed and electronically signed by: ALEXUS MORSE MD on Aug 06 2023 4:35PM EST DIVISION OF RADIOLOGY * * *Final Report* * * DATE OF EXAM: Aug 06 2023 2:50PM [id number] [id number] - XR TOE 3V AP/LAT/OBL LT / PROCEDURE REASON: multiple diagnoses * * * * Physician Interpretation * * * * EXAM TITLE: XR TOE 3V AP/LAT/OBL LT EXAM DATE/TIME: 08/06/2023 2:50 PM COMPARISON: X-ray toe on 07/06/2023 CLINICAL INDICATION/HISTORY: Infected ingrowing toe nail. TECHNIQUE: AP, lateral and oblique views of the first digit of the left foot are presented. FINDINGS: No new fractures identified. The previously mentioned subtle nondisplaced fracture in the head of the proximal phalanx is less clearly visualized. Multiple lucencies along the interphalangeal joint is again demonstrated. The bones are somewhat osteopenic. There is similar soft tissue swelling. DIVISION OF RADIOLOGY Provider, Megan Camila [facility] - 08/06/2023 * * *Final Report* * * DATE OF EXAM: Aug 06 2023 2:50PM [id number] - XR TOE 3V AP/LAT/OBL LT / PROCEDURE REASON: multiple diagnoses * * * * Physician Interpretation * * * * EXAM TITLE: XR TOE 3V AP/LAT/OBL LT EXAM DATE/TIME: 08/06/2023 2:50 PM COMPARISON: X-ray toe on 07/06/2023 CLINICAL INDICATION/HISTORY: Infected ingrowing toe nail. TECHNIQUE: AP, lateral and oblique views of the first digit of the left foot are presented. FINDINGS: No new fractures identified. The previously mentioned subtle nondisplaced fracture in the head of the proximal phalanx is less clearly visualized. Multiple lucencies along the interphalangeal joint is again demonstrated. The bones are somewhat osteopenic. There is similar soft tissue swelling. IMPRESSION IMPRESSION: Findings as described above. Senior Controls Technician: [facility] Transcribe Date/Time: Aug 06 2023 4:32P Dictated by : ALEXUS MORSE MD This examination was interpreted and the report reviewed and electronically signed by: ALEXUS MORSE MD on Aug 06 2023 4:35PM EST [facility] Radiology Study observation (narrative) [facility] XR Toes - left 3 ViewsOrdere d By: Ccf Provider on 08-06-2023 [facility] BETA 2 MICROGLOBULIN SERUMon 07-29-2023 Beta 2 Microglobulin 3.49 mg/L High 0.80-2.34 [facility] Comment on above: Order Comment: Call for critical's [phone] Aguilar [phone] Performed By: #### B 2M #### [facility] (DEFAULT) [address] [place] [address] CBC AND ELECTRONIC DIFFon Basophils (Bld) [#/Vol] K/uL 0.00 - 0.09 K/uL [facility] Basophils/100 WBC (Bld) 0.4 % [facility] Differential cell count method Nom (Bld) Electronic Differential [facility] Eosinophils (Bld) [#/Vol] 0.11 10*3/uL 0.00 - 0.48 K/uL [facility] Eosinophils/100 WBC (Bld) 1.6 % [facility] Erythrocyte distribution width (RBC) [Ratio] 12.9 % 10.9 - 14.3 % [facility] Hematocrit (Bld) [Volume fraction] 38.4 % Low 39.6 - 48.8 % [facility] Hemoglobin (Bld) [Mass/Vol] 13.3 g/dL Low 13.4 - 16.8 g/dL [facility] Immature granulocytes (Bld) [#/Vol] K/uL NINF - 0.07 K/uL [facility] Immature granulocytes/100 WBC (Bld) 0.4 % [facility] Interpretation and review of laboratory results Abnormal [facility] Lymphocytes (Bld) [#/Vol] 0.82 10*3/uL Low 0.83 - 3.57 K/uL [facility] Lymphocytes/100 WBC (Bld) 11.7 % [facility] MCH (RBC) [Entitic mass] 32.0 pg 26.1 - 33.3 pg [facility] MCHC (RBC) [Mass/Vol] 34.6 g/dL 31.9 - 36.5 g/dL [facility] MCV (RBC) [Entitic vol] 92.5 fL 79.0 - 94.5 fL [facility] Monocytes (Bld) [#/Vol] 0.72 10*3/uL 0.24 - 0.93 K/uL [facility] Monocytes/100 WBC (Bld) 10.3 % [facility] Neutrophils (Bld) [#/Vol] 5.29 10*3/uL 1.57 - 6.19 K/uL [facility] Nucleated RBC/100 WBC (Bld) [Ratio] 0.0 % [facility] Platelet mean volume (Bld) [Entitic vol] 10.1 fL 8.7 - 12.3 fL [facility] Platelets (Bld) [#/Vol] 155 10*3/uL 146 - 337 K/uL [facility] RBC (Bld) [#/Vol] 4.15 10*6/uL Low [facility] Segmented neutrophils/100 WBC (Bld) 75.6 % [facility] WBC (Bld) [#/Vol] 7.00 10*3/uL 3.73 - 10.10 K/uL [facility] Baso Auto < Normal 0.00-0.09 [facility] Comment on above: Order Comment: Maddo cks Performed By: #### Y SVIS #### [facility] (DEFAULT) [address] [place] [address] Basophils/100 WBC (Bld) 0.4 % Normal [facility] Comment on above: Order Comment: Maddo cks Performed By: #### Y SVIS #### [facility] (DEFAULT) [address] [place] [address] DIFF STATUS Electronic Differential Normal [facility] Comment on above: Order Comment: Maddo cks Performed By: #### Y SVIS #### [facility] (DEFAULT) [address] [place] [address] Eosinophils (Bld) [#/Vol] 0.11 10*3/uL Normal 0.00-0.48 [facility] Comment on above: Order Comment: Maddo cks Performed By: #### Y SVIS #### [facility] (DEFAULT) [address] [place] [address] Eosinophils/100 WBC (Bld) 1.6 % Normal [facility] Comment on above: Order Comment: Maddo cks Performed By: #### Y SVIS #### [facility] (DEFAULT) [address] [place] [address] Hematocrit (Bld) [Volume fraction] 38.4 % Low 39.6-48.8 [facility] Comment on above: Order Comment: Maddo cks Performed By: #### Y SVIS #### [facility] (DEFAULT) [address] [place] [address] Hemoglobin (Bld) [Mass/Vol] 13.3 g/dL Low 13.4-16.8 [facility] Comment on above: Order Comment: Maddo cks Performed By: #### Y SVIS #### [facility] (DEFAULT) [address] [address] Immature Grans % 0.4 % Normal [facility] Comment on above: Order Comment: Maddo cks Performed By: #### Y SVIS #### [facility] (DEFAULT) [address] [address] Immature Grans Absolute < Normal <=0.07 [facility] Comment on above: Order Comment: Maddo cks Performed By: #### Y SVIS #### [facility] (DEFAULT) [address] [address] Lymphocytes (Bld) [#/Vol] 0.82 10*3/uL Low 0.83-3.57 [facility] Comment on above: Order Comment: Maddo cks Performed By: #### Y SVIS #### [facility] (DEFAULT) [address] [address] Lymphocytes/100 WBC (Bld) 11.7 % Normal [facility] Comment on above: Order Comment: Maddo cks Performed By: #### Y SVIS #### [facility] (DEFAULT) [address] [address] MCV (RBC) [Entitic vol] 92.5 fL Normal 79.0-94.5 [facility] Comment on above: Order Comment: Maddo cks Performed By: #### Y SVIS #### [facility] (DEFAULT) [address] [address] Mean Cell Hgb 32.0 pg Normal 26.1-33.3 [facility] Comment on above: Order Comment: Maddo cks Performed By: #### Y SVIS #### [facility] (DEFAULT) [address] [address] Mean Cell Hgb Conc 34.6 g/dL Normal 31.9-36.5 [facility] Comment on above: Order Comment: Maddo cks Performed By: #### Y SVIS #### [facility] (DEFAULT) [address] [place] [address] Monocytes (Bld) [#/Vol] 0.72 10*3/uL Normal 0.24-0.93 [facility] Comment on above: Order Comment: Maddo cks Performed By: #### Y SVIS #### [facility] (DEFAULT) [address] [place] [address] Monocytes/100 WBC (Bld) 10.3 % Normal [facility] Comment on above: Order Comment: Maddo cks Performed By: #### Y SVIS #### [facility] (DEFAULT) [address] [place] [address] Nucleated RBC 0.0 /100 WBC Normal <=0.2 [facility] Comment on above: Order Comment: Maddo cks Performed By: #### Y SVIS #### [facility] (DEFAULT) [address] [place] [address] Platelet mean volume (Bld) [Entitic vol] 10.1 fL Normal 8.7-12.3 [facility] Comment on above: Order Comment: Maddo cks Performed By: #### Y SVIS #### [facility] (DEFAULT) [address] [place] [address] Platelets (Bld) [#/Vol] 155 10*3/uL Normal 146-337 [facility] Comment on above: Order Comment: Maddo cks Performed By: #### Y SVIS #### [facility] (DEFAULT) [address] [place] [address] RBC (Bld) [#/Vol] 4.15 10*6/uL Low 4.38-5.83 [facility] Comment on above: Order Comment: Maddo cks Performed By: #### Y SVIS #### [facility] (DEFAULT) [address] [place] [address] RBC Distribution 12.9 % Normal 10.9-14.3 [facility] Comment on above: Order Comment: Maddo cks Performed By: #### Y SVIS #### [facility] (DEFAULT) [address] [place] [address] Segs + Bands Auto 75.6 % Normal [facility] Comment on above: Order Comment: Maddo cks Performed By: #### Y SVIS #### [facility] (DEFAULT) [address] [place] [address] Segs + Bands,Absolute Auto 5.29 K/uL Normal 1.57-6.19 [facility] Comment on above: Order Comment: Maddo cks Performed By: #### Y SVIS #### [facility] (DEFAULT) [address] [place] [address] WBC (Bld) [#/Vol] 7.00 10*3/uL Normal 3.73-10.10 [facility] Comment on above: Order Comment: Maddo cks Performed By: #### Y SVIS #### [facility] (DEFAULT) [address] [place] [address] [address] P[address] [facility] 07-29-2023 Albumin [Mass/Vol] 4.0 g/dL 3.5 - 5.0 g/dL [facility] ALP [Catalytic activity/Vol] 74 U/L 32 - 126 U/L [facility] ALT [Catalytic activity/Vol] 10 U/L 10 - 52 U/L [facility] Anion gap [Moles/Vol] 10 mmol/L 7 - 17 mmol/L [facility] AST [Catalytic activity/Vol] 15 U/L 10 - 39 U/L [facility] Bilirubin [Mass/Vol] 1.0 mg/dL NINF - 1.5 mg/dL [facility] Calcium [Mass/Vol] 9.2 mg/dL 8.6 - 10. 5 mg/dL [facility] Chloride [Moles/Vol] 103 mmol/L 98 - 10 8 mmol/L [facility] CO2 [Moles/Vol] 28 mmol/L 21 - 31 mmol/L [facility] Creatinine [Mass/Vol] 1.14 mg/dL 0.70 - 1.30 mg/dL [facility] eGFR, CKD-EPI, Male 64 - PINF [facility] Comment on above: Reported eGFR is bas ed on the CKD-EPI 2020 equation using creatinine, age, and sex. Glucose [Mass/Vol] 97 mg/dL 70 - 99 mg/dL [facility] Osmolality Calc [Osmolality] 291 [facility] Potassium [Moles/Vol] 3.9 mmol/L 3.5 - 5.0 mmol/L [facility] Protein [Mass/Vol] 6.9 g/dL 6.4 - 8.3 g/dL [facility] Sodium [Moles/Vol] 137 mmol/L 135 - 145 mmol/L [facility] Urea nitrogen [Mass/Vol] 25 mg/dL 7 - 25 mg/dL [facility] Urea nitrogen/Creatinine [Mass ratio] 22 mg/mg [facility] Albumin [Mass/Vol] 4.0 g/dL Normal 3.5-5.0 [facility] Comment on above: Order Comment: Maddo cks Performed By: #### Y SVIS #### [facility] (DEFAULT) [address] [address] ALP [Catalytic activity/Vol] 74 U/L Normal 32-126 [facility] Comment on above: Order Comment: Maddo cks Performed By: #### Y SVIS #### [facility] (DEFAULT) [address] [address] ALT [Catalytic activity/Vol] 10 U/L Normal 10-52 [facility] Comment on above: Order Comment: Maddo cks Performed By: #### Y SVIS #### [facility] (DEFAULT) [address] [address] Anion gap [Moles/Vol] 10 mmol/L Normal 7-17 [facility] Comment on above: Order Comment: Maddo cks Performed By: #### Y SVIS #### [facility] (DEFAULT) [address] [place] [address]61 AST [Catalytic activity/Vol] 15 U/L Normal 10-39 [facility] Comment on above: Order Comment: Maddo cks Performed By: #### Y SVIS #### [facility] (DEFAULT) [address] [place] [address] Bilirubin [Mass/Vol] 1.0 mg/dL Normal <1.5 [facility] Comment on above: Order Comment: Maddo cks Performed By: #### Y SVIS #### [facility] (DEFAULT) [address] [place] [address]001 Calcium [Mass/Vol] 9.2 mg/dL Normal 8.6-10.5 [facility] Comment on above: Order Comment: Maddo cks Performed By: #### Y SVIS #### [facility] (DEFAULT) [address] [place] [address] Chloride [Moles/Vol] 103 mmol/L Normal 98-108 [facility] Comment on above: Order Comment: Maddo cks Performed By: #### Y SVIS #### [facility] (DEFAULT) [address] [place] [address] CO2 [Moles/Vol] 28 mmol/L Normal 21-31 [facility] Comment on above: Order Comment: Maddo cks Performed By: #### Y SVIS #### [facility] (DEFAULT) [address] [place] [address] Creatinine [Mass/Vol] 1.14 mg/dL Normal 0.70-1.30 [facility] Comment on above: Order Comment: Maddo cks Performed By: #### Y SVIS #### [facility] (DEFAULT) [address] [place] [address] GFR/1.73 sq M.predicted among non-blacks MDRD (S/P/Bld) [Vol rate/Area] 64 mL/min/{1.73_m2} Normal >=60 [facility] Comment on above: Order Comment: Maddo cks Result Comment: Repo rted eGFR is based on the CKD-EPI 2020 equation using creatinine, age, and sex. Performed By: #### Y SVIS #### [facility] (DEFAULT) [address] [place] [address] Glucose [Mass/Vol] 97 mg/dL Normal 70-99 [facility] Comment on above: Order Comment: Maddo cks Performed By: #### Y SVIS #### [facility] (DEFAULT) [address] [place] [address] Osmolality [Osmolality] 291 mosm/kg Normal 278-305 [facility] Comment on above: Order Comment: Maddo cks Performed By: #### Y SVIS #### [facility] (DEFAULT) [address] [place] [address] Potassium [Moles/Vol] 3.9 mmol/L Normal 3.5-5.0 [facility] Comment on above: Order Comment: Maddo cks Performed By: #### Y SVIS #### [facility] (DEFAULT) [address] [place] [address] Protein [Mass/Vol] 6.9 g/dL Normal 6.4-8.3 [facility] Comment on above: Order Comment: Maddo cks Performed By: #### Y SVIS #### [facility] (DEFAULT) [address] [place] [address]253 Sodium [Moles/Vol] 137 mmol/L Normal 135-145 [facility] Comment on above: Order Comment: Maddo cks Performed By: #### Y SVIS #### [facility] (DEFAULT) [address] [place] [address]45 Urea nitrogen [Mass/Vol] 25 mg/dL Normal 7-25 [facility] Comment on above: Order Comment: Maddo cks Performed By: #### Y SVIS #### [facility] (DEFAULT) [address] [place] [address]015 Urea nitrogen/Creatinine [Mass ratio] 22 mg/mg Normal [facility] Comment on above: Order Comment: Maddo cks Performed By: #### Y SVIS #### [facility] (DEFAULT) [address] [place] [address] IMMUNOFIXATION SERUMon 07-28 Monoclonal 1 320.0 mg/dL High <=0.0 [facility] Comment on above: Order Comment: Maddo cks Performed By: #### Y SVIS #### [facility] (DEFAULT) [address] [place] [address] REVIEWED BY: Young Harden MD [facility] Comment on above: Order Comment: Maddo cks Performed By: #### Y SVIS #### [facility] (DEFAULT) [address] [place] [address]98 Serum Immunofixation IgM kappa monoclona l protein is present. Normal [facility] Comment on above: Order Comment: Maddo cks Performed By: #### Y SVIS #### [facility] (DEFAULT) [address] [place] [address] IMMUNOGLOBULINS IGG IGA IGMO rdered By: Nola Barton on 07-29-2023 IgA [Mass/Vol] 109 mg/dL 90 - 410 mg/dL [facility] IgG [Mass/Vol] 533 mg/dL Low 600 - 1560 mg/dL [facility] IgM [Mass/Vol] 521 mg/dL High 30 - 360 mg/dL [facility] Interpretation and review of laboratory results Abnormal [facility] IMMUNOGLOBULINS IGG IGA IGMo n 07-29-2023 IgA [Mass/Vol] 109 mg/dL Normal 90-410 [facility] Comment on above: Order Comment: Call for critical's [phone] Aguilar [phone] Performed By: #### Q IMM #### [facility] (DEFAULT) [address] [place] [address] IgG [Mass/Vol] 533 mg/dL Low 600-1560 [facility] Comment on above: Order Comment: Call for critical's [phone] Aguilar [phone] Performed By: #### Q IMM #### [facility] (DEFAULT) [address] [address] IgM [Mass/Vol] 521 mg/dL High 30-360 [facility] Comment on above: Order Comment: Call for critical's [phone] Aguilar [phone] Performed By: #### Q IMM #### [facility] (DEFAULT) [address] [address] LACTATE DEHYDROGENASEon 07-16 Interpretation and review of laboratory results Normal [facility] LDH Lactate to pyruvate reaction [Catalytic activity/Vol] 133 U/L 100 - 190 U/L [facility] LD Total 133 U/L Normal 100-190 [facility] Comment on above: Order Comment: Maddo cks Performed By: #### Y SVIS #### [facility] (DEFAULT) [address] [address] No Panel Informationon 07-28 [facility] PROTEIN ELECTROPHORESISon Albumin [Mass/Vol] 3.6 g/dL Normal 3.5-5.0 [facility] Comment on above: Order Comment: Maddo cks Performed By: #### Y SVIS #### [facility] (DEFAULT) [address] [address] Alpha 1 0.5 g/dL High 0.2-0.4 [facility] Comment on above: Order Comment: Maddo cks Performed By: #### Y SVIS #### [facility] (DEFAULT) [address] [address] Alpha 2 0.7 g/dL Normal 0.5-1.0 [facility] Comment on above: Order Comment: Maddo cks Performed By: #### Y SVIS #### [facility] (DEFAULT) [address] [place] [address] Beta 0.7 g/dL Normal 0.5-1.1 [facility] Comment on above: Order Comment: Maddo cks Performed By: #### Y SVIS #### [facility] (DEFAULT) [address] [place] [address] Gamma 0.8 g/dL Normal 0.6-1.5 [facility] Comment on above: Order Comment: Maddo cks Performed By: #### Y SVIS #### [facility] (DEFAULT) [address] [place] [address] Interpretation By: Young Harden MD Normal [facility] Comment on above: Order Comment: Maddo cks Performed By: #### Y SVIS #### [facility] (DEFAULT) [address] [place] [address] Spe Interpretation Normal [facility] Comment on above: Order Comment: Maddo cks Result Comment: Ther e is a zone of restriction in the gamma region with normal remaining polyclonal immunoglobulins. This pattern suggests monoclonal or oligoclonal proteins that may occur in chronic inflammatory diseases (e.g., of liver), or may be idiopathic, or may represent a monoclonal gammopathy. Alpha 1 region is increased which is most often an acute phase response. Performed By: #### Y SVIS #### [facility] (DEFAULT) [address] [place] [address] SPE SERUM TOTAL PROTEINon Interpretation and review of laboratory results Normal [facility] Protein [Mass/Vol] 6.4 g/dL 6.4 - 8.3 g/dL [facility] Protein [Mass/Vol] 6.4 g/dL Normal 6.4-8.3 [facility] Comment on above: Order Comment: Maddo cks Performed By: #### Y SVIS #### [facility] (DEFAULT) [address] [place] [address] VISCOSITY, SERUMon 4 Viscosity, Serum 1.1 cpoise Normal <=1.5 [facility] Comment on above: Order Comment: Call for critical's [phone] Aguilar [phone] Result Comment: ADDITIONAL INFORMATION This test has been modified from the obstetric assistant's instructions. Its performance characteristics were determined by [facility] in a manner consistent with CLIA requirements. This test has not been cleared or approved by the U.S. Food and Drug Administration. Test Performed by: [place] [id number] [employer] Miller: Irasema Quach Ph.D.; CLIA# [id number] Performed By: #### Y SVIS #### [facility] (DEFAULT) [address] [address] MAG ANTIBODY,IGM ELISAon Interpretation and review of laboratory results Abnormal [facility] MAG Ab IgM, FARIDA >35042 High 0 - 999 TU [facility] Comment on above: INTERPRETIVE INFORMA TION: MAG Antibody, IgM FARIDA An elevated IgM antibody concentration greater than 999 TU against myelin-associated glycoprotein (MAG) suggests active demyelination in peripheral neuropathy. A normal concentration (less than 999 TU) generally rules out an anti-MAG antibody-associated peripheral neuropathy. TU=Titer Units This test was developed and its performance characteristics determined by [facility]. It has not been cleared or approved by the [place] Food and Drug Administration. This test was performed in a CLIA certified laboratory and is intended for clinical purposes. Performed By: [facility] [address] [place] [address] Websphere Developer: Marcell Matthews MD, PhD CLIA Number: [id number] [facility] XR Toes - left 3 Viewson IMPRESSION: 1. Soft tissue swelling surrounding the great toe. 2. Periarticular osteopenia in the region of the first interphalangeal joint. Early osteomyelitis is not excluded. Consider further evaluation with MRI as clinically indicated. 3. Suggestion of a subtle nondisplaced fracture of the lateral and distal aspect of the first proximal phalanx. Senior Controls Technician: PSCB Transcribe Date/Time: Jul 06 2023 1:06P Dictated by : DELFINO SAMANO MD This examination was interpreted and the report reviewed and electronically signed by: DELFINO SAMANO MD on Jul 06 2023 1:16PM [facility] DIVISION OF RADIOLOGY * * *Final Report* * * DATE OF EXAM: Jul 06 2023 12:57PM [id number] - XR TOE 3V AP/LAT/OBL LT / PROCEDURE REASON: multiple diagnoses * * * * Physician Interpretation * * * * TITLE: XR TOE 3V AP/LAT/OBL LT CLINICAL INDICATION: Swelling in the left great toe. TECHNIQUE: 3 view radiographic study of the left great toe COMPARISON: Radiograph dated June 24, 2023 FINDINGS: Soft tissue swelling surrounding the first interphalangeal joints. No soft tissue gas or radiopaque foreign body. Periarticular osteopenia in the region of the first interphalangeal joint with subchondral cystic change. Suggestion of a subtle nondisplaced fracture of the lateral and distal aspect of the first proximal phalanx. No periostitis. DIVISION OF RADIOLOGY Provider, [facility] - 07/06/2023 * * *Final Report* * * DATE OF EXAM: Jul 06 2023 12:57PM [id number] - XR TOE 3V AP/LAT/OBL LT / PROCEDURE REASON: multiple diagnoses * * * * Physician Interpretation * * * * TITLE: XR TOE 3V AP/LAT/OBL LT CLINICAL INDICATION: Swelling in the left great toe. TECHNIQUE: 3 view radiographic study of the left great toe COMPARISON: Radiograph dated June 24, 2023 FINDINGS: Soft tissue swelling surrounding the first interphalangeal joints. No soft tissue gas or radiopaque foreign body. Periarticular osteopenia in the region of the first interphalangeal joint with subchondral cystic change. Suggestion of a subtle nondisplaced fracture of the lateral and distal aspect of the first proximal phalanx. No periostitis. IMPRESSION IMPRESSION: 1. Soft tissue swelling surrounding the great toe. 2. Periarticular osteopenia in the region of the first interphalangeal joint. Early osteomyelitis is not excluded. Consider further evaluation with MRI as clinically indicated. 3. Suggestion of a subtle nondisplaced fracture of the lateral and distal aspect of the first proximal phalanx. Senior Controls Technician: KRISTINA Transcribe Date/Time: Jul 06 2023 1:06P Dictated by : DELFINO SAMANO MD This examination was interpreted and the report reviewed and electronically signed by: DELFINO SAMANO MD on Jul 06 2023 1:16PM EST [facility] Radiology Study observation (narrative) [facility] XR Toes - left 3 ViewsOrdere d By: [facility] Provider on 07-06-2023 [facility] CD19 ABSOLUTE COUNTon 2023 CD3-CD19+ cells (Bld) [#/Vol] 0 Low [facility] CD3-CD19+ cells/100 cells (Bld) 0 % Low 5 - 22 % [facility] Interpretation and review of laboratory results Abnormal [facility] Lymphocytes/100 WBC FC (Bld) [facility] Clinical interpretat ion of lymphocyte subsets must be made with caution. Relative and absolute values may be profoundly affected by immunosuppressive or cytotoxic therapy, and be abnormal in a wide variety of infectious, inflammatory, autoimmune and neoplastic disorders. The following number of cluster designated antibodies were used for the definition of the above reported populations: CD19 (CD45 used for gating.) This test was developed and its performance characteristics determined by [facility]'s [facility] Medicine [place] ([facility]). It has not been cleared or approved by the FDA. [facility] is regulated under CLIA as qualified to perform high-complexity testing. This test is used for clinical purposes. It should not be regarded as investigational or for research). [facility] CBC W Auto Differential pane l (Bld)on 07-02-2023 Basophils (Bld) [#/Vol] 0.04 10*3/uL [facility] Basophils/100 WBC (Bld) 0.6 % [facility] Differential cell count method Nom (Bld) Auto [facility] Eosinophils (Bld) [#/Vol] 0.13 10*3/uL [facility] Eosinophils/100 WBC (Bld) 2.0 % [facility] Erythrocyte distribution width (RBC) [Ratio] 12.8 % 11.5 - 15.0 % [facility] Hematocrit (Bld) [Volume fraction] 40.6 % 39.0 - 51.0 % [facility] Hemoglobin (Bld) [Mass/Vol] 13.4 g/dL 13.0 - 17.0 g/dL [facility] Immature granulocytes (Bld) [#/Vol] 0.03 10*3/uL [facility] Immature granulocytes/100 WBC (Bld) 0.5 % [facility] Interpretation and review of laboratory results Abnormal [facility] Lymphocytes (Bld) [#/Vol] 0.95 10*3/uL Low [facility] Lymphocytes/100 WBC (Bld) 14.6 % [facility] MCH (RBC) [Entitic mass] 32.2 pg 26.0 - 34.0 pg [facility] MCHC (RBC) [Mass/Vol] 33.0 g/dL 30.5 - 36.0 g/dL [facility] MCV (RBC) [Entitic vol] 97.6 fL 80.0 - 100.0 fL [facility] Monocytes (Bld) [#/Vol] 0.59 10*3/uL [facility] Monocytes/100 WBC (Bld) 9.1 % [facility] Neutrophils (Bld) [#/Vol] 4.76 10*3/uL [facility] Neutrophils/100 WBC (Bld) 73.2 % [facility] Nucleated RBC (Bld) [#/Vol] [facility] Nucleated RBC/100 WBC (Bld) [Ratio] 0.0 % /100 WBC [facility] Platelet mean volume (Bld) [Entitic vol] 10.8 fL 9.0 - 12.7 fL [facility] Platelets (Bld) [#/Vol] 216 10*3/uL [facility] RBC (Bld) [#/Vol] 4.16 10*6/uL Low 4.20 - 6.0 0 m/uL [facility] WBC (Bld) [#/Vol] 6.50 10*3/uL [facility] ESR Westergren method (Bld) [Velocity]on 07-02-2023 ESR (Bld) [Velocity] 26 mm/h High [facility] Interpretation and review of laboratory results Abnormal [facility] CBC W Auto Differential pane l (Bld)on 06-24-2023 Basophils (Bld) [#/Vol] [facility] Basophils/100 WBC (Bld) 0.3 % [facility] Differential cell count method Nom (Bld) Auto [facility] Eosinophils (Bld) [#/Vol] 0.21 10*3/uL [facility] Eosinophils/100 WBC (Bld) 2.7 % [facility] Erythrocyte distribution width (RBC) [Ratio] 12.9 % 11.5 - 15.0 % [facility] Hematocrit (Bld) [Volume fraction] 43.2 % 39.0 - 51.0 % [facility] Hemoglobin (Bld) [Mass/Vol] 14.4 g/dL 13.0 - 17.0 g/dL [facility] Immature granulocytes (Bld) [#/Vol] 0.03 10*3/uL [facility] Immature granulocytes/100 WBC (Bld) 0.4 % [facility] Interpretation and review of laboratory results Abnormal [facility] Lymphocytes (Bld) [#/Vol] 1.13 10*3/uL [facility] Lymphocytes/100 WBC (Bld) 14.4 % [facility] MCH (RBC) [Entitic mass] 32.4 pg 26.0 - 34.0 pg [facility] MCHC (RBC) [Mass/Vol] 33.3 g/dL 30.5 - 36.0 g/dL [facility] MCV (RBC) [Entitic vol] 97.1 fL 80.0 - 100.0 fL [facility] Monocytes (Bld) [#/Vol] 0.94 10*3/uL High [facility] Monocytes/100 WBC (Bld) 12.0 % [facility] Neutrophils (Bld) [#/Vol] 5.52 10*3/uL [facility] Neutrophils/100 WBC (Bld) 70.2 % [facility] Nucleated RBC (Bld) [#/Vol] [facility] Nucleated RBC/100 WBC (Bld) [Ratio] 0.0 % /100 WBC [facility] Platelet mean volume (Bld) [Entitic vol] 10.8 fL 9.0 - 12.7 fL [facility] Platelets (Bld) [#/Vol] 183 10*3/uL [facility] RBC (Bld) [#/Vol] 4.45 10*6/uL 4.20 - 6.0 0 m/uL [facility] WBC (Bld) [#/Vol] 7.85 10*3/uL [facility] ESR Westergren method (Bld) [Velocity]on 06-24-2023 ESR (Bld) [Velocity] 41 mm/h High [facility] Interpretation and review of laboratory results Abnormal [facility] URIC ACIDon 06-24-2023 Urate [Mass/Vol] 5.5 mg/dL 4.0 - 8.1 mg/dL [facility] Urate [Mass/Vol]on Interpretation and review of laboratory results Normal [facility] XR Toes - left 3 Viewson IMPRESSION: No acute osseous abnormality Senior Controls Technician: KRISTINA Transcribe Date/Time: Jun 24 2023 12:02P Dictated by : KARLENE SAENZ MD This examination was interpreted and the report reviewed and electronically signed by: KARLENE SAENZ MD on Jun 24 2023 12:08PM [facility] DIVISION OF RADIOLOGY * * *Final Report* * * DATE OF EXAM: Jun 24 2023 11:53AM [id number] - XR TOE 3V AP/LAT/OBL LT / PROCEDURE REASON: Pain of left great toe * * * * Physician Interpretation * * * * EXAMINATION: XR TOE 3V AP/LAT/OBL LT CLINICAL HISTORY: Pain and swelling left first toe Technique: XR TOE 3V AP/LAT/OBL LT -- LEFT with 3 views on 3 images Comparison: X-ray left foot 02/19/2021 RESULT: No acute fracture or dislocation. No destructive osseous lesion. Mild narrowing of the left first metatarsophalangeal joint and interphalangeal joint of the great toe. Soft tissue swelling of the left first toe. No radiodense foreign body. DIVISION OF RADIOLOGY [facility], [facility]/24/[facility]23 * * *Final Report* * * DATE OF EXAM: Jun 24 2023 11:53AM [id number] - XR TOE 3V AP/LAT/OBL LT / PROCEDURE REASON: Pain of left great toe * * * * Physician Interpretation * * * * EXAMINATION: XR TOE 3V AP/LAT/OBL LT CLINICAL HISTORY: Pain and swelling left first toe Technique: XR TOE 3V AP/LAT/OBL LT -- LEFT with 3 views on 3 images Comparison: X-ray left foot 02/19/2021 RESULT: No acute fracture or dislocation. No destructive osseous lesion. Mild narrowing of the left first metatarsophalangeal joint and interphalangeal joint of the great toe. Soft tissue swelling of the left first toe. No radiodense foreign body. IMPRESSION IMPRESSION: No acute osseous abnormality Senior Controls Technician: PSCB Transcribe Date/Time: Jun 24 2023 12:02P Dictated by : KARLENE SAENZ MD This examination was interpreted and the report reviewed and electronically signed by: KARLENE SAENZ MD on Jun 24 2023 12:08PM EST [facility] Radiology Study observation (narrative) [facility] XR Toes - left 3 ViewsOrdere d By: Ccf Provider on 06-24-2023 [facility] Emergency Department Summary on 06-20-2023 Emergency Department Summary [facility] Medical Records Department [address] [place] [address] Emergency Department Summary 06/20/23 MR#: [id number] Acct: [id number] Name: ADARSH SORENSEN Rep #: [id number] : 1940 82 From: Audi Camp DO PCP: Dr. Jared Robertson MD Status:DEP ER Location: ED HPI History of Present Illness HPI Narrative: Patient presents with redness and swelling to his left great toe that has been getting worse over the past 2 to 3 days. Patient states that it has gradually gotten worse. Patient denies any fevers or chills. Patient denies any trauma or injury. Patient describes his pain as sharp. Patient states it is worse with ambulation and better with rest. Patient admits to some tingling in his left great toe. Patient denies any weakness. Chief Complaint: Lower Extremity Injury Informant: patient Onset/Context/Timing Onset: Days (2-3) Context: Gradual Onset Timing: Continuous Quality of Pain: Sharp Location: Left great toe Worsened by: Ambulation Relieved by: Rest Associated Symptoms Associated Symptoms: Positive for Parasthesia; Negative for Weakness or Loss of Funtion PFSH [facility] Medical History AAA (abdominal aortic aneurysm) without rupture Anemia Arthritis Back pain Basal cell carcinoma (BCC) in situ of skin Blood disorder Cancer Cardiology follow-up encounter Difficulty swallowing Fatigue Former smoker Gout High cholesterol History of echocardiogram History of hiatal hernia History of IBS History of stress test Hyperlipidemia Intractable low back pain Leg cramps Lumbosacral strain Lymphoma Neuropathy associated with anti-MAG antibody Palpitations Pure hypercholesterolemia Shortness of breath Sinus bradycardia Wears glasses Home Medications omeprazole 20 mg capsule,delayed release 40 mg PO DAILY PRN ACID REFLUX 01/15/22 [History Last Taken 08/30/22] rosuvastatin 20 mg tablet 20 mg PO QHS CHOLESTEROL 08/31/22 [History Last Taken 08/29/22] doxycycline hyclate 100 mg capsule 100 mg PO BID #60 caps 06/02/23 [Rx Last Taken Unknown] cephalexin 500 mg capsule 500 mg PO Q6 #40 CAPSULES 06/20/23 [Rx Last Taken Unknown] Allergy/AdvReac Type Severity Reaction Status Date / Time No Known Allergies Allergy Verified 06/20/23 16:44 Family History Father Colon cancer Mother Alzheimers disease Brother Multiple sclerosis Surgical History aorto bi-common iliac stent graft ( 11/2014) History of AAA (abdominal aortic aneurysm) repair History of cardiac catheterization History of cholecystectomy History of colonoscopy ( 11/2021) History of esophagogastroduodenoscopy (EGD) ( 11/2021) Status post laparoscopic Mika fundoplication Social History Smoking Status: Former smoker how long ago did patient quit smokin alcohol intake: current alcohol intake frequency: a few times a week Alcohol type: wine and hard liquor substance use type: does not use caffeine: Yes Type: coffee what type of physical activity do you participate in: none seatbelt use: always do you feel safe at home: Yes ROS ROS ED Constitutional Constitutional ED: Denies chills or fever(s) Eyes Eyes: Denies blurry vision or change in vision ENT ENT ED: Denies rhinorrhea or sore throat Cardiovascular Cardiovascular: Denies chest pain or palpitations Respiratory/Chest Respiratory/Chest: Denies cough or dyspnea Gastrointestinal Gastrointestinal: Denies nausea or vomiting Genitourinary Genitourinary ED: Denies dysuria or hematuria Musculoskeletal Musculoskeletal: Denies back pain or neck pain Integumentary Denies abscess or rash Neurologic Neurologic: Denies headache(s) or weakness Allergic/Immunologic Allergic/Immunologic ED: Denies mouth swelling or urticaria EXAM Physical Exam Const Vital Signs: 06/20/23 16:42 Temperature 97 F L Temperature Source Temporal Pulse Rate 61 Respiratory Rate 18 Blood Pressure 131/72 H Blood Pressure Mean 91 Pulse Ox 98 Oxygen Delivery Method Room Air Positive well nourished and well developed General Appearance ED: well developed and NAD HEENT Reports moist mucous membranes Neck full ROM and supple Extremity Extremity Narrative: There is tenderness and mild erythema over the dorsal aspect of the distal phalanx of the left great toe. There is no fluctuance. There is no evidence of any abscess. There is no deformity noted. Range of motion was slightly limited in all motions of the IP joint of the left great toe secondary to pain. Sensation was intact to light touch in all digits. Capillary refills less than 2 sec (more content not included)... Normal [facility] Colonoscopy Reporton 024 Colonoscopy Report [facility] Medical Records Department [address] [place] [address] Colonoscopy Report MR#: [id number] Acct: [id number] Name: ADARSH SORENSEN Rep #: [id number] : 1940 82 From: Danny Mathew DO PCP: Dr. Jared Robertson MD Status:[facility] Patient Name: Adarsh Sorensen Procedure Date: 06/17/2023 7:55 AM Date of : 1940 Age: 82 Procedure: Colonoscopy Indications: Screening for colorectal malignant neoplasm Providers: Danny Mathew DO Referring MD: Jraed Robertson MD Medicines: Monitored Anesthesia Care Patient Profile: This is an 82 year old male. Refer to note in patient chart for documentation of history and physical. Patient has symptoms of chronic heartburn. Last Colonoscopy: date unknown. Unable to locate last colonoscopy report. Complications: No immediate complications. Procedure: Pre-Anesthesia Assessment: - Prior to the procedure, a History and Physical was performed, and patient medications and allergies were reviewed. The risks and benefits of the procedure and the sedation options and risks were discussed with the patient. All questions were answered and informed consent was obtained. Patient identification and proposed procedure were verified by the physician. Mental Status Examination: normal. Respiratory Examination: clear to auscultation. CV Examination: normal. Prophylactic Antibiotics: The patient does not require prophylactic antibiotics. Prior Anticoagulants: The patient has taken no anticoagulant or antiplatelet agents. ASA Grade Assessment: III - A patient with severe systemic disease. After reviewing the risks and benefits, the patient was deemed in satisfactory condition to undergo the procedure. The anesthesia plan was to use monitored anesthesia care (MAC). Immediately prior to administration of medications, the patient was re-assessed for adequacy to receive sedatives. The heart rate, respiratory rate, oxygen saturations, blood pressure, adequacy of pulmonary ventilation, and response to care were monitored throughout the procedure. The physical status of the patient was re-assessed after the procedure. After I obtained informed consent, the scope was passed under direct vision. Throughout the procedure, the patient's blood pressure, pulse, and oxygen saturations were monitored continuously. The adult colonoscope was introduced through the anus and advanced to the cecum, identified by appendiceal orifice and ileocecal valve. The colonoscopy was performed without difficulty. The patient tolerated the procedure well. The quality of the bowel preparation was adequate. The ileocecal valve, appendiceal orifice, and rectum were photographed. Scope In: 7:57:26 AM Scope Withdrawal Time 0 hours 18 minutes 30 seconds Scope Out: 8:19:19 AM Total Procedure Duration Time 0 hours 21 minutes 53 seconds Findings: An anal fissure was found on perianal exam. Non-bleeding internal hemorrhoids were found during retroflexion. The hemorrhoids were moderate and Grade II (internal hemorrhoids that prolapse but reduce spontaneously). The endoscope was withdrawn. A hemorrhoid was isolated with anoscopy. The ShortShot ligator was positioned over the hemorrhoid at the left lateral position. Suction was applied and one rubber band was placed over the hemorrhoid. This was checked to make certain that the muscularis was free of the band. Post-banding digital rectal exam showed band in good position. There were no complications. A 5 mm anal fissure was found in the anal canal. The internal anal sphincter was successfully injected with 100 units botulinum toxin. A benign-appearing, intrinsic moderate stenosis was found at the anus and was traversed. A guidewire was placed and the scope was withdrawn. Dilation was performed with a Savary dilator with no resistance at 51 Fr. The dilation site was examined and showed moderate improvement in luminal narrowing. An area of mildly congested mucosa was found in the cecum. Biopsies were taken with a cold forceps for histology. Verification of patient identification for the specimen was done. Estimated blood loss was minimal. The exam was otherwise without abnormality on direct and retroflexion views. Two small-mouthed diverticula were found in the recto-sigmoid colon. Impression: - Anal fissure found on perianal exam. - Non-bleeding internal hemorrhoids. Banded. - Anal fissure. Injected with botulinum toxin. - Stricture at the anus. Dilated. - Congested mucosa in the cecum. Biopsied. - The examination was otherwise normal on direct and retroflexion views. - Diverticulosis in the recto-sigmoid colon. Recommendation: - Discharge patient to home. - Resume previous diet. - Continue present medications. - Await pathology results. - Repeat colonoscopy. Procedure Code(s): -- (more content not included)... Normal [facility] EGD Reporton 06-17-2023 EGD Report [facility] Medical Records Department [address] [place] [address] EGD Report MR#: [id number] Acct: [id number] Name: ADARSH SORENSEN Rep #: [id number] : 1940 82 From: Danny Mathew DO PCP: Dr. Jared Robertson MD Status:[facility] Patient Name: Adarsh Sorensen Procedure Date: 06/17/2023 7:16 AM Date of : 1940 Age: 82 Procedure: Upper GI endoscopy Indications: Heartburn Providers: Danny Mathew DO Referring MD: Jared Robertson MD Medicines: Monitored Anesthesia Care Patient Profile: This is an 82 year old male. Refer to note in patient chart for documentation of history and physical. Patient has symptoms of chronic heartburn. Complications: No immediate complications. Procedure: Pre-Anesthesia Assessment: - Prior to the procedure, a History and Physical was performed, and patient medications and allergies were reviewed. The risks and benefits of the procedure and the sedation options and risks were discussed with the patient. All questions were answered and informed consent was obtained. Patient identification and proposed procedure were verified by the physician. Mental Status Examination: normal. Respiratory Examination: clear to auscultation. CV Examination: normal. Prophylactic Antibiotics: The patient does not require prophylactic antibiotics. Prior Anticoagulants: The patient has taken no anticoagulant or antiplatelet agents. ASA Grade Assessment: III - A patient with severe systemic disease. After reviewing the risks and benefits, the patient was deemed in satisfactory condition to undergo the procedure. The anesthesia plan was to use monitored anesthesia care (MAC). Immediately prior to administration of medications, the patient was re-assessed for adequacy to receive sedatives. The heart rate, respiratory rate, oxygen saturations, blood pressure, adequacy of pulmonary ventilation, and response to care were monitored throughout the procedure. The physical status of the patient was re-assessed after the procedure. After obtaining informed consent, the endoscope was passed under direct vision. Throughout the procedure, the patient's blood pressure, pulse, and oxygen saturations were monitored continuously. The Colonoscope was introduced through the mouth, and advanced to the second part of duodenum. The upper GI endoscopy was accomplished without difficulty. The patient tolerated the procedure well. Scope In: 7:52:53 AM Scope Out: 7:55:17 AM Total Procedure Duration Time 0 hours 2 minutes 24 seconds Findings: The Z-line was irregular and was found 40 cm from the incisors. Biopsies were taken with a cold forceps for histology. Verification of patient identification for the specimen was done. Estimated blood loss was minimal. A small hiatal hernia was present. No gross lesions were noted in the entire examined stomach. No gross lesions were noted in the duodenal bulb. Impression: - Z-line irregular, 40 cm from the incisors. Biopsied. - Small hiatal hernia. - No gross lesions in the entire stomach. - No gross lesions in the duodenal bulb. Recommendation: - Discharge patient to home. - Resume previous diet. - Continue present medications. - Await pathology results. Procedure Code(s): --- Professional --- 16271, Esophagogastroduodenoscopy, flexible, transoral; with biopsy, single or multiple CPT copyright 2021 [employer]. All rights reserved. The codes documented in this report are preliminary and upon fitter / welder review may be revised to meet current compliance requirements. Danny Mathew DO 06/17/2023 8:25:53 AM This report has been signed electronically. Number of Addenda: 0 Note Initiated On: 06/17/2023 7:16 AM 06/17/23825 Date Danny Mathew DO Cosigner Signature: Date (if indicated) CC: Dr. Jared Robertson MD; Danny Mathew DO Date Dictated: 06/17/23715 Date Transcribed: Senior Controls Technician: MICHEAL Signed Normal [facility] Special Stain Group IIon Special Stain Group II Patient Age/Sex Location Account Attending Physician ADARSH SORENSEN 82/M EN [id number] Danny Mathew DO Specimen: [id number] Received: 06/17/23 Status: KENDRICK Hernandez Num: [id number] Spec Type: EGD BIOPSY Subm Dr: Danny Mathew DO HEADER OPERATION: Colonoscopy with Botox injection, biopsy, EGD PRE-OP DIAGNOSIS: Constipation, diarrhea, flatulence, anal stenosis TISSUE SUBMITTED: A- Distal esophagus biopsy, B- Cecal polyp -------- MICROSCOPIC DIAGNOSIS A. 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 No evidence of goblet cell metaplasia. See comment. B. Cecal polyp, biopsy: Polypoid fragments of benign colonic mucosa. See comment. AM/mr 06/18/23 COMMENT A. Alcian blue/PAS stain with matched control supports the above diagnosis. B. Neither hyperplastic nor adenomatous change is identified. Clinical correlation is suggested. MICROSCOPIC DESCRIPTION Slides are reviewed. GROSS DESCRIPTION A. Received in fixative is one container labeled with the patient's name and designated Distal esophagus biopsy. The specimen consists of two irregular fragments of light valerio soft tissue that in aggregate measure 0.8 x 0.5 x 0.1 cm. The specimen is totally submitted in one cassette. B. Received in fixative is one container labeled with the patient's name and designated Cecal cap. The specimen consists of one irregular fragment of light valerio soft tissue that measures 0.5 x 0.3 x 0.1 cm. The specimen is totally submitted in one cassette. AM/mr 06/17/2023 TC:3 CPT:58371p9,12843 -------- Patient Age/Sex Location Account Attending Physician -------- ADARSH SORENSEN 82/M EN [id number] Danny Mathew DO -------- Signed (signature on file) Dr. Willie Schroeder DO 06/18/23 1258 -------- Normal [facility] Comment on above: Performed By: #### P SSII ####[facility] [id number] [place], [address] Gastroenterology Visit Repor ton 06-02-2023 Gastroenterology Visit Report [facility] Gastroenterology [address] [place] [address] OFFICE VISIT Date of Service: 06/02/23 MR#: [id number] Acct: [id number] Name: ADARSH SORENSEN Rep #: [id number] : 1940 Provider: Danny Mathew DO Age/Sex: 82/M Location: [facility] Status: Signed with Addenda ADDENDUM by Danny Mathew DO on 06/03/23 at 1530 HPI Details: ADARSH SORENSEN, is a 82 M who presents to the office today for Assessment Plan (1) Anal stenosis: PLAN: This is a correction. 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 06/03/23 1530 Date Danny Mathew DO cc: * Signed Intake Vital Signs 08/31/22 15:27 Height 6 ft Intake Visit Reasons: 6 MO FU Chief Complaint: lightheaded Allergies No Known Allergies Allergy (Verified 03/01/23 13:36) [facility] Medical History AAA (abdominal aortic aneurysm) without rupture Anemia Arthritis Back pain Basal cell carcinoma (BCC) in situ of skin Blood disorder Cancer Cardiology follow-up encounter Difficulty swallowing Fatigue Former smoker Gout High cholesterol History of echocardiogram History of hiatal hernia History of IBS History of stress test Hyperlipidemia Intractable low back pain Leg cramps Lumbosacral strain Lymphoma Palpitations Pure hypercholesterolemia Shortness of breath Sinus bradycardia Wears glasses Surgical History aorto bi-common iliac stent graft ( 11/2014) History of AAA (abdominal aortic aneurysm) repair History of cardiac catheterization History of cholecystectomy History of colonoscopy ( 11/2021) History of esophagogastroduodenoscopy (EGD) ( 11/2021) Status post laparoscopic Mika fundoplication Family History Father Colon cancer Mother Alzheimers disease Brother Multiple sclerosis Social History Smoking Status: Unknown if ever smoked how long ago did patient quit smokin alcohol intake: current alcohol intake frequency: a few times a week Alcohol type: wine and hard liquor substance use type: does not use caffeine: Yes Type: coffee what type of physical activity do you participate in: none seatbelt use: always do you feel safe at home: Yes HPI HPI Chief Complaint: lightheaded Details: ADARSH SORENSEN, is a 82 M who presents to the office today for follow up. *BGI established 9. with daily reflux starting just prior to breakfast with noted food triggers. Left sided abdominal pain/discomfort with gaseous noises. Constipation (no BM for 5 days) alternating with loose stools typically in morning, exacerbated by changes of environment. Reports colonic stricture; previously established with [facility] who cut the area approximately 5 years prior. EGD and colonoscopy 11.25.21 EGD moderate intrinsic stenosis, Savary 57F; irregular Zline; large hiatal hernia; gastritis. No path changes. H.Pylori neg Colonoscopy poor prep; anal canal stenosis; entire colon redundant; congested mucosa. No path changes OV 12.25.21 Noted improvement of swallowing. Referred to [facility] for fundoplication evaluation. Repeat colonoscopy [facility] established 01.15.22 recommending additional testing prior to scheduling/recommending fundoplication surgery. After further testing it was determined he is a good candidate for fundoplication surgery. Esophageal manometry 01.15.22 WNL Upper GI Swallow 01.19.22 elevation of right hemidiaphragm; abdominal aorta stent grafting visualized. Laparoscopic toupet fundoplication with intraop EGD 03.23.22 without complication GI outpatient workup: Colonoscopy 06.05.22 anal stricture/intrinsic severe stenosis, Savary 51F. No specimens OV 5.2. Start Metamucil for constipation. Doxycycline for ongoing flatulence. OV 10.. loose stools alternating with several days of no BM and nausea with dry heaving have been an ongoing for a while. Did not start Metamucil as historically it caused constipation. Does not recall taking doxycycline, if he did it was not memorable. OV 06.01. pt reports that he is experiencing similar symptoms as he had at his previous visit. Pt reports that he is having constant left sided pain that feels like an ache. States that eating sometimes worsen the pain. Pt states that he has a bowel movement every 1 - 2 days, and that is has been diarrhea for a few weeks now. Pt states that he has some trouble swallowing rough or dry food and feels that his esophagus has narrowed since his hiatal hernia surgery. ROS Const Constitutional: Positive for fatigue ENT ENT: No diffi (more content not included)... Normal [facility] CBC W Auto Differential pane l (Bld)on 04-03-2023 Basophils (Bld) [#/Vol] 0.03 10*3/uL <0.11 k/uL [facility] Basophils/100 WBC (Bld) 0.5 % [facility] Differential cell count method Nom (Bld) Auto [facility] Eosinophils (Bld) [#/Vol] 0.20 10*3/uL <0.46 k/uL [facility] Eosinophils/100 WBC (Bld) 3.4 % [facility] Erythrocyte distribution width (RBC) [Ratio] 12.8 % 11.5 - 15.0 % [facility] Hematocrit (Bld) [Volume fraction] 40.7 % 39.0 - 51.0 % [facility] Hemoglobin (Bld) [Mass/Vol] 13.6 g/dL 13.0 - 17.0 g/dL [facility] Immature granulocytes (Bld) [#/Vol] <0.10 k/uL [facility] Immature granulocytes/100 WBC (Bld) 0.2 % [facility] Lymphocytes (Bld) [#/Vol] 1.12 10*3/uL 1.00 - 4.00 k/uL [facility] Lymphocytes/100 WBC (Bld) 19.2 % [facility] MCH (RBC) [Entitic mass] 32.2 pg 26.0 - 34.0 pg [facility] MCHC (RBC) [Mass/Vol] 33.4 g/dL 30.5 - 36.0 g/dL [facility] MCV (RBC) [Entitic vol] 96.4 fL 80.0 - 100.0 fL [facility] Monocytes (Bld) [#/Vol] 0.45 10*3/uL <0.87 k/uL [facility] Monocytes/100 WBC (Bld) 7.7 % [facility] Neutrophils (Bld) [#/Vol] 4.02 10*3/uL 1.45 - 7.50 k/uL [facility] Neutrophils/100 WBC (Bld) 69.0 % [facility] Nucleated RBC (Bld) [#/Vol] <0.01 k/uL [facility] Nucleated RBC/100 WBC (Bld) [Ratio] 0.0 /100 WBC [facility] Platelet mean volume (Bld) [Entitic vol] 10.4 fL 9.0 - 12.7 fL [facility] Platelets (Bld) [#/Vol] 153 10*3/uL 150 - 400 k/uL [facility] RBC (Bld) [#/Vol] 4.22 10*6/uL 4.20 - 6.0 0 m/uL [facility] WBC (Bld) [#/Vol] 5.83 10*3/uL 3.70 - 11.00 k/uL [facility] Comprehensive metabolic 2000 panelon 04-03-2023 Albumin [Mass/Vol] 3.8 g/dL Low 3.9 - 4.9 g/dL [facility] ALP [Catalytic activity/Vol] 83 U/L 38 - 113 U/L [facility] ALT [Catalytic activity/Vol] 9 U/L Low 10 - 54 U/L [facility] Anion gap [Moles/Vol] 9 mmol/L 9 - 18 mmol/L [facility] AST [Catalytic activity/Vol] 15 U/L 14 - 40 U/L [facility] Bilirubin [Mass/Vol] 1.0 mg/dL 0.2 - 1 .3 mg/dL [facility] Calcium [Mass/Vol] 9.0 mg/dL 8.5 - 10. 2 mg/dL [facility] Chloride [Moles/Vol] 104 mmol/L 97 - 10 5 mmol/L [facility] CO2 [Moles/Vol] 28 mmol/L 22 - 30 mmol/L [facility] Creatinine [Mass/Vol] 1.21 mg/dL 0.73 - 1.22 mg/dL [facility] Estimated Glomerular Filtration Rate 60 mL/min/1.73m >=60 mL/min/1.73 m [facility] Glucose [Mass/Vol] 112 mg/dL High 74 - 99 mg/dL [facility] Potassium [Moles/Vol] 3.6 mmol/L Low 3.7 - 5.1 mmol/L [facility] Protein [Mass/Vol] 6.4 g/dL 6.3 - 8.0 g/dL [facility] Sodium [Moles/Vol] 141 mmol/L 136 - 144 mmol/L [facility] Urea nitrogen [Mass/Vol] 22 mg/dL 9 - 24 mg/dL [facility] HbA1c (Bld)on 04-03-2023 Average glucose Estimated from glycated hemoglobin (Bld) [Mass/Vol] 94 mg/dL [facility] HbA1c (Bld) [Mass fraction] 4.9 % 4.3 - 5.6 % [facility] LIPID PANEL, NONFASTINGon Cholesterol [Mass/Vol] 184 mg/dL <200 mg/dL [facility] HDL Cholesterol, Nonfasting 59 mg/dL >39 mg/dL [facility] LDL Cholesterol, Nonfasting 110 mg/dL High <100 mg/dL [facility] LDL/HDL Ratio, Nonfasting 1.86 mg/dL <2.54 mg/dL [facility] Non HDL Cholesterol, Nonfasting 125 mg/dL <130 mg/dL [facility] Total Chol/HDL Ratio, Nonfasting 3.12 mg/dL <5.10 mg/dL [facility] Triglycerides, Nonfasting 73 mg/dL <150 mg/dL [facility] VLDL Cholesterol, Nonfasting 15 mg/dL <30 mg/dL [facility] MAGNESIUM BLDon 04-03-2023 Magnesium [Mass/Vol] 1.9 mg/dL 1.7 - 2 .3 mg/dL [facility] Urinalysis complete panel (U )on 04-03-2023 Bacteria LM.HPF (Urine sed) [#/Area] Negative Negative /HPF [facility] Bilirubin Ql (U) 1+ Abnormal Negative [facility] Clarity (Unsp spec) Clear Clear [facility] Color (U) Dark Yellow Abnormal Yellow [facility] Epithelial cells LM.HPF (Urine sed) [#/Area] None Seen [facility] Glucose Test strip (U) [Mass/Vol] Negative Negative [facility] Hemoglobin Ql (U) Negative Negative [facility] Hyaline casts (Urine sed) [#/Area] 0 /[LPF] 0 /LPF [facility] Ketones Ql (U) Trace Abnormal Negative [facility] Leukocyte esterase Test strip Ql (U) Negative Negative [facility] Nitrite Ql (U) Negative Negative [facility] pH (U) 5.5 [pH] <8.5 [facility] Protein (U) [Mass/Vol] Negative Negative [facility] RBC LM.HPF (Urine sed) [#/Area] 3-5 /HPF Abnormal 0-2 /HPF [facility] Specific gravity (U) [Rel density] 1.027 1.005 - 1.030 [facility] Urobilinogen Ql (U) 0.2 EU/dL 0.2-1.0 EU/dL [facility] WBC LM.HPF (Urine sed) [#/Area] 0-5 /HPF 0-5 /HPF [facility] VITAMIN B12 BLOODon 04-03-19 24 Cobalamin (Vitamin B12) [Mass/Vol] 399 pg/mL 232 - 1,245 pg/mL [facility] EMG(NEURO/NI)on 03-19-2023 [facility] CBC AND ELECTRONIC DIFFon Basophils (Bld) [#/Vol] K/uL 0.00 - 0.09 K/uL [facility] Basophils/100 WBC (Bld) 0.6 % [facility] Differential cell count method Nom (Bld) Electronic [facility] Eosinophils (Bld) [#/Vol] 0.20 10*3/uL 0.00 - 0.48 K/uL [facility] Eosinophils/100 WBC (Bld) 4.0 % [facility] Erythrocyte distribution width (RBC) [Ratio] 12.7 % 10.9 - 14.3 % [facility] Hematocrit (Bld) [Volume fraction] 37.7 % Low 39.6 - 48.8 % [facility] Hemoglobin (Bld) [Mass/Vol] 13.0 g/dL Low 13.4 - 16.8 g/dL [facility] Immature granulocytes (Bld) [#/Vol] K/uL NINF - 0.07 K/uL [facility] Immature granulocytes/100 WBC (Bld) 0.2 % [facility] Interpretation and review of laboratory results Abnormal [facility] Lymphocytes (Bld) [#/Vol] 1.13 10*3/uL 0.83 - 3.57 K/uL [facility] Lymphocytes/100 WBC (Bld) 22.8 % [facility] MCH (RBC) [Entitic mass] 32.4 pg 26.1 - 33.3 pg [facility] MCHC (RBC) [Mass/Vol] 34.5 g/dL 31.9 - 36.5 g/dL [facility] MCV (RBC) [Entitic vol] 94.0 fL 79.0 - 94.5 fL [facility] Monocytes (Bld) [#/Vol] 0.51 10*3/uL 0.24 - 0.93 K/uL [facility] Monocytes/100 WBC (Bld) 10.3 % [facility] Neutrophils (Bld) [#/Vol] 3.07 10*3/uL 1.57 - 6.19 K/uL [facility] Nucleated RBC/100 WBC (Bld) [Ratio] 0.0 % [facility] Platelet mean volume (Bld) [Entitic vol] 9.8 fL 8.7 - 12.3 fL [facility] Platelets (Bld) [#/Vol] 144 10*3/uL Low 146 - 337 K/uL [facility] RBC (Bld) [#/Vol] 4.01 10*6/uL Low [facility] Segmented neutrophils/100 WBC (Bld) 62.1 % [facility] WBC (Bld) [#/Vol] 4.95 10*3/uL 3.73 - 10.10 K/uL [facility] COMPREHENSIVE METABOLIC PANE Fuad 01-21-2023 Albumin [Mass/Vol] 3.9 g/dL 3.5 - 5.0 g/dL [facility] ALP [Catalytic activity/Vol] 65 U/L 32 - 126 U/L [facility] ALT [Catalytic activity/Vol] 13 U/L 10 - 52 U/L [facility] Anion gap [Moles/Vol] 9 mmol/L 7 - 17 mmol/L [facility] AST [Catalytic activity/Vol] 17 U/L 10 - 39 U/L [facility] Bilirubin [Mass/Vol] 1.0 mg/dL NINF - 1.5 mg/dL [facility] Calcium [Mass/Vol] 9.1 mg/dL 8.6 - 10. 5 mg/dL [facility] Chloride [Moles/Vol] 105 mmol/L 98 - 10 8 mmol/L [facility] CO2 [Moles/Vol] 27 mmol/L 21 - 31 mmol/L [facility] Creatinine [Mass/Vol] 1.10 mg/dL 0.70 - 1.30 mg/dL [facility] eGFR, CKD-EPI, Male 67 - PINF [facility] Comment on above: Reported eGFR is bas ed on the CKD-EPI 2020 equation using creatinine, age, and sex. Glucose [Mass/Vol] 89 mg/dL 70 - 99 mg/dL [facility] Osmolality Calc [Osmolality] 290 [facility] Potassium [Moles/Vol] 4.1 mmol/L 3.5 - 5.0 mmol/L [facility] Protein [Mass/Vol] 6.5 g/dL 6.4 - 8.3 g/dL [facility] Sodium [Moles/Vol] 137 mmol/L 135 - 145 mmol/L [facility] Urea nitrogen [Mass/Vol] 23 mg/dL 7 - 25 mg/dL [facility] Urea nitrogen/Creatinine [Mass ratio] 21 mg/mg [facility] FERRITINon 01-21-2023 Ferritin [Mass/Vol] 183.3 ng/mL 10.5 - 307.3 ng/mL [facility] Interpretation and review of laboratory results Normal [facility] FOLATE, SERUMon 01-21-2023 Folate [Mass/Vol] 9.45 ng/mL 5.38 - PIN F ng/mL [facility] IMMUNOGLOBULINS IGG IGA IGMO rdered By: Jn Zhang on 01-21-2023 IgA [Mass/Vol] 110 mg/dL 90 - 410 mg/dL [facility] IgG [Mass/Vol] 575 mg/dL Low 600 - 1560 mg/dL [facility] IgM [Mass/Vol] 828 mg/dL High 30 - 360 mg/dL [facility] Interpretation and review of laboratory results Abnormal [facility] IRON/IRON BINDING/TRANSFERRI Non 01-21-2023 Iron [Mass/Vol] 93 ug/dL [facility] Iron binding capacity [Mass/Vol] 271 [facility] Iron saturation [Mass fraction] 34 % 20 - 55 % [facility] Transferrin [Mass/Vol] 217 mg/dL 200 - 400 mg/dL [facility] LACTATE DEHYDROGENASEon Interpretation and review of laboratory results Normal [facility] LDH Lactate to pyruvate reaction [Catalytic activity/Vol] 128 U/L 100 - 190 U/L [facility] No Panel Informationon 01-21 Interpretation and review of laboratory results Normal [facility] Interpretation and review of laboratory results Normal [facility] SPE SERUM TOTAL PROTEINon Interpretation and review of laboratory results Abnormal [facility] Protein [Mass/Vol] 6.3 g/dL Low 6.4 - 8.3 g/dL [facility] TSH W/FT4 REFLEXon TSH Qn 2.903 m[IU]/L [facility] VITAMIN B12on 01-21-2023 Cobalamin (Vitamin B12) [Mass/Vol] 421 pg/mL 211 - 911 pg/mL [facility] Comment on above: Testing of Methylmal onic Acid and Intrinsic Factor Blocking Antibody are recommended if clinical suspicion for pernicious anemia due to B12 deficiency is high for patients with intermediate B12 levels (211 to 400 pg/mL) to rule out spurious heterophile antibodies. CBC W Auto Differential pane l (Bld)on 10-27-2022 Basophils (Bld) [#/Vol] 0.04 10*3/uL <0.11 k/uL [facility] Basophils/100 WBC (Bld) 0.6 % [facility] Differential cell count method Nom (Bld) Auto [facility] Eosinophils (Bld) [#/Vol] 0.14 10*3/uL <0.46 k/uL [facility] Eosinophils/100 WBC (Bld) 2.0 % [facility] Erythrocyte distribution width (RBC) [Ratio] 12.6 % 11.5 - 15.0 % [facility] Hematocrit (Bld) [Volume fraction] 41.6 % 39.0 - 51.0 % [facility] Hemoglobin (Bld) [Mass/Vol] 13.8 g/dL 13.0 - 17.0 g/dL [facility] Immature granulocytes (Bld) [#/Vol] <0.10 k/uL [facility] Immature granulocytes/100 WBC (Bld) 0.3 % [facility] Lymphocytes (Bld) [#/Vol] 1.27 10*3/uL 1.00 - 4.00 k/uL [facility] Lymphocytes/100 WBC (Bld) 18.5 % [facility] MCH (RBC) [Entitic mass] 32.2 pg 26.0 - 34.0 pg [facility] MCHC (RBC) [Mass/Vol] 33.2 g/dL 30.5 - 36.0 g/dL [facility] MCV (RBC) [Entitic vol] 97.2 fL 80.0 - 100.0 fL [facility] Monocytes (Bld) [#/Vol] 0.63 10*3/uL <0.87 k/uL [facility] Monocytes/100 WBC (Bld) 9.2 % [facility] Neutrophils (Bld) [#/Vol] 4.76 10*3/uL 1.45 - 7.50 k/uL [facility] Neutrophils/100 WBC (Bld) 69.4 % [facility] Nucleated RBC (Bld) [#/Vol] <0.01 k/uL [facility] Nucle[facility] RBC/100 WBC (Bld) [Ratio] 0.0 /100 WBC [facility] Platelet mean volume (Bld) [Entitic vol] 10.3 fL 9.0 - 12.7 fL [facility] Platelets (Bld) [#/Vol] 154 10*3/uL 150 - 400 k/uL [facility] RBC (Bld) [#/Vol] 4.28 10*6/uL 4.20 - 6.0 0 m/uL [facility] WBC (Bld) [#/Vol] 6.86 10*3/uL 3.70 - 11.00 k/uL [facility] Basophil percentageOrdered B y: Audi Esqueda on 09-01-2022 Cholesterol [Mass/Vol] 133 mg/dL <200 [facility] Comment on above: <200 mg/dL Desirable 200-240 mg/dL Borderline >240 mg/dL High Risk Triglyceride [Mass/Vol] 61 mg/dL <199 [facility] Comment on above: The drugs N-Acetylcy steine and Metamizole may falsely depress this assay.Serum Triglycerides Reference Interval Normal <150 mg/dL Borderline high 150 - 199 mg/dL High 200 - 499 mg/dL Very High > or = 500 mg/dL Serum or plasma cholesterol in HDL measurement (mass/volume)Ordered By: Audi Esqueda on 09-01-2022 Cholesterol in HDL [Mass/Vol] 55 mg/dL >40 [facility] Comment on above: The drugs N-Acetylcy steine and Metamizole may falsely depress this assay. Reference Range HDL <40 mg/dL Low HDL Cholesterol HDL >or= 60 mg/dL High HDL Cholesterol Serum or plasma cholesterol in VLDL measurement (mass/volume)Ordered By: Audi Esqueda on 09-01-2022 Cholesterol in VLDL [Mass/Vol] 12 mg/dL 5-40 [facility] Serum or plasma low density lipoprotein (LDL) cholesterol measurement (mass/volume)Ordered By: Audi Esqueda on 09-01-2022 Cholesterol in LDL [Mass/Vol] 66 mg/dL 0-130 [facility] Absolute lymphocyte countOrd ered By: Malika Rojas on 08-31-2022 Lymphocytes Auto (Unsp spec) [#/Vol] 1.18 10*3/uL 0.83-4.51 [facility] Basophil percentageOrdered B y: Malika Rojas on 08-31-2022 Basophils/100 WBC (Bld) 0.5 % 0-1 [facility] Chloride [Moles/Vol] 104 mmol/L 98-107 [facility] Eosinophils/100 WBC (Bld) 3.2 % 0-5 [facility] Glucose [Mass/Vol] 102 mg/dL 74-106 [facility] Comment on above: Moderate Lipemia, Re sult may be falsely increased.Fasting Glucose result from 100 to 125 mg/dL suggests IMPAIRED HOMEOSTASIS per A.D.A. criteria. Neutrophils (Bld) [#/Vol] 3.7 10*3/uL 2.0-7.7 [facility] Neutrophils/100 WBC (Bld) 65.0 % 47-70 [facility] Potassium [Moles/Vol] 3.9 mmol/L 3.5-5.1 [facility] Sodium [Moles/Vol] 136 mmol/L 136-145 [facility] WBC (Bld) [#/Vol] 5.6 10*3/uL 4.4-11.0 [facility] Blood erythrocytes count (nu mber/volume)Ordered By: Malika Rojas on 08-31-2022 RBC (Bld) [#/Vol] 4.30 10*6/uL 4.6-6.2 [facility] Blood hemoglobin measurement (mass/volume)Ordered By: Malika Rojas on 08-31-2022 Hemoglobin (Bld) [Mass/Vol] 14.2 g/dL 13.0-16.5 [facility] Blood lymphocytes/100 leukoc ytesOrdered By: Malika Rojas on 08-31-2022 Lymphocytes/100 WBC (Bld) 21.0 % 19-41 [facility] Blood monocytes/100 leukocyt esOrdered By: Malika Rojas on 08-31-2022 Monocytes/100 WBC (Bld) 9.8 % 0-10 [facility] Blood platelet mean volumeOr dered By: Malika Rojas on 08-31-2022 Platelet mean volume (Bld) [Entitic vol] 10.1 fL 6.2-12.0 [facility] Determination of erythrocyte mean corpuscular volume (MCV)Ordered By: Malika Rojas on 08-31-2022 MCV (RBC) [Entitic vol] 96.5 fL 80-94 [facility] Hematocrit Auto (Bld) [Volum e fraction]Ordered By: Malika Rojas on 08-31-2022 Hematocrit (Bld) [Volume fraction] 41.5 % 40-54 [facility] INR in Blood by Coagulation assayOrdered By: Malika Rojas on 08-31-2022 INR Coag (Bld) [Relative time] 1.0 {INR} [facility] Laboratory - Chemistry and C hemistry - challengeOrdered By: Malika Rojas on 08-31-2022 CO2 [Moles/Vol] 29.0 mmol/L 21.0-32.0 [facility] Urea nitrogen/Creatinine [Mass ratio] 12.0 mg/mg 10-20 [facility] Laboratory - CoagulationOrde red By: Malika Rojas on 08-31-2022 aPTT Coag (Bld) [Time] 29.2 s 24.1-36.2 [facility] PT Coag (PPP) [Time] 12.8 s 11.7-14.9 [facility] Laboratory - Hematology and Cell countsOrdered By: Malika Rojas on 08-31-2022 Erythrocyte distribution width (RBC) [Entitic vol] 44.3 fL 35.1-43.9 [facility] Erythrocyte distribution width (RBC) [Ratio] 12.5 % 11.6-14.6 [facility] Immature granulocytes/100 WBC (Bld) 0.500 % 0.0-0.9 [facility] Comment on above: IG% - Immature Granu locytes (promyelocytes, myelocytes and metamyelocytes) > 1% indicates that a LEFT SHIFT is Present. MCH (RBC) [Entitic mass] 33.0 pg 27.0-32.0 [facility] Nucleated RBC/100 WBC (Bld) [Ratio] 0 % 0-5 [facility] Auto (RBC) [Mass/Vol]Or dered By: Malika Rojas on 08-31-2022 MCHC (RBC) [Mass/Vol] 34.2 g/dL 32-36 [facility] No Panel InformationOrdered By: Audi Esqueda on 08-31-2022 Troponin I High Sensitivity 7 pg/mL 3.0-78.0 [facility] Comment on above: Please Note: [place] Units and Gender Specific Reference Ranges. For more information see Policy Stat Procedure [place] High Sensitivity Troponin (TNIH) and attachments. No Panel InformationOrdered By: Malika Rojas on 08-31-2022 Estimated Creatinine Clearance Calc 54.35 ml/min [facility] Estimated GFR (MDRD) Amer 77 mL/min >60 [facility] Comment on above: GFR Calc Estimated GFR (MDRD) Non-Af Amer 64 mL/min >60 [facility] Comment on above: Non- GFR Calc Troponin I High Sensitivity 5 pg/mL 3.0-78.0 [facility] Comment on above: Please Note: [place] Units and Gender Specific Reference Ranges. For more information see Policy Stat Procedure [place] High Sensitivity Troponin (TNIH) and attachments. Platelets bldOrdered By: Enzo Rojas on 08-31-2022 Platelets (Bld) [#/Vol] 150 10*3/uL 150-450 [facility] Serum or plasma calcium [place] urement (mass/volume)Ordered By: Malika Rojas on 08-31-2022 Calcium [Mass/Vol] 9.1 mg/dL 8.5-10.1 [facility] Comment on above: Moderate Lipemia, Re sult may be falsely decreased. Serum or plasma creatinine m easurement (mass/volume)Ordered By: Malika Rojas on 08-31-2022 Creatinine [Mass/Vol] 1.17 mg/dL 0.70-1.30 [facility] Comment on above: The validity of the calculated GFR & GFRAA in patients over 70 years has not been determined. Clinical correlation is essential. Serum or plasma urea nitroge n measurement (mass/volume)Ordered By: Malika Rojas on 08-31-2022 Urea nitrogen [Mass/Vol] 14 mg/dL 7-18 [facility] Thin prep Papanicolaou smear with manual screeningOrdered By: Malika Rojas on 08-31-2022 Thin prep Papanicolaou smear with manual screening 3 5-15 [facility] Basophil percentageOrdered B y: Dr. Rich on 03-11-2022 Chloride [Moles/Vol] 105 mmol/L 98-107 [facility] Glucose [Mass/Vol] 120 mg/dL 74-106 [facility] Comment on above: Moderate Lipemia, Re sult may be falsely increased.Fasting Glucose result from 100 to 125 mg/dL suggests IMPAIRED HOMEOSTASIS per A.D.A. criteria. Potassium [Moles/Vol] 3.7 mmol/L 3.5-5.1 [facility] Sodium [Moles/Vol] 141 mmol/L 136-145 [facility] WBC (Bld) [#/Vol] 4.5 10*3/uL 4.4-11.0 [facility] Blood erythrocytes count (nu mber/volume)Ordered By: Dr. Rich on 03-11-2022 RBC (Bld) [#/Vol] 4.23 10*6/uL 4.6-6.2 [facility] Blood hemoglobin measurement (mass/volume)Ordered By: Dr. Rich on 03-11-2022 Hemoglobin (Bld) [Mass/Vol] 13.8 g/dL 13.0-16.5 [facility] Blood platelet mean volumeOr dered By: Dr. Rich on 03-11-2022 Platelet mean volume (Bld) [Entitic vol] 10.1 fL 6.2-12.0 [facility] Determination of erythrocyte mean corpuscular volume (MCV)Ordered By: Dr. Rich on 03-11-2022 MCV (RBC) [Entitic vol] 95.5 fL 80-94 [facility] Hematocrit Auto (Bld) [Volum e fraction]Ordered By: Dr. Rich on 03-11-2022 Hematocrit (Bld) [Volume fraction] 40.4 % 40-54 [facility] Laboratory - Chemistry and C hemistry - challengeOrdered By: Dr. Rich on 03-11-2022 CO2 [Moles/Vol] 30.0 mmol/L 21.0-32.0 [facility] Urea nitrogen/Creatinine [Mass ratio] 18.3 mg/mg 10-20 [facility] Laboratory - Hematology and Cell countsOrdered By: Dr. Rich on 03-11-2022 Erythrocyte distribution width (RBC) [Entitic vol] 44.7 fL 35.1-43.9 [facility] Erythrocyte distribution width (RBC) [Ratio] 12.7 % 11.6-14.6 [facility] MCH (RBC) [Entitic mass] 32.6 pg 27.0-32.0 [facility] MCHC Auto (RBC) [Mass/Vol]Or dered By: Dr. Rich on 03-11-2022 MCHC (RBC) [Mass/Vol] 34.2 g/dL 32-36 [facility] No Panel InformationOrdered By: Dr. Rich on 03-11-2022 Estimated GFR (MDRD) Amer 68 mL/min >60 [facility] Comment on above: GFR Calc Estimated GFR (MDRD) Non-Af Amer 56 mL/min >60 [facility] Comment on above: Non- GFR Calc Platelets bldOrdered By: Dr. Rich on 03-11-2022 Platelets (Bld) [#/Vol] 151 10*3/uL 150-450 [facility] Serum or plasma calcium [place] urement (mass/volume)Ordered By: Dr. Rich on 03-11-2022 Calcium [Mass/Vol] 9.0 mg/dL 8.5-10.1 [facility] Comment on above: Moderate Lipemia, Re sult may be falsely decreased. Serum or plasma creatinine m easurement (mass/volume)Ordered By: Dr. Rich on 03-11-2022 Creatinine [Mass/Vol] 1.31 mg/dL 0.70-1.30 [facility] Comment on above: The validity of the calculated GFR & GFRAA in patients over 70 years has not been determined. Clinical correlation is essential. Serum or plasma urea nitroge n measurement (mass/volume)Ordered By: Dr. Rich on 03-11-2022 Urea nitrogen [Mass/Vol] 24 mg/dL 7-18 [facility] Thin prep Papanicolaou smear with manual screeningOrdered By: Dr. Rich on 03-11-2022 Thin prep Papanicolaou smear with manual screening 06-29 [facility] CBC AND ELECTRONIC DIFFon Basophils (Bld) [#/Vol] K/uL 0.00 - 0.09 K/uL [facility] Basophils/100 WBC (Bld) 0.5 % [facility] Differential cell count method Nom (Bld) Electronic Differential [facility] Eosinophils (Bld) [#/Vol] 0.12 10*3/uL 0.00 - 0.48 K/uL [facility] Eosinophils/100 WBC (Bld) 2.1 % [facility] Erythrocyte distribution width (RBC) [Ratio] 12.9 % 10.9 - 14.3 % [facility] Hematocrit (Bld) [Volume fraction] 40.3 % 39.6 - 48.8 % [facility] Hemoglobin (Bld) [Mass/Vol] 14.0 g/dL 13.4 - 16.8 g/dL [facility] Immature granulocytes (Bld) [#/Vol] K/uL NINF - 0.07 K/uL [facility] Immature granulocytes/100 WBC (Bld) 0.2 % [facility] Interpretation and review of laboratory results Abnormal [facility] Lymphocytes (Bld) [#/Vol] 1.11 10*3/uL 0.83 - 3.57 K/uL [facility] Lymphocytes/100 WBC (Bld) 19.7 % [facility] MCH (RBC) [Entitic mass] 32.8 pg 26.1 - 33.3 pg [facility] MCHC (RBC) [Mass/Vol] 34.7 g/dL 31.9 - 36.5 g/dL [facility] MCV (RBC) [Entitic vol] 94.4 fL 79.0 - 94.5 fL [facility] Monocytes (Bld) [#/Vol] 0.47 10*3/uL 0.24 - 0.93 K/uL [facility] Monocytes/100 WBC (Bld) 8.3 % [facility] Neutrophils (Bld) [#/Vol] 3.89 10*3/uL 1.57 - 6.19 K/uL [facility] Nucleated RBC/100 WBC (Bld) [Ratio] 0.0 % [facility] Platelet mean volume (Bld) [Entitic vol] 9.8 fL 8.7 - 12.3 fL [facility] Platelets (Bld) [#/Vol] 162 10*3/uL 146 - 337 K/uL [facility] RBC (Bld) [#/Vol] 4.27 10*6/uL Low [facility] Segmented neutrophils/100 WBC (Bld) 69.2 % [facility] WBC (Bld) [#/Vol] 5.63 10*3/uL 3.73 - 10.10 K/uL [facility] COMPREHENSIVE METABOLIC PANE Fuad 01-30-2022 Albumin [Mass/Vol] 4.2 g/dL 3.5 - 5.0 g/dL [facility] ALP [Catalytic activity/Vol] 79 U/L 32 - 126 U/L [facility] ALT [Catalytic activity/Vol] 16 U/L 10 - 52 U/L [facility] Anion gap [Moles/Vol] 8 mmol/L 7 - 17 mmol/L [facility] AST [Catalytic activity/Vol] 18 U/L 10 - 39 U/L [facility] Bilirubin [Mass/Vol] 1.2 mg/dL [facility]/dL [facility] Calcium [Mass/Vol] 9.4 mg/dL 8.6 - 10. 5 mg/dL [facility] Chloride [Moles/Vol] 105 mmol/L 98 - 10 8 mmol/L [facility] CO2 [Moles/Vol] 28 mmol/L 21 - 31 mmol/L [facility] Creatinine [Mass/Vol] 1.17 mg/dL 0.70 - 1.30 mg/dL [facility] GFR/1.73 sq M.predicted CKD-EPI (S/P/Bld) [Vol rate/Area] 63 - PINF [facility] Comment on above: Reported eGFR is bas ed on the CKD-EPI 2020 equation using creatinine, age, and sex. Glucose [Mass/Vol] 93 mg/dL 70 - 99 mg/dL [facility] Osmolality Calc [facility]olality] [facility] Potassium [Moles/Vol] 4.2 mmol/L 3.5 - 5.0 mmol/L [facility] Protein [Mass/Vol] 7.1 g/dL 6.4 - 8.3 g/dL [facility] Sodium [Moles/Vol] 137 mmol/L 135 - 145 mmol/L [facility] Urea nitrogen [Mass/Vol] 21 mg/dL 7 - 25 mg/dL [facility] Urea nitrogen/Creatinine [Mass ratio] 18 mg/mg [facility] IMMUNOGLOBULINS IGG IGA IGMO rdered By: Oskar Lizarraga on 01-30-2022 IgA [Mass/Vol] 127 mg/dL 90 - 410 mg/dL [facility] IgG [Mass/Vol] 679 mg/dL 600 - 1560 mg/dL [facility] IgM [Mass/Vol] 888 mg/dL High 30 - 360 mg/dL [facility] Interpretation and review of laboratory results Abnormal [facility] LACTATE DEHYDROGENASEon 01-15 Interpretation and review of laboratory results Normal [facility] LDH Lactate to pyruvate reaction [Catalytic activity/Vol] 139 U/L 100 - 190 U/L [facility] No Panel Informationon 01-30 [facility] SPE SERUM TOTAL PROTEINon Interpretation and review of laboratory results Normal [facility] Protein [Mass/Vol] 6.9 g/dL 6.4 - 8.3 g/dL [facility] XR Chest PA and Lateralon IMPRESSION: Stable chest. No acute cardiopulmonary process. Senior Controls Technician: KRISTINA Transcribe Date/Time: Sep 18 2021 6:13P Dictated by : TRACEY JONES MD This examination was interpreted and the report reviewed and electronically signed by: TRACEY JONES MD on Sep 18 2021 6:17PM EST ZZZ_DO_NOT_ USE_DIVISIO N OF RADIOLOGY * * *Final Report* * * DATE OF EXAM: Sep 18 2021 4:52PM WOX 5291 - XR CHEST 2V FRONTAL/LAT / PROCEDURE REASON: Acute cough * * * * Physician Interpretation * * * * EXAMINATION: CHEST RADIOGRAPH (2 VIEW FRONTAL & LATERAL) CLINICAL HISTORY: Acute cough MQ: XC2_6 EXAM DATE/TIME: 09/18/2021 4:52 PM COMPARISON: Comparison is made to prior chest radiograph dated 12 October 2020, 22 April 2018 and 18 December 2014 RESULT: Lines, tubes, and devices: None. Lungs and pleura: There is calcified residual of prior granulomatous infection. There is no focal consolidation or acute pleural process/fluid. There is no vascular redistribution to suggest pulmonary edema. Cardiomediastinal silhouette: The cardiac, mediastinal and hilar shadows are unchanged with stable mild unfolding of the ascending and descending thoracic aorta. Bones/soft tissues: The bony structures are intact with mild degenerative change. No bony destructive process noted. ZZZ_DO_NOT_ USE_DIVISIO N OF RADIOLOGY Provider, [facility] - 09/18/2021 * * *Final Report* * * DATE OF EXAM: Sep 18 2021 4:52PM WOX 5291 - XR CHEST 2V FRONTAL/LAT / PROCEDURE REASON: Acute cough * * * * Physician Interpretation * * * * EXAMINATION: CHEST RADIOGRAPH (2 VIEW FRONTAL & LATERAL) CLINICAL HISTORY: Acute cough MQ: XC2_6 EXAM DATE/TIME: 09/18/2021 4:52 PM COMPARISON: Comparison is made to prior chest radiograph dated 12 October 2020, 22 April 2018 and 18 December 2014 RESULT: Lines, tubes, and devices: None. Lungs and pleura: There is calcified residual of prior granulomatous infection. There is no focal consolidation or acute pleural process/fluid. There is no vascular redistribution to suggest pulmonary edema. Cardiomediastinal silhouette: The cardiac, mediastinal and hilar shadows are unchanged with stable mild unfolding of the ascending and descending thoracic aorta. Bones/soft tissues: The bony structures are intact with mild degenerative change. No bony destructive process noted. IMPRESSION IMPRESSION: Stable chest. No acute cardiopulmonary process. Senior Controls Technician: PSCB Transcribe Date/Time: Sep 18 2021 6:13P Dictated by : TRACEY JONES MD This examination was interpreted and the report reviewed and electronically signed by: TRACEY JONES MD on Sep 18 2021 6:17PM EST [facility] Radiology Study observation (narrative) [facility] XR Chest PA and LateralOrder ed By: Ccf Provider on 09-18-2021 [facility] VISCOSITY, SERUMon 2 VISCOSITY, SERUM 1.6 [facility] Comment on above: Units = Relative to Water Test Performed at: [employer] [address] [id number] Agustín Mejia M.D., Ph.D.,Director of Laboratories [facility] CBC AND ELECTRONIC DIFFon Basophils (Bld) [#/Vol] 10*3/uL 0.00 - 0.09 K/uL [facility] Basophils/100 WBC (Bld) 0.5 % [facility] Differential cell count method Nom (Bld) Electronic Differential [facility] Eosinophils (Bld) [#/Vol] 0.14 10*3/uL 0.00 - 0.48 K/uL [facility] Eosinophils/100 WBC (Bld) 2.5 % [facility] Erythrocyte distribution width (RBC) [Ratio] 12.6 % 10.9 - 14.3 % [facility] Hematocrit (Bld) [Volume fraction] 38.7 % Low 39.6 - 48.8 % [facility] Hemoglobin (Bld) [Mass/Vol] 13.5 g/dL 13.4 - 16.8 g/dL [facility] Immature granulocytes (Bld) [#/Vol] 10*3/uL <=0.08 K/uL [facility] Immature granulocytes/100 WBC (Bld) 0.2 % [facility] Interpretation and review of laboratory results Abnormal [facility] Lymphocytes (Bld) [#/Vol] 1.06 10*3/uL 0.83 - 3.57 K[facility]L [facility] Lymphocytes/100 WBC (Bld) 18.9 % [facility] MCH (RBC) [Entitic mass] 33.8 pg High 26.1 - 33.3 pg [facility] MCHC (RBC) [Mass/Vol] 34.9 g/dL 31.9 - 36.5 g/dL [facility] MCV (RBC) [Entitic vol] 96.8 fL High 79.0 - 94.5 fL [facility] Monocytes (Bld) [#/Vol] 0.56 10*3/uL 0.24 - 0.93 K/uL [facility] Monocytes/100 WBC (Bld) 10.0 % [facility] Neutrophils (Bld) [#/Vol] 3.81 10*3/uL 1.57 - 6.19 K/uL [facility] Nucleated RBC/100 WBC (Bld) [Ratio] 0.0 % <=0.2 /100 WBC [facility] Platelet mean volume (Bld) [Entitic vol] 9.9 fL 8.7 - 12.3 fL [facility] Platelets (Bld) [#/Vol] 146 10*3/uL 146 - 337 K/uL [facility] RBC (Bld) [#/Vol] 4.00 10*6/uL Low [facility] Segmented neutrophils/100 WBC (Bld) 67.9 % [facility] WBC (Bld) [#/Vol] 5.61 10*3/uL 3.73 - 10.10 K/uL [facility] COMPREHENSIVE METABOLIC PANE Fuad 08-01-2021 Albumin [Mass/Vol] 4.0 g/dL 3.5 - 5.0 g/dL [facility] ALP [Catalytic activity/Vol] 75 U/L 32 - 126 U/L [facility] ALT [Catalytic activity/Vol] 12 U/L 10 - 52 U/L [facility] Anion gap [Moles/Vol] 8 mmol/L 7 - 17 mmol/L [facility] AST [Catalytic activity/Vol] 17 U/L 10 - 39 U[facility]L [facility] Bilirubin [Mass/Vol] 1.0 mg/dL <1.5 [facility] Calcium [Mass/Vol] 8.9 mg/dL 8.6 - 10. 5 mg/dL [facility] Chloride [Moles/Vol] 106 mmol/L 98 - 10 8 mmol/L [facility] CO2 [Moles/Vol] 27 mmol/L 21 - 31 mmol/L [facility] Creatinine [Mass/Vol] 1.13 mg/dL 0.70 - 1.30 mg/dL [facility] GFR/1.73 sq M.predicted CKD-EPI (S/P/Bld) [Vol rate/Area] 66 >=60 mL/min/1.73 m2 [facility] Comment on above: Reported eGFR is bas ed on the CKD-EPI 2020 equation using creatinine, age, and sex. Glucose [Mass/Vol] 87 mg/dL 70 - 99 mg/dL [facility] Osmolality Calc [Osmolality] 290 [facility] Potassium [Moles/Vol] 4.2 mmol/L 3.5 - 5.0 mmol/L [facility] Protein [Mass/Vol] 6.7 g/dL 6.4 - 8.3 g/dL [facility] Sodium [Moles/Vol] 137 mmol/L 135 - 145 mmol/L [facility] Urea nitrogen [Mass/Vol] 21 mg/dL 7 - 25 mg/dL [facility] Urea nitrogen/Creatinine [Mass ratio] 19 mg/mg [facility] IMMUNOGLOBULINS IGG IGA IGMO rdered By: Dawn Mclain on 08-01-2021 IgA [Mass/Vol] 154 mg/dL 90 - 410 mg/dL [facility] IgG [Mass/Vol] 624 mg/dL 600 - 1560 mg/dL [facility] IgM [Mass/Vol] 770 mg/dL High 30 - 360 mg/dL [facility] Interpretation and review of laboratory results Abnormal [facility] LACTATE DEHYDROGENASEon - Interpretation and review of laboratory results Normal [facility] LDH Lactate to pyruvate reaction [Catalytic activity/Vol] 130 U/L 100 - 190 U/L [facility] No Panel Informationon 08-01 [facility] SPE SERUM TOTAL PROTEINon Interpretation and review of laboratory results Normal [facility] Protein [Mass/Vol] 6.4 g/dL 6.4 - 8.3 g/dL [facility] XR Foot - left AP and Latera l and obliqueon 02-19-2021 IMPRESSION: 1. Remote fifth metatarsal fracture. 2. Degenerative changes and calcaneal enthesopathy. Senior Controls Technician: KRISTINA Transcribe Date/Time: Feb 19 2021 10:22A Dictated by : DELFINO SAMANO MD This examination was interpreted and the report reviewed and electronically signed by: DELFINO SAMANO MD on Feb 19 2021 10:24AM [facility] DIVISION OF RADIOLOGY * * *Final Report* * * DATE OF EXAM: Feb 19 2021 10:05AM WOX [id number] - XR FOOT 3V AP/LAT/OBL LT / PROCEDURE REASON: Toe pain, left * * * * Physician Interpretation * * * * CLINICAL INDICATION: Pain TECHNIQUE: 3 view radiographic study of the left foot COMPARISON: None FINDINGS: There is a remote, seemingly ununited though nondisplaced fracture of the base of the fifth metatarsal. No acute fracture or dislocation. Mild first interphalangeal joint degenerative changes with mild joint space narrowing and subchondral cystic change. Mild tarsal degenerative changes with mild dorsal hypertrophic spurring. Dorsal and miniscule plantar calcaneal enthesophytes. DIVISION OF RADIOLOGY Provider, Bassem Gray - 02/19/2021 * * *Final Report* * * DATE OF EXAM: Feb 19 2021 10:05AM WOX 5336 - XR FOOT 3V AP/LAT/OBL LT / PROCEDURE REASON: Toe pain, left * * * * Physician Interpretation * * * * CLINICAL INDICATION: Pain TECHNIQUE: 3 view radiographic study of the left foot COMPARISON: None FINDINGS: There is a remote, seemingly ununited though nondisplaced fracture of the base of the fifth metatarsal. No acute fracture or dislocation. Mild first interphalangeal joint degenerative changes with mild joint space narrowing and subchondral cystic change. Mild tarsal degenerative changes with mild dorsal hypertrophic spurring. Dorsal and miniscule plantar calcaneal enthesophytes. IMPRESSION IMPRESSION: 1. Remote fifth metatarsal fracture. 2. Degenerative changes and calcaneal enthesopathy. Senior Controls Technician: KRISTINA Transcribe Date/Time: Feb 19 2021 10:22A Dictated by : DELFINO SAMANO MD This examination was interpreted and the report reviewed and electronically signed by: DELFINO SAMANO MD on Feb 19 2021 10:24AM EST [facility] Radiology Study observation (narrative) [facility] XR Foot - left AP and Latera l and obliqueOrdered By: Ccf Provider on 02-19-2021 [facility] XR Chest PA and Lateralon IMPRESSION: No acute radiographic abnormality. Senior Controls Technician: Angiodroid Transcribe Date/Time: Oct 12 2020 10:43A Dictated by : Lauren ALMODOVAR MD This examination was interpreted and the report reviewed and electronically signed by: Lauren ALMODOVAR MD on Oct 12 2020 10:51AM EST DIVISION OF RADIOLOGY * * *Final Report* * * DATE OF EXAM: Oct 12 2020 10:30AM WOX 5291 - XR CHEST 2V FRONTAL/LAT / PROCEDURE REASON: Cough * * * * Physician Interpretation * * * * EXAMINATION: CHEST RADIOGRAPH (2 VIEW FRONTAL & LATERAL) CLINICAL HISTORY: Cough MQ: XC2_6 EXAM DATE/TIME: 10/12/2020 10:30 AM COMPARISON: 04/22/2018 RESULT: Lines, tubes, and devices: None. Lungs and pleura: No consolidation. Benign calcified granulomas in the left upper lobe. No pleural effusion. No pneumothorax. Cardiomediastinal silhouette: Normal cardiomediastinal silhouette. Bones and soft tissues: Unremarkable. DIVISION OF RADIOLOGY Provider, [facility] Camila [facility] - 10/12/2020 * * *Final Report* * * DATE OF EXAM: Oct 12 2020 10:30AM WOX 5291 - XR CHEST 2V FRONTAL/LAT / PROCEDURE REASON: Cough * * * * Physician Interpretation * * * * EXAMINATION: CHEST RADIOGRAPH (2 VIEW FRONTAL & LATERAL) CLINICAL HISTORY: Cough MQ: XC2_6 EXAM DATE/TIME: 10/12/2020 10:30 AM COMPARISON: 04/22/2018 RESULT: Lines, tubes, and devices: None. Lungs and pleura: No consolidation. Benign calcified granulomas in the left upper lobe. No pleural effusion. No pneumothorax. Cardiomediastinal silhouette: Normal cardiomediastinal silhouette. Bones and soft tissues: Unremarkable. IMPRESSION IMPRESSION: No acute radiographic abnormality. Senior Controls Technician: PSCB Transcribe Date/Time: Oct 12 2020 10:43A Dictated by : Lauren ALMODOVAR MD This examination was interpreted and the report reviewed and electronically signed by: Lauren ALMODOVAR MD on Oct 12 2020 10:51AM EST [facility] Radiology Study observation (narrative) [facility] XR Chest PA and LateralOrder ed By: Ccf Provider on 10-12-2020 [facility] CBC AND ELECTRONIC DIFFon Basophils (Bld) [#/Vol] 10*3/uL 0.00 - 0.09 K/uL [facility] Basophils/100 WBC (Bld) 0.5 % [facility] DIFF STATUS Electronic Differential [facility] Eosinophils (Bld) [#/Vol] 0.14 10*3/uL 0.00 - 0.48 K/uL [facility] Eosinophils/100 WBC (Bld) 2.5 % [facility] Erythrocyte distribution width (RBC) [Ratio] 13.0 % 10.9 - 14.3 % [facility] Hematocrit (Bld) [Volume fraction] 38.3 % Low 39.6 - 48.8 % [facility] Hemoglobin (Bld) [Mass/Vol] 13.0 g/dL Low 13.4 - 16.8 g/dL [facility] Immature granulocytes (Bld) [#/Vol] 10*3/uL <=0.08 K/uL [facility] Immature granulocytes/100 WBC (Bld) 0.2 % [facility] Interpretation and review of laboratory results Abnormal [facility] Lymphocytes (Bld) [#/Vol] 1.06 10*3/uL 0.83 - 3.57 K/uL [facility] Lymphocytes/100 WBC (Bld) 19.2 % [facility] MCH (RBC) [Entitic mass] 32.0 pg 26.1 - 33.3 pg [facility] MCHC (RBC) [Mass/Vol] 33.9 g/dL 31.9 - 36.5 g/dL [facility] MCV (RBC) [Entitic vol] 94.3 fL 79.0 - 94.5 fL [facility] Monocytes (Bld) [#/Vol] 0.61 10*3/uL 0.24 - 0.93 K/uL [facility] Monocytes/100 WBC (Bld) 11.0 % [facility] Neutrophils (Bld) [#/Vol] 3.68 10*3/uL 1.57 - 6.19 K/uL [facility] Nucleated RBC/100 WBC (Bld) [Ratio] 0.0 % <=0.2 /100 WBC [facility] Platelet mean volume (Bld) [Entitic vol] 10.2 fL 8.7 - 12.3 fL [facility] Platelets (Bld) [#/Vol] 160 10*3/uL 146 - 337 K/uL [facility] RBC (Bld) [#/Vol] 4.06 10*6/uL Low [facility] Segmented neutrophils/100 WBC (Bld) 66.6 % [facility] WBC (Bld) [#/Vol] 5.53 10*3/uL 3.73 - 10.10 K/uL [facility] COMPREHENSIVE METABOLIC PANE Fuad 09-12-2020 Albumin [Mass/Vol] 3.8 g/dL 3.5 - 5.0 g/dL [facility] ALP [Catalytic activity/Vol] 78 U/L 32 - 126 U/L [facility] ALT [Catalytic activity/Vol] 15 U/L 10 - 52 U/L [facility] Anion gap [Moles/Vol] 9 mmol/L 7 - 17 mmol/L [facility] AST [Catalytic activity/Vol] 19 U/L 14 - 40 U/L [facility] Bilirubin [Mass/Vol] 0.9 mg/dL <1.5 [facility] Calcium [Mass/Vol] 8.9 mg/dL 8.6 - 10. 5 mg/dL [facility] Chloride [Moles/Vol] 105 mmol/L 98 - 10 8 mmol/L [facility] CO2 [Moles/Vol] 27 mmol/L 22 - 30 mmol/L [facility] Creatinine [Mass/Vol] 1.06 mg/dL 0.70 - 1.30 mg/dL [facility] Glucose [Mass/Vol] 88 mg/dL 70 - 99 mg/dL [facility] Interpretation and review of laboratory results Abnormal [facility] Osmolality Calc [Osmolality] 290 [facility] Potassium [Moles/Vol] 4.2 mmol/L 3.5 - 5.0 mmol/L [facility] Protein [Mass/Vol] 6.7 g/dL 6.4 - 8.3 g/dL [facility] Sodium [Moles/Vol] 137 mmol/L 133 - 143 mmol/L [facility] Urea nitrogen [Mass/Vol] 23 mg/dL High 7 - 22 mg/dL [facility] Urea nitrogen/Creatinine [Mass ratio] 22 mg/mg [facility] IMMUNOGLOBULINS IGG IGA IGMO rdered By: Maxwell Henson on 09-12-2020 IgA [Mass/Vol] 131 mg/dL 90 - 410 mg/dL [facility] IgG [Mass/Vol] 606 mg/dL 600 - 1560 mg/dL [facility] IgM [Mass/Vol] 794 mg/dL High 30 - 360 mg/dL [facility] Interpretation and review of laboratory results Abnormal [facility] LACTATE DEHYDROGENASEon -2 Interpretation and review of laboratory results Normal [facility] LDH Lactate to pyruvate reaction [Catalytic activity/Vol] 142 U/L 100 - 190 U/L [facility] Laboratory - Chemistry and C hemistry - challengeon 09-12-2020 GFR/1.73 sq M.predicted MDRD (S/P/Bld) [Vol rate/Area] mL/min/{1.73_m2} >=60 mL/min/1.73 sqM [facility] No Panel Informationon 09-12 [facility] SPE SERUM TOTAL PROTEINon Interpretation and review of laboratory results Normal [facility] Protein [Mass/Vol] 6.5 g/dL 6.4 - 8.3 g/dL [facility] Vital Signs Date Time Vital Sign Value Performing Clinician Facility 10-19-2024 10:26-0400 Body height 181.6 cm [employer] Work Phone: [facility] 10-19-2024 10:26-0400 Body mass index (BMI) [Ratio] 22.97 kg/m2 [employer] Work Phone: [facility] 10-19-2024 10:26-0400 Body weight 75.75 kg [employer] Work Phone: [facility] 10-19-2024 10:26-0400 Diastolic blood pressure 78 mm[Hg] [employer] Work Phone: [facility] 10-19-2024 10:26-0400 Heart rate 60 /min [employer] Work Phone: [facility] 10-19-2024 10:26-0400 Respiratory rate 16 /min [employer] Work Phone: [facility] 10-19-2024 10:26-0400 Systolic blood pressure 133 mm[Hg] [employer] Work Phone: [facility] 08-30-2024 13:00-0400 Body height 181 cm Jared Robertson MD Work Phone: [facility] 08-30-2024 13:00-0400 Body mass index (BMI) [Ratio] 23.9 kg/m2 Jared Robertson MD Work Phone: [facility] 08-30-2024 13:00-0400 Body weight 78.29 kg Jared Robertson MD Work Phone: [facility] 08-30-2024 13:00-0400 Diastolic blood pressure 64 mm[Hg] Jared Robertson MD Work Phone: [facility] 08-30-2024 13:00-0400 Heart rate 60 /min Jared Robertson MD Work Phone: [facility] 08-30-2024 13:00-0400 Respiratory rate 16 /min Jared Robertson MD Work Phone: [facility] 08-30-2024 13:00-0400 Systolic blood pressure 120 mm[Hg] Jared Robertson MD Work Phone: [facility] 08-22-2024 10:47-0400 Diastolic blood pressure 69 mm[Hg] Treatment Wstr Work Phone: [facility] 08-22-2024 10:47-0400 Heart rate 49 /min Treatment Wstr Work Phone: [facility] 08-22-2024 10:47-0400 Systolic blood pressure 113 mm[Hg] Treatment Wstr Work Phone: [facility] 08-22-2024 07:52-0400 Body mass index (BMI) [Ratio] 23.6 kg/m2 Treatment [facility]str Work Phone: [facility] 08-22-2024 07:52-0400 Body temperature 97.2 [degF] Treatment Wstr Work Phone: [facility] 08-22-2024 07:52-0400 Body weight 78.93 kg Treatment Wstr Work Phone: [facility] 08-22-2024 07:52-0400 SaO2% (BldA) [Mass fraction] 98 % Treatment [facility]str Work Phone: [facility] 07-17-2024 10:34-0400 Body height 182.9 cm Maxwell Akiko DO Work Phone: [facility] 07-17-2024 10:34-0400 Body mass index (BMI) [Ratio] 24.14 kg/m2 Maxwell Akiko DO Work Phone: [facility] 07-17-2024 10:34-0400 Body weight 80.74 kg Maxwell Akiko DO Work Phone: [facility] 07-17-2024 10:34-0400 Diastolic blood pressure 79 mm[Hg] Maxwell Akiko DO Work Phone: [facility] 07-17-2024 10:34-0400 Heart rate 46 /min Maxwell Akiko DO Work Phone: [facility] 07-17-2024 10:34-0400 SaO2% (BldA) [Mass fraction] 98 % Maxwell Akiko DO Work Phone: [facility] 07-17-2024 10:34-0400 Systolic blood pressure 136 mm[Hg] Maxwell Akiko DO Work Phone: [facility] 03-22-2024 19:01-0500 Diastolic blood pressure 58 mm[Hg] Jared Robertson MD Work Phone: [facility] 03-22-2024 19:01-0500 Systolic blood pressure 122 mm[Hg] Jared Robertson MD Work Phone: [facility] 03-22-2024 18:20-0500 Body height 182.9 cm Jared Robertson MD Work Phone: [facility] 03-22-2024 18:20-0500 Body mass index (BMI) [Ratio] 24.01 kg/m2 Jared Robertson MD Work Phone: [facility] 03-22-2024 18:20-0500 Body weight 80.29 kg Jared Robertson MD Work Phone: [facility] 03-22-2024 18:20-0500 Heart rate 55 /min Jared Robertson MD Work Phone: [facility] 03-22-2024 18:20-0500 SaO2% (BldA) [Mass fraction] 98 % Jared Robertson MD Work Phone: [facility] 03-17-2024 10:41-0500 Diastolic blood pressure 68 mm[Hg] Suzette Aguilar MD Work Phone: [facility] Comment on above: manual blood pressure 03-17-2024 10:41-0500 Systolic blood pressure 162 mm[Hg] Suzette Aguilar MD Work Phone: [facility] Comment on above: manual blood pressure 03-17-2024 09:50-0500 Body mass index (BMI) [Ratio] 23.9 kg/m2 Suzette Aguilar MD Work Phone: [facility] 03-17-2024 09:50-0500 Body temperature 97.39 [degF] Suzette Aguilar MD Work Phone: [facility] 03-17-2024 09:50-0500 Body weight 79.92 kg Suzette Aguilar MD Work Phone: [facility] 03-17-2024 09:50-0500 Heart rate 53 /min Suzette Aguilar MD Work Phone: [facility] 03-17-2024 09:50-0500 Respiratory rate 18 /min Suzette Aguilar MD Work Phone: [facility] 03-17-2024 09:50-0500 SaO2% (BldA) [Mass fraction] 98 % Suzette Aguilar MD Work Phone: [facility] 03-07-2024 11:37-0500 Diastolic blood pressure 70 mm[Hg] Treatment Wstr Work Phone: [facility] 03-07-2024 11:37-0500 Heart rate 47 /min Treatment Wstr Work Phone: [facility] 03-07-2024 11:37-0500 SaO2% (BldA) [Mass fraction] 99 % Treatment Wstr Work Phone: [facility] 03-07-2024 11:37-0500 Systolic blood pressure 113 mm[Hg] Treatment Wstr Work Phone: [facility] 03-07-2024 07:48-0500 Body mass index (BMI) [Ratio] 24.01 kg/m2 Treatment Wstr Work Phone: [facility] 03-07-2024 07:48-0500 Body temperature 97.2 [degF] Treatment Wstr Work Phone: [facility] 03-07-2024 07:48-0500 Body weight 80.29 kg Treatment Wstr Work Phone: [facility] 02-23-2024 14:37-0500 Body mass index (BMI) [Ratio] 23.33 kg/m2 Jared Robertson MD Work Phone: [facility] 02-23-2024 14:37-0500 Body weight 78.02 kg Jared Robertson MD Work Phone: [facility] 02-23-2024 14:37-0500 Diastolic blood pressure 82 mm[Hg] Jared Robertson MD Work Phone: [facility] 02-23-2024 14:37-0500 Heart rate 58 /min Jared Robertson MD Work Phone: [facility] 02-23-2024 14:37-0500 Respiratory rate 18 /min Jared Robertson MD Work Phone: [facility] 02-23-2024 14:37-0500 Systolic blood pressure 118 mm[Hg] Jared Robertson MD Work Phone: [facility] 02-20-2024 10:35-0500 Body mass index (BMI) [Ratio] 23.77 kg/m2 Korina Aguilar APRN.CNP Work Phone: [facility] 02-20-2024 10:35-0500 Body temperature 99.1 [degF] Korina Aguilar WAITER/WAITRESS.MATTRESS FINISHER Work Phone: [facility] 02-20-2024 10:35-0500 Body weight 79.5 kg Korina Aguilar WAITER/WAITRESS.MATTRESS FINISHER Work Phone: [facility] 02-20-2024 10:35-0500 Diastolic blood pressure 62 mm[Hg] Korina Aguilar WAITER/WAITRESS.MATTRESS FINISHER Work Phone: [facility] 02-20-2024 10:35-0500 Heart rate 84 /min Korina Aguilar WAITER/WAITRESS.MATTRESS FINISHER Work Phone: [facility] 02-20-2024 10:35-0500 Respiratory rate 16 /min Korina Aguilar WAITER/WAITRESS.MATTRESS FINISHER Work Phone: [facility] 02-20-2024 10:35-0500 SaO2% (BldA) [Mass fraction] 96 % Korina Aguilar WAITER/WAITRESS.MATTRESS FINISHER Work Phone: [facility] 02-20-2024 10:35-0500 Systolic blood pressure 120 mm[Hg] Korina Aguilar WAITER/WAITRESS.MATTRESS FINISHER Work Phone: [facility] 01-12-2024 15:20-0500 Body mass index (BMI) [Ratio] 23.6 kg/m2 Jared Robertson MD Work Phone: [facility] 01-12-2024 15:20-0500 Body weight 78.93 kg Jared Robertson MD Work Phone: [facility] 01-12-2024 15:20-0500 Diastolic blood pressure 68 mm[Hg] Jared Robertson MD Work Phone: [facility] 01-12-2024 15:20-0500 Heart rate 64 /min Jared Robertson MD Work Phone: [facility] 01-12-2024 15:20-0500 Respiratory rate 16 /min Jared Robertson MD Work Phone: [facility] 01-12-2024 15:20-0500 Systolic blood pressure 122 mm[Hg] Jared Robertson MD Work Phone: [facility] 11-23-2023 09:48-0400 Body height 182.9 cm Maxwell Akiko DO Work Phone: [facility] 11-23-2023 09:48-0400 Body mass index (BMI) [Ratio] 23.05 kg/m2 Maxwell Akiko DO Work Phone: [facility] 11-23-2023 09:48-0400 Body weight 77.1 kg Maxwell Akiko DO Work Phone: [facility] 11-23-2023 09:48-0400 Diastolic blood pressure 62 mm[Hg] Maxwell Akiko DO Work Phone: [facility] 11-23-2023 09:48-0400 Heart rate 51 /min Maxwell Akiko DO Work Phone: [facility] 11-23-2023 09:48-0400 SaO2% (BldA) [Mass fraction] 98 % Maxwell Akiko DO Work Phone: [facility] 11-23-2023 09:48-0400 Systolic blood pressure 112 mm[Hg] Maxwell Akiko DO Work Phone: [facility] 10-21-2023 10:25-0400 Body height 182.9 cm Jared Robertson MD Work Phone: [facility] 10-21-2023 10:25-0400 Body mass index (BMI) [Ratio] 23.06 kg/m2 Jared Robertson MD Work Phone: [facility] 10-21-2023 10:25-0400 Body weight 77.11 kg Jared Robertson MD Work Phone: [facility] 10-21-2023 10:25-0400 Diastolic blood pressure 68 mm[Hg] Jared Robertson MD Work Phone: [facility] 10-21-2023 10:25-0400 Heart rate 51 /min Jared Robertson MD Work Phone: [facility] 10-21-2023 10:25-0400 Systolic blood pressure 115 mm[Hg] Jared Robertson MD Work Phone: [facility] 10-07-2023 08:32-0400 Body mass index (BMI) [Ratio] 22.51 kg/m2 Korina Aguilar APRN.MATTRESS FINISHER Work Phone: [facility] 10-07-2023 08:32-0400 Body weight 75.3 kg Korina Aguilar APRN.MATTRESS FINISHER Work Phone: [facility] 10-07-2023 08:32-0400 Diastolic blood pressure 65 mm[Hg] Korina Aguilar APRN.MATTRESS FINISHER Work Phone: [facility] 10-07-2023 08:32-0400 Heart rate 86 /min Korina Aguilar APRN.MATTRESS FINISHER Work Phone: [facility] 10-07-2023 08:32-0400 Respiratory rate 14 /min Korina Aguilar APRN.MATTRESS FINISHER Work Phone: [facility] 10-07-2023 08:32-0400 Systolic blood pressure 99 mm[Hg] Korina Aguilar APRN.MATTRESS FINISHER Work Phone: [facility] 09-21-2023 11:35-0400 Diastolic blood pressure 68 mm[Hg] Treatment Wstr Work Phone: [facility] 09-21-2023 11:35-0400 Heart rate 46 /min Treatment Wstr Work Phone: [facility] 09-21-2023 11:35-0400 SaO2% (BldA) [Mass fraction] 98 % Treatment Wstr Work Phone: [facility] 09-21-2023 11:35-0400 Systolic blood pressure 113 mm[Hg] Treatment Wstr Work Phone: [facility] 09-21-2023 07:55-0400 Body mass index (BMI) [Ratio] 23.06 kg/m2 Treatment Wstr Work Phone: [facility] 09-21-2023 07:55-0400 Body temperature 98.01 [degF] Treatment Wstr Work Phone: [facility] 09-21-2023 07:55-0400 Body weight 77.11 kg Treatment Wstr Work Phone: [facility] 09-21-2023 07:55-0400 Respiratory rate 16 /min Treatment Wstr Work Phone: [facility] 08-23-2023 11:05-0400 Body height 182.9 cm Maxwell Akiko DO Work Phone: [facility] 08-23-2023 11:05-0400 Body mass index (BMI) [Ratio] 23.14 kg/m2 Maxwell Akiko DO Work Phone: [facility] 08-23-2023 11:05-0400 Body weight 77.4 kg Maxwell Akiko DO Work Phone: [facility] 08-23-2023 11:05-0400 Diastolic blood pressure 66 mm[Hg] Maxwell Akiko DO Work Phone: [facility] 08-23-2023 11:05-0400 Heart rate 51 /min Maxwell Akiko DO Work Phone: [facility] 08-23-2023 11:05-0400 SaO2% (BldA) [Mass fraction] 98 % Maxwell Akiko DO Work Phone: [facility] 08-23-2023 11:05-0400 Systolic blood pressure 130 mm[Hg] Maxwell Akiko DO Work Phone: [facility] 07-29-2023 11:01-0400 Body height 182.9 cm Suzette Aguilar MD Work Phone: [facility] 07-29-2023 11:01-0400 Body mass index (BMI) [Ratio] 22.89 kg/m2 Suzette Aguilar MD Work Phone: [facility] 07-29-2023 11:01-0400 Body temperature 97.7 [degF] Suzette Aguilar MD Work Phone: [facility] 07-29-2023 11:01-0400 Body weight 76.57 kg Suzette Aguilar MD Work Phone: [facility] 07-29-2023 11:01-0400 Diastolic blood pressure 71 mm[Hg] Suzette Aguilar MD Work Phone: [facility] 07-29-2023 11:01-0400 Heart rate 58 /min Suzette Aguilar MD Work Phone: [facility] 07-29-2023 11:01-0400 Respiratory rate 16 /min Suzette Aguilar MD Work Phone: [facility] 07-29-2023 11:01-0400 SaO2% (BldA) [Mass fraction] 98 % Suzette Aguilar MD Work Phone: [facility] 07-29-2023 11:01-0400 Systolic blood pressure 152 mm[Hg] Suzette Aguilar MD Work Phone: [facility] 07-09-2023 13:52-0400 Body height 182.9 cm Jared Robertson MD Work Phone: [facility] 07-09-2023 13:52-0400 Body mass index (BMI) [Ratio] 23.73 kg/m2 Jared Robertson MD Work Phone: [facility] 07-09-2023 13:52-0400 Body weight 79.38 kg Jared Robertson MD Work Phone: [facility] 07-09-2023 13:52-0400 Diastolic blood pressure 70 mm[Hg] Jared Robertson MD Work Phone: [facility] 07-09-2023 13:52-0400 Heart rate 70 /min Jared Robertson MD Work Phone: [facility] 07-09-2023 13:52-0400 Respiratory rate 16 /min Jared Robertson MD Work Phone: [facility] 07-09-2023 13:52-0400 Systolic blood pressure 112 mm[Hg] Jared Robertson MD Work Phone: [facility] 07-08-2023 11:08-0400 Body mass index (BMI) [Ratio] 23.73 kg/m2 Ines Doe MD Work Phone: [facility] 07-08-2023 11:08-0400 Body temperature 97.59 [degF] Ines Doe MD Work Phone: [facility] 07-08-2023 11:08-0400 Body weight 79.38 kg Ines Doe MD Work Phone: [facility] 07-08-2023 11:08-0400 Diastolic blood pressure 78 mm[Hg] Ines Doe MD Work Phone: [facility] 07-08-2023 11:08-0400 Heart rate 76 /min Ines Doe MD Work Phone: [facility] 07-08-2023 11:08-0400 Respiratory rate 18 /min Ines Doe MD Work Phone: [facility] 07-08-2023 11:08-0400 SaO2% (BldA) [Mass fraction] 99 % Ines Doe MD Work Phone: [facility] 07-08-2023 11:08-0400 Systolic blood pressure 131 mm[Hg] Ines Doe MD Work Phone: [facility] 07-02-2023 11:25-0400 Body mass index (BMI) [Ratio] 23.73 kg/m2 Jared Robertson MD Work Phone: [facility] 07-02-2023 11:25-0400 Body temperature 96.8 [degF] Jared Robertson MD Work Phone: [facility] 07-02-2023 11:25-0400 Body weight 79.38 kg Jared Robertson MD Work Phone: [facility] 07-02-2023 11:25-0400 Diastolic blood pressure 80 mm[Hg] Jared Robertson MD Work Phone: [facility] 07-02-2023 11:25-0400 Heart rate 60 /min Jared Robertson MD Work Phone: [facility] 07-02-2023 11:25-0400 Respiratory rate 16 /min Jared Robertson MD Work Phone: [facility] 07-02-2023 11:25-0400 Systolic blood pressure 128 mm[Hg] Jared Robertson MD Work Phone: [facility] 06-29-2023 09:18-0400 Body height 182.9 cm Matthew Servin MD Work Phone: [facility] 06-29-2023 09:18-0400 Body mass index (BMI) [Ratio] 23.73 kg/m2 Matthew Servin MD Work Phone: [facility] 06-29-2023 09:18-0400 Body weight 79.38 kg Matthew Servin MD Work Phone: [facility] 06-29-2023 09:18-0400 Diastolic blood pressure 73 mm[Hg] Matthew Servin MD Work Phone: [facility] 06-29-2023 09:18-0400 Heart rate 61 /min Matthew Servin MD Work Phone: [facility] 06-29-2023 09:18-0400 SaO2% (BldA) [Mass fraction] 98 % Matthew Servin MD Work Phone: [facility] 06-29-2023 09:18-0400 Systolic blood pressure 114 mm[Hg] Matthew Servin MD Work Phone: [facility] 06-28-2023 14:27-0400 Body mass index (BMI) [Ratio] 23.41 kg/m2 Jared Robertson MD Work Phone: [facility] 06-28-2023 14:27-0400 Body temperature 97.3 [degF] Jared Robertson MD Work Phone: [facility] 06-28-2023 14:27-0400 Body weight 79.38 kg Jared Robertson MD Work Phone: [facility] 06-28-2023 14:27-0400 Diastolic blood pressure 72 mm[Hg] Jared Robertson MD Work Phone: [facility] 06-28-2023 14:27-0400 Heart rate 64 /min Jared Robertson MD Work Phone: [facility] 06-28-2023 14:27-0400 Respiratory rate 16 /min Jared Robertson MD Work Phone: [facility] 06-28-2023 14:27-0400 Systolic blood pressure 128 mm[Hg] Jared Robertson MD Work Phone: [facility] 06-24-2023 10:47-0400 Body height 184.2 cm Jared Robertson MD Work Phone: [facility] 06-24-2023 10:47-0400 Body mass index (BMI) [Ratio] 23.41 kg/m2 Jared Robertson MD Work Phone: [facility] 06-24-2023 10:47-0400 Body weight 79.38 kg Jared Robertson MD Work Phone: [facility] 06-24-2023 10:47-0400 Diastolic blood pressure 75 mm[Hg] Jared Robertson MD Work Phone: [facility] 06-24-2023 10:47-0400 Heart rate 75 /min Jared Robertson MD Work Phone: [facility] 06-24-2023 10:47-0400 Systolic blood pressure 119 mm[Hg] Jared Robertson MD Work Phone: [facility] 06-20-2023 17:22-0400 Body temperature 98 [degF] Dr. Jared Robertson Work Phone: [facility] 06-20-2023 17:22-0400 Diastolic blood pressure 63 mm[Hg] Dr. Jared Robertson Work Phone: 6(792)334-817014 [place] [address] 06-20-2023 17:22-0400 Heart rate 72 /min Dr. Jared Robertson Work Phone: 5(633)345-018314 [place] [address] 06-20-2023 17:22-0400 Respiratory rate 15 /min Dr. Jared Robertson Work Phone: 2(428)844-462614 [place] [address] 06-20-2023 17:22-0400 SaO2% (BldA) [Mass fraction] 100 % Dr. Jared Robertson Work Phone: 4(074)895-386914 [place] [address] 06-20-2023 17:22-0400 Systolic blood pressure 127 mm[Hg] Dr. Jared Robertson Work Phone: 4(008)024-249414 [place] [address] 06-20-2023 16:42-0400 Body height 180.[address] Jared Robertson Work Phone: 4(430)812-001114 [place] [address] 06-20-2023 16:42-0400 Body mass index (BMI) [Ratio] 24.8 kg/m2 Dr. Jared Robertson Work Phone: 6(716)715-192614 [place] [address] 06-20-2023 16:42-0400 Body weight 80.[address] Jared Robertson Work Phone: 3(504)775-928114 [place] [address] 06-17-2023 08:45-0400 Body temperature 96.9 [degF] Dr. Jared Robertson Work Phone: 5(920)052-495914 [place] [address] 06-17-2023 08:45-0400 Diastolic blood pressure 58 mm[Hg] Dr. Jared Robertson Work Phone: 1(528)957-421314 [place] [address] 06-17-2023 08:45-0400 Heart rate 48 /min Dr. Jared Robertson Work Phone: 7(533)921-118214 [place] [address] 06-17-2023 08:45-0400 Respiratory rate 16 /min Dr. Jared Robertson Work Phone: 4(447)588-096014 [place] [address] 06-17-2023 08:45-0400 SaO2% (BldA) [Mass fraction] 98 % Dr. Jared Robertson Work Phone: [facility] 06-17-2023 08:45-0400 Systolic blood pressure 109 mm[Hg] Dr. Jared Robertson Work Phone: [facility] 06-17-2023 08:30-0400 Inhaled oxygen flow rate 3 L/min Dr. Jared Robertson Work Phone: [facility] 06-17-2023 06:39-0400 Body height 180.[address] Jared Robertson Work Phone: [facility] 06-17-2023 06:39-0400 Body mass index (BMI) [Ratio] 24.3 kg/m2 Dr. Jared Robertson Work Phone: [facility] 06-17-2023 06:39-0400 Body weight [address] Jared Robertson Work Phone: [facility] 05-26-2023 16:56-0400 Body weight 79.38 kg Mimi Vicker PA-C Work Phone: [facility] 05-26-2023 16:56-0400 Diastolic blood pressure 68 mm[Hg] Mimi Vicker PA-C Work Phone: [facility] 05-26-2023 16:56-0400 Heart rate 52 /min Mimi Queener PA-C Work Phone: [facility] 05-26-2023 16:56-0400 Respiratory rate 16 /min Mimi Queener PA-C Work Phone: [facility] 05-26-2023 16:56-0400 SaO2% (BldA) [Mass fraction] 100 % Mimi Vicker PA-C Work Phone: [facility] 05-26-2023 16:56-0400 Systolic blood pressure 114 mm[Hg] Mimi Vicker PA-C Work Phone: [facility] 04-21-2023 09:36-0500 Diastolic blood pressure 57 mm[Hg] Treatment Wstr Work Phone: [facility] 04-21-2023 09:36-0500 Heart rate 48 /min Treatment Wstr Work Phone: [facility] 04-21-2023 09:36-0500 Systolic blood pressure 111 mm[Hg] Treatment Wstr Work Phone: [facility] 04-21-2023 07:55-0500 Body temperature 97.3 [degF] Treatment Wstr Work Phone: [facility] 04-21-2023 07:55-0500 Body weight 79.38 kg Treatment Wstr Work Phone: [facility] 04-21-2023 07:55-0500 SaO2% (BldA) [Mass fraction] 100 % Treatment Wstr Work Phone: [facility] 04-14-2023 17:13-0500 Body height 184.2 cm Jared Robertson MD Work Phone: [facility] 04-14-2023 17:13-0500 Body weight 79.38 kg Jared Robertson MD Work Phone: [facility] 04-14-2023 17:13-0500 Diastolic blood pressure 74 mm[Hg] Jared Robertson MD Work Phone: [facility] 04-14-2023 17:13-0500 Heart rate 60 /min Jared Robertson MD Work Phone: [facility] 04-14-2023 17:13-0500 Respiratory rate 16 /min Jared Robertson MD Work Phone: [facility] 04-14-2023 17:13-0500 Systolic blood pressure 134 mm[Hg] Jared Robertson MD Work Phone: [facility] 04-06-2023 12:34-0500 Diastolic blood pressure 57 mm[Hg] Treatment Wstr Work Phone: [facility] 04-06-2023 12:34-0500 Heart rate 55 /min Treatment Wstr Work Phone: [facility] 04-06-2023 12:34-0500 Systolic blood pressure 116 mm[Hg] Treatment Wstr Work Phone: [facility] 04-06-2023 08:19-0500 Body temperature 97.59 [degF] Treatment Wstr Work Phone: [facility] 04-06-2023 08:19-0500 Body weight 79.61 kg Treatment Wstr Work Phone: [facility] 04-06-2023 08:19-0500 Respiratory rate 16 /min Treatment Wstr Work Phone: [facility] 04-06-2023 08:19-0500 SaO2% (BldA) [Mass fraction] 98 % Treatment Wstr Work Phone: [facility] 03-01-2023 13:35-0500 Body temperature 98 [degF] Dr. Jared Robertson Work Phone: [facility] 03-01-2023 13:35-0500 Body weight 81.[address] Jared Robertson Work Phone: [facility] 03-01-2023 13:35-0500 Diastolic blood pressure 75 mm[Hg] Dr. Jared Robertson Work Phone: [facility] 03-01-2023 13:35-0500 Heart rate 58 /min Dr. Jared Robertson Work Phone: [facility] 03-01-2023 13:35-0500 Respiratory rate 16 /min Dr. Jared Robertson Work Phone: [facility] 03-01-2023 13:35-0500 SaO2% (BldA) [Mass fraction] 99 % Dr. Jared Robertson Work Phone: [facility] 03-01-2023 13:35-0500 Systolic blood pressure 142 mm[Hg] Dr. Jared Robertson Work Phone: [facility] 01-21-2023 11:36-0500 Body height 182.9 cm Suzette Aguilar MD Work Phone: [facility] 01-21-2023 11:36-0500 Body mass index (BMI) [Ratio] 24.02 kg/m2 Suzette Aguilar MD Work Phone: [facility] 01-21-2023 11:36-0500 Body temperature 97.3 [degF] Suzette Aguilar MD Work Phone: [facility] 01-21-2023 11:36-0500 Body weight 80.33 kg Suzette Aguilar MD Work Phone: [facility] 01-21-2023 11:36-0500 Diastolic blood pressure 70 mm[Hg] Suzette Aguilar MD Work Phone: [facility] 01-21-2023 11:36-0500 Heart rate 46 /min Suzette Aguilar MD Work Phone: [facility] 01-21-2023 11:36-0500 Respiratory rate 16 /min Suzette Aguilar MD Work Phone: [facility] 01-21-2023 11:36-0500 SaO2% (BldA) [Mass fraction] 98 % Suzette Aguilar MD Work Phone: [facility] 01-21-2023 11:36-0500 Systolic blood pressure 148 mm[Hg] Suzette Aguilar MD Work Phone: [facility] 01-09-2023 10:52-0500 Body weight 80.6 kg Kevin Copeland MD Work Phone: [facility] 01-09-2023 10:52-0500 Diastolic blood pressure 60 mm[Hg] Kevin Copeland MD Work Phone: [facility] 01-09-2023 10:52-0500 Heart rate 62 /min Kevin Copeland MD Work Phone: [facility] 01-09-2023 10:52-0500 Respiratory rate 16 /min Kevin Copeland MD Work Phone: [facility] 01-09-2023 10:52-0500 SaO2% (BldA) [Mass fraction] 97 % Kevin Copeland MD Work Phone: [facility] 01-09-2023 10:52-0500 Systolic blood pressure 120 mm[Hg] Kevin Copeland MD Work Phone: [facility] 10-27-2022 13:25-0400 Body temperature 97.39 [degF] Tanisha Garcia PA-C Work Phone: [facility] 10-27-2022 13:25-0400 Body weight 80.29 kg Tanisha Garcia PA-C Work Phone: [facility] 10-27-2022 13:25-0400 Diastolic blood pressure 66 mm[Hg] Tanisha Garcia PA-C Work Phone: [facility] 10-27-2022 13:25-0400 Heart rate 57 /min Tanisha Garcia PA-C Work Phone: [facility] 10-27-2022 13:25-0400 Respiratory rate 16 /min Tanisha Garcia PA-C Work Phone: [facility] 10-27-2022 13:25-0400 SaO2% (BldA) [Mass fraction] 98 % Tanisha Garcia PA-C Work Phone: [facility] 10-27-2022 13:25-0400 Systolic blood pressure 100 mm[Hg] Tanisha Garcia PA-C Work Phone: [facility] 10-05-2022 15:12-0400 Body weight 79.83 kg Korina Aguilar APRN.MATTRESS FINISHER [facility] [facility] 10-05-2022 15:12-0400 Diastolic blood pressure 82 mm[Hg] Korina Aguilar APRN.MATTRESS FINISHER Work Phone: [facility] 10-05-2022 15:12-0400 Heart rate 58 /min Korina Aguilar APRN.MATTRESS FINISHER Work Phone: [facility] 10-05-2022 15:12-0400 Respiratory rate 16 /min Korina Aguilar APRN.MATTRESS FINISHER Work Phone: [facility] 10-05-2022 15:12-0400 Systolic blood pressure 134 mm[Hg] Korina Aguilar APRN.MATTRESS FINISHER Work Phone: [facility] 09-01-2022 14:56-0400 Body temperature 97.8 [degF] Dr. Jared Robertson Work Phone: 8(884)111-004433 [place] [address] 09-01-2022 14:56-0400 Diastolic blood pressure 66 mm[Hg] Dr. Jared Robertson Work Phone: 3(389)704-629533 [place] [address] 09-01-2022 14:56-0400 Heart rate 63 /min Dr. Jared Robertson Work Phone: 6(455)495-805733 [place] [address] 09-01-2022 14:56-0400 Respiratory rate 16 /min Dr. Jared Robertson Work Phone: 6(684)559-102133 [place] [address] 09-01-2022 14:56-0400 SaO2% (BldA) [Mass fraction] 100 % Dr. Jared Robertson Work Phone: 0(068)309-636033 [place] [address] 09-01-2022 14:56-0400 Systolic blood pressure 102 mm[Hg] Dr. Jared Robertson Work Phone: 8(565)086-149933 [place] [address] 09-01-2022 01:08-0400 Body mass index (BMI) [Ratio] 24.2 kg/m2 Dr. Jared Robertson Work Phone: 6(028)975-862433 [place] [address] 08-31-2022 15:27-0400 Body height 182.[address] Jared Robertson Work Phone: 9(220)064-818633 [place] [address] 08-31-2022 15:27-0400 Body weight 79.[address] Jared Robertson Work Phone: 9(119)447-743533 [place] [address] 08-31-2022 14:20-0400 Body temperature 98 [degF] Dr. Jared Robertson Work Phone: [facility] 08-31-2022 14:20-0400 Diastolic blood pressure 71 mm[Hg] Dr. Jared Robertson Work Phone: [facility] 08-31-2022 14:20-0400 Heart rate 58 /min Dr. Jared Robertson Work Phone: [facility] 08-31-2022 14:20-0400 Respiratory rate 17 /min Dr. Jared Robertson Work Phone: [facility] 08-31-2022 14:20-0400 SaO2% (BldA) [Mass fraction] 96 % Dr. Jared Robertson Work Phone: [facility] 08-31-2022 14:20-0400 Systolic blood pressure 154 mm[Hg] Dr. Jared Robertson Work Phone: 5(973)290-661714 [place] [address] 08-31-2022 11:48-0400 Body height 182.[address] Jared Robertson Work Phone: 5(877)105-958114 [place] [address] 08-31-2022 11:48-0400 Body mass index (BMI) [Ratio] 24.2 kg/m2 Dr. Jared Robertson Work Phone: [facility] 08-31-2022 11:48-0400 Body weight 80.[address] Jared Robertson Work Phone: 0(521)816-910933 [place] [address] 08-31-2022 11:02-0400 Body temperature 97 [degF] Sabi Athy PA-C Work Phone: [facility] 08-31-2022 11:02-0400 Body weight 81.01 kg Sabi Athy PA-C Work Phone: [facility] 08-31-2022 11:02-0400 Diastolic blood pressure 80 mm[Hg] Sabi Athy PA-C Work Phone: [facility] 08-31-2022 11:02-0400 Heart rate 60 /min Sabi Athy PA-C Work Phone: [facility] 08-31-2022 11:02-0400 Respiratory rate 20 /min Sabimarisa Mustafarj PA-C Work Phone: [facility] 08-31-2022 11:02-0400 SaO2% (BldA) [Mass fraction] 100 % Sabimarisa Mustafay PA-C Work Phone: [facility] 08-31-2022 11:02-0400 Systolic blood pressure 160 mm[Hg] Sabi To PA-C Work Phone: 5(406)521-632150 [place] [address] 06-16-2022 15:20-0400 Body mass index (BMI) [Ratio] 24.1 kg/m2 Dr. Jared Robertson Work Phone: 8(703)090-517933 [place] [address] 06-16-2022 15:20-0400 Body weight 80.[address] Jared Robertson Work Phone: 5(932)137-056014 [place] [address] 06-16-2022 15:20-0400 Diastolic blood pressure 64 mm[Hg] Dr. Jared Robertson Work Phone: 0(116)987-415233 [place] [address] 06-16-2022 15:20-0400 Heart rate 52 /min Dr. Jared Robertson Work Phone: 9(901)283-860033 [place] [address] 06-16-2022 15:20-0400 SaO2% (BldA) [Mass fraction] 98 % Dr. Jared Robertson Work Phone: 4(414)806-528133 [place] [address] 06-16-2022 15:20-0400 Systolic blood pressure 112 mm[Hg] Dr. Jared Robertson Work Phone: 2(763)269-290233 [place] [address] 06-05-2022 07:20-0400 Body temperature 97.7 [degF] Dr. Jared Robertson Work Phone: 5(044)522-380233 [place] [address] 06-05-2022 07:20-0400 Diastolic blood pressure 68 mm[Hg] Dr. Jared Robertson Work Phone: 8(598)331-796033 [place] [address] 06-05-2022 07:20-0400 Heart rate 57 /min Dr. Jared Robertson Work Phone: 1(948)810-680714 [place] [address] 06-05-2022 07:20-0400 Respiratory rate 14 /min Dr. Jared Robertson Work Phone: [facility] 06-05-2022 07:20-0400 SaO2% (BldA) [Mass fraction] 97 % Dr. Jared Robertson Work Phone: [facility] 06-05-2022 07:20-0400 Systolic blood pressure 120 mm[Hg] Dr. Jared Robertson Work Phone: 2(521)438-888433 [place] [address] 06-05-2022 05:55-0400 Body height 182.[address] Jared Robertson Work Phone: 5(338)926-879533 [place] [address] 06-05-2022 05:55-0400 Body mass index (BMI) [Ratio] 23.4 kg/m2 Dr. Jared Robertson Work Phone: 2(463)222-453733 [place] [address] 06-05-2022 05:55-0400 Body weight 78.[address] Jared Robertson Work Phone: [facility] 04-06-2022 14:52-0500 Body height 181.6 cm Jared Robertson MD Work Phone: [facility] 04-06-2022 14:52-0500 Body weight 80.74 kg Jared Robertson MD Work Phone: [facility] 04-06-2022 14:52-0500 Diastolic blood pressure 74 mm[Hg] Jared Robertson MD Work Phone: [facility] 04-06-2022 14:52-0500 Heart rate 50 /min Jared Robertson MD Work Phone: [facility] 04-06-2022 14:52-0500 Respiratory rate 16 /min Jared Robertson MD Work Phone: [facility] 04-06-2022 14:52-0500 Systolic blood pressure 118 mm[Hg] Jared Robertson MD Work Phone: [facility] 03-23-2022 13:15-0500 Body temperature 97.8 [degF] Dr. Jared Robertson Work Phone: 9(402)701-902714 [place] [address] 03-23-2022 13:15-0500 Diastolic blood pressure 69 mm[Hg] Dr. Jared Robertson Work Phone: 2(255)722-642814 [place] [address] 03-23-2022 13:15-0500 Heart rate 74 /min Dr. Jared Robertson Work Phone: 0(084)357-334914 [place] [address] 03-23-2022 13:15-0500 Respiratory rate 16 /min Dr. Jared Robertson Work Phone: 1(525)956-353314 [place] [address] 03-23-2022 13:15-0500 SaO2% (BldA) [Mass fraction] 90 % Dr. Jared Robertson Work Phone: 5(676)009-598314 [place] [address] 03-23-2022 13:15-0500 Systolic blood pressure 139 mm[Hg] Dr. Jared Robertson Work Phone: 0(009)666-959914 [place] [address] 03-23-2022 11:45-0500 Inhaled oxygen flow rate 2 L/min Dr. Jared Robertson Work Phone: 4(590)934-632214 [place] [address] 03-23-2022 06:35-0500 Body height 187.[address] Jared Robertson Work Phone: 0(514)976-257614 [place] [address] 03-23-2022 06:35-0500 Body mass index (BMI) [Ratio] 23.6 kg/m2 Dr. Jared Robertson Work Phone: 5(500)059-911614 [place] [address] 03-23-2022 06:35-0500 Body weight 83.[address] Jared Robertson Work Phone: 0(790)774-167714 [place] [address] 02-19-2022 14:37-0500 Body temperature 97.8 [degF] Dr. Jared Robertson Work Phone: 1(740)342-624914 [place] [address] 02-19-2022 14:37-0500 Diastolic blood pressure 84 mm[Hg] Dr. Jared Robertson Work Phone: 4(302)161-908114 [place] [address] 02-19-2022 14:37-0500 Heart rate 68 /min Dr. Jared Robertson Work Phone: [facility] 02-19-2022 14:37-0500 Respiratory rate 17 /min Dr. Jared Robertson Work Phone: [facility] 02-19-2022 14:37-0500 SaO2% (BldA) [Mass fraction] 97 % Dr. Jared Robertson Work Phone: [facility] 02-19-2022 14:37-0500 Systolic blood pressure 129 mm[Hg] Dr. Jared Robertson Work Phone: [facility] 01-30-2022 10:22-0500 Body height 185.4 cm Suzette Aguilar MD Work Phone: [facility] 01-30-2022 10:22-0500 Body mass index (BMI) [Ratio] 24.26 kg/m2 Suzette Aguilar MD Work Phone: [facility] 01-30-2022 10:22-0500 Body temperature 97.59 [degF] Suzette Aguilar MD Work Phone: [facility] 01-30-2022 10:22-0500 Body weight 83.42 kg Suzette Aguilar MD Work Phone: [facility] 01-30-2022 10:22-0500 Diastolic blood pressure 75 mm[Hg] Suzette Aguilar MD Work Phone: [facility] 01-30-2022 10:22-0500 Heart rate 60 /min Suzette Aguilar MD Work Phone: [facility] 01-30-2022 10:22-0500 Respiratory rate 18 /min Suzette Aguilar MD Work Phone: [facility] 01-30-2022 10:22-0500 SaO2% (BldA) [Mass fraction] 96 % Suzette Aguilar MD Work Phone: [facility] 01-30-2022 10:22-0500 Systolic blood pressure 144 mm[Hg] Suzette Aguilar MD Work Phone: [facility] 01-22-2022 12:53-0500 Body temperature 97.2 [degF] Dr. Jared Robertson Work Phone: [facility] 01-22-2022 12:53-0500 Diastolic blood pressure 91 mm[Hg] Dr. Jared Robertson Work Phone: [facility] 01-22-2022 12:53-0500 Heart rate 74 /min Dr. Jared Robertson Work Phone: [facility] 01-22-2022 12:53-0500 Respiratory rate 18 /min Dr. Jared Robertson Work Phone: [facility] 01-22-2022 12:53-0500 Systolic blood pressure 146 mm[Hg] Dr. Jared Robertson Work Phone: [facility] 01-15-2022 14:32-0500 Body height 185.[address] Jared Robertson Work Phone: [facility] Work Phone: 01-15-2022 14:32-0500 Body mass index (BMI) [Ratio] 24.1 kg/m2 Dr. Jared Robertson Work Phone: [facility] 01-15-2022 14:32-0500 Body temperature 97.2 [degF] Dr. Jared Robertson Work Phone: [facility] 01-15-2022 14:32-0500 Body weight 83.[address] Jared Robertson Work Phone: [facility] 01-15-2022 14:32-0500 Diastolic blood pressure 76 mm[Hg] Dr. Jared Robertson Work Phone: [facility] 01-15-2022 14:32-0500 Heart rate 60 /min Dr. Jared Robertson Work Phone: [facility] 01-15-2022 14:32-0500 Respiratory rate 18 /min Dr. Jared Robertson Work Phone: [facility] 01-15-2022 14:32-0500 SaO2% (BldA) [Mass fraction] 98 % Dr. Jared Robertson Work Phone: [facility] 01-15-2022 14:32-0500 Systolic blood pressure 146 mm[Hg] Dr. Jared Robertson Work Phone: [facility] 12-09-2021 08:17-0400 Body weight 83.46 kg Tata Porter DO Work Phone: [facility] 12-09-2021 08:17-0400 Diastolic blood pressure 65 mm[Hg] Tata Porter DO Work Phone: [facility] 12-09-2021 08:17-0400 Heart rate 52 /min Tata Porter DO Work Phone: [facility] 12-09-2021 08:17-0400 SaO2% (BldA) [Mass fraction] 99 % Tata Porter DO Work Phone: [facility] 12-09-2021 08:17-0400 Systolic blood pressure 111 mm[Hg] Tata Porter DO Work Phone: [facility] 11-25-2021 07:35-0400 Body temperature 98 [degF] Dr. Jared Robertson Work Phone: [facility] 11-25-2021 07:35-0400 Diastolic blood pressure 69 mm[Hg] Dr. Jared Robertson Work Phone: [facility] 11-25-2021 07:35-0400 Heart rate 59 /min Dr. Jared Robertson Work Phone: [facility] 11-25-2021 07:35-0400 Respiratory rate 16 /min Dr. Jared Robertson Work Phone: [facility] 11-25-2021 07:35-0400 SaO2% (BldA) [Mass fraction] 97 % Dr. Jared Robertson Work Phone: [facility] 11-25-2021 07:35-0400 Systolic blood pressure 119 mm[Hg] Dr. Jared Robertson Work Phone: [facility] 11-25-2021 05:52-0400 Body height 182.[address] Jared Robertson Work Phone: [facility] Work Phone: 11-25-2021 05:52-0400 Body mass index (BMI) [Ratio] 24.5 kg/m2 Dr. Jared Robertson Work Phone: [facility] 11-25-2021 05:52-0400 Body weight 82.[address] Jared Robertson Work Phone: [facility] 09-26-2021 13:36-0400 Body temperature 98.4 [degF] Tanisha Garcia PA-C Work Phone: [facility] 09-26-2021 13:36-0400 Body weight 81.19 kg Tanisha Garcia PA-C Work Phone: [facility] 09-26-2021 13:36-0400 Diastolic blood pressure 60 mm[Hg] Tanisha Garcia PA-C Work Phone: [facility] 09-26-2021 13:36-0400 Heart rate 60 /min Tanisha Garcia PA-C Work Phone: [facility] 09-26-2021 13:36-0400 Respiratory rate 18 /min Tanisha Garcia PA-C Work Phone: [facility] 09-26-2021 13:36-0400 Systolic blood pressure 100 mm[Hg] Tanisha Garcia PA-C Work Phone: [facility] 08-11-2021 14:41-0400 Body weight 82.56 kg CORNELL Archer PA-C Work Phone: [facility] 08-11-2021 14:41-0400 Diastolic blood pressure 68 mm[Hg] NA Archer PA-C Work Phone: [facility] 08-11-2021 14:41-0400 Heart rate 65 /min NA Archer PA-C Work Phone: [facility] 08-11-2021 14:41-0400 Respiratory rate 16 /min NA Archer PA-C Work Phone: [facility] 08-11-2021 14:41-0400 SaO2% (BldA) [Mass fraction] 98 % NA Archer PA-C Work Phone: [facility] 08-11-2021 14:41-0400 Systolic blood pressure 126 mm[Hg] NA Archer PA-C Work Phone: [facility] 08-05-2021 13:00-0400 Body temperature 97.8 [degF] Dr. Jared Robertson Work Phone: [facility] Work Phone: 08-05-2021 13:00-0400 Diastolic blood pressure 73 mm[Hg] Dr. Jared Robertson Work Phone: [facility] Work Phone: 08-05-2021 13:00-0400 Heart rate 52 /min Dr. Jared Robertson Work Phone: [facility] Work Phone: 08-05-2021 13:00-0400 Respiratory rate 18 /min Dr. Jared Robertson Work Phone: [facility] Work Phone: 08-05-2021 13:00-0400 SaO2% (BldA) [Mass fraction] 96 % Dr. Jared Robertson Work Phone: [facility] Work Phone: 08-05-2021 13:00-0400 Systolic blood pressure 128 mm[Hg] Dr. Jared Robertson Work Phone: [facility] Work Phone: 08-05-2021 00:02-0400 Body height 182.[address] Jared Robertson Work Phone: [facility] Work Phone: 08-05-2021 00:02-0400 Body mass index (BMI) [Ratio] 24.5 kg/m2 Dr. Jared Robertson Work Phone: [facility] Work Phone: 08-05-2021 00:02-0400 Body weight 82.[address] Jared Robertson Work Phone: [facility] Work Phone: 08-04-2021 23:55-0400 Body temperature 98.4 [degF] Dr. Jared Robertson Work Phone: [facility] Work Phone: 08-04-2021 23:55-0400 Diastolic blood pressure 64 mm[Hg] Dr. Jared Robertson Work Phone: [facility] Work Phone: 08-04-2021 23:55-0400 Heart rate 58 /min Dr. Jared Robertson Work Phone: [facility] Work Phone: 08-04-2021 23:55-0400 Respiratory rate 17 /min Dr. Jared Robertson Work Phone: [facility] Work Phone: 08-04-2021 23:55-0400 SaO2% (BldA) [Mass fraction] 99 % Dr. Jared Robertson Work Phone: [facility] Work Phone: 08-04-2021 23:55-0400 Systolic blood pressure 150 mm[Hg] Dr. Jared Robertson Work Phone: [facility] Work Phone: 08-04-2021 21:08-0400 Body height 185.[address] Jared Robertson Work Phone: [facility] Work Phone: 08-04-2021 21:08-0400 Body mass index (BMI) [Ratio] 24.7 kg/m2 Dr. Jared Robertson Work Phone: [facility] Work Phone: 08-04-2021 21:08-0400 Body weight 85.[address] Jared Robertson Work Phone: [facility] Work Phone: 08-01-2021 09:15-0400 Body height 185.4 cm Gai Retana PA-C Work Phone: [facility] 08-01-2021 09:15-0400 Body mass index (BMI) [Ratio] 24.39 kg/m2 Gai Retana PA-C Work Phone: [facility] 08-01-2021 09:15-0400 Body temperature 97.39 [degF] Gai Retana PA-C Work Phone: [facility] 08-01-2021 09:15-0400 Body weight 83.87 kg Gai Retana PA-C Work Phone: [facility] 08-01-2021 09:15-0400 Diastolic blood pressure 63 mm[Hg] Gai Retana PA-C Work Phone: [facility] 08-01-2021 09:15-0400 Heart rate 52 /min Gai Retana PA-C Work Phone: [facility] 08-01-2021 09:15-0400 Respiratory rate 16 /min Gai Retana PA-C Work Phone: [facility] 08-01-2021 09:15-0400 SaO2% (BldA) [Mass fraction] 97 % Gai Retana PA-C Work Phone: [facility] 08-01-2021 09:15-0400 Systolic blood pressure 136 mm[Hg] Esdras Retana PA-C Work Phone: [facility] 09-12-2020 13:36-0400 Body mass index (BMI) [Ratio] 24.12 kg/m2 Suzette Aguilar MD Work Phone: [facility] 09-12-2020 13:36-0400 Body temperature 97.81 [degF] Suzette Aguilar MD Work Phone: [facility] 09-12-2020 13:36-0400 Body weight 82.92 kg Suzette Aguilar MD Work Phone: [facility] 09-12-2020 13:36-0400 Diastolic blood pressure 65 mm[Hg] Suzette Aguilar MD Work Phone: [facility] 09-12-2020 13:36-0400 Heart rate 50 /min Suzette Aguilar MD Work Phone: [facility] 09-12-2020 13:36-0400 Respiratory rate 14 /min Suzette Aguilar MD Work Phone: [facility] 09-12-2020 13:36-0400 SaO2% (BldA) [Mass fraction] 98 % Suzette Aguilar MD Work Phone: [facility] 09-12-2020 13:36-0400 Systolic blood pressure 143 mm[Hg] Suzette Aguilar MD Work Phone: [facility] Encounters Encounter Date Encounter Type Care Provider Facility Start: 10-19-2024 End: 10-19-2024 Patient encounter procedure Katherine Hernández DO Work Phone: [facility] (ENT) Comment on above: Voice complaint Start: 10-19-2024 End: 10-19-2024 ambulatory KATHERINE HERNÁNDEZ Facility:[facility] Start: 10-11-2024 End: 10-11-2024 Chart abstracting Jared Robertson MD Work Phone: [facility] [place] Comment on above: Abstract (GI OV) Start: 09-14-2024 End: 09-15-2024 Follow-up encounter Jared Robertson MD Work Phone: [facility] [place] Start: 09-14-2024 End: 09-14-2024 ambulatory JARED ROBERTSON Facility:[facility] Start: 09-14-2024 End: 09-14-2024 Subsequent hospital visit by physician [facility] Cat Scan Comment on above: LUQ pain [R10.12] Start: 09-12-2024 End: 09-12-2024 Follow-up encounter Jared Robertson MD Work Phone: [facility] [place] Start: 09-07-2024 ambulatory JARED ROBERTSON Facili ty:[facility] Start: 09-07-2024 End: 09-07-2024 Subsequent hospital visit by physician [facility] Work Phone: Radiology Comment on above: LUQ pain [R10.12] Start: 08-30-2024 End: 08-30-2024 Patient encounter procedure Jared Robertson MD Work Phone: [facility] Comment on above: Medicare annual well ness visit, subsequent (Primary Dx); Mixed hyperlipidemia; Elevated fasting blood sugar; GERD without esophagitis; Chronic bronchitis, unspecified chronic bronchitis type (HCC); Bilateral carotid artery stenosis; Abdominal aortic aneurysm (AAA) without rupture, unspecified part; Anemia, unspecified type; 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; Neuropathy associated with anti-MAG antibody; Neuropathy with IgM monoclonal gammopathy (HCC); Waldenstrom's macroglobulinemia (HCC); Thrombocytopenia; Malignant lymphoplasmacytic lymphoma (HCC); Subclavian artery stenosis, right; 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; Primary insomnia; Benign non-nodular prostatic hyperplasia without lower urinary tract symptoms; Erectile dysfunction, unspecified erectile dysfunction type; Essential tremor; Advance directive discussed with patient; Hoarse voice quality; Diarrhea, unspecified type; Encounter for screening examination for other mental health and behavioral disorders; Screening for depression; LUQ pain Start: 08-30-2024 End: 08-30-2024 ambulatory SELF Facility:[facility] Start: 08-22-2024 End: 08-22-2024 ambulatory Treatment Rm 1 Juma [facility] Work Phone: Hematology/Oncology Comment on above: Waldenstrom's macrog lobulinemia (HCC) (Primary Dx); Neuropathy associated with anti-MAG antibody Start: 08-16-2024 End: 08-16-2024 ambulatory JARED ROBERTSON Facility:[facility] Start: 07-18-2024 End: 07-18-2024 ambulatory MAXWELL WHARTON Facility:[facility] Start: 07-17-2024 End: 07-17-2024 Patient encounter procedure Maxwell Wharton DO Work Phone: Neurology Comment on above: 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); Neuropathy with IgM monoclonal gammopathy (HCC); Chronic inflammatory demyelinating polyneuropathy (HCC); 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) Start: 07-17-2024 End: 07-17-2024 ambulatory JARED ROBERTSON Facility:[facility] Start: 04-17-2024 End: 06-17-2024 Follow-up encounter Sofia Boyce Work Phone: Podiatry Start: 04-12-2024 End: 04-12-2024 Subsequent hospital visit by physician [facility] Sade Jensen Work Phone: Radiology Comment on above: Pain in left foot [M 79.672] Start: 04-12-2024 End: 04-12-2024 Patient encounter procedure Sofia Boyce Work Phone: Podiatry Comment on above: Pain in left foot (P rimary Dx) Start: 04-12-2024 End: 04-12-2024 ambulatory Sofia Boyce Work Phone: Podiatry Comment on above: Left foot Start: 04-04-2024 End: 04-05-2024 Follow-up encounter Jared Robertson MD Work Phone: [facility] Start: 04-03-2024 End: 04-03-2024 ambulatory JARED ROBERTSON Facility:[facility] Start: 03-24-2024 End: 03-24-2024 Chart abstracting Jared Robertson MD Work Phone: [facility] Comment on above: Outside Imaging Start: 03-22-2024 End: 03-22-2024 Patient encounter procedure Jared Robertson MD Work Phone: [facility] Comment on above: Mixed hyperlipidemia (Primary Dx); Elevated fasting blood sugar; 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; Bilateral carotid artery stenosis; Subclavian artery stenosis, right (HCC); Waldenstrom's macroglobulinemia; Thrombocytopenia (HCC); Neuropathy associated with anti-MAG antibody; Malignant lymphoplasmacytic lymphoma (HCC); GERD without esophagitis; Chronic bronchitis, unspecified chronic bronchitis type (HCC); Anemia, unspecified type; Abdominal aortic aneurysm (AAA) without rupture, unspecified part (HCC); Primary insomnia; Benign non-nodular prostatic hyperplasia without lower urinary tract symptoms; Neuropathy with IgM monoclonal gammopathy (HCC); Temporal headache; Medication management Start: 03-22-2024 End: 03-22-2024 ambulatory JARED ROBERTSON Facility:[facility] Start: 03-22-2024 ambulatory Kristina Giordano Facility:[facility] Start: 03-22-2024 End: 03-22-2024 ambulatory [facility] Facility:[facility] Start: 03-17-2024 End: 03-17-2024 Office outpatient visit 15 minutes Suzette Aguilar MD Work Phone: Division of Hematology & Oncology at [facility] Comment on above: Waldenstrom macroglo bulinemia Start: 03-17-2024 ambulatory JARED Dominguez ty:[facility] Start: 03-07-2024 End: 03-07-2024 ambulatory Treatment Rm 1 Juma [facility] Work Phone: Hematology/Oncology Comment on above: Waldenstrom's macrog lobulinemia (Primary Dx); Neuropathy associated with anti-MAG antibody Start: 02-25-2024 End: 02-28-2024 Telephone encounter Jared Robertson MD Work Phone: [facility] [place] Comment on above: Orders Start: 02-23-2024 End: 02-23-2024 ambulatory SELF Facility:[facility] Start: 02-23-2024 End: 02-23-2024 Patient encounter procedure Jared Robertson MD Work Phone: [facility] [place] Comment on above: Bronchitis (Primary Dx) Start: 02-23-2024 End: 02-23-2024 Chart abstracting Jared Robertson MD Work Phone: [facility] [place] Comment on above: Outside Vascular Med icine Start: 02-22-2024 End: 02-22-2024 ambulatory Kristina Giordano Facility:[facility] Start: 02-20-2024 End: 02-20-2024 ambulatory JARED ROBERTSON Facility:[facility] Start: 02-20-2024 End: 02-20-2024 Patient encounter procedure Korina Aguilar APRN.CNP Work Phone: [facility] Comment on above: Viral URI with cough (Primary Dx) Start: 02-10-2024 ambulatory JARED Dominguez ty:[facility] Start: 02-10-2024 End: 02-10-2024 Subsequent hospital visit by physician Ct [facility] Radiology Start: 02-10-2024 ambulatory JARED Dominguez ty:[facility] Start: 02-10-2024 End: 02-10-2024 Subsequent hospital visit by physician [facility] Work Phone: Cardiology Lab Comment on above: Atypical chest pain [R07.89] Start: 02-10-2024 ambulatory JARED Dominguez ty:[facility] Start: 02-10-2024 End: 02-10-2024 Subsequent hospital visit by physician [facility] 2 Work Phone: Molecular Imaging Comment on above: Atypical chest pain [R07.89] Start: 02-08-2024 End: 02-08-2024 Telephone encounter Mimi Orellana RN Cardiology Lab Comment on above: Reminder Call Start: 01-19-2024 End: 01-21-2024 Telephone encounter Jared Robertson MD Work Phone: [facility] [place] Comment on above: Orders Start: 01-19-2024 ambulatory JARED ROBERTSON Facili ty:[facility] Start: 01-19-2024 End: 01-19-2024 Subsequent hospital visit by physician [facility] Work Phone: Molecular Imaging Comment on above: Atypical chest pain [R07.89] Start: 01-18-2024 End: 01-18-2024 Telephone encounter Mimi Orellana RN Cardiology Lab Comment on above: Reminder Call Start: 01-14-2024 End: 01-14-2024 ambulatory JARED ROBERTSON Facility:[facility] Start: 01-12-2024 End: 01-12-2024 Patient encounter procedure Jared Robertson MD Work Phone: [facility] [place] Comment on above: Atypical chest pain (Primary Dx); 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; Mixed hyperlipidemia; GERD without esophagitis; Right inguinal pain; Abdominal aortic aneurysm (AAA) without rupture, unspecified part (HCC); First degree AV block; Bilateral carotid artery stenosis; Subclavian artery stenosis, right (HCC); Epigastric pain; Irritable bowel syndrome with constipation Start: 01-12-2024 End: 01-12-2024 ambulatory JARED ROBERTSON Facility:[facility] Start: 01-08-2024 End: 01-08-2024 ambulatory JARED ROBERTSON Facility:[facility] Start: 12-27-2023 End: 12-27-2023 ambulatory SOFIA BOYCE Facility:[facility] Start: 12-27-2023 End: 12-27-2023 Patient encounter procedure Sofia Boyce Work Phone: Podiatry Comment on above: Open wound of toe, i nitial encounter (Primary Dx) Start: 12-09-2023 End: 12-09-2023 ambulatory SOFIA BOYCE Facility:[facility] Start: 12-09-2023 End: 12-09-2023 Patient encounter procedure Sofia Boyce Work Phone: Podiatry Comment on above: Onychodystrophy (Elda jake Dx) Start: 11-23-2023 End: 11-23-2023 Patient encounter procedure Maxwell Wharton DO Work Phone: Neurology Comment on above: 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); Neuropathy with IgM monoclonal gammopathy (HCC); 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) Start: 11-16-2023 End: 11-16-2023 Patient encounter procedure Sofia Boyce Work Phone: Podiatry Comment on above: Onychodystrophy (Elda jake Dx) Start: 11-11-2023 End: 11-11-2023 ambulatory Sofia Boyce Work Phone: Podiatry Comment on above: Left big toe Start: 10-21-2023 End: 10-21-2023 Patient encounter procedure Jared Robertson MD Work Phone: [facility] Comment on above: Irritable bowel synd praneeth with both constipation and diarrhea (Primary Dx) Start: 10-19-2023 End: 10-19-2023 Chart abstracting Eliza Beckett MA [facility] Comment on above: ER F/U Start: 10-17-2023 End: 10-17-2023 Emergency department patient visit Jared Robertson Facility:[facility] Start: 10-07-2023 End: 10-07-2023 Subsequent hospital visit by physician Kristen [facility] Work Phone: Radiology Comment on above: 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 (HCC) [M86.072] Start: 10-07-2023 End: 10-07-2023 Patient encounter procedure Sofia Boyce Work Phone: Podiatry Comment on above: 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 (HCC) (Primary Dx) Start: 10-07-2023 End: 10-07-2023 Patient encounter procedure Korina Aguilar APRN.CNP Work Phone: [facility] Comment on above: Acute constipation ( Primary Dx) Start: 10-06-2023 End: 10-06-2023 Subsequent hospital visit by physician Xr [facility] [place] [facility] Work Phone: Radiology Comment on above: Constipation, unspec ified constipation type [K59.00] Start: 10-06-2023 End: 10-06-2023 ambulatory Jared Robertson MD Work Phone: [facility] [place] Comment on above: Constipation Start: 09-21-2023 End: 09-21-2023 ambulatory Treatment Rm 1 Juma [facility] Work Phone: Hematology/Oncology Comment on above: Waldenstrom's macrog lobulinemia (HCC) (Primary Dx); Neuropathy associated with anti-MAG antibody Start: 09-07-2023 Telephone encounter Ewa anderson RN Work Phone: Neurology Start: 08-24-2023 End: 08-24-2023 Patient encounter procedure Sofia Boyce Work Phone: Podiatry Comment on above: 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 (HCC) (Primary Dx); Open wound of toe, initial encounter Start: 08-23-2023 End: 08-23-2023 Patient encounter procedure Maxwell Wharton DO Work Phone: Neurology Comment on above: 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); Chronic inflammatory demyelinating polyneuropathy (HCC); Waldenstrom macroglobulinemia (HCC) Start: 08-09-2023 Telephone encounter Sofia Patino Work Phone: Podiatry Comment on above: Results Start: 08-07-2023 End: 08-07-2023 Subsequent hospital visit by physician Mri Radio [facility] Stro (I-Stat/1.5t) Work Phone: Radiology Comment on above: 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 (HCC) [M86.072] Start: 08-06-2023 End: 08-06-2023 Patient encounter procedure Sofia Boyce Work Phone: Podiatry Comment on above: Cellulitis and absce ss of toe of left foot (Primary Dx); 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) Start: 08-06-2023 End: 08-06-2023 Subsequent hospital visit by physician Xr [facility] [place] Work Phone: Radiology Comment on above: Cellulitis and absce ss of toe of left foot [L03.032, L02.612] Start: 08-05-2023 ambulatory Sofia harmon Work Phone: Podiatry Comment on above: Prescription and pro anderson Start: 07-29-2023 End: 07-29-2023 Office outpatient visit 15 minutes Suzette Aguilar MD Work Phone: Division of Hematology & Oncology at [facility] Comment on above: Waldenstrom macroglo bulinemia Start: 07-29-2023 ambulatory SUZETTE AGUILAR [facility] Start: 07-09-2023 End: 07-09-2023 Patient encounter procedure Sofia Morewil Work Phone: Podiatry Comment on above: Cellulitis and absce ss of toe of left foot (Primary Dx); 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); Ingrowing toenail of left foot Medicare annual [place] [facility], subsequent (Primary Dx); Mixed hyperlipidemia; GERD without esophagitis; Bilateral carotid artery stenosis; Abdominal aortic aneurysm (AAA) without rupture, unspecified part (HCC); Subclavian artery stenosis, right (HCC); Malignant lymphoplasmacytic lymphoma (HCC); Waldenstrom's macroglobulinemia (HCC); Anemia, unspecified type; Thrombocytopenia (HCC); Neuropathy associated with anti-MAG antibody; Elevated fasting blood sugar; Chronic bronchitis, unspecified chronic bronchitis type (HCC); Primary insomnia; Benign non-nodular prostatic hyperplasia without lower urinary tract symptoms; Balance problem; Palpitations Start: 07-08-2023 End: 07-08-2023 Patient encounter procedure Ines Doe MD Work Phone: Infectious Disease Comment on above: Toe infection (Prima ry Dx) Start: 07-07-2023 Telephone encounter Sofia Patino Work Phone: Podiatry Comment on above: Orders Start: 07-06-2023 End: 07-06-2023 Subsequent hospital visit by physician Xr [facility] [place] Mikey Work Phone: Radiology Comment on above: Cellulitis and absce ss of toe of left foot [L03.032, L02.612] Start: 07-06-2023 End: 07-06-2023 Patient encounter procedure Sofia Boyce Work Phone: Podiatry Comment on above: Cellulitis and absce ss of toe of left foot (Primary Dx); Abdominal aortic aneurysm (AAA) without rupture, unspecified part (HCC) Start: 07-02-2023 End: 07-02-2023 Patient encounter procedure Jared Robertson MD Work Phone: [facility] [place] Comment on above: Cellulitis of skin ( Primary Dx) Start: 06-29-2023 End: 06-29-2023 Patient encounter procedure Matthew Servin MD Work Phone: Neurology Comment on above: 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); Neuropathy associated with anti-MAG antibody; Neoplasm of unspecified behavior of other specified sites Start: 06-28-2023 End: 06-28-2023 Patient encounter procedure Jared Robertson MD Work Phone: [facility] [place] Comment on above: Cellulitis of skin ( Primary Dx); Venous stasis Start: 06-25-2023 Telephone encounter Jared Robertson MD Work Phone: [facility] [place] Comment on above: Results Start: 06-24-2023 Telephone encounter Tanisha yoon PA-C Work Phone: [facility] [place] Comment on above: Results rx not at pharmacy Start: 06-24-2023 End: 06-24-2023 Subsequent hospital visit by physician Kristen [facility] [place] Work Phone: Radiology Comment on above: Pain of left great t oe [M79.675] Start: 06-24-2023 End: 06-24-2023 Patient encounter procedure Jared Robertson MD Work Phone: [facility] [place] Comment on above: Pain of left great t oe (Primary Dx); Cellulitis of skin Start: 06-21-2023 Chart abstracting Jared nation MD Work Phone: [facility] Start: 06-20-2023 End: 06-20-2023 Emergency department patient visit Dr. Jared Robertson Work Phone: [facility]-Emergency Department Work Phone: Start: 06-17-2023 Chart abstracting Jared nation MD Work Phone: [facility] Comment on above: ext. document (H&P D r. Friend, Colonoscopy and EGD Report) Start: 06-17-2023 ambulatory [facility] Facility :[facility] Start: 06-17-2023 Non-patient / Non-visit Dr. Marshall Robertson Work Phone: [facility] Start: 06-17-2023 End: 06-17-2023 Admission to same day surgery center Dr. Jared Robertson Work Phone: [facility]-Endoscopy Work Phone: Start: 06-17-2023 End: 06-17-[address] Jared Robertson Work Phone: [facility] Work Phone: Start: 06-02-2023 End: 06-02-[address] Jared Robertson Work Phone: [facility] Gastroenterology Work Phone: Start: 06-02-2023 End: 06-02-2023 ambulatory [facility] Facility:[facility] Start: 05-26-2023 End: 05-26-2023 Patient encounter procedure Mimi Solis PA-C Work Phone: Neurology Comment on above: CIDP (chronic inflam matory demyelinating polyneuropathy) (HCC) (Primary Dx); Unsteady gait; Neuropathy; Neuropathy associated with anti-MAG antibody Start: 05-26-2023 ambulatory Nurse Card Adm in [facility] Work Phone: Cardiology Comment on above: Stress Test Instruct ions for 05/31/23 Start: 05-26-2023 E-mail encounter fro m caregiver Nurse Card Admin [facility] Work Phone: [facility] Start: 05-06-2023 Chart abstracting Jared nation MD Work Phone: [facility] [place] Comment on above: OUTSIDE CARDIAC Start: 05-05-2023 Telephone encounter Jared Robertson MD Work Phone: [facility] [place] Comment on above: Results Start: 04-21-2023 End: 04-21-2023 ambulatory Treatment Rm 2 Juma [facility] Work Phone: Hematology/Oncology Comment on above: Waldenstrom's macrog lobulinemia (HCC) (Primary Dx); Neuropathy associated with anti-MAG antibody Start: 04-19-2023 End: 04-19-2023 Subsequent hospital visit by physician Card Lab [facility] Comment on above: Palpitations [R00.2] Start: 04-14-2023 End: 04-14-2023 Patient encounter procedure Jared Robertson MD Work Phone: [facility] Comment on above: Hypokalemia (Primary Dx); Palpitations; Microscopic hematuria; Pounding noise in ear, right; Encounter for screening for cardiovascular disorders; 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 (CODE); 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; First degree heart block; Mixed hyperlipidemia Start: 04-06-2023 End: 04-06-2023 ambulatory Treatment Rm 6 Juma [facility] Work Phone: Hematology/Oncology Comment on above: Waldenstrom's macrog lobulinemia (HCC) (Primary Dx); Neuropathy associated with anti-MAG antibody Start: 04-02-2023 Telephone encounter Jared Robertson MD Work Phone: [facility] [place] Comment on above: Orders Start: 03-26-2023 Telephone encounter Ewa anderson RN Work Phone: Neurology Comment on above: Patient Question Start: 03-24-2023 E-mail encounter amna m caregiver [facility] Provider [facility] Start: 03-24-2023 Patient encounter procedure [facility] Provider Neurology Comment on above: Appointment schedchas [place] Start: 03-19-2023 End: 03-19-2023 Orders Only Maxwell Wharton DO Work Phone: Neurology Comment on above: Neuropathy (Primary Dx) Results [facility] Start: 03-12-2023 Non-patient / Non-visit Dr. Marshall Robertson Work Phone: [facility] Start: 03-12-2023 End: 03-12-[address] Jared Robertson Work Phone: [facility] Work Phone: Start: 03-12-2023 End: 03-12-[address] [facility] Start: 03-01-2023 End: 03-01-[address] Jared Robertson Work Phone: [facility] Vascular Surgery Work Phone: Start: 01-21-2023 End: 01-21-2023 Office outpatient visit 15 minutes Suzette Aguilar MD Work Phone: Division of Hematology & Oncology at [facility] Comment on above: Anemia, unspecified type (Primary Dx); Waldenstrom macroglobulinemia Start: 01-09-2023 End: 01-09-2023 Patient encounter procedure Kevin Copeland MD Work Phone: [facility] [place] Comment on above: Unsteady gait (Prima ry Dx); Need for influenza vaccination Start: 01-07-2023 Telephone encounter Jared Robertson MD Work Phone: [facility] [place] Comment on above: Patient Update Start: 01-05-2023 End: 01-05-2023 ambulatory Lino Rodriguez PT Work Phone: [facility] Comment on above: Unsteadiness (Primar y Dx) Start: 12-31-2022 End: 12-31-2022 ambulatory Lino Rodriguez PT Work Phone: [facility] Comment on above: Unsteadiness (Primar y Dx) Start: 12-10-2022 End: 12-10-2022 ambulatory Lino Rodriguez PT Work Phone: [facility] Comment on above: Unsteadiness (Primar y Dx) Start: 12-03-2022 End: 12-03-2022 ambulatory Lino Rodriguez PT Work Phone: [facility] Comment on above: Unsteadiness (Primar y Dx) Start: 11-18-2022 End: 11-18-[address] Jared Robertson Work Phone: [facility] Gastroenterology Work Phone: Start: 10-28-2022 Telephone encounter Tanisha yoon PA-C Work Phone: [facility] [place] Comment on above: Results Start: 10-27-2022 Telephone encounter Tanisha yoon PA-C Work Phone: [facility] Medicine [place] Comment on above: Results Start: 10-27-2022 End: 10-27-2022 Patient encounter procedure Tanisha Garcia PA-C Work Phone: [facility] [place] Comment on above: Lightheadedness (Elda jake Dx); Unsteadiness Start: 10-26-2022 Telephone encounter Jared Robertson MD Work Phone: [facility] [place] Comment on above: Orders Start: 10-05-2022 End: 10-05-2022 Patient encounter procedure Korina Aguilar APRN.MATTRESS FINISHER Work Phone: [facility] [place] Comment on above: Rosacea (Primary Dx) ; Monoclonal gammopathy; Anemia; Waldenstrom macroglobulinemia (HCC); Mixed hyperlipidemia; GERD without esophagitis; Malignant lymphoplasmacytic lymphoma (HCC); Bilateral carotid artery stenosis; 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; Thrombocytopenia (HCC); Abdominal aortic aneurysm (AAA) without rupture, unspecified part (HCC); Chronic bronchitis, unspecified chronic bronchitis type (HCC); Hiatal hernia; Benign non-nodular prostatic hyperplasia without lower urinary tract symptoms; DDD (degenerative disc disease), lumbar; Anemia, unspecified type Start: 09-02-2022 Chart abstracting Jared nation MD Work Phone: [facility] Comment on above: Outside Imaging Start: 09-01-2022 Non-patient / Non-visit Dr. Marshall Robertson Work Phone: [facility] Start: 08-31-2022 Non-patient / Non-visit Dr. Marshall Robertson Work Phone: [facility] Work Phone: Start: 08-31-2022 End: 09-01-[address] Jared Robertson Work Phone: [facility] Work Phone: Start: 08-31-2022 End: 09-01-2022 Evaluation and management of inpatient Dr. Jared Robertson Work Phone: [facility]-Progressive Care Unit Work Phone: Start: 08-31-2022 Chart abstracting Jared nation MD Work Phone: [facility] Comment on above: Outside Imaging Start: 08-31-2022 End: 08-31-2022 Patient encounter procedure Sabi To PA-C Work Phone: [facility] Comment on above: Balance problem (Elda jake Dx) Start: 06-18-2022 Chart abstracting Jared nation MD Work Phone: [facility] Comment on above: Consult (GI //) Start: 06-16-2022 End: 06-16-[address] Jared Robertson Work Phone: [facility] G[facility]enterology Work Phone: Start: 06-08-2022 Chart abstracting Jared nation MD Work Phone: [facility] Comment on above: Consult Start: 06-05-2022 Non-patient / Non-visit Dr. Marshall Robertson Work Phone: [facility] Start: 06-05-2022 End: 06-05-2022 Admission to same day surgery center Dr. Jared Robertson Work Phone: [facility]-Endoscopy Start: 06-05-2022 End: 06-05-[address] Jared Robertson Work Phone: [facility] Work Phone: Start: 05-21-2022 End: 05-21-[address] Jared Robertson Work Phone: [facility] Start: 04-23-2022 End: 04-23-[address] Jared Robertson Work Phone: [facility] Start: 04-13-2022 Chart abstracting Jared nation MD Work Phone: [facility] [place] Comment on above: Consult (General Ruthie minoo ) Start: 04-07-2022 Telephone encounter Tanisha yoon PA-C Work Phone: [facility] [place] Comment on above: Results Start: 04-06-2022 End: 04-06-2022 Patient encounter procedure Jared Robertson MD Work Phone: [facility] [place] Comment on above: Medicare annual well ness visit, subsequent (Primary Dx); Mixed hyperlipidemia; Chronic bronchitis, unspecified chronic bronchitis type (HCC); Elevated fasting blood sugar; 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; GERD without esophagitis; Abdominal aortic aneurysm (AAA) without rupture, unspecified part (HCC); Bilateral carotid artery stenosis; Subclavian artery stenosis, right (HCC); Malignant lymphoplasmacytic lymphoma (HCC); Waldenstrom's macroglobulinemia (HCC); Thrombocytopenia (HCC); Anemia, unspecified type; Primary insomnia; Erectile dysfunction, unspecified erectile dysfunction type; Benign non-nodular prostatic hyperplasia without lower urinary tract symptoms; Advance directive discussed with patient Start: 04-02-2022 End: 04-02-[address] Jared Robertson Work Phone: [facility] Start: 03-25-2022 Chart abstracting Jared nation MD Work Phone: [facility] Comment on above: Results (EGD ) Start: 03-23-2022 Non-patient / Non-visit Dr. Marshall Robertson Work Phone: [facility] Start: 03-23-2022 End: 03-23-2022 Admission to same day surgery center [facility] Start: 03-23-2022 End: 03-23-[address] Jared Robertson Work Phone: [facility] Work Phone: Start: 03-11-2022 End: 03-11-2022 Non-patient / Non-visit Dr. Jared Robertson Work Phone: [facility] Start: 02-19-2022 End: 02-19-[address] Jared Robertson Work Phone: [facility] Start: 01-30-2022 End: 01-30-2022 Office outpatient visit 15 minutes Suzette Aguilar MD Work Phone: Division of Hematology & Oncology Comment on above: Waldenstrom macroglo bulinemia Start: 01-22-2022 End: 01-22-2022 Admission to same day surgery center Dr. Jared Robertson Work Phone: [facility]-Endoscopy Start: 01-22-2022 End: 01-22-[address] Jared Robertson Work Phone: [facility] Work Phone: Start: 01-19-2022 End: 01-19-[address] Jared Robertson Work Phone: [facility] Work Phone: Start: 01-19-2022 End: 01-19-[address] Jared Robertson Work Phone: [facility]-Radiology, [facility] Start: 01-15-2022 End: 01-15-[address] Jared Robertson Work Phone: [facility] Start: 12-25-2021 End: 12-25-[address] Jared Robertson Work Phone: [facility] G[facility] Start: 12-16-2021 Telephone encounter Tata Porter DO Work Phone: Vascular Surgery Comment on above: Opened In Error Start: 12-09-2021 End: 12-09-2021 Patient encounter procedure Tata Porter DO Work Phone: Vascular Surgery Comment on above: Infrarenal abdominal aortic aneurysm (AAA) without rupture (Primary Dx); Abdominal aortic aneurysm (AAA) without rupture; Subclavian artery stenosis, right (HCC); Bilateral carotid artery stenosis Start: 11-25-2021 Non-patient / Non-visit Dr. Marshall Robertson Work Phone: [facility] [facility] Start: 11-25-2021 End: 11-25-2021 Admission to same day surgery center Dr. Jared Robertson Work Phone: [facility] Start: 11-25-2021 End: 11-25-[address] Jared Robertson Work Phone: [facility] Work Phone: Start: 10-29-2021 End: 10-29-[address] 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; Mixed hyperlipidemia; Medication management Start: 09-18-2021 End: 09-18-2021 Subsequent hospital visit by physician Xr [facility] [place] Work Phone: Radiology Comment on above: Acute cough [R05.1] Start: 09-18-2021 ambulatory Jared davis MD Work Phone: [facility] Comment on above: Cough Start: 09-09-2021 End: 09-09-2021 ambulatory Tunde Stewartrey MARTINMATTRESS FINISHER Work Phone: [facility] [place] Comment on above: COVID (Primary Dx) Start: 09-09-2021 End: 09-09-2021 Telemedicine consultation with patient Tunde Martínez APRN.MATTRESS FINISHER Work Phone: [facility] [place] Start: 08-22-2021 End: 08-22-2021 ambulatory Raymundo Hsu PT [facility] Comment on above: Balance problem (Elda joseph Dx); Chronic low back pain without sciatica, unspecified back pain laterality Start: 08-21-2021 Telephone encounter Jared Robertson MD Work Phone: [facility] Comment on above: Referral Request; Or ders; Appointment Start: 08-15-2021 End: 08-15-2021 ambulatory Raymundo Hsu PT [facility] Comment on above: Balance problem (Elda jake Dx); Chronic low back pain without sciatica, unspecified back pain laterality Start: 08-13-2021 Telephone encounter Jared Robertson MD Work Phone: [facility] Comment on above: Referral Request Start: 08-11-2021 End: 08-11-2021 Patient encounter reyes Archer PA-C Work Phone: [facility] [place] Comment on above: Lumbar sprain, subse quent encounter (Primary Dx); Chronic low back pain without sciatica, unspecified back pain laterality; DDD (degenerative disc disease), lumbar Start: 08-08-2021 End: 08-08-2021 ambulatory Raymundo Hsu PT [facility] Comment on above: Balance problem (Elda joseph Dx); Chronic low back pain without sciatica, unspecified back pain laterality Start: 08-05-2021 Non-patient / Non-visit Dr. Marshall Robertson Work Phone: [facility] Start: 08-04-2021 End: 08-05-2021 Evaluation and management of inpatient Dr. Jared Robertson Work Phone: [facility] 3 Start: 08-04-2021 Non-patient / Non-visit Dr. Marshall Robertson Work Phone: [facility] Start: 08-01-2021 End: 08-01-2021 Office outpatient visit 15 minutes Suzette Aguilar MD Work Phone: Division of Hematology & Oncology Comment on above: Waldenstrom macroglo bulinemia Start: 07-17-2021 End: 07-17-2021 ambulatory Raymundo Hsu PT [facility] Comment on above: Balance problem (Elda joseph Dx); Chronic low back pain without sciatica, unspecified back pain laterality Start: 06-05-2021 End: 06-05-2021 ambulatory Raymundo Hsu PT Work Phone: [facility] Comment on above: Balance problem (Elda joseph Dx); Chronic low back pain without sciatica, unspecified back pain laterality Start: 05-23-2021 End: 05-23-2021 ambulatory Raymundo Hsu PT Work Phone: [facility] Comment on above: Balance problem (Elda joseph Dx); Chronic low back pain without sciatica, unspecified back pain laterality Start: 03-29-2021 Patient encounter procedure Raymundo Hsu PT Work Phone: [facility] Work Phone: Start: 02-19-2021 End: 02-19-2021 Subsequent hospital visit by physician Xr [facility] [place] Work Phone: Radiology Comment on above: Toe pain, left [M79. 675] Start: 10-12-2020 End: 10-12-2020 Subsequent hospital visit by physician Xr [facility] [place] Work Phone: Radiology Comment on above: Cough [R05] Start: 09-12-2020 End: 09-12-2020 Office outpatient visit 25 minutes Suzette Aguilar MD Work Phone: Division of Hematology & Oncology Comment on above: Waldenstrom macroglo bulinemia (Primary Dx); Examination of participant in clinical trial Start: 09-12-2020 End: 09-12-2020 Patient encounter procedure Suzette Aguilar MD Work Phone: Division of Hematology & Oncology Start: 07-30-2017 End: 07-30-2017 Ambulatory GARCIA ROJAS Facility:[facility] Start: 07-02-2017 Ambulatory GARCIA ROJAS Facilit y:[facility] Start: 12-25-2016 End: 12-25-2016 Ambulatory GARCIA ROJAS Facility:[facility] Procedures Date Procedure Procedure Detail Performing Clinician Start: 09-14-2024 Ct abdomen w/contras t material Jared Robertson MD Work Phone: Start: 08-30-2024 Adult depression scr eening assessment Jared Robertson MD Work Phone: Start: 03-17-2024 CBC AND ELECTRONIC DIFF Esdras MALDONADOC Work Phone: Start: 03-17-2024 Complete blood count with white cell differential, automated Esdras MALDONADOC Work Phone: Start: 03-17-2024 Comprehensive metabo lic panel Esdras MALDONADOC Work Phone: Start: 03-17-2024 SPE SERUM TOTAL PROTEIN Esdras STEPHENS-C Work Phone: Start: 02-10-2024 Cta abdl aorta&bi il iofem w/contrast&postp Jared Robertson MD Work Phone: Start: 02-10-2024 Myocardial spect mul tiple studies Jared Robertson MD Work Phone: Start: 09-21-2023 Assay of gammaglobul in iga igd igg igm each Maxwell Wharton DO Work Phone: Start: 08-07-2023 Mri lower extrem oth /thn jt w/o contr matrl Sofia Austen Work Phone: Start: 08-06-2023 Radex toe minimum 2 views Sofia Austen Work Phone: Start: 07-29-2023 CBC AND ELECTRONIC DIFF Esdras Retana PA-C Work Phone: Start: 07-29-2023 Complete blood count with white cell differential, automated Esdras Retana PA-C Work Phone: Start: 07-29-2023 Comprehensive metabo lic panel Esdras Retana PA-C Work Phone: Start: 07-29-2023 SPE SERUM TOTAL PROTEIN Esdras Retana PA-C Work Phone: Start: 07-09-2023 Adult depression scr eening assessment Treatment Wstr Work Phone: Start: 07-06-2023 Radex toe minimum 2 views Soifa Boyce Work Phone: Start: 07-06-2023 Cul bact xcpt urine blood/stool aerobic isol Sofia Boyce Work Phone: Start: 06-24-2023 Radex toe minimum 2 views Jared Robertson MD Work Phone: Start: 06-17-[address] Jerry Robertson Work Phone: Start: 03-19-2023 Nerve conduction carolina dies 5-6 studies Mimi Solis PA-C Work Phone: Start: 01-21-2023 CBC AND ELECTRONIC DIFF Esdras AGUIRRE Work Phone: Start: 01-21-2023 Complete blood count with white cell differential, automated Esdras Retana PAC Work Phone: Start: 01-21-2023 Comprehensive metabo lic panel Esdras Retana PAC Work Phone: Start: 01-21-2023 SPE SERUM TOTAL PROTEIN Esdras Retana PAC Work Phone: Start: 01-09-2023 INFLUENZA VACCINE, P RSV FREE, AGE 65+ YR, HIGH DOSE, QUADRIVALENT (FLUZONE HIGH-DOSE) Kevin Copeland MD Work Phone: Start: 09-01-2022 MRI of brain without contrast Dr. Jared Robertson Work Phone: Start: 08-31-2022 CT angiography of he ad and neck Dr. Jared Robertson Work Phone: Start: 08-31-2022 CT of head without contrast Dr. Jared Robertson Work Phone: Start: 06-05-[address] Jerry Robertson Work Phone: Start: 03-23-2022 Mika fundoplication Justin Robertson Work Phone: Start: 01-30-2022 CBC AND ELECTRONIC DIFF Angela L Uscio WAITER/WAITRESS-MATTRESS FINISHER Work Phone: Start: 01-30-2022 Complete blood count with white cell differential, automated Angela L Uscio WAITER/WAITRESS-MATTRESS FINISHER Work Phone: Start: 01-30-2022 Comprehensive metabo lic panel Angela L Uscio WAITER/WAITRESS-MATTRESS FINISHER Work Phone: Start: 01-30-2022 SPE SERUM TOTAL PROTEIN Angela L Uscio WAITER/WAITRESS-MATTRESS FINISHER Work Phone: Start: 01-22-[address] Stewart Robertson Work Phone: Start: 01-19-[address] Malika Robertson Work Phone: Start: 11-25-[address] Jerry Robertson Work Phone: Start: 09-18-2021 Radiologic exam ches t 2 views Saad Neal MD Work Phone: Start: 08-04-2021 CT of lumbar spine Dr. Jared Robertson Work Phone: Start: 08-01-2021 CBC AND ELECTRONIC DIFF Angela L Uscio WAITER/WAITRESS-MATTRESS FINISHER Work Phone: Start: 08-01-2021 Complete blood count with white cell differential, automated Angela L Uscio WAITER/WAITRESS-MATTRESS FINISHER Work Phone: Start: 08-01-2021 Comprehensive metabo lic panel Angela L Uscio WAITER/WAITRESS-MATTRESS FINISHER Work Phone: Start: 08-01-2021 SPE SERUM TOTAL PROTEIN Angela L Uscio WAITER/WAITRESS-MATTRESS FINISHER Work Phone: Start: 02-19-2021 Radex foot complete minimum 3 views Cordelia Mar WAITER/WAITRESS.MATTRESS FINISHER Work Phone: Start: 10-12-2020 Radiologic exam ches t 2 views Sabi To PA-C Work Phone: Start: 09-12-2020 CBC AND ELECTRONIC DIFF Angela L Uscio WAITER/WAITRESS-MATTRESS FINISHER Work Phone: Start: 09-12-2020 Complete blood count with white cell differential, automated Angela L Uscio WAITER/WAITRESS-MATTRESS FINISHER Work Phone: Start: 09-12-2020 Comprehensive metabo lic panel Angela L Uscio WAITER/WAITRESS-MATTRESS FINISHER Work Phone: Start: 09-12-2020 SPE SERUM TOTAL PROTEIN Angela L Uscio WAITER/WAITRESS-MATTRESS FINISHER Work Phone: Start: 02-03-2013 Wilmer guerra MD Work Phone: Plan of Treatment Date Care Activity Detail Author Start: 08-17-2027 Diabetes Screening Diabetes Screening [facility] Start: 03-17-2027 Diabetes Screening Diabetes Screening [facility] Start: 01-07-2027 Diabetes Screening Diabetes Screening [facility] Start: 07-28-2026 Diabetes Screening Diabetes Screening [facility] Start: 04-03-2026 Diabetes Screening Diabetes Screening [facility] Start: 01-21-2026 Diabetes Screening Diabetes Screening [facility] Start: 10-27-2025 Diabetes Screening Diabetes Screening [facility] Start: 10-03-2025 DIABETES SCREEN DIABETES SCREEN [facility] Start: 10-03-2025 Diabetes Screening Diabetes Screening [facility] Start: 08-30-2025 Anxiety Screening Anxiety Screening [facility] Start: 08-30-2025 Covid-19 Vaccine () Covid-19 Vaccine () [facility] Comment on above: Postponed from 10/17/2023 (Declined at t his time) Start: 08-30-2025 Depression Screening Depression Screening [facility] Start: 08-30-2025 Medicare Annual Wellness Visit Medicare Annual Wellness Visit [facility] Start: 08-30-2025 RSV Vaccine (1 - 1-dose 75+ series) RSV Vaccine (1 - 1-dose 75+ series) [facility] Comment on above: Postponed from 11/20/2015 (Insurance Cov erage) Start: 08-30-2025 Urine microalbumin profile DTaP,Tdap,Td Vaccine (2 - Td or Tdap) [facility] Comment on above: Postponed from 10/31/2020 (Insurance Cov erage) Start: 08-16-2025 Hepatitis B surface antibody level LDL Cholesterol [facility] Start: 04-06-2025 DIABETES SCREEN DIABETES SCREEN [facility] Start: 03-02-2025 End: 03-02-2025 Patient encounter procedure 03/02/2025 9:40 AM EST Office Visit [facility] [place] [address] [place] [address] Tanisha Garcia PA-C [address] [place] [id number] 6 mo f/u [facility] [place] Comment on above: 6 mo f/u Start: 02-15-2025 End: 05-17-2025 Hemoglobin A1c in Blood HEMOGLOBIN A1C Lab Routine Elevated fasting blood sugar Expected: 02/15/2025, Expires: 05/17/2025 [facility] Comment on above: Expected: 02/15/2025, Expires: Start: 02-15-2025 End: 05-17-2025 LIPID PANEL, NONFASTING LIPID PANEL, NONFASTING Lab Routine Mixed hyperlipidemia Bilateral carotid artery stenosis 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 Expected: 02/15/2025, Expires: 05/17/2025 [facility] Comment on above: Expected: 02/15/2025, Expires: Start: 02-02-2025 End: 02-02-2025 Infusion Center 02/02/2025 8:00 AM [facility] Hematology/Oncology [address] [place] [address] Q6MO RITUXAN/MAXWELL AKIKO ORDERING/MDCR* Hematology/Oncol ogy Comment on above: Q6MO RITUXAN/MAXWELL WHARTON ORDERING/M DCR* Start: 01-07-2025 Hepatitis B surface antibody level LDL Cholesterol [facility] Start: 10-26-2024 End: 10-26-2024 Patient encounter procedure 10/26/2024 11:30 AM EDT Office Visit [facility], [facility] Throat (ENT) [address] [place] [phone] Katherine Hernández DO [address] [place], [place] [phone] Dx: Hoarse voice quality [R49.0] [facility] (ENT) Comment on above: Dx: Hoarse voice quality [R49.0] Start: 10-19-2024 End: 10-19-2024 Patient encounter procedure 10/19/2024 10:30 AM EDT Office Visit [facility] (ENT) [address] [place] [phone] Katherine Hernández DO [address] [place], [place] [phone] Dx: Hoarse voice quality [R49.0] [facility] (ENT) Comment on above: Dx: Hoarse voice quality [R49.0] Start: 10-16-2024 Influenza vaccination Influenza Vaccine (#1) [employer] Reta jeffers Start: 09-29-2024 End: 09-29-2024 Patient encounter procedure 09/29/2024 10:15 AM EDT Office Visit Division of Hematology & Oncology at [facility] [address] [place] [phone] Suzette Aguilar MD [address] [place] [address] Division of Hematology & Oncology at [facility] Start: 09-27-2024 End: 09-27-2024 Patient encounter procedure [facility] [place] Comment on above: Medicare Wellness. Labs prior Start: 09-23-2024 DIABETES SCREEN DIABETES SCREEN [facility] Start: 09-14-2024 End: 12-14-2024 Helicobacter pylori [Quantitative] in Stomach by urea breath test BREATH TEST FOR HELICOBACTER PYLORI Lab Routine GERD without esophagitis LUQ pain Expected: 09/14/2024, Expires: 12/14/2024 [facility] Work Phone: Comment on above: Expected: 09/14/2024, Expires: Start: 09-14-2024 End: 09-14-2024 ambulatory 09/14/2024 9:15 AM EDT Results Only [facility] [address] [place] [address] Scan [facility] Comment on above: STAT creatinine for CT Scan Start: 09-14-2024 End: 09-14-2024 Patient encounter procedure Cat Scan Comment on above: LUQ pain [R10.12] Start: 09-12-2024 End: 12-12-2024 Creatinine and Glomerular filtration rate.predicted panel - Serum, Plasma or Blood CREATININE BLD Lab Routine Medication management Expected: 09/12/2024, Expires: 12/12/2024 [facility] Comment on above: Expected: 09/12/2024, Expires: Start: 09-08-2024 End: 12-08-2024 CBC W Auto Differential panel - Blood COMPLETE BLOOD COUNT AND DIFFERENTIAL Lab Routine Thrombocytopenia (HCC) Anemia, unspecified type Expected: 09/08/2024, Expires: 12/08/2024 [facility] Comment on above: Expected: 09/08/2024, Expires: Start: 09-08-2024 End: 12-08-2024 Cobalamin (Vitamin B12) [Mass/volume] in Serum or Plasma VITAMIN B12 Lab Routine GERD without esophagitis Medication management Expected: 09/08/2024, Expires: 12/08/2024 [facility] Comment on above: Expected: 09/08/2024, Expires: Start: 09-08-2024 End: 12-08-2024 Comprehensive metabolic 2000 panel - Serum or Plasma COMPREHENSIVE METABOLIC PANEL Lab Routine Mixed hyperlipidemia Expected: 09/08/2024, Expires: 12/08/2024 [facility] Comment on above: Expected: 09/08/2024, Expires: Start: 09-08-2024 End: 12-08-2024 Hemoglobin A1c in Blood HEMOGLOBIN A1C Lab Routine Elevated fasting blood sugar Expected: 09/08/2024, Expires: 12/08/2024 [facility] Comment on above: Expected: 09/08/2024, Expires: Start: 09-08-2024 End: 12-08-2024 LIPID PANEL, NONFASTING LIPID PANEL, NONFASTING Lab Routine Mixed hyperlipidemia Bilateral carotid artery stenosis Expected: 09/08/2024, Expires: 12/08/2024 [facility] Comment on above: Expected: 09/08/2024, Expires: Start: 09-08-2024 End: 12-08-2024 Magnesium [Mass/volume] in Serum or Plasma MAGNESIUM Lab Routine GERD without esophagitis Medication management Expected: 09/08/2024, Expires: 12/08/2024 [facility] Comment on above: Expected: 09/08/2024, Expires: Start: 09-08-2024 End: 12-08-2024 Thyrotropin [Units/volume] in Serum or Plasma THYROID STIMULATING HORMONE Lab Routine Waldenstrom's macroglobulinemia Medication management Expected: 09/08/2024, Expires: 12/08/2024 [facility] Comment on above: Expected: 09/08/2024, Expires: Start: 09-08-2024 End: 12-08-2024 Urinalysis complete panel - Urine URINALYSIS, WITH MICROSCOPIC Lab Routine Mixed hyperlipidemia Expected: 09/08/2024, Expires: 12/08/2024 [facility] Comment on above: Expected: 09/08/2024, Expires: Start: 09-07-2024 End: 09-07-2024 Patient encounter procedure 09/07/2024 10:00 AM EDT Appointment Radiology [address] [place] [address] Dx: LUQ pain [R10.12] Radiology Comment on above: Dx: LUQ pain [R10.12] Start: 08-30-2024 End: 08-30-2024 Patient encounter procedure 08/30/2024 1:00 PM EDT Office Visit [facility] [place] [address] [place] [address] Jared Robertson MD [address] [place] [address] Medicare Wellness. Labs prior [facility] Comment on above: Medicare Wellness. 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) Expected: 07/17/2024, Expires: 10/16/2024 [facility] Comment on above: Expected: 07/17/2024, Expires: Start: 07-17-2024 End: 10-16-2024 IgG [Mass/volume] in Serum or Plasma IMMUNOGLOBULIN G Lab Routine 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) Expected: 07/17/2024, Expires: 10/16/2024 [facility] Comment on above: Expected: 07/17/2024, Expires: Start: 07-17-2024 End: 10-16-2024 MAG ANTIBODY,IGM FARIDA MAG ANTIBODY,IGM FARIDA Lab Routine 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) Expected: 07/17/2024, Expires: 10/16/2024 [facility] Work Phone: Comment on above: Expected: 07/17/2024, Expires: Start: 07-17-2024 End: 07-17-2024 Patient encounter procedure 07/17/2024 11:00 AM EDT Office Visit Neurology [address] [phone] Maxwell Wharton DO [address] [place] [address] 6 month follow up Neurology Comment on above: 6 month follow up Start: 07-08-2024 Anxiety Screening Anxiety Screening [facility] Start: 07-08-2024 Covid-19 Vaccine ( season) Covid-19 Vaccine () [facility] Comment on above: Postponed from 10/16/2022 (Declined at t his time) Start: 07-08-2024 Depression Screening Depression Screening [facility] Start: 07-08-2024 Medicare Annual Wellness Visit Medicare Annual Wellness Visit [facility] Start: 07-08-2024 RSV Vaccine (1 - 1-dose 60+ series) RSV Vaccine (1 - 1-dose 60+ series) [facility] Comment on above: Postponed from 2000 (Insurance Cov erage) Start: 05-24-2025 RSV Vaccine (1 - 1-dose 75+ series) RSV Vaccine (1 - 1-dose 75+ series) [facility] Comment on above: Postponed from 11/20/2015 (Insurance Cov erage) Start: 07-08-2024 Urine microalbumin profile DTaP,Tdap,Td Vaccine (2 - Td or Tdap) [facility] Comment on above: Postponed from 10/31/2020 (Insurance Cov erage) Start: 06-05-2024 End: 06-05-2024 Patient encounter procedure 06/05/2024 11:00 AM EDT Office Visit Neurology [address] [place], [place] [phone] Maxwell Wharton DO [address] [place] [address] 6 month follow up Neurology Comment on above: 6 month follow up Start: 04-03-2024 Hepatitis B surface antibody level LDL Cholesterol [facility] Start: 03-22-2024 End: 03-22-2024 Patient encounter procedure 03/22/2024 6:40 PM EST Office Visit [facility] [place] [address] [place], [place] [phone] Jared Robertson MD [address] [place], [place] [id number] 6 month follow up [facility] [place] Comment on above: 6 month follow up Start: 03-22-2024 End: 06-21-2024 C reactive protein [Mass/volume] in Serum or Plasma C-REACTIVE PROTEIN Lab Routine Temporal headache Expected: 03/22/2024, Expires: 06/21/2024 [facility] Work Phone: Comment on above: Expected: 03/22/2024, Expires: Start: 03-18-2024 DIABETES SCREEN DIABETES SCREEN [facility] Start: 03-07-2024 End: 03-07-2024 Infusion Center 03/07/2024 8:00 AM EST Infusion Center Hematology/Oncology [address] [place], [place] [id number] Q6MO AMPARO/MAXWELL WHARTON ORDERING/MDCR* Hematology/Oncol ogy Comment on above: Q6MO RITUXAN/MAXWELL WHARTON ORDERING/M DCR* Start: 02-23-2024 End: 02-23-2024 Patient encounter procedure 02/23/2024 2:40 PM EST Office Visit [facility] [place] [address] [place] [address] Jared Robertson MD [address] [place], [place] [address] 6 mo follow up [facility] [place] Comment on above: 6 mo follow up Start: 02-17-2024 End: 02-17-2024 Patient encounter procedure 02/17/2024 10:30 AM EST Office Visit Division of Hematology & Oncology at [facility] [address] [place] [phone] Suzette Aguilar MD [address] [place] [address] Division of Hematology & Oncology at [facility] Start: 02-16-2024 Advance Directive Discussion Advance Directive Discussion [facility] Start: 02-10-2024 Subsequent hospital visit by physician 02/10/2024 1:45 PM EST Hospital Encounter Cardiology Lab [address] [place] [address] Atypical chest pain [R07.89] Cardiology Lab Comment on above: Atypical chest pain [R07.89] Start: 02-10-2024 End: 02-10-2024 Patient encounter procedure Radiology Comment on above: Right inguinal pain [R10.31]; Abdominal aortic aneurysm (AAA) without rupture, unspecified part (HCC) [I71.40] Atypical chest pain [R07.89]; 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 [I25.83] 20G IV Right inguina l pain [R10.31]; Abdominal aortic aneurysm (AAA) without rupture, unspecified part (HCC) [I71.40] Start: 01-27-2024 End: 01-27-2024 Patient encounter procedure 01/27/2024 3:20 PM EST Office Visit [facility] [place] [address] [place] [address] Korina Aguilar APRN.MATTRESS FINISHER [address] [place], [place] [id number] 6 month follow up [facility] Comment on above: 6 month follow up Start: 01-24-2024 End: 07-28-2024 BETA 2 MICROGLOBULIN SERUM BETA 2 MICROGLOBULIN SERUM Lab Routine Waldenstrom macroglobulinemia Expected: 01/24/2024 (Approximate), Expires: 07/28/2024 [facility] Comment on above: Expected: 01/24/2024 (Approximate), Expi res: 07/28/2024 Start: 01-24-2024 End: 07-28-2024 Complete blood count with white cell differential, automated CBC, EDIF, PLATELET Lab Routine Waldenstrom macroglobulinemia Expected: 01/24/2024 (Approximate), Expires: 07/28/2024 [facility] Comment on above: Expected: 01/24/2024 (Approximate), Expi res: 07/28/2024 Start: 01-24-2024 End: 07-28-2024 Comprehensive metabolic 2000 panel - Serum or Plasma COMPREHENSIVE METABOLIC PANEL Lab Routine Waldenstrom macroglobulinemia Expected: 01/24/2024 (Approximate), Expires: 07/28/2024 [facility] Comment on above: Expected: 01/24/2024 (Approximate), Expi res: 07/28/2024 Start: 01-24-2024 End: 07-28-2024 Lactate dehydrogenase [Enzymatic activity/volume] in Serum or Plasma LACTATE DEHYDROGENASE Lab Routine Waldenstrom macroglobulinemia Expected: 01/24/2024 (Approximate), Expires: 07/28/2024 [facility] Comment on above: Expected: 01/24/2024 (Approximate), Expi res: 07/28/2024 Start: 01-24-2024 End: 07-28-2024 MONOCLONAL PROT IMMUNO, SERUM MONOCLONAL PROT IMMUNO, SERUM Lab Routine Waldenstrom macroglobulinemia Expected: 01/24/2024 (Approximate), Expires: 07/28/2024 [facility] Comment on above: Expected: 01/24/2024 (Approximate), Expi res: 07/28/2024 Start: 01-24-2024 End: 07-28-2024 VISCOSITY, SERUM VISCOSITY, SERUM Lab Routine Waldenstrom macroglobulinemia Expected: 01/24/2024 (Approximate), Expires: 07/28/2024 [facility] Comment on above: Expected: 01/24/2024 (Approximate), Expi res: 07/28/2024 Start: 01-19-2024 Subsequent hospital visit by physician 01/19/2024 2:30 PM EST Hospital Encounter Cardiology Lab [address] [place] [address] Atypical chest pain [R07.89] Cardiology Lab Comment on above: Atypical chest pain [R07.89] Start: 01-19-2024 End: 01-19-2024 Patient encounter procedure Molecular Imaging Comment on above: Atypical chest pain [R07.89]; Coronary a therosclerosis due to lipid rich plaque [I25.83] Start: 01-12-2024 End: 01-12-2024 Patient encounter procedure 01/12/2024 3:20 PM EST Office Visit Family [facility] [place] [address] [place], [place] [phone] Jared Robertson MD [address] [place], [place] [phone] 6 month follow up [facility] [place] Comment on above: 6 month follow up Start: 01-12-2024 End: 04-12-2024 Amylase [Enzymatic activity/volume] in Serum or Plasma AMYLASE Lab Routine Epigastric pain Expected: 01/12/2024, Expires: 04/12/2024 [facility] Comment on above: Expected: 01/12/2024, Expires: Start: 01-12-2024 End: 04-12-2024 Helicobacter pylori IgG Ab [Presence] in Serum or Plasma by Immunoassay H PYLORI IGG AB Lab Routine GERD without esophagitis Expected: 01/12/2024, Expires: 04/12/2024 [facility] Comment on above: Expected: 01/12/2024, Expires: Start: 01-12-2024 End: 04-12-2024 Hepatic function 2000 panel - Serum or Plasma HEPATIC FUNCTION PNL Lab Routine Epigastric pain Expected: 01/12/2024, Expires: 04/12/2024 [facility] Comment on above: Expected: 01/12/2024, Expires: Start: 01-12-2024 End: 04-12-2024 Lipase [Enzymatic activity/volume] in Serum or Plasma LIPASE Lab Routine Epigastric pain Expected: 01/12/2024, Expires: 04/12/2024 [facility] Comment on above: Expected: 01/12/2024, Expires: Start: 12-27-2023 End: 12-27-2023 Patient encounter procedure 12/27/2023 4:00 PM EST Office Visit Podiatry [address] [place], [place] [phone] Sofia Boyce [address] [place], [place] [phone] Follow up left great toe Podiatry Comment on above: Follow up left great toe Start: 12-24-2023 End: 03-24-2024 Basic metabolic 2000 panel - Serum or Plasma BASIC METABOLIC PANEL Lab Routine Mixed hyperlipidemia Elevated fasting blood sugar Expected: 12/24/2023, Expires: 03/24/2024 [facility] Comment on above: Expected: 12/24/2023, Expires: Start: 12-24-2023 End: 03-24-2024 Hemoglobin A1c in Blood HEMOGLOBIN A1C Lab Routine Elevated fasting blood sugar Expected: 12/24/2023, Expires: 03/24/2024 [facility] Work Phone: Comment on above: Expected: 12/24/2023, Expires: Start: 12-24-2023 End: 03-24-2024 LIPID PANEL, NONFASTING LIPID PANEL, NONFASTING Lab Routine Mixed hyperlipidemia Expected: 12/24/2023, Expires: 03/24/2024 [facility] Comment on above: Expected: 12/24/2023, Expires: Start: 12-09-2023 End: 12-09-2023 Patient encounter procedure 12/09/2023 1:00 PM EDT Office Visit Podiatry [address] [place] [address] Sofia Boyce [address] [place] [address] procedure left great toe Podiatry Comment on above: procedure left great toe Start: 11-23-2023 End: 02-22-2024 CD19 ABSOLUTE COUNT [facility] Comment on above: Expected: 11/23/2023, Expires: Start: 11-23-2023 End: 02-22-2024 MAG ANTIBODY,IGM FARIDA [facility] Work Phone: Comment on above: Expected: 11/23/2023, Expires: Start: 11-23-2023 End: 11-23-2023 Patient encounter procedure Neurology Comment on above: Follow up Start: 11-16-2023 End: 11-16-2023 Patient encounter procedure 11/16/2023 10:30 AM EDT Office Visit Podiatry [address] [place] [address] Sofia Boyce [address] [place] [address] Left great toe pain, would like nail removal Podiatry Comment on above: Left great toe pain, would like nail rem oval Start: 10-21-2023 End: 10-21-2023 Patient encounter procedure 10/21/2023 10:00 AM EDT Office Visit Family [facility] [place] [address] [place] [address] Jared Robertson MD [address] [place] [address] Follow up on bowel movements [facility] [place] Comment on above: Follow up on bowel movements Start: 10-17-2023 Covid-19 Vaccine () Covid-19 Vaccine () [facility] Start: 10-17-2023 Covid-19 Vaccine ( season) Covid-19 Vaccine () [facility] Start: 10-17-2023 Influenza vaccination [facility] Start: 10-07-2023 End: 10-07-2023 Patient encounter procedure 10/07/2023 3:15 PM EDT Office Visit Podiatry [address] [place], [place] [phone] Sofia Boyce [address] [place], [place] [phone] 6 week follow up L great toe Podiatry Comment on above: 6 week follow up L great toe Start: 10-07-2023 End: 10-07-2023 Patient encounter procedure 10/07/2023 8:40 AM EDT Office Visit [facility] [address], [place] [phone] Korina Aguilar APRN.MAT[employer]ESS FINISHER [address] [place], [place] [phone] Constipation. See triage 10/05 [facility] Comment on above: Constipation. See triage 10/05 Start: 10-05-2023 End: 10-05-2023 Infusion Center 10/05/2023 8:30 AM EDT [facility] Hematology/Oncology [address] [place], [place] [id number] D15 RITUBONILLAN/MAXWELL WHARTON ORDERING/MDCR* Hematology/Oncol ogy Comment on above: D15 RITUXAN/MAXWELL WHARTON ORDERING/MD CR* Start: 10-04-2023 Hepatitis B surface antibody level LDL CHOLESTEROL [facility] Start: 09-21-2023 End: 12-21-2023 Chronic hepatitis differentiation between hepatitis B and C virus panel - Serum or Plasma [facility] Work Phone: Comment on above: Expected: 09/21/2023, Expires: Start: 09-21-2023 End: 09-21-2023 Infusion Center 09/21/2023 8:00 AM EDT Infusion Center Hematology/Oncology [address] [place] [address] Q6MO RITUBONILLAN/MAXWELL WHARTON ORDERING/MDCR* Hematology/Oncol ogy Comment on above: Q6MO RITUXAN/MAXWELL WHARTON ORDERING/M DCR* Start: 09-14-2023 End: 09-14-2023 Patient encounter procedure 09/14/2023 8:30 AM EDT Office Visit Neurology [address] [place] [address] Maxwell Wharton DO [address] [place], [place] [phone] follow up Neurology Comment on above: follow up Start: 08-24-2023 End: 08-24-2023 Patient encounter procedure 08/24/2023 3:30 PM EDT Office Visit Podiatry [address] [place] [address] Sofia Boyce [address] [place] [address] 3 wk post total nail avulsion, L hallux Podiatry Comment on above: 3 wk post total nail avulsion, L hallux Start: 08-07-2023 Subsequent hospital visit by physician 08/07/2023 1:00 PM EDT Hospital Encounter Radiology [address] [place], [place] [phone] 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 Osteo Podiatry Comment on above: Follow up nail avulsion and pos. Osteo Start: 07-29-2023 End: 01-22-2024 BETA 2 MICROGLOBULIN SERUM [facility] Comment on above: Expected: 07/29/2023 (Approximate), Expi res: 01/22/2024 Start: 07-29-2023 End: 01-22-2024 Complete blood count with white cell differential, automated CBC, EDIF, PLATELET Lab Routine Waldenstrom macroglobulinemia Expected: 07/29/2023 (Approximate), Expires: 01/22/2024 [facility] Work Phone: Comment on above: Expected: 07/29/2023 (Approximate), Expi res: 01/22/2024 Start: 07-29-2023 End: 01-22-2024 Comprehensive metabolic 2000 panel - Serum or Plasma COMPREHENSIVE METABOLIC PANEL Lab Routine Waldenstrom macroglobulinemia Expected: 07/29/2023 (Approximate), Expires: 01/22/2024 [facility] Comment on above: Expected: 07/29/2023 (Approximate), Expi res: 01/22/2024 Start: 07-29-2023 End: 01-22-2024 Lactate dehydrogenase [Enzymatic activity/volume] in Serum or Plasma LACTATE DEHYDROGENASE Lab Routine Waldenstrom macroglobulinemia Expected: 07/29/2023 (Approximate), Expires: 01/22/2024 [facility] Comment on above: Expected: 07/29/2023 (Approximate), Expi res: 01/22/2024 Start: 07-29-2023 End: 01-22-2024 MONOCLONAL PROT IMMUNO, SERUM [facility] Comment on above: Expected: 07/29/2023 (Approximate), Expi res: 01/22/2024 Start: 07-29-2023 End: 01-22-2024 VISCOSITY, [facility] Comment on above: Expected: 07/29/2023 (Approximate), Expi res: 01/22/2024 Start: 07-29-2023 End: 07-29-2023 Patient encounter procedure Division of Hematology & Oncology at [facility] Comment on above: 3 wk post total nail avulsion, L hallux Start: 07-23-2023 End: 08-07-2024 XR Toes - left 3 Views XR TOE AP/LAT/OBL LEFT Radiology Routine Cellulitis and abscess of toe of left foot 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) Ingrowing toenail of left foot Expected: 07/23/2023, Expires: 08/07/2024 [facility] Work Phone: Comment on above: Expected: 07/23/2023, Expires: Start: 07-09-2023 End: 07-09-2023 Patient encounter procedure Family [facility] Comment on above: Medicare wellness Toe Nail removal Start: 07-06-2023 End: 07-06-2023 Patient encounter procedure 07/06/2023 2:40 PM EDT Office Visit Family [facility] [address] [place] [address] Jared Robertson MD [address] [place], [place] [address] [address] follow up on left foot Family [facility] Comment on above: follow up on left foot Start: 07-02-2023 End: 10-01-2023 C reactive protein [Mass/volume] in Serum or Plasma [facility] Work Phone: Comment on above: Expected: 07/02/2023, Expires: Start: 07-02-2023 End: 07-02-2023 Patient encounter procedure 07/02/2023 11:40 AM EDT Office Visit Family [facility] [address] [facility] [place] [address] Jared Robertson MD [address] [place] [address] follow up on left big toe/foot Family [facility] Comment on above: follow up on left big toe/foot Start: 06-29-2023 End: 06-29-2023 Patient encounter procedure 06/29/2023 9:30 AM EDT Office Visit Neurology [address] [place] [address] Matthew Servin MD [address] [place] [address] Wharton 06/06 Neurology Comment on above: add on per Dr. Wharton 06/06 Start: 06-28-2023 End: 06-28-2023 Patient encounter procedure 06/28/2023 2:40 PM EDT Office Visit Family Medicine [place] [address] [place] [address] Jared Robertson MD [address] [place] [address] 1 week follow up [facility] Comment on above: 1 week follow up Start: 06-20-2023 [facility] Start: 06-17-2023 Patient discharge [facility] Start: 05-13-2023 End: 08-12-2023 Urinalysis complete panel - Urine URINALYSIS, WITH MICROSCOPIC Lab Routine Microscopic hematuria Expected: 05/13/2023, Expires: 08/12/2023 [facility] Work Phone: Comment on above: Expected: 05/13/2023, Expires: 4 Start: 04-14-2023 End: 07-14-2023 POTASSIUM BLD POTASSIUM BLD Lab Routine Hypokalemia Expected: 04/14/2023, Expires: 07/14/2023 [facility] Work Phone: Comment on above: Expected: 04/14/2023, Expires: 4 Start: 04-14-2023 End: 07-14-2023 Thyrotropin [Units/volume] in Serum or Plasma TSH BLD Lab Routine Palpitations Expected: 04/14/2023, Expires: 07/14/2023 [facility] Work Phone: Comment on above: Expected: 04/14/2023, Expires: 4 Start: 04-06-2023 COVID-19 VACCINE (4 - Booster for Pfizer series) COVID-19 VACCINE (4 - Booster for Pfizer series) [facility] Comment on above: Postponed from 01/05/2021 (Declined at t his time) Start: 04-06-2023 COVID-19 VACCINE (4 - Pfizer risk series) COVID-19 VACCINE (4 - Pfizer risk series) [facility] Comment on above: Postponed from 01/05/2021 (Declined at t his time) Start: 04-06-2023 Hepatitis B surface antibody level LDL CHOLESTEROL [facility] Start: 04-06-2023 SHINGRIX VACCINE (1 of 2) SHINGRIX VACCINE (1 of 2) [facility] Comment on above: Postponed from 11/20/1959 (Insurance Cov erage) Start: 04-06-2023 Urine microalbumin profile [facility] Comment on above: Postponed from 10/31/2020 (Insurance Cov erage) Start: 03-19-2023 End: 06-18-2023 GANGLIOSIDE ANTIBODIES GANGLIOSIDE ANTIBODIES Lab Routine Neuropathy Expected: 03/19/2023, Expires: 06/18/2023 [facility] Work Phone: Comment on above: Expected: 03/19/2023, Expires: 4 Start: 03-19-2023 End: 06-18-2023 IMMUNOFIXATION SCREEN, SERUM IMMUNOFIXATION SCREEN, SERUM Lab Routine Neuropathy Expected: 03/19/2023, Expires: 06/18/2023 [facility] Work Phone: Comment on above: Expected: 03/19/2023, Expires: 4 Start: 03-19-2023 End: 06-18-2023 KAPPA/CHUN,FREE,SER KAPPA/CHUN,FREE,SER Lab Routine Neuropathy Expected: 03/19/2023, Expires: 06/18/2023 [facility] Work Phone: Comment on above: Expected: 03/19/2023, Expires: 4 Start: 03-19-2023 End: 06-18-2023 MAG ANTIBODY,IGM FARIDA MAG ANTIBODY,IGM FARIDA Lab Routine Neuropathy Expected: 03/19/2023, Expires: 06/18/2023 [facility] Work Phone: Comment on above: Expected: 03/19/2023, Expires: 4 Start: 03-19-2023 End: 06-18-2023 MISC SEND OUT TST 1 MISC SEND OUT TST 1 Lab Routine Neuropathy Expected: 03/19/2023, Expires: 06/18/2023 [facility] Work Phone: Comment on above: Expected: 03/19/2023, Expires: 4 Start: 03-19-2023 End: 06-18-2023 PROTEIN ELECTROPHORESIS SERUM W/INTERP PROTEIN ELECTROPHORESIS SERUM W/INTERP Lab Routine Neuropathy Expected: 03/19/2023, Expires: 06/18/2023 [facility] Work Phone: Comment on above: Expected: 03/19/2023, Expires: 4 Start: 03-19-2023 End: 06-18-2023 VASC ENDO GROWTH FACTOR VASC ENDO GROWTH FACTOR Lab Routine Neuropathy Expected: 03/19/2023, Expires: 06/18/2023 [facility] Work Phone: Comment on above: Expected: 03/19/2023, Expires: 4 Start: 02-15-2023 Advance Directive Discussion Advance Directive Discussion [facility] Start: 02-15-2023 Behavioral Health Screening Behavioral Health Screening [facility] Start: 02-15-2023 Depression Assessment Depression Assessment [facility] Start: 10-27-2022 End: 12-27-2022 Comprehensive metabolic 2000 panel - Serum or Plasma [facility] Work Phone: Comment on above: Expected: 10/27/2022, Expires: 3 Start: 10-16-2022 Covid-19 Vaccine () Covid-19 Vaccine () [facility] Start: 10-16-2022 Influenza vaccination [facility] Start: 09-26-2022 ANNUAL PCP TEAM CHRONIC DISEASE VISIT ANNUAL PCP TEAM CHRONIC DISEASE VISIT [facility] Start: 09-25-2022 End: 11-25-2022 Basic metabolic 2000 panel - Serum or Plasma BASIC METABOLIC PNL Lab Routine Mixed hyperlipidemia Elevated fasting blood sugar Expected: 09/25/2022, Expires: 11/25/2022 [facility] Work Phone: Comment on above: Expected: 09/25/2022, Expires: 3 Start: 09-25-2022 End: 11-25-2022 Hemoglobin A1c in Blood HGB A1C Lab Routine Elevated fasting blood sugar Expected: 09/25/2022, Expires: 11/25/2022 [facility] Work Phone: Comment on above: Expected: 09/25/2022, Expires: 3 Start: 09-25-2022 End: 11-25-2022 LIPID PANEL, NONFASTING LIPID PANEL, NONFASTING Lab Routine Mixed hyperlipidemia Bilateral carotid artery stenosis Subclavian artery stenosis, right (HCC) 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 Abdominal aortic aneurysm (AAA) without rupture, unspecified part (HCC) Expected: 09/25/2022, Expires: 11/25/2022 [facility] Work Phone: Comment on above: Expected: 09/25/2022, Expires: 3 Start: 09-23-2022 Hepatitis B surface antibody level LDL CHOLESTEROL [facility] Start: 09-09-2022 ANNUAL PCP TEAM CHRONIC DISEASE VISIT ANNUAL PCP TEAM CHRONIC DISEASE VISIT [facility] Start: 09-01-2022 Patient discharge [facility] Start: 08-31-2022 End: 09-01-2022 Referral to service [facility] Start: 08-31-2022 Assessment of risk of venous thromboembolism [facility] Start: 08-31-2022 Cardiac monitoring [facility] Start: 08-31-2022 Catheterization of vein [facility] Start: 08-31-2022 Continuous pulse oximetry [facility] Start: 08-31-2022 Elevation of head of bed [facility] Start: 08-31-2022 Exercises [facility] Start: 08-31-2022 Implementation of planned interventions [facility] Start: 08-31-2022 Insertion of catheter into peripheral vein [facility] Start: 08-31-2022 Measuring intake and output [facility] Start: 08-31-2022 Notification of physician [facility] Start: 08-31-2022 Oxygen therapy [facility] Start: 08-31-2022 Providing care according to standard [facility] Start: 08-31-2022 Provision of activity privileges [facility] Start: 08-31-2022 Referral to occupational therapist [facility] Start: 08-31-2022 Tobacco use cessation education [facility] Start: 08-31-2022 [facility] Start: 08-31-2022 Following clinical pathway protocol [facility] Start: 08-31-2022 Troponin I measurement [facility] Start: 08-31-2022 Verification routine [facility] Start: 08-31-2022 Admission procedure [facility] Start: 08-31-2022 Oxygen therapy [facility] Start: 08-31-2022 [facility] Start: 08-11-2022 ANNUAL PCP TEAM CHRONIC DISEASE VISIT ANNUAL PCP TEAM CHRONIC DISEASE VISIT [facility] Start: 07-31-2022 End: 07-31-2022 Patient encounter procedure 07/31/2022 Office Visit Hematology Suzette Aguilar MD [address] [place] [id number] Division of Hematology & Oncology Start: 06-13-2022 SHINGRIX VACCINE (2 of 2) SHINGRIX VACCINE (2 of 2) [facility] Start: 06-05-2022 Colonoscopy flx dx w/collj spec when pfrmd DIAGNOSTIC COLONOSCOPY [facility] Start: 06-05-2022 Patient discharge [facility] Start: 03-29-2022 ANNUAL PCP TEAM CHRONIC DISEASE VISIT ANNUAL PCP TEAM CHRONIC DISEASE VISIT [facility] Start: 03-29-2022 SHINGRIX VACCINE (1 of 2) SHINGRIX VACCINE (1 of 2) [facility] Comment on above: Postponed from 1990 (Insurance Cov erage) Postponed from 11/19 (Insurance Coverage) Start: 03-29-2022 Urine microalbumin profile DTAP,TDAP,TD (2 - Td or Tdap) [facility] Comment on above: Postponed from 10/31/2020 (Insurance Cov erage) Start: 03-23-2022 Patient discharge [facility] Start: 03-23-2022 Anes intraperitoneal upper abdomen w/laps nos ANESTH SURG UPPER ABDOMEN [facility] Start: 03-23-2022 End: 05-23-2022 CBC W Auto Differential panel - Blood CBC + DIFF Lab Routine Thrombocytopenia (HCC) Expected: 03/23/2022, Expires: 05/23/2022 [facility] Work Phone: Comment on above: Expected: 03/23/2022, Expires: 3 Start: 03-23-2022 End: 05-23-2022 Comprehensive metabolic 2000 panel - Serum or Plasma COMP METABOLIC PANEL Lab Routine Abdominal aortic aneurysm (AAA) without rupture (HCC) Expected: 03/23/2022, Expires: 05/23/2022 [facility] Work Phone: Comment on above: Expected: 03/23/2022, Expires: 3 Start: 03-23-2022 Esophagogastroduodenoscopy transoral diagnostic EGD DIAGNOSTIC BRUSH WASH [facility] Start: 03-23-2022 End: 05-23-2022 Hemoglobin A1c in Blood HGB A1C Lab Routine Elevated fasting blood sugar Expected: 03/23/2022, Expires: 05/23/2022 [facility] Work Phone: Comment on above: Expected: 03/23/2022, Expires: 3 Start: 03-23-2022 Laps rpr paraesphgl hrna incl fundplsty w/o mesh LAP PARAESOPHAG RENÉE REPAIR [facility] Start: 03-23-2022 End: 05-23-2022 LIPID PANEL, NONFASTING LIPID PANEL, NONFASTING Lab Routine Abdominal aortic aneurysm (AAA) without rupture (HCC) 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 Mixed hyperlipidemia Expected: 03/23/2022, Expires: 05/23/2022 [facility] Work Phone: Comment on above: Expected: 03/23/2022, Expires: 3 Start: 03-23-2022 End: 05-23-2022 Magnesium [Mass/volume] in Serum or Plasma MAGNESIUM BLD Lab Routine 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 Medication management Expected: 03/23/2022, Expires: 05/23/2022 [facility] Work Phone: Comment on above: Expected: 03/23/2022, Expires: 3 Start: 03-23-2022 End: 05-23-2022 Prostate specific Ag [Mass/volume] in Serum or Plasma PSA/PROSTSPECAG DIAG Lab Routine Disorder of prostate Expected: 03/23/2022, Expires: 05/23/2022 [facility] Work Phone: Comment on above: Expected: 03/23/2022, Expires: 3 Start: 03-23-2022 End: 05-23-2022 Urinalysis complete panel - Urine URINALYSIS, WITH MICROSCOPIC Lab Routine Elevated fasting blood sugar Expected: 03/23/2022, Expires: 05/23/2022 [facility] Work Phone: Comment on above: Expected: 03/23/2022, Expires: 3 Start: 03-23-2022 Deep breathing and coughing exercises [facility] Start: 03-23-2022 Incentive spirometry [facility] Start: 03-23-2022 Medication education [facility] Start: 03-23-2022 [facility] [facility] Start: 03-23-2022 Provision of activity privileges [facility] Start: 03-23-2022 Taking patient vital signs [facility] Start: 03-23-2022 Vital signs measurements [facility] Start: 03-23-2022 [facility] Start: 03-23-2022 Admission procedure [facility] Start: 03-18-2022 Hepatitis B surface antibody level LDL CHOLESTEROL [facility] Start: 02-15-2022 ADVANCE DIRECTIVE DISCUSSION ADVANCE DIRECTIVE DISCUSSION [facility] Start: 02-15-2022 DEPRESSION ASSESSMENT DEPRESSION ASSESSMENT [facility] Start: 02-14-2022 ADVANCE DIRECTIVE DISCUSSION ADVANCE DIRECTIVE DISCUSSION [facility] Comment on above: Postponed from 02/15/2021 (Declined at t his time) Start: 01-30-2022 End: 01-30-2022 Patient encounter procedure 01/30/2022 Office Visit Hematology Suzette Aguilar MD [address] [place] [address] Division of Hematology & Oncology Start: 12-25-2021 Patient referral [facility] Work Phone: Start: 11-25-2021 Colonoscopy w/biopsy single/multiple COLONOSCOPY AND BIOPSY [facility] Start: 11-25-2021 Egd insert guide wire dilator passage esophagus EGD GUIDE WIRE INSERTION [facility] Start: 11-25-2021 Egd transoral biopsy single/multiple EGD BIOPSY SINGLE/MULTIPLE [facility] Start: 11-25-2021 Patient discharge [facility] Start: 10-16-2021 Influenza vaccination [facility] Start: 08-05-2021 Patient discharge [facility] Work Phone: Start: 08-05-2021 Referral to service [facility] Work Phone: Start: 08-05-2021 Following clinical pathway protocol [facility] Work Phone: Start: 08-04-2021 Assessment of risk of venous thromboembolism [facility] Work Phone: Start: 08-04-2021 Insertion of catheter into peripheral vein [facility] Work Phone: Start: 08-04-2021 Providing care according to standard [facility] Work Phone: Start: 08-04-2021 Provision of activity privileges [facility] Work Phone: Start: 08-04-2021 [facility] Work Phone: Start: 08-04-2021 Admission procedure [facility] Work Phone: Start: 08-04-2021 Verification routine [facility] Work Phone: Start: 03-13-2021 End: 03-13-2021 Patient encounter procedure 03/13/2021 Office Visit Hematology Suzette Aguilar MD [address] [place] [address] Division of Hematology & Oncology Start: 02-15-2021 DEPRESSION ASSESSMENT DEPRESSION ASSESSMENT [facility] Start: 02-09-2021 COVID-19 VACCINE (4 - Booster for Pfizer series) COVID-19 VACCINE (4 - Booster for Pfizer series) [facility] Start: 02-02-2021 COVID-19 VACCINE (4 - Booster for Pfizer series) COVID-19 VACCINE (4 - Booster for Pfizer series) [facility] Start: 01-05-2021 COVID-19 VACCINE (4 - Booster for Pfizer series) COVID-19 VACCINE (4 - Booster for Pfizer series) [facility] Start: 10-31-2020 Tetanus vaccination TETANUS [facility] Start: 10-31-2020 Urine microalbumin profile DTaP,Tdap,Td Vaccine (2 - Td or Tdap) [facility] Start: 10-16-2020 Influenza vaccination INFLUENZA VACCINE (#1) [facility] Start: 11-20-2015 RSV Vaccine (1 - 1-dose 75+ series) RSV Vaccine (1 - 1-dose 75+ series) [facility] Start: 02-03-2014 Colonoscopy COLONOSCOPY [facility] Start: 02-03-2014 Screening for malignant neoplasm of colon COLONOSCOPY [facility] Start: 2005 Pneumococcal vaccination PNEUMOCOCCAL VACCINE SERIES (1 of 2 - PCV13) [facility] Start: 2000 RSV Vaccine (1 - 1-dose 60+ series) RSV Vaccine (1 - 1-dose 60+ series) [facility] Start: 1990 Zoster vaccine hzv live for subcutaneous use ZOSTER (SHINGLES) VACCINE (1 of 2) [facility] Start: 11-20-1959 Third diphtheria, tetanus and acellular pertussis (DTaP) vaccination TDAP (ADULT) [facility] Start: 11-20-1959 Zoster vaccine hzv live for subcutaneous use ZOSTER (SHINGLES) VACCINE (1 of 2) [facility] Start: 1958 Tetanus vaccination TETANUS [facility] Start: 1946 Pneumococcal vaccination PNEUMOCOCCAL VACCINE SERIES (1 - PCV) [facility] Bacteria identified in Wound by Culture ABSCESS AND WOUND CULTURE WITH GRAM STAIN Microbiology Routine Cellulitis and abscess of toe of left foot 07/06/2023 12:35 PM EDT [facility] Work Phone: Bacteria identified in Wound by Culture ABSCESS AND WOUND CULTURE WITH GRAM STAIN Microbiology Routine Cellulitis and abscess of toe of left foot 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) Ingrowing toenail of left foot 07/09/2023 11:40 AM EDT [facility] BETA 2 MICROGLOBULIN SERUM BETA 2 MICROGLOBULIN SERUM Lab Routine Waldenstrom macroglobulinemia 01/21/2023 11:45 AM EST [facility] BETA 2 MICROGLOBULIN SERUM BETA 2 MICROGLOBULIN SERUM Lab Routine Waldenstrom macroglobulinemia 03/17/2024 9:57 AM EST [facility] Colonoscopy [facility] Work Phone: Colonoscopy [facility] End: 09-12-2021 Complete blood count with white cell differential, automated [facility] Work Phone: Comment on above: 20 Occurrences starting 09/12/2020 until 09/12/2021, 1 completed End: 09-12-2021 Comprehensive metabolic 2000 panel - Serum or Plasma COMPREHENSIVE METABOLIC PANEL Lab Routine Waldenstrom macroglobulinemia 20 Occurrences starting 09/12/2020 until 09/12/2021, 1 completed [facility] Comment on above: 20 Occurrences starting 09/12/2020 until 09/12/2021, 1 completed End: 10-12-2025 CT Abdomen W contrast IV CT ABDOMEN W IVCON Radiology Routine LUQ pain 1 Occurrences starting 09/12/2024 until 10/12/2025 [facility] Work Phone: Comment on above: 1 Occurrences starting 09/12/2024 until 10/12/2025 End: 02-10-2025 CTA Abdominal, Pelvis and Lower extremity vessels W contrast IV CTA ABD/PEL LOWER EXTREM WO/W IVCON Radiology Routine Right inguinal pain Abdominal aortic aneurysm (AAA) without rupture, unspecified part (HCC) 1 Occurrences starting 01/12/2024 until 02/10/2025 [facility] Comment on above: 1 Occurrences starting 01/12/2024 until 02/10/2025 ECG COMPLETE ECG COMPLETE ECG Routine Atypical chest pain Ordered: 01/12/2024 [facility] Work Phone: Comment on above: Ordered: 01/12/2024 End: 04-14-2024 Echocardiography ECHO Cardiology Routine Palpitations 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 1 Occurrences starting 04/14/2023 until 04/14/2024 [facility] Work Phone: Comment on above: 1 Occurrences starting 04/14/2023 until 04/14/2024 Electrocardiographic procedure [facility] Hepatitis B virus co re Ab [Presence] in Serum HEPATITIS B CORE ANTIBODY TOTAL Lab Routine 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 09/21/2023 8:02 AM EDT [facility] Hepatitis B virus antunez rface Ab [Presence] in Serum HEPATITIS B SURFACE ANTIBODY Lab Routine 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 09/21/2023 8:02 AM EDT [facility] Hepatitis B virus antunez rface Ag [Presence] in Serum HEPATITIS B SURFACE ANTIGEN Lab Routine 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 09/21/2023 8:02 AM EDT [facility] Hepatitis C virus Ab [Presence] in Serum HEPATITIS C ANTIBODY IA WITH CONFIRMATION Lab Routine 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 09/21/2023 8:02 AM EDT [facility] IMMUNOFIXATION SERUM IMMUNOFIXAT ION SERUM Lab Routine Waldenstrom macroglobulinemia 09/12/2020 1:45 PM EDT [facility] IMMUNOFIXATION SERUM IMMUNOFIXAT ION SERUM Lab Routine Waldenstrom macroglobulinemia 08/01/2021 9:24 AM EDT [facility] IMMUNOFIXATION SERUM IMMUNOFIXAT ION SERUM Lab Routine Waldenstrom macroglobulinemia 01/30/2022 10:21 AM EST [facility] IMMUNOFIXATION SERUM IMMUNOFIXAT ION SERUM Lab Routine Waldenstrom macroglobulinemia 01/21/2023 11:45 AM EST [facility] IMMUNOFIXATION SERUM IMMUNOFIXAT ION SERUM Lab Routine Waldenstrom macroglobulinemia 07/29/2023 11:09 AM EDT [facility] IMMUNOFIXATION SERUM IMMUNOFIXAT ION SERUM Lab Routine Waldenstrom macroglobulinemia 03/17/2024 9:57 AM EST [facility] End: 09-12-2021 IMMUNOGLOBULINS IGG IGA IGM IMMUNOGLOBULINS IGG IGA IGM Lab Routine Waldenstrom macroglobulinemia 20 Occurrences starting 09/12/2020 until 09/12/2021, 1 completed [facility] Comment on above: 20 Occurrences starting 09/12/2020 until 09/12/2021, 1 completed [employer] MONIT[employer] KIN Jomar [employer] MON[employer] Cardiology Routine Palpitations 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 First degree heart block Ordered: 04/14/2023 [facility] Work Phone: Comment on above: Ordered: 04/14/2023 End: 09-12-2021 Lactate dehydrogenase [Enzymatic activity/volume] in Serum or Plasma LACTATE DEHYDROGENASE Lab Routine Waldenstrom macroglobulinemia 20 Occurrences starting 09/12/2020 until 09/12/2021, 1 completed [facility] Comment on above: 20 Occurrences starting 09/12/2020 until 09/12/2021, 1 completed End: 09-12-2021 MONOCLONAL PROT IMMUNO, SERUM MONOCLONAL PROT IMMUNO, SERUM Lab Routine Waldenstrom macroglobulinemia 20 Occurrences starting 09/12/2020 until 09/12/2021 [facility] Comment on above: 20 Occurrences starting 09/12/2020 until 09/12/2021 MONOCLONAL PROT IMMUNO, SERUM MO NOCLONAL PROT IMMUNO, SERUM Lab Routine Waldenstrom macroglobulinemia 09/12/2020 1:45 PM EDT [facility] MONOCLONAL PROT IMMUNO, SERUM MO NOCLONAL PROT IMMUNO, SERUM Lab Routine Waldenstrom macroglobulinemia 08/01/2021 9:24 AM EDT [facility] Work Phone: MONOCLONAL PROT IMMUNO, SERUM MO NOCLONAL PROT IMMUNO, SERUM Lab Routine Waldenstrom macroglobulinemia 01/30/2022 10:21 AM EST [facility] MONOCLONAL PROT IMMUNO, SERUM MO NOCLONAL PROT IMMUNO, SERUM Lab Routine Waldenstrom macroglobulinemia 01/21/2023 11:45 AM [facility] MONOCLONAL PROT IMMUNO, SERUM MO NOCLONAL PROT IMMUNO, SERUM Lab Routine Waldenstrom macroglobulinemia 03/17/2024 9:57 AM [facility] End: 08-05-2024 MR Foot - left WO contrast MRI FOOT/TOES WO IVCON LEFT Radiology STAT 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) 1 Occurrences starting 07/07/2023 until 08/05/2024 [facility] Work Phone: Comment on above: 1 Occurrences starting 07/07/2023 until 08/05/2024 End: 09-04-2024 MR Foot - left WO contrast MRI FOOT/TOES WO IVCON LEFT Radiology STAT 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) 1 Occurrences starting 08/06/2023 until 09/04/2024 [facility] Work Phone: Comment on above: 1 Occurrences starting 08/06/2023 until 09/04/2024 End: 02-08-2024 Mri brain brain stem w/o w/contrast material MRI BRAIN WO/W IVCON Radiology Routine Unsteady gait 1 Occurrences starting 01/09/2023 until 02/08/2024 [facility] Work Phone: Comment on above: 1 Occurrences starting 01/09/2023 until 02/08/2024 End: 02-10-2025 NM Heart Perfusion W multiple states of exercise NM CARDIAC PERF STRESS/EXERCISE Radiology Routine Atypical chest pain 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 1 Occurrences starting 01/12/2024 until 02/10/2025 [facility] Comment on above: 1 Occurrences starting 01/12/2024 until 02/10/2025 End: 01-19-2024 NM Heart Perfusion W multiple states of exercise [facility] Work Phone: Comment on above: 1 Occurrences starting 01/19/2024 until 01/19/2024 End: 02-17-2025 NM Heart Perfusion W multiple states of exercise NM CARDIAC PERF STRESS/EXERCISE Radiology Routine Atypical chest pain 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 1 Occurrences starting 01/19/2024 until 02/17/2025 [facility] Work Phone: Comment on above: 1 Occurrences starting 01/19/2024 until 02/17/2025 End: 05-13-2024 NM Heart Perfusion W stress and W radionuclide IV NM CARDIAC PERF STRESS/PHARM Radiology Routine Encounter for screening for cardiovascular disorders 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 (CODE) 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 First degree heart block 1 Occurrences starting 04/14/2023 until 05/13/2024 [facility] Work Phone: Comment on above: 1 Occurrences starting 04/14/2023 until 05/13/2024 Patient Education ED Cellulitis [facility] Work Phone: Patient referral [facility] Work Phone: Protein electrophoresis PROTEIN ELECTROPHORESIS Lab Routine Waldenstrom macroglobulinemia 09/12/2020 1:45 PM EDT [facility] Protein electrophoresis PROTEIN ELECTROPHORESIS Lab Routine [place]denstrom macroglobulinemia 08/01/2021 9:24 AM EDT [facility] Protein electrophoresis PROTEIN ELECTROPHORESIS Lab Routine Waldenstrom macroglobulinemia 01/30/2022 10:21 AM EST [facility] Protein electrophoresis PROTEIN ELECTROPHORESIS Lab Routine Waldenstrom macroglobulinemia 01/21/2023 11:45 AM EST [facility] Protein electrophoresis PROTEIN ELECTROPHORESIS Lab Routine Waldenstrom macroglobulinemia 07/29/2023 11:09 AM EDT [facility] Protein electrophoresis PROTEIN ELECTROPHORESIS Lab Routine Waldenstrom macroglobulinemia 03/17/2024 9:57 AM EST [facility] PT PLAN OF CARE CERTIFICATION PT PLAN OF CARE CERTIFICATION Procedures Routine Chronic low back pain without sciatica, unspecified back pain laterality Balance problem Ordered: 06/05/2021 [facility] Work Phone: Comment on above: Ordered: 06/05/2021 PT PLAN OF CARE CERTIFICATION PT PLAN OF CARE CERTIFICATION Procedures Routine Chronic low back pain without sciatica, unspecified back pain laterality Balance problem Ordered: 07/17/2021 [facility] Work Phone: Comment on above: Ordered: 07/17/2021 PT PLAN OF CARE CERTIFICATION PT PLAN OF CARE CERTIFICATION Procedures Routine Chronic low back pain without sciatica, unspecified back pain laterality Balance problem Ordered: 08/22/2021 [facility] Work Phone: Comment on above: Ordered: 08/22/2021 TCCP - GOLD TCCP - GOLD Lab Routine Examination of participant in clinical trial 09/12/2020 1:45 PM EDT [facility] TCCP - LAV TCCP - LAV Lab R outine Examination of participant in clinical trial 09/12/2020 1:45 PM [facility] TOTAL CANCER CARE AL OTOCOL (FABIEN ONLY) TOTAL CANCER CARE PROTOCOL (FABIEN ONLY) Lab Routine Examination of participant in clinical trial 09/12/2020 1:45 PM EDT [facility] Work Phone: End: 12-09-2022 US ABD AORTA COMPLETE VAS LAB US ABD AORTA COMPLETE VAS LAB Vascular Lab Routine Abdominal aortic aneurysm (AAA) without rupture 1 Occurrences starting 12/09/2021 until 12/09/2022 [facility] Work Phone: Comment on above: 1 Occurrences starting 12/09/2021 until 12/09/2022 End: 09-29-2025 US Abdomen US ABDOMEN COMPLETE Radiology Routine LUQ pain 1 Occurrences starting 08/30/2024 until 09/29/2025 [facility] Comment on above: 1 Occurrences starting 08/30/2024 until 09/29/2025 US Abdomen US ABDOMEN COMPL ETE Radiology Routine LUQ pain 09/07/2024 10:23 AM EDT [facility] Work Phone: End: 12-09-2022 US CAROTID ARTERIES DIO VAS LAB US CAROTID ARTERIES BI L VAS LAB Vascular Lab Routine Subclavian artery stenosis, right (HCC) Bilateral carotid artery stenosis 1 Occurrences starting 12/09/2021 until 12/09/2022 [facility] Work Phone: Comment on above: 1 Occurrences starting 12/09/2021 until 12/09/2022 End: 09-12-2021 VISCOSITY, SERUM VISCOSITY, SERUM Lab Routine Waldenstrom macroglobulinemia 20 Occurrences starting 09/12/2020 until 09/12/2021 [facility] Comment on above: 20 Occurrences starting 09/12/2020 until 09/12/2021 VISCOSITY, SERUM VISCOSITY, SERU M Lab Routine Waldenstrom macroglobulinemia 09/12/2020 1:45 PM EDT [facility] VISCOSITY, SERUM VISCOSITY, SERU M Lab Routine Waldenstrom macroglobulinemia 01/30/2022 10:21 AM [facility] Work Phone: VISCOSITY, SERUM VISCOSITY, SERU M Lab Routine Waldenstrom macroglobulinemia 01/21/2023 11:45 AM [facility] VISCOSITY, SERUM VISCOSITY, SERU M Lab Routine Waldenstrom macroglobulinemia 03/17/2024 9:57 AM [facility] Work Phone: XR Abdomen GE 3 View s AP and Oblique and Cone XR ABDOMEN 3V KUB W/OBLIQUES Radiology Routine Constipation, unspecified constipation type 10/06/2023 3:01 PM EDT [facility] Work Phone: XR Foot - left AP an d Lateral and oblique XR FOOT GENERAL 3V AP/LAT/OBL LEFT Radiology Routine Pain in left foot 04/12/2024 4:06 PM EST [facility] Work Phone: End: 05-12-2025 XR Foot - left AP and Lateral and oblique XR FOOT GENERAL 3V AP/LAT/OBL LEFT Radiology Routine Pain in left foot 1 Occurrences starting 04/12/2024 until 05/12/2025 [facility] Work Phone: Comment on above: 1 Occurrences starting 04/12/2024 until 05/12/2025 XR Toes - left 3 Views XR TOE AP /LAT/OBL LEFT Radiology Routine 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) 10/07/2023 4:31 PM EDT [facility] Work Phone: End: 11-05-2024 XR Toes - left 3 Views XR TOE AP/LAT/OBL LEFT Radiology Routine 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) 1 Occurrences starting 10/07/2023 until 11/05/2024 [facility] Work Phone: Comment on above: 1 Occurrences starting 10/07/2023 until 11/05/20[facility] Immunizations Immunization Date Immunization Notes Care Provider Tee douglas 11-27-2023 Seasonal trivalent influenza vaccine, adjuvanted, preservative free Sofia Boyce Work Phone: [facility] 11-27-2023 influenza virus vacc ine, unspecified formulation Treatment Wstr Work Phone: [facility] 01-09-2023 influenza (HD-IIV4) vaccine, age 65+ yr, high dose, quadrivalent, PF (FLUZONE HIGH-DOSE) Kevin Copeland MD Work Phone: [facility] 01-09-2023 influenza virus vacc ine, unspecified formulation Maxwell Wharton DO Work Phone: [facility] 06-29-2022 zoster vaccine recombinant Sabi To PA-C Work Phone: [facility] 04-18-2022 zoster vaccine recombinant Jared Robertson MD Work Phone: [facility] 12-16-2021 influenza, high dose seasonal, preservative-free Jared Robertson MD Work Phone: [facility] 12-16-2021 influenza virus vacc ine, unspecified formulation Jared Robertson MD Work Phone: [facility] 03-29-2021 pneumococcal polysaccharide vaccine, 23 valent Raymundo Hsu PT Work Phone: [facility] 11-30-2020 influenza nasal, unspecified formulation Sofia Boyce Work Phone: [facility] 11-30-2020 influenza, high dose seasonal, preservative-free Dr. aJred Robertson Work Phone: [facility] 11-30-2020 influenza, high-dose , quadrivalent vaccine (FLUZONE HIGH DOSE QUADRIVALENT) Raymundo Hsu PT Work Phone: [facility] 11-30-2020 influenza virus vacc ine, unspecified formulation Suzette Aguilar MD Work Phone: [facility] 11-10-2020 Covid (Pfizer) Dr. Jared puentes Work Phone: [facility] 04-10-2020 Covid (Pfizer) Dr. Jared puentes Work Phone: [facility] 03-22-2020 Covid (Pfizer) Dr. Jared puentes Work Phone: [facility] 12-17-2019 influenza, high dose seasonal, preservative-free Raymundo Hsu PT Work Phone: [facility] 11-25-2018 influenza, high dose seasonal, preservative-free Raymundo Hsu PT Work Phone: [facility] 01-22-2018 Seasonal trivalent influenza vaccine, adjuvanted, preservative free Raymundo Hsu PT Work Phone: [facility] 12-13-2016 influenza nasal, unspecified formulation CORNELL Archer PA-C Work Phone: [facility] 12-13-2016 influenza, high dose seasonal, preservative-free Raymundo Hsu PT Work Phone: [facility] 01-26-2016 influenza, injectabl e, quadrivalent, contains preservative Raymundo Hsu PT Work Phone: [facility] 10-23-2015 pneumococcal conjuga te vaccine, 13 valent Raymundo Hsu PT Work Phone: [facility] Work Phone: 11-23-2014 influenza, high dose seasonal, preservative-free Raymundo Hsu PT Work Phone: [facility] 11-23-2014 pneumococcal conjuga te vaccine, 13 valent Raymundo Hsu PT Work Phone: [facility] 11-30-2012 influenza nasal, unspecified formulation Raymundo Hsu PT Work Phone: [facility] 11-30-2012 influenza virus vacc ine, unspecified formulation Suzette Aguilar MD Work Phone: [facility] 04-20-2012 pneumococcal polysaccharide vaccine, 23 valent Raymundo Hsu PT Work Phone: [facility] 10-31-2010 tetanus toxoid, redu rodolfo diphtheria toxoid, and acellular pertussis vaccine, adsorbed Raymundo Hsu PT Work Phone: [facility] 02-13-2009 novel influenza-H1N1 -09, preservative-free, injectable NA Gianni ORTEGA Work Phone: [facility] 12-19-2005 influenza virus vacc ine, unspecified formulation Raymundo Hsu PT Work Phone: [facility] Work Phone: Payers Date Payer Category Payer Self-pay [id number] 2010 Private Health Insurance [id number] 2010 Unknown [id number] 2010 Unknown AARP AARP xxxxxx [id number] 2010-Present [address] [place] [address] [id number] 2010 Unknown [id number] 2005 Medicare [id number] 2005 Medicare [id number] 2005 Medicare [id number] 1940 Unknown [id number] 1940 Unknown [id number] 94 Medicare [id number] Unknown [id number] 62 Unknown [id number] 62 Unknown [id number] 62 Unknown [id number] 62 Unknown [id number] 62 Unknown [id number] 62 Unknown [id number] Unknown [id number] Social History Date Type Detail Facility Start: 08-26-2012 End: 10-21-2023 Tobacco smoking status [facility] Former smoker [facility] Start: 08-26-2012 Tobacco use and exposure Former user [facility] End: 02-15-1979 History of tobacco use User of smokeless tobacco [facility] Start: 07-16-2015 End: 10-19-2024 Alcohol intake Current drinker of alcohol (finding) [facility] Start: 07-16-2015 End: 10-05-2022 Alcohol intake [facility] Start: 08-26-2012 Alcohol Comment has several drinks/w [place] [facility] Start: 1940 Sex Assigned At Not on file O [facility] Start: 09-12-2020 End: 12-09-2021 Exposure to SARS-CoV-2 (event) Not sure [facility] Start: 02-15-1966 End: 02-15-1974 History of tobacco use Current smoker [facility] Start: 02-29-2020 End: 09-09-2021 History SDOH Alcohol Frequency 4 [facility] Start: 02-29-2020 End: 09-09-2021 History SDOH Alcohol Std Drinks 1 [facility] Start: 02-29-2020 End: 09-09-2021 History SDOH Social Connections Phone 5 [facility] Start: 02-29-2020 End: 09-09-2021 History SDOH Social Connections Get Together 2 [facility] Start: 02-29-2020 History SDOH Social Connections Anglican 98 [facility] Start: 02-29-2020 End: 09-09-2021 History SDOH Social Connections Meetings 3 [facility] Start: 02-29-2020 End: 09-09-2021 History SDOH Social Connections Living 8 [facility] Start: 02-28-2020 Education 19 [facility] Start: 03-15-2012 End: 09-26-2021 Tobacco Comment NO EXPOSURE TO 2ND HAND SMOKE [facility] Start: 08-04-2021 End: 06-20-2023 Tobacco smoking status NHIS Unknown if ever smoked [facility] Start: 02-09-2013 Occasional [facility] Start: 02-09-2013 None [facility] Start: 02-09-2013 Spouse/ Signif icant Other [facility] Start: 02-09-2013 Non-smoker [facility] Start: 1940 Sex Assigned At Male W [facility] Start: 09-09-2021 History SDOH Physica l Activity MPS 6 [facility] Start: 02-15-1966 End: 02-15-1974 History of tobacco use Cigarette Smoker [facility] Start: 09-26-2021 End: 10-21-2023 Tobacco use and exposure Smokeless tobacco non-user [facility] Start: 09-16-2021 End: 09-26-2021 Exposure to SARS-CoV-2 (event) Yes [facility] Start: 01-20-2022 End: 01-30-2022 Exposure to SARS-CoV-2 (event) Unable to assess [facility] Start: 09-09-2021 End: 10-05-2022 Social connection and isolation panel [facility] Start: 01-17-2012 Attends [employer] Not on file [facility] Are you now , , , , never or living with a partner? Living with partner [facility] How many standard drinks containing alcohol do you have on a typical day? 1 or 2 [facility] How often do you hav e 6 or more drinks on 1 occasion? Never [facility] Do you feel stress - tense, restless, nervous, or anxious, or unable to sleep at night because your mind is troubled all the time - these days [OSQ] To some extent [facility] (I/We) worried erik er (my/our) food would run out before (I/we) got money to buy more. Never true [facility] In the past 12 month s, was there a time when you were not able to pay the mortgage or rent on time? No [facility] Gender identity Identifies as ma le gender (finding) [facility] How often to you hav e a drink containing alcohol? 2-3 time sa week [facility] How hard is it for y ou to pay for the very basics like food, housing, medical care, and heating Not very hard [facility] Do you feel stress - tense, restless, nervous, or anxious, or unable to sleep at night because your mind is troubled all the time - these days [OSQ] Only a little [facility] Start: 08-30-2024 Alcohol Comment occasionally 1 glass of wine weekly [facility] Medical Equipment Procedure Code Equipment Code Equipment Origin al Text Equipment Identifier Dates Mika fundoplication Plant poly saccharide haemostatic agent, bioabsorbable ()[id number] FDA Start: 03-23-2022 Mika fundoplication Cardiovasc ular patch, synthetic ()[id number] FDA Start: 03-23-2022 Mika fundoplication Ligation c lip, synthetic polymer, non-bioabsorbable ()[id number] FDA Start: 03-23-2022 Colonoscopy Haemorrhoid liga tion set ()[id number] FDA Start: 06-17-2023 Goals Date Patient Goal Desired Activity /State Functional Status Date Assessment Result Facility 08-30-2024 Total score [AUDIT-C] 3 08/31/19 25 12:56 PM EDT Ondina Hewitt MA [facility] 09-01-2022 Functional status Ambulates [facility] Work Phone: 08-05-2021 Functional status Bedrest [facility] Work Phone: [facility] Mental Status Date Assessment Result Facility 06-17-2023 Cognitive function Level Of Cons ciousness Appropriate;Drowsy [facility] Work Phone: 06-17-2023 Cognitive function Touch/Shaking [facility] Work Phone: 08-31-2022 Cognitive function Awake;Alert;A ppropriate;Follow s Commands [facility] Work Phone: 06-05-2022 Cognitive function Voice/Name [facility] Work Phone: 06-05-2022 Cognitive function Patient Orien tation Person;Place;Time [facility] Work Phone: 03-23-2022 Cognitive function Voice/Name [facility] Work Phone: 01-22-2022 Cognitive function Awake;Alert;A ppropriate;Follow s Commands [facility] Work Phone: 11-25-2021 Cognitive function Voice/Name [facility] Work Phone: 11-25-2021 Cognitive function Patient Orien tation Person;Place;Time [facility] Work Phone: 08-05-2021 Cognitive function Voice/Name [facility] Work Phone: Clinical Notes 09-12-2020 to 11-21-2024 Patient InstructionsLuis FernandoKatherine bianchiDO - 10/19/2024 10:55 AM Ondina Stoddard MA - 10/11/2024 8:47 AM EDTTelephone Encounter - Jey Pablo LPN - 09/15/2024 9:01 AM EDTPatient Instructions Note Date & Type Note Facility 11-21-2024 Note HNO ID: [id number] Author: AJ NIÑO MA Service: ? Author Type: Ring Striker Type: Progress Notes Filed: 11/21/2024 11:54 Note Text: POPULATION HEALTH NAVIGATION OUTREACH Action/FYI updated appointment note Topic Due (Y or N) Comments Medicare Wellness PCP Follow up Colorectal Cancer Screening Controlling Blood Pressure A1C HCC Flu Vaccine y Care Everywhere Reviewed MyChart Activation Updated Appointment Note Reason for Outreach Care Gap/HCC or Scheduling Wellness Visits Care Gaps due: Flu Vaccine Patient Contacted: Unable or unnecessary to reach patient: Patient already scheduled Updated appointment notes Navigation Signature: Aj Niño MA November 21, 2024 11:53 AM [facility] 11-21-2024 Note Patient Outreach (NE TNAV) -------- ADARSH SORENSEN ([id number]) 1940 M Date Time Provider Department 11/21/24 AJ NIÑO NETCORNELLV During your visit today, we recorded the following information about you: Aj Niño MA 11/21/2024 11:54 AM Signed POPULATION HEALTH NAVIGATION OUTREACH Action/FYI updated appointment note Topic Due (Y or N) Comments Medicare Wellness PCP Follow up Colorectal Cancer Screening Controlling Blood Pressure A1C HCC Flu Vaccine y Care Everywhere Reviewed MyChart Activation Updated Appointment Note Reason for Outreach Care Gap/HCC or Scheduling Wellness Visits Care Gaps due: Flu Vaccine Patient Contacted: Unable or unnecessary to reach patient: Patient already scheduled Updated appointment notes Navigation Signature: Aj Niño MA November 21, 2024 11:53 AM Allergies As of Date: 11/21/2024 Noted Allergy Reaction ELAVIL (AMITRIPTYLINE HCL) 11/18/2017 14 - Other: See Comments Comments: Tired and depressed feeling Date Reviewed: 10/19/2024 Reviewed by: Luz Myers MA - Fully Assessed Reason for Visit: Population Health Navigation Outreach [3910] Cmt: ACO WORKDMITRY MAXINE PCSA Prescriptions as of 11/21/2024 - rosuvastatin (CRESTOR) 20 mg tablet Take 1 tablet by mouth once daily. - omeprazole (PRILOSEC) 40 mg capsule Take 1 capsule by mouth once daily. - lactulose 10 gram/15 mL solution Take 30 ml twice a day. - aspirin 81 mg chewable tablet Take 81 mg by mouth once daily. - rituximab/hyaluronidase,human (RITUXAN HYCELA SUBCUTANEOUS) Inject subcutaneously. - albuterol HFA (PROAIR HFA) 90 mcg/actuation inhaler Inhale 2 Puffs as instructed every 6 hours as needed. Meds Comments as of 08/30/2024: Holding ASA as instructed. 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 Bilateral carotid artery stenosis [I65.23] 10/07/2015 Chronic low back pain without sciatica [M54.50,*10/07/2015 Allergic rhinitis due to pollen [J30.1] 10/07/2015 Erectile dysfunction [N52.9] 10/07/2015 Irritable bowel syndrome with both constipation*10/07/2015 Waldenstrom's macroglobulinemia (HCC) [C88.00] 10/07/2015 Family history of dementia [Z81.8] 10/07/2015 Primary insomnia [F51.01] 10/07/2015 DDD (degenerative disc disease), lumbar [M51.36*10/07/2015 Psoriasis [L40.9] 10/07/2015 History of colon polyps [Z86.0100] 10/07/2015 Mixed hyperlipidemia [E78.2] 10/07/2015 GERD without esophagitis [K21.9] 10/07/2015 Anemia [D64.9] 10/07/2015 Thrombocytopenia (HCC) [D69.6] 10/07/2015 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.4] 10/23/2015 Adrenal adenoma [D35.00] 10/23/2015 Chronic pain syndrome [G89.4] 10/23/2015 Disorder of prostate [N42.9] 10/23/2015 Benign non-nodular prostatic hyperplasia withou*10/23/2015 Rosacea [L71.9] 11/11/2016 Subclavian artery stenosis, right (HCC) [I77.1] 06/17/2017 Elevated fasting blood sugar [R73.01] 11/18/2017 Palpitations [R00.2] 06/07/2018 Medicare annual wellness visit, subsequent [Z00*11/25/2018 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] 12/14/2019 Hiatal hernia [K44.9] 03/08/2020 Medication management [Z79.899] 09/06/2020 Belching [R14.2] 09/12/2020 Balance problem [R26.89] 04/01/2021 History of COVID-19 [Z86.16] 09/09/2021 Advance directive discussed with patient [Z71.8*04/06/2022 Unsteadiness [R26.81] 11/17/2022 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 documented in this encounter [facility] 10-19-2024 Note HNO ID: [id number] Author: KATHERINE HERNÁNDEZ DO Service: ? Author Type: Physician Type: Progress Notes Filed: 10/20/2024 13:56 Note Text: HPI: Adarsh Sorensen is a 83 year old male who presents to the office regarding his voice. 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 [...] 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 10/07/2015 DDD (degenerative disc disease), lumbar 10/07/2015 Degeneration of lumbar or lumbosacral intervertebral disc Diaphragmatic hernia without mention of obstruction or gangrene Elevated fasting blood sugar 11/18/2017 Enlargement of lymph nodes Erectile dysfunction 10/07/2015 Family history of dementia 10/07/2015 First degree AV block 01/12/2024 GERD without esophagitis 10/07/[address] 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 pt to go see Dr. 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 W/U with event monitor in past was normal per cardio. past medical history skin cancer forehead--unsure which kind Primary insomnia 10/07/2015 Psoriasis Rosacea 11/11/2016 Skin cancer screening 07/09/2023 Seeing [facility] Subclavian artery stenosis, right 06/17/2017 US 06/16/2017 50-99% Thrombocytopenia 10/07/2015 Waldenstrom's macroglobulinemia (HCC) 10/07/2015 Current Outpatient Medications Medication Sig Dispense Refill rosuvastatin (CRESTOR) 20 mg tablet Take 1 tablet by mouth once daily. 90 tablet 1 omeprazole (PRILOSEC) 40 mg capsule Take 1 capsule by mouth once daily. 90 capsule 1 lactulose 10 gram/15 mL solution Take 30 ml twice a day. 3785 mL 5 aspirin 81 mg chewable tablet Take 81 mg by mouth once daily. rituximab/hyaluronidase,human (RITUXAN HYCELA SUBCUTANEOUS) Inject subcutaneously. albuterol HFA (PROAIR HFA) 90 mcg/actuation inhaler Inhale 2 Puffs as instructed every 6 hours as needed. 1 Each 1 No current facility-administered medications for this visit. ALLERGIES Allergen Reactions Elavil [Amitriptyli* Other: See Comments Tired and depressed feeling PAST SURGICAL HISTORY Procedure Laterality Date 2D ECHO (EXEP) 01/30/2014 EF=60%, LVH, no valve abnormalities COLONOSCOPY 09/21/2014 Dr. Bright, polyp, repeat 3 yrs COLONOSCOPY 02/17/2018 repeat 3 yrs, Dr. Bright COLONOSCOPY W/BIOPSY SINGLE/MULTIPLE 11/22/2007 ENDOSCOPY UPPER-EGD/M24 LAP, REVISION MIKA FUNDOPLASTY 03/20/[address] Layla [facility] SURG CHOLECYSTECTOMY W/CHOLANGIOGRAPHY 04/12/2009 PAST SURGICAL HISTORY OF 11/2014 AAA repair PAST SURGICAL HISTORY OF 2015 both eyes cataract removal. PAST SURGICAL HISTORY OF 10/13/2017 right shoulder surgery per [facility] UMBILICAL H[facility] 5 YRS/> REDUCIBLE 04/12/2009 STRESS TEST 02/27/2014 WNL SOCIAL HISTORY[1] FAMILY HISTORY Problem Relation Age of Onset Multiple Sclerosis Brother living Colon Cancer Father 74 of metastatic brain CA Diabetes Father other (schiophrenia) Sister doing ok since e;ectroshock Alzheimer's Disease Mother Physical Exam BP 133/78 Pulse 60 Resp 16 Ht 181.6 cm (5' 11.5) Wt 75.8 kg (167 lb) BMI 22.97 kg/m? General Appearance: Well-developed, well-nourished, no acute distress. Communication: Reasonable historian whose voice is normal although soft spoken. Psych/Mental Status: Normal affect. Head/Face: Normocephalic, without evidence of trauma. Facial muscles appear to (more content not included)... [facility] 10-19-2024 History of Present illness Narrative HPI: Adarsh Sorensen is a 83 year old male who presents to the office regarding his voice. 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 [...] 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 10/07/2015 DDD (degenerative disc disease), lumbar 10/07/2015 Degeneration of lumbar or lumbosacral intervertebral disc Diaphragmatic hernia without mention of obstruction or gangrene Elevated fasting blood sugar 11/18/2017 Enlargement of lymph nodes Erectile dysfunction 10/07/2015 Family history of dementia 10/07/2015 First degree AV block 01/12/2024 GERD without esophagitis 10/07/[address] 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 pt to go see Dr. 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 W/U with event monitor in past was normal per cardio. past medical history skin cancer forehead--unsure which kind Primary insomnia 10/07/2015 Psoriasis Rosacea 11/11/2016 Skin cancer screening 07/09/2023 Seeing [facility] Subclavian artery stenosis, right 06/17/2017 US 06/16/2017 50-99% Thrombocytopenia 10/07/2015 Waldenstrom's macroglobulinemia (HCC) 10/07/2015 Current Outpatient Medications Medication Sig Dispense Refill rosuvastatin (CRESTOR) 20 mg tablet Take 1 tablet by mouth once daily. 90 tablet 1 omeprazole (PRILOSEC) 40 mg capsule Take 1 capsule by mouth once daily. 90 capsule 1 lactulose 10 gram/15 mL solution Take 30 ml twice a day. 3785 mL 5 aspirin 81 mg chewable tablet Take 81 mg by mouth once daily. rituximab/hyaluronidase,human (RITUXAN HYCELA SUBCUTANEOUS) Inject subcutaneously. albuterol HFA (PROAIR HFA) 90 mcg/actuation inhaler Inhale 2 Puffs as instructed every 6 hours as needed. 1 Each 1 No current facility-administered medications for this visit. ALLERGIES Allergen Reactions Elavil [Amitriptyli* Other: See Comments Tired and depressed feeling PAST SURGICAL HISTORY Procedure Laterality Date 2D ECHO (EXEP) 01/30/2014 EF=60%, LVH, no valve abnormalities COLONOSCOPY 09/21/2014 Dr. Bright, polyp, repeat 3 yrs COLONOSCOPY 02/17/2018 repeat 3 yrs, Dr. Bright COLONOSCOPY W/BIOPSY SINGLE/MULTIPLE 11/22/2007 ENDOSCOPY UPPER-EGD/M24 LAP, REVISION MIKA FUNDOPLASTY 03/20/[address] Layla [facility] SURG CHOLECYSTECTOMY W/CHOLANGIOGRAPHY 04/12/2009 PAST SURGICAL HISTORY OF 11/2014 AAA repair PAST SURGICAL HISTORY OF 2015 both eyes cataract removal. PAST SURGICAL HISTORY OF 10/13/2017 right shoulder surgery per [facility] UMBILICAL HRNA 5 YRS/> REDUCIBLE 04/12/2009 STRESS TEST 02/27/2014 WNL SOCIAL HISTORY[1] FAMILY HISTORY Problem Relation Age of Onset Multiple Sclerosis Brother living Colon Cancer Father 74 of metastatic brain CA Diabetes Father other (schiophrenia) Sister doing ok since e;ectroshock Alzheimer's Disease Mother Physical Exam BP 133/78 Pulse 60 Resp 16 Ht 181.6 cm (5' 11.5) Wt 75.8 kg (167 lb) BMI 22.97 kg/m General Appearance: Well-developed, well-nourished, no acute distress. Communication: Reasonable historian whose voice is normal although soft spoken. Psych/Mental Status: Normal affect. Head/Face: Normocephalic, without evidence of trauma. Facial muscles appear to be functioning normally. Eyes: Extraocular muscles appear intact. Salivary Glands: Parotid/Zarina's-normal to palpation without evidence of duct abnormality. Submandibular/Tomer's-without evidence of palpable abnormality and no visible duct lesions. Ears: External ears appear normally formed. Tympanic membranes intact bilaterally. Nose: External nose is grossly normal. Anterior rhinoscopy finds the mucous membranes to be moist and without obvious lesions. There is mild septal deviation with prominence of the inferior turbinates. Oral Cavity/Oropharynx: The mucous membranes of the pharynx, lips and tongue appear grossly normal. Dentition is unremarkable. Palate and floor of mouth are intact. Neck: There are no masses, adenopathy, or thyromegaly and the trachea is midline. Respiratory: no stridor or wheezing. Reviewed last PCP note ASSESSMENT/PLAN: 1. Voice complaint - ICD9: 784.40, ICD10: R49.9 - discussed that he does not have any visible polyps, nodules, or lesions on the vocal folds - at times he does have some tremor like movement in the larynx, he defers speech therapy at this time - will call if things worsen - ok to follow-up prn Procedure- Flexible laryngoscopy Topical lidocaine and decongestant was applied to the bilateral nasal cavity. After an adequate time had elapsed, the scope was advanced to the level of the glottis. Septum relatively midline. No nasal masses or polyps. No purulent drainage or epistaxis. Nasopharynx was patent. Base of tongue and epiglottis are normal in appearance. Bilateral vocal folds are mobile and symmetric in movement. No vocal fold masses. Piriform sinuses are without lesions. Scope was removed and patient tolerated it well. 30 minute total time including preparation, obtaining/reviewing history, exam, interpreting results, ordering, counseling/education, referring/communicating and documentation. Katherine Hernández DO [1] Social History Tobacco Use Smoking status: Former Current packs/day: 0.00 Average packs/day: 1 pack/day for 8.0 years (8.0 ttl pk-yrs) Types: Cigarettes Start date: 02/15/1966 Quit date: 02/15/1974 Years since quittin.7 Smokeless tobacco: Never Tobacco comments: NO EXPOSURE TO 2ND HAND SMOKE Vaping Use Vaping status: Never Used Substance Use Topics Alcohol use: Yes Alcohol/week: 1.0 standard drink of alcohol Types: 1 Standard drinks or equivalent per week Comment: occasionally 1 glass of wine weekly Drug use: No documented in this encounter [facility] 10-11-2024 Note HNO ID: [id number] Author: ONDINA HEWITT MA Service: ? Author Type: Ring Striker Type: Progress Notes Filed: 10/11/2024 08:47 Note Text: Scan on 10/10/2024 4:15 PM by Provider, External, PA-C: Dr. Bright [facility] 10-11-2024 History of Present illness Narrative Scan on 10/10/2024 4:15 PM by Provider, JORDAN Honeycutt: Dr. Bright [facility] documented in this encounter [facility] 09-15-2024 Telephone encounter Note Patient notified of results and provider's instructions. Patient verbalizes understanding. Jey Pablo LPN [facility] 09-15-2024 Miscellaneous Notes Patient notified of results and provider's instructions. Patient verbalizes understanding. Jey Pablo LPN Let patient know CT of abdomin was fine. Next step would be further eval with Dr. Bright his airport driver in [place]. documented in this encounter [facility] 09-14-2024 Telephone encounter Note Let patient know CT of abdomin was fine. Next step would be further eval with Dr. Jo airport driver in [place]. [facility] 09-14-2024 History of Present illness Narrative Radiology Service Progress Note DATE OF SERVICE: September 14, 2024 TIME: 2:14 PM PATIENT IDENTITY VERIFICATION COMPLETED USING TWO (2) STANDARD IDENTIFIERS: Name and Date of confirmed by patient verbally. FALL SCREENING: Has the patient had 2 falls in the last year or 1 fall with injury or currently using an Ambulatory Assistive Device (Walker, Cane, Wheelchair, Crutches, etc.)? No PATIENT GENDER DATA: Assigned male at PATIENT RELEVANT IMPLANT DATA REVIEWED: Yes PATIENT PRESENTS WITH AN IMPLANTABLE OR ATTACHED PRESS FEEDER BROOMCORN: No ALLERGIES: Reviewed and unchanged CONTRAST ALLERGY: NO. EXAM: CT -CONTRAST INDUCED NEPHROPATHY RISK FACTORS: Patient age > 60 years CREATININE: Creatinine Date Value Ref Range Status 09/14/2024 1.15 0.73 - 1.22 mg/dL Final 08/16/2024 1.18 0.73 - 1.22 mg/dL Final 01/08/2024 1.15 0.73 - 1.22 mg/dL Final Estimated Glomerular Filtration Rate Date Value Ref Range Status 09/14/2024 63 >=60 mL/min/1.73m Final Comment: Estimated Glomerular Filtration Rate (eGFR) is calculated using the 2020 CKD-EPI creatinine equation. This equation utilizes serum creatinine, sex, and age as parameters. The creatinine assay has traceable calibration to isotope dilution-mass spectrometry. Refer to KDIGO guidelines for clinical interpretation. In patients with unstable renal function, e.g. those with acute kidney injury, the eGFR may not accurately reflect actual GFR. eGFR- Date Value Ref Range Status 03/18/2021 >60 Final P.O.C.T. RESULTS: POC done: Yes, See Lab Tab September 14, 2024 TREATMENT: N/A PERIPHERAL IV DATA: Ambulatory: A peripheral IV was started in the Left antecubital site with a Angio cath: 22 gauge. RADIOLOGY DEPARTMENT: CT; Exam(s) Completed: Abdomen SIGNATURE: RT Alta(Paige) PATIENT NAME: Adarsh Sorensen DATE: September 14, 2024 TIME: 2:14 PM documented in this encounter [facility] 09-14-2024 Note HNO ID: [id number] Author: BRISEYDA WHITE RT(R) Service: ? Author Type: Horologist Apprentice Type: Progress Notes Filed: 09/14/2024 14:14 Note Text: Radiology Service Progress Note DATE OF SERVICE: September 14, 2024 TIME: 2:14 PM PATIENT IDENTITY VERIFICATION COMPLETED USING TWO (2) STANDARD IDENTIFIERS: Name and Date of confirmed by patient verbally. FALL SCREENING: Has the patient had 2 falls in the last year or 1 fall with injury or currently using an Ambulatory Assistive Device (Walker, Cane, Wheelchair, Crutches, etc.)? No PATIENT GENDER DATA: Assigned male at PATIENT RELEVANT IMPLANT DATA REVIEWED: Yes PATIENT PRESENTS WITH AN IMPLANTABLE OR ATTACHED PRESS FEEDER BROOMCORN: No ALLERGIES: Reviewed and unchanged CONTRAST ALLERGY: NO. EXAM: CT -CONTRAST INDUCED NEPHROPATHY RISK FACTORS: Patient age > 60 years CREATININE: Creatinine Date Value Ref Range Status 09/14/2024 1.15 0.73 - 1.22 mg/dL Final 08/16/2024 1.18 0.73 - 1.22 mg/dL Final 01/08/2024 1.15 0.73 - 1.22 mg/dL Final Estimated Glomerular Filtration Rate Date Value Ref Range Status 09/14/2024 63 >=60 mL/min/1.73m? Final Comment: Estimated Glomerular Filtration Rate (eGFR) is calculated using the 2020 CKD-EPI creatinine equation. This equation utilizes serum creatinine, sex, and age as parameters. The creatinine assay has traceable calibration to isotope dilution-mass spectrometry. Refer to KDIGO guidelines for clinical interpretation. In patients with unstable renal function, e.g. those with acute kidney injury, the eGFR may not accurately reflect actual GFR. eGFR- Date Value Ref Range Status 03/18/2021 >60 Final P.O.C.T. RESULTS: POC done: Yes, See Lab Tab September 14, 2024 TREATMENT: N/A PERIPHERAL IV DATA: Ambulatory: A peripheral IV was started in the Left antecubital site with a Angio cath: 22 gauge. RADIOLOGY DEPARTMENT: CT; Exam(s) Completed: Abdomen SIGNATURE: RT Alta(R) PATIENT NAME: Adarsh Sorensen DATE: September 14, 2024 TIME: 2:14 PM [facility] 09-12-2024 Telephone encounter Note Pt agreeable to CT order. Transferred to banking consultant. Gisele Alonso RN [facility] 09-12-2024 Miscellaneous Notes Pt agreeable to CT order. Transferred to banking consultant. Gisele Alonso RN Left message for pt to contact office. Jey Pablo LPN Let patient know the US of his upper abdomen was unremarkable. However the pancrease was not well seen. In order to get a better look will need a CT. If ok with this order placed. documented in this encounter [facility] 09-12-2024 Telephone encounter Note Left message for pt to contact office. Jey Pablo LPN [facility] 09-12-2024 Telephone encounter Note Let patient know the US of his upper abdomen was unremarkable. However the pancrease was not well seen. In order to get a better look will need a CT. If ok with this order placed. [facility] 09-07-2024 History of Present illness Narrative Radiology Service Progress Note PATIENT NAME: Adarsh Sorensen DATE OF SERVICE: September 07, 2024 TIME: 3:57 PM PATIENT IDENTITY VERIFICATION COMPLETED USING TWO (2) IDENTIFIERS: Name and Date of confirmed by patient verbally. FALL SCREENING: Has the patient had 2 falls in the last year or 1 fall with injury or currently using an Ambulatory Assistive Device (Walker, Cane, Wheelchair, Crutches, etc.)? No PATIENT GENDER DATA: Assigned male at PATIENT RELEVANT IMPLANT DATA REVIEWED: Not Applicable PATIENT PRESENTS WITH AN IMPLANTABLE OR ATTACHED PRESS FEEDER BROOMCORN: No RADIOLOGY DEPARTMENT: Ultrasound PERIPHERAL IV DATA: Not applicable SIGNED BY: Martha Wong RDMS RVT September 07, 2024 3:57 PM documented in this encounter [facility] 09-07-2024 Note HNO ID: [id number] Author: MARTHA WONG RDMS Service: ? Author Type: Er Medical Technician Type: Progress Notes Filed: 09/07/2024 15:57 Note Text: Radiology Service Progress Note PATIENT NAME: Adarsh Sorensen DATE OF SERVICE: September 07, 2024 TIME: 3:57 PM PATIENT IDENTITY VERIFICATION COMPLETED USING TWO (2) IDENTIFIERS: Name and Date of confirmed by patient verbally. FALL SCREENING: Has the patient had 2 falls in the last year or 1 fall with injury or currently using an Ambulatory Assistive Device (Walker, Cane, Wheelchair, Crutches, etc.)? No PATIENT GENDER DATA: Assigned male at PATIENT RELEVANT IMPLANT DATA REVIEWED: Not Applicable PATIENT PRESENTS WITH AN IMPLANTABLE OR ATTACHED PRESS FEEDER BROOMCORN: No RADIOLOGY DEPARTMENT: Ultrasound PERIPHERAL IV DATA: Not applicable SIGNED BY: Martha Wong RDMS RVT September 07, 2024 3:57 PM [facility] 08-30-2024 Instructions Jared Robertson MD - 08/30/2024 1:38 PM EDT Consider getting a Tdap to update for tetanus and the RSV vaccine from a local pharmacy. Please get labs and urine test done on or after 02/15/2025 prior to your next visit. We discussed your ongoing symptoms and care plan: - Heartburn and Stomach Symptoms: - You reported persistent heartburn and burning sensations in your stomach since March, which have not improved with medications like omeprazole or Nexium. - I ordered an H. pylori breath test to check for a bacterial infection that could be causing your symptoms. You must be off all acid-reducing medications (e.g., Nexium, Pepto-Bismol) for at least 2 weeks before the test. You may take Tums or Rolaids for symptom relief during this time. - The test can be performed on or after September 14. Please avoid taking Nexium or Pepto-Bismol until after the test is completed. - I submitted a referral to Dr. Bright (airport driver) to evaluate your heartburn, diarrhea, and related symptoms. His office will contact you to schedule an appointment. - Diarrhea and Bowel Irregularity: - You reported watery stools and difficulty with bowel movements. You may continue taking Metamucil gummies to help with regularity. - Hoarse Voice: - You noted persistent hoarseness and changes in your voice, which may be related to acid reflux or other causes. - I submitted a referral to Dr. Hernández (ear, nose, and throat specialist) to evaluate your vocal cords and rule out any polyps, especially given your history of smoking. - Tremors: - You described worsening tremors that affect your ability to write and perform fine motor tasks. - I prescribed Primidone to help reduce the tremors. Take half a tablet daily for the first week, then increase to one tablet daily starting in the second week. This has been sent to your preferred pharmacy. - Sleep Issues: - You may continue taking Trazodone at a full tablet dose to help with sleep. This has been updated to a 90-day supply. - Lab Results: - Your recent lab work was reviewed and showed no significant abnormalities. Your glucose, A1c, cholesterol, kidney, liver, and thyroid tests were all within normal limits. There were no signs of anemia or infection. - Carotid Artery Screening: - Your carotid artery ultrasound showed no changes compared to two years ago, with less than 50% narrowing on both sides. Follow-Up: - Burt will assist in scheduling a follow-up appointment with me in 6 months. - Please complete the H. pylori breath test after September 14 and follow up with Dr. Bright and Dr. Hernández as scheduled. If you have any questions or concerns before your next visit, please contact our office. documented in this encounter [facility] 08-30-2024 History of Present illness Narrative Images from the original note were not included. Adarhs Sorensen is a 83 year old male here for a Medicare wellness visit. Medicare Health Risk Assessment General Health Fair Exercise: Minutes/Day 30 min Exercise: Days/Week 5 days Alcohol: Daily Use 2-3 times a week Alcohol: Drinks/Day 1 or 2 Alcohol: 6 or more drinks Never Feel off balance Yes (due to neuropathy) Concerns: Teeth/Dentures No Concerns: Sexual function No Troubled by feelings None of the above Frequency: Eating healthy diet Nearly every day ADLs requiring help None of the above Safety precautions in home/vehicle No (no grab bars in bathroom. Does have rugs in home.) Smoke, vape, chews tobacco No Difficulty hearing No Difficulty seeing No Current Providers Specialists: I have reviewed specialist-related care of the patient in the medical record. Medical/Family history review Reviewed and updated problem list, medical/surgical/family/social history, medications, and allergies. Opioid use review Opioid Medications (last 90 days) No data to display Anxiety/Depression screening PHQ-2 Score: 1 (Lower risk for depression) LUCRECIA-2 Score: 2 (Lower risk for anxiety) Recommendation: no further intervention at this time. Pt does worry about his daughter. Cognitive screening Mini Cog Score: 4 Cognitive screening reviewed and No further action needed (score 3-5). Mini-Cog Patient asked to remember the following three words: Banana, [place] and Chair Visuospatial/Executive Functioning: Clock drawin/2 (Normal clock with all number in correct sequence and position, hands are correct = 2 points, inability or refusal to draw a clock = 0) Three word recall: 2/3 Total score: 4/5 (Total score = word recall score + clock draw score) Functional Observation Was the patient's Timed Up & Go test unsteady or >= 12 seconds? No Advance Care Planning Surrogate decision maker and/or advance care plan documented Measurements BP 120/64 (BP Site: Left Arm, BP Position: Sitting, BP Cuff Size: Regular Adult) Pulse 60 Resp 16 Ht 181 cm (5' 11.25) Wt 78.3 kg (172 lb 9.6 oz) BMI 23.90 kg/m Vision Screening: Follows with optometry/ophthalmology Assessment/Plan Medicare annual wellness visit, subsequent (Z00.00) - Counseled on healthy diet and regular exercise - Fall avoidance information provided - Personalized prevention plan provided See below. Chief Complaint Patient presents with: Medicare Wellness Exam HPI Adarsh Sorensen is a 83 year old male who presents here today for a medicare wellness and a routine follow up. Patient with Hx of AAA, Carotid artery disease, CAD, GERD, funez's, elevated fasting blood sugar, Hyperlipidemia, Waldenstrom's macroglobulinemia, Anemia, thrombocytopenia, allergic Rhinitis, insomnia, chronic bronchitis, IBS, BPH as well as those reviewed and addressed below and in ROS. Adarsh reports a persistent burning sensation in the stomach since March, which he describes as severe heartburn. This sensation is present throughout the day and occasionally wakes him at night. He has tried omeprazole and [id number] Nexium, both of which provided temporary relief but are no longer effective. He denies current use of any heartburn medications. He also reports a hoarse voice, which he attributes to acid reflux, and occasional sore throats. He denies experiencing a sour or acid taste in the morning, but notes dry mouth. He denies any lumps or swelling in the neck, and denies wheezing or dyspnea. He has not needed to use his rescue inhaler and denies hemoptysis or colored mucus production. Adarsh also reports irregular bowel movements, with periods of constipation followed by episodes of watery diarrhea. He has been trying to increase his fiber intake by eating broccoli and green beans, but this has not made a difference. He denies melena or hematochezia. He reports some nausea, but not frequent, and denies emesis. He has lost 5 pounds since March. Adarsh also reports tremors in his legs and hands, which are getting worse. He describes these as muscle twitches in the legs. In the hands they are more noticeable when he is writing. He denies any changes in his tolerance to heat or cold, and denies any recent increase in thirst. He denies syncope, seizures, or tremors. He also reports occasional palpitations, with his heart rate varying from 40 to 80 bpm, but denies seeing a quality analyst/technical writer. Adarsh also reports difficulty sleeping, taking a full tablet of trazodone at night, which helps him fall asleep but he still wakes up in the middle of the night. He denies any burning or blood in his urine, but reports getting up a couple of times at night to urinate. He also reports a lesser stream at night, which he attributes to taking Crestor. He denies any unusual muscle or joint aches, and denies any recent changes in his hearing or vision, but notes that his close-up vision for reading in the dark is not as good. Adarsh also reports that he has a Durable Power of Coil Former with his son, Driss, but does not have a living will. He feels safe at home and denies any issues with bruising or bleeding. He also reports that he has not been to [facility] checks in a while. Past medical history, appointments, medications, allergies reviewed. 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 [...] 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 10/07/2015 DDD (degenerative disc disease), lumbar 10/07/2015 Degeneration of lumbar or lumbosacral intervertebral disc Diaphragmatic hernia without mention of obstruction or gangrene Elevated fasting blood sugar 11/18/2017 Enlargement of lymph nodes Erectile dysfunction 10/07/2015 Family history of dementia 10/07/2015 First degree AV block 01/12/2024 GERD without esophagitis 10/07/[address] 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 pt to go see Dr. 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 W/U with event monitor in past was normal per cardio. past medical history skin cancer forehead--unsure which kind Primary insomnia 10/07/2015 Psoriasis Rosacea 11/11/2016 Skin cancer screening 07/09/2023 [facility] Subclavian artery stenosis, right 06/17/2017 US 06/16/2017 50-99% Thrombocytopenia 10/07/2015 Waldenstrom's macroglobulinemia (HCC) 10/07/2015 Previous Surgical History PAST SURGICAL HISTORY Procedure Laterality Date 2D ECHO (EXEP) 01/30/2014 EF=60%, LVH, no valve abnormalities COLONOSCOPY 09/21/2014 Dr. Bright, polyp, repeat 3 yrs COLONOSCOPY 02/17/2018 repeat 3 yrs, Dr. Bright COLONOSCOPY W/BIOPSY SINGLE/MULTIPLE 11/22/2007 ENDOSCOPY UPPER-EGD/M24 LAP, REVISION MIKA FUNDOPLASTY 03/20/[address] Layla VORA SURG [...] on File Prior to Visit Medication Sig traZODone (DESYREL) 50 mg tablet Take 1/2 -1 table 30 min prior to bed. Tadalafil (CIALIS) 20 mg tablet Take 1 tablet by mouth once daily as needed. Take 1-2 hours before sexual activity. (Patient not taking: Reported on 07/17/2024) rosuvastatin (CRESTOR) 20 mg tablet Take 1 tablet by mouth once daily. omeprazole (PRILOSEC) 40 mg capsule Take 1 capsule by mouth once daily. lactulose 10 gram/15 mL solution Take 30 ml twice a day. (Patient taking differently: Take 30 g by mouth two times a day as needed. Take 30 ml twice a day. As needed) aspirin 81 mg chewable tablet Take 81 mg by mouth once daily. rituximab/hyaluronidase,human (RITUXAN HYCELA SUBCUTANEOUS) Inject subcutaneously. albuterol HFA (PROAIR HFA) 90 mcg/actuation inhaler Inhale 2 Puffs as instructed every 6 hours as needed. No current facility-administered medications on file prior to visit. Social History Social History Tobacco Use Smoking status: Former Current packs/day: 0.00 Average packs/day: 1 pack/day for 8.0 years (8.0 ttl pk-yrs) Types: Cigarettes Start date: 02/15/1966 Quit date: 02/15/1974 Years since quittin.5 Smokeless tobacco: Never Tobacco comments: NO EXPOSURE TO 2ND HAND SMOKE Vaping Use Vaping status: Never Used Substance Use Topics Alcohol use: Yes Alcohol/week: 1.0 standard drink of alcohol Types: 1 Standard drinks or equivalent per week Comment: occasionally 1 glass of wine weekly Drug use: No Review of Symptoms REVIEW OF SYSTEMS GENERAL: No malaise or fevers. Has lost about 5 pounds since Feb 2024. HEENT: Negative for frequent or significant headaches, No changes in hearing,no nose bleeds or other nasal problems. Slight sore throat in the morning. Voice is hoarse. Near vision is not as good. NECK: Negative for lumps, goiter, pain and significant neck swelling RESPIRATORY: Negative for cough, hemoptysis, wheezing, COPD, dyspnea or shortness of breath. Has not needed his rescue inhaler. CARDIOVASCULAR: Negative for chest pain, leg swelling, hypertension, CHF or palpitations. GI: No vomiting. Has diarrhea every 2-3 days. Some nausea at times. No blood or melena. Has had what he feels is GERD in the left upper quadrant. He was on omeprazole and since it wasn't helping he changed to Nexium. That helped initially. : No history of dysuria, frequency or blood MUSCULOSKELETAL: Negative for new or changes in his typical joint pain or swelling, back pain or muscle pain SKIN: sees Derm PSYCH: Negative for sleep disturbance, mood disorder and recent psychosocial stressors HEMATOLOGY/LYMPHOLOGY: Negative for prolonged bleeding, bruising easily or swollen nodes ENDOCRINE: Negative for cold or heat intolerance, polyuria, polydipsia and goiter NEURO: No history of headaches, syncope, paralysis, seizures or tremors SEE HPI EXAM: BP 120/64 (BP Site: Left Arm, BP Position: Sitting, BP Cuff Size: Regular Adult) Pulse 60 Resp 16 Ht 181 cm (5' 11.25) Wt 78.3 kg (172 lb 9.6 oz) BMI 23.90 kg/m Last 5 Encounter Wt Readings: Date: Wt: 08/30/2024 78.3 kg (172 lb 9.6 oz) 08/22/2024 78.9 kg (174 lb) 07/17/2024 80.7 kg (178 lb) 03/22/2024 80.3 kg (177 lb) 03/07/2024 80.3 kg (177 lb) General Appearance: Well appearing, alert, in [...] murmur, gallop, or rubs. No ectopy. Abdomen: , Abdomen soft, non-distended. Mild tenderness in the LUQ without guarding or rebound pain. Bowel sounds normal. No masses, organomegaly. Extremities: No deformities, edema, skin discoloration, Good capillary refill. . Musculoskeletal: Muscular strength intact, No joint swelling, deformity, or tenderness. Peripheral Pulses: Normal. Neurologic: Gait normal. Reflexes normal and symmetric. Sensation to light touch and crainal nerves 2-12 intact.. Genitalia: declined. Health Maintenance List Medicare Annual Wellness Visit due on 07/08/2024 DTaP,Tdap,Td Vaccine(2 - Td or Tdap) due on 08/30/2025 RSV Vaccine(1 - 1-dose 75+ series) due on 08/30/2025 Covid-19 Vaccine( - season) due on 08/30/2025 Influenza Vaccine(1) due on 10/16/2024 LDL Cholesterol due on 08/16/2025 Depression Screening due on 08/30/2025 Anxiety Screening due on 08/30/2025 Diabetes Screening due on 08/17/2027 Advance Directive Discussion Completed Shingrix Vaccine Completed Pneumococcal Vaccine: 50+ Completed Colorectal Cancer Screening Discontinued Data reviewed Latest Ref Rng 04/03/2023 05/12/2023 06/24/2023 01/08/2024 08/16/2024 WBC 3.70 - 11.00 k/uL 5.83 7.85 5.23 RBC 4.20 - 6.00 m/uL 4.22 4.45 4.31 Hemoglobin 13.0 - 17.0 g/dL 13.6 14.4 14.1 Hematocrit 39.0 - 51.0 % 40.7 43.2 39.9 MCV 80.0 - 100.0 fL 96.4 97.1 92.6 MCH 26.0 - 34.0 pg 32.2 32.4 32.7 MCHC 30.5 - 36.0 g/dL 33.4 33.3 35.3 RDW-CV 11.5 - 15.0 % 12.8 12.9 12.7 Platelet Count 150 - 400 k/uL 153 183 151 MPV 9.0 - 12.7 fL 10.4 10.8 10.1 Neut% % 69.0 70.2 71.3 Abs Neut (ANC) 1.45 - 7.50 k/uL 4.02 5.52 3.73 Lymph% % 19.2 14.4 14.3 Abs Lymph 1.00 - 4.00 k/uL 1.12 1.13 0.75 (L) [place]% % 7.7 12.0 11.3 Abs [place] <0.87 k/uL 0.45 0.94 (H) 0.59 Eosin% % 3.4 2.7 2.5 Abs Eosin <0.46 k/uL 0.20 0.21 0.13 Baso% % 0.5 0.3 0.4 Abs Baso <0.11 k/uL 0.03 <0.03 <0.03 Immature Gran % % 0.2 0.4 0.2 IMMATURE GRANS (ABS) <0.10 k/uL <0.03 0.03 <0.03 NRBC /100 WBC 0.0 0.0 0.0 Absolute nRBC <0.01 k/uL <0.01 <0.01 <0.01 DTYPE Auto Auto Auto Color Yellow Dark Yellow ! Dark Yellow ! Yellow Clarity Clear Clear Clear Clear Glucose, Urine Negative Negative Negative Negative Bilirubin, Urine Negative 1+ ! Negative Negative Ketones, Urine Negative Trace ! Negative Negative Specific [place], Ur 1.005 - 1.030 1.027 1.033 (H) 1.017 Hemoglobin/Blood,Ur Negative Negative Negative Negative pH, Urine <8.5 5.5 5.5 5.5 Protein, Urine Negative Negative Trace ! Negative Urobilinogen 0.2-1.0 EU/dL 0.2 EU/dL 1.0 EU/dL 1.0 EU/dL Nitrites Negative Negative Negative Negative Leukest Negative Negative Trace ! Negative WBC, Urine 0-5 /HPF 0-5 /HPF 0-5 /HPF 0-5 /HPF RBC, Urine 0-2 /HPF 3-5 /HPF ! 0-2 /HPF 0-2 /HPF Bacteria Negative /HPF Negative Negative Negative Epithelial Cells /HPF None Seen None Seen None Seen Hyaline Cast 0 /LPF 0 /LPF 0 /LPF 0 /LPF Protein, Total 6.3 - 8.0 g/dL 6.4 6.4 Albumin 3.9 - 4.9 g/dL 3.8 (L) 4.3 Calcium 8.5 - 10.2 mg/dL 9.0 9.2 9.4 Bilirubin, Total 0.2 - 1.3 mg/dL 1.0 0.9 Alkaline Phosphatase 38 - 113 U/L 83 90 AST 14 - 40 U/L 15 18 ALT 10 - 54 U/L 9 (L) 12 Glucose 74 - 99 mg/dL 112 (H) 105 (H) 73 (L) BUN 9 - 24 mg/dL 22 21 18 Creatinine 0.73 - 1.22 mg/dL 1.21 1.15 1.18 Sodium 136 - 144 mmol/L 141 142 138 Potassium 3.7 - 5.1 mmol/L 3.6 (L) 4.4 4.5 Chloride 98 - 107 mmol/L 104 105 102 CO2 22 - 30 mmol/L 28 27 26 Anion Gap 8 - 15 mmol/L 9 10 10 eGFR >=60 mL/min/1.73m 60 63 61 Total Cholesterol, Nonfasting <200 mg/dL 184 164 160 Triglycerides, Nonfasting <150 mg/dL 73 74 110 HDL Cholesterol, Nonfasting >39 mg/dL 59 60 56 LDL Cholesterol Calculated, Nonfasting <100 mg/dL 110 (H) 89 84 Non HDL Cholesterol, Nonfasting <130 mg/dL 125 104 104 VLDL Cholesterol, Nonfasting <30 mg/dL 15 15 17 Total Chol/HDL Ratio, Nonfasting <5.10 mg/dL 3.12 2.73 2.86 LDL/HDL Ratio, Nonfasting <2.54 mg/dL 1.86 1.48 1.50 Hemoglobin A1C 4.3 - 5.6 % 4.9 4.8 4.7 Estimated Average Glucose mg/dL 94 91 88 Vitamin B12 232 - 1,245 pg/mL 399 363 Magnesium 1.7 - 2.3 mg/dL 1.9 2.2 TSH 0.270 - 4.200 mIU/L 3.770 3.230 Uric Acid 4.0 - 8.1 mg/dL 5.5 Results CTA ABD/PEL LOWER EXTREM W IVCON (Acc#[id number] ) (Order [id number]) Patient Info Patient Name Sex Adarsh Torres ([id number]) Male 1940 02/10/2024 7:15 PM - Radiology, [place] Impression IMPRESSION: Stable appearance of aortoiliac stent graft without evidence of endoleak or recurrent aneurysm. The [place] aneurysm sac is collapsed completely around the graft. There are multiple degrees of atherosclerotic disease including through what appears to be a previously stented RIGHT superficial femoral artery as detailed above. Three-vessel runoff to both feet. No acute abnormality. Senior Controls Technician: PSCB Transcribe Date/Time: Feb 10 2024 6:54P Dictated by : ELI YIP MD This examination was interpreted and the report reviewed and electronically signed by: ELI IYP MD on Feb 10 2024 7:13PM EST Results-Findings * * *Final Report* * * DATE OF EXAM: Feb 10 2024 3:34PM [facility] [place] [id number] - CTA ABD/PEL/LOWER EXT W IVCON / PROCEDURE REASON: multiple diagnoses * * * * Physician Interpretation * * * * Exam: CT angiogram of the abdomen, pelvis and lower extremities. HISTORY: Known abdominal aortic aneurysm, status post endovascular repair. Patient complains of throbbing pain. TECHNIQUE: High-resolution contrast-enhanced helical CT of the abdomen, pelvis and both lower extremities was performed, timed to the arterial phase. 3D maximum intensity projection images were created, reviewed and archived. Total of 120 ml of Omnipaque 350 was injected IV during the examination. The study was performed without oral contrast. The patient tolerated the injection without complications. No special maneuvers were performed Dose-Length Product (DLP): 753 mGy*cm. CT Dose Reduction Employed: Automated exposure control(AEC) and iterative recon RESULT: COMPARISON: CT angiogram of the abdomen and pelvis dated 05/31/2020. INSURANCE LICENSING SUPERVISOR: Review of remedial teacher images demonstrate no additional findings. ABDOMEN: Again noted is an intact aortobiiliac stent graft, which is widely patent with only minimal peripheral plaque in the bilateral common iliac artery limbs. The [place] aneurysm sac is collapsed around the graft without evidence of endoleak. Celiac artery demonstrates no significant focal stenosis. Superior mesenteric artery demonstrates no significant focal stenosis. Inferior mesenteric artery demonstrates no significant focal stenosis. There is a single right renal artery. Right renal artery demonstrates no significant focal stenosis. There is a single renal vein which is patent. There is a single left renal artery. Left renal artery demonstrates no significant focal stenosis. There is a single renal vein which is patent. RIGHT LEG: Right common iliac artery contains a patent limb of the stent graft. Right external iliac artery demonstrates diffuse atherosclerotic change without significant focal stenosis. Right internal iliac artery demonstrates diffuse atherosclerotic change without significant focal stenosis. Right common femoral artery demonstrates diffuse atherosclerotic change without significant focal stenosis. Right profunda femoris artery is widely patent with no significant stenosis. Right superficial femoral artery contains multiple stents with areas of mild to moderate in-stent stenosis proximally and moderate to severe distal in-stent stenosis with multiple collaterals. Right popliteal artery demonstrates diffuse atherosclerotic change without significant focal stenosis. Right anterior tibial artery demonstrates diffuse atherosclerotic change without significant focal stenosis. Dorsalis pedis is seen and normal in appearance. Right tibioperoneal trunk demonstrates diffuse atherosclerotic change without significant focal stenosis. Right posterior tibial artery demonstrates focal moderate (40-60 %) stenosis. Posterior tibial artery is normal in caliber and seen to the foot. Right peroneal artery demonstrates diffuse atherosclerotic change without significant focal stenosis. LEFT LEG: Left common iliac artery contains a patent stent graft. Left external iliac artery demonstrates diffuse atherosclerotic change without significant focal stenosis. Left internal iliac artery demonstrates diffuse atherosclerotic change without significant focal stenosis. Left common femoral artery demonstrates diffuse atherosclerotic change without significant focal stenosis. Left profunda femoris artery demonstrates diffuse atherosclerotic change without significant focal stenosis. Left superficial femoral artery demonstrates diffuse atherosclerotic change without significant focal stenosis. Left popliteal artery demonstrates diffuse atherosclerotic change without significant focal stenosis. Left anterior tibial artery demonstrates focal moderate (40-60 %) stenosis. Dorsalis pedis is seen and normal in appearance. Left tibioperoneal trunk demonstrates focal moderate (40-60 %) stenosis. Left posterior tibial artery demonstrates diffuse atherosclerotic change without significant focal stenosis. Posterior tibial artery is normal in caliber and seen to the foot. Left peroneal artery is widely patent with no significant stenosis. NONVASCULAR FINDINGS: Lower thorax: Bibasilar atelectasis without acute abnormality. Liver: Unremarkable Biliary: No bile duct dilation. The gallbladder is not identified. Correlate with history of cholecystectomy. Spleen: No mass. No splenomegaly. Pancreas: No mass or duct dilation. Adrenals: No mass. Kidneys: Mild, diffuse, bilateral renal parenchymal thinning GI tract: No dilation or wall thickening. Lymph nodes: No abdominal or pelvic lymphadenopathy. Mesentery/Peritoneum: No ascites or mass. Pelvis: No mass, ascites or fluid collection. Bones/Soft Tissues: Moderate degenerative changes of the lower thoracic and entire lumbar spine. No suspicious osteolytic or blastic lesions. Bilateral hip osteoarthritis. Assessment and Plan 1. Medicare annual wellness visit, subsequent (Z00.00) Comprehensive review of systems and physical examination performed. Discussed current health status and management of chronic conditions. - Scheduled follow-up in 6 months. - Advised on getting Tdap updated and getting the RSV vaccine. 2. Mixed hyperlipidemia (E78.2) LDL cholesterol has improved from 110 mg/dL two years ago to 84 mg/dL last year and 84 mg/dL this year. HDL cholesterol is 56 mg/dL, and triglycerides are 110 mg/dL. - Continue current lipid management. 3. Elevated fasting blood sugar (R73.01) Recent glucose level was slightly low at 73 mg/dL, but HbA1c remains stable at 4.7%. - Monitor blood glucose levels. 4. GERD without esophagitis (K21.9) Hoarse voice quality (R49.0) Persistent heartburn and hoarseness since March. Previous treatments with omeprazole and Nexium were ineffective. - Ordered H. pylori breath test to be performed after two weeks off Nexium. - Referred to Dr. Bright for further evaluation. - Referred to Dr. Hernández, ENT specialist, to rule out vocal cord polyps. 5. Chronic bronchitis, unspecified chronic bronchitis type (HCC) (J42) Chronic hoarseness noted, which may be related to underlying bronchitis. - Referred to ENT for further evaluation. - cont PRN albuterol though rarely needs. 6. Bilateral carotid artery stenosis (I65.23) Carotid artery stenosis remains stable at less than 50% on both sides, consistent with findings from two years ago. - Continue monitoring. - pt follows with vascaular for management. 7. Abdominal aortic aneurysm (AAA) without rupture, unspecified part (I71.40) Stable condition, no recent changes reported. - Continue following with vascular for management. 8. Anemia, unspecified type (D64.9) Recent CBC shows normal hemoglobin and hematocrit levels; no evidence of anemia. - No specific treatment required at this time. - cont to monitor 9. 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 (I25.83) Condition is stable, managed with current lipid-lowering therapy. - Continue current management. 10. 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 Recent treatment with Rituxan has been adjusted due to high protein levels. 11. 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 - Continue regular follow-ups at [facility]. 12. Thrombocytopenia (D69.6) Platelet count is 151 x 10^9/L, within normal limits. - Continue monitoring platelet levels. 13. Subclavian artery stenosis, right (I77.1) Condition is stable, no recent changes reported. - Continue regular monitoring and f/u with vascular. 14. 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 - Continue regular monitoring. 15. Primary insomnia (F51.01) Patient re ports difficulty sleeping, currently taking trazodone. - Increased trazodone dosage to a full 50 mg tablet at bedtime. - Changed prescription to a 90-day supply. 16. Benign non-nodular prostatic hyperplasia without lower urinary tract symptoms (N40.0) Condition is stable, no significant urinary symptoms reported. - Continue regular monitoring. 17. Erectile dysfunction, unspecified erectile dysfunction type (N52.9) Patient has a prescription for erectile dysfunction medication, with four tablets remaining. - Continue current management. 18. Essential tremor (G25.0) Patient reports worsening tremor, affecting writing and fine motor tasks. - Initiated primidone 50 mg for essential tremor, starting with half a tablet daily for the first week, then increasing to one tablet daily. 19. Advance directive discussed with patient (Z71.89) Patient has a durable power of managing attorney with his son, Driss Sorensen, but no living will. - Patient to provide a copy of the durable power of managing attorney. 20. Diarrhea, unspecified type (R19.7) Patient reports watery stools with irregular bowel movements. - Referred to Dr. Bright for further evaluation. - Continue taking Metamucil gummies for regularity. 21. Encounter for screening examination for other mental health and behavioral disorders (Z13.39) Screening for depression (Z13.31) Patient is currently taking trazodone, which has antidepressant properties. - Continue current trazodone therapy. 22. LUQ pain (R10.12) Mild tenderness noted in the left upper quadrant during physical examination. - Ordered H. pylori breath test to be performed after two weeks off Nexium. - Referred to Dr. Bright for further evaluation. F/u 6 months routine check lipid and A1c prior Jared BECKER I spent a total of 67 minutes on the date of the service which included preparing to see the patient, [id number] patient care, completing clinical documentation, performing a medically appropriate examination, counseling and educating the patient/family/caregiver and ordering medications, tests, or procedures. Recording using Heap software for draft documentation of the visit was discussed with the patient/authorized site safety representative; all questions welcomed and answered. Patient/authorized site safety representative agreed to proceed documented in this encounter [facility] 08-30-2024 Note HNO ID: [id number] Author: JARED ROBERTSON MD Service: ? Author Type: Physician Type: Progress Notes Filed: 08/30/2024 21:36 Note Text: Adarsh Sorensen is a 83 year old male here for a Medicare wellness visit. Medicare Health Risk Assessment General Health Fair Exercise: Minutes/Day 30 min Exercise: Days/Week 5 days Alcohol: Daily Use 2-3 times a week Alcohol: Drinks/Day 1 or 2 Alcohol: 6 or more drinks Never Feel off balance Yes (due to neuropathy) Concerns: Teeth/Dentures No Concerns: Sexual function No Troubled by feelings None of the above Frequency: Eating healthy diet Nearly every day ADLs requiring help None of the above Safety precautions in home/vehicle No (no grab bars in bathroom. Does have rugs in home.) Smoke, vape, chews tobacco No Difficulty hearing No Difficulty seeing No Current Providers Specialists: I have reviewed specialist-related care of the patient in the medical record. Medical/Family history review Reviewed and updated problem list, medical/surgical/family/social history, medications, and allergies. Opioid use review Opioid Medications (last 90 days) No data to display Anxiety/Depression screening PHQ-2 Score: 1 (Lower risk for depression) LUCRECIA-2 Score: 2 (Lower risk for anxiety) Recommendation: no further intervention at this time. Pt does worry about his daughter. Cognitive screening Mini Cog Score: 4 Cognitive screening reviewed and No further action needed (score 3-5). Mini-Cog Patient asked to remember the following three words: Banana, [place] and Chair Visuospatial/Executive Functioning: Clock drawin/2 (Normal clock with all number in correct sequence and position, hands are correct = 2 points, inability or refusal to draw a clock = 0) Three word recall: 2/3 Total score: 4/5 (Total score = word recall score + clock draw score) Functional Observation Was the patient's Timed Up AND Go test unsteady or >= 12 seconds? No Advance Care Planning Surrogate decision maker and/or advance care plan documented Measurements BP 120/64 (BP Site: Left Arm, BP Position: Sitting, BP Cuff Size: Regular Adult) Pulse 60 Resp 16 Ht 181 cm (5' 11.25) Wt 78.3 kg (172 lb 9.6 oz) BMI 23.90 kg/m? Vision Screening: Follows with optometry/ophthalmology Assessment/Plan Medicare annual wellness visit, subsequent (Z00.00) - Counseled on healthy diet and regular exercise - Fall avoidance information provided - Personalized prevention plan provided See below. Chief Complaint Patient presents with: Medicare Wellness Exam HPI Adarsh Sorensen is a 83 year old male who presents here today for a medicare wellness and a routine follow up. Patient with Hx of AAA, Carotid artery disease, CAD, GERD, funez's, elevated fasting blood sugar, Hyperlipidemia, Waldenstrom's macroglobulinemia, Anemia, thrombocytopenia, allergic Rhinitis, insomnia, chronic bronchitis, IBS, BPH as well as those reviewed and addressed below and in ROS. Adarsh reports a persistent burning sensation in the stomach since March, which he describes as severe heartburn. This sensation is present throughout the day and occasionally wakes him at night. He has tried omeprazole and [id number] Nexium, both of which provided temporary relief but are no longer effective. He denies current use of any heartburn medications. He also reports a hoarse voice, which he attributes to acid reflux, and occasional sore throats. He denies experiencing a sour or acid taste in the morning, but notes dry mouth. He denies any lumps or swelling in the neck, and denies wheezing or dyspnea. He has not needed to use his rescue inhaler and denies hemoptysis or colored mucus production. Adarsh also reports irregular bowel movements, with periods of constipation followed by episodes of watery diarrhea. He has been trying to increase his fiber intake by eating broccoli and green beans, but this has not made a difference. He denies melena or hematochezia. He reports some nausea, but not frequent, and denies emesis. He has lost 5 pounds since March. Adarsh also reports tremors in his legs and hands, which are getting worse. He describes these as muscle twitches in the legs. In the hands they are more noticeable when he is writing. He denies any changes in his tolerance to heat or cold, and denies any recent increase in thirst. He denies syncope, seizures, or tremors. He also reports occasional palpitations, with his heart rate varying from 40 to 80 bpm, but denies seeing a quality analyst/technical writer. Adarsh also reports difficulty sleeping, taking a full tablet of trazodone at night, which helps him fall asleep but he still wakes up in the middle of the night. He denies any burning or blood in his urine, but reports getting up a couple of times at night to urinate. He also reports a lesser stream at night, which he attributes to taking Crestor. He denies any unusual muscle or join (more content not included)... [facility] 07-17-2024 History of Present illness Narrative Follow-Up/Established Patient Visit - [facility] [place] [facility] SERVICE DATE: July 17, 2024 SERVICE TIME: 11:00am Reason for Return Visit: This is Mr. 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 This patient was last seen on here on 08/23/23. ASSESSMENT / PLAN: This is Adarsh Sorensen, a 83 year old male with: 1. Anti-MAG demyelinating polyneuropathy 2. Mild folate deficiency 3. 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 Essential tremor L hand 5. Degenerative lumbar spine disease -Riuximab 1000mg q6mo - discussed if numbers still doing well to decrease to 500mg q6mo. -Recheck MAG, CD19, IgG levels -Discussed treatment options for ET - he doesn't feel need for trial of propranolol at this time -Monitor lumbar spine symptoms -RTC in 6 months -When available, results of the above investigations and possible further recommendations will be communicated to the patient via telephone/Extolehart. Patient to call office if not contacted after expected testing turnaround time. 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 He developed unsteadiness when walking and had a fall. 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 04/06/23: Rituxan 1000mg dose 1 04/21/23: Rituxan 1000mg dose 2 09/21/23: Rituxan 1000mg dose 3 03/07/24: Rituxan 1000mg dose 4 Interval HPI: Getting a lot of tingling in the L > > R foot. Minimal pain. Also some very rare tingling/pain in the back of both thighs. Balance perhaps minimally worse but walking overall has been doing well. Bad heart burn since March. Waiting to follow-up with GI. Tolerating Rituxan well. No worsening infections he notes. Previous Data: Lab Results Component Value Date Hemoglobin A1C 4.8 01/08/2024 Vitamin B12 399 04/03/2023 MPA Result M protein is present. (A) 03/20/2023 MPA [place]/Lambda Ratio 3.44 (H) 02/25/2012 Interpretation (MPA) 03/20/2023 Atypical restricted bands are present in the IgM and kappa regions. Consistent with IgM kappa monoclonal gammopathy. Staff Review (MPA) Reviewed by Dr. Jaren Hagan MD 03/20/2023 K/L Ratio, Serum 7.14 (H) 03/20/2023 Sed Rate, Westergren 26 (H) 07/02/2023 CRP <0.3 04/03/2024 Angiotensin Converting Enzyme 24 03/20/2023 CK 60 11/26/2001 TSH 3.770 05/12/2023 Asialo-GM1 Antibodies, IgG/IgM 7 03/20/2023 GM1 Antibodies, IgG/IgM 8 03/20/2023 GM2 Antibodies 8 03/20/2023 GD1a Antibodies, IgG/IgM 37 03/20/2023 GD1b Antibodies, IgG/IgM 20 03/20/2023 GQ1b Antibodies, IgG/IgM 19 03/20/2023 Lab Results Component Value Date Hepatitis B Core Ab, Total Negative 09/21/2023 Hep C Antibody IA Negative 09/21/2023 Hep B Surface Ab, Qual Negative 09/21/202303/2023 VEGF: 35 MAG Ab IgM, FARIDA: >70,000(H) Contactin, Neurofascin: Negative 06/2023 MAG Ab IgM, FARIDA: >70,000 11/2023 MAG Ab IgM: > 70,000 EMG/NCS (03/19/23): -Absent sensory responses in the upper and lower limbs, sparing the superficial radial response. -Low amplitude motor responses in the lower limb, with notably prolonged distal latencies, slowed conduction velocities, evidence of conduction block (52% at the peroneal recording EDB, 36% at the tibial recording AH) with temporal dispersion. -The median motor response is prolonged, but normal in amplitude. The ulnar motor response (recording ADM) is low amplitude and minimally prolonged. -F responses are markedly prolonged in the upper and lower limb. -Absent H reflex which may be normal given the patient's age. -Chronic motor axon loss with a distal predominance in the upper and lower limb, with sparse active denervation in medial gastrocnemius and the paraspinals. 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 CURRENT MEDICATIONS Current Outpatient Medications Medication Sig traZODone (DESYREL) 50 mg tablet Take 1/2 -1 table 30 min prior to bed. rosuvastatin (CRESTOR) 20 mg tablet Take 1 tablet by mouth once daily. omeprazole (PRILOSEC) 40 mg capsule Take 1 capsule by mouth once daily. lactulose 10 gram/15 mL solution Take 30 ml twice a day. (Patient taking differently: Take 30 g by mouth two times a day as needed. Take 30 ml twice a day. As needed) aspirin 81 mg chewable tablet Take 81 mg by mouth once daily. rituximab/hyaluronidase,human (RITUXAN HYCELA SUBCUTANEOUS) Inject subcutaneously. albuterol HFA (PROAIR HFA) 90 mcg/actuation inhaler Inhale 2 Puffs as instructed every 6 hours as needed. Tadalafil (CIALIS) 20 mg tablet Take 1 tablet by mouth once daily as needed. Take 1-2 hours before sexual activity. (Patient not taking: Reported on 07/17/2024) No current facility-administered medications for this visit. All relevant past medical, surgical, social and family history reviewed, confirmed, and updated as necessary. ALLERGIES ALLERGIES Allergen Reactions Elavil [Amitriptyli* Other: See Comments Tired and depressed feeling OBJECTIVE: REVIEW OF SYSTEMS: Review of symptoms including constitutional, eyes, ENT, neck, respiratory, cardiovascular, GI, , musculoskeletal, hematologic, oncologic, endocrine, and psychiatric categories is unchanged except for as noted in HPI. PHYSICAL EXAM: BP 136/79 (BP Site: Left Arm, BP Position: Sitting, BP Cuff Size: Large Adult) Pulse (!) 46 Ht 182.9 cm (6') Wt 80.7 kg (178 lb) SpO2 98% BMI 24.14 kg/m General appearance: Awake and alert. No distress. Cooperative with exam. Focused Neurological Exam: No major changes from prior exam except as noted in bold. Motor: 5/5 in LEs. Gait: Narrow. Poor tandem, multiple missteps. Coord: FTN intact bilaterally. To aid with communication, patients (and primary care physicians) can sign up for [employer] (or [employer]), which allows online appointment scheduling, transmission of labs results and chart notes, and secure email communication. To establish either account, visit [email or web address]. This note was partially created using voice recognition software and is inherently subject to errors including those of syntax and sound-alike substitutions which may escape proofreading. In such instances, original meaning may be extrapolated by contextual derivation. Maxwell Wharton DO Staff, [facility] [place] I spent a total of 35 minutes on the date of the service which included preparing to see the patient, [id number] patient care, completing clinical documentation, performing a medically appropriate examination, counseling and educating the patient/family/caregiver, and ordering medications, tests, or procedures. CC: Jared Robertson [address] [place] [address] documented in this encounter [facility] 07-17-2024 Note HNO ID: [id number] Author: MAXWELL WHARTON DO Service: ? Author Type: Physician Type: Progress Notes Filed: 07/17/2024 12:36 Note Text: Follow-Up/Established Patient Visit - [facility] [place] [facility] SERVICE DATE: July 17, 2024 SERVICE TIME: 11:00am Reason for Return Visit: This is Mr. 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 This patient was last seen on here on 08/23/23. ASSESSMENT / PLAN: This is Adarsh Sorensen, a 83 year old male with: 1. Anti-MAG demyelinating polyneuropathy 2. Mild folate deficiency 3. 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 Essential tremor L hand 5. Degenerative lumbar spine disease -Riuximab 1000mg q6mo - discussed if numbers still doing well to decrease to 500mg q6mo. -Recheck MAG, CD19, IgG levels -Discussed treatment options for ET - he doesn't feel need for trial of propranolol at this time -Monitor lumbar spine symptoms -RTC in 6 months -When available, results of the above investigations and possible further recommendations will be communicated to the patient via telephone/MyChart. Patient to call office if not contacted after expected testing turnaround time. 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 He developed unsteadiness when walking and had a fall. 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 04/06/23: Rituxan 1000mg dose 1 04/21/23: Rituxan 1000mg dose 2 09/21/23: Rituxan 1000mg dose 3 03/07/24: Rituxan 1000mg dose 4 Interval HPI: Getting a lot of tingling in the L > > R foot. Minimal pain. Also some very rare tingling/pain in the back of both thighs. Balance perhaps minimally worse but walking overall has been doing well. Bad heart burn since March. Waiting to follow-up with GI. Tolerating Rituxan well. No worsening infections he notes. Previous Data: Lab Results Component Value Date Hemoglobin A1C 4.8 01/08/2024 Vitamin B12 399 04/03/2023 MPA Result M protein is present. (A) 03/20/2023 MPA Georgiana/Lambda Ratio 3.44 (H) 02/25/2012 Interpretation (MPA) 03/20/2023 Atypical restricted bands are present in the IgM and kappa regions. Consistent with IgM kappa monoclonal gammopathy. Staff Review (MPA) Reviewed by Dr. Jaren Hagan MD 03/20/2023 K/L Ratio, Serum 7.14 (H) 03/20/2023 Sed Rate, Westergren 26 (H) 07/02/2023 CRP <0.3 04/03/2024 Angiotensin Converting Enzyme 24 03/20/2023 CK 60 11/26/2001 TSH 3.770 05/12/2023 Asialo-GM1 Antibodies, IgG/IgM 7 03/20/2023 GM1 Antibodies, IgG/IgM 8 03/20/2023 GM2 Antibodies 8 03/20/2023 GD1a Antibodies, IgG/IgM 37 03/20/2023 GD1b Antibodies, IgG/IgM 20 03/20/2023 GQ1b Antibodies, IgG/IgM 19 03/20/2023 Lab Results Component Value Date Hepatitis B Core Ab, Total Negative 09/21/2023 Hep C Antibody IA Negative 09/21/2023 Hep B Surface Ab, Qual Negative 09/21/202303/2023 VEGF: 35 MAG Ab IgM, FARIDA: >70,000(H) Contactin, Neurofascin: Negative 06/2023 MAG Ab IgM, FARIDA: >70,000 11/2023 MAG Ab IgM: > 70,000 EMG/NCS (03/19/23): -Absent sensory responses in the upper and lower limbs, sparing the superficial radial response. -Low amplitude motor responses in the lower limb, with notably prolonged distal latencies, slowed conduction velocities, evidence of conduction block (52% at the peroneal recording EDB, 36% at the tibial recording AH) with temporal dispersion. -The median motor response is prolonged, but normal in amplitude. The ulnar motor response (recording ADM) is low amplitude and minimally prolonged. -F responses are markedly prolonged in the upper and lower limb. -Absent H reflex which may be normal given the patient's age. -Chronic motor axon loss with a distal predominance in the upper and lower limb, with sparse active denervation in medial gastrocnemius and the paraspinals. 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 CURRENT MEDICATIONS Current Outpatient Medications Medication Sig traZODone (DESYREL) 50 mg tablet Take 2 -1 table 30 mi (more content not included)... [facility] 04-12-2024 History of Present illness Narrative Radiology Service Progress Note PATIENT NAME: Adarsh Sorensen DATE OF SERVICE: April 12, 2024 TIME: 4:10 PM PATIENT IDENTITY VERIFICATION COMPLETED USING TWO (2) IDENTIFIERS: Name and Date of confirmed by patient verbally. FALL SCREENING: Has the patient had 2 falls in the last year or 1 fall with injury or currently using an Ambulatory Assistive Device (Walker, Cane, Wheelchair, Crutches, etc.)? No PATIENT GENDER DATA: Assigned male at PATIENT RELEVANT IMPLANT DATA REVIEWED: Not Applicable PATIENT PRESENTS WITH AN IMPLANTABLE OR ATTACHED PRESS FEEDER BROOMCORN: No RADIOLOGY DEPARTMENT: General X-ray: Exam(s) Completed: Lower Extremity X-Ray(s): Foot, Left and Wt. Bearing PERIPHERAL IV DATA: Not applicable SIGNED BY: Benny Shelton April 12, 2024 4:10 PM documented in this encounter [facility] 04-12-2024 Note HNO ID: [id number] Author: MARTHA MAKI Tech Service: Radiology Author Type: Horologist Apprentice Type: Progress Notes Filed: 04/12/2024 16:10 Note Text: Radiology Service Progress Note PATIENT NAME: Adarsh Sorensen DATE OF SERVICE: April 12, 2024 TIME: 4:10 PM PATIENT IDENTITY VERIFICATION COMPLETED USING TWO (2) IDENTIFIERS: Name and Date of confirmed by patient verbally. FALL SCREENING: Has the patient had 2 falls in the last year or 1 fall with injury or currently using an Ambulatory Assistive Device (Walker, Cane, Wheelchair, Crutches, etc.)? No PATIENT GENDER DATA: Assigned male at PATIENT RELEVANT IMPLANT DATA REVIEWED: Not Applicable PATIENT PRESENTS WITH AN IMPLANTABLE OR ATTACHED PRESS FEEDER BROOMCORN: No RADIOLOGY DEPARTMENT: General X-ray: Exam(s) Completed: Lower Extremity X-Ray(s): Foot, Left and Wt. Bearing PERIPHERAL IV DATA: Not applicable SIGNED BY: Benny Shelton April 12, 2024 4:10 PM [facility] 04-12-2024 Note HNO ID: [id number] Author: SOFIA BOYCE, ? Service: ? Author Type: Physician Type: Progress Notes Filed: 04/15/2024 06:10 Note Text: FOLLOW UP PODIATRIC OFFICE VISIT Chief Complaint: This 83 year old who presents for evaluation of left foot. Patient states that for the past week, he has noticed his left foot become red and swollen. He states that he wore a cheap boot and since then, he developed pain, redness and swelling He has difficult time walking He is scheduled to go on a cruise tomorrow PAIN EVALUATION 04/12/2024 1508 Pain Level: 8 5-8/10 Pain Location: Foot-Left Description: Sharp Duration Amount of Time: 5 Duration Units: Days Frequency: Continuous Intervention/Comfort measure: Relaxation;Reposition Hemoglobin A1C Date Value Ref Range Status 01/08/2024 4.8 4.3 - 5.6 % Final Comment: [place] [employer] guidelines indicate that patients with HgbA1c in the range 5.7-6.4% are at increased risk for development of diabetes, and intervention by lifestyle modification may be beneficial. HgbA1c greater or equal to 6.5% is considered diagnostic of diabetes. 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 [...] 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 10/07/2015 DDD (degenerative disc disease), lumbar 10/07/2015 Degeneration of lumbar or lumbosacral intervertebral disc Diaphragmatic hernia without mention of obstruction or gangrene Elevated fasting blood sugar 11/18/2017 Enlargement of lymph nodes Erectile dysfunction 10/07/2015 Family history of dementia 10/07/2015 First degree AV block 01/12/2024 GERD without esophagitis 10/07/[address] 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 pt to go see Dr. 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 W/U with event monitor in past was normal per cardio. past medical history skin cancer forehead--unsure which kind Primary insomnia 10/07/2015 Psoriasis Rosacea 11/11/2016 Skin cancer screening 07/09/2023 Seeing [facility] Subclavian artery stenosis, right (HCC) 06/17/2017 [place] 06/16/2017 50-99% Thrombocytopenia (HCC) 10/07/2015 Waldenstrom's macroglobulinemia 10/07/2015 Current Outpatient Medications Medication Sig Tadalafil (CIALIS) 20 mg tablet Take 1 tablet by mouth once daily as needed. Take 1-2 hours before sexual activity. rosuvastatin (CRESTOR) 20 mg tablet Take 1 tablet by mouth once daily. lactulose 10 gram/15 mL solution Take 30 ml twice a day. (Patient taking differently: Take 30 ml twice a day. As needed) aspirin 81 mg chewable tablet Take 81 mg by mouth once daily. rituximab/hyaluronidase,human (RITUXAN HYCELA SUBCUTANEOUS) Inject subcutaneously. albuterol HFA (PROAIR HFA) 90 mcg/actuation inhaler Inhale 2 Puffs as instructed every 6 hours as needed. traZODone (DESYREL) 50 mg tablet Take 1/2 -1 table 30 min prior to bed. omeprazole (PRILOSEC) 40 mg capsule Take 1 capsule by mouth once daily. No current facility-administered medications for this visit. ALLERGIES Allergen Reactions Elavil [Amitriptyli* Other: See Comments Tired and depressed feeling PAST SURGICAL HISTORY Procedure Laterality Date 2D ECHO (EXEP) 01/30/2014 EF=60%, LVH, no valve abnormalities COLONOSCOPY 09/21/2014 Dr. Bright, polyp, repeat 3 yrs COLONOSCOPY 02/17/2018 repeat 3 yrs, Dr. Bright COLONOSCOPY W/BIOPSY SINGLE/MULTIPLE 11/22/2007 ENDOSCOPY UPPER-EGD/M24 LAP, REVISION MIKA FUNDOPLASTY 03/20/[address] Layla VORA SURG CHOLECYSTECTOMY W/CHOLA (more content not included)... [facility] 04-12-2024 History of Present illness Narrative Images from the original note were not included. FOLLOW UP PODIATRIC OFFICE VISIT Chief Complaint: This 83 year old who presents for evaluation of left foot. Patient states that for the past week, he has noticed his left foot become red and swollen. He states that he wore a cheap boot and since then, he developed pain, redness and swelling He has difficult time walking He is scheduled to go on a cruise tomorrow PAIN EVALUATION 04/12/2024 1508 Pain Level: 8 5-8/10 Pain Location: Foot-Left Description: Sharp Duration Amount of Time: 5 Duration Units: Days Frequency: Continuous Intervention/Comfort measure: Relaxation;Reposition Hemoglobin A1C Date Value Ref Range Status 01/08/2024 4.8 4.3 - 5.6 % Final Comment: [place] [employer] guidelines indicate that patients with HgbA1c in the range 5.7-6.4% are at increased risk for development of diabetes, and intervention by lifestyle modification may be beneficial. HgbA1c greater or equal to 6.5% is considered diagnostic of diabetes. 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 [...] 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 10/07/2015 DDD (degenerative disc disease), lumbar 10/07/2015 Degeneration of lumbar or lumbosacral intervertebral disc Diaphragmatic hernia without mention of obstruction or gangrene Elevated fasting blood sugar 11/18/2017 Enlargement of lymph nodes Erectile dysfunction 10/07/2015 Family history of dementia 10/07/2015 First degree AV block 01/12/2024 GERD without esophagitis 10/07/[address] 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 pt to go see Dr. 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 W/U with event monitor in past was normal per cardio. past medical history skin cancer forehead--unsure which kind Primary insomnia 10/07/2015 Psoriasis Rosacea 11/11/2016 Skin cancer screening 07/09/2023 Seeing [facility] Subclavian artery stenosis, right (HCC) 06/17/2017 [place] 06/16/2017 50-99% Thrombocytopenia (HCC) 10/07/2015 Waldenstrom's macroglobulinemia 10/07/2015 Current Outpatient Medications Medication Sig Tadalafil (CIALIS) 20 mg tablet Take 1 tablet by mouth once daily as needed. Take 1-2 hours before sexual activity. rosuvastatin (CRESTOR) 20 mg tablet Take 1 tablet by mouth once daily. lactulose 10 gram/15 mL solution Take 30 ml twice a day. (Patient taking differently: Take 30 ml twice a day. As needed) aspirin 81 mg chewable tablet Take 81 mg by mouth once daily. rituximab/hyaluronidase,human (RITUXAN HYCELA SUBCUTANEOUS) Inject subcutaneously. albuterol HFA (PROAIR HFA) 90 mcg/actuation inhaler Inhale 2 Puffs as instructed every 6 hours as needed. traZODone (DESYREL) 50 mg tablet Take 1/2 -1 table 30 min prior to bed. omeprazole (PRILOSEC) 40 mg capsule Take 1 capsule by mouth once daily. No current facility-administered medications for this visit. ALLERGIES Allergen Reactions Elavil [Amitriptyli* Other: See Comments Tired and depressed feeling PAST SURGICAL HISTORY Procedure Laterality Date 2D ECHO (EXEP) 01/30/2014 EF=60%, LVH, no valve abnormalities COLONOSCOPY 09/21/2014 Dr. Bright, polyp, repeat 3 yrs COLONOSCOPY 02/17/2018 repeat 3 yrs, Dr. Bright COLONOSCOPY W/BIOPSY SINGLE/MULTIPLE 11/22/2007 ENDOSCOPY UPPER-EGD/M24 LAP, REVISION MIKA FUNDOPLASTY 03/20/[address] Layla [facility]ERSONS SURG CHOLECYSTECTOMY W/CHOLANGIOGRAPHY 04/12/2009 PAST SURGICAL HISTORY OF 11/2014 AAA repair PAST SURGICAL HISTORY OF 2015 both eyes cataract removal. PAST SURGICAL HISTORY OF 10/13/2017 right shoulder surgery per [facility] UMBILICAL HRNA 5 YRS/> REDUCIBLE 04/12/2009 STRESS TEST 02/27/2014 WNL Physical Exam: OBJECTIVE: Constitutional: Pt is a well developed 83 year old male who is alert, oriented, cooperative and in no apparent distress. Eyes: Following during examination. No redness or drainage. Respiratory: RR normal and nonlabored. Even breathing. No evidence of distress. Psychology: Patient is engaged during conversation. Normal affect and mood. Does not appear depressed or anxious. NVSI unchanged from previous visit. Dermatological: Nails 1-5 b/l are normal. Webspaces clean and dry 1-4 b/l. Skin appears well hydrated and supple. good color, texture, turgor. No open lesions present. No callosities present. Musculoskeletal/Orthopaedic: Patient has pain to palpation of left 5th metatarsal styloid process Mild redness is present to the left foot but resolves with elevation + swelling is present to left foot No calf pain present. ASSESSMENT: (M79.672) Pain in left foot (primary encounter diagnosis) PLAN: Discussed pain in left foot. Suspect component of bursitis from wearing a poorly supportive shoe. I am going to get xray to assure no acute bone injury. Suspect no acute findings. Of note, he does have history of fracture to this 5th metatarsal. Supsect it could be partial or incomplete union but since he has no pain unitl now, could treat as asymptomatic nonunion. I am going to place patient on oral steroid. If condition fails to improve within 3 days, can take an antibiotic but I favor more inflammation Xrays performed today show no change to prior xrays obtained in the past. Partial healing of known metatarsal fracture Sofia Boyce DPM [facility] INTAKE FLOWSHEET DATA Pain Pain Level: 8 (5-8/10) Pain Location: Foot-Left Description: Sharp Duration Amount of Time: 5 Duration Units: Days Frequency: Continuous Intervention/Comfort measure: Relaxation, Reposition Patient presents with: Left Foot - Established Patient, Pain Patient presents for left lateral foot pain, redness, and swelling. States that it began earlier this week a day after wearing a different pair of shoes that were not very supportive. States that he has tried Tylenol and soaked it in epsom salt. [facility] 12/27/23 documented in this encounter [facility] 04-12-2024 Note HNO ID: [id number] Author: SAKINA WISE RN Service: ? Author Type: Registered Nurse Type: Progress Notes Filed: 04/15/2024 06:10 Note Text: [facility] INTAKE FLOWSHEET DATA Pain Pain Level: 8 (5-810) Pain Location: Foot-Left Description: Sharp Duration Amount of Time: 5 Duration Units: Days Frequency: Continuous Intervention/Comfort measure: Relaxation, Reposition Patient presents with: Left Foot - Established Patient, Pain Patient presents for left lateral foot pain, redness, and swelling. States that it began earlier this week a day after wearing a different pair of shoes that were not very supportive. States that he has tried Tylenol and soaked it in epsom salt. [facility] 12/27/23 [facility] 04-05-2024 Telephone encounter Note Patient calls and notified of results. Patient verbalizes understanding. Enrique Jorge RN [facility] 04-05-2024 Miscellaneous Notes Patient calls and notified of results. Patient verbalizes understanding. Enrique Jorge RN Left message for pt to contact office. Jey Pablo LPN Let patient know hi C-reactive protein was normal. documented in this encounter [facility] 04-05-2024 Telephone encounter Note Left message for pt to contact office. Jey Pablo LPN [facility] 04-04-2024 Telephone encounter Note Let patient know hi C-reactive protein was normal. [facility] 03-24-2024 Note HNO ID: [id number] Author: JEY PABLO LPN Service: ? Author Type: LICENSED NURSE Type: Progress Notes Filed: 03/24/2024 07:38 Note Text: Scan on 03/23/2024 5:01 PM by Tangela Erazo PA-C: Ultrasound Scan on 03/23/2024 5:00 PM by Tangela Erazo PA-C: Ultrasound [facility] 03-24-2024 History of Present illness Narrative Scan on 03/23/2024 5:01 PM by Tangela Erazo PA-C: Ultrasound Scan on 03/23/2024 5:00 PM by Tangela Erazo PA-C: Ultrasound documented in this encounter [facility] 03-22-2024 History of Present illness Narrative Chief Complaint Patient presents with: 6 Month Exam HPI Adasrh Sorensen is a 83 year old male who presents here today for Above Complaints. and Chronic Medical Conditions.. Patient with Hx of AAA, Carotid artery disease, CAD, GERD, funez's, elevated fasting blood sugar, Hyperlipidemia, Waldenstrom's macroglobulinemia, Anemia, thrombocytopenia, allergic Rhinitis, insomnia, chronic bronchitis, IBS, BPH as well as those reviewed and addressed below and in ROS. Patient has been doing well and feeling much better. Has a mild lingering cough that is improving. He plans to see Dr. Bright in June for his persistent diarrhea. He has not been sleeping well. Falls asleep ok but then wakes up and can't fall back asleep. Has been getting some twinges of pain in the left temporal area off and on. No pain with chewing. It is tax season and he has had some stress. He was at the [facility] last week for his oncology appt and his BP was 160/low 80's. On repeat it was about the same. Is going on a cruise in the near future. Past medical history, appointments, medications, allergies reviewed. 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 [...] 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 10/07/2015 DDD (degenerative disc disease), lumbar 10/07/2015 Degeneration of lumbar or lumbosacral intervertebral disc Diaphragmatic hernia without mention of obstruction or gangrene Elevated fasting blood sugar 11/18/2017 Enlargement of lymph nodes Erectile dysfunction 10/07/2015 Family history of dementia 10/07/2015 First degree AV block 01/12/2024 GERD without esophagitis 10/07/[address] 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 pt to go see Dr. 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 W/U with event monitor in past was normal per cardio. past medical history skin cancer forehead--unsure which kind Primary insomnia 10/07/2015 Psoriasis Rosacea 11/11/2016 Skin cancer screening 07/09/2023 [facility] Subclavian artery stenosis, right (HCC) 06/17/2017 [place] 06/16/2017 50-99% Thrombocytopenia (HCC) 10/07/2015 Waldenstrom's macroglobulinemia 10/07/2015 Previous Surgical History PAST SURGICAL HISTORY Procedure Laterality Date 2D ECHO (EXEP) 01/30/2014 EF=60%, LVH, no valve abnormalities COLONOSCOPY 09/21/2014 Dr. Bright, polyp, repeat 3 yrs COLONOSCOPY 02/17/2018 repeat 3 yrs, Dr. Bright COLONOSCOPY W/BIOPSY SINGLE/MULTIPLE 11/22/2007 ENDOSCOPY UPPER-EGD/M24 LAP, REVISION MIKA FUNDOPLASTY 03/20/[address] Rich LAPS SURG CHOLECYSTECTOMY W/CHOLANGIOGRAPHY 04/12/2009 PAST SURGICAL [...] on File Prior to Visit Medication Sig azithromycin (ZITHROMAX Z-CARIDAD) 250 mg tablet 2 tablets by mouth first day then 1 tablet the next 4 days rosuvastatin (CRESTOR) 20 mg tablet Take 1 tablet by mouth once daily. omeprazole (PRILOSEC) 40 mg capsule Take 1 capsule by mouth once daily. lactulose 10 gram/15 mL solution Take 30 ml twice a day. aspirin 81 mg chewable tablet Take 81 mg by mouth once daily. rituximab/hyaluronidase,human (RITUXAN HYCELA SUBCUTANEOUS) Inject subcutaneously. albuterol HFA (PROAIR HFA) 90 mcg/actuation inhaler Inhale 2 Puffs as instructed every 6 hours as needed. No current facility-administered medications on file prior to visit. Social History Social History Tobacco Use Smoking status: Former Current packs/day: 0.00 Average packs/day: 1 pack/day for 8.0 years (8.0 ttl pk-yrs) Types: Cigarettes Start date: 02/15/1966 Quit date: 02/15/1974 Years since quittin.1 Smokeless tobacco: Never Tobacco comments: NO EXPOSURE TO 2ND HAND SMOKE Vaping Use Vaping status: Never Used Substance Use Topics Alcohol use: Yes Comment: occasionally Drug use: No Review of Symptoms REVIEW OF SYSTEMS GENERAL: No weight loss, malaise or fevers NECK: Negative for lumps, goiter, pain and significant neck swelling RESPIRATORY: Negative for cough, hemoptysis, wheezing, COPD, dyspnea or shortness of breath CARDIOVASCULAR: Negative for chest pain, leg swelling, hypertension, CHF or palpitations GI: No increased nausea, vomiting compared to just the occasional. No heartburn or reflux symptoms. Still having issues wit the diarrhea. HEMATOLOGY/LYMPHOLOGY: Negative for prolonged bleeding, bruising easily or swollen nodes ENDOCRINE: Negative for cold or heat intolerance, polyuria, polydipsia and goiter NEURO: No history of headaches, syncope, paralysis, seizures or tremors. No weakness in his extremities. No slurring words and no facial droop. EXAM: BP 144/66 Pulse (!) 55 Ht 182.9 cm (6') Wt 80.3 kg (177 lb) SpO2 98% BMI 24.01 kg/m BP 122/58 Pulse (!) 55 Ht 182.9 cm (6') Wt 80.3 kg (177 lb) SpO2 98% BMI 24.01 kg/m Last 5 Encounter Wt Readings: Date: Wt: 03/22/2024 80.3 kg (177 lb) 03/07/2024 80.3 kg (177 lb) 02/23/2024 78 kg (172 lb) 02/20/2024 79.5 kg (175 lb 4.3 oz) 01/12/2024 78.9 kg (174 lb) General Appearance: Well appearing, alert, in no acute distress, well-hydrated, well nourished.. Eyes: Anicteric sclera. Pupils are equally round and reactive to light. Extraocular movements are intact. . Neck: Supple, no adenopathy; thyroid symmetric, normal size, no bruits. Lungs: Lungs clear to auscultation. No wheezing, rhonchi, rales.. Heart: RRR without murmur, gallop, or rubs. No ectopy. Abdomen: Normal abdominal exam, Abdomen soft, non-tender. Bowel sounds normal. No masses, organomegaly. Extremities: No deformities, edema, skin discoloration, Good capillary refill. . Musculoskeletal: No joint swelling, deformity, or tenderness. Peripheral Pulses: Normal. The temporal pulses are not bounding and no tenderness to palpation over the temporal arteries. Health Maintenance List Covid-19 Vaccine( season) due on 10/17/2023 Advance Directive Discussion due on 02/16/2024 DTaP,Tdap,Td Vaccine(2 - Td or Tdap) due on 07/08/2024 RSV Vaccine(1 - 1-dose 75+ series) due on 07/08/2024 Depression Screening due on 07/08/2024 Anxiety Screening due on 07/08/2024 LDL Cholesterol due on 01/07/2025 Diabetes Screening due on 01/07/2027 Influenza Vaccine Completed Shingrix Vaccine Completed Pneumococcal Vaccine: 50+ Completed HPV Vaccine Aged Out Colorectal Cancer Screening Discontinued Data reviewed Latest Ref Rng 04/03/2023 05/12/2023 01/08/2024 01/14/2024 WBC 3.70 - 11.00 k/uL 5.83 RBC 4.20 - 6.00 m/uL 4.22 Hemoglobin 13.0 - 17.0 g/dL 13.6 Hematocrit 39.0 - 51.0 % 40.7 MCV 80.0 - 100.0 fL 96.4 MCH 26.0 - 34.0 pg 32.2 MCHC 30.5 - 36.0 g/dL 33.4 RDW-CV 11.5 - 15.0 % 12.8 Platelet Count 150 - 400 k/uL 153 MPV 9.0 - 12.7 fL 10.4 Neut% % 69.0 Abs Neut (ANC) 1.45 - 7.50 k/uL 4.02 Lymph% % 19.2 Abs Lymph 1.00 - 4.00 k/uL 1.12 [place]% % 7.7 Abs [place] <0.87 k/uL 0.45 Eosin% % 3.4 Abs Eosin <0.46 k/uL 0.20 Baso% % 0.5 Abs Baso <0.11 k/uL 0.03 Immature Gran % % 0.2 IMMATURE GRANS (ABS) <0.10 k/uL <0.03 NRBC /100 WBC 0.0 Absolute nRBC <0.01 k/uL <0.01 DTYPE Auto Protein, Total 6.3 - 8.0 g/dL 6.4 6.6 Albumin 3.9 - 4.9 g/dL 3.8 (L) 4.1 Calcium 8.5 - 10.2 mg/dL 9.0 9.2 Bilirubin, Total 0.2 - 1.3 mg/dL 1.0 0.9 Alkaline Phosphatase 38 - 113 U/L 83 93 AST 14 - 40 U/L 15 22 ALT 10 - 54 U/L 9 (L) 15 Glucose 74 - 99 mg/dL 112 (H) 105 (H) BUN 9 - 24 mg/dL 22 21 Creatinine 0.73 - 1.22 mg/dL 1.21 1.15 Sodium 136 - 144 mmol/L 141 142 Potassium 3.7 - 5.1 mmol/L 3.6 (L) 4.4 Chloride 98 - 107 mmol/L 104 105 CO2 22 - 30 mmol/L 28 27 Anion Gap 8 - 15 mmol/L 9 10 eGFR >=60 mL/min/1.73m 60 63 Total Cholesterol, Nonfasting <200 mg/dL 184 164 Triglycerides, Nonfasting <150 mg/dL 73 74 HDL Cholesterol, Nonfasting >39 mg/dL 59 60 LDL Cholesterol, Nonfasting <100 mg/dL 110 (H) 89 Non HDL Cholesterol, Nonfasting <130 mg/dL 125 104 VLDL Cholesterol, Nonfasting <30 mg/dL 15 15 Total Chol/HDL Ratio, Nonfasting <5.10 mg/dL 3.12 2.73 LDL/HDL Ratio, Nonfasting <2.54 mg/dL 1.86 1.48 Bilirubin, Direct <0.2 mg/dL 0.2 (H) Hemoglobin A1C 4.3 - 5.6 % 4.9 4.8 Estimated Average Glucose mg/dL 94 91 Vitamin B12 232 - 1,245 pg/mL 399 Magnesium 1.7 - 2.3 mg/dL 1.9 TSH 0.270 - 4.200 mIU/L 3.770 A/P ASSESSMENT/PLAN: 1. Mixed hyperlipidemia - ICD9: 272.2, ICD10: E78.2 (primary diagnosis) - Controlled - Continue current medications - Counseled on healthy diet and regular exercise 2. Elevated fasting blood sugar - ICD9: 790.21, ICD10: R73.01 - controlled with diet. 3. 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 - ICD9: 414.3, ICD10: I25.83 - clinically stable stress test in Jan 2024 was normal. 4. Bilateral carotid artery stenosis - ICD9: 433.10, 433.30, ICD10: I65.23 - stable and seeing Vascular. 5. Subclavian artery stenosis, right (HCC) - ICD9: 447.1, ICD10: I77.1 - as per #4 6. Waldenstrom's macroglobulinemia - ICD9: 273.3, ICD10: C88.00 - on med managed per Heme/Onc 7. Thrombocytopenia (HCC) - ICD9: 287.5, ICD10: D69.6 - follows with Heme/onc. Stable 8. Neuropathy associated with anti-MAG antibody - ICD9: 356.8, ICD10: G62.89 - seeing Neuromuscular 9. 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 GERD without esophagitis - ICD9: 530.81, ICD10: K21.9 - Continue treatment with Prilosec 40 mg QD 11. Chronic bronchitis, unspecified chronic bronchitis type (HCC) - ICD9: 491.9, ICD10: J42 - stable no changes. 12. Anemia, unspecified type - ICD9: 285.9, ICD10: D64.9 - stable and followed by Heme/Onc. 13. Abdominal aortic aneurysm (AAA) without rupture, unspecified part (HCC) - ICD9: 441.4, ICD10: I71.40 - as per #4 14. Primary insomnia - ICD9: 307.42, ICD10: F51.01 - will trial Trazodone 50 mg 1/2-1 tab QHS. 15. Benign non-nodular prostatic hyperplasia without lower urinary tract symptoms - ICD9: 600.90, ICD10: N40.0 - stable 16. Neuropathy with IgM monoclonal gammopathy (HCC) - ICD9: 273.1, 357.4, ICD10: D47.2, G63 - as per #6 17. Temporal headache - ICD9: 784.0, ICD10: R51.9 Check - C-REACTIVE PROTEIN Requested Prescriptions Signed Prescriptions Disp Refills traZODone (DESYREL) 50 mg tablet 30 tablet 1 Sig: Take 1/2 -1 table 30 min prior to bed. F/u in 6 months for extensive check CMP, Lipid, UA, CBC, B12, Mg prior. I spent a total of 43 minutes on the date of the service which included preparing to see the patient, [id number] patient care, completing clinical documentation, performing a medically appropriate examination, counseling and educating the patient/family/caregiver and ordering medications, tests, or procedures. Jared Robertson MD documented in this encounter [facility] 03-22-2024 Note HNO ID: [id number] Author: JARED ROBERTSON MD Service: ? Author Type: Physician Type: Progress Notes Filed: 03/22/2024 19:53 Note Text: Chief Complaint Patient presents with: 6 Month Exam HPI Adarsh Sorensen is a 83 year old male who presents here today for Above Complaints. and Chronic Medical Conditions.. Patient with Hx of AAA, Carotid artery disease, CAD, GERD, funez's, elevated fasting blood sugar, Hyperlipidemia, Waldenstrom's macroglobulinemia, Anemia, thrombocytopenia, allergic Rhinitis, insomnia, chronic bronchitis, IBS, BPH as well as those reviewed and addressed below and in ROS. Patient has been doing well and feeling much better. Has a mild lingering cough that is improving. He plans to see Dr. Bright in June for his persistent diarrhea. He has not been sleeping well. Falls asleep ok but then wakes up and can't fall back asleep. Has been getting some twinges of pain in the left temporal area off and on. No pain with chewing. It is tax season and he has had some stress. He was at the [facility] last week for his oncology appt and his BP was 160/low 80's. On repeat it was about the same. Is going on a cruise in the near future. Past medical history, appointments, medications, allergies reviewed. 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 [...] 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 10/07/2015 DDD (degenerative disc disease), lumbar 10/07/2015 Degeneration of lumbar or lumbosacral intervertebral disc Diaphragmatic hernia without mention of obstruction or gangrene Elevated fasting blood sugar 11/18/2017 Enlargement of lymph nodes Erectile dysfunction 10/07/2015 Family history of dementia 10/07/2015 First degree AV block 01/12/2024 GERD without esophagitis 10/07/[address] 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 pt to go see Dr. 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 W/U with event monitor in past was normal per cardio. past medical history skin cancer forehead--unsure which kind Primary insomnia 10/07/2015 Psoriasis Rosacea 11/11/2016 Skin cancer screening 07/09/2023 Seeing [facility] Subclavian artery stenosis, right (HCC) 06/17/2017 US 06/16/2017 50-99% Thrombocytopenia (HCC) 10/07/2015 Waldenstrom's macroglobulinemia 10/07/2015 Previous Surgical History PAST SURGICAL HISTORY Procedure Laterality Date 2D ECHO (EXEP) 01/30/2014 EF=60%, LVH, no valve abnormalities COLONOSCOPY 09/21/2014 Dr. Bright, polyp, repeat 3 yrs COLONOSCOPY 02/17/2018 repeat 3 yrs, Dr. Bright COLONOSCOPY W/BIOPSY SINGLE/MULTIPLE 11/22/2007 ENDOSCOPY UPPER-EGD/M24 LAP, REVISION MIKA FUNDOPLASTY 03/20/[address] Layla VORA SURG [...] on File Prior to Visit Medication Sig azithromycin (ZITHROMAX Z-CARIDAD) 250 mg tablet 2 tablets by mouth first day then (more content not included)... [facility] 03-17-2024 History of Present illness Narrative History of Present Illness: Mr. Sorensen presents for 6 month follow up of his WM. Interval History Mr. Sorensen presents today for follow up and evaluation. He continues to be followed by Neurology - diagnosed with a MAG antibody-related polyneuropathy and had treatment with rituximab. He received several doses one year ago and then most recently he reports he received a dose last month. He reports his balance is stable, his neuropathy is stable/the same. He reports a new tremor that they have discussed starting him on medication for. He continues to have GI issues, has since his hiatal hernia repair. He denies fever, night sweats, weight loss, new lymphadenopathy, SOB, CP, nausea, vomiting, constipation, swelling, rash. Disease History: Mr. oSrensen is a 83 y.o. 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 He has been monitored on surveillance and his counts have been stable with no lymphadenopathy. He was seen by Dr. Kaden Calderon, at the [facility] which I believe is associated with [facility], as part of his workup in conjunction with seeing Dr. Calderon. He had a bone marrow biopsy on 03/04/2012 which was remarkable for several circumscribed interstitial lymphoid aggregates composed of small, round lymphocytes that were noted in the clot section. Immuno stains showed that aggregates were composed of CD3-positive T-cells predominantly and with fewer admixed [id number] B cells. These aggregates accounted for less [...] 2 Occupational History Occupation: 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 [...] Social Determinants of Health Financial Resource Strain: Low Risk (09/09/2021) Received from [facility] Overall Financial Resource Strain (CARDIA) Difficulty of Paying Living Expenses: Not hard at all Food Insecurity: No Food Insecurity (09/09/2021) Received from [facility] Hunger Vital Sign Worried About Running Out of Food in the Last Year: Never true Ran Out of Food in the Last Year: Never true Transportation Needs: No Transportation Needs (09/09/2021) Received from [facility] PRAPARE - Transportation Lack of Transportation (Medical): No Lack of Transportation (Non-Medical): No Physical Activity: Insufficiently Active (07/09/2023) Received from [facility] Exercise Vital Sign Days of Exercise per Week: 4 days Minutes of Exercise per Session: 30 min Stress: Stress Concern Present (09/09/2021) Received from [facility] [place] [employer] - Occupational Stress Questionnaire Feeling of Stress : To some extent Social Connections: Unknown (09/09/2021) Received from [facility] Social Connection and Isolation Panel [NHANES] Frequency of Communication with Friends and Family: More than three times a week Frequency of Social Gatherings with Friends and Family: Once a week Active Member of Clubs or Organizations: Yes Attends Club or Organization Meetings: More than 4 times per year Marital Status: Living with partner Housing Stability: Unknown (09/09/2021) Received from [facility], [facility] Housing Stability Vital Sign Unable to Pay for Housing in the Last Year: No Unstable Housing in the Last Year: No Family History Problem Relation Age of Onset Other - Specify Father severe allergy to shellfish, colon cancer Diabetes Father Colorectal Cancer Father 72 Neurologic Disease Mother Alzheimers Neurologic Disease Brother MS Cancer- Other Paternal Grandfather testicular cancer BP 162/68 (BP Position: Sitting) Comment: manual blood pressure Pulse 53 Temp 97.4 F (36.3 C) (Infrared) Resp 18 Wt 79.9 kg (176 lb 3.2 oz) SpO2 98% BMI 23.90 kg/m Smoking Status Former Physical Examination: ECOG Performance Status: Performance status: Karnofsky scale 100 (ECOG grade 0) No limitations General: Alert and oriented, no acute distress. HEENT: PERRL, EOMI. Conjunctiva non-injected. Heart: Regular rate and rhythm, no murmurs. Lungs: Clear to auscultation with no rhonci or wheezes. Abdomen: Soft, non-tender, non-distended. No splenomegaly or hepatomegaly. Musculoskeletal: Normal strength and range of motion. Neurologic: CN intact with no focal neurologic deficits. Skin: No rashes or lesions noted. Extremities: Normal with no edema. Lymph: I do not palpate any cervical, supraclavicular, axillary or inguinal adenopathy. Laboratory Lab Results Component Value Date WBC 5.10 03/17/2024 HGB 14.2 03/17/2024 HCT 40.9 03/17/2024 PLATELET 130 (L) 03/17/2024 MCV 92.5 03/17/2024 Lab Results Component Value Date SODIUM 140 03/17/2024 POTASSIUM 4.3 03/17/2024 CHLORIDE 107 03/17/2024 CO2 29 03/17/2024 BUN 26 (H) 03/17/2024 CREATSERUM 1.07 03/17/2024 Lab Results Component Value Date ALT 19 03/17/2024 AST 21 03/17/2024 ALKPHOS 84 03/17/2024 BILITOTAL 1.2 03/17/2024 IgM 829 and monoclonal protein pending Assessment/Plan: Mr. Sorensen is an 83 yo patient with a history of WM with a low level IgM diagnosed in 2012 who has never required therapy. He was a prior patient of Dr. Jackson who established care in our clinic in March 2016. 1) WM Mr. Sorensen presents today for 6 month follow up. He is doing okay. No B symptoms. He was started on rituximab in Mar 2023 for anti-mg related to his IgM leading to PN (was having balance issues). Labs reviewed, he currently does not have anemia, thrombocytopenia grade 1 (likely related to recent rituximab), monoclonal protein pending. He has no evidence of progressive disease today by history, exam or labs. He has no indication for treatment outside of the rituximab for the anti-Mg. We have previously discussed that there are several options for treatment when required and can include BTK inhibitor +/- CD20 antibody or BR in the frontline treatment setting. Today he asked about research and new developments and we talked about bcl2 inhibitors. 2) PN Following with neurology. Anti-mg high. Started on rituximab in March. Symptoms stabilized. Repeat every 6 months. He reports having last month. He will return in 6 months with labs and exam. I have answered all of his questions. He knows to contact us sooner if he has questions, concerns or issues. documented in this encounter [facility] 03-17-2024 Instructions Lindsay Emerson RN - 03/17/2024 10:30 AM EST Primary Care Team Dr. Suzette Russell CNP- Certified Nurse Practitioner Esdras Barrett RN - Primary Nurse Karlene Tamez RN-Primary Nurse Sabrina Royal Patient Care Dialysis Social Worker [phone] Contact Numbers: Clinic Phone & Appointment Changes: [phone] Clinic For Medication Refills: If possible please notify us the beginning of the week for any Narcotic refills you may need if not coming in that week for an appointment. We attempt to fill them as soon as they come in but Dr. Aguilar is only in the clinic on . Please call your pharmacy to verify when to car pick up driver. Allow one week for refills, please do not let your prescription run out. We will call them in to the pharmacy of your request, using the one listed in your chart if not specified differently. You will not be contacted about the refill except for any questions or concerns. Please call your pharmacy to verify when to car pick up driver. All Paperwork: Please allow up to 2 [...] orders placed or performed in visit on 07/29/23 VISCOSITY, SERUM Result Value Ref Range Viscosity, Serum 1.1 <=1.5 cpoise LACTATE DEHYDROGENASE Result Value Ref Range LD Total 133 100 - 190 U/L BETA 2 MICROGLOBULIN SERUM Result Value Ref Range Beta 2 Microglobulin 3.49 (H) 0.80 - 2.34 mg/L COMPREHENSIVE METABOLIC PANEL Result Value Ref Range Sodium 137 135 - 145 mmol/L Potassium 3.9 3.5 - 5.0 mmol/L Chloride 103 98 - 108 mmol/L BUN 25 7 - 25 mg/dL Creatinine 1.14 0.70 - 1.30 mg/dL Glucose 97 70 - 99 mg/dL Bilirubin Total 1.0 <1.5 mg/dL Albumin 4.0 3.5 - 5.0 g/dL Total Protein 6.9 6.4 - 8.3 g/dL AST 15 10 - 39 U/L ALP 74 32 - 126 U/L Calcium 9.2 8.6 - 10.5 mg/dL CO2 28 21 - 31 mmol/L ALT 10 10 - 52 U/L Bun/Crea Ratio 22 Osmolality (Calculated) 291 278 - 305 mOsm/kg Anion Gap 10 7 - 17 mmol/L eGFR, CKD-EPI, Male 64 >=60 mL/min/1.73m2 SPE SERUM TOTAL PROTEIN Result Value Ref Range Total Protein 6.4 6.4 - 8.3 g/dL PROTEIN ELECTROPHORESIS Result Value Ref Range Albumin 3.6 3.5 - 5.0 g/dL Alpha 1 0.5 (H) 0.2 - 0.4 g/dL Alpha 2 0.7 0.5 - 1.0 g/dL Beta 0.7 0.5 - 1.1 g/dL Gamma 0.8 0.6 - 1.5 g/dL Spe Interpretation There is a zone of restriction in the gamma region with normal remaining polyclonal immunoglobulins. This pattern suggests monoclonal or oligoclonal proteins that may occur in chronic inflammatory diseases (e.g., of liver), or may be idiopathic, or may represent a monoclonal gammopathy. Alpha 1 region is increased which is most often an acute phase response. Interpretation By: Young Harden MD IMMUNOGLOBULINS IGG IGA IGM Result Value Ref Range IGG 533 (L) 600 - 1,560 mg/dL IgA 109 90 - 410 mg/dL IGM 521 (H) 30 - 360 mg/dL IMMUNOFIXATION SERUM Result Value Ref Range Monoclonal 1 320.0 (H) <=0.0 mg/dL Serum Immunofixation IgM kappa monoclonal protein is present. REVIEWED BY: Young Harden MD CBC AND ELECTRONIC DIFF Result Value Ref Range WBC Count 7.00 3.73 - 10.10 K/uL RBC Count 4.15 (L) 4.38 - 5.83 M/uL Hemoglobin 13.3 (L) 13.4 - 16.8 g/dL Hematocrit 38.4 (L) 39.6 - 48.8 % Mean Cell Volume 92.5 79.0 - 94.5 fL Mean Cell Hgb 32.0 26.1 - 33.3 pg Mean Cell Hgb Conc 34.6 31.9 - 36.5 g/dL RBC Distribution 12.9 10.9 - 14.3 % Platelet Count 155 146 - 337 K/uL Mean Platelet Volume 10.1 8.7 - 12.3 fL DIFF STATUS Electronic Differential Segs + Bands Auto 75.6 % Immature Grans % 0.4 % Lymphocyte % Auto 11.7 % Monocyte % Auto 10.3 % Eosinophil % Auto 1.6 % Basophil % Auto 0.4 % Nucleated RBC 0.0 <=0.2 /100 WBC Segs + Bands,Absolute Auto 5.29 1.57 - 6.19 K/uL Immature Grans Absolute <0.04 <=0.07 K/uL Abs Lymph Auto 0.82 (L) 0.83 - 3.57 K/uL Abs [place] Auto 0.72 0.24 - 0.93 K/uL Abs Eos Auto 0.11 0.00 - 0.48 K/uL Abs Baso Auto <0.04 0.00 - 0.09 K/uL documented in this encounter [facility] 02-28-2024 Telephone encounter Note Noted. Will await f/u input. [facility] 02-28-2024 Miscellaneous Notes Noted. Will await f/u input. Patient returned call and given message below. Pt states it his current understanding that he has an appt with Dr. Bright on 03/10/24, as someone contacted him this past Wednesday and made an appointment for him. He is going to call their office today to clarify. Gisele Alonso RN Left message for patient to contact office. Eliza Beckett MA Let patient know Vincenzo Robledo's office contacted us and said that Dr Bright advised he stay with Dr. Mathew. Another option would be to see [facility] in [place]? Pt called and is notified of providers message. Pt states he had been seeing Dr Bright for reflux and stomach issues. He states their office wasn't as responsive and he was getting good communication. He states he never got a call back after his colonoscopy, and they never called him back to schedule a follow up. Pt states he switched to Dr Mathew because he had a conversation with Dr Bright about having hiatal hernia surgery and he referred him because he said he was good, and he was closer. He states he has the same issue he did with Dr Mathew as he did with Dr Bright, they are not good at getting back to him and getting appointments set up. Sakina Lim RN Please reach out to patient and let him know I need some help remembering why we referred him to Dr. Bright instead of going back to see Dr. Mathew ( I though it was do to difficulty getting in and having messages returned) Also I don't remember if Adarsh saw Dr. Bright in the past and if so did he change to Dr. Mathew just because he was closer? Sawti from Dr. Bright's office calls and states that office had received referral. Patient has been seeing Dr. Mathew and Dr. Bright advises that patient continue to be seen by Dr. Mathew for testing. Leah Storey RN documented in this encounter [facility] 02-28-2024 Telephone encounter Note Patient returned call and given message below. Pt states it his current understanding that he has an appt with Dr. Bright on 03/10/24, as someone contacted him this past Wednesday and made an appointment for him. He is going to call their office today to clarify. Gisele Alonso RN [facility] 02-28-2024 Telephone encounter Note Left message for patient to contact office. Eliza Beckett MA [facility] 02-26-2024 Telephone encounter Note Let patient know Vincenzo Robledo's office contacted us and said that Dr Bright advised he stay with Dr. Mathew. Another option would be to see [facility] in [place]? [facility] 02-26-2024 Telephone encounter Note Pt called and is notified of providers message. Pt states he had been seeing Dr Bright for reflux and stomach issues. He states their office wasn't as responsive and he was getting good communication. He states he never got a call back after his colonoscopy, and they never called him back to schedule a follow up. Pt states he switched to Dr Mathew because he had a conversation with Dr Bright about having hiatal hernia surgery and he referred him because he said he was good, and he was closer. He states he has the same issue he did with Dr Mathew as he did with Dr Bright, they are not good at getting back to him and getting appointments set up. Sakina Lim, CASH [facility] 02-25-2024 Telephone encounter Note Please reach out to patient and let him know I need some help remembering why we referred him to Dr. Bright instead of going back to see Dr. Mathew ( I though it was do to difficulty getting in and having messages returned) Also I don't remember if Adarsh saw Dr. Bright in the past and if so did he change to Dr. Mathew just because he was closer? [facility] 02-25-2024 Telephone encounter Note Swati from Dr. Bright's office calls and states that office had received referral. Patient has been seeing Dr. Mathew and Dr. Bright advises that patient continue to be seen by Dr. Mathew for testing. Leah Storey RN [facility] 02-23-2024 History of Present illness Narrative Chief Complaint Patient presents with: Cough HPI Adarsh Sorensen is a 83 year old male who presents here today for follow up on Started with sore throat which has cleared up; cough/congestion/fatigue/ wheezing. No fever; No N/V/D. Was seen in told it was viral on 02/20/2024. No swab completed. Patient indicated that Dr. Blackwood never contacted them. Patient indicated that he also had stress test completed. Patient also saw Dr. Tadeo and they were to schedule US but has not heard from there office. Patient with Hx of AAA, Carotid artery disease, CAD, GERD, funez's, elevated fasting blood sugar, Hyperlipidemia, Waldenstrom's macroglobulinemia, Anemia, thrombocytopenia, allergic Rhinitis, insomnia, chronic bronchitis, IBS, BPH as well as those reviewed and addressed below and in ROS. Patient saw Neurology last visit 11/2023 [facility] with c/o fever, cough and sore throat. [place] to be viral. Patient still very congested. Has clear rhinorrhea. Cough is productive but not sure of color. No sore throat. No shortness of breath but wheezing. Slightly better today. No fevers, nausea or vomiting. Past medical history, appointments, medications, allergies reviewed. 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 [...] 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 10/07/2015 DDD (degenerative disc disease), lumbar 10/07/2015 Degeneration of lumbar or lumbosacral intervertebral disc Diaphragmatic hernia without mention of obstruction or gangrene Elevated fasting blood sugar 11/18/2017 Enlargement of lymph nodes Erectile dysfunction 10/07/2015 Family history of dementia 10/07/2015 First degree AV block 01/12/2024 GERD without esophagitis 10/07/[address] 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 pt to go see Dr. 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 W/U with event monitor in past was normal per cardio. past medical history skin cancer forehead--unsure which kind Primary insomnia 10/07/2015 Psoriasis Rosacea 11/11/2016 Skin cancer screening 07/09/2023 Seeing [facility] Subclavian artery stenosis, right (HCC) 06/17/2017 US 06/16/2017 50-99% Thrombocytopenia (HCC) 10/07/2015 Waldenstrom's macroglobulinemia 10/07/2015 Previous Surgical History PAST SURGICAL HISTORY Procedure Laterality Date 2D ECHO (EXEP) 01/30/2014 EF=60%, LVH, no valve abnormalities COLONOSCOPY 09/21/2014 Dr. Bright, polyp, repeat 3 yrs COLONOSCOPY 02/17/2018 repeat 3 yrs, Dr. Bright COLONOSCOPY W/BIOPSY SINGLE/MULTIPLE 11/22/2007 ENDOSCOPY UPPER-EGD/M24 LAP, REVISION MIKA FUNDOPLASTY 03/20/[address] Layla VORA SURG [...] tablet by mouth once daily. omeprazole (PRILOSEC) 40 mg capsule Take 1 capsule by mouth once daily. lactulose 10 gram/15 mL solution Take 30 ml twice a day. aspirin 81 mg chewable tablet Take 81 mg by mouth once daily. (Patient not taking: Reported on 01/12/2024) rituximab/hyaluronidase,human (RITUXAN HYCELA SUBCUTANEOUS) Inject subcutaneously. Doxycycline Hyclate 100 mg EC tablet Take 100 mg by mouth two times a day. (Patient not taking: Reported on 10/21/2023) albuterol HFA (PROAIR HFA) 90 mcg/actuation inhaler Inhale 2 Puffs as instructed every 6 hours as needed. No current facility-administered medications on file prior to visit. Social History Social History Tobacco Use Smoking status: Former Current packs/day: 0.00 Average packs/day: 1 pack/day for 8.0 years (8.0 ttl pk-yrs) Types: Cigarettes Start date: 02/15/1966 Quit date: 02/15/1974 Years since quittin.0 Smokeless tobacco: Never Tobacco comments: NO EXPOSURE TO 2ND HAND SMOKE Vaping Use Vaping status: Never Used Substance Use Topics Alcohol use: Yes Comment: occasionally Drug use: No Review of Symptoms REVIEW OF SYSTEMS See HPI EXAM: BP 118/82 Pulse (!) 58 Resp 18 Wt 78 kg (172 lb) BMI 23.33 kg/m General Appearance: Well appearing, alert, in no acute distress, well-hydrated, well nourished.. Ears: External ears, TM's normal, canals clear. Nose/Sinuses: Nares normal, septum [...] non-tender. Bowel sounds normal. No masses, organomegaly. Health Maintenance List Covid-19 Vaccine( season) due on 10/17/2023 Advance Directive Discussion due on 02/16/2024 DTaP,Tdap,Td Vaccine(2 - Td or Tdap) due on 07/08/2024 RSV Vaccine(1 - 1-dose 75+ series) due on 07/08/2024 Depression Screening due on 07/08/2024 Anxiety Screening due on 07/08/2024 LDL Cholesterol due on 01/07/2025 Diabetes Screening due on 01/07/2027 Influenza Vaccine Completed Shingrix Vaccine Completed Pneumococcal Vaccine: 50+ Completed HPV Vaccine Aged Out Colorectal Cancer Screening Discontinued Data reviewed A/P ASSESSMENT/PLAN: 1. Bronchitis - ICD9: 490, ICD10: J40 - will tx with z-caridad and patient to f/u in 2 weeks for his routine. The following approved medication requests have been transmitted electronically. Requested Prescriptions Signed Prescriptions Disp Refills azithromycin (ZITHROMAX Z-CARIDAD) 250 mg tablet 6 tablet 0 Si tablets by mouth first day then 1 tablet the next 4 days F/u routine 2 weeks Jared Robertson MD documented in this encounter [facility] 02-23-2024 Note HNO ID: [id number] Author: JARED ROBERTSON MD Service: ? Author Type: Physician Type: Progress Notes Filed: 02/23/2024 19:06 Note Text: Chief Complaint Patient presents with: Cough HPI Adarsh Sorensen is a 83 year old male who presents here today for follow up on Started with sore throat which has cleared up; cough/congestion/fatigue/ wheezing. No fever; No N/V/D. Was seen in told it was viral on 02/20/2024. No swab completed. Patient indicated that Dr. Blackwood never contacted them. Patient indicated that he also had stress test completed. Patient also saw Dr. Tadeo and they were to schedule US but has not heard from there office. Patient with Hx of AAA, Carotid artery disease, CAD, GERD, funez's, elevated fasting blood sugar, Hyperlipidemia, Waldenstrom's macroglobulinemia, Anemia, thrombocytopenia, allergic Rhinitis, insomnia, chronic bronchitis, IBS, BPH as well as those reviewed and addressed below and in ROS. Patient saw Neurology last visit 11/2023 Patient was seen in the [facility] on 02/20/2024 with c/o fever, cough and sore throat. [place] to be viral. Patient still very congested. Has clear rhinorrhea. Cough is productive but not sure of color. No sore throat. No shortness of breath but wheezing. Slightly better today. No fevers, nausea or vomiting. Past medical history, appointments, medications, allergies reviewed. 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 [...] 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 10/07/2015 DDD (degenerative disc disease), lumbar 10/07/2015 Degeneration of lumbar or lumbosacral intervertebral disc Diaphragmatic hernia without mention of obstruction or gangrene Elevated fasting blood sugar 11/18/2017 Enlargement of lymph nodes Erectile dysfunction 10/07/2015 Family history of dementia 10/07/2015 First degree AV block 01/12/2024 GERD without esophagitis 10/07/[address] 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 pt to go see Dr. 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 W/U with event monitor in past was normal per cardio. past medical history skin cancer forehead--unsure which kind Primary insomnia 10/07/2015 Psoriasis Rosacea 11/11/2016 Skin cancer screening 07/09/2023 Seeing [facility] Subclavian artery stenosis, right (HCC) 06/17/2017 US 06/16/2017 50-99% Thrombocytopenia (HCC) 10/07/2015 Waldenstrom's macroglobulinemia 10/07/2015 Previous Surgical History PAST SURGICAL HISTORY Procedure Laterality Date 2D ECHO (EXEP) 01/30/2014 EF=60%, LVH, no valve abnormalities COLONOSCOPY 09/21/2014 Dr. Bright, polyp, repeat 3 yrs COLONOSCOPY 02/17/2018 repeat 3 yrs, Dr. Bright COLONOSCOPY W/BIOPSY SINGLE/MULTIPLE 11/22/2007 ENDOSCOPY UPPER-EGD/M24 LAP, REVISION MIKA FUNDOPLASTY 03/20/[address] Layla VORA SURG [...] and depressed feeling Current Medications Current Outpatient Medic (more content not included)... [facility] 02-23-2024 Note HNO ID: [id number] Author: JEY PABLO LPN Service: ? Author Type: LICENSED NURSE Type: Progress Notes Filed: 02/23/2024 06:55 Note Text: Scan on 02/22/2024 5:06 PM by ProviderTangela PA-C: Consultation - Vascular Medicine/Vascular Surgery [facility] 02-23-2024 History of Present illness Narrative Scan on 02/22/2024 5:06 PM by ProviderTangela PA-C: Consultation - Vascular Medicine/Vascular Surgery documented in this encounter [facility] 02-20-2024 Note HNO ID: [id number] Author: KORINA AGUILAR APRN.CORWIN Service: ? Author Type: Nurse Practitioner Type: Progress Notes Filed: 02/20/2024 10:49 Note Text: This note was created using HaveMyShiftter. Subjective Adarsh Sorensen is a 83 year old male. Reports 3 day history of fever, cough and sore throat. Reports Tmax 98.5. Denies n/v/d, sob. Reports post nasal drainage. Objective BP 120/62 Pulse 84 Temp 37.3 ?C (99.1 ?F) Resp 16 Wt 79.5 kg (175 lb 4.3 oz) SpO2 96% BMI 23.77 kg/m? Physical Exam PHYSICAL EXAMINATION: General appearance: Well appearing, alert, in no acute distress, well-hydrated, well nourished. Nose/Sinuses: Positive findings: mucosa erythematous and swollen, purulent rhinorrhea Oropharynx: Lips, mucosa, and tongue normal, teeth and gums normal, oropharynx normal. Lungs: Lungs clear to auscultation. No wheezing, rhonchi, rales. Cough Heart: RRR without murmur, gallop, or rubs. No ectopy Assessment and Plan ASSESSMENT/PLAN: 1. Viral URI with cough - ICD9: 465.9, ICD10: J06.9 - Discussed viral etiology and rationale for treatment. - Symptomatic treatment with prn analgesia - Supportive care with fluids and rest - The patient may also use OTC decongestants prn, OTC cough and cold meds as needed, and nasal saline gtts and suction prn. - Follow up in 3-5 days if symptoms persist or sooner if worsening of symptoms Korina Aguilar APRN.CORWIN [facility] 02-20-2024 History of Present illness Narrative This note was created using EarlyTracks. Subjective Adarsh Sorensen is a 83 year old male. Reports 3 day history of fever, cough and sore throat. Reports Tmax 98.5. Denies n/v/d, sob. Reports post nasal drainage. Objective BP 120/62 Pulse 84 Temp 37.3 C (99.1 F) Resp 16 Wt 79.5 kg (175 lb 4.3 oz) SpO2 96% BMI 23.77 kg/m Physical Exam PHYSICAL EXAMINATION: General appearance: Well appearing, alert, in no acute distress, well-hydrated, well nourished. Nose/Sinuses: Positive findings: mucosa erythematous and swollen, purulent rhinorrhea Oropharynx: Lips, mucosa, and tongue normal, teeth and gums normal, oropharynx normal. Lungs: Lungs clear to auscultation. No wheezing, rhonchi, rales. Cough Heart: RRR without murmur, gallop, or rubs. No ectopy Assessment and Plan ASSESSMENT/PLAN: 1. Viral URI with cough - ICD9: 465.9, ICD10: J06.9 - Discussed viral etiology and rationale for treatment. - Symptomatic treatment with prn analgesia - Supportive care with fluids and rest - The patient may also use OTC decongestants prn, OTC cough and cold meds as needed, and nasal saline gtts and suction prn. - Follow up in 3-5 days if symptoms persist or sooner if worsening of symptoms Korina Aguilar APRN.MATTRESS FINISHER documented in this encounter [facility] 02-10-2024 Nurse Note Radiology Service Progress Note DATE OF SERVICE: February 10, 2024 TIME: 3:13 PM PATIENT IDENTITY VERIFICATION COMPLETED USING TWO (2) STANDARD IDENTIFIERS: Name and Date of confirmed by patient verbally and Name and Date of confirmed by identification band. FALL SCREENING: Has the patient had 2 falls in the last year or 1 fall with injury or currently using an Ambulatory Assistive Device (Walker, Cane, Wheelchair, Crutches, etc.)? No PATIENT GENDER DATA: Male ALLERGIES: Reviewed and unchanged CONTRAST ALLERGY: No EXAM: CT -CONTRAST INDUCED NEPHROPATHY RISK FACTORS: Patient age > 60 years CREATININE: Creatinine Date Value Ref Range Status 01/08/2024 1.15 0.73 - 1.22 mg/dL Final 04/03/2023 1.21 0.73 - 1.22 mg/dL Final 10/27/2022 1.20 0.73 - 1.22 mg/dL Final Estimated Glomerular Filtration Rate Date Value Ref Range Status 01/08/2024 63 >=60 mL/min/1.73m Final Comment: Estimated Glomerular Filtration Rate (eGFR) is calculated using the 2020 CKD-EPI creatinine equation. This equation utilizes serum creatinine, sex, and age as parameters. The creatinine assay has traceable calibration to isotope dilution-mass spectrometry. Refer to KDIGO guidelines for clinical interpretation. In patients with unstable renal function, e.g. those with acute kidney injury, the eGFR may not accurately reflect actual GFR. eGFR- Date Value Ref Range Status 03/18/2021 >60 Final P.O.C.T. RESULTS: POC done: Yes, See Lab Tab February 10, 2024 TREATMENT: N/A IV SITE: Ambulatory: A peripheral IV was started in the Left antecubital site with a Angio cath: 20 gauge. IV SITE APPEARANCE: Clean,Dry and Intact SIGNATURE: Gladys Persaud RN PATIENT NAME: Adarsh Sorensen DATE: February 10, 2024 TIME: 3:13 PM [facility] 02-10-2024 Nurse Note Radiology Service Progress Note DATE OF SERVICE: February 10, 2024 TIME: 3:13 PM PATIENT IDENTITY VERIFICATION COMPLETED USING TWO (2) STANDARD IDENTIFIERS: Name and Date of confirmed by patient verbally and Name and Date of confirmed by identification band. FALL SCREENING: Has the patient had 2 falls in the last year or 1 fall with injury or currently using an Ambulatory Assistive Device (Walker, Cane, Wheelchair, Crutches, etc.)? No PATIENT GENDER DATA: Male ALLERGIES: Reviewed and unchanged CONTRAST ALLERGY: No EXAM: CT -CONTRAST INDUCED NEPHROPATHY RISK FACTORS: Patient age > 60 years CREATININE: Creatinine Date Value Ref Range Status 01/08/2024 1.15 0.73 - 1.22 mg/dL Final 04/03/2023 1.21 0.73 - 1.22 mg/dL Final 10/27/2022 1.20 0.73 - 1.22 mg/dL Final Estimated Glomerular Filtration Rate Date Value Ref Range Status 01/08/2024 63 >=60 mL/min/1.73m Final Comment: Estimated Glomerular Filtration Rate (eGFR) is calculated using the 2020 CKD-EPI creatinine equation. This equation utilizes serum creatinine, sex, and age as parameters. The creatinine assay has traceable calibration to isotope dilution-mass spectrometry. Refer to KDIGO guidelines for clinical interpretation. In patients with unstable renal function, e.g. those with acute kidney injury, the eGFR may not accurately reflect actual GFR. eGFR- Date Value Ref Range Status 03/18/2021 >60 Final P.O.C.T. RESULTS: POC done: Yes, See Lab Tab February 10, 2024 TREATMENT: N/A IV SITE: Ambulatory: A peripheral IV was started in the Left antecubital site with a Angio cath: 20 gauge. IV SITE APPEARANCE: Clean,Dry and Intact SIGNATURE: Gladys Persaud RN PATIENT NAME: Adarsh Sorensen DATE: February 10, 2024 TIME: 3:13 PM documented in this encounter [facility] 02-10-2024 History of Present illness Narrative RADIOLOGY SERVICE PROGRESS NOTE SERVICE DATE: 02/10/2024 SERVICE TIME: 2:05 PM PATIENT IDENTITY VERIFICATION COMPLETED USING TWO (2) STANDARD IDENTIFIERS: Name and Date of confirmed by patient verbally and Name and Date of confirmed by identification band FALL SCREENING: Has the patient had 2 falls in the last year or 1 fall with injury or currently using an Ambulatory Assistive Device (Walker, Cane, Wheelchair, Crutches, etc.)? No PATIENT GENDER DATA: .male ALLERGIES: Reviewed and unchanged MEDICATIONS REVIEWED: Not applicable PATIENT RELEVANT IMPLANT DATA REVIEWED: Not Applicable PATIENT PRESENTS WITH AN IMPLANTABLE OR ATTACHED PRESS FEEDER BROOMCORN: No CREATININE: Creatinine Date Value Ref Range Status 01/08/2024 1.15 0.73 - 1.22 mg/dL Final 04/03/2023 1.21 0.73 - 1.22 mg/dL Final 10/27/2022 1.20 0.73 - 1.22 mg/dL Final Estimated Glomerular Filtration Rate Date Value Ref Range Status 01/08/2024 63 >=60 mL/min/1.73m Final Comment: Estimated Glomerular Filtration Rate (eGFR) is calculated using the 2020 CKD-EPI creatinine equation. This equation utilizes serum creatinine, sex, and age as parameters. The creatinine assay has traceable calibration to isotope dilution-mass spectrometry. Refer to KDIGO guidelines for clinical interpretation. In patients with unstable renal function, e.g. those with acute kidney injury, the eGFR may not accurately reflect actual GFR. eGFR- Date Value Ref Range Status 03/18/2021 >60 Final P.O.C.T. RESULTS: N/A February 10, [address] PERFORMED: No IV SITE: Ambulatory: A peripheral IV was started in the Right forearm with a Angio cath: 22 gauge. POST EXAM PIV STATUS: Left in for next appointment PROCEDURE TYPE: NM Stress: 13.6 mCi [id number] was administered IV for Rest Imaging at 12:30 by MM. 35.4 mCi [id number] was administered IV for Stress Imaging at 13:56 by MG. PATIENT DISCHARGED TO: Ambulatory patient, left [place] department area. Is this a therapy: No A Diagnostic radioactive procedure has taken place, with no further precautions necessary other than routine body substance precautions. More information regarding radiation safety can be found using this link: [email or web address] [email or web address] SIGNATURE: Benny Steward PATIENT NAME: Adarsh Sorensen DATE: February 10, 2024 TIME: 2:05 PM PAGER/CONTACT #: documented in this encounter [facility] 02-10-2024 Note HNO ID: [id number] Author: KARI FAN Tech Service: ? Author Type: Technologist Type: Progress Notes Filed: 02/10/2024 14:06 Note Text: RADIOLOGY SERVICE PROGRESS NOTE SERVICE DATE: 02/10/2024 SERVICE TIME: 2:05 PM PATIENT IDENTITY VERIFICATION COMPLETED USING TWO (2) STANDARD IDENTIFIERS: Name and Date of confirmed by patient verbally and Name and Date of confirmed by identification band FALL SCREENING: Has the patient had 2 falls in the last year or 1 fall with injury or currently using an Ambulatory Assistive Device (Walker, Cane, Wheelchair, Crutches, etc.)? No PATIENT GENDER DATA: .male ALLERGIES: Reviewed and unchanged MEDICATIONS REVIEWED: Not applicable PATIENT RELEVANT IMPLANT DATA REVIEWED: Not Applicable PATIENT PRESENTS WITH AN IMPLANTABLE OR ATTACHED PRESS FEEDER BROOMCORN: No CREATININE: Creatinine Date Value Ref Range Status 01/08/2024 1.15 0.73 - 1.22 mg/dL Final 04/03/2023 1.21 0.73 - 1.22 mg/dL Final 10/27/2022 1.20 0.73 - 1.22 mg/dL Final Estimated Glomerular Filtration Rate Date Value Ref Range Status 01/08/2024 63 >=60 mL/min/1.73m? Final Comment: Estimated Glomerular Filtration Rate (eGFR) is calculated using the 2020 CKD-EPI creatinine equation. This equation utilizes serum creatinine, sex, and age as parameters. The creatinine assay has traceable calibration to isotope dilution-mass spectrometry. Refer to KDIGO guidelines for clinical interpretation. In patients with unstable renal function, e.g. those with acute kidney injury, the eGFR may not accurately reflect actual GFR. eGFR- Date Value Ref Range Status 03/18/2021 >60 Final P.O.C.T. RESULTS: N/A February 10, [address] PERFORMED: No IV SITE: Ambulatory: A peripheral IV was started in the Right forearm with a Angio cath: 22 gauge. POST EXAM PIV STATUS: Left in for next appointment PROCEDURE TYPE: NM Stress: 13.6 mCi [id number] was administered IV for Rest Imaging at 12:30 by MM. 35.4 mCi [id number]-Eptykik was administered IV for Stress Imaging at 13:56 by MG. PATIENT DISCHARGED TO: Ambulatory patient, left [place] department area. Is this a therapy: No A Diagnostic radioactive procedure has taken place, with no further precautions necessary other than routine body substance precautions. More information regarding radiation safety can be found using this link: [email or web address] [email or web address] 20Diagnostic%20Nuclear%20Medicine%20 [email or web address] SIGNATURE: Benny Steward PATIENT NAME: Adarsh Sorensen DATE: February 10, 2024 TIME: 2:05 PM PAGER/CONTACT #: [facility] 02-08-2024 Telephone encounter Note Left message regarding reminder and instructions for stress test . This included where to check in, length of test and no caffeine for 12 hours prior to test, [facility] 02-08-2024 Miscellaneous Notes Left message regarding reminder and instructions for stress test . This included where to check in, length of test and no caffeine for 12 hours prior to test, documented in this encounter [facility] 01-21-2024 Miscellaneous Notes Scheduled 02/10/2024. Enrique Jorge RN 1st attempt LVM to schedule stress test Left detailed message for patient. Please assist to schedule Stress test. Eliza Fabien, MA Let patient know new stress test order placed. Patient calls to report that he was not able to get his stress test done today as he drank a cup of coffee this morning. Patient needs a new order to reschedule. Pended with previous information and diagnosis. Enrique Jorge RN documented in this encounter [facility] 01-21-2024 Telephone encounter Note Scheduled 02/10/2024. Enrique Jorge RN [facility] 01-20-2024 Telephone encounter Note 1st attempt LVM to schedule stress test [facility] 01-19-2024 Telephone encounter Note Left detailed message for patient. Please assist to schedule Stress test. Eliza Beckett MA [facility] 01-19-2024 Telephone encounter Note Let patient know new stress test order placed. [facility] [facility] Telephone encounter Note Patient calls to report that he was not able to get his stress test done today as he drank a cup of coffee this morning. Patient needs a new order to reschedule. Pended with previous information and diagnosis. Enrique Jorge RN [facility] 01-18-2024 Telephone encounter Note Spoke to pt regarding reminder and instructions for stress test tomorrow. This included where to check in, length of test and no caffeine for 12 hours prior to test. [facility] 01-18-2024 Miscellaneous Notes Spoke to pt regarding reminder and instructions for stress test tomorrow. This included where to check in, length of test and no caffeine for 12 hours prior to test. documented in this encounter [facility] 01-12-2024 Note HNO ID: [id number] Author: JARED ROBERTSON MD Service: ? Author Type: Physician Type: Progress Notes Filed: 01/13/2024 13:07 Note Text: Chief Complaint Patient presents with: F/U 6 months HPI Adarsh Sorensen is a 83 year old male who presents here today for stomach issues/irregular bowels/ - constant - worse after eating. Patient with Hx of hyperlipidemia, elevated blood sugar, GERD, IBS and CAD. Had a mika in the past. Every time he eats his stomach is upset. Not getting any pain. Still has the issue with constipation and the lactulose at 15-30 ml has not helped. He does not have gal bladder. chest discomfort - at night time only - aching left chest without radiation. No shortness of breath, or diaphoresis. Does have nausea but may not be related to the chest pain over the past 6 months. We ordered a stress test and was never completed back in 03/2023 due to chest pin symptoms patient is currently asymptomatic. Pulsating groin pain right side - 6 months - comes and goes. Nothing he does makes it worse. Has not noted any bulge and has not had any hernias. Does have a AAA and concerned he may have one in the groin on the right since the pain is throbbing when he has it. Past medical history, appointments, medications, allergies reviewed. 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 [...] 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 10/07/2015 DDD (degenerative disc disease), lumbar 10/07/2015 Degeneration of lumbar or lumbosacral intervertebral disc Diaphragmatic hernia without mention of obstruction or gangrene Elevated fasting blood sugar 11/18/2017 Enlargement of lymph nodes Erectile dysfunction 10/07/2015 Family history of dementia 10/07/2015 GERD without esophagitis 10/07/[address] 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 pt to go see Dr. 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 W/U with event monitor in past was normal per cardio. past medical history skin cancer forehead--unsure which kind Primary insomnia 10/07/2015 Psoriasis Rosacea 11/11/2016 Skin cancer screening 07/09/2023 Seeing [facility] Subclavian artery stenosis, right (HCC) 06/17/2017 US 06/16/2017 50-99% Thrombocytopenia (HCC) 10/07/2015 Waldenstrom's macroglobulinemia 10/07/2015 Previous Surgical History PAST SURGICAL HISTORY Procedure Laterality Date 2D ECHO (EXEP) 01/30/2014 EF=60%, LVH, no valve abnormalities COLONOSCOPY 09/21/2014 Dr. Bright, polyp, repeat 3 yrs COLONOSCOPY 02/17/2018 repeat 3 yrs, Dr. Bright COLONOSCOPY W/BIOPSY SINGLE/MULTIPLE 11/22/2007 ENDOSCOPY UPPER-EGD/M24 LAP, REVISION MIKA FUNDOPLASTY 03/20/[address] Layla VORA SURG [...] on File Prior to Visit Medication Sig aspirin 81 mg chewable tablet Take 81 mg by mouth once daily. lactulose 10 gram (more content not included)... [facility] 01-12-2024 History of Present illness Narrative Chief Complaint Patient presents with: F/U 6 months HPI Adarsh Sorensen is a 83 year old male who presents here today for stomach issues/irregular bowels/ - constant - worse after eating. Patient with Hx of hyperlipidemia, elevated blood sugar, GERD, IBS and CAD. Had a mika in the past. Every time he eats his stomach is upset. Not getting any pain. Still has the issue with constipation and the lactulose at 15-30 ml has not helped. He does not have gal bladder. chest discomfort - at night time only - aching left chest without radiation. No shortness of breath, or diaphoresis. Does have nausea but may not be related to the chest pain over the past 6 months. We ordered a stress test and was never completed back in 03/2023 due to chest pin symptoms patient is currently asymptomatic. Pulsating groin pain right side - 6 months - comes and goes. Nothing he does makes it worse. Has not noted any bulge and has not had any hernias. Does have a AAA and concerned he may have one in the groin on the right since the pain is throbbing when he has it. Past medical history, appointments, medications, allergies reviewed. 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 [...] 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 10/07/2015 DDD (degenerative disc disease), lumbar 10/07/2015 Degeneration of lumbar or lumbosacral intervertebral disc Diaphragmatic hernia without mention of obstruction or gangrene Elevated fasting blood sugar 11/18/2017 Enlargement of lymph nodes Erectile dysfunction 10/07/2015 Family history of dementia 10/07/2015 GERD without esophagitis 10/07/[address] 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 pt to go see Dr. 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 W/U with event monitor in past was normal per cardio. past medical history skin cancer forehead--unsure which kind Primary insomnia 10/07/2015 Psoriasis Rosacea 11/11/2016 Skin cancer screening 07/09/2023 Seeing [facility] Subclavian artery stenosis, right (HCC) 06/17/2017 US 06/16/2017 50-99% Thrombocytopenia (HCC) 10/07/2015 Waldenstrom's macroglobulinemia 10/07/2015 Previous Surgical History PAST SURGICAL HISTORY Procedure Laterality Date 2D ECHO (EXEP) 01/30/2014 EF=60%, LVH, no valve abnormalities COLONOSCOPY 09/21/2014 Dr. Bright, polyp, repeat 3 yrs COLONOSCOPY 02/17/2018 repeat 3 yrs, Dr. Bright COLONOSCOPY W/BIOPSY SINGLE/MULTIPLE 11/22/2007 ENDOSCOPY UPPER-EGD/M24 LAP, REVISION MIKA FUNDOPLASTY 03/20/[address] Layla VORA SURG [...] on File Prior to Visit Medication Sig aspirin 81 mg chewable tablet Take 81 mg by mouth once daily. lactulose 10 gram/15 mL solution Take 1-2 table spoons a day for constipation amoxicillin/potassium clav (AUGMENTIN ORAL) Take by mouth. (Patient not taking: Reported on 10/21/2023) rituximab/hyaluronidase,human (RITUXAN HYCELA SUBCUTANEOUS) Inject subcutaneously. Doxycycline Hyclate 100 mg EC tablet Take 100 mg by mouth two times a day. (Patient not taking: Reported on 10/21/2023) rosuvastatin (CRESTOR) 20 mg tablet Take 1 tablet by mouth once daily. omeprazole (PRILOSEC) 10 mg capsule Take 1 capsule by mouth once daily. (Patient taking differently: Take 10 mg by mouth as needed.) albuterol HFA (PROAIR HFA) 90 mcg/actuation inhaler Inhale 2 Puffs as instructed every 6 hours as needed. No current facility-administered medications on file prior to visit. Social History Social History Tobacco Use Smoking status: Former Current packs/day: 0.00 Average packs/day: 1 pack/day for 8.0 years (8.0 ttl pk-yrs) Types: Cigarettes Start date: 02/15/1966 Quit date: 02/15/1974 Years since quittin.9 Smokeless tobacco: Never Tobacco comments: NO EXPOSURE TO 2ND HAND SMOKE Vaping Use Vaping status: Never Used Substance Use Topics Alcohol use: Yes Comment: occasionally Drug use: No Review of Symptoms REVIEW OF SYSTEMS See HPI EXAM: BP 122/68 Pulse 64 Resp 16 Wt 78.9 kg (174 lb) BMI 23.60 kg/m General Appearance: Well appearing, alert, in no acute distress, well-hydrated, well nourished.. Lungs: Lungs clear to auscultation. No wheezing, rhonchi, rales.. Heart: RRR without murmur, gallop, or rubs. No ectopy. Abdomen: Abdomen soft, non-distended with mild epigastric tenderness. Bowel sounds normal. No masses, organomegaly. Testicular: no masses on the right or hernia. Groin: the pain tends to be in the right groin but no masses palpated and could not reproduce the pain. RLE: pulse is 1+ at the posterior tibial. No pallor, warm to touch and not pain to palpation. Health Maintenance List Covid-19 Vaccine( season) due on 10/17/2023 DTaP,Tdap,Td Vaccine(2 - Td or Tdap) due on 07/08/2024 RSV Vaccine(1 - 1-dose 75+ series) due on 07/08/2024 Depression Screening due on 07/08/2024 Anxiety Screening due on 07/08/2024 LDL Cholesterol due on 01/07/2025 Diabetes Screening due on 01/07/2027 Influenza Vaccine Completed Advance Directive Discussion Completed Shingrix Vaccine Completed Pneumococcal Vaccine: 65+ Completed HPV Vaccine Aged Out Colorectal Cancer Screening Discontinued Data reviewed In office EKG: showed no acute changes when compared to EKG from 04/14/2023. Latest Ref Rng 01/08/2024 Glucose 74 - 99 mg/dL 105 (H) BUN 9 - 24 mg/dL 21 Creatinine 0.73 - 1.22 mg/dL 1.15 Sodium 136 - 144 mmol/L 142 Potassium 3.7 - 5.1 mmol/L 4.4 Chloride 98 - 107 mmol/L 105 CO2 22 - 30 mmol/L 27 Anion Gap 8 - 15 mmol/L 10 Calcium 8.5 - 10.2 mg/dL 9.2 eGFR >=60 mL/min/1.73m 63 Total Cholesterol, Nonfasting <200 mg/dL 164 Triglycerides, Nonfasting <150 mg/dL 74 HDL Cholesterol, Nonfasting >39 mg/dL 60 LDL Cholesterol, Nonfasting <100 mg/dL 89 Non HDL Cholesterol, Nonfasting <130 mg/dL 104 VLDL Cholesterol, Nonfasting <30 mg/dL 15 Total Chol/HDL Ratio, Nonfasting <5.10 mg/dL 2.73 LDL/HDL Ratio, Nonfasting <2.54 mg/dL 1.48 Hemoglobin A1C 4.3 - 5.6 % 4.8 Estimated Average Glucose mg/dL 91 A/P ASSESSMENT/PLAN: 1. Atypical chest pain - ICD9: 786.59, ICD10: R07.89 (primary diagnosis) check - ECG COMPLETE - NM CARDIAC PERF STRESS/EXERCISE - INSERT IV ([place], [place]) - IV DISCONTINUE 2. 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 - ICD9: 414.3, ICD10: I25.83 Check - NM CARDIAC PERF STRESS/EXERCISE - INSERT IV ([place], [place]) - IV DISCONTINUE 3. Mixed hyperlipidemia - ICD9: 272.2, ICD10: E78.2 - Controlled - Continue current medications - Counseled on healthy diet and regular exercise - ROSUVASTATIN 20 MG TABLET 4. GERD without esophagitis - ICD9: 530.81, ICD10: K21.9 - change to OMEPRAZOLE 40 MG CAPSULE,DELAYED RELEASE Check - H PYLORI IGG AB - CONSULT TO GASTROENTEROLOGY 5. Right inguinal pain - ICD9: 789.03, ICD10: R10.31 Check - CTA ABD/PEL LOWER EXTREM WO/W IVCON - IV CONTRAST (RADIOLOGY PROCEDURE) 6. Abdominal aortic aneurysm (AAA) without rupture, unspecified part (HCC) - ICD9: 441.4, ICD10: I71.40 Check - CTA ABD/PEL LOWER EXTREM WO/W IVCON - IV CONTRAST (RADIOLOGY PROCEDURE) - CONSULT TO VASCULAR SURGERY 7. First degree AV block - ICD9: 426.11, ICD10: I44.0 - stable on EKG - due to this will need a nuclear stress in place of a treadmill stress. 8. Bilateral carotid artery stenosis - ICD9: 433.10, 433.30, ICD10: I65.23 - CONSULT TO VASCULAR SURGERY: Dr. Tadeo 9. Subclavian artery stenosis, right (HCC) - ICD9: 447.1, ICD10: I77.1 - CONSULT TO VASCULAR SURGERY 10. Epigastric pain - ICD9: 789.06, ICD10: R10.13 - Begin treatment with Prilosec 40 mg every day Check - HEPATIC FUNCTION PNL - AMYLASE - LIPASE - CONSULT TO GASTROENTEROLOGY 11. Irritable bowel syndrome with constipation - ICD9: 564.1, ICD10: K58.1 - will have him do the lactulose 30 ml twice a day and adjust if diarrhea starts. - CONSULT TO GASTROENTEROLOGY F/u near future for routine. I spent a total of 60 minutes on the date of the service which included preparing to see the patient, [id number] patient care, completing clinical documentation, performing a medically appropriate examination, counseling and educating the patient/family/caregiver and ordering medications, tests, or procedures. Jared Robertson MD documented in this encounter [facility] 12-27-2023 Note HNO ID: [id number] Author: SOFIA BOYCE, ? Service: ? Author Type: Physician Type: Progress Notes Filed: 12/27/2023 23:09 Note Text: FOLLOW UP PODIATRIC OFFICE VISIT Chief Complaint: This 83 year old who presents for follow up:left hallux toenail matrixectomy Patient presents to clinic for follow-up left hallux toenail matrixectomy Patient is doing very well Denies any redness, drainage or pain. Very happy with outcome from procedure. PAIN EVALUATION No data found in the last 1 encounters. Hemoglobin A1C Date Value Ref Range Status 04/03/2023 4.9 4.3 - 5.6 % Final Comment: [place] [employer] guidelines indicate that patients with HgbA1c in the range 5.7-6.4% are at increased risk for development of diabetes, and intervention by lifestyle modification may be beneficial. HgbA1c greater or equal to 6.5% is considered diagnostic of diabetes. 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 [...] 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 10/07/2015 DDD (degenerative disc disease), lumbar 10/07/2015 Degeneration of lumbar or lumbosacral intervertebral disc Diaphragmatic hernia without mention of obstruction or gangrene Elevated fasting blood sugar 11/18/2017 Enlargement of lymph nodes Erectile dysfunction 10/07/2015 Family history of dementia 10/07/2015 GERD without esophagitis 10/07/[address] 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 pt to go see Dr. 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 W/U with event monitor in past was normal per cardio. past medical history skin cancer forehead--unsure which kind Primary insomnia 10/07/2015 Psoriasis Rosacea 11/11/2016 Skin cancer screening 07/09/2023 Seeing [facility] Subclavian artery stenosis, right (HCC) 06/17/2017 US 06/16/2017 50-99% Thrombocytopenia (HCC) 10/07/2015 Waldenstrom's macroglobulinemia 10/07/2015 Current Outpatient Medications Medication Sig aspirin 81 mg chewable tablet Take 81 mg by mouth once daily. lactulose 10 gram/15 mL solution Take 1-2 table spoons a day for constipation amoxicillin/potassium clav (AUGMENTIN ORAL) Take by mouth. (Patient not taking: Reported on 10/21/2023) rituximab/hyaluronidase,human (RITUXAN HYCELA SUBCUTANEOUS) Inject subcutaneously. Doxycycline Hyclate 100 mg EC tablet Take 100 mg by mouth two times a day. (Patient not taking: Reported on 10/21/2023) rosuvastatin (CRESTOR) 20 mg tablet Take 1 tablet by mouth once daily. omeprazole (PRILOSEC) 10 mg capsule Take 1 capsule by mouth once daily. (Patient taking differently: Take 10 mg by mouth as needed.) albuterol HFA (PROAIR HFA) 90 mcg/actuation inhaler Inhale 2 Puffs as instructed every 6 hours as needed. No current facility-administered medications for this visit. ALLERGIES Allergen Reactions Elavil [Amitriptyli* Other: See Comments Tired and depressed feeling PAST SURGICAL HISTORY Procedure Laterality Date 2D ECHO (EXEP) 01/30/2014 EF=60%, LVH, no valve abnormalities COLONOSCOPY 09/21/2014 Dr. Bright, polyp, repeat 3 yrs COLONOSCOPY 02/17/2018 repeat 3 yrs, Dr. Bright COLONOSCOPY W/BIOPSY SINGLE/MULTIPLE 11/22/2007 ENDOSCOPY UPPER-EGD/M24 LAP, REVISION MIKA FUNDOPLASTY 03/20/[address] Layla [facility]ERSONS SURG CHOLECYSTECTOMY W/CHOLANGIOGRAPHY 04/12/2009 PAST SURGICAL HISTORY OF 11/2014 AAA repair PAST SURGICAL HISTORY OF 2015 both eyes cataract removal. PAST SURGICAL HISTORY OF 10/13/2017 right shoulder surgery per [place] UMBILICAL [facility] 5 YRS/> REDUCIBLE 04/12/2009 STRESS TEST 02/27/2014 (more content not included)... [facility] 12-27-2023 History of Present illness Narrative FOLLOW UP PODIATRIC OFFICE VISIT Chief Complaint: This 83 year old who presents for follow up:left hallux toenail matrixectomy Patient presents to clinic for follow-up left hallux toenail matrixectomy Patient is doing very well Denies any redness, drainage or pain. Very happy with outcome from procedure. PAIN EVALUATION No data found in the last 1 encounters. Hemoglobin A1C Date Value Ref Range Status 04/03/2023 4.9 4.3 - 5.6 % Final Comment: [place] [employer] guidelines indicate that patients with HgbA1c in the range 5.7-6.4% are at increased risk for development of diabetes, and intervention by lifestyle modification may be beneficial. HgbA1c greater or equal to 6.5% is considered diagnostic of diabetes. 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 [...] 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 10/07/2015 DDD (degenerative disc disease), lumbar 10/07/2015 Degeneration of lumbar or lumbosacral intervertebral disc Diaphragmatic hernia without mention of obstruction or gangrene Elevated fasting blood sugar 11/18/2017 Enlargement of lymph nodes Erectile dysfunction 10/07/2015 Family history of dementia 10/07/2015 GERD without esophagitis 10/07/[address] 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 pt to go see Dr. 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 W/U with event monitor in past was normal per cardio. past medical history skin cancer forehead--unsure which kind Primary insomnia 10/07/2015 Psoriasis Rosacea 11/11/2016 Skin cancer screening 07/09/2023 Seeing [facility] Subclavian artery stenosis, right (HCC) 06/17/2017 [place] 06/16/2017 50-99% Thrombocytopenia (HCC) 10/07/2015 Waldenstrom's macroglobulinemia 10/07/2015 Current Outpatient Medications Medication Sig aspirin 81 mg chewable tablet Take 81 mg by mouth once daily. lactulose 10 gram/15 mL solution Take 1-2 table spoons a day for constipation amoxicillin/potassium clav (AUGMENTIN ORAL) Take by mouth. (Patient not taking: Reported on 10/21/2023) rituximab/hyaluronidase,human (RITUXAN HYCELA SUBCUTANEOUS) Inject subcutaneously. Doxycycline Hyclate 100 mg EC tablet Take 100 mg by mouth two times a day. (Patient not taking: Reported on 10/21/2023) rosuvastatin (CRESTOR) 20 mg tablet Take 1 tablet by mouth once daily. omeprazole (PRILOSEC) 10 mg capsule Take 1 capsule by mouth once daily. (Patient taking differently: Take 10 mg by mouth as needed.) albuterol HFA (PROAIR HFA) 90 mcg/actuation inhaler Inhale 2 Puffs as instructed every 6 hours as needed. No current facility-administered medications for this visit. ALLERGIES Allergen Reactions Elavil [Amitriptyli* Other: See Comments Tired and depressed feeling PAST SURGICAL HISTORY Procedure Laterality Date 2D ECHO (EXEP) 01/30/2014 EF=60%, LVH, no valve abnormalities COLONOSCOPY 09/21/2014 Dr. Bright, polyp, repeat 3 yrs COLONOSCOPY 02/17/2018 repeat 3 yrs, Dr. Bright COLONOSCOPY W/BIOPSY SINGLE/MULTIPLE 11/22/2007 ENDOSCOPY UPPER-EGD/M24 LAP, REVISION MIKA FUNDOPLASTY 03/20/[address] Layla VORA SURG CHOLECYSTECTOMY W/CHOLANGIOGRAPHY 04/12/2009 PAST SURGICAL HISTORY OF 11/2014 AAA repair PAST SURGICAL HISTORY OF 2015 both eyes cataract removal. PAST SURGICAL HISTORY OF 10/13/2017 right shoulder surgery per [place] UMBILICAL HRNA 5 YRS/> REDUCIBLE 04/12/2009 STRESS TEST 02/27/2014 WNL Physical Exam: OBJECTIVE: Constitutional: Pt is a well developed 83 year old male who is alert, oriented, cooperative and in no apparent distress. Eyes: Following during examination. No redness or drainage. Respiratory: RR normal and nonlabored. Even breathing. No evidence of distress. Psychology: Patient is engaged during conversation. Normal affect and mood. Does not appear depressed or anxious. NVSI unchanged from previous visit. Dermatological: Left hallux nail bed is now healed No signs of infection. Musculoskeletal/Orthopaedic: Patient has no pain to palpation of left hallux ASSESSMENT: (S91.109A) Open wound of toe, initial encounter (primary encounter diagnosis) PLAN: Patient is s/p left hallux toenail matrixectomy. No signs of infection No longer requires wound care Patient is very happy with outcome Follow-up rakel Boyce DPM AMB ROOMING INTAKE FLOWSHEET DATA Patient presents with: Left Great Toe - Established Patient, Follow Up, Ingrown Toenail Marsha Kennedy LPN documented in this encounter [facility] 12-27-2023 Instructions DerikAbdiaziz de la torreew - 12/27/2023 4:14 PM EST Your wound is essentially healed Can monitor No longer require soaking If you have any issues, please give me a call documented in this encounter [facility] 12-27-2023 Note HNO ID: [id number] Author: MARSHA KENNEDY LPN Service: ? Author Type: LICENSED NURSE Type: Progress Notes Filed: 12/27/2023 23:09 Note Text: AMB ROOMING INTAKE FLOWSHEET DATA Patient presents with: Left Great Toe - Established Patient, Follow Up, Ingrown Toenail Marsha Kennedy LPN [facility] 12-09-2023 Note HNO ID: [id number] Author: MARSHA KENNEDY LPN Service: ? Author Type: LICENSED NURSE Type: Progress Notes Filed: 12/10/2023 11:33 Note Text: UNIVERSAL PROTOCOL / SAFETY CHECKLIST Procedure to be Performed: Total nail chemical matrixectomy, left hallux Sign In: A Moment of CARE was completed. Personnel directly involved with the procedure wore the appropriate PPE (Personal Protective Equipment). No special equipment needed. Patient/Surrogate Stated/Verified: PATIENT VERIFIED(optional for EMERGENT procedures): Patient name, Date of , Relevant allergies, and The intended procedure Time Out Communication: Intended patient and procedure match the source documents. Consent documented and matches the intended procedure. Relevant labs, photos, and/or imaging studies have been reviewed. Correct side/site marked and visible. Medications required for procedure verified. No fire risk assessment and interventions applicable. No implant(s) inserted. Sign Out: SIGN OUT (optional for EMERGENT procedures): No specimen collected. All instruments, equipment, possible retained foreign bodies accounted for. Post-procedure follow-up management communicated and Plan of Care Visit completed when applicable. Marsha Kennedy LPN [facility] 12-09-2023 History of Present illness Narrative UNIVERSAL PROTOCOL / SAFETY CHECKLIST Procedure to be Performed: Total nail chemical matrixectomy, left hallux Sign In: A Moment of CARE was completed. Personnel directly involved with the procedure wore the appropriate PPE (Personal Protective Equipment). No special equipment needed. Patient/Surrogate Stated/Verified: PATIENT VERIFIED(optional for EMERGENT procedures): Patient name, Date of , Relevant allergies, and The intended procedure Time Out Communication: Intended patient and procedure match the source documents. Consent documented and matches the intended procedure. Relevant labs, photos, and/or imaging studies have been reviewed. Correct side/site marked and visible. Medications required for procedure verified. No fire risk assessment and interventions applicable. No implant(s) inserted. Sign Out: SIGN OUT (optional for EMERGENT procedures): No specimen collected. All instruments, equipment, possible retained foreign bodies accounted for. Post-procedure follow-up management communicated and Plan of Care Visit completed when applicable. Marsha Kennedy LPN FOLLOW UP PODIATRIC OFFICE VISIT Chief Complaint: This 83 year old who presents for follow up:left hallux nail thickening Patient presents to clinic for follow-up left hallux nail thickening Complains of thick nail that at one time, led to severe infection He would like to proceed with permanent nail removal today. He has no other complaints. PAIN EVALUATION 12/09/2023 1308 Pain Level: 7 Pain Location: Toe Description: Sharp Frequency: Intermittent Hemoglobin A1C Date Value Ref Range Status 04/03/2023 4.9 4.3 - 5.6 % Final Comment: [place] [employer] guidelines indicate that patients with HgbA1c in the range 5.7-6.4% are at increased risk for development of diabetes, and intervention by lifestyle modification may be beneficial. HgbA1c greater or equal to 6.5% is considered diagnostic of diabetes. 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 [...] 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 10/07/2015 DDD (degenerative disc disease), lumbar 10/07/2015 Degeneration of lumbar or lumbosacral intervertebral disc Diaphragmatic hernia without mention of obstruction or gangrene Elevated fasting blood sugar 11/18/2017 Enlargement of lymph nodes Erectile dysfunction 10/07/2015 Family history of dementia 10/07/2015 GERD without esophagitis 10/07/[address] 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 pt to go see Dr. 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 W/U with event monitor in past was normal per cardio. past medical history skin cancer forehead--unsure which kind Primary insomnia 10/07/2015 Psoriasis Rosacea 11/11/2016 Skin cancer screening 07/09/2023 Seeing [facility] Subclavian artery stenosis, right (HCC) 06/17/2017 US 06/16/2017 50-99% Thrombocytopenia (HCC) 10/07/2015 Waldenstrom's macroglobulinemia 10/07/2015 Current Outpatient Medications Medication Sig aspirin 81 mg chewable tablet Take 81 mg by mouth once daily. lactulose 10 gram/15 mL solution Take 1-2 table spoons a day for constipation rituximab/hyaluronidase,human (RITUXAN HYCELA SUBCUTANEOUS) Inject subcutaneously. rosuvastatin (CRESTOR) 20 mg tablet Take 1 tablet by mouth once daily. omeprazole (PRILOSEC) 10 mg capsule Take 1 capsule by mouth once daily. (Patient taking differently: Take 10 mg by mouth as needed.) albuterol HFA (PROAIR HFA) 90 mcg/actuation inhaler Inhale 2 Puffs as instructed every 6 hours as needed. amoxicillin/potassium clav (AUGMENTIN ORAL) Take by mouth. (Patient not taking: Reported on 10/21/2023) Doxycycline Hyclate 100 mg EC tablet Take 100 mg by mouth two times a day. (Patient not taking: Reported on 10/21/2023) No current facility-administered medications for this visit. ALLERGIES Allergen Reactions Elavil [Amitriptyli* Other: See Comments Tired and depressed feeling PAST SURGICAL HISTORY Procedure Laterality Date 2D ECHO (EXEP) 01/30/2014 EF=60%, LVH, no valve abnormalities COLONOSCOPY 09/21/2014 Dr. Bright, polyp, repeat 3 yrs COLONOSCOPY 02/17/2018 repeat 3 yrs, Dr. Bright COLONOSCOPY W/BIOPSY SINGLE/MULTIPLE 11/22/2007 ENDOSCOPY UPPER-EGD/M24 LAP, REVISION MIKA FUNDOPLASTY 03/20/[address] Layla VORA SURG CHOLECYSTECTOMY W/CHOLANGIOGRAPHY 04/12/2009 PAST SURGICAL HISTORY OF 11/2014 AAA repair PAST SURGICAL HISTORY OF 2015 both eyes cataract removal. PAST SURGICAL HISTORY OF 10/13/2017 right shoulder surgery per Sujata REGALADO [facility]ICAL [facility] 5 YRS/> REDUCIBLE 04/12/2009 STRESS TEST 02/27/2014 WNL Physical Exam: OBJECTIVE: Constitutional: Pt is a well developed 83 year old male who is alert, oriented, cooperative and in no apparent distress. Eyes: Following during examination. No redness or drainage. Respiratory: RR normal and nonlabored. Even breathing. No evidence of distress. Psychology: Patient is engaged during conversation. Normal affect and mood. Does not appear depressed or anxious. Vascular: DP and PT pulses are papable to left foot. CFT is brisk. Skin temperature is warm to warm. Pulses are audible with doppler Dermatological: Left hallux nail plate is dystrophic. ASSESSMENT: (L60.3) Onychodystrophy (primary encounter diagnosis) PLAN: Discussed dystrophic toenail of left hallux. This does cause him pain when it grows distally. I do have concerns that with distal growth, it will abut the distal tuft and lead to pain and perhaps ingrown with or without infection. He had infection last year that was a major issue. Discussed options not limited to keeping the nail cut short vs permanent nail removal. Discussed risks of nail removal not limited to infection, pain, swelling, bleeding, slow wound healing, recurrent nail growth, loss of toe. We discussed slow healing due to his medical history/immunocompromised state. He has been cleared in the past for nail removal. He would like to proceed with permanent nail removal via phenol matrixectomy Discussed risks of toenail procedure not limited to infection, pain, swelling, bleeding, painful scarring, recurrence, need for revised procedure. Patient consented to proceed. Patient was properly identified by name and procedure. The left hallux was then injected with 3 cc of 1% lidocaine plain. The toe was then prepped and draped in the usual aseptic technique. A digital tournicot was applied to the toe. The entire nail border was then freed and removed. Careful inspection was performed to assure no remaining spicule present. 3 applications of phenol were then administered x 30 seconds each followed by alcohol rinse. Sterile dressing was then applied consisting of amerigel, guaze, sahil and coban. Tournicot was removed and hyperemic response was noted. Patient tolerated well. Patient will f/u in 2 weeks. Sofia Boyce DPM AMB ROOMING INTAKE FLOWSHEET DATA Pain Pain Level: 7 Pain Location: Toe Description: Sharp Frequency: Intermittent Patient presents with: Left Great Toe - Established Patient, Follow Up, Ingrown Toenail Patient presents for follow up left toenail pain. States that he would like a permanent removal of the nail. FOUZIA 11/16/23 documented in this encounter [facility] 12-09-2023 Instructions Sofia Boyce - 12/09/2023 1:13 PM EDT Post-Op Nail Instructions Minimize activity until the anesthesia wears off (about 2-8 hours). Increase activity to tolerance Remove bandage tomorrow Soak affected toe/foot in epsom salts for 15-20 minutes twice daily After soaking, apply antibiotic ointment (OTC Neosporin) to affected toe and re bandage OTC Ibuprofen if having pain, provided you have no allergies or intolerance to NSAIDS Mild drainage, redness, and blood is expected, but if you expeirence severe pain, increase in drainage, swelling, or red streaking please contact our office immediately Feel free to contact office as well if you have any questions/concerns [phone], ask for Podiatry Nurse documented in this encounter [facility] 12-09-2023 Note HNO ID: [id number] Author: SOFIA BOYCE, ? Service: ? Author Type: Physician Type: Progress Notes Filed: 12/10/2023 11:33 Note Text: FOLLOW UP PODIATRIC OFFICE VISIT Chief Complaint: This 83 year old who presents for follow up:left hallux nail thickening Patient presents to clinic for follow-up left hallux nail thickening Complains of thick nail that at one time, led to severe infection He would like to proceed with permanent nail removal today. He has no other complaints. PAIN EVALUATION 12/09/2023 1308 Pain Level: 7 Pain Location: Toe Description: Sharp Frequency: Intermittent Hemoglobin A1C Date Value Ref Range Status 04/03/2023 4.9 4.3 - 5.6 % Final Comment: [place] Diabetes [employer] guidelines indicate that patients with HgbA1c in the range 5.7-6.4% are at increased risk for development of diabetes, and intervention by lifestyle modification may be beneficial. HgbA1c greater or equal to 6.5% is considered diagnostic of diabetes. 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 [...] 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 10/07/2015 DDD (degenerative disc disease), lumbar 10/07/2015 Degeneration of lumbar or lumbosacral intervertebral disc Diaphragmatic hernia without mention of obstruction or gangrene Elevated fasting blood sugar 11/18/2017 Enlargement of lymph nodes Erectile dysfunction 10/07/2015 Family history of dementia 10/07/2015 GERD without esophagitis 10/07/[address] 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 pt to go see Dr. 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 W/U with event monitor in past was normal per cardio. past medical history skin cancer forehead--unsure which kind Primary insomnia 10/07/2015 Psoriasis Rosacea 11/11/2016 Skin cancer screening 07/09/2023 [facility] Subclavian artery stenosis, right (HCC) 06/17/2017 US 06/16/2017 50-99% Thrombocytopenia (HCC) 10/07/2015 Waldenstrom's macroglobulinemia 10/07/2015 Current Outpatient Medications Medication Sig aspirin 81 mg chewable tablet Take 81 mg by mouth once daily. lactulose 10 gram/15 mL solution Take 1-2 table spoons a day for constipation rituximab/hyaluronidase,human (RITUXAN HYCELA SUBCUTANEOUS) Inject subcutaneously. rosuvastatin (CRESTOR) 20 mg tablet Take 1 tablet by mouth once daily. omeprazole (PRILOSEC) 10 mg capsule Take 1 capsule by mouth once daily. (Patient taking differently: Take 10 mg by mouth as needed.) albuterol HFA (PROAIR HFA) 90 mcg/actuation inhaler Inhale 2 Puffs as instructed every 6 hours as needed. amoxicillin/potassium clav (AUGMENTIN ORAL) Take by mouth. (Patient not taking: Reported on 10/21/2023) Doxycycline Hyclate 100 mg EC tablet Take 100 mg by mouth two times a day. (Patient not taking: Reported on 10/21/2023) No current facility-administered medications for this visit. ALLERGIES Allergen Reactions Elavil [Amitriptyli* Other: See Comments Tired and depressed feeling PAST SURGICAL HISTORY Procedure Laterality Date 2D ECHO (EXEP) 01/30/2014 EF=60%, LVH, no valve abnormalities COLONOSCOPY 09/21/2014 Dr. Bright, polyp, repeat 3 yrs COLONOSCOPY 02/17/2018 repeat 3 yrs, Dr. Bright COLONOSCOPY W/BIOPSY SINGLE/MULTIPLE 11/22/2007 ENDOSCOPY UPPER-EGD/M24 LAP, REVISION MIKA FUNDOPLASTY 03/20/[address] Layla VORA SURG CHOLECYSTECTOMY W/CHOLANGIOGRAPHY 04/12/2009 PAST SURGICAL HISTORY OF 11/2014 AAA repair PAST SURGICAL HISTORY OF 2015 both eyes cataract removal. PAST SURGICAL HISTORY OF 10/13/2017 right shoul (more content not included)... [facility] 12-09-2023 Note HNO ID: [id number] Author: SAKINA WISE RN Service: ? Author Type: Registered Nurse Type: Progress Notes Filed: 12/10/2023 11:33 Note Text: AMB ROOMING INTAKE FLOWSHEET DATA Pain Pain Level: 7 Pain Location: Toe Description: Sharp Frequency: Intermittent Patient presents with: Left Great Toe - Established Patient, Follow Up, Ingrown Toenail Patient presents for follow up left toenail pain. States that he would like a permanent removal of the nail. FOUZIA 11/16/23 [facility] 11-23-2023 Instructions Molly Orozco DO - 11/23/2023 10:56 AM EDT Sometimes symptoms such as lightheadedness, tremor, cramping, and heart racing can be worsened by dehydration. We recommend that you try to work on your hydration, at least 6-8 cups/day. Please let us know if your tremor becomes worse or if it's interfering with your daily activities, as we can always try a medication to help with this. We will check some labs today and plan to see you back in about 6 months. At that time, we will determine if you need further infusions. If you notice any changes before the, please let us know. documented in this encounter [facility] 11-23-2023 History of Present illness Narrative Follow-Up/Established Patient Visit - Neuromuscular Clinic Resident/Fellow: Molly Orozco DO SERVICE DATE: 11/23/23 SERVICE TIME: 1000 Reason for Return Visit: This is Mr. Adarsh Sorensen, a 83 year old year old male who is returning for follow up evaluation of anti-MAG neuropathy. This patient was last seen on here on 08/23/23. 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 He developed unsteadiness when walking and had a fall. 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 04/06/23: Rituxan 1000mg dose 1 04/21/23: Rituxan 1000mg dose 2 09/21/23: Rituxan 1000mg Interval HPI: Overall symptoms have been stable. He has intermittent tingling in the toes and fingertips but no significant numbness. Balance has been about the same, with no falls or focal weakness. Last Rituxan in September. Reports recent infection of the L great toe, was on Augmentin for one month. No fevers or chills. He has been feeling like he's in a daze, lightheaded, and tired in the afternoons, more so after recent infusion. Hasn't been able to sleep well in about a year, attributes this to work-related stress. 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 Constipation is still present, slightly improved. Patient reports intermittent throbbing R groin pain and cramping in the thigh for the last 2 months. Noted HR 51 this morning. He says it's always in the 50s but he has been waking up with sensation of heart racing with HR up to 80s. Previous Data: Lab Results Component Value Date Hemoglobin A1C 4.9 04/03/2023 Vitamin B12 399 04/03/2023 MPA Result M protein is present. (A) 03/20/2023 MPA [place]/Lambda Ratio 3.44 (H) 02/25/2012 Interpretation (MPA) 03/20/2023 Atypical restricted bands are present in the IgM and kappa regions. Consistent with IgM kappa monoclonal gammopathy. Staff Review ([facility]) Reviewed by Dr. Jaren Hagan MD 03/20/2023 K/L Ratio, Serum 7.14 (H) 03/20/2023 Sed Rate, Westergren 26 (H) 07/02/2023 CRP <0.3 07/02/2023 Angiotensin Converting Enzyme 24 03/20/2023 CK 60 11/26/2001 TSH 3.770 05/12/2023 Asialo-GM1 Antibodies 7 03/20/2023 GM1 Antibodies 8 03/20/2023 GM2 Antibodies 8 03/20/2023 GD1a Antibodies 37 03/20/2023 GD1b Antibodies 20 03/20/2023 GQ1b Antibodies 19 03/20/2023 Lab Results Component Value Date Hepatitis B Core Ab, Total Negative 03/25/2023 Hep C Antibody IA Negative 03/25/2023 Hep B Surface Ab, Qual Negative 03/25/202303/2023 VEGF: 35 MAG Ab IgM, FARIDA: >70,000(H) Contactin, Neurofascin: Negative 06/2023 MAG Ab IgM, FARIDA: >67989 EMG/NCS (03/19/23): -Absent sensory responses in the upper and lower limbs, sparing the superficial radial response. -Low amplitude motor responses in the lower limb, with notably prolonged distal latencies, slowed conduction velocities, evidence of conduction block (52% at the peroneal recording EDB, 36% at the tibial recording AH) with temporal dispersion. -The median motor response is prolonged, but normal in amplitude. The ulnar motor response (recording ADM) is low amplitude and minimally prolonged. -F responses are markedly prolonged in the upper and lower limb. -Absent H reflex which may be normal given the patient's age. -Chronic motor axon loss with a distal predominance in the upper and lower limb, with sparse active denervation in medial gastrocnemius and the paraspinals. 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 CURRENT MEDICATIONS Current Outpatient Medications Medication Sig lactulose 10 gram/15 mL solution Take 1-2 table spoons a day for constipation rituximab/hyaluronidase,human (RITUXAN HYCELA SUBCUTANEOUS) Inject subcutaneously. rosuvastatin (CRESTOR) 20 mg tablet Take 1 tablet by mouth once daily. omeprazole (PRILOSEC) 10 mg capsule Take 1 capsule by mouth once daily. (Patient taking differently: Take 10 mg by mouth as needed.) albuterol HFA (PROAIR HFA) 90 mcg/actuation inhaler Inhale 2 Puffs as instructed every 6 hours as needed. amoxicillin/potassium clav (AUGMENTIN ORAL) Take by mouth. (Patient not taking: Reported on 10/21/2023) Doxycycline Hyclate 100 mg EC tablet Take 100 mg by mouth two times a day. (Patient not taking: Reported on 10/21/2023) No current facility-administered medications for this visit. All relevant past medical, surgical, social and family history reviewed, confirmed, and updated as necessary. ALLERGIES ALLERGIES Allergen Reactions Elavil [Amitriptyli* Other: See Comments Tired and depressed feeling OBJECTIVE: REVIEW OF SYSTEMS: Review of symptoms including constitutional, eyes, ENT, neck, respiratory, cardiovascular, GI, , musculoskeletal, hematologic, oncologic, endocrine, and psychiatric categories is unchanged except for as noted in HPI. PHYSICAL EXAM: BP 112/62 Pulse (!) 51 Ht 182.9 cm (6') Wt 77.1 kg (169 lb 15.6 oz) SpO2 98% BMI 23.05 kg/m General appearance: Awake and alert. No distress. Cooperative with exam. Focused Neurological Exam: No major changes from prior exam. Mental status including: orientation to time, place, person, recent and remote memory, attention span and concentration, language, and fund of knowledge is essentially normal. CRANIAL NERVES: II: No visual field defects. III-IV-: Pupils equal round and reactive to light. Normal conjugate, extra-ocular eye movements in all directions of gaze. No nystagmus. No ptosis. V: Normal facial sensation. VII: Normal facial symmetry and movements. VIII: Normal hearing and vestibular function. IX-X: Normal palatal movement. XI: Normal shoulder shrug and head rotation. XII: Normal tongue strength and range of motion, no deviation or fasciculation. Speech is not dysarthric. MOTOR: No appreciable atrophy, fasciculations or abnormal movements. Tone is within normal limits. Strength/Power (MRC grade- out of 5): Upper extremity power, when graded out of 5, revealed: Right Left shoulder abduction 5 5 shoulder adduction 5 5 shoulder internal rotation 5 5 shoulder external rotation 5 5 elbow extension 5 5 elbow flexion 5 5 forearm supination 5 5 forearm pronation 5 5 wrist extension 5 5 wrist flexion 5 5 finger extension 5 5 deep finger flexion (D2-3) 5 5 deep finger flexion (D4-5) 5 5 thumb flexion with FPL 5 5 thumb abduction with APB 5 5 finger abduction 5 5 Lower extremity strength, when reported the same way, showed: Right Left hip flexion 5 5 hip extension 5 5 hip adduction 5 5 hip abduction 5 5 knee flexion 5 5 knee extension 5 5 ankle dorsiflexion 5 5 ankle plantar flexion 5 5 foot inversion 5 5 foot eversion 5 5 toe extension 5 5 toe flexion 4+ 4+ Able to rise from a chair without using arms. Deep Tendon Reflexes (DTRs): Right Left Biceps 2+ 2+ Triceps 2+ 2+ Brachioradialis 2+ 2+ Patellar 0+ 0+ Achilles 0+ 0+ Vann's sign: No Plantar responses: flexor Clonus: No SENSORY: Pinprick: Mildly diminished at the toes up to mid-shins, bilaterally. Temperature: Diminished to cold temperature at distal feet and hands when compared to chawla/forearm. Vibration: Diminished on the R at ankle (3 seconds), diminished on the L at toe (4 seconds), intact at bilateral MCPs Proprioception: Impaired at bilateral toes COORDINATION/GAIT: Mild dysmetria FTN on the R and b/l HTS. Intact rapid alternating movements bilaterally. Gait narrow-based and stable. Able to tandem walk with mild difficulty, can stand on toes/heels. ASSESSMENT: This is Adarsh Sorensen, a 83 year old male with: 1. Anti-MAG demyelinating polyneuropathy 2. Mild folate deficiency 3. 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 Given continued stability, will re-evaluate need for further treatment in 6 months. Also discussed the importance of adequate hydration to address his other symptoms such as lightheadedness and worsening tremor. His tremor remains limited to the left hand and seems more like an essential tremor or possibly related to his neuropathy; however, it does not significantly impact his daily activities at this time. PLAN: - check CD19 and MAG Ab IgM - encourage adequate hydration - continue to monitor tremor, consider treatment if worsening symptoms - RTC in 6 months, re-evaluate need for further Rituxan at that time When available, results of the above investigations and possible further recommendations will be communicated to the patient via telephone/MyChart. Patient to call office if not contacted after expected testing turnaround time. Labs/Imaging: Orders Placed This Encounter Myelin Associated Glycoprotein (MAG) Ab, IgM Standing Status: Future Number of Occurrences: 1 Standing Expiration Date: 02/22/2024 CD19 Absolute Count Standing Status: Future Number of Occurrences: 1 Standing Expiration Date: 02/22/2024 Molly Orozco DO Neurology Resident/Fellow In the service of neuromuscular staff, Dr. Maxwell Wahrton DO. [facility] STAFF: TEACHING PHYSICIAN NOTE OF PERSONAL INVOLVEMENT IN CARE INCLUDING MEDICAL DECISION MAKING I have reviewed the clinical details obtained and documented by Dr. Orozco and I have participated in the patel components, including pertinent aspects of the history and physical examination. I have discussed the case and management of the patient's care with Dr. Orozco. I essentially agree with the assessment and plan as documented above. Edits to the note are indicated by italics. This note was partially created using voice recognition software and is inherently subject to errors including those of syntax and sound-alike substitutions which may escape proofreading. In such instances, original meaning may be extrapolated by contextual derivation. I spent a total of 30 minutes on the date of the service which included preparing to see the patient, [id number] patient care, completing clinical documentation, obtaining and/or reviewing separately obtained history, and counseling and educating the patient/family/caregiver. Maxwell Wharton DO Staff, Neuromuscular Medicine [facility] documented in this encounter [facility] 11-16-2023 History of Present illness Narrative Images from the original note were not included. FOLLOW UP PODIATRIC OFFICE VISIT Chief Complaint: This 82 year old who presents for follow up:left great toe pain Patient presents to clinic for evaluation of left great toe Continues to complain of pain to left great toe States there is pain with walking. Can experience pain even at rest. PAIN EVALUATION 11/16/2023 1014 Pain Level: 8 Pain Location: Foot-Left Description: Sharp Duration Amount of Time: -- ongoing Frequency: Intermittent Intervention/Comfort measure: Other: See comment none Hemoglobin A1C Date Value Ref Range Status 04/03/2023 4.9 4.3 - 5.6 % Final Comment: [place] [employer] guidelines indicate that patients with HgbA1c in the range 5.7-6.4% are at increased risk for development of diabetes, and intervention by lifestyle modification may be beneficial. HgbA1c greater or equal to 6.5% is considered diagnostic of diabetes. 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 [...] 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 10/07/2015 DDD (degenerative disc disease), lumbar 10/07/2015 Degeneration of lumbar or lumbosacral intervertebral disc Diaphragmatic hernia without mention of obstruction or gangrene Elevated fasting blood sugar 11/18/2017 Enlargement of lymph nodes Erectile dysfunction 10/07/2015 Family history of dementia 10/07/2015 GERD without esophagitis 10/07/[address] 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 pt to go see Dr. 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 W/U with event monitor in past was normal per cardio. past medical history skin cancer forehead--unsure which kind Primary insomnia 10/07/2015 Psoriasis Rosacea 11/11/2016 Skin cancer screening 07/09/2023 Seeing [facility] Subclavian artery stenosis, right (HCC) 06/17/2017 US 06/16/2017 50-99% Thrombocytopenia (HCC) 10/07/2015 Waldenstrom's macroglobulinemia 10/07/2015 Current Outpatient Medications Medication Sig rituximab/hyaluronidase,human (RITUXAN HYCELA SUBCUTANEOUS) Inject subcutaneously. rosuvastatin (CRESTOR) 20 mg tablet Take 1 tablet by mouth once daily. omeprazole (PRILOSEC) 10 mg capsule Take 1 capsule by mouth once daily. (Patient taking differently: Take 10 mg by mouth as needed.) albuterol HFA (PROAIR HFA) 90 mcg/actuation inhaler Inhale 2 Puffs as instructed every 6 hours as needed. lactulose 10 gram/15 mL solution Take 1-2 table spoons a day for constipation amoxicillin/potassium clav (AUGMENTIN ORAL) Take by mouth. (Patient not taking: Reported on 10/21/2023) Doxycycline Hyclate 100 mg EC tablet Take 100 mg by mouth two times a day. (Patient not taking: Reported on 10/21/2023) No current facility-administered medications for this visit. ALLERGIES Allergen Reactions Elavil [Amitriptyli* Other: See Comments Tired and depressed feeling PAST SURGICAL HISTORY Procedure Laterality Date 2D ECHO (EXEP) 01/30/2014 EF=60%, LVH, no valve abnormalities COLONOSCOPY 09/21/2014 Dr. Bright, polyp, repeat 3 yrs COLONOSCOPY 02/17/2018 repeat 3 yrs, Dr. Bright COLONOSCOPY W/BIOPSY SINGLE/MULTIPLE 11/22/2007 ENDOSCOPY UPPER-EGD/M24 LAP, REVISION MIKA FUNDOPLASTY 03/20/[address] Layla VORA SURG CHOLECYSTECTOMY W/CHOLANGIOGRAPHY 04/12/2009 PAST SURGICAL HISTORY OF 11/2014 AAA repair PAST SURGICAL HISTORY OF 2015 both eyes cataract removal. PAST SURGICAL HISTORY OF 10/13/2017 right shoulder surgery per Sujata RPR UMBILICAL HRNA 5 YRS/> REDUCIBLE 04/12/2009 STRESS TEST 02/27/2014 WNL Physical Exam: OBJECTIVE: Constitutional: Pt is a well developed 82 year old male who is alert, oriented, cooperative and in no apparent distress. Eyes: Following during examination. No redness or drainage. Respiratory: RR normal and nonlabored. Even breathing. No evidence of distress. Psychology: Patient is engaged during conversation. Normal affect and mood. Does not appear depressed or anxious. NVSI unchanged from previous visit. Dermatological: No open wounds noted to left foot Nail of left hallux is starting to return. It is about 1/3-1/2 returned No pain or ingrown at this time. No signs of infection Musculoskeletal/Orthopaedic: Patient has pain to palpation of left hallux ipj There is decreased rom of left hallux ipj ASSESSMENT: (L60.3) Onychodystrophy (primary encounter diagnosis) Arthritis of toe PLAN: Discussed pain in left hallux. I see no signs of infection clinically. No redness no open wounds. Minimal swelling I think the pain he has is from arthritis of left hallux ipj. Would continue with good supportive shoes/sneakers. Can take over the counter pain relieves as needed I do feel that once the nail grows distally, there is risk that it may grow into the distal tuft. I would make plans to keep the nail cut short or consider permanent nail removal This patient would like to consider permanent nail removal in the office. He would like to schedule for the future. For now, keep nail cut short Offered pvr prior but he declined. He did heal the past nail removal and has good hair growth distally and h as palpable pulses Follow-up for in office nail removal Sofia Boyce DPM AMB ROOMING INTAKE FLOWSHEET DATA Pain Pain Level: 8 Pain Location: Foot-Left Description: Sharp Duration Amount of Time: (ongoing) Frequency: Intermittent Intervention/Comfort measure: Other: See comment (none) documented in this encounter [facility] 11-11-2023 Telephone encounter Note Patient schedule next week [facility] 11-11-2023 Miscellaneous Notes Patient schedule next week documented in this encounter [facility] 10-21-2023 Instructions Jared Robertson MD - 10/21/2023 10:[address] Robertson an update on constipation in a week or sooner. documented in this encounter [facility] 10-21-2023 History of Present illness Narrative Chief Complaint No chief complaint on file. HPI Adarsh Sorensen is a 82 year old male who presents here today for follow up on bowels. . Patient was seen 10/07/2023 for constipation. Patient had a rituxin infusion and subsequently is when the constipation started. Xray was completed and was encouraged to hydrate well. Xray didn't show any obstructions. Notable amount of gas distention. Patient was seen in [facility] 10/17/[address] abd that only showed stool burden. Had an enema and had just some watery release. He's had some small quantities of harder stool since ER visit after trying colace and the Mirlax. Feels uncomfortable and some bloating. Still passing a lot of gas. Slight upset stomach at times but no vomiting. Drinks prune juice daily. Past medical history, appointments, medications, allergies reviewed. 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 Bright 10/23/2015: Benign non-nodular prostatic hyperplasia without lower urinary tract symptoms 10/07/2015: Bilateral carotid artery stenosis Comment: Sees Dr. Rojas, : 11/01/14 less than 50% bilaterally, no change 10/2015, no change 06/16/2017: bilaterally 20-40% No date: Cardiac dysrhythmia, unspecified 10/09/2005: Chronic bronchitis (HCC) 10/07/2015: Chronic low back pain without sciatica 10/23/2015: Chronic pain syndrome Comment: for lymphoma pain and diverticulsis pain. On Neurontin 10/07/2015: 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 10/07/2015: DDD (degenerative disc disease), lumbar No date: Degeneration of lumbar or lumbosacral intervertebral disc No date: Diaphragmatic hernia without mention of obstruction or gangrene 11/18/2017: Elevated fasting blood sugar No date: Enlargement of lymph nodes 10/07/2015: Erectile dysfunction 10/07/2015: Family history of dementia 10/07/2015: GERD without esophagitis Comment: Sees Dr. 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 pt to go see Dr. Francisco 05/201803/26/2023: Neuropathy associated with anti-MAG antibody 06/07/2018: Palpitations Comment: Chronic, typically at night laying on his left side. W/U with event monitor in past was normal per cardio. No date: past medical history Comment: skin cancer forehead--unsure which kind 10/07/2015: Primary insomnia No date: Psoriasis 11/11/2016: Rosacea 07/09/2023: Skin cancer screening Comment: Seeing [facility] 06/17/2017: Subclavian artery stenosis, right (HCC) Comment: US 06/16/2017 50-99% 10/07/2015: Thrombocytopenia (HCC) 10/07/2015: Waldenstrom's macroglobulinemia (HCC) Previous Surgical History PAST SURGICAL HISTORY 01/30/2014: 2D ECHO (EXEP) Comment: EF=60%, LVH, no valve abnormalities 09/21/2014: COLONOSCOPY Comment: Dr. Bright, polyp, repeat 3 yrs 02/17/2018: COLONOSCOPY Comment: repeat 3 yrs, Dr. Bright 11/22/2007: COLONOSCOPY W/BIOPSY SINGLE/MULTIPLE No date: ENDOSCOPY UPPER-EGD/M24 03/20/2022: LAP, REVISION MIKA FUNDOPLASTY Comment: per Dr. Rich 04/12/2009: LAPS SURG CHOLECYSTECTOMY W/CHOLANGIOGRAPHY 11/2014: PAST SURGICAL HISTORY OF Comment: AAA repair 2016: PAST SURGICAL HISTORY OF Comment: both eyes cataract removal. 10/13/2017: PAST SURGICAL HISTORY OF Comment: right shoulder surgery per Sujata 04/12/2009: RPR UMBILICAL HRNA 5 YRS/> REDUCIBLE 02/27/2014: STRESS TEST Comment: WNL Family History FAMILY HISTORY Problem Relation Age of Onset Multiple Sclerosis Brother living Colon Cancer Father 74 of metastatic brain CA Diabetes Father other (schiophrenia) Sister doing ok since e;ectroshock Alzheimer's Disease Mother Patient Allergies ALLERGIES Allergen Reactions Elavil [Amitriptyli* Other: See Comments Tired and depressed feeling Current Medications Current Outpatient Medications on File Prior to Visit Medication Sig ondansetron orally disintegrating (ZOFRAN ODT) 4 mg disintegrating tablet Take 1 tablet by mouth every 12 hours as needed for nausea/vomiting. amoxicillin/potassium clav (AUGMENTIN ORAL) Take by mouth. rituximab/hyaluronidase,human (RITUXAN HYCELA SUBCUTANEOUS) Inject subcutaneously. Doxycycline Hyclate 100 mg EC tablet Take 100 mg by mouth two times a day. rosuvastatin (CRESTOR) 20 mg tablet Take 1 tablet by mouth once daily. omeprazole (PRILOSEC) 10 mg capsule Take 1 capsule by mouth once daily. (Patient not taking: Reported on 08/23/2023) albuterol HFA (PROAIR HFA) 90 mcg/actuation inhaler Inhale 2 Puffs as instructed every 6 hours as needed. No current facility-administered medications on file prior to visit. Social History Social History Tobacco Use Smoking status: Former Current packs/day: 0.00 Average packs/day: 1 pack/day for 8.0 years (8.0 ttl pk-yrs) Types: Cigarettes Start date: 02/15/1966 Quit date: 02/15/1974 Years since quittin.7 Smokeless tobacco: Never Tobacco comments: NO EXPOSURE TO 2ND HAND SMOKE Vaping Use Vaping status: Never Used Substance Use Topics Alcohol use: Yes Comment: occasionally Drug use: No Review of Symptoms REVIEW OF SYSTEMS See HPI EXAM: BP 115/68 Pulse (!) 51 Ht 182.9 cm (6') Wt 77.1 kg (170 lb) BMI 23.06 kg/m Abdomen: has some mld distention but soft. Has mild tenderness on the left mid abdomin. No guarding or rebound tenderness. Health Maintenance List Covid-19 Vaccine( - season) due on 10/17/2023 Influenza Vaccine(1) due on 10/17/2023 DTaP,Tdap,Td Vaccine(2 - Td or Tdap) due on 07/08/2024 RSV Vaccine(1 - 1-dose 60+ series) due on 07/08/2024 LDL Cholesterol due on 04/03/2024 Depression Screening due on 07/08/2024 Anxiety Screening due on 07/08/2024 Diabetes Screening due on 07/28/2026 Advance Directive Discussion Completed Shingrix Vaccine Completed Pneumococcal Vaccine: 65+ Completed HPV Vaccine Aged Out Colorectal Cancer Screening Discontinued Data reviewed A/P ASSESSMENT/PLAN: 1. Irritable bowel syndrome with both constipation and diarrhea - ICD9: 564.1, ICD10: K58.2 - at this point is having more issues with the constipation. Will trial Lactulose 15-30 ml a day. Discussed adjusting dose if helping but getting too lose. If not helping will consider starting Linzess. Requested Prescriptions Signed Prescriptions Disp Refills lactulose 10 gram/15 mL solution 946 mL 5 Sig: Take 1-2 table spoons a day for constipation F/u next routine. Patient to give me an update me in a week. Jared Robertson MD documented in this encounter [facility] 10-19-2023 History of Present illness Narrative Scan on 10/17/2023 5:16 PM by Provider, JORDAN Honeycutt: Consultation - Emergency Medicine Patient is scheduled this week for follow up. Eliza Beckett MA documented in this encounter [facility] 10-11-2023 History of Present illness Narrative FOLLOW UP PODIATRIC OFFICE VISIT Chief Complaint: This 82 year old who presents for follow up:left great toe swelling. Patient presents to clinic for follow-up left hallux swelling Has history of osteomyelitis of left hallux Has completed oral antibiotic Reports minimal swelling Denies any pain PAIN EVALUATION No data found in the last 1 encounters. Hemoglobin A1C Date Value Ref Range Status 04/03/2023 4.9 4.3 - 5.6 % Final Comment: [place] [employer] guidelines indicate that patients with HgbA1c in the range 5.7-6.4% are at increased risk for development of diabetes, and intervention by lifestyle modification may be beneficial. HgbA1c greater or equal to 6.5% is considered diagnostic of diabetes. 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 Bright 10/23/2015: Benign non-nodular prostatic hyperplasia without lower urinary tract symptoms 10/07/2015: Bilateral carotid artery stenosis Comment: Sees Dr. Rojas, : 11/01/14 less than 50% bilaterally, no change 10/2015, no change 06/16/2017: bilaterally 20-40% No date: Cardiac dysrhythmia, unspecified 10/09/2005: Chronic bronchitis (HCC) 10/07/2015: Chronic low back pain without sciatica 10/23/2015: Chronic pain syndrome Comment: for lymphoma pain and diverticulsis pain. On Neurontin 10/07/2015: 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 10/07/2015: DDD (degenerative disc disease), lumbar No date: Degeneration of lumbar or lumbosacral intervertebral disc No date: Diaphragmatic hernia without mention of obstruction or gangrene 11/18/2017: Elevated fasting blood sugar No date: Enlargement of lymph nodes 10/07/2015: Erectile dysfunction 10/07/2015: Family history of dementia 10/07/2015: GERD without esophagitis Comment: Sees Dr. 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 pt to go see Dr. Francisco 05/201803/26/2023: Neuropathy associated with anti-MAG antibody 06/07/2018: Palpitations Comment: Chronic, typically at night laying on his left side. W/U with event monitor in past was normal per cardio. No date: past medical history Comment: skin cancer forehead--unsure which kind 10/07/2015: Primary insomnia No date: Psoriasis 11/11/2016: Rosacea 07/09/2023: Skin cancer screening Comment: Seeing [facility] 06/17/2017: Subclavian artery stenosis, right (HCC) Comment: US 06/16/2017 50-99% 10/07/2015: Thrombocytopenia (HCC) 10/07/2015: Waldenstrom's macroglobulinemia (HCC) Current Outpatient Medications Medication Sig ondansetron orally disintegrating (ZOFRAN ODT) 4 mg disintegrating tablet Take 1 tablet by mouth every 12 hours as needed for nausea/vomiting. amoxicillin/potassium clav (AUGMENTIN ORAL) Take by mouth. rituximab/hyaluronidase,human (RITUXAN HYCELA SUBCUTANEOUS) Inject subcutaneously. Doxycycline Hyclate 100 mg EC tablet Take 100 mg by mouth two times a day. rosuvastatin (CRESTOR) 20 mg tablet Take 1 tablet by mouth once daily. omeprazole (PRILOSEC) 10 mg capsule Take 1 capsule by mouth once daily. (Patient not taking: Reported on 08/23/2023) albuterol HFA (PROAIR HFA) 90 mcg/actuation inhaler Inhale 2 Puffs as instructed every 6 hours as needed. No current facility-administered medications for this visit. ALLERGIES Allergen Reactions Elavil [Amitriptyli* Other: See Comments Tired and depressed feeling PAST SURGICAL HISTORY 01/30/2014: 2D ECHO (EXEP) Comment: EF=60%, LVH, no valve abnormalities 09/21/2014: COLONOSCOPY Comment: Dr. Bright, polyp, repeat 3 yrs 02/17/2018: COLONOSCOPY Comment: repeat 3 yrs, Dr. Bright 11/22/2007: COLONOSCOPY W/BIOPSY SINGLE/MULTIPLE No date: ENDOSCOPY UPPER-EGD/M24 03/20/2022: LAP, REVISION MIKA FUNDOPLASTY Comment: per Dr. Rich 04/12/2009: LAPS SURG CHOLECYSTECTOMY W/CHOLANGIOGRAPHY 11/2014: PAST SURGICAL HISTORY OF Comment: AAA repair 2016: PAST SURGICAL HISTORY OF Comment: both eyes cataract removal. 10/13/2017: PAST SURGICAL HISTORY OF Comment: right shoulder surgery per Sujata 04/12/2009: RPR UMBILICAL HRNA 5 YRS/> REDUCIBLE 02/27/2014: STRESS TEST Comment: WNL Physical Exam: OBJECTIVE: Constitutional: Pt is a well developed 82 year old male who is alert, oriented, cooperative and in no apparent distress. Eyes: Following during examination. No redness or drainage. Respiratory: RR normal and nonlabored. Even breathing. No evidence of distress. Psychology: Patient is engaged during conversation. Normal affect and mood. Does not appear depressed or anxious. NVSI unchanged from previous visit. Dermatological: Left hallux nail plate is starting to return. No ingrown noted at this time. Musculoskeletal/Orthopaedic: Patient has no pain to palpation of left hallux Minimal swelling is noted to left hallux. 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 If nail is found to be thick in the future and leads to issues, could consider total nail matrixectomy Sofia Boyce DPM AMB ROOMING INTAKE FLOWSHEET DATA Patient presents with: Left Great Toe - Established Patient, Follow Up, Ingrown Toenail Marsha Kennedy LPN documented in this encounter [facility] 10-07-2023 History of Present illness Narrative Radiology Service Progress Note PATIENT NAME: Adarsh Sorensen DATE OF SERVICE: October 07, 2023 TIME: 4:23 PM PATIENT IDENTITY VERIFICATION COMPLETED USING TWO (2) IDENTIFIERS: Name and Date of confirmed by patient verbally. FALL SCREENING: Has the patient had 2 falls in the last year or 1 fall with injury or currently using an Ambulatory Assistive Device (Walker, Cane, Wheelchair, Crutches, etc.)? No PATIENT GENDER DATA: Male PATIENT RELEVANT IMPLANT DATA REVIEWED: Yes PATIENT PRESENTS WITH AN IMPLANTABLE OR ATTACHED PRESS FEEDER BROOMCORN: No RADIOLOGY DEPARTMENT: General X-ray: Exam(s) Completed: Lower Extremity X-Ray(s): Toes, Left PERIPHERAL IV DATA: Not applicable SIGNED BY: RT Penelope(R) October 07, 2023 4:23 PM documented in this encounter [facility] 10-07-2023 History of Present illness Narrative Chief Complaint Patient presents with: Constipation HPI Adarsh Sorensen is a 82 year old male who presents here today for Above Complaints.. Patient presents for constipation. Patient had rituxin infusion and subsequently has not had a regular BM since 09/20. Patient reports at first he was having small hard bowel movements but has now transitioned to diarrhea. Patient has tried mag citrate, miralax, mineral oil, and an enema. Reports nausea. Denies vomiting. Past medical history, appointments, medications, allergies reviewed. 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 Bright 10/23/2015: Benign non-nodular prostatic hyperplasia without lower urinary tract symptoms 10/07/2015: Bilateral carotid artery stenosis Comment: Sees Dr. Rojas, : 11/01/14 less than 50% bilaterally, no change 10/2015, no change 06/16/2017: bilaterally 20-40% No date: Cardiac dysrhythmia, unspecified 10/09/2005: Chronic bronchitis ([facility]) 10/07/2015: Chronic low back pain without sciatica 10/23/2015: Chronic pain syndrome Comment: for lymphoma pain and diverticulsis pain. On Neurontin 10/07/2015: 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 10/07/2015: DDD (degenerative disc disease), lumbar No date: Degeneration of lumbar or lumbosacral intervertebral disc No date: Diaphragmatic hernia without mention of obstruction or gangrene 11/18/2017: Elevated fasting blood sugar No date: Enlargement of lymph nodes 10/07/2015: Erectile dysfunction 10/07/2015: Family history of dementia 10/07/2015: GERD without esophagitis Comment: Sees Dr. 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 pt to go see Dr. Francisco 05/201803/26/2023: Neuropathy associated with anti-MAG antibody 06/07/2018: Palpitations Comment: Chronic, typically at night laying on his left side. W/U with event monitor in past was normal per cardio. No date: past medical history Comment: skin cancer forehead--unsure which kind 10/07/2015: Primary insomnia No date: Psoriasis 11/11/2016: Rosacea 07/09/2023: Skin cancer screening Comment: Seeing [facility] 06/17/2017: Subclavian artery stenosis, right (HCC) Comment: US 06/16/2017 50-99% 10/07/2015: Thrombocytopenia (HCC) 10/07/2015: Waldenstrom's macroglobulinemia (HCC) Previous Surgical History PAST SURGICAL HISTORY 01/30/2014: 2D ECHO (EXEP) Comment: EF=60%, LVH, no valve abnormalities 09/21/2014: COLONOSCOPY Comment: Dr. Bright, polyp, repeat 3 yrs 02/17/2018: COLONOSCOPY Comment: repeat 3 yrs, Dr. Bright 11/22/2007: COLONOSCOPY W/BIOPSY SINGLE/MULTIPLE No date: ENDOSCOPY UPPER-EGD/M24 03/20/2022: LAP, REVISION MIKA FUNDOPLASTY Comment: per Dr. Rich 04/12/2009: LAPS SURG CHOLECYSTECTOMY W/CHOLANGIOGRAPHY 11/2014: PAST SURGICAL HISTORY OF Comment: AAA repair 2016: PAST SURGICAL HISTORY OF Comment: both eyes cataract removal. 10/13/2017: PAST SURGICAL HISTORY OF Comment: right shoulder surgery per [facility] 04/12/2009: RPR UMBILICAL HRNA 5 YRS/> REDUCIBLE 02/27/2014: STRESS TEST Comment: WNL Family History FAMILY HISTORY Problem Relation Age of Onset Multiple Sclerosis Brother living Colon Cancer Father 74 of metastatic brain CA Diabetes Father other (schiophrenia) Sister doing ok since e;ectroshock Alzheimer's Disease Mother Patient Allergies ALLERGIES Allergen Reactions Elavil [Amitriptyli* Other: See Comments Tired and depressed feeling Current Medications Current Outpatient Medications on File Prior to Visit Medication Sig ondansetron orally disintegrating (ZOFRAN ODT) 4 mg disintegrating tablet Take 1 tablet by mouth every 12 hours as needed for nausea/vomiting. amoxicillin/potassium clav (AUGMENTIN ORAL) Take by mouth. rituximab/hyaluronidase,human (RITUXAN HYCELA SUBCUTANEOUS) Inject subcutaneously. Doxycycline Hyclate 100 mg EC tablet Take 100 mg by mouth two times a day. rosuvastatin (CRESTOR) 20 mg tablet Take 1 tablet by mouth once daily. omeprazole (PRILOSEC) 10 mg capsule Take 1 capsule by mouth once daily. (Patient not taking: Reported on 08/23/2023) albuterol HFA (PROAIR HFA) 90 mcg/actuation inhaler Inhale 2 Puffs as instructed every 6 hours as needed. No current facility-administered medications on file prior to visit. Social History Social History Tobacco Use Smoking status: Former Current packs/day: 0.00 Average packs/day: 1 pack/day for 8.0 years (8.0 ttl pk-yrs) Types: Cigarettes Start date: 02/15/1966 Quit date: 02/15/1974 Years since quittin.6 Smokeless tobacco: Never Tobacco comments: NO EXPOSURE TO 2ND HAND SMOKE Vaping Use Vaping status: Never Used Substance Use Topics Alcohol use: Yes Comment: occasionally Drug use: No Review of Symptoms REVIEW OF SYSTEMS SEE HPI EXAM: BP 99/65 Pulse 86 Resp 14 Wt 75.3 kg (166 lb) BMI 22.51 kg/m General Appearance: Well appearing, alert, in no acute distress, well-hydrated, well nourished.. Abdomen: Negative findings: no masses palpable and no organomegaly, Positive findings: tenderness mild RUQ and LUQ. Health Maintenance List DTaP,Tdap,Td Vaccine(2 - Td or Tdap) due on 07/08/2024 RSV Vaccine(1 - 1-dose 60+ series) due on 07/08/2024 Covid-19 Vaccine( - season) due on 07/08/2024 Influenza Vaccine(1) due on 10/17/2023 LDL Cholesterol due on 04/03/2024 Depression Screening due on 07/08/2024 Anxiety Screening due on 07/08/2024 Diabetes Screening due on 07/28/2026 Advance Directive Discussion Completed Shingrix Vaccine Completed Pneumococcal Vaccine: 65+ Completed HPV Vaccine Aged Out Colorectal Cancer Screening Discontinued ASSESSMENT/PLAN: 1. Acute constipation - ICD9: 564.00, ICD10: K59.00 -Xray pending, will await xray results for further treatment plan -Encourage patient to hydrate well and will call with xray results. Korina Aguilar APRN.MATTRESS FINISHER documented in this encounter [facility] 10-06-2023 Telephone encounter Note Call placed to patient and appointment scheduled. Enrique Jorge RN [facility] 10-06-2023 Miscellaneous Notes Call placed to patient and appointment scheduled. Enrique Jorge RN Patient calls to report constipation as recommended by Dr. Wharton. Nurse triage completed. Protocol recommends see provider within 24 hours. Patient is waiting on X-ray of abdomen results and asking if anything else is recommended until results are back. Reason for Disposition Last bowel movement (BM) > 4 days ago Answer Assessment - Initial Assessment Questions 1. STOOL PATTERN OR FREQUENCY: Patient reports normal bowel movement is daily. Since 09/21/2023. No normal bowel movement. Only passing very small solid pieces from 09/21/2023 to a week ago. The past week has had two bowel movements that were liquid only with a lot of gas. 2. STRAINING: Feels like he is straining but not getting anything out. 3. RECTAL PAIN: Patient reports no pain because nothing besides liquid is coming out. 4. STOOL COMPOSITION: liquid only at this point. 5. BLOOD ON STOOLS: No 6. CHRONIC CONSTIPATION: No problem started with last treatment. 7. CHANGES IN DIET OR HYDRATION: Patient reports no change in diet until recently. He reports he is not able to eat much because he feels full. Patient reports drinking his normal and staying hydrated. 8. MEDICINES: No new medications 9. LAXATIVES: In the past week patient has tried Mag Citrate a bottle x 2 bottles. Miralax a capful x 2. An enema x 1 which patient doesn't feel he was able to administer properly to get any kind of help. 10. ACTIVITY: No decrease in activity level. 11. CAUSE: Patient is not certain but relates it to starting at the same time as the treatments. 12. OTHER SYMPTOMS: Nausea but no vomiting. Stomach is achy but no sharp and shooting pains. Some bloating. No fever. 13. MEDICAL HISTORY: No history of hemorrhoids, rectal fissures, or rectal surgery or rectal abscess. Protocols used: [id number] documented in this encounter [facility] 10-06-2023 Telephone encounter Note Patient calls to report constipation as recommended by Dr. Wharton. Nurse triage completed. Protocol recommends see provider within 24 hours. Patient is waiting on X-ray of abdomen results and asking if anything else is recommended until results are back. Reason for Disposition Last bowel movement (BM) > 4 days ago Answer Assessment - Initial Assessment Questions 1. STOOL PATTERN OR FREQUENCY: Patient reports normal bowel movement is daily. Since 09/21/2023. No normal bowel movement. Only passing very small solid pieces from 09/21/2023 to a week ago. The past week has had two bowel movements that were liquid only with a lot of gas. 2. STRAINING: Feels like he is straining but not getting anything out. 3. RECTAL PAIN: Patient reports no pain because nothing besides liquid is coming out. 4. STOOL COMPOSITION: liquid only at this point. 5. BLOOD ON STOOLS: No 6. CHRONIC CONSTIPATION: No problem started with last treatment. 7. CHANGES IN DIET OR HYDRATION: Patient reports no change in diet until recently. He reports he is not able to eat much because he feels full. Patient reports drinking his normal and staying hydrated. 8. MEDICINES: No new medications 9. LAXATIVES: In the past week patient has tried Mag Citrate a bottle x 2 bottles. Miralax a capful x 2. An enema x 1 which patient doesn't feel he was able to administer properly to get any kind of help. 10. ACTIVITY: No decrease in activity level. 11. CAUSE: Patient is not certain but relates it to starting at the same time as the treatments. 12. OTHER SYMPTOMS: Nausea but no vomiting. Stomach is achy but no sharp and shooting pains. Some bloating. No fever. 13. MEDICAL HISTORY: No history of hemorrhoids, rectal fissures, or rectal surgery or rectal abscess. Protocols used: [id number] [facility] 10-06-2023 History of Present illness Narrative Radiology Service Progress Note PATIENT NAME: Adarsh Sorensen DATE OF SERVICE: October 06, 2023 TIME: 2:48 PM PATIENT IDENTITY VERIFICATION COMPLETED USING TWO (2) IDENTIFIERS: Name and Date of confirmed by patient verbally. FALL SCREENING: Has the patient had 2 falls in the last year or 1 fall with injury or currently using an Ambulatory Assistive Device (Walker, Cane, Wheelchair, Crutches, etc.)? No PATIENT GENDER DATA: Male PATIENT RELEVANT IMPLANT DATA REVIEWED: Yes PATIENT PRESENTS WITH AN IMPLANTABLE OR ATTACHED PRESS FEEDER BROOMCORN: No RADIOLOGY DEPARTMENT: General X-ray: Exam(s) Completed: Abdomen X-Ray: Abdomen with Obliques PERIPHERAL IV DATA: Not applicable SIGNED BY: RT Penelope(R) October 06, 2023 2:48 PM documented in this encounter [facility] 09-07-2023 Telephone encounter Note Pt did not read [employer] message Letter sent Ewa Antunez RN BSN [facility] [place] [facility] Work Phone: 09-07-2023 Miscellaneous Notes Pt did not read [employer] message Letter sent Ewa Antunez RN BSN [facility] [place] documented in this encounter [facility] 08-24-2023 History of Present illness Narrative FOLLOW UP PODIATRIC OFFICE VISIT Chief Complaint: This 82 year old who presents for follow up:left hallux total nail avulsion/left hallux osteomyelitis Patient presents to clinic for follow-up left hallux nail avulsion Nail bed is now healed. Patient states the pain and swelling is improving. Continues with augmentin. PAIN EVALUATION No data found in the last 1 encounters. Hemoglobin A1C Date Value Ref Range Status 04/03/2023 4.9 4.3 - 5.6 % Final Comment: [place] [employer] guidelines indicate that patients with HgbA1c in the range 5.7-6.4% are at increased risk for development of diabetes, and intervention by lifestyle modification may be beneficial. HgbA1c greater or equal to 6.5% is considered diagnostic of diabetes. 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 [...] 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 10/07/2015 DDD (degenerative disc disease), lumbar 10/07/2015 Degeneration [...] pt to go see Dr. 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 W/U with event monitor in past was normal per cardio. past medical history skin cancer forehead--unsure which kind Primary insomnia 10/07/2015 Psoriasis Rosacea 11/11/2016 Skin cancer screening 07/09/2023 Seeing [facility] Subclavian artery stenosis, right (HCC) 06/17/2017 US 06/16/2017 50-99% Thrombocytopenia (HCC) 10/07/2015 Waldenstrom's macroglobulinemia (HCC) 10/07/2015 Current Outpatient Medications Medication Sig amoxicillin/potassium clav (AUGMENTIN ORAL) Take by mouth. rituximab/hyaluronidase,human (RITUXAN HYCELA SUBCUTANEOUS) Inject subcutaneously. Doxycycline Hyclate 100 mg EC tablet Take 100 mg by mouth two times a day. rosuvastatin (CRESTOR) 20 mg tablet Take 1 tablet by mouth once daily. metroNIDAZOLE (METROGEL) 1 % Topical Gel Apply 1 application to affected area once daily. Location: face albuterol HFA (PROAIR HFA) 90 mcg/actuation inhaler Inhale 2 Puffs as instructed every 6 hours as needed. omeprazole (PRILOSEC) 10 mg capsule Take 1 capsule by mouth once daily. (Patient not taking: Reported on 08/23/2023) No current facility-administered medications for this visit. ALLERGIES Allergen Reactions Elavil [Amitriptyli* Other: See Comments Tired and depressed feeling PAST SURGICAL HISTORY Procedure Laterality Date 2D ECHO (EXEP) 01/30/2014 EF=60%, LVH, no valve abnormalities COLONOSCOPY 09/21/2014 Dr. Bright, polyp, repeat 3 yrs COLONOSCOPY 02/17/2018 repeat 3 yrs, Dr. Bright COLONOSCOPY W/BIOPSY SINGLE/MULTIPLE 11/22/2007 ENDOSCOPY UPPER-EGD/M24 LAP, REVISION MIKA FUNDOPLASTY 03/20/[address] Layla VORA SURG CHOLECYSTECTOMY W/CHOLANGIOGRAPHY 04/12/2009 PAST SURGICAL HISTORY OF 11/2014 AAA repair PAST SURGICAL HISTORY OF 2015 both eyes cataract removal. PAST SURGICAL HISTORY OF 10/13/2017 right shoulder surgery per [facility] RPR UMBILICAL HRNA 5 YRS/> REDUCIBLE 04/12/2009 STRESS TEST 02/27/2014 WNL Physical Exam: OBJECTIVE: Constitutional: Pt is a well developed 82 year old male who is alert, oriented, cooperative and in no apparent distress. Eyes: Following during examination. No redness or drainage. Respiratory: RR normal and nonlabored. Even breathing. No evidence of distress. Psychology: Patient is engaged during conversation. Normal affect and mood. Does not appear depressed or anxious. NVSI unchanged from previous visit. Dermatological: Left hallux nail bed is now healed No redness. 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 The nail bed is now healed. There is no redness, no drainage and no local signs of infection Reviewed mri. There are findings suggestive of osteomyelitis He is on augmentin. I would have him continue until rx complete. His swelling and pain has improved and his nail bed is now healed. At this time, I would monitor the foot. If nail returns and becomes an issue, could consider removal via chemical matrixectomy. In absence of any redness or acute infection, I feel we can monitor to see how patient does F/u in 5-6 weeks Sofia Boyce DPM documented in this encounter [facility] 08-23-2023 History of Present illness Narrative Follow-Up/Established Patient Visit - [facility] [place] [facility] SERVICE DATE: August 23, 2023 SERVICE TIME: 11:30am Reason for Return Visit: This is Mr. Adarsh Sorensen, a 82 year old year old male who is returning for follow up evaluation of anti-MAG polyneuropathy . This patient was last seen on here on 03/25/23. ASSESSMENT: This is Adarsh Sorensen, a 82 year old male with: 1. Anti-MAG demyelinating polyneuropathy 2. 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 Will continue Rituximab, next dose September then might be able to go a year in between dosing. PLAN: -Rituximab 1000mg in 09/2023 -RTC in 3 months as scheduled -When available, results of the above investigations and possible further recommendations will be communicated to the patient via telephone/MyChart. Patient to call office if not contacted after expected testing turnaround time. History: Symptoms began in August 2022. He developed unsteadiness when walking and had a fall. 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 04/06/23: Rituxan 1000mg dose 1 04/21/23: Rituxan 1000mg dose 2 Interval HPI: No falls. Still balance issues but improved since starting Rituxan. Having issues with toe cellulitis and osteomyelitis. Concerns about needing amputation. Still on Augmentin. Previous Data: Lab Results Component Value Date Hemoglobin A1C 4.9 04/03/2023 Vitamin B12 399 04/03/2023 MPA Result M protein is present. (A) 03/20/2023 MPA [place]/Lambda Ratio 3.44 (H) 02/25/2012 Interpretation (MPA) 03/20/2023 Atypical restricted bands are present in the IgM and kappa regions. Consistent with IgM kappa monoclonal gammopathy. Staff Review (MPA) Reviewed by Dr. Jaren Hagan MD 03/20/2023 K/L Ratio, Serum 7.14 (H) 03/20/2023 Sed Rate, Westergren 26 (H) 07/02/2023 CRP <0.3 07/02/2023 Angiotensin Converting Enzyme 24 03/20/2023 CK 60 11/26/2001 TSH 3.770 05/12/2023 Asialo-GM1 Antibodies 7 03/20/2023 GM1 Antibodies 8 03/20/2023 GM2 Antibodies 8 03/20/2023 GD1a Antibodies 37 03/20/2023 GD1b Antibodies 20 03/20/2023 GQ1b Antibodies 19 03/20/2023 Lab Results Component Value Date Hepatitis B Core Ab, Total Negative 03/25/2023 Hep C Antibody IA Negative 03/25/2023 Hep B Surface Ab, Qual Negative 03/25/2023 VEGF: 35 MAG Ab IgM, FARIDA: >70,000(H) Contactin, Neurofascin: Negative EMG/NCS (03/19/23): -Absent sensory responses in the upper and lower limbs, sparing the superficial radial response. -Low amplitude motor responses in the lower limb, with notably prolonged distal latencies, slowed conduction velocities, evidence of conduction block (52% at the peroneal recording EDB, 36% at the tibial recording AH) with temporal dispersion. -The median motor response is prolonged, but normal in amplitude. The ulnar motor response (recording ADM) is low amplitude and minimally prolonged. -F responses are markedly prolonged in the upper and lower limb. -Absent H reflex which may be normal given the patient's age. -Chronic motor axon loss with a distal predominance in the upper and lower limb, with sparse active denervation in medial gastrocnemius and the paraspinals. 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 CURRENT MEDICATIONS Current Outpatient Medications Medication Sig amoxicillin/potassium clav (AUGMENTIN ORAL) Take by mouth. rituximab/hyaluronidase,human (RITUXAN HYCELA SUBCUTANEOUS) Inject subcutaneously. Doxycycline Hyclate 100 mg EC tablet Take 100 mg by mouth two times a day. rosuvastatin (CRESTOR) 20 mg tablet Take 1 tablet by mouth once daily. metroNIDAZOLE (METROGEL) 1 % Topical Gel Apply 1 application to affected area once daily. Location: face albuterol HFA (PROAIR HFA) 90 mcg/actuation inhaler Inhale 2 Puffs as instructed every 6 hours as needed. omeprazole (PRILOSEC) 10 mg capsule Take 1 capsule by mouth once daily. (Patient not taking: Reported on 08/23/2023) No current facility-administered medications for this visit. All relevant past medical, surgical, social and family history reviewed, confirmed, and updated as necessary. ALLERGIES ALLERGIES Allergen Reactions Elavil [Amitriptyli* Other: See Comments Tired and depressed feeling OBJECTIVE: REVIEW OF SYSTEMS: Review of symptoms including constitutional, eyes, ENT, neck, respiratory, cardiovascular, GI, , musculoskeletal, hematologic, oncologic, endocrine, and psychiatric categories is unchanged except for as noted in HPI. PHYSICAL EXAM: BP 130/66 (BP Site: Right Arm, BP Position: Sitting, BP Cuff Size: Regular Adult) Pulse (!) 51 Ht 182.9 cm (6') Wt 77.4 kg (170 lb 10.2 oz) SpO2 98% BMI 23.14 kg/m General appearance: Awake and alert. No distress. Cooperative with exam. Focused Neurological Exam: No major changes from prior exam except as noted in bold. Motor: 5/5 throughout Deep Tendon Reflexes (DTRs): Right Left Biceps 2+ 2+ Triceps 2+ 2+ Brachioradialis 2+ 2+ Patellar 0 0 Achilles 0 0 To aid with communication, patients (and primary care physicians) can sign up for [employer] (or [employer]), which allows online appointment scheduling, transmission of labs results and chart notes, and secure email communication. To establish either account, visit [email or web address]. This note was partially created using voice recognition software and is inherently subject to errors including those of syntax and sound-alike substitutions which may escape proofreading. In such instances, original meaning may be extrapolated by contextual derivation. Maxwell Wharton DO Staff, [facility] [place] I spent a total of 30 minutes on the date of the service which included preparing to see the patient, [id number] patient care, completing clinical documentation, performing a medically appropriate examination, and counseling and educating the patient/family/caregiver. CC: Jared Robertson [id number] [place] [address] documented in this encounter [facility] 08-09-2023 Telephone encounter Note Called patient to discuss mri results Mri suggests osteomyelitis He was informed of options not limited to continuing antibiotic as prescribed by Dr. Doe vs bone biopsy vs amputation. He is going to continue with antibiotic He does report the steroid has helped with some pain and swelling Sofia Boyce DPM [facility] 08-09-2023 Miscellaneous Notes Called patient to discuss mri results Mri suggests osteomyelitis He was informed of options not limited to continuing antibiotic as prescribed by Dr. Doe vs bone biopsy vs amputation. He is going to continue with antibiotic He does report the steroid has helped with some pain and swelling Sofia Boyce DPM documented in this encounter [facility] 08-07-2023 History of Present illness Narrative Radiology Service Progress Note PATIENT NAME: Adarsh Sorensen DATE OF SERVICE: August 07, 2023 TIME: 2:09 PM PATIENT IDENTITY VERIFICATION COMPLETED USING TWO (2) IDENTIFIERS: Name and Date of confirmed by patient verbally. FALL SCREENING: Has the patient had 2 falls in the last year or 1 fall with injury or currently using an Ambulatory Assistive Device (Walker, Cane, Wheelchair, Crutches, etc.)? No PATIENT GENDER DATA: Male PATIENT RELEVANT IMPLANT DATA REVIEWED: Yes PATIENT PRESENTS WITH AN IMPLANTABLE OR ATTACHED PRESS FEEDER BROOMCORN: No RADIOLOGY DEPARTMENT: MR; Exam(s) Completed: Lower MSK: Forefoot/Midfoot, left PERIPHERAL IV DATA: Not applicable SIGNED BY: RT Iwona(R) August 07, 2023 2:09 PM documented in this encounter [facility] 08-06-2023 History of Present illness Narrative FOLLOW UP PODIATRIC OFFICE VISIT Chief Complaint: This 82 year old who presents for follow up:left great toe swelling Patient presents to clinic for follow-up left great toe swelling. He has completed one month of augmentin. He still has swelling and pain to his left great toe. He recently had his left great toenail removed. The nail bed is now healed. He denies and drainage from the great toe. He has xrays to review Hemoglobin A1C Date Value Ref Range Status 04/03/2023 4.9 4.3 - 5.6 % Final Comment: [place] [employer] guidelines indicate that patients with HgbA1c in the range 5.7-6.4% are at increased risk for development of diabetes, and intervention by lifestyle modification may be beneficial. HgbA1c greater or equal to 6.5% is considered diagnostic of diabetes. 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 [...] 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 10/07/2015 DDD (degenerative disc disease), lumbar 10/07/2015 Degeneration [...] pt to go see Dr. 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 W/U with event monitor in past was normal per cardio. past medical history skin cancer forehead--unsure which kind Primary insomnia 10/07/2015 Psoriasis Rosacea 11/11/2016 Skin cancer screening 07/09/2023 [facility] Subclavian artery stenosis, right (HCC) 06/17/2017 US 06/16/2017 50-99% Thrombocytopenia (HCC) 10/07/2015 Waldenstrom's macroglobulinemia (HCC) 10/07/2015 Current Outpatient Medications Medication Sig methylPREDNISolone (MEDROL, CARIDAD,) 4 mg Dose-Pack Take as directed amoxicillin-clavulanate potassium (AUGMENTIN) 875-125 mg per tablet Take 1 tablet by mouth two times a day for 7 days. FOR 7 DAYS. amoxicillin-clavulanate potassium (AUGMENTIN) 875-125 mg per tablet Take 1 tablet by mouth two times a day. rituximab/hyaluronidase,human (RITUXAN HYCELA SUBCUTANEOUS) Inject subcutaneously. Doxycycline Hyclate 100 mg EC tablet Take 100 mg by mouth two times a day. rosuvastatin (CRESTOR) 20 mg tablet Take 1 tablet by mouth once daily. omeprazole (PRILOSEC) 10 mg capsule Take 1 capsule by mouth once daily. (Patient taking differently: Take 10 mg by mouth once daily. PRN) metroNIDAZOLE (METROGEL) 1 % Topical Gel Apply 1 application to affected area once daily. Location: face albuterol HFA (PROAIR HFA) 90 mcg/actuation inhaler Inhale 2 Puffs as instructed every 6 hours as needed. No current facility-administered medications for this visit. ALLERGIES Allergen Reactions Elavil [Amitriptyli* Other: See Comments Tired and depressed feeling PAST SURGICAL HISTORY Procedure Laterality Date 2D ECHO (EXEP) 01/30/2014 EF=60%, LVH, no valve abnormalities COLONOSCOPY 09/21/2014 Dr. Bright, polyp, repeat 3 yrs COLONOSCOPY 02/17/2018 repeat 3 yrs, Dr. Bright COLONOSCOPY W/BIOPSY SINGLE/MULTIPLE 11/22/2007 ENDOSCOPY UPPER-EGD/M24 LAP, REVISION [place] FUNDOPLASTY 03/20/[address] Rich LAPS SURG CHOLECYSTECTOMY W/CHOLANGIOGRAPHY 04/12/2009 PAST SURGICAL HISTORY OF 11/2014 AAA repair PAST SURGICAL HISTORY OF 2016 both eyes cataract removal. PAST SURGICAL HISTORY OF 10/13/2017 right shoulder surgery per [place] [facility] UMBILICAL HRNA 5 YRS/> REDUCIBLE 04/12/2009 STRESS TEST 02/27/2014 WNL Physical Exam: OBJECTIVE: Constitutional: Pt is a well developed 82 year old male who is alert, oriented, cooperative and in no apparent distress. Eyes: Following during examination. No redness or drainage. Respiratory: RR normal and nonlabored. Even breathing. No evidence of distress. Psychology: Patient is engaged during conversation. Normal affect and mood. Does not appear depressed or anxious. NVSI unchanged from previous visit. Dermatological: Left hallux nail bed is now healed without drainage. Mild redness to left hallux but upon elevation, the redness resolves. Musculoskeletal/Orthopaedic: Patient has pain to palpation of left hallux ipj Left hallux ipj is visibly swollen most notably at the ipj Xrays reviewed of left foot reviewed. + osteopenia noted. No evidence of destructive lesion of hallux. No fracture noted. 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 There is still swelling and residuasl pain of the left hallux ipj despite this patient having the nail removed and being on augmentin x 1 month. The nail nail bed is healed without drainage. I reviewed xrays today and there is no cortical destruction to suggest bone infection on plain film radiograph. Given the continued swelling, pain and slight redness, I am going to place patient back on augmentin x 1 week. In addition, I am going to place him on oral steroid. I would like to obtain mri of the left foot to evaluate for underlying bone infection of left hallux. Mri is necessary to evaluate for underlying abscess or bone infection of left hallux. Will call patient with results. If condition worsens, he is to present to ED. Sofia Boyce DPM AMB ROOMING INTAKE FLOWSHEET DATA Pain Pain Level: 8 Pain Location: Toe Description: Sharp Duration Amount of Time: 1 Duration Units: Months Frequency: Intermittent Intervention/Comfort measure: Reposition, Relaxation, Medication Patient presents with: Left Great Toe - Established Patient, Pain, Infection Marsha Kennedy LPN documented in this encounter [facility] 08-06-2023 History of Present illness Narrative Radiology Service Progress Note PATIENT NAME: Adarsh Sorensen DATE OF SERVICE: August 06, 2023 TIME: 2:56 PM PATIENT IDENTITY VERIFICATION COMPLETED USING TWO (2) IDENTIFIERS: Name and Date of confirmed by patient verbally. FALL SCREENING: Has the patient had 2 falls in the last year or 1 fall with injury or currently using an Ambulatory Assistive Device (Walker, Cane, Wheelchair, Crutches, etc.)? No PATIENT GENDER DATA: Male PATIENT RELEVANT IMPLANT DATA REVIEWED: Not Applicable PATIENT PRESENTS WITH AN IMPLANTABLE OR ATTACHED PRESS FEEDER BROOMCORN: No RADIOLOGY DEPARTMENT: General X-ray: Exam(s) Completed: Lower Extremity X-Ray(s): Toes, Left, GREAT TOE PERIPHERAL IV DATA: Not applicable SIGNED BY: RT Gillian(R) August 06, 2023 2:56 PM documented in this encounter [facility] 08-06-2023 Telephone encounter Note Patient scheduled for in office visit today. He is to come in early for X-rays prior to appointment [facility] 08-06-2023 Miscellaneous Notes Patient scheduled for in office visit today. He is to come in early for X-rays prior to appointment documented in this encounter [facility] 07-29-2023 History of Present illness Narrative History of Present Illness: Mr. Sorensen presents for 6 month follow up of his WM. Interval History 07/29/2023 Mr. Sorensen presents today for follow up and evaluation. He presents with his today. 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 Diarrhea from antibiotic He denies fever, night sweats, weight loss, new lymphadenopathy, SOB, CP, nausea, vomiting, diarrhea, constipation, numbness/tingling, swelling, rash. 01/21/2023: Mr Sorensen presents today for his 6 month follow up evaluation. He is accompanied by his . He is overall feeling fair. He continues with intermittent dry heaves, following with GI. 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 He was having balance issues, drifting to the right when walking. Did PT , still happening. No numbness or weakness. They think this may be an inner ear issue. His PCP has ordered a Brain MRI for the end of the month. He continues with sone fatigue. He denies fevers, night sweats, chest pain or SOB. Denies diarrhea, constipation or new lymphadenopathy. Disease History: Mr. Sorensen is a 82 y.o. 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 He has been monitored on surveillance and his counts have been stable with no lymphadenopathy. He was seen by Dr. Kaden Calderon, at the [facility] which I believe is associated with [facility], as part of his workup in conjunction with seeing Dr. Calderon. He had a bone marrow biopsy on 03/04/2012 which was remarkable for several circumscribed interstitial lymphoid aggregates composed of small, round lymphocytes that were noted in the clot section. Immuno stains showed that aggregates were composed of CD3-positive T-cells predominantly and with fewer admixed [id number] B cells. 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 [...] Social Determinants of Health Financial Resource Strain: Low Risk (09/09/2021) Received from [facility] Overall Financial Resource Strain (CARDIA) Difficulty of Paying Living Expenses: Not hard at all Food Insecurity: No Food Insecurity (09/09/2021) Received from [facility] Hunger Vital Sign Worried About Running Out of Food in the Last Year: Never true Ran Out of Food in the Last Year: Never true Transportation Needs: No Transportation Needs (09/09/2021) Received from [facility] PRAPARE - Transportation Lack of Transportation (Medical): No Lack of Transportation (Non-Medical): No Physical Activity: Insufficiently Active (07/09/2023) Received from [facility] Exercise Vital Sign Days of Exercise per Week: 4 days Minutes of Exercise per Session: 30 min Stress: Stress Concern Present (09/09/2021) Received from [facility] [place] [employer] - Occupational Stress Questionnaire Feeling of Stress : To some extent Social Connections: Unknown (09/09/2021) Received from [facility] Social Connection and Isolation Panel [NHANES] Frequency of Communication with Friends and Family: More than three times a week Frequency of Social Gatherings with Friends and Family: Once a week Active Member of Clubs or Organizations: Yes Attends Club or Organization Meetings: More than 4 times per year Marital Status: Living with partner Housing Stability: Unknown (09/09/2021) Received from [facility] Housing Stability Vital Sign Unable to Pay for Housing in the Last Year: No Unstable Housing in the Last Year: No Family History Problem Relation Age of Onset Other - Specify Father severe allergy to shellfish, colon cancer Diabetes Father Colorectal Cancer Father 72 Neurologic Disease Mother Alzheimers Neurologic Disease Brother MS Cancer- Other Paternal Grandfather testicular cancer BP 152/71 (BP Location: Right arm, BP Position: Sitting) Pulse 58 Temp 97.7 F (36.5 C) (Infrared) Resp 16 Ht 1.829 m (6') Wt 76.6 kg (168 lb 12.8 oz) SpO2 98% BMI 22.89 kg/m Smoking Status Former Physical Examination: ECOG [...] neg Lab Results Component Value Date WBC 7.00 07/29/2023 HGB 13.3 (L) 07/29/2023 HCT 38.4 (L) 07/29/2023 PLATELET 155 07/29/2023 MCV 92.5 07/29/2023 Lab Results Component Value Date SODIUM 137 [...] for his follow up evaluation. He is overall feeling fairly well. He is having balance issues and local PCP is working up with a Brain MRI this month. His proteins are stable.He is not having neuropathic weakness. This does not seem to be related to his WM. Labs reviewed. No signs of diease progression. He will be due to return in 6 months for labs and evaluation. Normoctytic anemia: Added TSH, iron studies , ferritin,B12 and folate. He knows to contact us sooner if he has questions, concerns or issues. Discharge instructions given with verbal understanding voiced. Encouraged to call with any questions or concerns. Scripts given to pt and faxed . He will have them done locally Labs at [facility]. [phone]. phone I have personally seen and examined Mr. Sorensen and discussed with him the plan of care. I have reviewed all of the laboratory data and available test results and discussed the case in detail with the physician assistant manager trainee, Esdras Retana. I agree with the above documented history, physical examination findings and performed the medical decision making. Mr. Sorensen is a 82 yo patient with a history of WM with a low level IgM diagnosed in 2012 who has never required therapy. He was a prior patient of Dr. Jackson who established care in our clinic in March 2016. 1) WM Mr. Sorensen presents today for 6 month follow up. He is doing well okay. No B symptoms. He was started on rituximab in Mar for anti-mg related to his IgM leading to PN (was having balance issues). Has an infected toe and has been on augmentin almost one month. His was recently admitted to the hospital with bilateral DVT and PE and this has been stressful. No lymphadenopathy, no splenomegaly. Labs reviewed, minimal normocytic anemia which is stable, monoclonal protein pending. He has no evidence of progressive disease today by history, exam or labs. He has no indication for treatment outside of the rituximab for the anti-Mg. We have previously discussed that there are several options for treatment when required and can include BTK inhibitor +/- CD20 antibody or BR in the frontline treatment setting. 2) PN Following with neurology. Anti-mg high. Started on rituximab in March. Symptoms stabilized. Repeat every 6 months. He will return in 6 months with labs and exam. I have answered all of his questions. He knows to contact us sooner if he has questions, concerns or issues. -KJM documented in this encounter [facility] 07-29-2023 Instructions Karlene Tamez RN - 07/29/2023 11:00 AM EDT Primary Care Team Dr. Suzette Russell CNP- Certified Nurse Practitioner Esdras Barrett RN - Primary Nurse Karlene Tamez RN-Primary Nurse Sabrina Royal Patient Care Dialysis Social Worker [phone] Contact Numbers: Clinic Phone & Appointment Changes: [phone] Clinic For Medication Refills: If possible please notify us the beginning of the week for any Narcotic refills you may need if not coming in that week for an appointment. We attempt to fill them as soon as they come in but Dr. Aguilar is only in the clinic on . Please call your pharmacy to verify when to car pick up driver. Allow one week for refills, please do not let your prescription run out. We will call them in to the pharmacy of your request, using the one listed in your chart if not specified differently. You will not be contacted about the refill except for any questions or concerns. Please call your pharmacy to verify when to car pick up driver. All Paperwork: Please allow up to 2 [...] orders placed or performed in visit on 07/29/23 LACTATE DEHYDROGENASE Result Value Ref Range LD Total 133 100 - 190 U/L COMPREHENSIVE METABOLIC PANEL Result Value Ref Range Sodium 137 135 - 145 mmol/L Potassium 3.9 3.5 - 5.0 mmol/L Chloride 103 98 - 108 mmol/L BUN 25 7 - 25 mg/dL Creatinine 1.14 0.70 - 1.30 mg/dL Glucose 97 70 - 99 mg/dL Bilirubin Total 1.0 <1.5 mg/dL Albumin 4.0 3.5 - 5.0 g/dL Total Protein 6.9 6.4 - 8.3 g/dL AST 15 10 - 39 U/L ALP 74 32 - 126 U/L Calcium 9.2 8.6 - 10.5 mg/dL CO2 28 21 - 31 mmol/L ALT 10 10 - 52 U/L Bun/Crea Ratio 22 Osmolality (Calculated) 291 278 - 305 mOsm/kg Anion Gap 10 7 - 17 mmol/L eGFR, CKD-EPI, Male 64 >=60 mL/min/1.73m2 CBC AND ELECTRONIC DIFF Result Value Ref Range WBC Count 7.00 3.73 - 10.10 K/uL RBC Count 4.15 (L) 4.38 - 5.83 M/uL Hemoglobin 13.3 (L) 13.4 - 16.8 g/dL Hematocrit 38.4 (L) 39.6 - 48.8 % Mean Cell Volume 92.5 79.0 - 94.5 fL Mean Cell Hgb 32.0 26.1 - 33.3 pg Mean Cell Hgb Conc 34.6 31.9 - 36.5 g/dL RBC Distribution 12.9 10.9 - 14.3 % Platelet Count 155 146 - 337 K/uL Mean Platelet Volume 10.1 8.7 - 12.3 fL DIFF STATUS Electronic Differential Segs + Bands Auto 75.6 % Immature Grans % 0.4 % Lymphocyte % Auto 11.7 % Monocyte % Auto 10.3 % Eosinophil % Auto 1.6 % Basophil % Auto 0.4 % Nucleated RBC 0.0 <=0.2 /100 WBC Segs + Bands,Absolute Auto 5.29 1.57 - 6.19 K/uL Immature Grans Absolute <0.04 <=0.07 K/uL Abs Lymph Auto 0.82 (L) 0.83 - 3.57 K/uL Abs [place] Auto 0.72 0.24 - 0.93 K/uL Abs Eos Auto 0.11 0.00 - 0.48 K/uL Abs Baso Auto <0.04 0.00 - 0.09 K/uL documented in this encounter [facility] 07-09-2023 Instructions Jared Robertson MD - 07/09/2023 2:02 PM EDT Consider getting an RSV vaccine at a local pharmacy in late Sep or early Oct. Consider getting a Tdap for tetanus update at the health dept Please get labs and urine test done on or after 12/24/2023 prior to your next visit. Screening schedule The following prevention plan is recommended: RSV Vaccine(1 - 1-dose 60+ series) Never done DTaP,Tdap,Td Vaccine(2 - Td or Tdap) due on 10/31/2020 Covid-19 Vaccine(2022- season) due on 10/16/2022 Advance Directive Discussion due on 02/15/2023 Behavioral Health Screening Never done WHAT YOU CAN DO TO PREVENT FALLS Many falls can be prevented. By making some changes, you can lower your chances of falling. Four things YOU can do to prevent falls for you* and your caregiver 1. Begin a regular exercise program Exercise is one of the most important ways to lower your chances of falling. It makes you stronger and helps you feel better. Exercises that improve balance and coordination (like Devan Chi) are the most helpful. Lack of exercise leads to weakness and increases your chances of falling. Ask your doctor or health care provider about the best type of exercise program for you. 2. Have your health care provider review your medicines Have your doctor or pharmacist review all the medicines you take, even [id number] medicines. As you get older, the way medicines work in your body can change. Some medicines, or combinations of medicines, can make you sleepy or dizzy and can cause you to fall. 3. Have your vision checked Have your eyes checked by an eye doctor at least once a year. You may be wearing the wrong glasses or have a condition like glaucoma or cataracts that limits your vision. Poor vision can increase your chances of falling. 4. Make your home safer About half of all falls happen at home. To make your home safer: Remove things you can trip over (like papers, books, clothes, and shoes) from stairs and places where you walk. Remove small throw rugs or use double-sided tape to keep the rugs from slipping. Keep items you use often in cabinets you can reach easily without using a step stool. Have grab bars put in next to your toilet and in the tub or shower. Use non-slip mats in the bathtub and on shower floors. Improve the lighting in your home. As you get older, you need brighter lights to see well. Hang light-weight curtains or shades to reduce glare. Have handrails and lights put in on all staircases. Wear shoes both inside and outside the house. Avoid going barefoot or wearing slippers. For more information, contact: Centers for Disease Control and Prevention www.cdc.gov/injury * This information may not apply if you have certain medical conditions. documented in this encounter [facility] 07-09-2023 History of Present illness Narrative Images from the original note were not included. Adarsh Sorensen is a 82 year old male here for a Medicare wellness visit. Medicare Health Risk Assessment General Health Good Exercise: Minutes/Day 30 min Exercise: Days/Week 4 days Alcohol: Daily Use 2-3 times a week Alcohol: Drinks/Day 1 or 2 Alcohol: 6 or more drinks Never Feel off balance Yes, with standing and short lived. Concerns: Teeth/Dentures No Concerns: Sexual function No Troubled by feelings Stressed Frequency: Eating healthy diet Nearly every day ADLs requiring help None of the above Safety precautions in home/vehicle No Smoke, vape, chews tobacco No Difficulty hearing No Difficulty seeing No Current Providers Specialists: I have reviewed specialist-related care of the patient in the medical record. Current care team: Patient Care Team: Jared Robertson MD as PCP - General (Family Medicine) Dr. Wharton (Neuro) Hematology ([facility]) Medical/Family history review Reviewed and updated problem list, medical/surgical/family/social history, medications, and allergies. Opioid use review Opioid Medications (last 90 days) 06/24/2023 00:00 07/01/2023 23:59 Opioid Medications tramadol HCl 50 mg q 8 H PRN left great toe pain ORAL -Rx End Details Outpatient prescription Depression screening Depression Screening PHQ-2 Score 07/09/2023 0 Depression screening tool completed and reviewed. Based on score and interview, patient is not at risk for depression. Screening tool discussed with patient, and I recommended no further intervention at this time. Cognitive screening Score: 4 Cognitive screening reviewed and No further action needed (score 3-5). Functional Observation Was the patient's Timed Up & Go test unsteady or ? 12 seconds? No Advance Care Planning Patient did not wish or was not able to name a surrogate decision maker or provide an advance care plan Measurements BP 112/70 Pulse 70 Resp 16 Ht 6' 0 (1.83m) Wt 175 lb (79.4kg) BMI 23.73 kg/(m^2). Vision Screening: Follows with optometry/ophthalmology Assessment/Plan Medicare annual wellness visit, subsequent (Z00.00) - Counseled on healthy diet and regular exercise - Fall avoidance information provided - Personalized prevention plan provided See HPI Chief Complaint Patient presents with: Medicare Wellness Exam HPI Adarsh Sorensen is a 82 year old male who presents here today for Chronic Medical Conditions. and Medicare Annual Visit. Patient with Hx of AAA, Carotid artery disease, CAD, GERD, funez's, elevated fasting blood sugar, Hyperlipidemia, Waldenstrom's macroglobulinemia, Anemia, thrombocytopenia, allergic Rhinitis, insomnia, chronic bronchitis, IBS, BPH as well as those reviewed and addressed below and in ROS. With standing will get off balance for a short time. Sometimes has vired towards a wall. No incontinence. This has been ongoing for a few years. past medical history, appointments, medications, allergies reviewed. Previous [...] 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 10/07/2015 DDD (degenerative disc disease), lumbar 10/07/2015 Degeneration [...] pt to go see Dr. 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 Layla [facility] SURG CHOLECYSTECTOMY W/CHOLANGIOGRAPHY 04/12/2009 PAST SURGICAL HISTORY OF 11/2014 AAA repair PAST SURGICAL HISTORY OF 2015 both eyes cataract removal. PAST SURGICAL HISTORY OF 10/13/2017 right shoulder surgery per [place] [facility] UMBILICAL HRNA 5 YRS/> REDUCIBLE 04/12/2009 [...] on File Prior to Visit Medication Sig amoxicillin-clavulanate potassium (AUGMENTIN) 875-125 mg per tablet Take 1 tablet by mouth two times a day. amoxicillin-clavulanate potassium (AUGMENTIN) 875-125 mg per tablet Take 1 tablet by mouth two times a day for 7 days. cephALEXin (KEFLEX) 500 mg capsule Take 500 mg by mouth four times daily. (Patient not taking: Reported on 07/06/2023) rituximab/hyaluronidase,human (RITUXAN HYCELA SUBCUTANEOUS) Inject subcutaneously. Doxycycline Hyclate 100 mg EC tablet Take 100 mg by mouth two times a day. rosuvastatin (CRESTOR) 20 mg tablet Take 1 tablet by mouth once daily. aspirin, enteric coated (ASPIRIN, ENTERIC COATED) 81 mg EC tablet Take 81 mg by mouth once daily. (Patient not taking: Reported on 04/14/2023) fluticasone (FLONASE) 50 mcg/actuation nasal spray Use 2 Sprays in each nostril once daily. Rinse mouth after use. (Patient not taking: Reported on 04/14/2023) omeprazole (PRILOSEC) 10 mg capsule Take 1 capsule by mouth once daily. (Patient taking differently: Take 10 mg by mouth once daily. PRN) metroNIDAZOLE (METROGEL) 1 % Topical Gel Apply [...] Types: Cigarettes Quit date: 02/15/1974 Years since quittin.4 Smokeless tobacco: Never Tobacco comments: NO EXPOSURE [...] palpitations GI: No nausea, vomiting, or increased or changes in his occasional diarrhea, No heartburn or reflux symptoms, and no blood : No history of dysuria, frequency or blood. Up to 2-3 times a night but no hesitancy and strength is good. MUSCULOSKELETAL: Negative for new pains other then his arthritis in his back and the issue with his right great toe SKIN: Negative for lesions, rash, and itching PSYCH: Negative for sleep disturbance, mood disorder and recent psychosocial stressors HEMATOLOGY/LYMPHOLOGY: Negative for prolonged bleeding, bruising easily or swollen nodes ENDOCRINE: Negative for cold or heat intolerance, polyuria, polydipsia and goiter NEURO: No history of headaches, syncope, paralysis, seizures or tremors EXAM: BP 112/70 (BP Site: Left Arm, BP Position: Sitting, BP Cuff Size: Regular Adult) Pulse 70 Resp 16 Ht 182.9 cm (6') Wt 79.4 kg (175 lb) BMI 23.73 kg/m Last 5 Encounter Wt Readings: Date: Wt: 07/09/2023 79.4 kg (175 lb) 07/08/2023 79.4 kg (175 lb) 07/02/2023 79.4 kg (175 lb) 06/29/2023 79.4 kg (175 lb) 06/28/2023 79.4 kg (175 lb) General Appearance: Well appearing, alert, in no acute distress, well-hydrated, well nourished.. Head: Normocephalic, no masses, lesions, tenderness or abnormalities. Eyes: Anicteric sclera. Pupils are equally round and reactive to light. Extraocular movements are intact. . Ears: External ears, TM's normal, canals clear. Nose/Sinuses: Nares normal, septum [...] light touch and crainal nerves 2-12 intact.. Health Maintenance List RSV Vaccine(1 - 1-dose 60+ series) Never done DTaP,Tdap,Td Vaccine(2 - Td or Tdap) due on 10/31/2020 Covid-19 Vaccine(2022- season) due on 10/16/2022 Advance Directive Discussion due on 02/15/2023 Behavioral Health Screening Never done LDL Cholesterol due on 04/03/2024 Diabetes Screening due on 04/03/2026 Influenza Vaccine Completed Shingrix Vaccine Completed Pneumococcal Vaccine: 65+ Completed HPV Vaccine Aged Out Colorectal Cancer Screening Discontinued Data reviewed Latest Ref Rng 04/03/2023 05/12/2023 06/24/2023 07/02/2023 WBC 3.70 - 11.00 k/uL 5.83 7.85 6.50 RBC 4.20 - 6.00 m/uL 4.22 4.45 4.16 (L) Hemoglobin 13.0 - 17.0 g/dL 13.6 14.4 13.4 Hematocrit 39.0 - 51.0 % 40.7 43.2 40.6 MCV 80.0 - 100.0 fL 96.4 97.1 97.6 MCH 26.0 - 34.0 pg 32.2 32.4 32.2 MCHC 30.5 - 36.0 g/dL 33.4 33.3 33.0 RDW-CV 11.5 - 15.0 % 12.8 12.9 12.8 Platelet Count 150 - 400 k/uL 153 183 216 MPV 9.0 - 12.7 fL 10.4 10.8 10.8 Neut% % 69.0 70.2 73.2 Abs Neut (ANC) 1.45 - 7.50 k/uL 4.02 5.52 4.76 Lymph% % 19.2 14.4 14.6 Abs Lymph 1.00 - 4.00 k/uL 1.12 1.13 0.95 (L) [place]% % 7.7 12.0 9.1 Abs [place] <0.87 k/uL 0.45 0.94 (H) 0.59 Eosin% % 3.4 2.7 2.0 Abs Eosin <0.46 k/uL 0.20 0.21 0.13 Baso% % 0.5 0.3 0.6 Abs Baso <0.11 k/uL 0.03 <0.03 0.04 Immature Gran % % 0.2 0.4 0.5 IMMATURE GRANS (ABS) <0.10 k/uL <0.03 0.03 0.03 NRBC /100 WBC 0.0 0.0 0.0 Absolute nRBC <0.01 k/uL <0.01 <0.01 <0.01 DTYPE Auto Auto Auto Color Yellow Dark Yellow ! Dark Yellow ! Clarity Clear Clear Clear Glucose, Urine Negative Negative Negative Bilirubin, Urine Negative 1+ ! Negative Ketones, Urine Negative Trace ! Negative Specific [place], Ur 1.005 - 1.030 1.027 1.033 (H) Hemoglobin/Blood,Ur Negative Negative Negative pH, Urine <8.5 5.5 5.5 Protein, Urine Negative Negative Trace ! Urobilinogen 0.2-1.0 EU/dL 0.2 EU/dL 1.0 EU/dL Nitrites Negative Negative Negative Leukest Negative Negative Trace ! WBC, Urine 0-5 /HPF 0-5 /HPF 0-5 /HPF RBC, Urine 0-2 /HPF 3-5 /HPF ! 0-2 /HPF Bacteria Negative /HPF Negative Negative Epithelial Cells /HPF None Seen None Seen Hyaline Cast 0 /LPF 0 /LPF 0 /LPF Protein, Total 6.3 - 8.0 g/dL 6.4 Albumin 3.9 - 4.9 g/dL 3.8 (L) Calcium 8.5 - 10.2 mg/dL 9.0 Bilirubin, Total 0.2 - 1.3 mg/dL 1.0 Alkaline Phosphatase 38 - 113 U/L 83 AST 14 - 40 U/L 15 ALT 10 - 54 U/L 9 (L) Glucose 74 - 99 mg/dL 112 (H) BUN 9 - 24 mg/dL 22 Creatinine 0.73 - 1.22 mg/dL 1.21 Sodium 136 - 144 mmol/L 141 Potassium 3.7 - 5.1 mmol/L 3.6 (L) 4.0 Chloride 97 - 105 mmol/L 104 CO2 22 - 30 mmol/L 28 Anion Gap 9 - 18 mmol/L 9 eGFR >=60 mL/min/1.73m 60 Total Cholesterol, Nonfasting <200 mg/dL 184 Triglycerides, Nonfasting <150 mg/dL 73 HDL Cholesterol, Nonfasting >39 mg/dL 59 LDL Cholesterol, Nonfasting <100 mg/dL 110 (H) Non HDL Cholesterol, Nonfasting <130 mg/dL 125 VLDL Cholesterol, Nonfasting <30 mg/dL 15 Total Chol/HDL Ratio, Nonfasting <5.10 mg/dL 3.12 LDL/HDL Ratio, Nonfasting <2.54 mg/dL 1.86 Hemoglobin A1C 4.3 - 5.6 % 4.9 Estimated Average Glucose mg/dL 94 Vitamin B12 232 - 1,245 pg/mL 399 Magnesium 1.7 - 2.3 mg/dL 1.9 TSH 0.270 - 4.200 mIU/L 3.770 A/P ASSESSMENT/PLAN: 1. Medicare annual wellness visit, subsequent - ICD9: V70.0, ICD10: Z00.00 (primary diagnosis) - Counseled on healthy diet and regular exercise - Follow up for annual exam in one year - advised on RSV and Tdap 2. Mixed hyperlipidemia - ICD9: 272.2, ICD10: E78.2 - Uncontrolled, and patient just got back on Crestor. - Continue current medications - Counseled on healthy diet and regular exercise 3. GERD without esophagitis - ICD9: 530.81, ICD10: K21.9 - Continue treatment with Prilosec 10 mg every day prn 4. Bilateral carotid artery stenosis - ICD9: 433.10, 433.30, ICD10: I65.23 - management per Vascular 5. Abdominal aortic aneurysm (AAA) without rupture, unspecified part (HCC) - ICD9: 441.4, ICD10: I71.40 - stable will repeat US AAA in a year. 6. Subclavian artery stenosis, right (HCC) - ICD9: 447.1, ICD10: I77.1 - managed per vascular and no symptoms. 7. Malignant lymphoplasmacytic lymphoma (HCC) - ICD9: 200.80, ICD10: C83.00 - on meds per oncology. 8. Waldenstrom's macroglobulinemia (HCC) - ICD9: 273.3, ICD10: C88.0 - as per #7 9. Anemia, unspecified type - ICD9: 285.9, ICD10: D64.9 - followed by Heme/Onc. 10. Thrombocytopenia (HCC) - ICD9: 287.5, ICD10: D69.6 - most recent lab was normal. 11. 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 Elevated fasting blood sugar - ICD9: 790.21, ICD10: R73.01 - controlled with life style. 13. Chronic bronchitis, unspecified chronic bronchitis type (HCC) - ICD9: 491.9, ICD10: J42 - clinically stable 14. Primary insomnia - ICD9: 307.42, ICD10: F51.01 - stable not needing meds. 15. Benign non-nodular prostatic hyperplasia without lower urinary tract symptoms - ICD9: 600.90, ICD10: N40.0 - stable will monitor for symptoms 16. Balance problem - ICD9: 781.99, ICD10: R26.89 - stable will monitor 17. Palpitations - ICD9: 785.1, ICD10: R00.2 - clinically stable will monitored. F/u 6 months routine check BMP, Lipid, A1c prior. I spent a total of 40 minutes on the date of the service which included preparing to see the patient, [id number] patient care, completing clinical documentation, performing a medically appropriate examination, counseling and educating the patient/family/caregiver and ordering medications, tests, or procedures. Jared Robertson MD documented in this encounter [facility] 07-09-2023 History of Present illness Narrative FOLLOW UP PODIATRIC OFFICE VISIT Chief Complaint: This 82 year old who presents for follow up:left hallux cellulitis Patient presents to clinic for follow-up cellulitis of left hallux Is currently on augmentin and was prescribed an additional [address] Doe from [place]. Continues to complain of pain. Is here to proceed with total nail avulsion, left hallux PAIN EVALUATION 07/09/2023 1058 Pain Level: 9 Pain Location: Toe Description: Throbbing Duration Units: Weeks Frequency: Intermittent Intervention/Comfort measure: Reposition Hemoglobin A1C Date Value Ref Range Status 04/03/2023 4.9 4.3 - 5.6 % Final Comment: [place] [employer] guidelines indicate that patients with HgbA1c in the range 5.7-6.4% are at increased risk for development of diabetes, and intervention by lifestyle modification may be beneficial. HgbA1c greater or equal to 6.5% is considered diagnostic of diabetes. PCP: Jared Robertson MD PAST MEDICAL HISTORY Diagnosis Date AAA (abdominal [...] 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 10/07/2015 DDD (degenerative disc disease), lumbar 10/07/2015 Degeneration [...] pt to go see Dr. 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 W/U with event monitor in past was normal per cardio. past medical history skin cancer forehead--unsure which kind Primary insomnia 10/07/2015 Psoriasis Rosacea 11/11/2016 Subclavian artery stenosis, right (HCC) 06/17/2017 US 06/16/2017 50-99% Thrombocytopenia (HCC) 10/07/2015 Waldenstrom's macroglobulinemia ([facility]) 10/07/2015 Current Outpatient Medications Medication Sig amoxicillin-clavulanate potassium (AUGMENTIN) 875-125 mg per tablet Take 1 tablet by mouth two times a day. amoxicillin-clavulanate potassium (AUGMENTIN) 875-125 mg per tablet Take 1 tablet by mouth two times a day for 7 days. rituximab/hyaluronidase,human (RITUXAN HYCELA SUBCUTANEOUS) Inject subcutaneously. Doxycycline Hyclate 100 mg EC tablet Take 100 mg by mouth two times a day. rosuvastatin (CRESTOR) 20 mg tablet Take 1 tablet by mouth once daily. omeprazole (PRILOSEC) 10 mg capsule Take 1 capsule by mouth once daily. (Patient taking differently: Take 10 mg by mouth once daily. PRN) metroNIDAZOLE (METROGEL) 1 % Topical Gel Apply 1 application to affected area once daily. Location: face albuterol HFA (PROAIR HFA) 90 mcg/actuation inhaler Inhale 2 Puffs as instructed every 6 hours as needed. cephALEXin (KEFLEX) 500 mg capsule Take 500 mg by mouth four times daily. (Patient not taking: Reported on 07/06/2023) aspirin, enteric coated (ASPIRIN, ENTERIC COATED) 81 mg EC tablet Take 81 mg by mouth once daily. (Patient not taking: Reported on 04/14/2023) fluticasone (FLONASE) 50 mcg/actuation nasal spray Use 2 Sprays in each nostril once daily. Rinse mouth after use. (Patient not taking: Reported on 04/14/2023) No current facility-administered medications for this visit. ALLERGIES Allergen Reactions Elavil [Amitriptyli* Other: See Comments Tired and depressed feeling PAST SURGICAL HISTORY Procedure Laterality Date 2D ECHO (EXEP) 01/30/2014 EF=60%, LVH, no valve abnormalities COLONOSCOPY 09/21/2014 Dr. Bright, polyp, repeat 3 yrs COLONOSCOPY 02/17/2018 repeat 3 yrs, Dr. Bright COLONOSCOPY W/BIOPSY SINGLE/MULTIPLE 11/22/2007 ENDOSCOPY UPPER-EGD/M24 LAP, REVISION MIKA FUNDOPLASTY 03/20/[address] Rich LAPS SURG CHOLECYSTECTOMY W/CHOLANGIOGRAPHY 04/12/2009 PAST SURGICAL HISTORY OF 11/2014 AAA repair PAST SURGICAL HISTORY OF 2016 both eyes cataract removal. PAST SURGICAL HISTORY OF 10/13/2017 right shoulder surgery per [facility] UMBILICAL HRNA 5 YRS/> REDUCIBLE 04/12/2009 STRESS TEST 02/27/2014 WNL Physical Exam: OBJECTIVE: Constitutional: Pt is a well developed 82 year old male who is alert, oriented, cooperative and in no apparent distress. Eyes: Following during examination. No redness or drainage. Respiratory: RR normal and nonlabored. Even breathing. No evidence of distress. Psychology: Patient is engaged during conversation. Normal affect and mood. Does not appear depressed or anxious. Vascular: DP and PT pulses are palpable to left foot. CFT is less than 5 seconds. Skin temperature is warm to warm. + swelling is present to left halluxipj Dermatological: Swelling is noted to proximal aspect of left hallux ipj. 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 Does have + swelling and + pain and concern for infected proximal nail fold. Given the appearance of left hallux, I do feel that total nail avulsion is the next best option for patient to try and attempt to eliminate this infection. I reviewed this case with ID and I also reviewed with oncology from the [facility] in [place]. Patient is cleared for removal of toenail from an oncology perspective. I discussed risks of this procedure not limited to infection, pain, swelling, bleeding, recurrent nail deformity, loss of toe. Patient understands why this procedure is being performed. This patient consents to proceed with total nail avulsion. Discussed risks of toenail procedure not limited to infection, pain, swelling, bleeding, painful scarring, recurrence, need for revised procedure. Patient consented to proceed. Patient was properly identified by name and procedure. The left hallux was then injected with 3 cc of 1% lidocaine plain. The toe was then prepped and draped in the usual aseptic technique. A digital tournicot was applied to the toe. The entire nail was then freed and removed. Careful inspection was performed to assure no remaining spicule present. Avulsion was performed. Wound culture performed of proximal nail fold. All nonviable tissue was debrided. Some bleeding of distal nail bed was noted and this was treated with silver nitrate. Sterile dressing was then applied consisting of amerigel, guaze, sahil and coban. Tournicot was removed and hyperemic response was noted. Patient tolerated well. Patient will f/u in 3 weeks. ([facility] provider is out of the office in 2 weeks) Discussed past xray. Optiosn include getting mri vs repeating xray in 2 weeks. I will start with repeat xrays in 2 weeks Sofia Boyce DPM UNIVERSAL PROTOCOL / SAFETY CHECKLIST Procedure to be Performed: Total nail avulsion, L hallux Sign In: A Moment of CARE was completed. Personnel directly involved with the procedure wore the appropriate PPE (Personal Protective Equipment). No special equipment needed. Patient/Surrogate Stated/Verified: PATIENT VERIFIED(optional for EMERGENT procedures): Patient name, Date of , Relevant allergies, and The intended procedure Time Out Communication: Intended patient and procedure match the source documents. Consent documented and matches the intended procedure. No relevant labs, photos, and/or imaging studies were applicable for review. Correct side/site marked and visible. Medications required for procedure verified. No fire risk assessment and interventions applicable. No implant(s) inserted. Sign Out: SIGN OUT (optional for EMERGENT procedures): All specimen containers correctly labeled. All instruments, equipment, possible retained foreign bodies accounted for. Post-procedure follow-up management communicated and Plan of Care Visit completed when applicable. Susie Dow RN AMB ROOMING INTAKE FLOWSHEET DATA Pain Pain Level: 9 Pain Location: Toe Description: Throbbing Duration Units: Weeks Frequency: Intermittent Intervention/Comfort measure: Reposition Patient is here to have avulsion of toenail of L hallux. documented in this encounter [facility] 07-09-2023 Instructions Sakina Wise RN - 07/09/2023 11:00 AM EDT Post-Op Nail Instructions Minimize activity until the anesthesia wears off (about 2-8 hours). Increase activity to tolerance Remove bandage tomorrow Soak affected toe/foot in epsom salts for 15-20 minutes twice daily After soaking, apply antibiotic ointment (OTC Neosporin) to affected toe and re bandage OTC Ibuprofen if having pain, provided you have no allergies or intolerance to NSAIDS Mild drainage, redness, and blood is expected, but if you expeirence severe pain, increase in drainage, swelling, or red streaking please contact our office immediately Feel free to contact office as well if you have any questions/concerns [phone], ask for Podiatry Nurse documented in this encounter [facility] 07-08-2023 Telephone encounter Note Patient appointment scheduled for 07/09/23 at 11:15am [facility] 07-08-2023 Miscellaneous Notes Patient appointment scheduled for 07/09/23 at 11:15am Called patient today and spoke with him. No change in appearance of right great toe Discussed removal of toenail. I discussed risks of removal of toenail not only with patient but also with oncology at the [facility] in [place]. Oncology is ok with removal of the toenail I would make plans to remove the toenail if the toe is not getting any better. I would like patient to see ID because of his complex medical issues. Dr. Doe is willing to see patient and would plan on seeing him tomorrow or Wednesday. I will take the nail off following appointment with ID. Discussed getting mri. Given the concern for possible infection, would recommend mri. Mri will be ordered Sofia Boyce DPM documented in this encounter [facility] 07-08-2023 History of Present illness Narrative INFECTIOUS DISEASE CONSULT NOTE Date: July 08, 2023 Patient Name: Adarsh Sorensen Consultation requested by Dr. Boyce for an opinion regarding infected toe. My final recommendations will be communicated back to the requesting physician by way of shared Medical record HISTORY OF PRESENT ILLNESS 82 ym hx Waldenstrom globulinemia + recent autoimmune neuropathy Rx w Ritux ( last dose 03/2023) Hang nail 2 m/a Swelling DP of hallucis sinistri Pain and cortical erosion on plain film Some response to Augmentin Cxs Staph lugdunensis Inflammatory markers unreliable in immunomodulated meds patient Vasculopath w aortoiliac bypass C/o pain Location L great toe Onset 2 mo Entry point- open wound hanging toe nail tip DP Associated w fluctuant swelling Throbbing nocturnal element PAST MEDICAL HISTORY Diagnosis Date AAA (abdominal [...] 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 10/07/2015 DDD (degenerative disc disease), lumbar 10/07/2015 Degeneration [...] pt to go see Dr. 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 Layla VORA SURG [...] doing ok since e;ectroshock Alzheimer's Disease Mother No heritable diseases that predispose to infection in family. Social History Tobacco Use Smoking status: Former Packs/day: 1.00 Years: 8.00 Additional pack years: 0.00 Total pack years: 8.00 Types: Cigarettes Quit date: 02/15/1974 Years since quittin.4 Smokeless tobacco: Never Tobacco comments: NO EXPOSURE TO 2ND HAND SMOKE Vaping Use Vaping Use: Never used Substance Use Topics Alcohol use: Yes Comment: occasionally Drug use: No MEDICATIONS Medications reviewed. Current antibiotics include: Augmentin No current facility-administered medications for this visit. Current Outpatient Medications Medication Sig amoxicillin-clavulanate potassium (AUGMENTIN) 875-125 mg per tablet Take 1 tablet by mouth two times a day. amoxicillin-clavulanate potassium (AUGMENTIN) 875-125 mg per tablet Take 1 tablet by mouth two times a day for 7 days. cephALEXin (KEFLEX) 500 mg capsule Take 500 mg by mouth four times daily. (Patient not taking: Reported on 07/06/2023) rituximab/hyaluronidase,human (RITUXAN HYCELA SUBCUTANEOUS) Inject subcutaneously. Doxycycline Hyclate 100 mg EC tablet Take 100 mg by mouth two times a day. rosuvastatin (CRESTOR) 20 mg tablet Take 1 tablet by mouth once daily. aspirin, enteric coated (ASPIRIN, ENTERIC COATED) 81 mg EC tablet Take 81 mg by mouth once daily. (Patient not taking: Reported on 04/14/2023) fluticasone (FLONASE) 50 mcg/actuation nasal spray Use 2 Sprays in each nostril once daily. Rinse mouth after use. (Patient not taking: Reported on 04/14/2023) omeprazole (PRILOSEC) 10 mg capsule Take 1 capsule by mouth once daily. (Patient taking differently: Take 10 mg by mouth once daily. PRN) metroNIDAZOLE (METROGEL) 1 % Topical Gel Apply 1 application to affected area once daily. Location: face albuterol HFA (PROAIR HFA) 90 mcg/actuation inhaler Inhale 2 Puffs as instructed every 6 hours as needed. No current facility-administered medications for this visit. ALLERGIES Allergen Reactions Elavil [Amitriptyli* Other: See Comments Tired and depressed feeling REVIEW OF SYSTEMS: A complete ROS was performed and all others are negative Examination: BP 131/78 Pulse 76 Temp 36.4 C (97.6 F) (Temporal) Resp 18 Wt 79.4 kg (175 lb) SpO2 99% BMI 23.73 kg/m PHYSICAL EXAMINATION: GEN:NAD PSYCHE:AAO X 3 HEENT:MMM NECK:supple no LAD LUNGS:CTA HEART:RRR ABD:soft,BS present EXT: tender swollen nailbed DP hallucis sinistri SKIN:no rash Laboratory data: reviewed Microbiology data: SUPERVISOR FUSING ROOM lugdunensis Imaging data: Imaging studies personally reviewed and discussed with team. ASSESSMENT: 82 ym hx Waldenstrom globulinemia + recent autoimmune neuropathy Rx w Ritux ( last dose 03/2023) Hang nail 2 m/a Swelling DP of hallucis sinistri Pain and cortical erosion on plain film Some response to Augmentin Cxs Staph lugdunensis Inflammatory markers unreliable in immunomodulated meds patient Vasculopath w aortoiliac bypass RECOMMENDATIONS: Agree w removal of nail Remain on Augmentin Will Rx 2-3 mo D/w Dr austen Deo MD 07/08/2023 3:43 PM documented in this encounter [facility] 07-07-2023 Telephone encounter Note Called patient today and spoke with him. No change in appearance of right great toe Discussed removal of toenail. I discussed risks of removal of toenail not only with patient but also with oncology at the [facility] in [place]. Oncology is ok with removal of the toenail I would make plans to remove the toenail if the toe is not getting any better. I would like patient to see ID because of his complex medical issues. Dr. Doe is willing to see patient and would plan on seeing him tomorrow or Wednesday. I will take the nail off following appointment with ID. Discussed getting mri. Given the concern for possible infection, would recommend mri. Mri will be ordered Sofia Boyce DPM [facility] 07-06-2023 History of Present illness Narrative Radiology Service Progress Note PATIENT NAME: Adarsh Sorensen DATE OF SERVICE: July 06, 2023 TIME: 12:44 PM PATIENT IDENTITY VERIFICATION COMPLETED USING TWO (2) IDENTIFIERS: Name and Date of confirmed by patient verbally. FALL SCREENING: Has the patient had 2 falls in the last year or 1 fall with injury or currently using an Ambulatory Assistive Device (Walker, Cane, Wheelchair, Crutches, etc.)? No PATIENT GENDER DATA: Male PATIENT RELEVANT IMPLANT DATA REVIEWED: Yes PATIENT PRESENTS WITH AN IMPLANTABLE OR ATTACHED PRESS FEEDER BROOMCORN: No RADIOLOGY DEPARTMENT: General X-ray: Exam(s) Completed: Lower Extremity X-Ray(s): Toes, Left Great toe PERIPHERAL IV DATA: Not applicable SIGNED BY: RT Kristian(R) July 06, 2023 12:44 PM documented in this encounter [facility] 07-06-2023 History of Present illness Narrative Consultation requested by Dr. Robertson for an opinion regarding cellulitis. My final recommendations will be communicated back to the requesting physician by way of shared Medical record or letter to requesting physician via [place] mail. Initial Podiatric Office Visit: Chief Complaint: This 82 year old male who presents with chief complaint:pain in left great toe HPI Patient presents to clinic for evaluation of left hallux He has pain and swelling in left hallux that has been going on for about one month Patient states the pain and swelling started after he cut his toenail about one month ago. He states he had a hang nail and he cut himself. He did this on a and by Wednesday, there was pain. He went to [facility] and was placed on keflex. The keflex did not help. He saw his pcp who prescribed augmentin twice daily. He is on his 2nd refill. The medication is helping Patient does have lymphoma PAIN EVALUATION 07/06/2023 1201 Pain Level: 8 Pain Location: Toe Description: Sore Duration Amount of Time: 3 Duration Units: Weeks Frequency: Intermittent Intervention/Comfort measure: Reposition;Relaxation Hemoglobin A1C (%) Date Value 04/03/2023 4.9 10/03/2022 4.9 04/06/2022 4.9 09/23/2021 5.0 03/18/2021 4.7 09/02/2020 4.8 02/22/2020 4.8 08/03/2019 4.6 11/24/2018 4.7 PCP: Jared Robertson MD PAST MEDICAL HISTORY Diagnosis Date AAA (abdominal [...] 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 10/07/2015 DDD (degenerative disc disease), lumbar 10/07/2015 Degeneration [...] pt to go see Dr. 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 W/U with event monitor in past was normal per cardio. past medical history skin cancer forehead--unsure which kind Primary insomnia 10/07/2015 Psoriasis Rosacea 11/11/2016 Subclavian artery stenosis, right (HCC) 06/17/2017 US 06/16/2017 50-99% Thrombocytopenia (HCC) 10/07/2015 Waldenstrom's macroglobulinemia (HCC) 10/07/2015 Current Outpatient Medications Medication Sig amoxicillin-clavulanate potassium (AUGMENTIN) 875-125 mg per tablet Take 1 tablet by mouth two times a day for 7 days. rituximab/hyaluronidase,human (RITUXAN HYCELA SUBCUTANEOUS) Inject subcutaneously. rosuvastatin (CRESTOR) 20 mg tablet Take 1 tablet by mouth once daily. omeprazole (PRILOSEC) 10 mg capsule Take 1 capsule by mouth once daily. (Patient taking differently: Take 10 mg by mouth once daily. PRN) metroNIDAZOLE (METROGEL) 1 % Topical Gel Apply 1 application to affected area once daily. Location: face albuterol HFA (PROAIR HFA) 90 mcg/actuation inhaler Inhale 2 Puffs as instructed every 6 hours as needed. cephALEXin (KEFLEX) 500 mg capsule Take 500 mg by mouth four times daily. (Patient not taking: Reported on 07/06/2023) Doxycycline Hyclate 100 mg EC tablet Take 100 mg by mouth two times a day. aspirin, enteric coated (ASPIRIN, ENTERIC COATED) 81 mg EC tablet Take 81 mg by mouth once daily. (Patient not taking: Reported on 04/14/2023) fluticasone (FLONASE) 50 mcg/actuation nasal spray Use 2 Sprays in each nostril once daily. Rinse mouth after use. (Patient not taking: Reported on 04/14/2023) No current facility-administered medications for this visit. ALLERGIES Allergen Reactions Elavil [Amitriptyli* Other: See Comments Tired and depressed feeling PAST SURGICAL HISTORY Procedure Laterality Date 2D ECHO (EXEP) 01/30/2014 EF=60%, LVH, no valve abnormalities COLONOSCOPY 09/21/2014 Dr. Bright, polyp, repeat 3 yrs COLONOSCOPY 02/17/2018 repeat 3 yrs, Dr. Bright COLONOSCOPY W/BIOPSY SINGLE/MULTIPLE 11/22/2007 ENDOSCOPY UPPER-EGD/M24 LAP, REVISION MIKA FUNDOPLASTY 03/20/[address] Layla VORA SURG [...] Types: Cigarettes Quit date: 02/15/1974 Years since quittin.4 Smokeless tobacco: Never Tobacco comments: NO EXPOSURE TO 2ND HAND SMOKE Vaping Use Vaping Use: Never used Substance Use Topics Alcohol use: Yes Comment: occasionally Drug use: No REVIEW OF SYSTEMS GENERAL: Negative for Malaise, significant weight loss, fever RESPIRATORY: Negative for cough, wheezing and shortness of breath CARDIOVASCULAR: Negative for chest pain, leg swelling and palpitations GI: Negative for abdominal discomfort, blood in stools or black stools and change in bowel habits : Negative for dysuria, frequency and incontinence MUSCULOSKELETAL: Negative for joint pain or swelling, back pain, and muscle pain. SKIN: Negative for lesions, rash, and itching. HEMATOLOGY/LYMPHOLOGY Negative for prolonged bleeding, bruising easily, and swollen nodes. ENDOCRINE: Negative for cold or heat intolerance, polyuria, polydipsia and goiter. NEURO: negative Physical Exam: Constitutional: Pt is a well developed 82 year old male who is alert, oriented and cooperative Eyes: Following during examination. No redness or drainage. Respiratory: RR normal and nonlabored. Even breathing. No evidence of distress or shortness of breath. Psychology: Patient is engaged during conversation. Normal affect and mood. Does not appear depressed or anxious during encounter. Vascular: Dorsalis pedis and posterior tibial pulses palpable as b/l Capillary Fill time < 5 seconds to digits 1-5 b/l Skin temperature warm to warm proximal to distal b/l Hair growth present to digits Neurological: intact light touch/epicritic sensation b/l intact protective sensation no significant neurological deficits Dermatological: There is swelling of left hallux proximal nail fold. There is pain to palpation of left hallux proximal nail fold Musculoskeletal/Orthopaedic: Patient has pain to palpation of left hallux proximal nail fold Radiographs: past xrays do not show any acute pathology. New xrays ordered ASSESSMENT: (L03.032, L02.612) Cellulitis and abscess of toe of left foot (primary encounter diagnosis) PLAN: 1. History and physical examination performed. 2. XR reviewed with patient and interpreted today 3. Discussed the appearance of left hallux. There is swelling of left hallux ipj. 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 He states this all started from an ingrowing toenail. He has been on keflex followed by two rounds of augmentin. His past blood work, most notably, esr was elevated at 41 and trending down to 26. I discussed removal of the toenail. He states the toe is improving with augmentin. 4. I am going to culture the toe and will see what grows and can tailor antibiotics towards culture. 5. I will repeat xrays today. If xrays are concerning for bone infection, may warrant total nail avulsion. 6. I offered total nail avulsion today however patient states the toe is improving. Pending xrays and/or culture or failed improvement, will bring patient back this week for toenail avulsion. 7. Will call with results. Sofia Boyce DPM Podiatry [address] [facility] [id number] Dept: [phone] Dept AMB ROOMING INTAKE FLOWSHEET DATA Pain Pain Level: 8 Pain Location: Toe Description: Sore Duration Amount of Time: 3 Duration Units: Weeks Frequency: Intermittent Intervention/Comfort measure: Reposition, Relaxation Patient presents with: Left Great Toe - New Patient, Cellulitis Patient referred by PCP's office for cellulitis of L hallux that has been ongoing since the beginning of June. documented in this encounter [facility] 07-02-2023 History of Present illness Narrative Chief Complaint Patient presents with: Follow Up HPI Adarsh Sorensen is a 82 year old male who presents here today for follow up on left foot. How is patient feeling today? less tender and decreased erythema and swelling. No fevers or chills When he puts hi foot up in bed it almost looks normal. Office visit - 06/24/2023 Adarsh Sorensen is a 82 year old male who presents here today for patient was seen in [place] ER Wednesday afternoon with c/o pain in th left great toe with increasing redness and pain. No fevers or chill. Patient was placed on keflex 500 mg twice a day for 10 days. No labs or imaging was done. No known trauma. Patient says the redness has improved. The pain is not any better. No fevers or chills. Patient has not seen any pus but the ball of the foot feels softer. He has not noted any warmth to the area. Past medical history, appointments, medications, allergies reviewed. [...] 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 10/07/2015 DDD (degenerative disc disease), lumbar 10/07/2015 Degeneration [...] pt to go see Dr. 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 Layla VORA SURG [...] on File Prior to Visit Medication Sig cephALEXin (KEFLEX) 500 mg capsule Take 500 mg by mouth four times daily. rituximab/hyaluronidase,human (RITUXAN HYCELA SUBCUTANEOUS) Inject subcutaneously. amoxicillin-clavulanate potassium (AUGMENTIN) 875-125 mg per tablet Take 1 tablet by mouth two times a day for 10 days. rosuvastatin (CRESTOR) 20 mg tablet Take 1 tablet by mouth once daily. metroNIDAZOLE (METROGEL) 1 % Topical Gel Apply 1 application to affected area once daily. Location: face albuterol HFA (PROAIR HFA) 90 mcg/actuation inhaler Inhale 2 Puffs as instructed every 6 hours as needed. Doxycycline Hyclate 100 mg EC tablet Take 100 mg by mouth two times a day. aspirin, enteric coated (ASPIRIN, ENTERIC COATED) 81 mg EC tablet Take 81 mg by mouth once daily. (Patient not taking: Reported on 04/14/2023) fluticasone (FLONASE) 50 mcg/actuation nasal spray Use 2 Sprays in each nostril once daily. Rinse mouth after use. (Patient not taking: Reported on 04/14/2023) omeprazole (PRILOSEC) 10 mg capsule Take 1 capsule by mouth once daily. (Patient taking differently: Take 10 mg by mouth once daily. PRN) No current facility-administered medications on file prior to visit. Social History Social History Tobacco Use Smoking status: Former Packs/day: 1.00 Years: 8.00 Additional pack years: 0.00 Total pack years: 8.00 Types: Cigarettes Quit date: 02/15/1974 Years since quittin.4 Smokeless tobacco: Never Tobacco comments: NO EXPOSURE TO 2ND HAND SMOKE Vaping Use Vaping Use: Never used Substance Use Topics Alcohol use: Yes Comment: occasionally Drug use: No Review of Symptoms REVIEW OF SYSTEMS See HPI EXAM: BP 128/80 (BP Site: Right Arm, BP Position: Sitting, BP Cuff Size: Regular Adult) Pulse 60 Temp 36 C (96.8 F) Resp 16 Wt 79.4 kg (175 lb) BMI 23.73 kg/m General Appearance: Well appearing, alert, in no acute distress, well-hydrated, well nourished.. Skin: the right foot and great toe is not as erythematous. splitting machine tender to palpation but again less then it was even 3 days ago. Still swollen. Foot pulses are intact. Health Maintenance List RSV Vaccine(1 - 1-dose 60+ series) Never done DTaP,Tdap,Td Vaccine(2 - Td or Tdap) due on 10/31/2020 Covid-19 Vaccine( season) due on 10/16/2022 Advance Directive Discussion due on 02/15/2023 Behavioral Health Screening Never done LDL Cholesterol due on 04/03/2024 Diabetes Screening due on 04/03/2026 Influenza Vaccine Completed Shingrix Vaccine Completed Pneumococcal Vaccine: 65+ Completed HPV Vaccine Aged Out Colorectal Cancer Screening Discontinued Data reviewed A/P ASSESSMENT/PLAN: 1. Cellulitis of skin - ICD9: 682.9, ICD10: L03.90 - will extend antibiotic for another 7 days. - C-REACTIVE PROTEIN - SEDIMENTATION RATE, WESTERGREN - COMPLETE BLOOD COUNT AND DIFFERENTIAL - AMOXICILLIN 875 MG-POTASSIUM CLAVULANATE 125 MG TABLET - CONSULT TO PODIATRY Requested Prescriptions Signed Prescriptions Disp Refills amoxicillin-clavulanate potassium (AUGMENTIN) 875-125 mg per tablet 14 tablet 0 Sig: Take 1 tablet by mouth two times a day for 7 days. If not able to see podiatry next week he will f/u with me again next Wednesday. Jared Robertson MD documented in this encounter [facility] 06-29-2023 Instructions Matthew Servin MD - 06/29/2023 10:33 AM EDT Images from the original note were not included. 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 Your symptoms have shown some improvement in balance after the first infusion. Recommendations: - Continue ritixumab infusion in September. - Check some blood tests to monitor your antibodies and B cell count to assess response to the medication. - Continue cellulitis treatment with your PCP. - Neuropathy and rituximab can increase your risk for infection, so please inspect your feet and skin every day to make sure that they are clean and have not undergone an injury that may have been missed. Preventing Falls at Home Falls are common, often dreaded events in the lives of older people. Aside from the obvious injuries and even that may result, fall can cause wide-ranging consequences including loss of independence, mental decline, decreased activity and mobility. Younger people are also at risk of falling, especially those with chronic illnesses and fatigue. Ways to reduce risk for falling Examine diet and medications. Warm foods and alcohol dilate blood vessels, which can lead to dizziness when standing. Sleep aids, antidepressants and pain medications can also increase the likelihood of a fall. Get a vision exam. Poor vision, cataracts and glaucoma increase the chances of falling. Check foot gear. Shoes should fit snugly and have a sturdy, nonskid sole and a broad, low heel Participate in a physician-approved exercise program to build and maintain muscle strength and improve balance and coordination. Programs that use ankle weights or stretch bands are excellent for muscle-strengthening. Water aerobics programs and low-impact Devan Chi programs have also been shown to improve balance and coordination. Increase vitamin D intake. Vitamin D improves muscle strength and increases the amount of calcium the body is able to absorb and deposit in bones. How to prevent falls from common hazards Floors -- Remove all loose wires, cords, and throw rugs. Minimize clutter. Make sure rugs are anchored and smooth. Keep furniture in its usual place. Chairs -- Use chairs with straight backs, armrests and firm seats. Add firm cushions to existing pieces to add height. Bathroom -- Install grab bars and non-skid tape in the tub or shower. Use a bathtub transfer bench or a shower chair with a back support Use an elevated toilet seat and/or safety rails to assist standing from a low surface. Do not use towel racks or bathroom tissue holders to help you stand. Lighting -- Make sure halls, stairways, and entrances are well-lit. Install a night light in your bathroom or hallway. Make sure there is a light switch at the top and bottom of the staircase. Turn lights on if you get up in the middle of the night. Make sure lamps or light switches are within reach of the bed if you have to get up during the night. Kitchen -- Install non-skid rubber mats near the sink and stove. Clean spills immediately. Store frequently used utensils, pots, pans between waist and eye level. This helps prevent reaching and bending. Sit when getting things out of lower cupboards. Living room / Bedrooms - Place furniture with wide spaces in between, giving enough room to move around. Establish a route through the living room that gives you something to hold onto as you walk. Stairs -- Make sure treads, rails, and rugs are secure. Install a rail on both sides of the stairs. If stairs are a threat, it might be helpful to arrange most of your activities on the lower level to reduce the number of times you must climb the stairs. Entrances and doorways -- Install metal handles on the rawls adjacent to the doorknobs of all doors to make it more secure as you travel through the doorway. Tips for maintaining balance Keep at least one hand free at all times. Try using a backpack or sadiq pack to hold things rather than carrying them in your hands. Never carry objects in both hands when walking as this interferes with keeping your balance. Attempt to swing both arms from front to back while walking. This might require a conscious effort if Parkinson s disease has diminished your movement. It will, however, help you to maintain balance and posture, and reduce fatigue. Consciously lift your feet off of the ground when walking. Shuffling and dragging of the feet is a common culprit in losing your balance. When trying to navigate turns, use a U technique of facing forward and making a wide turn, rather than pivoting sharply. Try to stand with your feet shoulder-length apart. When your feet are close together for any length of time, you increase your risk of losing your balance and falling. Do one thing at a time. Don t try to walk and accomplish another task, such as reading or looking around. The decrease in your automatic reflexes complicates motor function, so the less distraction, the better. Do not wear rubber or gripping soled shoes, they might catch on the floor and cause tripping. Move slowly when changing positions. Use deliberate, concentrated movements and, if needed, use a grab bar or walking aid. Count 15 seconds between each movement. For example, when rising from a seated position, wait 15 seconds after standing to begin walking. If balance is a continuous problem, you might want to consider a walking aid such as a cane, walking stick, or walker. Once you ve mastered walking with help, you might be ready to try it on your own again. documented in this encounter [facility] 06-29-2023 History of Present illness Narrative [facility] Neurological [facility] New Patient Visit Note Consultation requested by Mimi Solis PA-C for an opinion regarding polyneuropathy. My final recommendations will be communicated back to the requesting physician by way of shared Medical record or letter to requesting physician via US mail. History of Present Illness: Adarsh Sorensen is a 82 year old left-handed male with a history of waldenstrom's macroglobulinemia presenting for evaluation of gait instability. He was accompanied by his . Symptoms began in August 2022. He developed unsteadiness when walking and had a fall. He was hospitalized due to concern for stroke, but imaging was negative. He was told that his symptoms may be due to an inner ear condition. He experienced some mild improvement with vestibular therapy but symptoms still persisted to a certain extent. Other symptoms include an action tremor in the LUE. Has had no other overt weakness or other major symptoms. There has been no loss of consciousness. He was initially evaluated here on 02/16/23. 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 Serum testing was significant for an elevated K/L ratio of 7 and positive MAG antibody. Following the EMG, he was referred for rituximab infusions. He had the induction dose in March. Had some nausea and mild headache but not much else in the way of side effects. Currently, he feels that his balance is better. The tingling sensations in his legs seemed to have resolved too. Has not had any falls. Continues to have mild tremor in his arm that affects his writing slightly. Otherwise has not had any weakness or any other new symptoms. Of note, he was diagnosed with cellulitis recently (~1.5 weeks ago). He is currently taking antibiotics for it. Is very tender and still erythematous but does not seem to be progressing. Denies any other illnesses or hospitalizations. He has an interval scan to screen for lymphoma in the coming months. 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 pt to go see Dr. 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 Layla VORA SURG CHOLECYSTECTOMY W/CHOLANGIOGRAPHY 04/12/2009 PAST SURGICAL HISTORY OF 11/2014 AAA repair PAST SURGICAL HISTORY OF 2015 both eyes cataract removal. PAST SURGICAL HISTORY OF 10/13/2017 right shoulder surgery per [facility] UMBILICAL HRNA 5 YRS/> REDUCIBLE 04/12/2009 STRESS TEST 02/27/2014 WNL Medications: Current Outpatient Medications Medication Sig rituximab/hyaluronidase,human (RITUXAN HYCELA SUBCUTANEOUS) Inject subcutaneously. Doxycycline Hyclate 100 mg EC tablet Take 100 mg by mouth two times a day. traMADol (ULTRAM) 50 mg tablet Take 1 tablet by mouth every 8 hours as needed for pain (left great toe pain) for up to 7 days. amoxicillin-clavulanate potassium (AUGMENTIN) 875-125 mg per tablet Take 1 tablet by mouth two times a day for 10 days. rosuvastatin (CRESTOR) 20 mg tablet Take 1 tablet by mouth once daily. aspirin, enteric coated (ASPIRIN, ENTERIC COATED) 81 mg EC tablet Take 81 mg by mouth once daily. (Patient not taking: Reported on 04/14/2023) fluticasone (FLONASE) 50 mcg/actuation nasal spray Use 2 Sprays in each nostril once daily. Rinse mouth after use. (Patient not taking: Reported on 04/14/2023) omeprazole (PRILOSEC) 10 mg capsule Take 1 capsule by mouth once daily. (Patient taking differently: Take 10 mg by mouth once daily. PRN) metroNIDAZOLE (METROGEL) 1 % Topical Gel Apply 1 application to affected area once daily. Location: face albuterol HFA (PROAIR HFA) 90 mcg/actuation inhaler Inhale 2 Puffs as instructed every 6 hours as needed. No current facility-administered medications for this visit. Allergies: See updated allergies documented below. ALLERGIES Allergen Reactions Elavil [Amitriptyli* Other: See Comments Tired and depressed feeling Social History Tobacco Use Smoking status: Former Packs/day: 1.00 Years: 8.00 Additional pack years: 0.00 Total pack years: 8.00 Types: Cigarettes Quit date: 02/15/1974 Years since quittin.3 Smokeless tobacco: Never Tobacco comments: NO EXPOSURE TO 2ND HAND SMOKE Vaping Use Vaping Use: Never used Substance Use Topics Alcohol use: Yes Comment: occasionally Drug use: No Employer And Job Title: None on file Years Of Education Completed: Not specified Marital Status: Single FAMILY HISTORY Problem Relation Age of Onset Multiple Sclerosis Brother living Colon Cancer Father 74 of metastatic brain CA Diabetes Father other (schiophrenia) Sister doing ok since e;ectroshock Alzheimer's Disease Mother ROS: CONSTITUTIONAL: No reported fevers, chills, night sweats, or significant unintentional weight loss. EYES: No visual changes indicated. No eye pain or orbital swelling reported. HEENT: No hearing changes or vertiginous symptoms indicated. No history of nose bleeds reported. RESPIRATORY: No reported cough, sputum, wheezing and dyspnea. CARDIOVASCULAR: Negative for significant chest pain, and palpitations per report. GI: Negative for significant abdominal discomfort, blood in stools or black stools reported. No recent reported change in bowel habits. : No reported history of incontinence. No dark/cola colored urine reported. MUSCLOSKELETAL: No history of significant joint pain or swelling, or myalgias reported. SKIN: Negative for pertinent lesions, rash, and itching per report. HEMATOLOGY/ONCOLOGY: Negative for reported prolonged bleeding, bruising easily, and swollen nodes. ENDOCRINE: Negative for reported significant cold or heat intolerance, no reported goitrous neck swelling or polydipsia PSYCH: No reported depression or anxiety symptoms. No reported SI or HI. NEURO: Per HPI above. No reported sleep disturbance. Vital Signs: BP 114/73 Pulse 61 Ht 182.9 cm (6') Wt 79.4 kg (175 lb) SpO2 98% BMI 23.73 kg/m Pain Scale: 0 on a scale of 0-10 General Medical Exam: General: Clinically well-appearing, comfortable. Eyes/ENT: See cranial nerve examination. Neck: No masses appreciated. Adequate range of motion without tenderness. Respiratory: Non-labored on room air. Clear to auscultation, good air entry bilaterally. Cardiac/Vascular: Normal rate and regular rhythm, no murmur appreciated. No peripheral edema. GI: Non-distended abdomen. Non-tender to palpation. Extremities: No pertinent deformities. Full passive range of motion present. Skin: Purpura scattered throughout upper and lower extremities bilaterally. Dressing around cellulitis is clean, dry and intact. Neurologic Exam: MENTAL STATUS: Alert and attentive. Orientated to self, date and situation. Naming and repetition intact. CRANIAL NERVES: II: Visual domingo intact to finger counting. Pupils equal round and reactive to light (3>2mm OD, 3>2mmOS). III/IV/: Normal conjugate, extra-ocular eye movements in all directions of gaze. No nystagmus. V: Normal facial sensation. VII: Normal facial symmetry and movements. VIII: Normal hearing function. IX-X: Normal palatal movement. XI: Normal shoulder shrug and head rotation. XII: Normal tongue strength and range of motion, no deviation or fasciculation. Speech is not dysarthric. MOTOR: No appreciable atrophy. No appreciable fasciculations. Mild action tremor present in LUE. Tone is normal. Strength/Power (MRC grade- out of 5): Neck Flexion 5 Neck Extension 5 Upper extremity power, when graded out of 5, revealed: Right Left shoulder abduction 5 5 shoulder adduction 5 5 shoulder internal rotation 5 5 shoulder external rotation 5 5 elbow extension 5 5 elbow flexion 5 5 forearm supination 5 5 forearm pronation 5 5 wrist extension 5 5 wrist flexion 5 5 finger extension 5 5 deep finger flexion (D2-3) 5 5 deep finger flexion (D4-5) 5 5 thumb flexion with FPL 5 5 thumb abduction with APB 5 5 finger abduction 5 5 Lower extremity strength, when reported the same way, showed: Right Left hip flexion 5 5 hip extension 5 5 hip adduction 5 5 hip abduction 5 5 knee flexion 5 5 knee extension 5 5 ankle dorsiflexion 5 5 ankle plantar flexion 5 5 foot inversion 5 5 foot eversion 5 5 toe extension 5 5 toe flexion 5 5 Able to rise from a chair without using arms, but with wide stance and forward leaning posture. Deep Tendon Reflexes (DTRs): Right Left Biceps 2+ 2+ Triceps 2+ 2+ Brachioradialis 2+ 2+ Patellar 0 0 Achilles 0 0 Vertical spread: No Crossed adductors: No Vann's sign: No Tromner's sign: No Plantar responses: Flexor bilaterally SENSORY: Impaired vibratory sensation (Right - 0sec at toes, 4sec at ankle, 5sec at knee / Left - 0sec at toes, 5sec at ankle, 5sec at knee) Absent temperature sensation over feet and intact proximal to the ankles. Normal and symmetrical perception of light touch and proprioception. Romberg's sign present COORDINATION/GAIT: Normal finger-to- nose-finger and [id number]-[id number]-ftes bilaterally. Intact rapid alternating movements bilaterally. Gait narrow-based with normal stride length. Unable to tandem walk. INTERNAL RECORDS: The patient's electronic medical record was reviewed. The relevant details include: Lab Results Component Value Date/Time Hemoglobin A1C 4.9 04/03/2023 0902 Vitamin B12 399 04/03/2023 0902 Georgiana Free, Serum 75.0 (H) 03/20/2023 1136 Lambda Free, Serum 10.5 03/20/2023 1136 K/L Ratio, Serum 7.14 (H) 03/20/2023 1136 MPA Result M protein is present. (A) 03/20/2023 1136 Folate 4.6 (L) 03/20/2023 1136 GM1 Antibodies 8 03/20/2023 1136 GM2 Antibodies 8 03/20/2023 1136 GD1a Antibodies 37 03/20/2023 1136 GD1b Antibodies 20 03/20/2023 1136 GQ1b Antibodies 19 03/20/2023 1136 VEGF: 35 MAG Ab IgM, FARIDA: >70,000(H) Contactin, Neurofascin: Negative EMG/NCS (03/19/23): -Absent sensory responses in the upper and lower limbs, sparing the superficial radial response. -Low amplitude motor responses in the lower limb, with notably prolonged distal latencies, slowed conduction velocities, evidence of conduction block (52% at the peroneal recording EDB, 36% at the tibial recording AH) with temporal dispersion. -The median motor response is prolonged, but normal in amplitude. The ulnar motor response (recording ADM) is low amplitude and minimally prolonged. -F responses are markedly prolonged in the upper and lower limb. -Absent H reflex which may be normal given the patient's age. -Chronic motor axon loss with a distal predominance in the upper and lower limb, with sparse active denervation in medial gastrocnemius and the paraspinals. 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 Symptoms have shown some mild improvement after induction dose of rituximab. Will proceed with maintenance infusion and then determine the need for further dosing afterward based on clinical status. PLAN/RECOMMENDATIONS: The impression above as well as the plan as outlined below were extensively discussed with the patient (in the company of his spouse) who voiced understanding. All questions were answered to their stated satisfaction. Recommendations: - Continue with next rituxumab infusion in September. - Advised patient to routinely perform skin examinations on his lower extremities daily. The neuropathy and rituximab puts him at risk for infection, so it is crucial to monitor for any lacerations or injuries. Follow-up in October or later, after next infusion. The patient was counseled on pertinent fall precautions per the printed material provided today and as noted under the Patient Instructions section below. When available, results of the above investigations and possible further recommendations will be communicated to the patient via telephone/[employer]. Patient to call office if not contacted after expected testing turnaround time. To aid with communication, patients (and primary care physicians) can sign up for [employer] (or [employer]), which allows online appointment scheduling, transmission of labs results and chart notes, and secure email communication. To establish either account, visit [employer]. Matthew Servin MD Neuromuscular Medicine (NM) Fellow In the service of Dr. Maxwell Wharton ([place] Staff) [facility] STAFF: TEACHING PHYSICIAN NOTE OF PERSONAL INVOLVEMENT IN CARE INCLUDING MEDICAL DECISION MAKING I have reviewed the clinical details obtained and documented by Dr. Servin and I have participated in the patel components, including pertinent aspects of the history and physical examination. I have discussed the case and management of the patient's care with Dr. Servin. I essentially agree with the assessment and plan as documented above. Edits to the note are indicated by italics. This note was partially created using voice recognition software and is inherently subject to errors including those of syntax and sound-alike substitutions which may escape proofreading. In such instances, original meaning may be extrapolated by contextual derivation. I spent a total of 30 minutes on the date of the service which included preparing to see the patient, [id number] patient care, completing clinical documentation, obtaining and/or reviewing separately obtained history, performing a medically appropriate examination, and counseling and educating the patient/family/caregiver. Maxwell Wharton DO Staff, Neuromuscular Medicine [facility] Referring provider: Maxwell Wharton [address] [facility] [address] Primary care provider: Jared Robertson [address] [place] [address] documented in this encounter [facility] 06-28-2023 History of Present illness Narrative Chief Complaint Patient presents with: Follow Up HPI Adarsh Sorensen is a 82 year old male who presents here today for follow up on left great toe. How is patient feeling today? less tender and decreased erythema and swelling. No fevers or chills Patient is still having pain and discomfort. Pain scale today about 8. Patient indicated that it went from red to purple color. Patient indicated other areas of his foot is painful and top of foot and by the arch. Patient was placed Augmenting 875 mg twice a day for 10 days. Office visit - 06/24/2023 Adarsh Sorensen is a 82 year old male who presents here today for patient was seen in [place] ER Wednesday afternoon with c/o pain in th left great toe with increasing redness and pain. No fevers or chill. Patient was placed on keflex 500 mg twice a day for 10 days. No labs or imaging was done. No known trauma. Patient says the redness has improved. The pain is not any better. No fevers or chills. Patient has not seen any pus but the ball of the foot feels softer. He has not noted any warmth to the area. Past medical history, appointments, medications, allergies reviewed. [...] 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 10/07/2015 DDD (degenerative disc disease), lumbar 10/07/2015 Degeneration [...] pt to go see Dr. 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 Layla VORA SURG [...] on File Prior to Visit Medication Sig rituximab/hyaluronidase,human (RITUXAN HYCELA SUBCUTANEOUS) Inject subcutaneously. Doxycycline Hyclate 100 mg EC tablet Take 100 mg by mouth two times a day. traMADol (ULTRAM) 50 mg tablet Take 1 tablet by mouth every 8 hours as needed for pain (left great toe pain) for up to 7 days. amoxicillin-clavulanate potassium (AUGMENTIN) 875-125 mg per tablet Take 1 tablet by mouth two times a day for 10 days. rosuvastatin (CRESTOR) 20 mg tablet Take 1 tablet by mouth once daily. aspirin, enteric coated (ASPIRIN, ENTERIC COATED) 81 mg EC tablet Take 81 mg by mouth once daily. (Patient not taking: Reported on 04/14/2023) fluticasone (FLONASE) 50 mcg/actuation nasal spray Use 2 Sprays in each nostril once daily. Rinse mouth after use. (Patient not taking: Reported on 04/14/2023) omeprazole (PRILOSEC) 10 mg capsule Take 1 capsule by mouth once daily. (Patient taking differently: Take 10 mg by mouth once daily. PRN) metroNIDAZOLE (METROGEL) 1 % Topical Gel Apply [...] Types: Cigarettes Quit date: 02/15/1974 Years since quittin.3 Smokeless tobacco: Never Tobacco comments: NO EXPOSURE TO 2ND HAND SMOKE Vaping Use Vaping Use: Never used Substance Use Topics Alcohol use: Yes Comment: occasionally Drug use: No Review of Symptoms REVIEW OF SYSTEMS See HPI EXAM: BP 128/72 (BP Site: Left Arm, BP Position: Sitting, BP Cuff Size: Regular Adult) Pulse 64 Temp 36.3 C (97.3 F) Resp 16 Wt 79.4 kg (175 lb) BMI 23.41 kg/m General Appearance: Well appearing, alert, in no acute distress, well-hydrated, well nourished.. Skin: the erythema and swelling of the left great toe is decreased. The area is not hot to touch or cold to touch. The tenderness is decreased. The left big toe and area on the medial side of the foot was purplish but blanched with pressure and improved with elevating his leg. Posterior tibial pulse was good. He is able to flex the toe some today which he was not at the end of last week. Health Maintenance List RSV Vaccine(1 - 1-dose 60+ series) Never done DTaP,Tdap,Td Vaccine(2 - Td or Tdap) due on 10/31/2020 Covid-19 Vaccine(2022- season) due on 10/16/2022 Advance Directive Discussion due on 02/15/2023 Behavioral Health Screening Never done LDL Cholesterol due on 04/03/2024 Diabetes Screening due on 04/03/2026 Influenza Vaccine Completed Shingrix Vaccine Completed Pneumococcal Vaccine: 65+ Completed HPV Vaccine Aged Out Colorectal Cancer Screening Discontinued Data reviewed A/P ASSESSMENT/PLAN: 1. Cellulitis of skin - ICD9: 682.9, ICD10: L03.90 (primary diagnosis) - continue treatment with Augmentin. 2. Venous stasis - ICD9: 459.81, ICD10: I87.8 - advised elevating foot as much as possible. Will have patient f/u this Wednesday. Jared Robertson MD documented in this encounter [facility] 06-25-2023 Telephone encounter Note Patient returned call and received the previous message. He voiced understanding. Confirmed next PCP OV on 06/28/23. [facility] 06-25-2023 Miscellaneous Notes Patient returned call and received the previous message. He voiced understanding. Confirmed next PCP OV on 06/28/23. LM to return call to office. Walter Valerio LPN Let patient know CBC and uric acid were ok. I agree this is most likely not gout. documented in this encounter [facility] 06-25-2023 Telephone encounter Note LM to return call to office. Walter Valerio LPN [facility] 06-25-2023 Telephone encounter Note Let patient know CBC and uric acid were ok. I agree this is most likely not gout. [facility] 06-24-2023 Telephone encounter Note Patient informed and verbalized understanding. Mar Barrett MA [facility] 06-24-2023 Miscellaneous Notes Patient informed and verbalized understanding. Mar Barrett MA Xray of toe doesn't show any fractures or dislocations. Shows soft tissue swelling and mild arthritis. For now, continue as discussed with Dr. Robertson. Tanisha Garcia PA-C documented in this encounter [facility] 06-24-2023 Telephone encounter Note Xray of toe doesn't show any fractures or dislocations. Shows soft tissue swelling and mild arthritis. For now, continue as discussed with Dr. Robertson. Tanisha Garcia PA-C [facility] 06-24-[address] Robertson has signed the scripts. [facility] 06-24-[address] Robertson has signed the scripts. Patient calling was in to see Dr Robertson this morning and the rx are not at the pharmacy as yet. In computer office visit shows the rx's are still pending, for Tramadol and Augmentin. Patient has been to the pharmacy twice to pick them up. Patient uses [facility] for his pharmacy. Dr Robertson is out this afternoon, sending note to OCCUPATIONAL PHYSICIAN to review. Please advise documented in this encounter [facility] 06-24-2023 Telephone encounter Note Patient calling was in to see Dr Robertson this morning and the rx are not at the pharmacy as yet. In computer office visit shows the rx's are still pending, for Tramadol and Augmentin. Patient has been to the pharmacy twice to pick them up. Patient uses [facility] for his pharmacy. Dr Robertson is out this afternoon, sending note to OCCUPATIONAL PHYSICIAN to review. Please advise [facility] 06-24-2023 History of Present illness Narrative Radiology Service Progress Note PATIENT NAME: Adarsh Sorensen DATE OF SERVICE: June 24, 2023 TIME: 11:36 AM PATIENT IDENTITY VERIFICATION COMPLETED USING TWO (2) IDENTIFIERS: Name and Date of confirmed by patient verbally. FALL SCREENING: Has the patient had 2 falls in the last year or 1 fall with injury or currently using an Ambulatory Assistive Device (Walker, Cane, Wheelchair, Crutches, etc.)? No PATIENT GENDER DATA: Male PATIENT RELEVANT IMPLANT DATA REVIEWED: Yes PATIENT PRESENTS WITH AN IMPLANTABLE OR ATTACHED PRESS FEEDER BROOMCORN: No RADIOLOGY DEPARTMENT: General X-ray: Exam(s) Completed: Lower Extremity X-Ray(s): Toes, Left Great toe PERIPHERAL IV DATA: Not applicable SIGNED BY: RT Kristian(R) June 24, 2023 11:36 AM documented in this encounter [facility] 06-24-2023 History of Present illness Narrative Chief Complaint Patient presents with: ER F/U HPI Adarsh Sorensen is a 82 year old male who presents here today for patient was seen in [place] ER Wednesday afternoon with c/o pain in th left great toe with increasing redness and pain. No fevers or chill. Patient was placed on keflex 500 mg twice a day for 10 days. No labs or imaging was done. No known trauma. Patient says the redness has improved. The pain is not any better. No fevers or chills. Patient has not seen any pus but the ball of the foot feels softer. He has not noted any warmth to the area. Past medical history, appointments, medications, allergies reviewed. No changes. ROS: Pertinent positives/ negatives: see HPI PHYSICAL EXAMINATION BP 119/75 Pulse 75 Ht 184.2 cm (6' 0.5) Wt 79.4 kg (175 lb) BMI 23.41 kg/m General: Alert and oriented, no distress, pleasant and cooperative. Skin: the skin over the dorsal distal joint of the left great toe is very erythematous but firm. No fluctuance appreciated around the joint or over the plantar aspect of the 1st MTP joint. Does not feel warm to touch but very tender. No purulence seen Data reviewed [facility] report from 06/20/2023 A/P ASSESSMENT/PLAN: 1. Pain of left great toe - ICD9: 729.5, ICD10: M79.675 (primary diagnosis) Check - XR TOE AP/LAT/OBL LEFT - URIC ACID if elevate or high normal will treat with colchicine. - SEDIMENTATION RATE, WESTERGREN Script for prn tramadol provided. PDMP website checked and validated. All prescriptions have been APPROPRIATELY filled. No suspicious activity was identified. 06/24/2023 by Jared Robertson MD 2. Cellulitis of skin - ICD9: 682.9, ICD10: L03.90 - will stop the keflex and place him on Augmentin 875 mg twice a day for 10 days - COMPLETE BLOOD COUNT AND DIFFERENTIAL - SEDIMENTATION RATE, WESTERGREN Requested Prescriptions Pending Prescriptions Disp Refills traMADol (ULTRAM) 50 mg tablet 21 tablet 0 Sig: Take 1 tablet by mouth every 8 hours as needed for pain (left great toe pain) for up to 7 days. amoxicillin-clavulanate potassium (AUGMENTIN) 875-125 mg per tablet 20 tablet 0 Sig: Take 1 tablet by mouth two times a day for 10 days. Patient to f/u next Wednesday. Advised if getting worse needs to go to the ER. Jared Robertson MD documented in this encounter [facility] 06-21-2023 History of Present illness Narrative Scan on 06/21/2023 12:54 AM by Provider, External, PAShaiC: Consultation - Emergency Medicine Lillian Reardon MA documented in this encounter [facility] 06-17-2023 History of Present illness Narrative H&P by Dr. Friend, Colonoscopy and EGD report. Scan on 06/17/2023 7:17 AM by ProviderTangela PA-C Scan on 06/17/2023 8:30 AM by Provider, JORDAN Honeycutt: EGD Scan on 06/17/2023 8:35 AM by ProviderTangela PA-C: Colonoscopy Health Maintenance updated. documented in this encounter [facility] 06-17-2023 History and physi bettye note Note Date/Time June 17, 2023 7:13am [facility] Medical Records Department [address] [address] History & Physical Exam 06/17/23712 MR#: [id number] Acct: [id number] Name: ADARSH SORENSEN Rep #:[id number] : 1940 82 From: Danny Mathew DO PCP: Dr. Jared Robertson MD Status:[facility] Location: [place] [address] History and Physical Date of Admission: 06/17/23 ADARSH SORENSEN, is a 82 M who presents to the office today for follow up. *BGI established 9.14.22 with daily reflux starting just prior to breakfast withnoted food triggers. Left sided abdominal pain/discomfort with gaseous noises. Constipation (no BM for 5 days) alternating with loose stools typically in morning, exacerbated by changes of environment. Reports colonic stricture; previously established with [facility] who cut the area approximately 5 years prior. EGD and colonoscopy 11.25.21 EGD moderate intrinsic stenosis, Savary 57F; irregular Zline; large hiatal hernia; gastritis. No path changes. H.Pylori neg Colonoscopy poor prep; anal canal stenosis; entire colon redundant; congested mucosa. No path changes OV 12.25.21 Noted improvement of swallowing. Referred to [facility] for fundoplication evaluation. Repeat colonoscopy [facility] established 01.15.22 recommending additional testing prior to scheduling/recommending fundoplication surgery. After further testing it was determined he is a good candidate for fundoplication surgery. Esophageal manometry 01.15.22 WNL Upper GI Swallow 01.19.22 elevation of right hemidiaphragm; abdominal aorta stent grafting visualized. Laparoscopic toupet fundoplication with intraop EGD .08.07 without complication GI outpatient workup: Colonoscopy 06.05.22 anal stricture/intrinsic severe stenosis, Savary 51F. No specimens OV 5.2.23 Start Metamucil for constipation. Doxycycline for ongoing flatulence. OV 10.4. loose stools alternating with several days of no BM and nausea with dry heaving have been an ongoing for a while. Did not start Metamucil as historically it caused constipation. Does not recall taking doxycycline, if he did it was not memorable. OV 4.17.24 pt reports that he is experiencing similar symptoms as he had at his previous visit. Pt reports that he is having constant left sided pain that feelslike an ache. States that eating sometimes worsen the pain. Pt states that he has a bowel movement every 1 - 2 days, and that is has been diarrhea for a few weeks now. Pt states that he has some trouble swallowing rough or dry food and feels that his esophagus has narrowed since his hiatal hernia surgery. ROS Const Constitutional: Positive for fatigue ENT ENT: No difficulty swallowing Gastro GI: Positive for abdominal pain, bloating, change in bowel habits, constipation,diarrhea, heartburn, excessive flatus and nausea/dyspepsia; No belching, change in stool character, coffee ground emesis, cramping, difficulty swallowing, feeling full early, incontinent of stools, Vomiting blood/hematemesis, Blood in stool, loose stools, Black,tarry stools, pain with swallowing, vomiting or other Musc Musculoskeletal: Positive for back pain, muscle cramps, numbness, stiffness, tingling, Arthritis, sciatica and leg pain at night; No joint pain Skin Skin: No yellowing of the eye or itchy eyes Neuro Neurology: Positive for numbness, tingling and Increased tone in limbs Psych Psychiatric: No anxiety and No depression Endo Endocrine: Positive for fatigue Aller/Imm Allergy/Immunologic: No itchy eyes Juma/Lymp Hematologic/Lymphatic: Positive for easy bruising; No easy bleeding Exam Const General: cooperative, healthy appearing and comfortable Nutritional Appearance: average body habitus Orientation: alert, awake and oriented x3 Quality Reporting Tobacco Screening ([facility] 138) Smoking Status: Unknown if ever smoked Assessment and Plan Assessment and Plan (1) Alternating constipation and diarrhea: Status: Chronic Plan: Try Citrucel instead of Metamucil to bulk up the soft stools (2) Flatulence/gas pain/belching: Status: Chronic Plan: Treat with doxycycline 100mg x 30 days (3) Anal stenosis: Status: Chronic Plan: Patient is going to the bathroom a lot better. I think he needs Botox at this time and/ or another dilation. I have examined the patient and the H&P has been reviewed. There are no clinicalchanges since date of exam. 06/17/23712 <Electronically signed by Danny Mathew DO> Cosigner Signature (if applicable): CC: Dr. Jared Robertson MD; Danny Mathew DO~ Signed [facility] Work Phone: 1(257) 381-250205-02-2024 Procedure [facility] 06-17-2023 Procedure [facility]05-02-2024 Procedure note [facility]05-02-2024 Procedure [facility] 06-17-2023 [facility] Medical Records Department [address] [place] [id number] History Physical Exam 06/17/23712 MR#: [id number] Acct: [id number] Name: ADARSH SORENSEN Rep #: [id number] : 1940 82 From: Danny Mathew DO PCP: Dr. Jared Robertson MD Status:[facility] Location: [place] [address] History and Physical Date of Admission: 06/17/23 ADARSH SORENSEN, is a 82 M who presents to the office today for follow up. *BGI established 10.29.21 with daily reflux starting just prior to breakfast with noted food triggers. Left sided abdominal pain/discomfort with gaseous noises. Constipation (no BM for 5 days) alternating with loose stools typically in morning, exacerbated by changes of environment. Reports colonic stricture; previously established with [facility] who cut the area approximately 5 years prior. EGD and colonoscopy 11.25.21 EGD moderate intrinsic stenosis, Savary 57F; irregular Zline; large hiatal hernia; gastritis. No path changes. H.Pylori neg Colonoscopy poor prep; anal canal stenosis; entire colon redundant; congested mucosa. No path changes OV 12.25.21 Noted improvement of swallowing. Referred to [facility] for fundoplication evaluation. Repeat colonoscopy [facility] established 01.15.22 recommending additional testing prior to scheduling/recommending fundoplication surgery. After further testing it was determined he is a good candidate for fundoplication surgery. Esophageal manometry 01.15.22 WNL Upper GI Swallow 01.19.22 elevation of right hemidiaphragm; abdominal aorta stent grafting visualized. Laparoscopic toupet fundoplication with intraop EGD 03.23.22 without complication GI outpatient workup: Colonoscopy 06.05.22 anal stricture/intrinsic severe stenosis, Savary 51F. No specimens OV 5.2.23 Start Metamucil for constipation. Doxycycline for ongoing flatulence. OV 10.. loose stools alternating with several days of no BM and nausea with dry heaving have been an ongoing for a while. Did not start Metamucil as historically it caused constipation. Does not recall taking doxycycline, if he did it was not memorable. OV 06.01.24 pt reports that he is experiencing similar symptoms as he had at his previous visit. Pt reports that he is having constant left sided pain that feels like an ache. States that eating sometimes worsen the pain. Pt states that he has a bowel movement every 1 - 2 days, and that is has been diarrhea for a few weeks now. Pt states that he has some trouble swallowing rough or dry food and feels that his esophagus has narrowed since his hiatal hernia surgery. ROS Const Constitutional: Positive for fatigue ENT ENT: No difficulty swallowing Gastro GI: Positive for abdominal pain, bloating, change in bowel habits, constipation, diarrhea, heartburn, excessive flatus and nausea/dyspepsia; No belching, change in stool character, coffee ground emesis, cramping, difficulty swallowing, feeling full early, incontinent of stools, Vomiting blood/hematemesis, Blood in stool, loose stools, Black,tarry stools, pain with swallowing, vomiting or other Musc Musculoskeletal: Positive for back pain, muscle cramps, numbness, stiffness, tingling, Arthritis, sciatica and leg pain at night; No joint pain Skin Skin: No yellowing of the eye or itchy eyes Neuro Neurology: Positive for numbness, tingling and Increased tone in limbs Psych Psychiatric: No anxiety and No depression Endo Endocrine: Positive for fatigue Aller/Imm Allergy/Immunologic: No itchy eyes Juma/Lymp Hematologic/Lymphatic: Positive for easy bruising; No easy bleeding Exam Const General: cooperative, healthy appearing and comfortable Nutritional Appearance: average body habitus Orientation: alert, awake and oriented x3 Quality Reporting Tobacco Screening ([facility] 138) Smoking Status: Unknown if ever smoked Assessment and Plan Assessment and Plan (1) Alternating constipation and diarrhea: Status: Chronic Plan: Try Citrucel instead of Metamucil to bulk up the soft stools (2) Flatulence/gas pain/belching: Status: Chronic Plan: Treat with doxycycline 100mg x 30 days (3) Anal stenosis: Status: Chronic Plan: Patient is going to the bathroom a lot better. I think he needs Botox at this time and/ or another dilation. I have examined the patient and the H P has been reviewed. There are no clinical changes since date of exam. 06/17/23 0713 Cosigner Signature (if applicable): CC: Dr. Jared Robertson MD; Danny Mathew DO SignedWMercy Health St. [facility]04-10-2024 Instructions* Patient Instructions* Mimi Solis PA-C - 05/26/2023 4:34 PM EDT Follow up with Dr. Wharton documented in this encounterUniversity Hospitals Tripoint [facility] Center04-10-2024 History of Present illness Narrative* Mimi Solis PA-C - 05/26/2023 4:05 PM EDT ESTABLISHED PATIENT VISIT Last visit: 02/16/23 Assessment & Plan: Adarsh Sorensen is a 82 year old left-handed male with a history of MLL, anemia, IBS, Tucker syndrome, insomnia, AAA, HLD. His examination demonstrates diminished sensation with small and large fibersto UE and LE, worse on left. Absent reflexes in lower extremities. Patient with onset of unsteadiness beginning . Patient was hospitalized for concerns of stroke but this workup was negative, was told this was likely secondary to inner ear condition and discharged home with vestibular therapy. Notes some possible mild improvement with vestibular therapy, but no resolution of symptoms. Since stopping therapy his symptoms have slightly worsened. Describing positional unsteadiness/lightheadedness, no presyncope or syncope. Did have 1 fall when his symptoms began but none since. No room spinning dizziness, no internal vertigo. No other symptoms with his unsteadiness. 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 Positive M protein but no history of gammopathy. Patient with signs symptoms of neuropathy, worse on the left side, on exam. Orthostatics were negative in the office. However due to patient's positional concerns, concern there is a possible orthostatic component or neuropathy component to his unsteadiness. Will order EMG of the upper and lower extremity. Of note, patient also reporting some fasciculations in his calves bilaterally and today in his left hand, these were not observed on exam today. No family history of any ALS, no tongue fasciculations, no generalized weakness and fatigue, no hyperreflexia. Will also order additional laboratory studies due to asymmetric presentation ofneuropathy favoring the left side. Patient with recent B12 that was normal. Discussed conservative measures that may be beneficial including compression, increasing water intake, alpha lipoic acid. Additionally, on review of CTA head and neck there is up to 80% stenosis at the right common carotid, patient does have vascular surgeon and encouraged to follow-up with them toevaluate this further. Patient agrees and understands. Patient currently compliant with his statin medication. Patient agreeable to treatment plan of care at this time, all questions were answered. Patient to follow-up following completion of the studies. Adarsh was seen today for new patient. Diagnoses and all orders for this visit: Unsteady gait - CONSULT TO NEUROLOGY - EMG(NEURO/NI); Future Neuropathy - EMG(NEURO/NI); Future - CHARAN/ANGIOTENSIN BLD; Future - ANTI NEUTRO CYTO AB; Future - C4 COMPLEMENT BLD; Future - C3 COMPLEMENT BLD; Future - FOLATE SERUM; Future Monoclonal gammopathy He should return to see me in 2-3 months. CHIEF COMPLAINT: follow up HISTORY OF PRESENT ILLNESS: Adarsh Sorensen is a 82 year old male, There were no vitals taken for thisvisit. with a PMH significant for MLL, anemia, IBS, Tucker syndrome, insomnia, AAA, HLD. Patient was found to have anti mag on EMG testing and saw Dr. Wharton on 03/25/23. He is presenting today as follow-up from his EMG a few days ago that showed a distal predominant demyelinating polyneuropathy, then found to have a +MAG antibody. Clinically he has a sensory-ataxic neuropathy consistent with this, with relatively spared motor function. We discussed all this, that the recommended treatment is IV Rituximab. We reviewed side effects/risks and he agrees to proceed. I also spoke with his Heme/Onc physician, Dr. Aguilar who agrees with this approach. Appears patient has had two infusions. Patient presents today for follow-up. Patient notes he is very confused and unsure of the trajectory of his disease. He is unsure who he was post to follow- up with and when. Has completed 2 infusionsand is scheduled for September. Has not had a follow-up with Dr. Wharton yet. Notes no significant change in his symptoms since last appointment. No falls, still very unsteady. No new concerns today. REVIEW OF SYSTEMS GENERAL:No weight loss, malaise or fevers. HEENT:Negative for frequent or significant headaches, No changes in hearing or vision, no nose bleeds or other nasal problems NECK:Negative for lumps, goiter, pain and significant neck swelling RESPIRATORY: Negative for cough, wheezing or shortness of breath. CARDIOVASCULAR: Negative for chest pain, leg swelling or palpitations. GASTROINTESTINAL: Negative for abdominal discomfort, blood in stools or black stools or change in bowel habits GENITOURINARY: No history of dysuria, frequency or incontinence MUSCULOSKELETAL: Negative for joint pain or swelling, back pain or muscle pain. NEUROLOGIC:Negative for focal numbness or weakness, headaches and dizziness or syncope, vision changes, speech/languag changes - EXCEPT that as per HPI above. SKIN:Negative for lesions, rash, and itching. PSYCHIATRIC: Negative for sleep disturbance, mood disorder and recent psychosocial stressors. HEMATOLOGIC/LYMPHATIC/IMMUNOLOGIC:Negative for prolonged bleeding, bruising easily or swollen nodes. ENDOCRINE: Negative for cold or heat intolerance, polyuria, polydipsia and goiter. The remainder of the ROS was reviewed and is negative. LAB/IMAGING: Those performed since patient's last visit have been reviewed. EMG 03/19/23 Study Interpretation Electrodiagnostic examination of the left upper and lower limbs reveals changes most consistent with the following: -Absent sensory responses in the upper and lower limbs, sparing the superficial radial response. -Low amplitude motor responses in the lower limb, with notably prolonged distal latencies, slowed conduction velocities, evidence of conduction block (52% at the peroneal recording EDB, 36% at the tibial recording AH) with temporal dispersion. -The median motor response is prolonged, but normal in amplitude. The ulnar motor response (recording ADM) is low amplitude and minimally prolonged. -F responses are markedly prolonged in the upper and lower limb. -Absent H reflex which may be normal given the patient's age. -Chronic motor axon loss with a distal predominance in the upper and lower limb, with sparse active denervation in medial gastrocnemius and the paraspinals. 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 MEDICATIONS: rosuvastatin (CRESTOR) 20 mg tablet Take 1 tablet by mouth once daily. metroNIDAZOLE (METROGEL) 1 % Topical Gel Apply 1 application to affected area once daily. Location:face albuterol HFA (PROAIR HFA) 90 mcg/actuation inhaler Inhale 2 Puffs as instructed every 6 hours as needed. aspirin, enteric coated (ASPIRIN, ENTERIC COATED) 81 mg EC tablet Take 81 mg by mouth once daily. (Patient not taking: Reported on 04/14/2023) fluticasone (FLONASE) 50 mcg/actuation nasal spray Use 2 Sprays in each nostril once daily. Rinse mouth after use. (Patient not taking: Reported on 04/14/2023) omeprazole (PRILOSEC) 10 mg capsule Take 1 capsule by mouth once daily. (Patient taking differently: Take 10 mg by mouth once daily. PRN) HISTORIES PAST MEDICAL HISTORY Diagnosis Date AAA (abdominal [...] 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 10/07/2015 DDD (degenerative disc disease), lumbar 10/07/2015 Degeneration [...] pt to go see Dr. 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 W/U with event monitor in past was normal per cardio. past medical history skin cancer forehead--unsure which kind Primary insomnia 10/07/2015 Psoriasis Rosacea 11/11/2016 Subclavian artery stenosis, right (HCC) 06/17/2017 US 06/16/2017 50-99% Thrombocytopenia (HCC) 10/07/2015 Waldenstrom's macroglobulinemia (HCC) 10/07/2015 FAMILY HISTORY Problem Relation Age of Onset Multiple Sclerosis Brother living Colon Cancer Father 74 of metastatic brain CA Diabetes Father other (schiophrenia) Sister doing ok since e;ectroshock Alzheimer's Disease Mother SOCIAL HISTORY Social History Tobacco Use Smoking status: Former Packs/day: 1.00 Years: 8.00 Additional pack years: 0.00 Total pack years: 8.00 Types: Cigarettes Quit date: 02/15/1974 Years since quittin.3 Smokeless tobacco: Never Tobacco comments: NO EXPOSURE TO 2ND HAND SMOKE Vaping Use Vaping Use: Never used Substance Use Topics Alcohol use: Yes Comment: occasionally Drug use: No PHYSICAL EXAMINATION There were no vitals taken for this visit. GENERAL EXAM: General appearance: NAD, pleasant. HEENT: NC/AT, nasal congestion absent, no oral lesions, membranes moist. NECK: No masses, supple. Lungs: Breathing comfortably Extr: Moves all extremities without difficulty Skin: Cool to touch. No rash. NEUROLOGICAL EXAM: General: Awake, alert, oriented x3 (person,place,time), speech fluent, no dysarthria; comprehension, naming, repetition intact. CN: PERRL, EOMI and without nystagmus, VFF to confrontation, facial sensation and strength are normal and symmetric, palate and tongue movements are intact and symmetric. SCM and trapezius strength normal. Motor: Normal tone, bulk and strength (5/5) bilaterally (throughout extremities x4). Reflexes: absent reflexes in lower extremities, negative vann, downgoing babinski. Upper extremities were 1/4 with exception of left brachioradialis which was 2/4. Coordination: FNF intact. No tremors. Sensation: Bilateral upper extremities: Decreased sensation to temperature to the hands bilaterally, improvingup to the forearms. Intact proprioception, decreased vibration to the DIP, PIP, MCP and intact at the wrist. Lower extremities: Absent vibration to the lower extremities at the great toe bilaterally. Absent vibration at the left ankle, diminished at the left knee. Diminished vibration to the right ankle andknee. Absent temperature sensation to the feet, decreased at ankle, right LE with similar temperature loss as left lower extremity. Gait: Narrow based and stable with normal stride and arm swing. Assessment and Plan: ASSESSMENT/PLAN: 1. CIDP (chronic inflammatory demyelinating polyneuropathy) ([facility]) - ICD9: 357.81, ICD10: G61.81 (primary diagnosis) 2. Unsteady gait - ICD9: 781.2, ICD10: R26.81 3. Neuropathy - ICD9: 355.9, ICD10: G62.9 4. Neuropathy associated with anti-MAG antibody - ICD9: 356.8, ICD10: G62.89 Patient with EMG and clinical history concerning for demyelinating peripheral neuropathy and found to have a +MAG antibody. Was seen by Dr. Wharton on 03/25/23 and has had two infusions of Rituximab.Has not yet followed up neuromuscular. Presents today primarily to discuss his disease as he is very confused on the trajectory of treatment and disease process. Did discuss his EMG at length, did discuss that I am not a specialist in this area but did discuss basic pathophysiology of CIDP. Encourage patient to follow-up with Dr. Wharton. Exam shows some subjective improvement in his sensory exam noted above. Patient with full strength, no falls. Still endorsing difficulty with ambulation, unsteadiness. No new symptoms, no further testing needed at this time. Patient agreeable to treatment plan of care at this time, questions were answered. Encouraged him to follow-up with neuromuscular as discussed. Mimi Solis PA-C I spent a total of 25 minutes on the date of the service which included preparing to see the patient, [id number] patient care, completing clinical documentation, obtaining and/or reviewing separately obtained history, performing a medically appropriate examination, and counseling and educating the patient/family/caregiver. This document has been created with the use of voice recognition technology. It may contain inaccuracies: (e.g. misspellings, inaccurate syntax or word sense) that have escaped review. documented in this encounterUniversity Hospitals Tripoint Medical Center03-21-2024 History of Present illness Narrative* Ailyn Roque LPN - 05/06/2023 2:09 PM EDT Scan on 05/05/2023 9:21 AM by Provider, JORDAN Honeycutt: Miscellaneous Cardiac documented in this encounterUniversity Hospitals Tripoint [facility] Center03-20-2024 Miscellaneous Notes* Telephone Encounter - Mar Barrett MA - 05/05/2023 2:04 PM EDT Patient informed and verbalized understanding. Mar Barrett MA * Telephone Encounter - Jared Robertson MD - 05/05/2023 1:31 PM EDT Let patient know the US of his heart was ok. The heart monitor showed no rapid heart beats. He had a few premature beats but most of his rhythms were normal sinus with normal heart rate or slightly slower heart rate in the 50's. documented in this encounterUniversity Hospitals Tripoint [facility] Center03-06-2024 History of Present illness Narrative* Mali Jordan RN - 04/21/2023 11:21 AM EST fc documented in this encounterUniversity Hospitals Tripoint Medical Center03-04-2024 Miscellaneous Notes* Patient Education - Liliam Gan RN - 04/19/2023 3:00 PM EST 14 Day Event monitor applied and explained to patient with verbalized understanding. documented in this encounterUniversity Hospitals Tripoint Medical Center02-28-2024 Instructions* Patient Instructions* Jared Robertson MD - 04/14/2023 6:10 PM EST Get the repeat urine before you see me in April documented in this encounterUniversity Hospitals Tripoint Medical Center02-28-2024 History of Present illness Narrative* Jared Robertson MD - 04/14/2023 4:03 PM EST Chief Complaint Patient presents with: Medicare Wellness Exam HPI Adarsh Sorensen is a 82 year old male who presents here today for Chronic Medical Conditions. and Medicare Annual Visit. Patient with Hx of AAA, Carotid artery disease, CAD, GERD, funez's, elevated fasting blood sugar,Hyperlipidemia, Waldenstrom's macroglobulinemia, Anemia, thrombocytopenia, allergic Rhinitis, insomnia, chronic bronchitis, IBS, BPH as well as those reviewed and addressed below and in ROS Any new concerns today? Patient indicated that he has been having racing heart beat; normally his rate is in low 50's;. Patient is walking about 1 mile on the treadmill everyday. Patient has had in the past but a halter showed nothing. About 3-4 months ago he started to notice a racing heart especially at night and if laying on his side. He would hear a pounding in the right ear. If he turns ontohis back the racing slows down. In the past few weeks (and may coincide with his chemo) that this seems to be occurring more frequently. Has had a chronic ache in the left shoulder for maybe a year but much more notable in the past 3-4 months. No dizziness or light headedness. No diaphoresis, chestpain/pressure, shortness of breath. Had what he thought was heartburn on Wednesday for most of the day. Did not take anything for it. Started Chemo over 1 week ago; has started to lose hair. Any recent ER/hospital visits? None Patient currently sees Neurology last visit 03/2023 Past medical history, appointments, medications, allergies reviewed. 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 pt to go see Dr. 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 Layla VORA SURG [...] on File Prior to Visit Medication Sig aspirin, enteric coated (ASPIRIN, ENTERIC COATED) 81 mg EC tablet Take 81 mg by mouth once daily. fluticasone (FLONASE) 50 mcg/actuation nasal spray Use 2 Sprays in each nostril once daily. Rinse mouth after use. rosuvastatin (CRESTOR) 20 mg tablet Take 1 tablet by mouth once daily. omeprazole (PRILOSEC) 10 mg capsule Take 1 capsule by mouth once daily. metroNIDAZOLE (METROGEL) 1 % Topical Gel Apply 1 application to affected area once daily. Location:face albuterol HFA (PROAIR HFA) 90 mcg/actuation inhaler [...] Review of Symptoms REVIEW OF SYSTEMS See HPI EXAM: BP 134/74 (BP Site: Right Arm, BP Position: Sitting, BP Cuff Size: Regular Adult) Pulse 60 Resp16 Ht 184.2 cm (6' 0.5) Wt 79.4 kg (175 lb) BMI 23.41 kg/m General Appearance: Well appearing, alert, in [...] edema, skin discoloration, Good capillary refill. . Health Maintenance List RSV Vaccine(1 - 1-dose 60+ series) Never done DTaP,Tdap,Td Vaccine(2 - Td or Tdap) due on 10/31/2020 Covid-19 Vaccine( season) due on 10/16/2022 Advance Directive Discussion due on 02/15/2023 Depression Assessment due on 02/15/2023 LDL Cholesterol due on 04/03/2024 Diabetes Screening due on 04/03/2026 Influenza Vaccine Completed Shingrix Vaccine Completed Pneumococcal Vaccine: 65+ Completed HPV Vaccine Aged Out Colorectal Cancer Screening Discontinued Data reviewed In office EKG: Sinus Espinoza with 1st degree heart block. No acute ST or T wave changes. No old EKG to compare to. A/P ASSESSMENT/PLAN: 1. Hypokalemia - ICD9: 276.8, ICD10: E87.6 (primary diagnosis) Re-check - POTASSIUM BLD 2. Palpitations - ICD9: 785.1, ICD10: R00.2 Check - ECHO - PERFLUTREN LIPID MICROSPHERES 1.1 MG/ML INJECTION IN NS 10 ML - SODIUM CHLORIDE 0.9 % (FLUSH) INJECTION SYRINGE - REGADENOSON 0.4 MG/5 ML INTRAVENOUS SYRINGE - AMINOPHYLLINE 250 MG/10 ML INTRAVENOUS SOLUTION - METOPROLOL TARTRATE 5 MG/5 ML INTRAVENOUS SOLUTION - INSERT IV ([place]) - IV DISCONTINUE - [facility] EVENT MONITOR - TSH BLD 3. Microscopic hematuria - ICD9: 599.72, ICD10: R31.29 In a month check - URINALYSIS, WITH MICROSCOPIC 4. Pounding noise in ear, right - ICD9: 388.8, ICD10: H93.8X1 Carotid US 08/2022 showed less then 50-% bilaterally. 5. Encounter for screening for cardiovascular disorders - ICD9: V81.2, ICD10: Z13.6 Check - NM CARDIAC PERF STRESS/PHARM 6. 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 (CODE) - ICD9: 414.3, ICD10: I25.83 Check - NM CARDIAC PERF STRESS/PHARM 7. 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 - ICD9: 414.3, ICD10: I25.10, I25.83 Check - ECHO - PERFLUTREN LIPID MICROSPHERES 1.1 MG/ML INJECTION IN NS 10 ML - SODIUM CHLORIDE 0.9 % (FLUSH) INJECTION SYRINGE - NM CARDIAC PERF STRESS/PHARM - REGADENOSON 0.4 MG/5 ML INTRAVENOUS SYRINGE - AMINOPHYLLINE 250 MG/10 ML INTRAVENOUS SOLUTION - METOPROLOL TARTRATE 5 MG/5 ML INTRAVENOUS SOLUTION - INSERT IV ([place]) - IV DISCONTINUE - [employer] EVENT MONITOR 8. First degree heart block - ICD9: 426.11, ICD10: I44.0 Check - NM CARDIAC PERF STRESS/PHARM - REGADENOSON 0.4 MG/5 ML INTRAVENOUS SYRINGE - AMINOPHYLLINE 250 MG/10 ML INTRAVENOUS SOLUTION - METOPROLOL TARTRATE 5 MG/5 ML INTRAVENOUS SOLUTION - INSERT IV ([place]) - IV DISCONTINUE - [employer] EVENT MONITOR 10. Mixed hyperlipidemia - ICD9: 272.2, ICD10: E78.2 cont - ROSUVASTATIN 20 MG TABLET With underlying abnormal EKG and having CAD will need a nuclear stress test since a treadmill stress test will not be diagnostic. I spent a total of 43 minutes on the date of the service which included preparing to see the patient, [id number] patient care, completing clinical documentation, performing a medically appropriate examination, counseling and educating the patient/family/caregiver and ordering medications, tests, or procedures. F/u extensive in a month Jared Robertson MD documented in this encounterUniversity Hospitals Tripoint Medical Center02-19-2024 Miscellaneous Notes* Telephone Encounter - Eliza Beckett MA - 04/05/2023 3:50 PM EST Patient came in and had blood work completed. Eliza Beckett MA * Telephone Encounter - Eliza Beckett MA - 04/02/2023 3:54 PM EST Left message for patient to contact office. Eliza Beckett MA * Telephone Encounter - Jared Robertson MD - 04/02/2023 3:29 PM EST Let patient know blood and urine testing order. * Telephone Encounter - Helga Paul 04/02/2023 1:56 PM EST Patient asking if he needs lab draw prior to upcoming ofice visit? Please advise and call patient. documented in this encounterUniversity Hospitals Tripoint Medical Center02-09-2024 Miscellaneous Notes* Telephone Encounter - Leah Hagan - 03/26/2023 3:04 PM EST Spoke with patient and scheduled first cycle. Chemo start email sent. Leah Hagan * Telephone Encounter - Alba Quiñonez - 03/26/2023 2:39 PM EST Patient called requesting to have Rituxan at [place] location. Please review and advise. documented in this encounterUniversity Hospitals Tripoint Medical Center02-09-2024 Miscellaneous Notes* Telephone Encounter - Ewa Antunez RN - 03/26/2023 1:42 PM EST Called pt per his mychart request Discussed areas for infusion and number to schedule Ewa Antunez RN BSN [facility] [place] documented in this encounterUniversity Hospitals Tripoint Medical Center02-09-2024 Miscellaneous Notes* Telephone Encounter - Ewa Antunez RN - 03/26/2023 1:06 PM EST Called pt to provide number to set up rituxan infusions Left office number on home and cell numbers as both generic vm Will send mychart Ewa Antunez RN BSN Neurologic [place] documented in this [facility]02-07-2024 Miscellaneous Notes* Telephone Encounter - Ginette Lopez RN - 03/24/2023 12:36 PM EST Pt returned call and notified. of need for appt. Given phone number and information. documented in this encounterUniversity Hospitals Tripoint [facility] Center02-02-2024 Miscellaneous Notes* Telephone Encounter - Mimi Solis PA-C - 03/19/2023 4:22 PM EST Spoke with patient on the phone, confirmed with name and date of . 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 Discussed need for prompt follow-up with neuromuscular, this consult has been placed and did discuss with Dr. Wharton, who performed the EMG and who is available to see the patient next week. Will have staff reach out to patient to schedule an appointment. Patient did express preference to a virtual appointment but is flexible in scheduling. Additionally, per recommendation of Dr. Wharton, will have laboratory studies obtained. Patient states he will have these obtained tomorrow. All questions were answered, however, expressed to patient that neuromuscular specialist will be able to further answer questions as this is their area of expertise. Patient agrees and understands. documented in this encounterUniversity Hospitals Tripoint Medical Center02-02-2024 History of Present illness Narrative* Maxwell Wharton DO - 03/19/2023 2:23 PM EST UNIVERSAL PROTOCOL / SAFETY CHECKLIST Procedure to be Performed: EMG Sign In: A Moment of CARE was completed. Personnel directly involved with the procedure wore the appropriate PPE (Personal Protective Equipment). Patient/Surrogate Stated/Verified: PATIENT VERIFIED(optional for EMERGENT procedures): Patient name, Date of , Relevant allergies, and The intended procedure Time Out Communication: Intended patient and procedure match the source documents. Correct side/site marked and visible. Sign Out: SIGN OUT (optional for EMERGENT procedures): Post-procedure follow-up management communicated and Plan of Care Visit completed when applicable. Paige Chamberlain DO documented in this encounterUniversity Hospitals Tripoint Medical Center12-07-2023 History of Present illness Narrative* Ligia Barrett RN - 01/21/2023 12:15 PM EST Discharge instructions given with verbal understanding voiced. Encouraged to call with any questions or concerns. * Suzette Aguilar MD - 01/21/2023 12:15 PM EST I have personally seen and examined Mr. [...] has no evidence of progressive disease today byhistory, exam or labs - his IgM is overall stable as is his hemoglobin. He has no indication for treatment. We have previously discussed that there are several options for treatment when required andcan include BTK inhibitor +/- CD20 antibody or [...] he has questions, concerns or issues. -KJM * Angela Russell APRN-CORWIN - 01/21/2023 12:15 PM EST History of Present Illness: Mr. Sorensen presents [...] the year. He reports he has occasional dryheaving episodes and following with GI. 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 She denies fever, night sweats, weight [...] seen by Dr. Kaden Calderon, at the [facility] which I believe is [facility] with [facility], as part of his workup in conjunction with seeing Dr. Calderon. He had a bone marrow biopsy on 03/04/2012 which was remarkable for several circumscribed interstitial lymphoid aggregates composed of small, round lymphocytes that were noted in the clot section. Immuno stains showed that aggregates were composed of CD3-positive T-cells predominantly and with fewer admixed QT97-kwieroty B cells. These aggregates accounted for less [...] platelets of 184,000 with 66% neutrophils, 31% lymphocytes,2% monocytes, and rare plasmacytoid lymphocytes at 1%. 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 Of note in addition to a normal CBC on 03/04/2012, he had a normal beta 2, LDH, cre atinines, calcium, and albumin. Review of Systems: A [...] Laterality: N/A; Surgeon: Jared Cline MD; Location: [facility] ENDOSCOPY COLONOSCOPY FOR COLORECTAL CANCER SCREENING HIGH [...] 2 Occupational History Occupation: 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 Overall continued todo well from [place] standpoint. He has no [...] questions, concerns or issues. documented in this encounterOSCoshocton [facility]12-07-2023 Instructions* Patient Instructions* Ligia Barrett RN - 01/21/2023 12:15 PM EST Primary Care Team Dr. Suzette Russell MATTRESS FINISHER- Certified Nurse Practitioner Esdras Barrett RN - Primary Nurse Karlene Tamez RN-Primary Nurse Sabrina Royal Patient Care Dialysis Social Worker [phone] Contact Numbers: Clinic Phone & Appointment Changes: [phone] Clinic For Medication Refills: If possible please notify us the beginning of the week for any Narcotic refills you may need if notcoming in that week for an appointment. We attempt to fill them as soon as they come in but Dr. Aguilar is only in the clinic on . Please call your pharmacy to verify when to car pick up driver. Allow one week for refills, please do not let your prescription run out. We will call them in to the pharmacy of your request, using the one listed in your chart if not specified differently. You will not be contacted about the refill except for any questions or concerns. Please call your pharmacy to verify when to car pick up driver. All Paperwork: Please allow up to 2 weeks for all disability, FMLA, etc to be filled out. Please specify what yourrequest is as to what and where we [...] Auto 1.13 0.83 - 3.57 K/uL Abs [place] Auto 0.51 0.24 - 0.93 K/uL Abs Eos Auto 0.20 0.00 - 0.48 K/uL Abs Baso Auto <0.04 0.00 - 0.09 K/uL documented in this encounterC[facility]-25-[facility]23 History of Present illness Narrative* Kevin Copeland MD - 01/09/2023 11:00 AM EST Chief Complaint Patient presents with: Balance: Not improving, ongoing issue HPI Adarsh Sorensen is a 82 year old male [...] average. Then last Wednesday he woke up andfelt like he was back to [facility]. He was given dicyclomine to take for a month by Dr. Quincy Gonzalez but he stopped taking it thinking that [...] W/BIOPSY SINGLE/MULTIPLE 11/22/2007 ENDOSCOPY UPPER-EGD/M24 LAP, REVISION MIKA FUNDOPLASTY 03/20/[address] Layla VORA SURG [...] 1 application to affected area once daily. Location:face albuterol HFA (PROAIR HFA) 90 mcg/actuation inhaler [...] Vaccine(1) due on 10/16/2022 Covid-19 Vaccine(4 - season) due on 10/16/2022 DTaP,Tdap,Td Vaccine(2 - [...] Past Histories independently gathered by the clinical pharmacy retail support specialist and the remaining scribed note accurately describes my personal service to the patient. Medical Decision Making: Problems: Moderate: Acute illness with systemic symptoms Data: Unique source(s) for external note(s) reviewed: 1 Unique test(s) ordered: 2 Medical Decision Making Level: 4 - Moderate Kevin Copeland MD The documentation for this note was completed by Billie Torres Ma acting as scribe for Kevin Copeland MD. January 09, 2023 10:54 AM. Billie Torres Ma documented in this encounterUniversity Hospitals Tripoint Medical Center11-24-2023 Miscellaneous Notes* Telephone Encounter - Jared Robertson MD - 01/08/2023 11:40 AM EST Noted. * Telephone Encounter - Jey Pablo LPN - 01/08/2023 10:16 AM EST Spoke with pt. No openings today. Pt does not want to go to ER. Advises that he was at [facility] ER 2-3 months ago and they did MRI and checked his carotid arteries and everything was normal. Pt advises hehad been doing better and had PT on and then on Sat he relapsed with sx as described below. Pt states sx weren't/aren't as bad as when he went to ER. Advises he was told to drink more d/t couldbe from dehydration. States he will drink more fluids. States bp has been ok. Yesterday it was 130/69. Did speak with Dr Copeland's office and was able to schedule pt with Dr Copeland tomorrow, 01/09, at 11 am. Pt agreeable to appointment. Pt aware that if sx change, become worse or anything else out of the ordinary to go to ER. Jey Pablo LPN * Telephone Encounter - Jared Robertson MD - 01/07/2023 11:32 AM EST Received message from PHYSICAL THERAPY that patient c/o of sudden change in his unsteadiness. Walking into things, having a hard time walking in a straight line, and even was extra cautious to take his time when changing positions. Patient needs seen VIELKA or directed to ER. documented in this encounterUniversity Hospitals Tripoint Medical Center11-21-2023 History of Present illness Narrative* Lino Rodriguez, PT - 01/05/2023 4:06 PM EST Program_ID:[id number] Access Code: [email or web address] URL: [email or web address] Date: 01-05-2023 Prepared By: Lino Rodriguez Program Notes Exercises - Supine Bridge - [...] 5 x weekly - 2 - 10 * Lino Rodriguez, PT - 01/05/2023 3:28 PM EST Episode Visit Count: 6 Therapist That Will Accept/Oversee The Plan Of Care: Lino Rodriguez PT. Start of Care Date: 11/16/22 Onset Date: 09/15/22 Plan of Care Certification Date: 12/31/22 Next Certification Due Date: 02/04/23 Patient Identified by Name and Date of : Yes REHABILITATION AND SPORTS THERAPY PHYSICAL THERAPY DISCONTINUANCE OF CARE PLAN OF CARE UPDATE: Assessment: Adarsh Sorensen is discontinued from Physical Therapy services due to goal achievement., maximal benefit., and sudden change in physical function . Patient was seen for 6 visits from Start of Care Date: 11/16/22 to 01/05/2023 and treatment included: Therapeutic exercise, Neuromuscular re-education, and Self-long term management. Sudden change in the patients physical [...] 01/05/23 Patient will report no falls. -Progressing. Yates in home exercise program. -MET Normal gait/stair [...] facilitated with verbal, visual, and tactile cuing. Self-Residential Management: 1: *Discussed patients sudden change in [...] 1530 Session Stop Time : 1610 Lino Rodriguez PT documented in this encounterUniversity Hospitals Tripoint Medical Center11-16-2023 History of Present illness Narrative* Lino Rodriguez, PT - 12/31/2022 4:19 PM EST Episode Visit Count: 5 Therapist That Will Accept/Oversee The Plan Of Care: Lino oRdriguez PT. Start of Care Date: 11/16/22 Onset Date: 09/15/22 Plan of Care Certification Date: 12/31/22 Next Certification Due Date: 02/04/23 Patient Identified by Name and Date of : Yes REHABILITATION AND SPORTS THERAPY PHYSICAL THERAPY PROGRESS REPORT PLAN OF CARE UPDATE: Assessment: Adarsh Sorensen demonstrates moderate improvement in overall balance. He has progressed toward goals. Patient continues to present with impairments in balance, gait, stair navigation, independence in exercise, overall function, and functional performance testing indicates risk for falls that interferewith stair negotiation, rising from a chair, walking [...] 01/05/23 Patient will report no falls. -Progressing. Yates in home exercise program. -MET Normal gait/stair [...] Patient to be seen for Therapeutic exercise (91263), Manual therapy (62458), Neuromuscular re-education (52435), Therapeutic activities (72293), Self-long term management (63098), Gait Training (34547), Patient/Family/Caregiver Education, Body Mechanics Training, Functional training, General Conditioning PLAN FOR NEXT VISIT: Discharge for home maintenance with higher-level strengthening exercises due to goal achievement. SUBJECTIVE: Pt. reports about the same consistent unsteady episodes; states 3-5 episodes a day. Anytime he gets up at night to walk or walks down the [place] at the office. Notes soreness with exercisesstill. Went to [facility] Wednesday and had trouble navigating stairs ivone. [...] (direct 1:1 contact & subjective taken.) 2: Gct-pa-isaaro: 2x10 without use of hands. 3: *Progress check and objective measures collected. 4: *Discussed current POC, overall objective findings and compared outcome measure scores collectedthis date vs. previous eval scores and overall [...] 1615 Session Stop Time : 1655 Lino Rodriguez PT documented in this encounterUniversity Hospitals Tripoint Medical Center10-26-2023 History of Present illness Narrative* Lino Rodriguez, PT - 12/10/2022 4:22 PM EDT Episode Visit Count: 3 Therapist That Will Accept/Oversee The Plan Of Care: Lino Rodriguez PT. Start of Care Date: 11/16/22 Onset Date: 09/15/22 Plan of Care Certification Date: 11/17/22 Next Certification Due Date: 12/22/22 Patient Identified by Name and Date of : Yes REHABILITATION AND SPORTS THERAPY PHYSICAL THERAPY TREATMENT NOTE ASSESSMENT: Adarsh Sorensen tolerated the session with fatigue, expected muscle soreness, and no issues. He demonstrated difficulty and increase in challenge with lateral walking on airex balance beam and forward airex pad step-ups. The patient will continue to benefit from ongoing skilled physical therapy to progress toward set goals. PLAN FOR NEXT VISIT: Progressions of balance; work on ezn-it-yeaer then proceeding to walk and navigate objects. SUBJECTIVE: Patient reports last session was a good workout, had about 1-2 days of soreness; statesnon-compliance with HEP this past week. States a couple unsteady episodes during walking following getting out of a chair, but not as bad as it was. Pain: Pain Pain Level: 0 Post Treatment [...] ups: 2x12 ea. leg, blue+green box. 4: Gga-kq-ehugrl: 2x10 without use of hands. 5: [place] Carry: 10#db each hand: 1x200 feet 6: *Education on the importance of HEP compliance. Skilled Intervention: Patient was educated in proper exercise technique and purpose for exercises. Skilled judgment was used in selection of appropriate interventions. Correct performance of therapeutic exercises was facilitated with verbal, visual, and tactile cuing. Neuromuscular Re-Education: 1: Plyo Bounce Back Tosses: 2x30, Feet Apart on Airex. 2: Plyo Bounce Back Tosses: 2x30, Feet Together on Airex. 3: Airex Step-Ups: [...] Time : 1615 Session Stop Time : 1654 Lino Rodriguez PT documented in this encounterUniversity Hospitals Tripoint Medical Center10-19-2023 History of Present illness Narrative* Lino Rodriguez, PT - 12/03/2022 6:04 PM EDT Episode Visit Count: 2 Therapist That Will Accept/Oversee The Plan Of Care: Lino Rodriguez PT. Start of Care Date: 11/16/22 Onset Date: 09/15/22 Plan of Care Certification Date: 11/17/22 Next Certification Due Date: 12/22/22 Patient Identified by Name and Date of : Yes REHABILITATION AND SPORTS THERAPY PHYSICAL THERAPY TREATMENT NOTE ASSESSMENT: Adarsh Sorensen tolerated the session with fatigue, expected [...] like I am getting back to normal recently, less soreness with the HEP this week. [...] ups: 2x10 ea. leg, blue+green box. 4: Oeq-gp-nyhndp: 2x10 without use of hands. 5: *Education [...] Ground: 4x30 2: Tandem Stance, EO, Ground: 4x20. 3: Feet Together, EO, Airex: 4x30 Skilled [...] 1800 Session Stop Time : 1840 Lino Rodriguez, PT documented in this encounterUniversity Hospitals Tripoint Medical Center09-14-2023 Miscellaneous Notes* Telephone Encounter - Billie Torres Ma - 10/29/2022 9:00 AM EDT Pt notified of results via App[employer]ist[employer]. Billie Torres Ma * Telephone Encounter - Jey Pablo LPN - 10/28/2022 11:23 AM EDT Left message for pt to contact office. Jey Pablo LPN * Telephone Encounter - Jey Pablo LPN - 10/28/2022 11:20 AM EDT ----- Message from Tanisha Garcia PA-C sent at 10/28/2022 10:52 AM EDT ----- Let pt know that his labs were normal. Continue as we discussed and try the Flonase. documented in this encounterUniversity Hospitals Tripoint Medical Center09-12-2023 Miscellaneous Notes* Telephone Encounter - Jey Pablo LPN - 10/27/2022 2:59 PM EDT Pt notified of Tanisha's message. Jey Pablo LPN * Telephone Encounter - Tanisha Garcia PA-C - 10/27/2022 2:47 PM EDT Let patient know I'm going to send in a nasal spray for him to try over the next couple weeks as well. Tanisha Garcia PA-C documented in this encounterUniversity Hospitals Tripoint Medical Center09-12-2023 History of Present illness Narrative* Tanisha Garcia PA-C - 10/27/2022 1:39 PM EDT Chief Complaint Patient presents with: balance issues HPI Adarsh Sorensen is a 81 year old male [...] W/BIOPSY SINGLE/MULTIPLE 11/22/2007 ENDOSCOPY UPPER-EGD/M24 LAP, REVISION MIKA FUNDOPLASTY 03/20/[address] Layla VORA SURG [...] Father other (schiophrenia) Sister doing ok since e;veronica Alzheimer's Disease Mother Patient Allergies ALLERGIES Allergen [...] 1 application to affected area once daily. Location:face albuterol HFA (PROAIR HFA) 90 mcg/actuation inhaler Inhale 2 Puffs as instructed every 6 hours as needed. lactulose (DUPHALAC, CONSTULOSE) 10 g/15 mL soln Take 30 mL by mouth once daily. Per Cardio Dr. Ortiz (Patient not taking: Reported on 09/18/2021 ) MEDICATION, NON-DATABASE Takes med for digestive problems but pt doesn't remember name (Patient nottaking: Reported on 06/13/2020 ) aspirin(ASPIR-81 81 MG [...] . Peripheral Pulses: Normal. Neurologic: neg julián hallpike. . Health Maintenance List Influenza Vaccine(1) due [...] THERAPY Tanisha Garcia PA-C documented in this encounterUniversity Hospitals Tripoint Medical Center09-12-2023 Miscellaneous Notes* Telephone Encounter - Billie Torres Ma - 10/27/2022 10:05 AM EDT Pt scheduled today with Tanisha Garcia to discuss PT order. * Telephone Encounter - Jared Robertson MD - 10/26/2022 3:52 PM EDT Patient will need office visit for documentation purposes for insurance coverage. * Telephone Encounter - Tracey Pelayo LPN - 10/26/2022 2:53 PM EDT Patient calling he had balance problem back in August and had been in [facility] overnight and was going to PT at [facility] few times. Patient said he felt good and stopped the PT. Patient said he is having the balance problem again and is calling for a Physical Therapy order. He is willing to go to specialty center for PT. Pending order needs diagnosis. Please advise documented in this encounterUniversity Hospitals Tripoint Medical Center08-21-2023 History of Present illness Narrative* Korina Aguilar APRN.MATTRESS FINISHER - 10/05/2022 3:12 PM EDT Chief Complaint No chief complaint on file. HPI Adarsh Sorensen is a 81 year old male [...] W/BIOPSY SINGLE/MULTIPLE 11/22/2007 ENDOSCOPY UPPER-EGD/M24 LAP, REVISION MIKA FUNDOPLASTY 03/20/[address] Layla VORA SURG [...] 1 application to affected area once daily. Location:face rosuvastatin (CRESTOR) 20 mg tablet Take 1 [...] problems but pt doesn't remember name (Patient nottaking: Reported on 06/13/2020 ) aspirin(ASPIR-81 81 MG [...] ICD9: 200.80, ICD10: C83.00 -Stable, follows at [facility] 8. Bilateral carotid artery stenosis - ICD9: [...] -Walks 3-4 times a week Korina Aguilar APRN.MATTRESS FINISHER documented in this encounterUniversity Hospitals Tripoint Medical Center07-19-2023 History of Present illness Narrative* Katherine Stauffer LPN - 09/02/2022 8:55 AM EDT Scan on 09/01/2022 1:40 PM by Provider, External, PA-C: CT Scan documented in this encounterUniversity Hospitals Tripoint Medical Center07-18-2023 Progress note Author Audi Esqueda [facility] September 01, 2022 1:54pm Note Date/Time September 01, 2022 8:16 am [facility] Medical Records Department [address] [place] [address] Progress Note - Hospitalist 09/01/22 0815 MR#: [id number] Acct: [id number] Name: ADARSH SORENSEN Rep #:[id number] 23 : 1940 81 From: Audi Esqueda DO PCP: Dr. Jared Robertson MD Status:ADM ROSE MARY Location: [place] [address] Reason for Visit Reason for Visit: Diagnoses Ataxia, unspecified (08/31/22) Personal history of other diseases of the circulatory system (08/31/22) Subjective Subjective Still feels unsteady. Objective Data Objective Data Vital Signs: Vital Signs Temp Pulse Resp BP Pulse Ox O2 Del Method 36.1 C L 51 L 16 137/81 H 94 Room Air 09/01/22 06:00 09/01/22 06:00 09/01/22 06:00 09/01/22 06:00 09/01/22 06:00 09/01/22 06:00 Oxygen Delivery Method Room Air Weight: 79.9 kg Body Mass Index (BMI) 24.2 Intake & Output: Intake and Output for Last 24 Hours 08/30/22 08/31/22 09/01/22 23:59 23:59 23:59 Intake Total 1360 / 1360 Balance 1360 / 1360 Lab / Micro Data 08/31/22 12:00 08/31/22 12:00 Labs: Laboratory Results - last 24 hr 08/31/22 12:00: WBC 5.6, RBC 4.30 L, Hgb 14.2, Hct 41.5, MCV 96.5 H, MCH 33.0 H,MCHC 34.2, RDW Std Deviation 44.3 H, RDW Coeff of Alvarez 12.5, Plt Count 150, MPV 10.1, Immature Gran % (Auto) 0.500, Neut % (Auto) 65.0, Lymph % (Auto) 21.0, [place] % (Auto) 9.8, Eos % (Auto) 3.2, Baso % (Auto) 0.5, Absolute Neuts (auto) 3.7, Absolute Lymphs (auto) 1.18, Nucleated RBC % 0, PT 12.8, INR 1.0, APTT 29.2, Sodium 136, Potassium 3.9, Chloride 104, Carbon Dioxide 29.0, Anion Gap 3 L, BUN 14, Creatinine 1.17, Estim Creat Clear Calc 54.35, Est GFR (MDRD) Af Amer77, Est GFR (MDRD) Non-Af 64, BUN/Creatinine Ratio 12.0, Glucose 102, Calcium 9.1, Troponin I High Sens 5 08/31/22 15:24: Troponin I High Sens 7 09/01/22 06:19: Triglycerides 61, Cholesterol 133, LDL Cholesterol 66, VLDL Cholesterol 12, HDL Cholesterol 55 Radiography Diagnostic Testing: Radiology Impression Brain CT 08/31/22 12:08 IMPRESSION: Chronic involutional changes of the brain, as noted. There are no acute findings. N.B. : The above Results were Read Back by Mikey Milton MD to Malika Rojas MD, and understanding confirmed on 08/31/2022 12:57:58 (ET). Electronically Signed: Mikey Milton MD at 12:59 EDT Reading Location ID and State: [id number] / Unknown , Service support , ADDENDUM: 08/31/22 1306 IMPRESSION: Chronic involutional changes of the brain, as noted. There are no acute findings. N.B. : The above Results were Read Back by Mikey Milton MD to Malika Rojas MD, and understanding confirmed on 08/31/2022 12:57:58 (ET). Electronically Signed: Mikey Milton MD at 12:59 EDT Reading Location ID and State: [id number] / Unknown , Service support , Head/Neck CTA 08/31/22 12:09 IMPRESSION: 1. Prominent kinking at the takeoff and first few centimeters of the right common carotid artery. This is of uncertain hemodynamic significance and highly unlikely to account for any acute symptoms. 2. Mild calcific atherosclerotic plaquing at the takeoffs of the bilateral internal carotid arteries without significant stenosis. 3. Additional atherosclerotic plaquing without significant stenosis noted in the cavernous segments of the bilateral internal carotid arteries. 4. No other occlusive lesion seen in the anterior circulation. 5. 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 The posterior circulation is otherwise widely patent. N.B. : The above Results were Read Back by Mikey Milton MD to Malika Rojas MD, and understanding confirmed on 08/31/2022 13:06:45 (ET). Electronically Signed: Mikey Milton MD at 13:13 EDT Reading Location ID and State: [id number] / Unknown , Service support , ADDENDUM: 08/31/22 1319 IMPRESSION: 1. Prominent kinking at the takeoff and first few centimeters of the right common carotid artery. This is of uncertain hemodynamic significance and highly unlikely to account for any acute symptoms. 2. Mild calcific atherosclerotic plaquing at the takeoffs of the bilateral internal carotid arteries without significant stenosis. 3. Additional atherosclerotic plaquing without significant stenosis noted in the cavernous segments of the bilateral internal carotid arteries. 4. No other occlusive lesion seen in the anterior circulation. 5. 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 The posterior circulation is otherwise widely patent. N.B. : The above Results were Read Back by Mikey Milton MD to Malika Rojas MD, and understanding confirmed on 08/31/2022 13:06:45 (ET). Electronically Signed: Mikey Milton MD at 13:13 EDT Reading Location ID and State: [id number] / Unknown , Service support , Rhythm Strip Rhythm Strip: Sinus bradycardia Rate: 53 Ectopy: None Physical Exam Const alert and no apparent distress HEENT head/scalp atraumatic Eyes Eyes Narrative: no nystagmus Resp normal respiratory effort, no retractions, no use of accessory muscles and clearto auscultation bilaterally Cardio regular rate, regular rhythm, S1 normal heart sound and S2 normal heart sound GI normal to inspection, nondistended, normoactive bowel sounds, soft to palpation,non-tender and non-distended Extremity normal to inspection Assessment & Plan Assessment/Plan (1) Ataxia: PLAN: Patient with unsteadiness when he walks. Evaluation for benign paroxysmalpositional vertigo was negative with negative lateral gaze for nystagmus and a negative Julián-Hallpike bilaterally. Orthostatic vitals have been ordered. MRI brain negative for acute CVA. Echo shows an EF 65% (2) History of carotid stenosis: PLAN: Noted kinking of the right common carotid on CTA. We will check duplex. Carotid duplex shows less than 50% bilaterally with tortuous right common carotid artery. (3) Bradycardia: PLAN: HR in 40s-50s, which what he has at home. Sinus espinoza. Pt states that he very active at baseline and work out 4-5 x week. PLAN: Plan Chronic condition * Abdominal aortic aneurysm * Anemia: Stable * Lymphoma: In remission. * Hyperlipidemia: Continue statin VTE prophylaxis: Low risk given current observation status. Charges/Coding Visit Charges Inpatient E&M: 00946 Subs Hosp L2 09/01/22 1352 <Electronically signed by Audi Esqueda DO> Cosigner Signature (if applicable): CC: ~ Signed [facility] Work Phone: [phone]) 392-330107-17-2023 History and physical note Author Audi Esqueda [facility] August 31, 2022 2:48pm Note Date/Time August 31, 2022 2:48 pm [facility] Medical Records Department [address] [facility] [place] [address] H&P Exam - Hospitalist 08/31/22 1443 MR#: [id number] Acct: [id number] Name: ADARSH SORENSEN Rep #:[id number] : 1940 81 From: Audi Esqueda DO PCP: Dr. Jared Robertson MD Status:ADM IN Location: [facility] [id number] HPI - General General Date of Admission: 08/31/22 Date of Service: 08/31/22 Chief Complaint: lightheadedness HPI Narrative ADARSH SORENSEN, is a 81 M who presents with feeling of lightheadedness. Symptoms began on the . He went to graduation democrat on the and thought that he might be dehydrated so was drinking plenty of fluids. Throughout the day yesterday, patient had initially fallen forward because he was lightheaded but was wobbling when he would walk. Patient has never experienced anything like this before. He denies any sensation of the room spinning. He has never had anything like this before. Patient presented to the emergency room and underwent a work-up. CTA showed kinking takeoff of the right common carotid artery. But no other acute process. [facility] Medical History AAA (abdominal aortic aneurysm) without rupture Anemia Arthritis Back pain Basal cell carcinoma (BCC) in situ of skin Blood disorder Cancer Cardiology follow-up encounter Difficulty swallowing Fatigue Former smoker Gout High cholesterol History of echocardiogram History of hiatal hernia History of IBS History of stress test Hyperlipidemia Intractable low back pain Leg cramps Lumbosacral strain Lymphoma Palpitations Pure hypercholesterolemia Shortness of breath Sinus bradycardia Wears glasses Home Medications aspirin 81 mg chewable tablet 81 mg PO DAILY HEART HEALTH 02/21/16 [History Last Taken 03/18/22] omeprazole 20 mg capsule,delayed release 40 mg PO DAILY ACID REFLUX 01/15/22 [History Last Taken 08/30/22] peg [id number] 1 %-0.2 %-0.2 % eye drops (Dry Eye Relief) 1 drp EACH EYE DAILY DRY EYE RELIEF 08/31/22 [History Last Taken 08/30/22] rosuvastatin 20 mg tablet 20 mg PO QHS CHOLESTEROL 08/31/22 [History Last Taken 08/29/22] Allergy/AdvReac Type Severity Reaction Status Date / Time No Known Allergies Allergy Verified 08/31/22 11:48 Family History Father Colon cancer Mother Alzheimers disease Brother Multiple sclerosis Surgical History aorto bi-common iliac stent graft (~11/2014) History of AAA (abdominal aortic aneurysm) repair History of cardiac catheterization History of cholecystectomy History of colonoscopy (~11/2021) History of esophagogastroduodenoscopy (EGD) (~11/2021) Status post laparoscopic Mika fundoplication Social History Smoking Status: Former smoker how long ago did patient quit smokin alcohol intake: current alcohol intake frequency: a few times a week Alcohol type: wine and hard liquor substance use type: does not use caffeine: Yes Type: coffee what type of physical activity do you participate in: none seatbelt use: always do you feel safe at home: Yes Vital Signs Vital Signs Vital Signs: 08/31/22 11:48 08/31/22 11:57 08/31/22 12:12 Temperature 36.7 C Temperature Source Temporal Pulse Rate 55 L Respiratory Rate 14 Respiratory Effort Normal Non-Labored Respiratory Pattern Normal Blood Pressure 140/69 H Blood Pressure Mean 92 Pulse Ox 98 Oxygen Delivery Method Room Air Room Air 08/31/22 12:51 08/31/22 14:20 Temperature 36.6 C Temperature Source Temporal Pulse Rate 52 L 58 L Respiratory Rate 16 17 Respiratory Effort Respiratory Pattern Blood Pressure 138/82 H 154/71 H Blood Pressure Mean 100 98 Pulse Ox 97 96 Oxygen Delivery Method Room Air Room Air Weight Weight: 80.9 kg Body Mass Index (BMI) 24.2 Physical Exam Const alert, oriented x3 and no apparent distress HEENT normocephalic and head/scalp atraumatic Eyes EOMs intact bilaterally Eyes Narrative: No nystagmus appreciated. Neck no lymphadenopathy Neck Narrative: No thyromegaly Resp normal respiratory effort, no retractions, no use of accessory muscles and clearto auscultation bilaterally Cardio regular rate, regular rhythm, S1 normal heart sound and S2 normal heart sound GI normal to inspection, nondistended, normoactive bowel sounds, soft to palpation,non-tender, non-distended and hepatosplenomegaly Extremity normal to inspection and full ROM Skin Skin Narrative: No rashes or sores Neuro oriented x3, CN's II-XII intact bilaterally, moves all extremities and no focal motor deficits Neuro Narrative: Julián-Hallpike performed and is negative bilaterally. Sensorium / Orientation: awake and alert Coordination / Balance: isalsn-gu-qxle test normal and ovep-om-eoze test normal Speech: speech normal Psych affect normal Results Lab / Micro Data Attestation: I reviewed the patient's lab results. 08/31/22 12:00 08/31/22 12:00 Labs: Laboratory Results - last 24 hr 08/31/22 12:00: WBC 5.6, RBC 4.30 L, Hgb 14.2, Hct 41.5, MCV 96.5 H, MCH 33.0 H,MCHC 34.2, RDW Std Deviation 44.3 H, RDW Coeff of Alvarez 12.5, Plt Count 150, MPV 10.1, Immature Gran % (Auto) 0.500, Neut % (Auto) 65.0, Lymph % (Auto) 21.0, [place] % (Auto) 9.8, Eos % (Auto) 3.2, Baso % (Auto) 0.5, Absolute Neuts (auto) 3.7, Absolute Lymphs (auto) 1.18, Nucleated RBC % 0, PT 12.8, INR 1.0, APTT 29.2, Sodium 136, Potassium 3.9, Chloride 104, Carbon Dioxide 29.0, Anion Gap 3 L, BUN 14, Creatinine 1.17, Estim Creat Clear Calc 54.35, Est GFR (MDRD) Af Amer77, Est GFR (MDRD) Non-Af 64, BUN/Creatinine Ratio 12.0, Glucose 102, Calcium 9.1, Troponin I High Sens 5 Rhythm Strip Rhythm Strip: Sinus bradycardia Rate: 53 Ectopy: None EKG Initial EKG: Attestation: I personally reviewed and interpreted this EKG as follows: EKG Rhythm Intrepretation: Sinus Bradycardia Radiology Impression Brain CT 08/31/22 12:08 IMPRESSION: Chronic involutional changes of the brain, as noted. There are no acute findings. N.B. : The above Results were Read Back by Mikey Milton MD to Malika Rojas MD, and understanding confirmed on 08/31/2022 12:57:58 (ET). Electronically Signed: Mikey Milton MD at 12:59 EDT Reading Location ID and State: [id number] / Unknown , Service support , ADDENDUM: 08/31/22 1306 IMPRESSION: Chronic involutional changes of the brain, as noted. There are no acute findings. N.B. : The above Results were Read Back by Mikey Milton MD to Malika Rojas MD, and understanding confirmed on 08/31/2022 12:57:58 (ET). Electronically Signed: Mikey Milton MD at 12:59 EDT Reading Location ID and State: [id number] / Unknown , Service support , Head/Neck CTA 08/31/22 12:09 IMPRESSION: 1. Prominent kinking at the takeoff and first few centimeters of the right common carotid artery. This is of uncertain hemodynamic significance and highly unlikely to account for any acute symptoms. 2. Mild calcific atherosclerotic plaquing at the takeoffs of the bilateral internal carotid arteries without significant stenosis. 3. Additional atherosclerotic plaquing without significant stenosis noted in the cavernous segments of the bilateral internal carotid arteries. 4. No other occlusive lesion seen in the anterior circulation. 5. 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 The posterior circulation is otherwise widely patent. N.B. : The above Results were Read Back by Mikey Milton MD to Malika Rojas MD, and understanding confirmed on 08/31/2022 13:06:45 (ET). Electronically Signed: Mikey Milton MD at 13:13 EDT Reading Location ID and State: [id number] / Unknown , Service support , ADDENDUM: 08/31/22 1319 IMPRESSION: 1. Prominent kinking at the takeoff and first few centimeters of the right common carotid artery. This is of uncertain hemodynamic significance and highly unlikely to account for any acute symptoms. 2. Mild calcific atherosclerotic plaquing at the takeoffs of the bilateral internal carotid arteries without significant stenosis. 3. Additional atherosclerotic plaquing without significant stenosis noted in the cavernous segments of the bilateral internal carotid arteries. 4. No other occlusive lesion seen in the anterior circulation. 5. 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 The posterior circulation is otherwise widely patent. N.B. : The above Results were Read Back by Mikey Milton MD to Malika Rojas MD, and understanding confirmed on 08/31/2022 13:06:45 (ET). Electronically Signed: Mikey Milton MD at 13:13 EDT Reading Location ID and State: [id number] / Unknown , Service support , Assessment & Plan Assessment/Plan (1) Ataxia: PLAN: Patient with unsteadiness when he walks. Evaluation for benign paroxysmalpositional vertigo was negative with negative lateral gaze for nystagmus and a negative [place]-Hallpike bilaterally. Orthostatic vitals have been ordered. Concern is for possible stroke. Patient undergo stroke work-up with an MRI of the brain, 2D echocardiogram, therapy evaluation. (2) History of carotid stenosis: PLAN: Noted kinking of the right common carotid on CTA. We will check duplex. PLAN: Plan Chronic condition * Abdominal aortic aneurysm * Anemia: Stable * Lymphoma: In remission. * Hyperlipidemia: Continue statin VTE prophylaxis: Low risk given current observation status. Charges/Coding Visit Charges Inpatient E&M: 95795 Init Hosp L3 08/31/22 1448 <Electronically signed by Audi Esqueda DO> Cosigner Signature (if applicable): CC: Dr. Audi Esqueda DO; Dr. Jared Robertson MD~ Signed [facility] Work Phone: [phone] 443-852007-17-2023 History of Present illness Narrative* Kathernie Stauffer LPN - 08/31/2022 3:02 PM EDT Scan on 08/31/2022 1:20 PM by Tangela Erazo PA-C: CT Scan Scan on 08/31/2022 1:25 PM by Tangela Erazo PA-C: CT Scan Scan on 08/31/2022 1:36 PM by Tangela Erazo PA-C: CT Scan Scan on 08/31/2022 2:12 PM by Tangela Erazo PA-C: Consultation - Emergency Medicine documented [facility] Discharge summary Author Malika Rojas [facility] August 31, 2022 2:00pm Note Date/Time August 31, 2022 12:1 8pm [facility] Medical Records Department [address] [place] [address] Emergency Department Summary 08/31/22 MR#: [id number] Acct: [id number] Name: ADARSH SORENSEN Rep #:[id number] : 1940 81 From: Malika Rojas MD PCP: Dr. Jared Robertson MD Status:REG ER Location: ED HPI History of Present Illness Chief Complaint: Dizziness Detail of Chief Complaint: Off balance and difficulty walking since Wednesday. Informant: patient Onset/Context/Timing Onset: Yesterday Context: - (Awoke with the symptoms. Was fine Wednesday night prior to going to bed.) Timing: Continuous Quality and Location: Positive for Difficulty with Ambulation; Negative for Right Facial Droop, Left Facial Droop, Right Face Paresthesia, Left Face Parasthesia, Right Arm Parasthesia, Left Arm Parasthesia, Right Leg Parasthesia,Left Leg Parasthesia, Left Arm Weakness, Right Leg Weakness, Left Leg Weakness, Slurred Speech, Expressive Aphasia or Receptive Aphasia Onset: Wednesday after waking up. Current Severity: Mild Maximum Severity: Mild Associated Symptoms Associated Symptoms: Negative for Headache, Nausea, Vomiting or Chest Pain Narrative Narrative: 81 year old male history of anemia prior AAA repair, lymphoma and known carotid stenosis around 50% diagnosed several years ago. States he been feeling fine. On Wednesday he went to a graduation democrat. When he woke up Wednesday he said he was feeling fine he went to get out of bed stumbled and fell. He said since that time he is having trouble walking. Says he is off balance. He denies any headache. He denies any room spinning or vertigo symptoms. No priorhistory of vertigo. No prior history of stroke or mini stroke. He denies any recent illness. Denies any trouble speaking, change in his vision or weakness to his upper or lower extremities. Prior similar symptoms: No Recent Illness/Hospitalization: No PFSH PFSH Medical History AAA (abdominal aortic aneurysm) without rupture Anemia Arthritis Back pain Basal cell carcinoma (BCC) in situ of skin Blood disorder Cancer Cardiology follow-up encounter Difficulty swallowing Fatigue Former smoker Gout High cholesterol History of echocardiogram History of hiatal hernia History of IBS History of stress test Hyperlipidemia Intractable low back pain Leg cramps Lumbosacral strain Lymphoma Palpitations Pure hypercholesterolemia Shortness of breath Sinus bradycardia Wears glasses Home Medications aspirin 81 mg chewable tablet 81 mg PO PRN PRN Headache 02/21/16 [History Last Taken 03/18/22] rosuvastatin 20 mg tablet 20 mg PO DAILY #90 tabs 06/18/20 [Rx Last Taken 03/20/22] omeprazole 20 mg capsule,delayed release 40 mg PO PRN PRN Indigestion 01/15/22 [History Last Taken 03/20/22] doxycycline hyclate 100 mg capsule 100 mg PO BID #14 caps 06/16/22 [Rx Last Taken Unknown] Allergy/AdvReac Type Severity Reaction Status Date / Time No Known Allergies Allergy Verified 08/31/22 11:48 Family History Father Colon cancer Mother Alzheimers disease Brother Multiple sclerosis Surgical History aorto bi-common iliac stent graft (~11/2014) History of AAA (abdominal aortic aneurysm) repair History of cardiac catheterization History of cholecystectomy History of colonoscopy (~11/2021) History of esophagogastroduodenoscopy (EGD) (~11/2021) Status post laparoscopic Mika fundoplication Social History Smoking Status: Former smoker how long ago did patient quit smokin alcohol intake: current alcohol intake frequency: a few times a week Alcohol type: wine and hard liquor substance use type: does not use caffeine: Yes Type: coffee what type of physical activity do you participate in: none seatbelt use: always do you feel safe at home: Yes ROS ROS ED ROS Narrative Denies recent illness. Review of Systems ROS Unobtainable: Denies due to encephalopathy Constitutional Constitutional ED: Denies chills or fever(s) Eyes Eyes: Denies blurry vision ENT ENT ED: Denies ear pain Cardiovascular Cardiovascular: Denies chest pain Respiratory/Chest Respiratory/Chest: Denies cough or dyspnea Gastrointestinal Gastrointestinal: Denies abdominal pain Genitourinary Genitourinary ED: Denies dysuria or hematuria Musculoskeletal Musculoskeletal: Denies arthralgias or back pain Integumentary Denies abscess Neurologic Neurologic: Denies headache(s), paresthesias or weakness Psychiatric Psychiatric: Denies anxiety Endocrine Endocrinology: Denies polydipsia Hematologic/Lymphatic Hematologic/Lymphatic: Denies easy bleeding or easy bruising Allergic/Immunologic Allergic/Immunologic ED: Denies mouth swelling or urticaria EXAM Physical Exam Narrative Exam Narrative: 81-year-old male no acute distress. Sitting upright in bed. Vital signs stableafebrile. He is bradycardic. However his blood pressure is 140/69. No one else present in the room. H EENT exam normal. Pupils round reactive light. Extra motions intact. Normal speech. No facial droop. Neck nontender. Lungs are clear. Heart regular rhythm. Rate in the 50s. Bradycardic. No murmur. Chest wall nontender. Back nontender. Abdomen soft nontender. No peritoneal signs. Moving all 4 extremities. 5 out of 5 rn cardiac rehab strength bilaterally. Dorsi plantarflexion intact. Neurologically he is awake and alert. Answering questions following commands. While sitting in bed he has no neurological findings. He is awake. He is alert. He is answering questions. He has normalspeech. Extraocular motions are intact. No facial droop. Normal rn cardiac rehab strengthboth hands equal and symmetrical. Normal dorsi plantarflexion. Normal fingertip to nose. Normal jnpa-wi-napc. Negative Hallpike. Const Vital Signs: 08/31/22 11:48 08/31/22 11:57 08/31/22 12:12 Temperature 98.1 F Temperature Source Temporal Pulse Rate 55 L Respiratory Rate 14 Respiratory Effort Normal Non-Labored Respiratory Pattern Normal Blood Pressure 140/69 H Blood Pressure Mean 92 Pulse Ox 98 Oxygen Delivery Method Room Air Room Air 08/31/22 12:51 Temperature Temperature Source Pulse Rate 52 L Respiratory Rate 16 Respiratory Effort Respiratory Pattern Blood Pressure 138/82 H Blood Pressure Mean 100 Pulse Ox 97 Oxygen Delivery Method Room Air Positive well nourished and well developed; Negative for obese, cachectic, contractures or unkempt Constitutional Narrative: Ear exams are unremarkable. TMs are normal. No wax. Canals are normal. General Appearance ED: well developed and NAD; Negative for unkempt, cachectic or contractures Nutritional Appearance: Negative for cachectic or obese HEENT Reports TM's clear and moist mucous membranes; Denies dry mucous membranes Negative for atraumatic or trauma Nose: Negative for other Tympanic Membrane ED: Yes TM's clear Mouth ED: No dry mucous membranes Mouth: No dry mucous membranes Eyes PERRL and EOMs intact bilaterally General Eye ED: Negative for pale conjunctiva or scleral icterus Neck no lymphadenopathy, supple and no JVD General: Negative for tenderness Thyroid: Negative for other Chest Wall inspection of chest normal and palpation of chest normal Chest: Negative for other Resp normal respiratory effort and clear to auscultation bilaterally Effort and Inspection: Negative for retractions Auscultation: Negative for rales, rhonchi or wheezes Cardio no murmurs Rate: bradycardia; Negative for regular rate Rhythm: regular rhythm GI normal to inspection, nondistended, normoactive bowel sounds, soft to palpation,non-tender, non-distended and no masses Inspection: Negative for abdominal distention Auscultation: normoactive bowel sounds Palpation: Negative for tender or guarding Bladder / Kidney Exam: No other Back/Spine no CVA tenderness General Back: Negative for CVA tenderness Cervical Spine: Negative for cervical spine tenderness Thoracic Spine / Upper Back: Negative for thoracic spinal tenderness Lumbar Spine / Lower Back: Negative for lumbar spinal tenderness Extremity normal to inspection General Extremety ED: Negative for deformity, edema or tenderness General Extremity: Negative for deformity or edema Neuro oriented x3, CN's II-XII intact bilaterally and no sensory deficits noted Sensorium / Orientation: alert, oriented to person, oriented to place and oriented to time; Negative for orientation impaired, confused, lethargic or stuporous Motor Exam: strength 5/5 throughout Psych mental status grossly normal Appearance: Negative for unkempt Attitude: No agitated Mood & Affect: Negative for depressed, anxious or tearful Attention / Concentration: Negative for other Skin no wounds General Skin Exam: Negative for jaundice Lesions: no lesions Rashes: no rashes Trauma: Negative for abrasion or laceration NIHSS NIHSS Initial: 1a Level of Consciousness: 0 1b LOC Questions (Score 2 if aphasic/stupor): 0 1c LOC Commands (Only score 1st attempt): 0 2 Best Gaze (If aphasic, use reflexive mvmts.): 0 3 Visual: 0 4 Facial Palsy: 0 5 Motor Arm Right (UN = amputation/fusion): 0 5 Motor Arm Left: 0 6 Motor Leg Right: 0 6 Motor Leg Left: 0 7 Limb ataxia (Only + if out of proportion): 0 8 Sensory (Aphasia/stupor=0 or 1, coma=2): 0 9 Best Language: 0 10 Dysarthria (mute, coma=2, intubated=UN): 0 11 Extinction and Inattention (only scored if +): 0 Total Score: 0 MDM MDM MDM Narrative Medical decision making narrative: 81-year-old male was fine on Wednesday woke up on Wednesday and had difficulty walking with loss of balance. My concern is a possible stroke. His NIH Embeda is normal. 0. We have not attempted a walking yet. Be placed through the stroke protocol. I will get a CTA of his head neck. He does not meet criteria due to the timing for tPA. Repeat exam at 1:56 PM patient doing well. His exam is unchanged I did get him up to walk him and he also walked to the bathroom he definitely has an abnormal gait. He has to really concentrate on walking he walks slow and deliberately and times falls off to the left. He is able to ambulate however. I will speak to the hospitalist about admission and further testing for possible stroke. I suspect this patient will need an MRI. I discussed all this with the patient iscomfortable with the plan. History & Record Review Discussion w/independent historian: Patient Additional record(s) reviewed:: Prior inpatient record, Prior outpatient record,Prior ED visit and Prior labs Lab Data Attestation: I reviewed the patient's lab results. Lab results narrative: CBC is unremarkable. White count of 5.6. H&H 14 and 41. Platelets of 150. PT/INR of 12 and 1. Electrolytes unremarkable gap of 3. Normal BUN and creatinine. Glucose 102. Troponin 5. CAT scan and CTA of the head neck showed chronic changes no acute process. No acute bleed or stroke. Discussed with the radiologist. Labs: Laboratory Results - last 24 hr 08/31/22 12:00 WBC 5.6 RBC 4.30 L Hgb 14.2 Hct 41.5 MCV 96.5 H MCH 33.0 H MCHC 34.2 RDW Std Deviation 44.3 H RDW Coeff of Alvarez 12.5 Plt Count 150 MPV 10.1 Immature Gran % (Auto) 0.500 Neut % (Auto) 65.0 Lymph % (Auto) 21.0 [place] % (Auto) 9.8 Eos % (Auto) 3.2 Baso % (Auto) 0.5 Absolute Neuts (auto) 3.7 Absolute Lymphs (auto) 1.18 Nucleated RBC % 0 PT 12.8 INR 1.0 APTT 29.2 Sodium 136 Potassium 3.9 Chloride 104 Carbon Dioxide 29.0 Anion Gap 3 L BUN 14 Creatinine 1.17 Estim Creat Clear Calc 54.35 Est GFR (MDRD) Af Amer 77 Est GFR (MDRD) Non-Af 64 BUN/Creatinine Ratio 12.0 Glucose 102 Calcium 9.1 Troponin I High Sens 5 Radiography Diagnostic Testing: Clinical Impression(s) from Imaging Studies Brain CT 08/31/22 12:08 IMPRESSION: Chronic involutional changes of the brain, as noted. There are no acute findings. N.B. : The above Results were Read Back by Mikey Milton MD to Malika Rojas MD, and understanding confirmed on 08/31/2022 12:57:58 (ET). Electronically Signed: Mikey Milton MD at 12:59 EDT Reading Location ID and State: [id number] / Unknown , Service support , ADDENDUM: 08/31/22 1306 IMPRESSION: Chronic involutional changes of the brain, as noted. There are no acute findings. N.B. : The above Results were Read Back by Mikey Milton MD to Malika Rojas MD, and understanding confirmed on 08/31/2022 12:57:58 (ET). Electronically Signed: Mikey Milton MD at 12:59 EDT Reading Location ID and State: [id number] / Unknown , Service support , Head/Neck CTA 08/31/22 12:09 IMPRESSION: 1. Prominent kinking at the takeoff and first few centimeters of the right common carotid artery. This is of uncertain hemodynamic significance and highly unlikely to account for any acute symptoms. 2. Mild calcific atherosclerotic plaquing at the takeoffs of the bilateral internal carotid arteries without significant stenosis. 3. Additional atherosclerotic plaquing without significant stenosis noted in the cavernous segments of the bilateral internal carotid arteries. 4. No other occlusive lesion seen in the anterior circulation. 5. 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 The posterior circulation is otherwise widely patent. N.B. : The above Results were Read Back by Mikey Milton MD to Malika Rojas MD, and understanding confirmed on 08/31/2022 13:06:45 (ET). Electronically Signed: Mikey Milton MD at 13:13 EDT Reading Location ID and State: [address]2 / Unknown , Service support , ADDENDUM: 08/31/22 1319 IMPRESSION: 1. Prominent kinking at the takeoff and first few centimeters of the right common carotid artery. This is of uncertain hemodynamic significance and highly unlikely to account for any acute symptoms. 2. Mild calcific atherosclerotic plaquing at the takeoffs of the bilateral internal carotid arteries without significant stenosis. 3. Additional atherosclerotic plaquing without significant stenosis noted in the cavernous segments of the bilateral internal carotid arteries. 4. No other occlusive lesion seen in the anterior circulation. 5. 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 The posterior circulation is otherwise widely patent. N.B. : The above Results were Read Back by Mikey Milton MD to Malika Rojas MD, and understanding confirmed on 08/31/2022 13:06:45 (ET). Electronically Signed: Mikey Milton MD at 13:13 EDT Reading Location ID and State: [id number] / Unknown , Service support , Rhythm Strip Rhythm Strip: Sinus bradycardia Rate: 53 Ectopy: None EKG Initial EKG: Attestation: I personally reviewed and interpreted this EKG as follows: Interpretation: Sinus Rhythm and Sinus Bradycardia Comments: Sinus bradycardia rate of 53 no acute signs of KS, ischemia or dysrhythmia otherwise. Discharge Plan Triage Chief Complaint: Dizziness ED Provider: Malika Rojas Dx/Rx/DC Orders Clinical Impression: Ataxia, History of carotid stenosis Prescriptions: No Action omeprazole 20 mg capsule,delayed release(DR/EC) 40 mg PO PRN PRN (Reason: Indigestion) doxycycline hyclate 100 mg capsule 100 mg PO BID Qty: 14 0RF aspirin 81 MG tablet,chewable 81 mg PO PRN PRN (Reason: Headache) rosuvastatin 20 mg tablet 20 mg PO DAILY Qty: 90 3RF Primary Care Provider: Jared Robertson Referrals: Jared Robertson MD [Primary Care Provider] - Disposition Disposition: Acute Care [facility] What to do if you have Problems For any increased pain, shortness of breath, bleeding, nausea or vomiting, chestpain, or any unexpected problems, contact your Primary Care Provider. Call [facility] ([phone]) or report to the closest Emergency Room. Call 911 if necessary. 08/31/22 1400 <Electronically signed by Malika Rojas MD> Cosigner Signature (if applicable): CC: Dr. Jared Robertson MD ~ Signed [facility] Work Phone: 1(866) 298-495807-17-2023 History of Present illness Narrative* Sabi To PA-C - 08/31/2022 11:13 AM EDT This note was created using HaveMyShiftter. Subjective Adarsh Sorensen is a 81 year old male. [...] 1 application to affected area once daily. Location:face 60 g 1 rosuvastatin (CRESTOR) 20 mg [...] problems but pt doesn't remember name (Patient nottaking: Reported on 06/13/2020 ) aspirin(ASPIR-81 81 MG [...] W/BIOPSY SINGLE/MULTIPLE 11/22/2007 ENDOSCOPY UPPER-EGD/M24 LAP, REVISION MIKA FUNDOPLASTY 03/20/[address] Layla VORA SURG [...] ear exam here, recommended further evaluation at [facility] ED. Patient will go by private vehicle, declined squad. Sabi To PA-C documented in this encounterUniversity Hospitals [facility]05-04-2023 History of Present illness Narrative* Eliza Beckett MA - 06/18/2022 12:25 PM EDT Scan on 06/16/2022 4:32 PM by External Provider, JOELC: Consultation - GI Eliza Beckett MA documented in this encounterUniversity Hospitals Tripoint [facility] Center04-24-2023 History of Present illness Narrative* Eliza Beckett MA - 06/08/2022 1:52 PM EDT Scan on 06/05/2022 6:39 AM by External Provider: Consultation - GI Scan on 06/05/2022 7:13 AM by External Provider: Colonoscopy Scan on 06/05/2022 7:14 AM by External Provider: Colonoscopy Eliza Beckett MA documented in this encounterUniversity Hospitals Tripoint Medical Center04-21-2023 Procedure [facility]04-21-2023 Procedure [facility]02-27-2023 History of Present illness Narrative* Eliza Beckett MA - 04/13/2022 3:44 PM EST Scan on 04/09/2022 3:45 PM by External Provider: Consultation - General Surgery Eliza Beckett MA documented in this encounterUniversity Hospitals Tripoint Medical Center02-21-2023 Miscellaneous Notes* Telephone Encounter - Tracey Pelayo LPN - 04/07/2022 4:06 PM EST Patient returned call and went over results, notes from Tanisha STEPHENS with understanding. * Telephone Encounter - Ailyn Roque LPN - 04/07/2022 8:44 AM EST Left message to call office on pt's cell phone. Attempted to call pt's cell phone & it was a fast busy. 04/07/2022 8:44 AM. Ailyn Roque LPN * Telephone Encounter - Tanisha Garcia PA-C - 04/07/2022 7:44 AM EST Let patient know that the rest of his labs are all normal. Tanisha Garcia PA-C documented in this encounterUniversity Hospitals Tripoint Medical Center02-20-2023 Instructions* Patient Instructions* Jared Robertson MD - 04/06/2022 3:31 PM EST Consider getting the shingrix vaccine for the prevention of shingles from a local pharmacy documented in this encounterUniversity Hospitals Tripoint Medical Center02-20-2023 History of Present illness Narrative* Jared Robertson MD - 04/06/2022 2:48 PM EST Medicare Yearly Visit Medical B eligibilty date 11/15/2005 Date of last exam 03/29/2021 PAST MEDICAL HISTORY PAST MEDICAL HISTORY Diagnosis Date AAA (abdominal aortic aneurysm) (HCC) Abdominal pain, left upper quadrant Allergic rhinitis, cause unspecified Benign neoplasm of colon Bronchitis, not specified as acute or chronic Cardiac dysrhythmia, unspecified Coronary atherosclerosis of unspecified type of vessel, [place] or graft Degeneration of lumbar or lumbosacral [...] No Sexual activity: Yes Partners with: Female Adarsh walks 4-5 times a week for 1-2 miles. He watches his diet for sodium, low fat and low cholesterol most of the time. List of current specialists seen: Dr. Aguilar ([facility]), Torito Carbone (Vascular) Ashish Carbone (ortho) Dr. Bright (gastro) Dr. Ortiz (cardio) End of Live Planning discussed including patients advanced directive wishes: Yes I am willing to follow Adarsh's advanced directives. Depression screen He in the [...] bars in the bathroom, lack of handrails onthe stairs or have poor lighting? No Hearing Evaluation: normal PHYSICAL EXAM BP 118/74 (BP Site: Right Arm, BP Position: Sitting, BP Cuff Size: Regular Adult) Pulse (!) 50 Resp 16 Ht 181.6 cm (5' 11.5) Wt 80.7 kg (178 lb) BMI 24.48 kg/m Alert and oriented X 3: YES Body mass index is 24.48 kg/m . See below ASSESSMENT/PLAN: 81 year old male The following prevention plan was discussed during the office visit and provided to the patient: See below Jared Robertson MD Chief Complaint Patient presents with: Medicare Wellness Exam HPI Adarsh Sorensen is a 81 year old male who presents here today for Medicare Annual Visit. Patient with Hx of AAA, Carotid artery disease, CAD, GERD, funez's, elevated fasting blood sugar,Hyperlipidemia, Waldenstrom's macroglobulinemia, Anemia, thrombocytopenia, allergic Rhinitis, insomnia, [...] problems but pt doesn't remember name (Patient nottaking: Reported on 06/13/2020 ) aspirin(ASPIR-81 81 MG [...] 50 Resp 16 Ht 181.6 cm (5' 11.5) Wt 80.7 kg (178 lb) BMI 24.48 [...] symmetric. Sensation to light touch and crainal nerves2-12 intact.. Genitalia: Normal, Penis normal. No urethral [...] Abs Lymph 1.00 - 4.00 k/uL 1.16 [place]% % 8.5 Abs [place] <0.87 k/uL 0.45 Eosin% % 4.2 Abs Eosin <0.46 k/uL 0.22 Baso% % 0.8 Abs Baso <0.11 k/uL 0.04 Immature Gran % % 0.2 IMMATURE GRANS (ABS) <0.10 k/uL <0.03 NRBC /100 WBC 0.0 Absolute nRBC <0.01 k/uL <0.01 DTYPE Auto Color Yellow Yellow Clarity Clear Clear Glucose, Urine Trace, Negative Negative Bilirubin, Urine Negative Negative Ketones, Urine Trace, Negative Negative Specific [place], Ur 1.005 - 1.030 1.019 Hemoglobin/Blood,Ur Negative, [...] which included preparing to see the patient, [id number] patient care, completing clinical documentation, performing a medically appropriate examination, counseling and educating the patient/family/caregiver and ordering medications, tests, or procedures. Jared Robertson MD documented in this encounterUniversity Hospitals Tripoint Medical Center02-08-2023 History of Present illness Narrative* Eliza Beckett MA - 03/25/2022 10:44 AM EST Scan on 03/23/2022 11:58 AM by External Provider: EGD Scan on 03/23/2022 1:20 PM by External Provider: GI documented in this encounterUniversity Hospitals Tripoint Medical Center02-06-2023 Chief complaint+Reason for visit Narrative* Chief Complaint LAP MIKA 2/6 LAP TOUPET PROCEDURE LAP TOUPET PROCEDURE 2 WK FU ATAXIA, R/O STROKE Reason for Visit GERD (gastroesophage al reflux disease) Flatulence/gas pain/belching Alternating constipation and diarrhea Ataxia History of carotid stenosis [facility] Work Phone: 1(833) 671-259902-06-2023 Chief complaint+Reason for visit Narrative * Chief Complaint LAP MIKA 2/6 LAP TOUPET PROCEDURE LAP TOUPET PROCEDURE 2 WK FU DIZZINESS ATAXIA, R/O STROKE Dizziness (cardiology) Reason for Visit GERD (gastroesophage al reflux disease) Flatulence/gas pain/belching Alternating constipation and diarrhea Ataxia Bradycardia History of carotid stenosis [facility] Work Phone: 1(647) 133-860802-06-2023 Procedure [facility] 03-23-2022 Procedure [facility]02-06-2023 History and physical note Author Dr. Rich [facility] March 23, 2022 7:38am Note Date/Time March 23, 2022 6 :40am [facility] Medical Records Department [address] [place] [id number] History & Physical Exam 03/23/22637 MR#: [id number] Acct: [id number] Name: ADARSH SORENSEN Rep #:[id number] 30 : 1940 81 From: Maxwell Rich MD PCP: Dr. Jared Robertson MD Status:[facility] Location: [place] [address] History and Physical Date of Admission: 03/23/22 Chief Complaint: discuss results and surgery/update H&P Is patient in pain?: No Allergies No Known Allergies Allergy (Verified 02/19/22 14:34) Medications aspirin 81 mg chewable tablet 81 mg PO DAILY@0800 HEART 02/21/16 [History Confirmed 01/15/22] rosuvastatin 20 mg tablet 20 mg PO DAILY #90 tabs 06/18/20 [Rx Confirmed 01/15/22] omeprazole 20 mg capsule,delayed release 40 mg PO DAILY GERD 01/15/22 [History] [facility] Medical History? AAA (abdominal aortic aneurysm) without rupture Anemia Arthritis Back pain Basal cell carcinoma (BCC) in situ of skin Blood disorder Cancer Cardiology follow-up encounter Chest pain Fatigue Former smoker Gout High cholesterol History of echocardiogram History of hiatal hernia History of IBS History of stress test Hyperlipidemia Intractable low back pain Leg cramps Lumbosacral strain Lymphoma Palpitations Pure hypercholesterolemia Shortness of breath Sinus bradycardia Unable to ambulate Wears glasses Surgical History? aorto bi-common iliac stent graft (~11/2014) History of AAA (abdominal aortic aneurysm) repair History of cardiac catheterization History of cholecystectomy History of colonoscopy (~11/2021) History of esophagogastroduodenoscopy (EGD) (~11/2021) Family History? Father Colon cancerMother?? Alzheimers diseaseBrother Multiple sclerosis Social History? Smoking Status:? Former smoker how long ago did patient quit smoking:? 1973 alcohol intake:? current alcohol intake frequency: a few times a week Alcohol type: wine and hard liquor substance use type:? does not use caffeine:? Yes Type: coffee what type of physical activity do you participate in:? none seatbelt use:? always do you feel safe at home:? Yes HPI HPI HPI: 81-year-old female with a very long-term history of hiatal hernia and reflux disease.? 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 I started him on sucralfate a gram twice daily at his most recent visit was January 15, 2022.? I had remotely assisted him with a laparoscopic cholecystectomy and discussed with him hernia repair at that setting as well.? He is too uncomfortable at night and cannot raise the head of his bed so he simply does not eat after 6 PM nightly.? I obtained a barium swallow on him on January 19, 2022 showing a small sliding out of hernia with reflux disease.? There is evidence of a previous endoluminal stent graft in the infrarenal abdominal aorta.? There is chronic elevation of the right hemidiaphragm.? He had esophageal manometry on January 22, 2022 10 swallows were analyzed there was felt to be normal swallow pressures and normal LES relaxation with good bolus food clearance.? A normal study.? The summary of his referral from Dr. Danny Mathew and CONNIE Perez is as follows Discussion today the patient continues to have reflux problems.? He claims that it affects the type of foods he eats he does not eat fried food.? Tight effects the time that he eats.? He specifically complains that if he lies supine that he will feel a water brash dysphagia for reflux all the way up to his mouth.? As noted below he is otherwise enjoying a very high quality of life 81-year-old gentleman is being referred by CONNIE Perez for surgical consultation regarding possible hiatal hernia repair.? A written copy of my surgical consult and recommendations will return to her. It is of note that August 2020 he had a cardiac stress test per Dr. Kaden Ortiz 1.? Rest and stress SPECT Cardiolite nuclear imaging demonstrate relative uniform tracer uptake and myocardial perfusion appearing within normal limits. 2.? The gated Cardiolite study reports an LVEF of 75%. I report the patient's colon prep was poor and he is rescheduled in the future to have a repeat attempt at colonoscopy as well as gastroenterology intervention regarding anal stenosis. Her synopsis is as follows ADARSH SORENSEN, is a 81 M who presents to the office today for discussion of EGD and colonoscopy findings.? Testing was indicated for chronic nausea, chronic acid reflux, hiatal hernia, alternating diarrhea and constipation.? On EGD he was found to have a large hiatal hernia, esophageal stenosis which Dr. Mathew dilated; negative H. pylori, negative Funez's.? Dr. Mathew recommended he consider fundoplication for the large hiatal hernia.? On colonoscopy, he has anal stenosis, redundant colon, the prep was poor, no pathologic change on biopsy in the sigmoid colon.? Dr. Mathew recommends dilation of the anal stenosis.? Approximately 5 years ago his previous airport driver performed an anal cut which helped with lower GI symptoms for about 6 months.? He also recommends repeating colonoscopy in 6 months because the bowel prep was poor.? Patient tried Sutab prep but still had difficulty with the amount of fluid required. He has chronic acid reflux and regurgitation, this often feels like nausea, no vomiting.? Swallowing is better since the endoscopy.? He can only eat very small meals, has to stop eating hours before he reclines, cannot tolerate fried foods.? He is interested in considering surgery for the large hiatal hernia.? Bowels never feel like they are fully evacuated, but he has frequent watery stools. Has tried stool softener but made constipation worse. Drinks prune juice every morning to help with BM. Too much fiber increases constipation. Lots of gas and belching, and some bloating. FH colon cancer, father age 78. 11/25/21 EGD and Colonoscopy Impression: ? - Benign-appearing esophageal stenosis. Dilated. ? - Z-line irregular, 40 cm from the incisors. ? Biopsied. ? - Large hiatal hernia. ? - Erythematous mucosa in the antrum. Biopsied. ? - No gross lesions in the second portion of the ? duodenum. Impression: ? - Preparation of the colon was poor. ? - Anal canal stenosis found on perianal exam. ? - Redundant colon. ? - Congested mucosa in the sigmoid colon. ? Biopsied. ? - Stool in the rectum, in the sigmoid colon, in ? the transverse colon, at the hepatic flexure ? and in the cecum. ? - The examined portion of the ileum was normal. MICROSCOPIC DIAGNOSIS A.? Gastric antrum, biopsy: ?Chronic gastritis. ?See comment. Negative H pylori B.? Distal esophagus, biopsy: ?Gastroesophageal junctional mucosa with mild chronic inflammation. ?Focal changes of reflux. ?No evidence of goblet cell metaplasia. ?See comment. C.? Sigmoid colon, biopsy: ?No pathologic change Referring Dr. Delgado Friend's upper endoscopy note of November 25, 2021 suggest that the patient had a intrinsic stenosis approximately 21 to 22 cm from the incisors moderately severe 3 cm in length.? Dilatation was performed with a savory dilator to 57 Turkmen.? There appeared to be complete resolution of the luminal narrowing.? The Z-line was irregular and found at 40 cm from the incisors.? Large hiatal hernia was present. January 19, 2022 STUDY:? AIR CONTRAST UPPER GI SERIES and esophagram. REASON FOR EXAM:? Male, 81 years old.? K44.9 - Diaphragmatic hernia without obstruction or gangrene FLUOROSCOPY TIME (if supplied): (48 seconds) minutes/seconds. TECHNIQUE:? SINGLE CONTRAST AND AIR CONTRAST FLUOROSCOPIC IMAGES.? 22 images were obtained. COMPARISON:? None. FINDINGS: The cervical esophagus demonstrates normal motility without aspiration. There is no stricture or extrinsic mass effect.? No intraluminal polypoid mass is identified. The thoracic esophagus distends well without stricture or mucosal fold thickening.? No mucosal ulcerations are identified.? There is no extrinsic mass effect.? There are no diverticula. Small sliding hiatal hernia with gastroesophageal reflux.? The patient ingest a 12 mm tablet of barium without any difficulty. The stomach distends well without mucosal fold thickening or mucosal ulceration.? There is no intraluminal mass.? The duodenal bulb is freely distensible without deformity or ulceration.? The duodenal sweep is normal in position and caliber. Endoluminal stent grafting of the infrarenal abdominal aorta is visualized. Elevation of the right hemidiaphragm. RAD/Upper GI w/BA Swallow IMPRESSION: Small sliding hiatal hernia with gastroesophageal reflux. ? Electronically Signed: Pacheco Brooks MD at 12:36 EST , ROS General General: No weight change, appetite, fatigue, colon cancer or breast cancer HEENT HEENT: Yes eye surgery; No difficulty swallowing, eye injury, swollen glands or hoarseness Endo Endocrine: No thyroid disease, diabetes mellitus, thyroid cancer, Hair loss, heat intolerance or cold intolerance Skin Skin: No rash or changing moles Breast Breast: No left breast lump, right breast lump, nipple discharge, breast pain, abnormal mammogram, abnormal US or breast enlargement Musc Musculoskeletal: Yes rheumatoid arthritis; No back problems, arthritis, gout or joint pain Cardio Cardiovascular: Yes heart stent; No murmur, pacemaker, heart disease, atrial fibrillation, high blood pressure, heart attack, palpitations, shortness of breat with exertion or chest pain Additional Details: Aortic stent Psych Psychiatric: No depression, anxiety or hearing voices Resp Respiratory: No shortness of breath, Yes sleep apnea, No cough, No COPD, No asthma, No emphysema and No wheezing Gastro Gastrointestinal: Yes nausea or vomiting and Yes blood in stool Juma Hematologic: No blood thinners, Yes blood disorders, No bleeding, No anemia and No blood clots Additional Details: lymphoma Exam Const General: cooperative, healthy appearing, comfortable and no acute distress [facility] Head: normal to inspection Eyes General: appearance normal, both eyes and all related structures Neck Neck: normal visual inspection Chest Chest palpation & inspection: normal inspection of the chest Resp Effort & Inspection: normal respiratory effort Auscultation: clear to auscultation bilaterally Cardio Rate: regular rate Rhythm: regular rhythm GI Palpation: soft and no hepatosplenomegaly Auscultation: normal bowel sounds Skin General: no rashes or lesions noted Neuro General: patient alert, patient awake and patient oriented x3 Extrem General: no calf tenderness Psych Appearance: grossly normal Assessment and Plan Assessment and Plan (1) Hiatal hernia with gastroesophageal reflux disease and esophagitis: ?Status:?Acute (2) GERD (gastroesophageal reflux disease): ?Status:?Chronic (3) AAA (abdominal aortic aneurysm) without rupture: ?Status:?Chronic ?Plan: The patient has had a stent graft repair of abdominal aortic aneurysm and by clinical report that is stable.? He has gastroesophageal reflux disease and a hiatal hernia with esophagitis.? I have described to him the technique of laparoscopic repair of his hiatal hernia with a surgical reflux procedure.? Although his manometry is completely normal I would propose for him a laparoscopic toupet procedure.? We have extensively discussed technique benefit risk complication alternatives.? No guarantees of success were offered.? Because of his extremely high quality lifestyle I do believe that he would be a candidate. He has had an opportunity to ask and have questions answered.? Patient states that he has not had any food gets stuck since his procedure with Dr. Mathew. The patient does believe that his reflux symptoms however have continued to escalate with feeling more heartburn and waterbrash. The patient has chronic constipation. He states that he is currently constipated. He states he took some prune juice last night without effect. He has MiraLAX at home which worked for him for his colonoscopy but he has not taken any. He denies any chest pain or shortness of breath. The remainder of his presentation is unchanged. Copy: Davon Feliciano.D., F.A.C.S I have examined the patient and the H&P has been reviewed. There are no clinical changes since date of exam. 03/23/22 7225 <Electronically signed by Maxwell Rich MD> Cosigner Signature (if applicable): CC: Dr. Jared Robertson MD; Dr. Maxwell Rich MD~ Signed [facility] Work Phone: 1(898) 679-993012-16-2022 History of Present illness Narrative* Esdras Retana PA-C - 01/30/2022 11:00 AM EST History of Present Illness: Mr. Sorensen presents [...] seen by Dr. Kaden Calderon, at the [facility] which I believe [facility] with [facility], as part of his workup in conjunction with seeing Dr. Calderon. He had a bone marrow biopsy on 03/04/2012 which was remarkable for several circumscribed interstitial lymphoid aggregates composed of small, round lymphocytes that were noted in the clot section. Immuno stains showed that aggregates were composed of CD3-positive T-cells predominantly and with fewer admixed [id number] B cells. These aggregates accounted for less [...] platelets of 184,000 with 66% neutrophils, 31% lymphocytes,2% monocytes, and rare plasmacytoid lymphocytes at 1%. 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 Of note in addition to a normal CBC on 03/04/2012, he had a normal beta 2, LDH, cre atinines, calcium, and albumin. Review of Systems: A [...] Laterality: N/A; Surgeon: Jared Cline MD; Location: [facility] ENDOSCOPY COLONOSCOPY FOR COLORECTAL CANCER SCREENING HIGH RISK INDIVIDUAL N/A 02/03/2013 Laterality: N/A; Surgeon: Jared Cline MD; Location: [facility] ENDOSCOPY CHOLECYSTECTOMY LAPAROSCOPIC 2009 Current Outpatient Medications [...] 2 Occupational History Occupation: 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 Overall continued todo well from [place] standpoint. He has no [...] if he has questions, concerns or issues. * Ligia Barrett RN - 01/30/2022 11:00 AM EST Discharge instructions given with verbal understanding voiced. Encouraged to call with any questions or concerns. * Suzette Aguilar MD - 01/30/2022 11:00 AM EST I have personally seen and examined Mr. Sorensen and discussed with him the plan of care. I have reviewed all of the laboratory data and available test results and discussed the case in detail with the physician assistant manager trainee, Esdras Retana. I agree with the above [...] recently underwent testing for this to decide ifhe will require surgical intervention. Labs reviewed, monoclonal [...] phase III data with this, BR and B-nudpety-kei with acalabrutinib and obinutuzumab, venetoclax, also being studied. He will return in 6 months with labs and exam. Okay for surgical intervention on his hiatal hernia if required. I have answered all of his questions. He knows to contact us sooner if he has questions, concerns or issues. -KJM documented in this encounterCleveland [facility]12-16-2022 Instructions* Patient Instructions* Ligia Barrett RN - 01/30/2022 11:00 AM EST Primary Care Team Dr. Suzette Russell CNP- Certified Nurse Practitioner Esdras Barrett RN - Primary Nurse Karlene Tamez RN-Primary Nurse Malika Diaz RN - Patient Care Dialysis Social Worker [phone] Contact Numbers: Clinic Phone & Appointment Changes: [phone] Clinic For Medication Refills: If possible please notify us the beginning of the week for any Narcotic refills you may need if notcoming in that week for an appointment. We attempt to fill them as soon as they come in but Dr. Aguilar is only in the clinic on . Please call your pharmacy to verify when to car pick up driver. Allow one week for refills, please do not let your prescription run out. We will call them in to the pharmacy of your request, using the one listed in your chart if not specified differently. You will not be contacted about the refill except for any questions or concerns. Please call your pharmacy to verify when to car pick up driver. All Paperwork: Please allow up to 2 weeks for all disability, FMLA, etc to be filled out. Please specify what yourrequest is as to what and where we [...] be able to discuss these results with youpersonally. If you are unable to obtain the [...] Auto 1.11 0.83 - 3.57 K/uL Abs [place] Auto 0.47 0.24 - 0.93 K/uL Abs Eos Auto 0.12 0.00 - 0.48 K/uL Abs Baso Auto <0.04 0.00 - 0.09 K/uL SPE SERUM TOTAL PROTEIN Result Value Ref Range Total Protein 6.9 6.4 - 8.3 g/dL documented in this encounterOS[facility] History of Present illness Narrative* Tata Porter, DO - 12/09/2021 8:09 AM EDT Images from the original note were not included. Heart, Vascular and Thoracic [place] DEPARTMENT OF VASCULAR SURGERY OUTPATIENT VISIT DATE December 09, 2021 OUTPATIENT VISIT TYPE CONSULTATION SERVICE DATE: 12/09/2021 SERVICE TIME: 8:12 AM PRIMARY CARE PHYSICIAN: Jared Robertson MD REFERRING PROVIDER: Jared Robertson [address] [facility] [address] Consult requested for an opinion regarding the evaluation and treatment of the above. My final impression and recommendations will be communicated back to the requesting physician by way of the shared medical record or letter via US mail. CHIEF COMPLAINT: AAA HISTORY OF PRESENT ILLNESS: Vascular consultation at the request of Dr. Jared Robertson. A copy of this consultation note willbe provided to the requesting physician by way [...] He would like to establish care in [place] as Dr. Rojas retired. Denies abdominal pain [...] problems but pt doesn't remember name (Patient nottaking: Reported on 06/13/2020 ) rosuvastatin (CRESTOR) 20 [...] results SIGNATURE: Tata Porter DO PATIENT NAME: Adarsh Sorensen DATE: December 09, 2021 TIME: 8:12 AM documented in this encounterUniversity Hospitals Tripoint [facility]08-12-2022 History of Present illness Narrative* Tanisha Garcia PA-C - 09/26/2021 1:46 PM EDT Chief Complaint No chief complaint on file. HPI Adarsh Sorensen is a 80 year old male [...] 11/22/07 ENDOSCOPY UPPER-EGD/M24 LAPS SURG CHOLECYSTECTOMY W/CHOLANGIOGRAPHY -- PAST SURGICAL HISTORY OF 11/2014 AAA repair PAST SURGICAL HISTORY OF 2015 both eyes cataract removal. PAST SURGICAL HISTORY OF 10/13/2017 right shoulder surgery per [place] [facility] UMBILICAL HRNA 5 YRS/> REDUCIBLE 2-26-10 STRESS TEST 02/27/2014 WNL Family History FAMILY HISTORY Problem Relation Age of Onset Multiple Sclerosis Brother living Colon Cancer Father 74 of metastatic brain CA Diabetes Father other (schiophrenia) Sister doing ok since e;veronica Alzheimer's Disease Mother Patient Allergies ALLERGIES Allergen Reactions Elavil [Amitriptyli* Other: See Comments Tired and depressed feeling Current Medications Current Outpatient Medications on File Prior to Visit Medication Sig benzonatate (TESSALON PERLE) 100 mg capsule Take 1 capsule by mouth three times daily as needed forup to 10 days. metroNIDAZOLE 1 % gel [...] problems but pt doesn't remember name (Patient nottaking: Reported on 06/13/2020 ) No current facility-administered [...] BLD Tanisha Garcia PA-C documented in this encounterUniversity Hospitals Tripoint [facility] Center08-04-2022 Miscellaneous Notes* Telephone Encounter - Saad Neal MD - 09/18/2021 1:20 PM EDT Agree * Telephone Encounter - Davon Benitez RN - 09/18/2021 11:55 AM EDT Protocol recommends see pcp in 24 hours. Same day appt scheduled. Reason for Disposition [1] Continuous (nonstop) coughing interferes with work or school AND [2] no improvement using coughtreatment per protocol Answer Assessment - Initial Assessment [...] FACTORS No blood clots. 1 week at [facility] end of August. 10. OTHER SYMPTOMS: Runny nose sometimes, sinus drainage, sore throat. 11. : N/A 12. TRAVEL: Spent a week at [facility] end august. Protocols used: COUGH - KTAYXPN-KQSLE-VL documented in this encounterUniversity Hospitals Tripoint Medical Center07-26-2022 Instructions* Patient Instructions* Tunde Martínez APRN.MATTRESS FINISHER - 09/09/2021 11:28 AM EDT FACT SHEET FOR PATIENTS, PARENTS, AND CAREGIVERS EMERGENCY USE AUTHORIZATION (EUA) OF PAXLOVID FOR CORONAVIRUS DISEASE 2019 (COVID-19) You are being given this Fact Sheet because your healthcare provider believes it is necessary to provide you with PAXLOVID for the treatment of hkpu-qv-fyogmwra coronavirus disease (COVID-19) caused by the SARS-CoV-2 virus. This Fact Sheet contains information to help you understand the risks and benefits of taking the PAXLOVID you have received or may receive. The U.S. Food and Drug Administration (FDA) has issued an Emergency Use Authorization (EUA) to makePAXLOVID available during the COVID-19 pandemic (for more details about an EUA please see What is an Emergency Use Authorization? at the end of this document). PAXLOVID is not an FDA-approved medicine in the [place]. Read this Fact Sheet for information about PAXLOVID. Talk to your healthcareprovider about your options or if you have any questions. It is your choice to take PAXLOVID. What is COVID-19? COVID-19 is caused by a virus called a coronavirus. You can get COVID-19 through close contact withanother person who has the virus. COVID-19 illnesses have ranged from very wlxg-qb-ohpdpw, including illness resulting in . While information so far suggests that most COVID-19 illness is mild, serious illness can happen and maycause some of your other medical conditions to become worse. Older people and people of all ages with severe, long lasting (chronic) medical conditions like heart disease, lung disease, and diabetes,for example seem to be at higher risk of being hospitalized for COVID-19. What is PAXLOVID? PAXLOVID is an investigational medicine used to treat dnas-pd-tukibvkw COVID-19 in adults and children [12 years [...] of using PAXLOVID to treat people with kbvw-qe-bzvdbiin COVID-19. The FDA has authorized the emergency use of PAXLOVID for the treatment of fele-lc-eomgxtab COVID-19in adults and children [12 years of age [...] the medicines you take, including prescription and qjbc-ngx-dbewnpe medicines, vitamins, and herbal supplements. Some medicines [...] you have any questions about contraceptive methods thatmight be right for you. How do I [...] missed dose and take the next dose atyour regular time. Do not take 2 doses [...] (remdesivir) is FDA-approved for the treatment of atjf-kz-rlncufjl COVID-19 in certain adults and children. Talk with your doctor to see if Veklury is appropriate for you. Like PAXLOVID, FDA may also allow for the emergency use of other medicines to treat people with COVID-19. Go to https://www.fda.gov/izhaijvei-hgpvrhqaqawv-zgrmarqlgik/tsi-bbypv-wanyvszddt-and- policy-framework/nghpjycci-ubv-scwuewdncgqmg for information on the emergency use of other medicines that are authorized by FDA to treat people with COVID-19. Your healthcare provider may talk with you aboutclinical trials for which you may be eligible. It is your choice to be treated or not to be treated with PAXLOVID. Should you decide not to receive it or for your child not to receive it, it will not change your standard medical care. What if I am or ? There is piano technician treating women or mothers with PAXLOVID. For a motherand unborn baby, the benefit of taking PAXLOVID may be greater than the risk from the treatment. Ifyou are , discuss your options and specific situation with your healthcare provider. It is recommended that you use effective barrier contraception or do not have sexual activity whiletaking PAXLOVID. If you are , discuss your options and specific situation with your healthcare provider. How do I report side effects with PAXLOVID? Contact your healthcare provider if you have any side effects that bother you or do not go away. Report side effects to FDA [employer] at www.fda.gov/medwatch or call 4-996-LEA6543 or you can reportside effects to [employer]. at the contact information provided below. Website Fax number Telephone number [email or web address] How should I store PAXLOVID? Store PAXLOVID [...] (EUA). The EUA is supported by a [place] of Health and Human Service (HHS) declaration that circumstances exist to justify the emergency use of drugs and biological productsduring the COVID-19 pandemic. PAXLOVID for the treatment of qeyz-ra-izqpupqn COVID-19 in adults and children [12 years of age andolder weighing at least 88 pounds (40 kg)] [...] telephone number provided below. Website Telephone number www.LEHQF66uzhiAy.GuestMetrics (3-244-Z50-FCDI) You can also go to www.Mail'Inside or call for more information. Pfizer Distributed by [employer] [place] [address] [id number] Revised: 02 May 2021 documented in this encounterUniversity Hospitals Tripoint Medical Center07-26-2022 History of Present illness Narrative* Tunde Martínez APRN.CNP - 09/09/2021 11:20 AM EDT Telemedicine Visit - Distance Health Virtual Visit Note Patient seen on [employer] video visit platform. Location of patient: [place] Jared Robertson MD History of Present Illness Adarsh Sorensen is a 80 year old year old male who presents for COVID test result. Tested positive on a home rapid antigen test this morning. He has symptoms that include: nasal congestion, sore throat,fatigue started yesterday. Got worse over the night, [...] 10/07/2015 GERD without esophagitis 10/07/[address] 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 MEDICATION, NON-DATABASE Takes med for digestive problems but pt doesn't remember name (Patient nottaking: Reported on 06/13/2020 ) rosuvastatin (CRESTOR) 20 [...] Discussed options of watch and waiting, oral antiviralsor MAB. Patient chose oral antivirals. GFR has been close to or greater than 60 for the most part. - NIRMATRELVIR 300 MG (150 MG X2)-RITONAVIR 100 MG TABLET,DOSE PACK(EUA) PLAN: - Red flags discussed for need for in person care - All questions answered Tunde Martínez APRN.MATTRESS FINISHER If you let us know who your primary care provider is, we will send them a notification of today's visit through our electronic medical records system. Since not all providers have access to our notifications, we strongly encourage you to share the following record of today's visit with your primarycare provider at your next visit. This will help in providing you the best care. If you do not have an established Primary Care physician and would like to continue care with a [facility] Virtual [facility] Care physician, please ask your provider to place a Establish PrimaryCare order. Use Tyche to manage your care, wherever you are, 07/09, on your mobile device or computer. Tyche connects you to [employer] so you can access all your health information in one place and also schedule and request virtual appointments with primary care providers. Nirmatrelvir/Ritonavir (Paxlovid) Eligibility and Patient Discussion [facility] Formulary Restriction Criteria: Adult outpatients 18 years [...] reported. The discussion included alternatives to receiving nirmatrelvir/rit onavir, including clinical trials, and potential the risks and benefits of those alternatives. The patient was provided electronically with the Fact Sheet for Patients, Parents and Caregivers. The patient was also instructed that in addition to the treatment with nirmatrelvir/ritonavir, he/she should continue to self-isolate and use infection control measures (e.g., wear mask, isolate, social distance, avoid sharing personal items, clean and disinfect high touch surfaces, and frequent h andwashing) according to CDC guidelines. The patient stated understanding and gave verbal consent to proceeding with nirmatrelvir/ritonavir treatment. Tunde Martínez APRN.CNP September 09, 2021 11:29 AM documented in this encounterUniversity Hospitals Tripoint Medical Center07-12-2022 Miscellaneous Notes* Telephone Encounter - Mayra Prado - 08/26/2021 2:35 PM EDT Pt is seeing Dr. Mathew at [facility]. Thank you, Mayra Prado * Telephone Encounter - Billie Torres Ma - 08/25/2021 2:45 PM EDT Please call pt to schedule Gastro consult. Billie Torres Ma * Telephone Encounter - Sakina Lim RN - 08/21/2021 3:56 PM EDT Called and left a voicemail for the Patient to call back and ask for a nurse to receive the providers message. Sakina Lim RN * Telephone Encounter - Tanisha Garcia PA-C - 08/21/2021 11:38 AM EDT Consult placed. * Telephone Encounter - Shannan Stallings MA - 08/21/2021 9:09 AM EDT Patient has family HX of colon cancer, [...] established with gastro locally. Shannan Stallings MA * Telephone Encounter - Jared Robertson MD - 08/21/2021 8:59 AM EDT We need more triage info. I have no idea why patient has made an appt with Dr. Mathew to be able toknow what to order as reason for the consult. * Telephone Encounter - Ailyn Roque LPN - 08/21/2021 8:40 AM EDT Requesting referral & pt info to be sent to Dr Mathew. Pt scheduled already for 10/29/21 but is on a wait list. Please fax to [phone]. Ailyn Roque LPN documented in this encounterUniversity Hospitals Tripoint Medical Center07-08-2022 History of Present illness Narrative* Raymundo Hsu, PT - 08/22/2021 2:56 PM EDT Episode Visit Count: 11 Therapist That Will Oversee The Plan Of Care: Raymundo Hsu Start of Care Date: 04/01/21 Onset Date: 04/01/20 Plan of Care Certification Date: 08/22/21 Next Certification Due Date: 09/26/21 Patient Identified by Name and Date of : Yes REHABILITATION AND SPORTS THERAPY PHYSICAL THERAPY PROGRESS REPORT PLAN OF CARE UPDATE: Assessment: Adarsh Sorensen demonstrates difficulty with active lumbar ROM and difficulty sleeping andimprovements in level of independence with the HEP and better understanding of impairments and someimprovement in LE functional strength. He hasprogressed toward [...] will benefit from continued skilled therapy services tomeet the updated goals for this plan of care as noted below. Overall pt progress has been slowed due to recent flare-up of LBP from swinging a golf club. However, Pt is returning to baseline symptomsand improving. Goals updated 08/22/2021 Goals for Episode [...] Patient to be seen for Therapeutic exercise (97403);Manual therapy (58053);Self- long term management (32875);Patient/Family/Caregiver Education;Neuromuscular re-education (84735) PLAN FOR NEXT VISIT: Progress core strengthening [...] 30 Raymundo Hsu PT documented in this encounterUniversity Hospitals Tripoint Medical Center07-01-2022 History of Present illness Narrative* Raymundo Hsu PT - 08/15/2021 3:36 PM EDT Episode Visit Count: 10 Therapist That Will Oversee The Plan Of Care: Raymundo Hsu Start of Care Date: 04/01/21 Onset Date: 04/01/20 Plan of Care Certification Date: 07/17/21 Next Certification Due Date: 08/28/21 Patient Identified by Name and Date of : Yes REHABILITATION AND SPORTS THERAPY PHYSICAL THERAPY TREATMENT NOTE ASSESSMENT: Adarsh Sorensen tolerated the session with fair tolerance as there is still a bit of pain with transitioning to different positions. He demonstrated improvements in ability to perform PPT instanding. The patient will continue to benefit from [...] was facilitated with verbal and visual cuing. Self-Residential Management: 1: Spent ample time discussing sleeping psoitions with use of pillows that open the R lumbar facetsin supine, prone, and side-lying positions to allow better quality sleep. Discussed trying to sleepin a recliner for now until the pain further subsides. Skilled Intervention: Skilled judgment in the selection of proper modification for activity of daily living/home management based on clinical presentation, deficits, and needs. Billing Therapeutic Exercise Treatment Minutes: 10 Self-Care/Home Management Treatment Minutes: 15 Total Treatment Time Minutes (timed/untimed): 25 Raymundo Hsu PT documented in this encounterUniversity Hospitals Tripoint Medical Center06-30-2022 Miscellaneous Notes* Telephone Encounter - Lillian Reardon Ma - 08/14/2021 1:32 PM EDT Faxing information to Dr. Naranjo, patient aware to call and schedule Lillian Reardon Ma * Telephone Encounter - Davon Archer PA-C - 08/14/2021 1:12 PM EDT Already sees Dr. Naranjo. Telephone on 08/13/21 CONSULT TO PAIN MGT Thanks, Bimal Archer PA-C * Telephone Encounter - Enrique Jorge RN - 08/13/2021 11:23 AM EDT Patient calls to let provider know that his back pain isn't getting any better since visit on 08/11.Patient is requesting a referral to pain management (Dr. Peñaloza). Order pended. Diagnosis needed. Enrique Jorge RN documented in this encounterUniversity Hospitals Tripoint Medical Center06-27-2022 Instructions* Patient Instructions* Davon Archer PA-C - 08/11/2021 3:10 PM EDT Try to avoid activities which increase pain. Position for comfort with pillows under or between legs to decrease stress on low back and hip when in bed. Sleeping conditions are very important to backhealth. You need to sleep on a surface that supports your hips in a neutral position. Sagging in the hip or shoulder areas will contribute to muscle irritation. Using a low footstool when sitting upright may also reduce low back pain. Try to arrange seating toallow support in the area where your back curves, especially while watching TV or playing video games. Sitting or standing with a hunched posture will cause or aggravate muscle pain in the neck and low back. Ice or moist heat or both may help with pain and stiffness. Apply for 10-15min as needed. See attached exercises. documented in this encounterUniversity Hospitals Tripoint Medical Center06-27-2022 History of Present illness Narrative* Davon Archer PA-C - 08/11/2021 2:49 PM EDT 80 year old male with hx stable [...] floor. Evaluated Was released with prednisone and [place]. Can take a step without sharp pain. [facility] Dr. Vazquez: told him not a candidate for surgery. Was sent Dr. Malika Naranjo whom he continues to see. HISTORIES [...] 2 Puffs as instructed every 4 hours asneeded for Wheezing/Shortness of Breath. 1 Inhaler 0 [...] day till pain stops or script finished. 10tablet 1 albuterol HFA (PROAIR HFA) 90 mcg/actuation [...] problems but pt doesn't remember name (Patient nottaking: Reported on 06/13/2020 ) No current facility-administered [...] function. No sag sign. SLR bilaterally to 75-80with hamstring tightness. Mild pain and restriction bilateral [...] medication. Davon Archer PA-C documented in this encounterUniversity Hospitals Tripoint Medical Center06-24-2022 History of Present illness Narrative* Raymundo Hsu PT - 08/08/2021 2:51 PM EDT Episode Visit Count: 9 Therapist That Will Oversee The Plan Of Care: Raymundo Hsu Start of Care Date: 04/01/21 Onset Date: 04/01/20 Plan of Care Certification Date: 07/17/21 Next Certification Due Date: 08/28/21 Patient Identified by Name and Date of : Yes REHABILITATION AND SPORTS THERAPY PHYSICAL THERAPY TREATMENT NOTE ASSESSMENT: Adarsh Sorensen tolerated the session with decreased symptoms. He demonstrated good tolerance towards manual therapy techniques. The patient will continue to benefit from ongoing skilled physical therapy to progress toward set goals. PLAN FOR NEXT VISIT: Manual techniques for opening the R lumbar facet joints SUBJECTIVE: Patient Reason for Visit: Went to the emergency room on Wednesday. Severe pain in the backand stayed overnight. They said it was SI [...] 32 Raymundo Hsu PT documented in this encounterUniversity Hospitals Tripoint Medical Center06-17-2022 Instructions* Patient Instructions* Esdras Retana PA-C - 08/01/2021 10:27 AM EDT Primary Care Team Dr. Suzette Russell [facility]- Certified Nurse Practitioner Esdras Retana PA-C Physicians Seo Consultant Ligia Barrett RN - Primary Nurse Karlene Tamez RN-Primary Nurse Malika SORTO RN [facility]- Patient Care Dialysis Social Worker [phone] Contact Numbers: Clinic Phone & Appointment Changes: [phone] Clinic For Medication Refills: If possible please notify us the beginning of the week for any Narcotic refills you may need if notcoming in that week for an appointment. We attempt to fill them as soon as they come in but Dr. Aguilar is only in the clinic on . Please call your pharmacy to verify when to car pick up driver. Allow one week for refills, please do not let your prescription run out. We will call them in to the pharmacy of your request, using the one listed in your chart if not specified differently. You will not be contacted about the refill except for any questions or concerns. Please call your pharmacy to verify when to car pick up driver. All Paperwork: Please allow up to 2 weeks for all disability, FMLA, etc to be filled out. Please specify what yourrequest is as to what and where we [...] be able to discuss these results with youpersonally. If you are unable to obtain the results of a test that you can't find within the My Chart please feel free to call us and we will get back to you with that information. Extolehart messages: When sending a message to the [...] Auto 1.06 0.83 - 3.57 K/uL Abs [place] Auto 0.56 0.24 - 0.93 K/uL Abs Eos Auto 0.14 0.00 - 0.48 K/uL Abs Baso Auto <0.04 0.00 - 0.09 K/uL documented in this encounterCleveland Clinic Lutheran Hospital06-17-2022 History of Present illness Narrative* Esdras Retana PA-C - 08/01/2021 10:15 AM EDT History of Present Illness: Mr. Sorensen presents [...] [facility] Kaden Calderon, [facility], as part of his workup in conjunction with seeing Dr. Calderon. He had a bone marrow biopsy on 03/04/2012 which was remarkable for several circumscribed interstitial lymphoid aggregates composed of small, round lymphocytes that were noted in the clot section. Immuno stains showed that aggregates were composed of CD3-positive T-cells predominantly and with fewer admixed [id number] B cells. These aggregates accounted for less [...] platelets of 184,000 with 66% neutrophils, 31% lymphocytes,2% monocytes, and rare plasmacytoid lymphocytes at 1%. 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 Of note in addition to a normal CBC on 03/04/2012, he had a normal beta 2, LDH, cre atinines, calcium, and albumin. Review of Systems: A full ROS was performed and negative other than reported in interval history. 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 Bronchitis past Cancer ([facility]) 2012 Chest pain Diverticulosis Diverticulosis Hemorrhoids 2012 Hyperlipidemia IBS (irritable bowel syndrome) Infectious mononucleosis 1960 Lymphoma (HCC) 2012 Measles 0 Pneumonia Whooping cough 1850 Past Surgical History: Procedure Laterality Date COLONOSCOPY 2013 EGD W/ BX N/A 02/03/2013 Laterality: N/A; Surgeon: Jaerd Cline MD; Location: [facility] ENDOSCOPY COLONOSCOPY FOR COLORECTAL CANCER SCREENING HIGH RISK INDIVIDUAL N/A 02/03/2013 Laterality: N/A; Surgeon: Jared Cline MD; Location: [facility] ENDOSCOPY CHOLECYSTECTOMY LAPAROSCOPIC 2009 Current Outpatient Medications [...] Number of children: 2 Occupational History Occupation: [employer] 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 Overall continued todo well from Waldenstrom standpoint. He has no [...] questions, concerns or issues. documented in this encounterC[facility] History of Present illness Narrative* Raymundo Hsu, PT - 07/17/2021 3:48 PM EDT Episode Visit Count: 7 Therapist That Will Oversee The Plan Of Care: Danni Hsuy Start of Care Date: 04/01/21 Onset Date: 04/01/20 Plan of Care Certification Date: 07/17/21 Next Certification Due Date: 08/28/21 Patient Identified by Name and Date of : Yes REHABILITATION AND SPORTS THERAPY PHYSICAL THERAPY PROGRESS REPORT PLAN OF CARE UPDATE: Assessment: Adarsh Sorensen demonstrates difficulty with pain of the [...] 1 full week to improve QOL Not met,will continue Pt will be able to perform tandem walking with 1 LOB for 15 feet Not measures this visit due to back pain Patient Goals: Pt wants to improve balance Planned Interventions, Frequency, and Duration: 1x/week, 4 weeks Total Number of Visits Planned: 4 Patient to be seen for Therapeutic exercise (71171);Manual therapy (69853);Self- long term management (05169);Patient/Family/Caregiver Education;Neuromuscular re-education (85908) PLAN FOR NEXT VISIT: Balance training. Opening [...] 32 Raymundo Hsu PT documented in this encounterUniversity [facility]04-21-2022 History of Present illness Narrative* Raymundo Hsu PT - 06/05/2021 1:58 PM EDT Episode Visit Count: 6 Therapist That Will Oversee The Plan Of Care: Raymundo Hsu Start of Care Date: 04/01/21 Onset Date: 04/01/20 Plan of Care Certification Date: 06/05/21 Next Certification Due Date: 07/17/21 Patient Identified by Name and Date of : Yes REHABILITATION AND SPORTS THERAPY PHYSICAL THERAPY PROGRESS REPORT PLAN OF CARE UPDATE: Assessment: Adarsh Sorensen demonstrates significant improvement in DL/SL/tandem stance [...] 1 full week to improve QOL Not met,will continue Pt will be able to perform tandem walking with 1 LOB for 15 feet (NEW) Patient Goals: Pt wants to improve balance Planned Interventions, Frequency, and Duration: 1x/week, 4 weeks Total Number of Visits Planned: 4 Patient to be seen for Therapeutic exercise (58965);Manual therapy (52641);Self- long term management (01225);Patient/Family/Caregiver Education;Neuromuscular re-education (61390) PLAN FOR NEXT VISIT: Add in palodanyelle for core strengthening. SUBJECTIVE: Patient Reason for Visit: Pt reports that he had numbness last week when he went to getup from a chair. Pt states that the [...] 43 Raymundo Hsu PT documented in this encounterUniversity Hospitals [facility]04-08-2022 History of Present illness Narrative* Raymundo Hsu PT - 05/23/2021 3:02 PM EDT Episode Visit Count: 5 Therapist That Will Oversee The Plan Of Care: Raymundo Hsu Start of Care Date: 04/01/21 Onset Date: 04/01/20 Plan of Care Certification Date: 05/02/21 Next Certification Due Date: 06/06/21 Patient Identified by Name and Date of : Yes REHABILITATION AND SPORTS THERAPY PHYSICAL THERAPY TREATMENT NOTE ASSESSMENT: Adarsh Sorensen tolerated the session with no issues. He demonstrated difficulty with someLOB corrected by this PT during balance training. The patient will continue to benefit from ongoingskilled physical therapy to progress toward set goals. [...] 38 Raymundo Hsu PT documented in this encounterUniversity Hospitals [facility]01-05-2022 History of Present illness Narrative* Estefany Dumas, RT(R) - 02/19/2021 10:00 AM EST Radiology Service Progress Note PATIENT NAME: Adarsh Sorensen DATE OF SERVICE: February 19, 2021 TIME: 9:56 AM PATIENT IDENTITY VERIFICATION COMPLETED USING TWO (2) IDENTIFIERS: Name and Date of confirmedby patient verbally. FALL SCREENING: Has the patient had 2 falls in the last year or 1 fall with injury or currently using an Ambulatory Assistive Device (Walker, Cane, Wheelchair, Crutches, etc.)? No PATIENT GENDER DATA: Male PATIENT RELEVANT IMPLANT DATA REVIEWED: Not Applicable RADIOLOGY DEPARTMENT: General X-ray: Exam(s) Completed: Lower Extremity X- Ray(s): Foot, Left and Wt. Bearing PERIPHERAL IV DATA: Not applicable SIGNED BY: RT Checo(R) February 19, 2021 9:56 AM documented in this encounterUniversity Hospitals [facility]08-28-2021 History of Present illness Narrative* Alba Ch RT(R) - 10/12/2020 10:10 AM EDT Radiology Service Progress Note PATIENT NAME: Adarsh Sorensen DATE OF SERVICE: October 12, 2020 TIME: 10:15 AM PATIENT IDENTITY VERIFICATION COMPLETED USING TWO (2) IDENTIFIERS: Name and Date of confirmedby patient verbally. FALL SCREENING: Has the patient had 2 falls in the last year or 1 fall with injury or currently using an Ambulatory Assistive Device (Walker, Cane, Wheelchair, Crutches, etc.)? No PATIENT GENDER DATA: Male PATIENT RELEVANT IMPLANT DATA REVIEWED: Not Applicable RADIOLOGY DEPARTMENT: General X-ray: Exam(s) Completed: Chest X-Ray PERIPHERAL IV DATA: Not applicable SIGNED BY: RT Michael(Paige) October 12, 2020 10:15 AM documented in this encounterUniversity Hospitals [facility]07-29-2021 History of Present illness Narrative* Suzette Aguilar MD - 09/12/2020 2:15 PM EDT I have personally seen and examined Mr. [...] clinic in March 2016. 1) WM Mr. Soresnen presents today for 6 month follow up. [...] phase III data with this, BR and R-tlumfgz-nsx with acalabrutinib and obinutuzumab, venetoclax, also being studied. 2) GI symptoms Unclear of etiology but no splenomegaly or association that I can see to his WM. No neuro symptoms.He is followed by both his PCP and GI. Did say we could repeat a CT abdomen if this worsened or became more persistent, did have a CTA with a stress test in May and this noted no lymphadenopathy orsplenomegaly. He has had an EGD. He will return in 6 months with labs and exam. I have answered all of his questions. He knows to contact us sooner if he has questions, concerns or issues. -KJM * Katt Lantigua MD - 09/12/2020 2:15 PM EDT History of Present Illness: Mr. Sorensen presents for 6 month follow up of his WM. Interval History Mr. Sorensen presents for follow up visit. Has been doing okay since his last visit. Has continued to have significant stomach related issues. Has been regurtating and burping during meals. Has not seenGI for a while. Taking a PPI. Has been having some headaches in the last 6 months or so. Denies anyvisual changes. Had a stress test last week [...] seen by Dr. Kaden Calderon, at the [facility] which I [facility], as part of his workup in conjunction with seeing Dr. Calderon. He had a bone marrow biopsy on 03/04/2012 which was remarkable for several circumscribed interstitial lymphoid aggregates composed of small, round lymphocytes that were noted in the clot section. Immuno stains showed that aggregates were composed of CD3-positive T-cells predominantly and with fewer admixed [id number] B cells. These aggregates accounted for less [...] platelets of 184,000 with 66% neutrophils, 31% lymphocytes,2% monocytes, and rare plasmacytoid lymphocytes at 1%. 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 Of note in addition to a normal CBC on 03/04/2012, he had a normal beta 2, LDH, cre atinines, calcium, and albumin. Review of Systems: A full ROS was performed and negative other than reported in interval history. 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 Bronchitis past Cancer (HCC) 2012 Chest pain Diverticulosis Diverticulosis Hemorrhoids 2012 Hyperlipidemia IBS (irritable bowel syndrome) Infectious mononucleosis 1960 Lymphoma (HCC) 2012 Measles 1849 Pneumonia Whooping cough 1849 Past Surgical History: Procedure Laterality Date COLONOSCOPY 2013 EGD W/ BX N/A 02/03/2013 Laterality: N/A; Surgeon: Jared Cline MD; Location: [facility] ENDOSCOPY COLONOSCOPY FOR COLORECTAL CANCER SCREENING HIGH RISK INDIVIDUAL N/A 02/03/2013 Laterality: N/A; Surgeon: Jared Cline MD; Location: [facility]OSCOPY CHOLECYSTECTOMY LAPAROSCOPIC 2009 Current Outpatient Medications [...] file Occupational History Occupation: 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 Overall continued todo well from [place] standpoint. He has no [...] Lantigua MD Hematology/Oncology Fellow documented in this encounterCleveland [facility]07-29-2021 Instructions* Patient Instructions* Karlene Tamez RN - 09/12/2020 2:15 PM EDT Primary Care Team Dr. Suzette Russell CNP- Certified Nurse Practitioner Esdras Retana PA-C Physicians Seo Consultant Ligia Barrett RN - Primary Nurse Karlene Tamez RN-Primary Nurse Malika SORTO RN OCN- Patient Care Dialysis Social Worker [phone] Contact Numbers: Clinic Phone & Appointment Changes: [phone] Clinic For Medication Refills: If possible please notify us the beginning of the week for any Narcotic refills you may need if notcoming in that week for an appointment. We attempt to fill them as soon as they come in but Dr. Aguilar is only in the clinic on . Please call your pharmacy to verify when to car pick up driver. Allow one week for refills, please do not let your prescription run out. We will call them in to the pharmacy of your request, using the one listed in your chart if not specified differently. You will not be contacted about the refill except for any questions or concerns. Please call your pharmacy to verify when to car pick up driver. All Paperwork: Please allow up to 2 weeks for all disability, FMLA, etc to be filled out. Please specify what yourrequest is as to what and where we [...] be able to discuss these results with youpersonally. If you are unable to obtain the results of a test that you can't find within the My Chart please feel free to call us and we will get back to you with that information. Trunk Club messages: When sending a message to the [...] Auto 1.06 0.83 - 3.57 K/uL Abs [place] Auto 0.61 0.24 - 0.93 K/uL Abs [place] Auto 0.14 0.00 - 0.48 K/uL Abs [place] Auto <0.04 0.00 - 0.09 K/uL documented in this encounterOSU [facility] HospitalChief complaint+Reason for visit Narrative* Chief Complaint INTRACTABLE BACK MARCIA N INTRACTABLE LOW BACK PAIN INTRACTABLE LOW BACK PAIN CONSULT (SELF REFERRAL) Reason for Visit Altered bowel functi on Colonic stricture GERD (gastroesophageal reflux disease) [facility] Work Phone: Chief complaint+Reason for visit Narrative* Chief Complaint CONSULT (SELF REFERR AL) 2 WK FU Hiatal Hernia Upper Lower/Scope REFLUX Reason for Visit Altered bowel functi on Colonic stricture GERD (gastroesophageal reflux disease) Anal stenosis Hiatal hernia with gastroesophageal reflux disease and esophagitis Hiatal hernia with gastroesophageal reflux disease and esophagitis GERD (gastroesophageal reflux disease) [facility] Work Phone: Discharge summary Author Audi Esqueda [facility] September 01, 2022 2:43pm Note Date/Time September 01, 2022 2:40 pm [facility] Medical Records Department [address] [place] [address] Instructions for Home/Discharge Instructions 09/01/22 1438 MR#: [id number] Acct: [id number] Name: ADARSH SORENSEN Rep #:[id number] : 1940 81 From: Audi Esqueda DO PCP: Dr. Jared Robertson MD Status:ADM ROSE MARY Discharge Instructions Diet Discharge Diet: No restrictions Dressing / Incision Call your doctor if you observe: - (worsening dizziness. ) Follow Up Care Test Results: Test results from this visit will be discussed in further detail at your follow- up appointment, if applicable. Discharge Plan Admission Admit Date/Time: 08/31/22 14:37 Primary Reason for Your Visit: dizziness. Attending Provider: Audi Esqueda Primary Care Provider: Jared Robertson Instructions Additional Instructions / Restrictions: Your work up for unsteadiness was normal. MRI did not show any stroke nor mass. This may be due to vertigo, possibly inner ear. You can take meclizine (Antivert) as needed. Also, you can follow up with physical therapy for vestibular rehab. Discharge Orders/Prescriptions Prescriptions: New meclizine 12.5 mg tablet 12.5 mg PO TID PRN (Reason: dizziness) Qty: 20 0RF Continued omeprazole 20 mg capsule,delayed release(DR/EC) 40 mg PO DAILY aspirin 81 MG tablet,chewable 81 mg PO DAILY Patient Comments: PT STATES THAT THEY TAKE THIS ON AND OFF Dry Eye Relief 1-0.2-0.2 % drops 1 drp EACH EYE DAILY Patient Comments: PT USES AN OTC DRY EYE RELIEF EVERY DAY rosuvastatin 20 mg tablet 20 mg PO QHS Other Ambulatory Orders: Physical Therapy Evaluation (Routine) Location: None Selected Ordered By: Dr. Audi Esqueda Referrals / Follow Up: Jared Robertson MD [Primary Care Provider] - Within 2 Weeks Disposition Disposition (needs filled in before D/C Order can be placed): Home, Self Care 09/01/221442<Electronically signed by Audi Esqueda DO>Audiata Baerkel SILVA CC: Dr. Jared Robertson MD ~ Signed [facility] Work Phone: Discharge summary Author Audi [facility] September 01, 2022 2:44pm Note Date/Time September 01, 2022 2:44 pm [facility] Medical Records Department [address] [place] [id number] Discharge Summary 09/01/221442 MR#: [id number] Acct: [id number] Name: ADARSH SORENSEN Rep #:[id number] : 1940 81 From: Audi Esqueda DO PCP: Dr. Jared Robertson MD Status:ADM ROSE MARY Location: [facility] [id number] Providers Date of Admission: 08/31/22 Primary Care Physician: Dr. Jared Robertson MD Reason For Visit: DIZZINESS Diagnosis Discharge Diagnosis (1) Ataxia: Status: Acute Code(s): R27.0 - Ataxia, unspecified Plan: Patient with unsteadiness when he walks. Evaluation for benign paroxysmal positional vertigo was negative with negative lateral gaze for nystagmus and a negative Julián-Hallpike bilaterally. Orthostatic vitals have been ordered. MRI brain negative for acute CVA. Echo shows an EF 65% (2) History of carotid stenosis: Status: Acute Code(s): Z86.79 - Personal history of other diseases of the circulatory system Plan: Noted kinking of the right common carotid on CTA. We will check duplex. Carotid duplex shows less than 50% bilaterally with tortuous right common carotid artery. (3) Bradycardia: Status: Acute Code(s): R00.1 - Bradycardia, unspecified Plan: HR in 40s-50s, which what he has at home. Sinus espinoza. Pt states that he very active at baseline and work out 4-5 x week. Plan Chronic condition * Abdominal aortic aneurysm * Anemia: Stable * Lymphoma: In remission. * Hyperlipidemia: Continue statin VTE prophylaxis: Low risk given current observation status. Medications at Discharge Home Medications aspirin 81 mg chewable tablet 81 mg PO DAILY HEART HEALTH 02/21/16 omeprazole 20 mg capsule,delayed release 40 mg PO DAILY ACID REFLUX 01/15/22 peg [id number] 1 %-0.2 %-0.2 % eye drops (Dry Eye Relief) 1 drp EACH EYE DAILY DRY EYE RELIEF 08/31/22 rosuvastatin 20 mg tablet 20 mg PO QHS CHOLESTEROL 08/31/22 meclizine 12.5 mg tablet 12.5 mg PO TID PRN dizziness #20 tabs 09/01/22 Hospital Course Operations None Procedures 2-D Echocardiogram Summary of Care Provided Minutes Spent on Discharge: 32 Hospital Course: Patient presents with unsteadiness. Patient underwent a work-up for stroke thatwas negative with a normal MRI. Echo was also negative. Patient had a CT angiogram of his neck that showed a concern of a kink in his right carotid. Duplex showed a tortuous right carotid artery. That is mostly did not affect regards to his dizziness. Patient feels better today but that got him up and walked him and he did feel a bit unsteady when he first walked but then was ableto regain his poison gait. Unclear the etiology of this. This could be an inner ear vertigo though his [place]-Hallpike was negative previously and had no lateral nystagmus. Recommended taking meclizine as needed and to follow-up withphysical therapy for vestibular rehab. Weight / BMI Weight Weight: 79.9 kg Body Mass Index (BMI) 24.2 ABG / Lab / Microbiology Data 08/31/22 12:00 08/31/22 12:00 Laboratory: Laboratory Results - last 24 hr 08/31/22 15:24: Troponin I High Sens 7 09/01/22 06:19: Triglycerides 61, Cholesterol 133, LDL Cholesterol 66, VLDL Cholesterol 12, HDL Cholesterol 55 Radiography Diagnostic Testing: Radiology Impression Carotid Duplex 08/31/22 16:06 Interpretation Summary Mild (<50%) stenosis right extracranial internal carotid. Tortuous right common carotid artery. Mild (<50%) stenosis left extracranial internal carotid. Patent and antegrade vertebrals bilaterally. Ordering Physician: Audi Esqueda Performed By: Azar Mcbride, T Echocardiogram 08/31/22 16:06 Interpretation Summary The left ventricular ejection fraction is 65 %. Ordering Physician: Audi Esqueda Performed By: Ke Plunkett, [facility] Brain MRI 09/01/22 09:00 IMPRESSION: No evidence for acute infarct. Mild chronic involutional and white matter changes. Electronically Signed: Shagufta Flor MD at 11:12 EDT , D/C Instructions Discharge Diet: No restrictions Call your doctor if you observe: - (worsening dizziness. ) Meaningful Use Info Meaningful Use Diagnoses (Choose all that apply): None applicable Discharge Plan Admission Admit Date/Time: 08/31/22 14:37 Primary Reason for Your Visit: dizziness. Attending Provider: Audi Esqueda Primary Care Provider: Jared Robertson Instructions Additional Instructions / Restrictions: Your work up for unsteadiness was normal. MRI did not show any stroke nor mass. This may be due to vertigo, possibly inner ear. You can take meclizine (Antivert) as needed. Also, you can follow up with physical therapy for vestibular rehab. Discharge Orders/Prescriptions Prescriptions: New meclizine 12.5 mg tablet 12.5 mg PO TID PRN (Reason: dizziness) Qty: 20 0RF Continued omeprazole 20 mg capsule,delayed release(DR/EC) 40 mg PO DAILY aspirin 81 MG tablet,chewable 81 mg PO DAILY Patient Comments: PT STATES THAT THEY TAKE THIS ON AND OFF Dry Eye Relief 1-0.2-0.2 % drops 1 drp EACH EYE DAILY Patient Comments: PT USES AN OTC DRY EYE RELIEF EVERY DAY rosuvastatin 20 mg tablet 20 mg PO QHS Other Ambulatory Orders: Physical Therapy Evaluation (Routine) Location: None Selected Ordered By: Dr. Audi Esqueda Referrals / Follow Up: Jared Robertson MD [Primary Care Provider] - Within 2 Weeks Disposition Disposition (needs filled in before D/C Order can be placed): Home, Self Care Charges/Coding Visit Charges Inpatient E&M: 76369 Disch Hosp >30min 09/01/22 1444 <Electronically signed by Audi Esqueda DO> Cosigner Signature (if applicable): CC: Dr. Audi Esqueda DO; Dr. Jared Robertson MD~ Signed [facility] Work Phone: Evaluation note* Diagnosis Waldenstrom macroglobulinemia- Primary Macroglobulinemia Examination of participant in clinical trial [facility] Diagnosis Balance problem- Primary Other symptoms involving nervous and musculoskeletal systems Chronic low back pain without sciatica, unspecified back pain laterality [facility] Diagnosis Balance problem- Primary Other symptoms involving nervous and musculoskeletal systems Chronic low back pain without sciatica, unspecified back pain laterality [facility] Balance problem- Primary Other symptoms involving nervous and musculoskeletal systems Chronic low back pain without sciatica, unspecified back pain laterality documented in this encounter [facility]* Diagnosis Waldenstrom macroglobulinemia Macroglobulinemia [facility]* Diagnosis Onset Date Resolution Status Intractable low back pain ac [place] Lumbosacral strain acute Unable to ambulate acute [facility] Work Phone: Evaluation note* Diagnosis Lumbar sprain, subsequent encounter- Primary Chronic low back pain without sciatica, unspecified back pain laterality DDD (degenerative disc disease), lumbar Degeneration of lumbar or lumbosacral intervertebral disc documented in this encounter [facility]* Diagnosis Lumbar sprain, subsequent encounter- Primary Chronic low back pain without sciatica, unspecified back pain laterality DDD (degenerative disc disease), lumbar Degeneration of lumbar or lumbosacral intervertebral disc documented in this encounter [facility]* Diagnosis Balance problem- Primary Other symptoms involving nervous and musculoskeletal systems Chronic low back pain without sciatica, unspecified back pain laterality [facility]* Diagnosis Screening for colon cancer- Primary Special screening for malignant neoplasms, colon Family hx of colon cancer Family history of malignant neoplasm of gastrointestinal tract 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 documented in this encounter [facility]* Diagnosis COVID- Primary [facility]* Diagnosis Abdominal aortic aneurysm (AAA) without [...] of other medications [facility]* Diagnosis Onset Date Resolution Status Altered bowel function chron ic Colonic stricture chronic GERD (gastroesophageal reflux disease) chronic [facility] Work Phone: Evaluation note* Diagnosis Infrarenal abdominal aortic aneurysm (AAA) without rupture- Primary Abdominal aortic aneurysm (AAA) without rupture Subclavian artery stenosis, right (HCC) Atherosclerosis of other specified arteries Bilateral carotid artery stenosis Occlusion and stenosis of carotid artery without mention of cerebral infarction documented in this encounter [facility] [facility] Diagnosis Onset Date Resolution Status Altered bowel function chron ic Colonic stricture chronic GERD (gastroesophageal reflux disease) chronic Anal stenosis acute Hiatal hernia with gastroeso phageal reflux disease and esophagitis acute Hiatal hernia with gastroeso phageal reflux disease and esophagitis acute GERD (gastroesophageal reflux disease) [facility] Work Phone: Evaluation note* Diagnosis Waldenstrom macroglobulinemia Macroglobulinemia [facility] Diagnosis Onset Date Resolution Status Anal stenosis acute Hiatal hernia with gastroeso phageal reflux disease and esophagitis acute Hiatal hernia with gastroeso phageal reflux disease and esophagitis acute GERD (gastroesophageal reflux disease) chronic Hiatal hernia with gastroeso phageal reflux disease and esophagitis acute AAA (abdominal aortic aneurysm) without rupture chronic GERD (gastroesophageal reflux disease) [facility] Work Phone: Evaluation note* Diagnosis Medicare annual wellness visit, subsequent- [...] Other specified counseling [facility] Diagnosis Onset Date Resolution Status Hiatal hernia with gastroeso phageal reflux disease and esophagitis acute AAA (abdominal aortic aneurysm) without rupture chronic GERD (gastroesophageal reflux disease) chronic Hiatal hernia with gastroeso phageal reflux disease and esophagitis acute Hiatal hernia with gastroeso phageal reflux disease and esophagitis acute GERD (gastroesophageal reflux disease) chronic [facility] Work Phone: Evaluation note* Diagnosis Onset Date Resolution Status GERD (gastroesophageal reflux disease) chronic Flatulence/gas pain/belching acute Alternating constipation and diarrhea chronic Ataxia acute History of carotid stenosis acute [facility] Work Phone: Evaluation note* Diagnosis Balance problem- Primary Other symptoms involving nervous and musculoskeletal systems [facility] Diagnosis Onset Date Resolution Status GERD (gastroesophageal reflux disease) chronic Flatulence/gas pain/belching acute Alternating constipation and diarrhea chronic Ataxia acute Bradycardia acute History of carotid stenosis acute [facility] Work Phone: Evaluation note* Diagnosis Rosacea- Primary Monoclonal gammopathy 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 documented in this encounter [facility] note* Diagnosis Lightheadedness- Primary Dizziness and giddiness Unsteadiness Abnormality of gait [facility] Diagnosis Unsteadiness- Primary Abnormality of gait [facility] Diagnosis Unsteadiness- Primary Abnormality of gait [facility] Diagnosis Unsteadiness- Primary Abnormality of gait [facility] Diagnosis Unsteady gait- Primary Abnormality of gait Need for influenza vaccination Need for prophylactic vaccination and inoculation against influenza [facility] Diagnosis Anemia, unspecified type- Primary Waldenstrom macroglobulinemia Macroglobulinemia [facility] Onset Date Resolution Status Alternating constipation and diarrhea chronic Anal stenosis chronic Flatulence/gas pain/belching chronic AAA (abdominal aortic aneurysm) without rupture chronic Common carotid artery stenosis [facility] Work Phone: Evaluation note* Diagnosis Neuropathy- Primary Mononeuritis of unspecified site [facility] Diagnosis Polyneuropathy- Primary Unspecified hereditary and idiopathic peripheral neuropathy [facility]* Diagnosis Thrombocytopenia (HCC)- Primary Thrombocytopenia, unspecified Mixed hyperlipidemia Elevated fasting blood sugar Impaired fasting glucose 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 Bilateral carotid artery stenosis Occlusion and stenosis of carotid artery without mention of cerebral infarction Anemia, unspecified type GERD without esophagitis Esophageal reflux Medication management Encounter for long-term (current) use of other medications [facility] Diagnosis Waldenstrom's macroglobulinemia (HCC)- Primary Macroglobulinemia 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 documented in this encounter [facility] note* Diagnosis Hypokalemia- Primary Hypopotassemia Palpitations Microscopic hematuria Pounding noise in ear, right Encounter for screening for cardiovascular disorders Screening for other and unspecified cardiovascular conditions 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 (CODE) 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 First degree heart block First degree atrioventricular block Mixed hyperlipidemia [facility] Diagnosis Waldenstrom's macroglobulinemia (HCC)- Primary Macroglobulinemia 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 documented in this encounter [facility] note* Diagnosis 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 Unsteady gait Abnormality of gait Neuropathy Mononeuritis of unspecified site 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 [facility] Diagnosis Onset Date Resolution Status AAA (abdominal aortic aneurysm) without rupture chronic Common carotid artery stenosis chronic Alternating constipation and diarrhea chronic Anal stenosis chronic Flatulence/gas pain/belching chronic [facility] Work Phone: Evaluation note* Diagnosis Pain of left great toe- Primary Cellulitis of skin Cellulitis and abscess of unspecified site Pain of left great toe [facility] Cellulitis of skin- Primary Cellulitis and abscess of unspecified site Venous stasis Unspecified venous (peripheral) insufficiency [facility] Diagnosis Cellulitis of skin- Primary Cellulitis and abscess of unspecified site [facility] Diagnosis Cellulitis and abscess of toe of left foot [facility] Diagnosis Cellulitis and abscess of toe of left foot- Primary Abdominal aortic aneurysm (AAA) without rupture, unspecified part (HCC) Cellulitis and abscess of toe of left foot [facility] Diagnosis 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)- Primary [facility] Diagnosis 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 Neoplasm of unspecified behavior of other specified sites [facility] Diagnosis Toe infection- Primary Unspecified local infection of skin and subcutaneous tissue [facility] Diagnosis Cellulitis and abscess of toe of left foot- Primary 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) Ingrowing toenail of left foot Ingrowing nail [facility] Diagnosis Medicare annual wellness visit, subsequent- Primary Routine general medical examination at a [place] [facility] care facility Mixed hyperlipidemia GERD without esophagitis Esophageal reflux Bilateral carotid artery stenosis Occlusion and stenosis of carotid artery without mention of cerebral infarction Abdominal aortic aneurysm (AAA) without rupture, unspecified part (HCC) Subclavian artery stenosis, right (HCC) Atherosclerosis of other specified arteries 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, unspecified extranodal and solid organ sites Waldenstrom's macroglobulinemia (HCC) Macroglobulinemia Anemia, unspecified type Thrombocytopenia (HCC) Thrombocytopenia, unspecified 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 Elevated fasting blood sugar Impaired fasting glucose Chronic bronchitis, unspecified chronic bronchitis type (HCC) Primary insomnia Persistent disorder of initiating or maintaining sleep Benign non-nodular prostatic hyperplasia without lower urinary tract symptoms Balance problem Other symptoms involving nervous and musculoskeletal systems Palpitations [facility] Waldenstrom macroglobulinemia Macroglobulinemia [facility] Diagnosis 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 Unsteady gait Abnormality of gait Neuropathy Mononeuritis of unspecified site Hereditary and idiopathic neuropathy, unspecified [facility] Diagnosis Cellulitis and abscess of toe of left foot- Primary 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) [facility] Diagnosis Cellulitis and abscess of toe of left foot 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) Ingrowing toenail of left foot Ingrowing nail [facility] Diagnosis 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 polyneuritis Waldenstrom macroglobulinemia (HCC) Macroglobulinemia [facility]* Diagnosis 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)- Primary Open wound of toe, initial encounter [facility] Diagnosis Waldenstrom's macroglobulinemia (HCC)- Primary Macroglobulinemia 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 [facility] Diagnosis Constipation, unspecified constipation type [facility] Diagnosis Acute constipation- Primary Unspecified constipation [facility] Diagnosis 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) [facility] Diagnosis 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)- Primary [facility] Diagnosis Irritable bowel syndrome with both constipation and diarrhea- Primary [facility] Diagnosis 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) [facility] Diagnosis Pain of left great toe [facility] Acute [facility] Diagnosis Toe pain, left Pain in limb [facility] Diagnosis Onychodystrophy- Primary Other specified disease of nail [facility] Diagnosis Cough [facility] Diagnosis 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) Other inflammatory and toxic neuropathy 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) [facility]* Diagnosis Onychodystrophy- Primary Other specified disease of nail [facility]* Diagnosis Open wound of toe, initial encounter- Primary [facility]* Diagnosis Atypical chest pain- Primary Other chest pain 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 Mixed hyperlipidemia GERD without esophagitis Esophageal reflux Right inguinal pain Abdominal pain, right lower quadrant Abdominal aortic aneurysm (AAA) without rupture, unspecified part (HCC) First degree AV block First degree atrioventricular block Bilateral carotid artery stenosis Occlusion and stenosis of carotid artery without mention of cerebral infarction Subclavian artery stenosis, right (HCC) Atherosclerosis of other specified arteries Epigastric pain Abdominal pain, epigastric Irritable bowel syndrome with constipation Irritable bowel syndrome [facility]* Diagnosis Atypical chest pain Other chest pain 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 [facility] Diagnosis Atypical chest pain- Primary Other chest pain 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 [facility]* Diagnosis Right inguinal pain Abdominal pain, right lower quadrant Abdominal aortic aneurysm (AAA) without rupture, unspecified part (HCC) [facility]* Diagnosis Viral URI with cough- Primary Acute upper respiratory infections of unspecified site [facility]* Diagnosis Bronchitis- Primary Bronchitis, not specified as acute or chronic documented in this encounter [facility] note* Diagnosis Waldenstrom's macroglobulinemia- Primary Macroglobulinemia 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 [facility] Diagnosis Waldenstrom macroglobulinemia Macroglobulinemia [facility] Diagnosis Mixed hyperlipidemia- Primary Elevated fasting blood sugar Impaired fasting glucose 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 Bilateral carotid artery stenosis Occlusion and stenosis of carotid artery without mention of cerebral infarction Subclavian artery stenosis, right (HCC) Atherosclerosis of other specified arteries Waldenstrom's macroglobulinemia Macroglobulinemia Thrombocytopenia (HCC) Thrombocytopenia, unspecified 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, unspecified extranodal and solid organ sites GERD without esophagitis Esophageal reflux Chronic bronchitis, unspecified chronic bronchitis type (HCC) Anemia, unspecified type Abdominal aortic aneurysm (AAA) without rupture, unspecified part (HCC) Primary insomnia Persistent disorder of initiating or maintaining sleep Benign non-nodular prostatic hyperplasia without lower urinary tract symptoms Neuropathy with IgM monoclonal gammopathy (HCC) Other inflammatory and toxic neuropathy Temporal headache Headache Medication management Encounter for long-term (current) use of other medications [facility] Diagnosis Pain in left foot Pain in limb [facility] Diagnosis Pain in left foot- Primary Pain in limb [facility] Diagnosis 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) Other inflammatory and toxic neuropathy 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) documented [facility]* Diagnosis Waldenstrom's macroglobulinemia (HCC)- Primary Macroglobulinemia 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 [facility]* Diagnosis Medicare annual wellness visit, subsequent- Primary Routine general medical examination at a health care facility Mixed hyperlipidemia Elevated fasting blood sugar Impaired fasting glucose GERD without esophagitis Esophageal reflux Chronic bronchitis, unspecified chronic bronchitis type (HCC) Bilateral carotid artery stenosis Occlusion and stenosis of carotid artery without mention of cerebral infarction Abdominal aortic aneurysm (AAA) without rupture, unspecified part Anemia, unspecified type 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) Other inflammatory and toxic neuropathy Waldenstrom's macroglobulinemia (HCC) Macroglobulinemia Thrombocytopenia Thrombocytopenia, unspecified 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, unspecified extranodal and solid organ sites Subclavian artery stenosis, right Atherosclerosis of other specified arteries 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 Primary insomnia Persistent disorder of initiating or maintaining sleep Benign non-nodular prostatic hyperplasia without lower urinary tract symptoms Erectile dysfunction, unspecified erectile dysfunction type Essential tremor Essential and other specified forms of tremor Advance directive discussed with patient Other specified counseling Hoarse voice quality Dysphonia Diarrhea, unspecified type Encounter for screening examination for other mental health and behavioral disorders Screening for depression LUQ pain Abdominal pain, left upper quadrant [facility] Diagnosis LUQ pain Abdominal pain, left upper quadrant [facility]* Diagnosis LUQ pain- Primary Abdominal pain, left upper quadrant Medication management Encounter for long-term (current) use of other medications documented [facility]* Diagnosis LUQ pain Abdominal pain, left upper quadrant documented in this [facility]* Diagnosis Voice complaint Voice and resonance disorder, unspecified documented [facility] this encounter [facility] Author Danny Mathew [facility] June 05, 2022 6:34am Note Date/Time June 05, 2022 6:3 4am [facility] Medical Records Department [address] [place] [address] History & Physical Exam 06/05/22 0634 MR#: [id number] Acct: [id number] Name: ADARSH SORENSEN Rep #:[id number] : [id number] 81 From: Danny Mathew DO PCP: Dr. Jared Robertson MD Status:[facility] Location: [place] [address] History and Physical Date of Admission: 06/05/22 81 M who presents to the office today for discussion of EGD and colonoscopy findings.? Testing was indicated for chronic nausea, chronic acid reflux, hiatalhernia, alternating diarrhea and constipation.? On EGD he was found to have a large hiatal hernia, esophageal stenosis which Dr. Mathew dilated; negative H. pylori, negative Funez's.? Dr. Mathew recommended he consider fundoplication for the large hiatal hernia.? On colonoscopy, he has anal stenosis, redundant colon, the prep was poor, no pathologic change on biopsy in the sigmoid colon.? Dr. Mathew recommends dilation of the anal stenosis.? Approximately 5 years ago his previous airport driver performed an anal cut which helped with lower GIsymptoms for about 6 months.? He also recommends repeating colonoscopy in 6 months because the bowel prep was poor.? Patient tried Sutab prep but still had difficulty with the amount of fluid required. He has chronic acid reflux and regurgitation, this often feels like nausea, no vomiting.? Swallowing is better since the endoscopy.? He can only eat very smallmeals, has to stop eating hours before he reclines, cannot tolerate fried foods.? He is interested in considering surgery for the large hiatal hernia.? Bowels never feel like they are fully evacuated, but he has frequent watery stools. Has tried stool softener but made constipation worse. Drinks prune juiceevery morning to help with BM. Too much fiber increases constipation. Lots of gas and belching, and some bloating. FH colon cancer, father age 78. 11/25/21 EGD and Colonoscopy Impression: ? - Benign-appearing esophageal stenosis. Dilated. ? - Z-line irregular, 40 cm from the incisors. ? Biopsied. ? - Large hiatal hernia. ? - Erythematous mucosa in the antrum. Biopsied. ? - No gross lesions in the second portion of the ? duodenum. Impression: ? - Preparation of the colon was poor. ? - Anal canal stenosis found on perianal exam. ? - Redundant colon. ? - Congested mucosa in the sigmoid colon. ? Biopsied. ? - Stool in the rectum, in the sigmoid colon, in ? the transverse colon, at the hepatic flexure ? and in the cecum. ? - The examined portion of the ileum was normal. MICROSCOPIC DIAGNOSIS A.? Gastric antrum, biopsy: ?Chronic gastritis. ?See comment. Negative H pylori B.? Distal esophagus, biopsy: ?Gastroesophageal junctional mucosa with mild chronic inflammation. ?Focal changes of reflux. ?No evidence of goblet cell metaplasia. ?See comment. C.? Sigmoid colon, biopsy: ?No pathologic change ROS Const Constitutional: No fatigue, fever(s), frequent falls, headache(s) or weight change ENT ENT: No headache(s) or difficulty swallowing Cardio Cardiology: No leg pain with exertion Gastro GI: Positive for abdominal pain, bloating, change in bowel habits, constipation,diarrhea and heartburn; No difficulty swallowing, Vomiting blood/hematemesis, Blood in stool, nausea/dyspepsia or vomiting Musc Musculoskeletal: Positive for stiffness and Arthritis; No abnormal gait, joint pain, back pain, joint swelling, muscle cramps, muscle weakness, numbness, tingling, sciatica, leg pain at night or leg pain with exertion Skin Skin: Positive for lesions; No dry skin, itchy eyes or rash Neuro Neurology: No abnormal gait, dizziness, frequent falls, headache(s), numbness, tingling, tremor(s), Increased tone in limbs, paralysis or seizures Psych Psychiatric: No anxiety, No depression, No paranoia, No Behavioral Problems, No Compulsive Behavior, No hyperactivity, No inattentiveness, No obsessions/compulsions, No Temper Tantrums and No suicidal ideation Endo Endocrine: No fatigue or weight change Aller/Imm Allergy/Immunologic: No itchy eyes Juma/Lymp Hematologic/Lymphatic: Positive for easy bruising; No easy bleeding Exam Const General: cooperative and healthy appearing Nutritional Appearance: average body habitus Orientation: alert, awake and oriented x3 Other: Appears younger than his age Quality Reporting Tobacco Screening ([facility] 138) Smoking Status: Former smoker Assessment and Plan Assessment and Plan (1) Hiatal hernia with gastroesophageal reflux disease and esophagitis: ?Status:?Acute ?Plan: We discussed EGD and colonoscopy findings Continue omeprazole Refer to Gen Surg for eval for fundoplication for large hiatal hernia with significant daily symptoms that impact his QOL (2) Anal stenosis: ?Status:?Acute ?Plan: Schedule repeat colonoscopy and dilation of anal stenosis ? ? ? Orders: Orders Colonoscopy 02/10/23 K62.4 - Stenosis of anus and re ctum ? Referrals General Surgery ? K21.00 - Gastro-esophageal reflux disease with esophagitis, without bleeding, K44.9 - Diaphragmatic hernia without obstruction or gangrene ? Medications: New omeprazole 20 mg? PO DAILY PRN 90 caps 3RF GERD ? ? Discontinued sod sulf-pot chloride-mag sulf 1.479-0.188- 0.225 gram (Sutab) ?? Discontinued Reason:? Pt no longer taking ?Take 12 tabs two days prior to colonoscopy with 16ounces of water, then drink an additional 24 ounces of water. Take the second 12 tabs one day prior to colonoscopy in the same manner. 24 [id number] ? ? hydrocodone-acetaminophen 5-325 mg ?? 1-2 tabs every 6 hours as needed for pain ?? Discontinued Reason:? Pt no longer taking 1 TAB? PO Q6H 7 days PRN 30 tabs 0RF pain S39.012A - Strain of muscle, fascia and tendon of lower back, initial encounter ? I have examined the patient and the H&P has been reviewed. There are no clinicalchanges since date of exam. 06/05/22 0634 <Electronically signed by Danny Mathew DO> Cosigner Signature (if applicable): CC: Dr. Jared Robertson MD; Danny Mathew DO~ Signed [facility] Work Phone: Reason for referral (narrative)* Outpatient Procedure (Routine) - Authorized Specialty Diagnoses / Procedures Referred By Mike elliott Referred To [facility] Diagnoses Abdominal aortic aneurysm (AAA) without rupture Procedures US ABD AORTA COMPLETE VAS LAB DUP-SCAN AORTA IVC ILIAC VASCL/BPGS COMPLETE Tata Porter DO [address] [facility] [place] [address] [facility] [place] [address] [place] [address] Referral ID Status Reason Start Date Expiration Date Visits Requested Visits Authorized [id number] Authorized Auto-Generat ed Referral 2 12/09/2022 1 1 * Outpatient Procedure (Routine) - Authorized Specialty Diagnoses / Procedures Referred By Contac t Referred To Contact [facility] [place] Diagnoses Subclavian artery stenosis, right (HCC) Bilateral carotid artery stenosis Procedures US CAROTID ARTERIES DIO VAS LAB DUPLEX SCAN EXTRACRANIAL ART COMPL BI STUDY Tata Porter DO [address] [place] [address] [facility] [address] [address] Referral ID Status Reason Start Date Expiration Date Visits Requested Visits Authorized [id number] Authorized Auto-Generat ed Referral 12/09/2022 1 1 [facility] for referral (narrative)* Diagnostic Procedure Only (Routine) - Authorized Specialty Diagnoses / Procedures Referred By [facility] Referred To Contact [facility]LECULAR [facility] FUNCTIONAL [facility]AGING Diagnoses Encounter for screening for cardiovascular disorders 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 (CODE) 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 First degree heart block Procedures NM CARDIAC PERF STRESS/PHARM MYOCARDIAL SPECT MULTIPLE STUDIES Jared Robertson MD [address] [place] [address] [facility] [address] [place] [address] Referral ID Status Reason Start Date Expiration Date Visits Requested Visits Authorized [id number] Authorized Auto-Generat ed Referral 04/14/2023 05/13/2024 1 1 * Outpatient Procedure (Routine) - Authorized Specialty Diagnoses / Procedures [facility] Referred To Contact [facility] [place] Diagnoses Palpitations 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 Procedures ECHO ECHO TTHRC R-T 2D W/WOM-MODE COMPL SPEC&COLR D Jared Robertson MD [address] [place] [address] [facility] [address] [address] Referral ID Status Reason Start Date Expiration Date Visits Requested Visits Authorized [id number] Authorized Auto-Generat ed Referral 04/14/2023 04/13/2024 1 1 [facility] for referral (narrative)* Diagnostic Procedure Only (Urgent) - Closed Specialty Diagnoses / Procedures Referred By Contac t Referred To Contact XR IMAGING Diagnoses Pain of left great toe Procedures XR TOE AP/LAT/OBL LEFT RADEX TOE MINIMUM 2 VIEWS Jared Robertson MD [address] [place] [address] [place] [address] Referral ID Status Reason Start Date Expiration Date V isits Requested Visits Authorized [id number] Closed Auto-Generate d Referral 06/24/2023 07/23/2024 1 1 [facility] for referral (narrative)* Diagnostic Procedure Only (Urgent) - Closed Specialty Diagnoses / Procedures Referred By Contac t Referred To Contact XR IMAGING Diagnoses Cellulitis and abscess of toe of left foot Procedures XR TOE AP/LAT/OBL LEFT RADEX TOE MINIMUM 2 VIEWS Sofia Boyce [address] [place] [address] [place] [address] Referral ID Status Reason Start Date Expiration Date V isits Requested Visits Authorized [id number] Closed Auto-Generate d Referral 07/06/2023 08/04/2024 1 1 [facility] for referral (narrative)* Diagnostic Procedure Only (Urgent) - Closed Specialty Diagnoses / Procedures Referred By Contac t Referred To Contact XR IMAGING Diagnoses Cellulitis and abscess of toe of left foot Procedures XR TOE AP/LAT/OBL LEFT RADEX TOE MINIMUM 2 VIEWS Sofia Boyce [address] [place] [address] [place] [address] Referral ID Status Reason Start Date Expiration Date V isits Requested Visits Authorized [id number] Closed Auto-Generate d Referral 07/06/2023 08/04/2024 1 1 [facility] for referral (narrative)* Diagnostic Procedure Only (Routine) - Pending Review Specialty Diagnoses / Procedures Referred By Contac t Referred To Contact XR IMAGING Diagnoses Cellulitis and abscess of toe of left foot 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) Ingrowing toenail of left foot Procedures XR TOE AP/LAT/OBL LEFT RADEX TOE MINIMUM 2 VIEWS Sofia Boyce [address] [place] [address] [place] [address] Referral ID Status Reason Start Date Expiration Date Visits Requested Visits Authorized [id number] Pending Review Auto-Generat ed Referral 07/23/2023 08/07/2024 1 1 [facility] for referral (narrative)* Diagnostic Procedure Only (Routine) - Closed Specialty Diagnoses / Procedures Referred By Contac t Referred To Contact XR IMAGING Diagnoses Cellulitis and abscess of toe of left foot 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) Ingrowing toenail of left foot Procedures XR TOE AP/LAT/OBL LEFT RADEX TOE MINIMUM 2 VIEWS Sofia [address] [place] [address] [place] [address] Referral ID Status Reason Start Date Expiration Date V isits Requested Visits Authorized [id number] Closed Auto-Generate d Referral 07/23/2023 08/07/2024 1 1 [facility] for referral (narrative)* Diagnostic Procedure Only (Routine) - Closed Specialty Diagnoses / Procedures Referred By Contac t Referred To Contact XR IMAGING Diagnoses 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) Procedures XR TOE AP/LAT/OBL LEFT RADEX TOE MINIMUM 2 VIEWS Sofia [address] [place] [address] [place] [address] Referral ID Status Reason Start Date Expiration Date V isits Requested Visits Authorized [id number] Closed Auto-Generate d Referral 10/07/2023 11/05/2024 1 1 [facility] for referral (narrative)* Diagnostic Procedure Only (Urgent) - Closed Specialty Diagnoses / Procedures Referred By Contac t Referred To Contact XR IMAGING Diagnoses Pain of left great toe Procedures XR TOE AP/LAT/OBL LEFT RADEX TOE MINIMUM 2 VIEWS Jared Robertson MD [address] [place] [address] [place] [address] Referral ID Status Reason Start Date Expiration Date V isits Requested Visits Authorized [id number] Closed Auto-Generate d Referral 06/24/2023 07/23/2024 1 1 [facility] for referral (narrative)* Diagnostic Procedure Only (Routine) - Closed Specialty Diagnoses / Procedures Referred By Contac t Referred To Contact XR IMAGING Diagnoses Toe pain, left Procedures XR FOOT GENERAL 3V AP/LAT/OBL LEFT X-RAY FOOT MINIMUM 3 VIEWS Cordelia Mar APRN.CNP [address] [place] [address] [place] [address] Referral ID Status Reason Start Date Expiration Date V isits Requested Visits Authorized [id number] Closed Auto-Generate d Referral 02/19/2021 03/21/2022 1 1 [facility] for referral (narrative)* Diagnostic Procedure Only (Routine) - Closed Specialty Diagnoses / Procedures Referred By Contac t Referred To Contact [facility] Diagnoses Atypical chest pain 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 Procedures NM CARDIAC PERF STRESS/EXERCISE MYOCARDIAL SPECT MULTIPLE STUDIES Jared Robertson MD [address] [place] [address] [facility] [address] [place] [address] Referral ID Status Reason Start Date Expiration Date V isits Requested Visits Authorized [id number] Closed Auto-Generate d Referral 01/12/2024 02/10/2025 1 1 [facility] for referral (narrative)* Diagnostic Procedure Only (Routine) - Authorized Specialty Diagnoses / Procedures Referred By Mike t Referred To Contact [facility]AL [facility] Diagnoses Atypical chest pain 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 Procedures NM CARDIAC PERF STRESS/EXERCISE MYOCARDIAL SPECT MULTIPLE STUDIES Jared Robertson MD [address] [place] [address] [facility] [address] [place] [address] Referral ID Status Reason Start Date Expiration Date Visits Requested Visits Authorized [id number] Authorized Auto-Generat ed Referral 01/19/2024 02/17/2025 1 1 [facility] for referral (narrative)* Diagnostic Procedure Only (Routine) - Closed Specialty Diagnoses / Procedures Referred By Mike elliott Referred To Contact [facility]LEC[facility] FUNCTIONAL IMAGING Diagnoses Atypical chest pain 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 Procedures NM CARDIAC PERF STRESS/EXERCISE MYOCARDIAL SPECT MULTIPLE STUDIES Jared Robertson MD [facility] [place] [address] Molecular [facility] Functional Imaging [address] [place] [address] Referral ID Status Reason Start Date Expiration Date V isits Requested Visits Authorized [id number] Closed Auto-Generate d Referral 01/19/2024 02/17/2025 1 1 [facility] for visit Narrative* Diagnostic Procedure Only (Urgent) - Closed Specialty Diagnoses / Procedures Referred By Contac t Referred To Contact XR IMAGING Diagnoses Cellulitis and abscess of toe of left foot Procedures XR TOE AP/LAT/OBL LEFT RADEX TOE MINIMUM [address] [place] [address] X[facility] [place] [address] Referral ID Status Reason Start Date Expiration Date V isits Requested Visits Authorized [id number] Closed Auto-Generate d Referral 07/06/2023 08/04/2024 1 1 [facility] for visit Narrative* Diagnostic Procedure Only (Routine) - Closed Specialty Diagnoses / Procedures Referred By Contac t Referred To Contact XR IMAGING Diagnoses Cellulitis and abscess of toe of left foot 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) Ingrowing toenail of left foot Procedures XR TOE AP/LAT/OBL LEFT RADEX TOE MINIMUM 2 VIEWS Sofia Boyce [address] [place] [address] [place] [address] Referral ID Status Reason Start Date Expiration Date V isits Requested Visits Authorized [id number] Closed Auto-Generate d Referral 07/23/2023 08/07/2024 1 1 [facility] for visit Narrative* Diagnostic Procedure Only (Routine) - Closed Specialty Diagnoses / Procedures Referred By Contac t Referred To Contact XR IMAGING Diagnoses Constipation, unspecified constipation type Procedures XR ABDOMEN 3V KUB W/OBLIQUES RADIOLOGIC EXAM ABDOMEN 3+ VIEWS Maxwell Wharton DO [address] [facility] [place] [id number] [place] [address] Referral ID Status Reason Start Date Expiration Date V isits Requested Visits Authorized [id number] Closed Auto-Generate d Referral 10/06/2023 11/04/2024 1 1 [facility] for visit Narrative* Diagnostic Procedure Only (Routine) - Closed Specialty Diagnoses / Procedures Referred By Contac t Referred To Contact XR IMAGING Diagnoses 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) Procedures XR TOE AP/LAT/OBL LEFT RADEX TOE MINIMUM 2 VIEWS Sofia Boyce [address] [place] [address] [place] [address] Referral ID Status Reason Start Date Expiration Date V isits Requested Visits Authorized [id number] Closed Auto-Generate d Referral 10/07/2023 11/05/2024 1 1 [facility] for visit Narrative* Diagnostic Procedure Only (Urgent) - Closed Specialty Diagnoses / Procedures Referred By Contac t Referred To Contact XR IMAGING Diagnoses Pain of left great toe Procedures XR TOE AP/LAT/OBL LEFT RADEX TOE MINIMUM 2 VIEWS Jared Robertson MD [address] [place] [address] [place] [address] Referral ID Status Reason Start Date Expiration Date V isits Requested Visits Authorized [id number] Closed Auto-Generate d Referral 06/24/2023 07/23/2024 1 1 [facility] for visit Narrative* Diagnostic Procedure Only (Routine) - Closed Specialty Diagnoses / Procedures Referred By Contac t Referred To Contact XR IMAGING Diagnoses Toe pain, left Procedures XR FOOT GENERAL 3V AP/LAT/OBL LEFT X-RAY FOOT MINIMUM 3 VIEWS PodlogCordelia ruiz APRN.CNP [address] [place] [id number] [place] [address] Referral ID Status Reason Start Date Expiration Date V isits Requested Visits Authorized [id number] Closed Auto-Generate d Referral 02/19/2021 03/21/2022 1 1 [facility] for visit Narrative* Diagnostic Procedure Only (Routine) - Closed Specialty Diagnoses / Procedures Referred By Contac t Referred To Contact MOLECULAR [facility] FUNCTIONAL IMAGING Diagnoses Atypical chest pain 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 Procedures NM CARDIAC PERF STRESS/EXERCISE MYOCARDIAL SPECT MULTIPLE STUDIES Jared Robertson MD [address] [place] [phone] Molecular [facility] Functional Imaging [address] [place] [address] Referral ID Status Reason Start Date Expiration Date V isits Requested Visits Authorized [id number] Closed Auto-Generate d Referral 01/12/2024 02/10/2025 1 1 [facility] for visit Narrative* Diagnostic Procedure Only (Routine) - Closed Specialty Diagnoses / Procedures Referred By Contac t Referred To Contact [facility]LECULAR [facility] FUNCTIONAL IMAGING Diagnoses Atypical chest pain 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 Procedures NM CARDIAC PERF STRESS/EXERCISE MYOCARDIAL SPECT MULTIPLE STUDIES Jared Robertson MD [address] [place] [phone] Molecular [facility] Functional Imaging [address] [place] [address] Referral ID Status Reason Start Date Expiration Date V isits Requested Visits Authorized [id number] Closed Auto-Generate d Referral 01/19/2024 02/17/2025 1 1 [facility] Diagnostic Procedure Only (Routine) - Closed Specialty Diagnoses / Procedures Referred By Contac t Referred To Contact XR IMAGING Diagnoses Pain in left foot Procedures XR FOOT GENERAL 3V AP/LAT/OBL LEFT RADEX FOOT COMPLETE MINIMUM 3 VIEWS Sofia Boyce [address] [address] Phone: tel: fax: [place] [address] Referral ID Status Reason Start Date Expiration Date V isits Requested Visits Authorized [id number] Closed Auto-Generate d Referral 04/12/2024 05/12/2025 1 1 [facility] Summary Purpose Family History No Family History Records Found Relationship Condition Age at Onset Recorded Date/T leonard father Malignant neoplasm of colon Unknown mother Alzheimer's disease Unknown brother Multiple sclerosis Unknown Advance Directives No Advanced Directives Records FoundDocuments on File Type Date Recorded Patient Help Desk Support Specialist Expl anation Advance Directive(s) Advance Directive Response Recorded Date/ Time Name of Medical Power of Coil Former RAMSES SORENSEN (W YASIR) August 04, 2021 9:12pm Advance Directives No February 21, 2016 7:58pm Living Will Yes August 04, 2021 9:12pm Power of Coil Former Yes August 04 9:12pm Advance Directive Response Recorded Date/ Time Name of Medical Power of Coil Former RAMSES SORENSEN (W YASIR) August 05, 2021 12:02am Advance Directives No February 21, 2016 7:58pm Living Will Yes August 05, 2021 12:02am Power of Coil Former Yes August 05 12:02am Documents on File Type Date Recorded Patient Help Desk Support Specialist Expl anation Advance Directive(s) Advance Directive Response Recorded Date/ Time Name of Medical Power of Coil Former RAMSES SORENSEN (W YASIR) August 05, 2021 12:02am Advance Directives No February 21, 2016 7:58pm Living Will No November 24 8:38am Power of Coil Former No November 24, 2021 8:38am Advance Directive Response Recorded Date/ Time Advance Directives No February 21, 2016 6:58pm Living Will No November 24 7:38am Power of Coil Former No November 24, 2021 7:38am Advance Directive Response Recorded Date/ Time Advance Directives No February 21, 2016 6:58pm Living Will No March 09 10:29am Power of Coil Former No March 09, 2022 10:29am Advance Directive Response Recorded Date/ Time Advance Directives No February 21, 2016 7:58pm Living Will No June 01, 2022 2:42pm Power of Coil Former No June 01 2:42pm Advance Directive Response Recorded Date/ Time Advance Directives No February 21, 2016 7:58pm Living Will No August 31, 2022 11:57am Power of Coil Former No August 31 11:57am Advance Directive Response Recorded Date/ Time Advance Directives No February 21, 2016 7:58pm Living Will No August 31, 2022 3:33pm Power of Coil Former No August 31 3:33pm Advance Directive Response Recorded Date/ Time Advance Directives No February 21, 2016 6:58pm Living Will No August 31, 2022 2:33pm Power of Coil Former No August 31 2:33pm Advance Directive Response Recorded Date/ Time Advance Directives No February 21, 2016 7:58pm Living Will No June 15, 2023 3:28pm Power of Coil Former No June 14 3:28pm Advance Directive Response Recorded Date/ Time Advance Directives No February 21, 2016 7:58pm Living Will No June 20, 2023 5: 09pm Power of Coil Former No June 20, 2023 5:09pm Chief Complaint and Reason for Visit Chief Complaint INTRACTABLE BACK MARCIA N INTRACTABLE LOW BACK PAIN Reason for Visit Intractable low back pain Lumbosacral strain Unable to ambulate Chief Complaint 2 WK FU Hiatal Hernia Upper Lower/Scope REFLUX discuss results and surgery/update H&P PREOP LAP MIKA LAP MIKA Reason for Visit Anal stenosis Hiatal hernia with gastroesophageal reflux disease and esophagitis Hiatal hernia with gastroesophageal reflux disease and esophagitis GERD (gastroesophageal reflux disease) Hiatal hernia with gastroesophageal reflux disease and esophagitis AAA (abdominal aortic aneurysm) without rupture GERD (gastroesophageal reflux disease) Chief Complaint discuss results and surgery/update H&P PREOP LAP MIKA LAP MIKA Lap Mika 2/ RC LAP MIKA / LAP MIKA / LAP TOUPET PROCEDURE LAP TOUPET PROCEDURE Reason for Visit Hiatal hernia with g astroesophageal reflux disease and esophagitis AAA (abdominal aortic aneurysm) without rupture GERD (gastroesophageal reflux disease) Hiatal hernia with gastroesophageal reflux disease and esophagitis Hiatal hernia with gastroesophageal reflux disease and esophagitis GERD (gastroesophageal reflux disease) Chief Complaint 3 mo fu CONSULT-CAROTID STENOSIS Encounter for surgical aftercare following surgery Reason for Visit Alternating constipa tion and diarrhea Anal stenosis Flatulence/gas pain/belching AAA (abdominal aortic aneurysm) without rupture Common carotid artery stenosis Chief Complaint CONSULT-CAROTID STEN OSIS Encounter for surgical aftercare following surgery 6 MO FU Reason for Visit AAA (abdominal aorti c aneurysm) without rupture Common carotid artery stenosis Alternating constipation and diarrhea Anal stenosis Flatulence/gas pain/belching Chief Complaint CONSULT-CAROTID STEN OSIS Encounter for surgical aftercare following surgery 6 MO FU Swollen L Big Toe Reason for Visit AAA (abdominal aorti c aneurysm) without rupture Common carotid artery stenosis Alternating constipation and diarrhea Anal stenosis Flatulence/gas pain/belching Reason for Referral Specialty Diagnoses / Procedures Referred By Mike t Referred To Contact Diagnoses Lumbar sprain, subsequent encounter Chronic low back pain without sciatica, unspecified back pain laterality DDD (degenerative disc disease), lumbar Procedures CONSULT TO PAIN MGT OFFICE/OUTPATIENT [facility] 60-74 MINUTES Davon Archer PA-C [address] [place] [address] Referral ID Status Reason Start Date Expiration Date Visits Requested Visits Authorized [id number] Authorized PCP Requested Referral 08/14/2021 08/13/2022 1 1 Specialty Diagnoses / Procedures Referred By Contkostas t Referred To Contact Gastroenterology Diagnoses Screening for colon cancer Family hx of colon cancer 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 Procedures CONSULT TO GASTROENTEROLOGY OFFICE/OUTPATIENT [facility] 60-74 MINUTES Tanisha Garcia PA-C [address] [place] [address] Referral ID Status Reason Start Date Expiration Date Visits Requested Visits Authorized [id number] Authorized PCP Requested Referral 08/21/2021 08/21/2022 1 1 Specialty Diagnoses / Procedures Referred By Contac t Referred To Contact Vascular Surgery Diagnoses Abdominal aortic aneurysm (AAA) without rupture (HCC) Subclavian artery stenosis, right (HCC) Bilateral carotid artery stenosis Procedures CONSULT TO VASCULAR SURGERY OFFICE/OUTPATIENT [facility] 60-74 MINUTES Tanisha Garcia PA-C [address] [place] [address] Referral ID Status Reason Start Date Expiration Date Visits Requested Visits Authorized [id number] Authorized PCP Requested Referral 09/26/2021 09/26/2022 1 1 Specialty Diagnoses / Procedures Referred By Contac t Referred To Contact Vascular Medicine Diagnoses Abdominal aortic aneurysm (AAA) without rupture (HCC) Subclavian artery stenosis, right (HCC) Bilateral carotid artery stenosis Procedures CONSULT TO VASCULAR MEDICINE OFFICE/OUTPATIENT [facility] 60-74 MINUTES Tanisha Garcia PA-C [address] [place] [address] Referral ID Status Reason Start Date Expiration Date Visits Requested Visits Authorized [id number] Authorized PCP Requested Referral 09/26/2021 09/26/2022 1 1 Specialty Diagnoses / Procedures Referred By Contac t Referred To Contact [facility] Diagnoses Unsteadiness Procedures CONSULT TO PHYSICAL THERAPY PHYSICAL THERAPY EVALUATION HIGH COMPLEX 45 MINS Tanisha Garcia PA-C [address] [place] [address] [facility] [place] [address] [place] [address] Referral ID Status Reason Start Date Expiration Date Visits Requested Visits Authorized [id number] Authorized PCP Requested Referral Auto-Generate d Referral 10/27/2022 10/27/2023 99 99 Specialty Diagnoses / Procedures Referred By Contac t Referred To Contact Neurology Diagnoses Unsteady gait Procedures CONSULT TO NEUROLOGY OFFICE/OUTPATIENT [facility] 60-74 MINUTES Kevin Copeland MD [address] [place] [address] Referral ID Status Reason Start Date Expiration Date Visits Requested Visits Authorized [id number] Authorized PCP Requested Referral 01/09/2024 1 1 Specialty Diagnoses / Procedures Referred By Contac t Referred To Contact MR IMAGING Diagnoses Unsteady gait Procedures MRI BRAIN WO/W IVCON MRI BRAIN BRAIN STEM W/O W/CONTRAST MATERIAL Kevin Copeland MD [address] [place] [address] [place] [address] Referral ID Status Reason Start Date Expiration Date Visits Requested Visits Authorized [id number] Authorized Auto-Generat ed Referral 02/08/2024 1 1 Specialty Diagnoses / Procedures Referred By Contac t Referred To Contact Neurology Diagnoses Polyneuropathy Procedures CONSULT TO NEUROLOGY OFFICE/OUTPATIENT [facility] 60 MINUTES Mimi Solis PA-C [address] [place] [address] Referral ID Status Reason Start Date Expiration Date Visits Requested Visits Authorized [id number] Authorized PCP Requested Referral 03/19/2023 03/18/2024 1 1 Specialty Diagnoses / Procedures Referred By Contac t Referred To Contact Podiatry Diagnoses Cellulitis of skin Procedures CONSULT TO PODIATRY OFFICE/OUTPATIENT [facility] 60 MINUTES Jared Robertson MD [address] [place] [address] Referral ID Status Reason Start Date Expiration Date Visits Requested Visits Authorized [id number] Authorized PCP Requested Referral 07/02/2023 07/01/2024 1 1 Specialty Diagnoses / Procedures Referred By Contac t Referred To Contact MR IMAGING Diagnoses 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) Procedures MRI FOOT/TOES WO IVCON LEFT MRI LOWER EXTREM OTH/THN JT W/O CONTR [address] [place] [address] [place] [address] Referral ID Status Reason Start Date Expiration Date Visits Requested Visits Authorized [id number] Pending Review Auto-Generat ed Referral 07/07/2023 08/05/2024 1 1 Referral ID Status Reason Start Date Expiration Date Visits Requested Visits Authorized [id number] Authorized Auto-Generat ed Referral 08/06/2023 09/04/2024 1 1 Referral ID Status Reason Start Date Expiration Date V isits Requested Visits Authorized [id number] Closed Auto-Generate d Referral 08/06/2023 09/04/2024 1 1 Specialty Diagnoses / Procedures Referred By Contac t Referred To Contact Gastroenterology Diagnoses GERD without esophagitis Epigastric pain Irritable bowel syndrome with constipation Procedures CONSULT TO GASTROENTEROLOGY OFFICE/OUTPATIENT [facility] 60 MINUTES Jared Robertson MD [facility] [place] [id number] Referral ID Status Reason Start Date Expiration Date Visits Requested Visits Authorized [id number] Authorized PCP Requested Referral 4 01/11/2025 1 1 Specialty Diagnoses / Procedures Referred By Contac t Referred To Contact Vascular Surgery Diagnoses Abdominal aortic aneurysm (AAA) without rupture, unspecified part (HCC) Bilateral carotid artery stenosis Subclavian artery stenosis, right (HCC) Procedures CONSULT TO VASCULAR SURGERY OFFICE/OUTPATIENT [facility] 60 MINUTES Jared Robertson MD [address] [place] [address] Referral ID Status Reason Start Date Expiration Date Visits Requested Visits Authorized [id number] Authorized PCP Requested Referral 4 01/11/2025 1 1 Specialty Diagnoses / Procedures Referred By Contac t Referred To Contact CT IMAGING Diagnoses Right inguinal pain Abdominal aortic aneurysm (AAA) without rupture, unspecified part (HCC) Procedures CTA ABD/PEL LOWER EXTREM WO/W IVCON CTA ABDL AORTA&BI ILIOFEM W/CONTRAST&POSTP Jared Robertson MD [address] [place] [address] [address] [place] [address] Referral ID Status Reason Start Date Expiration Date Visits Requested Visits Authorized [id number] Authorized Auto-Generat ed Referral 4 02/10/2025 1 1 Specialty Diagnoses / Procedures [facility] MOLECULAR & FUNCTIONAL IMAGING Diagnoses Atypical chest pain 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 Procedures NM CARDIAC PERF STRESS/EXERCISE MYOCARDIAL SPECT MULTIPLE STUDIES Jared Robertson MD [address] [place] [address] [facility] [address] [place] [address] Referral ID Status Reason Start Date Expiration Date Visits Requested Visits Authorized [id number] Authorized Auto-Generat ed Referral 4 02/10/2025 1 1 Specialty Diagnoses / Procedures Referred By Mike t Referred To Contact [facility] Diagnoses Atypical chest pain Procedures ECG COMPLETE ECG ROUTINE ECG W/LEAST 12 LDS W/I&R Jared Robertson MD [address] [place] [address] [facility] [place] [address] [place] [address] Referral ID Status Reason Start Date Expiration Date Visits Requested Visits Authorized [id number] New Request Auto-Generat ed Referral 4 01/11/2025 1 1 Health Concerns Infection Onset Date Last Indicated Resolved Time COVID-19 Confirmed 09/18/2021 09/18/2021 Infection Onset Date Last Indicated Resolved Time COVID-19 Confirmed 09/18/2021 09/18/2021 2 8:51 PM EDT Additional Source Comments (unrecognized sect ion and content) No Status Records FoundNo Status Records FoundNo Status Records FoundNo Status Records FoundNo Status Records FoundNo Status Records Found INFORMATION SOURCE (unrecogn ized section and content) DATE CREATED AUTHOR 08/02/2017 [facility] DATE CREATED AUTHOR AUTHOR'S ORGANIZ ATION 03/21/2024 [facility] DATE CREATED AUTHOR AUTHOR'S ORGANIZ ATION 04/09/2024 [facility] DATE CREATED AUTHOR AUTHOR'S ORGANIZ ATION 04/19/2024 [facility] DATE CREATED AUTHOR AUTHOR'S ORGANIZ ATION 10/21/2024 [facility] DATE CREATED AUTHOR AUTHOR'S ORGANIZ ATION 11/23/2024 [facility] Reason for Visit (unrecogniz ed section and content) Reason Comments PT Discharge Specialty Diagnoses / Procedures Referred By Mike elliott Referred To Contact [facility] Diagnoses Unsteadiness Procedures CONSULT TO PHYSICAL THERAPY PHYSICAL THERAPY EVALUATION [facility]IGH [facility]X 45 MINS Tanisha Garcia PA-C [address] [place] [address] [facility] [place] [address] [place] [address] Referral ID Status Reason Start Date Expiration Date Visits Requested Visits Authorized [id number] Authorized PCP Requested Referral Auto-Generate d Referral 10/27/2022 10/27/2023 99 99 Reason Comments Physical Therapy Reason Comments PT Progress Note Specialty Diagnoses / Procedures Referred By Contac t Referred To Contact [facility] Diagnoses Chronic low back pain without sciatica, unspecified back pain laterality Balance problem Procedures CONSULT TO PHYSICAL THERAPY PHYSICAL THERAPY EVALUATION [facility] 45 MINS Jared Robertson MD [address] [place] [address] [facility] [address] [place] [address] Referral ID Status Reason Start Date Expiration Date Visits Requested Visits Authorized [id number] Authorized PCP Requested Referral Auto-Generate d Referral 03/29/2021 03/29/2022 99 99 Reason Comments Follow-up Reason Comments Hospital Follow Up [facility] 08/04/21-08/05/21 Intractable low back pain Reason Comments Referral Request Reason Comments Referral Request Orders Appointment Reason Comments Covid Test Result Specialty Diagnoses / Procedures Referred By Contac t Referred To Contact Vascular Surgery Diagnoses Abdominal aortic aneurysm (AAA) without rupture Subclavian artery stenosis, right (HCC) Bilateral carotid artery stenosis Procedures CONSULT TO VASCULAR SURGERY OFFICE/OUTPATIENT [facility] 60-74 MINUTES Tanisha Garcia PA-C [address] [place] [address] Referral ID Status Reason Start Date Expiration Date V isits Requested Visits Authorized [id number] Closed PCP Requested Referral 09/26/2021 09/26/2022 1 [...] o ngoing issue Immunizations 01/09/2023 Flu vaccination Reason Comments Results Reason Comments Patient Question Reason Comments Chemotherapy Treatment Specialty Diagnoses / Procedures Referred By Contac t Referred To Contact Diagnoses 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 document H&P Dr. Mathew, [place] noscopy and EGD Report Reason Comments ER F/U Reason Comments Follow Up Reason Comments New Patient Cellulitis Reason Comments rx not at pharmacy Reason Comments Orders Reason Comments Established Patient Reason Comments New Joint and Bone Reason Comments Follow Up Pain Reason Onset Date Comments EMG 03/19/2023 Specialty Diagnoses / Procedures Referred By Contac t Referred To Contact [facility] Diagnoses Unsteady gait Neuropathy Procedures EMG(NEURO/NI) NERVE CONDUCTION STUDIES 9-10 STUDIES Mimi Solis PA-C [address] [place] [address] Neurological [place] [address] [place] [address] Referral ID Status Reason Start Date Expiration Date V isits Requested Visits Authorized [id number] Closed Auto-Generate d Referral 02/16/2023 02/17/2024 1 1 Reason Comments Established Patient Pain Infection Reason Comments Follow Up Established Patient Reason Comments Follow Up Avulsion Reason Comments Constipation Reason Comments Established Patient Follow Up Ingrown Toenail Reason Comments ER F/U Reason Comments Radiology MRI Specialty Diagnoses / Procedures Referred By Contac t Referred To Contact MR IMAGING Diagnoses 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) Procedures MRI FOOT/TOES WO IVCON LEFT MRI LOWER EXTREM OTH/THN JT W/O CONTR MATRL Sofia Boyce [address] [place] [address] [place] [address] Referral ID Status Reason Start Date Expiration Date V isits Requested Visits Authorized [id number] Closed Auto-Generate d Referral 08/06/2023 09/04/2024 1 1 Reason Comments Established Patient Pain Reason Comments Established Patient Follow Up Ingrown Toenail Reason Comments F/U 6 months Reason Comments Reminder Call Specialty Diagnoses / Procedures Referred By Contac t Referred To Contact CT IMAGING Diagnoses Right inguinal pain Abdominal aortic aneurysm (AAA) without rupture, unspecified part (HCC) Procedures CTA ABD/PEL LOWER EXTREM WO/W IVCON CTA ABDL AORTA&BI ILIOFEM W/CONTRAST&POSTP Jared Robertson MD [address] [place] [address] Ct [facility] [place] [address] Referral ID Status Reason Start Date Expiration Date V isits Requested Visits Authorized [id number] Closed Auto-Generate d Referral 01/12/2024 02/10/2025 1 1 Reason Comments Nasal Congestion drainage, cough, fev er x 3 days Reason Comments Outside Vascular Medicine Specialty Diagnoses / Procedures Referred By Contac t Referred To Contact Diagnoses Waldenstrom's macroglobulinemia Neuropathy associated with anti-MAG antibody Maxwell Wharton DO [address] [place] [address] Juma [facility] [address] [place] [address] Reason Comments 6 Month Exam Reason Comments Established Patient Pain Reason Comments Established Patient Follow Up Specialty Diagnoses / Procedures Referred By Contac t Referred To Contact Diagnoses 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 Maxwell Wharton DO [address] [place] [address] Phone: tel: fax: Hematology/Oncology [address] [place] [address] Phone: tel: fax: Reason Comments Medicare Wellness Exam Reason Comments Radiology US Specialty Diagnoses / Procedures Referred By Contac t Referred To Contact US IMAGING Diagnoses LUQ pain Procedures US ABDOMEN COMPLETE US ABDOMINAL REAL TIME W/IMAGE DOCUMENTATION Jared Robertson MD [address] [place] [address] Phone: tel: fax: [place] [address] Referral ID Status Reason Start Date Expiration Date V isits Requested Visits Authorized [id number] Closed Auto-Generate d Referral 08/30/2024 09/29/2025 [address] Specialty Diagnoses / Procedures Referred By Contac t Referred To Contact CT IMAGING Diagnoses LUQ pain Procedures CT ABDOMEN W IVCON CT ABDOMEN W/CONTRAST Jared Robertson MD [address] [place] [address] Phone: tel: fax: [place] [address] Referral ID Status Reason Start Date Expiration Date V isits Requested Visits Authorized [id number] Closed Auto-Generate d Referral 09/12/2024 10/12/2025 1 1 Reason Comments Abstract GI OV Reason Comments Hoarseness Specialty Diagnoses / Procedures Referred By Contac t Referred To Contact Ent - Otolaryngology Diagnoses Hoarse voice quality Procedures OFFICE/OUTPATIENT [facility] 60 MINUTES Jared Robertson MD [address] [place] [address] Phone: tel: fax: Referral ID Status Reason Start Date Expiration Date V isits Requested Visits Authorized [id number] Closed PCP Requested Referral 08/30/2024 08/30/2025 1 1 Care Teams (unrecognized sec tion and content) 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 Specialty Start Date End Date Jared Robertson MD [address] [place] [address] PCP - General Family Medicine 09/16/17 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 Specialty Start Date End Date Jared Robertson MD [address] [place], [place] [address] PCP - General Family Practice 07/08/15 Kaden Ortiz [address] [address] Cardiology 07/30/17 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 Specialty Start Date End Date Jared Robertsno MD [address] [place] [address] PCP - General Family Practice 07/08/15 Kaden Ortiz [address] [place] [address] Cardiology 07/30/17 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 Specialty Start Date End Date Jared Robertson MD [address] [place] [address] PCP - General Family Practice 07/08/15 Kaden Ortiz [address] [facility] [address] [place] [address] Cardiology 07/30/17 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 Specialty Start Date End Date Jared Robertson MD [address] [facility] [place] [address] PCP - General Family Medicine 09/16/17 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 Specialty Start Date End Date Jared Robertson MD [address] [place] [address] PCP - General Family Practice 07/08/15 Kaden Ortiz [address] [facility] [address] [place] [address] Cardiology 07/30/17 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 Specialty Start Date End Date Jared Robertson MD [address] [place] [address] PCP - General Family Practice 07/08/15 Kaden Ortiz [address] [facility] [address] [place] [address] Cardiology 07/30/17 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 Specialty Start Date End Date Jared Robertson MD [address] [place] [address] PCP - General Family Practice 07/08/15 Kaden Ortiz [address] [place] [address] Cardiology 07/30/17 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 Specialty Start Date End Date Jared Robertson MD [address] [facility] [place] [address] PCP - General Family Practice 07/08/15 Kaden Ortiz [address] [place] [address] Cardiology 07/30/17 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 Specialty Start Date End Date Jared Robertson MD [address] [facility] [place] [address] PCP - General Family Practice 07/08/15 Kaden Ortiz [address] [place] [address] Cardiology 07/30/17 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 Specialty Start Date End Date Jared Robertson MD [address] [facility] [place] [address] PCP - General Family Practice 07/08/15 Kaden Ortiz [address] [place] [address] Cardiology 07/30/17 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 Specialty Start Date End Date Jared Robertson MD [address] [place] [address] PCP - General Family Medicine 07/08/15 Kaden Ortiz [address] [place] [address] Cardiology 07/30/17 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 Specialty Start Date End Date Jared Robertson MD [address] [place] [address] PCP - General Family Medicine 07/08/15 Angel Kaden Dominguez [address] [facility] [address] [place] [address] Cardiology 07/30/17 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 Specialty Start Date End Date Jared Robertson MD [address] [place] [address] PCP - General Family Medicine 07/08/15 Kaden Ortiz [address] [place] [phone] Cardiology 07/30/17 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 Specialty Start Date End Date Jared Robertson MD [address] [facility] [place] [address] PCP - General Family Medicine 09/16/17 Team Status: Active Member Role Status Dates Dr. Jared Robertson MD Family Provider Active Dr. Jared Robertson MD Primary Care Provider Active Team Status: Inactive Member Role Status Dates Dr. Jared Robertson MD Primary Care Provider, Referri ng Provider Active Perla Zayas OCCUPATIONAL PHYSICIAN, OCCUPATIONAL PHYSICIAN-C Attending Provider Active Team Status: Active Member Role Status Dates Dr. Jared Robertson MD Primary Care Provider, Referri ng Provider Active Dr. Danny Mathew DO Attending Provider, Other Prov ider Active Team Status: Inactive Member Role Status Dates Dr. Jared Robertson MD Primary Care Provider Active Dr. Maxwell Rich MD Attending Provider Active Yue Lozano OCCUPATIONAL PHYSICIAN, OCCUPATIONAL PHYSICIAN-C Referring Provider Active Team Status: Inactive Member Role Status Dates Dr. Jared Robertson MD Primary Care Provider, Referri ng Provider Active Dr. Maxwell Rich MD Attending Provider Active Team Status: Active Member Role Status Dates Dr. Jared Robertson MD Primary Care Provider Active Dr. Inder Bolaños MD Attending Provider Active Dr. Maxwell Rich MD Referring Provider Active Team Status: Active Member Role Status Dates Dr. Jared Robertson MD Primary Care Provider Active Dr. Maxwell Rich MD Attending Provid er, Referring Provider, Other Provider Active Team Status: Inactive Member Role Status Dates Dr. Jared Robertson MD Primary Care Provider, Referri ng Provider Active Dr. Danny Mathew DO Attending Provider Active Team Status: Inactive Member Role Status Dates Dr. Jraed Robertson MD Primary Care Provider Active Dr. Maxwell Rich MD Attending Provider, Referring Provider Active Team Status: Active Member Role Status Dates Dr. Jared Robertson MD Primary Care Provider, Referri ng Provider Active Dr. Hai Montelongo MD Attending Provider Active Team Status: Inactive Member Role Status Dates Dr. Jared Robertson MD Primary Care Provider, Referri ng Provider Active Dr. Hai Montelongo MD Attending Provider Active 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 Specialty Start Date End Date Jared Robertson MD [address] [place], [place] [address] PCP - General Family Medicine 07/08/15 Kaden Ortiz [address] [address] Cardiology 07/30/17 Team Status: Inactive Member Role Status Dates Dr. Jared Robertson MD Primary Care Provider Active Sakina STEPHENS PA-C Attending Provider Active Dr. Maxwell Rich MD Referring Provider Active Team Status: Inactive Member Role Status Dates Dr. Jared Robertson MD Primary Care Provider, Referri ng Provider Active Sakina STEPHENS PA-C Attending Provider Active Team Status: Active Member Role Status Dates Dr. Jared Robertson MD Primary Care Provider Active Dr. Danny Mathew DO Attending Provid er, Referring Provider, Other Provider Active Team Status: Inactive Member Role Status Dates Dr. Jared Robertson MD Primary Care Provider Active Dr. Danny Mathew DO Attending Provider, Referring Provider Active 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 Specialty Start Date End Date Jared Robertson MD [address] [place], [place] [id number] PCP - General Family Medicine 07/08/15 Kaden Ortiz [address] [phone] Cardiology 07/30/17 Team Status: Active Member Role Status Dates Dr. Jared Robertson MD Primary Care Provider Active Dr. Malika Rojas MD Emergency Provider Active Dr. Audi Esqueda DO Admit Provider, Attending Provid er Active 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 Specialty Start Date End Date Jared Robertson MD [address] [place], [place] [address] PCP - General Family Medicine 07/08/15 Kaden Ortiz [address] [phone] Cardiology 07/30/17 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 Specialty Start Date End Date Jared Robertson MD [address] [facility], [place] [address] PCP - General Family Medicine 07/08/15 Kaden Ortiz [address] [phone] Cardiology 07/30/17 Team Status: Active Member Role Status Dates Dr. Jared Robertson MD Primary Care Provider Active Dr. Malika Rojas MD Emergency Provider Active Dr. Audi Esqueda DO Admit Provider, At tending Provider, Other Provider Active Team Status: Active Member Role Status Dates Dr. Jared Robertson MD Primary Care Provider Active Dr. Audi Tadeo MD Attending Provider Active Team Status: Active Member Role Status Dates Dr. Jared Robertson MD Primary Care Provider Active Dr. Inder Bolaños MD Attending Provider Active Team Status: Inactive Member Role Status Dates Dr. Jared Robertson MD Primary Care Provider Active Dr. Malika Rojas MD Emergency Provider Active Dr. Audi Esqueda , DO Admit Provider, Attending Provid er Active 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 Specialty Start Date End Date Jared Robertson MD [address] [place] [address] PCP - General Family Medicine 07/08/15 Kaden Ortiz [address] [facility] [address] [address] Cardiology 07/30/17 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 Specialty Start Date End Date Jared Robertson MD [address] [place] [address] PCP - General Family Medicine 07/08/15 Kaden Ortiz [address] [address] Cardiology 07/30/17 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 Specialty Start Date End Date Jared Robertson MD [address] [place] [address] PCP - General Family Medicine 07/08/15 Kaden Ortiz [address] [address] Cardiology 07/30/17 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 Specialty Start Date End Date Jared Robertson MD [address] [place] [address] PCP - General Family Medicine 07/08/15 Kaden Ortiz [address] [address] Cardiology 07/30/17 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 Specialty Start Date End Date Jared Robertson MD [address] [place] [address] PCP - General Family Medicine 07/08/15 Kaden Ortiz [address] [address] Cardiology 07/30/17 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 Specialty Start Date End Date Jared Robertson MD [address] [place] [address] PCP - General Family Medicine 07/08/15 Kaden Ortiz [address] [address] Cardiology 07/30/17 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 Specialty Start Date End Date Jared Robertson MD [address] [place] [address] PCP - General Family Medicine 07/08/15 Kaden Ortiz MD [address] [address] Cardiology 07/30/17 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 Specialty Start Date End Date Jared Robertson MD [address] [place] [address] PCP - General Family Medicine 07/08/15 Kaden Ortiz MD [address] [address] Cardiology 07/30/17 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 Specialty Start Date End Date Jared Robertson MD [address] [place] [address] PCP - General Family Medicine 07/08/15 Kaden Ortiz MD [address] [address] Cardiology 07/30/17 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 Specialty Start Date End Date Jared Robertson MD [address] [place] [address] PCP - General Family Medicine 09/16/17 Team Status: Inactive Member Role Status Dates Dr. Jared Robertson MD Primary Care Provider, Referri ng Provider Active Dr. Audi Tadeo MD Attending Provider Active Team Status: Inactive Member Role Status Dates Dr. Jared Robertson MD Primary Care Provider Active Dr. Audi Tadeo MD Attending Provider, Referring Pro vider Active 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 Specialty Start Date End Date Jared Robertson MD [address] [place] [address] PCP - General Family Medicine 07/08/15 Kaden Ortiz MD [address] [address] Cardiology 07/30/17 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 Specialty Start Date End Date Jared Robertson MD [address] [place], [place] [phone] PCP - General Family Medicine 07/08/15 Kaden Ortiz MD [address] ANGEL TERRY [address] [address] Cardiology 07/30/17 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 Specialty Start Date End Date Jared Robertson MD [address] [place] [address] PCP - General Family Medicine 07/08/15 Kaden Ortiz MD [address] [place] [address] Cardiology 07/30/17 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 Specialty Start Date End Date Jared Robertson MD [address] [place] [address] PCP - General Family Medicine 07/08/15 Kaden Ortiz MD [address] [address] Cardiology 07/30/17 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 Specialty Start Date End Date Jared Robertson MD [address] [place] [address] PCP - General Family Medicine 07/08/15 Kaden Ortiz MD [address] [address] [place] [address] Cardiology 07/30/17 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 Specialty Start Date End Date Jared Robertson MD [address] [place] [address] PCP - General Family Medicine 07/08/15 Kaden Ortiz MD [address] [address] Cardiology 07/30/17 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 Specialty Start Date End Date Jared Robertson MD [address] [place] [address] PCP - General Family Medicine 07/08/15 Kaden Ortiz MD [address] [address] Cardiology 07/30/17 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 Specialty Start Date End Date Jared Robertson MD [address] [place] [address] PCP - General Family Medicine 07/08/15 Kaden Ortiz MD [address] [address] Cardiology 07/30/17 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 Specialty Start Date End Date Jared Robertson MD [address] [place] [address] PCP - General Family Medicine 07/08/15 Kaden Ortiz MD [address] [address] Cardiology 07/30/17 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 Specialty Start Date End Date Jared Robertson MD [address] [place] [address] PCP - General Family Medicine 07/08/15 Kaden Ortiz MD [address] [address] Cardiology 07/30/17 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 Specialty Start Date End Date Jared Robertson MD [address] [place] [address] PCP - General Family Medicine 07/08/15 Kaden Ortiz MD [address] [facility] [address] [place] [address] Cardiology 07/30/17 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 Specialty Start Date End Date Jared Robertson MD [address] [place] [address] PCP - General Family Medicine 07/08/15 Kaden Ortiz MD [address] [place] [address] Cardiology 07/30/17 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 Specialty Start Date End Date Jared Robertson MD [address] [place] [address] PCP - General Family Medicine 07/08/15 Kaden Ortiz MD [address] [place] [address] Cardiology 07/30/17 Team Status: Active Member Role Status Dates Dr. Jared Robertson MD Primary Care Provider Active Dr. Audi Tadeo MD Attending Provider, Referring Pro vider Active 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 Specialty Start Date End Date Jared Robertson MD [address] [place] [address] PCP - General Family Medicine 07/08/15 Kaden Ortiz MD [facility] [address] [place] [address] Cardiology 07/30/17 Team Status: Inactive Member Role Status Dates Dr. Jared Robertson MD Primary Care Provider Active Dr. Audi Camp , DO Emergency Provider Active 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 Specialty Start Date End Date Jared Robertson MD [address] [place] [address] PCP - General Family Medicine 07/08/15 Kaden Ortiz MD [address] [place] [address] Cardiology 07/30/17 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 Specialty Start Date End Date Jared Robertson MD [address] [place] [address] PCP - General Family Medicine 07/08/15 Kaden Ortiz MD [address] [address] Cardiology 07/30/17 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 Specialty Start Date End Date Jared Robertson MD [address] [place] [address] PCP - General Family Medicine 07/08/15 Kaden Ortiz MD [address] [address] Cardiology 07/30/17 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 Specialty Start Date End Date Jared Robertson MD [address] [place] [address] PCP - General Family Medicine 07/08/15 Kaden Ortiz MD [address] [place] [address] Cardiology 07/30/17 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 Specialty Start Date End Date Jared Robertson MD [address] [place] [address] PCP - General Family Medicine 07/08/15 Kaden Ortiz MD [address] [place] [address] Cardiology 07/30/17 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 Specialty Start Date End Date Jared Robertson MD [address] [place] [address] PCP - General Family Medicine 07/08/15 Kaden Ortiz MD [address] [place] [address] Cardiology 07/30/17 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 Specialty Start Date End Date Jared Robertson MD [address] [place] [address] PCP - General Family Medicine 07/08/15 Kaden Ortiz MD [address] [address] [place] [address], [place] [address] Cardiology 07/30/17 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 Specialty Start Date End Date Jared Robertson MD [address] [place] [address] PCP - General Family Medicine 07/08/15 Kaden Ortiz MD [address] [place] [address] Cardiology 07/30/17 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 Specialty Start Date End Date Jared Robertson MD [address] [place] [address] PCP - General Family Medicine 07/08/15 Kaden Ortiz MD [address] [place] [address], [place] [address] Cardiology 07/30/17 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 Specialty Start Date End Date Jared Robertson MD [address] [place] [address] PCP - General Family Medicine 07/08/15 Kaden Ortiz MD [address] [place] [address] Cardiology 07/30/17 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 Specialty Start Date End Date Jared Robertson MD [address] [place] [address] PCP - General Family Medicine 07/08/15 Kaden Ortiz MD [address] [place] [address] Cardiology 07/30/17 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 Specialty Start Date End Date Jared Robertson MD [address] [place] [address] PCP - General Family Medicine 09/16/17 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 Specialty Start Date End Date Jared Robertson MD [address] [place] [address] PCP - General Family Medicine 07/08/15 Kaden Ortiz MD [address] [address] Cardiology 07/30/17 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 Specialty Start Date End Date Jared Robertson MD [address] [place] [address] PCP - General Family Medicine 07/08/15 Kaden Ortiz MD [address] [address] Cardiology 07/30/17 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 Specialty Start Date End Date Jared Robertson MD [address] [place] [address] PCP - General Family Medicine 07/08/15 Kaden Ortiz MD [address] [address] Cardiology 07/30/17 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 Specialty Start Date End Date Jared Robertson MD [address] [place] [address] PCP - General Family Medicine 07/08/15 Kaden Ortiz MD [address] [address] Cardiology 07/30/17 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 Specialty Start Date End Date Jared Robertson MD [address] [place] [address] PCP - General Family Medicine 07/08/15 Kaden Ortiz MD [address] [address] Cardiology 07/30/17 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 Specialty Start Date End Date Jared Robertson MD [address] [place] [address] PCP - General Family Medicine 07/08/15 Kaden Ortiz MD [address] [place] [address] Cardiology 07/30/17 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 Specialty Start Date End Date Jared Robertson MD [address] [place] [address] PCP - General Family Medicine 07/08/15 Kaden Ortiz MD [address] [address] Cardiology 07/30/17 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 Specialty Start Date End Date Jared Robertson MD [address] [place] [address] PCP - General Family Medicine 07/08/15 Kaden Ortiz MD [address] [address] Cardiology 07/30/17 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 Specialty Start Date End Date Jared Robertson MD [address] [place] [address] PCP - General Family Medicine 07/08/15 Kaden Ortiz MD [address] [place] [address] Cardiology 07/30/17 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 Specialty Start Date End Date Jared Robertson MD [address] [place] [address] PCP - General Family Medicine 07/08/15 Kaden Ortiz MD [address] [place] [address] Cardiology 07/30/17 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 Specialty Start Date End Date Jared Robertson MD [address] [place] [address] PCP - General Family Medicine 07/08/15 Kaden Ortiz MD [address] [place] [address] Cardiology 07/30/17 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 Specialty Start Date End Date Jared Robertson MD [address] [place] [address] PCP - General Family Medicine 07/08/15 Kaden Ortiz MD [address] [place] [address], [place] [address] Cardiology 07/30/17 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 Specialty Start Date End Date Jared Robertson MD [address] [place] [address] PCP - General Family Medicine 07/08/15 Kaden Ortiz MD [address] [place] [address] Cardiology 07/30/17 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 Specialty Start Date End Date Jared Robertson MD [address] [place] [address] PCP - General Family Medicine 07/08/15 Kaden Ortiz MD [address] [address] Cardiology 07/30/17 Korina Aguilar, YSABEL.MATTRESS FINISHER [address] [place] [address] Cyber Engineer Family Medicine 01/22/24 Tanisha Garcia PA-C [address] [place] [address] Cyber Engineer Family Medicine 01/22/24 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 Specialty Start Date End Date Jared Robertson MD [address] [place] [address] PCP - General Family Medicine 07/08/15 Kaden Ortiz MD [address] [address] Cardiology 07/30/17 Korina Aguilar, WAITER/WAITRESS.MATTRESS FINISHER [address] [place] [address] Cyber Engineer Family Medicine 01/22/24 Tanisha Garcia PA-C [address] [place] [address] Cyber Engineer Family Medicine 01/22/24 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 Specialty Start Date End Date Jared Robertson MD [address] [place] [address] PCP - General Family Medicine 07/08/15 Kaden Ortiz MD [address] [place] [address] Cardiology 07/30/17 Korina Aguilar, YSABEL.MATTRESS FINISHER [address] [facility] [place] [address] [facility] Family [facility] 01/22/24 Tanisha Garcia PA-C [address] [place] [address] [facility] 01/22/24 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 Specialty Start Date End Date Jared Robertson MD [address] [place] [address] PCP - General Family Medicine 07/08/15 Kaden Ortiz MD 176 [facility] [address] [place] [address] Cardiology 07/30/17 Korina Aguilar, WAITER/WAITRESS.MATTRESS FINISHER [address] [facility] [place] [address] [facility] Family Medicine 01/22/24 Tanisha Garcia PA-C [address] [place] [address] [facility] 01/22/24 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 Specialty Start Date End Date Jared Robertson MD [address] [place] [address] PCP - General Family Medicine 07/08/15 Kaden Ortiz MD [address] [place] [address] Cardiology 07/30/17 Korina Aguilar APRN.MATTRESS FINISHER [address] [place] [address] Cyber Engineer Family Medicine 01/22/24 Tanisha Garcia PA-C [address] [place] [address] Cyber Engineer Family Medicine 01/22/24 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 Specialty Start Date End Date Jared Robertson MD [address] [place] [address] PCP - General Family Medicine 07/08/15 Kaden Ortiz MD [address] [address] Cardiology 07/30/17 Korina Aguilar, YSABEL.MATTRESS FINISHER [address] [place] [address] [facility] Family Medicine 01/22/24 Tanisha Garcia PA-C [address] [place] [address] [facility] 01/22/24 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 Specialty Start Date End Date Jared Robertson MD [address] [place] [address] PCP - General Family Medicine 07/08/15 Kaden Ortiz MD [address] [address] Cardiology 07/30/17 Korina Aguilar APRN.MATTRESS FINISHER [address] [place] [address] [facility] 01/22/24 Tanisha Garcia PA-C [address] [place] [address] [facility] 01/22/24 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 Specialty Start Date End Date Jared Robertson MD [address] [place] [address] PCP - General Family Medicine 07/08/15 Kaden Ortiz MD [address] [facility] [address] [place] [address] Cardiology 07/30/17 Korina Aguilar APRN.MATTRESS FINISHER [address] [place] [address] [facility] 01/22/24 Tanisha Garcia PA-C [address] [place] [address] [facility] 01/22/24 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 Specialty Start Date End Date Jared Robertson MD [address] [place] [address] PCP - General Family Medicine 07/08/15 Kaden Ortiz MD [address] [facility] [address] [place] [address] Cardiology 07/30/17 Korina Aguilar APRN.MATTRESS FINISHER [address] [place] [address] [employer] Family Medicine 01/22/24 Tanisha Garcia PA-C [address] [place] [address] Cyber Engineer Family Medicine 01/22/24 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 Specialty Start Date End Date Jared Robertson MD [facility] [place] [address] PCP - General Family Medicine 09/16/17 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 Specialty Start Date End Date Jared Robertson MD [address] [place] [address] PCP - General Family Medicine 07/08/15 Kaden Ortiz MD [facility] AN[address] T[address] [address] Cardiology 07/30/17 Korina Aguilar APRN.CNP [address] [place] [address] Cyber Engineer Family Medicine 01/22/24 Tanisha Garcia PA-C [address] [place] [address] Cyber Engineer Family Medicine 01/22/24 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 Specialty Start Date End Date Jared Robertson MD [address] [place] [address] PCP - General Family Medicine 07/08/15 Kaden Ortiz MD [address] [address] Cardiology 07/30/17 Korina Aguilar, YSABEL.MATTRESS FINISHER [address] [facility] [place] [address] [facility] 01/22/24 Tanisha Garcia PA-C [address] [place] [address] [facility] 01/22/24 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 Specialty Start Date End Date Jared Robertson MD [address] [place] [address] PCP - General Family Medicine 07/08/15 Kaden Ortiz MD [address] [place] [address] Cardiology 07/30/17 Korina Aguilar, WAITER/WAITRESS.MATTRESS FINISHER [address] [facility] [place] [address] [facility] 01/22/24 Tanisha Garcia PA-C [address] [place] [address] [facility] 01/22/24 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 Specialty Start Date End Date Jared Robertson MD [address] [place] [address] PCP - General Family Medicine 07/08/15 Kaden Ortiz MD [address] [facility] [address] [place] [address] Cardiology 07/30/17 Korina Aguilar, YSABEL.MATTRESS FINISHER [address] [place] [address] Cyber Engineer Family [facility] 07/17/24 Tanisha Garcia PA-C [address] [place] [address] Cyber Engineer [facility] [place] 07/17/24 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 Specialty Start Date End Date Jared Robertson MD [address] [place] [address] PCP - General Family Medicine 07/08/15 Kaden Ortiz MD [address] [address] Cardiology 07/30/17 Korina Aguilar, YSABEL.MATTRESS FINISHER [address] [place] [address] Cyber Engineer Family [facility] 07/17/24 Tanisha Garcia PA-C [address] [place] [address] [facility] 07/17/24 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 Specialty Start Date End Date Jared Robertson MD [address] [place] [address] PCP - General Family Medicine 07/08/15 Kaden Ortiz MD [address] [address] Cardiology 07/30/17 Korina Aguilar, YSABEL.MATTRESS FINISHER [address] [place] [address] Cyber Engineer Family [facility] 07/17/24 Tanisha Garcia PA-C [address] [place] [address] [facility] 07/17/24 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 Specialty Start Date End Date Jared Robertson MD [address] [place] [address] PCP - General Family Medicine 07/08/15 Kaden Ortiz MD [address] [address] Cardiology 07/30/17 Korina Aguilar APRN.MATTRESS FINISHER [address] [place] [address] [facility] 07/17/24 Tanisha Garcia PA-C [address] [place] [address] [facility] 07/17/24 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 Specialty Start Date End Date Jared Robertson MD [address] [place] [address] PCP - General Family Medicine 07/08/15 Kaden Ortiz MD [address] [address] Cardiology 07/30/17 Korina Aguilar APRN.MATTRESS FINISHER [address] [place] [address] [facility] Family [facility] 07/17/24 Tanisha Garcia PA-C [address] [place] [address] Cyber Engineer Family Medicine 07/17/24 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 Specialty Start Date End Date Jared Robertson MD [address] [place] [address] PCP - General Family Medicine 07/08/15 Kaden Ortiz MD [address]61 [facility] [address] [address] Cardiology 07/30/17 Korina Aguilar APRN.MATTRESS FINISHER [address] [place] [address] Cyber Engineer Family Medicine 07/17/24 Tanisha Garcia PA-C [address] [place] [address] Cyber Engineer Family Medicine 07/17/24 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 Specialty Start Date End Date Jared Robertson MD [address] [place] [address] PCP - General Family Medicine 07/08/15 Kaden Ortiz MD [address] [address] Cardiology 07/30/17 Korina Aguilar APRN.MATTRESS FINISHER [address] [place] [address] Cyber Engineer Family Medicine 07/17/24 Tanisha Garcia PA-C [address] [place] [address] Cyber Engineer Family Medicine 07/17/24 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 Specialty Start Date End Date Jared Robertson MD [address] [place] [address] PCP - General Family Medicine 07/08/15 Kaden Ortiz MD [address] [address] Cardiology 07/30/17 Korina Aguilar, WAITER/WAITRESS.MATTRESS FINISHER [address] [place] [address] Cyber Engineer Family Medicine 07/17/24 Tanisha Garcia PA-C [address] [place] [address] Cyber Engineer Family Medicine 07/17/24 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 Specialty Start Date End Date Jared Robertson MD [address] [place] [address] PCP - General Family Medicine 07/08/15 Kaden Ortiz MD [address] [address] Cardiology 07/30/17 Korina Aguilar, WAITER/WAITRESS.MATTRESS FINISHER [address] [place] [address] Cyber Engineer Family Medicine 07/17/24 Tanisha Garcia PA-C [address] [place] [address] Cyber Engineer Family Medicine 07/17/24 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 Specialty Start Date End Date Jared Robertson MD [address] [place] [address] PCP - General Family Medicine 07/08/15 Kaden Ortiz MD [address] [address] Cardiology 07/30/17 Korina Aguilar APRN.CNP [address] [place], [place] [address] Cyber Engineer Family [facility] 07/17/24 Tanisha Garcia PA-C [address] [place] [address] Cyber Engineer [facility] [place] 07/17/24 Source Comments (unrecognize d section and content) In the event this informatio n is protected by the Federal Confidentiality of Alcohol and Drug Abuse Patient Records regulations: The Federal rules restrict any use of the information to criminally investigate or prosecute any alcohol or drug abuse patient.[facility] CenterIn the event this information is protected by the Federal Confidentiality of Alcohol and Drug Abuse Patient Records regulations: The Federal rules restrict any use of the information to criminally investigate or prosecute any alcohol or drug abuse patient.[facility] CenterIn the event this information is protected by the Federal Confidentiality of Alcohol and Drug Abuse Patient Records regulations: The Federal rules restrict any use of the information to criminally investigate or prosecute any alcohol or drug abuse patient.[facility] CenterIn the event this information is protected by the Federal Confidentiality of Alcohol and Drug Abuse Patient Records regulations: The Federal rules restrict any use of the information to criminally investigate or prosecute any alcohol or drug abuse patient.[facility] CenterIn the event this information is protected by the Federal Confidentiality of Alcohol and Drug Abuse Patient Records regulations: The Federal rules restrict any use of the information to criminally investigate or prosecute any alcohol or drug abuse patient.[facility] CenterIn the event this information is protected by the Federal Confidentiality of Alcohol and Drug Abuse Patient Records regulations: The Federal rules restrict any use of the information to criminally investigate or prosecute any alcohol or drug abuse patient.[facility] CenterIn the event this information is protected by the Federal Confidentiality of Alcohol and Drug Abuse Patient Records regulations: The Federal rules restrict any use of the information to criminally investigate or prosecute any alcohol or drug abuse patient.[facility] CenterIn the event this information is protected by the Federal Confidentiality of Alcohol and Drug Abuse Patient Records regulations: The Federal rules restrict any use of the information to criminally investigate or prosecute any alcohol or drug abuse patient.[facility] CenterIn the event this information is protected by the Federal Confidentiality of Alcohol and Drug Abuse Patient Records regulations: The Federal rules restrict any use of the information to criminally investigate or prosecute any alcohol or drug abuse patient.[facility] CenterIn the event this information is protected by the Federal Confidentiality of Alcohol and Drug Abuse Patient Records regulations: The Federal rules restrict any use of the information to criminally investigate or prosecute any alcohol or drug abuse patient.[facility] CenterIn the event this information is protected by the Federal Confidentiality of Alcohol and Drug Abuse Patient Records regulations: The Federal rules restrict any use of the information to criminally investigate or prosecute any alcohol or drug abuse patient.[facility] CenterIn the event this information is protected by the Federal Confidentiality of Alcohol and Drug Abuse Patient Records regulations: The Federal rules restrict any use of the information to criminally investigate or prosecute any alcohol or drug abuse patient.[facility] CenterIn the event this information is protected by the Federal Confidentiality of Alcohol and Drug Abuse Patient Records regulations: The Federal rules restrict any use of the information to criminally investigate or prosecute any alcohol or drug abuse patient.[facility] CenterIn the event this information is protected by the Federal Confidentiality of Alcohol and Drug Abuse Patient Records regulations: The Federal rules restrict any use of the information to criminally investigate or prosecute any alcohol or drug abuse patient.[facility] CenterIn the event this information is protected by the Federal Confidentiality of Alcohol and Drug Abuse Patient Records regulations: The Federal rules restrict any use of the information to criminally investigate or prosecute any alcohol or drug abuse patient.[facility] CenterIn the event this information is protected by the Federal Confidentiality of Alcohol and Drug Abuse Patient Records regulations: The Federal rules restrict any use of the information to criminally investigate or prosecute any alcohol or drug abuse patient.[facility] CenterIn the event this information is protected by the Federal Confidentiality of Alcohol and Drug Abuse Patient Records regulations: The Federal rules restrict any use of the information to criminally investigate or prosecute any alcohol or drug abuse patient.[facility] CenterIn the event this information is protected by the Federal Confidentiality of Alcohol and Drug Abuse Patient Records regulations: The Federal rules restrict any use of the information to criminally investigate or prosecute any alcohol or drug abuse patient.[facility] CenterIn the event this information is protected by the Federal Confidentiality of Alcohol and Drug Abuse Patient Records regulations: The Federal rules restrict any use of the information to criminally investigate or prosecute any alcohol or drug abuse patient.[facility] CenterIn the event this information is protected by the Federal Confidentiality of Alcohol and Drug Abuse Patient Records regulations: The Federal rules restrict any use of the information to criminally investigate or prosecute any alcohol or drug abuse patient.[facility] CenterIn the event this information is protected by the Federal Confidentiality of Alcohol and Drug Abuse Patient Records regulations: The Federal rules restrict any use of the information to criminally investigate or prosecute any alcohol or drug abuse patient.[facility] CenterIn the event this information is protected by the Federal Confidentiality of Alcohol and Drug Abuse Patient Records regulations: The Federal rules restrict any use of the information to criminally investigate or prosecute any alcohol or drug abuse patient.[facility] CenterIn the event this information is protected by the Federal Confidentiality of Alcohol and Drug Abuse Patient Records regulations: The Federal rules restrict any use of the information to criminally investigate or prosecute any alcohol or drug abuse patient.[facility] CenterIn the event this information is protected by the Federal Confidentiality of Alcohol and Drug Abuse Patient Records regulations: The Federal rules restrict any use of the information to criminally investigate or prosecute any alcohol or drug abuse patient.[facility] CenterIn the event this information is protected by the Federal Confidentiality of Alcohol and Drug Abuse Patient Records regulations: The Federal rules restrict any use of the information to criminally investigate or prosecute any alcohol or drug abuse patient.[facility] CenterIn the event this information is protected by the Federal Confidentiality of Alcohol and Drug Abuse Patient Records regulations: The Federal rules restrict any use of the information to criminally investigate or prosecute any alcohol or drug abuse patient.[facility] CenterIn the event this information is protected by the Federal Confidentiality of Alcohol and Drug Abuse Patient Records regulations: The Federal rules restrict any use of the information to criminally investigate or prosecute any alcohol or drug abuse patient.[facility] CenterIn the event this information is protected by the Federal Confidentiality of Alcohol and Drug Abuse Patient Records regulations: The Federal rules restrict any use of the information to criminally investigate or prosecute any alcohol or drug abuse patient.[facility] CenterIn the event this information is protected by the Federal Confidentiality of Alcohol and Drug Abuse Patient Records regulations: The Federal rules restrict any use of the information to criminally investigate or prosecute any alcohol or drug abuse patient.[facility] CenterIn the event this information is protected by the Federal Confidentiality of Alcohol and Drug Abuse Patient Records regulations: The Federal rules restrict any use of the information to criminally investigate or prosecute any alcohol or drug abuse patient.[facility] CenterIn the event this information is protected by the Federal Confidentiality of Alcohol and Drug Abuse Patient Records regulations: The Federal rules restrict any use of the information to criminally investigate or prosecute any alcohol or drug abuse patient.[facility] CenterIn the event this information is protected by the Federal Confidentiality of Alcohol and Drug Abuse Patient Records regulations: The Federal rules restrict any use of the information to criminally investigate or prosecute any alcohol or drug abuse patient.[facility] CenterIn the event this information is protected by the Federal Confidentiality of Alcohol and Drug Abuse Patient Records regulations: The Federal rules restrict any use of the information to criminally investigate or prosecute any alcohol or drug abuse patient.[facility] CenterIn the event this information is protected by the Federal Confidentiality of Alcohol and Drug Abuse Patient Records regulations: The Federal rules restrict any use of the information to criminally investigate or prosecute any alcohol or drug abuse patient.[facility] CenterIn the event this information is protected by the Federal Confidentiality of Alcohol and Drug Abuse Patient Records regulations: The Federal rules restrict any use of the information to criminally investigate or prosecute any alcohol or drug abuse patient.[facility] CenterIn the event this information is protected by the Federal Confidentiality of Alcohol and Drug Abuse Patient Records regulations: The Federal rules restrict any use of the information to criminally investigate or prosecute any alcohol or drug abuse patient.[facility] CenterIn the event this information is protected by the Federal Confidentiality of Alcohol and Drug Abuse Patient Records regulations: The Federal rules restrict any use of the information to criminally investigate or prosecute any alcohol or drug abuse patient.[facility] CenterIn the event this information is protected by the Federal Confidentiality of Alcohol and Drug Abuse Patient Records regulations: The Federal rules restrict any use of the information to criminally investigate or prosecute any alcohol or drug abuse patient.[facility] CenterIn the event this information is protected by the Federal Confidentiality of Alcohol and Drug Abuse Patient Records regulations: The Federal rules restrict any use of the information to criminally investigate or prosecute any alcohol or drug abuse patient.[facility] CenterIn the event this information is protected by the Federal Confidentiality of Alcohol and Drug Abuse Patient Records regulations: The Federal rules restrict any use of the information to criminally investigate or prosecute any alcohol or drug abuse patient.[facility] CenterIn the event this information is protected by the Federal Confidentiality of Alcohol and Drug Abuse Patient Records regulations: The Federal rules restrict any use of the information to criminally investigate or prosecute any alcohol or drug abuse patient.[facility] CenterIn the event this information is protected by the Federal Confidentiality of Alcohol and Drug Abuse Patient Records regulations: The Federal rules restrict any use of the information to criminally investigate or prosecute any alcohol or drug abuse patient.[facility] CenterIn the event this information is protected by the Federal Confidentiality of Alcohol and Drug Abuse Patient Records regulations: The Federal rules restrict any use of the information to criminally investigate or prosecute any alcohol or drug abuse patient.[facility] CenterIn the event this information is protected by the Federal Confidentiality of Alcohol and Drug Abuse Patient Records regulations: The Federal rules restrict any use of the information to criminally investigate or prosecute any alcohol or drug abuse patient.[facility] CenterIn the event this information is protected by the Federal Confidentiality of Alcohol and Drug Abuse Patient Records regulations: The Federal rules restrict any use of the information to criminally investigate or prosecute any alcohol or drug abuse patient.[facility] CenterIn the event this information is protected by the Federal Confidentiality of Alcohol and Drug Abuse Patient Records regulations: The Federal rules restrict any use of the information to criminally investigate or prosecute any alcohol or drug abuse patient.[facility] CenterIn the event this information is protected by the Federal Confidentiality of Alcohol and Drug Abuse Patient Records regulations: The Federal rules restrict any use of the information to criminally investigate or prosecute any alcohol or drug abuse patient.[facility] CenterIn the event this information is protected by the Federal Confidentiality of Alcohol and Drug Abuse Patient Records regulations: The Federal rules restrict any use of the information to criminally investigate or prosecute any alcohol or drug abuse patient.[facility] CenterIn the event this information is protected by the Federal Confidentiality of Alcohol and Drug Abuse Patient Records regulations: The Federal rules restrict any use of the information to criminally investigate or prosecute any alcohol or drug abuse patient.[facility] CenterIn the event this information is protected by the Federal Confidentiality of Alcohol and Drug Abuse Patient Records regulations: The Federal rules restrict any use of the information to criminally investigate or prosecute any alcohol or drug abuse patient.[facility] CenterIn the event this information is protected by the Federal Confidentiality of Alcohol and Drug Abuse Patient Records regulations: The Federal rules restrict any use of the information to criminally investigate or prosecute any alcohol or drug abuse patient.[facility] CenterIn the event this information is protected by the Federal Confidentiality of Alcohol and Drug Abuse Patient Records regulations: The Federal rules restrict any use of the information to criminally investigate or prosecute any alcohol or drug abuse patient.[facility] CenterIn the event this information is protected by the Federal Confidentiality of Alcohol and Drug Abuse Patient Records regulations: The Federal rules restrict any use of the information to criminally investigate or prosecute any alcohol or drug abuse patient.[facility] CenterIn the event this information is protected by the Federal Confidentiality of Alcohol and Drug Abuse Patient Records regulations: The Federal rules restrict any use of the information to criminally investigate or prosecute any alcohol or drug abuse patient.[facility] CenterIn the event this information is protected by the Federal Confidentiality of Alcohol and Drug Abuse Patient Records regulations: The Federal rules restrict any use of the information to criminally investigate or prosecute any alcohol or drug abuse patient.[facility] CenterIn the event this information is protected by the Federal Confidentiality of Alcohol and Drug Abuse Patient Records regulations: The Federal rules restrict any use of the information to criminally investigate or prosecute any alcohol or drug abuse patient.[facility] CenterIn the event this information is protected by the Federal Confidentiality of Alcohol and Drug Abuse Patient Records regulations: The Federal rules restrict any use of the information to criminally investigate or prosecute any alcohol or drug abuse patient.[facility] CenterIn the event this information is protected by the Federal Confidentiality of Alcohol and Drug Abuse Patient Records regulations: The Federal rules restrict any use of the information to criminally investigate or prosecute any alcohol or drug abuse patient.[facility] CenterIn the event this information is protected by the Federal Confidentiality of Alcohol and Drug Abuse Patient Records regulations: The Federal rules restrict any use of the information to criminally investigate or prosecute any alcohol or drug abuse patient.[facility] CenterIn the event this information is protected by the Federal Confidentiality of Alcohol and Drug Abuse Patient Records regulations: The Federal rules restrict any use of the information to criminally investigate or prosecute any alcohol or drug abuse patient.[facility] CenterIn the event this information is protected by the Federal Confidentiality of Alcohol and Drug Abuse Patient Records regulations: The Federal rules restrict any use of the information to criminally investigate or prosecute any alcohol or drug abuse patient.[facility] CenterIn the event this information is protected by the Federal Confidentiality of Alcohol and Drug Abuse Patient Records regulations: The Federal rules restrict any use of the information to criminally investigate or prosecute any alcohol or drug abuse patient.[facility] CenterIn the event this information is protected by the Federal Confidentiality of Alcohol and Drug Abuse Patient Records regulations: The Federal rules restrict any use of the information to criminally investigate or prosecute any alcohol or drug abuse patient.[facility] CenterIn the event this information is protected by the Federal Confidentiality of Alcohol and Drug Abuse Patient Records regulations: The Federal rules restrict any use of the information to criminally investigate or prosecute any alcohol or drug abuse patient.[facility] CenterIn the event this information is protected by the Federal Confidentiality of Alcohol and Drug Abuse Patient Records regulations: The Federal rules restrict any use of the information to criminally investigate or prosecute any alcohol or drug abuse patient.[facility] CenterIn the event this information is protected by the Federal Confidentiality of Alcohol and Drug Abuse Patient Records regulations: The Federal rules restrict any use of the information to criminally investigate or prosecute any alcohol or drug abuse patient.[facility] CenterIn the event this information is protected by the Federal Confidentiality of Alcohol and Drug Abuse Patient Records regulations: The Federal rules restrict any use of the information to criminally investigate or prosecute any alcohol or drug abuse patient.[facility] CenterIn the event this information is protected by the Federal Confidentiality of Alcohol and Drug Abuse Patient Records regulations: The Federal rules restrict any use of the information to criminally investigate or prosecute any alcohol or drug abuse patient.[facility] CenterIn the event this information is protected by the Federal Confidentiality of Alcohol and Drug Abuse Patient Records regulations: The Federal rules restrict any use of the information to criminally investigate or prosecute any alcohol or drug abuse patient.[facility] CenterIn the event this information is protected by the Federal Confidentiality of Alcohol and Drug Abuse Patient Records regulations: The Federal rules restrict any use of the information to criminally investigate or prosecute any alcohol or drug abuse patient.[facility] CenterIn the event this information is protected by the Federal Confidentiality of Alcohol and Drug Abuse Patient Records regulations: The Federal rules restrict any use of the information to criminally investigate or prosecute any alcohol or drug abuse patient.[facility] CenterIn the event this information is protected by the Federal Confidentiality of Alcohol and Drug Abuse Patient Records regulations: The Federal rules restrict any use of the information to criminally investigate or prosecute any alcohol or drug abuse patient.[facility] CenterIn the event this information is protected by the Federal Confidentiality of Alcohol and Drug Abuse Patient Records regulations: The Federal rules restrict any use of the information to criminally investigate or prosecute any alcohol or drug abuse patient.[facility] CenterIn the event this information is protected by the Federal Confidentiality of Alcohol and Drug Abuse Patient Records regulations: The Federal rules restrict any use of the information to criminally investigate or prosecute any alcohol or drug abuse patient.[facility] CenterIn the event this information is protected by the Federal Confidentiality of Alcohol and Drug Abuse Patient Records regulations: The Federal rules restrict any use of the information to criminally investigate or prosecute any alcohol or drug abuse patient.[facility] CenterIn the event this information is protected by the Federal Confidentiality of Alcohol and Drug Abuse Patient Records regulations: The Federal rules restrict any use of the information to criminally investigate or prosecute any alcohol or drug abuse patient.[facility] CenterIn the event this information is protected by the Federal Confidentiality of Alcohol and Drug Abuse Patient Records regulations: The Federal rules restrict any use of the information to criminally investigate or prosecute any alcohol or drug abuse patient.[facility] CenterIn the event this information is protected by the Federal Confidentiality of Alcohol and Drug Abuse Patient Records regulations: The Federal rules restrict any use of the information to criminally investigate or prosecute any alcohol or drug abuse patient.[facility] CenterIn the event this information is protected by the Federal Confidentiality of Alcohol and Drug Abuse Patient Records regulations: The Federal rules restrict any use of the information to criminally investigate or prosecute any alcohol or drug abuse patient.[facility] CenterIn the event this information is protected by the Federal Confidentiality of Alcohol and Drug Abuse Patient Records regulations: The Federal rules restrict any use of the information to criminally investigate or prosecute any alcohol or drug abuse patient.[facility] CenterIn the event this information is protected by the Federal Confidentiality of Alcohol and Drug Abuse Patient Records regulations: The Federal rules restrict any use of the information to criminally investigate or prosecute any alcohol or drug abuse patient.[facility] CenterIn the event this information is protected by the Federal Confidentiality of Alcohol and Drug Abuse Patient Records regulations: The Federal rules restrict any use of the information to criminally investigate or prosecute any alcohol or drug abuse patient.[facility] CenterIn the event this information is protected by the Federal Confidentiality of Alcohol and Drug Abuse Patient Records regulations: The Federal rules restrict any use of the information to criminally investigate or prosecute any alcohol or drug abuse patient.[facility] CenterIn the event this information is protected by the Federal Confidentiality of Alcohol and Drug Abuse Patient Records regulations: The Federal rules restrict any use of the information to criminally investigate or prosecute any alcohol or drug abuse patient.[facility] CenterIn the event this information is protected by the Federal Confidentiality of Alcohol and Drug Abuse Patient Records regulations: The Federal rules restrict any use of the information to criminally investigate or prosecute any alcohol or drug abuse patient.[facility] CenterIn the event this information is protected by the Federal Confidentiality of Alcohol and Drug Abuse Patient Records regulations: The Federal rules restrict any use of the information to criminally investigate or prosecute any alcohol or drug abuse patient.[facility] CenterIn the event this information is protected by the Federal Confidentiality of Alcohol and Drug Abuse Patient Records regulations: The Federal rules restrict any use of the information to criminally investigate or prosecute any alcohol or drug abuse patient.[facility] CenterIn the event this information is protected by the Federal Confidentiality of Alcohol and Drug Abuse Patient Records regulations: The Federal rules restrict any use of the information to criminally investigate or prosecute any alcohol or drug abuse patient.[facility] CenterIn the event this information is protected by the Federal Confidentiality of Alcohol and Drug Abuse Patient Records regulations: The Federal rules restrict any use of the information to criminally investigate or prosecute any alcohol or drug abuse patient.[facility] CenterIn the event this information is protected by the Federal Confidentiality of Alcohol and Drug Abuse Patient Records regulations: The Federal rules restrict any use of the information to criminally investigate or prosecute any alcohol or drug abuse patient.[facility] CenterIn the event this information is protected by the Federal Confidentiality of Alcohol and Drug Abuse Patient Records regulations: The Federal rules restrict any use of the information to criminally investigate or prosecute any alcohol or drug abuse patient.[facility] CenterIn the event this information is protected by the Federal Confidentiality of Alcohol and Drug Abuse Patient Records regulations: The Federal rules restrict any use of the information to criminally investigate or prosecute any alcohol or drug abuse patient.[facility] CenterIn the event this information is protected by the Federal Confidentiality of Alcohol and Drug Abuse Patient Records regulations: The Federal rules restrict any use of the information to criminally investigate or prosecute any alcohol or drug abuse patient.[facility] CenterIn the event this information is protected by the Federal Confidentiality of Alcohol and Drug Abuse Patient Records regulations: The Federal rules restrict any use of the information to criminally investigate or prosecute any alcohol or drug abuse patient.[facility] CenterIn the event this information is protected by the Federal Confidentiality of Alcohol and Drug Abuse Patient Records regulations: The Federal rules restrict any use of the information to criminally investigate or prosecute any alcohol or drug abuse patient.[facility] CenterIn the event this information is protected by the Federal Confidentiality of Alcohol and Drug Abuse Patient Records regulations: The Federal rules restrict any use of the information to criminally investigate or prosecute any alcohol or drug abuse patient.[facility] CenterIn the event this information is protected by the Federal Confidentiality of Alcohol and Drug Abuse Patient Records regulations: The Federal rules restrict any use of the information to criminally investigate or prosecute any alcohol or drug abuse patient.[facility] CenterIn the event this information is protected by the Federal Confidentiality of Alcohol and Drug Abuse Patient Records regulations: The Federal rules restrict any use of the information to criminally investigate or prosecute any alcohol or drug abuse patient.[facility] CenterIn the event this information is protected by the Federal Confidentiality of Alcohol and Drug Abuse Patient Records regulations: The Federal rules restrict any use of the information to criminally investigate or prosecute any alcohol or drug abuse patient.[facility] CenterIn the event this information is protected by the Federal Confidentiality of Alcohol and Drug Abuse Patient Records regulations: The Federal rules restrict any use of the information to criminally investigate or prosecute any alcohol or drug abuse patient.[facility] CenterIn the event this information is protected by the Federal Confidentiality of Alcohol and Drug Abuse Patient Records regulations: The Federal rules restrict any use of the information to criminally investigate or prosecute any alcohol or drug abuse patient.[facility] CenterIn the event this information is protected by the Federal Confidentiality of Alcohol and Drug Abuse Patient Records regulations: The Federal rules restrict any use of the information to criminally investigate or prosecute any alcohol or drug abuse patient.[facility] CenterIn the event this information is protected by the Federal Confidentiality of Alcohol and Drug Abuse Patient Records regulations: The Federal rules restrict any use of the information to criminally investigate or prosecute any alcohol or drug abuse patient.[facility] CenterIn the event this information is protected by the Federal Confidentiality of Alcohol and Drug Abuse Patient Records regulations: The Federal rules restrict any use of the information to criminally investigate or prosecute any alcohol or drug abuse patient.[facility] CenterIn the event this information is protected by the Federal Confidentiality of Alcohol and Drug Abuse Patient Records regulations: The Federal rules restrict any use of the information to criminally investigate or prosecute any alcohol or drug abuse patient.[facility] CenterIn the event this information is protected by the Federal Confidentiality of Alcohol and Drug Abuse Patient Records regulations: The Federal rules restrict any use of the information to criminally investigate or prosecute any alcohol or drug abuse patient.[facility] CenterIn the event this information is protected by the Federal Confidentiality of Alcohol and Drug Abuse Patient Records regulations: The Federal rules restrict any use of the information to criminally investigate or prosecute any alcohol or drug abuse patient.[facility] CenterIn the event this information is protected by the Federal Confidentiality of Alcohol and Drug Abuse Patient Records regulations: The Federal rules restrict any use of the information to criminally investigate or prosecute any alcohol or drug abuse patient.[facility] CenterIn the event this information is protected by the Federal Confidentiality of Alcohol and Drug Abuse Patient Records regulations: The Federal rules restrict any use of the information to criminally investigate or prosecute any alcohol or drug abuse patient.[facility] CenterIn the event this information is protected by the Federal Confidentiality of Alcohol and Drug Abuse Patient Records regulations: The Federal rules restrict any use of the information to criminally investigate or prosecute any alcohol or drug abuse patient.[facility] CenterIn the event this information is protected by the Federal Confidentiality of Alcohol and Drug Abuse Patient Records regulations: The Federal rules restrict any use of the information to criminally investigate or prosecute any alcohol or drug abuse patient.[facility] CenterIn the event this information is protected by the Federal Confidentiality of Alcohol and Drug Abuse Patient Records regulations: The Federal rules restrict any use of the information to criminally investigate or prosecute any alcohol or drug abuse patient.[facility] CenterIn the event this information is protected by the Federal Confidentiality of Alcohol and Drug Abuse Patient Records regulations: The Federal rules restrict any use of the information to criminally investigate or prosecute any alcohol or drug abuse patient.[facility] CenterIn the event this information is protected by the Federal Confidentiality of Alcohol and Drug Abuse Patient Records regulations: The Federal rules restrict any use of the information to criminally investigate or prosecute any alcohol or drug abuse patient.[facility] CenterIn the event this information is protected by the Federal Confidentiality of Alcohol and Drug Abuse Patient Records regulations: The Federal rules restrict any use of the information to criminally investigate or prosecute any alcohol or drug abuse patient.[facility] CenterIn the event this information is protected by the Federal Confidentiality of Alcohol and Drug Abuse Patient Records regulations: The Federal rules restrict any use of the information to criminally investigate or prosecute any alcohol or drug abuse patient.[facility] CenterIn the event this information is protected by the Federal Confidentiality of Alcohol and Drug Abuse Patient Records regulations: The Federal rules restrict any use of the information to criminally investigate or prosecute any alcohol or drug abuse patient.[facility] CenterIn the event this information is protected by the Federal Confidentiality of Alcohol and Drug Abuse Patient Records regulations: The Federal rules restrict any use of the information to criminally investigate or prosecute any alcohol or drug abuse patient.[facility] CenterIn the event this information is protected by the Federal Confidentiality of Alcohol and Drug Abuse Patient Records regulations: The Federal rules restrict any use of the information to criminally investigate or prosecute any alcohol or drug abuse patient.[facility] CenterIn the event this information is protected by the Federal Confidentiality of Alcohol and Drug Abuse Patient Records regulations: The Federal rules restrict any use of the information to criminally investigate or prosecute any alcohol or drug abuse patient.[facility] Goals (unrecognized section and content) Goals may be documented in a n alternate sectionGoals may be documented in an alternate section Inactive Administered Medications - up to 3 most recent administrations Administered Medications (un recognized section and content) Medication Order MAR Action Action Date Dose Rate Site acetaminophen 650 mg tab(s) (TYLENOL) 650 mg, ORAL, ONCE, 1 dose, On Wed04/06/23 at 0830, No more than 4000 mg of acetaminophen should be given per day (FROM ALL SOURCES), If ordered PRN for pain, patient/guardian may elect to receive this medication for higher pain levels INSTEAD of the opioid, if preferred: N/A Given 04/06/2023 8:36 AM EST 650 mg diphenhydrAMINE 50 mg injection (BENADRYL) 50 mg, INTRAVENOUS, ONCE, 1 dose, On Wed04/06/23 at 0830 Given 04/06/2023 8:36 AM EST 50 mg methylPREDNISolone sod succinate(PF) 100 mg injection (SOLU-Medrol) 100 mg, INTRAVENOUS, ONCE, 1 dose, On Wed04/06/23 at 0830 Given 04/06/2023 8:39 AM EST 100 mg riTUXimab-pvvr 1,000 mg in NaCl 0.9% 640 mL (RUXIENCE) 1,000 mg, INTRAVENOUS, ONCE, 1 dose, On Wed04/06/23 at 0830, Infuse at rate of 50mg/hr. If no hypotension, increase rate every 30 minutes by 50mg/hr to a maximum rate of 400mg/hr. nstructions. exp 209904/06/23 (room temp) Refrigerate. Rate/Dose Change 04/06/2023 12:34 PM EST 256 mL/hr Rate/Dose Change 04/06/2023 12:03 PM EST Rate/Dose Change 04/06/2023 11:33 AM EST 192 mL /hr Inactive Administered Medications - up to 3 most recent administrations Medication Order MAR Action Action Date Dose Rate Site acetaminophen 650 mg tab(s) (TYLENOL) 650 mg, ORAL, ONCE, 1 dose, On Wed04/21/23 at 0800, No more than 4000 mg of acetaminophen should be given per day (FROM ALL SOURCES), If ordered PRN for pain, patient/guardian may elect to receive this medication for higher pain levels INSTEAD of the opioid, if preferred: N/A Given 04/21/2023 8:22 AM EST 650 mg diphenhydrAMINE 50 mg injection (BENADRYL) 50 mg, INTRAVENOUS, ONCE, 1 dose, On Wed04/21/23 at 0800 Given 04/21/2023 8:22 AM EST 50 mg methylPREDNISolone sod succinate(PF) 100 mg injection (SOLU-Medrol) 100 mg, INTRAVENOUS, ONCE, 1 dose, On Wed04/21/23 at 0800 Given 04/21/2023 8:22 AM EST 100 mg riTUXimab-pvvr 1,000 mg in NaCl 0.9% 640 mL (RUXIENCE) 1,000 mg, INTRAVENOUS, ONCE, 1 dose, On Wed04/21/23 at 0800, exp 0900 3/7/24 (room temp) Infuse at rate of 100mg/hr. If no hypotension, increase rate every 30 minutes by 100mg/hr to a maximum rate of 400mg/hr. Refrigerate. Rate/Dose Change 04/21/2023 10:07 AM EST 272 mL/hr Rate/Dose Change 04/21/2023 9:36 AM EST 204 mL/ hr Rate/Dose Change 04/21/2023 9:04 AM EST 136 mL/ hr FOR RECORDS PERTAINING TO PATIENTS WHO ARE [...] BE BASED ON THE PRIMARY CLINICAL RECORDS. [facility] [employer] [facility]. provides no warranty or guarantee of the accuracy or completeness of information in this document.
[2025-01-20] MEDS: Lidocaine 1% (20 ml mdv) 20 ML Vial INFILT (05:59)
--- NOTE | 2025-01-20 06:09 | RAD_ITS ---
PROCEDURE: HAND MIN 3 VIEWS 01/20/2025 REASON FOR EXAM: FALL TECHNIQUE: Procedure Code: JODY Modality: DX Procedure: HAND MIN 3 VIEWS Laterality: Right COMPARISON: None FINDINGS: Bones: No acute bony abnormalities. Joints: Unremarkable Soft tissues: No soft tissue abnormalities. RAD/Hand Min 3 Views IMPRESSION: No acute osseous abnormalities. Reading Location: [id number]
--- NOTE | 2025-01-20 06:16 | ED.VIS.FALL ---
HPI HPI - Fall History of Present Illness Chief Complaint: Fall Narrative Narrative: Patient was seen and examined after presenting to ED for mechanical fall hit his head has a laceration to it not on blood thinners laceration is above his right eyebrow denies chest pain or pressure or shortness of breath endorses pain at his right thumb he believes when he went to go catch himself he injured it. PFSH PFSH Medical History Neuropathy associated with anti-MAG antibody Difficulty swallowing Wears glasses Cancer Gout Arthritis Blood disorder High cholesterol Back pain History of IBS History of hiatal hernia Leg cramps Cardiology follow-up encounter History of echocardiogram History of stress test Anemia Former smoker Intractable low back pain Lumbosacral strain Lymphoma Basal cell carcinoma (BCC) in situ of skin Pure hypercholesterolemia Shortness of breath Fatigue Hyperlipidemia AAA (abdominal aortic aneurysm) without rupture Palpitations Sinus bradycardia Home Medications ?Medication ?Instructions ?Recorded ?Last Taken ?Type omeprazole 20 mg capsule,delayed 40 mg PO DAILY PRN ACID REFLUX 01/15/22 08/30/22 History release azithromycin 250 mg tablet mg PO 01/20/25 Unknown History codeine 10 mg-guaifenesin 100 mg/5 5 ml PO 4X/DAY PRN 01/20/25 Unknown History mL oral liquid lactulose 10 gram/15 mL oral 30 ml PO BID 01/20/25 Unknown History solution (Constulose) nirmatrelvir 150 mg (10)-ritonavir 2 tab PO BID 01/20/25 Unknown History 100 mg (10) tablets in a dose pack (Paxlovid) Allergy/AdvReac Type Severity Reaction Status Date / Time No Known Allergies Allergy Verified 01/20/25 05:26 Family History Father Colon cancer Mother Alzheimers disease Brother Multiple sclerosis Surgical History Status post laparoscopic Luis fundoplication History of esophagogastroduodenoscopy (EGD) (~11/2021) History of colonoscopy (~11/2021) History of cardiac catheterization History of AAA (abdominal aortic aneurysm) repair History of cholecystectomy aorto bi-common iliac stent graft (~11/2014) Social History Smoking Status: Former smoker how long ago did patient quit smokin alcohol intake: current alcohol intake frequency: a few times a week Alcohol type: wine and hard liquor substance use type: does not use caffeine: Yes Type: coffee what type of physical activity do you participate in: none seatbelt use: always do you feel safe at home: Yes ROS ROS ED ROS Narrative Pertinent Positives: Mechanical fall head injury laceration right thumb injury Pertinent Negatives: Chest pain shortness of breath pelvic pain hip pain loss of consciousness anticoagulation The remainder of review of systems negative unless otherwise stated in the HPI above. Systems reviewed including constitutional, psychiatric, cardiovascular, respiratory, integument, HENT, gastrointestinal. EXAM Physical Exam Narrative Exam Narrative: Airway is intact bilateral breath sounds intact and equal MSPs in his extremities appropriate blood pressure GCS of 15. Normocephalic but has a 2 cm laceration above the right eyebrow pupils equal round reactive to light midface stable nontender chest wall nontender cervical midline no step-off deformities for that or the thoracic or lumbar spine nonpainful in those regions as well. Abdomen is soft nontender nondistended no palpable pulsatile mass pelvis is stable. He does have pain and appears some swelling at his right thumb he has 2 small skin tears on the right wrist. Abrasion to right knee Const Vital Signs: 01/20/25 05:21 01/20/25 05:21 01/20/25 07:19 Temperature 98.1 F Temperature Source Oral Pulse Rate 61 54 L Respiratory Rate 16 16 Respiratory Effort Normal Non-Labored Respiratory Depth Normal Respiratory Pattern Normal Blood Pressure 148/79 H 135/72 H Blood Pressure Mean 102 93 Pulse Ox 98 95 Oxygen Delivery Method Room Air Room Air Room Air MDM MDM MDM Narrative Medical decision making narrative: Nursing notes, triage notes, available previous documentation, and vital signs were reviewed. Any discrepancies noted were addressed. Differential Diagnoses: Make sure there is no intracranial bleed or cervical spine injury or thumb fracture Interventions: Procedure: Laceration Repair Confirmed Correct: Patient, procedure, side, site Consent: Patient, Verbal Description Length: 1.5 cm Location: Right eyebrow Shape: Linear Depth: Superficial Anesthesia: 3 mL Preparation: Sterile field Irrigation: With Hibiclens Skin Closure: 2 superficial sutures 6-0 Non-Absorbable Technique: Simple interrupted Complexity: Simple Post-procedure Examination: Normal circulation, motor, sensation. Bleeding Controlled. Procedure Complications: None Patient Tolerated: Well Total Time: 5 minutes Imaging Reviewed: Personally reviewed and interpreted by me: CT of the head I do not see any acute pathology such as bleed or mass official interpretation is agreeable to him with the CT cervical spine. My review of the patient's hand x-ray I did not see any obvious bony abnormality such as fracture or dislocation the official interpretation is also agreeable Previous Documentation Reviewed: None available or applicable at this time. ED Course: Patient presenting with mechanical fall sustaining a laceration above his right eyebrow patient underwent laceration repair tolerated well he was given return precautions follow-up recommendations he is stable for discharge as his advanced imaging was unremarkable. This note was made utilizing voice recognition software. All attempts were made to correct spelling or other errors prior to note completion. However, due to the fast-paced nature of emergency medicine, some errors may still be present. Radiography Diagnostic Testing: Clinical Impression(s) from Imaging Studies Brain CT 01/20/25 05:38 IMPRESSION: No acute intracranial abnormalities. Reading Location: [place] [id number] 01/20/25 05:38 IMPRESSION: Reduces cervical curve suggesting muscle spasm. No definite acute findings. Multilevel disc lesions. MRI correlation on routine basis would be helpful as clinically warranted Reading Location: [place] [address] Hand X-Ray 01/20/25 06:09 IMPRESSION: No acute osseous abnormalities. Reading Location: [facility] Discharge Plan Triage Chief Complaint: Fall ED Provider: Minesh Charles Dx/Rx/DC Orders Clinical Impression: Fall from standing, Laceration of eyebrow, right, Head injury, Contusion of right thumb Instructions: ED Head Injury (Adult), ED Laceration, All Closures Prescriptions: No Action omeprazole 20 mg capsule,delayed release(DR/EC) 40 mg PO DAILY PRN (Reason: ACID REFLUX) Paxlovid 150 mg (10)- 100 mg (10) tablets,dose pack 2 tab PO BID azithromycin 250 mg tablet PO codeine-guaifenesin 10-100 mg/5 mL liquid 5 ml PO 4X/DAY PRN lactulose [Constulose] 10 gram/15 mL solution 30 ml PO BID Primary Care Provider: Jared Cavazos Referrals: Jared Cavazos MD [Primary Care Provider, Family Practice] Activity Restrictions/Additional Instructions: Be sure to keep the area of the stitches clean do not scrub or scratch at it you can go ahead and run soap and water over it you can shower just make sure you dab the area clean if you start to notice redness that is streaking or pus draining from the site you should return you may need antibiotics at that point. Otherwise follow-up with your primary care. You can have the stitches taken out in 5 to 7 days Print Language: Georgian Disposition Disposition: Home, Self Care
[2025-01-20 07:19] VITALS: BP 135/72; PULSE 54; RESP 16; O2SAT 95
[2025-01-20 09:00] VITALS: BP 132/78; PULSE 78; RESP 16; TEMP 36.6; O2SAT 98
== END 2025-01-20 09:13 | disposition home or self-care (01) ==
PROVIDERS: Emergency Provider Specialist/Technologist Athletic Trainer; PCP Family Medicine; Visit Provider Specialist/Technologist Athletic Trainer
DX: S01.111A Laceration without foreign body of right eyelid and periocular area, initial encounter (principal); E78.00 Pure hypercholesterolemia, unspecified; W19.XXXA Unspecified fall, initial encounter; S60.011A Contusion of right thumb without damage to nail, initial encounter; Z87.891 Personal history of nicotine dependence; S09.90XA Unspecified injury of head, initial encounter; Z85.828 Personal history of other malignant neoplasm of skin; Z79.899 Other long term (current) drug therapy; Z90.49 Acquired absence of other specified parts of digestive tract
CPT/HCPCS: 12011; 70450; 72125; 73130; 90715; 99283